=== PATIENT | female | born 1945 | race Caucasian/White ===

== ENCOUNTER 2016-06-14 14:10 | Inpatient (IN) | payer MEDICARE ==
[~2016-06-14] VITALS: Ht 152.4 cm; Wt 63.5 kg
[~2016-06-14 14:10] MED LIST: CALC.25 PO; CALCTAB54 PO; CARD120C4 PO; CITA40 PO; FERR65TA PO; GABA100C4 PO; HYDRO PO; LACT PO; LOPE2TAB3 PO; OMEP20TA PO; ONDA8 PO; OXYC10 PO; RIVA20 PO; SUPETAB30 PO; TETR1CAP PO; XANA0.25 PO
[2016-06-14 16:00] VITALS: BP 140/67; PULSE 75; RESP 16; TEMP 96.9; O2SAT 93
--- NOTE | 2016-06-14 16:24 | PD.CAR.PN ---
CVT Progress Note Subjective/Hospital Course: 70-year-old female with a complex medical and surgical history of peripheral vascular disease and multiple related problems presents now status post BK amputation about a month half ago. Patient went to skilled nursing and apparently braced herself on the stump several times in bed in hit it against either floor or the chair not quite clear. Part of the stump opened up and at this point patient is dehiscence of skin deeper tissue seemed to be still intact. Patient will undergo debridement of the stump with wound VAC placement. Janice Olvera MD Jun 14, 2016 16:24
[2016-06-14] MEDS: SODIUM CHLOR 0.9% 1000 ML INJ 1,000 ML IV SCH (17:07)
--- NOTE | 2016-06-14 17:27 | PD.CONS ---
HPI Service [facility] Hospitalists Consult Requested By Dr. Olvera Reason for Consult Medical management Primary Care Physician Kathy Byrnes MD Diagnoses: (1) Infection of amputation stump (2) Enterocutaneous fistula (3) HTN (hypertension) History of Present Illness The patient is a 70-year-old female with a medical history significant for ischemic bowel with resection and development of chronic enterocutaneous fistula , asthma, depression, COPD, severe peripheral vascular disease status post left BKA. The patient was discharged from the hospital on 06/06/16 to a long term facility for rehabilitation. The stitches on the left stump were taken out 2 weeks ago. She reports that the wound has been opening up when she participated with physical therapy. She returned today due to wound dehiscence and infection. She was admitted by the vascular surgery service, Dr. Hill. Hospitalist service consulted for management of her complex medical issues noted above. The patient is seen in her room. She reports feeling anxious and requesting Xanax. She denies abdominal pain. She reports that the chronic enterocutaneous fistula is a lot smaller. Not draining as much. She denies any fevers. No shortness of breath or chest pain. Review of Systems Constitutional: DENIES: Fever, Chills Ears, nose, mouth, throat: DENIES: Oral lesions Respiratory: DENIES: Cough, Shortness of breath Cardiovascular: DENIES: Chest pain Gastrointestinal: DENIES: Nausea, Vomiting Genitourinary: COMPLAINS OF: Urinary incontinence Musculoskeletal: COMPLAINS OF: Joint pain Neurologic: DENIES: Headache Psychiatric: COMPLAINS OF: Anxiety Past Family Social History Allergies: Coded Allergies: Levaquin (Verified Allergy, Severe, Edema, 05/29/16) Penicillin (Unverified Allergy, Intermediate, hives, 03/10/16) Sulfa (Unverified Allergy, Intermediate, hives, 03/10/16) Past Medical History Ischemic Bowel w/ Resection and development of Enterocutaneous Fistula Short gut syndrome Asthma Depression and COPD Past Surgical History Bowel Resection 11/13/15 and 11/26/15 Left BKA Right Mastectomy Hysterectomy, Reported Medications Reported Meds & Active Scripts Active Cardizem CD 120 mg (Diltiazem CD 120 mg) 120MG/24 Cap 1 Cap PO DAILY 30 Days Tetracycline HCl 250 Mg Cap 250 Mg PO Q6HR 10 Days Gabapentin 100 Mg Cap 100 Mg PO HS 30 Days Celexa 40 Mg Tab (Citalopram Hydrobromide) 40 Mg Tab 40 Mg PO DAILY 30 Days Xanax 0.25 Mg (Alprazolam) Alprazolam 0.25 mg Tab 0.125 Mg PO Q6H PRN Rocaltrol (Calcitriol) 0.25 Mcg Cap 0.25 Mcg PO DAILY 30 Days Xarelto 20 Mg Tab (Rivaroxaban) 20 Mg Tab 20 Mg PO DAILY 30 Days OxyCONTIN ER (Oxycodone HCl) 10 Mg Tabcr 20 Mg PO Q12HR Dilaudid 2 Mg Tab (Hydromorphone Hcl) 2 Mg Tab 2 Mg PO Q4H PRN Dilaudid 4 Mg Tab (Hydromorphone Hcl) 4 Mg Tab 4 Mg PO Q4H PRN Reported Loperamide A-D (Loperamide HCl) 2 Mg Tab 2 Mg PO Q6H PRN Omeprazole 20 mg (Omeprazole) 20 Mg Tab 20 Mg PO BID Calcium 500 (Calcium-Magnesium W/ Vitamin D) Tab 1 Tab PO BID Lactinex (Lactobacillus Acidophilus) 1 Tab Tab 1 Tab PO TID Theragran M (Multivitamins/Minerals Therapeutic) 1 Tab Tab 1 Tab PO DAILY Zofran 8 Mg Tab (Ondansetron Hcl) 8 Mg Tab 8 Mg PO Q6HR PRN Feosol (Ferrous Sulfate) 65 Mg Tab 325 Mg PO DAILY Family History Reviewed and noncontributory Social History Patient denies tobacco or alcohol use. Physical Exam Vital Signs Vital Signs Date Time Temp Pulse Resp B/P Pulse Ox O2 Delivery O2 Flow Rate FiO2 06/14/16 16:00 96.9 75 16 140/67 93 Physical Exam GENERAL: Chronically ill-appearing patient. SKIN: Abdomen with 2 small enterocutaneous fistulas, minimal drainage. HEAD: Atraumatic. Normocephalic. No temporal or scalp tenderness. EYES: Pupils equal round and reactive. Extraocular motions intact. No scleral icterus. No injection or drainage. ENT: Nose without bleeding, purulent drainage or septal hematoma. Throat without erythema, tonsillar hypertrophy or exudate. Uvula midline. Airway patent. NECK: Trachea midline. No JVD or lymphadenopathy. Supple, nontender, no meningeal signs. CARDIOVASCULAR: Regular rate and rhythm without murmurs, gallops, or rubs. RESPIRATORY: Clear to auscultation. Breath sounds equal bilaterally. No wheezes , rales, or rhonchi. GASTROINTESTINAL: Abdomen soft, non-tender, nondistended. No hepato-splenomegaly , or palpable masses. No guarding. MUSCULOSKELETAL: Left BKA wound dehiscence, large area of eschar and surrounding macerated tissue and cellulitis. Very tender NEUROLOGICAL: Awake and alert. Normal speech. Assessment and Plan Problem List: (1) Infection of amputation stump Status: Acute (2) Enterocutaneous fistula Status: Chronic (3) Hypercoagulable state Status: Acute (4) HTN (hypertension) Status: Acute (5) Anxiety about health Status: Acute Assessment and Plan he patient is a 70-year-old female with a medical history significant for ischemic bowel with resection and development of chronic enterocutaneous fistula , asthma, depression, COPD, severe peripheral vascular disease status post left BKA. The patient was discharged from the hospital on 06/06/16 to a long term facility for rehabilitation. The stitches on the left stump were taken out 2 weeks ago. She reports that the wound has been opening up when she participated with physical therapy. She returned today due to wound dehiscence and infection. She was admitted by the vascular surgery service, Dr. Hill for debridement. Infected left stump: Patient status post BKA on 05/02/16. - Surgery following. Plan for debridement tomorrow. - On aztreonam and vancomycin per surgery. May need infectious disease consulted for prolonged antibiotics is anticipated based on intraoperative findings. - Pain control. Hypercoagulable state: History of ischemic bowel and severe peripheral vascular disease. - Xarelto on hold. Surgery planned for tomorrow. Will need to restart once cleared by surgery. Anxiety and depression: - Continue Celexa and Xanax. COPD: Breathing treatments as needed. GERD: Continue PPI GI prophylaxis: PPI. Stool softener PRN constipation. DVT PPx: SCD on RLE Extensive review of previous records. Labs pending at the time of this dictation. Will advise RN to call with any abnormalities. Manolo Holm MD Jun 14, 2016 17:27 DVT prophylaxis patient on IV heparin Manolo Holm MD Jun 14, 2016 17:27
[2016-06-14] MEDS ORDERED: PILL SPLITTER OTHER PRN (18:00)
[2016-06-14] MEDS ORDERED: Vancomycin Consult Pharmacy XX SCH (18:00)
[2016-06-14] MEDS ORDERED: VANCOMYCIN 500 MG/NS 100 ML IV ONE ×2 (18:00)
[2016-06-14] MEDS ORDERED: TETRACYCLINE HCL 250 MG CAP PO SCH (18:00)
[2016-06-14] MEDS: LACTOBACILLUS ACIDOPHILUS TAB PO SCH (18:05)
[2016-06-14] MEDS: ALPRAZolam 0.25 MG TAB PO PRN (18:05)
[2016-06-14 19:01] LABS: AUTOMATED NEUTROPHIL # 8.2 TH/MM3 (1.8-7.7); BASOPHIL # 0.1 TH/MM3 (0-0.2); BASOPHIL % 0.6 % (0.0-2.0); EOSINOPHIL # 0.2 TH/MM3 (0-0.4); EOSINOPHIL % 1.8 % (0.0-4.0); HEMATOCRIT 34.6 % (35.0-46.0); HEMO FLAGS DIFF FINAL; LYMPH % 21.1 % (9.0-44.0); LYMPHOCYTE # 2.5 TH/MM3 (1.0-4.8); MEAN CELL VOLUME 90.9 FL (80.0-100.0); MEAN CORPUSCULAR HEMOGLOBIN 29.5 PG (27.0-34.0); MEAN CORPUSCULAR HGB CONC 32.5 % (32.0-36.0); MONO % 6.5 % (0.0-8.0); PLATELET COUNT 517 TH/MM3 (150-450); RED BLOOD COUNT 3.81 MIL/MM3 (4.00-5.30); RED CELL DISTRIBUTION WIDTH 22.9 % (11.6-17.2); WHITE BLOOD COUNT 11.7 TH/MM3 (4.0-11.0)
[2016-06-14 19:17] LABS: APTT (PATIENT) 34.1 SEC (22.6-28.8); CALCIUM-PROTEIN CORRECTED 7.8 MG/DL (8.5-10.1); TOTAL BILIRUBIN ADULT 0.2 MG/DL (0.2-1.0)
[2016-06-14 20:00] VITALS: BP 122/62; PULSE 92; RESP 24; TEMP 100.2; O2SAT 95
[2016-06-14] MEDS: AZTREONAM 1,000 MG/NS 100 ML IV SCH ×2 (20:53)
[2016-06-14] MEDS: CALCIUM/VITAMIN D 250 MG/125 U TAB PO SCH (20:55)
[2016-06-14] MEDS: GABAPENTIN 100 MG CAP PO SCH (20:55)
[2016-06-14] MEDS: PANTOPRAZOLE SOD 20 MG DELAYED RELEASE TAB PO SCH (20:55)
[2016-06-14] MEDS: oxyCODONE/ACETAMINOPHEN 5 MG/325 MG TAB PO PRN (20:56)
[2016-06-14] MEDS: SODIUM CHLORIDE 0.9% FLUSH 5 ML FLUSH IV FLUSH SCH (20:56)
[2016-06-15] VITALS: BP 122/56; PULSE 77; RESP 20; TEMP 98.6; O2SAT 91
[2016-06-15] MEDS: AZTREONAM 1,000 MG/NS 100 ML IV SCH ×6 (04:37→21:02)
[2016-06-15 06:00] VITALS: BP 134/70; PULSE 92; RESP 20; TEMP 96.5; O2SAT 91
[2016-06-15 08:00] VITALS: BP 127/64; PULSE 87; RESP 18; TEMP 98.5; O2SAT 93
[2016-06-15] MEDS ORDERED: VANCOMYCIN INJ 600 MG in SODIUM CHLOR 0.9% 250 ML INJ 250 ML IV SCH (08:00)
[2016-06-15] MEDS: LACTOBACILLUS ACIDOPHILUS TAB PO SCH ×3 (08:16→17:36)
[2016-06-15] MEDS: ALPRAZolam 0.25 MG TAB PO PRN (08:16)
[2016-06-15] MEDS: PANTOPRAZOLE SOD 20 MG DELAYED RELEASE TAB PO SCH ×2 (08:16→21:04)
[2016-06-15] MEDS: DILTIAZEM-CD 120 MG CAP ER PO SCH (08:16)
[2016-06-15] MEDS: CALCIUM/VITAMIN D 250 MG/125 U TAB PO SCH ×2 (08:16→21:04)
[2016-06-15] MEDS: FERROUS SULFATE 325 MG (65 MG ELEMENTAL IRON) TAB PO SCH (08:17)
[2016-06-15] MEDS: CALCITRIOL 0.25 MCG CAP PO SCH (08:17)
[2016-06-15] MEDS: CITALOPRAM HYDROBROMIDE 40 MG TAB PO SCH (08:17)
[2016-06-15] MEDS: SODIUM CHLORIDE 0.9% FLUSH 5 ML FLUSH IV FLUSH SCH ×2 (08:27→21:00)
[2016-06-15] MEDS ORDERED: MULTIVITAMINS/MINERALS THERAPEUTIC TAB PO SCH (09:00)
[2016-06-15] MEDS ORDERED: DILTIAZEM-CD 120 MG CAP ER PO SCH (09:00)
--- NOTE | 2016-06-15 09:56 | EKG ---
Date Performed: 06/14/2016 Time Performed: 19:57:57 PTAGE: 70 years EKG: Sinus rhythm NONSPECIFIC ST & T-WAVE ABNORMALITY ABNORMAL ECG PREVIOUS TRACING : 05/05/2016 13.59 Since previous tracing, no significant change noted DOCTOR: Thor Granados Interpretating Date/Time 06/15/2016 09:54:32
[2016-06-15] MEDS ORDERED: BUPIVACAINE HCL PF 0.5% 30 ML VIAL ONE (10:23)
[2016-06-15] MEDS ORDERED: BACITRACIN TOP OINT 15 GM TUBE ONE (10:23)
[2016-06-15] MEDS ORDERED: ACETAMINOPHEN 1000 MG/100 ML VIAL IV ONE (10:29)
[2016-06-15] MEDS ORDERED: GENTAMICIN SULFATE 80 MG/2 ML VIAL ONE (10:30)
[2016-06-15] MEDS ORDERED: *morphine SULFATE 8 MG/ML PERIprocedure ONLY ONE ×2 (11:56→12:03)
[2016-06-15 12:00] VITALS: BP 104/53; PULSE 86; RESP 16; TEMP 97.2; O2SAT 91
[2016-06-15] MEDS: MULTIVITAMIN TAB PO SCH (12:00)
[2016-06-15] MEDS ORDERED: ONDANSETRON HCL 4 MG/2 ML VIAL IV PUSH ONE (12:00)
[2016-06-15] MEDS ORDERED: PROPOFOL 200 MG/20 ML AMP IV ONE (12:00)
[2016-06-15] MEDS ORDERED: PHENYLEPH/NS 1000 MCG/10 ML SYR IV ONE (12:00)
[2016-06-15] MEDS: SODIUM CHLOR 0.9% 1000 ML INJ 1,000 ML IV SCH (12:35)
[2016-06-15] MEDS ORDERED: DO NOT ADM ANY ANTICOAGULANT DRUGS XX PRN (12:45)
[2016-06-15] MEDS: oxyCODONE/ACETAMINOPHEN 5 MG/325 MG TAB PO PRN ×2 (13:58→19:11)
[2016-06-15] MEDS: RIVAROXABAN 20 MG TAB PO SCH (13:58)
[2016-06-15] MEDS ORDERED: MIDAZOLAM HCL 2 MG/2 ML VIAL ONE (14:13)
[2016-06-15] MEDS: HYDROmorphone HCL PF 1 MG/ML VIAL IV PUSH PRN ×2 (14:35→21:06)
[2016-06-15 16:00] VITALS: BP 126/70; PULSE 87; RESP 16; TEMP 96.8; O2SAT 91
--- NOTE | 2016-06-15 18:32 | HHI.PR ---
Subjective Remarks She reports that her LLE pain uncontrolled. Discussed with RN. No shortness of breath or chest pain. She is eating well. Status post debridement. I added IV Dilaudid. Objective Vitals Vital Signs Date Time Temp Pulse Resp B/P Pulse Ox O2 Delivery O2 Flow Rate FiO2 06/15/16 12:30 97.8 105 16 112/64 93 Nasal Cannula 3 06/15/16 12:15 108 16 124/68 94 Nasal Cannula 3 06/15/16 12:00 97.2 86 16 104/53 91 06/15/16 12:00 107 16 133/69 93 Nasal Cannula 3 06/15/16 12:00 Room Air 06/15/16 11:47 97.4 95 14 138/81 94 Nasal Cannula 3 06/15/16 08:00 Room Air 06/15/16 08:00 98.5 87 18 127/64 93 06/15/16 06:00 96.5 92 20 134/70 91 06/15/16 00:00 98.6 77 20 122/56 91 06/14/16 20:00 100.2 92 24 122/62 95 06/14/16 19:45 Room Air I/O 06/14/16 06/14/16 06/14/16 06/15/16 06/15/16 06/15/16 07:00 15:00 23:00 07:00 15:00 23:00 Intake Total 775 ml Output Total 10 ml Balance 765 ml Intake IV Total 75 ml Other 700 ml Output Urine Total 0 ml Estimated Blood Loss 10 ml # Voids 1 1 # Bowel Movements 1 2 Result Diagram: 06/14/16 18206/14/161824 Objective Remarks GENERAL: Chronically ill-appearing patient. SKIN: Abdomen with 2 small enterocutaneous fistulas, minimal drainage. CARDIOVASCULAR: Regular rate and rhythm without murmurs, gallops, or rubs. RESPIRATORY: Clear to auscultation. Breath sounds equal bilaterally. No wheezes , rales, or rhonchi. GASTROINTESTINAL: Abdomen soft, non-tender, nondistended. No hepato-splenomegaly , or palpable masses. No guarding. MUSCULOSKELETAL: Left BKA wound vac in place. Very tender NEUROLOGICAL: Awake and alert. Normal speech. Procedures Left stump debridement by Dr. Hill on 06/15/16 A/P Problem List: (1) Infection of amputation stump Status: Acute (2) Enterocutaneous fistula Status: Chronic (3) Hypercoagulable state Status: Acute (4) HTN (hypertension) Status: Acute (5) Anxiety about health Status: Acute Assessment and Plan The patient is a 70-year-old female with a medical history significant for ischemic bowel with resection and development of chronic enterocutaneous fistula , asthma, depression, COPD, severe peripheral vascular disease status post left BKA. The patient was discharged from the hospital on 06/06/16 to a residential facility for rehabilitation. The stitches on the left stump were taken out 2 weeks ago. She reports that the wound has been opening up when she participated with physical therapy. She returned due to wound dehiscence and infection. She was admitted by the vascular surgery service, Dr. Hill for debridement. Infected left stump: Patient status post BKA on 05/02/16. - Surgery following. S/P debridement. Wound cultures pending - On aztreonam and vancomycin per surgery. May need infectious disease consulted for prolonged antibiotics based on intraoperative findings. No report yet. Defer to primary team - Pain not well controlled. Dilaudid IV added to help with pain. Hypercoagulable state: History of ischemic bowel and severe peripheral vascular disease. - Xarelto restarted Anxiety and depression: - Continue Celexa and Xanax. Hypokalemia: Replace and monitor. COPD: Breathing treatments as needed. GERD: Continue PPI GI prophylaxis: PPI. Stool softener PRN constipation. DVT PPx: Manolo Chahal MD Jun 15, 2016 18:32
[2016-06-15] MEDS ORDERED: POTASSIUM CHLORIDE 10 MEQ CONTROLLED RELEASE TAB PO ONE (18:45)
[2016-06-15 20:00] VITALS: BP 110/57; PULSE 76; RESP 18; TEMP 97.8; O2SAT 94
[2016-06-15] MEDS: GABAPENTIN 100 MG CAP PO SCH (21:04)
[2016-06-15] MEDS: VANCOMYCIN INJ 750 MG in SODIUM CHLOR 0.9% 250 ML INJ 250 ML IV SCH (21:13)
[2016-06-15] MEDS: LOPERAMIDE HCL 2 MG CAP PO PRN (23:51)
[2016-06-16] VITALS: BP 132/63; PULSE 77; RESP 18; TEMP 97.2; O2SAT 92
[2016-06-16] MEDS: oxyCODONE/ACETAMINOPHEN 5 MG/325 MG TAB PO PRN ×6 (01:03→23:28)
[2016-06-16] MEDS: SODIUM CHLOR 0.9% 1000 ML INJ 1,000 ML IV SCH ×2 (02:00→19:52)
[2016-06-16] MEDS: HYDROmorphone HCL PF 1 MG/ML VIAL IV PUSH PRN ×5 (02:01→19:49)
[2016-06-16 04:00] VITALS: BP 113/56; PULSE 71; RESP 19; TEMP 96.7; O2SAT 93
[2016-06-16] MEDS: AZTREONAM 1,000 MG/NS 100 ML IV SCH ×6 (04:30→19:48)
[2016-06-16] MEDS ORDERED: PHARMACY ORDERED LAB XX ONE (07:45)
[2016-06-16 08:00] VITALS: BP 119/56; PULSE 76; RESP 18; TEMP 97.7; O2SAT 91
[2016-06-16 08:39] LABS: MEAN CELL VOLUME 90.3 FL (80.0-100.0); MEAN CORPUSCULAR HEMOGLOBIN 29.3 PG (27.0-34.0); MEAN CORPUSCULAR HGB CONC 32.5 % (32.0-36.0); PLATELET COUNT 427 TH/MM3 (150-450); RED BLOOD COUNT 3.43 MIL/MM3 (4.00-5.30); RED CELL DISTRIBUTION WIDTH 22.6 % (11.6-17.2); REVIEW FLAG FINAL; WHITE BLOOD COUNT 6.7 TH/MM3 (4.0-11.0)
[2016-06-16] MEDS: RIVAROXABAN 20 MG TAB PO SCH (08:49)
[2016-06-16] MEDS: FERROUS SULFATE 325 MG (65 MG ELEMENTAL IRON) TAB PO SCH (08:49)
[2016-06-16] MEDS: PANTOPRAZOLE SOD 20 MG DELAYED RELEASE TAB PO SCH ×2 (08:49→19:48)
[2016-06-16] MEDS: VANCOMYCIN INJ 750 MG in SODIUM CHLOR 0.9% 250 ML INJ 250 ML IV SCH (08:50)
[2016-06-16] MEDS: MULTIVITAMIN TAB PO SCH (08:50)
[2016-06-16] MEDS: CALCITRIOL 0.25 MCG CAP PO SCH (08:50)
[2016-06-16] MEDS: CALCIUM/VITAMIN D 250 MG/125 U TAB PO SCH ×2 (08:50→19:49)
[2016-06-16] MEDS: DILTIAZEM-CD 120 MG CAP ER PO SCH (08:50)
[2016-06-16] MEDS: CITALOPRAM HYDROBROMIDE 40 MG TAB PO SCH (08:50)
[2016-06-16] MEDS: LACTOBACILLUS ACIDOPHILUS TAB PO SCH ×3 (08:50→17:32)
[2016-06-16] MEDS: SODIUM CHLORIDE 0.9% FLUSH 5 ML FLUSH IV FLUSH PRN (08:53)
[2016-06-16] MEDS: SODIUM CHLORIDE 0.9% FLUSH 5 ML FLUSH IV FLUSH SCH ×2 (08:53→19:52)
[2016-06-16 09:13] LABS: BICARBONATE 27.8 MEQ/L (21.0-32.0); POTASSIUM 3.2 MEQ/L (3.5-5.1)
[2016-06-16 09:43] LABS: CALCIUM-PROTEIN CORRECTED 8.2 MG/DL (8.5-10.1)
[2016-06-16 12:00] VITALS: BP 132/77; PULSE 72; RESP 16; TEMP 96; O2SAT 93
--- NOTE | 2016-06-16 13:52 | PD.CAR.PN ---
CVT Progress Note Subjective/Hospital Course: 70-year-old female with a complex medical and surgical history of peripheral vascular disease and multiple related problems presents now status post BK amputation about a month half ago. Patient went to group home and apparently braced herself on the stump several times in bed in hit it against either floor or the chair not quite clear. Part of the stump opened up and at this point patient is dehiscence of skin deeper tissue seemed to be still intact. 06/16/16 Patient underwent yesterday debridement of the stump with wound VAC placement. The dehiscence is fortunately superficial involving skin and muscle in this as been debrided successfully while the rest of the tissues of bleeding and are viable. Wound VAC has been placed Cultures have been reviewed and antibiotics can be adjusted by medicine as appropriate We'll continue current care and patient should be able to go to group home with a wound VAC by Sunday Patient's nutritional status is very poor with a low albumen and prealbumin level and therefore nutritional evaluation and recommendations are requested I believe the patient is not taking sufficient by mouth in the group home and may need supplemental enteral or parenteral feedings at this point Objective: Vital Signs Date Time Temp Pulse Resp B/P Pulse Ox O2 Delivery O2 Flow Rate FiO2 06/16/16 08:10 Room Air 06/16/16 04:00 96.7 71 19 113/56 93 06/16/16 00:00 97.2 77 18 132/63 92 06/15/16 20:00 97.8 76 18 110/57 94 06/15/16 19:45 Room Air 06/15/16 16:00 96.8 87 16 126/70 91 Labs: Laboratory Tests Test 06/16/16 08:28 White Blood Count 6.7 TH/MM3 (4.0-11.0) Red Blood Count 3.43 MIL/MM3 (4.00-5.30) Hemoglobin 10.1 GM/DL (11.6-15.3) Hematocrit 31.0 % (35.0-46.0) Mean Corpuscular Volume 90.3 FL (80.0-100.0) Mean Corpuscular Hemoglobin 29.3 PG (27.0-34.0) Mean Corpuscular Hemoglobin 32.5 % Concent (32.0-36.0) Red Cell Distribution Width 22.6 % (11.6-17.2) Platelet Count 427 TH/MM3 (150-450) Mean Platelet Volume 7.5 FL (7.0-11.0) Sodium Level 144 MEQ/L (136-145) Potassium Level 3.2 MEQ/L (3.5-5.1) Chloride Level 110 MEQ/L (98-107) Carbon Dioxide Level 27.8 MEQ/L (21.0-32.0) Anion Gap 6 MEQ/L (5-15) Blood Urea Nitrogen 10 MG/DL (7-18) Creatinine 0.40 MG/DL (0.50-1.00) Estimat Glomerular Filtration 158 ML/MIN Rate (>89) Random Glucose 77 MG/DL (74-106) Calcium Level 7.1 MG/DL (8.5-10.1) Protein Corrected Calcium 8.2 MG/DL (8.5-10.1) Total Protein 5.0 GM/DL (6.4-8.2) Vancomycin Level Trough 18.2 MCG/ML (5.0-10.0) Result Diagram: 06/16/16 0828 06/16/16 0828 Janice Olvera MD Jun 16, 2016 13:52
--- NOTE | 2016-06-16 14:41 | MH ---
cc: SARA JOSE MD DATE OF ADMISSION: 06/14/[address] Jose. REASON FOR ADMISSION Dehiscence of the left BKA stump status post trauma. 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 The patient was in the hospital for prolonged period of time, was transferred to the [facility] with a well-healing stump. Apparently, the patient was raising herself with the stump on the mattress and then hit the stump and it just fell open. The patient now comes to my office and is being admitted to the hospital for debridement of the stump. PAST MEDICAL HISTORY Past medical history is complex and can be found on the chart. PAST SURGICAL HISTORY 1. Ischemic bowel resection. 2. Short bowel syndrome. 3. Asthma. 4. Depression. 5. Bowel resection. 6. BKA. 7. Mastectomy. 8. Hysterectomy. MEDICATION Medications can be found on the record. PHYSICAL EXAMINATION GENERAL: A pleasant 70-year-old lady in no acute distress. HEENT: Normocephalic. No trauma to the head. Pupils equally reactive. Extraocular muscles intact. The patient appears to be pale and ill. NECK: Bilateral carotid pulses. No bruits. CHEST: Bilateral breath sounds, decreased over both lung chaney consistent with COPD. HEART: Regular rhythm. ABDOMEN: Soft. Active bowel sounds. Enterocutaneous fistula is all but healed and there is minimal staining of the dressing in one area. EXTREMITIES: The patient has bilateral femoral pulses and dopplerable distal pulse on the right side with small necrotic area on the toe. On the left side the patient has a BKA stump, tissue appears to be well-perfused, however, the front of the stump where there was a closure is now dehisced. The patient has basically no healing potential in addition with her trauma to the stump, this is the result. At this point the patient will be taken to the operating room for a debridement of the stump and wound vac placement. She also requires evaluation by the nutritional service and in the face of her inadequate p.o. intake may require parenteral nutrition on a longer term basis. Inesbocaden MÉNDEZ/SOBIAL /1:54 PM /2:27 PM
[2016-06-16] MEDS: GABAPENTIN 100 MG CAP PO SCH (19:49)
--- NOTE | 2016-06-16 19:49 | HHI.PR ---
Subjective Remarks pleasant in nad concerned about this frequent infection Objective Vitals Vital Signs Date Time Temp Pulse Resp B/P Pulse Ox O2 Delivery O2 Flow Rate FiO2 06/16/16 16:00 Room Air 06/16/16 12:00 96.0 72 16 132/77 93 06/16/16 12:00 Room Air 06/16/16 08:10 Room Air 06/16/16 08:00 97.7 76 18 119/56 91 06/16/16 04:00 96.7 71 19 113/56 93 06/16/16 00:00 97.2 77 18 132/63 92 06/15/16 20:00 97.8 76 18 110/57 94 I/O 06/15/16 06/15/16 06/15/16 06/16/16 06/16/16 06/16/16 07:00 15:00 23:00 07:00 15:00 23:00 Intake Total 1135 ml 360 ml 0 ml 600 ml Output Total 110 ml 150 ml 150 ml Balance 1025 ml 360 ml -150 ml 450 ml Intake Oral 360 ml 360 ml 0 ml 600 ml IV Total 75 ml Other 700 ml Output Urine Total 100 ml 150 ml 150 ml Estimated Blood Loss 10 ml # Voids 1 2 # Bowel Movements 2 0 3 0 2 Result Diagram: 06/16/1682706/16/16827 Objective Remarks GENERAL: aao , in nad SKIN: gauze, minimal drainage. CARDIOVASCULAR: Regular rate and rhythm without murmurs, gallops, or rubs. RESPIRATORY: Clear to auscultation. Breath sounds equal bilaterally. No wheezes , rales, or rhonchi. GASTROINTESTINAL: Abdomen soft, non-tender, nondistended. No hepato-splenomegaly , or palpable masses. No guarding. MUSCULOSKELETAL: Left BKA wound vac in place. NEUROLOGICAL: Awake and alert. Normal speech. Procedures Left stump debridement by Dr. Hill on 06/15/16 A/P Problem List: (1) Infection of amputation stump Status: Acute (2) Enterocutaneous fistula Status: Chronic (3) Hypercoagulable state Status: Acute (4) HTN (hypertension) Status: Acute (5) Anxiety about health Status: Acute Assessment and Plan The patient is a 70-year-old female with a medical history significant for ischemic bowel with resection and development of chronic enterocutaneous fistula , asthma, depression, COPD, severe peripheral vascular disease status post left BKA. The patient was discharged from the hospital on 06/06/16 to a long term facility for rehabilitation. The stitches on the left stump were taken out 2 weeks ago. She reports that the wound has been opening up when she participated with physical therapy. She returned due to wound dehiscence and infection. She was admitted by the vascular surgery service, Dr. Hill for debridement. Infected left stump: Patient status post BKA on 05/02/16. - Surgery following. S/P debridement. Follow wound culture, monitor temperature - On aztreonam and vancomycin per surgery. Infectious disease consult - Pain not well controlled. Dilaudid IV added to help with pain. Hypercoagulable state: History of ischemic bowel and severe peripheral vascular disease. - Xarelto restarted Anxiety and depression: - Continue Celexa and Xanax. Hypokalemia: Replace and monitor. COPD: Breathing treatments as needed. GERD: Continue PPI GI prophylaxis: PPI. Stool softener PRN constipation. DVT PPx: Lashonda Conley MD Jun 16, 2016 19:48 Lashonda Guzman MD Jun 16, 2016 19:48
[2016-06-16 20:00] VITALS: BP 135/63; PULSE 78; RESP 18; TEMP 96.9; O2SAT 92
[2016-06-17] VITALS: BP 117/58; PULSE 70; RESP 18; TEMP 97.3; O2SAT 93
[2016-06-17] MEDS: HYDROmorphone HCL PF 1 MG/ML VIAL IV PUSH PRN ×4 (00:35→20:54)
[2016-06-17] MEDS: ALPRAZolam 0.25 MG TAB PO PRN ×2 (02:44→20:58)
[2016-06-17] MEDS ORDERED: VANCOMYCIN INJ 750 MG in SODIUM CHLOR 0.9% 250 ML INJ 250 ML IV SCH (03:00)
[2016-06-17] MEDS: oxyCODONE/ACETAMINOPHEN 5 MG/325 MG TAB PO PRN ×3 (04:11→14:17)
[2016-06-17] MEDS: AZTREONAM 1,000 MG/NS 100 ML IV SCH ×4 (04:11→11:55)
[2016-06-17 04:30] VITALS: BP 102/55; PULSE 85; RESP 20; TEMP 97.8; O2SAT 92
[2016-06-17 08:00] VITALS: BP 115/58; PULSE 78; RESP 17; TEMP 97.2; O2SAT 92
[2016-06-17] MEDS: PANTOPRAZOLE SOD 20 MG DELAYED RELEASE TAB PO SCH ×2 (08:41→20:55)
[2016-06-17] MEDS: RIVAROXABAN 20 MG TAB PO SCH (08:42)
[2016-06-17] MEDS: CITALOPRAM HYDROBROMIDE 40 MG TAB PO SCH (08:42)
[2016-06-17] MEDS: CALCIUM/VITAMIN D 250 MG/125 U TAB PO SCH ×2 (08:42→20:55)
[2016-06-17] MEDS: LACTOBACILLUS ACIDOPHILUS TAB PO SCH ×3 (08:42→18:00)
[2016-06-17] MEDS: DILTIAZEM-CD 120 MG CAP ER PO SCH (08:42)
[2016-06-17] MEDS: MULTIVITAMIN TAB PO SCH (08:42)
[2016-06-17] MEDS: CALCITRIOL 0.25 MCG CAP PO SCH (08:42)
[2016-06-17] MEDS: FERROUS SULFATE 325 MG (65 MG ELEMENTAL IRON) TAB PO SCH (08:42)
[2016-06-17] MEDS: SODIUM CHLORIDE 0.9% FLUSH 5 ML FLUSH IV FLUSH SCH ×2 (08:50→20:55)
[2016-06-17] MEDS: SODIUM CHLOR 0.9% 1000 ML INJ 1,000 ML IV SCH (11:40)
[2016-06-17 12:00] VITALS: BP 121/81; PULSE 82; RESP 18; TEMP 98.3; O2SAT 96
--- NOTE | 2016-06-17 13:48 | PD.CONS ---
History of Present Illness Service Infectious disease Consult Requested By Dr Guzman Reason for Consult Evaluate patient with infected BKA stump Primary Care Physician Kathy Byrnes MD Diagnoses: History of Present Illness Patient seen and examined. Records reviewed. The patient is a 70-year-old female with a medical history significant for ischemic bowel with resection and development of chronic enterocutaneous fistula , asthma, depression, COPD, severe peripheral vascular disease status post left BKA. The patient was discharged from the hospital on 06/06/16 to a long-term facility for rehabilitation. The stitches on the left stump were taken out 2 weeks ago. She reports that the wound has been opening up when she participated with physical therapy. She returned today due to wound dehiscence and infection. She was admitted by the vascular surgery service, Dr. Hill. Hospitalist service consulted for management of her complex medical issues noted above. The patient is seen in her room. She reports feeling anxious and requesting Xanax. She denies abdominal pain. She reports that the chronic enterocutaneous fistula is a lot smaller. Not draining as much. She denies any fevers. No shortness of breath or chest pain. Review of Systems Constitutional: DENIES: Fever, Chills, Night Sweats Eyes: DENIES: Eye pain Ears, nose, mouth, throat: DENIES: Nasal discharge, Oral lesions, Throat pain, Ear Pain, Sinus Pain, Toothache Respiratory: COMPLAINS OF: Cough, DENIES: Sputum production, Shortness of breath Cardiovascular: DENIES: Chest pain, Palpitations Gastrointestinal: COMPLAINS OF: Abdominal pain, DENIES: Diarrhea, Nausea, Vomiting Genitourinary: DENIES: Urinary incontinence, Dysuria Musculoskeletal: COMPLAINS OF: Joint pain Integumentary: DENIES: Pruritus, Rash Immunologic/allergic: DENIES: Urticaria Neurologic: DENIES: Headache Psychiatric: DENIES: Anxiety Past Family Social History Allergies: Coded Allergies: Levaquin (Verified Allergy, Severe, Edema, 05/29/16) Penicillin (Unverified Allergy, Intermediate, hives, 03/10/16) Sulfa (Unverified Allergy, Intermediate, hives, 03/10/16) Past Medical History Ischemic Bowel w/ Resection and development of Enterocutaneous Fistula Short gut syndrome Asthma Depression and COPD Past Surgical History Bowel Resection 11/13/15 and 11/26/15 Left BKA Right Mastectomy Hysterectomy, Active Ordered Medications Xanax Azactam Rocaltrol [place] Celexa Cardizem Ferrous sulfate Neurontin Dilaudid Lactinex Imodium Multivitamin Zofran Percocet Protonix Xarelto Vancomycin Social History Came from the senior care Ex-smoker Denies alcohol abuse Denies drug use Physical Exam Vital Signs Vital Signs Date Time Temp Pulse Resp B/P Pulse Ox O2 Delivery O2 Flow Rate FiO2 06/17/16 12:00 98.3 82 18 121/81 96 06/17/16 09:00 Room Air 06/17/16 08:00 97.2 78 17 115/58 92 06/17/16 04:30 97.8 85 20 102/55 92 06/17/16 00:00 97.3 70 18 117/58 93 06/16/16 20:00 96.9 78 18 135/63 92 06/16/16 19:30 Room Air 06/16/16 16:00 Room Air Physical Exam GENERAL: Patient is a well-nourished, well-developed female, awake and alert, not in respiratory distress. SKIN: Cool and dry. No generalized rash and no evidence of embolic lesions. HEAD, EYES, EARS, NOSE AND THROAT : Atraumatic. Normocephalic. [place] conjunctiva. No petechia or hemorrhage. Pupils equal and round. No scleral icterus. No injection or drainage. EOM full and intact. No nasal discharge. No sinus tenderness. Moist oral mucosa. No oral lesions noted. NECK: Trachea midline. Supple and not tender, no meningeal signs. No lymphadenopathy. CARDIOVASCULAR: Regular rate and rhythm. No murmur, no rub. RESPIRATORY: Clear to auscultation on the left side with few wheezing. There is rhonchi on the right side. Breath sounds equal bilaterally. ABDOMEN: Soft, nondistended. There is a midline scar, and there are 2 small fistula opening the upper part is larger it's probably about half a centimeter, and the lower part is about a quarter centimeter. There is tenderness on palpation of the abdomen especially in the midline. No erythema noted. Bowel sounds present and normoactive. No guarding. No rebound. No organomegaly. EXTREMITIES: RLE: No clubbing, cyanosis, or edema. No calf tenderness. The big toe has a pick color to it, no warmth. LBKA stump has wound vac in place, and the medial portion has some redness and induration, and tender on palpation. No other redness noted. No lymphangitis NEUROLOGICAL: Awake and alert. Cranial nerves grossly intact. Motor grossly within normal limits. PSYCH: Calm and cooperative LINE: Peripheral IV with no evidence of infection Laboratory Date/Time Procedure Status Source Growth 06/15/16 11:17 Gram Stain - Final Complete Wound Other 06/15/16 11:17 Wound Culture - Final Complete Klebsiella Oxytoca Esbl Pos Morganella Morganii Result Diagram: 06/16/1682706/16/16827 Assessment and Plan Assessment and Plan IMPRESSION Infection LBKA stump, C/S Klebsiella ESBL+ and Morganella - S/P debridement Multiple Abx allergy - has tolerated Cephalosporins in the past PVD Previous abdominal OR for ischemic bowel, has fistula Cough, ?PNA - has known COPD RECOMMENDATION IV Zerbaxa Micro will sensitivity testing on Zerbaxa and Avycaz Stop Vancomycin Stop Azactam CXR to evaluate cough Follow C/S Monitor progress I will determine course of Abx depending on her progress I will follow along with you Thank you for this consultation Sara Greenfield MD Jun 17, 2016 13:48
--- NOTE | 2016-06-17 14:00 | HHI.PR ---
Subjective Remarks Complained off rash on her back, and vaginal itching No fever or chills Seen by [facility], plan to remove wound VAC next week as she was told by the surgeon Objective Vitals Vital Signs Date Time Temp Pulse Resp B/P Pulse Ox O2 Delivery O2 Flow Rate FiO2 06/17/16 12:00 98.3 82 18 121/81 96 06/17/16 09:00 Room Air 06/17/16 08:00 97.2 78 17 115/58 92 06/17/16 04:30 97.8 85 20 102/55 92 06/17/16 00:00 97.3 70 18 117/58 93 06/16/16 20:00 96.9 78 18 135/63 92 06/16/16 19:30 Room Air 06/16/16 16:00 Room Air I/O 06/16/16 06/16/16 06/16/16 06/17/16 06/17/16 06/17/16 06:59 14:59 22:59 06:59 14:59 22:59 Intake Total 0 ml 600 ml 360 ml 360 ml Output Total 150 ml 150 ml 200 ml 100 ml Balance -150 ml 450 ml 160 ml 260 ml Intake Oral 0 ml 600 ml 360 ml 360 ml Output Urine Total 150 ml 150 ml 100 ml 100 ml Stool Total 100 ml # Voids 2 # Bowel Movements 0 2 1 Result Diagram: 06/16/1682706/16/16827 Objective Remarks GENERAL: aao , in nad SKIN: gauze, minimal drainage. CARDIOVASCULAR: Regular rate and rhythm without murmurs, gallops, or rubs. RESPIRATORY: Clear to auscultation. Breath sounds equal bilaterally. No wheezes , rales, or rhonchi. GASTROINTESTINAL: Abdomen soft, non-tender, nondistended. No hepato-splenomegaly , or palpable masses. No guarding. MUSCULOSKELETAL: Left BKA wound vac in place. NEUROLOGICAL: Awake and alert. Normal speech. Procedures Left stump debridement by Dr. Hill on 06/15/16 A/P Problem List: (1) Infection of amputation stump Status: Acute (2) Enterocutaneous fistula Status: Chronic (3) Hypercoagulable state Status: Acute (4) HTN (hypertension) Status: Acute (5) Anxiety about health Status: Acute Assessment and Plan D/W ID The patient is a 70-year-old female with a medical history significant for ischemic bowel with resection and development of chronic enterocutaneous fistula , asthma, depression, COPD, severe peripheral vascular disease status post left BKA. The patient was discharged from the hospital on 06/06/16 to [facility]. The stitches on the left stump were taken out 2 weeks ago. She reports that the wound has been opening up when she participated with physical therapy. She returned due to wound dehiscence and infection. She was admitted by the vascular surgery service, Dr. Hill for debridement. Infection LBKA stump, C/S Klebsiella ESBL+ and Morganella. - Surgery following. S/P debridement. Follow wound culture, monitor temperature - aztreonam and vancomycin per surgery. Changed to IV Zerbaxa per ID,Micro will sensitivity testing on Zerbaxa and Avycaz , appreciate ID consult - Pain not well controlled. Dilaudid IV added to help with pain. Vaginal itching: Danni vaginitis. Will give 1 dose of Diflucan, she will need follow up as an outpatient for further workup Hypercoagulable state: History of ischemic bowel and severe peripheral vascular disease. - Xarelto restarted Anxiety and depression: - Continue Celexa and Xanax. Hypokalemia: Replace and monitor. COPD now with worsening cough: Check chest x-ray, Breathing treatments as needed. GERD: Continue PPI GI prophylaxis: PPI. Stool softener PRN constipation. DVT PPx: Xarelto PVD Previous abdominal OR for ischemic bowel, has fistula Cough, ?PNA - has known COPD Lashonda Guzman MD Jun 17, 2016 14:00
[2016-06-17] MEDS ORDERED: FLUCONAZOLE 100 MG TAB PO ONE (14:15)
--- NOTE | 2016-06-17 14:15 | PD.CAR.PN ---
CVT Progress Note Subjective/Hospital Course: 70-year-old female with a complex medical and surgical history of peripheral vascular disease and multiple related problems presents now status post BK amputation about a month half ago. Patient went to longterm and apparently braced herself on the stump several times in bed in hit it against either floor or the chair not quite clear. Part of the stump opened up and at this point patient is dehiscence of skin deeper tissue seemed to be still intact. 06/16/16 Patient underwent yesterday debridement of the stump with wound VAC placement. The dehiscence is fortunately superficial involving skin and muscle in this as been debrided successfully while the rest of the tissues of bleeding and are viable. Wound VAC has been placed Cultures have been reviewed and antibiotics can be adjusted by medicine as appropriate We'll continue current care and patient should be able to go to longterm with a wound VAC by Sunday Patient's nutritional status is very poor with a low albumen and prealbumin level and therefore nutritional evaluation and recommendations are requested I believe the patient is not taking sufficient by mouth in the longterm and may need supplemental enteral or parenteral feedings at this point 06/17/16 I reviewed the nutritional parameters and patient's prealbumin and transferrin levels a critically low indicating severe malnutrition. Patient's healing is impaired and so is the rehabilitative potential. After reviewing to nutritional recommendations once these are made, we will decide whether patient needs an Nnseba-[id number]-Spwl placed for additional parenteral nutrition for short bowel syndrome Stump is nice and clean with minimal drainage from the wound VAC Objective: Vital Signs Date Time Temp Pulse Resp B/P Pulse Ox O2 Delivery O2 Flow Rate FiO2 06/17/16 12:00 98.3 82 18 121/81 96 06/17/16 09:00 Room Air 06/17/16 08:00 97.2 78 17 115/58 92 06/17/16 04:30 97.8 85 20 102/55 92 06/17/16 00:00 97.3 70 18 117/58 93 06/16/16 20:00 96.9 78 18 135/63 92 06/16/16 19:30 Room Air 06/16/16 16:00 Room Air Result Diagram: 06/16/1682706/16/16827 Janice Olvera MD Jun 17, 2016 14:15
[2016-06-17] MEDS: LOPERAMIDE HCL 2 MG CAP PO PRN (14:17)
--- NOTE | 2016-06-17 15:07 | RADRPT ---
EXAM DATE/TIME: 06/17/2016 14:12 [facility] COMPARISON: CHEST SINGLE AP, May 28, 2016, 16:47. INDICATIONS : Cough for 3 days MEDICAL HISTORY : None. SURGICAL HISTORY : Mastectomy, right. ENCOUNTER: Initial ACUITY: 3 days PAIN SCORE: 0/10 LOCATION: Bilateral chest FINDINGS: There is consolidation and may small pleural effusion of the right lung base. Left lung appears reaso nably clear. No pneumothorax seen. Heart size stable, upper limits of normal. CONCLUSION: Right base infiltrate and small effusion. Calixto Woodruff MD on June 17, 2016 at 15:04 Board Certified Radiologist. This report was verified electronically.
[2016-06-17 16:00] VITALS: BP 119/75; PULSE 74; RESP 18; TEMP 97.8; O2SAT 92
[2016-06-17] MEDS: CEFTOLOZANE-TAZOBACTAM INJ 1,500 MG in SODIUM CHLORIDE 0.9% INJ 100 ML IV SCH ×2 (18:45→23:47)
[2016-06-17 20:00] VITALS: BP 129/59; PULSE 78; RESP 18; TEMP 97.3; O2SAT 92
[2016-06-17] MEDS: GABAPENTIN 100 MG CAP PO SCH (20:55)
[2016-06-18 00:30] VITALS: BP 122/57; PULSE 78; RESP 18; TEMP 98.3; O2SAT 92
[2016-06-18] MEDS: oxyCODONE/ACETAMINOPHEN 5 MG/325 MG TAB PO PRN ×2 (01:36→20:59)
[2016-06-18] MEDS: ALPRAZolam 0.25 MG TAB PO PRN ×3 (02:46→20:58)
[2016-06-18] MEDS: SODIUM CHLOR 0.9% 1000 ML INJ 1,000 ML IV SCH ×2 (04:20→20:57)
[2016-06-18 04:30] VITALS: BP 119/63; PULSE 85; RESP 18; TEMP 97.9; O2SAT 92
[2016-06-18 08:00] VITALS: BP 138/67; PULSE 82; RESP 16; TEMP 98.4; O2SAT 92
[2016-06-18] MEDS: RIVAROXABAN 20 MG TAB PO SCH (08:00)
[2016-06-18] MEDS: DILTIAZEM-CD 120 MG CAP ER PO SCH (08:00)
[2016-06-18] MEDS: PANTOPRAZOLE SOD 20 MG DELAYED RELEASE TAB PO SCH ×2 (08:01→20:58)
[2016-06-18] MEDS: LACTOBACILLUS ACIDOPHILUS TAB PO SCH ×3 (08:01→16:00)
[2016-06-18] MEDS: CITALOPRAM HYDROBROMIDE 40 MG TAB PO SCH (08:01)
[2016-06-18] MEDS: FERROUS SULFATE 325 MG (65 MG ELEMENTAL IRON) TAB PO SCH (08:01)
[2016-06-18] MEDS: CALCIUM/VITAMIN D 250 MG/125 U TAB PO SCH ×2 (08:01→20:58)
[2016-06-18] MEDS: CALCITRIOL 0.25 MCG CAP PO SCH (08:01)
[2016-06-18] MEDS: MULTIVITAMIN TAB PO SCH (08:01)
[2016-06-18] MEDS: HYDROmorphone HCL PF 1 MG/ML VIAL IV PUSH PRN ×2 (08:02→23:54)
[2016-06-18] MEDS: CEFTOLOZANE-TAZOBACTAM INJ 1,500 MG in SODIUM CHLORIDE 0.9% INJ 100 ML IV SCH ×3 (08:06→23:34)
[2016-06-18] MEDS: SODIUM CHLORIDE 0.9% FLUSH 5 ML FLUSH IV FLUSH SCH ×2 (08:07→20:57)
--- NOTE | 2016-06-18 09:11 | HHI.IDPN ---
Subjective Subjective Remarks Notes reviewed Temps ok Wound vac in place Dr Sergio ramirez reviewed - infection not down to bone; subcutaneous and muscle Zerbaxa and Avycaz testing pending Cough same CXR with R base infiltrate and effusion Antibiotics Zerbaxa Lines Peripheral IV Past Medical History Ischemic Bowel w/ Resection and development of Enterocutaneous Fistula Short gut syndrome Asthma Depression and COPD Past Surgical History Bowel Resection 11/13/15 and 11/26/15 Left BKA Right Mastectomy Hysterectomy, Allergies: Coded Allergies: Levaquin (Verified Allergy, Severe, Edema, 05/29/16) Penicillin (Unverified Allergy, Intermediate, hives, 03/10/16) Sulfa (Unverified Allergy, Intermediate, hives, 03/10/16) Objective . Vital Signs Date Time Temp Pulse Resp B/P Pulse Ox O2 Delivery O2 Flow Rate FiO2 06/18/16 07:44 Room Air 06/18/16 04:30 97.9 85 18 119/63 92 06/18/16 04:00 Room Air 06/18/16 00:30 98.3 78 18 122/57 92 06/18/16 00:00 Room Air 06/17/16 20:00 Room Air 06/17/16 20:00 97.3 78 18 129/59 92 06/17/16 16:00 97.8 74 18 119/75 92 06/17/16 12:00 98.3 82 18 121/81 96 06/17/16 06/17/16 06/18/16 15:00 23:00 07:00 Intake Total 750 ml 240 ml 1001 ml Output Total 120 ml Balance 750 ml 120 ml 1001 ml Intake Oral 750 ml 240 ml 240 ml IV Total 761 ml Output Urine Total 120 ml # Voids 4 3 # Bowel Movements 4 0 1 . Microbiology Date/Time Procedure Status Source Growth 06/15/16 11:17 Gram Stain - Final Complete Wound Other 06/15/16 11:17 Wound Culture - Final Complete Klebsiella Oxytoca Esbl Pos Morganella Morganii Imaging Chest X-Ray 06/17/16 0000 Signed Impressions: Service Date/Time: Friday, June 17, 2016 14:12 - CONCLUSION: Right base infiltrate and small effusion. Calixto Woodruff MD Physical Exam GENERAL: awake and alert, not in respiratory distress. SKIN: Cool and dry. No generalized rash and no evidence of embolic lesions. HEENT: [place] conjunctiva. No petechia or hemorrhage. No scleral icterus. Moist oral mucosa. NECK: Supple and not tender, no meningeal signs. No lymphadenopathy. CARDIOVASCULAR: Regular rate and rhythm. No murmur, no rub. RESPIRATORY: Clear to auscultation on the left side. There is rhonchi on the right side. ABDOMEN: Soft, nondistended. There is a midline scar, and there are 2 small fistula opening the upper part is larger it's probably about half a centimeter, and the lower part is about a quarter centimeter. There is tenderness on palpation of the abdomen especially in the midline. No erythema noted. Bowel sounds present and normoactive. No guarding. No rebound. No organomegaly. EXTREMITIES: LBKA stump has wound vac in place, and the medial portion has some redness and induration, and tender on palpation. No other redness noted. No lymphangitis NEUROLOGICAL: Grossly non-focal PSYCH: Calm and cooperative LINE: Peripheral IV with no evidence of infection Assessment & Plan Remarks IMPRESSION Infection LBKA stump, C/S Klebsiella ESBL+ and Morganella - S/P debridement Multiple Abx allergy - has tolerated Cephalosporins in the past PVD Previous abdominal OR for ischemic bowel, has fistula Cough, PNA - has known COPD - has R base infiltrate RECOMMENDATION Continue IV Zerbaxa Micro will sensitivity testing on Zerbaxa and Avycaz Monitor progress Will D/W Dr Sergio Chapman C/S Sara Greenfield MD Jun 18, 2016 09:11
[2016-06-18 12:00] VITALS: BP 119/58; PULSE 79; RESP 18; TEMP 98.5; O2SAT 93
[2016-06-18] MEDS ORDERED: PHARMACY ORDERED LAB XX ONE (14:45)
--- NOTE | 2016-06-18 15:26 | HHI.PR ---
Subjective Remarks Patient having discomfort in her lower back and buttock which is erythematous and moist, discussed with the nurse. We'll hold on the moisturizer, just to powder Awaiting wound care, may need a different mattress and to rollover in bed frequently Objective Vitals Vital Signs Date Time Temp Pulse Resp B/P Pulse Ox O2 Delivery O2 Flow Rate FiO2 06/18/16 12:00 98.5 79 18 119/58 93 06/18/16 08:00 98.4 82 16 138/67 92 06/18/16 07:44 Room Air 06/18/16 04:30 97.9 85 18 119/63 92 06/18/16 04:00 Room Air 06/18/16 00:30 98.3 78 18 122/57 92 06/18/16 00:00 Room Air 06/17/16 20:00 Room Air 06/17/16 20:00 97.3 78 18 129/59 92 06/17/16 16:00 97.8 74 18 119/75 92 I/O 06/17/16 06/17/16 06/17/16 06/18/16 06/18/16 06/18/16 07:00 15:00 23:00 07:00 15:00 23:00 Intake Total 360 ml 750 ml 240 ml 1001 ml Output Total 100 ml 120 ml Balance 260 ml 750 ml 120 ml 1001 ml Intake Oral 360 ml 750 ml 240 ml 240 ml IV Total 761 ml Output Urine Total 100 ml 120 ml # Voids 2 4 3 # Bowel Movements 1 4 0 1 Result Diagram: 06/16/1682706/16/16827 Objective Remarks GENERAL: Awake, alert, oriented, in no acute distress SKIN: Wound VAC with gauze on the left thumb, erythematous moist. Skin on the upper buttock and lower back. CARDIOVASCULAR: Regular rate and rhythm without murmurs, gallops, or rubs. RESPIRATORY: Clear to auscultation. Breath sounds equal bilaterally. No wheezes , rales, or rhonchi. GASTROINTESTINAL: Abdomen soft, non-tender, nondistended. No hepato-splenomegaly , or palpable masses. No guarding. MUSCULOSKELETAL: Left BKA wound vac in place. NEUROLOGICAL: Awake and alert. Normal speech. Procedures Left stump debridement by Dr. Hill on 06/15/16 A/P Problem List: (1) Infection of amputation stump Status: Acute (2) Enterocutaneous fistula Status: Chronic (3) Hypercoagulable state Status: Acute (4) HTN (hypertension) Status: Acute (5) Anxiety about health Status: Acute Assessment and Plan The patient is a 70-year-old female with a medical history significant for ischemic bowel with resection and development of chronic enterocutaneous fistula , asthma, depression, COPD, severe peripheral vascular disease status post left BKA. The patient was discharged from the hospital on 06/06/16 to a senior care facility for rehabilitation. The stitches on the left stump were taken out 2 weeks ago. She reports that the wound has been opening up when she participated with physical therapy. She returned due to wound dehiscence and infection. She was admitted by the vascular surgery service, Dr. Hill for debridement. Infection LBKA stump, C/S Klebsiella ESBL+ and Morganella. - Surgery following. S/P debridement. Follow wound culture, monitor temperature - aztreonam and vancomycin per surgery. Changed to IV Zerbaxa per ID,Micro will sensitivity testing on Zerbaxa and Avycaz , appreciate ID consult - Pain not well controlled. Dilaudid IV added to help with pain. Malnutrition, moderate calorie insufficiency: Consult dietitian Check prealbumin Decision for port insertion for parenteral nutrition per surgery Vaginal itching: Danni vaginitis. Will give 1 dose of Diflucan, she will need follow up as an outpatient for further workup Hypercoagulable state: History of ischemic bowel and severe peripheral vascular disease. - Xarelto restarted Anxiety and depression: - Continue Celexa and Xanax. Hypokalemia: Replace and monitor. COPD now with worsening cough: Check chest x-ray, Breathing treatments as needed. GERD: Continue PPI GI prophylaxis: PPI. Stool softener PRN constipation. DVT PPx: Xarelto PVD Previous abdominal OR for ischemic bowel, has fistula Lashonda Guzman MD Jun 18, 2016 15:26 Lashonda Guzman MD Jun 18, 2016 15:26
[2016-06-18] MEDS: LOPERAMIDE HCL 2 MG CAP PO PRN (15:54)
[2016-06-18 16:00] VITALS: BP 129/61; PULSE 67; RESP 18; TEMP 98; O2SAT 92
[2016-06-18] MEDS ORDERED: POTASSIUM CHLORIDE 10 MEQ CONTROLLED RELEASE TAB PO ONE (16:00)
[2016-06-18 20:30] VITALS: BP 139/64; PULSE 80; RESP 18; TEMP 97.1; O2SAT 93
[2016-06-18] MEDS: GABAPENTIN 100 MG CAP PO SCH (20:59)
[2016-06-19] VITALS: BP 122/60; PULSE 78; RESP 18; TEMP 97.5; O2SAT 94
[2016-06-19] MEDS: MAGNESIUM SULFATE 1 GM PREMIX 100 ML IV SCH ×2 (02:07→02:48)
[2016-06-19] MEDS: oxyCODONE/ACETAMINOPHEN 5 MG/325 MG TAB PO PRN ×4 (02:47→18:31)
[2016-06-19] MEDS: ALPRAZolam 0.25 MG TAB PO PRN ×2 (02:47→21:10)
[2016-06-19 04:30] VITALS: BP 149/72; PULSE 81; RESP 18; TEMP 97.1; O2SAT 92
[2016-06-19] MEDS: SODIUM CHLOR 0.9% 1000 ML INJ 1,000 ML IV SCH (05:25)
[2016-06-19 08:00] VITALS: BP 135/65; PULSE 77; RESP 20; TEMP 96.5; O2SAT 92
[2016-06-19] MEDS: SODIUM CHLORIDE 0.9% FLUSH 5 ML FLUSH IV FLUSH SCH ×2 (09:00→20:37)
[2016-06-19] MEDS: RIVAROXABAN 20 MG TAB PO SCH (09:00)
[2016-06-19] MEDS: DILTIAZEM-CD 120 MG CAP ER PO SCH (09:09)
[2016-06-19] MEDS: CALCIUM/VITAMIN D 250 MG/125 U TAB PO SCH ×2 (09:09→20:34)
[2016-06-19] MEDS: MULTIVITAMIN TAB PO SCH (09:10)
[2016-06-19] MEDS: CALCITRIOL 0.25 MCG CAP PO SCH (09:10)
[2016-06-19] MEDS: CITALOPRAM HYDROBROMIDE 40 MG TAB PO SCH (09:10)
[2016-06-19] MEDS: LACTOBACILLUS ACIDOPHILUS TAB PO SCH ×3 (09:10→18:31)
[2016-06-19] MEDS: FERROUS SULFATE 325 MG (65 MG ELEMENTAL IRON) TAB PO SCH (09:10)
[2016-06-19] MEDS: PANTOPRAZOLE SOD 20 MG DELAYED RELEASE TAB PO SCH ×2 (09:10→20:36)
[2016-06-19] MEDS: CEFTOLOZANE-TAZOBACTAM INJ 1,500 MG in SODIUM CHLORIDE 0.9% INJ 100 ML IV SCH (09:15)
[2016-06-19] MEDS: HYDROmorphone HCL PF 1 MG/ML VIAL IV PUSH PRN ×3 (10:47→20:38)
[2016-06-19 12:00] VITALS: BP 142/62; PULSE 79; RESP 20; TEMP 97.4; O2SAT 93
--- NOTE | 2016-06-19 13:07 | HHI.PR ---
Subjective Remarks No acute issue, I advised her to roll over in bed every 2 hours Fungal infection on the lower back Objective Vitals Vital Signs Date Time Temp Pulse Resp B/P Pulse Ox O2 Delivery O2 Flow Rate FiO2 06/19/16 08:00 96.5 77 20 135/65 92 06/19/16 04:30 97.1 81 18 149/72 92 06/19/16 04:00 Room Air 06/19/16 00:00 97.5 78 18 122/60 94 06/19/16 00:00 Room Air 06/19/16 00:00 Room Air 06/18/16 20:30 97.1 80 18 139/64 93 06/18/16 20:00 Room Air 06/18/16 16:00 98.0 67 18 129/61 92 I/O 06/18/16 06/18/16 06/18/16 06/19/16 06/19/16 06/19/16 07:00 15:00 23:00 07:00 15:00 23:00 Intake Total 1001 ml 240 ml 1949 ml Output Total 300 ml Balance 1001 ml 240 ml 1649 ml Intake Oral 240 ml 240 ml 360 ml IV Total 761 ml 1589 ml Output Urine Total 300 ml # Voids 3 3 2 # Bowel Movements 1 3 1 Result Diagram: 06/16/1682706/16/16827 Objective Remarks GENERAL: Awake, alert, oriented, in no acute distress SKIN: Wound VAC with gauze on the left thumb, erythematous moist. Skin on the upper buttock and lower back. CARDIOVASCULAR: Regular rate and rhythm without murmurs, gallops, or rubs. RESPIRATORY: Clear to auscultation. Breath sounds equal bilaterally. No wheezes , rales, or rhonchi. GASTROINTESTINAL: Abdomen soft, non-tender, nondistended. No hepato-splenomegaly , or palpable masses. No guarding. MUSCULOSKELETAL: Left BKA wound vac in place. NEUROLOGICAL: Awake and alert. Normal speech. Procedures Left stump debridement by Dr. Hill on 06/15/16 A/P Problem List: (1) Infection of amputation stump Status: Acute (2) Enterocutaneous fistula Status: Chronic (3) Hypercoagulable state Status: Acute (4) HTN (hypertension) Status: Acute (5) Anxiety about health Status: Acute Assessment and Plan The patient is a 70-year-old female with a medical history significant for ischemic bowel with resection and development of chronic enterocutaneous fistula , asthma, depression, COPD, severe peripheral vascular disease status post left BKA. The patient was discharged from the hospital on 06/06/16 to [facility] [facility]. The stitches on the left stump were taken out 2 weeks ago. She reports that the wound has been opening up when she participated with physical therapy. She returned due to wound dehiscence and infection. She was admitted by the vascular surgery service, Dr. Hill for debridement. Infection LBKA stump, C/S Klebsiella ESBL+ and Morganella. - Surgery following. S/P debridement. Follow wound culture, monitor temperature - aztreonam and vancomycin per surgery. Changed to IV Zerbaxa per ID,Micro will sensitivity testing on Zerbaxa and Avycaz , appreciate ID consult - Pain not well controlled. Dilaudid IV added to help with pain. COPD now with worsening cough and R PNA: Breathing treatments as needed. On antibiotic ID per ID Malnutrition, moderate calorie insufficiency: Consult dietitian Prealbumin 5 Decision for port insertion for parenteral nutrition per surgery Lower back fungal skin infection: Nystatin cream Vaginal itching: Danni vaginitis. Will give 1 dose of Diflucan, she will need follow up as an outpatient for further workup Hypercoagulable state: History of ischemic bowel and severe peripheral vascular disease. - Xarelto restarted Anxiety and depression: - Continue Celexa and Xanax. Hypokalemia: Replace and monitor. GERD: Continue PPI GI prophylaxis: PPI. Stool softener PRN constipation. DVT PPx: Xarelto PVD Previous abdominal OR for ischemic bowel, has fistula Lashonda Guzman MD Jun 19, 2016 13:07
--- NOTE | 2016-06-19 13:28 | PD.CAR.PN ---
CVT Progress Note Subjective/Hospital Course: 70-year-old female with a complex medical and surgical history of peripheral vascular disease and multiple related problems presents now status post BK amputation about a month half ago. [facility] to [facility] and apparently braced herself on the stump several times in bed in hit it against either floor or the chair not quite clear. Part of the stump opened up and at this point patient is dehiscence of skin deeper tissue seemed to be still intact. 06/16/16 Patient underwent yesterday debridement of the stump with wound VAC placement. The dehiscence is fortunately superficial involving skin and muscle in this as been debrided successfully while the rest of the tissues of bleeding and are viable. Wound VAC has been placed Cultures have been reviewed and antibiotics can be adjusted by medicine as appropriate We'll continue current care and patient should be able to go to [facility] with a wound VAC by Sunday Patient's nutritional status is very poor with a low albumen and prealbumin level and therefore nutritional evaluation and recommendations are requested I believe the patient is not taking sufficient by mouth in the [facility] and may need supplemental enteral or parenteral feedings at this point 06/17/16 I reviewed the nutritional parameters and patient's prealbumin and transferrin levels a critically low indicating severe malnutrition. Patient's healing is impaired and so is the rehabilitative potential. After reviewing to nutritional recommendations once these are made, we will decide whether patient needs an Fyllij-j-Myua placed for additional parenteral nutrition for short bowel syndrome Stump is nice and clean with minimal drainage from the wound VAC 06/19/16 Still awaiting nutritional consult and evaluation for patient has short gut syndrome and will probably need additional parenteral feedings. If so patient will need Hyeevh-x-Hhkr placement for additional feedings Patient is taking excellent by mouth but despite that her nutritional status is poor and hence the healing issues Left BKA stump incision is clean and wound VAC is in place with minimal drainage and will need to be changed today Awaiting wound care to change the wound VAC. Infectious disease help is much appreciated Objective: Vital Signs Date Time Temp Pulse Resp B/P Pulse Ox O2 Delivery O2 Flow Rate FiO2 06/19/16 08:00 96.5 77 20 135/65 92 06/19/16 04:30 97.1 81 18 149/72 92 06/19/16 04:00 Room Air 06/19/16 00:00 97.5 78 18 122/60 94 06/19/16 00:00 Room Air 06/19/16 00:00 Room Air 06/18/16 20:30 97.1 80 18 139/64 93 06/18/16 20:00 Room Air 06/18/16 16:00 98.0 67 18 129/61 92 Result Diagram: 06/16/16 0828 06/16/16 0828 Janice Olvera MD Jun 19, 2016 13:28
[2016-06-19] MEDS: NYSTATIN 100,000 UNIT/GM CREAM 15 GM TOPICAL SCH ×2 (15:34→20:38)
[2016-06-19 16:00] VITALS: BP 132/70; PULSE 65; RESP 20; TEMP 96.9; O2SAT 93
[2016-06-19 20:00] VITALS: BP 122/61; PULSE 67; RESP 18; TEMP 97.5; O2SAT 92
[2016-06-19] MEDS: GABAPENTIN 100 MG CAP PO SCH (20:35)
[2016-06-19] MEDS: LOPERAMIDE HCL 2 MG CAP PO PRN (20:36)
[2016-06-20] VITALS (11 sets, daily range): BP systolic 128–168; BP diastolic 65–84; PULSE 68–89; RESP 16–20; TEMP 96.6–98; O2SAT 92–99
[2016-06-20] MEDS: CEFTOLOZANE-TAZOBACTAM INJ 1,500 MG in SODIUM CHLORIDE 0.9% INJ 100 ML IV SCH ×3 (00:51→08:00)
[2016-06-20] MEDS: oxyCODONE/ACETAMINOPHEN 5 MG/325 MG TAB PO PRN (00:52)
[2016-06-20] MEDS: SODIUM CHLOR 0.9% 1000 ML INJ 1,000 ML IV SCH ×2 (05:08→23:16)
[2016-06-20] MEDS ORDERED: MIDAZOLAM HCL 5 MG/5 ML VIAL ONE (08:48)
[2016-06-20] MEDS ORDERED: fentaNYL CITRATE 250 MCG/5 ML AMP ONE (08:49)
[2016-06-20] MEDS: NYSTATIN 100,000 UNIT/GM CREAM 15 GM TOPICAL SCH ×2 (09:00→21:58)
[2016-06-20] MEDS: SODIUM CHLORIDE 0.9% FLUSH 5 ML FLUSH IV FLUSH SCH ×2 (09:00→22:36)
[2016-06-20] MEDS ORDERED: LIDOCAINE 1%/EPINEPHrine 1:100,000 SOLN 30 ML VIAL ONE (09:02)
[2016-06-20] MEDS ORDERED: VANCOMYCIN INJ 1,000 MG in SODIUM CHLOR 0.9% 250 ML INJ 250 ML IV ONE (10:00)
--- NOTE | 2016-06-20 11:32 | PD.RAD ---
Post Procedure Progress Note Pre Procedure Diagnosis: (1) Enterocutaneous fistula Post Procedure Diagnosis: (1) Enterocutaneous fistula Procedure Date: Jun 20, 2016 Supervising Radiologist: Kevan Salgado JR Proceduralist/Assist: Margaret Peters, RT(R)(), Patti Ellison RT(R)() Anesthesia: Conscious Sedation Plan of Activity Patient to Unit: [facility] Patient Condition: Good See PACS Report for procedural detail/treatment Central Venous Access Device Procedure 1 Left Internal Jugular Infusaport Placement single lumen Tamazight: 8 Findings: Port placed. In good position. Functions well. Ok to use. Plan F/U with IR or a physician in 10-14 days for a site check Jr. Damian,Kevan Trejo MD Jun 20, 2016 11:32
[2016-06-20] MEDS: LACTOBACILLUS ACIDOPHILUS TAB PO SCH ×3 (13:00→17:52)
[2016-06-20] MEDS: HYDROmorphone HCL PF 1 MG/ML VIAL IV PUSH PRN ×3 (13:39→20:49)
--- NOTE | 2016-06-20 14:42 | HHI.PR ---
Subjective Remarks Patient eating lunch from home, brought to her by a friend Denied complain, stated her back, skin rash not showing much improvement Vaginal itching relatively improving No fever or chills Objective Vitals Vital Signs Date Time Temp Pulse Resp B/P Pulse Ox O2 Delivery O2 Flow Rate FiO2 06/20/16 12:20 71 16 144/77 97 06/20/16 12:16 97.5 80 20 156/82 94 06/20/16 11:20 72 18 148/77 97 06/20/16 10:50 68 18 140/84 99 06/20/16 10:20 73 18 135/65 97 06/20/16 10:05 97.6 83 18 136/79 92 06/20/16 09:00 93 Room Air 06/20/16 08:43 97.5 80 20 156/82 94 06/20/16 04:00 96.7 82 18 133/76 94 06/20/16 00:00 96.6 89 18 128/78 93 06/19/16 20:00 Room Air 06/19/16 20:00 97.5 67 18 122/61 92 06/19/16 16:00 96.9 65 20 132/70 93 I/O 06/19/16 06/19/16 06/19/16 06/20/16 06/20/16 06/20/16 07:00 15:00 23:00 07:00 15:00 23:00 Intake Total 1949 ml 360 ml 360 ml 360 ml Output Total 300 ml Balance 1649 ml 360 ml 360 ml 360 ml Intake Oral 360 ml 360 ml 360 ml 360 ml IV Total 1589 ml Output Urine Total 300 ml # Voids 2 4 2 1 # Bowel Movements 1 4 2 0 Result Diagram: 06/16/1682706/16/16827 Objective Remarks GENERAL: Awake, alert, oriented, in no acute distress SKIN: Wound VAC with gauze on the left thumb, erythematous moist. Skin on the upper buttock and lower back. CARDIOVASCULAR: Regular rate and rhythm without murmurs, gallops, or rubs. RESPIRATORY: Clear to auscultation. Breath sounds equal bilaterally. No wheezes , rales, or rhonchi. GASTROINTESTINAL: Abdomen soft, non-tender, nondistended. No hepato-splenomegaly , or palpable masses. No guarding. MUSCULOSKELETAL: Left BKA wound vac in place. NEUROLOGICAL: Awake and alert. Normal speech. Procedures Left stump debridement by Dr. Hill on 06/15/16 A/P Problem List: (1) Infection of amputation stump Status: Acute (2) Enterocutaneous fistula Status: Chronic (3) Hypercoagulable state Status: Acute (4) HTN (hypertension) Status: Acute (5) Anxiety about health Status: Acute Assessment and Plan The patient is a 70-year-old female with a medical history significant for ischemic bowel with resection and development of chronic enterocutaneous fistula , asthma, depression, COPD, severe peripheral vascular disease status post left BKA. The patient was discharged from the hospital on 06/06/16 to a assisted facility for rehabilitation. The stitches on the left stump were taken out 2 weeks ago. She reports that the wound has been opening up when she participated with physical therapy. She returned due to wound dehiscence and infection. She was admitted by the vascular surgery service, Dr. Hill for debridement. Infection LBKA stump, C/S Klebsiella ESBL+ and Morganella. - Surgery following. S/P debridement. Follow wound culture, monitor temperature - aztreonam and vancomycin per surgery. Changed to IV Zerbaxa per ID,Micro will sensitivity testing on Zerbaxa and Avycaz , appreciate ID consult - Pain not well controlled. Dilaudid IV added to help with pain. Malnutrition, moderate calorie insufficiency: Consult dietitian and follow in the Low prealbumin. 5 Decision for port insertion for parenteral nutrition per surgery Vaginal itching: Danni vaginitis. Will give 1 dose of Diflucan, she will need follow up as an outpatient for further workup Hypercoagulable state: History of ischemic bowel and severe peripheral vascular disease. - Xarelto restarted Anxiety and depression: - Continue Celexa and Xanax. Electrolyte imbalance with hypokalemia and hypomagnesemia: Check BMP and magnesium level today and replete as needed Replace and monitor. COPD now with worsening cough: chest x-ray review, Breathing treatments as needed. GERD: Continue PPI GI prophylaxis: PPI. Stool softener PRN constipation. DVT PPx: Xarelto PVD Previous abdominal OR for ischemic bowel, has fistula Lashonda Guzman MD Jun 20, 2016 14:42
[2016-06-20] MEDS: FERROUS SULFATE 325 MG (65 MG ELEMENTAL IRON) TAB PO SCH (15:15)
[2016-06-20] MEDS: CITALOPRAM HYDROBROMIDE 40 MG TAB PO SCH (15:15)
[2016-06-20] MEDS: DILTIAZEM-CD 120 MG CAP ER PO SCH (15:15)
[2016-06-20] MEDS: CALCIUM/VITAMIN D 250 MG/125 U TAB PO SCH ×2 (15:15→22:01)
[2016-06-20] MEDS: CALCITRIOL 0.25 MCG CAP PO SCH (15:15)
[2016-06-20] MEDS: PANTOPRAZOLE SOD 20 MG DELAYED RELEASE TAB PO SCH ×2 (15:15→22:02)
[2016-06-20] MEDS: MULTIVITAMIN TAB PO SCH (15:16)
[2016-06-20] MEDS ORDERED: MISCELLANEOUS PHARMACY INFORMATION XX PRN (15:30)
[2016-06-20] MEDS ORDERED: ASP: Documented ESBL, MDR A baumannii or P. aeruginosa XX PRN (15:30)
--- NOTE | 2016-06-20 15:48 | RADRPT ---
EXAM DATE/TIME: 06/20/2016 08:53 [facility] COMPARISON: No previous studies available for comparison. INDICATIONS : Patient with recent leg amputation in need of port placement for parenteral feedings. History right m astectomy. MEDICAL HISTORY : 1.GERD 2.PVD 3.DVT 4.Asthma SURGICAL HISTORY : 1.Right mastectomy 2.Bowel resection 3.Left leg amputation ENCOUNTER: Initial ACUITY: 2 months PAIN SCORE: 10/10 LOCATION: Left leg. FLUORO TIME: 0.4 minutes SEDATION TIME: 30 minutes ACCESS: Left internal jugular vein SEDATION: 1.) 5 mg midazolam (Versed) IV 2.) 250 mcg fentanyl (Sublimaze) IV Prophylactic antibiotics were administered with appropriate pre-procedure timing. Vancomycin within 2 hours of procedure, Ancef (or alternative) within 1 hour of procedure. DEVICE: 1. 8 [place] single lumen Bard Power Port PROCEDURE : 1. Continuous pulse oximetry and EKG monitoring. 2. Intravenous conscious sedation. 3. Ultrasound guidance for venous access. 4. Fluoroscopic guided implantable central venous port placement. The patient was placed supine. The neck was prepped in sterile fashion. Full sterile technique was u sed, including cap, mask, sterile gloves and gown, and a large sterile sheet. Hand hygiene and 2% ch lorhexidine Betadine was utilized per protocol for cutaneous antisepsis with appropriate dry time for site. The skin and subcutaneous tissues were infiltrated with local anesthetic solution. Under direct ultrasound guidance, central venous access was accomplished in the targeted vessel. The ultrasound images depicting access guidance were stored and saved to PACS for permanent record. A s ubcutaneous pocket was created using blunt dissection. The port was introduced to the pocket. The c atheter tubing was fed through a subcutaneous tunnel to the venotomy site. The catheter tubing was c ut to a suitable length and then was introduced through a valved Peel-Away sheath and positioned with catheter tubing tip at the cavo-atrial junction level. The pocket incision was closed with subcutic ular Vicryl suture. Steri-Strips were applied. The port was flushed and locked with heparin solutio n per protocol. Sterile dressing was applied to the site. The patient tolerated the procedure well. Conscious sedation was performed with the prescribed dosages and duration as above. The patient terry ated the procedure well and there were no complications. EKG and oximetry remained stable throughout the procedure. The patient was sent to post anesthesia recovery in stable condition. CONCLUSION: Uncomplicated ultrasound and fluoroscopic guided implanted central venous port catheter placement as described in detail above. An 8 [place] Power port was placed. Kevan Salgado Jr., MD on June 20, 2016 at 15:44 Board Certified Radiologist. This report was verified electronically.
--- NOTE | 2016-06-20 17:22 | PD.CAR.PN ---
CVT Progress Note Subjective/Hospital Course: 70-year-old female with a complex medical and surgical history of peripheral vascular disease and multiple related problems presents now status post BK amputation about a month half ago. Patient went to prison and apparently braced herself on the stump several times in bed in hit it against either floor or the chair not quite clear. Part of the stump opened up and at this point patient is dehiscence of skin deeper tissue seemed to be still intact. 06/16/16 Patient underwent yesterday debridement of the stump with wound VAC placement. The dehiscence is fortunately superficial involving skin and muscle in this as been debrided successfully while the rest of the tissues of bleeding and are viable. Wound VAC has been placed Cultures have been reviewed and antibiotics can be adjusted by medicine as appropriate We'll continue current care and patient should be able to go to prison with a wound VAC by Sunday Patient's nutritional status is very poor with a low albumen and prealbumin level and therefore nutritional evaluation and recommendations are requested I believe the patient is not taking sufficient by mouth in the prison and may need supplemental enteral or parenteral feedings at this point 06/17/16 I reviewed the nutritional parameters and patient's prealbumin and transferrin levels a critically low indicating severe malnutrition. Patient's healing is impaired and so is the rehabilitative potential. After reviewing to nutritional recommendations once these are made, we will decide whether patient needs an Paerki-o-Vhfn placed for additional parenteral nutrition for short bowel syndrome Stump is nice and clean with minimal drainage from the wound VAC 06/19/16 Still awaiting nutritional consult and evaluation for patient has short gut syndrome and will probably need additional parenteral feedings. If so patient will need Zfiqwm-h-Vckz placement for additional feedings Patient is taking excellent by mouth but despite that her nutritional status is poor and hence the healing issues Left BKA stump incision is clean and wound VAC is in place with minimal drainage and will need to be changed today Awaiting wound care to change the wound VAC. Infectious disease help is much appreciated 06/20/2016 Patient doing well at this time. Stump is clean and the wound VAC will be changed today Patient had Pyrcsm-n-Inzq placed by radiology for supplemental parenteral feedings. Grateful for the nutritional evaluation. Patient will be placed on TPN at about the 1500 non-protein calories a day split about 60-70% in glucose and about 30% in form of lipids Patient will likely have to be discharged on supplemental TPN in face of her short bowel syndrome Objective: Vital Signs Date Time Temp Pulse Resp B/P Pulse Ox O2 Delivery O2 Flow Rate FiO2 06/20/16 16:44 96.6 78 19 168/77 97 06/20/16 12:20 71 16 144/77 97 06/20/16 12:16 97.5 80 20 156/82 94 06/20/16 11:20 72 18 148/77 97 06/20/16 10:50 68 18 140/84 99 06/20/16 10:20 73 18 135/65 97 06/20/16 10:05 97.6 83 18 136/79 92 06/20/16 09:00 93 Room Air 06/20/16 08:43 97.5 80 20 156/82 94 06/20/16 04:00 96.7 82 18 133/76 94 06/20/16 00:00 96.6 89 18 128/78 93 06/19/16 20:00 Room Air 06/19/16 20:00 97.5 67 18 122/61 92 Result Diagram: 06/16/1628 06/16/16827 Janice Olvera MD Jun 20, 2016 17:22
[2016-06-20 18:49] LABS: BICARBONATE 24.6 MEQ/L (21.0-32.0); MAGNESIUM 1.2 MG/DL (1.5-2.5)
[2016-06-20 19:34] LABS: POTASSIUM 2.9 MEQ/L (3.5-5.1)
[2016-06-20] MEDS ORDERED: POTASSIUM CHLORIDE 20 MEQ CONTROLLED RELEASE TAB PO ONE (21:00)
[2016-06-20] MEDS: GABAPENTIN 100 MG CAP PO SCH (22:02)
[2016-06-20] MEDS: FAT EMULSION 20% INJ 250 ML (Daily over 8 hours) IV-CENTRAL SCH (22:03)
[2016-06-20] MEDS: CLINIMIX E 4.25/25 1000 mL- </= 42 mls/hr IV-CENTRAL SCH ×3 (22:13)
[2016-06-20] MEDS: ERTAPENEM INJ 1,000 MG in SODIUM CHLORIDE 0.9% INJ 100 ML IV SCH (22:32)
[2016-06-21] VITALS: BP 155/74; PULSE 83; RESP 20; TEMP 96; O2SAT 92
[2016-06-21] MEDS: oxyCODONE/ACETAMINOPHEN 5 MG/325 MG TAB PO PRN ×5 (00:14→20:52)
[2016-06-21] MEDS: ALPRAZolam 0.25 MG TAB PO PRN ×2 (00:14→20:43)
[2016-06-21 04:00] VITALS: BP 147/76; PULSE 79; RESP 16; TEMP 97.6; O2SAT 92
[2016-06-21] MEDS: HYDROmorphone HCL PF 1 MG/ML VIAL IV PUSH PRN ×4 (05:07→23:52)
[2016-06-21] MEDS: SODIUM CHLORIDE 0.9% FLUSH 5 ML FLUSH IV FLUSH PRN (05:07)
[2016-06-21 07:47] LABS: BICARBONATE 27.4 MEQ/L (21.0-32.0); POTASSIUM 3.1 MEQ/L (3.5-5.1)
[2016-06-21 08:05] LABS: CALCIUM-PROTEIN CORRECTED 8.2 MG/DL (8.5-10.1)
[2016-06-21 08:08] VITALS: BP 155/79; PULSE 86; RESP 18; TEMP 97.9; O2SAT 94
[2016-06-21] MEDS: CALCITRIOL 0.25 MCG CAP PO SCH (08:36)
[2016-06-21] MEDS: LACTOBACILLUS ACIDOPHILUS TAB PO SCH ×3 (08:36→16:53)
[2016-06-21] MEDS: RIVAROXABAN 20 MG TAB PO SCH (08:36)
[2016-06-21] MEDS: CALCIUM/VITAMIN D 250 MG/125 U TAB PO SCH ×2 (08:36→20:43)
[2016-06-21] MEDS: DILTIAZEM-CD 120 MG CAP ER PO SCH (08:36)
[2016-06-21] MEDS: PANTOPRAZOLE SOD 20 MG DELAYED RELEASE TAB PO SCH ×2 (08:36→20:43)
[2016-06-21] MEDS: CITALOPRAM HYDROBROMIDE 40 MG TAB PO SCH (08:37)
[2016-06-21] MEDS: SODIUM CHLORIDE 0.9% FLUSH 5 ML FLUSH IV FLUSH SCH ×2 (08:37→20:45)
[2016-06-21] MEDS: FERROUS SULFATE 325 MG (65 MG ELEMENTAL IRON) TAB PO SCH (08:37)
[2016-06-21] MEDS: NYSTATIN 100,000 UNIT/GM CREAM 15 GM TOPICAL SCH ×2 (08:38→20:46)
[2016-06-21 12:23] VITALS: BP 136/69; PULSE 79; RESP 18; TEMP 97.2; O2SAT 93
--- NOTE | 2016-06-21 13:02 | HHI.PR ---
Subjective Remarks Patient reported doing well no acute complain I discussed with the nurse about abdominal wound from previous ostomy, Dr. Hill has looked at it and recommended to continue current care Objective Vitals Vital Signs Date Time Temp Pulse Resp B/P Pulse Ox O2 Delivery O2 Flow Rate FiO2 06/21/16 12:23 97.2 79 18 136/69 93 06/21/16 08:08 97.9 86 18 155/79 94 06/21/16 04:00 97.6 79 16 147/76 92 06/21/16 00:00 96.0 83 20 155/74 92 06/20/16 20:00 Room Air 06/20/16 20:00 98.0 82 18 152/72 96 06/20/16 16:44 96.6 78 19 168/77 97 I/O 06/20/16 06/20/16 06/20/16 06/21/16 06/21/16 06/21/16 07:00 15:00 23:00 07:00 15:00 23:00 Intake Total 360 ml 0 ml 240 ml 240 ml Balance 360 ml 0 ml 240 ml 240 ml Intake Oral 360 ml 0 ml 240 ml 240 ml # Voids 1 3 3 2 # Bowel Movements 0 0 4 0 Result Diagram: 06/21/16 0636 Objective Remarks GENERAL: Awake, alert, oriented, in no acute distress SKIN: Wound VAC with gauze on the left thumb, erythematous moist. Skin on the upper buttock and lower back. CARDIOVASCULAR: Regular rate and rhythm without murmurs, gallops, or rubs. RESPIRATORY: Clear to auscultation. Breath sounds equal bilaterally. No wheezes , rales, or rhonchi. GASTROINTESTINAL: Abdomen soft, non-tender, nondistended. No hepato-splenomegaly , or palpable masses. No guarding. MUSCULOSKELETAL: Left BKA wound vac in place. NEUROLOGICAL: Awake and alert. Normal speech. Procedures Left stump debridement by Dr. Hill on 06/15/16 A/P Problem List: (1) Infection of amputation stump Status: Acute (2) Enterocutaneous fistula Status: Chronic (3) Hypercoagulable state Status: Acute (4) HTN (hypertension) Status: Acute (5) Anxiety about health Status: Acute Assessment and Plan Daily update & Mngmt TPN started by surgery to support nutritional status Will DC IV fluid Hypokalemia and hypocalcemia: We'll replete iv and recheck level in a.m., close monitoring. She is on TPN. A/P: The patient is a 70-year-old female with a medical history significant for ischemic bowel with resection and development of chronic enterocutaneous fistula , asthma, depression, COPD, severe peripheral vascular disease status post left BKA. The patient was [facility] from the [facility]06/[facility] The stitches on the left stump were taken out 2 weeks ago. She reports that the wound has been opening up when she participated with physical therapy. She returned due to wound dehiscence and infection. She was admitted by the vascular surgery service, Dr. Hill for debridement. Infection LBKA stump, C/S Klebsiella ESBL+ and Morganella. - Surgery following. S/P debridement. Follow wound culture, monitor temperature - aztreonam and vancomycin per surgery. Changed to IV Zerbaxa per ID,Micro will sensitivity testing on Zerbaxa and Avycaz , appreciate ID consult - Pain not well controlled. Dilaudid IV added to help with pain. Malnutrition, moderate calorie insufficiency: Consult dietitian and follow in the Low prealbumin. 5 Decision for port insertion for parenteral nutrition per surgery Vaginal itching: Danni vaginitis. Will give 1 dose of Diflucan, she will need follow up as an outpatient for further workup Hypercoagulable state: History of ischemic bowel and severe peripheral vascular disease. - Xarelto restarted Anxiety and depression: - Continue Celexa and Xanax. Electrolyte imbalance with hypokalemia and hypomagnesemia: Monitor BMP and magnesium level today and replete as needed Replace and monitor. COPD now with worsening cough: chest x-ray review, Breathing treatments as needed. GERD: Continue PPI GI prophylaxis: PPI. Stool softener PRN constipation. DVT PPx: Xarelto PVD Previous abdominal OR for ischemic bowel, has fistula Lashonda Guzman MD Jun 21, 2016 13:02
[2016-06-21] MEDS ORDERED: POTASSIUM CHLORIDE 10 MEQ CONTROLLED RELEASE TAB PO ONE (13:15)
[2016-06-21] MEDS: MAGNESIUM SULFATE 1 GM PREMIX 100 ML IV SCH ×2 (13:35→14:32)
--- NOTE | 2016-06-21 14:12 | PD.CAR.PN ---
CVT Progress Note Subjective/Hospital Course: 70-year-old female with a complex medical and surgical history of peripheral vascular disease and multiple related problems presents now status post BK amputation about a month half ago. Patient went to senior care and apparently braced herself on the stump several times in bed in hit it against either floor or the chair not quite clear. Part of the stump opened up and at this point patient is dehiscence of skin deeper tissue seemed to be still intact. 06/16/16 Patient underwent yesterday debridement of the stump with wound VAC placement. The dehiscence is fortunately superficial involving skin and muscle in this as been debrided successfully while the rest of the tissues of bleeding and are viable. Wound VAC has been placed Cultures have been reviewed and antibiotics can be adjusted by medicine as appropriate We'll continue current care and patient should be able to go to senior care with a wound VAC by Sunday Patient's nutritional status is very poor with a low albumen and prealbumin level and therefore nutritional evaluation and recommendations are requested I believe the patient is not taking sufficient by mouth in the senior care and may need supplemental enteral or parenteral feedings at this point 06/17/16 I reviewed the nutritional parameters and patient's prealbumin and transferrin levels a critically low indicating severe malnutrition. Patient's healing is impaired and so is the rehabilitative potential. After reviewing to nutritional recommendations once these are made, we will decide whether patient needs an Rfqhsv-t-Knum placed for additional parenteral nutrition for short bowel syndrome Stump is nice and clean with minimal drainage from the wound VAC 06/19/16 Still awaiting nutritional consult and evaluation for patient has short gut syndrome and will probably need additional parenteral feedings. If so patient will need Akkaoc-w-Pmol placement for additional feedings Patient is taking excellent by mouth but despite that her nutritional status is poor and hence the healing issues Left BKA stump incision is clean and wound VAC is in place with minimal drainage and will need to be changed today Awaiting wound care to change the wound VAC. Infectious disease help is much appreciated 06/20/2016 Patient doing well at this time. Stump is clean and the wound VAC will be changed today Patient had Mkmtss-t-Ojyr placed by radiology for supplemental parenteral feedings. Grateful for the nutritional evaluation. Patient will be placed on TPN at about the 1500 non-protein calories a day split about 60-70% in glucose and about 30% in form of lipids Patient will likely have to be discharged on supplemental TPN in face of her short bowel syndrome 06/21/16 Patient is doing really well at this time She's taking good by mouth diet. 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 There is some granulation tissue which may eventually need to be debrided but at this point I would leave it alone. Stump wound VAC has been changed and this is clean and granulating nicely. Patient is currently on TPN which tolerating well. In face of her short bowel syndrome patient will need TPN after discharge from the hospital. Grateful to case management for making arrangements for the same Objective: Vital Signs Date Time Temp Pulse Resp B/P Pulse Ox O2 Delivery O2 Flow Rate FiO2 06/21/16 12:23 97.2 79 18 136/69 93 06/21/16 08:08 97.9 86 18 155/79 94 06/21/16 08:00 Room Air 06/21/16 04:00 97.6 79 16 147/76 92 06/21/16 00:00 96.0 83 20 155/74 92 06/20/16 20:00 Room Air 06/20/16 20:00 98.0 82 18 152/72 96 06/20/16 16:44 96.6 78 19 168/77 97 Labs: Laboratory Tests Test 06/21/16 06:36 Sodium Level 146 MEQ/L (136-145) Potassium Level 3.1 MEQ/L (3.5-5.1) Chloride Level 113 MEQ/L (98-107) Carbon Dioxide Level 27.4 MEQ/L (21.0-32.0) Anion Gap 6 MEQ/L (5-15) Blood Urea Nitrogen 2 MG/DL (7-18) Creatinine 0.45 MG/DL (0.50-1.00) Estimat Glomerular Filtration 138 ML/MIN Rate (>89) Random Glucose 129 MG/DL (74-106) Calcium Level 6.9 MG/DL (8.5-10.1) Protein Corrected Calcium 8.2 MG/DL (8.5-10.1) Total Protein 4.6 GM/DL (6.4-8.2) Result Diagram: 06/21/16 0636 Janice Olvera MD Jun 21, 2016 14:11
[2016-06-21 16:02] VITALS: BP 121/65; PULSE 86; RESP 17; TEMP 98.5; O2SAT 92
[2016-06-21] MEDS: ERTAPENEM INJ 1,000 MG in SODIUM CHLORIDE 0.9% INJ 100 ML IV SCH (17:16)
[2016-06-21] MEDS: GABAPENTIN 100 MG CAP PO SCH (20:43)
[2016-06-21] MEDS: FAT EMULSION 20% INJ 250 ML (Daily over 8 hours) IV-CENTRAL SCH (20:53)
[2016-06-21] MEDS: CLINIMIX E 4.25/25 1000 mL- </= 42 mls/hr IV-CENTRAL SCH ×3 (20:55)
[2016-06-21 21:03] VITALS: BP 141/73; PULSE 72; RESP 18; TEMP 96.5; O2SAT 94
[2016-06-22 00:45] VITALS: BP 116/60; PULSE 94; RESP 18; TEMP 97.9; O2SAT 93
[2016-06-22 04:00] VITALS: BP 137/76; PULSE 95; RESP 18; TEMP 97.2; O2SAT 93
[2016-06-22] MEDS: oxyCODONE/ACETAMINOPHEN 5 MG/325 MG TAB PO PRN (04:13)
[2016-06-22] MEDS: RESP: ALBUTEROL 2.5 MG/IPRATROPIUM 0.5 MG NEB (PRN) NEB (05:21)
[2016-06-22] MEDS: ALPRAZolam 0.25 MG TAB PO PRN (05:52)
[2016-06-22 08:00] VITALS: BP 129/64; PULSE 108; RESP 16; TEMP 98.4; O2SAT 92
[2016-06-22] MEDS: RIVAROXABAN 20 MG TAB PO SCH (08:37)
[2016-06-22] MEDS: CALCITRIOL 0.25 MCG CAP PO SCH (08:37)
[2016-06-22] MEDS: PANTOPRAZOLE SOD 20 MG DELAYED RELEASE TAB PO SCH ×2 (08:37→21:10)
[2016-06-22] MEDS: CITALOPRAM HYDROBROMIDE 40 MG TAB PO SCH (08:38)
[2016-06-22] MEDS: LACTOBACILLUS ACIDOPHILUS TAB PO SCH ×3 (08:38→17:12)
[2016-06-22] MEDS: FERROUS SULFATE 325 MG (65 MG ELEMENTAL IRON) TAB PO SCH (08:38)
[2016-06-22] MEDS: DILTIAZEM-CD 120 MG CAP ER PO SCH (08:38)
[2016-06-22] MEDS: HYDROmorphone HCL PF 1 MG/ML VIAL IV PUSH PRN ×3 (08:39→21:20)
[2016-06-22] MEDS: CALCIUM/VITAMIN D 250 MG/125 U TAB PO SCH ×2 (08:39→21:10)
[2016-06-22] MEDS: SODIUM CHLORIDE 0.9% FLUSH 5 ML FLUSH IV FLUSH SCH ×2 (09:00→21:00)
[2016-06-22] MEDS: NYSTATIN 100,000 UNIT/GM CREAM 15 GM TOPICAL SCH ×2 (09:00→21:00)
[2016-06-22 12:00] VITALS: BP 147/71; PULSE 102; RESP 18; TEMP 98; O2SAT 93
--- NOTE | 2016-06-22 13:18 | HHI.PR ---
Subjective Remarks Stated she feels better. No fever or chills, pain in her stump, stated Percocet 5, is not touching it, increased to 7.5 Objective Vitals Vital Signs Date Time Temp Pulse Resp B/P Pulse Ox O2 Delivery O2 Flow Rate FiO2 06/22/16 08:00 98.4 108 16 129/64 92 06/22/16 04:00 Room Air 06/22/16 04:00 97.2 95 18 137/76 93 06/22/16 00:45 97.9 94 18 116/60 93 06/21/16 21:03 96.5 72 18 141/73 94 06/21/16 20:00 Room Air 06/21/16 16:02 98.5 86 17 121/65 92 06/21/16 16:00 Room Air I/O 06/21/16 06/21/16 06/21/16 06/22/16 06/22/16 06/22/16 07:00 15:00 23:00 07:00 15:00 23:00 Intake Total 240 ml 637 ml 773 ml Balance 240 ml 637 ml 773 ml Intake Oral 240 ml IV Total 637 ml TPN/PPN 523 ml Lipid 250 ml # Voids 2 0 2 # Bowel Movements 0 0 0 Result Diagram: 06/21/16 0636 Objective Remarks GENERAL: Awake, alert, oriented, in no acute distress SKIN: Wound VAC with gauze on the left thumb, erythematous moist. Skin on the upper buttock and lower back. CARDIOVASCULAR: Regular rate and rhythm without murmurs, gallops, or rubs. RESPIRATORY: Clear to auscultation. Breath sounds equal bilaterally. No wheezes , rales, or rhonchi. GASTROINTESTINAL: Abdomen soft, non-tender, nondistended. No hepato-splenomegaly , or palpable masses. No guarding. MUSCULOSKELETAL: Left BKA wound vac in place. NEUROLOGICAL: Awake and alert. Normal speech. Procedures Left stump debridement by Dr. Hill on 06/15/16 A/P Problem List: (1) Infection of amputation stump Status: Acute (2) Enterocutaneous fistula Status: Chronic (3) Hypercoagulable state Status: Acute (4) HTN (hypertension) Status: Acute (5) Anxiety about health Status: Acute Assessment and Plan Daily update & Mngmt 06/22 Hypomagnesemia and hypokalemia, on TPN and replacement, BMP today pending check in a.m. Patient getting Dilaudid as a breakthrough, discussed with the nurse, will replace with Percocet and taper Dilaudid Appreciated Dr. Hill surgery follow A/P: The patient is a 70-year-old female with a medical history significant for ischemic bowel with resection and development of chronic enterocutaneous fistula , asthma, depression, COPD, severe peripheral vascular disease status post left BKA. The patient was discharged from the hospital on 06/06/16 to a intermediate facility for rehabilitation. The stitches on the left stump were taken out 2 weeks ago. She reports that the wound has been opening up when she participated with physical therapy. She returned due to wound dehiscence and infection. She was admitted by the vascular surgery service, Dr. Hill for debridement. Infection LBKA stump, C/S Klebsiella ESBL+ and Morganella. - Surgery following. S/P debridement. Follow wound culture, monitor temperature - aztreonam and vancomycin per surgery. Changed to IV Zerbaxa per ID,Micro will sensitivity testing on Zerbaxa and Avycaz , appreciate ID consult - Pain not well controlled. Dilaudid IV added to help with pain. Malnutrition, moderate calorie insufficiency: Consult dietitian and follow in the Low prealbumin. 5 Decision for port insertion for parenteral nutrition per surgery Vaginal itching: Danni vaginitis. Will give 1 dose of Diflucan, she will need follow up as an outpatient for further workup Hypercoagulable state: History of ischemic bowel and severe peripheral vascular disease. - Xarelto restarted Anxiety and depression: - Continue Celexa and Xanax. Electrolyte imbalance with hypokalemia and hypomagnesemia: Monitor BMP and magnesium level today and replete as needed Replace and monitor. COPD now with worsening cough: chest x-ray review, Breathing treatments as needed. GERD: Continue PPI GI prophylaxis: PPI. Stool softener PRN constipation. DVT PPx: Xarelto PVD Previous abdominal OR for ischemic bowel, has fistula Lashonda Guzman MD Jun 22, 2016 13:18
--- NOTE | 2016-06-22 14:12 | PD.CAR.PN ---
CVT Progress Note Subjective/Hospital Course: 70-year-old female with a complex medical and surgical history of peripheral vascular disease and multiple related problems presents now status post BK amputation about a month half ago. Patient went to [facility] and apparently braced herself on the stump several times in bed in hit it against either floor or the chair not quite clear. Part of the stump opened up and at this point patient is dehiscence of skin deeper tissue seemed to be still intact. 06/16/16 Patient underwent yesterday debridement of the stump with wound VAC placement. The dehiscence is fortunately superficial involving skin and muscle in this as been debrided successfully while the rest of the tissues of bleeding and are viable. Wound VAC has been placed Cultures have been reviewed and antibiotics can be adjusted by medicine as appropriate We'll continue current care and patient should be able to go to [facility] with a wound VAC by Sunday Patient's nutritional status is very poor with a low albumen and prealbumin level and therefore nutritional evaluation and recommendations are requested I believe the patient is not taking sufficient by mouth in the [facility] and may need supplemental enteral or parenteral feedings at this point 06/17/16 I reviewed the nutritional parameters and patient's prealbumin and transferrin levels a critically low indicating severe malnutrition. Patient's healing is impaired and so is the rehabilitative potential. After reviewing to nutritional recommendations once these are made, we will decide whether patient needs an Vazbee-r-Ytdi placed for additional parenteral nutrition for short bowel syndrome Stump is nice and clean with minimal drainage from the wound VAC 06/19/16 Still awaiting nutritional consult and evaluation for patient has short gut syndrome and will probably need additional parenteral feedings. If so patient will need Rxsism-c-Zpcr placement for additional feedings Patient is taking excellent by mouth but despite that her nutritional status is poor and hence the healing issues Left BKA stump incision is clean and wound VAC is in place with minimal drainage and will need to be changed today Awaiting wound care to change the wound VAC. Infectious disease help is much appreciated 06/20/2016 Patient doing well at this time. Stump is clean and the wound VAC will be changed today Patient had Ejaunf-v-Qovh placed by radiology for supplemental parenteral feedings. Grateful for the nutritional evaluation. Patient will be placed on TPN at about the 1500 non-protein calories a day split about 60-70% in glucose and about 30% in form of lipids Patient will likely have to be discharged on supplemental TPN in face of her short bowel syndrome 06/21/16 Patient is doing really well at this time She's taking good by mouth diet. 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 There is some granulation tissue which may eventually need to be debrided but at this point I would leave it alone. Stump wound VAC has been changed and this is clean and granulating nicely. Patient is currently on TPN which tolerating well. In face of her short bowel syndrome patient will need TPN after discharge from the hospital. Grateful to case management for making arrangements for the same 06/22/16 Vital signs stable patient is doing well. Her appetite has improved and patient is taking good by mouth diet and having regular bowel movements. The abdominal incision is completely healed and fistula has completely resolved. The BKA wound VAC has been changed and wound is clean and granulating nicely. Ljtobm-a-Snjt is being used for additional parenteral feedings necessary and short bowel syndrome and patient will be discharged on TPN. Objective: Vital Signs Date Time Temp Pulse Resp B/P Pulse Ox O2 Delivery O2 Flow Rate FiO2 06/22/16 12:00 Room Air 06/22/16 12:00 98.0 102 18 147/71 93 06/22/16 08:00 98.4 108 16 129/64 92 06/22/16 04:00 Room Air 06/22/16 04:00 97.2 95 18 137/76 93 06/22/16 00:45 97.9 94 18 116/60 93 06/21/16 21:03 96.5 72 18 141/73 94 06/21/16 20:00 Room Air 06/21/16 16:02 98.5 86 17 121/65 92 06/21/16 16:00 Room Air Labs: Laboratory Tests Test 06/22/16 07:17 Magnesium Level 1.8 MG/DL (1.5-2.5) Result Diagram: 06/21/16 0636 Janice Olvera MD Jun 22, 2016 14:12
[2016-06-22] MEDS: oxyCODONE/ACETAMINOPHEN 7.5 MG/325 MG TAB PO PRN ×2 (14:52→18:20)
[2016-06-22 16:00] VITALS: BP 124/59; PULSE 95; RESP 18; TEMP 97.9; O2SAT 91
[2016-06-22 17:15] LABS: BICARBONATE 28.7 MEQ/L (21.0-32.0); POTASSIUM 3.2 MEQ/L (3.5-5.1)
[2016-06-22 17:35] LABS: CALCIUM-PROTEIN CORRECTED 8.6 MG/DL (8.5-10.1)
--- NOTE | 2016-06-22 18:47 | HHI.PR ---
Subjective Remarks Patient reports continuing pain on the left stop. She denies fevers or chills. She is tolerating her diet. Objective Vitals Vital Signs Date Time Temp Pulse Resp B/P Pulse Ox O2 Delivery O2 Flow Rate FiO2 06/22/16 16:00 97.9 95 18 124/59 91 06/22/16 12:00 Room Air 06/22/16 12:00 98.0 102 18 147/71 93 06/22/16 08:00 98.4 108 16 129/64 92 06/22/16 04:00 Room Air 06/22/16 04:00 97.2 95 18 137/76 93 06/22/16 00:45 97.9 94 18 116/60 93 06/21/16 21:03 96.5 72 18 141/73 94 06/21/16 20:00 Room Air I/O 06/21/16 06/21/16 06/21/16 06/22/16 06/22/16 06/22/16 07:00 15:00 23:00 07:00 15:00 23:00 Intake Total 240 ml 637 ml 773 ml 379 ml Balance 240 ml 637 ml 773 ml 379 ml Intake Oral 240 ml IV Total 637 ml 379 ml TPN/PPN 523 ml Lipid 250 ml # Voids 2 0 2 # Bowel Movements 0 0 0 Result Diagram: 06/22/16 1626 Objective Remarks GENERAL: Chronically ill-appearing patient. SKIN: Abdomen with 2 small enterocutaneous fistulas, minimal drainage. CARDIOVASCULAR: Regular rate and rhythm without murmurs, gallops, or rubs. RESPIRATORY: Clear to auscultation. Breath sounds equal bilaterally. No wheezes , rales, or rhonchi. GASTROINTESTINAL: Abdomen soft, non-tender, nondistended. No hepato-splenomegaly , or palpable masses. No guarding. MUSCULOSKELETAL: Left BKA wound vac in place. Very tender NEUROLOGICAL: Awake and alert. Normal speech. Procedures Left stump debridement by Dr. Hill on 06/15/16 A/P Problem List: (1) Infection of amputation stump Status: Acute (2) Enterocutaneous fistula Status: Chronic (3) Hypercoagulable state Status: Acute (4) HTN (hypertension) Status: Acute (5) Anxiety about health Status: Acute Assessment and Plan The patient is a 70-year-old female with a medical history significant for ischemic bowel with resection and development of chronic enterocutaneous fistula , asthma, depression, COPD, severe peripheral vascular disease status post left BKA. The patient was discharged from the hospital on 06/06/16 to a senior care facility for rehabilitation. The stitches on the left stump were taken out 2 weeks ago. She reports that the wound has been opening up when she participated with physical therapy. She returned due to wound dehiscence and infection. She was admitted by the vascular surgery service, Dr. Hill for debridement. Infected left stump: Patient status post BKA on 05/02/16. - Surgery following. S/P debridement. Wound cultures pending - IV Zerbaxa per ID, Micro with sensitivity testing on Zerbaxa and Avycaz - Dilaudid IV to help with pain. Increase Percocet Hypercoagulable state: History of ischemic bowel and severe peripheral vascular disease. - Xarelto restarted Malnutrition, moderate calorie insufficiency: Patient has an Vxltgr-a-Xfmy and is on TPN per surgery. Vaginal itching: Danni vaginitis. Status post 1 dose of Diflucan, she will need follow up as an outpatient for further workup Anxiety and depression: - Continue Celexa and Xanax. Hypokalemia: Replace and monitor. COPD: Breathing treatments as needed. GERD: Continue PPI GI prophylaxis: PPI. Stool softener PRN constipation. DVT PPx: Manolo Chahal MD Jun 22, 2016 18:47
[2016-06-22] MEDS: ERTAPENEM INJ 1,000 MG in SODIUM CHLORIDE 0.9% INJ 100 ML IV SCH (19:57)
[2016-06-22 20:00] VITALS: BP 135/68; PULSE 88; RESP 18; TEMP 98.2; O2SAT 92
[2016-06-22] MEDS: GABAPENTIN 100 MG CAP PO SCH (21:10)
[2016-06-22] MEDS: POTASSIUM CHLOR 10 MEQ PREMIX 100 ML IV SCH ×3 (21:11→23:49)
[2016-06-22] MEDS: FAT EMULSION 20% INJ 250 ML (Daily over 8 hours) IV-CENTRAL SCH (21:13)
[2016-06-22] MEDS: CLINIMIX E 4.25/25 1000 mL- </= 42 mls/hr IV-CENTRAL SCH ×3 (21:14)
[2016-06-23] VITALS: BP 125/67; PULSE 90; RESP 18; TEMP 98.2; O2SAT 94
[2016-06-23] MEDS: oxyCODONE/ACETAMINOPHEN 10 MG/325 MG TAB PO PRN ×4 (01:36→18:03)
[2016-06-23] MEDS: RESP: ALBUTEROL 2.5 MG/IPRATROPIUM 0.5 MG NEB (PRN) NEB ×2 (02:14→22:01)
[2016-06-23 04:00] VITALS: BP 133/69; PULSE 105; RESP 18; TEMP 97.1; O2SAT 93
[2016-06-23] MEDS: HYDROmorphone HCL PF 1 MG/ML VIAL IV PUSH PRN ×4 (06:09→21:21)
[2016-06-23 07:03] LABS: BICARBONATE 29.1 MEQ/L (21.0-32.0); POTASSIUM 3.1 MEQ/L (3.5-5.1)
[2016-06-23 08:00] VITALS: BP 134/68; PULSE 104; RESP 18; TEMP 98.1; O2SAT 93
[2016-06-23] MEDS: CALCIUM/VITAMIN D 250 MG/125 U TAB PO SCH ×2 (08:05→21:20)
[2016-06-23] MEDS: RIVAROXABAN 20 MG TAB PO SCH (08:06)
[2016-06-23] MEDS: DILTIAZEM-CD 120 MG CAP ER PO SCH (08:06)
[2016-06-23] MEDS: PANTOPRAZOLE SOD 20 MG DELAYED RELEASE TAB PO SCH ×2 (08:06→21:20)
[2016-06-23] MEDS: LACTOBACILLUS ACIDOPHILUS TAB PO SCH ×3 (08:07→18:01)
[2016-06-23] MEDS: CALCITRIOL 0.25 MCG CAP PO SCH (08:07)
[2016-06-23] MEDS: FERROUS SULFATE 325 MG (65 MG ELEMENTAL IRON) TAB PO SCH (08:07)
[2016-06-23] MEDS: CITALOPRAM HYDROBROMIDE 40 MG TAB PO SCH (08:07)
[2016-06-23] MEDS: SODIUM CHLORIDE 0.9% FLUSH 5 ML FLUSH IV FLUSH SCH ×2 (08:14→21:23)
[2016-06-23] MEDS: ALPRAZolam 0.25 MG TAB PO PRN (08:21)
[2016-06-23] MEDS: NYSTATIN 100,000 UNIT/GM CREAM 15 GM TOPICAL SCH ×2 (09:00→21:57)
--- NOTE | 2016-06-23 11:52 | HHI.PR ---
Subjective Remarks Patient reports that her pain is controlled with the medications. No fevers or chills. Tolerating her diet. Objective Vitals Vital Signs Date Time Temp Pulse Resp B/P Pulse Ox O2 Delivery O2 Flow Rate FiO2 06/23/16 08:00 98.1 104 18 134/68 93 06/23/16 07:15 Room Air 06/23/16 04:00 Room Air 06/23/16 04:00 97.1 105 18 133/69 93 06/23/16 02:00 Room Air 06/23/16 00:00 98.2 90 18 125/67 94 06/22/16 20:00 98.2 88 18 135/68 92 06/22/16 20:00 Room Air 06/22/16 16:00 97.9 95 18 124/59 91 06/22/16 12:00 Room Air 06/22/16 12:00 98.0 102 18 147/71 93 I/O 06/22/16 06/22/16 06/22/16 06/23/16 06/23/16 06/23/16 07:00 15:00 23:00 07:00 15:00 23:00 Intake Total 773 ml 379 ml 240 ml 240 ml Balance 773 ml 379 ml 240 ml 240 ml Intake Oral 240 ml 240 ml IV Total 379 ml TPN/PPN 523 ml Lipid 250 ml # Voids 2 3 2 # Bowel Movements 0 1 0 1 Result Diagram: 06/23/16 0549 Objective Remarks GENERAL: Chronically ill-appearing patient. SKIN: Abdomen with 1 small enterocutaneous fistula, minimal drainage. CARDIOVASCULAR: Regular rate and rhythm without murmurs, gallops, or rubs. RESPIRATORY: Clear to auscultation. Breath sounds equal bilaterally. No wheezes , rales, or rhonchi. GASTROINTESTINAL: Abdomen soft, non-tender, nondistended. No hepato-splenomegaly , or palpable masses. No guarding. MUSCULOSKELETAL: Left BKA wound vac in place. Very tender to palpation NEUROLOGICAL: Awake and alert. Normal speech. Procedures Left stump debridement by Dr. Hill on 06/15/16 A/P Problem List: (1) Infection of amputation stump Status: Acute (2) Enterocutaneous fistula Status: Chronic (3) Hypercoagulable state Status: Acute (4) HTN (hypertension) Status: Acute (5) Anxiety about health Status: Acute Assessment and Plan The patient is a 70-year-old female with a medical history significant for ischemic bowel with resection and development of chronic enterocutaneous fistula , asthma, depression, COPD, severe peripheral vascular disease status post left BKA. The patient was discharged from the hospital on 06/06/16 [facility]. The stitches on the left stump were taken out 2 weeks ago. She reports that the wound has been opening up when she participated with physical therapy. She returned due to wound dehiscence and infection. She was admitted by the vascular surgery service, Dr. Hill for debridement. Infected left stump: Patient status post BKA on 05/02/16. - Surgery following. S/P debridement. Wound cultures growing Klebsiella ESBL positive and Morganella. - IV Zerbaxa per ID, Micro with sensitivity testing on Zerbaxa and Avycaz - Dilaudid IV for breakthrough pain. Continue Percocet Hypercoagulable state: History of ischemic bowel and severe peripheral vascular disease. - Xarelto restarted Malnutrition, moderate calorie insufficiency: Patient has an Aafiqx-d-Jcra and is on TPN per surgery. Vaginal itching: Danni vaginitis. Status post 1 dose of Diflucan, she will need follow up as an outpatient for further workup Anxiety and depression: - Continue Celexa and Xanax. Hypokalemia: Replace and monitor. COPD: Breathing treatments as needed. GERD: Continue PPI GI prophylaxis: PPI. Stool softener PRN constipation. DVT PPx: Manolo Chahal MD Jun 23, 2016 11:52
[2016-06-23 12:00] VITALS: BP 126/65; PULSE 92; RESP 16; TEMP 97.4; O2SAT 92
[2016-06-23] MEDS ORDERED: POTASSIUM CHLORIDE 10 MEQ CONTROLLED RELEASE TAB PO ONE (12:00)
--- NOTE | 2016-06-23 12:52 | HHI.IDPN ---
Subjective Subjective Remarks Notes reviewed Temps ok D/W Dr Hill - wound clean, granulating Antibiotics Invanz Lines Peripheral IV Past Medical History 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 Vital Signs Date Time Temp Pulse Resp B/P Pulse Ox O2 Delivery O2 Flow Rate FiO2 06/23/16 08:00 98.1 104 18 134/68 93 06/23/16 07:15 Room Air 06/23/16 04:00 Room Air 06/23/16 04:00 97.1 105 18 133/69 93 06/23/16 02:00 Room Air 06/23/16 00:00 98.2 90 18 125/67 94 06/22/16 20:00 98.2 88 18 135/68 92 06/22/16 20:00 Room Air 06/22/16 16:00 97.9 95 18 124/59 91 06/22/16 06/22/16 06/23/16 15:00 23:00 07:00 Intake Total 379 ml 240 ml 240 ml Balance 379 ml 240 ml 240 ml Intake Oral 240 ml 240 ml IV Total 379 ml # Voids 3 2 # Bowel Movements 1 0 . Laboratory Tests Test 06/22/16 06/22/16 06/23/16 07:17 16:26 05:49 Magnesium Level 1.8 MG/DL Sodium Level 146 MEQ/L 144 MEQ/L Potassium Level 3.2 MEQ/L 3.1 MEQ/L Chloride Level 111 MEQ/L 109 MEQ/L Carbon Dioxide Level 28.7 MEQ/L 29.1 MEQ/L Anion Gap 6 MEQ/L 6 MEQ/L Blood Urea Nitrogen 2 MG/DL 3 MG/DL Creatinine 0.39 MG/DL 0.42 MG/DL Estimat Glomerular Filtration 163 ML/MIN 150 ML/MIN Rate Random Glucose 134 MG/DL 98 MG/DL Calcium Level 7.2 MG/DL 7.6 MG/DL Protein Corrected Calcium 8.6 MG/DL Total Protein 4.6 GM/DL Microbiology Date/Time Procedure Status Source Growth 06/20/16 22:15 Aerobic Blood Culture - Preliminary Resulted Blood Arterial Line NO GROWTH IN 3 DAYS 06/20/16 22:15 Anaerobic Blood Culture - Preliminary Resulted Blood Arterial Line NO GROWTH IN 3 DAYS Imaging Chest X-Ray 06/17/16 0000 Signed Impressions: Service Date/Time: Friday, June 17, 2016 14:12 - CONCLUSION: Right base infiltrate and small effusion. Calixto Woodruff MD Physical Exam GENERAL: awake and alert, not in respiratory distress. SKIN: Cool and dry. No generalized rash and no evidence of embolic lesions. HEENT: Marcelline conjunctiva. No petechia or hemorrhage. No scleral icterus. Moist oral mucosa. NECK: Supple and not tender, no meningeal signs. No lymphadenopathy. CARDIOVASCULAR: Regular rate and rhythm. No murmur, no rub. RESPIRATORY: Clear to auscultation on the left side. There is rhonchi on the right side. ABDOMEN: Soft, nondistended. There is a midline scar, and there are 2 small fistula opening the upper part is larger it's probably about half a centimeter, and the lower part is about a quarter centimeter. There is tenderness on palpation of the abdomen especially in the midline. No erythema noted. Bowel sounds present and normoactive. No guarding. No rebound. No organomegaly. EXTREMITIES: LBKA stump has wound vac in place, and the medial portion has some redness and induration, and tender on palpation. No other redness noted. No lymphangitis NEUROLOGICAL: Grossly non-focal PSYCH: Calm and cooperative LINE: Peripheral IV with no evidence of infection Assessment & Plan Remarks IMPRESSION Infection LBKA stump, C/S Klebsiella ESBL+ and Morganella - S/P debridement Multiple Abx allergy - has tolerated Cephalosporins in the past PVD Previous abdominal OR for ischemic bowel, has fistula Cough, PNA - has known COPD - has R base infiltrate RECOMMENDATION D/W Dr Hill Will D/C Abx Wound care - wound vac I will sign off Please call if with new ID issue or question Sara Greenfield MD Jun 23, 2016 12:52
[2016-06-23 16:00] VITALS: BP 147/77; PULSE 90; RESP 18; TEMP 97; O2SAT 92
--- NOTE | 2016-06-23 16:02 | PD.CAR.PN ---
CVT Progress Note Subjective/Hospital Course: 70-year-old female with a complex medical and surgical history of peripheral vascular disease and multiple related problems presents now status post BK amputation about a month half ago. Patient went to [facility] and apparently braced herself on the stump several times in bed in hit it against either floor or the chair not quite clear. Part of the stump opened up and at this point patient is dehiscence of skin deeper tissue seemed to be still intact. 06/16/16 Patient underwent yesterday debridement of the stump with wound VAC placement. The dehiscence is fortunately superficial involving skin and muscle in this as been debrided successfully while the rest of the tissues of bleeding and are viable. Wound VAC has been placed Cultures have been reviewed and antibiotics can be adjusted by medicine as appropriate We'll continue current care and patient should be able to go to [facility] with a wound VAC by Sunday Patient's nutritional status is very poor with a low albumen and prealbumin level and therefore nutritional evaluation and recommendations are requested I believe the patient is not taking sufficient by mouth in the [facility] and may need supplemental enteral or parenteral feedings at this point 06/17/16 I reviewed the nutritional parameters and patient's prealbumin and transferrin levels a critically low indicating severe malnutrition. Patient's healing is impaired and so is the rehabilitative potential. After reviewing to nutritional recommendations once these are made, we will decide whether patient needs an Qskrkl-b-Viwi placed for additional parenteral nutrition for short bowel syndrome Stump is nice and clean with minimal drainage from the wound VAC 06/19/16 Still awaiting nutritional consult and evaluation for patient has short gut syndrome and will probably need additional parenteral feedings. If so patient will need Dzsqkm-f-Ibdl placement for additional feedings Patient is taking excellent by mouth but despite that her nutritional status is poor and hence the healing issues Left BKA stump incision is clean and wound VAC is in place with minimal drainage and will need to be changed today Awaiting wound care to change the wound VAC. Infectious disease help is much appreciated 06/20/2016 Patient doing well at this time. Stump is clean and the wound VAC will be changed today Patient had Bxzxhg-n-Zkbr placed by radiology for supplemental parenteral feedings. Grateful for the nutritional evaluation. Patient will be placed on TPN at about the 1500 non-protein calories a day split about 60-70% in glucose and about 30% in form of lipids Patient will likely have to be discharged on supplemental TPN in face of her short bowel syndrome 06/21/16 Patient is doing really well at this time She's taking good by mouth diet. 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 There is some granulation tissue which may eventually need to be debrided but at this point I would leave it alone. Stump wound VAC has been changed and this is clean and granulating nicely. Patient is currently on TPN which tolerating well. In face of her short bowel syndrome patient will need TPN after discharge from the hospital. Grateful to case management for making arrangements for the same 06/22/16 Vital signs stable patient is doing well. Her appetite has improved and patient is taking good by mouth diet and having regular bowel movements. The abdominal incision is completely healed and fistula has completely resolved. The BKA wound VAC has been changed and wound is clean and granulating nicely. Nbuaij-p-Gshi is being used for additional parenteral feedings necessary and short bowel syndrome and patient will be discharged on TPN. 06/23/16 Patient underwent today change of the wound VAC and the wound is clean. Next with will be the last wound VAC change and after that I plan to take the patient to the OR for irrigation and closure of the wound by the middle of the next week. Objective: Vital Signs Date Time Temp Pulse Resp B/P Pulse Ox O2 Delivery O2 Flow Rate FiO2 06/23/16 12:00 97.4 92 16 126/65 92 06/23/16 08:00 98.1 104 18 134/68 93 06/23/16 07:15 Room Air 06/23/16 04:00 Room Air 06/23/16 04:00 97.1 105 18 133/69 93 06/23/16 02:00 Room Air 06/23/16 00:00 98.2 90 18 125/67 94 06/22/16 20:00 98.2 88 18 135/68 92 06/22/16 20:00 Room Air Labs: Laboratory Tests Test 06/23/16 05:49 Sodium Level 144 MEQ/L (136-145) Potassium Level 3.1 MEQ/L (3.5-5.1) Chloride Level 109 MEQ/L (98-107) Carbon Dioxide Level 29.1 MEQ/L (21.0-32.0) Anion Gap 6 MEQ/L (5-15) Blood Urea Nitrogen 3 MG/DL (7-18) Creatinine 0.42 MG/DL (0.50-1.00) Estimat Glomerular Filtration 150 ML/MIN Rate (>89) Random Glucose 98 MG/DL (74-106) Calcium Level 7.6 MG/DL (8.5-10.1) Result Diagram: 06/23/16 0549 Janice Olvera MD Jun 23, 2016 16:02
[2016-06-23 20:00] VITALS: BP 128/71; PULSE 90; RESP 18; TEMP 97.5; O2SAT 92
[2016-06-23] MEDS: GABAPENTIN 100 MG CAP PO SCH (21:20)
[2016-06-23] MEDS: FAT EMULSION 20% INJ 250 ML (Daily over 8 hours) IV-CENTRAL SCH (21:21)
[2016-06-23] MEDS: CLINIMIX E 4.25/25 1000 mL- </= 42 mls/hr IV-CENTRAL SCH ×3 (21:56)
[2016-06-24] VITALS: BP 120/63; PULSE 107; RESP 18; TEMP 99.4; O2SAT 91
[2016-06-24] MEDS: ALPRAZolam 0.25 MG TAB PO PRN (02:56)
[2016-06-24] MEDS: oxyCODONE/ACETAMINOPHEN 10 MG/325 MG TAB PO PRN ×5 (02:56→22:35)
[2016-06-24 04:00] VITALS: BP 126/64; PULSE 104; RESP 18; TEMP 99.8; O2SAT 92
[2016-06-24] MEDS: HYDROmorphone HCL PF 1 MG/ML VIAL IV PUSH PRN ×4 (05:26→21:06)
[2016-06-24 06:18] LABS: HEMATOCRIT 25.2 % (35.0-46.0); MEAN CELL VOLUME 91.3 FL (80.0-100.0); MEAN CORPUSCULAR HEMOGLOBIN 30.5 PG (27.0-34.0); MEAN CORPUSCULAR HGB CONC 33.4 % (32.0-36.0); PLATELET COUNT 287 TH/MM3 (150-450); RED BLOOD COUNT 2.76 MIL/MM3 (4.00-5.30); RED CELL DISTRIBUTION WIDTH 23.3 % (11.6-17.2); REVIEW FLAG FINAL; WHITE BLOOD COUNT 8.5 TH/MM3 (4.0-11.0)
[2016-06-24 07:27] LABS: BICARBONATE 31.7 MEQ/L (21.0-32.0); POTASSIUM 3.6 MEQ/L (3.5-5.1)
[2016-06-24 07:54] LABS: CALCIUM-PROTEIN CORRECTED 8.7 MG/DL (8.5-10.1)
[2016-06-24 08:03] VITALS: BP 125/63; PULSE 96; RESP 18; TEMP 98; O2SAT 90
[2016-06-24] MEDS: SODIUM CHLORIDE 0.9% FLUSH 5 ML FLUSH IV FLUSH SCH ×2 (09:00→21:04)
[2016-06-24] MEDS: LACTOBACILLUS ACIDOPHILUS TAB PO SCH ×3 (09:30→17:30)
[2016-06-24] MEDS: DILTIAZEM-CD 120 MG CAP ER PO SCH (09:30)
[2016-06-24] MEDS: CITALOPRAM HYDROBROMIDE 40 MG TAB PO SCH (09:30)
[2016-06-24] MEDS: CALCITRIOL 0.25 MCG CAP PO SCH (09:30)
[2016-06-24] MEDS: RIVAROXABAN 20 MG TAB PO SCH (09:30)
[2016-06-24] MEDS: CALCIUM/VITAMIN D 250 MG/125 U TAB PO SCH ×2 (09:30→21:05)
[2016-06-24] MEDS: PANTOPRAZOLE SOD 20 MG DELAYED RELEASE TAB PO SCH ×2 (09:30→21:05)
[2016-06-24] MEDS: FERROUS SULFATE 325 MG (65 MG ELEMENTAL IRON) TAB PO SCH (09:30)
[2016-06-24] MEDS: NYSTATIN 100,000 UNIT/GM CREAM 15 GM TOPICAL SCH ×2 (09:42→21:06)
[2016-06-24 12:03] VITALS: BP 128/65; PULSE 98; RESP 18; TEMP 97.9; O2SAT 91
--- NOTE | 2016-06-24 12:22 | PD.CAR.PN ---
CVT Progress Note Subjective/Hospital Course: 70-year-old female with a complex medical and surgical history of peripheral vascular disease and multiple related problems presents now status post BK amputation about a month half ago. Patient went to [facility] and apparently braced herself on the stump several times in bed in hit it against either floor or the chair not quite clear. Part of the stump opened up and at this point patient is dehiscence of skin deeper tissue seemed to be still intact. 06/16/16 Patient underwent yesterday debridement of the stump with wound VAC placement. The dehiscence is fortunately superficial involving skin and muscle in this as been debrided successfully while the rest of the tissues of bleeding and are viable. Wound VAC has been placed Cultures have been reviewed and antibiotics can be adjusted by medicine as appropriate We'll continue current care and patient should be able to go to [facility]ial with a wound VAC by Sunday Patient's nutritional status is very poor with a low albumen and prealbumin level and therefore nutritional evaluation and recommendations are requested I believe the patient is not taking sufficient by mouth in the custodial and may need supplemental enteral or parenteral feedings at this point 06/17/16 I reviewed the nutritional parameters and patient's prealbumin and transferrin levels a critically low indicating severe malnutrition. Patient's healing is impaired and so is the rehabilitative potential. After reviewing to nutritional recommendations once these are made, we will decide whether patient needs an Hdczbf-r-Ehki placed for additional parenteral nutrition for short bowel syndrome Stump is nice and clean with minimal drainage from the wound VAC 06/19/16 Still awaiting nutritional consult and evaluation for patient has short gut syndrome and will probably need additional parenteral feedings. If so patient will need Yuctbp-g-Eqid placement for additional feedings Patient is taking excellent by mouth but despite that her nutritional status is poor and hence the healing issues Left BKA stump incision is clean and wound VAC is in place with minimal drainage and will need to be changed today Awaiting wound care to change the wound VAC. Infectious disease help is much appreciated 06/20/2016 Patient doing well at this time. Stump is clean and the wound VAC will be changed today Patient had Igdrql-g-Uaxd placed by radiology for supplemental parenteral feedings. Grateful for the nutritional evaluation. Patient will be placed on TPN at about the 1500 non-protein calories a day split about 60-70% in glucose and about 30% in form of lipids Patient will likely have to be discharged on supplemental TPN in face of her short bowel syndrome 06/21/16 Patient is doing really well at this time She's taking good by mouth diet. 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 There is some granulation tissue which may eventually need to be debrided but at this point I would leave it alone. Stump wound VAC has been changed and this is clean and granulating nicely. Patient is currently on TPN which tolerating well. In face of her short bowel syndrome patient will need TPN after discharge from the hospital. Grateful to case management for making arrangements for the same 06/22/16 Vital signs stable patient is doing well. Her appetite has improved and patient is taking good by mouth diet and having regular bowel movements. The abdominal incision is completely healed and fistula has completely resolved. The BKA wound VAC has been changed and wound is clean and granulating nicely. Wmlhgz-q-Dqix is being used for additional parenteral feedings necessary and short bowel syndrome and patient will be discharged on TPN. 06/23/16 Patient underwent today change of the wound VAC and the wound is clean. Next with will be the last wound VAC change and after that I plan to take the patient to the OR for irrigation and closure of the wound by the middle of the next week. 06/23/16 Patient doing very well at this time she is in a good mood and taking by mouth diet well Unfortunately due to the short bowel syndrome she need supplemental TPN feedings at this time Stump is healed nicely there is a small scab anterior to it and this should allow to fall off on its own Once the arrangements are made for outpatient TPN patient will be able to be discharged Awaiting case management to make the arrangements for outpatient TPN Objective: Vital Signs Date Time Temp Pulse Resp B/P Pulse Ox O2 Delivery O2 Flow Rate FiO2 06/24/16 12:12 Room Air 06/24/16 09:47 Room Air 06/24/16 08:03 98.0 96 18 125/63 90 06/24/16 04:00 99.8 104 18 126/64 92 06/24/16 00:00 99.4 107 18 120/63 91 06/23/16 20:00 92 Room Air 06/23/16 20:00 97.5 90 18 128/71 92 06/23/16 16:00 97.0 90 18 147/77 92 Labs: Laboratory Tests Test 06/24/16 05:30 White Blood Count 8.5 TH/MM3 (4.0-11.0) Red Blood Count 2.76 MIL/MM3 (4.00-5.30) Hemoglobin 8.4 GM/DL (11.6-15.3) Hematocrit 25.2 % (35.0-46.0) Mean Corpuscular Volume 91.3 FL (80.0-100.0) Mean Corpuscular Hemoglobin 30.5 PG (27.0-34.0) Mean Corpuscular Hemoglobin 33.4 % Concent (32.0-36.0) Red Cell Distribution Width 23.3 % (11.6-17.2) Platelet Count 287 TH/MM3 (150-450) Mean Platelet Volume 8.6 FL (7.0-11.0) Sodium Level 143 MEQ/L (136-145) Potassium Level 3.6 MEQ/L (3.5-5.1) Chloride Level 107 MEQ/L (98-107) Carbon Dioxide Level 31.7 MEQ/L (21.0-32.0) Anion Gap 4 MEQ/L (5-15) Blood Urea Nitrogen 4 MG/DL (7-18) Creatinine 0.38 MG/DL (0.50-1.00) Estimat Glomerular Filtration 168 ML/MIN Rate (>89) Random Glucose 95 MG/DL (74-106) Calcium Level 7.3 MG/DL (8.5-10.1) Protein Corrected Calcium 8.7 MG/DL (8.5-10.1) Total Protein 4.7 GM/DL (6.4-8.2) Result Diagram: 06/24/16 0530 06/24/16 0530 Janice Olvera MD Jun 24, 2016 12:22
[2016-06-24] MEDS: RESP: ALBUTEROL 2.5 MG/IPRATROPIUM 0.5 MG NEB (PRN) NEB (13:12)
[2016-06-24 16:26] VITALS: BP 122/65; PULSE 100; RESP 18; TEMP 98; O2SAT 91
--- NOTE | 2016-06-24 16:52 | HHI.PR ---
Subjective Remarks Patient reports that she is doing okay except for pain on the left lower extremity that is controlled with the medication. No shortness of breath. Objective Vitals Vital Signs Date Time Temp Pulse Resp B/P Pulse Ox O2 Delivery O2 Flow Rate FiO2 06/24/16 16:26 98.0 100 18 122/65 91 06/24/16 16:00 Room Air 06/24/16 12:12 Room Air 06/24/16 12:03 97.9 98 18 128/65 91 06/24/16 09:47 Room Air 06/24/16 08:03 98.0 96 18 125/63 90 06/24/16 04:00 99.8 104 18 126/64 92 06/24/16 00:00 99.4 107 18 120/63 91 06/23/16 20:00 92 Room Air 06/23/16 20:00 97.5 90 18 128/71 92 I/O 06/23/16 06/23/16 06/23/16 06/24/16 06/24/16 06/24/16 07:00 15:00 23:00 07:00 15:00 23:00 Intake Total 240 ml 480 ml 240 ml 745 ml Output Total 925 ml Balance 240 ml 480 ml -685 ml 745 ml Intake Oral 240 ml 480 ml 240 ml TPN/PPN 512 ml Lipid 233 ml Output Urine Total 925 ml # Voids 2 3 # Bowel Movements 0 5 0 Result Diagram: 06/24/16 0530 06/24/16 0530 Objective Remarks GENERAL: Chronically ill-appearing patient. SKIN: Abdomen with 1 small enterocutaneous fistula, minimal drainage. CARDIOVASCULAR: Regular rate and rhythm without murmurs, gallops, or rubs. RESPIRATORY: Clear to auscultation. Breath sounds equal bilaterally. No wheezes , rales, or rhonchi. GASTROINTESTINAL: Abdomen soft, non-tender, nondistended. No hepato-splenomegaly , or palpable masses. No guarding. MUSCULOSKELETAL: Left BKA wound vac in place. Very tender to palpation NEUROLOGICAL: Awake and alert. Normal speech. Procedures Left stump debridement by Dr. Hill on 06/15/16 A/P Problem List: (1) Infection of amputation stump Status: Acute (2) Enterocutaneous fistula Status: Chronic (3) Hypercoagulable state Status: Acute (4) HTN (hypertension) Status: Acute (5) Anxiety about health Status: Acute Assessment and Plan The patient is a 70-year-old female with a medical history significant for ischemic bowel with resection and development of chronic enterocutaneous fistula , asthma, depression, COPD, severe peripheral vascular disease status post left BKA. The patient was discharged from the hospital on 06/06/16 to [facility]. The stitches on the left stump were taken out 2 weeks ago. She reports that the wound has been opening up when she participated with physical therapy. She returned due to wound dehiscence and infection. She was admitted by the vascular surgery service, Dr. Hill for debridement. Infected left stump: Patient status post BKA on 05/02/16. - Surgery following. S/P debridement. Wound cultures growing Klebsiella ESBL positive and Morganella. -Patient was followed by ID. She was treated with IV Zerbaxa per ID, Micro with sensitivity testing on Zerbaxa and Avycaz . Antibiotics have since been discontinued. Monitor off antibiotics. - Dilaudid IV for breakthrough pain. Continue Percocet Hypercoagulable state: History of ischemic bowel and severe peripheral vascular disease. - Xarelto restarted Malnutrition, moderate calorie insufficiency: Patient has an Lmalwk-y-Tved and is on TPN per surgery. Vaginal itching: Danni vaginitis. Status post 1 dose of Diflucan, she will need follow up as an outpatient for further workup Anxiety and depression: - Continue Celexa and Xanax. Hypokalemia: Replace and monitor. COPD: Breathing treatments as needed. GERD: Continue PPI GI prophylaxis: PPI. Stool softener PRN constipation. DVT PPx: Xarelto Discharge Planning DC planning per Dr. Hill, patient may be discharged once TPN has been arranged for outpatient. Manolo Holm MD Jun 24, 2016 16:51
[2016-06-24 20:00] VITALS: BP 131/64; PULSE 89; RESP 13; TEMP 97.6; O2SAT 95
[2016-06-24] MEDS: CLINIMIX E 4.25/25 1000 mL- </= 42 mls/hr IV-CENTRAL SCH ×3 (21:03)
[2016-06-24] MEDS: FAT EMULSION 20% INJ 250 ML (Daily over 8 hours) IV-CENTRAL SCH (21:05)
[2016-06-24] MEDS: GABAPENTIN 100 MG CAP PO SCH (21:05)
[2016-06-25] VITALS (9 sets, daily range): BP systolic 122–147; BP diastolic 60–71; PULSE 90–100; RESP 15–20; TEMP 97.5–98.7; O2SAT 91–99
[2016-06-25] MEDS: oxyCODONE/ACETAMINOPHEN 10 MG/325 MG TAB PO PRN ×3 (03:36→20:20)
[2016-06-25] MEDS: RESP: ALBUTEROL 2.5 MG/IPRATROPIUM 0.5 MG NEB (PRN) NEB ×3 (04:02→19:42)
--- NOTE | 2016-06-25 08:26 | PD.CAR.PN ---
CVT Progress Note Subjective/Hospital Course: 70-year-old female with a complex medical and surgical history of peripheral vascular disease and multiple related problems presents now status post BK amputation about a month half ago. Patient went to [facility] and apparently braced herself on the stump several times in bed in hit it against either floor or the chair not quite clear. Part of the stump opened up and at this point patient is dehiscence of skin deeper tissue seemed to be still intact. 06/16/16 Patient underwent yesterday debridement of the stump with wound VAC placement. The dehiscence is fortunately superficial involving skin and muscle in this as been debrided successfully while the rest of the tissues of bleeding and are viable. Wound VAC has been placed Cultures have been reviewed and antibiotics can be adjusted by medicine as appropriate We'll continue current care and patient should be able to go to [facility] with a wound VAC by Sunday Patient's nutritional status is very poor with a low albumen and prealbumin level and therefore nutritional evaluation and recommendations are requested I believe the patient is not taking sufficient by mouth in the [facility] and may need supplemental enteral or parenteral feedings at this point 06/17/16 I reviewed the nutritional parameters and patient's prealbumin and transferrin levels a critically low indicating severe malnutrition. Patient's healing is impaired and so is the rehabilitative potential. After reviewing to nutritional recommendations once these are made, we will decide whether patient needs an Uxeaeg-i-Npjd placed for additional parenteral nutrition for short bowel syndrome Stump is nice and clean with minimal drainage from the wound VAC 06/19/16 Still awaiting nutritional consult and evaluation for patient has short gut syndrome and will probably need additional parenteral feedings. If so patient will need Zwxpgx-c-Hktv placement for additional feedings Patient is taking excellent by mouth but despite that her nutritional status is poor and hence the healing issues Left BKA stump incision is clean and wound VAC is in place with minimal drainage and will need to be changed today Awaiting wound care to change the wound VAC. Infectious disease help is much appreciated 06/20/2016 Patient doing well at this time. Stump is clean and the wound VAC will be changed today Patient had Zqhoof-v-Gsrt placed by radiology for supplemental parenteral feedings. Grateful for the nutritional evaluation. Patient will be placed on TPN at about the 1500 non-protein calories a day split about 60-70% in glucose and about 30% in form of lipids Patient will likely have to be discharged on supplemental TPN in face of her short bowel syndrome 06/21/16 Patient is doing really well at this time She's taking good by mouth diet. 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 There is some granulation tissue which may eventually need to be debrided but at this point I would leave it alone. Stump wound VAC has been changed and this is clean and granulating nicely. Patient is currently on TPN which tolerating well. In face of her short bowel syndrome patient will need TPN after discharge from the hospital. Grateful to case management for making arrangements for the same 06/22/16 Vital signs stable patient is doing well. Her appetite has improved and patient is taking good by mouth diet and having regular bowel movements. The abdominal incision is completely healed and fistula has completely resolved. The BKA wound VAC has been changed and wound is clean and granulating nicely. Lphxma-b-Fwim is being used for additional parenteral feedings necessary and short bowel syndrome and patient will be discharged on TPN. 06/23/16 Patient underwent today change of the wound VAC and the wound is clean. Next with will be the last wound VAC change and after that I plan to take the patient to the OR for irrigation and closure of the wound by the middle of the next week. 06/24/16 Patient doing very well at this time she is in a good mood and taking by mouth diet well Unfortunately due to the short bowel syndrome she need supplemental TPN feedings at this time Stump is healed nicely there is a small scab anterior to it and this should allow to fall off on its own Once the arrangements are made for outpatient TPN patient will be able to be discharged Awaiting case management to make the arrangements for outpatient TPN 06/25/16 Vital signs stable Patient is awake and alert and oriented, taking by mouth diet very well Abdomen is soft and the colocutaneous fistula is completely closed The BKA stump has an eschar and a scab but I would leave this alone because underneath its healing nicely. Patient remains on TPN considering the short gut syndrome and will go home on the same Mild anemia is dilutional due to TPN administration and intravenous fluids and does not require therapy at this time Objective: Vital Signs Date Time Temp Pulse Resp B/P Pulse Ox O2 Delivery O2 Flow Rate FiO2 06/25/16 07:16 98.0 90 15 134/70 99 06/25/16 04:05 94 Nasal Cannula 2.00 06/25/16 04:00 Nasal Cannula 2.00 06/25/16 00:00 98.5 100 15 139/71 99 06/25/16 00:00 Room Air 06/24/16 20:00 97.6 89 13 131/64 95 06/24/16 20:00 Room Air 06/24/16 16:26 98.0 100 18 122/65 91 06/24/16 16:00 Room Air 06/24/16 12:12 Room Air 06/24/16 12:03 97.9 98 18 128/65 91 06/24/16 09:47 Room Air Result Diagram: 06/24/16 0530 06/24/16 0530 Janice Olvera MD Jun 25, 2016 08:26
[2016-06-25] MEDS: SODIUM CHLORIDE 0.9% FLUSH 5 ML FLUSH IV FLUSH SCH ×2 (09:00→22:26)
[2016-06-25] MEDS: NYSTATIN 100,000 UNIT/GM CREAM 15 GM TOPICAL SCH ×2 (09:00→21:00)
[2016-06-25] MEDS: HYDROmorphone HCL PF 1 MG/ML VIAL IV PUSH PRN ×2 (10:01→22:26)
[2016-06-25] MEDS: RIVAROXABAN 20 MG TAB PO SCH (10:04)
[2016-06-25] MEDS: PANTOPRAZOLE SOD 20 MG DELAYED RELEASE TAB PO SCH ×2 (10:04→21:00)
[2016-06-25] MEDS: LACTOBACILLUS ACIDOPHILUS TAB PO SCH ×3 (10:04→17:20)
[2016-06-25] MEDS: FERROUS SULFATE 325 MG (65 MG ELEMENTAL IRON) TAB PO SCH (10:05)
[2016-06-25] MEDS: CALCIUM/VITAMIN D 250 MG/125 U TAB PO SCH ×2 (10:05→21:00)
[2016-06-25] MEDS: DILTIAZEM-CD 120 MG CAP ER PO SCH (10:05)
[2016-06-25] MEDS: CALCITRIOL 0.25 MCG CAP PO SCH (10:06)
[2016-06-25] MEDS: CITALOPRAM HYDROBROMIDE 40 MG TAB PO SCH (10:06)
[2016-06-25] MEDS: ALPRAZolam 0.25 MG TAB PO PRN ×2 (13:37→20:20)
--- NOTE | 2016-06-25 13:51 | HHI.PR ---
Subjective Remarks Patient complains of pain in the low on the right lower calf and right thigh. Movement of the right lower extremity is limited secondary to pain. Objective Vitals Vital Signs Date Time Temp Pulse Resp B/P Pulse Ox O2 Delivery O2 Flow Rate FiO2 06/25/16 10:00 Nasal Cannula 2.00 06/25/16 09:15 97.5 93 18 125/60 94 06/25/16 07:16 98.0 90 15 134/70 99 06/25/16 04:05 94 Nasal Cannula 2.00 06/25/16 04:00 Nasal Cannula 2.00 06/25/16 00:00 98.5 100 15 139/71 99 06/25/16 00:00 Room Air 06/24/16 20:00 97.6 89 13 131/64 95 06/24/16 20:00 Room Air 06/24/16 16:26 98.0 100 18 122/65 91 06/24/16 16:00 Room Air I/O 06/24/16 06/24/16 06/24/16 06/25/16 06/25/16 06/25/16 07:00 15:00 23:00 07:00 15:00 23:00 Intake Total 745 ml 720 ml 0 ml 1242 ml Output Total 100 ml Balance 745 ml 720 ml -100 ml 1242 ml Intake Oral 720 ml 0 ml TPN/PPN 512 ml 926 ml Lipid 233 ml 316 ml Output Urine Total 100 ml # Voids 3 # Bowel Movements 1 Result Diagram: 06/24/16 0530 06/24/16 0530 Objective Remarks GENERAL: Chronically ill-appearing patient. SKIN: Abdomen with 1 small enterocutaneous fistula, minimal drainage. CARDIOVASCULAR: Regular rate and rhythm without murmurs, gallops, or rubs. RESPIRATORY: Clear to auscultation. Breath sounds equal bilaterally. No wheezes , rales, or rhonchi. GASTROINTESTINAL: Abdomen soft, non-tender, nondistended. No hepato-splenomegaly , or palpable masses. No guarding. MUSCULOSKELETAL: Left BKA wound vac in place. Very tender to palpation. Right leg with a 3 cm lump over the anterior thigh. NEUROLOGICAL: Awake and alert. Normal speech. Procedures Left stump debridement by Dr. Hill on 06/15/16 A/P Problem List: (1) Infection of amputation stump Status: Acute (2) Enterocutaneous fistula Status: Chronic (3) Hypercoagulable state Status: Acute (4) HTN (hypertension) Status: Acute (5) Anxiety about health Status: Acute Assessment and Plan The patient is a 70-year-old female with a medical history significant for ischemic bowel with resection and development of chronic enterocutaneous fistula , asthma, depression, COPD, severe peripheral vascular disease status post left BKA. The patient was discharged from the hospital on 06/06/16 to a senior care facility for rehabilitation. The stitches on the left stump were taken out 2 weeks ago. She reports that the wound has been opening up when she participated with physical therapy. She returned due to wound dehiscence and infection. She was admitted by the vascular surgery service, Dr. Hill for debridement. Infected left stump: Patient status post BKA on 05/02/16. - Surgery following. S/P debridement. Wound cultures growing Klebsiella ESBL positive and Morganella. -Patient was followed by ID. She was treated with IV Zerbaxa per ID, Micro with sensitivity testing on Zerbaxa and Avycaz . Antibiotics have since been discontinued. Monitor off antibiotics. - Dilaudid IV for breakthrough pain. Continue Percocet Right leg pain: We'll obtain lower extremity Doppler to rule out DVT. Hypercoagulable state: History of ischemic bowel and severe peripheral vascular disease. - Xarelto restarted Malnutrition, moderate calorie insufficiency: Patient has an Iogqeh-h-Ydpf and is on TPN per surgery. Vaginal itching: Danni vaginitis. Status post 1 dose of Diflucan, she will need follow up as an outpatient for further workup Anxiety and depression: - Continue Celexa and Xanax. Hypokalemia: Replace and monitor. COPD: Breathing treatments as needed. GERD: Continue PPI GI prophylaxis: PPI. Stool softener PRN constipation. DVT PPx: Xarelto Discharge Planning DC planning per Dr. Hill, patient may be discharged once TPN has been arranged for outpatient. Manolo Holm MD Jun 25, 2016 13:51
--- NOTE | 2016-06-25 17:02 | RADRPT ---
EXAM DATE/TIME: 06/25/2016 15:56 [facility] COMPARISON: No previous studies available for comparison. INDICATIONS : Right lower extremity swelling and pain. MEDICAL HISTORY : Chronic obstructive pulmonary disease. Hypertension. Gastroesophageal reflux disease. Atrial fibri llation. Emphysema. Peritoneal abscess. Ectopic . Arthritis. Anemia. Carcinoma, skin and kali ast. SURGICAL HISTORY : Mastectomy, right. Hysterectomy. Eye surgery. Arteriovenous shunt, leg. Amputation, left leg. ENCOUNTER: Initial ACUITY: 1 week PAIN SCORE: 3/10 LOCATION: Right leg. TECHNIQUE: Venous ultrasound of the leg was performed from the inguinal ligament to the proximal calf. Real-tino e, color Doppler and spectral tracing, compression and augmentation techniques were used. FINDINGS: There is normal compressibility of the deep venous system from the inguinal region to the proximal ca lf. No echogenic clot is seen in the lumen of the common femoral, femoral, popliteal, and posterior tibial veins. There is a normal response of the venous system to proximal and distal augmentation an d respiration. There is soft tissue edema in the lateral mid thigh. CONCLUSION: Negative exam with no evidence of deep venous thrombosis. Soft tissue edema. Mike Leija MD on June 25, 2016 at 16:59 Board Certified Radiologist. This report was verified electronically.
[2016-06-25] MEDS: CLINIMIX E 4.25/25 1000 mL- </= 42 mls/hr IV-CENTRAL SCH ×3 (20:00)
[2016-06-25] MEDS: FAT EMULSION 20% INJ 250 ML (Daily over 8 hours) IV-CENTRAL SCH (20:00)
[2016-06-25] MEDS: GABAPENTIN 100 MG CAP PO SCH (21:00)
[2016-06-26] VITALS (8 sets, daily range): BP systolic 103–159; BP diastolic 60–80; PULSE 93–113; RESP 18–20; TEMP 97.3–98.8; O2SAT 90–95
[2016-06-26] MEDS: RESP: ALBUTEROL 2.5 MG/IPRATROPIUM 0.5 MG NEB (PRN) NEB ×3 (00:28→20:46)
[2016-06-26] MEDS: SODIUM CHLORIDE 0.9% FLUSH 5 ML FLUSH IV FLUSH PRN (02:12)
[2016-06-26] MEDS: HYDROmorphone HCL PF 1 MG/ML VIAL IV PUSH PRN ×4 (02:12→21:02)
[2016-06-26] MEDS: CALCITRIOL 0.25 MCG CAP PO SCH (08:43)
[2016-06-26] MEDS: RIVAROXABAN 20 MG TAB PO SCH (08:43)
[2016-06-26] MEDS: CITALOPRAM HYDROBROMIDE 40 MG TAB PO SCH (08:44)
[2016-06-26] MEDS: FERROUS SULFATE 325 MG (65 MG ELEMENTAL IRON) TAB PO SCH (08:44)
[2016-06-26] MEDS: oxyCODONE/ACETAMINOPHEN 10 MG/325 MG TAB PO PRN ×2 (08:49→13:13)
[2016-06-26] MEDS: CALCIUM/VITAMIN D 250 MG/125 U TAB PO SCH ×2 (08:50→20:52)
[2016-06-26] MEDS: DILTIAZEM-CD 120 MG CAP ER PO SCH (08:50)
[2016-06-26] MEDS: PANTOPRAZOLE SOD 20 MG DELAYED RELEASE TAB PO SCH ×2 (08:50→20:52)
[2016-06-26] MEDS: SODIUM CHLORIDE 0.9% FLUSH 5 ML FLUSH IV FLUSH SCH ×2 (08:51→20:50)
[2016-06-26] MEDS: NYSTATIN 100,000 UNIT/GM CREAM 15 GM TOPICAL SCH ×2 (08:51→21:05)
[2016-06-26] MEDS: LACTOBACILLUS ACIDOPHILUS TAB PO SCH ×3 (08:59→17:57)
[2016-06-26 10:01] LABS: HEMATOCRIT 28.5 % (35.0-46.0); MEAN CELL VOLUME 94.2 FL (80.0-100.0); MEAN CORPUSCULAR HEMOGLOBIN 31.5 PG (27.0-34.0); MEAN CORPUSCULAR HGB CONC 33.5 % (32.0-36.0); PLATELET COUNT 259 TH/MM3 (150-450); RED BLOOD COUNT 3.02 MIL/MM3 (4.00-5.30); RED CELL DISTRIBUTION WIDTH 24.4 % (11.6-17.2); REVIEW FLAG FINAL; WHITE BLOOD COUNT 9.1 TH/MM3 (4.0-11.0)
[2016-06-26 10:28] LABS: BICARBONATE 31.5 MEQ/L (21.0-32.0); POTASSIUM 3.6 MEQ/L (3.5-5.1)
--- NOTE | 2016-06-26 14:32 | HHI.PR ---
Subjective Remarks Patient reports that she is feeling okay. Persistent pain bilateral lower extremities. Pain is controlled with medications. Objective Vitals Vital Signs Date Time Temp Pulse Resp B/P Pulse Ox O2 Delivery O2 Flow Rate FiO2 06/26/16 12:00 97.8 111 20 135/70 93 06/26/16 09:54 90 21 06/26/16 09:00 Room Air 06/26/16 08:00 97.9 113 18 141/71 94 06/26/16 04:00 97.3 103 18 139/76 92 06/26/16 00:00 97.4 103 20 142/70 93 06/25/16 20:00 Nasal Cannula 2.00 06/25/16 20:00 98.6 100 20 143/71 92 06/25/16 19:42 94 Nasal Cannula 1.50 06/25/16 16:00 98.7 98 18 122/67 94 I/O 06/25/16 06/25/16 06/25/16 06/26/16 06/26/16 06/26/16 07:00 15:00 23:00 07:00 15:00 23:00 Intake Total 1242 ml 550 ml 853 ml Output Total 750 ml Balance 1242 ml -200 ml 853 ml Intake Oral 550 ml 360 ml TPN/PPN 926 ml 246 ml Lipid 316 ml 247 ml Output Urine Total 700 ml Stool Total 50 ml # Voids 4 # Bowel Movements 0 Result Diagram: 06/26/16 0900 06/26/16 0900 Objective Remarks GENERAL: Chronically ill-appearing patient. SKIN: Abdomen with 1 small enterocutaneous fistula, minimal drainage. CARDIOVASCULAR: Regular rate and rhythm without murmurs, gallops, or rubs. RESPIRATORY: Clear to auscultation. Breath sounds equal bilaterally. No wheezes , rales, or rhonchi. GASTROINTESTINAL: Abdomen soft, non-tender, nondistended. No hepato-splenomegaly , or palpable masses. No guarding. MUSCULOSKELETAL: Left BKA wound vac in place. Very tender to palpation. Right leg with a 3 cm lump over the anterior thigh. NEUROLOGICAL: Awake and alert. Normal speech. Procedures Left stump debridement by Dr. Hill on 06/15/16 A/P Problem List: (1) Infection of amputation stump Status: Acute (2) Enterocutaneous fistula Status: Chronic (3) Hypercoagulable state Status: Acute (4) HTN (hypertension) Status: Acute (5) Anxiety about health Status: Acute Assessment and Plan The patient is a 70-year-old female with a medical history significant for ischemic bowel with resection and development of chronic enterocutaneous fistula , asthma, depression, COPD, severe peripheral vascular disease status post left BKA. The patient was discharged from the hospital on 06/06/16 to a alf facility for rehabilitation. The stitches on the left stump were taken out 2 weeks ago. She reports that the wound has been opening up when she participated with physical therapy. She returned due to wound dehiscence and infection. She was admitted by the vascular surgery service, Dr. Hill for debridement. Infected left stump: Patient status post BKA on 05/02/16. - Surgery following. S/P debridement. Wound cultures growing Klebsiella ESBL positive and Morganella. -Patient was followed by ID. She was treated with IV Zerbaxa per ID, Micro with sensitivity testing on Zerbaxa and Avycaz . Antibiotics have since been discontinued. Monitor off antibiotics. - Dilaudid IV for breakthrough pain. Continue Percocet Right leg pain: Ultrasound negative for DVT. Soft tissue swelling. Consult PT. Hypercoagulable state: History of ischemic bowel and severe peripheral vascular disease. - Xarelto restarted Malnutrition, moderate calorie insufficiency: Patient has an Iyljqp-e-Lrnb and is on TPN per surgery. Vaginal itching: Danni vaginitis. Status post 1 dose of Diflucan, she will need follow up as an outpatient for further workup Anxiety and depression: - Continue Celexa and Xanax. Hypokalemia: Replace and monitor. COPD: Breathing treatments as needed. GERD: Continue PPI GI prophylaxis: PPI. Stool softener PRN constipation. DVT PPx: Xarelto Discharge Planning DC planning per Dr. Hill, patient may be discharged once TPN has been arranged for outpatient. Manolo Holm MD Jun 26, 2016 14:31
--- NOTE | 2016-06-26 19:19 | PD.CAR.PN ---
CVT Progress Note Subjective/Hospital Course: 70-year-old female with a complex medical and surgical history of peripheral vascular disease and multiple related problems presents now status post BK amputation about a month half ago. Patient went to half-way and apparently braced herself on the stump several times in bed in hit it against either floor or the chair not quite clear. Part of the stump opened up and at this point patient is dehiscence of skin deeper tissue seemed to be still intact. 06/16/16 Patient underwent yesterday debridement of the stump with wound VAC placement. The dehiscence is fortunately superficial involving skin and muscle in this as been debrided successfully while the rest of the tissues of bleeding and are viable. Wound VAC has been placed Cultures have been reviewed and antibiotics can be adjusted by medicine as appropriate We'll continue current care and patient should be able to go to half-way with a wound VAC by Sunday Patient's nutritional status is very poor with a low albumen and prealbumin level and therefore nutritional evaluation and recommendations are requested I believe the patient is not taking sufficient by mouth in the half-way and may need supplemental enteral or parenteral feedings at this point 06/17/16 I reviewed the nutritional parameters and patient's prealbumin and transferrin levels a critically low indicating severe malnutrition. Patient's healing is impaired and so is the rehabilitative potential. After reviewing to nutritional recommendations once these are made, we will decide whether patient needs an Usvrax-m-Icip placed for additional parenteral nutrition for short bowel syndrome Stump is nice and clean with minimal drainage from the wound VAC 06/19/16 Still awaiting nutritional consult and evaluation for patient has short gut syndrome and will probably need additional parenteral feedings. If so patient will need Fudxkl-h-Xowm placement for additional feedings Patient is taking excellent by mouth but despite that her nutritional status is poor and hence the healing issues Left BKA stump incision is clean and wound VAC is in place with minimal drainage and will need to be changed today Awaiting wound care to change the wound VAC. Infectious disease help is much appreciated 06/20/2016 Patient doing well at this time. Stump is clean and the wound VAC will be changed today Patient had Pulvpj-m-Emjb placed by radiology for supplemental parenteral feedings. Grateful for the nutritional evaluation. Patient will be placed on TPN at about the 1500 non-protein calories a day split about 60-70% in glucose and about 30% in form of lipids Patient will likely have to be discharged on supplemental TPN in face of her short bowel syndrome 06/21/16 Patient is doing really well at this time She's taking good by mouth diet. 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 There is some granulation tissue which may eventually need to be debrided but at this point I would leave it alone. Stump wound VAC has been changed and this is clean and granulating nicely. Patient is currently on TPN which tolerating well. In face of her short bowel syndrome patient will need TPN after discharge from the hospital. Grateful to case management for making arrangements for the same 06/22/16 Vital signs stable patient is doing well. Her appetite has improved and patient is taking good by mouth diet and having regular bowel movements. The abdominal incision is completely healed and fistula has completely resolved. The BKA wound VAC has been changed and wound is clean and granulating nicely. Dfltbh-r-Usjw is being used for additional parenteral feedings necessary and short bowel syndrome and patient will be discharged on TPN. 06/23/16 Patient underwent today change of the wound VAC and the wound is clean. Next with will be the last wound VAC change and after that I plan to take the patient to the OR for irrigation and closure of the wound by the middle of the next week. 06/24/16 Patient doing very well at this time she is in a good mood and taking by mouth diet well Unfortunately due to the short bowel syndrome she need supplemental TPN feedings at this time Stump is healed nicely there is a small scab anterior to it and this should allow to fall off on its own Once the arrangements are made for outpatient TPN patient will be able to be discharged Awaiting case management to make the arrangements for outpatient TPN 06/25/16 Vital signs stable Patient is awake and alert and oriented, taking by mouth diet very well Abdomen is soft and the colocutaneous fistula is completely closed The BKA stump has an eschar and a scab but I would leave this alone because underneath its healing nicely. Patient remains on TPN considering the short gut syndrome and will go home on the same Mild anemia is dilutional due to TPN administration and intravenous fluids and does not require therapy at this time 06/26/16 Vital signs stable Patient is awake and alert and oriented, taking by mouth diet very well Abdomen is soft and the colocutaneous fistula is completely closed The BKA stump has an eschar and a scab but I would leave this alone because underneath its healing nicely. Patient remains on TPN considering the short gut syndrome and will go home on the same Mild anemia is dilutional due to TPN administration and intravenous fluids and does not require therapy at this time Objective: Vital Signs Date Time Temp Pulse Resp B/P Pulse Ox O2 Delivery O2 Flow Rate FiO2 06/26/16 16:00 98.2 93 18 103/60 90 06/26/16 12:00 97.8 111 20 135/70 93 06/26/16 09:54 90 21 06/26/16 09:00 Room Air 06/26/16 08:00 97.9 113 18 141/71 94 06/26/16 04:00 97.3 103 18 139/76 92 06/26/16 00:00 97.4 103 20 142/70 93 06/25/16 20:00 Nasal Cannula 2.00 06/25/16 20:00 98.6 100 20 143/71 92 06/25/16 19:42 94 Nasal Cannula 1.50 Labs: Laboratory Tests Test 06/26/16 09:00 White Blood Count 9.1 TH/MM3 (4.0-11.0) Red Blood Count 3.02 MIL/MM3 (4.00-5.30) Hemoglobin 9.5 GM/DL (11.6-15.3) Hematocrit 28.5 % (35.0-46.0) Mean Corpuscular Volume 94.2 FL (80.0-100.0) Mean Corpuscular Hemoglobin 31.5 PG (27.0-34.0) Mean Corpuscular Hemoglobin 33.5 % Concent (32.0-36.0) Red Cell Distribution Width 24.4 % (11.6-17.2) Platelet Count 259 TH/MM3 (150-450) Mean Platelet Volume 9.1 FL (7.0-11.0) Sodium Level 143 MEQ/L (136-145) Potassium Level 3.6 MEQ/L (3.5-5.1) Chloride Level 105 MEQ/L (98-107) Carbon Dioxide Level 31.5 MEQ/L (21.0-32.0) Anion Gap 7 MEQ/L (5-15) Blood Urea Nitrogen 7 MG/DL (7-18) Creatinine 0.40 MG/DL (0.50-1.00) Estimat Glomerular Filtration 158 ML/MIN Rate (>89) Random Glucose 91 MG/DL (74-106) Calcium Level 8.0 MG/DL (8.5-10.1) Result Diagram: 06/26/16 0900 06/26/16 0900 Janice Olvera MD Jun 26, 2016 19:19
[2016-06-26] MEDS: CLINIMIX E 4.25/25 1000 mL- </= 42 mls/hr IV-CENTRAL SCH ×3 (20:47)
[2016-06-26] MEDS: FAT EMULSION 20% INJ 250 ML (Daily over 8 hours) IV-CENTRAL SCH (20:47)
[2016-06-26] MEDS: GABAPENTIN 100 MG CAP PO SCH (20:51)
[2016-06-26] MEDS: ALPRAZolam 0.25 MG TAB PO PRN (23:12)
[2016-06-27] VITALS: BP 156/91; PULSE 102; RESP 18; TEMP 97.6; O2SAT 94
[2016-06-27] MEDS: oxyCODONE/ACETAMINOPHEN 10 MG/325 MG TAB PO PRN ×4 (01:21→20:08)
[2016-06-27 04:00] VITALS: BP 130/71; PULSE 102; RESP 19; TEMP 98.3; O2SAT 92
[2016-06-27] MEDS: SODIUM CHLORIDE 0.9% FLUSH 5 ML FLUSH IV FLUSH PRN (05:09)
[2016-06-27] MEDS: HYDROmorphone HCL PF 1 MG/ML VIAL IV PUSH PRN ×2 (05:10→12:35)
[2016-06-27 08:00] VITALS: BP 131/66; PULSE 81; RESP 20; TEMP 98.1; O2SAT 99
[2016-06-27] MEDS: NYSTATIN 100,000 UNIT/GM CREAM 15 GM TOPICAL SCH ×2 (09:00→20:19)
[2016-06-27 09:36] LABS: HEMATOCRIT 26.6 % (35.0-46.0); MEAN CELL VOLUME 93.5 FL (80.0-100.0); MEAN CORPUSCULAR HEMOGLOBIN 31.7 PG (27.0-34.0); MEAN CORPUSCULAR HGB CONC 33.9 % (32.0-36.0); PLATELET COUNT 322 TH/MM3 (150-450); RED BLOOD COUNT 2.85 MIL/MM3 (4.00-5.30); RED CELL DISTRIBUTION WIDTH 24.7 % (11.6-17.2); REVIEW FLAG FINAL; WHITE BLOOD COUNT 8.8 TH/MM3 (4.0-11.0)
[2016-06-27 09:56] LABS: POTASSIUM 3.6 MEQ/L (3.5-5.1)
[2016-06-27] MEDS: LACTOBACILLUS ACIDOPHILUS TAB PO SCH ×2 (10:01→12:33)
[2016-06-27] MEDS: CITALOPRAM HYDROBROMIDE 40 MG TAB PO SCH (10:01)
[2016-06-27] MEDS: PANTOPRAZOLE SOD 20 MG DELAYED RELEASE TAB PO SCH ×2 (10:01→20:07)
[2016-06-27] MEDS: CALCITRIOL 0.25 MCG CAP PO SCH (10:01)
[2016-06-27] MEDS: CALCIUM/VITAMIN D 250 MG/125 U TAB PO SCH ×2 (10:01→20:07)
[2016-06-27] MEDS: DILTIAZEM-CD 120 MG CAP ER PO SCH (10:01)
[2016-06-27] MEDS: FERROUS SULFATE 325 MG (65 MG ELEMENTAL IRON) TAB PO SCH (10:01)
[2016-06-27] MEDS: SODIUM CHLORIDE 0.9% FLUSH 5 ML FLUSH IV FLUSH SCH ×2 (10:02→20:07)
[2016-06-27] MEDS: RIVAROXABAN 20 MG TAB PO SCH (10:02)
[2016-06-27 12:00] VITALS: BP 155/81; PULSE 80; RESP 20; TEMP 97; O2SAT 97
[2016-06-27] MEDS: ALPRAZolam 0.25 MG TAB PO PRN (12:33)
[2016-06-27] MEDS: RESP: ALBUTEROL 2.5 MG/IPRATROPIUM 0.5 MG NEB (PRN) NEB (12:51)
--- NOTE | 2016-06-27 14:14 | HHI.PR ---
Subjective Remarks No new complaints. Pain is controlled with pain meds. Objective Vitals Vital Signs Date Time Temp Pulse Resp B/P Pulse Ox O2 Delivery O2 Flow Rate FiO2 06/27/16 12:00 97.0 80 20 155/81 97 06/27/16 08:00 98.1 81 20 131/66 99 06/27/16 04:00 98.3 102 19 130/71 92 06/27/16 00:00 97.6 102 18 156/91 94 06/26/16 23:05 Nasal Cannula 2.00 06/26/16 20:47 93 Nasal Cannula 2.00 06/26/16 20:00 98.8 95 19 159/80 95 06/26/16 16:00 98.2 93 18 103/60 90 I/O 06/26/16 06/26/16 06/26/16 06/27/16 06/27/16 06/27/16 07:00 15:00 23:00 07:00 15:00 23:00 Intake Total 853 ml 360 ml 594 ml 360 ml Output Total 600 ml 850 ml Balance 853 ml 360 ml -6 ml -490 ml Intake Oral 360 ml 360 ml 240 ml 360 ml TPN/PPN 246 ml 354 ml Lipid 247 ml Output Urine Total 600 ml 850 ml # Voids 4 2 1 # Bowel Movements 0 1 2 2 Result Diagram: 06/27/1690106/27/16901 Objective Remarks GENERAL: Chronically ill-appearing patient. SKIN: Abdomen with 1 small enterocutaneous fistula, minimal drainage. CARDIOVASCULAR: Regular rate and rhythm without murmurs, gallops, or rubs. RESPIRATORY: Clear to auscultation. Breath sounds equal bilaterally. No wheezes , rales, or rhonchi. GASTROINTESTINAL: Abdomen soft, non-tender, nondistended. No hepato-splenomegaly , or palpable masses. No guarding. MUSCULOSKELETAL: Left BKA wound vac in place. Very tender to palpation. Right leg with a 3 cm lump over the anterior thigh. NEUROLOGICAL: Awake and alert. Normal speech. Procedures Left stump debridement by Dr. Hill on 06/15/16 A/P Problem List: (1) Infection of amputation stump Status: Acute (2) Enterocutaneous fistula Status: Chronic (3) Hypercoagulable state Status: Acute (4) HTN (hypertension) Status: Acute (5) Anxiety about health Status: Acute Assessment and Plan The patient is a 70-year-old female with a medical history significant for ischemic bowel with resection and development of chronic enterocutaneous fistula , asthma, depression, COPD, severe peripheral vascular disease status post left BKA. The patient was discharged from the hospital on 06/06/16 to a [facility] facility for rehabilitation. The stitches on the left stump were taken out 2 weeks ago. She reports that the wound has been opening up when she participated with physical therapy. She returned due to wound dehiscence and infection. She was admitted by the vascular surgery service, Dr. Hill for debridement. Infected left stump: Patient status post BKA on 05/02/16. - Surgery following. S/P debridement. Wound cultures growing Klebsiella ESBL positive and Morganella. -Patient was followed by ID. She was treated with IV Zerbaxa per ID, Micro with sensitivity testing on Zerbaxa and Avycaz . Antibiotics have since been discontinued. Monitor off antibiotics. - Dilaudid IV for breakthrough pain. Continue Percocet Right leg pain: Ultrasound negative for DVT. Soft tissue swelling. Consult PT. Hypercoagulable state: History of ischemic bowel and severe peripheral vascular disease. - Xarelto restarted Malnutrition, moderate calorie insufficiency: Patient has an Uqykql-m-Xxej and is on TPN per surgery. Vaginal itching: Danni vaginitis. Status post 1 dose of Diflucan, she will need follow up as an outpatient for further workup Anxiety and depression: - Continue Celexa and Xanax. Hypokalemia: Replace and monitor. COPD: Breathing treatments as needed. GERD: Continue PPI GI prophylaxis: PPI. Stool softener PRN constipation. DVT PPx: Xarelto Discharge Planning DC planning per Dr. Hill, patient may be discharged once TPN has been arranged for outpatient. Manolo Holm MD Jun 27, 2016 14:14
[2016-06-27 16:00] VITALS: BP 121/56; PULSE 94; RESP 20; TEMP 97.6; O2SAT 93
--- NOTE | 2016-06-27 16:11 | PD.CAR.PN ---
CVT Progress Note Subjective/Hospital Course: 70-year-old female with a complex medical and surgical history of peripheral vascular disease and multiple related problems presents now status post BK amputation about a month half ago. Patient went to half-way and apparently braced herself on the stump several times in bed in hit it against either floor or the chair not quite clear. Part of the stump opened up and at this point patient is dehiscence of skin deeper tissue seemed to be still intact. 06/16/16 Patient underwent yesterday debridement of the stump with wound VAC placement. The dehiscence is fortunately superficial involving skin and muscle in this as been debrided successfully while the rest of the tissues of bleeding and are viable. Wound VAC has been placed Cultures have been reviewed and antibiotics can be adjusted by medicine as appropriate We'll continue current care and patient should be able to go to half-way with a wound VAC by Sunday Patient's nutritional status is very poor with a low albumen and prealbumin level and therefore nutritional evaluation and recommendations are requested I believe the patient is not taking sufficient by mouth in the half-way and may need supplemental enteral or parenteral feedings at this point 06/17/16 I reviewed the nutritional parameters and patient's prealbumin and transferrin levels a critically low indicating severe malnutrition. Patient's healing is impaired and so is the rehabilitative potential. After reviewing to nutritional recommendations once these are made, we will decide whether patient needs an Zzxvvo-s-Qnkk placed for additional parenteral nutrition for short bowel syndrome Stump is nice and clean with minimal drainage from the wound VAC 06/19/16 Still awaiting nutritional consult and evaluation for patient has short gut syndrome and will probably need additional parenteral feedings. If so patient will need Vvqlsi-e-Snne placement for additional feedings Patient is taking excellent by mouth but despite that her nutritional status is poor and hence the healing issues Left BKA stump incision is clean and wound VAC is in place with minimal drainage and will need to be changed today Awaiting wound care to change the wound VAC. Infectious disease help is much appreciated 06/20/2016 Patient doing well at this time. Stump is clean and the wound VAC will be changed today Patient had Foahcd-v-Zhih placed by radiology for supplemental parenteral feedings. Grateful for the nutritional evaluation. Patient will be placed on TPN at about the 1500 non-protein calories a day split about 60-70% in glucose and about 30% in form of lipids Patient will likely have to be discharged on supplemental TPN in face of her short bowel syndrome 06/21/16 Patient is doing really well at this time She's taking good by mouth diet. 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 There is some granulation tissue which may eventually need to be debrided but at this point I would leave it alone. Stump wound VAC has been changed and this is clean and granulating nicely. Patient is currently on TPN which tolerating well. In face of her short bowel syndrome patient will need TPN after discharge from the hospital. Grateful to case management for making arrangements for the same 06/22/16 Vital signs stable patient is doing well. Her appetite has improved and patient is taking good by mouth diet and having regular bowel movements. The abdominal incision is completely healed and fistula has completely resolved. The BKA wound VAC has been changed and wound is clean and granulating nicely. Oegcmt-m-Neiz is being used for additional parenteral feedings necessary and short bowel syndrome and patient will be discharged on TPN. 06/23/16 Patient underwent today change of the wound VAC and the wound is clean. Next with will be the last wound VAC change and after that I plan to take the patient to the OR for irrigation and closure of the wound by the middle of the next week. 06/24/16 Patient doing very well at this time she is in a good mood and taking by mouth diet well Unfortunately due to the short bowel syndrome she need supplemental TPN feedings at this time Stump is healed nicely there is a small scab anterior to it and this should allow to fall off on its own Once the arrangements are made for outpatient TPN patient will be able to be discharged Awaiting case management to make the arrangements for outpatient TPN 06/25/16 Vital signs stable Patient is awake and alert and oriented, taking by mouth diet very well Abdomen is soft and the colocutaneous fistula is completely closed The BKA stump has an eschar and a scab but I would leave this alone because underneath its healing nicely. Patient remains on TPN considering the short gut syndrome and will go home on the same Mild anemia is dilutional due to TPN administration and intravenous fluids and does not require therapy at this time 06/26/16 Vital signs stable Patient is awake and alert and oriented, taking by mouth diet very well Abdomen is soft and the colocutaneous fistula is completely closed The BKA stump has an eschar and a scab but I would leave this alone because underneath its healing nicely. Patient remains on TPN considering the short gut syndrome and will go home on the same Mild anemia is dilutional due to TPN administration and intravenous fluids and does not require therapy at this time 06/27/16 Wound VAC has been removed by me and the the entire stump is healed very nicely except a small area but an inch length at the very lateral portion of the incision were we going to put a very small wound VAC on for another week or so. Patient can transfer to rehabilitation at any time as long as she can get intravenous TPN in the process Objective: Vital Signs Date Time Temp Pulse Resp B/P Pulse Ox O2 Delivery O2 Flow Rate FiO2 06/27/16 12:00 97.0 80 20 155/81 97 06/27/16 08:00 98.1 81 20 131/66 99 06/27/16 04:00 98.3 102 19 130/71 92 06/27/16 00:00 97.6 102 18 156/91 94 06/26/16 23:05 Nasal Cannula 2.00 06/26/16 20:47 93 Nasal Cannula 2.00 06/26/16 20:00 98.8 95 19 159/80 95 Labs: Laboratory Tests Test 06/27/16 09:02 White Blood Count 8.8 TH/MM3 (4.0-11.0) Red Blood Count 2.85 MIL/MM3 (4.00-5.30) Hemoglobin 9.0 GM/DL (11.6-15.3) Hematocrit 26.6 % (35.0-46.0) Mean Corpuscular Volume 93.5 FL (80.0-100.0) Mean Corpuscular Hemoglobin 31.7 PG (27.0-34.0) Mean Corpuscular Hemoglobin 33.9 % Concent (32.0-36.0) Red Cell Distribution Width 24.7 % (11.6-17.2) Platelet Count 322 TH/MM3 (150-450) Mean Platelet Volume 8.3 FL (7.0-11.0) Sodium Level 141 MEQ/L (136-145) Potassium Level 3.6 MEQ/L (3.5-5.1) Chloride Level 102 MEQ/L (98-107) Carbon Dioxide Level 34.0 MEQ/L (21.0-32.0) Anion Gap 5 MEQ/L (5-15) Blood Urea Nitrogen 7 MG/DL (7-18) Creatinine 0.48 MG/DL (0.50-1.00) Estimat Glomerular Filtration 128 ML/MIN Rate (>89) Random Glucose 86 MG/DL (74-106) Calcium Level 7.9 MG/DL (8.5-10.1) Result Diagram: 06/27/16 0902 06/27/16 0902 Janice Olvera MD Jun 27, 2016 16:11
[2016-06-27] MEDS: CLINIMIX E 4.25/25 1000 mL- </= 42 mls/hr IV-CENTRAL SCH ×3 (18:24)
[2016-06-27 20:00] VITALS: BP 138/82; PULSE 68; RESP 20; TEMP 97.9; O2SAT 97
[2016-06-27] MEDS: FAT EMULSION 20% INJ 250 ML (Daily over 8 hours) IV-CENTRAL SCH (20:03)
[2016-06-27] MEDS: GABAPENTIN 100 MG CAP PO SCH (20:07)
[2016-06-28] VITALS: BP 130/82; PULSE 66; RESP 20; TEMP 97; O2SAT 97
[2016-06-28] MEDS: HYDROmorphone HCL PF 1 MG/ML VIAL IV PUSH PRN ×4 (00:54→20:42)
[2016-06-28] MEDS: SODIUM CHLORIDE 0.9% FLUSH 5 ML FLUSH IV FLUSH PRN (00:55)
[2016-06-28 04:00] VITALS: BP 136/78; PULSE 66; RESP 20; TEMP 97; O2SAT 98
[2016-06-28] MEDS: oxyCODONE/ACETAMINOPHEN 10 MG/325 MG TAB PO PRN ×4 (05:00→22:18)
[2016-06-28 08:00] VITALS: BP 141/70; PULSE 106; RESP 20; TEMP 97.8; O2SAT 89
[2016-06-28] MEDS: NYSTATIN 100,000 UNIT/GM CREAM 15 GM TOPICAL SCH ×2 (09:00→20:41)
[2016-06-28] MEDS: SODIUM CHLORIDE 0.9% FLUSH 5 ML FLUSH IV FLUSH SCH ×2 (09:00→20:40)
[2016-06-28] MEDS: LACTOBACILLUS ACIDOPHILUS TAB PO SCH ×4 (09:00→17:42)
--- NOTE | 2016-06-28 10:07 | PD.CAR.PN ---
CVT Progress Note Subjective/Hospital Course: 70-year-old female with a complex medical and surgical history of peripheral vascular disease and multiple related problems presents now status post BK amputation about a month half ago. Patient went to jail and apparently braced herself on the stump several times in bed in hit it against either floor or the chair not quite clear. Part of the stump opened up and at this point patient is dehiscence of skin deeper tissue seemed to be still intact. 06/16/16 Patient underwent yesterday debridement of the stump with wound VAC placement. The dehiscence is fortunately superficial involving skin and muscle in this as been debrided successfully while the rest of the tissues of bleeding and are viable. Wound VAC has been placed Cultures have been reviewed and antibiotics can be adjusted by medicine as appropriate We'll continue current care and patient should be able to go to jail with a wound VAC by Sunday Patient's nutritional status is very poor with a low albumen and prealbumin level and therefore nutritional evaluation and recommendations are requested I believe the patient is not taking sufficient by mouth in the jail and may need supplemental enteral or parenteral feedings at this point 06/17/16 I reviewed the nutritional parameters and patient's prealbumin and transferrin levels a critically low indicating severe malnutrition. Patient's healing is impaired and so is the rehabilitative potential. After reviewing to nutritional recommendations once these are made, we will decide whether patient needs an Tmlcht-n-Yvcs placed for additional parenteral nutrition for short bowel syndrome Stump is nice and clean with minimal drainage from the wound VAC 06/19/16 Still awaiting nutritional consult and evaluation for patient has short gut syndrome and will probably need additional parenteral feedings. If so patient will need Zhyuak-l-Bhff placement for additional feedings Patient is taking excellent by mouth but despite that her nutritional status is poor and hence the healing issues Left BKA stump incision is clean and wound VAC is in place with minimal drainage and will need to be changed today Awaiting wound care to change the wound VAC. Infectious disease help is much appreciated 06/20/2016 Patient doing well at this time. Stump is clean and the wound VAC will be changed today Patient had Shfrif-p-Bnak placed by radiology for supplemental parenteral feedings. Grateful for the nutritional evaluation. Patient will be placed on TPN at about the 1500 non-protein calories a day split about 60-70% in glucose and about 30% in form of lipids Patient will likely have to be discharged on supplemental TPN in face of her short bowel syndrome 06/21/16 Patient is doing really well at this time She's taking good by mouth diet. 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 There is some granulation tissue which may eventually need to be debrided but at this point I would leave it alone. Stump wound VAC has been changed and this is clean and granulating nicely. Patient is currently on TPN which tolerating well. In face of her short bowel syndrome patient will need TPN after discharge from the hospital. Grateful to case management for making arrangements for the same 06/22/16 Vital signs stable patient is doing well. Her appetite has improved and patient is taking good by mouth diet and having regular bowel movements. The abdominal incision is completely healed and fistula has completely resolved. The BKA wound VAC has been changed and wound is clean and granulating nicely. Zmbklk-l-Ctpz is being used for additional parenteral feedings necessary and short bowel syndrome and patient will be discharged on TPN. 06/23/16 Patient underwent today change of the wound VAC and the wound is clean. Next with will be the last wound VAC change and after that I plan to take the patient to the OR for irrigation and closure of the wound by the middle of the next week. 06/24/16 Patient doing very well at this time she is in a good mood and taking by mouth diet well Unfortunately due to the short bowel syndrome she need supplemental TPN feedings at this time Stump is healed nicely there is a small scab anterior to it and this should allow to fall off on its own Once the arrangements are made for outpatient TPN patient will be able to be discharged Awaiting case management to make the arrangements for outpatient TPN 06/25/16 Vital signs stable Patient is awake and alert and oriented, taking by mouth diet very well Abdomen is soft and the colocutaneous fistula is completely closed The BKA stump has an eschar and a scab but I would leave this alone because underneath its healing nicely. Patient remains on TPN considering the short gut syndrome and will go home on the same Mild anemia is dilutional due to TPN administration and intravenous fluids and does not require therapy at this time 06/26/16 Vital signs stable Patient is awake and alert and oriented, taking by mouth diet very well Abdomen is soft and the colocutaneous fistula is completely closed The BKA stump has an eschar and a scab but I would leave this alone because underneath its healing nicely. Patient remains on TPN considering the short gut syndrome and will go home on the same Mild anemia is dilutional due to TPN administration and intravenous fluids and does not require therapy at this time 06/27/16 Wound VAC has been removed by me and the the entire stump is healed very nicely except a small area but an inch length at the very lateral portion of the incision were we going to put a very small wound VAC on for another week or so. Patient can transfer to rehabilitation at any time as long as she can get intravenous TPN in the process 06/28/16 Wound VAC has been removed by me and the the entire stump is healed very nicely except a small area but an inch length at the very lateral portion of the incision were we going to put a very small wound VAC on for another week or so. Patient can transfer to rehabilitation at any time as long as she can get intravenous TPN Patient will need usp TPN considering short gut syndrome and this can be done either in a jail or at home I suspect this will be about a six-month process and after that patient may not need additional feedings if we can get her in a reasonable nutritional status in the meantime. I understand the difficulty this creates for case management to find her such an arrangement Objective: Vital Signs Date Time Temp Pulse Resp B/P Pulse Ox O2 Delivery O2 Flow Rate FiO2 06/28/16 08:00 97.8 106 20 141/70 89 06/28/16 07:15 Nasal Cannula 2.00 21 06/28/16 04:00 97.0 66 20 136/78 98 06/28/16 00:00 97.0 66 20 130/82 97 06/27/16 20:24 Nasal Cannula 2.00 06/27/16 20:00 97.9 68 20 138/82 97 06/27/16 16:00 97.6 94 20 121/56 93 06/27/16 12:00 97.0 80 20 155/81 97 Result Diagram: 06/27/16 0906/27/16901 Janice Olvera MD Jun 28, 2016 10:07
[2016-06-28] MEDS: CITALOPRAM HYDROBROMIDE 40 MG TAB PO SCH (11:36)
[2016-06-28] MEDS: PANTOPRAZOLE SOD 20 MG DELAYED RELEASE TAB PO SCH ×2 (11:36→20:41)
[2016-06-28] MEDS: RIVAROXABAN 20 MG TAB PO SCH (11:36)
[2016-06-28] MEDS: CALCIUM/VITAMIN D 250 MG/125 U TAB PO SCH ×2 (11:36→20:41)
[2016-06-28] MEDS: FERROUS SULFATE 325 MG (65 MG ELEMENTAL IRON) TAB PO SCH (11:37)
[2016-06-28] MEDS: DILTIAZEM-CD 120 MG CAP ER PO SCH (11:37)
[2016-06-28] MEDS: ALPRAZolam 0.25 MG TAB PO PRN (11:37)
[2016-06-28] MEDS: CALCITRIOL 0.25 MCG CAP PO SCH (11:37)
[2016-06-28 12:00] VITALS: BP 134/90; PULSE 109; RESP 18; TEMP 98; O2SAT 92
[2016-06-28 16:00] VITALS: BP 107/61; PULSE 91; RESP 18; TEMP 97.8; O2SAT 91
--- NOTE | 2016-06-28 17:28 | HHI.PR ---
Subjective Remarks Feeling OK no new complaint. Objective Vitals Vital Signs Date Time Temp Pulse Resp B/P Pulse Ox O2 Delivery O2 Flow Rate FiO2 06/28/16 12:00 98.0 109 18 134/90 92 06/28/16 08:00 97.8 106 20 141/70 89 06/28/16 07:15 Nasal Cannula 2.00 21 06/28/16 04:00 97.0 66 20 136/78 98 06/28/16 00:00 97.0 66 20 130/82 97 06/27/16 20:24 Nasal Cannula 2.00 06/27/16 20:00 97.9 68 20 138/82 97 I/O 06/27/16 06/27/16 06/27/16 06/28/16 06/28/16 06/28/16 07:00 15:00 23:00 07:00 15:00 23:00 Intake Total 360 ml 480 ml 1458 ml Output Total 850 ml 600 ml 1200 ml Balance -490 ml -120 ml 258 ml Intake Oral 360 ml 480 ml 340 ml TPN/PPN 1118 ml Output Urine Total 850 ml 600 ml 1200 ml # Voids 2 # Bowel Movements 2 2 2 1 Result Diagram: 06/27/16 0902 06/27/16 0902 Objective Remarks GENERAL: Chronically ill-appearing patient. SKIN: Abdomen with 1 small enterocutaneous fistula, minimal drainage. CARDIOVASCULAR: Regular rate and rhythm without murmurs, gallops, or rubs. RESPIRATORY: Clear to auscultation. Breath sounds equal bilaterally. No wheezes , rales, or rhonchi. GASTROINTESTINAL: Abdomen soft, non-tender, nondistended. No hepato-splenomegaly , or palpable masses. No guarding. MUSCULOSKELETAL: Left BKA wound vac in place. Very tender to palpation. NEUROLOGICAL: Awake and alert. Normal speech. Procedures Left stump debridement by Dr. Hill on 06/15/16 A/P Problem List: (1) Infection of amputation stump Status: Acute (2) Enterocutaneous fistula Status: Chronic (3) Hypercoagulable state Status: Acute (4) HTN (hypertension) Status: Acute (5) Anxiety about health Status: Acute Assessment and Plan The patient is a 70-year-old female with a medical history significant for ischemic bowel with resection and development of chronic enterocutaneous fistula , asthma, depression, COPD, severe peripheral vascular disease status post left BKA. The patient was discharged from the hospital on 06/06/16 to a custodial facility for rehabilitation. The stitches on the left stump were taken out 2 weeks ago. She reports that the wound has been opening up when she participated with physical therapy. She returned due to wound dehiscence and infection. She was admitted by the vascular surgery service, Dr. Hill for debridement. Infected left stump: Patient status post BKA on 05/02/16. - Surgery following. S/P debridement. Wound cultures growing Klebsiella ESBL positive and Morganella. -Patient was followed by ID. She was treated with IV Zerbaxa per ID, Micro with sensitivity testing on Zerbaxa and Avycaz . Antibiotics have since been discontinued. Monitor off antibiotics. - Dilaudid IV for breakthrough pain. Continue Percocet Right leg pain: Ultrasound negative for DVT. Soft tissue swelling. Continue PT. Hypercoagulable state: History of ischemic bowel and severe peripheral vascular disease. - Xarelto restarted Malnutrition, moderate calorie insufficiency: Patient has an Nlcuxu-k-Pwtq and is on TPN per surgery. Anxiety and depression: - Continue Celexa and Xanax. Hypokalemia: Replace and monitor. COPD: Breathing treatments as needed. GERD: Continue PPI GI prophylaxis: PPI. Stool softener PRN constipation. DVT PPx: Xarelto Discharge Planning DC planning per Dr. Hill, patient may be discharged once TPN has been arranged for outpatient. Manolo Holm MD Jun 28, 2016 17:28
[2016-06-28] MEDS: CLINIMIX E 4.25/25 1000 mL- </= 42 mls/hr IV-CENTRAL SCH ×3 (20:40)
[2016-06-28] MEDS: GABAPENTIN 100 MG CAP PO SCH (20:40)
[2016-06-28] MEDS: FAT EMULSION 20% INJ 250 ML (Daily over 8 hours) IV-CENTRAL SCH (20:40)
[2016-06-28 21:12] VITALS: BP 140/76; PULSE 88; RESP 18; TEMP 97.1; O2SAT 95
[2016-06-29 00:52] VITALS: BP 120/60; PULSE 89; RESP 18; TEMP 97.8; O2SAT 93
[2016-06-29] MEDS: SODIUM CHLORIDE 0.9% FLUSH 5 ML FLUSH IV FLUSH PRN (01:24)
[2016-06-29] MEDS: HYDROmorphone HCL PF 1 MG/ML VIAL IV PUSH PRN ×5 (01:24→21:18)
[2016-06-29 05:25] VITALS: BP 129/61; PULSE 100; RESP 18; TEMP 97.8; O2SAT 93
[2016-06-29 08:00] VITALS: BP 144/84; PULSE 100; RESP 18; TEMP 98.8; O2SAT 94
[2016-06-29] MEDS: oxyCODONE/ACETAMINOPHEN 10 MG/325 MG TAB PO PRN (08:38)
[2016-06-29] MEDS: SODIUM CHLORIDE 0.9% FLUSH 5 ML FLUSH IV FLUSH SCH ×2 (08:44→20:38)
[2016-06-29] MEDS: NYSTATIN 100,000 UNIT/GM CREAM 15 GM TOPICAL SCH ×2 (09:00→20:39)
[2016-06-29] MEDS: CALCITRIOL 0.25 MCG CAP PO SCH (09:45)
[2016-06-29] MEDS: PANTOPRAZOLE SOD 20 MG DELAYED RELEASE TAB PO SCH ×2 (09:45→20:38)
[2016-06-29] MEDS: RIVAROXABAN 20 MG TAB PO SCH (09:45)
[2016-06-29] MEDS: LACTOBACILLUS ACIDOPHILUS TAB PO SCH ×3 (09:45→16:55)
[2016-06-29] MEDS: DILTIAZEM-CD 120 MG CAP ER PO SCH (09:45)
[2016-06-29] MEDS: CITALOPRAM HYDROBROMIDE 40 MG TAB PO SCH (09:45)
[2016-06-29] MEDS: FERROUS SULFATE 325 MG (65 MG ELEMENTAL IRON) TAB PO SCH (09:46)
[2016-06-29] MEDS: CALCIUM/VITAMIN D 250 MG/125 U TAB PO SCH ×2 (09:46→20:38)
[2016-06-29 12:00] VITALS: BP 109/74; PULSE 97; RESP 16; TEMP 99.1; O2SAT 94
--- NOTE | 2016-06-29 15:43 | PD.CAR.PN ---
CVT Progress Note Subjective/Hospital Course: 70-year-old female with a complex medical and surgical history of peripheral vascular disease and multiple related problems presents now status post BK amputation about a month half ago. Patient went to prison and apparently braced herself on the stump several times in bed in hit it against either floor or the chair not quite clear. Part of the stump opened up and at this point patient is dehiscence of skin deeper tissue seemed to be still intact. 06/16/16 Patient underwent yesterday debridement of the stump with wound VAC placement. The dehiscence is fortunately superficial involving skin and muscle in this as been debrided successfully while the rest of the tissues of bleeding and are viable. Wound VAC has been placed Cultures have been reviewed and antibiotics can be adjusted by medicine as appropriate We'll continue current care and patient should be able to go to prison with a wound VAC by Sunday Patient's nutritional status is very poor with a low albumen and prealbumin level and therefore nutritional evaluation and recommendations are requested I believe the patient is not taking sufficient by mouth in the prison and may need supplemental enteral or parenteral feedings at this point 06/17/16 I reviewed the nutritional parameters and patient's prealbumin and transferrin levels a critically low indicating severe malnutrition. Patient's healing is impaired and so is the rehabilitative potential. After reviewing to nutritional recommendations once these are made, we will decide whether patient needs an Ewppkp-f-Jisy placed for additional parenteral nutrition for short bowel syndrome Stump is nice and clean with minimal drainage from the wound VAC 06/19/16 Still awaiting nutritional consult and evaluation for patient has short gut syndrome and will probably need additional parenteral feedings. If so patient will need Sxlecd-v-Josc placement for additional feedings Patient is taking excellent by mouth but despite that her nutritional status is poor and hence the healing issues Left BKA stump incision is clean and wound VAC is in place with minimal drainage and will need to be changed today Awaiting wound care to change the wound VAC. Infectious disease help is much appreciated 06/20/2016 Patient doing well at this time. Stump is clean and the wound VAC will be changed today Patient had Ckvnad-x-Wqfq placed by radiology for supplemental parenteral feedings. Grateful for the nutritional evaluation. Patient will be placed on TPN at about the 1500 non-protein calories a day split about 60-70% in glucose and about 30% in form of lipids Patient will likely have to be discharged on supplemental TPN in face of her short bowel syndrome 06/21/16 Patient is doing really well at this time She's taking good by mouth diet. 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 There is some granulation tissue which may eventually need to be debrided but at this point I would leave it alone. Stump wound VAC has been changed and this is clean and granulating nicely. Patient is currently on TPN which tolerating well. In face of her short bowel syndrome patient will need TPN after discharge from the hospital. Grateful to case management for making arrangements for the same 06/22/16 Vital signs stable patient is doing well. Her appetite has improved and patient is taking good by mouth diet and having regular bowel movements. The abdominal incision is completely healed and fistula has completely resolved. The BKA wound VAC has been changed and wound is clean and granulating nicely. Qvltfw-t-Bdyk is being used for additional parenteral feedings necessary and short bowel syndrome and patient will be discharged on TPN. 06/23/16 Patient underwent today change of the wound VAC and the wound is clean. Next with will be the last wound VAC change and after that I plan to take the patient to the OR for irrigation and closure of the wound by the middle of the next week. 06/24/16 Patient doing very well at this time she is in a good mood and taking by mouth diet well Unfortunately due to the short bowel syndrome she need supplemental TPN feedings at this time Stump is healed nicely there is a small scab anterior to it and this should allow to fall off on its own Once the arrangements are made for outpatient TPN patient will be able to be discharged Awaiting case management to make the arrangements for outpatient TPN 06/25/16 Vital signs stable Patient is awake and alert and oriented, taking by mouth diet very well Abdomen is soft and the colocutaneous fistula is completely closed The BKA stump has an eschar and a scab but I would leave this alone because underneath its healing nicely. Patient remains on TPN considering the short gut syndrome and will go home on the same Mild anemia is dilutional due to TPN administration and intravenous fluids and does not require therapy at this time 06/26/16 Vital signs stable Patient is awake and alert and oriented, taking by mouth diet very well Abdomen is soft and the colocutaneous fistula is completely closed The BKA stump has an eschar and a scab but I would leave this alone because underneath its healing nicely. Patient remains on TPN considering the short gut syndrome and will go home on the same Mild anemia is dilutional due to TPN administration and intravenous fluids and does not require therapy at this time 06/27/16 Wound VAC has been removed by me and the the entire stump is healed very nicely except a small area but an inch length at the very lateral portion of the incision were we going to put a very small wound VAC on for another week or so. Patient can transfer to rehabilitation at any time as long as she can get intravenous TPN in the process 06/28/16 Wound VAC has been removed by me and the the entire stump is healed very nicely except a small area but an inch length at the very lateral portion of the incision were we going to put a very small wound VAC on for another week or so. Patient can transfer to rehabilitation at any time as long as she can get intravenous TPN Patient will need fci TPN considering short gut syndrome and this can be done either in a prison or at home I suspect this will be about a six-month process and after that patient may not need additional feedings if we can get her in a reasonable nutritional status in the meantime. I understand the difficulty this creates for case management to find her such an arrangement 06/29/16 Patient doing really well at this time taking good by mouth but due to the short bowel syndrome will require long-term TPN Stump is healing really nicely and the probably after this week we will remove the wound VAC and simply place wet-to-dry dressing and allow this to heal Objective: Vital Signs Date Time Temp Pulse Resp B/P Pulse Ox O2 Delivery O2 Flow Rate FiO2 06/29/16 12:00 99.1 97 16 109/74 94 06/29/16 08:00 98.8 100 18 144/84 94 06/29/16 05:25 97.8 100 18 129/61 93 06/29/16 01:28 Room Air 06/29/16 00:52 97.8 89 18 120/60 93 06/28/16 21:12 97.1 88 18 140/76 95 06/28/16 16:00 97.8 91 18 107/61 91 Result Diagram: 06/27/1690106/27/16901 Janice Olvera MD Jun 29, 2016 15:43
[2016-06-29 16:00] VITALS: BP 130/74; PULSE 92; RESP 16; TEMP 98.9; O2SAT 93
--- NOTE | 2016-06-29 17:56 | HHI.PR ---
Subjective Remarks patient feels well has good appetite denies cp/sob Objective Vitals Vital Signs Date Time Temp Pulse Resp B/P Pulse Ox O2 Delivery O2 Flow Rate FiO2 06/29/16 12:00 99.1 97 16 109/74 94 06/29/16 08:00 98.8 100 18 144/84 94 06/29/16 05:25 97.8 100 18 129/61 93 06/29/16 01:28 Room Air 06/29/16 00:52 97.8 89 18 120/60 93 06/28/16 21:12 97.1 88 18 140/76 95 I/O 06/28/16 06/28/16 06/28/16 06/29/16 06/29/16 06/29/16 07:00 15:00 23:00 07:00 15:00 23:00 Intake Total 1132 ml 825 ml Balance 1132 ml 825 ml Intake Oral 360 ml IV Total 772 ml TPN/PPN 575 ml Lipid 250 ml # Voids 2 3 2 2 # Bowel Movements 1 1 1 0 Result Diagram: 06/27/16 0902 06/27/16 0902 Imaging Last Impressions Lower Extremity Ultrasound 06/25/16 0000 Signed Impressions: Service Date/Time: Saturday, June 25, 2016 15:56 - CONCLUSION: Negative exam with no evidence of deep venous thrombosis. Soft tissue edema. Mike Leija MD Port Line Insertion 06/20/16 0000 Signed Impressions: Service Date/Time: Monday, June 20, 2016 08:53 - CONCLUSION: Uncomplicated ultrasound and fluoroscopic guided implanted central venous port catheter placement as described in detail above. An 8 [employer] port was placed. Kevan Salgado Jr., MD Chest X-Ray 06/17/16 0000 Signed Impressions: Service Date/Time: Friday, June 17, 2016 14:12 - CONCLUSION: Right base infiltrate and small effusion. Calixto Woodruff MD Objective Remarks GENERAL: Chronically ill-appearing patient. SKIN: Abdomen with 1 small enterocutaneous fistula, minimal drainage. CARDIOVASCULAR: Regular rate and rhythm without murmurs, gallops, or rubs. RESPIRATORY: Clear to auscultation. Breath sounds equal bilaterally. No wheezes , rales, or rhonchi. GASTROINTESTINAL: Abdomen soft, non-tender, nondistended. No hepato-splenomegaly , or palpable masses. No guarding. MUSCULOSKELETAL: Left BKA wound vac in place. Very tender to palpation. NEUROLOGICAL: Awake and alert. Normal speech. Procedures Left stump debridement by Dr. Hill on 06/15/16 Medications and IVs Current Medications Medications (Trade) Dose Ordered Sig/Shira Route Start Time Stop Time Status Last Admin (NS Flush) 2 ml BID IV FLUSH 06/14/16 21:00 06/29/16 08:44 (NS Flush) 2 ml UNSCH PRN IV FLUSH 06/14/16 17:00 06/29/16 01:24 (Percocet 5-325 Mg) 1 tab Q4H PRN PO 06/14/16 17:00 06/22/16 04:13 (Cardizem Cd) 120 mg DAILY PO 06/15/16 09:00 06/29/16 09:45 (Xanax) 0.125 mg Q6H PRN PO 06/14/16 17:45 06/28/16 11:37 (Rocaltrol) 0.25 mcg DAILY PO 06/15/16 09:00 06/29/16 09:45 (CeleXA) 40 mg DAILY PO 06/15/16 09:00 06/29/16 09:45 (Ferrous Sulfate) 325 mg DAILY PO 06/15/16 09:00 06/29/16 09:46 (Neurontin) 100 mg HS PO 06/14/16 21:00 06/28/16 20:40 (Lactinex) 1 tab TID PO 06/14/16 18:00 06/29/16 16:55 (Imodium) 2 mg Q6H PRN PO 06/14/16 17:45 06/19/16 20:36 (Oscal-D 250-125) 500 mg BID PO 06/14/16 21:00 06/29/16 09:46 (Protonix) 20 mg BID PO 06/14/16 21:00 06/29/16 09:45 (Zofran Odt) 8 mg Q6H PRN PO 06/14/16 18:15 (Pill Splitter) 1 ea UNSCH PRN OTHER 06/14/16 18:00 (Theragran) 1 tab DAILY PO 06/15/16 12:00 Hold 06/20/16 15:16 (Dilaudid Pf Inj) 1 mg Q4H PRN IV PUSH 06/15/16 14:30 06/29/16 16:56 (Mycostatin Cream) 1 applic Q12HR TOPICAL 06/19/16 15:00 06/29/16 09:00 (Heparin Central Flush) 500 units UNSCH IVF 06/20/16 11:30 06/24/16 05:25 (NS Flush) 5 ml UNSCH PRN IVF 06/20/16 11:30 (Heparin Central Flush) 250 units UNSCH PRN IVF 06/20/16 11:30 Rivaroxaban 20 mg 20 mg DAILY PO 06/21/16 09:00 06/29/16 09:45 Multivitamins 10 ml/Folic Acid 1 mg/Amino Acid Electrolyte w/ Calc 1,010.2 ml @ 42 mls/hr Q24H IV-CENTRAL 06/20/16 20:00 06/28/16 20:40 (Liposyn Iii 20% Inj) 250 ml @ 31.25 mls/ hr Q24H IV-CENTRAL 06/20/16 20:00 06/28/16 20:40 (Percocet 10-325 Mg) 1 tab Q4H PRN PO 06/22/16 19:15 06/29/16 08:38 Urinary Catheter: No Vascular Central Line Catheter: No A/P Problem List: (1) Infection of amputation stump Status: Acute (2) Enterocutaneous fistula Status: Chronic (3) Hypercoagulable state Status: Acute (4) HTN (hypertension) Status: Acute (5) Anxiety about health Status: Acute Assessment and Plan The patient is a 70-year-old female with a medical history significant for ischemic bowel with resection and development of chronic enterocutaneous fistula , asthma, depression, COPD, severe peripheral vascular disease status post left BKA. The patient was discharged from the hospital on 06/06/16 to a residential facility for rehabilitation. The stitches on the left stump were taken out 2 weeks ago. She reports that the wound has been opening up when she participated with physical therapy. She returned due to wound dehiscence and infection. She was admitted by the vascular surgery service, Dr. Hill for debridement. Infected left stump: Patient status post BKA on 05/02/16. - Surgery following. S/P debridement. Wound cultures growing Klebsiella ESBL positive and Morganella. -Patient was followed by ID. She was treated with IV Zerbaxa per ID, Micro with sensitivity testing on Zerbaxa and Avycaz . Antibiotics have since been discontinued. Monitor off antibiotics. - Dilaudid IV for breakthrough pain. Continue Percocet Right leg pain: Ultrasound negative for DVT. Soft tissue swelling. Continue PT. Hypercoagulable state: History of ischemic bowel and severe peripheral vascular disease. - Continue Xarelto Malnutrition, moderate calorie insufficiency: Patient has an Eeyffw-y-Obef and is on TPN per surgery. Anxiety and depression: - Continue Celexa and Xanax. Hypokalemia: Replace and monitor. COPD: Breathing treatments as needed. GERD: Continue PPI GI prophylaxis: PPI. Stool softener PRN constipation. DVT PPx: Xarelto Discharge Planning PAtient will need retirement TPN as outpatient - CM to help arrange placement Jeff Carey MD Jun 29, 2016 17:56
[2016-06-29 20:00] VITALS: BP 125/67; PULSE 90; RESP 18; TEMP 97.6; O2SAT 92
[2016-06-29] MEDS: FAT EMULSION 20% INJ 250 ML (Daily over 8 hours) IV-CENTRAL SCH (20:31)
[2016-06-29] MEDS: CLINIMIX E 4.25/25 1000 mL- </= 42 mls/hr IV-CENTRAL SCH ×3 (20:31)
[2016-06-29] MEDS: GABAPENTIN 100 MG CAP PO SCH (20:38)
[2016-06-29] MEDS: RESP: ALBUTEROL 2.5 MG/IPRATROPIUM 0.5 MG NEB (PRN) NEB (21:00)
[2016-06-30] MEDS: HYDROmorphone HCL PF 1 MG/ML VIAL IV PUSH PRN ×5 (01:33→22:23)
[2016-06-30 04:00] VITALS: BP 142/76; PULSE 96; RESP 18; TEMP 98.6; O2SAT 94
[2016-06-30 08:00] VITALS: BP 149/81; PULSE 113; RESP 18; TEMP 97.5; O2SAT 97
[2016-06-30] MEDS: LOPERAMIDE HCL 2 MG CAP PO PRN ×2 (08:26→21:58)
[2016-06-30] MEDS: NYSTATIN 100,000 UNIT/GM CREAM 15 GM TOPICAL SCH ×2 (09:00→21:59)
[2016-06-30] MEDS: LACTOBACILLUS ACIDOPHILUS TAB PO SCH ×3 (10:16→18:00)
[2016-06-30] MEDS: DILTIAZEM-CD 120 MG CAP ER PO SCH (10:16)
[2016-06-30] MEDS: CITALOPRAM HYDROBROMIDE 40 MG TAB PO SCH (10:16)
[2016-06-30] MEDS: CALCITRIOL 0.25 MCG CAP PO SCH (10:16)
[2016-06-30] MEDS: PANTOPRAZOLE SOD 20 MG DELAYED RELEASE TAB PO SCH ×2 (10:16→21:59)
[2016-06-30] MEDS: FERROUS SULFATE 325 MG (65 MG ELEMENTAL IRON) TAB PO SCH (10:16)
[2016-06-30] MEDS: RIVAROXABAN 20 MG TAB PO SCH (10:16)
[2016-06-30] MEDS: CALCIUM/VITAMIN D 250 MG/125 U TAB PO SCH ×2 (10:17→21:58)
[2016-06-30] MEDS: oxyCODONE/ACETAMINOPHEN 10 MG/325 MG TAB PO PRN (10:34)
[2016-06-30] MEDS: SODIUM CHLORIDE 0.9% FLUSH 5 ML FLUSH IV FLUSH SCH ×2 (10:35→22:00)
--- NOTE | 2016-06-30 10:50 | HHI.PR ---
Subjective Remarks fu for infection of amputation of stump, htn, enterocutaneous fistula c/o numbness over stump c/o of crackly right foot denies cp/sob Objective Vitals Vital Signs Date Time Temp Pulse Resp B/P Pulse Ox O2 Delivery O2 Flow Rate FiO2 06/30/16 08:00 97.5 113 18 149/81 97 06/30/16 04:00 98.6 96 18 142/76 94 06/29/16 20:00 Nasal Cannula 06/29/16 20:00 Nasal Cannula 06/29/16 20:00 97.6 90 18 125/67 92 06/29/16 16:00 98.9 92 16 130/74 93 06/29/16 12:00 99.1 97 16 109/74 94 I/O 06/29/16 06/29/16 06/29/16 06/30/16 06/30/16 06/30/16 06:59 14:59 22:59 06:59 14:59 22:59 Intake Total 825 ml 720 ml 240 ml 240 ml Output Total 300 ml Balance 825 ml 720 ml -60 ml 240 ml Intake Oral 720 ml 240 ml 240 ml TPN/PPN 575 ml Lipid 250 ml Output Urine Total 300 ml # Voids 4 2 3 # Bowel Movements 1 4 4 Result Diagram: 06/27/1690106/27/16901 Objective Remarks GENERAL: Chronically ill-appearing patient. SKIN: Abdomen with 1 small enterocutaneous fistula, minimal drainage. CARDIOVASCULAR: Regular rate and rhythm without murmurs, gallops, or rubs. RESPIRATORY: Clear to auscultation. Breath sounds equal bilaterally. No wheezes , rales, or rhonchi. GASTROINTESTINAL: Abdomen soft, non-tender, nondistended. No hepato-splenomegaly , or palpable masses. No guarding. MUSCULOSKELETAL: Left BKA wound vac in place. Very tender to palpation. NEUROLOGICAL: Awake and alert. Normal speech. Procedures Left stump debridement by Dr. Hill on 06/15/16 Medications and IVs Current Medications Medications (Trade) Dose Ordered Sig/Shira Route Start Time Stop Time Status Last Admin (NS Flush) 2 ml BID IV FLUSH 06/14/16 21:00 06/30/16 10:35 (NS Flush) 2 ml UNSCH PRN IV FLUSH 06/14/16 17:00 06/29/16 01:24 (Percocet 5-325 Mg) 1 tab Q4H PRN PO 06/14/16 17:00 06/22/16 04:13 (Cardizem Cd) 120 mg DAILY PO 06/15/16 09:00 06/30/16 10:16 (Xanax) 0.125 mg Q6H PRN PO 06/14/16 17:45 06/28/16 11:37 (Rocaltrol) 0.25 mcg DAILY PO 06/15/16 09:00 06/30/16 10:16 (CeleXA) 40 mg DAILY PO 06/15/16 09:00 06/30/16 10:16 (Ferrous Sulfate) 325 mg DAILY PO 06/15/16 09:00 06/30/16 10:16 (Neurontin) 100 mg HS PO 06/14/16 21:00 06/29/16 20:38 (Lactinex) 1 tab TID PO 06/14/16 18:00 06/30/16 13:00 (Imodium) 2 mg Q6H PRN PO 06/14/16 17:45 06/30/16 08:26 (Oscal-D 250-125) 500 mg BID PO 06/14/16 21:00 06/30/16 10:17 (Protonix) 20 mg BID PO 06/14/16 21:00 06/30/16 10:16 (Zofran Odt) 8 mg Q6H PRN PO 06/14/16 18:15 (Pill Splitter) 1 ea UNSCH PRN OTHER 06/14/16 18:00 (Theragran) 1 tab DAILY PO 06/15/16 12:00 Hold 06/20/16 15:16 (Dilaudid Pf Inj) 1 mg Q4H PRN IV PUSH 06/15/16 14:30 06/30/16 14:40 (Mycostatin Cream) 1 applic Q12HR TOPICAL 06/19/16 15:00 06/29/16 20:39 (Heparin Central Flush) 500 units UNSCH IVF 06/20/16 11:30 06/24/16 05:25 (NS Flush) 5 ml UNSCH PRN IVF 06/20/16 11:30 (Heparin Central Flush) 250 units UNSCH PRN IVF 06/20/16 11:30 Rivaroxaban 20 mg 20 mg DAILY PO 06/21/16 09:00 06/30/16 10:16 Multivitamins 10 ml/Folic Acid 1 mg/Amino Acid Electrolyte w/ Calc 1,010.2 ml @ 42 mls/hr Q24H IV-CENTRAL 06/20/16 20:00 06/29/16 20:31 (Liposyn Iii 20% Inj) 250 ml @ 31.25 mls/ hr Q24H IV-CENTRAL 06/20/16 20:00 06/29/16 20:31 (Percocet 10-325 Mg) 1 tab Q4H PRN PO 06/22/16 19:15 06/30/16 10:34 Urinary Catheter: No Vascular Central Line Catheter: No A/P Problem List: (1) Infection of amputation stump Status: Acute (2) Enterocutaneous fistula Status: Chronic (3) Hypercoagulable state Status: Chronic (4) HTN (hypertension) Status: Chronic (5) Anxiety about health Status: Chronic Assessment and Plan The patient is a 70-year-old female with a medical history significant for ischemic bowel with resection and development of chronic enterocutaneous fistula , asthma, depression, COPD, severe peripheral vascular disease status post left BKA. The patient was discharged from the hospital on 06/06/16 to a custodial facility for rehabilitation. The stitches on the left stump were taken out 2 weeks ago. She reports that the wound has been opening up when she participated with physical therapy. She returned due to wound dehiscence and infection. She was admitted by the vascular surgery service, Dr. Hill for debridement. Infected left stump: Patient status post BKA on 05/02/16. - Surgery following. S/P debridement. Wound cultures growing Klebsiella ESBL positive and Morganella. -Patient was followed by ID. She was treated with IV Zerbaxa per ID, Micro with sensitivity testing on Zerbaxa and Avycaz . Antibiotics have since been discontinued. Monitor off antibiotics. - Dilaudid IV for breakthrough pain. Continue Percocet Right leg pain: Ultrasound negative for DVT. Soft tissue swelling. Continue PT. Hypercoagulable state: History of ischemic bowel and severe peripheral vascular disease. - Continue Xarelto Malnutrition, moderate calorie insufficiency: Patient has an Hluoxs-v-Rlbn and is on TPN per surgery. Anxiety and depression: - Continue Celexa and Xanax. Hypokalemia: Replace and monitor. COPD: Breathing treatments as needed. GERD: Continue PPI GI prophylaxis: PPI. Stool softener PRN constipation. DVT PPx: Xarelto Discharge Planning PAtient will need snf TPN as outpatient - to help arrange placement Problem Qualifiers (1) HTN (hypertension): Qualified Code: I10 - Essential hypertension Jeff Carey MD Jun 30, 2016 10:50
[2016-06-30 11:22] VITALS: O2SAT 9
[2016-06-30 12:00] VITALS: BP 144/73; PULSE 93; RESP 18; TEMP 98.2; O2SAT 92
--- NOTE | 2016-06-30 15:00 | PD.CAR.PN ---
CVT Progress Note Subjective/Hospital Course: 70-year-old female with a complex medical and surgical history of peripheral vascular disease and multiple related problems presents now status post BK amputation about a month half ago. Patient went to assisted and apparently braced herself on the stump several times in bed in hit it against either floor or the chair not quite clear. Part of the stump opened up and at this point patient is dehiscence of skin deeper tissue seemed to be still intact. 06/16/16 Patient underwent yesterday debridement of the stump with wound VAC placement. The dehiscence is fortunately superficial involving skin and muscle in this as been debrided successfully while the rest of the tissues of bleeding and are viable. Wound VAC has been placed Cultures have been reviewed and antibiotics can be adjusted by medicine as appropriate We'll continue current care and patient should be able to go to assisted with a wound VAC by Sunday Patient's nutritional status is very poor with a low albumen and prealbumin level and therefore nutritional evaluation and recommendations are requested I believe the patient is not taking sufficient by mouth in the assisted and may need supplemental enteral or parenteral feedings at this point 06/17/16 I reviewed the nutritional parameters and patient's prealbumin and transferrin levels a critically low indicating severe malnutrition. Patient's healing is impaired and so is the rehabilitative potential. After reviewing to nutritional recommendations once these are made, we will decide whether patient needs an Bdnlza-l-Pdnr placed for additional parenteral nutrition for short bowel syndrome Stump is nice and clean with minimal drainage from the wound VAC 06/19/16 Still awaiting nutritional consult and evaluation for patient has short gut syndrome and will probably need additional parenteral feedings. If so patient will need Pakuoa-q-Bkua placement for additional feedings Patient is taking excellent by mouth but despite that her nutritional status is poor and hence the healing issues Left BKA stump incision is clean and wound VAC is in place with minimal drainage and will need to be changed today Awaiting wound care to change the wound VAC. Infectious disease help is much appreciated 06/20/2016 Patient doing well at this time. Stump is clean and the wound VAC will be changed today Patient had Hcgans-y-Ofql placed by radiology for supplemental parenteral feedings. Grateful for the nutritional evaluation. Patient will be placed on TPN at about the 1500 non-protein calories a day split about 60-70% in glucose and about 30% in form of lipids Patient will likely have to be discharged on supplemental TPN in face of her short bowel syndrome 06/21/16 Patient is doing really well at this time She's taking good by mouth diet. 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 There is some granulation tissue which may eventually need to be debrided but at this point I would leave it alone. Stump wound VAC has been changed and this is clean and granulating nicely. Patient is currently on TPN which tolerating well. In face of her short bowel syndrome patient will need TPN after discharge from the hospital. Grateful to case management for making arrangements for the same 06/22/16 Vital signs stable patient is doing well. Her appetite has improved and patient is taking good by mouth diet and having regular bowel movements. The abdominal incision is completely healed and fistula has completely resolved. The BKA wound VAC has been changed and wound is clean and granulating nicely. Ifkqhv-r-Pier is being used for additional parenteral feedings necessary and short bowel syndrome and patient will be discharged on TPN. 06/23/16 Patient underwent today change of the wound VAC and the wound is clean. Next with will be the last wound VAC change and after that I plan to take the patient to the OR for irrigation and closure of the wound by the middle of the next week. 06/24/16 Patient doing very well at this time she is in a good mood and taking by mouth diet well Unfortunately due to the short bowel syndrome she need supplemental TPN feedings at this time Stump is healed nicely there is a small scab anterior to it and this should allow to fall off on its own Once the arrangements are made for outpatient TPN patient will be able to be discharged Awaiting case management to make the arrangements for outpatient TPN 06/25/16 Vital signs stable Patient is awake and alert and oriented, taking by mouth diet very well Abdomen is soft and the colocutaneous fistula is completely closed The BKA stump has an eschar and a scab but I would leave this alone because underneath its healing nicely. Patient remains on TPN considering the short gut syndrome and will go home on the same Mild anemia is dilutional due to TPN administration and intravenous fluids and does not require therapy at this time 06/26/16 Vital signs stable Patient is awake and alert and oriented, taking by mouth diet very well Abdomen is soft and the colocutaneous fistula is completely closed The BKA stump has an eschar and a scab but I would leave this alone because underneath its healing nicely. Patient remains on TPN considering the short gut syndrome and will go home on the same Mild anemia is dilutional due to TPN administration and intravenous fluids and does not require therapy at this time 06/27/16 Wound VAC has been removed by me and the the entire stump is healed very nicely except a small area but an inch length at the very lateral portion of the incision were we going to put a very small wound VAC on for another week or so. Patient can transfer to rehabilitation at any time as long as she can get intravenous TPN in the process 06/28/16 Wound VAC has been removed by me and the the entire stump is healed very nicely except a small area but an inch length at the very lateral portion of the incision were we going to put a very small wound VAC on for another week or so. Patient can transfer to rehabilitation at any time as long as she can get intravenous TPN Patient will need shelter TPN considering short gut syndrome and this can be done either in a assisted or at home I suspect this will be about a six-month process and after that patient may not need additional feedings if we can get her in a reasonable nutritional status in the meantime. I understand the difficulty this creates for case management to find her such an arrangement 06/29/16 Patient doing really well at this time taking good by mouth but due to the short bowel syndrome will require long-term TPN Stump is healing really nicely and the probably after this week we will remove the wound VAC and simply place wet-to-dry dressing and allow this to heal 06/30/16 Patient is doing well tolerates diet. Abdomen is soft with active bowel sounds Incisions are clean and dry Wound VAC last change will be next week and after that we going to remove the wound VAC and continue wet-to-dry dressing Stump is healing really nicely Due to TPN and other issues placement remains a problem Objective: Vital Signs Date Time Temp Pulse Resp B/P Pulse Ox O2 Delivery O2 Flow Rate FiO2 06/30/16 12:00 98.2 93 18 144/73 92 06/30/16 11:22 9 06/30/16 08:00 97.5 113 18 149/81 97 06/30/16 04:00 98.6 96 18 142/76 94 06/29/16 20:00 Nasal Cannula 06/29/16 20:00 Nasal Cannula 06/29/16 20:00 97.6 90 18 125/67 92 06/29/16 16:00 98.9 92 16 130/74 93 Result Diagram: 06/27/16 0902 06/27/16 0902 Janice Olvera MD Jun 30, 2016 15:00
[2016-06-30 16:00] VITALS: BP 145/70; PULSE 89; RESP 19; TEMP 99; O2SAT 90
[2016-06-30 20:35] VITALS: BP 166/79; PULSE 95; RESP 19; TEMP 97; O2SAT 92
[2016-06-30] MEDS: CLINIMIX E 4.25/25 1000 mL- </= 42 mls/hr IV-CENTRAL SCH ×3 (21:57)
[2016-06-30] MEDS: GABAPENTIN 100 MG CAP PO SCH (21:58)
[2016-06-30] MEDS: FAT EMULSION 20% INJ 250 ML (Daily over 8 hours) IV-CENTRAL SCH (21:58)
[2016-06-30] MEDS: ALPRAZolam 0.25 MG TAB PO PRN (22:40)
[2016-07-01] VITALS: BP 168/88; PULSE 96; RESP 18; TEMP 96.7; O2SAT 91
[2016-07-01] MEDS: oxyCODONE/ACETAMINOPHEN 10 MG/325 MG TAB PO PRN ×4 (02:00→21:00)
[2016-07-01 04:00] VITALS: BP 133/68; PULSE 85; RESP 17; TEMP 97.6; O2SAT 91
[2016-07-01 08:24] VITALS: BP 129/75; PULSE 92; RESP 20; TEMP 98; O2SAT 90
[2016-07-01] MEDS: RIVAROXABAN 20 MG TAB PO SCH (10:26)
[2016-07-01] MEDS: CALCITRIOL 0.25 MCG CAP PO SCH (10:26)
[2016-07-01] MEDS: FERROUS SULFATE 325 MG (65 MG ELEMENTAL IRON) TAB PO SCH (10:26)
[2016-07-01] MEDS: DILTIAZEM-CD 120 MG CAP ER PO SCH (10:26)
[2016-07-01] MEDS: CITALOPRAM HYDROBROMIDE 40 MG TAB PO SCH (10:26)
[2016-07-01] MEDS: PANTOPRAZOLE SOD 20 MG DELAYED RELEASE TAB PO SCH ×2 (10:26→21:01)
[2016-07-01] MEDS: NYSTATIN 100,000 UNIT/GM CREAM 15 GM TOPICAL SCH ×2 (10:26→21:00)
[2016-07-01] MEDS: CALCIUM/VITAMIN D 250 MG/125 U TAB PO SCH ×2 (10:26→21:00)
[2016-07-01] MEDS: LACTOBACILLUS ACIDOPHILUS TAB PO SCH ×3 (10:26→17:51)
[2016-07-01] MEDS: SODIUM CHLORIDE 0.9% FLUSH 5 ML FLUSH IV FLUSH SCH ×2 (10:27→21:00)
[2016-07-01] MEDS: HYDROmorphone HCL PF 1 MG/ML VIAL IV PUSH PRN ×2 (11:33→16:22)
[2016-07-01 12:33] VITALS: BP 139/80; PULSE 94; RESP 20; TEMP 97.2; O2SAT 90
--- NOTE | 2016-07-01 13:22 | HHI.PR ---
Subjective Remarks fu for infected stump, htn, enterocutaneous fistula Patient c/o severe pain at stump site denies fevers or chills denies chest pain sob afebrile tolerating diet Objective Vitals Vital Signs Date Time Temp Pulse Resp B/P Pulse Ox O2 Delivery O2 Flow Rate FiO2 07/01/16 12:33 97.2 94 20 139/80 90 07/01/16 10:40 Room Air 07/01/16 08:24 98.0 92 20 129/75 90 07/01/16 04:00 97.6 85 17 133/68 91 07/01/16 00:00 96.7 96 18 168/88 91 06/30/16 22:00 Nasal Cannula 06/30/16 20:35 97.0 95 19 166/79 92 06/30/16 16:00 99.0 89 19 145/70 90 I/O 06/30/16 06/30/16 06/30/16 07/01/16 07/01/16 07/01/16 07:00 15:00 23:00 07:00 15:00 23:00 Intake Total 240 ml 240 ml 1998 ml 722 ml Output Total 600 ml Balance 240 ml 240 ml 1998 ml 122 ml Intake Oral 240 ml 240 ml 320 ml 240 ml TPN/PPN 1678 ml 236 ml Lipid 246 ml Output Urine Total 450 ml Drainage Total 150 ml # Voids 3 3 2 # Bowel Movements 4 4 1 Result Diagram: 06/27/16 0902 06/27/16 0902 Imaging Last Impressions Lower Extremity Ultrasound 06/25/16 0000 Signed Impressions: Service Date/Time: Saturday, June 25, 2016 15:56 - CONCLUSION: Negative exam with no evidence of deep venous thrombosis. Soft tissue edema. Mike Leija MD Port Line Insertion 06/20/16 0000 Signed Impressions: Service Date/Time: Monday, June 20, 2016 08:53 - CONCLUSION: Uncomplicated ultrasound and fluoroscopic guided implanted central venous port catheter placement as described in detail above. An 8 Slov[place] Power port was placed. Kevan Salgado Jr., MD Chest X-Ray 06/17/16 0000 Signed Impressions: Service Date/Time: Friday, June 17, 2016 14:12 - CONCLUSION: Right base infiltrate and small effusion. Calixto Woodruff MD Objective Remarks GENERAL: Chronically ill-appearing patient. SKIN: Abdomen with 1 small enterocutaneous fistula, minimal drainage. CARDIOVASCULAR: Regular rate and rhythm without murmurs, gallops, or rubs. RESPIRATORY: Clear to auscultation. Breath sounds equal bilaterally. No wheezes , rales, or rhonchi. GASTROINTESTINAL: Abdomen soft, non-tender, nondistended. No hepato-splenomegaly , or palpable masses. No guarding. MUSCULOSKELETAL: Left BKA wound vac in place. Very tender to palpation. NEUROLOGICAL: Awake and alert. Normal speech. Procedures Left stump debridement by Dr. Hill on 06/15/16 Medications and IVs Current Medications Medications (Trade) Dose Ordered Sig/Shira Route Start Time Stop Time Status Last Admin (NS Flush) 2 ml BID IV FLUSH 06/14/16 21:00 07/01/16 10:27 (NS Flush) 2 ml UNSCH PRN IV FLUSH 06/14/16 17:00 06/29/16 01:24 (Percocet 5-325 Mg) 1 tab Q4H PRN PO 06/14/16 17:00 06/22/16 04:13 (Cardizem Cd) 120 mg DAILY PO 06/15/16 09:00 07/01/16 10:26 (Xanax) 0.125 mg Q6H PRN PO 06/14/16 17:45 06/30/16 22:40 (Rocaltrol) 0.25 mcg DAILY PO 06/15/16 09:00 07/01/16 10:26 (CeleXA) 40 mg DAILY PO 06/15/16 09:00 07/01/16 10:26 (Ferrous Sulfate) 325 mg DAILY PO 06/15/16 09:00 07/01/16 10:26 (Neurontin) 100 mg HS PO 06/14/16 21:00 06/30/16 21:58 (Lactinex) 1 tab TID PO 06/14/16 18:00 07/01/16 13:22 (Imodium) 2 mg Q6H PRN PO 06/14/16 17:45 06/30/16 21:58 (Oscal-D 250-125) 500 mg BID PO 06/14/16 21:00 07/01/16 10:26 (Protonix) 20 mg BID PO 06/14/16 21:00 07/01/16 10:26 (Zofran Odt) 8 mg Q6H PRN PO 06/14/16 18:15 (Pill Splitter) 1 ea UNSCH PRN OTHER 06/14/16 18:00 (Theragran) 1 tab DAILY PO 06/15/16 12:00 Hold 06/20/16 15:16 (Dilaudid Pf Inj) 1 mg Q4H PRN IV PUSH 06/15/16 14:30 07/01/16 11:33 (Mycostatin Cream) 1 applic Q12HR TOPICAL 06/19/16 15:00 07/01/16 10:26 (Heparin Central Flush) 500 units UNSCH IVF 06/20/16 11:30 06/24/16 05:25 (NS Flush) 5 ml UNSCH PRN IVF 06/20/16 11:30 (Heparin Central Flush) 250 units UNSCH PRN IVF 06/20/16 11:30 Rivaroxaban 20 mg 20 mg DAILY PO 06/21/16 09:00 07/01/16 10:26 Multivitamins 10 ml/Folic Acid 1 mg/Amino Acid Electrolyte w/ Calc 1,010.2 ml @ 42 mls/hr Q24H IV-CENTRAL 06/20/16 20:00 06/30/16 21:57 (Liposyn Iii 20% Inj) 250 ml @ 31.25 mls/ hr Q24H IV-CENTRAL 06/20/16 20:00 06/30/16 21:58 (Percocet 10-325 Mg) 1 tab Q4H PRN PO 06/22/16 19:15 07/01/16 13:22 Urinary Catheter: No Vascular Central Line Catheter: No A/P Problem List: (1) Infection of amputation stump Status: Acute (2) Enterocutaneous fistula Status: Chronic (3) Hypercoagulable state Status: Chronic (4) HTN (hypertension) Status: Chronic (5) Anxiety about health Status: Chronic Assessment and Plan The patient is a 70-year-old female with a medical history significant for ischemic bowel with resection and development of chronic enterocutaneous fistula , asthma, depression, COPD, severe peripheral vascular disease status post left BKA. The patient was discharged from the hospital on 06/06/16 to a alf facility for rehabilitation. The stitches on the left stump were taken out 2 weeks ago. She reports that the wound has been opening up when she participated with physical therapy. She returned due to wound dehiscence and infection. She was admitted by the vascular surgery service, Dr. Hill for debridement. Infected left stump: Patient status post BKA on 05/02/16. - Surgery following. S/P debridement. Wound cultures growing Klebsiella ESBL positive and Morganella. -Patient was followed by ID. She was treated with IV Zerbaxa per ID, Micro with sensitivity testing on Zerbaxa and Avycaz . Antibiotics have since been discontinued. Monitor off antibiotics. - Dilaudid IV for breakthrough pain. Continue Percocet. Right leg pain: Ultrasound negative for DVT. Soft tissue swelling. Continue PT. Continue pain control with Percocet and dilaudid. Hypercoagulable state: History of ischemic bowel and severe peripheral vascular disease. - Continue Xarelto Malnutrition, moderate calorie insufficiency: Patient has an [id number]-p-Ujfd and is on TPN per surgery. Anxiety and depression: - Continue Celexa and Xanax. Hypokalemia: Replace and monitor. now resolved and stable. COPD: Breathing treatments as needed. Stable. GERD: Continue PPI GI prophylaxis: PPI. Stool softener PRN constipation. DVT PPx: Xarelto Discharge Planning PAtient will need [facility] TPN as outpatient - CM to help arrange placement Problem Qualifiers (1) HTN (hypertension): Qualified Code: I10 - Essential hypertension Jeff Carey MD Jul 01, 2016 13:22
[2016-07-01 16:27] VITALS: BP 141/74; PULSE 96; RESP 19; TEMP 98.6; O2SAT 92
--- NOTE | 2016-07-01 16:54 | PD.CAR.PN ---
CVT Progress Note Subjective/Hospital Course: 70-year-old female with a complex medical and surgical history of peripheral vascular disease and multiple related problems presents now status post BK amputation about a month half ago. Patient went to residential and apparently braced herself on the stump several times in bed in hit it against either floor or the chair not quite clear. Part of the stump opened up and at this point patient is dehiscence of skin deeper tissue seemed to be still intact. 06/16/16 Patient underwent yesterday debridement of the stump with wound VAC placement. The dehiscence is fortunately superficial involving skin and muscle in this as been debrided successfully while the rest of the tissues of bleeding and are viable. Wound VAC has been placed Cultures have been reviewed and antibiotics can be adjusted by medicine as appropriate We'll continue current care and patient should be able to go to residential with a wound VAC by Sunday Patient's nutritional status is very poor with a low albumen and prealbumin level and therefore nutritional evaluation and recommendations are requested I believe the patient is not taking sufficient by mouth in the residential and may need supplemental enteral or parenteral feedings at this point 06/17/16 I reviewed the nutritional parameters and patient's prealbumin and transferrin levels a critically low indicating severe malnutrition. Patient's healing is impaired and so is the rehabilitative potential. After reviewing to nutritional recommendations once these are made, we will decide whether patient needs an Egiisp-x-Pjss placed for additional parenteral nutrition for short bowel syndrome Stump is nice and clean with minimal drainage from the wound VAC 06/19/16 Still awaiting nutritional consult and evaluation for patient has short gut syndrome and will probably need additional parenteral feedings. If so patient will need Tljssg-n-Vqhn placement for additional feedings Patient is taking excellent by mouth but despite that her nutritional status is poor and hence the healing issues Left BKA stump incision is clean and wound VAC is in place with minimal drainage and will need to be changed today Awaiting wound care to change the wound VAC. Infectious disease help is much appreciated 06/20/2016 Patient doing well at this time. Stump is clean and the wound VAC will be changed today Patient had Bxjwqm-k-Lvrd placed by radiology for supplemental parenteral feedings. Grateful for the nutritional evaluation. Patient will be placed on TPN at about the 1500 non-protein calories a day split about 60-70% in glucose and about 30% in form of lipids Patient will likely have to be discharged on supplemental TPN in face of her short bowel syndrome 06/21/16 Patient is doing really well at this time She's taking good by mouth diet. 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 There is some granulation tissue which may eventually need to be debrided but at this point I would leave it alone. Stump wound VAC has been changed and this is clean and granulating nicely. Patient is currently on TPN which tolerating well. In face of her short bowel syndrome patient will need TPN after discharge from the hospital. Grateful to case management for making arrangements for the same 06/22/16 Vital signs stable patient is doing well. Her appetite has improved and patient is taking good by mouth diet and having regular bowel movements. The abdominal incision is completely healed and fistula has completely resolved. The BKA wound VAC has been changed and wound is clean and granulating nicely. Gtkiop-y-Lqhf is being used for additional parenteral feedings necessary and short bowel syndrome and patient will be discharged on TPN. 06/23/16 Patient underwent today change of the wound VAC and the wound is clean. Next with will be the last wound VAC change and after that I plan to take the patient to the OR for irrigation and closure of the wound by the middle of the next week. 06/24/16 Patient doing very well at this time she is in a good mood and taking by mouth diet well Unfortunately due to the short bowel syndrome she need supplemental TPN feedings at this time Stump is healed nicely there is a small scab anterior to it and this should allow to fall off on its own Once the arrangements are made for outpatient TPN patient will be able to be discharged Awaiting case management to make the arrangements for outpatient TPN 06/25/16 Vital signs stable Patient is awake and alert and oriented, taking by mouth diet very well Abdomen is soft and the colocutaneous fistula is completely closed The BKA stump has an eschar and a scab but I would leave this alone because underneath its healing nicely. Patient remains on TPN considering the short gut syndrome and will go home on the same Mild anemia is dilutional due to TPN administration and intravenous fluids and does not require therapy at this time 06/26/16 Vital signs stable Patient is awake and alert and oriented, taking by mouth diet very well Abdomen is soft and the colocutaneous fistula is completely closed The BKA stump has an eschar and a scab but I would leave this alone because underneath its healing nicely. Patient remains on TPN considering the short gut syndrome and will go home on the same Mild anemia is dilutional due to TPN administration and intravenous fluids and does not require therapy at this time 06/27/16 Wound VAC has been removed by me and the the entire stump is healed very nicely except a small area but an inch length at the very lateral portion of the incision were we going to put a very small wound VAC on for another week or so. Patient can transfer to rehabilitation at any time as long as she can get intravenous TPN in the process 06/28/16 Wound VAC has been removed by me and the the entire stump is healed very nicely except a small area but an inch length at the very lateral portion of the incision were we going to put a very small wound VAC on for another week or so. Patient can transfer to rehabilitation at any time as long as she can get intravenous TPN Patient will need skilled nursing TPN considering short gut syndrome and this can be done either in a residential or at home I suspect this will be about a six-month process and after that patient may not need additional feedings if we can get her in a reasonable nutritional status in the meantime. I understand the difficulty this creates for case management to find her such an arrangement 06/29/16 Patient doing really well at this time taking good by mouth but due to the short bowel syndrome will require long-term TPN Stump is healing really nicely and the probably after this week we will remove the wound VAC and simply place wet-to-dry dressing and allow this to heal 06/30/16 Patient is doing well tolerates diet. Abdomen is soft with active bowel sounds Incisions are clean and dry Wound VAC last change will be next week and after that we going to remove the wound VAC and continue wet-to-dry dressing Stump is healing really nicely Due to TPN and other issues placement remains a problem 07/01/16 Abdomen soft and active bowel sounds Tolerates diet well Stump is clean and dry and I'll remove the wound VAC on Sunday after that patient will just be on wet-to-dry dressings until the stump heels Arrangements for discharge to difficult due to long-term TPN needs Objective: Vital Signs Date Time Temp Pulse Resp B/P Pulse Ox O2 Delivery O2 Flow Rate FiO2 07/01/16 16:27 98.6 96 19 141/74 92 07/01/16 12:33 97.2 94 20 139/80 90 07/01/16 10:40 Room Air 07/01/16 08:24 98.0 92 20 129/75 90 07/01/16 04:00 97.6 85 17 133/68 91 07/01/16 00:00 96.7 96 18 168/88 91 06/30/16 22:00 Nasal Cannula 06/30/16 20:35 97.0 95 19 166/79 92 Result Diagram: 06/27/16 0902 06/27/16 0902 Janice Olvera MD Jul 01, 2016 16:54
[2016-07-01] MEDS ORDERED: oxyCODONE/ACETAMINOPHEN 5 MG/325 MG TAB PO PRN (20:00)
[2016-07-01] MEDS: ALPRAZolam 0.25 MG TAB PO PRN (21:00)
[2016-07-01] MEDS: GABAPENTIN 100 MG CAP PO SCH (21:00)
[2016-07-01] MEDS: CLINIMIX E 4.25/25 1000 mL- </= 42 mls/hr IV-CENTRAL SCH ×3 (21:02)
[2016-07-01] MEDS: FAT EMULSION 20% INJ 250 ML (Daily over 8 hours) IV-CENTRAL SCH (21:03)
[2016-07-01 21:10] VITALS: BP 143/67; PULSE 92; RESP 20; TEMP 97.4; O2SAT 93
[2016-07-02] VITALS: BP 143/79; PULSE 106; RESP 18; TEMP 97.6; O2SAT 92
[2016-07-02] MEDS: oxyCODONE/ACETAMINOPHEN 10 MG/325 MG TAB PO PRN ×4 (03:27→20:54)
[2016-07-02 04:04] LABS: AUTOMATED NEUTROPHIL # 3.2 TH/MM3 (1.8-7.7); BASOPHIL # 0.1 TH/MM3 (0-0.2); EOSINOPHIL # 0.5 TH/MM3 (0-0.4); EOSINOPHIL % 6.9 % (0.0-4.0); HEMATOCRIT 27.8 % (35.0-46.0); HEMO FLAGS DIFF FINAL; LYMPH % 40.1 % (9.0-44.0); LYMPHOCYTE # 3.1 TH/MM3 (1.0-4.8); MEAN CELL VOLUME 95.6 FL (80.0-100.0); MEAN CORPUSCULAR HEMOGLOBIN 33.3 PG (27.0-34.0); MEAN CORPUSCULAR HGB CONC 34.8 % (32.0-36.0); MONO % 10.5 % (0.0-8.0); NEUT % 41.5 % (16.0-70.0); PLATELET COUNT 447 TH/MM3 (150-450); RED BLOOD COUNT 2.91 MIL/MM3 (4.00-5.30); RED CELL DISTRIBUTION WIDTH 23.4 % (11.6-17.2); WHITE BLOOD COUNT 7.8 TH/MM3 (4.0-11.0)
[2016-07-02 04:19] LABS: ALT (GPT) 19 U/L (10-53); ANION GAP 6 MEQ/L (5-15); AST (GOT) 37 U/L (15-37); BICARBONATE 29.3 MEQ/L (21.0-32.0); BLOOD UREA NITROGEN 10 MG/DL (7-18); CHLORIDE 107 MEQ/L (98-107); GLOMERULAR FILTRATION RATE 131 ML/MIN (>89); MAGNESIUM 1.6 MG/DL (1.5-2.5); POTASSIUM 3.5 MEQ/L (3.5-5.1); SODIUM (NA) 142 MEQ/L (136-145)
[2016-07-02 04:22] LABS: ALKALINE PHOSPHATASE 65 U/L (45-117); TOTAL BILIRUBIN ADULT 0.1 MG/DL (0.2-1.0)
[2016-07-02 06:23] VITALS: BP 153/77; PULSE 100; RESP 18; TEMP 98.1; O2SAT 93
[2016-07-02 08:00] VITALS: BP 131/72; PULSE 95; RESP 18; TEMP 97.6; O2SAT 91
[2016-07-02] MEDS: CALCITRIOL 0.25 MCG CAP PO SCH (09:05)
[2016-07-02] MEDS: LOPERAMIDE HCL 2 MG CAP PO PRN ×2 (09:05→17:31)
[2016-07-02] MEDS: RIVAROXABAN 20 MG TAB PO SCH (09:05)
[2016-07-02] MEDS: PANTOPRAZOLE SOD 20 MG DELAYED RELEASE TAB PO SCH ×2 (09:05→20:54)
[2016-07-02] MEDS: DILTIAZEM-CD 120 MG CAP ER PO SCH (09:05)
[2016-07-02] MEDS: CALCIUM/VITAMIN D 250 MG/125 U TAB PO SCH ×2 (09:05→20:54)
[2016-07-02] MEDS: CITALOPRAM HYDROBROMIDE 40 MG TAB PO SCH (09:05)
[2016-07-02] MEDS: FERROUS SULFATE 325 MG (65 MG ELEMENTAL IRON) TAB PO SCH (09:05)
[2016-07-02] MEDS: NYSTATIN 100,000 UNIT/GM CREAM 15 GM TOPICAL SCH ×2 (09:06→20:57)
[2016-07-02] MEDS: LACTOBACILLUS ACIDOPHILUS TAB PO SCH ×3 (09:06→17:31)
[2016-07-02] MEDS: SODIUM CHLORIDE 0.9% FLUSH 5 ML FLUSH IV FLUSH SCH ×2 (09:08→20:54)
[2016-07-02] MEDS: ONDANSETRON ODT 4 MG TAB PO PRN (09:57)
[2016-07-02 12:00] VITALS: BP 146/69; PULSE 99; RESP 18; TEMP 98.6; O2SAT 92
--- NOTE | 2016-07-02 13:08 | HHI.PR ---
Subjective Remarks fu for infected stump, htn, enterocutaneous fistula patient feels much better states vomited overnight denies fevers or chills denies chest pain sob afebrile tolerated lunch Objective Vitals Vital Signs Date Time Temp Pulse Resp B/P Pulse Ox O2 Delivery O2 Flow Rate FiO2 07/02/16 12:00 98.6 99 18 146/69 92 07/02/16 10:10 Room Air 07/02/16 08:00 97.6 95 18 131/72 91 07/02/16 06:23 98.1 100 18 153/77 93 07/02/16 04:00 Room Air 07/02/16 00:00 97.6 106 18 143/79 92 07/02/16 00:00 Room Air 07/01/16 21:10 97.4 92 20 143/67 93 07/01/16 20:00 Room Air 07/01/16 16:27 98.6 96 19 141/74 92 I/O 07/01/16 07/01/16 07/01/16 07/02/16 07/02/16 07/02/16 07:00 15:00 23:00 07:00 15:00 23:00 Intake Total 722 ml 240 ml 652 ml 843 ml Output Total 600 ml Balance 122 ml 240 ml 652 ml 843 ml Intake Oral 240 ml 240 ml 240 ml IV Total 412 ml TPN/PPN 236 ml 593 ml Lipid 246 ml 250 ml Output Urine Total 450 ml Drainage Total 150 ml # Voids 4 3 3 # Bowel Movements 2 2 0 Result Diagram: 07/02/16 0330 07/02/16 0330 Imaging Last Impressions Lower Extremity Ultrasound 06/25/16 0000 Signed Impressions: Service Date/Time: Saturday, June 25, 2016 15:56 - CONCLUSION: Negative exam with no evidence of deep venous thrombosis. Soft tissue edema. Mike Leija MD Port Line Insertion 06/20/16 0000 Signed Impressions: Service Date/Time: Monday, June 20, 2016 08:53 - CONCLUSION: Uncomplicated ultrasound and fluoroscopic guided implanted central venous port catheter placement as described in detail above. An 8 [employer] port was placed. Kevan Salgado Jr., MD Chest X-Ray 06/17/16 0000 Signed Impressions: Service Date/Time: Friday, June 17, 2016 14:12 - CONCLUSION: Right base infiltrate and small effusion. Calixto Woodruff MD Objective Remarks GENERAL: Chronically ill-appearing patient. SKIN: Abdomen with 1 small enterocutaneous fistula, minimal drainage. CARDIOVASCULAR: Regular rate and rhythm without murmurs, gallops, or rubs. RESPIRATORY: Clear to auscultation. Breath sounds equal bilaterally. No wheezes , rales, or rhonchi. GASTROINTESTINAL: Abdomen soft, non-tender, nondistended. No hepato-splenomegaly , or palpable masses. No guarding. MUSCULOSKELETAL: Left BKA wound vac in place. Very tender to palpation. NEUROLOGICAL: Awake and alert. Normal speech. Procedures Left stump debridement by Dr. Hill on 06/15/16 Medications and IVs Current Medications Medications (Trade) Dose Ordered Sig/Shira Route Start Time Stop Time Status Last Admin (NS Flush) 2 ml BID IV FLUSH 06/14/16 21:00 07/02/16 09:08 (NS Flush) 2 ml UNSCH PRN IV FLUSH 06/14/16 17:00 06/29/16 01:24 (Cardizem Cd) 120 mg DAILY PO 06/15/16 09:00 07/02/16 09:05 (Xanax) 0.125 mg Q6H PRN PO 06/14/16 17:45 07/02/16 16:14 (Rocaltrol) 0.25 mcg DAILY PO 06/15/16 09:00 07/02/16 09:05 (CeleXA) 40 mg DAILY PO 06/15/16 09:00 07/02/16 09:05 (Ferrous Sulfate) 325 mg DAILY PO 06/15/16 09:00 07/02/16 09:05 (Neurontin) 100 mg HS PO 06/14/16 21:00 07/01/16 21:00 (Lactinex) 1 tab TID PO 06/14/16 18:00 07/02/16 17:31 (Imodium) 2 mg Q6H PRN PO 06/14/16 17:45 07/02/16 17:31 (Oscal-D 250-125) 500 mg BID PO 06/14/16 21:00 07/02/16 09:05 (Protonix) 20 mg BID PO 06/14/16 21:00 07/02/16 09:05 (Zofran Odt) 8 mg Q6H PRN PO 06/14/16 18:15 07/02/16 09:57 (Pill Splitter) 1 ea UNSCH PRN OTHER 06/14/16 18:00 (Theragran) 1 tab DAILY PO 06/15/16 12:00 Hold 06/20/16 15:16 (Dilaudid Pf Inj) 1 mg Q4H PRN IV PUSH 06/15/16 14:30 07/01/16 16:22 (Mycostatin Cream) 1 applic Q12HR TOPICAL 06/19/16 15:00 07/02/16 09:06 (Heparin Central Flush) 500 units UNSCH IVF 06/20/16 11:30 06/24/16 05:25 (NS Flush) 5 ml UNSCH PRN IVF 06/20/16 11:30 (Heparin Central Flush) 250 units UNSCH PRN IVF 06/20/16 11:30 Rivaroxaban 20 mg 20 mg DAILY PO 06/21/16 09:00 07/02/16 09:05 Multivitamins 10 ml/Folic Acid 1 mg/Amino Acid Electrolyte w/ Calc 1,010.2 ml @ 42 mls/hr Q24H IV-CENTRAL 06/20/16 20:00 07/01/16 21:02 (Liposyn Iii 20% Inj) 250 ml @ 31.25 mls/ hr Q24H IV-CENTRAL 06/20/16 20:00 07/01/16 21:03 (Percocet 10-325 Mg) 1 tab Q4H PRN PO 06/22/16 19:15 07/02/16 14:25 (Percocet 5-325 Mg) 1 tab Q3H PRN PO 07/01/16 20:00 Urinary Catheter: No Vascular Central Line Catheter: No A/P Problem List: (1) Infection of amputation stump Status: Acute (2) Enterocutaneous fistula Status: Chronic (3) Hypercoagulable state Status: Chronic (4) HTN (hypertension) Status: Chronic (5) Anxiety about health Status: Chronic Assessment and Plan The patient is a 70-year-old female with a medical history significant for ischemic bowel with resection and development of chronic enterocutaneous fistula , asthma, depression, COPD, severe peripheral vascular disease status post left BKA. The patient was discharged from the hospital on 06/06/16 to a care home facility for rehabilitation. The stitches on the left stump were taken out 2 weeks ago. She reports that the wound has been opening up when she participated with physical therapy. She returned due to wound dehiscence and infection. She was admitted by the vascular surgery service, Dr. Hill for debridement. Infected left stump: Patient status post BKA on 05/02/16. - Surgery following. S/P debridement. Wound cultures growing Klebsiella ESBL positive and Morganella. -Patient was followed by ID. She was treated with IV Zerbaxa per ID, Micro with sensitivity testing on Zerbaxa and Avycaz . Antibiotics have since been discontinued. Monitor off antibiotics. - Dilaudid IV for breakthrough pain. Continue Percocet. Right leg pain: Ultrasound negative for DVT. Soft tissue swelling. Continue PT. Continue pain control with Percocet and dilaudid. Hypercoagulable state: History of ischemic bowel and severe peripheral vascular disease. - Continue Xarelto Malnutrition, moderate calorie insufficiency: Patient has an Tgvdio-p-Afmj and is on TPN per surgery. Anxiety and depression: - Continue Celexa and Xanax. Hypokalemia: Replace and monitor. now resolved and stable. COPD: Breathing treatments as needed. Stable. GERD: Continue PPI GI prophylaxis: PPI. Stool softener PRN constipation. DVT PPx: Xarelto Discharge Planning PAtient will need fpc TPN as outpatient - CM to help arrange placement Problem Qualifiers (1) HTN (hypertension): Qualified Code: I10 - Essential hypertension Jeff Carey MD Jul 02, 2016 13:08
[2016-07-02] MEDS ORDERED: POTASSIUM CHLORIDE 20 MEQ CONTROLLED RELEASE TAB PO ONE (13:15)
[2016-07-02 16:00] VITALS: BP 133/63; PULSE 93; RESP 18; TEMP 97.6; O2SAT 92
[2016-07-02] MEDS: ALPRAZolam 0.25 MG TAB PO PRN ×2 (16:14→20:54)
[2016-07-02 20:00] VITALS: BP 141/72; PULSE 88; RESP 18; TEMP 98; O2SAT 92
[2016-07-02] MEDS: CLINIMIX E 4.25/25 1000 mL- </= 42 mls/hr IV-CENTRAL SCH ×3 (20:53)
[2016-07-02] MEDS: FAT EMULSION 20% INJ 250 ML (Daily over 8 hours) IV-CENTRAL SCH (20:53)
[2016-07-02] MEDS: GABAPENTIN 100 MG CAP PO SCH (20:54)
[2016-07-03] VITALS (7 sets, daily range): BP systolic 136–152; BP diastolic 68–86; PULSE 86–101; RESP 18–22; TEMP 97.5–98.6; O2SAT 90–95
[2016-07-03] MEDS: oxyCODONE/ACETAMINOPHEN 10 MG/325 MG TAB PO PRN ×4 (01:17→18:21)
[2016-07-03] MEDS: LOPERAMIDE HCL 2 MG CAP PO PRN ×2 (02:49→14:20)
[2016-07-03] MEDS: CALCITRIOL 0.25 MCG CAP PO SCH (09:23)
[2016-07-03] MEDS: CITALOPRAM HYDROBROMIDE 40 MG TAB PO SCH (09:24)
[2016-07-03] MEDS: RIVAROXABAN 20 MG TAB PO SCH (09:24)
[2016-07-03] MEDS: DILTIAZEM-CD 120 MG CAP ER PO SCH (09:24)
[2016-07-03] MEDS: PANTOPRAZOLE SOD 20 MG DELAYED RELEASE TAB PO SCH ×2 (09:24→20:45)
[2016-07-03] MEDS: LACTOBACILLUS ACIDOPHILUS TAB PO SCH ×3 (09:24→18:21)
[2016-07-03] MEDS: FERROUS SULFATE 325 MG (65 MG ELEMENTAL IRON) TAB PO SCH (09:24)
[2016-07-03] MEDS: CALCIUM/VITAMIN D 250 MG/125 U TAB PO SCH ×2 (09:24→20:45)
[2016-07-03] MEDS: SODIUM CHLORIDE 0.9% FLUSH 5 ML FLUSH IV FLUSH SCH ×2 (09:25→20:46)
[2016-07-03] MEDS: NYSTATIN 100,000 UNIT/GM CREAM 15 GM TOPICAL SCH ×2 (09:27→20:46)
[2016-07-03] MEDS: ONDANSETRON ODT 4 MG TAB PO PRN (09:38)
--- NOTE | 2016-07-03 11:51 | PD.CAR.PN ---
CVT Progress Note Subjective/Hospital Course: 70-year-old female with a complex medical and surgical history of peripheral vascular disease and multiple related problems presents now status post BK amputation about a month half ago. Patient went to senior living and apparently braced herself on the stump several times in bed in hit it against either floor or the chair not quite clear. Part of the stump opened up and at this point patient is dehiscence of skin deeper tissue seemed to be still intact. 06/16/16 Patient underwent yesterday debridement of the stump with wound VAC placement. The dehiscence is fortunately superficial involving skin and muscle in this as been debrided successfully while the rest of the tissues of bleeding and are viable. Wound VAC has been placed Cultures have been reviewed and antibiotics can be adjusted by medicine as appropriate We'll continue current care and patient should be able to go to senior living with a wound VAC by Sunday Patient's nutritional status is very poor with a low albumen and prealbumin level and therefore nutritional evaluation and recommendations are requested I believe the patient is not taking sufficient by mouth in the senior living and may need supplemental enteral or parenteral feedings at this point 06/17/16 I reviewed the nutritional parameters and patient's prealbumin and transferrin levels a critically low indicating severe malnutrition. Patient's healing is impaired and so is the rehabilitative potential. After reviewing to nutritional recommendations once these are made, we will decide whether patient needs an Qiqtzj-q-Fwpx placed for additional parenteral nutrition for short bowel syndrome Stump is nice and clean with minimal drainage from the wound VAC 06/19/16 Still awaiting nutritional consult and evaluation for patient has short gut syndrome and will probably need additional parenteral feedings. If so patient will need Sewmgv-x-Ytkg placement for additional feedings Patient is taking excellent by mouth but despite that her nutritional status is poor and hence the healing issues Left BKA stump incision is clean and wound VAC is in place with minimal drainage and will need to be changed today Awaiting wound care to change the wound VAC. Infectious disease help is much appreciated 06/20/2016 Patient doing well at this time. Stump is clean and the wound VAC will be changed today Patient had Vdqhtl-j-Nkdi placed by radiology for supplemental parenteral feedings. Grateful for the nutritional evaluation. Patient will be placed on TPN at about the 1500 non-protein calories a day split about 60-70% in glucose and about 30% in form of lipids Patient will likely have to be discharged on supplemental TPN in face of her short bowel syndrome 06/21/16 Patient is doing really well at this time She's taking good by mouth diet. 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 There is some granulation tissue which may eventually need to be debrided but at this point I would leave it alone. Stump wound VAC has been changed and this is clean and granulating nicely. Patient is currently on TPN which tolerating well. In face of her short bowel syndrome patient will need TPN after discharge from the hospital. Grateful to case management for making arrangements for the same 06/22/16 Vital signs stable patient is doing well. Her appetite has improved and patient is taking good by mouth diet and having regular bowel movements. The abdominal incision is completely healed and fistula has completely resolved. The BKA wound VAC has been changed and wound is clean and granulating nicely. Aisijn-z-Datl is being used for additional parenteral feedings necessary and short bowel syndrome and patient will be discharged on TPN. 06/23/16 Patient underwent today change of the wound VAC and the wound is clean. Next with will be the last wound VAC change and after that I plan to take the patient to the OR for irrigation and closure of the wound by the middle of the next week. 06/24/16 Patient doing very well at this time she is in a good mood and taking by mouth diet well Unfortunately due to the short bowel syndrome she need supplemental TPN feedings at this time Stump is healed nicely there is a small scab anterior to it and this should allow to fall off on its own Once the arrangements are made for outpatient TPN patient will be able to be discharged Awaiting case management to make the arrangements for outpatient TPN 06/25/16 Vital signs stable Patient is awake and alert and oriented, taking by mouth diet very well Abdomen is soft and the colocutaneous fistula is completely closed The BKA stump has an eschar and a scab but I would leave this alone because underneath its healing nicely. Patient remains on TPN considering the short gut syndrome and will go home on the same Mild anemia is dilutional due to TPN administration and intravenous fluids and does not require therapy at this time 06/26/16 Vital signs stable Patient is awake and alert and oriented, taking by mouth diet very well Abdomen is soft and the colocutaneous fistula is completely closed The BKA stump has an eschar and a scab but I would leave this alone because underneath its healing nicely. Patient remains on TPN considering the short gut syndrome and will go home on the same Mild anemia is dilutional due to TPN administration and intravenous fluids and does not require therapy at this time 06/27/16 Wound VAC has been removed by me and the the entire stump is healed very nicely except a small area but an inch length at the very lateral portion of the incision were we going to put a very small wound VAC on for another week or so. Patient can transfer to rehabilitation at any time as long as she can get intravenous TPN in the process 06/28/16 Wound VAC has been removed by me and the the entire stump is healed very nicely except a small area but an inch length at the very lateral portion of the incision were we going to put a very small wound VAC on for another week or so. Patient can transfer to rehabilitation at any time as long as she can get intravenous TPN Patient will need [facility] TPN considering short gut syndrome and this can be done either in a senior living or at home I suspect this will be about a six-month process and after that patient may not need additional feedings if we can get her in a reasonable nutritional status in the meantime. I understand the difficulty this creates for case management to find her such an arrangement 06/29/16 Patient doing really well at this time taking good by mouth but due to the short bowel syndrome will require long-term TPN Stump is healing really nicely and the probably after this week we will remove the wound VAC and simply place wet-to-dry dressing and allow this to heal 06/30/16 Patient is doing well tolerates diet. Abdomen is soft with active bowel sounds Incisions are clean and dry Wound VAC last change will be next week and after that we going to remove the wound VAC and continue wet-to-dry dressing Stump is healing really nicely Due to TPN and other issues placement remains a problem 07/01/16 Abdomen soft and active bowel sounds Tolerates diet well Stump is clean and dry and I'll remove the wound VAC on Sunday after that patient will just be on wet-to-dry dressings until the stump heels Arrangements for discharge to difficult due to long-term TPN needs 07/03/16 Vital signs stable Stump is clean and wound VAC after next removal won't need to be applied again Patient will remain long-term on TPN and I'm waiting for case management to make discharge arrangements Will [facility] medicine kindly if patient can be transferred to medicine service at this time Objective: Vital Signs Date Time Temp Pulse Resp B/P Pulse Ox O2 Delivery O2 Flow Rate FiO2 07/03/16 08:00 98.6 94 18 144/86 93 07/03/16 07:44 Room Air 07/03/16 04:00 Room Air 07/03/16 04:00 98.3 88 18 142/68 93 07/03/16 00:00 98.2 86 20 144/75 90 07/03/16 00:00 Room Air 07/02/16 20:00 98.0 88 18 141/72 92 07/02/16 20:00 Room Air 07/02/16 16:00 97.6 93 18 133/63 92 07/02/16 12:00 98.6 99 18 146/69 92 Result Diagram: 07/02/16 0330 07/02/16 0330 Janice Olvera MD Jul 03, 2016 11:51
--- NOTE | 2016-07-03 18:42 | HHI.PR ---
Subjective Remarks denies fevers/cp no sob tolerating diet Objective Vitals Vital Signs Date Time Temp Pulse Resp B/P Pulse Ox O2 Delivery O2 Flow Rate FiO2 07/03/16 16:00 97.5 94 20 139/82 95 07/03/16 12:54 95 21 07/03/16 12:00 98.1 101 22 152/85 92 07/03/16 08:00 98.6 94 18 144/86 93 07/03/16 07:44 Room Air 07/03/16 04:00 Room Air 07/03/16 04:00 98.3 88 18 142/68 93 07/03/16 00:00 98.2 86 20 144/75 90 07/03/16 00:00 Room Air 07/02/16 20:00 98.0 88 18 141/72 92 07/02/16 20:00 Room Air I/O 07/02/16 07/02/16 07/02/16 07/03/16 07/03/16 07/03/16 06:59 14:59 22:59 06:59 14:59 22:59 Intake Total 843 ml 720 ml 547 ml 997 ml 360 ml Balance 843 ml 720 ml 547 ml 997 ml 360 ml Intake Oral 720 ml 120 ml 240 ml 360 ml TPN/PPN 593 ml 427 ml 507 ml Lipid 250 ml 250 ml # Voids 3 4 1 4 3 # Bowel Movements 0 2 1 6 5 Result Diagram: 07/02/1632907/02/16329 Objective Remarks GENERAL: Chronically ill-appearing patient. SKIN: Abdomen with 1 small enterocutaneous fistula, minimal drainage. CARDIOVASCULAR: Regular rate and rhythm without murmurs, gallops, or rubs. RESPIRATORY: Clear to auscultation. Breath sounds equal bilaterally. No wheezes , rales, or rhonchi. GASTROINTESTINAL: Abdomen soft, non-tender, nondistended. No hepato-splenomegaly , or palpable masses. No guarding. MUSCULOSKELETAL: Left BKA wound vac in place. Very tender to palpation. NEUROLOGICAL: Awake and alert. Normal speech. Procedures Left stump debridement by Dr. Hill on 06/15/16 Medications and IVs Current Medications Medications (Trade) Dose Ordered Sig/Shira Route Start Time Stop Time Status Last Admin (NS Flush) 2 ml BID IV FLUSH 8/24/16 21:00 07/03/16 20:46 (NS Flush) 2 ml UNSCH PRN IV FLUSH 06/14/16 17:00 06/29/16 01:24 (Cardizem Cd) 120 mg DAILY PO 06/15/16 09:00 07/03/16 09:24 (Xanax) 0.125 mg Q6H PRN PO 06/14/16 17:45 07/02/16 20:54 (Rocaltrol) 0.25 mcg DAILY PO 06/15/16 09:00 07/03/16 09:23 (CeleXA) 40 mg DAILY PO 06/15/16 09:00 07/03/16 09:24 (Ferrous Sulfate) 325 mg DAILY PO 06/15/16 09:00 07/03/16 09:24 (Neurontin) 100 mg HS PO 06/14/16 21:00 07/03/16 20:45 (Lactinex) 1 tab TID PO 06/14/16 18:00 07/03/16 18:21 (Imodium) 2 mg Q6H PRN PO 06/14/16 17:45 07/03/16 14:20 (Oscal-D 250-125) 500 mg BID PO 06/14/16 21:00 07/03/16 20:45 (Protonix) 20 mg BID PO 06/14/16 21:00 07/03/16 20:45 (Zofran Odt) 8 mg Q6H PRN PO 06/14/16 18:15 07/03/16 09:38 (Pill Splitter) 1 ea UNSCH PRN OTHER 06/14/16 18:00 (Theragran) 1 tab DAILY PO 06/15/16 12:00 Hold 06/20/16 15:16 (Dilaudid Pf Inj) 1 mg Q4H PRN IV PUSH 06/15/16 14:30 07/01/16 16:22 (Mycostatin Cream) 1 applic Q12HR TOPICAL 06/19/16 15:00 07/03/16 20:46 (Heparin Central Flush) 500 units UNSCH IVF 06/20/16 11:30 06/24/16 05:25 (NS Flush) 5 ml UNSCH PRN IVF 06/20/16 11:30 (Heparin Central Flush) 250 units UNSCH PRN IVF 06/20/16 11:30 Rivaroxaban 20 mg 20 mg DAILY PO 06/21/16 09:00 07/03/16 09:24 Multivitamins 10 ml/Folic Acid 1 mg/Amino Acid Electrolyte w/ Calc 1,010.2 ml @ 42 mls/hr Q24H IV-CENTRAL 06/20/16 20:00 07/03/16 20:32 (Liposyn Iii 20% Inj) 250 ml @ 31.25 mls/ hr Q24H IV-CENTRAL 06/20/16 20:00 07/03/16 20:36 (Percocet 10-325 Mg) 1 tab Q4H PRN PO 06/22/16 19:15 07/04/16 02:12 (Percocet 5-325 Mg) 1 tab Q3H PRN PO 07/01/16 20:00 A/P Problem List: (1) Infection of amputation stump Status: Acute (2) Enterocutaneous fistula Status: Chronic (3) Hypercoagulable state Status: Chronic (4) HTN (hypertension) Status: Chronic (5) Anxiety about health Status: Chronic Assessment and Plan The patient is a 70-year-old female with a medical history significant for ischemic bowel with resection and development of chronic enterocutaneous fistula , asthma, depression, COPD, severe peripheral vascular disease status post left BKA. The patient was discharged from the hospital on 06/06/16 to a correction facility for rehabilitation. The stitches on the left stump were taken out 2 weeks ago. She reports that the wound has been opening up when she participated with physical therapy. She returned due to wound dehiscence and infection. She was admitted by the vascular surgery service, Dr. Hill for debridement. Infected left stump: Patient status post BKA on 05/02/16. - Surgery following. S/P debridement. Wound cultures growing Klebsiella ESBL positive and Morganella. -Patient was followed by ID. She was treated with IV Zerbaxa per ID, Micro with sensitivity testing on Zerbaxa and Avycaz . Antibiotics have since been discontinued. Monitor off antibiotics. - Dilaudid IV for breakthrough pain. Continue Percocet. - Management as per vascular surgery. After next wound vac removal won't need to be applied again. - Medicine will kindly take over and accept patient. Right leg pain: Ultrasound negative for DVT. Soft tissue swelling. Continue PT. Continue pain control with Percocet and dilaudid. Hypercoagulable state: History of ischemic bowel and severe peripheral vascular disease. - Continue Xarelto Malnutrition, moderate calorie insufficiency: Patient has an [id number] and is on TPN per surgery. Anxiety and depression: - Continue Celexa and Xanax. Hypokalemia: Replace and monitor. now resolved and stable. COPD: Breathing treatments as needed. Stable. GERD: Continue PPI GI prophylaxis: PPI. Stool softener PRN constipation. DVT PPx: Xarelto Discharge Planning PAtient will need nursing home TPN as outpatient - CM to help arrange placement Problem Qualifiers (1) HTN (hypertension): Qualified Code: I10 - Essential hypertension Jeff Carey MD Jul 03, 2016 18:42
[2016-07-03] MEDS: CLINIMIX E 4.25/25 1000 mL- </= 42 mls/hr IV-CENTRAL SCH ×3 (20:32)
[2016-07-03] MEDS: FAT EMULSION 20% INJ 250 ML (Daily over 8 hours) IV-CENTRAL SCH (20:36)
[2016-07-03] MEDS: GABAPENTIN 100 MG CAP PO SCH (20:45)
[2016-07-04] VITALS: BP 141/61; PULSE 81; RESP 20; TEMP 98.1; O2SAT 93
[2016-07-04] MEDS: oxyCODONE/ACETAMINOPHEN 10 MG/325 MG TAB PO PRN ×5 (02:12→20:55)
[2016-07-04 04:00] VITALS: BP 144/71; PULSE 94; RESP 20; TEMP 98.5; O2SAT 92
[2016-07-04 08:00] VITALS: BP 121/68; PULSE 88; RESP 18; TEMP 98.5; O2SAT 92
[2016-07-04] MEDS: SODIUM CHLORIDE 0.9% FLUSH 5 ML FLUSH IV FLUSH SCH ×2 (09:01→20:56)
[2016-07-04] MEDS: CITALOPRAM HYDROBROMIDE 40 MG TAB PO SCH (09:02)
[2016-07-04] MEDS: DILTIAZEM-CD 120 MG CAP ER PO SCH (09:02)
[2016-07-04] MEDS: PANTOPRAZOLE SOD 20 MG DELAYED RELEASE TAB PO SCH ×2 (09:02→20:54)
[2016-07-04] MEDS: CALCITRIOL 0.25 MCG CAP PO SCH (09:02)
[2016-07-04] MEDS: CALCIUM/VITAMIN D 250 MG/125 U TAB PO SCH ×2 (09:02→20:55)
[2016-07-04] MEDS: FERROUS SULFATE 325 MG (65 MG ELEMENTAL IRON) TAB PO SCH (09:02)
[2016-07-04] MEDS: RIVAROXABAN 20 MG TAB PO SCH (09:02)
[2016-07-04] MEDS: LACTOBACILLUS ACIDOPHILUS TAB PO SCH ×3 (09:02→17:13)
[2016-07-04] MEDS: HYDROmorphone HCL PF 1 MG/ML VIAL IV PUSH PRN (09:03)
[2016-07-04] MEDS: NYSTATIN 100,000 UNIT/GM CREAM 15 GM TOPICAL SCH ×2 (09:08→21:08)
[2016-07-04] MEDS: LOPERAMIDE HCL 2 MG CAP PO PRN ×2 (09:22→17:14)
[2016-07-04] MEDS: ONDANSETRON ODT 4 MG TAB PO PRN ×2 (09:22→17:13)
[2016-07-04 12:00] VITALS: BP 132/75; PULSE 89; RESP 16; TEMP 98; O2SAT 92
[2016-07-04 16:00] VITALS: BP 146/77; PULSE 86; RESP 18; TEMP 97.4; O2SAT 95
--- NOTE | 2016-07-04 18:06 | HHI.PR ---
Subjective Remarks fu for infected stump, htn, enterocutaneous fistula As per RN the patient has had multiple episodes of smelly diarrhea. patient c/o decreased appetite denies cough c/o abdominal distension and some difuse pain Objective Vitals Vital Signs Date Time Temp Pulse Resp B/P Pulse Ox O2 Delivery O2 Flow Rate FiO2 07/04/16 08:36 Room Air 07/04/16 08:00 98.5 88 18 121/68 92 07/04/16 04:00 98.5 94 20 144/71 92 07/04/16 00:00 98.1 81 20 141/61 93 07/03/16 20:00 Room Air 07/03/16 20:00 97.7 87 18 136/70 93 I/O 07/03/16 07/03/16 07/03/16 07/04/16 07/04/16 07/04/16 07:00 15:00 23:00 07:00 15:00 23:00 Intake Total 997 ml 360 ml 240 ml Output Total 300 ml Balance 997 ml 360 ml -60 ml Intake Oral 240 ml 360 ml 240 ml TPN/PPN 507 ml Lipid 250 ml Output Urine Total 300 ml # Voids 4 3 # Bowel Movements 6 5 2 Result Diagram: 07/02/16 0330 07/02/16 0330 Imaging Last Impressions Lower Extremity Ultrasound 06/25/16 0000 Signed Impressions: Service Date/Time: Saturday, June 25, 2016 15:56 - CONCLUSION: Negative exam with no evidence of deep venous thrombosis. Soft tissue edema. Mike Leija MD Port Line Insertion 06/20/16 0000 Signed Impressions: Service Date/Time: Monday, June 20, 2016 08:53 - CONCLUSION: Uncomplicated ultrasound and fluoroscopic guided implanted central venous port catheter placement as described in detail above. An 8 [place] Power port was placed. Kevan Salgado Jr., MD Chest X-Ray 06/17/16 0000 Signed Impressions: Service Date/Time: Friday, June 17, 2016 14:12 - CONCLUSION: Right base infiltrate and small effusion. Calixto Woodruff MD Objective Remarks GENERAL: Chronically ill-appearing patient. SKIN: Abdomen with 1 small enterocutaneous fistula, minimal drainage. CARDIOVASCULAR: Regular rate and rhythm without murmurs, gallops, or rubs. RESPIRATORY: Clear to auscultation. Breath sounds equal bilaterally. No wheezes , rales, or rhonchi. GASTROINTESTINAL: Abdomen soft, mild diffuse tenderness, mildly distended. No hepato-splenomegaly, or palpable masses. No guarding. MUSCULOSKELETAL: Left BKA wound vac in place. Very tender to palpation. NEUROLOGICAL: Awake and alert. Normal speech. Procedures Left stump debridement by Dr. Hill on 06/15/16 Medications and IVs Current Medications Medications (Trade) Dose Ordered Sig/Shira Route Start Time Stop Time Status Last Admin (NS Flush) 2 ml BID IV FLUSH 06/14/16 21:00 07/04/16 09:01 (NS Flush) 2 ml UNSCH PRN IV FLUSH 06/14/16 17:00 06/29/16 01:24 (Cardizem Cd) 120 mg DAILY PO 06/15/16 09:00 07/04/16 09:02 (Xanax) 0.125 mg Q6H PRN PO 06/14/16 17:45 07/02/16 20:54 (Rocaltrol) 0.25 mcg DAILY PO 06/15/16 09:00 07/04/16 09:02 (CeleXA) 40 mg DAILY PO 06/15/16 09:00 07/04/16 09:02 (Ferrous Sulfate) 325 mg DAILY PO 06/15/16 09:00 07/04/16 09:02 (Neurontin) 100 mg HS PO 06/14/16 21:00 07/03/16 20:45 (Lactinex) 1 tab TID PO 06/14/16 18:00 07/04/16 17:13 (Imodium) 2 mg Q6H PRN PO 06/14/16 17:45 07/04/16 17:14 (Oscal-D 250-125) 500 mg BID PO 06/14/16 21:00 07/04/16 09:02 (Protonix) 20 mg BID PO 06/14/16 21:00 07/04/16 09:02 (Zofran Odt) 8 mg Q6H PRN PO 06/14/16 18:15 07/04/16 17:13 (Pill Splitter) 1 ea UNSCH PRN OTHER 06/14/16 18:00 (Theragran) 1 tab DAILY PO 06/15/16 12:00 Hold 06/20/16 15:16 (Dilaudid Pf Inj) 1 mg Q4H PRN IV PUSH 06/15/16 14:30 07/04/16 09:03 (Mycostatin Cream) 1 applic Q12HR TOPICAL 06/19/16 15:00 07/04/16 09:08 (Heparin Central Flush) 500 units UNSCH IVF 06/20/16 11:30 06/24/16 05:25 (NS Flush) 5 ml UNSCH PRN IVF 06/20/16 11:30 (Heparin Central Flush) 250 units UNSCH PRN IVF 06/20/16 11:30 Rivaroxaban 20 mg 20 mg DAILY PO 06/21/16 09:00 07/04/16 09:02 Multivitamins 10 ml/Folic Acid 1 mg/Amino Acid Electrolyte w/ Calc 1,010.2 ml @ 42 mls/hr Q24H IV-CENTRAL 06/20/16 20:00 07/03/16 20:32 (Liposyn Iii 20% Inj) 250 ml @ 31.25 mls/ hr Q24H IV-CENTRAL 06/20/16 20:00 07/03/16 20:36 (Percocet 10-325 Mg) 1 tab Q4H PRN PO 06/22/16 19:15 07/04/16 17:14 (Percocet 5-325 Mg) 1 tab Q3H PRN PO 07/01/16 20:00 Urinary Catheter: No Vascular Central Line Catheter: No A/P Problem List: (1) Infection of amputation stump Status: Acute (2) Enterocutaneous fistula Status: Chronic (3) Hypercoagulable state Status: Chronic (4) HTN (hypertension) Status: Chronic (5) Anxiety about health Status: Chronic (6) Diarrhea Status: Acute Plan: Diarrhea could be secondary to shortgut syndrome, however patient is at risk for C diff. Check C. difficile PCR in stool and check stool studies. (7) Severe protein-calorie malnutrition Status: Acute Plan: As evidenced by albumen of 1.8. Patient currently on TPN and being followed by dietitian. Assessment and Plan The patient is a 70-year-old female with a medical history significant for ischemic bowel with resection and development of chronic enterocutaneous fistula , asthma, depression, COPD, severe peripheral vascular disease status post left BKA. The patient was discharged from the hospital on 06/06/16 to a [facility] facility for rehabilitation. The stitches on the left stump were taken out 2 weeks ago. She reports that the wound has been opening up when she participated with physical therapy. She returned due to wound dehiscence and infection. She was admitted by the vascular surgery service, Dr. Hill for debridement. Infected left stump: Patient status post BKA on 05/02/16. - Surgery following. S/P debridement. Wound cultures growing Klebsiella ESBL positive and Morganella. -Patient was followed by ID. She was treated with IV Zerbaxa per ID, Micro with sensitivity testing on Zerbaxa and Avycaz . Antibiotics have since been discontinued. Monitor off antibiotics. - Dilaudid IV for breakthrough pain. Continue Percocet. - Management as per vascular surgery. After next wound vac removal won't need to be applied again. - Medicine will kindly take over and accept patient. Right leg pain: Ultrasound negative for DVT. Soft tissue swelling. Continue PT. Continue pain control with Percocet and dilaudid. Hypercoagulable state: History of ischemic bowel and severe peripheral vascular disease. - Continue Xarelto Anxiety and depression: - Continue Celexa and Xanax. Hypokalemia: Replace and monitor. now resolved and stable. COPD: Breathing treatments as needed. Stable. GERD: Continue PPI GI prophylaxis: PPI. Stool softener PRN constipation. DVT PPx: Xarelto Discharge Planning PAtient will need detention TPN as outpatient - CM to help arrange placement Problem Qualifiers (1) HTN (hypertension): Qualified Code: I10 - Essential hypertension (2) Diarrhea: Qualified Code: R19.7 - Diarrhea, unspecified type Jeff Carey MD Jul 04, 2016 18:06
[2016-07-04] MEDS ORDERED: POTASSIUM CHLORIDE 10 MEQ CONTROLLED RELEASE TAB PO ONE (18:15)
[2016-07-04 20:00] VITALS: BP 139/69; PULSE 93; RESP 20; TEMP 98.5; O2SAT 95
[2016-07-04] MEDS: FAT EMULSION 20% INJ 250 ML (Daily over 8 hours) IV-CENTRAL SCH (20:44)
[2016-07-04] MEDS: CLINIMIX E 4.25/25 1000 mL- </= 42 mls/hr IV-CENTRAL SCH ×3 (20:45)
[2016-07-04] MEDS: GABAPENTIN 100 MG CAP PO SCH (20:54)
[2016-07-05] VITALS (8 sets, daily range): BP systolic 130–152; BP diastolic 59–85; PULSE 80–93; RESP 16–22; TEMP 97.4–99.2; O2SAT 92–95
[2016-07-05] MEDS: HYDROmorphone HCL PF 1 MG/ML VIAL IV PUSH PRN ×2 (00:50→15:15)
[2016-07-05] MEDS: oxyCODONE/ACETAMINOPHEN 10 MG/325 MG TAB PO PRN ×3 (06:52→21:03)
[2016-07-05] MEDS: CALCIUM/VITAMIN D 250 MG/125 U TAB PO SCH ×2 (08:53→21:02)
[2016-07-05] MEDS: DILTIAZEM-CD 120 MG CAP ER PO SCH (08:53)
[2016-07-05] MEDS: LACTOBACILLUS ACIDOPHILUS TAB PO SCH ×3 (08:53→17:01)
[2016-07-05] MEDS: CALCITRIOL 0.25 MCG CAP PO SCH (08:53)
[2016-07-05] MEDS: PANTOPRAZOLE SOD 20 MG DELAYED RELEASE TAB PO SCH ×2 (08:53→21:02)
[2016-07-05] MEDS: CITALOPRAM HYDROBROMIDE 40 MG TAB PO SCH (08:53)
[2016-07-05] MEDS: FERROUS SULFATE 325 MG (65 MG ELEMENTAL IRON) TAB PO SCH (08:53)
[2016-07-05] MEDS: SODIUM CHLORIDE 0.9% FLUSH 5 ML FLUSH IV FLUSH SCH ×2 (08:54→21:01)
[2016-07-05] MEDS: NYSTATIN 100,000 UNIT/GM CREAM 15 GM TOPICAL SCH ×2 (08:54→21:03)
[2016-07-05] MEDS: RIVAROXABAN 20 MG TAB PO SCH (08:54)
[2016-07-05] MEDS: ONDANSETRON ODT 4 MG TAB PO PRN (10:19)
[2016-07-05] MEDS: CLINIMIX E 4.25/25 1000 mL- </= 42 mls/hr IV-CENTRAL SCH ×3 (20:52)
[2016-07-05] MEDS: FAT EMULSION 20% INJ 250 ML (Daily over 8 hours) IV-CENTRAL SCH (20:52)
[2016-07-05] MEDS: GABAPENTIN 100 MG CAP PO SCH (21:02)
--- NOTE | 2016-07-05 23:15 | HHI.PR ---
Subjective Remarks Patient c/o diarrhea and decreased appetite feels depressed c/o redness and pain in sacrum no fevers/chills Objective Vitals Vital Signs Date Time Temp Pulse Resp B/P Pulse Ox O2 Delivery O2 Flow Rate FiO2 07/05/16 20:00 98.0 84 16 143/67 93 07/05/16 16:14 Room Air 21 07/05/16 16:00 97.4 86 20 131/69 93 07/05/16 12:00 97.9 80 22 146/68 92 07/05/16 09:22 Room Air 21 07/05/16 08:16 95 07/05/16 08:00 98.0 93 20 149/77 92 07/05/16 04:00 97.9 84 18 152/85 94 07/05/16 00:00 98.1 84 18 134/74 93 I/O 07/04/16 07/04/16 07/04/16 07/05/16 07/05/16 07/05/16 07:00 15:00 23:00 07:00 15:00 23:00 Intake Total 240 ml 360 ml 120 ml 240 ml 240 ml Output Total 300 ml 525 ml 125 ml Balance -60 ml 360 ml 120 ml -285 ml 115 ml Intake Oral 240 ml 360 ml 120 ml 240 ml 240 ml Output Urine Total 300 ml 525 ml 125 ml # Voids 8 5 # Bowel Movements 2 8 5 4 2 Result Diagram: 07/02/16 0330 07/02/16 0330 Imaging Last Impressions Lower Extremity Ultrasound 06/25/16 0000 Signed Impressions: Service Date/Time: Saturday, June 25, 2016 15:56 - CONCLUSION: Negative exam with no evidence of deep venous thrombosis. Soft tissue edema. Mike Leija MD Port Line Insertion 06/20/16 0000 Signed Impressions: Service Date/Time: Monday, June 20, 2016 08:53 - CONCLUSION: Uncomplicated ultrasound and fluoroscopic guided implanted central venous port catheter placement as described in detail above. An 8 [place] Power port was placed. Kevan Salgado Jr., MD Chest X-Ray 06/17/16 0000 Signed Impressions: Service Date/Time: Friday, June 17, 2016 14:12 - CONCLUSION: Right base infiltrate and small effusion. Calixto Woodruff MD Objective Remarks GENERAL: Chronically ill-appearing patient. SKIN: Abdomen with 1 small enterocutaneous fistula, minimal drainage. CARDIOVASCULAR: Regular rate and rhythm without murmurs, gallops, or rubs. RESPIRATORY: Clear to auscultation. Breath sounds equal bilaterally. No wheezes , rales, or rhonchi. GASTROINTESTINAL: Abdomen soft, mild diffuse tenderness, mildly distended. No hepato-splenomegaly, or palpable masses. No guarding. MUSCULOSKELETAL: Left BKA wound vac in place. Very tender to palpation. NEUROLOGICAL: Awake and alert. Normal speech. Procedures Left stump debridement by Dr. Hill on 06/15/16 Medications and IVs Current Medications Medications (Trade) Dose Ordered Sig/Shira Route Start Time Stop Time Status Last Admin (NS Flush) 2 ml BID IV FLUSH 06/14/16 21:00 07/05/16 21:01 (NS Flush) 2 ml UNSCH PRN IV FLUSH 06/14/16 17:00 06/29/16 01:24 (Cardizem Cd) 120 mg DAILY PO 06/15/16 09:00 07/05/16 08:53 (Xanax) 0.125 mg Q6H PRN PO 06/14/16 17:45 07/02/16 20:54 (Rocaltrol) 0.25 mcg DAILY PO 06/15/16 09:00 07/05/16 08:53 (CeleXA) 40 mg DAILY PO 06/15/16 09:00 07/05/16 08:53 (Ferrous Sulfate) 325 mg DAILY PO 06/15/16 09:00 07/05/16 08:53 (Neurontin) 100 mg HS PO 06/14/16 21:00 07/05/16 21:02 (Lactinex) 1 tab TID PO 06/14/16 18:00 07/05/16 17:01 (Imodium) 2 mg Q6H PRN PO 06/14/16 17:45 Hold 07/04/16 17:14 (Oscal-D 250-125) 500 mg BID PO 06/14/16 21:00 07/05/16 21:02 (Protonix) 20 mg BID PO 06/14/16 21:00 07/05/16 21:02 (Zofran Odt) 8 mg Q6H PRN PO 06/14/16 18:15 07/05/16 10:19 (Pill Splitter) 1 ea UNSCH PRN OTHER 06/14/16 18:00 (Theragran) 1 tab DAILY PO 06/15/16 12:00 Hold 06/20/16 15:16 (Dilaudid Pf Inj) 1 mg Q4H PRN IV PUSH 06/15/16 14:30 07/05/16 15:15 (Mycostatin Cream) 1 applic Q12HR TOPICAL 06/19/16 15:00 07/05/16 21:03 (Heparin Central Flush) 500 units UNSCH IVF 06/20/16 11:30 06/24/16 05:25 (NS Flush) 5 ml UNSCH PRN IVF 06/20/16 11:30 (Heparin Central Flush) 250 units UNSCH PRN IVF 06/20/16 11:30 Rivaroxaban 20 mg 20 mg DAILY PO 06/21/16 09:00 07/05/16 08:54 Multivitamins 10 ml/Folic Acid 1 mg/Amino Acid Electrolyte w/ Calc 1,010.2 ml @ 42 mls/hr Q24H IV-CENTRAL 06/20/16 20:00 07/05/16 20:52 (Liposyn Iii 20% Inj) 250 ml @ 31.25 mls/ hr Q24H IV-CENTRAL 06/20/16 20:00 07/05/16 20:52 (Percocet 10-325 Mg) 1 tab Q4H PRN PO 06/22/16 19:15 07/05/16 21:03 (Percocet 5-325 Mg) 1 tab Q3H PRN PO 07/01/16 20:00 A/P Problem List: (1) Infection of amputation stump Status: Acute (2) Enterocutaneous fistula Status: Chronic (3) Hypercoagulable state Status: Chronic (4) HTN (hypertension) Status: Chronic (5) Anxiety about health Status: Chronic (6) Diarrhea Status: Acute (7) Severe protein-calorie malnutrition Status: Acute (8) Decubitus ulcer of sacral region, stage 1 Status: Acute Plan: wound care consult. will order specialty bed. Assessment and Plan The patient is a 70-year-old female with a medical history significant for ischemic bowel with resection and development of chronic enterocutaneous fistula , asthma, depression, COPD, severe peripheral vascular disease status post left BKA. The patient was discharged from the hospital on 06/06/16 to a retirement facility for rehabilitation. The stitches on the left stump were taken out 2 weeks ago. She reports that the wound has been opening up when she participated with physical therapy. She returned due to wound dehiscence and infection. She was admitted by the vascular surgery service, Dr. Hill for debridement. Infected left stump: Patient status post BKA on 05/02/16. - Surgery following. S/P debridement. Wound cultures growing Klebsiella ESBL positive and Morganella. -Patient was followed by ID. She was treated with IV Zerbaxa per ID, Micro with sensitivity testing on Zerbaxa and Avycaz . Antibiotics have since been discontinued. Monitor off antibiotics. - Dilaudid IV for breakthrough pain. Continue Percocet. - Management as per vascular surgery. After next wound vac removal won't need to be applied again. - Medicine will kindly take over and accept patient. Right leg pain: Ultrasound negative for DVT. Soft tissue swelling. Continue PT. Continue pain control with Percocet and dilaudid. Hypercoagulable state: History of ischemic bowel and severe peripheral vascular disease. - Continue Xarelto Anxiety and depression: - Continue Celexa and Xanax. Hypokalemia: Replace and monitor. now resolved and stable. COPD: Breathing treatments as needed. Stable. 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 Check C. difficile PCR in stool and check stool studies. Severe protein-calorie malnutrition As evidenced by albumen of 1.8. Patient currently on TPN and being followed by dietitian. GERD: Continue PPI GI prophylaxis: PPI. Stool softener PRN constipation. DVT PPx: Xarelto Discharge Planning PAtient will need jail TPN as outpatient - CM to help arrange placement Problem Qualifiers (1) HTN (hypertension): Qualified Code: I10 - Essential hypertension (2) Diarrhea: Qualified Code: R19.7 - Diarrhea, unspecified type Jeff Carey MD Jul 05, 2016 23:15
[2016-07-06] MEDS: HYDROmorphone HCL PF 1 MG/ML VIAL IV PUSH PRN ×2 (00:12→11:15)
[2016-07-06 00:36] LABS: AUTOMATED NEUTROPHIL # 3.3 TH/MM3 (1.8-7.7); BASOPHIL % 0.2 % (0.0-2.0); EOSINOPHIL # 0.7 TH/MM3 (0-0.4); EOSINOPHIL % 8.5 % (0.0-4.0); HEMATOCRIT 30.5 % (35.0-46.0); HEMO FLAGS DIFF FINAL; LYMPH % 40.3 % (9.0-44.0); LYMPHOCYTE # 3.1 TH/MM3 (1.0-4.8); MEAN CELL VOLUME 97.6 FL (80.0-100.0); MEAN CORPUSCULAR HEMOGLOBIN 33.3 PG (27.0-34.0); MEAN CORPUSCULAR HGB CONC 34.1 % (32.0-36.0); MONO % 8.8 % (0.0-8.0); NEUT % 42.2 % (16.0-70.0); PLATELET COUNT 530 TH/MM3 (150-450); RED BLOOD COUNT 3.12 MIL/MM3 (4.00-5.30); WHITE BLOOD COUNT 7.7 TH/MM3 (4.0-11.0)
[2016-07-06 00:47] LABS: ALKALINE PHOSPHATASE 70 U/L (45-117); ALT (GPT) 29 U/L (10-53); ANION GAP 5 MEQ/L (5-15); AST (GOT) 45 U/L (15-37); CHLORIDE 105 MEQ/L (98-107); GLOMERULAR FILTRATION RATE 122 ML/MIN (>89); MAGNESIUM 1.4 MG/DL (1.5-2.5); POTASSIUM 3.5 MEQ/L (3.5-5.1); SODIUM (NA) 140 MEQ/L (136-145); TOTAL BILIRUBIN ADULT 0.1 MG/DL (0.2-1.0)
[2016-07-06 00:48] LABS: BLOOD UREA NITROGEN 13 MG/DL (7-18)
[2016-07-06 05:12] VITALS: BP 129/64; PULSE 89; RESP 16; TEMP 98.9; O2SAT 92
[2016-07-06 07:00] LABS: AUTOMATED NEUTROPHIL # 5.2 TH/MM3 (1.8-7.7); BASOPHIL # 0.1 TH/MM3 (0-0.2); BASOPHIL % 1.3 % (0.0-2.0); EOSINOPHIL # 0.7 TH/MM3 (0-0.4); EOSINOPHIL % 7.2 % (0.0-4.0); HEMATOCRIT 31.7 % (35.0-46.0); HEMO FLAGS DIFF FINAL; LYMPH % 29.6 % (9.0-44.0); LYMPHOCYTE # 2.9 TH/MM3 (1.0-4.8); MEAN CELL VOLUME 96.4 FL (80.0-100.0); MEAN CORPUSCULAR HEMOGLOBIN 31.5 PG (27.0-34.0); MEAN CORPUSCULAR HGB CONC 32.6 % (32.0-36.0); MONO % 8.5 % (0.0-8.0); NEUT % 53.4 % (16.0-70.0); PLATELET COUNT 505 TH/MM3 (150-450); RED BLOOD COUNT 3.29 MIL/MM3 (4.00-5.30); RED CELL DISTRIBUTION WIDTH 23.3 % (11.6-17.2); WHITE BLOOD COUNT 9.7 TH/MM3 (4.0-11.0)
[2016-07-06 07:26] LABS: ALT (GPT) 34 U/L (10-53); ANION GAP 6 MEQ/L (5-15); AST (GOT) 66 U/L (15-37); BICARBONATE 29.6 MEQ/L (21.0-32.0); BLOOD UREA NITROGEN 11 MG/DL (7-18); CHLORIDE 108 MEQ/L (98-107); GLOMERULAR FILTRATION RATE 142 ML/MIN (>89); MAGNESIUM 1.5 MG/DL (1.5-2.5); POTASSIUM 3.3 MEQ/L (3.5-5.1); SODIUM (NA) 144 MEQ/L (136-145)
[2016-07-06 07:27] LABS: ALKALINE PHOSPHATASE 80 U/L (45-117); TOTAL BILIRUBIN ADULT LESS THAN 0.1 MG/DL (0.2-1.0)
[2016-07-06 08:00] VITALS: BP 155/75; PULSE 98; RESP 16; TEMP 98.9; O2SAT 93
[2016-07-06] MEDS ORDERED: POTASSIUM CHLORIDE 10 MEQ CONTROLLED RELEASE TAB PO ONE (08:15)
[2016-07-06] MEDS: ONDANSETRON ODT 4 MG TAB PO PRN (08:22)
[2016-07-06] MEDS: SODIUM CHLORIDE 0.9% FLUSH 5 ML FLUSH IV FLUSH SCH ×2 (09:00→21:49)
[2016-07-06] MEDS: NYSTATIN 100,000 UNIT/GM CREAM 15 GM TOPICAL SCH ×2 (09:08→21:50)
--- NOTE | 2016-07-06 09:51 | HHI.PR ---
Subjective Remarks fu for diarrhea, decreased appetite, abdominal pain, malnutrition, infection of amputated stump, htn Patient states that still has decreased appetite Had 11 Bowel movements last night states stool more formed today abdomen less distended denies fevers/chills states feels depressed and is requesting some other medication for depression. Objective Vitals Vital Signs Date Time Temp Pulse Resp B/P Pulse Ox O2 Delivery O2 Flow Rate FiO2 07/06/16 08:00 98.9 98 16 155/75 93 07/06/16 05:12 98.9 89 16 129/64 92 07/05/16 23:35 99.2 87 16 130/59 95 07/05/16 20:00 Room Air 07/05/16 20:00 98.0 84 16 143/67 93 07/05/16 16:14 Room Air 21 07/05/16 16:00 97.4 86 20 131/69 93 07/05/16 12:00 97.9 80 22 146/68 92 I/O 07/05/16 07/05/16 07/05/16 07/06/16 07/06/16 07/06/16 07:00 15:00 23:00 07:00 15:00 23:00 Intake Total 120 ml 240 ml 2885 ml 581 ml Output Total 525 ml 125 ml 250 ml Balance 120 ml -285 ml 2760 ml 331 ml Intake Oral 120 ml 240 ml 240 ml 0 ml TPN/PPN 2645 ml 331 ml Lipid 250 ml Output Urine Total 525 ml 125 ml 250 ml # Voids 5 2 # Bowel Movements 5 4 2 1 Result Diagram: 07/06/16 0603 07/06/16 0603 Imaging Last Impressions Lower Extremity Ultrasound 06/25/16 0000 Signed Impressions: Service Date/Time: Saturday, June 25, 2016 15:56 - CONCLUSION: Negative exam with no evidence of deep venous thrombosis. Soft tissue edema. Mike Leija MD Port Line Insertion 06/20/16 0000 Signed Impressions: Service Date/Time: Monday, June 20, 2016 08:53 - CONCLUSION: Uncomplicated ultrasound and fluoroscopic guided implanted central venous port catheter placement as described in detail above. An 8 Greek Power port was placed. Kevan Salgado Jr., MD Chest X-Ray 06/17/16 0000 Signed Impressions: Service Date/Time: Friday, June 17, 2016 14:12 - CONCLUSION: Right base infiltrate and small effusion. Calixto Woodruff MD Objective Remarks GENERAL: Chronically ill-appearing patient. SKIN: Abdomen with covered dressing C/D/I. Blanchable erythema with satellite lesions in sacral area. CARDIOVASCULAR: Regular rate and rhythm without murmurs, gallops, or rubs. RESPIRATORY: Clear to auscultation. Breath sounds equal bilaterally. No wheezes , rales, or rhonchi. GASTROINTESTINAL: Abdomen soft, mild diffuse tenderness, non distended. No hepato-splenomegaly, or palpable masses. No guarding. MUSCULOSKELETAL: Left BKA wound vac in place. Very tender to palpation. NEUROLOGICAL: Awake and alert. Normal speech. Procedures Left stump debridement by Dr. Hill on 06/15/16 Medications and IVs Current Medications Medications (Trade) Dose Ordered Sig/Shira Route Start Time Stop Time Status Last Admin (NS Flush) 2 ml BID IV FLUSH 06/14/16 21:00 07/05/16 21:01 (NS Flush) 2 ml UNSCH PRN IV FLUSH 06/14/16 17:00 06/29/16 01:24 (Cardizem Cd) 120 mg DAILY PO 06/15/16 09:00 07/05/16 08:53 (Xanax) 0.125 mg Q6H PRN PO 06/14/16 17:45 07/02/16 20:54 (Rocaltrol) 0.25 mcg DAILY PO 06/15/16 09:00 07/05/16 08:53 (CeleXA) 40 mg DAILY PO 06/15/16 09:00 07/05/16 08:53 (Ferrous Sulfate) 325 mg DAILY PO 06/15/16 09:00 07/05/16 08:53 (Neurontin) 100 mg HS PO 06/14/16 21:00 07/05/16 21:02 (Lactinex) 1 tab TID PO 06/14/16 18:00 07/05/16 17:01 (Imodium) 2 mg Q6H PRN PO 06/14/16 17:45 Hold 07/04/16 17:14 (Oscal-D 250-125) 500 mg BID PO 06/14/16 21:00 07/05/16 21:02 (Protonix) 20 mg BID PO 06/14/16 21:00 07/05/16 21:02 (Zofran Odt) 8 mg Q6H PRN PO 06/14/16 18:15 07/06/16 08:22 (Pill Splitter) 1 ea UNSCH PRN OTHER 06/14/16 18:00 (Theragran) 1 tab DAILY PO 06/15/16 12:00 Hold 06/20/16 15:16 (Dilaudid Pf Inj) 1 mg Q4H PRN IV PUSH 06/15/16 14:30 07/06/16 00:12 (Mycostatin Cream) 1 applic Q12HR TOPICAL 06/19/16 15:00 07/06/16 09:08 (Heparin Central Flush) 500 units UNSCH IVF 06/20/16 11:30 06/24/16 05:25 (NS Flush) 5 ml UNSCH PRN IVF 06/20/16 11:30 (Heparin Central Flush) 250 units UNSCH PRN IVF 06/20/16 11:30 Rivaroxaban 20 mg 20 mg DAILY PO 06/21/16 09:00 07/05/16 08:54 Multivitamins 10 ml/Folic Acid 1 mg/Amino Acid Electrolyte w/ Calc 1,010.2 ml @ 42 mls/hr Q24H IV-CENTRAL 06/20/16 20:00 07/05/16 20:52 (Liposyn Iii 20% Inj) 250 ml @ 31.25 mls/ hr Q24H IV-CENTRAL 06/20/16 20:00 07/05/16 20:52 (Percocet 10-325 Mg) 1 tab Q4H PRN PO 06/22/16 19:15 07/05/16 21:03 (Percocet 5-325 Mg) 1 tab Q3H PRN PO 07/01/16 20:00 Urinary Catheter: No A/P Problem List: (1) Infection of amputation stump Status: Resolved (2) Enterocutaneous fistula Status: Chronic (3) Hypercoagulable state Status: Chronic (4) HTN (hypertension) Status: Chronic (5) Anxiety about health Status: Chronic (6) Diarrhea Status: Acute (7) Severe protein-calorie malnutrition Status: Acute (8) Decubitus ulcer of sacral region, stage 1 Status: Acute Assessment and Plan The patient is a 70-year-old female with a medical history significant for ischemic bowel with resection and development of chronic enterocutaneous fistula , asthma, depression, COPD, severe peripheral vascular disease status post left BKA. The patient was discharged from the hospital on 06/06/16 to a shelter facility for rehabilitation. The stitches on the left stump were taken out 2 weeks ago. She reports that the wound has been opening up when she participated with physical therapy. She returned due to wound dehiscence and infection. She was admitted by the vascular surgery service, Dr. Hill for debridement. Infected left stump: Patient status post BKA on 05/02/16. - Surgery following. S/P debridement. Wound cultures growing Klebsiella ESBL positive and Morganella. -Patient was followed by ID. She was treated with IV Zerbaxa per ID, Micro with sensitivity testing on Zerbaxa and Avycaz . Antibiotics have since been discontinued. Monitor off antibiotics. - Dilaudid IV for breakthrough pain. Continue Percocet. - Management as per vascular surgery. After next wound vac removal won't need to be applied again. - Medicine will kindly take over and accept patient. Right leg pain: Ultrasound negative for DVT. Soft tissue swelling. Continue PT. Continue pain control with Percocet and dilaudid. Hypercoagulable state: History of ischemic bowel and severe peripheral vascular disease. - Continue Xarelto Anxiety and depression: - Continue Celexa and Xanax. 07/05 worsening depression. Patient expresses outbursts of crying. Will consult psychiatry for adjustment in medications. Hypokalemia: Replace and monitor. 07/05: K 3.3 today. Potassium low due to Gi loss. Will replete 30 meq of oral potassium chloride. COPD: Breathing treatments as needed. Stable. 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 Check C. difficile PCR in stool and check stool studies 07/05 Stool c diff PCR and stool studies pending. Severe protein-calorie malnutrition As evidenced by albumen of 1.8. Patient currently on TPN and being followed by dietitian. Fungal rash Patient with blanchable erythema in sacral region with satellite lesions observed. Previously described sacral ulcer stage 1 whch it is not. I josep start the patient on antifungal cream. GERD: Continue PPI GI prophylaxis: PPI. Stool softener PRN constipation. DVT PPx: Xarelto Discharge Planning PAtient will need custodial TPN as outpatient - CM to help arrange placement Problem Qualifiers (1) HTN (hypertension): Qualified Code: I10 - Essential hypertension (2) Diarrhea: Qualified Code: R19.7 - Diarrhea, unspecified type Jeff Carey MD Jul 06, 2016 09:51
[2016-07-06] MEDS: DILTIAZEM-CD 120 MG CAP ER PO SCH (09:52)
[2016-07-06] MEDS: CALCITRIOL 0.25 MCG CAP PO SCH (09:52)
[2016-07-06] MEDS: PANTOPRAZOLE SOD 20 MG DELAYED RELEASE TAB PO SCH ×2 (09:52→21:50)
[2016-07-06] MEDS: CITALOPRAM HYDROBROMIDE 40 MG TAB PO SCH (09:52)
[2016-07-06] MEDS: LACTOBACILLUS ACIDOPHILUS TAB PO SCH ×3 (09:52→17:37)
[2016-07-06] MEDS: CALCIUM/VITAMIN D 250 MG/125 U TAB PO SCH ×2 (09:52→21:50)
[2016-07-06] MEDS: RIVAROXABAN 20 MG TAB PO SCH (09:52)
[2016-07-06] MEDS: FERROUS SULFATE 325 MG (65 MG ELEMENTAL IRON) TAB PO SCH (09:52)
[2016-07-06] MEDS: MAGNESIUM SULFATE 1 GM PREMIX 100 ML IV SCH ×2 (10:00→11:15)
[2016-07-06] MEDS: CLOTRIMAZOLE 1% CREAM 15 GM TOPICAL SCH ×3 (10:00→21:51)
[2016-07-06] MEDS: ALPRAZolam 0.25 MG TAB PO PRN (10:05)
[2016-07-06 10:35] LABS: C. DIFF EPI 027 PRESUMPTIVE NEGATIVE (NEGATIVE); C. DIFF TOXIN PCR NEGATIVE (NEGATIVE)
[2016-07-06 12:00] VITALS: BP 157/81; PULSE 100; RESP 16; TEMP 99.2; O2SAT 93
[2016-07-06] MEDS: ACETAMINOPHEN/HYDROcodone 325 MG/5 MG TAB PO PRN ×2 (14:33→21:51)
[2016-07-06 16:00] VITALS: BP 160/85; PULSE 89; RESP 16; TEMP 98.2; O2SAT 93
[2016-07-06 20:05] VITALS: BP 127/62; PULSE 93; RESP 16; TEMP 98.3; O2SAT 93
[2016-07-06] MEDS: FAT EMULSION 20% INJ 250 ML (Daily over 8 hours) IV-CENTRAL SCH (21:49)
[2016-07-06] MEDS: CLINIMIX E 4.25/25 1000 mL- </= 42 mls/hr IV-CENTRAL SCH ×3 (21:49)
[2016-07-06] MEDS: GABAPENTIN 100 MG CAP PO SCH (21:50)
[2016-07-06 23:18] VITALS: BP 134/65; PULSE 98; RESP 16; TEMP 98.5; O2SAT 93
[2016-07-07 04:57] VITALS: BP 138/81; PULSE 100; RESP 16; TEMP 98; O2SAT 93
[2016-07-07] MEDS: CLOTRIMAZOLE 1% CREAM 15 GM TOPICAL SCH ×3 (05:19→20:52)
[2016-07-07 05:21] VITALS: O2SAT 85
[2016-07-07] MEDS: ACETAMINOPHEN/HYDROcodone 325 MG/5 MG TAB PO PRN ×3 (08:26→21:13)
[2016-07-07 08:40] VITALS: BP 160/94; PULSE 93; RESP 20; TEMP 98.2; O2SAT 94
[2016-07-07] MEDS: RIVAROXABAN 20 MG TAB PO SCH (09:12)
[2016-07-07] MEDS: LACTOBACILLUS ACIDOPHILUS TAB PO SCH ×3 (09:12→17:44)
[2016-07-07] MEDS: DILTIAZEM-CD 120 MG CAP ER PO SCH (09:12)
[2016-07-07] MEDS: FERROUS SULFATE 325 MG (65 MG ELEMENTAL IRON) TAB PO SCH (09:12)
[2016-07-07] MEDS: PANTOPRAZOLE SOD 20 MG DELAYED RELEASE TAB PO SCH ×2 (09:12→20:52)
[2016-07-07] MEDS: NYSTATIN 100,000 UNIT/GM CREAM 15 GM TOPICAL SCH ×2 (09:12→20:52)
[2016-07-07] MEDS: CALCIUM/VITAMIN D 250 MG/125 U TAB PO SCH ×2 (09:12→20:52)
[2016-07-07] MEDS: CALCITRIOL 0.25 MCG CAP PO SCH (09:12)
[2016-07-07] MEDS: CITALOPRAM HYDROBROMIDE 40 MG TAB PO SCH (09:12)
[2016-07-07] MEDS: SODIUM CHLORIDE 0.9% FLUSH 5 ML FLUSH IV FLUSH SCH ×2 (09:13→21:01)
--- NOTE | 2016-07-07 10:33 | PD.CONS ---
Provisional Diagnosis Admission Date Jun 14, 2016 at 14:10 [place] I. Depression Scar[place] II. deferred [place] III. Dehiscence of L BKA stump and revision Ischemic bowel resection. Short bowel syndrome. Asthma. Bowel resection. BKA. Mastectomy. Hysterectomy. [place] IV. History of Present Illness Service Psychiatry Consult Requested By Francisca Reason for Consult Depression ; treated but w continued Sx Primary Care Physician Kathy Byrnes MD HPI Called to see this 71 yo WF with depression. Patient has been treated with Celexa, however continues to be symptomatic. Toshia in presently in the hospital for surgical treatment for a dehiscence of her BKA of her L knee stump. It was noted during recovery after surgery that her mood was poor and that she was crying intermittently. Upon questioning Toshia told surgery that she did not think Celexa was effective anymore and she is requesting another medication. Review of Systems ROS Limitations: Uncooperative, Refused Past Family Social History Coded Allergies: Levaquin (Verified Allergy, Severe, Edema, 05/29/16) Penicillin (Unverified Allergy, Intermediate, hives, 03/10/16) Sulfa (Unverified Allergy, Intermediate, hives, 03/10/16) *MDRO Multi-Drug Resistant Organism (Verified Adverse Reaction, Unknown, ) ESBL+Klebsiella (leg-06/15/16) Active Scripts Sertraline Hcl (Zoloft)100 Mg Map011 Mg PO DAILY 30 Days Prov:Dusty Benson MD 07/11/16 Quetiapine Fumarate 25 Mg Tab25 Mg PO DAILY 30 Days Prov:Dusty Benson MD 07/11/16 Nystatin (Nystop)15 Applic/15 Gm Powd1 Applic TOPICAL Q12HR 30 Days Prov:Dusty Benson MD 07/11/16 Hydrocodone/Acetaminophen 10 mg/325 mg (Lortab 10 mg/325 mg)1 Tab1 Tab PO Q6HR PRN (PAIN) #12 TAB Prov:Dusty Benson MD 07/11/16 Clotrimazole (Mycelex 10 mg Trouche)10 Mg Troc10 Mg BUCCAL 5 TIMES A DAY 14 Days stop date 07/25/16 Prov:Dusty Benson MD 07/11/16 Alprazolam (Xanax 0.25 Mg)Alprazolam 0.25 mg Tab0.125 Mg PO Q6H PRN (anxiety) # 12 TAB Prov:Dusty Benson MD 07/11/16 Albuterol/Ipratropium (Resp: Albuterol/Ipratropium 2.5 Mg/0.5 Mg)1 Amp Nebu1 Ampule NEB Q4HR NEB PRN (SOB/WHEEZING) 30 Days Prov:Dusty Benson MD 07/11/16 Acyclovir (Zovirax 5% Cream 5 gm Tube)5 Applic/5 Gm Cr1 Applic TOPICAL 5 TIMES A DAY 10 Days Prov:Dusty Benson MD 07/11/16 Acyclovir 200 mg 200 Mg [id number] Mg PO Q8HR 10 Days stop date 07/21/16 Prov:Dusty Benson MD 07/11/16 Diltiazem CD 120 mg (Cardizem CD 120 mg)120MG/24 Cap1 Cap PO DAILY 30 Days Prov:Jaden Marshall MD 06/06/16 Tetracycline HCl 250 Mg Fht797 Mg PO Q6HR 10 Days Prov:Jaden Marshall MD 06/06/16 Gabapentin 100 Mg Lih154 Mg PO HS 30 Days Prov:Jaden Marshall MD 05/10/16 Citalopram Hydrobromide (Celexa 40 Mg Tab)40 Mg Tab40 Mg PO DAILY 30 Days Prov:Jaden Marshall MD 05/10/16 Alprazolam (Xanax 0.25 Mg)Alprazolam 0.25 mg Tab0.125 Mg PO Q6H PRN (anxiety) # 6 TAB Prov:Jaden Marshall MD 05/10/16 Calcitriol (Rocaltrol)0.25 Mcg Cap0.25 Mcg PO DAILY 30 Days Prov:Jaden Marshall MD 05/10/16 Rivaroxaban (Xarelto 20 Mg Tab)20 Mg Tab20 Mg PO DAILY 30 Days Prov:Jaden Marshall MD 05/10/16 Oxycodone ER (OxyCONTIN ER)10 Mg Tabcr20 Mg PO Q12HR #12 TAB.SR Prov:Jaden Marshall MD 05/10/16 Hydromorphone Hcl (Dilaudid 2 Mg Tab)2 Mg Tab2 Mg PO Q4H PRN (PAIN SCALE 1 TO 5 ) #12 TAB Prov:Jaden Marshall MD 05/10/16 Hydromorphone Hcl (Dilaudid 4 Mg Tab)4 Mg Tab4 Mg PO Q4H PRN (PAIN SCALE 6 TO 10 ) #12 TAB Prov:Jaden Marshall MD 05/10/16 Reported Medications Loperamide Hcl (Loperamide A-D)2 Mg Tab2 Mg PO Q6H PRN (DIARRHEA) 04/29/16 Omeprazole 20 mg 20 Mg Tab20 Mg PO BID 04/29/16 Calcium-Magnesium W/ Vitamin D (Calcium 500) Tab1 Tab PO BID 04/29/16 Lactobacillus Acidophilus (Lactinex)1 Tab Tab1 Tab PO TID 04/29/16 Multiple Vitamins W/ Minerals (Theragran M)1 Tab Tab1 Tab PO DAILY 04/29/16 Ondansetron Hcl (Zofran 8 Mg Tab)8 Mg Tab8 Mg PO Q6HR PRN (NAUSEA OR VOMITING) 04/29/16 Ferrous Sulfate (Feosol)65 Mg [id number] Mg PO DAILY 04/29/16 Current Medications Medications (Trade) Dose Ordered Sig/Shira Route Start Time Stop Time Status Last Admin (NS Flush) 2 ml BID IV FLUSH 06/14/16 21:00 07/07/16 09:13 (NS Flush) 2 ml UNSCH PRN IV FLUSH 06/14/16 17:00 06/29/16 01:24 (Cardizem Cd) 120 mg DAILY PO 06/15/16 09:00 07/07/16 09:12 (Xanax) 0.125 mg Q6H PRN PO 06/14/16 17:45 07/06/16 10:05 (Rocaltrol) 0.25 mcg DAILY PO 06/15/16 09:00 07/07/16 09:12 (CeleXA) 40 mg DAILY PO 06/15/16 09:00 07/07/16 09:12 (Ferrous Sulfate) 325 mg DAILY PO 06/15/16 09:00 07/07/16 09:12 (Neurontin) 100 mg HS PO 06/14/16 21:00 07/06/16 21:50 (Lactinex) 1 tab TID PO 06/14/16 18:00 07/07/16 09:12 (Imodium) 2 mg Q6H PRN PO 06/14/16 17:45 Hold 07/04/16 17:14 (Oscal-D 250-125) 500 mg BID PO 06/14/16 21:00 07/07/16 09:12 (Protonix) 20 mg BID PO 06/14/16 21:00 07/07/16 09:12 (Zofran Odt) 8 mg Q6H PRN PO 06/14/16 18:15 07/06/16 08:22 (Pill Splitter) 1 ea UNSCH PRN OTHER 06/14/16 18:00 (Theragran) 1 tab DAILY PO 06/15/16 12:00 Hold 06/20/16 15:16 (Dilaudid Pf Inj) 1 mg Q4H PRN IV PUSH 06/15/16 14:30 07/06/16 11:15 (Mycostatin Cream) 1 applic Q12HR TOPICAL 06/19/16 15:00 07/07/16 09:12 (Heparin Central Flush) 500 units UNSCH IVF 06/20/16 11:30 06/24/16 05:25 (NS Flush) 5 ml UNSCH PRN IVF 06/20/16 11:30 (Heparin Central Flush) 250 units UNSCH PRN IVF 06/20/16 11:30 Rivaroxaban 20 mg 20 mg DAILY PO 06/21/16 09:00 07/07/16 09:12 Multivitamins 10 ml/Folic Acid 1 mg/Amino Acid Electrolyte w/ Calc 1,010.2 ml @ 42 mls/hr Q24H IV-CENTRAL 06/20/16 20:00 07/06/16 21:49 (Liposyn Iii 20% Inj) 250 ml @ 31.25 mls/ hr Q24H IV-CENTRAL 06/20/16 20:00 07/06/16 21:49 (Lotrimin 1% Cream) 1 applic Q8HR TOPICAL 07/06/16 10:00 07/07/16 05:19 (Matthews 5-325 Mg) 1 tab Q4H PRN PO 07/06/16 11:15 (Matthews 5-325 Mg) 2 tab Q4H PRN PO 07/06/16 11:15 07/07/16 08:26 Physical Exam see medicine notes Vital Signs Vital Signs Date Time Temp Pulse Resp B/P Pulse Ox O2 Delivery O2 Flow Rate FiO2 9/16/16 09:10 Room Air 07/07/16 08:40 98.2 93 20 160/94 94 07/07/16 05:21 21 I/O 07/06/16 07/06/16 07/06/16 07:59 15:59 23:59 Intake Total 581 ml 240 ml 240 ml Output Total 250 ml 100 ml 125 ml Balance 331 ml 140 ml 115 ml Assessment & Plan Estimated LOS: days Dinah Diaz MD Jul 07, 2016 10:33
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
[2016-07-07 12:02] VITALS: BP 144/68; PULSE 88; RESP 19; TEMP 97.3; O2SAT 93
[2016-07-07 16:07] VITALS: BP 149/62; PULSE 88; RESP 19; TEMP 97.6; O2SAT 94
--- NOTE | 2016-07-07 16:23 | HHI.PR ---
Subjective Remarks fu for diarrhea, decreased appetite, abdominal pain, malnutrition, infection of amputated stump, htn, depression Patient denies cp/sob Bowel movements are more formed but still present denies abdominal pain c/o productive cough (yellow sputum) denies fever/chills Objective Vitals Vital Signs Date Time Temp Pulse Resp B/P Pulse Ox O2 Delivery O2 Flow Rate FiO2 07/07/16 16:07 97.6 88 19 149/62 94 07/07/16 12:02 97.3 88 19 144/68 93 07/07/16 09:10 Room Air 07/07/16 08:40 98.2 93 20 160/94 94 07/07/16 05:21 85 21 07/07/16 04:57 98.0 100 16 138/81 93 07/06/16 23:18 98.5 98 16 134/65 93 07/06/16 21:50 Room Air 07/06/16 20:05 98.3 93 16 127/62 93 I/O 07/06/16 07/06/16 07/06/16 07/07/16 07/07/16 07/07/16 07:00 15:00 23:00 07:00 15:00 23:00 Intake Total 581 ml 240 ml 240 ml 0 ml 240 ml Output Total 250 ml 100 ml 125 ml 600 ml Balance 331 ml 140 ml 115 ml 0 ml -360 ml Intake Oral 0 ml 240 ml 240 ml 0 ml 240 ml TPN/PPN 331 ml Lipid 250 ml Output Urine Total 250 ml 100 ml 125 ml 600 ml # Voids 2 1 # Bowel Movements 1 2 0 1 1 Result Diagram: 07/06/16 0603 07/06/16 0603 Imaging Last Impressions Lower Extremity Ultrasound 06/25/16 0000 Signed Impressions: Service Date/Time: Saturday, June 25, 2016 15:56 - CONCLUSION: Negative exam with no evidence of deep venous thrombosis. Soft tissue edema. Mike Leija MD Port Line Insertion 06/20/16 0000 Signed Impressions: Service Date/Time: Monday, June 20, 2016 08:53 - CONCLUSION: Uncomplicated ultrasound and fluoroscopic guided implanted central venous port catheter placement as described in detail above. An 8 [place] Power port was placed. Kevan Salgado Jr., MD Chest X-Ray 06/17/16 0000 Signed Impressions: Service Date/Time: Friday, June 17, 2016 14:12 - CONCLUSION: Right base infiltrate and small effusion. Calixto Woodruff MD Objective Remarks GENERAL: Chronically ill-appearing patient. SKIN: Abdomen with covered dressing C/D/I. Blanchable erythema with satellite lesions in sacral area. CARDIOVASCULAR: Regular rate and rhythm without murmurs, gallops, or rubs. RESPIRATORY: Clear to auscultation. Breath sounds equal bilaterally. No wheezes , rales, or rhonchi. GASTROINTESTINAL: Abdomen soft, mild diffuse tenderness, non distended. No hepato-splenomegaly, or palpable masses. No guarding. MUSCULOSKELETAL: Left BKA wound vac in place. Very tender to palpation. NEUROLOGICAL: Awake and alert. Normal speech. Procedures Left stump debridement by Dr. Hill on 06/15/16 Medications and IVs Current Medications Medications (Trade) Dose Ordered Sig/Shira Route Start Time Stop Time Status Last Admin (NS Flush) 2 ml BID IV FLUSH 06/14/16 21:00 07/07/16 09:13 (NS Flush) 2 ml UNSCH PRN IV FLUSH 06/14/16 17:00 06/29/16 01:24 (Cardizem Cd) 120 mg DAILY PO 06/15/16 09:00 07/07/16 09:12 (Xanax) 0.125 mg Q6H PRN PO 06/14/16 17:45 07/06/16 10:05 (Rocaltrol) 0.25 mcg DAILY PO 06/15/16 09:00 07/07/16 09:12 (Ferrous Sulfate) 325 mg DAILY PO 06/15/16 09:00 07/07/16 09:12 (Neurontin) 100 mg HS PO 06/14/16 21:00 07/06/16 21:50 (Lactinex) 1 tab TID PO 06/14/16 18:00 07/07/16 13:31 (Imodium) 2 mg Q6H PRN PO 06/14/16 17:45 Hold 07/04/16 17:14 (Oscal-D 250-125) 500 mg BID PO 06/14/16 21:00 07/07/16 09:12 (Protonix) 20 mg BID PO 06/14/16 21:00 07/07/16 09:12 (Zofran Odt) 8 mg Q6H PRN PO 06/14/16 18:15 07/06/16 08:22 (Pill Splitter) 1 ea UNSCH PRN OTHER 06/14/16 18:00 (Theragran) 1 tab DAILY PO 06/15/16 12:00 Hold 06/20/16 15:16 (Dilaudid Pf Inj) 1 mg Q4H PRN IV PUSH 06/15/16 14:30 07/06/16 11:15 (Mycostatin Cream) 1 applic Q12HR TOPICAL 06/19/16 15:00 07/07/16 09:12 (Heparin Central Flush) 500 units UNSCH IVF 06/20/16 11:30 06/24/16 05:25 (NS Flush) 5 ml UNSCH PRN IVF 06/20/16 11:30 (Heparin Central Flush) 250 units UNSCH PRN IVF 06/20/16 11:30 Rivaroxaban 20 mg 20 mg DAILY PO 06/21/16 09:00 07/07/16 09:12 Multivitamins 10 ml/Folic Acid 1 mg/Amino Acid Electrolyte w/ Calc 1,010.2 ml @ 42 mls/hr Q24H IV-CENTRAL 06/20/16 20:00 07/06/16 21:49 (Liposyn Iii 20% Inj) 250 ml @ 31.25 mls/ hr Q24H IV-CENTRAL 06/20/16 20:00 07/06/16 21:49 (Lotrimin 1% Cream) 1 applic Q8HR TOPICAL 07/06/16 10:00 07/07/16 13:31 ([place] 5-325 Mg) 1 tab Q4H PRN PO 07/06/16 11:15 ([place] 5-325 Mg) 2 tab Q4H PRN PO 07/06/16 11:15 07/07/16 13:48 (Zoloft) 100 mg DAILY PO 07/08/16 09:00 (SEROquel) 25 mg DAILY PO 07/08/16 21:00 Urinary Catheter: No Vascular Central Line Catheter: No A/P Problem List: (1) Infection of amputation stump Status: Resolved (2) Enterocutaneous fistula Status: Chronic (3) Hypercoagulable state Status: Chronic (4) HTN (hypertension) Status: Chronic (5) Anxiety about health Status: Chronic (6) Diarrhea Status: Acute (7) Severe protein-calorie malnutrition Status: Acute (8) Fungal skin infection Status: Acute Assessment and Plan The patient is a 70-year-old female with a medical history significant for ischemic bowel with resection and development of chronic enterocutaneous fistula , asthma, depression, COPD, severe peripheral vascular disease status post left BKA. The patient was discharged from the hospital on 06/06/16 to a halfway facility for rehabilitation. The stitches on the left stump were taken out 2 weeks ago. She reports that the wound has been opening up when she participated with physical therapy. She returned due to wound dehiscence and infection. She was admitted by the vascular surgery service, Dr. Hill for debridement. Infected left stump: Patient status post BKA on 05/02/16. - Surgery following. S/P debridement. Wound cultures growing Klebsiella ESBL positive and Morganella. -Patient was followed by ID. She was treated with IV Zerbaxa per ID, Micro with sensitivity testing on Zerbaxa and Avycaz . Antibiotics have since been discontinued. Monitor off antibiotics. - Dilaudid IV for breakthrough pain. Continue Percocet. - Management as per vascular surgery. After next wound vac removal won't need to be applied again. - Medicine will kindly take over and accept patient. Right leg pain: Ultrasound negative for DVT. Soft tissue swelling. Continue PT. Continue pain control with Percocet and dilaudid. Hypercoagulable state: History of ischemic bowel and severe peripheral vascular disease. - Continue Xarelto Anxiety and depression: - Continue Celexa and Xanax. 07/05 worsening depression. Patient expresses outbursts of crying. Will consult psychiatry for adjustment in medications. 07/07 appreciate psych recommendations and input. Patient started on Seroquel and Zoloft. Hypokalemia: Replace and monitor. 07/05: K 3.3 today. Potassium low due to Gi loss. Will replete 30 meq of oral potassium chloride. 07/07: fu BMP, labs ordered and pending. COPD: Breathing treatments as needed. Stable. 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 Check C. difficile PCR in stool and check stool studies 07/05 Stool c diff PCR and stool studies pending. Severe protein-calorie malnutrition As evidenced by albumen of 1.8. Patient currently on TPN and being followed by dietitian. Fungal rash Patient with blanchable erythema in sacral region with satellite lesions observed. Previously described sacral ulcer stage 1 whch it is not. Continue antifungal cream. GERD: Continue PPI GI prophylaxis: PPI. Stool softener PRN constipation. DVT PPx: Xarelto Discharge Planning PAtient will need skilled nursing TPN as outpatient - to help arrange placement Problem Qualifiers (1) HTN (hypertension): Qualified Code: I10 - Essential hypertension (2) Diarrhea: Qualified Code: R19.7 - Diarrhea, unspecified type Jeff Carey MD Jul 07, 2016 16:23
[2016-07-07 18:43] LABS: ANION GAP 5 MEQ/L (5-15); AST (GOT) 46 U/L (15-37); BICARBONATE 29.6 MEQ/L (21.0-32.0); BLOOD UREA NITROGEN 12 MG/DL (7-18); CHLORIDE 107 MEQ/L (98-107); GLOMERULAR FILTRATION RATE 145 ML/MIN (>89); MAGNESIUM 1.6 MG/DL (1.5-2.5); POTASSIUM 3.4 MEQ/L (3.5-5.1); SODIUM (NA) 142 MEQ/L (136-145)
[2016-07-07 18:59] LABS: ALKALINE PHOSPHATASE 63 U/L (45-117); ALT (GPT) 29 U/L (10-53); TOTAL BILIRUBIN ADULT 0.2 MG/DL (0.2-1.0)
[2016-07-07 20:00] VITALS: BP 140/72; PULSE 97; RESP 16; TEMP 99.2; O2SAT 95
[2016-07-07] MEDS: GABAPENTIN 100 MG CAP PO SCH (20:51)
[2016-07-07] MEDS: CLINIMIX E 4.25/25 1000 mL- </= 42 mls/hr IV-CENTRAL SCH ×3 (20:51)
[2016-07-07] MEDS: FAT EMULSION 20% INJ 250 ML (Daily over 8 hours) IV-CENTRAL SCH (20:51)
[2016-07-07] MEDS: HYDROmorphone HCL PF 1 MG/ML VIAL IV PUSH PRN (22:28)
[2016-07-07] MEDS: SODIUM CHLORIDE 0.9% FLUSH 5 ML FLUSH IV FLUSH PRN (22:29)
[2016-07-08] VITALS: BP 138/76; PULSE 96; RESP 16; TEMP 98.6; O2SAT 94
[2016-07-08] MEDS: HYDROmorphone HCL PF 1 MG/ML VIAL IV PUSH PRN ×3 (03:31→14:00)
[2016-07-08] MEDS: SODIUM CHLORIDE 0.9% FLUSH 5 ML FLUSH IV FLUSH PRN (03:31)
[2016-07-08] MEDS: CLOTRIMAZOLE 1% CREAM 15 GM TOPICAL SCH ×3 (03:32→20:27)
[2016-07-08 04:45] VITALS: BP 147/74; PULSE 99; RESP 16; TEMP 98.5; O2SAT 94
[2016-07-08 08:04] VITALS: BP 159/73; PULSE 100; RESP 18; TEMP 99.9; O2SAT 95
[2016-07-08 08:35] LABS: ALT (GPT) 31 U/L (10-53); ANION GAP 6 MEQ/L (5-15); AST (GOT) 58 U/L (15-37); BICARBONATE 27.8 MEQ/L (21.0-32.0); BLOOD UREA NITROGEN 11 MG/DL (7-18); CHLORIDE 107 MEQ/L (98-107); GLOMERULAR FILTRATION RATE 162 ML/MIN (>89); MAGNESIUM 1.6 MG/DL (1.5-2.5); POTASSIUM 3.2 MEQ/L (3.5-5.1); SODIUM (NA) 141 MEQ/L (136-145)
[2016-07-08 08:38] LABS: ALKALINE PHOSPHATASE 70 U/L (45-117); TOTAL BILIRUBIN ADULT 0.2 MG/DL (0.2-1.0)
[2016-07-08] MEDS: SERTRALINE HCL 100 MG TAB PO SCH ×2 (09:00→09:30)
[2016-07-08] MEDS: FERROUS SULFATE 325 MG (65 MG ELEMENTAL IRON) TAB PO SCH (09:30)
[2016-07-08] MEDS: DILTIAZEM-CD 120 MG CAP ER PO SCH (09:30)
[2016-07-08] MEDS: CALCITRIOL 0.25 MCG CAP PO SCH (09:30)
[2016-07-08] MEDS: RIVAROXABAN 20 MG TAB PO SCH (09:30)
[2016-07-08] MEDS: PANTOPRAZOLE SOD 20 MG DELAYED RELEASE TAB PO SCH ×2 (09:30→20:26)
[2016-07-08] MEDS: LACTOBACILLUS ACIDOPHILUS TAB PO SCH ×3 (09:30→17:25)
[2016-07-08] MEDS: CALCIUM/VITAMIN D 250 MG/125 U TAB PO SCH ×2 (09:30→20:26)
[2016-07-08] MEDS: SODIUM CHLORIDE 0.9% FLUSH 5 ML FLUSH IV FLUSH SCH ×2 (09:31→20:27)
[2016-07-08] MEDS: NYSTATIN 100,000 UNIT/GM CREAM 15 GM TOPICAL SCH ×2 (09:34→21:30)
[2016-07-08 12:24] VITALS: BP 165/78; PULSE 94; RESP 17; TEMP 99.3; O2SAT 93
[2016-07-08] MEDS: ONDANSETRON ODT 4 MG TAB PO PRN (12:37)
[2016-07-08] MEDS ORDERED: POTASSIUM CHLORIDE 10 MEQ CONTROLLED RELEASE TAB PO ONE (15:00)
[2016-07-08] MEDS: MAGNESIUM SULFATE 1 GM PREMIX 100 ML IV SCH ×2 (16:00→16:15)
[2016-07-08 16:01] VITALS: BP 146/70; PULSE 87; RESP 18; TEMP 99.3; O2SAT 92
--- NOTE | 2016-07-08 16:12 | HHI.PR ---
Subjective Remarks Patient had low grade temp w a T max 99.9 this am denies abdominal pain/nausea or vomiting denies chills denies cp/sob (+) cough low potassium Objective Vitals Vital Signs Date Time Temp Pulse Resp B/P Pulse Ox O2 Delivery O2 Flow Rate FiO2 07/08/16 12:24 99.3 94 17 165/78 93 07/08/16 09:00 99 Nasal Cannula 2.00 07/08/16 08:04 99.9 100 18 159/73 95 07/08/16 04:45 98.5 99 16 147/74 94 07/08/16 00:00 98.6 96 16 138/76 94 07/07/16 21:22 Room Air 07/07/16 20:00 99.2 97 16 140/72 95 07/07/16 16:07 97.6 88 19 149/62 94 I/O 07/07/16 07/07/16 07/07/16 07/08/16 07/08/16 07/08/16 07:00 15:00 23:00 07:00 15:00 23:00 Intake Total 0 ml 240 ml 360 ml 0 ml Output Total 600 ml Balance 0 ml -360 ml 360 ml 0 ml Intake Oral 0 ml 240 ml 360 ml 0 ml Output Urine Total 600 ml # Voids 1 1 2 # Bowel Movements 1 1 1 1 Result Diagram: 07/06/16 0603 07/08/16 0745 Imaging Last Impressions Lower Extremity Ultrasound 06/25/16 0000 Signed Impressions: Service Date/Time: Saturday, June 25, 2016 15:56 - CONCLUSION: Negative exam with no evidence of deep venous thrombosis. Soft tissue edema. Mike Leija MD Port Line Insertion 06/20/16 0000 Signed Impressions: Service Date/Time: Monday, June 20, 2016 08:53 - CONCLUSION: Uncomplicated ultrasound and fluoroscopic guided implanted central venous port catheter placement as described in detail above. An 8 [place] Power port was placed. Kevan Salgado Jr., MD Chest X-Ray 06/17/16 0000 Signed Impressions: Service Date/Time: Friday, June 17, 2016 14:12 - CONCLUSION: Right base infiltrate and small effusion. Calixto Woodruff MD Objective Remarks GENERAL: Chronically ill-appearing patient. SKIN: Abdomen with covered dressing C/D/I. Blanchable erythema with satellite lesions in sacral area. CARDIOVASCULAR: Regular rate and rhythm without murmurs, gallops, or rubs. RESPIRATORY: Clear to auscultation. Breath sounds equal bilaterally. No wheezes , rales, or rhonchi. ? broncial sounds on right lower lung field. GASTROINTESTINAL: Abdomen soft, non tender, non distended. No hepato- splenomegaly, or palpable masses. No guarding. MUSCULOSKELETAL: Left BKA wound vac in place. Very tender to palpation. NEUROLOGICAL: Awake and alert. Normal speech. Procedures Left stump debridement by Dr. Hill on 06/15/16 Medications and IVs Current Medications Medications (Trade) Dose Ordered Sig/Shira Route Start Time Stop Time Status Last Admin (NS Flush) 2 ml BID IV FLUSH 06/14/16 21:00 07/08/16 09:31 (NS Flush) 2 ml UNSCH PRN IV FLUSH 06/14/16 17:00 07/08/16 03:31 (Cardizem Cd) 120 mg DAILY PO 06/15/16 09:00 07/08/16 09:30 (Xanax) 0.125 mg Q6H PRN PO 06/14/16 17:45 07/06/16 10:05 (Rocaltrol) 0.25 mcg DAILY PO 06/15/16 09:00 07/08/16 09:30 (Ferrous Sulfate) 325 mg DAILY PO 06/15/16 09:00 07/08/16 09:30 (Neurontin) 100 mg HS PO 06/14/16 21:00 07/07/16 20:51 (Lactinex) 1 tab TID PO 06/14/16 18:00 07/08/16 09:30 (Imodium) 2 mg Q6H PRN PO 06/14/16 17:45 Hold 07/04/16 17:14 (Oscal-D 250-125) 500 mg BID PO 06/14/16 21:00 07/08/16 09:30 (Protonix) 20 mg BID PO 06/14/16 21:00 07/08/16 09:30 (Zofran Odt) 8 mg Q6H PRN PO 06/14/16 18:15 07/08/16 12:37 (Pill Splitter) 1 ea UNSCH PRN OTHER 06/14/16 18:00 (Theragran) 1 tab DAILY PO 06/15/16 12:00 Hold 06/20/16 15:16 (Dilaudid Pf Inj) 1 mg Q4H PRN IV PUSH 06/15/16 14:30 07/08/16 14:00 (Mycostatin Cream) 1 applic Q12HR TOPICAL 06/19/16 15:00 07/08/16 09:34 (Heparin Central Flush) 500 units UNSCH IVF 06/20/16 11:30 06/24/16 05:25 (NS Flush) 5 ml UNSCH PRN IVF 06/20/16 11:30 (Heparin Central Flush) 250 units UNSCH PRN IVF 06/20/16 11:30 Rivaroxaban 20 mg 20 mg DAILY PO 06/21/16 09:00 07/08/16 09:30 Multivitamins 10 ml/Folic Acid 1 mg/Amino Acid Electrolyte w/ Calc 1,010.2 ml @ 42 mls/hr Q24H IV-CENTRAL 06/20/16 20:00 07/07/16 20:51 (Liposyn Iii 20% Inj) 250 ml @ 31.25 mls/ hr Q24H IV-CENTRAL 06/20/16 20:00 07/07/16 20:51 (Lotrimin 1% Cream) 1 applic Q8HR TOPICAL 07/06/16 10:00 07/08/16 09:30 ([place] 5-325 Mg) 1 tab Q4H PRN PO 07/06/16 11:15 ([place] 5-325 Mg) 2 tab Q4H PRN PO 07/06/16 11:15 07/07/16 21:13 (Zoloft) 100 mg DAILY PO 07/08/16 09:00 Quetiapine Fumarate 25 mg 25 mg DAILY PO 07/08/16 21:00 (Magnesium Sulfate 1 Gm Premix) 100 ml @ 100 mls/hr Q1H IV 07/08/16 15:15 07/08/16 17:14 Urinary Catheter: No Vascular Central Line Catheter: No A/P Problem List: (1) Infection of amputation stump Status: Resolved (2) Enterocutaneous fistula Status: Chronic (3) Hypercoagulable state Status: Chronic (4) HTN (hypertension) Status: Chronic (5) Anxiety about health Status: Chronic (6) Diarrhea Status: Acute (7) Severe protein-calorie malnutrition Status: Acute (8) Fungal skin infection Status: Acute Assessment and Plan The patient is a 70-year-old female with a medical history significant for ischemic bowel with resection and development of chronic enterocutaneous fistula , asthma, depression, COPD, severe peripheral vascular disease status post left BKA. The patient was discharged from the hospital on 06/06/16 to a residential facility for rehabilitation. The stitches on the left stump were taken out 2 weeks ago. She reports that the wound has been opening up when she participated with physical therapy. She returned due to wound dehiscence and infection. She was admitted by the vascular surgery service, Dr. Hill for debridement. Infected left stump: Patient status post BKA on 05/02/16. - Surgery following. S/P debridement. Wound cultures growing Klebsiella ESBL positive and Morganella. -Patient was followed by ID. She was treated with IV Zerbaxa per [facility] with sensitivity testing on Zerbaxa and Avycaz . Antibiotics have since been discontinued. Monitor off antibiotics. - Dilaudid IV for breakthrough pain. Continue Percocet. - Management as per vascular surgery. After next wound vac removal won't need to be applied again. - Medicine will kindly take over and accept patient. Right leg pain: Ultrasound negative for DVT. Soft tissue swelling. Continue PT. Continue pain control with Percocet and dilaudid. Hypercoagulable state: History of ischemic bowel and severe peripheral vascular disease. - Continue Xarelto Anxiety and depression: - Continue Celexa and Xanax. 07/05 worsening depression. Patient expresses outbursts of crying. Will consult psychiatry for adjustment in medications. 07/07 appreciate psych recommendations and input. Patient started on Seroquel and Zoloft. Hypokalemia: Replace and monitor. 07/05: K 3.3 today. Potassium low due to Gi loss. Will replete 30 meq of oral potassium chloride. 07/07: fu BMP, labs ordered and pending. 07/08 Potassium 3.2. Replete and monitor. COPD: Breathing treatments as needed. Stable. 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 C diff negative. Stool studies showed no WBC's and culture is pending. resume Imodium as needed. Severe protein-calorie malnutrition As evidenced by albumen of 1.8. Patient currently on TPN and being followed by dietitian. Fungal rash Patient with blanchable erythema in sacral region with satellite lesions observed. Previously described sacral ulcer stage 1 whch it is not. Continue antifungal cream. GERD: Continue PPI Fever Unknow etiology. Check CXR, UA, blood cultures. GI prophylaxis: PPI. Stool softener PRN constipation. DVT PPx: Xarelto Discharge Planning PAtient will need prison TPN as outpatient - to help arrange placement Problem Qualifiers (1) HTN (hypertension): Qualified Code: I10 - Essential hypertension (2) Diarrhea: Qualified Code: R19.7 - Diarrhea, unspecified type Jeff Carey MD Jul 08, 2016 16:12
[2016-07-08] MEDS: ACETAMINOPHEN/HYDROcodone 325 MG/5 MG TAB PO PRN ×2 (17:00→20:26)
--- NOTE | 2016-07-08 17:11 | RADRPT ---
EXAM DATE/TIME: 07/08/2016 16:26 [facility] COMPARISON: CHEST SINGLE AP, June 17, 2016, 14:12. INDICATIONS : Evaluate lung status. MEDICAL HISTORY : Chronic obstructive pulmonary disease. Asthma. SURGICAL HISTORY : Port placement. ENCOUNTER: Initial ACUITY: 4 - 6 days PAIN SCORE: 0/10 LOCATION: Bilateral chest FINDINGS: AP and lateral views of the chest. Left-sided [id number] in place. Tip of the catheter is at the d istal SVC. Chronic right lung base opacity and right-sided clips unchanged. Lungs otherwise clear. No evidence of pneumothorax or pleural effusion. CONCLUSION: Chronic right lung base opacity unchanged. No new pulmonary opacity. Alexandru Lynch MD on July 08, 2016 at 17:06 Board Certified Radiologist. This report was verified electronically.
[2016-07-08 18:31] LABS: BACTERIA, URINE RARE /hpf; BLOOD, URINE NEG (NEG); CALCIUM OXALATE CRYSTALS,URINE OCC /hpf; COMMENT (UR) CULT NOT INDICATED; CULTURE IF INDICATED CULT NOT INDICATED; GLUCOSE,URINE NEG (NEG); KETONE, URINE NEG (NEG); MUCUS URINE FEW /lpf (OCC); NITRITE,URINE NEG (NEG); SQUAMOUS EPITHELIAL CELL URINE 1 /hpf (0-5); URINE COLOR YELLOW (YELLW/STRAW)
[2016-07-08 19:52] VITALS: BP 159/70; PULSE 85; RESP 16; TEMP 96.4; O2SAT 95
[2016-07-08] MEDS: GABAPENTIN 100 MG CAP PO SCH (20:24)
[2016-07-08] MEDS: ALPRAZolam 0.25 MG TAB PO PRN (20:26)
[2016-07-08] MEDS: CLINIMIX E 4.25/25 1000 mL- </= 42 mls/hr IV-CENTRAL SCH ×3 (20:44)
[2016-07-08] MEDS: QUEtiapine FUMARATE 25 MG TAB PO SCH (20:44)
[2016-07-08] MEDS: FAT EMULSION 20% INJ 250 ML (Daily over 8 hours) IV-CENTRAL SCH (21:30)
[2016-07-09 00:42] VITALS: BP 122/64; PULSE 90; RESP 16; TEMP 96.5; O2SAT 93
[2016-07-09 04:18] VITALS: BP 150/66; PULSE 95; RESP 16; TEMP 97.2; O2SAT 93
[2016-07-09] MEDS: CLOTRIMAZOLE 1% CREAM 15 GM TOPICAL SCH ×3 (06:05→21:27)
[2016-07-09 07:39] LABS: AUTOMATED NEUTROPHIL # 4.2 TH/MM3 (1.8-7.7); BASOPHIL # 0.1 TH/MM3 (0-0.2); BASOPHIL % 1.1 % (0.0-2.0); EOSINOPHIL # 0.6 TH/MM3 (0-0.4); EOSINOPHIL % 8.9 % (0.0-4.0); HEMATOCRIT 32.5 % (35.0-46.0); HEMO FLAGS DIFF FINAL; LYMPH % 24.7 % (9.0-44.0); LYMPHOCYTE # 1.7 TH/MM3 (1.0-4.8); MEAN CELL VOLUME 95.4 FL (80.0-100.0); MEAN CORPUSCULAR HEMOGLOBIN 31.8 PG (27.0-34.0); MEAN CORPUSCULAR HGB CONC 33.3 % (32.0-36.0); NEUT % 59.3 % (16.0-70.0); PLATELET COUNT 482 TH/MM3 (150-450); RED BLOOD COUNT 3.41 MIL/MM3 (4.00-5.30); RED CELL DISTRIBUTION WIDTH 21.7 % (11.6-17.2)
[2016-07-09 07:53] LABS: ALKALINE PHOSPHATASE 56 U/L (45-117); ALT (GPT) 30 U/L (10-53); ANION GAP 6 MEQ/L (5-15); AST (GOT) 42 U/L (15-37); BICARBONATE 30.5 MEQ/L (21.0-32.0); BLOOD UREA NITROGEN 10 MG/DL (7-18); CHLORIDE 104 MEQ/L (98-107); GLOMERULAR FILTRATION RATE 128 ML/MIN (>89); MAGNESIUM 1.9 MG/DL (1.5-2.5); POTASSIUM 3.3 MEQ/L (3.5-5.1); SODIUM (NA) 140 MEQ/L (136-145); TOTAL BILIRUBIN ADULT 0.2 MG/DL (0.2-1.0)
[2016-07-09 08:00] VITALS: BP 145/73; PULSE 97; RESP 20; TEMP 100; O2SAT 94
[2016-07-09] MEDS: CALCITRIOL 0.25 MCG CAP PO SCH (09:00)
[2016-07-09] MEDS: PANTOPRAZOLE SOD 20 MG DELAYED RELEASE TAB PO SCH ×2 (09:00→21:05)
[2016-07-09] MEDS: NYSTATIN 100,000 UNIT/GM CREAM 15 GM TOPICAL SCH ×2 (09:00→21:27)
[2016-07-09] MEDS: DILTIAZEM-CD 120 MG CAP ER PO SCH (09:00)
[2016-07-09] MEDS: CALCIUM/VITAMIN D 250 MG/125 U TAB PO SCH ×2 (09:00→21:06)
[2016-07-09] MEDS: SODIUM CHLORIDE 0.9% FLUSH 5 ML FLUSH IV FLUSH SCH ×2 (09:00→21:05)
[2016-07-09] MEDS: QUEtiapine FUMARATE 25 MG TAB PO SCH (09:00)
[2016-07-09] MEDS: FERROUS SULFATE 325 MG (65 MG ELEMENTAL IRON) TAB PO SCH (09:00)
[2016-07-09] MEDS: SERTRALINE HCL 100 MG TAB PO SCH (09:00)
[2016-07-09] MEDS: RIVAROXABAN 20 MG TAB PO SCH (09:00)
[2016-07-09] MEDS: LACTOBACILLUS ACIDOPHILUS TAB PO SCH ×3 (09:00→17:18)
[2016-07-09] MEDS: AZTREONAM INJ 1,000 MG in SODIUM CHLORIDE 0.9% INJ 100 ML IV SCH ×2 (10:00→17:17)
[2016-07-09] MEDS ORDERED: POTASSIUM CHLORIDE 10 MEQ CONTROLLED RELEASE TAB PO ONE (10:15)
[2016-07-09] MEDS: VANCOMYCIN INJ 1,000 MG in SODIUM CHLOR 0.9% 250 ML INJ 250 ML IV SCH (11:00)
[2016-07-09 12:00] VITALS: BP 146/72; PULSE 93; RESP 20; TEMP 100.3; O2SAT 94
[2016-07-09] MEDS: HYDROmorphone HCL PF 1 MG/ML VIAL IV PUSH PRN (13:00)
[2016-07-09] MEDS: ACETAMINOPHEN/HYDROcodone 325 MG/5 MG TAB PO PRN (14:34)
--- NOTE | 2016-07-09 14:57 | RADRPT ---
EXAM DATE/TIME: 07/09/2016 14:43 [facility] COMPARISON: CHEST PA & LAT, July 08, 2016, 16:26. INDICATIONS : Productive cough. RADIATION DOSE: 7.74 CTDIvol (mGy) MEDICAL HISTORY : Chronic obstructive pulmonary disease. Carcinoma, breast. SURGICAL HISTORY : None. ENCOUNTER: Initial ACUITY: 1 day PAIN SCALE: 0/10 LOCATION: Bilateral chest TECHNIQUE: Volumetric scanning of the chest was performed. Using automated exposure control and adjustment of t he mA and/or kV according to patient size, radiation dose was kept as low as reasonably achievable to obtain optimal diagnostic quality images. FINDINGS: LUNGS: There is minimal right basilar consolidation. 6 mm nodule left lower lobe. PLEURAE: Small right pleural effusion. There is no pleural thickening or pleural effusion on the left. MEDIASTINUM: The heart and great vessels demonstrate no acute abnormality. There is no mediastinal or hilar lymph adenopathy. AXILLAE: Within normal limits. No lymphadenopathy. MUSCULOSKELETAL: Within normal limits for patient age. MISCELLANEOUS: The visualized upper abdominal organs demonstrate no acute abnormality. CONCLUSION: 1. Small right pleural effusion and minimal right basilar consolidation. 2. 6 mm left basilar nodule. Followup CT chest 6 months recommended. Florian Pepper MD on July 09, 2016 at 14:53 Board Certified Radiologist. This report was verified electronically.
[2016-07-09 16:00] VITALS: BP 129/72; PULSE 93; RESP 20; TEMP 98.7; O2SAT 95
[2016-07-09] MEDS: ALUMINUM/MAGNESIUM/SIMETH 30 ML CUP PO PRN (17:19)
[2016-07-09] MEDS: ONDANSETRON HCL 4 MG/2 ML VIAL IV PUSH PRN (17:19)
[2016-07-09] MEDS: FAT EMULSION 20% INJ 250 ML (Daily over 8 hours) IV-CENTRAL SCH (19:39)
[2016-07-09 20:00] VITALS: BP 147/65; PULSE 89; RESP 18; TEMP 99.5; O2SAT 93
[2016-07-09] MEDS: CLINIMIX E 4.25/25 1000 mL- </= 42 mls/hr IV-CENTRAL SCH ×3 (21:05)
[2016-07-09] MEDS: GABAPENTIN 100 MG CAP PO SCH (21:05)
[2016-07-10] VITALS: BP 140/70; PULSE 96; RESP 18; TEMP 100.8; O2SAT 93
[2016-07-10] MEDS: AZTREONAM INJ 1,000 MG in SODIUM CHLORIDE 0.9% INJ 100 ML IV SCH ×3 (01:19→17:15)
[2016-07-10] MEDS: ACETAMINOPHEN/HYDROcodone 325 MG/5 MG TAB PO PRN ×3 (02:53→14:48)
[2016-07-10 04:00] VITALS: BP 128/60; PULSE 94; RESP 18; TEMP 99.1; O2SAT 93
[2016-07-10] MEDS: HYDROmorphone HCL PF 1 MG/ML VIAL IV PUSH PRN ×4 (05:23→22:16)
[2016-07-10] MEDS: CLOTRIMAZOLE 1% CREAM 15 GM TOPICAL SCH ×3 (05:23→22:00)
[2016-07-10 08:00] VITALS: BP 121/67; PULSE 77; RESP 16; TEMP 97.7; O2SAT 94
[2016-07-10] MEDS: SODIUM CHLORIDE 0.9% FLUSH 5 ML FLUSH IV FLUSH SCH ×2 (09:00→22:15)
[2016-07-10] MEDS: NYSTATIN 100,000 UNIT/GM CREAM 15 GM TOPICAL SCH ×2 (09:00→22:18)
[2016-07-10] MEDS: FERROUS SULFATE 325 MG (65 MG ELEMENTAL IRON) TAB PO SCH (09:00)
[2016-07-10] MEDS: CALCITRIOL 0.25 MCG CAP PO SCH (10:05)
[2016-07-10] MEDS: CALCIUM/VITAMIN D 250 MG/125 U TAB PO SCH ×2 (10:05→22:17)
[2016-07-10] MEDS: SERTRALINE HCL 100 MG TAB PO SCH (10:05)
[2016-07-10] MEDS: RIVAROXABAN 20 MG TAB PO SCH (10:05)
[2016-07-10] MEDS: QUEtiapine FUMARATE 25 MG TAB PO SCH (10:06)
[2016-07-10] MEDS: LACTOBACILLUS ACIDOPHILUS TAB PO SCH ×3 (10:06→18:00)
[2016-07-10] MEDS: DILTIAZEM-CD 120 MG CAP ER PO SCH (10:06)
[2016-07-10] MEDS: PANTOPRAZOLE SOD 20 MG DELAYED RELEASE TAB PO SCH ×2 (10:20→22:16)
[2016-07-10] MEDS: VANCOMYCIN INJ 1,000 MG in SODIUM CHLOR 0.9% 250 ML INJ 250 ML IV SCH (11:26)
[2016-07-10 12:00] VITALS: BP 161/75; PULSE 89; RESP 16; TEMP 98.7; O2SAT 94
[2016-07-10 16:00] VITALS: BP 119/60; PULSE 87; RESP 16; TEMP 98.5; O2SAT 94
--- NOTE | 2016-07-10 17:01 | HHI.PR ---
Subjective Remarks late entry - patient seen on 07/09 patient c/o cough Had low grade fever this am with a Tmax of 100. low potassium denies cp/sob Objective Vitals Vital Signs Date Time Temp Pulse Resp B/P Pulse Ox O2 Delivery O2 Flow Rate FiO2 07/10/16 12:00 98.7 89 16 161/75 94 07/10/16 08:00 97.7 77 16 121/67 94 07/10/16 04:00 99.1 94 18 128/60 93 07/10/16 00:00 100.8 96 18 140/70 93 07/09/16 20:00 Nasal Cannula 2.00 07/09/16 20:00 99.5 89 18 147/65 93 I/O 07/09/16 07/09/16 07/09/16 07/10/16 07/10/16 07/10/16 07:00 15:00 23:00 07:00 15:00 23:00 Intake Total 874 ml 799 ml 347 ml 720 ml Output Total 900 ml Balance 874 ml -900 ml 799 ml 347 ml 720 ml Intake Oral 120 ml 220 ml 720 ml TPN/PPN 504 ml 579 ml 347 ml Lipid 250 ml Output Urine Total 900 ml # Voids 4 1 1 1 2 # Bowel Movements 2 0 1 1 1 Result Diagram: 07/09/16 0630 07/09/16 0630 Imaging Last Impressions Chest CT 07/09/16 0000 Signed Impressions: Service Date/Time: Saturday, July 09, 2016 14:43 - CONCLUSION: 1. Small right pleural effusion and minimal right basilar consolidation. 2. 6 mm left basilar nodule. Followup CT chest 6 months recommended. Florian Pepper MD Chest X-Ray 07/08/16 0000 Signed Impressions: Service Date/Time: Friday, July 08, 2016 16:26 - CONCLUSION: Chronic right lung base opacity unchanged. No new pulmonary opacity. Alexandru Lynch MD Lower Extremity Ultrasound 06/25/16 0000 Signed Impressions: Service Date/Time: Saturday, June 25, 2016 15:56 - CONCLUSION: Negative exam with no evidence of deep venous thrombosis. Soft tissue edema. Mike Leija MD Port Line Insertion 06/20/16 0000 Signed Impressions: Service Date/Time: Monday, June 20, 2016 08:53 - CONCLUSION: Uncomplicated ultrasound and fluoroscopic guided implanted central venous port catheter placement as described in detail above. An 8 [place] Power port was placed. Kevan Salgado Jr., MD Objective Remarks GENERAL: Chronically ill-appearing patient. SKIN: Abdomen with covered dressing C/D/I. Blanchable erythema with satellite lesions in sacral area. CARDIOVASCULAR: Regular rate and rhythm without murmurs, gallops, or rubs. RESPIRATORY: Clear to auscultation. Breath sounds equal bilaterally. No wheezes , rales, or rhonchi. ? broncial sounds on right lower lung field. GASTROINTESTINAL: Abdomen soft, non tender, non distended. No hepato- splenomegaly, or palpable masses. No guarding. MUSCULOSKELETAL: Left BKA wound vac in place. Very tender to palpation. NEUROLOGICAL: Awake and alert. Normal speech. Procedures Left stump debridement by Dr. Hill on 06/15/16 Medications and IVs Current Medications Medications (Trade) Dose Ordered Sig/Shira Route Start Time Stop Time Status Last Admin (NS Flush) 2 ml BID IV FLUSH 06/14/16 21:00 07/10/16 09:00 (NS Flush) 2 ml UNSCH PRN IV FLUSH 06/14/16 17:00 07/08/16 03:31 (Cardizem Cd) 120 mg DAILY PO 06/15/16 09:00 07/10/16 10:06 (Xanax) 0.125 mg Q6H PRN PO 06/14/16 17:45 07/08/16 20:26 (Rocaltrol) 0.25 mcg DAILY PO 06/15/16 09:00 07/10/16 10:05 (Ferrous Sulfate) 325 mg DAILY PO 06/15/16 09:00 07/10/16 09:00 (Neurontin) 100 mg HS PO 06/14/16 21:00 07/09/16 21:05 (Lactinex) 1 tab TID PO 06/14/16 18:00 07/10/16 10:06 (Imodium) 2 mg Q6H PRN PO 06/14/16 17:45 Hold 07/04/16 17:14 (Oscal-D 250-125) 500 mg BID PO 06/14/16 21:00 07/10/16 10:05 (Zofran Odt) 8 mg Q6H PRN PO 06/14/16 18:15 07/08/16 12:37 (Pill Splitter) 1 ea UNSCH PRN OTHER 06/14/16 18:00 (Theragran) 1 tab DAILY PO 06/15/16 12:00 Hold 06/20/16 15:16 (Dilaudid Pf Inj) 1 mg Q4H PRN IV PUSH 06/15/16 14:30 07/10/16 11:26 (Mycostatin Cream) 1 applic Q12HR TOPICAL 06/19/16 15:00 07/10/16 09:00 (Heparin Central Flush) 500 units UNSCH IVF 06/20/16 11:30 06/24/16 05:25 (NS Flush) 5 ml UNSCH PRN IVF 06/20/16 11:30 (Heparin Central Flush) 250 units UNSCH PRN IVF 06/20/16 11:30 Rivaroxaban 20 mg 20 mg DAILY PO 06/21/16 09:00 07/10/16 10:05 Multivitamins 10 ml/Folic Acid 1 mg/Amino Acid Electrolyte w/ Calc 1,010.2 ml @ 42 mls/hr Q24H IV-CENTRAL 06/20/16 20:00 07/09/16 21:05 (Liposyn Iii 20% Inj) 250 ml @ 31.25 mls/ hr Q24H IV-CENTRAL 06/20/16 20:00 07/09/16 19:39 (Lotrimin 1% Cream) 1 applic Q8HR TOPICAL 07/06/16 10:00 07/10/16 14:00 ([place] 5-325 Mg) 1 tab Q4H PRN PO 07/06/16 11:15 07/09/16 14:34 ([place] 5-325 Mg) 2 tab Q4H PRN PO 07/06/16 11:15 07/10/16 14:48 (Zoloft) 100 mg DAILY PO 07/08/16 09:00 07/10/16 10:05 Quetiapine Fumarate 25 mg 25 mg DAILY PO 07/08/16 21:00 07/10/16 10:06 Vancomycin HCl 1000 mg/Sodium Chloride 250 ml @ 250 mls/hr Q24H IV 07/09/16 11:00 07/10/16 11:26 (Azactam Inj/NS Inj) 100 ml @ 200 mls/hr Q8H IV 07/09/16 10:00 07/10/16 10:08 (Protonix) 40 mg BID PO 07/09/16 21:00 07/10/16 10:20 (Zofran Inj) 4 mg Q6HR PRN IV PUSH 07/09/16 16:45 07/09/16 17:19 (Mag-Al Plus Susp Liq) 30 ml Q6H PRN PO 07/09/16 16:45 07/09/16 17:19 A/P Problem List: (1) Infection of amputation stump Status: Resolved (2) Enterocutaneous fistula Status: Chronic (3) Hypercoagulable state Status: Chronic (4) HTN (hypertension) Status: Chronic (5) Anxiety about health Status: Chronic (6) Diarrhea Status: Acute (7) Severe protein-calorie malnutrition Status: Acute (8) Fungal skin infection Status: Acute Assessment and Plan The patient is a 70-year-old female with a medical history significant for ischemic bowel with resection and development of chronic enterocutaneous fistula , asthma, depression, COPD, severe peripheral vascular disease status post left BKA. The patient was discharged from the hospital on 06/06/16 to a custodial facility for rehabilitation. The stitches on the left stump were taken out 2 weeks ago. She reports that the wound has been opening up when she participated with physical therapy. She returned due to wound dehiscence and infection. She was admitted by the vascular surgery service, Dr. Hill for debridement. Infected left stump: Patient status post BKA on 05/02/16. - Surgery following. S/P debridement. Wound cultures growing Klebsiella ESBL positive and Morganella. -Patient was followed by ID. She was treated with IV Zerbaxa per [facility] with sensitivity testing on Zerbaxa and Avycaz . Antibiotics have since been discontinued. Monitor off antibiotics. - Dilaudid IV for breakthrough pain. Continue Percocet. - Management as per vascular surgery. After next wound vac removal won't need to be applied again. - Medicine will kindly take over and accept patient. Right leg pain: Ultrasound negative for DVT. Soft tissue swelling. Continue PT. Continue pain control with Percocet and dilaudid. Hypercoagulable state: History of ischemic bowel and severe peripheral vascular disease. - Continue Xarelto Anxiety and depression: - Continue Celexa and Xanax. 07/05 worsening depression. Patient expresses outbursts of crying. Will consult psychiatry for adjustment in medications. 07/07 appreciate psych recommendations and input. Patient started on Seroquel and Zoloft. Hypokalemia: Replace and monitor. 07/05: K 3.3 today. Potassium low due to Gi loss. Will replete 30 meq of oral potassium chloride. 07/07: fu BMP, labs ordered and pending. 07/08 Potassium 3.2. Replete and monitor. 07/09 Continue to replete and monitor potassium. COPD: Breathing treatments as needed. Stable. 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 C diff negative. Stool studies showed no WBC's and culture is pending. resume Imodium as needed. Severe protein-calorie malnutrition As evidenced by albumen of 1.8. Patient currently on TPN and being followed by dietitian. Fungal rash Patient with blanchable erythema in sacral region with satellite lesions observed. Previously described sacral ulcer stage 1 whch it is not. Continue antifungal cream. GERD: Continue PPI Fever Unknow etiology. CXR showed right lung base opacity. Blood cultures negative x1 check chest CT to better evaluate infiltrate seen on CXR. GI prophylaxis: PPI. Stool softener PRN constipation. DVT PPx: Xarelto Discharge Planning PAtient will need correction TPN as outpatient - to help arrange placement Problem Qualifiers (1) HTN (hypertension): Qualified Code: I10 - Essential hypertension (2) Diarrhea: Qualified Code: R19.7 - Diarrhea, unspecified type Jeff Carey MD Jul 10, 2016 17:01
--- NOTE | 2016-07-10 17:13 | HHI.PR ---
Subjective Remarks c/o pain in corner of the mout and along the lip c/o pain in the sides of the tongue itching in the vaginal area. still has cough but slightly improved. Low grade temp Tmax 100.8 Objective Vitals Vital Signs Date Time Temp Pulse Resp B/P Pulse Ox O2 Delivery O2 Flow Rate FiO2 07/10/16 12:00 98.7 89 16 161/75 94 07/10/16 08:00 97.7 77 16 121/67 94 07/10/16 04:00 99.1 94 18 128/60 93 07/10/16 00:00 100.8 96 18 140/70 93 07/09/16 20:00 Nasal Cannula 2.00 07/09/16 20:00 99.5 89 18 147/65 93 I/O 07/09/16 07/09/16 07/09/16 07/10/16 07/10/16 07/10/16 07:00 15:00 23:00 07:00 15:00 23:00 Intake Total 874 ml 799 ml 347 ml 720 ml Output Total 900 ml Balance 874 ml -900 ml 799 ml 347 ml 720 ml Intake Oral 120 ml 220 ml 720 ml TPN/PPN 504 ml 579 ml 347 ml Lipid 250 ml Output Urine Total 900 ml # Voids 4 1 1 1 2 # Bowel Movements 2 0 1 1 1 Result Diagram: 07/09/16 0630 07/09/16 0630 Imaging Last Impressions Chest CT 07/09/16 0000 Signed Impressions: Service Date/Time: Saturday, July 09, 2016 14:43 - CONCLUSION: 1. Small right pleural effusion and minimal right basilar consolidation. 2. 6 mm left basilar nodule. Followup CT chest 6 months recommended. Florian Pepper MD Chest X-Ray 07/08/16 0000 Signed Impressions: Service Date/Time: Friday, July 08, 2016 16:26 - CONCLUSION: Chronic right lung base opacity unchanged. No new pulmonary opacity. Alexandru Lynch MD Lower Extremity Ultrasound 06/25/16 0000 Signed Impressions: Service Date/Time: Saturday, June 25, 2016 15:56 - CONCLUSION: Negative exam with no evidence of deep venous thrombosis. Soft tissue edema. Mike Leija MD Port Line Insertion 06/20/16 0000 Signed Impressions: Service Date/Time: Monday, June 20, 2016 08:53 - CONCLUSION: Uncomplicated ultrasound and fluoroscopic guided implanted central venous port catheter placement as described in detail above. An 8 Tamazight Power port was placed. Kevan Salgado Jr., MD Objective Remarks GENERAL: Chronically ill-appearing patient. SKIN: Abdomen with covered dressing C/D/I. Blanchable erythema with satellite lesions in sacral area. Ulcers in corners of the mouth. Tongue shows inflammation of papillae. CARDIOVASCULAR: Regular rate and rhythm without murmurs, gallops, or rubs. RESPIRATORY: Clear to auscultation. Breath sounds equal bilaterally. No wheezes , rales, or rhonchi. ? broncial sounds on right lower lung field. GASTROINTESTINAL: Abdomen soft, non tender, non distended. No hepato- splenomegaly, or palpable masses. No guarding. MUSCULOSKELETAL: Left BKA wound vac in place. Very tender to palpation. NEUROLOGICAL: Awake and alert. Normal speech. Procedures Left stump debridement by Dr. Hill on 06/15/16 Medications and IVs Current Medications Medications (Trade) Dose Ordered Sig/Shira Route Start Time Stop Time Status Last Admin (NS Flush) 2 ml BID IV FLUSH 06/14/16 21:00 07/10/16 09:00 (NS Flush) 2 ml UNSCH PRN IV FLUSH 06/14/16 17:00 07/08/16 03:31 (Cardizem Cd) 120 mg DAILY PO 06/15/16 09:00 07/10/16 10:06 (Xanax) 0.125 mg Q6H PRN PO 06/14/16 17:45 07/08/16 20:26 (Rocaltrol) 0.25 mcg DAILY PO 06/15/16 09:00 07/10/16 10:05 (Ferrous Sulfate) 325 mg DAILY PO 06/15/16 09:00 07/10/16 09:00 (Neurontin) 100 mg HS PO 06/14/16 21:00 07/09/16 21:05 (Lactinex) 1 tab TID PO 06/14/16 18:00 07/10/16 10:06 (Imodium) 2 mg Q6H PRN PO 06/14/16 17:45 Hold 07/04/16 17:14 (Oscal-D 250-125) 500 mg BID PO 06/14/16 21:00 07/10/16 10:05 (Zofran Odt) 8 mg Q6H PRN PO 06/14/16 18:15 07/08/16 12:37 (Pill Splitter) 1 ea UNSCH PRN OTHER 06/14/16 18:00 (Theragran) 1 tab DAILY PO 06/15/16 12:00 Hold 06/20/16 15:16 (Dilaudid Pf Inj) 1 mg Q4H PRN IV PUSH 06/15/16 14:30 07/10/16 11:26 (Mycostatin Cream) 1 applic Q12HR TOPICAL 06/19/16 15:00 07/10/16 09:00 (Heparin Central Flush) 500 units UNSCH IVF 06/20/16 11:30 06/24/16 05:25 (NS Flush) 5 ml UNSCH PRN IVF 06/20/16 11:30 (Heparin Central Flush) 250 units UNSCH PRN IVF 06/20/16 11:30 Rivaroxaban 20 mg 20 mg DAILY PO 06/21/16 09:00 07/10/16 10:05 Multivitamins 10 ml/Folic Acid 1 mg/Amino Acid Electrolyte w/ Calc 1,010.2 ml @ 42 mls/hr Q24H IV-CENTRAL 06/20/16 20:00 07/09/16 21:05 (Liposyn Iii 20% Inj) 250 ml @ 31.25 mls/ hr Q24H IV-CENTRAL 06/20/16 20:00 07/09/16 19:39 (Lotrimin 1% Cream) 1 applic Q8HR TOPICAL 07/06/16 10:00 07/10/16 14:00 (Randolph 5-325 Mg) 1 tab Q4H PRN PO 07/06/16 11:15 07/09/16 14:34 (Randolph 5-325 Mg) 2 tab Q4H PRN PO 07/06/16 11:15 07/10/16 14:48 (Zoloft) 100 mg DAILY PO 07/08/16 09:00 07/10/16 10:05 Quetiapine Fumarate 25 mg 25 mg DAILY PO 07/08/16 21:00 07/10/16 10:06 Vancomycin HCl 1000 mg/Sodium Chloride 250 ml @ 250 mls/hr Q24H IV 07/09/16 11:00 07/10/16 11:26 (Azactam Inj/NS Inj) 100 ml @ 200 mls/hr Q8H IV 07/09/16 10:00 07/10/16 10:08 (Protonix) 40 mg BID PO 07/09/16 21:00 07/10/16 10:20 (Zofran Inj) 4 mg Q6HR PRN IV PUSH 07/09/16 16:45 07/09/16 17:19 (Mag-Al Plus Susp Liq) 30 ml Q6H PRN PO 07/09/16 16:45 07/09/16 17:19 Urinary Catheter: No Vascular Central Line Catheter: No A/P Problem List: (1) Infection of amputation stump Status: Resolved (2) Enterocutaneous fistula Status: Chronic (3) Hypercoagulable state Status: Chronic (4) HTN (hypertension) Status: Chronic (5) Anxiety about health Status: Chronic (6) Diarrhea Status: Acute (7) Severe protein-calorie malnutrition Status: Acute (8) Fungal skin infection Status: Acute (9) Herpes simplex Status: Acute Plan: will apply zovirax. Will also prescribe oral Zovirax. (10) Transient lingual papillitis Status: Acute Plan: Will Rx magic mouthwash (11) Hospital acquired PNA Status: Acute Plan: Confirmed by chest ct. also parapneumonic effusion. Continue Broad spectrum antibiotic therapy. Assessment and Plan The patient is a 70-year-old female with a medical history significant for ischemic bowel with resection and development of chronic enterocutaneous fistula , asthma, depression, COPD, severe peripheral vascular disease status post left BKA. The patient was discharged from the hospital on 06/06/16 to a [facility] facility for rehabilitation. The stitches on the left stump were taken out 2 weeks ago. She reports that the wound has been opening up when she participated with physical therapy. She returned due to wound dehiscence and infection. She was admitted by the vascular surgery service, Dr. Hill for debridement. Infected left stump: Patient status post BKA on 05/02/16. - Surgery following. S/P debridement. Wound cultures growing Klebsiella ESBL positive and Morganella. -Patient was followed by ID. She was treated with IV Zerbaxa per ID, Micro with sensitivity testing on Zerbaxa and Avycaz . Antibiotics have since been discontinued. Monitor off antibiotics. - Dilaudid IV for breakthrough pain. Continue Percocet. - Management as per vascular surgery. After next wound vac removal won't need to be applied again. - Medicine will kindly take over and accept patient. Right leg pain: Ultrasound negative for DVT. Soft tissue swelling. Continue PT. Continue pain control with Percocet and dilaudid. Hypercoagulable state: History of ischemic bowel and severe peripheral vascular disease. - Continue Xarelto Anxiety and depression: - Continue Celexa and Xanax. 07/05 worsening depression. Patient expresses outbursts of crying. Will consult psychiatry for adjustment in medications. 07/07 appreciate psych recommendations and input. Patient started on Seroquel and Zoloft. Hypokalemia: Replace and monitor. 07/05: K 3.3 today. Potassium low due to Gi loss. Will replete 30 meq of oral potassium chloride. 07/07: fu BMP, labs ordered and pending. 07/08 Potassium 3.2. Replete and monitor. 07/09 Continue to replete and monitor potassium. COPD: Breathing treatments as needed. Stable. 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 C diff negative. Stool studies showed no WBC's and culture is pending. resume Imodium as needed. Severe protein-calorie malnutrition As evidenced by albumen of 1.8. Patient currently on TPN and being followed by dietitian. Fungal rash Patient with blanchable erythema in sacral region with satellite lesions observed. Previously described sacral ulcer stage 1 whch it is not. Continue antifungal cream. 07/10 Patient c/o vaginal itching. Apply fungal cream to this area. GERD: Continue PPI Fever Unknow etiology. CXR showed right lung base opacity. Blood cultures negative x1 GI prophylaxis: PPI. Stool softener PRN constipation. DVT PPx: Xarelto Discharge Planning PAtient will need alf TPN as outpatient - to help arrange placement Problem Qualifiers (1) HTN (hypertension): Qualified Code: I10 - Essential hypertension (2) Diarrhea: Qualified Code: R19.7 - Diarrhea, unspecified type Jeff Carey MD Jul 10, 2016 17:13
[2016-07-10] MEDS: ACYCLOVIR 5% CREAM 5 GM TUBE TOPICAL SCH ×2 (17:22→22:17)
[2016-07-10] MEDS: NYSTAT/DIPHENHY/LIDO MOUTHWASH (Adult) 120ML SWISH-SWAL SCH ×2 (17:30→21:00)
[2016-07-10 20:00] VITALS: BP 108/61; PULSE 89; RESP 18; TEMP 98.9; O2SAT 93
[2016-07-10 21:39] LABS: AUTOMATED NEUTROPHIL # 2.8 TH/MM3 (1.8-7.7); BASOPHIL # 0.1 TH/MM3 (0-0.2); BASOPHIL % 1.4 % (0.0-2.0); EOSINOPHIL # 0.8 TH/MM3 (0-0.4); EOSINOPHIL % 11.4 % (0.0-4.0); HEMO FLAGS DIFF FINAL; LYMPH % 34.4 % (9.0-44.0); LYMPHOCYTE # 2.4 TH/MM3 (1.0-4.8); MEAN CELL VOLUME 96.4 FL (80.0-100.0); MEAN CORPUSCULAR HEMOGLOBIN 31.2 PG (27.0-34.0); MEAN CORPUSCULAR HGB CONC 32.4 % (32.0-36.0); MONO % 13.5 % (0.0-8.0); NEUT % 39.3 % (16.0-70.0); PLATELET COUNT 465 TH/MM3 (150-450); RED BLOOD COUNT 3.32 MIL/MM3 (4.00-5.30); RED CELL DISTRIBUTION WIDTH 20.6 % (11.6-17.2); WHITE BLOOD COUNT 7.1 TH/MM3 (4.0-11.0)
[2016-07-10] MEDS: CLINIMIX E 4.25/25 1000 mL- </= 42 mls/hr IV-CENTRAL SCH ×3 (22:15)
[2016-07-10] MEDS: FAT EMULSION 20% INJ 250 ML (Daily over 8 hours) IV-CENTRAL SCH (22:15)
[2016-07-10] MEDS: GABAPENTIN 100 MG CAP PO SCH (22:16)
[2016-07-10] MEDS: ACYCLOVIR 200 MG CAP PO SCH (22:17)
[2016-07-10 22:23] LABS: ALKALINE PHOSPHATASE 50 U/L (45-117); ALT (GPT) 26 U/L (10-53); ANION GAP 4 MEQ/L (5-15); AST (GOT) 35 U/L (15-37); BICARBONATE 29.3 MEQ/L (21.0-32.0); BLOOD UREA NITROGEN 16 MG/DL (7-18); CHLORIDE 109 MEQ/L (98-107); GLOMERULAR FILTRATION RATE 128 ML/MIN (>89); MAGNESIUM 1.6 MG/DL (1.5-2.5); POTASSIUM 3.7 MEQ/L (3.5-5.1); SODIUM (NA) 142 MEQ/L (136-145); TOTAL BILIRUBIN ADULT 0.2 MG/DL (0.2-1.0)
[2016-07-11] VITALS: BP 116/59; PULSE 98; RESP 16; TEMP 99.5; O2SAT 92
[2016-07-11] MEDS: SODIUM CHLORIDE 0.9% FLUSH 5 ML FLUSH IV FLUSH PRN (02:46)
[2016-07-11] MEDS: HYDROmorphone HCL PF 1 MG/ML VIAL IV PUSH PRN ×4 (02:46→22:11)
[2016-07-11] MEDS: AZTREONAM INJ 1,000 MG in SODIUM CHLORIDE 0.9% INJ 100 ML IV SCH ×3 (02:47→18:23)
[2016-07-11 04:00] VITALS: BP 130/60; PULSE 102; RESP 16; TEMP 99.9; O2SAT 92
[2016-07-11] MEDS: CLOTRIMAZOLE 1% CREAM 15 GM TOPICAL SCH (06:00)
[2016-07-11] MEDS: ACYCLOVIR 200 MG CAP PO SCH ×3 (06:23→22:09)
[2016-07-11] MEDS: ACYCLOVIR 5% CREAM 5 GM TUBE TOPICAL SCH ×5 (06:25→22:11)
[2016-07-11 08:00] VITALS: BP_SYST 108; BP_SYST 115; BP_DIAS 57; BP_DIAS 59; PULSE 101; PULSE 92; RESP 16; RESP 20; TEMP 99.5; TEMP 99.7; O2SAT 94
[2016-07-11] MEDS: ACETAMINOPHEN/HYDROcodone 325 MG/5 MG TAB PO PRN ×2 (08:48→14:25)
[2016-07-11] MEDS: DILTIAZEM-CD 120 MG CAP ER PO SCH ×2 (08:49→09:00)
[2016-07-11] MEDS: CALCIUM/VITAMIN D 250 MG/125 U TAB PO SCH ×2 (08:49→22:10)
[2016-07-11] MEDS: SERTRALINE HCL 100 MG TAB PO SCH (08:49)
[2016-07-11] MEDS: PANTOPRAZOLE SOD 20 MG DELAYED RELEASE TAB PO SCH ×2 (08:50→22:10)
[2016-07-11] MEDS: FERROUS SULFATE 325 MG (65 MG ELEMENTAL IRON) TAB PO SCH (08:50)
[2016-07-11] MEDS: RIVAROXABAN 20 MG TAB PO SCH (08:50)
[2016-07-11] MEDS: CALCITRIOL 0.25 MCG CAP PO SCH (08:50)
[2016-07-11] MEDS: LACTOBACILLUS ACIDOPHILUS TAB PO SCH ×3 (08:50→18:22)
[2016-07-11] MEDS: QUEtiapine FUMARATE 25 MG TAB PO SCH (08:51)
[2016-07-11] MEDS: SODIUM CHLORIDE 0.9% FLUSH 5 ML FLUSH IV FLUSH SCH ×2 (08:55→22:10)
[2016-07-11] MEDS: NYSTATIN 100,000 UNIT/GM CREAM 15 GM TOPICAL SCH (09:00)
[2016-07-11] MEDS: NYSTAT/DIPHENHY/LIDO MOUTHWASH (Adult) 120ML SWISH-SWAL SCH ×4 (09:03→22:10)
[2016-07-11] MEDS ORDERED: Vancomycin Consult Pharmacy 1 EA OTHER SCH (10:15)
--- NOTE | 2016-07-11 10:24 | HHI.PR ---
Subjective Remarks F/U fever. Tm 99.5. Complains of constant abd wound drainage. Sore mouth dw RN Objective Vitals Vital Signs Date Time Temp Pulse Resp B/P Pulse Ox O2 Delivery O2 Flow Rate FiO2 07/11/16 08:00 99.5 92 16 115/57 94 07/11/16 08:00 99.7 101 20 108/59 94 07/11/16 04:00 Room Air 07/11/16 04:00 99.9 102 16 130/60 92 07/11/16 00:00 99.5 98 16 116/59 92 07/11/16 00:00 Room Air 07/10/16 20:00 Room Air 07/10/16 20:00 98.9 89 18 108/61 93 07/10/16 16:00 98.5 87 16 119/60 94 07/10/16 12:00 98.7 89 16 161/75 94 I/O 07/10/16 07/10/16 07/10/16 07/11/16 07/11/16 07/11/16 07:00 15:00 23:00 07:00 15:00 23:00 Intake Total 347 ml 720 ml 801 ml Balance 347 ml 720 ml 801 ml Intake Oral 720 ml 240 ml IV Total 100 ml TPN/PPN 347 ml 398 ml Lipid 63 ml # Voids 1 2 2 # Bowel Movements 1 1 2 Result Diagram: 07/10/16211307/10/162113 Objective Remarks GENERAL: Chronically ill-appearing patient. SKIN: Abdomen with covered dressing C/D/I. Tender warm red skin right to the abd wound. Blanchable erythema with satellite lesions in sacral area. Ulcers in corners of the mouth. Tongue shows inflammation of papillae. NCAT HEENT: DOMO CARDIOVASCULAR: Regular rate and rhythm without murmurs, gallops, or rubs. RESPIRATORY: Clear to auscultation. Breath sounds equal bilaterally. No wheezes , rales, or rhonchi. GASTROINTESTINAL: Abdomen soft, non tender, non distended. No hepato- splenomegaly, or palpable masses. No guarding. MUSCULOSKELETAL: Left BKA wound healing no infection NEUROLOGICAL: Awake and alert. Normal speech. Procedures Left stump debridement by Dr. Hill on 06/15/16 A/P Problem List: (1) Infection of amputation stump Status: Resolved (2) Enterocutaneous fistula Status: Chronic (3) Hypercoagulable state Status: Chronic (4) HTN (hypertension) Status: Chronic (5) Anxiety about health Status: Chronic (6) Diarrhea Status: Acute (7) Severe protein-calorie malnutrition Status: Acute (8) Fungal skin infection Status: Acute (9) Herpes simplex Status: Acute (10) Transient lingual papillitis Status: Acute (11) Hospital acquired PNA Status: Acute Assessment and Plan The patient is a 70-year-old female with a medical history significant for ischemic bowel with resection and development of chronic enterocutaneous fistula , asthma, depression, COPD, severe peripheral vascular disease status post left BKA. The patient was discharged from the hospital on 06/06/16 to a correction facility for [facility]. The stitches on the left stump were taken out 2 weeks ago. She reports that the wound has been opening up when she participated with physical therapy. She returned due to wound dehiscence and infection. She was admitted by the vascular surgery service, Dr. Hill for debridement. Infected left stump: Patient status post BKA on 05/02/16. - Surgery following. S/P debridement. Wound cultures growing Klebsiella ESBL positive and Morganella. -Patient was followed by ID. She was treated with IV Zerbaxa per ID, Micro with sensitivity testing on Zerbaxa and Avycaz . Antibiotics have since been discontinued. Monitor off antibiotics. - Dilaudid IV for breakthrough pain. Continue Percocet. - Management as per vascular surgery s/p wound vac Right leg pain: Ultrasound negative for DVT. Soft tissue swelling. Continue PT. Continue pain control with Percocet and dilaudid. Hypercoagulable state: History of ischemic bowel and severe peripheral vascular disease. - Continue Xarelto Anxiety and depression: - Continue Celexa and Xanax. 07/05 worsening depression. Patient expresses outbursts of crying. Will consult psychiatry for adjustment in medications. 07/07 appreciate psych recommendations and input. Patient started on Seroquel and Zoloft. Hypokalemia: Replace and monitor. COPD: Breathing treatments as needed. Stable. 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 C diff negative. Stool studies showed no WBC's and culture is negative resume Imodium as needed. Severe protein-calorie malnutrition As evidenced by albumen of 1.8. Patient currently on TPN and being followed by dietitian. Fungal rash Patient with blanchable erythema in sacral region with satellite lesions observed. Switch to nystatin powder 07/10 Patient c/o vaginal itching. Apply fungal cream to this area. GERD: Continue PPI Thrush. Mycelex montserrat Fever 2/2 cellulitis and PNA CXR showed right lung base opacity. Blood cultures negative x1 Ct Vanco and azactam 07/[address] in 6 mos GI prophylaxis: PPI. Stool softener PRN constipation. DVT PPx: Xarelto Discharge Planning Patient will need snf TPN as outpatient - to help arrange placement. No accepting facility Problem Qualifiers (1) HTN (hypertension): Qualified Code: I10 - Essential hypertension (2) Diarrhea: Qualified Code: R19.7 - Diarrhea, unspecified type Dusty Benson MD Jul 11, 2016 10:24 Multivitamins 10 ml/Folic Acid 1 mg/Amino Acid Electrolyte w/ Calc 1,010.2 ml @ 42 mls/hr Q24H IV-CENTRAL 06/20/16 20:00 07/09/16 21:05 (Liposyn Iii 20% Inj) 250 ml @ 31.25 mls/ hr Q24H IV-CENTRAL 06/20/16 20:00 07/09/16 19:39 (Lotrimin 1% Cream) 1 applic Q8HR TOPICAL 07/06/16 10:00 07/10/16 14:00 (Gillett 5-325 Mg) 1 tab Q4H PRN PO 07/06/16 11:15 07/09/16 14:34 (Gillett 5-325 Mg) 2 tab Q4H PRN PO 07/06/16 11:15 07/10/16 14:48 (Zoloft) 100 mg DAILY PO 07/08/16 09:00 07/10/16 10:05 Quetiapine Fumarate 25 mg 25 mg DAILY PO 07/08/16 21:00 07/10/16 10:06 Vancomycin HCl 1000 mg/Sodium Chloride 250 ml @ 250 mls/hr Q24H IV 07/09/16 11:00 07/10/16 11:26 (Azactam Inj/NS Inj) 100 ml @ 200 mls/hr Q8H IV 07/09/16 10:00 07/10/16 10:08 (Protonix) 40 mg BID PO 07/09/16 21:00 07/10/16 10:20 (Zofran Inj) 4 mg Q6HR PRN IV PUSH 07/09/16 16:45 07/09/16 17:19 (Mag-Al Plus Susp Liq) 30 ml Q6H PRN PO 07/09/16 16:45 07/09/16 17:19 Urinary Catheter: No Vascular Central Line Catheter: No Plan A/P Problem List: (1) Infection of amputation stump Status: Resolved (2) Enterocutaneous fistula Status: Chronic (3) Hypercoagulable state Status: Chronic (4) HTN (hypertension) Status: Chronic (5) Anxiety about health Status: Chronic (6) Diarrhea Status: Acute (7) Severe protein-calorie malnutrition Status: Acute (8) Fungal skin infection Status: Acute (9) Herpes simplex Status: Acute Plan: will apply zovirax. Will also prescribe oral Zovirax. (10) Transient lingual papillitis Status: Acute Plan: Will Rx magic mouthwash (11) Hospital acquired PNA Status: Acute Plan: Confirmed by chest ct. also parapneumonic effusion. Continue Broad spectrum antibiotic therapy. Assessment and Plan The patient is a 70-year-old female with a medical history significant for ischemic bowel with resection and development of chronic enterocutaneous fistula , asthma, depression, COPD, severe peripheral vascular disease status post left BKA. The patient was discharged from the hospital on 06/06/16 to a correction facility for rehabilitation. The stitches on the left stump were taken out 2 weeks ago. She reports that the wound has been opening up when she participated with physical therapy. She returned due to wound dehiscence and infection. She was admitted by the vascular surgery service, Dr. Hill for debridement. Infected left stump: Patient status post BKA on 05/02/16. - Surgery following. S/P debridement. Wound cultures growing Klebsiella ESBL positive and Morganella. -Patient was followed by ID. She was treated with IV Zerbaxa per ID Micro with sensitivity testing on Zerbaxa and Avycaz . Antibiotics have since been discontinued. Monitor off antibiotics. - Dilaudid IV for breakthrough pain. Continue Percocet. - Management as per vascular surgery. After next wound vac removal won't need to be applied again. - Medicine will kindly take over and accept patient. Right leg pain: Ultrasound negative for DVT. Soft tissue swelling. Continue PT. Continue pain control with Percocet and dilaudid. Hypercoagulable state: History of ischemic bowel and severe peripheral vascular disease. - Continue Xarelto Anxiety and depression: - Continue Celexa and Xanax. 07/05 worsening depression. Patient expresses outbursts of crying. Will consult psychiatry for adjustment in medications. 07/07 appreciate psych recommendations and input. Patient started on Seroquel and Zoloft. Hypokalemia: Replace and monitor. 07/05: K 3.3 today. Potassium low due to Gi loss. Will replete 30 meq of oral potassium chloride. 07/07: fu BMP, labs ordered and pending. 07/08 Potassium 3.2. Replete and monitor. 07/09 Continue to replete and monitor potassium. COPD: Breathing treatments as needed. Stable. 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 C diff negative. Stool studies showed no WBC's and culture is pending. resume Imodium as needed. Severe protein-calorie malnutrition As evidenced by albumen of 1.8. Patient currently on TPN and being followed by dietitian. Fungal rash Patient with blanchable erythema in sacral region with satellite lesions observed. Previously described sacral ulcer stage 1 whch it is not. Continue antifungal cream. 07/10 Patient c/o vaginal itching. Apply fungal cream to this area. GERD: Continue PPI Fever Unknow etiology. CXR showed right lung base opacity. Blood cultures negative x1 GI prophylaxis: PPI. Stool softener PRN constipation. DVT PPx: Xarelto Discharge Planning PAtient will need jail TPN as outpatient - to help arrange placement Procedures Left stump debridement by Dr. Hill on 06/15/16 A/P Problem List: (1) Infection of amputation stump Status: Resolved (2) Enterocutaneous fistula Status: Chronic (3) Hypercoagulable state Status: Chronic (4) HTN (hypertension) Status: Chronic (5) Anxiety about health Status: Chronic (6) Diarrhea Status: Acute (7) Severe protein-calorie malnutrition Status: Acute (8) Fungal skin infection Status: Acute (9) Herpes simplex Status: Acute (10) Transient lingual papillitis Status: Acute (11) Hospital acquired PNA Status: Acute Problem Qualifiers (1) HTN (hypertension): Qualified Code: I10 - Essential hypertension (2) Diarrhea: Qualified Code: R19.7 - Diarrhea, unspecified type Dusty Benson MD Jul 11, 2016 10:24
[2016-07-11] MEDS ORDERED: DUONI NEB (10:42)
[2016-07-11] MEDS ORDERED: CLOT10 BUCCAL (10:42)
[2016-07-11] MEDS ORDERED: NYSTT TOPICAL (10:42)
[2016-07-11] MEDS ORDERED: [UNRECOGNIZED DRUG - CODE] TOPICAL (10:42)
[2016-07-11] MEDS ORDERED: ALPR.25 PO (10:42)
[2016-07-11] MEDS ORDERED: QUET25 PO (10:42)
[2016-07-11] MEDS ORDERED: HYDR-3535 PO (10:42)
[2016-07-11] MEDS ORDERED: ACYC200C PO (10:42)
[2016-07-11] MEDS ORDERED: SERT100 PO (10:42)
[2016-07-11] MEDS: VANCOMYCIN INJ 1,000 MG in SODIUM CHLOR 0.9% 250 ML INJ 250 ML IV SCH (10:47)
[2016-07-11 12:00] VITALS: BP 96/52; PULSE 84; RESP 20; TEMP 98.9; O2SAT 95
[2016-07-11] MEDS: NYSTATIN 100,000 U/GM PWD 15 GM BTL TOPICAL SCH ×2 (12:00→22:11)
[2016-07-11 13:05] LABS: AUTOMATED NEUTROPHIL # 5.6 TH/MM3 (1.8-7.7); BASOPHIL # 0.1 TH/MM3 (0-0.2); BASOPHIL % 0.8 % (0.0-2.0); EOSINOPHIL # 0.7 TH/MM3 (0-0.4); EOSINOPHIL % 6.7 % (0.0-4.0); HEMATOCRIT 30.8 % (35.0-46.0); HEMO FLAGS DIFF FINAL; LYMPH % 26.5 % (9.0-44.0); LYMPHOCYTE # 2.6 TH/MM3 (1.0-4.8); MEAN CELL VOLUME 97.2 FL (80.0-100.0); MEAN CORPUSCULAR HEMOGLOBIN 31.1 PG (27.0-34.0); MONO % 9.3 % (0.0-8.0); NEUT % 56.7 % (16.0-70.0); PLATELET COUNT 443 TH/MM3 (150-450); RED BLOOD COUNT 3.17 MIL/MM3 (4.00-5.30); WHITE BLOOD COUNT 9.9 TH/MM3 (4.0-11.0)
[2016-07-11 13:18] LABS: ALT (GPT) 27 U/L (10-53); ANION GAP 8 MEQ/L (5-15); AST (GOT) 39 U/L (15-37); BICARBONATE 25.1 MEQ/L (21.0-32.0); BLOOD UREA NITROGEN 14 MG/DL (7-18); CHLORIDE 108 MEQ/L (98-107); GLOMERULAR FILTRATION RATE 134 ML/MIN (>89); MAGNESIUM 1.6 MG/DL (1.5-2.5); POTASSIUM 3.5 MEQ/L (3.5-5.1); SODIUM (NA) 141 MEQ/L (136-145)
[2016-07-11 13:21] LABS: ALKALINE PHOSPHATASE 48 U/L (45-117); TOTAL BILIRUBIN ADULT 0.2 MG/DL (0.2-1.0)
[2016-07-11] MEDS: CLOTRIMAZOLE 10 MG TROCHE BUCCAL SCH ×3 (14:00→22:09)
[2016-07-11 16:00] VITALS: BP 122/60; PULSE 75; RESP 20; TEMP 98; O2SAT 93
[2016-07-11 20:00] VITALS: BP 136/63; PULSE 84; RESP 16; TEMP 99.2; O2SAT 94
[2016-07-11] MEDS: FAT EMULSION 20% INJ 250 ML (Daily over 8 hours) IV-CENTRAL SCH (22:08)
[2016-07-11] MEDS: GABAPENTIN 100 MG CAP PO SCH (22:09)
[2016-07-11] MEDS: CLINIMIX E 4.25/25 1000 mL- </= 42 mls/hr IV-CENTRAL SCH ×3 (22:09)
[2016-07-12] VITALS: BP 140/67; PULSE 101; RESP 19; TEMP 97; O2SAT 93
[2016-07-12] MEDS: HYDROmorphone HCL PF 1 MG/ML VIAL IV PUSH PRN ×5 (02:47→19:28)
[2016-07-12] MEDS: SODIUM CHLORIDE 0.9% FLUSH 5 ML FLUSH IV FLUSH PRN (02:47)
[2016-07-12] MEDS: AZTREONAM INJ 1,000 MG in SODIUM CHLORIDE 0.9% INJ 100 ML IV SCH ×3 (02:47→17:12)
[2016-07-12 04:00] VITALS: BP 135/77; PULSE 100; RESP 19; TEMP 99.1; O2SAT 93
[2016-07-12] MEDS: ACYCLOVIR 5% CREAM 5 GM TUBE TOPICAL SCH ×5 (06:00→22:13)
[2016-07-12] MEDS: ACYCLOVIR 200 MG CAP PO SCH ×3 (06:38→22:08)
[2016-07-12] MEDS: CLOTRIMAZOLE 10 MG TROCHE BUCCAL SCH ×5 (06:38→22:08)
[2016-07-12 08:00] VITALS: BP 124/59; PULSE 92; RESP 16; TEMP 98.7; O2SAT 93
[2016-07-12] MEDS: LACTOBACILLUS ACIDOPHILUS TAB PO SCH ×3 (09:01→17:12)
[2016-07-12] MEDS: RIVAROXABAN 20 MG TAB PO SCH (09:01)
[2016-07-12] MEDS: SERTRALINE HCL 100 MG TAB PO SCH (09:01)
[2016-07-12] MEDS: CALCITRIOL 0.25 MCG CAP PO SCH (09:01)
[2016-07-12] MEDS: DILTIAZEM-CD 120 MG CAP ER PO SCH (09:01)
[2016-07-12] MEDS: PANTOPRAZOLE SOD 20 MG DELAYED RELEASE TAB PO SCH ×2 (09:02→22:08)
[2016-07-12] MEDS: QUEtiapine FUMARATE 25 MG TAB PO SCH (09:02)
[2016-07-12] MEDS: FERROUS SULFATE 325 MG (65 MG ELEMENTAL IRON) TAB PO SCH (09:02)
[2016-07-12] MEDS: CALCIUM/VITAMIN D 250 MG/125 U TAB PO SCH ×2 (09:02→22:08)
[2016-07-12] MEDS: SODIUM CHLORIDE 0.9% FLUSH 5 ML FLUSH IV FLUSH SCH ×2 (09:05→22:07)
[2016-07-12] MEDS: NYSTATIN 100,000 U/GM PWD 15 GM BTL TOPICAL SCH ×2 (09:06→22:13)
[2016-07-12] MEDS: NYSTAT/DIPHENHY/LIDO MOUTHWASH (Adult) 120ML SWISH-SWAL SCH ×4 (10:28→22:07)
[2016-07-12] MEDS: VANCOMYCIN INJ 1,000 MG in SODIUM CHLOR 0.9% 250 ML INJ 250 ML IV SCH (10:34)
[2016-07-12] MEDS ORDERED: PHARMACY ORDERED LAB XX ONE (10:45)
[2016-07-12 12:00] VITALS: BP 118/60; PULSE 97; RESP 16; TEMP 97.7; O2SAT 93
--- NOTE | 2016-07-12 15:49 | HHI.PR ---
Subjective Remarks Follow-up cellulitis. States she has more discomfort in her abdominal area than her left stump. She also reports of scattered lesions which are painful. Denies pruritus Discussed with RN Objective Vitals Vital Signs Date Time Temp Pulse Resp B/P Pulse Ox O2 Delivery O2 Flow Rate FiO2 07/12/16 12:00 97.7 97 16 118/60 93 07/12/16 11:26 Room Air 21 07/12/16 08:00 98.7 92 16 124/59 93 07/12/16 04:00 99.1 100 19 135/77 93 07/12/16 04:00 Room Air 07/12/16 00:00 97.0 101 19 140/67 93 07/12/16 00:00 Room Air 07/11/16 20:00 99.2 84 16 136/63 94 07/11/16 20:00 Room Air 07/11/16 16:00 98.0 75 20 122/60 93 I/O 07/11/16 07/11/16 07/11/16 07/12/16 07/12/16 07/12/16 07:00 15:00 23:00 07:00 15:00 23:00 Intake Total 240 ml 873 ml 784 ml Output Total 200 ml 800 ml 150 ml Balance 40 ml 73 ml 634 ml Intake Oral 240 ml 360 ml 120 ml IV Total 50 ml 150 ml TPN/PPN 399 ml 328 ml Lipid 64 ml 186 ml Output Urine Total 800 ml 150 ml Stool Total 200 ml # Voids 2 # Bowel Movements 1 2 0 Result Diagram: 07/11/16 1220 07/11/16 1220 Objective Remarks GENERAL: Chronically ill-appearing patient. SKIN: Abdomen with covered dressing C/D/I. Tender warm red skin right to the abd wound (improving). Blanchable erythema with satellite lesions in sacral area. Ulcers in corners of the mouth. Tongue shows inflammation of papillae. Scattered lesions resembling spider nevi on the face and extremities NCAT HEENT: DOMO CARDIOVASCULAR: Regular rate and rhythm without murmurs, gallops, or rubs. RESPIRATORY: Clear to auscultation. Breath sounds equal bilaterally. No wheezes , rales, or rhonchi. GASTROINTESTINAL: Abdomen soft, non tender, non distended.. No guarding. MUSCULOSKELETAL: Left BKA wound healing no infection NEUROLOGICAL: Awake and alert. Normal speech. Procedures Left stump debridement by Dr. Hill on 06/15/16 A/P Problem List: (1) Infection of amputation stump Status: Resolved (2) Enterocutaneous fistula Status: Chronic (3) Hypercoagulable state Status: Chronic (4) HTN (hypertension) Status: Chronic (5) Anxiety about health Status: Chronic (6) Diarrhea Status: Acute (7) Severe protein-calorie malnutrition Status: Acute (8) Fungal skin infection Status: Acute (9) Herpes simplex Status: Acute (10) Transient lingual papillitis Status: Acute (11) Hospital acquired PNA Status: Acute Assessment and Plan The patient is a 70-year-old female with a medical history significant for ischemic bowel with resection and development of chronic enterocutaneous fistula , asthma, depression, COPD, severe peripheral vascular disease status post left BKA. The patient was discharged from the hospital on 06/06/16 to a assisted facility for rehabilitation. The stitches on the left stump were taken out 2 weeks ago. She reports that the wound has been opening up when she participated with physical therapy. She returned due to wound dehiscence and infection. She was admitted by the vascular surgery service, Dr. Hill for debridement. Infected left stump: Patient status post BKA on 05/02/16. - Surgery following. S/P debridement. Wound cultures growing Klebsiella ESBL positive and Morganella. -Patient was followed by ID. She was treated with IV Zerbaxa per ID Micro with sensitivity testing on Zerbaxa and Avycaz . Antibiotics have since been discontinued. Monitor off antibiotics. - Dilaudid IV for breakthrough pain. Continue Percocet. - Management as per vascular surgery s/p wound vac Right leg pain: Ultrasound negative for DVT. Soft tissue swelling. Continue PT. Continue pain control with Percocet and dilaudid. Hypercoagulable state: History of ischemic bowel and severe peripheral vascular disease. - Continue Xarelto Anxiety and depression: - Continue Celexa and Xanax. 07/05 worsening depression. Patient expresses outbursts of crying. Will consult psychiatry for adjustment in medications. 07/07 appreciate psych recommendations and input. Patient started on Seroquel and Zoloft. Hypokalemia: Replace and monitor. COPD: Breathing treatments as needed. Stable. 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 C diff negative. Stool studies showed no WBC's and culture is negative resume Imodium as needed. Severe protein-calorie malnutrition As evidenced by albumen of 1.8. Patient currently on TPN and being followed by dietitian. Fungal rash Patient with blanchable erythema in sacral region with satellite lesions observed. Switched to nystatin powder 07/10 Patient c/o vaginal itching. Apply fungal cream to this area. GERD: Continue PPI Thrush. Mycelex montserrat Fever 2/2 cellulitis and PNA. Improving fever curve CXR showed right lung base opacity. Blood cultures negative x1 Ct Vanco and azactam started 07/09. Consider switching to by mouth in the morning Scattered lesions resembling spider nevi. Check coags, platelet count and liver ultrasound. Pulmonary nodule. Rpt CT in 6 mos GI prophylaxis: PPI. Stool softener PRN constipation. DVT PPx: Xarelto Discharge Planning Patient will need terminal operator TPN as outpatient - to help arrange placement. No accepting facility Problem Qualifiers (1) HTN (hypertension): Qualified Code: I10 - Essential hypertension (2) Diarrhea: Qualified Code: R19.7 - Diarrhea, unspecified type Dusty Benson MD Jul 12, 2016 15:49
[2016-07-12 16:00] VITALS: BP 114/59; PULSE 88; RESP 16; TEMP 97.8; O2SAT 93
[2016-07-12 20:00] VITALS: BP 117/58; PULSE 94; RESP 14; TEMP 99.3; O2SAT 93
--- NOTE | 2016-07-12 20:09 | RADRPT ---
EXAM DATE/TIME: 07/12/2016 18:07 [facility] COMPARISON: No previous studies available for comparison. INDICATIONS : Cirrhosis. MEDICAL HISTORY : Hypertension. Chronic obstructive pulmonary disease. Gastroesophageal reflux disease. Afib. Emphysema . Asthma. Peritoneal abscess. Arthritis. Osteoporosis. Skin cancer. Breast cancer. Anemia. Depression . Clotting problems. ESBL+Klebsiella. SURGICAL HISTORY : Mastectomy, right. Hysterectomy. Cholecystectomy. AV shunt. Right wrist surgery. Skin cancer removal. Blood transfusions. ENCOUNTER: Initial ACUITY: 1 day PAIN SCORE: 0/10 LOCATION: Abdomen. MEASUREMENTS: LIVER: 15.6 cm length COMMON DUCT: 6 mm RIGHT KIDNEY: 11.0 x 4.6 x 4.5 cm SPLEEN: 5.7 cm length FINDINGS: LIVER: Heterogeneous parenchyma. Nothing focal seen. No ductal dilatation. COMMON DUCT: No intraluminal mass or stone visualized. GALLBLADDER: Previous cholecystectomy. PANCREAS: The visualized portions are within normal limits. RIGHT KIDNEY: Patchy cortical thinning/scarring. No focal lesion demonstrated. SPLEEN: Small and heterogeneous. No measurable mass. CONCLUSION: 1. No acute abnormality demonstrated. 2. Heterogeneous liver without measurable mass. 3. Small and heterogeneous spleen without a measurable mass. 4. Cortical thinning and scarring of the right kidney. 5. Previous cholecystectomy. Calixto Woodruff MD on July 12, 2016 at 20:05 Board Certified Radiologist. This report was verified electronically.
[2016-07-12] MEDS: FAT EMULSION 20% INJ 250 ML (Daily over 8 hours) IV-CENTRAL SCH (22:07)
[2016-07-12] MEDS: CLINIMIX E 4.25/25 1000 mL- </= 42 mls/hr IV-CENTRAL SCH ×3 (22:07)
[2016-07-12] MEDS: GABAPENTIN 100 MG CAP PO SCH (22:08)
[2016-07-12] MEDS: ONDANSETRON HCL 4 MG/2 ML VIAL IV PUSH PRN (22:20)
[2016-07-12] MEDS: ALPRAZolam 0.25 MG TAB PO PRN (22:24)
[2016-07-13] VITALS: BP 130/60; PULSE 87; RESP 14; TEMP 99.6; O2SAT 94
[2016-07-13] MEDS: AZTREONAM INJ 1,000 MG in SODIUM CHLORIDE 0.9% INJ 100 ML IV SCH ×3 (02:32→18:00)
[2016-07-13 04:40] VITALS: BP 126/60; PULSE 90; RESP 15; TEMP 99; O2SAT 94
[2016-07-13] MEDS: VANCOMYCIN 1,000 MG/NS 250 ML IV SCH ×4 (05:05→23:11)
[2016-07-13] MEDS: HYDROmorphone HCL PF 1 MG/ML VIAL IV PUSH PRN (05:07)
[2016-07-13] MEDS: ACYCLOVIR 200 MG CAP PO SCH ×3 (05:07→23:08)
[2016-07-13] MEDS: CLOTRIMAZOLE 10 MG TROCHE BUCCAL SCH ×5 (05:07→23:09)
[2016-07-13] MEDS: ACYCLOVIR 5% CREAM 5 GM TUBE TOPICAL SCH ×5 (05:07→23:10)
[2016-07-13 06:29] LABS: AUTOMATED NEUTROPHIL # 4.8 TH/MM3 (1.8-7.7); BASOPHIL # 0.1 TH/MM3 (0-0.2); BASOPHIL % 0.9 % (0.0-2.0); EOSINOPHIL # 0.6 TH/MM3 (0-0.4); HEMATOCRIT 30.7 % (35.0-46.0); HEMO FLAGS DIFF FINAL; LYMPH % 24.3 % (9.0-44.0); MEAN CELL VOLUME 95.7 FL (80.0-100.0); MEAN CORPUSCULAR HEMOGLOBIN 31.4 PG (27.0-34.0); MEAN CORPUSCULAR HGB CONC 32.8 % (32.0-36.0); MONO % 9.5 % (0.0-8.0); NEUT % 58.3 % (16.0-70.0); PLATELET COUNT 469 TH/MM3 (150-450); RED BLOOD COUNT 3.21 MIL/MM3 (4.00-5.30); RED CELL DISTRIBUTION WIDTH 20.1 % (11.6-17.2); WHITE BLOOD COUNT 8.2 TH/MM3 (4.0-11.0)
[2016-07-13 06:44] LABS: APTT (PATIENT) 28.9 SEC (22.6-28.8); INTERNATIONAL NORMALIZED RATIO 1.1 RATIO
[2016-07-13 06:47] LABS: BICARBONATE 24.1 MEQ/L (21.0-32.0); MAGNESIUM 1.4 MG/DL (1.5-2.5); POTASSIUM 3.1 MEQ/L (3.5-5.1)
[2016-07-13 08:00] VITALS: BP 120/59; PULSE 95; RESP 18; TEMP 100; O2SAT 92
[2016-07-13] MEDS: RIVAROXABAN 20 MG TAB PO SCH (09:00)
[2016-07-13] MEDS: PANTOPRAZOLE SOD 20 MG DELAYED RELEASE TAB PO SCH ×2 (09:00→23:08)
[2016-07-13] MEDS: QUEtiapine FUMARATE 25 MG TAB PO SCH (09:00)
[2016-07-13] MEDS: DILTIAZEM-CD 120 MG CAP ER PO SCH (09:00)
[2016-07-13] MEDS: CALCITRIOL 0.25 MCG CAP PO SCH (09:00)
[2016-07-13] MEDS: NYSTATIN 100,000 U/GM PWD 15 GM BTL TOPICAL SCH ×2 (09:00→23:10)
[2016-07-13] MEDS: SODIUM CHLORIDE 0.9% FLUSH 5 ML FLUSH IV FLUSH SCH ×2 (09:00→23:05)
[2016-07-13] MEDS: NYSTAT/DIPHENHY/LIDO MOUTHWASH (Adult) 120ML SWISH-SWAL SCH ×4 (09:00→23:09)
[2016-07-13] MEDS: FERROUS SULFATE 325 MG (65 MG ELEMENTAL IRON) TAB PO SCH (09:00)
[2016-07-13] MEDS: SERTRALINE HCL 100 MG TAB PO SCH (09:00)
[2016-07-13] MEDS: LACTOBACILLUS ACIDOPHILUS TAB PO SCH ×3 (09:00→18:00)
[2016-07-13] MEDS: CALCIUM/VITAMIN D 250 MG/125 U TAB PO SCH ×2 (09:00→23:08)
[2016-07-13 12:00] VITALS: BP 122/58; PULSE 90; RESP 18; TEMP 100.3; O2SAT 92
--- NOTE | 2016-07-13 13:40 | HHI.PR ---
Subjective Remarks Follow-up fever. States "i'm out of it"still having significant drainage from the enterocutaneous fistula. Improving cough. No shortness of breath. MAXIMUM TEMPERATURE 100.3. Discussed with RN Objective Vitals Vital Signs Date Time Temp Pulse Resp B/P Pulse Ox O2 Delivery O2 Flow Rate FiO2 07/13/16 12:00 100.3 90 18 122/58 92 07/13/16 08:31 Room Air 07/13/16 08:00 100.0 95 18 120/59 92 07/13/16 05:37 18 07/13/16 04:40 99.0 90 15 126/60 94 07/13/16 00:00 99.6 87 14 130/60 94 07/12/16 20:30 Room Air 07/12/16 20:00 99.3 94 14 117/58 93 07/12/16 18:11 Room Air 21 07/12/16 16:00 97.8 88 16 114/59 93 I/O 07/12/16 07/12/16 07/12/16 07/13/16 07/13/16 07/13/16 07:00 15:00 23:00 07:00 15:00 23:00 Intake Total 784 ml 980 ml 0 ml 1215 ml Output Total 150 ml 600 ml Balance 634 ml 980 ml 0 ml 615 ml Intake Oral 120 ml 980 ml 0 ml 240 ml IV Total 150 ml 404 ml TPN/PPN 328 ml 321 ml Lipid 186 ml 250 ml Output Urine Total 150 ml 600 ml # Voids 2 1 # Bowel Movements 0 1 1 Result Diagram: 07/13/16 0601 07/13/16 06 Objective Remarks GENERAL: Chronically ill-appearing patient. SKIN: Abdomen with covered dressing C/D/I. Tender warm red skin right to the abd wound (improving). Blanchable erythema with satellite lesions in sacral area. Ulcers in corners of the mouth. Tongue shows improving inflammation of papillae. Stable scattered lesions resembling spider nevi on the face and extremities NCAT HEENT: DOMO CARDIOVASCULAR: Regular rate and rhythm without murmurs, gallops, or rubs. RESPIRATORY: Clear to auscultation. Breath sounds equal bilaterally. No wheezes , rales, or rhonchi. GASTROINTESTINAL: Abdomen soft, non tender, non distended.. No guarding. MUSCULOSKELETAL: Left BKA wound healing no infection NEUROLOGICAL: Awake and following commands. Moving all extremities. Normal speech. Procedures Left stump debridement by Dr. Hill on 06/15/16 A/P Problem List: (1) Infection of amputation stump Status: Resolved (2) Enterocutaneous fistula Status: Chronic (3) Hypercoagulable state Status: Chronic (4) HTN (hypertension) Status: Chronic (5) Anxiety about health Status: Chronic (6) Diarrhea Status: Acute (7) Severe protein-calorie malnutrition Status: Acute (8) Fungal skin infection Status: Acute (9) Herpes simplex Status: Acute (10) Transient lingual papillitis Status: Acute (11) Hospital acquired PNA Status: Acute Assessment and Plan The patient is a 70-year-old female with a medical history significant for ischemic bowel with resection and development of chronic enterocutaneous fistula , asthma, depression, COPD, severe peripheral vascular disease status post left BKA. The patient was discharged from the hospital on 06/06/16 to a residential facility for rehabilitation. The stitches on the left stump were taken out 2 weeks ago. She reports that the wound has been opening up when she participated with physical therapy. She returned due to wound dehiscence and infection. She was admitted by the vascular surgery service, Dr. Hill for debridement. Infected left stump: Patient status post BKA on 05/02/16. - Surgery following. S/P debridement. Wound cultures growing Klebsiella ESBL positive and Morganella. -Patient was followed by ID. She was treated with IV Zerbaxa per ID, Micro with sensitivity testing on Zerbaxa and Avycaz . Antibiotics have since been discontinued. Monitor off antibiotics. - Dilaudid IV for breakthrough pain. Continue Percocet. - Management as per vascular surgery s/p wound vac Right leg pain: Ultrasound negative for DVT. Soft tissue swelling. Continue PT. Continue pain control with Percocet and dilaudid. Hypercoagulable state: History of ischemic bowel and severe peripheral vascular disease. - Continue Xarelto Anxiety and depression: - Continue Celexa and Xanax. 07/05 worsening depression. Patient expresses outbursts of crying. Will consult psychiatry for adjustment in medications. 07/07 appreciate psych recommendations and input. Patient started on Seroquel and Zoloft. Hypokalemia: Replace and monitor. COPD: Breathing treatments as needed. Stable. 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 C diff negative. Stool studies showed no WBC's and culture is negative resume Imodium as needed. Severe protein-calorie malnutrition As evidenced by albumen of 1.8. Patient currently on TPN and being followed by dietitian. Fungal rash Patient with blanchable erythema in sacral region with satellite lesions observed. Switched to nystatin powder 07/10 Patient c/o vaginal itching. Apply fungal cream to this area. GERD: Continue PPI Thrush. Mycelex montserrat Fever 2/2 cellulitis and PNA. Has recurrent fevers CXR showed right lung base opacity. Blood cultures negative x1. Repeat blood cultures if temperature greater than 101. Patient has a port. Ct Vanco and azactam started 07/09. Reconsult ID Scattered lesions resembling spider nevi. Unremarkable coags, platelet count and liver ultrasound. Stable continue to monitor Pulmonary nodule. Rpt CT in 6 mos GI prophylaxis: PPI. Stool softener PRN constipation. DVT PPx: Xarelto Discharge Planning Patient will need watermelon inspector TPN as outpatient - to help arrange placement. No accepting facility. Not stable for discharge Problem Qualifiers (1) HTN (hypertension): Qualified Code: I10 - Essential hypertension (2) Diarrhea: Qualified Code: R19.7 - Diarrhea, unspecified type Dsuty Benson MD Jul 13, 2016 13:40
[2016-07-13] MEDS ORDERED: POTASSIUM CHLORIDE 10 MEQ CONTROLLED RELEASE TAB PO ONE (13:45)
[2016-07-13] MEDS: MAGNESIUM OXIDE 400 MG TAB PO SCH ×2 (13:45→23:09)
[2016-07-13 16:00] VITALS: BP 113/52; PULSE 93; RESP 18; TEMP 100.6; O2SAT 92
[2016-07-13] MEDS: CLINIMIX E 4.25/25 1000 mL- </= 42 mls/hr IV-CENTRAL SCH ×3 (18:23)
[2016-07-13 20:00] VITALS: BP 144/67; PULSE 98; RESP 14; TEMP 100; O2SAT 93
[2016-07-13] MEDS: FAT EMULSION 20% INJ 250 ML (Daily over 8 hours) IV-CENTRAL SCH (23:01)
[2016-07-13] MEDS: ACETAMINOPHEN/HYDROcodone 325 MG/5 MG TAB PO PRN (23:07)
[2016-07-13] MEDS: GABAPENTIN 100 MG CAP PO SCH (23:09)
[2016-07-14] VITALS: BP 123/58; PULSE 97; RESP 15; TEMP 98.5; O2SAT 92
[2016-07-14] MEDS: HYDROmorphone HCL PF 1 MG/ML VIAL IV PUSH PRN ×4 (03:57→23:06)
[2016-07-14 04:00] VITALS: BP 115/55; PULSE 82; RESP 14; TEMP 97.6; O2SAT 91
[2016-07-14] MEDS: AZTREONAM INJ 1,000 MG in SODIUM CHLORIDE 0.9% INJ 100 ML IV SCH ×3 (04:00→17:53)
[2016-07-14] MEDS: CLOTRIMAZOLE 10 MG TROCHE BUCCAL SCH ×5 (06:00→22:58)
[2016-07-14] MEDS: ACYCLOVIR 200 MG CAP PO SCH ×3 (06:00→22:58)
[2016-07-14] MEDS: ACYCLOVIR 5% CREAM 5 GM TUBE TOPICAL SCH ×5 (06:00→23:04)
[2016-07-14] MEDS: ACETAMINOPHEN/HYDROcodone 325 MG/5 MG TAB PO PRN ×3 (06:03→19:24)
[2016-07-14 08:00] VITALS: BP 117/62; PULSE 81; RESP 18; TEMP 97.3; O2SAT 93
[2016-07-14 08:18] LABS: BICARBONATE 23.3 MEQ/L (21.0-32.0); MAGNESIUM 1.6 MG/DL (1.5-2.5); POTASSIUM 3.2 MEQ/L (3.5-5.1)
[2016-07-14] MEDS: RIVAROXABAN 20 MG TAB PO SCH (08:46)
[2016-07-14] MEDS: CALCIUM/VITAMIN D 250 MG/125 U TAB PO SCH ×2 (08:46→22:59)
[2016-07-14] MEDS: QUEtiapine FUMARATE 25 MG TAB PO SCH (08:46)
[2016-07-14] MEDS: FERROUS SULFATE 325 MG (65 MG ELEMENTAL IRON) TAB PO SCH (08:46)
[2016-07-14] MEDS: CALCITRIOL 0.25 MCG CAP PO SCH (08:46)
[2016-07-14] MEDS: MAGNESIUM OXIDE 400 MG TAB PO SCH ×2 (08:46→22:59)
[2016-07-14] MEDS: PANTOPRAZOLE SOD 20 MG DELAYED RELEASE TAB PO SCH ×2 (08:46→22:59)
[2016-07-14] MEDS: SERTRALINE HCL 100 MG TAB PO SCH (08:46)
[2016-07-14] MEDS: SODIUM CHLORIDE 0.9% FLUSH 5 ML FLUSH IV FLUSH SCH ×2 (08:46→21:00)
[2016-07-14] MEDS: LACTOBACILLUS ACIDOPHILUS TAB PO SCH ×3 (08:46→17:50)
[2016-07-14] MEDS: DILTIAZEM-CD 120 MG CAP ER PO SCH (08:46)
[2016-07-14] MEDS: NYSTAT/DIPHENHY/LIDO MOUTHWASH (Adult) 120ML SWISH-SWAL SCH ×4 (08:47→22:57)
[2016-07-14] MEDS: NYSTATIN 100,000 U/GM PWD 15 GM BTL TOPICAL SCH ×2 (10:34→22:58)
[2016-07-14] MEDS ORDERED: POTASSIUM CHLORIDE 10 MEQ CONTROLLED RELEASE TAB PO ONE (10:45)
--- NOTE | 2016-07-14 11:05 | HHI.IDPN ---
Subjective Subjective Remarks Notes reviewed Initially admitted for infected L BKA stump - underwent debridement and received course of Abx Last seen by me Jun 23 Reconsult now for fevers Started having fevers Jul 09, more fevers since yesterday Not coughing much now CXR with basal infiltrate UA ok BC negative so far C diff negative Stump looks good Noted to have rash on face about 4 days ago, states it is not painful, itchy Temps better overnight Has had increased output from her EC fistula Antibiotics Azactam Vancomycin Lines Port Past Medical History 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 Vital Signs Date Time Temp Pulse Resp B/P Pulse Ox O2 Delivery O2 Flow Rate FiO2 07/14/16 09:55 Room Air 21 07/14/16 08:00 97.3 81 18 117/62 93 07/14/16 04:00 97.6 82 14 115/55 91 07/14/16 00:00 98.5 97 15 123/58 92 07/13/16 20:00 Room Air 07/13/16 20:00 100.0 98 14 144/67 93 07/13/16 16:00 100.6 93 18 113/52 92 07/13/16 12:00 100.3 90 18 122/58 92 07/13/16 07/13/16 07/14/16 15:00 23:00 07:00 Intake Total 1020 ml 240 ml 240 ml Output Total 500 ml 300 ml Balance 520 ml -60 ml 240 ml Intake Oral 480 ml 240 ml 240 ml IV Total 200 ml TPN/PPN 340 ml Output Urine Total 500 ml 300 ml # Voids 2 # Bowel Movements 1 1 . Laboratory Tests Test 07/13/16 06:01 White Blood Count 8.2 TH/MM3 Red Blood Count 3.21 MIL/MM3 Hemoglobin 10.1 GM/DL Hematocrit 30.7 % Mean Corpuscular Volume 95.7 FL Mean Corpuscular Hemoglobin 31.4 PG Mean Corpuscular Hemoglobin 32.8 % Concent Red Cell Distribution Width 20.1 % Platelet Count 469 TH/MM3 Mean Platelet Volume 8.4 FL Neutrophils (%) (Auto) 58.3 % Lymphocytes (%) (Auto) 24.3 % Monocytes (%) (Auto) 9.5 % Eosinophils (%) (Auto) 7.0 % Basophils (%) (Auto) 0.9 % Neutrophils # (Auto) 4.8 TH/MM3 Lymphocytes # (Auto) 2.0 TH/MM3 Monocytes # (Auto) 0.8 TH/MM3 Eosinophils # (Auto) 0.6 TH/MM3 Basophils # (Auto) 0.1 TH/MM3 CBC Comment DIFF FINAL Differential Comment Laboratory Tests Test 07/13/16 07/14/16 06:01 05:48 Sodium Level 141 MEQ/L 142 MEQ/L Potassium Level 3.1 MEQ/L 3.2 MEQ/L Chloride Level 108 MEQ/L 111 MEQ/L Carbon Dioxide Level 24.1 MEQ/L 23.3 MEQ/L Anion Gap 9 MEQ/L 8 MEQ/L Blood Urea Nitrogen 12 MG/DL 10 MG/DL Creatinine 0.47 MG/DL 0.41 MG/DL Estimat Glomerular Filtration 131 ML/MIN 153 ML/MIN Rate Random Glucose 108 MG/DL 114 MG/DL Calcium Level 8.3 MG/DL 8.3 MG/DL Magnesium Level 1.4 MG/DL 1.6 MG/DL Imaging Liver Ultrasound 07/12/16 0000 Signed Impressions: Service Date/Time: Tuesday, July 12, 2016 18:07 - CONCLUSION: 1. No acute abnormality demonstrated. 2. Heterogeneous liver without measurable mass. 3. Small and heterogeneous spleen without a measurable mass. 4. Cortical thinning and scarring of the right kidney. 5. Previous cholecystectomy. Calixto Woodruff MD Chest CT 07/09/16 0000 Signed Impressions: Service Date/Time: Saturday, July 09, 2016 14:43 - CONCLUSION: 1. Small right pleural effusion and minimal right basilar consolidation. 2. 6 mm left basilar nodule. Followup CT chest 6 months recommended. Florian Pepper MD Chest X-Ray 07/08/16 0000 Signed Impressions: Service Date/Time: Friday, July 08, 2016 16:26 - CONCLUSION: Chronic right lung base opacity unchanged. No new pulmonary opacity. Alexandru Lynch MD Lower Extremity Ultrasound 06/25/16 0000 Signed Impressions: Service Date/Time: Saturday, June 25, 2016 15:56 - CONCLUSION: Negative exam with no evidence of deep venous thrombosis. Soft tissue edema. Mike Leija MD Port Line Insertion 06/20/16 0000 Signed Impressions: Service Date/Time: Monday, June 20, 2016 08:53 - CONCLUSION: Uncomplicated ultrasound and fluoroscopic guided implanted central venous port catheter placement as described in detail above. An 8 [place] Power port was placed. Kevan Salgado Jr., MD Chest X-Ray 06/17/16 0000 Signed Impressions: Service Date/Time: Friday, June 17, 2016 14:12 - CONCLUSION: Right base infiltrate and small effusion. Calixto Woodruff MD Physical Exam GENERAL: awake and alert, not in respiratory distress. SKIN: Warm and dry. Has flat red macules with dry centers on R side of her face, and in the back, on R, did not seem to cross midline, no pustules or vesicles noted, mostly dry now, ?some crusting in the back rash HEENT: [place] conjunctiva. No petechia or hemorrhage. No scleral icterus. Moist oral mucosa. NO lesions in mouth; has red dry rash at corner R mouth. Has some crusted lesions in her lower eyelid medially L eye NECK: Supple and not tender, no meningeal signs. No lymphadenopathy. CARDIOVASCULAR: Regular rate and rhythm. No murmur, no rub. RESPIRATORY: Coarse BS tatyana. Port L upper chest looks ok, currently accessed. ABDOMEN: Soft, nondistended. There is a midline scar, and there are 3 small fistula openings that is draining yellow fluid. There is maceration of skin around her midline scar likely due to the soaked dressing sitting on her fistula. There is mild tenderness on palpation of the abdomen especially in the midline. Bowel sounds present and normoactive. No guarding. No rebound. No organomegaly. EXTREMITIES: LBKA stump mostly healed except on the lateral portion where there is still a 1 inch wound with some slough, no purulence, no redness noted. NEUROLOGICAL: Grossly non-focal PSYCH: Calm and cooperative LINE: Port looks ok. Assessment & Plan Remarks IMPRESSION Infection LBKA stump, C/S Klebsiella ESBL+ and Morganella - S/P debridement - S/P Rx Multiple Abx allergy - has tolerated Cephalosporins in the past PVD Previous abdominal OR for ischemic bowel, has fistula - has increased output Cough, better Fevers, etiology? Rash on face and back, does not seem to cross midline, rash is dry now, and I did not see the beginning rash, ?zoster - but patient states rash is not painful RECOMMENDATION On Vanco and Azactam Add Flagyl Get BC from port Wound care for the EC fistula Monitor temps Monitor progress Follow rash Will follow with you Sara Greenfield MD Jul 14, 2016 11:04
[2016-07-14 12:00] VITALS: BP 118/58; PULSE 82; RESP 18; TEMP 96.3; O2SAT 93
--- NOTE | 2016-07-14 12:29 | HHI.PR ---
Subjective Remarks Follow-up fevers. MAXIMUM TEMPERATURE 97 3. Discussed with ID, wound care and RN. Patient reports of significant fistula drainage causing skin inflammation. Objective Vitals Vital Signs Date Time Temp Pulse Resp B/P Pulse Ox O2 Delivery O2 Flow Rate FiO2 07/14/16 09:55 Room Air 21 07/14/16 08:00 97.3 81 18 117/62 93 07/14/16 04:00 97.6 82 14 115/55 91 07/14/16 00:00 98.5 97 15 123/58 92 07/13/16 20:00 Room Air 07/13/16 20:00 100.0 98 14 144/67 93 07/13/16 16:00 100.6 93 18 113/52 92 I/O 07/13/16 07/13/16 07/13/16 07/14/16 07/14/16 07/14/16 07:00 15:00 23:00 07:00 15:00 23:00 Intake Total 1215 ml 1020 ml 240 ml 240 ml Output Total 600 ml 500 ml 300 ml Balance 615 ml 520 ml -60 ml 240 ml Intake Oral 240 ml 480 ml 240 ml 240 ml IV Total 404 ml 200 ml TPN/PPN 321 ml 340 ml Lipid 250 ml Output Urine Total 600 ml 500 ml 300 ml # Voids 2 # Bowel Movements 1 1 1 Result Diagram: 07/13/16 0601 07/14/16 0548 Objective Remarks GENERAL: Chronically ill-appearing patient. SKIN: Abdomen with covered dressing C/D/I. Tender warm inflamed skin right to the abd wound. Tongue shows improving inflammation of papillae. Stable scattered red macular lesions on the face and extremities NCAT HEENT: DOMO CARDIOVASCULAR: Regular rate and rhythm without murmurs, gallops, or rubs. RESPIRATORY: Clear to auscultation. Breath sounds equal bilaterally. No wheezes , rales, or rhonchi. GASTROINTESTINAL: Abdomen soft, non tender, non distended.. No guarding. MUSCULOSKELETAL: Left BKA wound healing no infection NEUROLOGICAL: Awake and following commands. Moving all extremities. Normal speech. Procedures Left stump debridement by Dr. Hill on 06/15/16 A/P Problem List: (1) Infection of amputation stump Status: Resolved (2) Enterocutaneous fistula Status: Chronic (3) Hypercoagulable state Status: Chronic (4) HTN (hypertension) Status: Chronic (5) Anxiety about health Status: Chronic (6) Diarrhea Status: Acute (7) Severe protein-calorie malnutrition Status: Acute (8) Fungal skin infection Status: Acute (9) Herpes simplex Status: Acute (10) Transient lingual papillitis Status: Acute (11) Hospital acquired PNA Status: Acute Assessment and Plan The patient is a 70-year-old female with a medical history significant for ischemic bowel with resection and development of chronic enterocutaneous fistula , asthma, depression, COPD, severe peripheral vascular disease status post left BKA. The patient was [facility] from the [facility] The stitches on the left stump were taken out 2 weeks ago. She reports that the wound has been opening up when she participated with physical therapy. She returned due to wound dehiscence and infection. She was admitted by the vascular surgery service, Dr. Hill for debridement. Infected left stump: Patient status post BKA on 05/02/16. - Surgery following. S/P debridement. Wound cultures growing Klebsiella ESBL positive and Morganella. -Patient was followed by ID. She was treated with IV Zerbaxa per ID Micro with sensitivity testing on Zerbaxa and Avycaz . Antibiotics have since been discontinued. Monitor off antibiotics. - Dilaudid IV for breakthrough pain. Continue Percocet. - Management as per vascular surgery s/p wound vac Right leg pain: Ultrasound negative for DVT. Soft tissue swelling. Continue PT. Continue pain control with Percocet and dilaudid. Hypercoagulable state: History of ischemic bowel and severe peripheral vascular disease. - Continue Xarelto Anxiety and depression: - Continue Celexa and Xanax. 07/05 worsening depression. Patient expresses outbursts of crying. Will consult psychiatry for adjustment in medications. 07/07 appreciate psych recommendations and input. Patient started on Seroquel and Zoloft. Hypokalemia: Replace and monitor. COPD: Breathing treatments as needed. Stable. 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 C diff negative. Stool studies showed no WBC's and culture is negative resume Imodium as needed. Severe protein-calorie malnutrition As evidenced by albumen of 1.8. Patient currently on TPN and being followed by dietitian. Fungal rash Patient with blanchable erythema in sacral region with satellite lesions observed. Switched to nystatin powder 07/10 Patient c/o vaginal itching. Apply fungal cream to this area. GERD: Continue PPI Thrush. Stable. Mycelex montserrat Fever 2/2 cellulitis and PNA. Has recurrent fevers CXR showed right lung base opacity. Blood cultures negative x1. Repeat blood cultures if temperature greater than 101. Patient has a port. Ct Vanco and azactam started 07/09. Reconsult ID, added Flagyl Scattered face and extremity lesions. Not painful. Unremarkable coags, platelet count and liver ultrasound. Stable continue to monitor Pulmonary nodule. Rpt CT in 6 mos GI prophylaxis: PPI. Stool softener PRN constipation. DVT PPx: Xarelto Discharge Planning Patient will need long-term TPN as outpatient - to help arrange placement. No accepting facility. Not stable for discharge Problem Qualifiers (1) HTN (hypertension): Qualified Code: I10 - Essential hypertension (2) Diarrhea: Qualified Code: R19.7 - Diarrhea, unspecified type Dusty Benson MD Jul 14, 2016 12:29
[2016-07-14] MEDS: metroNIDAZOLE 500 MG TAB PO SCH ×2 (13:59→22:58)
[2016-07-14 16:00] VITALS: BP 136/64; PULSE 93; RESP 18; TEMP 98.9; O2SAT 93
[2016-07-14] MEDS: CLOTRIMAZOLE 1% CREAM 15 GM TOPICAL SCH ×2 (16:09→22:58)
[2016-07-14] MEDS: COLLAGENASE OINT 30 GM TUBE TOP SCH (16:10)
[2016-07-14] MEDS: VANCOMYCIN 1,000 MG/NS 250 ML IV SCH ×2 (16:11)
--- NOTE | 2016-07-14 17:42 | PD.CAR.PN ---
CVT Progress Note Subjective/Hospital Course: 70-year-old female with a complex medical and surgical history of peripheral vascular disease and multiple related problems presents now status post BK amputation about a month half ago. Patient went to [facility] and apparently braced herself on the stump several times in bed in hit it against either floor or the chair not quite clear. Part of the stump opened up and at this point patient is dehiscence of skin deeper tissue seemed to be still intact. 06/16/16 Patient underwent yesterday debridement of the stump with wound VAC placement. The dehiscence is fortunately superficial involving skin and muscle in this as been debrided successfully while the rest of the tissues of bleeding and are viable. Wound VAC has been placed Cultures have been reviewed and antibiotics can be adjusted by medicine as appropriate We'll continue current care and patient should be able to go to [facility] with a wound VAC by Sunday Patient's nutritional status is very poor with a low albumen and prealbumin level and therefore nutritional evaluation and recommendations are requested I believe the patient is not taking sufficient by mouth in the [facility] and may need supplemental enteral or parenteral feedings at this point 06/17/16 I reviewed the nutritional parameters and patient's prealbumin and transferrin levels a critically low indicating severe malnutrition. Patient's healing is impaired and so is the rehabilitative potential. After reviewing to nutritional recommendations once these are made, we will decide whether patient needs an Ahvezh-o-Wxkw placed for additional parenteral nutrition for short bowel syndrome Stump is nice and clean with minimal drainage from the wound VAC 06/19/16 Still awaiting nutritional consult and evaluation for patient has short gut syndrome and will probably need additional parenteral feedings. If so patient will need [id number]-c-[id number] placement for additional feedings Patient is taking excellent by mouth but despite that her nutritional status is poor and hence the healing issues Left BKA stump incision is clean and wound VAC is in place with minimal drainage and will need to be changed today Awaiting wound care to change the wound VAC. Infectious disease help is much appreciated 06/20/2016 Patient doing well at this time. Stump is clean and the wound VAC will be changed today Patient had Dsgzae-f-Kwqm placed by radiology for supplemental parenteral feedings. Grateful for the nutritional evaluation. Patient will be placed on TPN at about the 1500 non-protein calories a day split about 60-70% in glucose and about 30% in form of lipids Patient will likely have to be discharged on supplemental TPN in face of her short bowel syndrome 06/21/16 Patient is doing really well at this time She's taking good by mouth diet. 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 There is some granulation tissue which may eventually need to be debrided but at this point I would leave it alone. Stump wound VAC has been changed and this is clean and granulating nicely. Patient is currently on TPN which tolerating well. In face of her short bowel syndrome patient will need TPN after discharge from the hospital. Grateful to case management for making arrangements for the same 06/22/16 Vital signs stable patient is doing well. Her appetite has improved and patient is taking good by mouth diet and having regular bowel movements. The abdominal incision is completely healed and fistula has completely resolved. The BKA wound VAC has been changed and wound is clean and granulating nicely. Hcemay-g-Vdjr is being used for additional parenteral feedings necessary and short bowel syndrome and patient will be discharged on TPN. 06/23/16 Patient underwent today change of the wound VAC and the wound is clean. Next with will be the last wound VAC change and after that I plan to take the patient to the OR for irrigation and closure of the wound by the middle of the next week. 06/24/16 Patient doing very well at this time she is in a good mood and taking by mouth diet well Unfortunately due to the short bowel syndrome she need supplemental TPN feedings at this time Stump is healed nicely there is a small scab anterior to it and this should allow to fall off on its own Once the arrangements are made for outpatient TPN patient will be able to be discharged Awaiting case management to make the arrangements for outpatient TPN 06/25/16 Vital signs stable Patient is awake and alert and oriented, taking by mouth diet very well Abdomen is soft and the colocutaneous fistula is completely closed The BKA stump has an eschar and a scab but I would leave this alone because underneath its healing nicely. Patient remains on TPN considering the short gut syndrome and will go home on the same Mild anemia is dilutional due to TPN administration and intravenous fluids and does not require therapy at this time 06/26/16 Vital signs stable Patient is awake and alert and oriented, taking by mouth diet very well Abdomen is soft and the colocutaneous fistula is completely closed The BKA stump has an eschar and a scab but I would leave this alone because underneath its healing nicely. Patient remains on TPN considering the short gut syndrome and will go home on the same Mild anemia is dilutional due to TPN administration and intravenous fluids and does not require therapy at this time 06/27/16 Wound VAC has been removed by me and the the entire stump is healed very nicely except a small area but an inch length at the very lateral portion of the incision were we going to put a very small wound VAC on for another week or so. Patient can transfer to rehabilitation at any time as long as she can get intravenous TPN in the process 06/28/16 Wound VAC has been removed by me and the the entire stump is healed very nicely except a small area but an inch length at the very lateral portion of the incision were we going to put a very small wound VAC on for another week or so. Patient can transfer to rehabilitation at any time as long as she can get intravenous TPN Patient will need residential TPN considering short gut syndrome and this can be done either in a [facility] or at home I suspect this will be about a six-month process and after that patient may not need additional feedings if we can get her in a reasonable nutritional status in the meantime. I understand the difficulty this creates for case management to find her such an arrangement 06/29/16 Patient doing really well at this time taking good by mouth but due to the short bowel syndrome will require long-term TPN Stump is healing really nicely and the probably after this week we will remove the wound VAC and simply place wet-to-dry dressing and allow this to heal 06/30/16 Patient is doing well tolerates diet. Abdomen is soft with active bowel sounds Incisions are clean and dry Wound VAC last change will be next week and after that we going to remove the wound VAC and continue wet-to-dry dressing Stump is healing really nicely Due to TPN and other issues placement remains a problem 07/01/16 Abdomen soft and active bowel sounds Tolerates diet well Stump is clean and dry and I'll remove the wound VAC on Sunday after that patient will just be on wet-to-dry dressings until the stump heels Arrangements for discharge to difficult due to long-term TPN needs 07/03/16 Vital signs stable Stump is clean and wound VAC after next removal won't need to be applied again Patient will remain long-term on TPN and I'm waiting for case management to make discharge arrangements Will [facility] medicine kindly if patient can be transferred to medicine service at this time 07/14/16 Patient is a placement issue apparently is still in the hospital The left BKA stump is healed nicely except for very small air about 1 cm which is granulating in on the lateral aspect of the stump Apparently the enterocutaneous fistula was close for about month and a half and opened up 2 days ago draining some stool It should be noted that the bowel is quite close to the skin and patient is very thin and malnourished so it is not surprising that fistula opens and closes sporadically. With enteral and parenteral nutrition that should close but clearly patient is very frail and it could open up any time Nothing to add to care at this time Thanks Sergio Objective: Vital Signs Date Time Temp Pulse Resp B/P Pulse Ox O2 Delivery O2 Flow Rate FiO2 07/14/16 16:32 Room Air 21 07/14/16 16:00 98.9 93 18 136/64 93 07/14/16 12:32 Room Air 21 07/14/16 12:00 96.3 82 18 118/58 93 07/14/16 09:55 Room Air 21 07/14/16 08:00 97.3 81 18 117/62 93 07/14/16 04:00 97.6 82 14 115/55 91 07/14/16 00:00 98.5 97 15 123/58 92 07/13/16 20:00 Room Air 07/13/16 20:00 100.0 98 14 144/67 93 Labs: Laboratory Tests Test 07/14/16 05:48 Sodium Level 142 MEQ/L (136-145) Potassium Level 3.2 MEQ/L (3.5-5.1) Chloride Level 111 MEQ/L (98-107) Carbon Dioxide Level 23.3 MEQ/L (21.0-32.0) Anion Gap 8 MEQ/L (5-15) Blood Urea Nitrogen 10 MG/DL (7-18) Creatinine 0.41 MG/DL (0.50-1.00) Estimat Glomerular Filtration 153 ML/MIN Rate (>89) Random Glucose 114 MG/DL (74-106) Calcium Level 8.3 MG/DL (8.5-10.1) Magnesium Level 1.6 MG/DL (1.5-2.5) Result Diagram: 07/13/16 0601 07/14/16 0548 Janice Olvera MD Jul 14, 2016 17:42
[2016-07-14] MEDS: CLINIMIX E 4.25/25 1000 mL- </= 42 mls/hr IV-CENTRAL SCH ×3 (18:08)
[2016-07-14 20:00] VITALS: BP 109/53; PULSE 85; RESP 16; TEMP 98.1; O2SAT 94
[2016-07-14] MEDS: GABAPENTIN 100 MG CAP PO SCH (22:59)
[2016-07-14] MEDS: FAT EMULSION 20% INJ 250 ML (Daily over 8 hours) IV-CENTRAL SCH (23:05)
[2016-07-15] VITALS: BP 104/56; PULSE 78; RESP 17; TEMP 97.9; O2SAT 93
[2016-07-15] MEDS: ACETAMINOPHEN/HYDROcodone 325 MG/5 MG TAB PO PRN ×2 (03:30→21:38)
[2016-07-15] MEDS: AZTREONAM INJ 1,000 MG in SODIUM CHLORIDE 0.9% INJ 100 ML IV SCH ×3 (03:31→17:31)
[2016-07-15 04:00] VITALS: BP 126/64; PULSE 94; RESP 17; TEMP 96.7; O2SAT 95
[2016-07-15] MEDS: ACYCLOVIR 200 MG CAP PO SCH ×3 (05:51→21:36)
[2016-07-15] MEDS: ACYCLOVIR 5% CREAM 5 GM TUBE TOPICAL SCH ×5 (05:51→21:37)
[2016-07-15] MEDS: metroNIDAZOLE 500 MG TAB PO SCH ×3 (05:51→21:35)
[2016-07-15] MEDS: CLOTRIMAZOLE 10 MG TROCHE BUCCAL SCH ×5 (05:51→21:35)
[2016-07-15] MEDS: HYDROmorphone HCL PF 1 MG/ML VIAL IV PUSH PRN ×3 (05:52→19:02)
[2016-07-15 08:00] VITALS: BP 121/60; PULSE 86; RESP 16; TEMP 97.6; O2SAT 95
[2016-07-15] MEDS: SODIUM CHLORIDE 0.9% FLUSH 5 ML FLUSH IV FLUSH SCH ×2 (08:53→21:34)
[2016-07-15] MEDS: CALCIUM/VITAMIN D 250 MG/125 U TAB PO SCH ×2 (08:54→21:36)
[2016-07-15] MEDS: LACTOBACILLUS ACIDOPHILUS TAB PO SCH ×3 (08:54→17:31)
[2016-07-15] MEDS: MAGNESIUM OXIDE 400 MG TAB PO SCH ×2 (08:54→21:35)
[2016-07-15] MEDS: CALCITRIOL 0.25 MCG CAP PO SCH (08:55)
[2016-07-15] MEDS: PANTOPRAZOLE SOD 20 MG DELAYED RELEASE TAB PO SCH ×2 (08:55→21:35)
[2016-07-15] MEDS: RIVAROXABAN 20 MG TAB PO SCH (08:55)
[2016-07-15] MEDS: QUEtiapine FUMARATE 25 MG TAB PO SCH (08:55)
[2016-07-15] MEDS: FERROUS SULFATE 325 MG (65 MG ELEMENTAL IRON) TAB PO SCH (08:55)
[2016-07-15] MEDS: DILTIAZEM-CD 120 MG CAP ER PO SCH (08:55)
[2016-07-15] MEDS: SERTRALINE HCL 100 MG TAB PO SCH (08:55)
[2016-07-15] MEDS: NYSTATIN 100,000 U/GM PWD 15 GM BTL TOPICAL SCH ×2 (08:56→21:37)
[2016-07-15] MEDS: CLOTRIMAZOLE 1% CREAM 15 GM TOPICAL SCH ×2 (08:56→21:36)
[2016-07-15] MEDS: NYSTAT/DIPHENHY/LIDO MOUTHWASH (Adult) 120ML SWISH-SWAL SCH ×4 (08:56→21:36)
[2016-07-15] MEDS: COLLAGENASE OINT 30 GM TUBE TOP SCH (08:56)
[2016-07-15] MEDS ORDERED: PHARMACY ORDERED LAB XX ONE (10:45)
[2016-07-15] MEDS: VANCOMYCIN 1,000 MG/NS 250 ML IV SCH ×2 (11:03)
[2016-07-15 11:55] LABS: BICARBONATE 24.5 MEQ/L (21.0-32.0); MAGNESIUM 1.6 MG/DL (1.5-2.5); POTASSIUM 3.8 MEQ/L (3.5-5.1); VANCOMYCIN TROUGH 12.9 MCG/ML (5.0-10.0)
[2016-07-15 12:00] VITALS: BP 104/54; PULSE 92; RESP 18; TEMP 98.8; O2SAT 93
[2016-07-15 16:00] VITALS: BP 110/59; PULSE 93; RESP 18; TEMP 99.6; O2SAT 93
[2016-07-15] MEDS: ALPRAZolam 0.25 MG TAB PO PRN (16:03)
--- NOTE | 2016-07-15 16:27 | HHI.PR ---
Subjective Remarks Follow-up depression. She is crying overwhelmed with her medical conditions. She denies suicidal ideations. Discussed with RN Objective Vitals Vital Signs Date Time Temp Pulse Resp B/P Pulse Ox O2 Delivery O2 Flow Rate FiO2 07/15/16 14:51 Room Air 21 07/15/16 12:00 98.8 92 18 104/54 93 07/15/16 09:37 Room Air 21 07/15/16 08:00 97.6 86 16 121/60 95 07/15/16 04:00 96.7 94 17 126/64 95 07/15/16 00:00 97.9 78 17 104/56 93 07/14/16 20:00 98.1 85 16 109/53 94 07/14/16 16:32 Room Air 21 I/O 07/14/16 07/14/16 07/14/16 07/15/16 07/15/16 07/15/16 07:00 15:00 23:00 07:00 15:00 23:00 Intake Total 240 ml 360 ml 220 ml 210 ml Output Total 400 ml 200 ml Balance 240 ml -40 ml 220 ml 10 ml Intake Oral 240 ml 360 ml 220 ml 210 ml Output Urine Total 400 ml 200 ml # Voids 2 # Bowel Movements 1 1 Result Diagram: 07/13/16 0601 07/15/16 1045 Objective Remarks GENERAL: Chronically ill-appearing patient. Crying upset with her current situation SKIN: Abdomen with covered dressing C/D/I. Tender warm inflamed skin right to the abd wound. Tongue shows improving inflammation of papillae. Stable scattered red macular lesions on the face and extremities NCAT HEENT: DOMO CARDIOVASCULAR: Regular rate and rhythm without murmurs, gallops, or rubs. RESPIRATORY: Clear to auscultation. Breath sounds equal bilaterally. No wheezes , rales, or rhonchi. GASTROINTESTINAL: Abdomen soft, non tender, non distended. No guarding. 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 Moving all extremities. Normal speech. Procedures Left stump debridement by Dr. Hill on 06/15/16 A/P Problem List: (1) Infection of amputation stump Status: Resolved (2) Enterocutaneous fistula Status: Chronic (3) Hypercoagulable state Status: Chronic (4) HTN (hypertension) Status: Chronic (5) Anxiety about health Status: Chronic (6) Diarrhea Status: Acute (7) Severe protein-calorie malnutrition Status: Acute (8) Fungal skin infection Status: Acute (9) Herpes simplex Status: Acute (10) Transient lingual papillitis Status: Acute (11) Hospital acquired PNA Status: Acute Assessment and Plan The patient is a 70-year-old female with a medical history significant for ischemic bowel with resection and development of chronic enterocutaneous fistula , asthma, depression, COPD, severe peripheral vascular disease status post left BKA. The patient was discharged from the hospital on 06/06/16 to [facility]. The stitches on the left stump were taken out 2 weeks ago. She reports that the wound has been opening up when she participated with physical therapy. She returned due to wound dehiscence and infection. She was admitted by the vascular surgery service, Dr. Hill for debridement. Fever 2/2 cellulitis and PNA. Has recurrent fevers CXR showed right lung base opacity. Blood cultures negative x1. Repeat blood cultures if temperature greater than 101. Patient has a port. Ct Vanco and azactam started 07/09. Reconsulted ID, added Flagyl Enterocutaneous fistula. -Per vascular surgery, for further surgical intervention. Optimize nutrition with PO and TPN -wd care Infected left stump: Patient status post BKA on 05/02/16. - Surgery following. S/P debridement. Wound cultures growing Klebsiella ESBL positive and Morganella. -Patient was followed by ID. She was treated with IV Zerbaxa per ID, Micro with sensitivity testing on Zerbaxa and Avycaz . Antibiotics have since been discontinued. Monitor off antibiotics. - Dilaudid IV for breakthrough pain. Continue Percocet. - Management as per vascular surgery s/p wound vac Scattered face and extremity lesions. Not painful. Unremarkable coags, platelet count and liver ultrasound. Stable continue to monitor. Advised to avoid picking on it Fungal rash Patient with blanchable erythema in sacral region with satellite lesions observed. Switched to nystatin powder 07/10 Patient c/o vaginal itching. Apply fungal cream to this area. Right leg pain: Ultrasound negative for DVT. Soft tissue swelling. Continue PT. Continue pain control with Percocet and dilaudid. Hypercoagulable state: History of ischemic bowel and severe peripheral vascular disease. - Continue Xarelto Anxiety and depression: - worsening depression. Patient expresses outbursts of crying on Seroquel and Zoloft. We will reconsult psychiatry Hypokalemia: Replace and monitor. COPD: Breathing treatments as needed. Stable. 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 C diff negative. Stool studies showed no WBC's and culture is negative resume Imodium as needed. Severe protein-calorie malnutrition As evidenced by albumen of 1.8. Patient currently on TPN and being followed by dietitian. GERD: Continue PPI Thrush. Stable. Mycelex montserrat Pulmonary nodule. Rpt CT in 6 mos GI prophylaxis: PPI. Stool softener PRN constipation. DVT PPx: Xarelto Discharge Planning Patient will need intermediate card tender TPN as outpatient - to help arrange placement. No accepting facility. Not stable for discharge Problem Qualifiers (1) HTN (hypertension): Qualified Code: I10 - Essential hypertension (2) Diarrhea: Qualified Code: R19.7 - Diarrhea, unspecified type Dusty Benson MD Jul 15, 2016 16:27
[2016-07-15] MEDS: CLINIMIX E 4.25/25 1000 mL- </= 42 mls/hr IV-CENTRAL SCH ×3 (17:41)
[2016-07-15 20:00] VITALS: BP 115/58; PULSE 74; RESP 16; TEMP 99.2; O2SAT 95
[2016-07-15] MEDS: CLINIMIX E 5/25 2000 mL- >42 mls/hr IV-CENTRAL SCH ×3 (21:22)
[2016-07-15] MEDS: GABAPENTIN 100 MG CAP PO SCH (21:36)
[2016-07-16] VITALS: BP 105/51; PULSE 86; RESP 18; TEMP 98.4; O2SAT 95
[2016-07-16] MEDS: AZTREONAM INJ 1,000 MG in SODIUM CHLORIDE 0.9% INJ 100 ML IV SCH ×3 (01:08→19:08)
[2016-07-16] MEDS: HYDROmorphone HCL PF 1 MG/ML VIAL IV PUSH PRN ×2 (01:09→19:08)
[2016-07-16] MEDS: SODIUM CHLORIDE 0.9% FLUSH 5 ML FLUSH IV FLUSH PRN (01:10)
[2016-07-16 04:00] VITALS: BP 150/72; PULSE 81; RESP 20; TEMP 99.1; O2SAT 95
[2016-07-16] MEDS: VANCOMYCIN 1,000 MG/NS 250 ML IV SCH ×2 (05:38)
[2016-07-16] MEDS: CLOTRIMAZOLE 10 MG TROCHE BUCCAL SCH ×4 (05:40→22:16)
[2016-07-16] MEDS: ACYCLOVIR 5% CREAM 5 GM TUBE TOPICAL SCH ×2 (05:41→10:30)
[2016-07-16] MEDS: metroNIDAZOLE 500 MG TAB PO SCH ×3 (05:41→22:15)
[2016-07-16] MEDS: ACYCLOVIR 200 MG CAP PO SCH ×3 (05:41→22:15)
[2016-07-16] MEDS: ACETAMINOPHEN/HYDROcodone 325 MG/5 MG TAB PO PRN (06:04)
[2016-07-16 08:00] VITALS: BP 115/85; PULSE 79; RESP 17; TEMP 98.3; O2SAT 95
[2016-07-16] MEDS: COLLAGENASE OINT 30 GM TUBE TOP SCH (10:30)
[2016-07-16] MEDS: CALCIUM/VITAMIN D 250 MG/125 U TAB PO SCH ×2 (10:30→22:15)
[2016-07-16] MEDS: SODIUM CHLORIDE 0.9% FLUSH 5 ML FLUSH IV FLUSH SCH ×2 (10:30→21:00)
[2016-07-16] MEDS: CLOTRIMAZOLE 1% CREAM 15 GM TOPICAL SCH ×4 (10:30→22:17)
[2016-07-16] MEDS: RIVAROXABAN 20 MG TAB PO SCH (10:30)
[2016-07-16] MEDS: MAGNESIUM OXIDE 400 MG TAB PO SCH ×2 (10:30→22:14)
[2016-07-16] MEDS: CALCITRIOL 0.25 MCG CAP PO SCH (10:30)
[2016-07-16] MEDS: FERROUS SULFATE 325 MG (65 MG ELEMENTAL IRON) TAB PO SCH (10:30)
[2016-07-16] MEDS: LACTOBACILLUS ACIDOPHILUS TAB PO SCH ×3 (10:30→18:00)
[2016-07-16] MEDS: NYSTATIN 100,000 U/GM PWD 15 GM BTL TOPICAL SCH ×2 (10:30→22:15)
[2016-07-16] MEDS: DILTIAZEM-CD 120 MG CAP ER PO SCH (10:30)
[2016-07-16] MEDS: PANTOPRAZOLE SOD 20 MG DELAYED RELEASE TAB PO SCH ×2 (10:30→22:14)
[2016-07-16] MEDS: QUEtiapine FUMARATE 25 MG TAB PO SCH (10:30)
[2016-07-16] MEDS ORDERED: NALOXONE HCL 0.4 MG/ML AMP IV PRN (11:00)
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
[2016-07-16] MEDS: NYSTAT/DIPHENHY/LIDO MOUTHWASH (Adult) 120ML SWISH-SWAL SCH ×4 (11:45→22:14)
[2016-07-16 12:47] VITALS: BP 114/61; PULSE 98; RESP 16; TEMP 97.1; O2SAT 96
--- NOTE | 2016-07-16 13:48 | HHI.IDPN ---
Subjective Subjective Remarks Notes reviewed No fever Has one (+) BC with GPC - taken from the port Peripehral BC negative so far Initially admitted for infected L BKA stump - underwent debridement and received course of Abx Last seen by me Jun 23 Reconsult now for fevers Started having fevers Jul 09, more fevers since 07/13 Not coughing much now CXR with basal infiltrate UA ok C diff negative Stump looks good Noted to have rash on face about 4 days ago, states it is not painful, itchy Antibiotics Azactam Vancomycin Flagyl Acyclovir Lines Port Past Medical History 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 Vital Signs Date Time Temp Pulse Resp B/P Pulse Ox O2 Delivery O2 Flow Rate FiO2 07/16/16 12:47 97.1 98 16 114/61 96 07/16/16 08:00 98.3 79 17 115/85 95 07/16/16 04:00 99.1 81 20 150/72 95 07/16/16 00:00 98.4 86 18 105/51 95 07/15/16 20:00 99.2 74 16 115/58 95 07/15/16 20:00 Room Air 07/15/16 16:43 Room Air 21 07/15/16 16:00 99.6 93 18 110/59 93 07/15/16 14:51 Room Air 21 07/15/16 07/15/16 07/16/16 15:00 23:00 07:00 Intake Total 360 ml 240 ml 1951 ml Output Total 1500 ml 0 ml 200 ml Balance -1140 ml 240 ml 1751 ml Intake Oral 360 ml 240 ml 240 ml IV Total 350 ml TPN/PPN 1361 ml Output Urine Total 1500 ml 0 ml Stool Total 200 ml # Voids 5 2 # Bowel Movements 4 0 1 . Laboratory Tests Test 07/15/16 10:45 Sodium Level 140 MEQ/L Potassium Level 3.8 MEQ/L Chloride Level 110 MEQ/L Carbon Dioxide Level 24.5 MEQ/L Anion Gap 6 MEQ/L Blood Urea Nitrogen 13 MG/DL Creatinine 0.40 MG/DL Estimat Glomerular Filtration 158 ML/MIN Rate Random Glucose 120 MG/DL Calcium Level 8.3 MG/DL Magnesium Level 1.6 MG/DL Microbiology Date/Time Procedure Status Source Growth 07/15/16 07:00 Aerobic Blood Culture - Preliminary Resulted Blood Other Staph Sp Coagulase Negative 07/15/16 07:00 Anaerobic Blood Culture - Preliminary Resulted Blood Other NO GROWTH IN 1 DAY Imaging Liver Ultrasound 07/12/16 0000 Signed Impressions: Service Date/Time: Tuesday, July 12, 2016 18:07 - CONCLUSION: 1. No acute abnormality demonstrated. 2. Heterogeneous liver without measurable mass. 3. Small and heterogeneous spleen without a measurable mass. 4. Cortical thinning and scarring of the right kidney. 5. Previous cholecystectomy. Calixto Woodruff MD Chest CT 07/09/16 0000 Signed Impressions: Service Date/Time: Saturday, July 09, 2016 14:43 - CONCLUSION: 1. Small right pleural effusion and minimal right basilar consolidation. 2. 6 mm left basilar nodule. Followup CT chest 6 months recommended. Florian Pepper MD Chest X-Ray 07/08/16 0000 Signed Impressions: Service Date/Time: Friday, July 08, 2016 16:26 - CONCLUSION: Chronic right lung base opacity unchanged. No new pulmonary opacity. Alexandru Lynch MD Lower Extremity Ultrasound 06/25/16 0000 Signed Impressions: Service Date/Time: Saturday, June 25, 2016 15:56 - CONCLUSION: Negative exam with no evidence of deep venous thrombosis. Soft tissue edema. Mike Leija MD Port Line Insertion 06/20/16 0000 Signed Impressions: Service Date/Time: Monday, June 20, 2016 08:53 - CONCLUSION: Uncomplicated ultrasound and fluoroscopic guided implanted central venous port catheter placement as described in detail above. An 8 [employer] port was placed. Kevan Salgado Jr., MD Chest X-Ray 06/17/16 0000 Signed Impressions: Service Date/Time: Friday, June 17, 2016 14:12 - CONCLUSION: Right base infiltrate and small effusion. Calixto Woodruff MD Physical Exam GENERAL: awakens easily, alert, not in respiratory distress. SKIN: Warm and dry. Has flat red macules with dry centers on R side of her face, and in the back, on R, did not seem to cross midline, no pustules or vesicles noted, mostly dry now, ?some crusting in the back rash HEENT: [place] conjunctiva. No petechia or hemorrhage. No scleral icterus. Moist oral mucosa. NO lesions in mouth; has red dry rash at corner R mouth. Has some crusted lesions in her lower eyelid medially L eye NECK: Supple and not tender, no meningeal signs. No lymphadenopathy. CARDIOVASCULAR: Regular rate and rhythm. No murmur, no rub. RESPIRATORY: Coarse BS tatyana. Port L upper chest looks ok, currently accessed. ABDOMEN: Soft, nondistended. There is a midline scar, and there are 3 small fistula openings that is draining yellow fluid. There is maceration of skin around her midline scar likely due to the soaked dressing sitting on her fistula. There is mild tenderness on palpation of the abdomen especially in the midline. Bowel sounds present and normoactive. No guarding. No rebound. No organomegaly. EXTREMITIES: LBKA stump mostly healed except on the lateral portion where there is still a 1 inch wound with some slough, no purulence, no redness noted. NEUROLOGICAL: Grossly non-focal PSYCH: Calm and cooperative LINE: Port looks ok. Assessment & Plan Remarks IMPRESSION Infection LBKA stump, C/S Klebsiella ESBL+ and Morganella - S/P debridement - S/P Rx Multiple Abx allergy - has tolerated Cephalosporins in the past PVD Previous abdominal OR for ischemic bowel, has fistula - has increased output Cough, better Fevers, etiology? better - has one (+) BC from the port, ?significance Rash on face and back, does not seem to cross midline, rash is dry now, and I did not see the beginning rash, ?zoster - but patient states rash is not painful RECOMMENDATION On Vanco and Azactam Continue Flagyl Repeat BC from the port Wound care for the EC fistula Monitor temps Monitor progress Follow rash Will follow with you Sara Greenfield MD Jul 16, 2016 13:48
[2016-07-16 16:30] VITALS: BP 114/56; PULSE 100; RESP 16; TEMP 99.6; O2SAT 94
--- NOTE | 2016-07-16 16:47 | HHI.PR ---
Subjective Remarks Follow-up fever. MAXIMUM TEMPERATURE 99.2. No new complaints. Requesting Benadryl for itching. Discussed with RN Objective Vitals Vital Signs Date Time Temp Pulse Resp B/P Pulse Ox O2 Delivery O2 Flow Rate FiO2 07/16/16 12:47 97.1 98 16 114/61 96 07/16/16 08:00 98.3 79 17 115/85 95 07/16/16 04:00 99.1 81 20 150/72 95 07/16/16 00:00 98.4 86 18 105/51 95 07/15/16 20:00 99.2 74 16 115/58 95 07/15/16 20:00 Room Air I/O 07/15/16 07/15/16 07/15/16 07/16/16 07/16/16 07/16/16 06:59 14:59 22:59 06:59 14:59 22:59 Intake Total 210 ml 360 ml 240 ml 1951 ml 529 ml Output Total 200 ml 1500 ml 0 ml 200 ml 40 ml Balance 10 ml -1140 ml 240 ml 1751 ml 489 ml Intake Oral 210 ml 360 ml 240 ml 240 ml IV Total 350 ml TPN/PPN 1361 ml 529 ml Output Urine Total 200 ml 1500 ml 0 ml Stool Total 200 ml Drainage Total 40 ml # Voids 5 2 # Bowel Movements 4 0 1 Result Diagram: 07/13/16 0601 07/15/16 1045 Objective Remarks GENERAL: Chronically ill-appearing patient. SKIN: Abdomen with covered dressing. Tender warm inflamed skin right to the abd wound. Tongue shows improving inflammation of papillae. Stable scattered red macular lesions on the face and extremities NCAT HEENT: DOMO CARDIOVASCULAR: Regular rate and rhythm without murmurs, gallops, or rubs. RESPIRATORY: Clear to auscultation. Breath sounds equal bilaterally. No wheezes , rales, or rhonchi. GASTROINTESTINAL: Abdomen soft, non tender, non distended. No guarding. Martin wound photo manager in place MUSCULOSKELETAL: Left BKA wound healing no infection NEUROLOGICAL: Awake and following commands. Moving all extremities. Normal speech. Procedures Left stump debridement by Dr. Hill on 06/15/16 A/P Problem List: (1) Infection of amputation stump Status: Resolved (2) Enterocutaneous fistula Status: Chronic (3) Hypercoagulable state Status: Chronic (4) HTN (hypertension) Status: Chronic (5) Anxiety about health Status: Chronic (6) Diarrhea Status: Acute (7) Severe protein-calorie malnutrition Status: Acute (8) Fungal skin infection Status: Acute (9) Herpes simplex Status: Acute (10) Transient lingual papillitis Status: Acute (11) Hospital acquired PNA Status: Acute Assessment and Plan The patient is a 70-year-old female with a medical history significant for ischemic bowel with resection and development of chronic enterocutaneous fistula , asthma, depression, COPD, severe peripheral vascular disease status post left BKA. The patient was discharged from the hospital on 06/06/16 to a residential facility for rehabilitation. The stitches on the left stump were taken out 2 weeks ago. She reports that the wound has been opening up when she participated with physical therapy. She returned due to wound dehiscence and infection. She was admitted by the vascular surgery service, Dr. Hill for debridement. Fever 2/2 cellulitis and PNA. CXR showed right lung base opacity. Blood cultures + GPC /2. More blood cultures from port ordered. Ct Vanco and azactam started 07/09. Reconsulted ID, added Flagyl Enterocutaneous fistula. -Per vascular surgery, no further surgical intervention. Optimize nutrition with PO and TPN -wd care Infected left stump: Patient status post BKA on 05/02/16. - Surgery following. S/P debridement. Wound cultures growing Klebsiella ESBL positive and Morganella. -Patient was followed by ID. She was treated with IV Zerbaxa per ID, Micro with sensitivity testing on Zerbaxa and Avycaz . Antibiotics have since been discontinued. Monitor off antibiotics. - Dilaudid IV for breakthrough pain. Continue Percocet. - Management as per vascular surgery s/p wound vac Scattered face and extremity lesions. Not painful. Unremarkable coags, platelet count and liver ultrasound. Stable continue to monitor. Advised to avoid picking on it Fungal rash Patient with blanchable erythema in sacral region with satellite lesions observed. Switched to nystatin powder 07/10 Patient c/o vaginal itching. Apply fungal cream to this area. Right leg pain: Ultrasound negative for DVT. Soft tissue swelling. Continue PT. Continue pain control with Percocet and dilaudid. Hypercoagulable state: History of ischemic bowel and severe peripheral vascular disease. - Continue Xarelto Anxiety and depression: - worsening depression. Patient with outbursts of crying on Seroquel and Zoloft. Dw psychiatry increase Zoloft pt refused cymbalta Hypokalemia: Replace and monitor. COPD: Breathing treatments as needed. Stable. 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 C diff negative. Stool studies showed no WBC's and culture is negative resume Imodium as needed. Severe protein-calorie malnutrition As evidenced by albumen of 1.8. Patient currently on TPN and being followed by dietitian. GERD: Continue PPI Thrush. Stable. Mycelex montserrat Pulmonary nodule. Rpt CT in 6 mos GI prophylaxis: PPI. Stool softener PRN constipation. DVT PPx: Xarelto Discharge Planning Patient will need terminal carman TPN as outpatient - to help arrange placement. No accepting facility. Not stable for discharge Problem Qualifiers (1) HTN (hypertension): Qualified Code: I10 - Essential hypertension (2) Diarrhea: Qualified Code: R19.7 - Diarrhea, unspecified type Dusty Benson MD Jul 16, 2016 16:47 Dusty Benson MD Jul 16, 2016 16:47
[2016-07-16 20:00] VITALS: BP 117/55; PULSE 96; RESP 16; TEMP 100; O2SAT 93
[2016-07-16] MEDS: CLINIMIX E 5/25 2000 mL- >42 mls/hr IV-CENTRAL SCH ×3 (22:02)
[2016-07-16] MEDS: FAT EMULSION 20% INJ 250 ML (Twice weekly over 8 hours) IV-CENTRAL SCH (22:02)
[2016-07-16] MEDS: GABAPENTIN 100 MG CAP PO SCH (22:14)
[2016-07-17] VITALS: BP 134/79; PULSE 96; RESP 18; TEMP 99; O2SAT 94
[2016-07-17] MEDS: VANCOMYCIN 1,000 MG/NS 250 ML IV SCH ×4 (00:03→16:49)
[2016-07-17] MEDS: ACETAMINOPHEN/HYDROcodone 325 MG/10 MG TAB PO PRN ×3 (00:04→16:49)
[2016-07-17] MEDS: HYDROmorphone HCL PF 1 MG/ML VIAL IV PUSH PRN ×3 (02:08→21:02)
[2016-07-17] MEDS: AZTREONAM INJ 1,000 MG in SODIUM CHLORIDE 0.9% INJ 100 ML IV SCH ×3 (02:08→18:41)
[2016-07-17 04:00] VITALS: BP 119/85; PULSE 85; RESP 17; TEMP 98.2; O2SAT 94
[2016-07-17] MEDS: ACYCLOVIR 200 MG CAP PO SCH ×2 (06:09→15:29)
[2016-07-17] MEDS: metroNIDAZOLE 500 MG TAB PO SCH ×3 (06:09→21:01)
[2016-07-17] MEDS: CLOTRIMAZOLE 10 MG TROCHE BUCCAL SCH ×4 (06:10→18:41)
[2016-07-17] MEDS: CLOTRIMAZOLE 1% CREAM 15 GM TOPICAL SCH ×3 (06:10→14:00)
[2016-07-17 08:00] VITALS: BP 119/56; PULSE 92; RESP 24; TEMP 98.5; O2SAT 94
[2016-07-17] MEDS: SODIUM CHLORIDE 0.9% FLUSH 5 ML FLUSH IV FLUSH SCH ×2 (09:00→21:00)
[2016-07-17] MEDS: NYSTAT/DIPHENHY/LIDO MOUTHWASH (Adult) 120ML SWISH-SWAL SCH ×4 (09:00→21:00)
[2016-07-17] MEDS: NYSTATIN 100,000 U/GM PWD 15 GM BTL TOPICAL SCH (09:00)
[2016-07-17] MEDS: DILTIAZEM-CD 120 MG CAP ER PO SCH (10:36)
[2016-07-17] MEDS: CALCITRIOL 0.25 MCG CAP PO SCH (10:36)
[2016-07-17] MEDS: MAGNESIUM OXIDE 400 MG TAB PO SCH ×2 (10:37→21:00)
[2016-07-17] MEDS: RIVAROXABAN 20 MG TAB PO SCH (10:37)
[2016-07-17] MEDS: LACTOBACILLUS ACIDOPHILUS TAB PO SCH ×3 (10:37→18:41)
[2016-07-17] MEDS: QUEtiapine FUMARATE 25 MG TAB PO SCH (10:37)
[2016-07-17] MEDS: SERTRALINE HCL 100 MG TAB PO SCH (10:37)
[2016-07-17] MEDS: FERROUS SULFATE 325 MG (65 MG ELEMENTAL IRON) TAB PO SCH (10:37)
[2016-07-17] MEDS: CALCIUM/VITAMIN D 250 MG/125 U TAB PO SCH ×2 (10:38→21:00)
[2016-07-17] MEDS: PANTOPRAZOLE SOD 20 MG DELAYED RELEASE TAB PO SCH ×2 (10:38→21:00)
[2016-07-17] MEDS: COLLAGENASE OINT 30 GM TUBE TOP SCH (10:39)
[2016-07-17 12:00] VITALS: BP 130/58; PULSE 93; RESP 22; TEMP 98.1; O2SAT 94
[2016-07-17 16:00] VITALS: BP 127/72; PULSE 94; RESP 20; TEMP 98.7; O2SAT 95
--- NOTE | 2016-07-17 16:28 | HHI.PR ---
Subjective Remarks Follow-up fever. MAXIMUM TEMPERATURE 100. Stable with poor appetite she is trying her best to eat more. Discussed with RN Objective Vitals Vital Signs Date Time Temp Pulse Resp B/P Pulse Ox O2 Delivery O2 Flow Rate FiO2 07/17/16 12:00 98.1 93 22 130/58 94 07/17/16 08:00 98.5 92 24 119/56 94 07/17/16 08:00 Room Air 07/17/16 04:00 98.2 85 17 119/85 94 07/17/16 00:00 99.0 96 18 134/79 94 07/16/16 20:00 100.0 96 16 117/55 93 07/16/16 20:00 Room Air 07/16/16 16:30 99.6 100 16 114/56 94 I/O 07/16/16 07/16/16 07/16/16 07/17/16 07/17/16 07/17/16 07:00 15:00 23:00 07:00 15:00 23:00 Intake Total 1951 ml 360 ml 1009 ml 1722 ml 120 ml Output Total 200 ml 40 ml Balance 1751 ml 360 ml 969 ml 1722 ml 120 ml Intake Oral 240 ml 360 ml 480 ml 240 ml 120 ml IV Total 350 ml 506 ml TPN/PPN 1361 ml 529 ml 726 ml Lipid 250 ml Stool Total 200 ml Drainage Total 40 ml # Voids 2 2 1 1 1 # Bowel Movements 1 2 1 0 1 Result Diagram: 07/13/16 0601 07/17/16 0833 Objective Remarks GENERAL: Chronically ill-appearing patient. SKIN: Abdomen with covered dressing. Tender warm inflamed skin right to the abd wound. Tongue shows improving inflammation of papillae. Stable scattered red macular lesions on the face and extremities NCAT HEENT: DOMO CARDIOVASCULAR: Regular rate and rhythm without murmurs, gallops, or rubs. RESPIRATORY: Clear to auscultation. Breath sounds equal bilaterally. No wheezes , rales, or rhonchi. GASTROINTESTINAL: Abdomen soft, non tender, non distended. No guarding. Martin wound clinique counter manager in place MUSCULOSKELETAL: Left BKA wound healing no infection NEUROLOGICAL: Awake and following commands. Moving all extremities. Procedures Left stump debridement by Dr. Hill on 06/15/16 A/P Problem List: (1) Infection of amputation stump Status: Resolved (2) Enterocutaneous fistula Status: Chronic (3) Hypercoagulable state Status: Chronic (4) HTN (hypertension) Status: Chronic (5) Anxiety about health Status: Chronic (6) Diarrhea Status: Acute (7) Severe protein-calorie malnutrition Status: Acute (8) Fungal skin infection Status: Acute (9) Herpes simplex Status: Acute (10) Transient lingual papillitis Status: Acute (11) Hospital acquired PNA Status: Acute Assessment and Plan The patient is a 70-year-old female with a medical history significant for ischemic bowel with resection and development of chronic enterocutaneous fistula , asthma, depression, COPD, severe peripheral vascular disease status post left BKA. The patient was discharged from the hospital on 06/06/16 to a correction facility for rehabilitation. The stitches on the left stump were taken out 2 weeks ago. She reports that the wound has been opening up when she participated with physical therapy. She returned due to wound dehiscence and infection. She was admitted by the vascular surgery service, Dr. Hill for debridement. Fever 2/2 cellulitis and PNA. CXR showed right lung base opacity. Blood cultures + coag Negative 10/23. More blood cultures from port ordered. Ct Vanco and azactam started 07/09. Continue Flagyl Enterocutaneous fistula. -Per vascular surgery, no further surgical intervention. Optimize nutrition with PO and TPN -wd care Infected left stump: Patient status post BKA on 05/02/16. - Surgery following. S/P debridement. Wound cultures growing Klebsiella ESBL positive and Morganella. -Patient was followed by ID. She was treated with IV Zerbaxa per ID, Micro with sensitivity testing on Zerbaxa and Avycaz . Antibiotics have since been discontinued. Monitor off antibiotics. - Dilaudid IV for breakthrough pain. Continue Percocet. - Management as per vascular surgery s/p wound vac Scattered face and extremity lesions. Not painful. Unremarkable coags, platelet count and liver ultrasound. Stable continue to monitor. Advised to avoid picking on it Fungal rash Patient with blanchable erythema in sacral region with satellite lesions observed. Switched to nystatin powder 07/10 Patient c/o vaginal itching. Apply fungal cream to this area. Right leg pain: Ultrasound negative for DVT. Soft tissue swelling. Continue PT. Continue pain control with Percocet and dilaudid. Hypercoagulable state: History of ischemic bowel and severe peripheral vascular disease. - Continue Xarelto Anxiety and depression: - worsening depression. Patient with outbursts of crying on Seroquel and Zoloft. Dw psychiatry increase Zoloft pt refused cymbalta. Consider Remeron Hypokalemia: Replace and monitor. COPD: Breathing treatments as needed. Stable. 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 C diff negative. Stool studies showed no WBC's and culture is negative resume Imodium as needed. Severe protein-calorie malnutrition As evidenced by albumen of 1.8. Patient currently on TPN and being followed by dietitian. Ensure 1 can by mouth 3 times a day. GERD: Continue PPI Thrush. Stable. Mycelex montserrat Pulmonary nodule. Rpt CT in 6 mos GI prophylaxis: PPI. Stool softener PRN constipation. DVT PPx: Xarelto Discharge Planning Patient will need alf TPN as outpatient - to help arrange placement. No accepting facility. Not stable for discharge Problem Qualifiers (1) HTN (hypertension): Qualified Code: I10 - Essential hypertension (2) Diarrhea: Qualified Code: R19.7 - Diarrhea, unspecified type Dusty Benson MD Jul 17, 2016 16:28
[2016-07-17 20:49] VITALS: BP 112/64; PULSE 92; RESP 16; TEMP 98.7; O2SAT 95
[2016-07-17] MEDS: GABAPENTIN 100 MG CAP PO SCH (21:01)
[2016-07-18] VITALS (7 sets, daily range): BP systolic 94–140; BP diastolic 51–82; PULSE 63–98; RESP 16–20; TEMP 96.5–98.6; O2SAT 93–95
[2016-07-18] MEDS: NYSTATIN 100,000 U/GM PWD 15 GM BTL TOPICAL SCH ×3 (01:34→20:25)
[2016-07-18] MEDS: CLOTRIMAZOLE 1% CREAM 15 GM TOPICAL SCH ×7 (01:35→20:26)
[2016-07-18] MEDS: AZTREONAM INJ 1,000 MG in SODIUM CHLORIDE 0.9% INJ 100 ML IV SCH ×3 (01:35→18:16)
[2016-07-18] MEDS: CLOTRIMAZOLE 10 MG TROCHE BUCCAL SCH ×6 (01:35→20:33)
[2016-07-18] MEDS: ACETAMINOPHEN/HYDROcodone 325 MG/10 MG TAB PO PRN ×5 (01:45→23:33)
[2016-07-18] MEDS: CLINIMIX E 5/25 2000 mL- >42 mls/hr IV-CENTRAL SCH ×6 (02:08→23:23)
[2016-07-18] MEDS: HYDROmorphone HCL PF 1 MG/ML VIAL IV PUSH PRN ×4 (04:03→20:23)
[2016-07-18] MEDS: metroNIDAZOLE 500 MG TAB PO SCH ×3 (06:12→20:33)
[2016-07-18] MEDS: COLLAGENASE OINT 30 GM TUBE TOP SCH (08:32)
[2016-07-18] MEDS: NYSTAT/DIPHENHY/LIDO MOUTHWASH (Adult) 120ML SWISH-SWAL SCH ×4 (08:33→20:22)
[2016-07-18] MEDS: QUEtiapine FUMARATE 25 MG TAB PO SCH (08:34)
[2016-07-18] MEDS: DILTIAZEM-CD 120 MG CAP ER PO SCH (08:34)
[2016-07-18] MEDS: SODIUM CHLORIDE 0.9% FLUSH 5 ML FLUSH IV FLUSH SCH ×2 (08:34→20:24)
[2016-07-18] MEDS: SERTRALINE HCL 100 MG TAB PO SCH (08:36)
[2016-07-18] MEDS: LACTOBACILLUS ACIDOPHILUS TAB PO SCH ×3 (08:40→18:17)
[2016-07-18] MEDS: MAGNESIUM OXIDE 400 MG TAB PO SCH ×2 (08:40→20:23)
[2016-07-18] MEDS: PANTOPRAZOLE SOD 20 MG DELAYED RELEASE TAB PO SCH ×2 (08:41→20:23)
[2016-07-18] MEDS: CALCIUM/VITAMIN D 250 MG/125 U TAB PO SCH ×2 (08:41→20:33)
[2016-07-18] MEDS: RIVAROXABAN 20 MG TAB PO SCH (08:42)
[2016-07-18] MEDS: FERROUS SULFATE 325 MG (65 MG ELEMENTAL IRON) TAB PO SCH (08:42)
[2016-07-18] MEDS: CALCITRIOL 0.25 MCG CAP PO SCH (08:42)
[2016-07-18] MEDS: VANCOMYCIN 1,000 MG/NS 250 ML IV SCH ×2 (10:01)
--- NOTE | 2016-07-18 15:36 | HHI.PR ---
Subjective Remarks Follow-up bacteremia. Repeat blood culture with gram-positive cocci. States she wants to eat. Sat the edge of the bed yesterday. States she wants to get better. Reports of increased jerking movements of the lower extremities. Discussed with RN and ID Objective Vitals Vital Signs Date Time Temp Pulse Resp B/P Pulse Ox O2 Delivery O2 Flow Rate FiO2 07/18/16 12:00 98.5 89 20 128/63 94 07/18/16 10:44 Room Air 07/18/16 10:30 16 07/18/16 08:00 97.5 86 16 118/68 94 07/18/16 04:23 98.4 92 16 119/62 93 07/18/16 01:07 97.4 87 16 140/70 95 07/17/16 21:00 Room Air 07/17/16 20:49 98.7 92 16 112/64 95 07/17/16 17:49 20 07/17/16 16:00 98.7 94 20 127/72 95 I/O 07/17/16 07/17/16 07/17/16 07/18/16 07/18/16 07/18/16 07:00 15:00 23:00 07:00 15:00 23:00 Intake Total 1722 ml 120 ml 240 ml 2197 ml 926 ml Output Total 150 ml 175 ml Balance 1722 ml 120 ml 90 ml 2022 ml 926 ml Intake Oral 240 ml 120 ml 240 ml 240 ml IV Total 506 ml 672 ml 356 ml TPN/PPN 726 ml 1285 ml 570 ml Lipid 250 ml Output Urine Total 150 ml 125 ml Drainage Total 50 ml # Voids 1 1 1 # Bowel Movements 0 1 0 1 Result Diagram: 07/17/16 0833 Objective Remarks GENERAL: Chronically ill-appearing patient. SKIN: Abdomen with covered dressing. Tender warm inflamed skin right to the abd wound. Tongue shows improving inflammation of papillae. Stable scattered red macular lesions on the face and extremities NCAT HEENT: DOMO CARDIOVASCULAR: Regular rate and rhythm without murmurs, gallops, or rubs. RESPIRATORY: Clear to auscultation. Breath sounds equal bilaterally. No wheezes , rales, or rhonchi. GASTROINTESTINAL: Abdomen soft, non tender, non distended. No guarding. Martin wound manager managing in place MUSCULOSKELETAL: Left BKA wound healing no infection. Jerking movements simin LLE NEUROLOGICAL: Awake and following commands. Moving all extremities. Procedures Left stump debridement by Dr. Hill on 06/15/16 A/P Problem List: (1) Infection of amputation stump Status: Resolved (2) Enterocutaneous fistula Status: Chronic (3) Hypercoagulable state Status: Chronic (4) HTN (hypertension) Status: Chronic (5) Anxiety about health Status: Chronic (6) Diarrhea Status: Acute (7) Severe protein-calorie malnutrition Status: Acute (8) Fungal skin infection Status: Acute (9) Herpes simplex Status: Acute (10) Transient lingual papillitis Status: Acute (11) Hospital acquired PNA Status: Acute Assessment and Plan The patient is a 70-year-old female with a medical history significant for ischemic bowel with resection and development of chronic enterocutaneous fistula , asthma, depression, COPD, severe peripheral vascular disease status post left BKA. The patient was discharged from the hospital on 06/06/16 [facility]. The stitches on the left stump were taken out 2 weeks ago. She reports that the wound has been opening up when she participated with physical therapy. She returned due to wound dehiscence and infection. She was admitted by the vascular surgery service, Dr. Hill for debridement. Fever 2/2 cellulitis and PNA. CXR showed right lung base opacity. Blood cultures + coag Negative /. Repeat blood cultures from port growing gram-positive cocci. Discussed with ID, may need port removal await speciation and sensitivity Ct Vanco and azactam started 07/09. Continue Flagyl Enterocutaneous fistula. -Per vascular surgery, no further surgical intervention. Optimize nutrition with PO and TPN -wd care Infected left stump: Patient status post BKA on 05/02/16. - Surgery following. S/P debridement. Wound cultures growing Klebsiella ESBL positive and Morganella. -Patient was followed by ID. She was treated with IV Zerbaxa per ID, Micro with sensitivity testing on Zerbaxa and Avycaz . Antibiotics have since been discontinued. Monitor off antibiotics. - Dilaudid IV for breakthrough pain. Continue Percocet. - Management as per vascular surgery s/p wound vac Scattered face and extremity lesions. Doubt zoster. Unremarkable coags, platelet count and liver ultrasound. Stable continue anti-fungal and monitor. Advised to avoid picking on it Fungal rash Patient with blanchable erythema in sacral region with satellite lesions observed. Switched to nystatin powder 07/10 Patient c/o vaginal itching. Apply fungal cream to this area. Right leg pain: Ultrasound negative for DVT. Soft tissue swelling. Continue PT. Continue pain control with Percocet and dilaudid. Hypercoagulable state: History of ischemic bowel and severe peripheral vascular disease. - Continue Xarelto Anxiety and depression: - worsening depression. Patient with outbursts of crying on Seroquel and Zoloft. Dw psychiatry increase Zoloft pt refused cymbalta. Consider Remeron Hypokalemia: Replace and monitor. COPD: Breathing treatments as needed. Stable. 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 C diff negative. Stool studies showed no WBC's and culture is negative resume Imodium as needed. Severe protein-calorie malnutrition As evidenced by albumen of 1.8. Patient currently on TPN and being followed by dietitian. Ensure 1 can by mouth 3 times a day. GERD: Continue PPI Thrush. Stable. Mycelex montserrat Pulmonary nodule. Rpt CT in 6 mos GI prophylaxis: PPI. Stool softener PRN constipation. DVT PPx: Xarelto Discharge Planning Patient will need ferry terminal agent TPN as outpatient - to help arrange placement. No accepting facility. Not stable for discharge Problem Qualifiers (1) HTN (hypertension): Qualified Code: I10 - Essential hypertension (2) Diarrhea: Qualified Code: R19.7 - Diarrhea, unspecified type Dusty Benson MD Jul 18, 2016 15:36
[2016-07-18 18:05] LABS: AUTOMATED NEUTROPHIL # 7.5 TH/MM3 (1.8-7.7); BASOPHIL # 0.1 TH/MM3 (0-0.2); BASOPHIL % 0.7 % (0.0-2.0); EOSINOPHIL # 0.6 TH/MM3 (0-0.4); EOSINOPHIL % 5.7 % (0.0-4.0); HEMATOCRIT 30.7 % (35.0-46.0); HEMO FLAGS DIFF FINAL; LYMPH % 18.4 % (9.0-44.0); LYMPHOCYTE # 2.1 TH/MM3 (1.0-4.8); MEAN CELL VOLUME 96.2 FL (80.0-100.0); MEAN CORPUSCULAR HEMOGLOBIN 31.1 PG (27.0-34.0); MEAN CORPUSCULAR HGB CONC 32.3 % (32.0-36.0); MONO % 8.9 % (0.0-8.0); NEUT % 66.3 % (16.0-70.0); PLATELET COUNT 488 TH/MM3 (150-450); RED BLOOD COUNT 3.19 MIL/MM3 (4.00-5.30); RED CELL DISTRIBUTION WIDTH 19.6 % (11.6-17.2); WHITE BLOOD COUNT 11.3 TH/MM3 (4.0-11.0)
[2016-07-18 18:30] LABS: BICARBONATE 24.5 MEQ/L (21.0-32.0); MAGNESIUM 1.8 MG/DL (1.5-2.5)
[2016-07-18] MEDS ORDERED: POTASSIUM CHLORIDE 20 MEQ CONTROLLED RELEASE TAB PO ONE (18:45)
[2016-07-18] MEDS: GABAPENTIN 100 MG CAP PO SCH (20:23)
[2016-07-18] MEDS: diphenhydrAMINE HCL ELIXIR 12.5 MG/5 ML CUP PO PRN (20:23)
[2016-07-19 00:18] VITALS: BP 106/69; PULSE 95; RESP 18; TEMP 98.7; O2SAT 95
[2016-07-19] MEDS: AZTREONAM INJ 1,000 MG in SODIUM CHLORIDE 0.9% INJ 100 ML IV SCH ×2 (02:31→08:36)
[2016-07-19] MEDS: HYDROmorphone HCL PF 1 MG/ML VIAL IV PUSH PRN ×5 (02:53→23:39)
[2016-07-19 04:21] VITALS: BP 119/67; PULSE 104; RESP 20; TEMP 99.1; O2SAT 92
[2016-07-19] MEDS: VANCOMYCIN 1,000 MG/NS 250 ML IV SCH ×4 (05:24→23:34)
[2016-07-19] MEDS: metroNIDAZOLE 500 MG TAB PO SCH ×3 (05:24→21:46)
[2016-07-19] MEDS: CLOTRIMAZOLE 10 MG TROCHE BUCCAL SCH ×5 (05:24→23:34)
[2016-07-19] MEDS: CLOTRIMAZOLE 1% CREAM 15 GM TOPICAL SCH ×5 (05:25→21:47)
[2016-07-19] MEDS: ACETAMINOPHEN/HYDROcodone 325 MG/10 MG TAB PO PRN ×4 (05:55→21:46)
[2016-07-19 07:35] LABS: AUTOMATED NEUTROPHIL # 7.1 TH/MM3 (1.8-7.7); BASOPHIL # 0.1 TH/MM3 (0-0.2); BASOPHIL % 0.9 % (0.0-2.0); EOSINOPHIL # 0.8 TH/MM3 (0-0.4); EOSINOPHIL % 6.8 % (0.0-4.0); HEMATOCRIT 30.1 % (35.0-46.0); HEMO FLAGS DIFF FINAL; LYMPH % 19.9 % (9.0-44.0); LYMPHOCYTE # 2.3 TH/MM3 (1.0-4.8); MEAN CELL VOLUME 96.8 FL (80.0-100.0); MEAN CORPUSCULAR HEMOGLOBIN 31.6 PG (27.0-34.0); MEAN CORPUSCULAR HGB CONC 32.7 % (32.0-36.0); MONO % 10.3 % (0.0-8.0); NEUT % 62.1 % (16.0-70.0); PLATELET COUNT 482 TH/MM3 (150-450); RED BLOOD COUNT 3.12 MIL/MM3 (4.00-5.30); RED CELL DISTRIBUTION WIDTH 19.3 % (11.6-17.2); WHITE BLOOD COUNT 11.5 TH/MM3 (4.0-11.0)
[2016-07-19 07:50] LABS: BICARBONATE 23.7 MEQ/L (21.0-32.0); MAGNESIUM 1.9 MG/DL (1.5-2.5); POTASSIUM 3.8 MEQ/L (3.5-5.1)
[2016-07-19 08:00] VITALS: BP 112/57; PULSE 94; RESP 20; TEMP 99.3; O2SAT 94
[2016-07-19] MEDS: PANTOPRAZOLE SOD 20 MG DELAYED RELEASE TAB PO SCH ×2 (08:33→21:45)
[2016-07-19] MEDS: QUEtiapine FUMARATE 25 MG TAB PO SCH (08:33)
[2016-07-19] MEDS: CALCIUM/VITAMIN D 250 MG/125 U TAB PO SCH ×2 (08:33→21:45)
[2016-07-19] MEDS: CALCITRIOL 0.25 MCG CAP PO SCH (08:33)
[2016-07-19] MEDS: LACTOBACILLUS ACIDOPHILUS TAB PO SCH ×3 (08:33→16:59)
[2016-07-19] MEDS: RIVAROXABAN 20 MG TAB PO SCH (08:33)
[2016-07-19] MEDS: FERROUS SULFATE 325 MG (65 MG ELEMENTAL IRON) TAB PO SCH (08:33)
[2016-07-19] MEDS: MAGNESIUM OXIDE 400 MG TAB PO SCH ×2 (08:33→21:46)
[2016-07-19] MEDS: DILTIAZEM-CD 120 MG CAP ER PO SCH (08:34)
[2016-07-19] MEDS: NYSTAT/DIPHENHY/LIDO MOUTHWASH (Adult) 120ML SWISH-SWAL SCH ×4 (08:34→23:34)
[2016-07-19] MEDS: SERTRALINE HCL 100 MG TAB PO SCH (08:34)
[2016-07-19] MEDS: SODIUM CHLORIDE 0.9% FLUSH 5 ML FLUSH IV FLUSH SCH ×2 (08:35→21:00)
[2016-07-19] MEDS: NYSTATIN 100,000 U/GM PWD 15 GM BTL TOPICAL SCH ×2 (08:36→21:47)
[2016-07-19] MEDS: COLLAGENASE OINT 30 GM TUBE TOP SCH (08:37)
[2016-07-19 12:00] VITALS: BP 123/75; PULSE 105; RESP 20; TEMP 98.2; O2SAT 94
[2016-07-19] MEDS: ONDANSETRON HCL 4 MG/2 ML VIAL IV PUSH PRN (13:31)
--- NOTE | 2016-07-19 14:00 | HHI.IDPN ---
Subjective Subjective Remarks Notes reviewed C/O worsening rash face, back and has new ones on her fingers, painful No fever 07/15 BC with Staph hominis 07/16 Repeat BC from port Coag Neg Staph no ID yet Initially admitted for infected L BKA stump - underwent debridement and received course of Abx Last seen by me Jun 23 Reconsult now for fevers Started having fevers Jul 09, more fevers since 07/13 Not coughing much now CXR with basal infiltrate UA ok C diff negative Stump looks good Noted to have rash on face about 4 days ago, states it is not painful, itchy Antibiotics Azactam Vancomycin Flagyl Acyclovir Lines Port Past Medical History 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 Vital Signs Date Time Temp Pulse Resp B/P Pulse Ox O2 Delivery O2 Flow Rate FiO2 07/19/16 12:45 16 07/19/16 12:00 98.2 105 20 123/75 94 07/19/16 09:42 Room Air 07/19/16 08:59 18 07/19/16 08:00 99.3 94 20 112/57 94 07/19/16 04:21 99.1 104 20 119/67 92 07/19/16 00:18 98.7 95 18 106/69 95 07/18/16 21:00 Room Air 07/18/16 20:59 96.5 95 20 118/74 93 07/18/16 16:49 98.6 98 20 134/82 94 07/18/16 16:00 98.6 98 20 134/82 94 07/18/16 07/18/16 07/19/16 15:00 23:00 07:00 Intake Total 1906 ml 400 ml 1671 ml Output Total 520 ml 1375 ml Balance 1906 ml -120 ml 296 ml Intake Oral 980 ml 400 ml 520 ml IV Total 356 ml 269 ml TPN/PPN 570 ml 882 ml Output Urine Total 520 ml 900 ml Stool Total 400 ml Drainage Total 75 ml # Voids 2 # Bowel Movements 1 0 2 . Laboratory Tests Test 07/18/16 07/19/16 17:20 06:47 White Blood Count 11.3 TH/MM3 11.5 TH/MM3 Red Blood Count 3.19 MIL/MM3 3.12 MIL/MM3 Hemoglobin 9.9 GM/DL 9.8 GM/DL Hematocrit 30.7 % 30.1 % Mean Corpuscular Volume 96.2 FL 96.8 FL Mean Corpuscular Hemoglobin 31.1 PG 31.6 PG Mean Corpuscular Hemoglobin 32.3 % 32.7 % Concent Red Cell Distribution Width 19.6 % 19.3 % Platelet Count 488 TH/MM3 482 TH/MM3 Mean Platelet Volume 8.4 FL 8.2 FL Neutrophils (%) (Auto) 66.3 % 62.1 % Lymphocytes (%) (Auto) 18.4 % 19.9 % Monocytes (%) (Auto) 8.9 % 10.3 % Eosinophils (%) (Auto) 5.7 % 6.8 % Basophils (%) (Auto) 0.7 % 0.9 % Neutrophils # (Auto) 7.5 TH/MM3 7.1 TH/MM3 Lymphocytes # (Auto) 2.1 TH/MM3 2.3 TH/MM3 Monocytes # (Auto) 1.0 TH/MM3 1.2 TH/MM3 Eosinophils # (Auto) 0.6 TH/MM3 0.8 TH/MM3 Basophils # (Auto) 0.1 TH/MM3 0.1 TH/MM3 CBC Comment DIFF FINAL DIFF FINAL Differential Comment Laboratory Tests Test 07/18/16 07/19/16 17:30 06:47 Sodium Level 142 MEQ/L 142 MEQ/L Potassium Level 3.0 MEQ/L 3.8 MEQ/L Chloride Level 111 MEQ/L 113 MEQ/L Carbon Dioxide Level 24.5 MEQ/L 23.7 MEQ/L Anion Gap 7 MEQ/L 5 MEQ/L Blood Urea Nitrogen 17 MG/DL 17 MG/DL Creatinine 0.41 MG/DL 0.38 MG/DL Estimat Glomerular Filtration 153 ML/MIN 167 ML/MIN Rate Random Glucose 131 MG/DL 133 MG/DL Calcium Level 8.4 MG/DL 8.4 MG/DL Magnesium Level 1.8 MG/DL 1.9 MG/DL Thyroid Stimulating Hormone 2.120 uIU/ML 3rd Gen Microbiology Date/Time Procedure Status Source Growth 07/16/16 16:35 Aerobic Blood Culture - Preliminary Resulted Blood Other Staph Sp Coagulase Negative 07/16/16 16:35 Anaerobic Blood Culture - Preliminary Resulted Gram Positive Cocci Imaging Liver Ultrasound 07/12/16 0000 Signed Impressions: Service Date/Time: Tuesday, July 12, 2016 18:07 - CONCLUSION: 1. No acute abnormality demonstrated. 2. Heterogeneous liver without measurable mass. 3. Small and heterogeneous spleen without a measurable mass. 4. Cortical thinning and scarring of the right kidney. 5. Previous cholecystectomy. Calixto Woodruff MD Chest CT 07/09/16 0000 Signed Impressions: Service Date/Time: Saturday, July 09, 2016 14:43 - CONCLUSION: 1. Small right pleural effusion and minimal right basilar consolidation. 2. 6 mm left basilar nodule. Followup CT chest 6 months recommended. Florian Pepper MD Chest X-Ray 07/08/16 0000 Signed Impressions: Service Date/Time: Friday, July 08, 2016 16:26 - CONCLUSION: Chronic right lung base opacity unchanged. No new pulmonary opacity. Alexandru Lynch MD Lower Extremity Ultrasound 06/25/16 0000 Signed Impressions: Service Date/Time: Saturday, June 25, 2016 15:56 - CONCLUSION: Negative exam with no evidence of deep venous thrombosis. Soft tissue edema. Mike Leija MD Port Line Insertion 06/20/16 0000 Signed Impressions: Service Date/Time: Monday, June 20, 2016 08:53 - CONCLUSION: Uncomplicated ultrasound and fluoroscopic guided implanted central venous port catheter placement as described in detail above. An 8 [employer] port was placed. Kevan Salgado Jr., MD Chest X-Ray 06/17/16 0000 Signed Impressions: Service Date/Time: Friday, June 17, 2016 14:12 - CONCLUSION: Right base infiltrate and small effusion. Calixto Woodruff MD Physical Exam GENERAL: awake and alert. NAD SKIN: Warm and dry. Rash on R face all coalesced, and has rash on other side of face, worse on side of her lip. Rash in her back looks worse, some looks pustular. rash in her fingers look vesicular, and painful HEENT: [place] conjunctiva. No petechia or hemorrhage. No scleral icterus. Moist oral mucosa. NECK: Supple and not tender, no meningeal signs. No lymphadenopathy. CARDIOVASCULAR: Regular rate and rhythm. No murmur, no rub. RESPIRATORY: Coarse BS attyana. Port L upper chest looks ok, currently accessed. ABDOMEN: Soft, nondistended. Has collection bag on her fistula, drainage looks like SB output. There is mild tenderness on palpation of the abdomen especially in the midline. Bowel sounds present and normoactive. No guarding. No rebound. No organomegaly. EXTREMITIES: LBKA stump with dry intact dressing. NEUROLOGICAL: Grossly non-focal PSYCH: Calm and cooperative LINE: Port looks ok. Assessment & Plan Remarks IMPRESSION Infection LBKA stump, C/S Klebsiella ESBL+ and Morganella - S/P debridement - S/P Rx Multiple Abx allergy - has tolerated Cephalosporins in the past PVD Previous abdominal OR for ischemic bowel, has fistula - has increased output Cough, better Fevers, etiology? better - has one (+) BC from the port, ?significance Rash on face and back, looks worse, now looking more like zoster, and disseminating - ?worse after acyclovir stopped RECOMMENDATION Continue Vancomycin Stop Azactam Continue Flagyl Restart Acyclovir - give IV Get viral culture - I obtained the culture from her back Follow C/S isolation Explained plan to the patient D/W Dr Benson D/W Sara Beasley MD Jul 19, 2016 13:59
--- NOTE | 2016-07-19 14:11 | HHI.PR ---
Subjective Remarks Follow-up bacteremia. Was vomiting earlier. Reports of tender vesicles simin on fingers dw ID disseminated Herpes zoster Dw RN Objective Vitals Vital Signs Date Time Temp Pulse Resp B/P Pulse Ox O2 Delivery O2 Flow Rate FiO2 07/19/16 12:45 16 07/19/16 12:00 98.2 105 20 123/75 94 07/19/16 09:42 Room Air 07/19/16 08:59 18 07/19/16 08:00 99.3 94 20 112/57 94 07/19/16 04:21 99.1 104 20 119/67 92 07/19/16 00:18 98.7 95 18 106/69 95 07/18/16 21:00 Room Air 07/18/16 20:59 96.5 95 20 118/74 93 07/18/16 16:49 98.6 98 20 134/82 94 07/18/16 16:00 98.6 98 20 134/82 94 I/O 07/18/16 07/18/16 07/18/16 07/19/16 07/19/16 07/19/16 07:00 15:00 23:00 07:00 15:00 23:00 Intake Total 2197 ml 1906 ml 400 ml 1671 ml Output Total 175 ml 520 ml 1375 ml Balance 2022 ml 1906 ml -120 ml 296 ml Intake Oral 240 ml 980 ml 400 ml 520 ml IV Total 672 ml 356 ml 269 ml TPN/PPN 1285 ml 570 ml 882 ml Output Urine Total 125 ml 520 ml 900 ml Stool Total 400 ml Drainage Total 50 ml 75 ml # Voids 1 2 # Bowel Movements 1 1 0 2 Result Diagram: 07/19/16 0647 07/19/16 0647 Imaging Last Impressions Liver Ultrasound 07/12/16 0000 Signed Impressions: Service Date/Time: Tuesday, July 12, 2016 18:07 - CONCLUSION: 1. No acute abnormality demonstrated. 2. Heterogeneous liver without measurable mass. 3. Small and heterogeneous spleen without a measurable mass. 4. Cortical thinning and scarring of the right kidney. 5. Previous cholecystectomy. Calixto Woodruff MD Chest CT 07/09/16 0000 Signed Impressions: Service Date/Time: Saturday, July 09, 2016 14:43 - CONCLUSION: 1. Small right pleural effusion and minimal right basilar consolidation. 2. 6 mm left basilar nodule. Followup CT chest 6 months recommended. Florian Pepper MD Chest X-Ray 07/08/16 0000 Signed Impressions: Service Date/Time: Friday, July 08, 2016 16:26 - CONCLUSION: Chronic right lung base opacity unchanged. No new pulmonary opacity. Alexandru Lynch MD Lower Extremity Ultrasound 06/25/16 0000 Signed Impressions: Service Date/Time: Saturday, June 25, 2016 15:56 - CONCLUSION: Negative exam with no evidence of deep venous thrombosis. Soft tissue edema. Mike Leija MD Port Line Insertion 06/20/16 0000 Signed Impressions: Service Date/Time: Monday, June 20, 2016 08:53 - CONCLUSION: Uncomplicated ultrasound and fluoroscopic guided implanted central venous port catheter placement as described in detail above. An 8 [employer] port was placed. Kevan Salgado Jr., MD Objective Remarks GENERAL: Chronically ill-appearing patient. SKIN: tender vesicles fingers. Tinea cruris. Worsening rash face and right upper back some pustular NCAT HEENT: [place] CARDIOVASCULAR: Regular rate and rhythm without murmurs, gallops, or rubs. RESPIRATORY: Clear to auscultation. Breath sounds equal bilaterally. No wheezes , rales, or rhonchi. GASTROINTESTINAL: Abdomen soft, non tender, non distended. No guarding. [facility] wound aerospace project manager noted stool leakage MUSCULOSKELETAL: Left BKA wound healing no infection. No Jerking movements simni LLE NEUROLOGICAL: Awake and following commands. Moving all extremities. Procedures Left stump debridement by Dr. Hill on 06/15/16 A/P Problem List: (1) Infection of amputation stump Status: Resolved (2) Enterocutaneous fistula Status: Chronic (3) Hypercoagulable state Status: Chronic (4) HTN (hypertension) Status: Chronic (5) Anxiety about health Status: Chronic (6) Diarrhea Status: Acute (7) Severe protein-calorie malnutrition Status: Acute (8) Fungal skin infection Status: Acute (9) Transient lingual papillitis Status: Acute (10) Hospital acquired PNA Status: Acute Assessment and Plan The patient is a 70-year-old female with a medical history significant for ischemic bowel with resection and development of chronic enterocutaneous fistula , asthma, depression, COPD, severe peripheral vascular disease status post left BKA. The patient was discharged from the hospital on 06/06/16 to a custodial facility for rehabilitation. The stitches on the left stump were taken out 2 weeks ago. She reports that the wound has been opening up when she participated with physical therapy. She returned due to wound dehiscence and infection. She was admitted by the vascular surgery service, Dr. Hill for debridement. Fever with cellulitis, PNA, disseminated zoster suspect and CLABSI suspect. CXR showed right lung base opacity. Blood cultures 07/[address] hominis 1/2 bottles. Repeat blood cultures from port growing gram-positive cocci one bottle the other with coag negative. Discussed with ID, may need port removal await speciation and sensitivity Ct Vanco and Flagyl dc azactam Enterocutaneous fistula. -Per vascular surgery, no further surgical intervention. Optimize nutrition with PO and TPN -wd care Infected left stump: Patient status post BKA on 05/02/16. - Surgery following. S/P debridement. Wound cultures growing Klebsiella ESBL positive and Morganella s/p tx with zerbaxa - Dilaudid IV for breakthrough pain. Continue Percocet. - Management as per vascular surgery s/p wound vac Disseminated zoster suspect. IV acyclovir started(rash got worse after dc po acyclovir) Fungal rash-cruris and angles of mouth ct nystatin powder to the perineal area ct lotrimin to angles of mouth Right leg pain: Ultrasound negative for DVT. Soft tissue swelling. Continue PT. Continue pain control with Percocet and dilaudid. Hypercoagulable state: History of ischemic bowel and severe peripheral vascular disease. - Continue Xarelto Anxiety and depression: - worsening depression. Patient with outbursts of crying on Seroquel and Zoloft. Dw psychiatry increased Zoloft pt refused cymbalta. Consider Remeron Hypokalemia: Replace and monitor. COPD: Breathing treatments as needed. Stable. 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 C diff negative. Stool studies showed no WBC's and culture is negative resume Imodium as needed. Severe protein-calorie malnutrition As evidenced by albumen of 1.8. Patient currently on TPN and being followed by dietitian. Ensure 1 can by mouth 3 times a day. GERD: Continue PPI Thrush. Stable. Mycelex montserrat Pulmonary nodule. Rpt CT in 6 mos GI prophylaxis: PPI. DVT PPx: Xarelto Discharge Planning Patient will need snf TPN as outpatient - CM to help arrange placement. No accepting facility. Not stable for discharge Problem Qualifiers (1) HTN (hypertension): Qualified Code: I10 - Essential hypertension (2) Diarrhea: Qualified Code: R19.7 - Diarrhea, unspecified type Dusty Benson MD Jul 19, 2016 14:11 (1) HTN (hypertension): Qualified Code: I10 - Essential hypertension (2) Diarrhea: Qualified Code: R19.7 - Diarrhea, unspecified type Dusty Benson MD Jul 19, 2016 14:11
[2016-07-19 16:30] VITALS: BP 137/74; PULSE 86; RESP 20; TEMP 99.1; O2SAT 98
[2016-07-19] MEDS: ACYCLOVIR INJ 500 MG in SODIUM CHLORIDE 0.9% INJ 100 ML IV SCH (16:58)
[2016-07-19 20:55] VITALS: BP 111/66; PULSE 92; RESP 20; TEMP 98.7; O2SAT 96
[2016-07-19] MEDS: FAT EMULSION 20% INJ 250 ML (Twice weekly over 8 hours) IV-CENTRAL SCH (21:44)
[2016-07-19] MEDS: CLINIMIX E 5/25 2000 mL- >42 mls/hr IV-CENTRAL SCH ×3 (21:45)
[2016-07-19] MEDS: GABAPENTIN 100 MG CAP PO SCH (21:46)
[2016-07-20] VITALS: BP 120/63; PULSE 90; RESP 18; TEMP 98.5; O2SAT 94
[2016-07-20] MEDS: ACYCLOVIR INJ 500 MG in SODIUM CHLORIDE 0.9% INJ 100 ML IV SCH ×3 (00:53→15:24)
[2016-07-20] MEDS: ACETAMINOPHEN/HYDROcodone 325 MG/10 MG TAB PO PRN ×5 (01:15→22:07)
[2016-07-20 04:00] VITALS: BP 132/58; PULSE 91; RESP 18; TEMP 98.8; O2SAT 94
[2016-07-20] MEDS: HYDROmorphone HCL PF 1 MG/ML VIAL IV PUSH PRN ×4 (04:05→20:30)
[2016-07-20] MEDS: CLOTRIMAZOLE 1% CREAM 15 GM TOPICAL SCH ×5 (06:00→22:08)
[2016-07-20] MEDS: CLOTRIMAZOLE 10 MG TROCHE BUCCAL SCH ×5 (06:00→20:29)
[2016-07-20] MEDS: metroNIDAZOLE 500 MG TAB PO SCH ×3 (06:20→20:30)
[2016-07-20 06:42] LABS: BICARBONATE 24.3 MEQ/L (21.0-32.0); POTASSIUM 3.4 MEQ/L (3.5-5.1)
[2016-07-20 08:00] VITALS: BP 115/59; PULSE 89; RESP 16; TEMP 98.5; O2SAT 95
[2016-07-20] MEDS: NYSTAT/DIPHENHY/LIDO MOUTHWASH (Adult) 120ML SWISH-SWAL SCH ×6 (09:00→20:30)
[2016-07-20] MEDS: COLLAGENASE OINT 30 GM TUBE TOP SCH (10:03)
[2016-07-20] MEDS: NYSTATIN 100,000 U/GM PWD 15 GM BTL TOPICAL SCH ×2 (10:04→20:29)
[2016-07-20] MEDS: CALCITRIOL 0.25 MCG CAP PO SCH (10:05)
[2016-07-20] MEDS: CALCIUM/VITAMIN D 250 MG/125 U TAB PO SCH ×2 (10:05→20:29)
[2016-07-20] MEDS: LACTOBACILLUS ACIDOPHILUS TAB PO SCH ×3 (10:05→18:05)
[2016-07-20] MEDS: DILTIAZEM-CD 120 MG CAP ER PO SCH (10:05)
[2016-07-20] MEDS: PANTOPRAZOLE SOD 20 MG DELAYED RELEASE TAB PO SCH ×2 (10:06→20:29)
[2016-07-20] MEDS: MAGNESIUM OXIDE 400 MG TAB PO SCH ×2 (10:06→20:30)
[2016-07-20] MEDS: SERTRALINE HCL 100 MG TAB PO SCH (10:06)
[2016-07-20] MEDS: RIVAROXABAN 20 MG TAB PO SCH (10:07)
[2016-07-20] MEDS: FERROUS SULFATE 325 MG (65 MG ELEMENTAL IRON) TAB PO SCH (10:07)
[2016-07-20] MEDS: QUEtiapine FUMARATE 25 MG TAB PO SCH (10:08)
[2016-07-20] MEDS: SODIUM CHLORIDE 0.9% FLUSH 5 ML FLUSH IV FLUSH SCH ×2 (10:08→20:30)
[2016-07-20 11:42] LABS: HSV 1,PCR ND (())
[2016-07-20 12:00] VITALS: BP 122/59; PULSE 92; RESP 18; TEMP 98.7; O2SAT 93
--- NOTE | 2016-07-20 15:17 | HHI.PR ---
Subjective Remarks The patient is extremely tearful and complains of pain and difficulty swallowing secondary to the lesions inside her mouth. She also complains of her fingertips turning. She is frustrated and states that she wants to go home. Objective Vitals Vital Signs Date Time Temp Pulse Resp B/P Pulse Ox O2 Delivery O2 Flow Rate FiO2 07/20/16 12:00 98.7 92 18 122/59 93 07/20/16 09:30 Room Air 07/20/16 08:00 98.5 89 16 115/59 95 07/20/16 04:00 Room Air 07/20/16 04:00 98.8 91 18 132/58 94 07/20/16 00:00 Room Air 07/20/16 00:00 98.5 90 18 120/63 94 07/19/16 20:55 98.7 92 20 111/66 96 07/19/16 20:55 Room Air 07/19/16 16:30 99.1 86 20 137/74 98 I/O 07/19/16 07/19/16 07/19/16 07/20/16 07/20/16 07/20/16 07:00 15:00 23:00 07:00 15:00 23:00 Intake Total 1671 ml 970 ml 1362 ml 1223 ml Output Total 1375 ml 1605 ml Balance 296 ml 970 ml -243 ml 1223 ml Intake Oral 520 ml 360 ml 780 ml 240 ml IV Total 269 ml 104 ml 350 ml TPN/PPN 882 ml 506 ml 512 ml 477 ml Lipid 70 ml 156 ml Output Urine Total 900 ml 1105 ml Stool Total 400 ml Drainage Total 75 ml 500 ml # Voids 2 3 2 # Bowel Movements 2 1 3 Result Diagram: 07/19/16 0647 07/20/16 0603 Objective Remarks GENERAL: Well-nourished, well-developed patient. SKIN: She has vesicles in various stages over her face, chest, and fingertips, and around mouth and inside the mucosa of her mouth. HEAD: Normocephalic. EYES: No scleral icterus. No injection or drainage. NECK: Supple, trachea midline. No JVD or lymphadenopathy. CARDIOVASCULAR: Regular rate and rhythm without murmurs, gallops, or rubs. RESPIRATORY: Breath sounds equal bilaterally. No accessory muscle use. GASTROINTESTINAL: Bowel sounds positive. She has enterocutaneous fistula draining. Abdomen soft, non-tender, nondistended. EXTREMITIES: No cyanosis, or edema. Left BKA, stump with wound at the lateral edge of the previous incision, it is clean. NEUROLOGICAL: Awake, alert, and oriented x 3. Non-focal. Procedures Left stump debridement by Dr. Hill on 06/15/16 A/P Problem List: (1) Infection of amputation stump ICD Code: T87.40 Status: Resolved (2) 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 (3) Hypercoagulable state ICD Code: D68.59 Status: Chronic (4) HTN (hypertension) ICD Code: I10 Status: Chronic (5) Anxiety about health ICD Code: F41.8 Status: Chronic (6) Diarrhea ICD Code: R19.7 Status: Acute (7) Severe protein-calorie malnutrition ICD Code: E43 Status: Acute (8) Fungal skin infection ICD Code: B36.9 Status: Acute (9) Transient lingual papillitis ICD Code: K14.0 Status: Acute (10) Hospital acquired PNA ICD Code: J18.9 Status: Acute (11) Major depressive disorder, recurrent severe without psychotic features ICD Code: F33.2 Status: Acute (12) Disseminated herpes zoster ICD Code: B02.7 Status: Acute Assessment and Plan The patient is a 70-year-old female with a medical history significant for ischemic bowel with resection in Oct 2015 and development of chronic enterocutaneous fistula, asthma, depression, COPD, severe peripheral vascular disease status post left BKA, multiple hospitalizations and readmissions. The patient was discharged from the hospital on 06/06/16 to a correction facility for rehabilitation. The stitches on the left stump were taken out 2 weeks ago. She reports that the wound has been opening up when she participated with physical therapy. She returned due to wound dehiscence and infection. She was admitted by the vascular surgery service, Dr. Hill for debridement. - disseminated zoster- ID ff/Dr. Greenfield - cont IV acyclovir, magic mouthwash, pain control. bottom is excoriated, will order guevara and flexiseal to avoid further skin breakdown. viral culture pending. -Bacteremia - Blood cultures 07/[address] hominis, 07/16 10/23 bottles. pt does have port. on vanc per ID. Ct Vanco and Flagyl dc azactam -Enterocutaneous fistula. per surgery, no further surgical intervention. Optimize nutrition with PO and TPN. wound care. -Infected left BKA stump: Patient status post BKA on 05/02/16. Dr. Hill ff. S/P debridement. Wound cultures growing Klebsiella ESBL positive and Morganella s/p tx with zerbaxa - Dilaudid IV for breakthrough pain. Continue Percocet. - Management as per vascular surgery s/p wound vac and removal, wound appears clean. abx per ID. -Fungal rash/groin - cont -Hypercoagulable state: History of ischemic bowel and severe peripheral vascular disease. - Continue Xarelto -Anxiety and depression: - worsening depression. Patient with outbursts of crying on Seroquel and Zoloft. Dw psychiatry increased Zoloft pt refused cymbalta. Consider Remeron. will consult palliative care for support, pain control, clarication of care goals. -COPD: Breathing treatments as needed. Stable. 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 cont Imodium as needed. -Severe protein-calorie malnutrition- Patient currently on TPN and being followed by dietitian. Ensure 1 can by mouth 3 times a day. -GERD: Continue PPI -Thrush. Mycelex buccal. -Pulmonary nodule. Rpt CT in 6 mos GI prophylaxis: PPI. DVT PPx: Xarelto Problem Qualifiers (1) HTN (hypertension): Qualified Code: I10 - Essential hypertension (2) Diarrhea: Qualified Code: R19.7 - Diarrhea, unspecified type Rachelle Medina MD Jul 20, 2016 15:17
[2016-07-20 16:00] VITALS: BP 137/63; PULSE 104; RESP 20; TEMP 99.1; O2SAT 94
[2016-07-20] MEDS: VANCOMYCIN 1,000 MG/NS 250 ML IV SCH ×2 (18:09)
[2016-07-20] MEDS: CLINIMIX E 5/25 2000 mL- >42 mls/hr IV-CENTRAL SCH ×3 (19:30)
[2016-07-20] MEDS: GABAPENTIN 100 MG CAP PO SCH (20:29)
[2016-07-20 20:30] VITALS: BP 127/77; PULSE 89; RESP 21; TEMP 98.6; O2SAT 97
[2016-07-21] VITALS: BP 121/68; PULSE 92; RESP 18; TEMP 98; O2SAT 96
[2016-07-21] MEDS: ACYCLOVIR INJ 500 MG in SODIUM CHLORIDE 0.9% INJ 100 ML IV SCH ×3 (00:16→16:11)
[2016-07-21] MEDS: HYDROmorphone HCL PF 1 MG/ML VIAL IV PUSH PRN ×4 (00:17→21:02)
[2016-07-21] MEDS: ACETAMINOPHEN/HYDROcodone 325 MG/10 MG TAB PO PRN ×3 (02:27→22:58)
[2016-07-21 04:00] VITALS: BP 111/63; PULSE 89; RESP 20; TEMP 99; O2SAT 93
[2016-07-21] MEDS: metroNIDAZOLE 500 MG TAB PO SCH ×3 (06:26→22:49)
[2016-07-21] MEDS: CLOTRIMAZOLE 10 MG TROCHE BUCCAL SCH ×5 (06:26→22:49)
[2016-07-21] MEDS: CLOTRIMAZOLE 1% CREAM 15 GM TOPICAL SCH ×5 (06:26→22:00)
[2016-07-21 08:00] VITALS: BP 107/57; PULSE 90; RESP 18; TEMP 98.7; O2SAT 92
[2016-07-21] MEDS: SODIUM CHLORIDE 0.9% FLUSH 5 ML FLUSH IV FLUSH SCH ×2 (09:11→20:45)
[2016-07-21] MEDS: LACTOBACILLUS ACIDOPHILUS TAB PO SCH ×3 (09:13→17:36)
[2016-07-21] MEDS: MAGNESIUM OXIDE 400 MG TAB PO SCH ×2 (09:13→20:45)
[2016-07-21] MEDS: DILTIAZEM-CD 120 MG CAP ER PO SCH (09:14)
[2016-07-21] MEDS: CALCIUM/VITAMIN D 250 MG/125 U TAB PO SCH ×2 (09:14→20:45)
[2016-07-21] MEDS: FERROUS SULFATE 325 MG (65 MG ELEMENTAL IRON) TAB PO SCH (09:14)
[2016-07-21] MEDS: PANTOPRAZOLE SOD 20 MG DELAYED RELEASE TAB PO SCH ×2 (09:14→20:45)
[2016-07-21] MEDS: SERTRALINE HCL 100 MG TAB PO SCH (09:14)
[2016-07-21] MEDS: CALCITRIOL 0.25 MCG CAP PO SCH (09:14)
[2016-07-21] MEDS: RIVAROXABAN 20 MG TAB PO SCH (09:14)
[2016-07-21] MEDS: QUEtiapine FUMARATE 25 MG TAB PO SCH (09:14)
[2016-07-21] MEDS: NYSTATIN 100,000 U/GM PWD 15 GM BTL TOPICAL SCH ×2 (09:15→20:50)
[2016-07-21] MEDS: COLLAGENASE OINT 30 GM TUBE TOP SCH (09:16)
[2016-07-21] MEDS: NYSTAT/DIPHENHY/LIDO MOUTHWASH (Adult) 120ML SWISH-SWAL SCH ×4 (09:29→20:47)
[2016-07-21] MEDS: VANCOMYCIN 1,000 MG/NS 250 ML IV SCH ×2 (11:58)
[2016-07-21 12:00] VITALS: BP 105/60; PULSE 104; RESP 18; TEMP 97.5; O2SAT 93
--- NOTE | 2016-07-21 12:33 | HHI.IDPN ---
Subjective Subjective Remarks Notes reviewed D/W RN C/O pain on rash No fever 07/15, 07/16 BC with Staph hominis New (+) BC 07/20 Patient not getting IV Abx via port - has only been getting TPN in her port Initially admitted for infected L BKA stump - underwent debridement and received course of Abx Last seen by me Jun 23 Reconsult now for fevers Started having fevers Jul 09, more fevers since 07/13 Not coughing much now CXR with basal infiltrate UA ok C diff negative Stump looks good Noted to have rash on face about 4 days ago, states it is not painful, itchy Antibiotics Vancomycin Flagyl Acyclovir Lines Port Past Medical History 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 Vital Signs Date Time Temp Pulse Resp B/P Pulse Ox O2 Delivery O2 Flow Rate FiO2 07/21/16 08:00 98.7 90 18 107/57 92 07/21/16 04:00 99.0 89 20 111/63 93 07/21/16 04:00 Room Air 07/21/16 00:00 Room Air 07/21/16 00:00 98.0 92 18 121/68 96 07/20/16 20:30 Room Air 07/20/16 20:30 98.6 89 21 127/77 97 07/20/16 16:00 99.1 104 20 137/63 94 07/20/16 07/20/16 07/21/16 15:00 23:00 07:00 Intake Total 708 ml 988 ml 782 ml Output Total 950 ml Balance 708 ml 988 ml -168 ml Intake Oral 0 ml 400 ml 120 ml IV Total 200 ml 588 ml 100 ml TPN/PPN 508 ml 562 ml Output Urine Total 950 ml # Voids 1 1 4 # Bowel Movements 1 1 2 . Laboratory Tests Test 07/20/16 07/21/16 06:03 04:50 Sodium Level 143 MEQ/L Potassium Level 3.4 MEQ/L Chloride Level 112 MEQ/L Carbon Dioxide Level 24.3 MEQ/L Anion Gap 7 MEQ/L Blood Urea Nitrogen 19 MG/DL Creatinine 0.47 MG/DL 0.48 MG/DL Estimat Glomerular Filtration 131 ML/MIN 128 ML/MIN Rate Random Glucose 123 MG/DL Calcium Level 8.6 MG/DL Microbiology Date/Time Procedure Status Source Growth 07/20/16 01:15 Aerobic Blood Culture - Preliminary Resulted Blood Other Staph Sp Coagulase Negative 07/20/16 01:15 Anaerobic Blood Culture - Preliminary Resulted Blood Other NO GROWTH IN 1 DAY Imaging Liver Ultrasound 07/12/16 0000 Signed Impressions: Service Date/Time: Tuesday, July 12, 2016 18:07 - CONCLUSION: 1. No acute abnormality demonstrated. 2. Heterogeneous liver without measurable mass. 3. Small and heterogeneous spleen without a measurable mass. 4. Cortical thinning and scarring of the right kidney. 5. Previous cholecystectomy. Calixto Woodruff MD Chest CT 07/09/16 0000 Signed Impressions: Service Date/Time: Saturday, July 09, 2016 14:43 - CONCLUSION: 1. Small right pleural effusion and minimal right basilar consolidation. 2. 6 mm left basilar nodule. Followup CT chest 6 months recommended. Florian Pepper MD Chest X-Ray 07/08/16 0000 Signed Impressions: Service Date/Time: Friday, July 08, 2016 16:26 - CONCLUSION: Chronic right lung base opacity unchanged. No new pulmonary opacity. Alexandru Lynch MD Lower Extremity Ultrasound 06/25/16 0000 Signed Impressions: Service Date/Time: Saturday, June 25, 2016 15:56 - CONCLUSION: Negative exam with no evidence of deep venous thrombosis. Soft tissue edema. Mike Leija MD Port Line Insertion 06/20/16 0000 Signed Impressions: Service Date/Time: Monday, June 20, 2016 08:53 - CONCLUSION: Uncomplicated ultrasound and fluoroscopic guided implanted central venous port catheter placement as described in detail above. An 8 [employer] port was placed. Kevan Salgado Jr., MD Chest X-Ray 06/17/16 0000 Signed Impressions: Service Date/Time: Friday, June 17, 2016 14:12 - CONCLUSION: Right base infiltrate and small effusion. Calixto Woodruff MD Physical Exam GENERAL: awake and alert. NAD SKIN: Warm and dry. Rash on R face all coalesced, and has rash on other side of face, worse on side of her lip. Rash in her back looks worse, some looks pustular. Rash in her fingers look vesicular, and painful HEENT: [place] conjunctiva. No petechia or hemorrhage. No scleral icterus. Moist oral mucosa. NECK: Supple and not tender, no meningeal signs. No lymphadenopathy. CARDIOVASCULAR: Regular rate and rhythm. No murmur, no rub. RESPIRATORY: Coarse BS tatyana. Port L upper chest looks ok, currently accessed. ABDOMEN: Soft, nondistended. Has collection bag on her fistula, drainage looks like SB output. There is mild tenderness on palpation of the abdomen especially in the midline. owel sounds present and normoactive. No guarding. No rebound. No organomegaly. EXTREMITIES: LBKA stump with dry intact dressing. NEUROLOGICAL: Grossly non-focal PSYCH: Calm and cooperative LINE: Port looks ok. Assessment & Plan Remarks IMPRESSION Infection LBKA stump, C/S Klebsiella ESBL+ and Morganella - S/P debridement - S/P Rx Multiple Abx allergy - has tolerated Cephalosporins in the past PVD Previous abdominal OR for ischemic bowel, has fistula - has increased output Cough, better Fevers, etiology? better - has one (+) BC from the port, ?significance Rash on face and back, looks worse, now looking more like zoster, and disseminating - ?worse after acyclovir stopped RECOMMENDATION Continue Vancomycin Continue Flagyl Continue Acyclovir Follow C/S Will have the Vanco run through the port Repeat BC this weekend Follow BMP while on Acyclovir Follow C/S D/W Sara Beasley MD Jul 21, 2016 12:33
[2016-07-21 16:00] VITALS: BP 111/64; PULSE 82; RESP 18; TEMP 98; O2SAT 96
--- NOTE | 2016-07-21 16:57 | HHI.PR ---
Subjective Remarks Patient is more comfortable today. States she is sleepy. RN has noticed that she is quite excoriated over her buttocks. Objective Vitals Vital Signs Date Time Temp Pulse Resp B/P Pulse Ox O2 Delivery O2 Flow Rate FiO2 07/21/16 16:00 98.0 82 18 111/64 96 07/21/16 14:45 16 07/21/16 12:00 97.5 104 18 105/60 93 07/21/16 09:00 Room Air 07/21/16 08:00 98.7 90 18 107/57 92 07/21/16 04:00 99.0 89 20 111/63 93 07/21/16 04:00 Room Air 07/21/16 00:00 Room Air 07/21/16 00:00 98.0 92 18 121/68 96 07/20/16 20:30 Room Air 07/20/16 20:30 98.6 89 21 127/77 97 I/O 07/20/16 07/20/16 07/20/16 07/21/16 07/21/16 07/21/16 06:59 14:59 22:59 06:59 14:59 22:59 Intake Total 1223 ml 708 ml 988 ml 782 ml 719 ml Output Total 950 ml Balance 1223 ml 708 ml 988 ml -168 ml 719 ml Intake Oral 240 ml 0 ml 400 ml 120 ml IV Total 350 ml 200 ml 588 ml 100 ml 390 ml TPN/PPN 477 ml 508 ml 562 ml 329 ml Lipid 156 ml Output Urine Total 950 ml # Voids 2 1 1 4 # Bowel Movements 1 1 2 Result Diagram: 07/19/16 0647 07/21/16 0450 Objective Remarks GENERAL: Well-nourished, well-developed patient. SKIN: She has vesicles in various stages over her face, chest, and fingertips, and around mouth and inside the mucosa of her mouth. HEAD: Normocephalic. EYES: No scleral icterus. No injection or drainage. NECK: Supple, trachea midline. No JVD or lymphadenopathy. CARDIOVASCULAR: Regular rate and rhythm without murmurs, gallops, or rubs. RESPIRATORY: Breath sounds equal bilaterally. No accessory muscle use. GASTROINTESTINAL: Bowel sounds positive. She has enterocutaneous fistula draining. Abdomen soft, non-tender, nondistended. EXTREMITIES: No cyanosis, or edema. Left BKA, stump with wound at the lateral edge of the previous incision, it is clean. NEUROLOGICAL: Awake, alert, and oriented x 3. Non-focal. Procedures Left stump debridement by Dr. Hill on 06/15/16 A/P Problem List: (1) Infection of amputation stump ICD Code: T87.40 Status: Resolved (2) 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 (3) Hypercoagulable state ICD Code: D68.59 Status: Chronic (4) HTN (hypertension) ICD Code: I10 Status: Chronic (5) Anxiety about health ICD Code: F41.8 Status: Chronic (6) Diarrhea ICD Code: R19.7 Status: Acute (7) Severe protein-calorie malnutrition ICD Code: E43 Status: Acute (8) Fungal skin infection ICD Code: B36.9 Status: Acute (9) Transient lingual papillitis ICD Code: K14.0 Status: Acute (10) Hospital acquired PNA ICD Code: J18.9 Status: Acute (11) Major depressive disorder, recurrent severe without psychotic features ICD Code: F33.2 Status: Acute (12) Disseminated herpes zoster ICD Code: B02.7 Status: Acute Assessment and Plan The patient is a 70-year-old female with a medical history significant for ischemic bowel with resection in Oct 2015 and development of chronic enterocutaneous fistula, asthma, depression, COPD, severe peripheral vascular disease status post left BKA, multiple hospitalizations and readmissions. The patient was discharged from the hospital on 06/06/16 to a long-term facility for rehabilitation. The stitches on the left stump were taken out 2 weeks ago. She reports that the wound has been opening up when she participated with physical therapy. She returned due to wound dehiscence and infection. She was admitted by the vascular surgery service, Dr. Hill for debridement. - disseminated zoster- ID ff/Dr. Greenfield - cont IV acyclovir, magic mouthwash, pain control. bottom is excoriated, will order guevara and flexiseal to avoid further skin breakdown. viral culture pending. -Bacteremia - Blood cultures 07/[address] hominis, 07/16 1/ bottles. pt does have port. on vanc and Flagyl per ID. -Enterocutaneous fistula. per surgery, no further surgical intervention. Optimize nutrition with PO and TPN. wound care. -Infected left BKA stump: Patient status post BKA on 05/02/16. Dr. Hill ff. S/P debridement. Wound cultures growing Klebsiella ESBL positive and Morganella s/p tx with zerbaxa - Dilaudid IV for breakthrough pain. Continue Percocet. - Management as per vascular surgery s/p wound vac and removal, wound appears clean. abx per ID. -Fungal rash/groin - cont -Hypercoagulable state: History of ischemic bowel and severe peripheral vascular disease. - Continue Xarelto -Anxiety and depression: - worsening depression. Patient with outbursts of crying on Seroquel and Zoloft. Dw psychiatry increased Zoloft pt refused cymbalta. Consider Remeron. will consult palliative care for support, pain control, clarication of care goals. -COPD: Breathing treatments as needed. Stable. 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 cont Imodium as needed. -Severe protein-calorie malnutrition- Patient currently on TPN and being followed by dietitian. Ensure 1 can by mouth 3 times a day. -Skin care. She has excoriated skin over the buttock, abdomen and perineum. Continue anti-fungal cream. To prevent further skin breakdown will place a Guevara and flexes to. Discussed with RN. -GERD: Continue PPI -Thrush. Mycelex buccal. -Pulmonary nodule. Rpt CT in 6 mos GI prophylaxis: PPI. DVT PPx: Xarelto Problem Qualifiers (1) HTN (hypertension): Qualified Code: I10 - Essential hypertension (2) Diarrhea: Qualified Code: R19.7 - Diarrhea, unspecified type Rachelle Medina MD Jul 21, 2016 16:57
--- NOTE | 2016-07-21 17:15 | EC ---
Study Study Date:07/21/2016 STUDY CONCLUSIONS SUMMARY - Left ventricle: The cavity size was normal. Wall thickness was normal. Systolic function was normal. The estimated ejection fraction was in the range of 60% to 65%. Wall motion was normal; there were no regional wall motion abnormalities. Doppler parameters are consistent with abnormal left ventricular relaxation (grade 1 diastolic dysfunction). - Aortic valve: Valve area: 1.89cm^2(VTI). Valve area: 1.61cm^2 (Vmax). - Mitral valve: Mild regurgitation. Recommendations: Mobil structure at mitral valve leaflet MELVA strongly recommended If LV function is below 40, please consider prescribing an ACEI or ARB or document rationale for non-use. PROCEDURE DATA STUDY STATUS: Elective. Procedure: Transthoracic echocardiography. Image quality was good. Scanning was performed from the parasternal, apical, and subcostal acoustic windows. Study completion: The patient tolerated the procedure well. Transthoracic echocardiography. M-mode, complete 2D, complete spectral Doppler, and color Doppler. Patient status: Inpatient. CARDIAC ANATOMY LEFT VENTRICLE: The cavity size was normal. Wall thickness was normal. Systolic function was normal. The estimated ejection fraction was in the range of 60% to 65%. Wall motion was normal; there were no regional wall motion abnormalities. Doppler parameters are consistent with abnormal left ventricular relaxation (grade 1 diastolic dysfunction). AORTIC VALVE: Trileaflet; normal thickness leaflets. Doppler: Transvalvular velocity was within the normal range. There was no stenosis. No regurgitation. Valve area: 1.89cm^2(VTI). Valve area: 1.61cm^2 (Vmax). Mean gradient: 5mm Hg (S). Peak gradient: 10mm Hg (S). AORTA: Aortic root: The aortic root was normal in size. MITRAL VALVE: Structurally normal valve. Doppler: Transvalvular velocity was within the normal range. There was no evidence for stenosis. Mild regurgitation. LEFT ATRIUM: The atrium was normal in size. RIGHT VENTRICLE: The cavity size was normal. Wall thickness was normal. PULMONIC VALVE: Doppler: Transvalvular velocity was within the normal range. There was no evidence for stenosis. No regurgitation. TRICUSPID VALVE: Structurally normal valve. Doppler: Transvalvular velocity was within the normal range. No regurgitation. PULMONARY ARTERY: The main pulmonary artery was normal-sized. Systolic pressure was within the normal range. RIGHT ATRIUM: The atrium was normal in size. PERICARDIUM: There was no pericardial effusion. SYSTEMIC VEINS: Inferior vena cava: The vessel was normal in size. BASIC MEASUREMENTS ADULT NORMAL Left ventricle LV internal dimension, ED, chordal level, 49.6 mm 43-52 PLAX LV internal dimension, ES, chordal level, 35.8 mm 23-38 PLAX Fractional shortening, chordal level, PLAX *28 % >29 LV posterior wall thickness, ED 6.83 mm IVS/LVPW ratio, ED 0.93 <1.3 Ventricular septum Septal thickness, ED 6.32 mm Aortic valve Leaflet separation 18 mm 15-26 Aorta Root diameter, ED 27 mm Left atrium Anterior-posterior dimension 33 mm BASIC MEASUREMENTS ADULT NORMAL Aortic valve Leaflet separation 18 mm 15-26 DOPPLER MEASUREMENTS ADULT NORMAL Aortic valve Peak velocity, S 160 cm/s Mean velocity, S 107 cm/s VTI, S 27.4 cm Mean gradient, S 5 mm Hg Peak gradient, S 10 mm Hg Valve area, VTI 1.89 cm^2 Valve area, Vmax 1.61 cm^2 Mitral valve Peak E-wave velocity 70.1 cm/s Peak A-wave velocity 98.2 cm/s Peak E/A ratio 0.7 Pulmonic valve Peak velocity, S 84.4 cm/s LEGEND: Mean values are shown as u=mean value. Asterisk (*) perez values outside specified normal range. Prepared and signed by Alana Alejandre [id number]
--- NOTE | 2016-07-21 17:20 | HHI.HCPN ---
Discussed with Dr. Medina, palliative care will see patient Sunday07/24/16. KODI MAGALLON Jul 21, 2016 17:20
[2016-07-21 20:00] VITALS: BP 136/70; PULSE 87; RESP 16; TEMP 99.6; O2SAT 95
[2016-07-21] MEDS: GABAPENTIN 100 MG CAP PO SCH (20:44)
[2016-07-22] VITALS: BP_SYST 121; BP_SYST 159; BP_DIAS 67; BP_DIAS 95; PULSE 58; PULSE 96; RESP 16; RESP 18; TEMP 97.2; TEMP 98.5; O2SAT 100; O2SAT 94
[2016-07-22] MEDS: ACYCLOVIR INJ 500 MG in SODIUM CHLORIDE 0.9% INJ 100 ML IV SCH ×3 (01:38→16:00)
[2016-07-22] MEDS: HYDROmorphone HCL PF 1 MG/ML VIAL IV PUSH PRN ×5 (01:39→21:33)
[2016-07-22] MEDS: ACETAMINOPHEN/HYDROcodone 325 MG/10 MG TAB PO PRN ×4 (02:41→21:30)
[2016-07-22 04:00] VITALS: BP 113/56; PULSE 88; RESP 18; TEMP 98.3; O2SAT 93
[2016-07-22] MEDS ORDERED: PHARMACY ORDERED LAB XX ONE (04:45)
[2016-07-22] MEDS: CLOTRIMAZOLE 10 MG TROCHE BUCCAL SCH ×5 (05:28→21:30)
[2016-07-22] MEDS: metroNIDAZOLE 500 MG TAB PO SCH ×3 (05:28→21:30)
[2016-07-22] MEDS: VANCOMYCIN 1,000 MG/NS 250 ML IV SCH ×2 (05:28)
[2016-07-22] MEDS: CLOTRIMAZOLE 1% CREAM 15 GM TOPICAL SCH ×5 (05:34→21:48)
[2016-07-22] MEDS: CLINIMIX E 5/25 2000 mL- >42 mls/hr IV-CENTRAL SCH ×6 (07:17→20:00)
[2016-07-22 08:00] VITALS: BP 105/66; PULSE 93; RESP 18; TEMP 95.8; O2SAT 93
[2016-07-22] MEDS: diphenhydrAMINE HCL ELIXIR 12.5 MG/5 ML CUP PO PRN (08:39)
[2016-07-22] MEDS: LACTOBACILLUS ACIDOPHILUS TAB PO SCH ×3 (09:00→16:20)
[2016-07-22] MEDS: COLLAGENASE OINT 30 GM TUBE TOP SCH (09:00)
[2016-07-22] MEDS: SODIUM CHLORIDE 0.9% FLUSH 5 ML FLUSH IV FLUSH SCH ×2 (09:00→21:31)
[2016-07-22] MEDS: NYSTAT/DIPHENHY/LIDO MOUTHWASH (Adult) 120ML SWISH-SWAL SCH ×4 (09:00→21:48)
[2016-07-22] MEDS: NYSTATIN 100,000 U/GM PWD 15 GM BTL TOPICAL SCH ×2 (09:00→21:48)
[2016-07-22] MEDS: CALCIUM/VITAMIN D 250 MG/125 U TAB PO SCH ×2 (10:48→21:31)
[2016-07-22] MEDS: FERROUS SULFATE 325 MG (65 MG ELEMENTAL IRON) TAB PO SCH (10:48)
[2016-07-22] MEDS: PANTOPRAZOLE SOD 20 MG DELAYED RELEASE TAB PO SCH ×2 (10:48→21:31)
[2016-07-22] MEDS: DILTIAZEM-CD 120 MG CAP ER PO SCH (10:48)
[2016-07-22] MEDS: CALCITRIOL 0.25 MCG CAP PO SCH (10:49)
[2016-07-22] MEDS: QUEtiapine FUMARATE 25 MG TAB PO SCH (10:49)
[2016-07-22] MEDS: MAGNESIUM OXIDE 400 MG TAB PO SCH ×2 (10:49→21:32)
[2016-07-22] MEDS: SERTRALINE HCL 100 MG TAB PO SCH (10:49)
[2016-07-22] MEDS: RIVAROXABAN 20 MG TAB PO SCH (10:49)
--- NOTE | 2016-07-22 11:32 | HHI.PR ---
Subjective Remarks Patient more comfortable today. Sleeping. Afebrile. Objective Vitals Vital Signs Date Time Temp Pulse Resp B/P Pulse Ox O2 Delivery O2 Flow Rate FiO2 07/22/16 08:00 95.8 93 18 105/66 93 07/22/16 04:00 98.3 88 18 113/56 93 07/22/16 00:00 98.5 96 16 121/67 94 07/21/16 20:00 Room Air 07/21/16 20:00 99.6 87 16 136/70 95 07/21/16 16:55 14 07/21/16 16:00 98.0 82 18 111/64 96 07/21/16 14:45 16 07/21/16 12:00 97.5 104 18 105/60 93 I/O 07/21/16 07/21/16 07/21/16 07/22/16 07/22/16 07/22/16 07:00 15:00 23:00 07:00 15:00 23:00 Intake Total 782 ml 959 ml 120 ml 240 ml Output Total 950 ml 150 ml 525 ml 400 ml Balance -168 ml 809 ml -405 ml -160 ml Intake Oral 120 ml 240 ml 120 ml 240 ml IV Total 100 ml 390 ml TPN/PPN 562 ml 329 ml Output Urine Total 950 ml 150 ml 225 ml 200 ml Stool Total 300 ml 200 ml # Voids 4 1 # Bowel Movements 2 3 Result Diagram: 07/19/16 0647 07/21/16 0450 Objective Remarks GENERAL: Well-nourished, well-developed patient. SKIN: She has vesicles in various stages over her face, chest, and fingertips, and around mouth and inside the mucosa of her mouth. Some of the lesions are drying and scabbing over. She has a skin tear over her right upper shoulder. Buttocks are also excoriated. HEAD: Normocephalic. EYES: No scleral icterus. No injection or drainage. NECK: Supple, trachea midline. No JVD or lymphadenopathy. CARDIOVASCULAR: Regular rate and rhythm without murmurs, gallops, or rubs. RESPIRATORY: Breath sounds equal bilaterally. No accessory muscle use. GASTROINTESTINAL: Bowel sounds positive. She has enterocutaneous fistula draining. Abdomen soft, non-tender, nondistended. EXTREMITIES: No cyanosis, or edema. Left BKA, stump with wound at the lateral edge of the previous incision, it is clean. NEUROLOGICAL: Awake, alert, and oriented x 3. Non-focal. Procedures Left stump debridement by Dr. Hill on 06/15/16 A/P Problem List: (1) Infection of amputation stump ICD Code: T87.40 Status: Resolved (2) 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 (3) Hypercoagulable state ICD Code: D68.59 Status: Chronic (4) HTN (hypertension) ICD Code: I10 Status: Chronic (5) Anxiety about health ICD Code: F41.8 Status: Chronic (6) Diarrhea ICD Code: R19.7 Status: Acute (7) Severe protein-calorie malnutrition ICD Code: E43 Status: Acute (8) Fungal skin infection ICD Code: B36.9 Status: Acute (9) Transient lingual papillitis ICD Code: K14.0 Status: Acute (10) Hospital acquired PNA ICD Code: J18.9 Status: Acute (11) Major depressive disorder, recurrent severe without psychotic features ICD Code: F33.2 Status: Acute (12) Disseminated herpes zoster ICD Code: B02.7 Status: Acute Assessment and Plan The patient is a 70-year-old female with a medical history significant for ischemic bowel with resection in Oct 2015 and development of chronic enterocutaneous fistula, asthma, depression, COPD, severe peripheral vascular disease status post left BKA, multiple hospitalizations and readmissions. The patient was discharged from the hospital on 06/06/16 to a long-term facility for rehabilitation. The stitches on the left stump were taken out 2 weeks ago. She reports that the wound has been opening up when she participated with physical therapy. She returned due to wound dehiscence and infection. She was admitted by the vascular surgery service, Dr. Hill for debridement. - disseminated zoster- ID ff/Dr. Greenfield - cont IV acyclovir, magic mouthwash, pain control. bottom is excoriated, guevara and flexiseal ordered on 07/21 to avoid further skin breakdown. viral culture pending. -Bacteremia - Blood cultures 07/[address] hominis, 07/16 10/23 bottles. pt does have port. on vanc and Flagyl per ID. -Enterocutaneous fistula. per surgery, no further surgical intervention. Optimize nutrition with PO and TPN. wound care. -Infected left BKA stump: Patient status post BKA on 05/02/16. Dr. Hill ff. S/P debridement. Wound cultures growing Klebsiella ESBL positive and Morganella s/p tx with zerbaxa - Dilaudid IV for breakthrough pain. Continue Percocet. - Management as per vascular surgery s/p wound vac and removal, wound appears clean. abx per ID. -Fungal rash/groin - cont -Hypercoagulable state: History of ischemic bowel and severe peripheral vascular disease. - Continue Xarelto -Anxiety and depression: - worsening depression. Patient with outbursts of crying on Seroquel and Zoloft. Dw psychiatry increased Zoloft pt refused cymbalta. Consider Remeron. I have consulted palliative care for support, pain control, clarication of care goals. -COPD: Breathing treatments as needed. Stable. 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 cont Imodium as needed. -Severe protein-calorie malnutrition- Patient currently on TPN and being followed by dietitian. Ensure 1 can by mouth 3 times a day. -Skin care. She has excoriated skin over the buttock, abdomen and perineum. Continue anti-fungal cream. Has fully and flexes to prevent further skin breakdown. -GERD: Continue PPI -Thrush. Mycelex buccal. -Pulmonary nodule. Rpt CT in 6 mos GI prophylaxis: PPI. DVT PPx: Xarelto Problem Qualifiers (1) HTN (hypertension): Qualified Code: I10 - Essential hypertension (2) Diarrhea: Qualified Code: R19.7 - Diarrhea, unspecified type Rachelle Medina MD Jul 22, 2016 11:32
[2016-07-22 12:00] VITALS: BP 133/75; PULSE 93; RESP 18; TEMP 97.2; O2SAT 95
[2016-07-22] MEDS: ALPRAZolam 0.25 MG TAB PO PRN ×2 (14:48→21:29)
[2016-07-22 16:00] VITALS: BP 125/67; PULSE 95; RESP 18; TEMP 98.2; O2SAT 95
[2016-07-22 20:00] VITALS: BP 140/81; PULSE 101; RESP 19; TEMP 99.3; O2SAT 95
[2016-07-22] MEDS: GABAPENTIN 100 MG CAP PO SCH (21:31)
[2016-07-23] VITALS: BP 116/61; PULSE 91; RESP 16; TEMP 97; O2SAT 94
[2016-07-23] MEDS: HYDROmorphone HCL PF 1 MG/ML VIAL IV PUSH PRN ×5 (01:55→21:28)
[2016-07-23] MEDS: ACYCLOVIR INJ 500 MG in SODIUM CHLORIDE 0.9% INJ 100 ML IV SCH ×2 (01:58→08:00)
[2016-07-23] MEDS: VANCOMYCIN 1,000 MG/NS 250 ML IV SCH ×2 (01:59)
[2016-07-23 04:00] VITALS: BP 122/64; PULSE 89; RESP 16; TEMP 98.2; O2SAT 95
[2016-07-23] MEDS: metroNIDAZOLE 500 MG TAB PO SCH ×3 (05:42→21:25)
[2016-07-23] MEDS: ALPRAZolam 0.25 MG TAB PO PRN ×2 (05:43→10:13)
[2016-07-23] MEDS: CLOTRIMAZOLE 10 MG TROCHE BUCCAL SCH ×4 (05:45→21:26)
[2016-07-23] MEDS: CLOTRIMAZOLE 1% CREAM 15 GM TOPICAL SCH ×4 (06:00→22:00)
[2016-07-23] MEDS: CALCIUM/VITAMIN D 250 MG/125 U TAB PO SCH ×2 (09:00→21:25)
[2016-07-23] MEDS: NYSTAT/DIPHENHY/LIDO MOUTHWASH (Adult) 120ML SWISH-SWAL SCH ×3 (09:00→21:00)
[2016-07-23] MEDS: CALCITRIOL 0.25 MCG CAP PO SCH (09:00)
[2016-07-23] MEDS: SODIUM CHLORIDE 0.9% FLUSH 5 ML FLUSH IV FLUSH SCH ×2 (09:00→21:00)
[2016-07-23] MEDS: MAGNESIUM OXIDE 400 MG TAB PO SCH ×2 (09:00→21:26)
[2016-07-23] MEDS: LACTOBACILLUS ACIDOPHILUS TAB PO SCH ×2 (09:00→13:00)
[2016-07-23] MEDS: NYSTATIN 100,000 U/GM PWD 15 GM BTL TOPICAL SCH ×2 (09:00→21:00)
[2016-07-23] MEDS: RIVAROXABAN 20 MG TAB PO SCH (09:00)
[2016-07-23] MEDS: DILTIAZEM-CD 120 MG CAP ER PO SCH (09:00)
[2016-07-23] MEDS: PANTOPRAZOLE SOD 20 MG DELAYED RELEASE TAB PO SCH ×2 (09:00→21:26)
[2016-07-23] MEDS: SERTRALINE HCL 100 MG TAB PO SCH (09:00)
[2016-07-23] MEDS: QUEtiapine FUMARATE 25 MG TAB PO SCH (09:00)
[2016-07-23] MEDS: FERROUS SULFATE 325 MG (65 MG ELEMENTAL IRON) TAB PO SCH (09:00)
[2016-07-23] MEDS: COLLAGENASE OINT 30 GM TUBE TOP SCH (09:00)
[2016-07-23 12:00] VITALS: BP 92/60; PULSE 96; RESP 18; O2SAT 92
[2016-07-23] MEDS ORDERED: METOCLOPRAMIDE HCL 10 MG/2 ML VIAL IV PUSH PRN (12:30)
--- NOTE | 2016-07-23 14:44 | HHI.PR ---
Subjective Remarks Pt continues to have skin breakdown and pain, especially around the abdomen/ fistula site, and sacrum. AF. She does feel mouth/facial lesions are improving. Objective Vitals Vital Signs Date Time Temp Pulse Resp B/P Pulse Ox O2 Delivery O2 Flow Rate FiO2 07/23/16 12:00 96 18 92/60 92 07/23/16 08:00 95 Room Air 07/23/16 04:00 98.2 89 16 122/64 95 07/23/16 02:47 95 Room Air 07/23/16 00:00 97.0 91 16 116/61 94 07/22/16 20:00 99.3 101 19 140/81 95 07/22/16 16:00 98.2 95 18 125/67 95 I/O 07/22/16 07/22/16 07/22/16 07/23/16 07/23/16 07/23/16 07:00 15:00 23:00 07:00 15:00 23:00 Intake Total 240 ml 1210 ml 80 ml Output Total 400 ml 600 ml 250 ml Balance -160 ml 610 ml -170 ml Intake Oral 240 ml 380 ml 80 ml IV Total 350 ml TPN/PPN 480 ml Output Urine Total 200 ml 400 ml 250 ml Stool Total 200 ml 200 ml Result Diagram: 07/19/16 0647 07/23/16 0553 Objective Remarks GENERAL: Well-nourished, well-developed patient. SKIN: She has vesicles in various stages over her face, chest, and fingertips, and around mouth and inside the mucosa of her mouth. Many of the lesions are drying and scabbing over. She has a skin tear over her right upper shoulder. Blisters on multiple finger tips. B/l groin with skin breakdown and maceration. Buttocks/sacrum large area of skin breakdown and area is macerated/contaminated by stool despite rectal bag. HEAD: Normocephalic. EYES: No scleral icterus. No injection or drainage. NECK: Supple, trachea midline. No JVD or lymphadenopathy. CARDIOVASCULAR: Regular rate and rhythm without murmurs, gallops, or rubs. RESPIRATORY: Breath sounds equal bilaterally. No accessory muscle use. GASTROINTESTINAL: Bowel sounds positive. She has enterocutaneous fistula draining. The skin around the site is breaking down and macerated. Abdomen soft , non-tender, nondistended. EXTREMITIES: No cyanosis, or edema. Left BKA, stump with wound at the lateral edge of the previous incision, it is clean. NEUROLOGICAL: Awake, alert, and oriented x 3. Non-focal. Procedures Left stump debridement by Dr. Hill on 06/15/16 A/P Problem List: (1) Infection of amputation stump ICD Code: T87.40 Status: Resolved (2) 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 (3) Hypercoagulable state ICD Code: D68.59 Status: Chronic (4) HTN (hypertension) ICD Code: I10 Status: Chronic (5) Anxiety about health ICD Code: F41.8 Status: Chronic (6) Diarrhea ICD Code: R19.7 Status: Acute (7) Severe protein-calorie malnutrition ICD Code: E43 Status: Acute (8) Fungal skin infection ICD Code: B36.9 Status: Acute (9) Transient lingual papillitis ICD Code: K14.0 Status: Acute (10) Hospital acquired PNA ICD Code: J18.9 Status: Acute (11) Major depressive disorder, recurrent severe without psychotic features ICD Code: F33.2 Status: Acute (12) Disseminated herpes zoster ICD Code: B02.7 Status: Acute Assessment and Plan The patient is a 70-year-old female with a medical history significant for ischemic bowel with resection in Oct 2015 and development of chronic enterocutaneous fistula, asthma, depression, COPD, severe peripheral vascular disease status post left BKA, multiple hospitalizations and readmissions. The patient was discharged from the hospital on 06/06/16 to a senior living facility for rehabilitation. The stitches on the left stump were taken out 2 weeks ago. She reports that the wound has been opening up when she participated with physical therapy. She returned due to wound dehiscence and infection. She was admitted by the vascular surgery service, Dr. Hill for debridement. - disseminated zoster- ID ff/Dr. Greenfield - cont IV acyclovir, magic mouthwash, pain control. bottom is excoriated, guevara and flexiseal ordered on 07/21 to avoid further skin breakdown. i will discuss with wound care tomorrow if any further recommendations can be made as she continues to have significant maceration and skin breakdown around the enterocutaneous fistula and over buttocks. viral culture pending. -Bacteremia - Blood cultures 07/[address] hominis, 9/25 1/2 bottles. pt does have port. on vanc and Flagyl per ID. -Enterocutaneous fistula. per surgery, no further surgical intervention. Optimize nutrition with PO and TPN. wound care. -Infected left BKA stump: Patient status post BKA on 05/02/16. Dr. Hill ff. S/P debridement. Wound cultures growing Klebsiella ESBL positive and Morganella s/p tx with zerbaxa - Dilaudid IV for breakthrough pain. Continue Percocet. - Management as per vascular surgery s/p wound vac and removal, wound appears clean. abx per ID. -Fungal rash/groin - cont -Hypercoagulable state: History of ischemic bowel and severe peripheral vascular disease. - Continue Xarelto -Anxiety and depression: - worsening depression. Patient with outbursts of crying on Seroquel and Zoloft. Dw psychiatry increased Zoloft pt refused cymbalta. Consider Remeron. I have consulted palliative care for support, pain control, clarication of care goals. -COPD: Breathing treatments as needed. Stable. 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 cont Imodium as needed. -Severe protein-calorie malnutrition- Patient currently on TPN and being followed by dietitian. Ensure 1 can by mouth 3 times a day. -Skin care. She has excoriated skin over the buttock, abdomen and perineum. Continue anti-fungal cream. Has guevara and rectal seal to prevent further skin breakdown. -GERD: Continue PPI -Thrush. Mycelex buccal. -Pulmonary nodule. Rpt CT in 6 mos GI prophylaxis: PPI. DVT PPx: Xarelto Problem Qualifiers (1) HTN (hypertension): Qualified Code: I10 - Essential hypertension (2) Diarrhea: Qualified Code: R19.7 - Diarrhea, unspecified type Rachelle Medina MD Jul 23, 2016 14:44
[2016-07-23 16:00] VITALS: BP 169/79; PULSE 97; RESP 18; TEMP 97.3; O2SAT 98
[2016-07-23 20:00] VITALS: BP 109/62; PULSE 91; RESP 18; TEMP 96.8; O2SAT 92
[2016-07-23] MEDS: CLINIMIX E 5/25 2000 mL- >42 mls/hr IV-CENTRAL SCH ×3 (20:00)
[2016-07-23] MEDS: GABAPENTIN 100 MG CAP PO SCH (21:26)
[2016-07-23] MEDS: FAT EMULSION 20% INJ 250 ML (Twice weekly over 8 hours) IV-CENTRAL SCH (21:28)
[2016-07-23 23:20] VITALS: BP 127/62; PULSE 106; RESP 16; TEMP 99; O2SAT 91
[2016-07-24] VITALS: BP 116/63; PULSE 97; RESP 18; TEMP 97.5; O2SAT 93
[2016-07-24] MEDS: ACETAMINOPHEN/HYDROcodone 325 MG/10 MG TAB PO PRN ×4 (00:17→17:18)
[2016-07-24] MEDS: ACYCLOVIR INJ 500 MG in SODIUM CHLORIDE 0.9% INJ 100 ML IV SCH ×2 (00:17→09:27)
[2016-07-24] MEDS: HYDROmorphone HCL PF 1 MG/ML VIAL IV PUSH PRN ×4 (02:01→21:07)
[2016-07-24 04:00] VITALS: BP 120/66; PULSE 89; RESP 19; TEMP 98.1; O2SAT 92
[2016-07-24] MEDS: CLOTRIMAZOLE 1% CREAM 15 GM TOPICAL SCH ×3 (05:12→22:54)
[2016-07-24] MEDS: metroNIDAZOLE 500 MG TAB PO SCH (05:13)
[2016-07-24] MEDS: CLOTRIMAZOLE 10 MG TROCHE BUCCAL SCH ×5 (05:13→22:53)
[2016-07-24 07:02] LABS: BASOPHIL # 0.1 TH/MM3 (0-0.2); BASOPHIL % 1.3 % (0.0-2.0); EOSINOPHIL # 0.8 TH/MM3 (0-0.4); EOSINOPHIL % 8.8 % (0.0-4.0); HEMATOCRIT 28.4 % (35.0-46.0); HEMO FLAGS DIFF FINAL; LYMPH % 24.2 % (9.0-44.0); LYMPHOCYTE # 2.1 TH/MM3 (1.0-4.8); MEAN CELL VOLUME 95.8 FL (80.0-100.0); MEAN CORPUSCULAR HEMOGLOBIN 32.3 PG (27.0-34.0); MEAN CORPUSCULAR HGB CONC 33.7 % (32.0-36.0); MONO % 8.8 % (0.0-8.0); NEUT % 56.9 % (16.0-70.0); PLATELET COUNT 458 TH/MM3 (150-450); RED BLOOD COUNT 2.97 MIL/MM3 (4.00-5.30); RED CELL DISTRIBUTION WIDTH 19.2 % (11.6-17.2); WHITE BLOOD COUNT 8.8 TH/MM3 (4.0-11.0)
[2016-07-24 07:22] LABS: BICARBONATE 25.3 MEQ/L (21.0-32.0)
[2016-07-24 07:27] LABS: POTASSIUM 2.8 MEQ/L (3.5-5.1)
[2016-07-24 09:00] VITALS: BP 133/74; PULSE 91; RESP 20; TEMP 97; O2SAT 95
[2016-07-24] MEDS: PANTOPRAZOLE SOD 20 MG DELAYED RELEASE TAB PO SCH ×2 (09:26→21:11)
[2016-07-24] MEDS: MAGNESIUM OXIDE 400 MG TAB PO SCH ×2 (09:26→21:11)
[2016-07-24] MEDS: SERTRALINE HCL 100 MG TAB PO SCH (09:26)
[2016-07-24] MEDS: QUEtiapine FUMARATE 25 MG TAB PO SCH (09:26)
[2016-07-24] MEDS: DILTIAZEM-CD 120 MG CAP ER PO SCH (09:27)
[2016-07-24] MEDS: RIVAROXABAN 20 MG TAB PO SCH (09:27)
[2016-07-24] MEDS: FERROUS SULFATE 325 MG (65 MG ELEMENTAL IRON) TAB PO SCH (09:27)
[2016-07-24] MEDS: CALCITRIOL 0.25 MCG CAP PO SCH (09:27)
[2016-07-24] MEDS: CALCIUM/VITAMIN D 250 MG/125 U TAB PO SCH ×2 (09:27→21:10)
[2016-07-24] MEDS: LACTOBACILLUS ACIDOPHILUS TAB PO SCH ×3 (09:27→17:18)
[2016-07-24] MEDS: POTASSIUM CHLOR 20 MEQ PREMIX 100 ML IV SCH ×2 (09:28→12:20)
[2016-07-24] MEDS: SODIUM CHLORIDE 0.9% FLUSH 5 ML FLUSH IV FLUSH SCH ×2 (09:31→21:13)
[2016-07-24] MEDS: COLLAGENASE OINT 30 GM TUBE TOP SCH (09:33)
[2016-07-24] MEDS: NYSTATIN 100,000 U/GM PWD 15 GM BTL TOPICAL SCH ×2 (09:33→21:00)
[2016-07-24] MEDS: NYSTAT/DIPHENHY/LIDO MOUTHWASH (Adult) 120ML SWISH-SWAL SCH ×4 (09:38→21:15)
[2016-07-24] MEDS: RESP: ALBUTEROL 2.5 MG/IPRATROPIUM 0.5 MG NEB (PRN) NEB ×2 (09:57→16:02)
--- NOTE | 2016-07-24 11:56 | PD.CONS ---
Consult Service Palliative Care Consult Requested By Dr. Medina . Primary Care Physician Kathy Byrnes MD . Reason for Consultation a. To assist with evaluation and management of symptoms including: Pain, anxiety, depression b. To assist medical decision maker(s) with: better understanding of current medical conditions; weighing benefits/burdens of medical treatment options; making medical treatment decisions. . HPI History of Present Illness This 71-year-old female has a complex medical history over the past year. The patient was admitted to the hospital and sepsis and shock in October 2015 and was found to have ischemic bowel. She underwent surgery 11/13/15 with resection of some large and small bowel (as well as the gallbladder), but developed complications including an enterocutaneous fistula and required a second resection of bowel on 11/26/15. The patient eventually was able to be sent to SNF , but returned to the hospital again on 03/11/16 with abdominal pain and had infection involving the fistula. That was treated, and she was able to go home briefly. She returned to the hospital on 04/04/16 because of left leg pain that was found to be caused by ischemia. She underwent treatment with TPA and was kept on anticoagulation, and was discharged again. She returned to the hospital on 04/28/16 with gangrene of the left foot, and was found to have multiple thrombi in major vessels. 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 On 06/14/16, while at the nursing facility, the patient was moving in the bed and there was a dehiscence of the left leg stump wound, and she was sent back to the hospital for admission. Couple on arrival at the hospital, she was found to have a temperature of 100.2 , and she was readmitted. 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 Cultures from the stump wound grew both Klebsiella ESBL and a Morganella species. She was taken to the operating room for debridement and placement of a wound VAC. The fistula seemed to finally close on 06/25/16, but it reopened and has remained open since 07/12/16. She again had fever on 07/21/16 , and additional cultures were done. Staphylococcus hominis has been grown in the blood cultures. The patient has developed a worsening rash on her face, upper back, sacral/ buttock area, and now over the past few days worsening with development of bullae on multiple fingertips. The patient thinks there were vesicles on the rash across her back and on her face a week or 2 ago, but those seem to have all collapsed and dried. The patient has had worsening anxiety over the past several months that she has undergone multiple hospitalizations and complications. She has been receiving some PRN Xanax here, and she says that does help, but it is not scheduled. She has also had pain that has worsened, particularly in her abdomen that she relates to the enterocutaneous fistula, and on her skin on the sacral and upper back area, as well as some skin related to the facial rash. She has received intermittent Broadwater 10 mg and Dilaudid 1 mg IV a few times per day, and says they helped temporarily. Palliative Care was consulted to assist with symptom management, and to enter in discussions regarding goals of care in the benefits and burdens of the various illnesses and treatment options. . Function/Cognitive Trajectory Prior to the patient's episode of sepsis/shock in October 2015, she was functioning completely independently and was providing some caregiving for her . She has essentially been in the hospital or in an SNF most of the time since then. With her left BKA a couple months ago, she is obviously nonambulatory now. . Review of Systems Constitutional: COMPLAINS OF: Fever, Weight loss Endocrine: DENIES: Polyuria, Polyphagia Eyes: DENIES: Eye inflammation Ears, nose, mouth, throat: DENIES: Hearing loss, Epistaxis Respiratory: COMPLAINS OF: Cough, DENIES: Hemoptysis, Shortness of breath Cardiovascular: DENIES: Chest pain, Palpitations, Syncope Gastrointestinal: COMPLAINS OF: Abdominal pain, Constipation, DENIES: Diarrhea , Vomiting Genitourinary: DENIES: Hematuria Musculoskeletal: COMPLAINS OF: Joint pain Integumentary: COMPLAINS OF: Rash (including prior vesicles and current fingertip bullae), Non-healing sores (macerated sacral/low back area) Hematologic/Lymphatics: DENIES: Lymphadenopathy Immunologic/Allergic: DENIES: Urticaria Neurologic: DENIES: Localized weakness, Seizures Psychiatric: COMPLAINS OF: Anxiety, Depression, DENIES: Suicidal Ideation Past Family Social History Coded Allergies: Levaquin (Verified Allergy, Severe, Edema, 05/29/16) Penicillin (Unverified Allergy, Intermediate, hives, 03/10/16) Sulfa (Unverified Allergy, Intermediate, hives, 03/10/16) *MDRO Multi-Drug Resistant Organism (Verified Adverse Reaction, Unknown, ) ESBL+Klebsiella (leg-06/15/16) Past Medical History * Multiple debilitating illnesses, surgeries, and complications * Sepsis/shock due to ischemic bowel October 2015 * 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 Past Surgical History * Right mastectomy and reconstruction * Hysterectomy * Ischemic bowel, bowel resection 11/13/15 * Cholecystectomy 11/13/15 * Additional bowel resection and fistula closure 11/26/15 * Port * Left BKA 05/02/16 * Left BKA stump debridement and wound VAC placement 06/16/16 . Current Medications Medications (Trade) Dose Ordered Sig/Shira Route Start Time Stop Time Status Last Admin (NS Flush) 2 ml BID IV FLUSH 06/14/16 21:00 07/24/16 09:31 (NS Flush) 2 ml UNSCH PRN IV FLUSH 06/14/16 17:00 07/16/16 01:10 (Cardizem Cd) 120 mg DAILY PO 06/15/16 09:00 07/24/16 09:27 (Xanax) 0.125 mg Q6H PRN PO 06/14/16 17:45 07/23/16 10:13 (Rocaltrol) 0.25 mcg DAILY PO 06/15/16 09:00 07/24/16 09:27 (Ferrous Sulfate) 325 mg DAILY PO 06/15/16 09:00 07/24/16 09:27 (Neurontin) 100 mg HS PO 06/14/16 21:00 07/23/16 21:26 (Lactinex) 1 tab TID PO 06/14/16 18:00 07/24/16 09:27 (Imodium) 2 mg Q6H PRN PO 06/14/16 17:45 Hold 07/04/16 17:14 (Oscal-D 250-125) 500 mg BID PO 06/14/16 21:00 07/24/16 09:27 (Zofran Odt) 8 mg Q6H PRN PO 06/14/16 18:15 07/08/16 12:37 (Pill Splitter) 1 ea UNSCH PRN OTHER 06/14/16 18:00 (Theragran) 1 tab DAILY PO 06/15/16 12:00 Hold 06/20/16 15:16 (Dilaudid Pf Inj) 1 mg Q4H PRN IV PUSH 06/15/16 14:30 07/24/16 09:21 (Heparin Central Flush) 500 units UNSCH IVF 06/20/16 11:30 06/24/16 05:25 (NS Flush) 5 ml UNSCH PRN IVF 06/20/16 11:30 (Heparin Central Flush) 250 units UNSCH PRN IVF 06/20/16 11:30 (Xarelto) 20 mg DAILY PO 06/21/16 09:00 07/24/16 09:27 (SEROquel) 25 mg DAILY PO 07/08/16 21:00 07/24/16 09:26 (Protonix) 40 mg BID PO 07/09/16 21:00 07/24/16 09:26 (Zofran Inj) 4 mg Q6HR PRN IV PUSH 07/09/16 16:45 07/19/16 13:31 (Mag-Al Plus Susp Liq) 30 ml Q6H PRN PO 07/09/16 16:45 07/09/16 17:19 (Magic Mouthwash Adult Liq) 10 ml QID SWISH-SWAL 07/10/16 19:00 07/24/16 09:38 (Tylenol) 650 mg Q4H PRN PO 07/11/16 05:45 Nystatin 1 applic 1 applic Q12HR TOPICAL 07/11/16 12:00 07/24/16 09:33 Pharmacy Profile Note 0 ml @ 0 mls/hr UNSCH OTHER 07/11/16 10:15 (Vancomycin Inj/ NS 250 ml Inj) 250 ml @ 250 mls/hr Q18H IV 07/13/16 05:00 07/23/16 01:59 (Mag-Ox) 400 mg Q12HR PO 07/13/16 13:45 07/24/16 09:26 (Flagyl) 500 mg Q8HR PO 07/14/16 14:00 07/24/16 05:13 Collagenase 1 applic 1 applic DAILY TOP 07/14/16 13:15 07/24/16 09:33 Multivitamins 10 ml/Folic Acid 1 mg/Amino Acid Electrolyte w/ Calc 2,010.2 ml @ 60 mls/hr Q24H IV-CENTRAL 07/15/16 20:00 07/23/16 20:00 (Liposyn Iii 20% Inj) 250 ml @ 31.25 mls/ hr SuWe@20 IV-CENTRAL 07/16/16 20:00 07/23/16 21:28 (Zoloft) 150 mg DAILY PO 07/17/16 09:00 07/24/16 09:26 (Broadwater 7.5-325 Mg) 1 tab Q4H PRN PO 07/16/16 11:00 (Broadwater 10-325 Mg) 1.5 tab Q4H PRN PO 07/16/16 11:00 07/24/16 05:13 (Narcan Inj) 0.4 mg UNSCH PRN IV 07/16/16 11:00 (Lotrimin 1% Cream) 1 applic Q8HR TOPICAL 07/16/16 17:00 07/24/16 05:12 Diphenhydramine HCl 12.5 mg 12.5 mg Q6H PRN PO 07/16/16 17:00 07/22/16 08:39 (Zovirax Inj/NS Inj) 100 ml @ 100 mls/hr Q8H IV 07/19/16 16:00 07/24/16 09:27 Metoclopramide HCl 5 mg 5 mg Q8H PRN IV PUSH 07/23/16 12:30 (KCl 20 Meq Premix Inj) 100 ml @ 50 mls/hr Q2H IV 07/24/16 09:00 07/24/16 12:59 07/24/16 09:28 Family History The patient's mother of breast cancer, and her father of "a massive heart attack." There is a positive family history for diabetes. . Substance Use Tobacco: One pack per day for many years until her hospitalization in October 2015 Alcohol: Rare Prescription med abuse: None Illicits: None . Psychosocial History The patient was born and raised in [facility], and moved to [place] about 9 years ago. With her prior to all of these hospitalizations. The patient has been twice, was in 2012, and then her current in 2014. She has no children. She has a brother that lives " [place]," and she has a very close friend, Anuradha Christian who is her designated HCS. The patient was involved in some caregiving for her who apparently has had some amputations. . Spiritual/Cultural Factors Evaluation pending . Living Will: Never completed Health Care Surrogate: Copy in medical record Durable Power of Methods And Procedures Analyst: Never completed Health Care Surrogate(s): Primary HCS is her close friend Anuradha Christian, and secondary is her Dwight Wilson. The HCS that is in the record here is not dated. . Today's verbally stated goals: The patient does want to continue aggressive care at this time. She is frustrated by all the complications, but wants to remain a full code and continue all care available for now. She has a good understanding of hospice, as she has been the primary caregiver for 3 of her relatives who were on hospice and at end-of-life. She does not desire hospice services at this time. . Ethical and Legal Issues There are no ethical issues that would impact her care or decision-making at this time. The patient has capacity for decision-making. Should she lose that capacity in the future, she has designated her friend Anuradha Christian as primary HCS, and her Dwight as secondary. . Physical Exam Vital Signs Date Time Temp Pulse Resp B/P Pulse Ox O2 Delivery O2 Flow Rate FiO2 07/24/16 09:00 97.0 91 20 133/74 95 07/24/16 04:00 98.1 89 19 120/66 92 07/24/16 00:00 97.5 97 18 116/63 93 07/23/16 21:30 Room Air 07/23/16 20:00 96.8 91 18 109/62 92 07/23/16 16:00 97.3 97 18 169/79 98 07/23/16 12:00 96 18 92/60 92 07/23/16 07/24/16 19:00 07:00 Intake Total 0 ml 200 ml Output Total 1100 ml 300 ml Balance -1100 ml -100 ml Intake Oral 0 ml 200 ml Output Urine Total 500 ml 300 ml Stool Total 600 ml Exam CONSTITUTIONAL/GENERAL: This is a weak, depressed appearing patient, in no apparent distress. TUBES/LINES/DRAINS: Accessed port, dressing on left BKA stump, large pad/ dressing over central abdomen SKIN: Skin temperature appropriate. Not diaphoretic. The patient has a diffuse , patchy rash involving both sides of her face (she says there were vesicles that have dried up), and a similar patchy rash over the entire upper half of her back. There is macerated/moist redness involving a large, perhaps 15-20 cm , area over her sacrum and upper buttocks. In addition, there are several 2 cm bullae involving fingertips or in the area of the DIP joints of fingers. There are no vesicles or bullae or evidence of rash on her legs or on the right foot. HEAD: Atraumatic. Normocephalic. EYES: Pupils equal and round and reactive. Extraocular motions intact. No scleral icterus. No injection or drainage. Fundi not examined. ENT: Hearing grossly normal. Nose without bleeding or purulent drainage. Throat without visible erythema, exudates, masses, or lesions. NECK: Trachea midline. Supple, nontender. No palpable thyroid enlargement or nodularity. CARDIOVASCULAR: Regular rate and rhythm without murmurs, gallops, or rubs. No JVD. Peripheral pulses symmetric. RESPIRATORY/CHEST: Symmetric, unlabored respirations. Clear to auscultation. Breath sounds equal bilaterally. No wheezes, rales, or rhonchi. GASTROINTESTINAL: Soft, some tenderness across the lower half without guarding or rebound. Large dressing and corset present across the mid abdomen and I did not remove that to examine the fistula. Bowel sounds present GENITOURINARY: Without palpable bladder distension. Hamlin catheter in place. MUSCULOSKELETAL: Extremities without clubbing, cyanosis, or edema. Some tenderness is present following the vesicles/bullae of the fingertips.. No calf tenderness on the right. No mottling or clubbing. LYMPHATICS: No palpable cervical or supraclavicular adenopathy. NEUROLOGICAL: Awake and alert. Motor and sensory grossly within normal limits. Follows commands. Cognitively sharp. Moves all extremities. PSYCHIATRIC: Appears depressed, tearful at times, and has anxiety episodes lasting a couple minutes where she trembles. No apparent hallucinations or other psychotic thought process. . Diagnostic Tests Laboratory Laboratory Tests Test 07/22/16 07/23/16 07/24/16 04:55 05:53 06:19 Vancomycin Level Trough 12.8 MCG/ML (5.0-10.0) Creatinine 0.46 MG/DL 0.49 MG/DL (0.50-1.00) (0.50-1.00) Estimat Glomerular Filtration 134 ML/MIN 125 ML/MIN Rate (>89) (>89) White Blood Count 8.8 TH/MM3 (4.0-11.0) Red Blood Count 2.97 MIL/MM3 (4.00-5.30) Hemoglobin 9.6 GM/DL (11.6-15.3) Hematocrit 28.4 % (35.0-46.0) Mean Corpuscular Volume 95.8 FL (80.0-100.0) Mean Corpuscular Hemoglobin 32.3 PG (27.0-34.0) Mean Corpuscular Hemoglobin 33.7 % Concent (32.0-36.0) Red Cell Distribution Width 19.2 % (11.6-17.2) Platelet Count 458 TH/MM3 (150-450) Mean Platelet Volume 9.3 FL (7.0-11.0) Neutrophils (%) (Auto) 56.9 % (16.0-70.0) Lymphocytes (%) (Auto) 24.2 % (9.0-44.0) Monocytes (%) (Auto) 8.8 % (0.0-8.0) Eosinophils (%) (Auto) 8.8 % (0.0-4.0) Basophils (%) (Auto) 1.3 % (0.0-2.0) Neutrophils # (Auto) 5.0 TH/MM3 (1.8-7.7) Lymphocytes # (Auto) 2.1 TH/MM3 (1.0-4.8) Monocytes # (Auto) 0.8 TH/MM3 (0-0.9) Eosinophils # (Auto) 0.8 TH/MM3 (0-0.4) Basophils # (Auto) 0.1 TH/MM3 (0-0.2) CBC Comment DIFF FINAL Differential Comment Sodium Level 142 MEQ/L (136-145) Potassium Level 2.8 MEQ/L (3.5-5.1) Chloride Level 109 MEQ/L (98-107) Carbon Dioxide Level 25.3 MEQ/L (21.0-32.0) Anion Gap 8 MEQ/L (5-15) Blood Urea Nitrogen 14 MG/DL (7-18) Random Glucose 139 MG/DL (74-106) Calcium Level 8.0 MG/DL (8.5-10.1) Result Diagram: 07/24/1661807/24/16618 Microbiology Microbiology Date/Time Procedure Status Source Growth 07/22/16 04:55 Aerobic Blood Culture - Preliminary Resulted Blood Other NO GROWTH IN 1 DAY 07/22/16 04:55 Anaerobic Blood Culture - Preliminary Resulted Blood Other NO GROWTH IN 1 DAY Imaging Last Impressions Liver Ultrasound 07/12/16 0000 Signed Impressions: Service Date/Time: Tuesday, July 12, 2016 18:07 - CONCLUSION: 1. No acute abnormality demonstrated. 2. Heterogeneous liver without measurable mass. 3. Small and heterogeneous spleen without a measurable mass. 4. Cortical thinning and scarring of the right kidney. 5. Previous cholecystectomy. Calixto Woodruff MD Chest CT 07/09/16 0000 Signed Impressions: Service Date/Time: Saturday, July 09, 2016 14:43 - CONCLUSION: 1. Small right pleural effusion and minimal right basilar consolidation. 2. 6 mm left basilar nodule. Followup CT chest 6 months recommended. Florian Pepper MD Chest X-Ray 07/08/16 0000 Signed Impressions: Service Date/Time: Friday, July 08, 2016 16:26 - CONCLUSION: Chronic right lung base opacity unchanged. No new pulmonary opacity. Alexandru Lynch MD Lower Extremity Ultrasound 06/25/16 0000 Signed Impressions: Service Date/Time: Saturday, June 25, 2016 15:56 - CONCLUSION: Negative exam with no evidence of deep venous thrombosis. Soft tissue edema. Mike Leija MD Port Line Insertion 06/20/16 0000 Signed Impressions: Service Date/Time: Monday, June 20, 2016 08:53 - CONCLUSION: Uncomplicated ultrasound and fluoroscopic guided implanted central venous port catheter placement as described in detail above. An 8 Romansh Power port was placed. Kevan Salgado Jr., MD Procedures Stump debridement and wound VAC placement 06/16/16 TPN . Patient/Family Conference Present at Family Conference: The patient was present with me in her room. . Family Conference Time (mins): 44 Family Conference Location: Bedside Issues Discussed: * Palliative care role, purpose, approach * Hospice care role, purpose, approach * Additional medical, psychosocial, and spiritual history * Patients general health, functional status, and cognitive changes in the months leading up to the current hospitalization * Patient/family understanding of the current medical problems * Patient/family understanding of prognosis * Patients goals of care as best understood from advance directives and/or conversations and/or values * Current medical treatment options and benefits/burdens of those options * Likely scenarios comparing ongoing aggressive care with a transition to comfort measures only * Questions answered to the best of my ability * Palliative care contact information provided . 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 (3) sepsis/shock secondary to ischemic bowel, October 2015 (4) short-bowel syndrome, TPN-dependent (5) rash: Significant exanthem and enanthem with prior vesicles and new/ worsening multiple finger bullae (6) pulmonary nodule on CT scan, 2.6 mm at the left base (7) depression (8) COPD, not oxygen dependent (9) history of breast cancer (10) anxiety (11) anemia Symptom Scale: (1) pain 0-10 Scale: 6 (she has been receiving Broadwater and parenteral hydromorphone) (2) anxiety 0-10 Scale: 4 (she has had occasional doses of Xanax that she says helps, but her anxiety is worsening overall) (3) depression 0-10 Scale: 4 (long-term, was on Celexa at home, now on Zoloft; remains tearful frequently) Pertinent Non-Medical Issues Psychosocial: Second marriage for about 1 year, but most of that time in the hospital or SNF. No children, but has close friend Anuradha. Spiritual: Evaluation pending Legal: The patient has capacity for decision-making, and has designated her friend Anuradha and her Dwight as primary and secondary HCS respectively Ethical issues impacting care: None. . Important Contacts Primary HCS, close friend Anuradha Christian [phone] : Dwight Wilson [phone] . Prognosis She has suffered multiple illnesses, infections, and complications during the last 10 months, and now is TPN dependent every 2 short-bowel syndrome. Her overall prognosis would appear to be poor, and she would be an appropriate hospice candidate if she elected to stop all aggressive care including TPN. . Code Status: Full Code Plan * FULL CODE; The patient does want to continue AGGRESSIVE CARE at this time. She is frustrated by all the complications and the debility caused by pain, anxiety, and depression, but wants to remain a full code and continue all care available for now. She has a good understanding of hospice, as she has been the primary caregiver for 3 of her relatives who were on hospice and at end-of- life. She does not desire hospice services at this time. * GOALS: The patient does want to continue aggressive care at this time. She definitely would like to have the anxiety and pain improved. * DECISION-MAKING: The patient is capacitated for decision making, and has designated her close friend Anuradha Christian and her Dwight Wilson as primary and secondary HCS respectively. * SYMPTOMS: -- Pain: The patient has ongoing abdominal pain as well as pain related to the multiple skin lesions and maceration. She has been receiving PRN hydrocodone and hydromorphone, but would prefer some regularly scheduled pain medicine "so the pain doesn't build up so much before I get a dose of medicine. " I will initiate some scheduled low-dose methadone. -- Anxiety: This has worsened steadily throughout her several months of medical challenges. The small dose of Xanax that she has had occasionally does seem to help, and I believe she would feel better overall if we kept her on a little bit of Xanax; I will initiate scheduled low-dose Xanax. -- Depression: I suspect most of her depression is a combination of some chronic depression (she had been on Celexa for quite some time at home) and some situational depression at this time. She remains on Zoloft. -- Rash: She has an impressive rash, and it includes some worsening/ expanding bullae on multiple fingers now. In discussion with Dr. Francine Greenfield, she is considering requesting a biopsy of a skin lesion. A circular/bullous rashes like this can have etiologies that include drug reaction, infection ( bacterial or vital), ischemia, metabolic diseases like porphyrias, a pemphigoid disease, and others. Since it is worsening, I would certainly agree that tissue and fluid sampling may be beneficial in arriving at a specific diagnosis. * Palliative Care will continue to follow the patient during this hospitalization. . Time Spent Total Floor Time (mins): 90 Face to Face Time (mins): 50 >50% Counseling/Coord of Care: Yes (also discussed with Dr. Greenfield) Thank you for the opportunity to participate in the care of Ms. Wilson. Attestation To help prompt me to consider important information that might be impacting today's encounter and assessment, information from prior notes written by myself or my colleagues may have been "brought forward" into today's note. My signature on this note, however, is an attestation that I personally performed the exam, history, and/or decision-making noted today, and, unless otherwise indicated, the interactions with patient, family, and staff as well as the review of records all occurred today. I also attest that the listed assessment and stated plan reflect my best clinical judgment today based on the combination of historical information, prior notes, and today's exam/ interactions. When time spent is documented, it refers only to time spent today by the signer, or if indicated, combined time spent today by collaborating physician/nurse practitioner. Dalila Edouard MD Jul 24, 2016 11:56
[2016-07-24 12:00] VITALS: BP 122/65; PULSE 107; RESP 18; TEMP 98; O2SAT 93
[2016-07-24] MEDS: VANCOMYCIN 1,000 MG/NS 250 ML IV SCH ×2 (12:19)
[2016-07-24] MEDS: diphenhydrAMINE HCL ELIXIR 12.5 MG/5 ML CUP PO PRN (12:20)
[2016-07-24] MEDS: ALPRAZolam 0.25 MG TAB PO PRN (12:21)
--- NOTE | 2016-07-24 12:25 | HHI.IDPN ---
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 Initially admitted for infected L BKA stump - underwent debridement and received course of Abx Last seen by me Jun 23 Reconsult now for fevers Started having fevers Jul 09, more fevers since 07/13 Not coughing much now CXR with basal infiltrate UA ok C diff negative Stump looks good Noted to have rash on face about 4 days ago, states it is not painful, itchy Antibiotics Vancomycin Flagyl Acyclovir Lines Port Past Medical History 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 Vital Signs Date Time Temp Pulse Resp B/P Pulse Ox O2 Delivery O2 Flow Rate FiO2 07/24/16 09:00 97.0 91 20 133/74 95 07/24/16 04:00 98.1 89 19 120/66 92 07/24/16 00:00 97.5 97 18 116/63 93 07/23/16 21:30 Room Air 07/23/16 20:00 96.8 91 18 109/62 92 07/23/16 16:00 97.3 97 18 169/79 98 07/23/16 07/23/16 07/24/16 15:00 23:00 07:00 Intake Total 0 ml 120 ml 80 ml Output Total 1100 ml 150 ml 150 ml Balance -1100 ml -30 ml -70 ml Intake Oral 0 ml 120 ml 80 ml Output Urine Total 500 ml 150 ml 150 ml Stool Total 600 ml . Laboratory Tests Test 07/24/16 06:19 White Blood Count 8.8 TH/MM3 Red Blood Count 2.97 MIL/MM3 Hemoglobin 9.6 GM/DL Hematocrit 28.4 % Mean Corpuscular Volume 95.8 FL Mean Corpuscular Hemoglobin 32.3 PG Mean Corpuscular Hemoglobin 33.7 % Concent Red Cell Distribution Width 19.2 % Platelet Count 458 TH/MM3 Mean Platelet Volume 9.3 FL Neutrophils (%) (Auto) 56.9 % Lymphocytes (%) (Auto) 24.2 % Monocytes (%) (Auto) 8.8 % Eosinophils (%) (Auto) 8.8 % Basophils (%) (Auto) 1.3 % Neutrophils # (Auto) 5.0 TH/MM3 Lymphocytes # (Auto) 2.1 TH/MM3 Monocytes # (Auto) 0.8 TH/MM3 Eosinophils # (Auto) 0.8 TH/MM3 Basophils # (Auto) 0.1 TH/MM3 CBC Comment DIFF FINAL Differential Comment Laboratory Tests Test 07/23/16 07/24/16 05:53 06:19 Creatinine 0.46 MG/DL 0.49 MG/DL Estimat Glomerular Filtration 134 ML/MIN 125 ML/MIN Rate Sodium Level 142 MEQ/L Potassium Level 2.8 MEQ/L Chloride Level 109 MEQ/L Carbon Dioxide Level 25.3 MEQ/L Anion Gap 8 MEQ/L Blood Urea Nitrogen 14 MG/DL Random Glucose 139 MG/DL Calcium Level 8.0 MG/DL Microbiology Date/Time Procedure Status Source Growth 07/22/16 04:55 Aerobic Blood Culture - Preliminary Resulted Blood Other NO GROWTH IN 2 DAYS 07/22/16 04:55 Anaerobic Blood Culture - Preliminary Resulted Blood Other NO GROWTH IN 2 DAYS Imaging Liver Ultrasound 07/12/16 0000 Signed Impressions: Service Date/Time: Tuesday, July 12, 2016 18:07 - CONCLUSION: 1. No acute abnormality demonstrated. 2. Heterogeneous liver without measurable mass. 3. Small and heterogeneous spleen without a measurable mass. 4. Cortical thinning and scarring of the right kidney. 5. Previous cholecystectomy. Calixto Woodruff MD Chest CT 07/09/16 0000 Signed Impressions: Service Date/Time: Saturday, July 09, 2016 14:43 - CONCLUSION: 1. Small right pleural effusion and minimal right basilar consolidation. 2. 6 mm left basilar nodule. Followup CT chest 6 months recommended. Florian Pepper MD Chest X-Ray 07/08/16 0000 Signed Impressions: Service Date/Time: Friday, July 08, 2016 16:26 - CONCLUSION: Chronic right lung base opacity unchanged. No new pulmonary opacity. Alexandru Lynch MD Lower Extremity Ultrasound 06/25/16 0000 Signed Impressions: Service Date/Time: Saturday, June 25, 2016 15:56 - CONCLUSION: Negative exam with no evidence of deep venous thrombosis. Soft tissue edema. Mike Leija MD Port Line Insertion 06/20/16 0000 Signed Impressions: Service Date/Time: Monday, June 20, 2016 08:53 - CONCLUSION: Uncomplicated ultrasound and fluoroscopic guided implanted central venous port catheter placement as described in detail above. An 8 [employer] port was placed. Kevan Salgado Jr., MD Chest X-Ray 06/17/16 0000 Signed Impressions: Service Date/Time: Friday, June 17, 2016 14:12 - CONCLUSION: Right base infiltrate and small effusion. Calixto Woodruff MD Physical Exam GENERAL: awake and alert. NAD SKIN: Warm and dry. Rash on face around eyes, nose lips and chin, red, with some crusting. Rash in back all coalesced, red and some with crusts, same as in her buttocks and also some in the groin areas. Has some kind of chemical dermatitis around her EC fistula Has bullous rash in her fingers both hands. HEENT: [place] conjunctiva. No petechia or hemorrhage. No scleral icterus. Moist oral mucosa. NECK: Supple and not tender, no meningeal signs. No lymphadenopathy. CARDIOVASCULAR: Regular rate and rhythm. No murmur, no rub. RESPIRATORY: Coarse BS tatyana. Port L upper chest looks ok, currently accessed. ABDOMEN: Soft, nondistended. a lot of bilious ouput from her EC fistuyla with dermatitis type redness around this. There is mild tenderness on palpation of the abdomen especially in the midline. No guarding. No rebound. EXTREMITIES: LBKA stump with dry intact dressing. NEUROLOGICAL: Grossly non-focal PSYCH: Calm and cooperative LINE: Port looks ok. Assessment & Plan Remarks IMPRESSION Infection LBKA stump, C/S Klebsiella ESBL+ and Morganella - S/P debridement - S/P Rx Multiple Abx allergy - has tolerated Cephalosporins in the past PVD Previous abdominal OR for ischemic bowel, has fistula - has increased output Cough, better Fevers, etiology? better - has one (+) BC from the port, ?significance Rash on face and back, looks worse, etiology? RECOMMENDATION Continue Vancomycin for Staph hominis Stop Flagyl Stop Acyclovir - VZV negative I have askerd Dr Mary Carrillo to take a look at the rash for a second opinion Per discussion with her: Get fungal BC from port Will ask surgery to do skin biopsy chin and finger lesion Check for nutritional deficiencies Ask ophth to eval L blepharitis Will need removal of port D/W RN D/W Dr Mary Carrillo Explained plan to patient D/W Dr Renee as well (palliative medicine) Time spent about 60 minutes - evaluation of patient (more history and physical examination, reviewing of her chart), discussions with several physicians (Dr Renee and Dr carrillo), as well as discussion with RN, coordinating care and implementing treatment plan, and explaining treatment plan and diagnostic plan with patient Sara Greenfield MD Jul 24, 2016 12:25
--- NOTE | 2016-07-24 13:26 | HHI.PR ---
Subjective Remarks Sleepy today, more comfortable. Objective Vitals Vital Signs Date Time Temp Pulse Resp B/P Pulse Ox O2 Delivery O2 Flow Rate FiO2 07/24/16 12:00 98.0 107 18 122/65 93 07/24/16 09:00 97.0 91 20 133/74 95 07/24/16 04:00 98.1 89 19 120/66 92 07/24/16 00:00 97.5 97 18 116/63 93 07/23/16 21:30 Room Air 07/23/16 20:00 96.8 91 18 109/62 92 07/23/16 16:00 97.3 97 18 169/79 98 I/O 07/23/16 07/23/16 07/23/16 07/24/16 07/24/16 07/24/16 07:00 15:00 23:00 07:00 15:00 23:00 Intake Total 80 ml 0 ml 120 ml 80 ml Output Total 250 ml 1100 ml 150 ml 150 ml Balance -170 ml -1100 ml -30 ml -70 ml Intake Oral 80 ml 0 ml 120 ml 80 ml Output Urine Total 250 ml 500 ml 150 ml 150 ml Stool Total 600 ml Result Diagram: 07/24/1661807/24/16618 Objective Remarks GENERAL: Well-nourished, well-developed patient. SKIN: She has vesicles in various stages over her face, chest, and fingertips, and around mouth and inside the mucosa of her mouth. Many of the lesions are drying and scabbing over. She has a skin tear over her right upper shoulder. Blisters on multiple finger tips. B/l groin with skin breakdown and maceration. HEAD: Normocephalic. EYES: No scleral icterus. No injection or drainage. NECK: Supple, trachea midline. No JVD or lymphadenopathy. CARDIOVASCULAR: Regular rate and rhythm without murmurs, gallops, or rubs. RESPIRATORY: Breath sounds equal bilaterally. No accessory muscle use. GASTROINTESTINAL: Bowel sounds positive. She has enterocutaneous fistula draining. The skin around the site is breaking down and macerated. Abdomen soft , non-tender, nondistended. EXTREMITIES: No cyanosis, or edema. Left BKA, stump with wound at the lateral edge of the previous incision, it is clean. NEUROLOGICAL: Awake, alert, and oriented x 3. Non-focal. Procedures Left stump debridement by Dr. Hill on 06/15/16 A/P Problem List: (1) Infection of amputation stump ICD Code: T87.40 Status: Resolved (2) 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 (3) Hypercoagulable state ICD Code: D68.59 Status: Chronic (4) HTN (hypertension) ICD Code: I10 Status: Chronic (5) Anxiety about health ICD Code: F41.8 Status: Chronic (6) Diarrhea ICD Code: R19.7 Status: Acute (7) Severe protein-calorie malnutrition ICD Code: E43 Status: Acute (8) Fungal skin infection ICD Code: B36.9 Status: Acute (9) Transient lingual papillitis ICD Code: K14.0 Status: Acute (10) Hospital acquired PNA ICD Code: J18.9 Status: Acute (11) Major depressive disorder, recurrent severe without psychotic features ICD Code: F33.2 Status: Acute (12) Disseminated herpes zoster ICD Code: B02.7 Status: Acute Assessment and Plan The patient is a 70-year-old female with a medical history significant for ischemic bowel with resection in Oct 2015 and development of chronic enterocutaneous fistula, asthma, depression, COPD, severe peripheral vascular disease status post left BKA, multiple hospitalizations and readmissions. The patient was discharged from the hospital on 06/06/16 to a longterm facility for rehabilitation. The stitches on the left stump were taken out 2 weeks ago. She reports that the wound has been opening up when she participated with physical therapy. She returned due to wound dehiscence and infection. She was admitted by the vascular surgery service, Dr. Hill for debridement. - disseminated zoster- ID ff/Dr. Greenfield - cont IV acyclovir, magic mouthwash, pain control. bottom is excoriated, guevara and flexiseal ordered on 07/21 to avoid further skin breakdown. She has significant skin breakdown, wound care is following. viral culture pending. -Bacteremia - Blood cultures 07/[address] hominis, 07/16 10/23 bottles. pt does have port. on vanc and Flagyl per ID. -Enterocutaneous fistula. per surgery, no further surgical intervention. Optimize nutrition with PO and TPN. wound care. -Infected left BKA stump: Patient status post BKA on 05/02/16. Dr. J ff. S/P debridement. Wound cultures growing Klebsiella ESBL positive and Morganella s/p tx with zerbaxa - Dilaudid IV for breakthrough pain. Continue Percocet. - Management as per vascular surgery s/p wound vac and removal, wound appears clean. abx per ID. -Fungal rash/groin - cont -Hypercoagulable state: History of ischemic bowel and severe peripheral vascular disease. - Continue Xarelto -Anxiety and depression: - worsening depression. Patient with outbursts of crying on Seroquel and Zoloft. Dw psychiatry increased Zoloft pt refused cymbalta. Consider Remeron. I have consulted palliative care for support, pain control, clarication of care goals. -COPD: Breathing treatments as needed. Stable. 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 cont Imodium as needed. -Severe protein-calorie malnutrition- Patient currently on TPN and being followed by dietitian. Ensure 1 can by mouth 3 times a day. -Skin care. She has excoriated skin over the buttock, abdomen and perineum. Continue anti-fungal cream. Has guevara and rectal seal to prevent further skin breakdown. -GERD: Continue PPI Hypokalemia - give 40 meq Kcl in IV over 4 hrs, repeat BMP a.m. -Thrush. Mycelex buccal. -Pulmonary nodule. Rpt CT in 6 mos GI prophylaxis: PPI. DVT PPx: Xarelto Problem Qualifiers (1) HTN (hypertension): Qualified Code: I10 - Essential hypertension (2) Diarrhea: Qualified Code: R19.7 - Diarrhea, unspecified type Rachelle Medina MD Jul 24, 2016 13:26
[2016-07-24] MEDS: ALPRAZolam 0.25 MG TAB PO SCH ×2 (15:52→22:53)
[2016-07-24 16:00] VITALS: BP 142/69; PULSE 102; RESP 18; TEMP 97.2; O2SAT 97
[2016-07-24] MEDS ORDERED: LIDOCAINE HCL 1% 50 ML VIAL ONE (16:44)
--- NOTE | 2016-07-24 17:31 | PD.ID.CON ---
History of Present Illness Service Infectious Disease Consult Requested By for 2nd opinion. Reason for Consult Evaluation and Mment of rash to determine if infectious etiology such as herpes zoster. Primary Care Physician Kathy Byrnes MD Diagnoses: History of Present Illness Patient known to me from prior admissions. Ms. Wilson is a 70 y/o CF with PMHX significant for ischemic bowel s/p resection and development of chronic enterocutaneous fistula, asthma, depression , COPD, severe peripheral vascular disease status post left BKA. The patient was discharged from the hospital on 06/06/16 to a [facility] facility for rehabilitation. She reportedly had wound at amputation site which opened up especially during physical therapy. Due to concern for wound dehiscence and infection she was admitted by Vascular surgery. Patient has a port for IV access and this grew staph hominis on two separate occasions. She also was treated with antibiotics for ESBL wound infection. Patient has been receiving TPN due to her Enterocutaneous fistula and poor nutritional status. Compared to her prior admissions patient is much thin built and poorly nourished appearing with loss of hair as well. Patient developed a rash on her face involving the corner of her eyes, mouth, ears, back, anal region. Patient also had some blisters that were aspirated and PCR for Herpes sent and negative. is her primary ID MD and has been treating her with Vanco IV for Staph hominis bacteremia and acyclovir and flagyl. Patient does not have a rash on her abdomen or limbs to suggest a drug rash. Also it does not appear to be a rash of disseminated fungal infection. Pertinent positives and negatives: Patient denies any fever Reports burning and at times itching. I was consulted as a second opinion as no lining printer is available at our institution and there is a concern if this rash is of infectious etiology or not. Review of Systems Constitutional: DENIES: Diaphoretic episodes, Fatigue, Fever, Weight gain, Weight loss, Chills, Dizziness, Change in appetite, Night Sweats Endocrine: DENIES: Abnorml menstrual pattern, Heat/cold intolerance, Polydipsia , Polyuria, Polyphagia Eyes: DENIES: Blurred vision, Diplopia, Eye inflammation, Eye pain, Vision loss , Photosensitivity, Double Vision Ears, nose, mouth, throat: DENIES: Tinnitus, Hearing loss, Vertigo, Nasal discharge, Oral lesions, Throat pain, Hoarseness, Ear Pain, Running Nose, Epistaxis, Sinus Pain, Toothache, Odynophagia Respiratory: DENIES: Apneas, Cough, Snoring, Wheezing, Hemoptysis, Sputum production, Shortness of breath Cardiovascular: DENIES: Chest pain, Palpitations, Syncope, Dyspnea on Exertion , PND, Lower Extremity Edema, Orthopnea, Claudication Gastrointestinal: DENIES: Abdominal pain, Black stools, Bloody stools, Constipation, Diarrhea, Nausea, Vomiting, Difficulty Swallowing, Anorexia Genitourinary: DENIES: Abnormal vaginal bleeding, Dysmenorrhea, Dyspareunia, Sexual dysfunction, Urinary frequency, Urinary incontinence, Urgency, Hematuria , Dysuria, Nocturia, Vaginal discharge Musculoskeletal: DENIES: Joint pain, Muscle aches, Stiffness, Joint Swelling, Back pain, Neck pain Integumentary: DENIES: Abnormal pigmentation, Pruritus, Rash, Nail changes, Breast masses, Breast skin changes, Nipple discharge Hematologic/lymphatic: DENIES: Bruising, Lymphadenopathy Immunologic/allergic: COMPLAINS OF: Eczema, DENIES: Urticaria Neurologic: DENIES: Abnormal gait, Headache, Localized weakness, Paresthesias, Seizures, Speech Problems, Tremor, Poor Balance Psychiatric: DENIES: Anxiety, Confusion, Mood changes, Depression, Hallucinations, Agitation, Suicidal Ideation, Homicidal Ideation, Delusions Past Family Social History Allergies: Coded Allergies: Levaquin (Verified Allergy, Severe, Edema, 05/29/16) Penicillin (Unverified Allergy, Intermediate, hives, 03/10/16) Sulfa (Unverified Allergy, Intermediate, hives, 03/10/16) *MDRO Multi-Drug Resistant Organism (Verified Adverse Reaction, Unknown, ) ESBL+Klebsiella (leg-06/15/16) Past Medical History Ischemic Bowel w/ Resection and development of Enterocutaneous Fistula Short gut syndrome Asthma Depression and COPD Past Surgical History Bowel Resection 11/13/15 and 11/26/15 Left BKA Right Mastectomy Hysterectomy. Reported Medications Reported Meds & Active Scripts Active Zoloft (Sertraline HCl) 100 Mg Tab 100 Mg PO DAILY 30 Days Quetiapine Fumarate 25 Mg Tab 25 Mg PO DAILY 30 Days Nystop (Nystatin) 15 Applic/15 Gm Powd 1 Applic TOPICAL Q12HR 30 Days Lortab 10 mg/325 mg (Hydrocodone/Acetaminophen 10 mg/325 mg) 1 Tab 1 Tab PO Q6HR PRN Mycelex 10 mg Trouche (Clotrimazole) 10 Mg Troc 10 Mg BUCCAL 5 TIMES A DAY 14 Days stop date 07/25/16 Xanax 0.25 Mg (Alprazolam) Alprazolam 0.25 mg Tab 0.125 Mg PO Q6H PRN Resp: Albuterol/Ipratropium 2.5 Mg/0.5 Mg (Albuterol/Ipratropium) 1 Amp Nebu 1 Ampule NEB Q4HR NEB PRN 30 Days Zovirax 5% Cream 5 gm Tube (Acyclovir) 5 Applic/5 Gm Cr 1 Applic TOPICAL 5 TIMES A DAY 10 Days Acyclovir 200 mg (Acyclovir) 200 Mg Cap 400 Mg PO Q8HR 10 Days stop date 07/21/16 Cardizem CD 120 mg (Diltiazem CD 120 mg) 120MG/24 Cap 1 Cap PO DAILY 30 Days Tetracycline HCl 250 Mg Cap 250 Mg PO Q6HR 10 Days Gabapentin 100 Mg Cap 100 Mg PO HS 30 Days Celexa 40 Mg Tab (Citalopram Hydrobromide) 40 Mg Tab 40 Mg PO DAILY 30 Days Xanax 0.25 Mg (Alprazolam) Alprazolam 0.25 mg Tab 0.125 Mg PO Q6H PRN Rocaltrol (Calcitriol) 0.25 Mcg Cap 0.25 Mcg PO DAILY 30 Days Xarelto 20 Mg Tab (Rivaroxaban) 20 Mg Tab 20 Mg PO DAILY 30 Days OxyCONTIN ER (Oxycodone HCl) 10 Mg Tabcr 20 Mg PO Q12HR Dilaudid 2 Mg Tab (Hydromorphone Hcl) 2 Mg Tab 2 Mg PO Q4H PRN Dilaudid 4 Mg Tab (Hydromorphone Hcl) 4 Mg Tab 4 Mg PO Q4H PRN Reported Loperamide A-D (Loperamide HCl) 2 Mg Tab 2 Mg PO Q6H PRN Omeprazole 20 mg (Omeprazole) 20 Mg Tab 20 Mg PO BID Calcium 500 (Calcium-Magnesium W/ Vitamin D) Tab 1 Tab PO BID Lactinex (Lactobacillus Acidophilus) 1 Tab Tab 1 Tab PO TID Theragran M (Multivitamins/Minerals Therapeutic) 1 Tab Tab 1 Tab PO DAILY Zofran 8 Mg Tab (Ondansetron Hcl) 8 Mg Tab 8 Mg PO Q6HR PRN Feosol (Ferrous Sulfate) 65 Mg Tab 325 Mg PO DAILY Active Ordered Medications Current Medications Medications (Trade) Dose Ordered Sig/Shira Route Start Time Stop Time Status Last Admin (NS Flush) 2 ml BID IV FLUSH 06/14/16 21:00 07/24/16 09:31 (NS Flush) 2 ml UNSCH PRN IV FLUSH 06/14/16 17:00 07/16/16 01:10 (Cardizem Cd) 120 mg DAILY PO 06/15/16 09:00 07/24/16 09:27 (Xanax) 0.125 mg Q6H PRN PO 06/14/16 17:45 07/24/16 12:21 (Rocaltrol) 0.25 mcg DAILY PO 06/15/16 09:00 07/24/16 09:27 (Ferrous Sulfate) 325 mg DAILY PO 06/15/16 09:00 07/24/16 09:27 (Neurontin) 100 mg HS PO 06/14/16 21:00 07/23/16 21:26 (Lactinex) 1 tab TID PO 06/14/16 18:00 07/24/16 17:18 (Imodium) 2 mg Q6H PRN PO 06/14/16 17:45 Hold 07/04/16 17:14 (Oscal-D 250-125) 500 mg BID PO 06/14/16 21:00 07/24/16 09:27 (Zofran Odt) 8 mg Q6H PRN PO 06/14/16 18:15 07/08/16 12:37 (Pill Splitter) 1 ea UNSCH PRN OTHER 06/14/16 18:00 (Theragran) 1 tab DAILY PO 06/15/16 12:00 Hold 06/20/16 15:16 (Dilaudid Pf Inj) 1 mg Q4H PRN IV PUSH 06/15/16 14:30 07/24/16 15:58 (Heparin Central Flush) 500 units UNSCH IVF 06/20/16 11:30 06/24/16 05:25 (NS Flush) 5 ml UNSCH PRN IVF 06/20/16 11:30 (Heparin Central Flush) 250 units UNSCH PRN IVF 06/20/16 11:30 (Xarelto) 20 mg DAILY PO 06/21/16 09:00 07/24/16 09:27 (SEROquel) 25 mg DAILY PO 07/08/16 21:00 07/24/16 09:26 (Protonix) 40 mg BID PO 07/09/16 21:00 07/24/16 09:26 (Zofran Inj) 4 mg Q6HR PRN IV PUSH 07/09/16 16:45 07/19/16 13:31 (Mag-Al Plus Susp Liq) 30 ml Q6H PRN PO 07/09/16 16:45 07/09/16 17:19 (Magic Mouthwash Adult Liq) 10 ml QID SWISH-SWAL 07/10/16 19:00 07/24/16 17:21 (Tylenol) 650 mg Q4H PRN PO 07/11/16 05:45 Nystatin 1 applic 1 applic Q12HR TOPICAL 07/11/16 12:00 07/24/16 09:33 Pharmacy Profile Note 0 ml @ 0 mls/hr UNSCH OTHER 07/11/16 10:15 (Vancomycin Inj/ NS 250 ml Inj) 250 ml @ 250 mls/hr Q18H IV 07/13/16 05:00 07/24/16 12:19 (Mag-Ox) 400 mg Q12HR PO 07/13/16 13:45 07/24/16 09:26 Collagenase 1 applic 1 applic DAILY TOP 07/14/16 13:15 07/24/16 09:33 Multivitamins 10 ml/Folic Acid 1 mg/Amino Acid Electrolyte w/ Calc 2,010.2 ml @ 60 mls/hr Q24H IV-CENTRAL 07/15/16 20:00 07/23/16 20:00 (Liposyn Iii 20% Inj) 250 ml @ 31.25 mls/ hr SuWe@20 IV-CENTRAL 07/16/16 20:00 07/23/16 21:28 (Zoloft) 150 mg DAILY PO 07/17/16 09:00 07/24/16 09:26 ([place] 7.5-325 Mg) 1 tab Q4H PRN PO 07/16/16 11:00 ([place] 10-325 Mg) 1.5 tab Q4H PRN PO 07/16/16 11:00 10/3/16 17:18 (Narcan Inj) 0.4 mg UNSCH PRN IV 07/16/16 11:00 (Lotrimin 1% Cream) 1 applic Q8HR TOPICAL 07/16/16 17:00 07/24/16 15:54 (Benadryl Liq) 12.5 mg Q6H PRN PO 07/16/16 17:00 07/24/16 12:20 (Reglan Inj) 5 mg Q8H PRN IV PUSH 07/23/16 12:30 (Xanax) 0.125 mg Q8HR PO 07/24/16 14:00 (Dolophine) 2.5 mg Q12HR PO 07/24/16 21:00 Family History reviewed and NC to current ID problem. Social History ex smoker. Lives in SNF since last admission. Physical Exam Vital Signs Vital Signs Date Time Temp Pulse Resp B/P Pulse Ox O2 Delivery O2 Flow Rate FiO2 07/24/16 16:00 97.2 102 18 142/69 97 07/24/16 14:35 Room Air 07/24/16 12:00 98.0 107 18 122/65 93 07/24/16 09:00 97.0 91 20 133/74 95 07/24/16 04:00 98.1 89 19 120/66 92 07/24/16 00:00 97.5 97 18 116/63 93 07/23/16 21:30 Room Air 07/23/16 20:00 96.8 91 18 109/62 92 Physical Exam GENERAL: Ill nourished patient, in no apparent distress. SKIN: Skin with xerosis. Erythema, with skin erosion and blisters noted on various parts of the body including angles of mouth, outer and inner canthi of eyes. Some fluid filled blisters on fingers noted. HEAD: Atraumatic. Normocephalic. No temporal or scalp tenderness. EYES: Inner canthus of eye with erythema and palpebral conjunctiva with erythema and swelling noted. ENT: Nose without bleeding, purulent drainage or septal hematoma. Throat without erythema, tonsillar hypertrophy or exudate. Uvula midline. Airway patent. NECK: Trachea midline. Supple, nontender, no meningeal signs. CARDIOVASCULAR: RRR. RESPIRATORY: Clear to auscultation. Breath sounds equal bilaterally. GASTROINTESTINAL: Abdomen soft, EC fistula site with erythema noted. Port site with no e/o infection. MUSCULOSKELETAL: Extremities no edema noted. Left amputation site in dressing. NEUROLOGICAL: Awake and alert. Grossly non focal. Psych: slightly anxious appearing Laboratory Laboratory Tests Test 07/24/16 07/24/16 06:19 13:32 White Blood Count 8.8 Red Blood Count 2.97 Hemoglobin 9.6 Hematocrit 28.4 Mean Corpuscular Volume 95.8 Mean Corpuscular Hemoglobin 32.3 Mean Corpuscular Hemoglobin 33.7 Concent Red Cell Distribution Width 19.2 Platelet Count 458 Mean Platelet Volume 9.3 Neutrophils (%) (Auto) 56.9 Lymphocytes (%) (Auto) 24.2 Monocytes (%) (Auto) 8.8 Eosinophils (%) (Auto) 8.8 Basophils (%) (Auto) 1.3 Neutrophils # (Auto) 5.0 Lymphocytes # (Auto) 2.1 Monocytes # (Auto) 0.8 Eosinophils # (Auto) 0.8 Basophils # (Auto) 0.1 CBC Comment DIFF FINAL Differential Comment Sodium Level 142 Potassium Level 2.8 Chloride Level 109 Carbon Dioxide Level 25.3 Anion Gap 8 Blood Urea Nitrogen 14 Creatinine 0.49 Estimat Glomerular Filtration 125 Rate Random Glucose 139 Calcium Level 8.0 Vitamin B12 Level 401 Date/Time Procedure Status Source Growth 07/24/16 13:32 Blood Fungal Culture Received Blood Other Pending 07/24/16 13:32 Blood Fungal Culture Received Blood Other Pending 07/22/16 04:55 Aerobic Blood Culture - Preliminary Resulted Blood Other NO GROWTH IN 2 DAYS 07/22/16 04:55 Anaerobic Blood Culture - Preliminary Resulted Blood Other NO GROWTH IN 2 DAYS 07/20/16 01:15 Aerobic Blood Culture - Final Resulted Blood Other Staphylococcus Hominis-Hominis 07/20/16 01:15 Anaerobic Blood Culture - Preliminary Resulted Blood Other NO GROWTH IN 4 DAYS Result Diagram: 07/24/16 0619 07/24/16 0619 Imaging Last Impressions Liver Ultrasound 07/12/16 0000 Signed Impressions: Service Date/Time: Tuesday, July 12, 2016 18:07 - CONCLUSION: 1. No acute abnormality demonstrated. 2. Heterogeneous liver without measurable mass. 3. Small and heterogeneous spleen without a measurable mass. 4. Cortical thinning and scarring of the right kidney. 5. Previous cholecystectomy. Calixto Woodruff MD Chest CT 07/09/16 0000 Signed Impressions: Service Date/Time: Saturday, July 09, 2016 14:43 - CONCLUSION: 1. Small right pleural effusion and minimal right basilar consolidation. 2. 6 mm left basilar nodule. Followup CT chest 6 months recommended. Florian Pepper MD Chest X-Ray 07/08/16 0000 Signed Impressions: Service Date/Time: Friday, July 08, 2016 16:26 - CONCLUSION: Chronic right lung base opacity unchanged. No new pulmonary opacity. Alexandru Lynch MD Lower Extremity Ultrasound 06/25/16 0000 Signed Impressions: Service Date/Time: Saturday, June 25, 2016 15:56 - CONCLUSION: Negative exam with no evidence of deep venous thrombosis. Soft tissue edema. Mike Leija MD Port Line Insertion 06/20/16 0000 Signed Impressions: Service Date/Time: Monday, June 20, 2016 08:53 - CONCLUSION: Uncomplicated ultrasound and fluoroscopic guided implanted central venous port catheter placement as described in detail above. An 8 Amharic Power port was placed. Kevan Salgado Jr., MD Assessment and Plan Assessment and Plan Skin rash: DDX: TPN related nutritional deficiency particularly zinc (Acquired acrodermatitis enteropathica) Fixed drug eruption: seems less likely Disseminated fungal infection seems less likely. Other nutritional deficiencies such as Vitamins B complex. Staph hominis bacteremia ? port related. ECHO with mitral valve vegetation ? endocarditis. Left amputation stump infection Short gut syndrome, on TPN. Recs: Continue Vanco IV for Staph hominis. DC flagyl DC acyclovir. Recommend derm biopsy for definitive diagnosis. Serum zinc level Serum Vitamin B levels. Check LFTs Check prealbumin. Nutrition consult to address zinc and other levels when available to adjust TPN. Fungal blood culture from port. Opthalm consult (blepharitis : infection vs nutrition related) If Zinc deficiency is confirmed replacement should relieve and diminish skin lesions in 7-10 days. Thank you for involving me in the care of Ms. Wilson. This is an interesting consult. Dorcas Carrillo MD Jul 24, 2016 17:31
[2016-07-24 20:00] VITALS: BP 115/59; PULSE 99; RESP 20; TEMP 99.1; O2SAT 94
[2016-07-24] MEDS: GABAPENTIN 100 MG CAP PO SCH (21:10)
[2016-07-24] MEDS: METHADONE HCL 10 MG TAB PO SCH (21:11)
[2016-07-24] MEDS: CLINIMIX E 5/25 2000 mL- >42 mls/hr IV-CENTRAL SCH ×3 (21:17)
[2016-07-25] VITALS (8 sets, daily range): BP systolic 115–143; BP diastolic 67–83; PULSE 93–108; RESP 16–24; TEMP 96.4–100.6; O2SAT 94–98
[2016-07-25] MEDS: ACETAMINOPHEN/HYDROcodone 325 MG/10 MG TAB PO PRN ×3 (04:11→20:50)
[2016-07-25] MEDS: VANCOMYCIN 1,000 MG/NS 250 ML IV SCH ×2 (04:12)
[2016-07-25] MEDS: HYDROmorphone HCL PF 1 MG/ML VIAL IV PUSH PRN ×3 (05:05→22:23)
[2016-07-25 05:42] LABS: POTASSIUM 2.9 MEQ/L (3.5-5.1)
[2016-07-25] MEDS ORDERED: POTASSIUM CHLORIDE 25 MEQ EFFERVESCENT TAB PO ONE (06:00)
[2016-07-25] MEDS: POTASSIUM CHLOR 20 MEQ PREMIX 100 ML IV SCH ×2 (06:32→08:00)
[2016-07-25] MEDS: ALPRAZolam 0.25 MG TAB PO SCH ×3 (06:32→22:24)
[2016-07-25] MEDS: CLOTRIMAZOLE 10 MG TROCHE BUCCAL SCH ×2 (06:33→09:23)
[2016-07-25] MEDS: CLOTRIMAZOLE 1% CREAM 15 GM TOPICAL SCH ×3 (06:35→20:58)
[2016-07-25] MEDS: MAGNESIUM OXIDE 400 MG TAB PO SCH ×2 (09:22→20:49)
[2016-07-25] MEDS: CALCIUM/VITAMIN D 250 MG/125 U TAB PO SCH ×2 (09:22→20:49)
[2016-07-25] MEDS: PANTOPRAZOLE SOD 20 MG DELAYED RELEASE TAB PO SCH ×2 (09:23→20:49)
[2016-07-25] MEDS: RIVAROXABAN 20 MG TAB PO SCH (09:23)
[2016-07-25] MEDS: DILTIAZEM-CD 120 MG CAP ER PO SCH (09:23)
[2016-07-25] MEDS: QUEtiapine FUMARATE 25 MG TAB PO SCH (09:23)
[2016-07-25] MEDS: METHADONE HCL 10 MG TAB PO SCH ×2 (09:24→20:50)
[2016-07-25] MEDS: LACTOBACILLUS ACIDOPHILUS TAB PO SCH ×3 (09:24→17:44)
[2016-07-25] MEDS: FERROUS SULFATE 325 MG (65 MG ELEMENTAL IRON) TAB PO SCH (09:24)
[2016-07-25] MEDS: CALCITRIOL 0.25 MCG CAP PO SCH (09:24)
[2016-07-25] MEDS: SERTRALINE HCL 100 MG TAB PO SCH (09:25)
[2016-07-25] MEDS: NYSTAT/DIPHENHY/LIDO MOUTHWASH (Adult) 120ML SWISH-SWAL SCH ×4 (09:26→20:55)
[2016-07-25] MEDS: SODIUM CHLORIDE 0.9% FLUSH 5 ML FLUSH IV FLUSH SCH ×2 (09:26→20:57)
[2016-07-25] MEDS: COLLAGENASE OINT 30 GM TUBE TOP SCH (09:27)
[2016-07-25] MEDS: NYSTATIN 100,000 U/GM PWD 15 GM BTL TOPICAL SCH ×2 (09:27→20:55)
--- NOTE | 2016-07-25 10:08 | PD.CONS ---
History of Present Illness Service Ophthalmology Consult Requested By ID Reason for Consult blepharitis Primary Care Physician Kathy Byrnes MD Diagnoses: History of Present Illness Ms. Wilson is a 70 y/o CF with PMHX significant for ischemic bowel s/p resection and development of chronic enterocutaneous fistula, asthma, depression , COPD, severe peripheral vascular disease status post left BKA. Due to concern for wound dehiscence and infection she was admitted by Vascular surgery. Patient has been receiving TPN due to her Enterocutaneous fistula and poor nutritional status. Patient developed a vesicular rash on her face involving the corner of her eyes, mouth, ears, back, anal region. Called to evaluate area near left eye. Patient states it is itchy and irritating. Has not affected her vision or eye itself. No significant ocular history. Past Family Social History Allergies: Coded Allergies: Levaquin (Verified Allergy, Severe, Edema, 05/29/16) Penicillin (Unverified Allergy, Intermediate, hives, 03/10/16) Sulfa (Unverified Allergy, Intermediate, hives, 03/10/16) *MDRO Multi-Drug Resistant Organism (Verified Adverse Reaction, Unknown, ) ESBL+Klebsiella (leg-06/15/16) Physical Exam Vital Signs Vital Signs Date Time Temp Pulse Resp B/P Pulse Ox O2 Delivery O2 Flow Rate FiO2 07/25/16 08:00 97.8 100 20 115/77 95 07/25/16 04:00 Room Air 07/25/16 04:00 100.6 94 24 142/70 95 07/25/16 00:20 99.9 108 24 137/71 96 07/25/16 00:00 Room Air 07/24/16 20:00 Room Air 07/24/16 20:00 99.1 99 20 115/59 94 07/24/16 16:00 97.2 102 18 142/69 97 07/24/16 14:35 Room Air 07/24/16 12:00 98.0 107 18 122/65 93 Physical Exam Va cc at near OD 20/30, OS 20/30 EOM full OU, no diplopia CVF full OU Pupils 2-1 no APD OU IOP normal to palpation OU OD - eyelid vesicles, C/S W&Q, K clear, AC deep, pupil round, lens clear OS - eyelid vesicles and small interpalpebral fissure, C/S W&Q, K clear, AC deep , pupil round, lens clear Laboratory Laboratory Tests Test 07/24/16 07/25/16 13:32 03:22 Vitamin B12 Level 401 Sodium Level 145 Potassium Level 2.9 Chloride Level 113 Carbon Dioxide Level 24.0 Anion Gap 8 Blood Urea Nitrogen 11 Creatinine 0.43 Estimat Glomerular Filtration 145 Rate Random Glucose 112 Calcium Level 8.1 Date/Time Procedure Status Source Growth 07/24/16 13:32 Blood Fungal Culture Received Blood Other Pending 07/24/16 13:32 Blood Fungal Culture Received Blood Other Pending 07/22/16 04:55 Aerobic Blood Culture - Preliminary Resulted Blood Other NO GROWTH IN 2 DAYS 07/22/16 04:55 Anaerobic Blood Culture - Preliminary Resulted Blood Other NO GROWTH IN 2 DAYS Result Diagram: 07/24/16 0619 07/25/16 0322 Assessment and Plan Problem List: (1) Disseminated herpes zoster Status: Acute Plan: Due to immunocompromised status. Or possible malnutrition related. Will await biopsy results. Eye not affected - recommend erythro ophthalmic oint on eyelid TID, and Pred Forte in left eye BID to alleviate irritation. Abbey Greene MD Jul 25, 2016 10:08
--- NOTE | 2016-07-25 10:57 | HHI.PR ---
Subjective Remarks + pain- perioral lesions, periorbital lesions, chest wall and posterior upper back Objective Vitals Vital Signs Date Time Temp Pulse Resp B/P Pulse Ox O2 Delivery O2 Flow Rate FiO2 07/25/16 08:00 97.8 100 20 115/77 95 07/25/16 04:00 Room Air 07/25/16 04:00 100.6 94 24 142/70 95 07/25/16 00:20 99.9 108 24 137/71 96 07/25/16 00:00 Room Air 07/24/16 20:00 Room Air 07/24/16 20:00 99.1 99 20 115/59 94 07/24/16 16:00 97.2 102 18 142/69 97 07/24/16 14:35 Room Air 07/24/16 12:00 98.0 107 18 122/65 93 I/O 07/24/16 07/24/16 07/24/16 07/25/16 07/25/16 07/25/16 07:00 15:00 23:00 07:00 15:00 23:00 Intake Total 80 ml 240 ml 2948 ml 100 ml 799 ml Output Total 150 ml 1300 ml 1000 ml 825 ml Balance -70 ml -1060 ml 1948 ml -725 ml 799 ml Intake Oral 80 ml 240 ml 100 ml IV Total 1076 ml 799 ml TPN/PPN 1872 ml Output Urine Total 150 ml 300 ml 325 ml Stool Total 1000 ml 1000 ml 500 ml Result Diagram: 07/24/16 0619 07/25/16 0322 Imaging Last Impressions Liver Ultrasound 07/12/16 0000 Signed Impressions: Service Date/Time: Tuesday, July 12, 2016 18:07 - CONCLUSION: 1. No acute abnormality demonstrated. 2. Heterogeneous liver without measurable mass. 3. Small and heterogeneous spleen without a measurable mass. 4. Cortical thinning and scarring of the right kidney. 5. Previous cholecystectomy. Calixto Woodruff MD Chest CT 07/09/16 0000 Signed Impressions: Service Date/Time: Saturday, July 09, 2016 14:43 - CONCLUSION: 1. Small right pleural effusion and minimal right basilar consolidation. 2. 6 mm left basilar nodule. Followup CT chest 6 months recommended. Florian Pepper MD Chest X-Ray 07/08/16 0000 Signed Impressions: Service Date/Time: Friday, July 08, 2016 16:26 - CONCLUSION: Chronic right lung base opacity unchanged. No new pulmonary opacity. Alexandru Lynch MD Lower Extremity Ultrasound 06/25/16 0000 Signed Impressions: Service Date/Time: Saturday, June 25, 2016 15:56 - CONCLUSION: Negative exam with no evidence of deep venous thrombosis. Soft tissue edema. Mike Leija MD Port Line Insertion 06/20/16 0000 Signed Impressions: Service Date/Time: Monday, June 20, 2016 08:53 - CONCLUSION: Uncomplicated ultrasound and fluoroscopic guided implanted central venous port catheter placement as described in detail above. An 8 Togolese Power port was placed. Kevan Salgado Jr., MD Objective Remarks awake and alert skin: periorbital and perioral, upper back area - dry erythematous lesions roof of the mouth with nodule lungs - decrease breath sounds regular rhythm abdomen soft, post op wound with dressing intact extremities no edema, no calf tenderness finger -digital ends with blistering formation Procedures Left stump debridement by Dr. Hlil on 06/15/16 A/P Problem List: (1) Infection of amputation stump ICD Code: T87.40 Status: Resolved (2) 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 (3) Hypercoagulable state ICD Code: D68.59 Status: Chronic (4) HTN (hypertension) ICD Code: I10 Status: Chronic (5) Anxiety about health ICD Code: F41.8 Status: Chronic (6) Diarrhea ICD Code: R19.7 Status: Acute (7) Severe protein-calorie malnutrition ICD Code: E43 Status: Acute (8) Fungal skin infection ICD Code: B36.9 Status: Acute (9) Transient lingual papillitis ICD Code: K14.0 Status: Acute (10) Hospital acquired PNA ICD Code: J18.9 Status: Acute (11) Major depressive disorder, recurrent severe without psychotic features ICD Code: F33.2 Status: Acute (12) Disseminated herpes zoster ICD Code: B02.7 Status: Acute Assessment and Plan The patient is a 70-year-old female with a medical history significant for ischemic bowel with resection in Oct 2015 and development of chronic enterocutaneous fistula, asthma, depression, COPD, severe peripheral vascular disease status post left BKA, multiple hospitalizations and readmissions. The patient was discharged from the hospital on 06/06/16 to a alf facility for rehabilitation. The stitches on the left stump were taken out 2 weeks ago. She reports that the wound has been opening up when she participated with physical therapy. She returned due to wound dehiscence and infection. -staph Hominis bacteremia -Perioral, periorbital lesions- biopsies pending ID ff/Dr. Greenfield - magic mouthwash, pain control. bottom is excoriated, guevara and flexiseal ordered on 07/21 to avoid further skin breakdown. She has significant skin breakdown, wound care is following. -IV Acyclovir- discontinue on IV Vancomycin - pt does have port. -Enterocutaneous fistula. per surgery, no further surgical intervention. Optimize nutrition with PO and TPN. wound care. -Infected left BKA stump: Patient status post BKA on 05/02/16. Dr. Sergio kuo. S/P debridement. Wound cultures growing Klebsiella ESBL positive and Morganella s/p tx with zerbaxa - Dilaudid IV for breakthrough pain. Continue Percocet. - Methadone added to regimen - Management as per vascular surgery s/p wound vac and removal, wound appears clean. abx per ID. -Fungal rash/groin - cont -Hypercoagulable state: History of ischemic bowel and severe peripheral vascular disease. - Continue Xarelto -Anxiety and depression: - worsening depression. Patient with outbursts of crying on Seroquel and Zoloft. Dw psychiatry increased Zoloft pt refused cymbalta. Consider Remeron. I have consulted palliative care for support, pain control, clarication of care goals. -COPD: Breathing treatments as needed. Stable. 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 cont Imodium as needed. -Severe protein-calorie malnutrition- Patient currently on TPN and being followed by dietitian. Ensure 1 can by mouth 3 times a day. -Skin care. She has excoriated skin over the buttock, abdomen and perineum. Continue anti-fungal cream. Has guevara and rectal seal to prevent further skin breakdown. -GERD: Continue PPI Hypokalemia - give 40 meq Kcl in IV over 4 hrs, -Thrush. Mycelex buccal. -Pulmonary nodule. Rpt CT in 6 mos GI prophylaxis: PPI. DVT PPx: Xarelto Problem Qualifiers (1) HTN (hypertension): Qualified Code: I10 - Essential hypertension (2) Diarrhea: Qualified Code: R19.7 - Diarrhea, unspecified type Maricarmen Sousa MD Jul 25, 2016 10:57
--- NOTE | 2016-07-25 13:14 | HHI.HCPN ---
Reason for visit a. To assist with evaluation and management of symptoms including: Pain, anxiety, depression b. To assist medical decision maker(s) with: better understanding of current medical conditions; weighing benefits/burdens of medical treatment options; making medical treatment decisions. . Subjective/Interval History INTERVAL NOTE: The patient continues to have low-grade fever, 100.6 today. After I saw the patient yesterday, the echocardiogram report indicated a possible vegetation on a mitral valve leaflet. The patient is now on prolonged antibiotics for possible/probable endocarditis. The patient does not think her rash has changed much since yesterday. The large vesicles on the fingers continue to be uncomfortable. Surgery came by yesterday and did take some skin biopsies from her face. The low-dose scheduled Xanax and low-dose methadone were begun yesterday p.m. We will be evaluating her PRN requirements over the next day or 2 and will adjust dosing accordingly. As per initial consultation note on 07/24/16 by Ronald Edouard MD: This 71-year-old female has a complex medical history over the past year. The patient was admitted to the hospital and sepsis and shock in October 2015 and was found to have ischemic bowel. She underwent surgery 11/13/15 with resection of some large and small bowel (as well as the gallbladder), but developed complications including an enterocutaneous fistula and required a second resection of bowel on 11/26/15. The patient eventually was able to be sent to SNF , but returned to the hospital again on 03/11/16 with abdominal pain and had infection involving the fistula. That was treated, and she was able to go home briefly. She returned to the hospital on 04/04/16 because of left leg pain that was found to be caused by ischemia. She underwent treatment with TPA and was kept on anticoagulation, and was discharged again. She returned to the hospital on 04/28/16 with gangrene of the left foot, and was found to have multiple thrombi in major vessels. 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 On 06/14/16, while at the nursing facility, the patient was moving in the bed and there was a dehiscence of the left leg stump wound, and she was sent back to the hospital for admission. Couple on arrival at the hospital, she was found to have a temperature of 100.2 , and she was readmitted. 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 Cultures from the stump wound grew both Klebsiella ESBL and a Morganella species. She was taken to the operating room for debridement and placement of a wound VAC. The fistula seemed to finally close on 06/25/16, but it reopened and has remained open since 07/12/16. She again had fever on 07/21/16 , and additional cultures were done. Staphylococcus hominis has been grown in the blood cultures. The patient has developed a worsening rash on her face, upper back, sacral/ buttock area, and now over the past few days worsening with development of bullae on multiple fingertips. The patient thinks there were vesicles on the rash across her back and on her face a week or 2 ago, but those seem to have all collapsed and dried. The patient has had worsening anxiety over the past several months that she has undergone multiple hospitalizations and complications. She has been receiving some PRN Xanax here, and she says that does help, but it is not scheduled. She has also had pain that has worsened, particularly in her abdomen that she relates to the enterocutaneous fistula, and on her skin on the sacral and upper back area, as well as some skin related to the facial rash. She has received intermittent Nichols 10 mg and Dilaudid 1 mg IV a few times per day, and says they helped temporarily. Palliative Care was consulted to assist with symptom management, and to enter in discussions regarding goals of care in the benefits and burdens of the various illnesses and treatment options. . Family/friend interactions I spoke at length by telephone with the patient's friend/HCS Anuradha Christian. Anuradha is a nurse and has a good understanding of hospitals and health care system. . Advance Directives Living Will: Never completed Health Care Surrogate: Copy in medical record Durable Power of Camera Operator: Never completed Advance Directive Specifics Health Care Surrogate(s): Primary HCS is her close friend Anuradha Christian, and secondary is her Dwight Wilson. The HCS that is in the record here is not dated. . Objective Vital Signs Date Time Temp Pulse Resp B/P Pulse Ox O2 Delivery O2 Flow Rate FiO2 07/25/16 12:26 Room Air 07/25/16 12:00 99.9 101 17 143/83 95 07/25/16 08:00 97.8 100 20 115/77 95 07/25/16 04:00 Room Air 07/25/16 04:00 100.6 94 24 142/70 95 07/25/16 00:20 99.9 108 24 137/71 96 07/25/16 00:00 Room Air 07/24/16 20:00 Room Air 07/24/16 20:00 99.1 99 20 115/59 94 07/24/16 16:00 97.2 102 18 142/69 97 07/24/16 14:35 Room Air Intake & Output 07/25/16 07/25/16 06:59 18:59 Intake Total 100 ml 799 ml Output Total 825 ml Balance -725 ml 799 ml Intake Oral 100 ml IV Total 799 ml Output Urine Total 325 ml Stool Total 500 ml Physical Exam CONSTITUTIONAL/GENERAL: This is a weak, depressed appearing patient, in no apparent distress. TUBES/LINES/DRAINS: Accessed port, dressing on left BKA stump, large pad/ dressing over central abdomen SKIN: Skin temperature appropriate. Not diaphoretic. The patient has a diffuse , patchy rash involving both sides of her face (she says there were vesicles that have dried up), and a similar patchy rash over the entire upper half of her back. There is macerated/moist redness involving a large, perhaps 15-20 cm , area over her sacrum and upper buttocks. In addition, there are several 2 cm bullae involving fingertips or in the area of the DIP joints of fingers. There are no vesicles or bullae or evidence of rash on her legs or on the right foot. EYES: Pupils equal and round and reactive. Extraocular motions intact. No scleral icterus. No injection or drainage. Fundi not examined. ENT: Hearing grossly normal. Nose without bleeding or purulent drainage. Throat without visible erythema, exudates, masses, or lesions. NECK: Trachea midline. Supple, nontender. No palpable thyroid enlargement or nodularity. CARDIOVASCULAR: Regular rate and rhythm without murmurs, gallops, or rubs. No JVD. Peripheral pulses symmetric. RESPIRATORY/CHEST: Symmetric, unlabored respirations. Clear to auscultation. Breath sounds equal bilaterally. No wheezes, rales, or rhonchi. GASTROINTESTINAL: Soft, some tenderness across the lower half without guarding or rebound. Large dressing and corset present across the mid abdomen and I did not remove that to examine the fistula. Bowel sounds present GENITOURINARY: Without palpable bladder distension. Hamlin catheter in place. MUSCULOSKELETAL: Extremities without clubbing, cyanosis, or edema. Some tenderness is present following the vesicles/bullae of the fingertips.. No calf tenderness on the right. No mottling or clubbing. NEUROLOGICAL: Awake and alert. Motor and sensory grossly within normal limits. Follows commands. Cognitively sharp. Moves all extremities. PSYCHIATRIC: Appears depressed, tearful at times, and has anxiety episodes lasting a couple minutes where she trembles. No apparent hallucinations or other psychotic thought process. . Diagnostic Tests Laboratory Laboratory Tests Test 07/23/16 07/24/16 07/24/16 07/25/16 05:53 06:19 13:32 03:22 Creatinine 0.46 MG/DL 0.49 MG/DL 0.43 MG/DL (0.50-1.00) (0.50-1.00) (0.50-1.00) Estimat Glomerular Filtration 134 ML/MIN 125 ML/MIN 145 ML/MIN Rate (>89) (>89) (>89) White Blood Count 8.8 TH/MM3 (4.0-11.0) Red Blood Count 2.97 MIL/MM3 (4.00-5.30) Hemoglobin 9.6 GM/DL (11.6-15.3) Hematocrit 28.4 % (35.0-46.0) Mean Corpuscular Volume 95.8 FL (80.0-100.0) Mean Corpuscular Hemoglobin 32.3 PG (27.0-34.0) Mean Corpuscular Hemoglobin 33.7 % Concent (32.0-36.0) Red Cell Distribution Width 19.2 % (11.6-17.2) Platelet Count 458 TH/MM3 (150-450) Mean Platelet Volume 9.3 FL (7.0-11.0) Neutrophils (%) (Auto) 56.9 % (16.0-70.0) Lymphocytes (%) (Auto) 24.2 % (9.0-44.0) Monocytes (%) (Auto) 8.8 % (0.0-8.0) Eosinophils (%) (Auto) 8.8 % (0.0-4.0) Basophils (%) (Auto) 1.3 % (0.0-2.0) Neutrophils # (Auto) 5.0 TH/MM3 (1.8-7.7) Lymphocytes # (Auto) 2.1 TH/MM3 (1.0-4.8) Monocytes # (Auto) 0.8 TH/MM3 (0-0.9) Eosinophils # (Auto) 0.8 TH/MM3 (0-0.4) Basophils # (Auto) 0.1 TH/MM3 (0-0.2) CBC Comment DIFF FINAL Differential Comment Sodium Level 142 MEQ/L 145 MEQ/L (136-145) (136-145) Potassium Level 2.8 MEQ/L 2.9 MEQ/L (3.5-5.1) (3.5-5.1) Chloride Level 109 MEQ/L 113 MEQ/L (98-107) (98-107) Carbon Dioxide Level 25.3 MEQ/L 24.0 MEQ/L (21.0-32.0) (21.0-32.0) Anion Gap 8 MEQ/L (5-15) 8 MEQ/L (5-15) Blood Urea Nitrogen 14 MG/DL (7-18) 11 MG/DL (7-18) Random Glucose 139 MG/DL 112 MG/DL (74-106) (74-106) Calcium Level 8.0 MG/DL 8.1 MG/DL (8.5-10.1) (8.5-10.1) Vitamin B12 Level 401 PG/ML (193-986) Result Diagram: 07/24/16 0619 07/25/16 0322 Microbiology Microbiology Date/Time Procedure Status Source Growth 07/24/16 13:32 Blood Fungal Culture Received Blood Other Pending 07/24/16 13:32 Blood Fungal Culture Received Blood Other Pending Procedures Stump debridement and wound VAC placement 06/16/16 TPN . 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 (4) sepsis/shock secondary to ischemic bowel, October 2015 (5) short-bowel syndrome, TPN-dependent (6) rash: Significant exanthem and enanthem with prior vesicles and new/ worsening multiple finger bullae (7) pulmonary nodule on CT scan, 2.6 mm at the left base (8) depression (9) COPD, not oxygen dependent (10) history of breast cancer (11) anxiety (12) anemia Symptom Scale: (1) pain 0-10 Scale: 6 (she has been receiving Nichols and parenteral hydromorphone) (2) anxiety 0-10 Scale: 4 (she has had occasional doses of Xanax that she says helps, but her anxiety is worsening overall) (3) depression 0-10 Scale: 4 (long-term, was on Celexa at home, now on Zoloft; remains tearful frequently) Pertinent Non-Medical Issues Psychosocial: Second marriage for about 1 year, but most of that time in the hospital or SNF. No children, but has close friend Anuradha. Spiritual: Evaluation pending Legal: The patient has capacity for decision-making, and has designated her friend Anuradha and her Dwight as primary and secondary HCS respectively Ethical issues impacting care: None. . Important Contacts Primary HCS, close friend Anuradha Christian [phone] : Dwight Wilson [phone] . Prognosis She has suffered multiple illnesses, infections, and complications during the last 10 months, and now is TPN dependent every 2 short-bowel syndrome. Her overall prognosis would appear to be poor, and she would be an appropriate hospice candidate if she elected to stop all aggressive care including TPN. . Code Status: Full Code Plan * FULL CODE; The patient does want to continue AGGRESSIVE CARE at this time. She is frustrated by all the complications and the debility caused by pain, anxiety, and depression, but wants to remain a full code and continue all care available for now. She has a good understanding of hospice, as she has been the primary caregiver for 3 of her relatives who were on hospice and at end-of- life. She does not desire hospice services at this time. * GOALS: The patient does want to continue aggressive care at this time. She definitely would like to have the anxiety and pain improved. * DECISION-MAKING: The patient is capacitated for decision making, and has designated her close friend Anuradha Christian and her Dwight Wilson as primary and secondary HCS respectively. * SYMPTOMS: -- Pain: The patient has ongoing abdominal pain as well as pain related to the multiple skin lesions and maceration. She has been receiving PRN hydrocodone and hydromorphone, but would prefer some regularly scheduled pain medicine "so the pain doesn't build up so much before I get a dose of medicine. " I began scheduled low-dose methadone on 07/24/16. -- Anxiety: This has worsened steadily throughout her several months of medical challenges. The small dose of Xanax that she has had occasionally does seem to help, and I believe she would feel better overall if we kept her on a little bit of Xanax; I began scheduled low-dose Xanax on 07/24/16. -- Depression: I suspect most of her depression is a combination of some chronic depression (she had been on Celexa for quite some time at home) and some situational depression at this time. She remains on Zoloft. -- Rash: She has an impressive rash, and it includes some worsening/ expanding bullae on multiple fingers now. A circular/bullous rashes like this can have etiologies that include drug reaction, infection (bacterial or vital), ischemia, metabolic diseases like porphyrias, a pemphigoid disease, and others. Biopsies were obtained 07/24/16. * Palliative Care will continue to follow the patient during this hospitalization. . Time Spent Total Floor Time (mins): 41 Face to Face Time (mins): 25 >50% Counseling/Coord of Care: Yes Attestation To help prompt me to consider important information that might be impacting today's encounter and assessment, information from prior notes written by myself or my colleagues may have been "brought forward" into today's note. My signature on this note, however, is an attestation that I personally performed the exam, history, and/or decision-making noted today, and, unless otherwise indicated, the interactions with patient, family, and staff as well as the review of records all occurred today. I also attest that the listed assessment and stated plan reflect my best clinical judgment today based on the combination of historical information, prior notes, and today's exam/ interactions. When time spent is documented, it refers only to time spent today by the signer, or if indicated, combined time spent today by collaborating physician/nurse practitioner. Dalila Edouard MD Jul 25, 2016 13:14
[2016-07-25] MEDS: valACYclovir HCL 500 MG TAB PO SCH ×2 (15:19→22:23)
--- NOTE | 2016-07-25 16:43 | HHI.IDPN ---
Subjective Subjective Remarks Notes reviewed Low grade temps Rash on her face, back and buttocks same as yesterday, painful and itchy Had skin biopsy done Ophtha evaluation noted Also has more bullous lesions in her fingers 07/15, 07/16, 07/20 BC with Staph hominis Echo with possible MV vegetation Antibiotics Vancomycin Lines Port Past Medical History 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 Vital Signs Date Time Temp Pulse Resp B/P Pulse Ox O2 Delivery O2 Flow Rate FiO2 07/25/16 12:26 Room Air 07/25/16 12:00 99.9 101 17 143/83 95 07/25/16 12:00 99.9 101 17 143/83 95 07/25/16 08:00 97.8 100 20 115/77 95 07/25/16 04:00 Room Air 07/25/16 04:00 100.6 94 24 142/70 95 07/25/16 00:20 99.9 108 24 137/71 96 07/25/16 00:00 Room Air 07/24/16 20:00 Room Air 07/24/16 20:00 99.1 99 20 115/59 94 07/24/16 07/24/16 07/25/16 15:00 23:00 07:00 Intake Total 240 ml 2948 ml 100 ml Output Total 1300 ml 1000 ml 825 ml Balance -1060 ml 1948 ml -725 ml Intake Oral 240 ml 100 ml IV Total 1076 ml TPN/PPN 1872 ml Output Urine Total 300 ml 325 ml Stool Total 1000 ml 1000 ml 500 ml . Laboratory Tests Test 07/24/16 06:19 White Blood Count 8.8 TH/MM3 Red Blood Count 2.97 MIL/MM3 Hemoglobin 9.6 GM/DL Hematocrit 28.4 % Mean Corpuscular Volume 95.8 FL Mean Corpuscular Hemoglobin 32.3 PG Mean Corpuscular Hemoglobin 33.7 % Concent Red Cell Distribution Width 19.2 % Platelet Count 458 TH/MM3 Mean Platelet Volume 9.3 FL Neutrophils (%) (Auto) 56.9 % Lymphocytes (%) (Auto) 24.2 % Monocytes (%) (Auto) 8.8 % Eosinophils (%) (Auto) 8.8 % Basophils (%) (Auto) 1.3 % Neutrophils # (Auto) 5.0 TH/MM3 Lymphocytes # (Auto) 2.1 TH/MM3 Monocytes # (Auto) 0.8 TH/MM3 Eosinophils # (Auto) 0.8 TH/MM3 Basophils # (Auto) 0.1 TH/MM3 CBC Comment DIFF FINAL Differential Comment Laboratory Tests Test 07/24/16 07/24/16 07/25/16 06:19 13:32 03:22 Sodium Level 142 MEQ/L 145 MEQ/L Potassium Level 2.8 MEQ/L 2.9 MEQ/L Chloride Level 109 MEQ/L 113 MEQ/L Carbon Dioxide Level 25.3 MEQ/L 24.0 MEQ/L Anion Gap 8 MEQ/L 8 MEQ/L Blood Urea Nitrogen 14 MG/DL 11 MG/DL Creatinine 0.49 MG/DL 0.43 MG/DL Estimat Glomerular Filtration 125 ML/MIN 145 ML/MIN Rate Random Glucose 139 MG/DL 112 MG/DL Calcium Level 8.0 MG/DL 8.1 MG/DL Vitamin B12 Level 401 PG/ML Microbiology Date/Time Procedure Status Source Growth 07/24/16 13:32 Blood Fungal Culture Received Blood Other Pending 07/24/16 13:32 Blood Fungal Culture Received Blood Other Pending Imaging Liver Ultrasound 07/12/16 0000 Signed Impressions: Service Date/Time: Tuesday, July 12, 2016 18:07 - CONCLUSION: 1. No acute abnormality demonstrated. 2. Heterogeneous liver without measurable mass. 3. Small and heterogeneous spleen without a measurable mass. 4. Cortical thinning and scarring of the right kidney. 5. Previous cholecystectomy. Calixto Woodruff MD Chest CT 07/09/16 0000 Signed Impressions: Service Date/Time: Saturday, July 09, 2016 14:43 - CONCLUSION: 1. Small right pleural effusion and minimal right basilar consolidation. 2. 6 mm left basilar nodule. Followup CT chest 6 months recommended. Florian Pepper MD Chest X-Ray 07/08/16 0000 Signed Impressions: Service Date/Time: Friday, July 08, 2016 16:26 - CONCLUSION: Chronic right lung base opacity unchanged. No new pulmonary opacity. Alexandru Lynch MD Lower Extremity Ultrasound 06/25/16 0000 Signed Impressions: Service Date/Time: Saturday, June 25, 2016 15:56 - CONCLUSION: Negative exam with no evidence of deep venous thrombosis. Soft tissue edema. Mike Leija MD Port Line Insertion 06/20/16 0000 Signed Impressions: Service Date/Time: Monday, June 20, 2016 08:53 - CONCLUSION: Uncomplicated ultrasound and fluoroscopic guided implanted central venous port catheter placement as described in detail above. An 8 [employer] port was placed. Kevan Salgado Jr., MD Chest X-Ray 06/17/16 0000 Signed Impressions: Service Date/Time: Friday, June 17, 2016 14:12 - CONCLUSION: Right base infiltrate and small effusion. Calixto Woodruff MD Physical Exam GENERAL: awake and alert. NAD SKIN: Warm and dry. Rash on face around eyes, nose lips and chin, red, with some crusting. Rash in back all coalesced, red and some with crusts, same as in her buttocks and also some in the groin areas. Has some kind of chemical dermatitis around her EC fistula Has bullous rash in her fingers both hands. HEENT: [place] conjunctiva. No petechia or hemorrhage. No scleral icterus. Moist oral mucosa. NECK: Supple and not tender, no meningeal signs. No lymphadenopathy. CARDIOVASCULAR: Regular rate and rhythm. No murmur, no rub. RESPIRATORY: Coarse BS tatyana. Port L upper chest looks ok, currently accessed. ABDOMEN: Soft, nondistended. a lot of bilious ouput from her EC fistula with dermatitis type redness around this. There is mild tenderness on palpation of the abdomen especially in the midline. No guarding. No rebound. EXTREMITIES: LBKA stump with dry intact dressing. NEUROLOGICAL: Grossly non-focal PSYCH: Calm and cooperative LINE: Port looks ok. Assessment & Plan Remarks IMPRESSION Infection LBKA stump, C/S Klebsiella ESBL+ and Morganella - S/P debridement - S/P Rx Multiple Abx allergy - has tolerated Cephalosporins in the past PVD Previous abdominal OR for ischemic bowel, has fistula - has increased output Cough, better Fevers, etiology? better - has one (+) BC from the port, ?significance Rash on face and back, looks worse, etiology? RECOMMENDATION Continue Vancomycin for Staph hominis Restart Valtrex Await metabolic work-up Await path report skin biopsy Follow new C/S Will need removal of port Sara Greenfield MD Jul 25, 2016 16:43
[2016-07-25] MEDS: GABAPENTIN 100 MG CAP PO SCH (20:50)
[2016-07-25] MEDS: prednisoLONE ACETATE 1% OPHT SUSP 5 ML BTL LEFT EYE SCH (20:54)
[2016-07-25] MEDS: ERYTHROMYCIN 0.5% OPTH OINT 3.5 GM TUBO LEFT EYE SCH (20:55)
[2016-07-25] MEDS: CLINIMIX E 5/25 2000 mL- >42 mls/hr IV-CENTRAL SCH ×3 (20:59)
[2016-07-25] MEDS: VANCOMYCIN INJ 1,250 MG in SODIUM CHLOR 0.9% 250 ML INJ 250 ML IV SCH (22:23)
[2016-07-26 05:20] VITALS: BP 144/65; PULSE 105; RESP 16; TEMP 98.3; O2SAT 94
[2016-07-26] MEDS: ALPRAZolam 0.25 MG TAB PO SCH ×3 (05:49→22:45)
[2016-07-26] MEDS: HYDROmorphone HCL PF 1 MG/ML VIAL IV PUSH PRN ×4 (05:49→22:41)
[2016-07-26] MEDS: valACYclovir HCL 500 MG TAB PO SCH ×3 (05:49→22:44)
[2016-07-26] MEDS: ERYTHROMYCIN 0.5% OPTH OINT 3.5 GM TUBO LEFT EYE SCH ×3 (05:52→22:53)
[2016-07-26] MEDS: CLOTRIMAZOLE 1% CREAM 15 GM TOPICAL SCH ×3 (05:53→22:48)
[2016-07-26 08:00] VITALS: BP 154/65; PULSE 105; RESP 20; TEMP 99.1; O2SAT 93
[2016-07-26] MEDS: CALCITRIOL 0.25 MCG CAP PO SCH (08:35)
[2016-07-26] MEDS: PANTOPRAZOLE SOD 20 MG DELAYED RELEASE TAB PO SCH ×2 (08:35→22:45)
[2016-07-26] MEDS: RIVAROXABAN 20 MG TAB PO SCH (08:35)
[2016-07-26] MEDS: LACTOBACILLUS ACIDOPHILUS TAB PO SCH ×3 (08:35→17:34)
[2016-07-26] MEDS: MAGNESIUM OXIDE 400 MG TAB PO SCH ×2 (08:36→22:45)
[2016-07-26] MEDS: DILTIAZEM-CD 120 MG CAP ER PO SCH (08:36)
[2016-07-26] MEDS: METHADONE HCL 10 MG TAB PO SCH (08:36)
[2016-07-26] MEDS: SERTRALINE HCL 100 MG TAB PO SCH (08:37)
[2016-07-26] MEDS: CALCIUM/VITAMIN D 250 MG/125 U TAB PO SCH ×2 (08:37→22:46)
[2016-07-26] MEDS: QUEtiapine FUMARATE 25 MG TAB PO SCH (08:37)
[2016-07-26] MEDS: FERROUS SULFATE 325 MG (65 MG ELEMENTAL IRON) TAB PO SCH (08:37)
[2016-07-26] MEDS: SODIUM CHLORIDE 0.9% FLUSH 5 ML FLUSH IV FLUSH SCH ×2 (09:00→22:23)
[2016-07-26] MEDS: NYSTAT/DIPHENHY/LIDO MOUTHWASH (Adult) 120ML SWISH-SWAL SCH ×4 (09:00→22:47)
[2016-07-26] MEDS: NYSTATIN 100,000 U/GM PWD 15 GM BTL TOPICAL SCH ×2 (09:26→22:46)
[2016-07-26] MEDS: COLLAGENASE OINT 30 GM TUBE TOP SCH (09:26)
[2016-07-26] MEDS: prednisoLONE ACETATE 1% OPHT SUSP 5 ML BTL LEFT EYE SCH ×2 (09:26→22:49)
--- NOTE | 2016-07-26 10:47 | HHI.HCPN ---
Reason for visit a. To assist with evaluation and management of symptoms including: Pain, anxiety, depression b. To assist medical decision maker(s) with: better understanding of current medical conditions; weighing benefits/burdens of medical treatment options; making medical treatment decisions. . Subjective/Interval History INTERVAL NOTE: The patient has been afebrile since yesterday. She continues to complain of the pain at times, and has been getting about 3 mg of IV hydromorphone each day as well as 30 or 45 mg of hydrocodone by mouth each day. She has now received her fourth dose of the 2.5 mg methadone, and she has no sedation. She also is on the every 8 hourly low-dose Xanax, but feels like she needs more. I looked at the wound on the left BKA stump, and it does still have a bit of an open area and its lateral portion. I did not undress and look at the skin breakdown around the fistula, but I am told that it may be getting worse. As per initial consultation note on 07/24/16 by Ronald Edouard MD: This 71-year-old female has a complex medical history over the past year. The patient was admitted to the hospital and sepsis and shock in October 2015 and was found to have ischemic bowel. She underwent surgery 11/13/15 with resection of some large and small bowel (as well as the gallbladder), but developed complications including an enterocutaneous fistula and required a second resection of bowel on 11/26/15. The patient eventually was able to be sent to SNF , but returned to the hospital again on 03/11/16 with abdominal pain and had infection involving the fistula. That was treated, and she was able to go home briefly. She returned to the hospital on 04/04/16 because of left leg pain that was found to be caused by ischemia. She underwent treatment with TPA and was kept on anticoagulation, and was discharged again. She returned to the hospital on 04/28/16 with gangrene of the left foot, and was found to have multiple thrombi in major vessels. 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 On 06/14/16, while at the nursing facility, the patient was moving in the bed and there was a dehiscence of the left leg stump wound, and she was sent back to the hospital for admission. Couple on arrival at the hospital, she was found to have a temperature of 100.2 , and she was readmitted. 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 Cultures from the stump wound grew both Klebsiella ESBL and a Morganella species. She was taken to the operating room for debridement and placement of a wound VAC. The fistula seemed to finally close on 06/25/16, but it reopened and has remained open since 07/12/16. She again had fever on 07/21/16 , and additional cultures were done. Staphylococcus hominis has been grown in the blood cultures. The patient has developed a worsening rash on her face, upper back, sacral/ buttock area, and now over the past few days worsening with development of bullae on multiple fingertips. The patient thinks there were vesicles on the rash across her back and on her face a week or 2 ago, but those seem to have all collapsed and dried. The patient has had worsening anxiety over the past several months that she has undergone multiple hospitalizations and complications. She has been receiving some PRN Xanax here, and she says that does help, but it is not scheduled. She has also had pain that has worsened, particularly in her abdomen that she relates to the enterocutaneous fistula, and on her skin on the sacral and upper back area, as well as some skin related to the facial rash. She has received intermittent [place] 10 mg and Dilaudid 1 mg IV a few times per day, and says they helped temporarily. Palliative Care was consulted to assist with symptom management, and to enter in discussions regarding goals of care in the benefits and burdens of the various illnesses and treatment options. . Family/friend interactions Discussed by telephone again with her close friend/HCS Anuradha. . Advance Directives Living Will: Never completed Health Care Surrogate: Copy in medical record Durable Power of Fluorescent Lamp Replacer: Never completed Advance Directive Specifics Health Care Surrogate(s): Primary HCS is her close friend Anuradha Christian, and secondary is her Dwight Wilson. The HCS that is in the record here is not dated. . Objective Vital Signs Date Time Temp Pulse Resp B/P Pulse Ox O2 Delivery O2 Flow Rate FiO2 07/26/16 08:00 99.1 105 20 154/65 93 07/26/16 05:20 98.3 105 16 144/65 94 07/26/16 04:00 Room Air 07/26/16 00:00 Room Air 07/25/16 23:47 96.4 101 16 117/68 94 07/25/16 20:00 Room Air 07/25/16 20:00 99.6 100 18 127/67 95 07/25/16 16:20 97.9 100 18 127/69 98 07/25/16 16:00 97.5 93 18 125/67 95 07/25/16 12:26 Room Air 07/25/16 12:00 99.9 101 17 143/83 95 07/25/16 12:00 99.9 101 17 143/83 95 Intake & Output 07/26/16 07/26/16 07:00 19:00 Intake Total 1275 ml Output Total 1790 ml Balance -515 ml Intake Oral 360 ml IV Total 915 ml Output Urine Total 590 ml Stool Total 1200 ml # Bowel Movements 0 Physical Exam CONSTITUTIONAL/GENERAL: This is a weak, depressed appearing patient, in no apparent distress. TUBES/LINES/DRAINS: Accessed port, dressing on left BKA stump, large pad/ dressing over central abdomen SKIN: Skin temperature appropriate. Not diaphoretic. The patient has a diffuse , patchy rash involving both sides of her face (she says there were vesicles that have dried up), and a similar patchy rash over the entire upper half of her back. There is macerated/moist redness involving a large, perhaps 15-20 cm , area over her sacrum and upper buttocks. In addition, there are several 2 cm bullae involving fingertips or in the area of the DIP joints of fingers. There are no vesicles or bullae or evidence of rash on her legs or on the right foot. EYES: Pupils equal and round and reactive. Extraocular motions intact. No scleral icterus. Some mild injection involving the sclera on the left. ENT: Hearing grossly normal. Nose without bleeding or purulent drainage. Throat without visible erythema, exudates, masses, or lesions. CARDIOVASCULAR: Regular rate and rhythm without murmurs, gallops, or rubs. No JVD. Peripheral pulses symmetric. RESPIRATORY/CHEST: Symmetric, unlabored respirations. Clear to auscultation. Breath sounds equal bilaterally. No wheezes, rales, or rhonchi. GASTROINTESTINAL: Soft, some tenderness across the lower half without guarding or rebound. Large dressing and corset present across the mid abdomen and I did not remove that to examine the fistula. Bowel sounds present MUSCULOSKELETAL: Extremities without clubbing, cyanosis, or edema. Some tenderness is present following the vesicles/bullae of the fingertips.. No calf tenderness on the right. No mottling or clubbing. NEUROLOGICAL: Awake and alert. Motor and sensory grossly within normal limits. Follows commands. Cognitively sharp. Moves all extremities. PSYCHIATRIC: Appears depressed, tearful at times, and has anxiety episodes lasting a couple minutes where she trembles. No apparent hallucinations or other psychotic thought process. . Diagnostic Tests Laboratory Laboratory Tests Test 07/24/16 07/24/16 07/25/16 07/25/16 06:19 13:32 03:22 15:30 White Blood Count 8.8 TH/MM3 (4.0-11.0) Red Blood Count 2.97 MIL/MM3 (4.00-5.30) Hemoglobin 9.6 GM/DL (11.6-15.3) Hematocrit 28.4 % (35.0-46.0) Mean Corpuscular Volume 95.8 FL (80.0-100.0) Mean Corpuscular Hemoglobin 32.3 PG (27.0-34.0) Mean Corpuscular Hemoglobin 33.7 % Concent (32.0-36.0) Red Cell Distribution Width 19.2 % (11.6-17.2) Platelet Count 458 TH/MM3 (150-450) Mean Platelet Volume 9.3 FL (7.0-11.0) Neutrophils (%) (Auto) 56.9 % (16.0-70.0) Lymphocytes (%) (Auto) 24.2 % (9.0-44.0) Monocytes (%) (Auto) 8.8 % (0.0-8.0) Eosinophils (%) (Auto) 8.8 % (0.0-4.0) Basophils (%) (Auto) 1.3 % (0.0-2.0) Neutrophils # (Auto) 5.0 TH/MM3 (1.8-7.7) Lymphocytes # (Auto) 2.1 TH/MM3 (1.0-4.8) Monocytes # (Auto) 0.8 TH/MM3 (0-0.9) Eosinophils # (Auto) 0.8 TH/MM3 (0-0.4) Basophils # (Auto) 0.1 TH/MM3 (0-0.2) CBC Comment DIFF FINAL Differential Comment Sodium Level 142 MEQ/L 145 MEQ/L (136-145) (136-145) Potassium Level 2.8 MEQ/L 2.9 MEQ/L (3.5-5.1) (3.5-5.1) Chloride Level 109 MEQ/L 113 MEQ/L (98-107) (98-107) Carbon Dioxide Level 25.3 MEQ/L 24.0 MEQ/L (21.0-32.0) (21.0-32.0) Anion Gap 8 MEQ/L (5-15) 8 MEQ/L (5-15) Blood Urea Nitrogen 14 MG/DL (7-18) 11 MG/DL (7-18) Creatinine 0.49 MG/DL 0.43 MG/DL (0.50-1.00) (0.50-1.00) Estimat Glomerular Filtration 125 ML/MIN 145 ML/MIN Rate (>89) (>89) Random Glucose 139 MG/DL 112 MG/DL (74-106) (74-106) Calcium Level 8.0 MG/DL 8.1 MG/DL (8.5-10.1) (8.5-10.1) Vitamin B12 Level 401 PG/ML (193-986) Urine Eosinophils FEW /HPF (NONE SEEN) Result Diagram: 07/24/16 0619 07/25/16 0322 Microbiology Microbiology Date/Time Procedure Status Source Growth 07/24/16 13:32 Blood Fungal Culture Received Blood Other Pending 07/24/16 13:32 Blood Fungal Culture Received Blood Other Pending Imaging Last Impressions Liver Ultrasound 07/12/16 0000 Signed Impressions: Service Date/Time: Tuesday, July 12, 2016 18:07 - CONCLUSION: 1. No acute abnormality demonstrated. 2. Heterogeneous liver without measurable mass. 3. Small and heterogeneous spleen without a measurable mass. 4. Cortical thinning and scarring of the right kidney. 5. Previous cholecystectomy. Calixto Woodruff MD Chest CT 07/09/16 0000 Signed Impressions: Service Date/Time: Saturday, July 09, 2016 14:43 - CONCLUSION: 1. Small right pleural effusion and minimal right basilar consolidation. 2. 6 mm left basilar nodule. Followup CT chest 6 months recommended. Florian Pepper MD Chest X-Ray 07/08/16 0000 Signed Impressions: Service Date/Time: Friday, July 08, 2016 16:26 - CONCLUSION: Chronic right lung base opacity unchanged. No new pulmonary opacity. Alexandru Lynch MD Lower Extremity Ultrasound 06/25/16 0000 Signed Impressions: Service Date/Time: Saturday, June 25, 2016 15:56 - CONCLUSION: Negative exam with no evidence of deep venous thrombosis. Soft tissue edema. Mike Leija MD [place] Insertion 06/20/16 0000 Signed Impressions: Service Date/Time: Monday, June 20, 2016 08:53 - CONCLUSION: Uncomplicated ultrasound and fluoroscopic guided implanted central venous port catheter placement as described in detail above. An 8 Nepali Power port was placed. Kevan Salgado Jr., MD Procedures Stump debridement and wound VAC placement 06/16/16 TPN Skin biopsies, face 07/24/16 . 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 (4) sepsis/shock secondary to ischemic bowel, October 2015 (5) short-bowel syndrome, TPN-dependent (6) rash: Significant exanthem and enanthem with prior vesicles and new/ worsening multiple finger bullae Comment: Skin biopsy 07/24/16 (7) pulmonary nodule on CT scan, 2.6 mm at the left base (8) depression (9) COPD, not oxygen dependent (10) history of breast cancer (11) anxiety (12) anemia Symptom Scale: (1) pain 0-10 Scale: 6 (she has been receiving [place] and parenteral hydromorphone) (2) anxiety 0-10 Scale: 4 (she has had occasional doses of Xanax that she says helps, but her anxiety is worsening overall) (3) depression 0-10 Scale: 4 (long-term, was on Celexa at home, now on Zoloft; remains tearful frequently) Pertinent Non-Medical Issues Psychosocial: Second marriage for about 1 year, but most of that time in the hospital or SNF. No children, but has close friend Anuradha. Spiritual: Evaluation pending Legal: The patient has capacity for decision-making, and has designated her friend Anuradha and her Dwight as primary and secondary HCS respectively Ethical issues impacting care: None. . Important Contacts Primary HCS, close friend Anuradha Christian [phone] : Dwight Wilson [phone] . Prognosis She has suffered multiple illnesses, infections, and complications during the last 10 months, and now is TPN dependent every 2 short-bowel syndrome. Her overall prognosis would appear to be poor, and she would be an appropriate hospice candidate if she elected to stop all aggressive care including TPN. . Code Status: Full Code Plan * FULL CODE * GOALS: The patient does want to continue AGGRESSIVE CARE at this time. She is frustrated by all the complications and the debility caused by pain, anxiety , and depression, but wants to remain a full code and continue all care available for now. She has a good understanding of hospice, as she has been the primary caregiver for 3 of her relatives who were on hospice and at end-of- life. She does not desire hospice services at this time. * DECISION-MAKING: The patient is capacitated for decision making, and has designated her close friend Anuradha Christian and her Dwight Wilson as primary and secondary HCS respectively. * SYMPTOMS: -- Pain: The patient has ongoing abdominal pain as well as pain related to the multiple skin lesions and maceration. She continues to need PRN hydrocodone and hydromorphone, and we are titrating up her methadone I began scheduled low-dose methadone on 07/24/16; dose increased 07/26/16. -- Anxiety: This has worsened steadily throughout her several months of medical challenges. I began scheduled low-dose Xanax on 07/24/16, dose increased to 07/26/16. -- Depression: I suspect most of her depression is a combination of some chronic depression (she had been on Celexa for quite some time at home) and some situational depression at this time. She remains on Zoloft. -- Rash: She has an impressive rash, and it includes some worsening/ expanding bullae on multiple fingers now. A circular/bullous rashes like this can have etiologies that include drug reaction, infection (bacterial or vital), ischemia, metabolic diseases like porphyrias, a pemphigoid disease, and others. Biopsies were obtained 07/24/16. * Palliative Care will continue to follow the patient during this hospitalization. . Time Spent Total Floor Time (mins): 39 Face to Face Time (mins): 24 >50% Counseling/Coord of Care: Yes (d/w RN) Attestation To help prompt me to consider important information that might be impacting today's encounter and assessment, information from prior notes written by myself or my colleagues may have been "brought forward" into today's note. My signature on this note, however, is an attestation that I personally performed the exam, history, and/or decision-making noted today, and, unless otherwise indicated, the interactions with patient, family, and staff as well as the review of records all occurred today. I also attest that the listed assessment and stated plan reflect my best clinical judgment today based on the combination of historical information, prior notes, and today's exam/ interactions. When time spent is documented, it refers only to time spent today by the signer, or if indicated, combined time spent today by collaborating physician/nurse practitioner. Dalila Edouard MD Jul 26, 2016 10:47
[2016-07-26 12:00] VITALS: BP 126/68; PULSE 112; RESP 20; TEMP 100.3; O2SAT 92
--- NOTE | 2016-07-26 13:44 | HHI.IDPN ---
Subjective Subjective Remarks Notes reviewed D/W RN Temps 100+ this morning Having a lot of liquid stool Rash on her face, back and buttocks same as yesterday, painful and itchy Bullous lesions in fingers are coalescing No new (+) BC 07/15, 07/16, 07/20 BC with Staph hominis Echo with possible MV vegetation Antibiotics Vancomycin Lines Port Past Medical History 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 Vital Signs Date Time Temp Pulse Resp B/P Pulse Ox O2 Delivery O2 Flow Rate FiO2 07/26/16 11:24 Room Air 07/26/16 08:00 99.1 105 20 154/65 93 07/26/16 05:20 98.3 105 16 144/65 94 07/26/16 04:00 Room Air 07/26/16 00:00 Room Air 07/25/16 23:47 96.4 101 16 117/68 94 07/25/16 20:00 Room Air 07/25/16 20:00 99.6 100 18 127/67 95 07/25/16 16:20 97.9 100 18 127/69 98 07/25/16 16:00 97.5 93 18 125/67 95 07/25/16 07/25/16 07/26/16 15:00 23:00 07:00 Intake Total 1995 ml 120 ml 1155 ml Output Total 1850 ml 240 ml 1550 ml Balance 145 ml -120 ml -395 ml Intake Oral 240 ml 120 ml 240 ml IV Total 1340 ml 915 ml TPN/PPN 415 ml Output Urine Total 850 ml 240 ml 350 ml Stool Total 1000 ml 1200 ml # Bowel Movements 0 0 . Laboratory Tests Test 07/24/16 07/25/16 13:32 03:22 Vitamin B12 Level 401 PG/ML Sodium Level 145 MEQ/L Potassium Level 2.9 MEQ/L Chloride Level 113 MEQ/L Carbon Dioxide Level 24.0 MEQ/L Anion Gap 8 MEQ/L Blood Urea Nitrogen 11 MG/DL Creatinine 0.43 MG/DL Estimat Glomerular Filtration 145 ML/MIN Rate Random Glucose 112 MG/DL Calcium Level 8.1 MG/DL Microbiology Date/Time Procedure Status Source Growth 07/24/16 13:32 Blood Fungal Culture Received Blood Other Pending 07/24/16 13:32 Blood Fungal Culture Received Blood Other Pending Imaging Liver Ultrasound 07/12/16 0000 Signed Impressions: Service Date/Time: Tuesday, July 12, 2016 18:07 - CONCLUSION: 1. No acute abnormality demonstrated. 2. Heterogeneous liver without measurable mass. 3. Small and heterogeneous spleen without a measurable mass. 4. Cortical thinning and scarring of the right kidney. 5. Previous cholecystectomy. Calixto Woodruff MD Chest CT 07/09/16 0000 Signed Impressions: Service Date/Time: Saturday, July 09, 2016 14:43 - CONCLUSION: 1. Small right pleural effusion and minimal right basilar consolidation. 2. 6 mm left basilar nodule. Followup CT chest 6 months recommended. Florian Pepper MD Chest X-Ray 07/08/16 0000 Signed Impressions: Service Date/Time: Friday, July 08, 2016 16:26 - CONCLUSION: Chronic right lung base opacity unchanged. No new pulmonary opacity. Alexandru Lynch MD Lower Extremity Ultrasound 06/25/16 0000 Signed Impressions: Service Date/Time: Saturday, June 25, 2016 15:56 - CONCLUSION: Negative exam with no evidence of deep venous thrombosis. Soft tissue edema. Mike Leija MD [place] Insertion 06/20/16 0000 Signed Impressions: Service Date/Time: Monday, June 20, 2016 08:53 - CONCLUSION: Uncomplicated ultrasound and fluoroscopic guided implanted central venous port catheter placement as described in detail above. An 8 [place] Power port was placed. Kevan Salgado Jr., MD Chest X-Ray 06/17/16 0000 Signed Impressions: Service Date/Time: Friday, June 17, 2016 14:12 - CONCLUSION: Right base infiltrate and small effusion. Calixto Woodruff MD Physical Exam GENERAL: awake and alert. NAD SKIN: Warm and dry. Rash on face around eyes, nose lips and chin, red, with crusting. Rash in back all coalesced, red and some with crusts, same as in her buttocks and also some in the groin areas. Has some kind of chemical dermatitis around her EC fistula Has bullous rash in her fingers both hands. HEENT: [employer] conjunctiva. No petechia or hemorrhage. No scleral icterus. Moist oral mucosa. NECK: Supple and not tender, no meningeal signs. No lymphadenopathy. CARDIOVASCULAR: Regular rate and rhythm. No murmur, no rub. RESPIRATORY: Coarse BS tatyana. Port L upper chest looks ok, currently accessed. ABDOMEN: Soft, nondistended. a lot of bilious ouput from her EC fistula with dermatitis type redness around this. There is mild tenderness on palpation of the abdomen especially in the midline. No guarding. No rebound. EXTREMITIES: LBKA stump with dry intact dressing. NEUROLOGICAL: Grossly non-focal PSYCH: Calm and cooperative LINE: Port looks ok. Assessment & Plan Remarks IMPRESSION Infection LBKA stump, C/S Klebsiella ESBL+ and Morganella - S/P debridement - S/P Rx Multiple Abx allergy - has tolerated Cephalosporins in the past PVD Previous abdominal OR for ischemic bowel, has fistula - has increased output Cough, better Fevers, etiology? up again Staph hominis sepsis, has MV vegetation Rash on face and back, looks worse, etiology? RECOMMENDATION Continue Vancomycin for Staph hominis Repeat BC - if (+) remove port and place a central line Check stool for C diff UA and C/S Continue Valtrex Add po Vanco Add Diflucan - empiric antifungal agent Await metabolic work-up Await path report skin biopsy Follow new C/S Will follow prn over next few days due to inclement weather conditions. If any change in clinical condition please do not hesitate to contact me D/W Sara Beasley MD Jul 26, 2016 13:44
[2016-07-26] MEDS: ACETAMINOPHEN 325 MG TAB PO PRN (13:48)
[2016-07-26] MEDS: ACETAMINOPHEN/HYDROcodone 325 MG/10 MG TAB PO PRN (13:49)
[2016-07-26] MEDS: FLUCONAZOLE 400 MG PREMIX BAG 200 ML IV SCH (13:53)
[2016-07-26] MEDS ORDERED: ALPRAZolam 0.25 MG TAB PO PRN (14:00)
--- NOTE | 2016-07-26 14:50 | HHI.PR ---
Subjective Remarks poor po appetite abdominal discomfort Objective Vitals Vital Signs Date Time Temp Pulse Resp B/P Pulse Ox O2 Delivery O2 Flow Rate FiO2 07/26/16 12:00 100.3 112 20 126/68 92 07/26/16 11:24 Room Air 07/26/16 08:00 99.1 105 20 154/65 93 07/26/16 05:20 98.3 105 16 144/65 94 07/26/16 04:00 Room Air 07/26/16 00:00 Room Air 07/25/16 23:47 96.4 101 16 117/68 94 07/25/16 20:00 Room Air 07/25/16 20:00 99.6 100 18 127/67 95 07/25/16 16:20 97.9 100 18 127/69 98 07/25/16 16:00 97.5 93 18 125/67 95 I/O 07/25/16 07/25/16 07/25/16 07/26/16 07/26/16 07/26/16 07:00 15:00 23:00 07:00 15:00 23:00 Intake Total 100 ml 1995 ml 120 ml 1155 ml Output Total 825 ml 1850 ml 240 ml 1550 ml Balance -725 ml 145 ml -120 ml -395 ml Intake Oral 100 ml 240 ml 120 ml 240 ml IV Total 1340 ml 915 ml TPN/PPN 415 ml Output Urine Total 325 ml 850 ml 240 ml 350 ml Stool Total 500 ml 1000 ml 1200 ml # Bowel Movements 0 0 Result Diagram: 07/24/16 0619 07/25/16 0322 Imaging Last Impressions Liver Ultrasound 07/12/16 0000 Signed Impressions: Service Date/Time: Tuesday, July 12, 2016 18:07 - CONCLUSION: 1. No acute abnormality demonstrated. 2. Heterogeneous liver without measurable mass. 3. Small and heterogeneous spleen without a measurable mass. 4. Cortical thinning and scarring of the right kidney. 5. Previous cholecystectomy. Calixto Woodruff MD Chest CT 07/09/16 0000 Signed Impressions: Service Date/Time: Saturday, July 09, 2016 14:43 - CONCLUSION: 1. Small right pleural effusion and minimal right basilar consolidation. 2. 6 mm left basilar nodule. Followup CT chest 6 months recommended. Florian Pepper MD Chest X-Ray 07/08/16 0000 Signed Impressions: Service Date/Time: Friday, July 08, 2016 16:26 - CONCLUSION: Chronic right lung base opacity unchanged. No new pulmonary opacity. Alexandru Lynch MD Lower Extremity Ultrasound 06/25/16 0000 Signed Impressions: Service Date/Time: Saturday, June 25, 2016 15:56 - CONCLUSION: Negative exam with no evidence of deep venous thrombosis. Soft tissue edema. Mike Leija MD Port Line Insertion 06/20/16 0000 Signed Impressions: Service Date/Time: Monday, June 20, 2016 08:53 - CONCLUSION: Uncomplicated ultrasound and fluoroscopic guided implanted central venous port catheter placement as described in detail above. An 8 [place] Power port was placed. Kevan Salgado Jr., MD Objective Remarks awake and alert skin: periorbital and perioral, upper back area - dry erythematous lesions roof of the mouth with nodule lungs - decrease breath sounds regular rhythm abdomen soft, post op wound midline incision, no foul discharge with surrounding erythema, minimal drainage on dressing when removed extremities no edema, no calf tenderness finger -digital ends with blistering formation Procedures Left stump debridement by Dr. Hill on 06/15/16 A/P Problem List: (1) Infection of amputation stump ICD Code: T87.40 Status: Resolved (2) 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 (3) Hypercoagulable state ICD Code: D68.59 Status: Chronic (4) HTN (hypertension) ICD Code: I10 Status: Chronic (5) Anxiety about health ICD Code: F41.8 Status: Chronic (6) Diarrhea ICD Code: R19.7 Status: Acute (7) Severe protein-calorie malnutrition ICD Code: E43 Status: Acute (8) Fungal skin infection ICD Code: B36.9 Status: Acute (9) Transient lingual papillitis ICD Code: K14.0 Status: Acute (10) Hospital acquired PNA ICD Code: J18.9 Status: Acute (11) Major depressive disorder, recurrent severe without psychotic features ICD Code: F33.2 Status: Acute (12) Disseminated herpes zoster ICD Code: B02.7 Status: Acute Assessment and Plan The patient is a 70-year-old female with a medical history significant for ischemic bowel with resection in Oct 2015 and development of chronic enterocutaneous fistula, asthma, depression, COPD, severe peripheral vascular disease status post left BKA, multiple hospitalizations and readmissions. The patient was [facility] from the [facility] The stitches on the left stump were taken out 2 weeks ago. She reports that the wound has been opening up when she participated with physical therapy. She returned due to wound dehiscence and infection. -staph Hominis bacteremia -Perioral, periorbital lesions- biopsies pending ID ff/Dr. Greenfield - magic mouthwash, pain control. bottom is excoriated, guevara and flexiseal ordered on 07/21 to avoid further skin breakdown. She has significant skin breakdown, wound care is following. -off IV Acyclovir- discontinue. changed to Valtrex till 08/04 on IV Vancomycin - pt does have port. -Enterocutaneous fistula. per surgery, no further surgical intervention. Optimize nutrition with PO and TPN. wound care. -Infected left BKA stump: Patient status post BKA on 05/02/16. Dr. Hill ff. S/P debridement. Wound cultures growing Klebsiella ESBL positive and Morganella s/p tx with zerbaxa - Dilaudid IV for breakthrough pain. Continue Percocet. - Methadone added to regimen - Management as per vascular surgery s/p wound vac and removal, wound appears clean. abx per ID. -Fungal rash/groin - cont -Hypercoagulable state: History of ischemic bowel and severe peripheral vascular disease. - Continue Xarelto -Anxiety and depression: -more feisty. no outbursts of crying on Seroquel and Zoloft. on Zoloft pt refused cymbalta. Consider Remeron. palliative care for support, pain control, -COPD: Breathing treatments as needed. Stable. 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 cont Imodium as needed. -Severe protein-calorie malnutrition- Patient currently on TPN and being followed by dietitian. Ensure 1 can by mouth 3 times a day. -Skin care. She has excoriated skin over the buttock, abdomen and perineum. Continue anti-fungal cream. Has guevara and rectal seal to prevent further skin breakdown. -GERD: Continue PPI Hypokalemia - give 40 meq Kcl in IV over 4 hrs, -Thrush. Mycelex buccal. -Pulmonary nodule. Rpt CT in 6 mos GI prophylaxis: PPI. DVT PPx: Xarelto Problem Qualifiers (1) HTN (hypertension): Qualified Code: I10 - Essential hypertension (2) Diarrhea: Qualified Code: R19.7 - Diarrhea, unspecified type Maricarmen Sousa MD Jul 26, 2016 14:50
[2016-07-26 15:31] LABS: BACTERIA, URINE OCC /hpf; BLOOD, URINE MOD (NEG); COMMENT (UR) CULTURE INDICATED; CULTURE IF INDICATED CULTURE INDICATED; GLUCOSE,URINE NEG (NEG); KETONE, URINE NEG (NEG); MUCUS URINE FEW /lpf (OCC); NITRITE,URINE NEG (NEG); SQUAMOUS EPITHELIAL CELL URINE <1 /hpf (0-5); URINE COLOR YELLOW (YELLW/STRAW)
--- NOTE | 2016-07-26 15:39 | PD.CAR.PN ---
CVT Progress Note Subjective/Hospital Course: 70-year-old female with a complex medical and surgical history of peripheral vascular disease and multiple related problems presents now status post BK amputation about a month half ago. Patient went to fdc and apparently braced herself on the stump several times in bed in hit it against either floor or the chair not quite clear. Part of the stump opened up and at this point patient is dehiscence of skin deeper tissue seemed to be still intact. 06/16/16 Patient underwent yesterday debridement of the stump with wound VAC placement. The dehiscence is fortunately superficial involving skin and muscle in this as been debrided successfully while the rest of the tissues of bleeding and are viable. Wound VAC has been placed Cultures have been reviewed and antibiotics can be adjusted by medicine as appropriate We'll continue current care and patient should be able to go to fdc with a wound VAC by Sunday Patient's nutritional status is very poor with a low albumen and prealbumin level and therefore nutritional evaluation and recommendations are requested I believe the patient is not taking sufficient by mouth in the fdc and may need supplemental enteral or parenteral feedings at this point 06/17/16 I reviewed the nutritional parameters and patient's prealbumin and transferrin levels a critically low indicating severe malnutrition. Patient's healing is impaired and so is the rehabilitative potential. After reviewing to nutritional recommendations once these are made, we will decide whether patient needs an [id number]-[id number]-[id number] placed for additional parenteral nutrition for short bowel syndrome Stump is nice and clean with minimal drainage from the wound VAC 06/19/16 Still awaiting nutritional consult and evaluation for patient has short gut syndrome and will probably need additional parenteral feedings. If so patient will need Gfuhub-p-Amtt placement for additional feedings Patient is taking excellent by mouth but despite that her nutritional status is poor and hence the healing issues Left BKA stump incision is clean and wound VAC is in place with minimal drainage and will need to be changed today Awaiting wound care to change the wound VAC. Infectious disease help is much appreciated 06/20/2016 Patient doing well at this time. Stump is clean and the wound VAC will be changed today Patient had [id number] placed by radiology for supplemental parenteral feedings. Grateful for the nutritional evaluation. Patient will be placed on TPN at about the 1500 non-protein calories a day split about 60-70% in glucose and about 30% in form of lipids Patient will likely have to be discharged on supplemental TPN in face of her short bowel syndrome 06/21/16 Patient is doing really well at this time She's taking good by mouth diet. 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 There is some granulation tissue which may eventually need to be debrided but at this point I would leave it alone. Stump wound VAC has been changed and this is clean and granulating nicely. Patient is currently on TPN which tolerating well. In face of her short bowel syndrome patient will need TPN after discharge from the hospital. Grateful to case management for making arrangements for the same 06/22/16 Vital signs stable patient is doing well. Her appetite has improved and patient is taking good by mouth diet and having regular bowel movements. The abdominal incision is completely healed and fistula has completely resolved. The BKA wound VAC has been changed and wound is clean and granulating nicely. Drybnk-n-Dpnh is being used for additional parenteral feedings necessary and short bowel syndrome and patient will be discharged on TPN. 06/23/16 Patient underwent today change of the wound VAC and the wound is clean. Next with will be the last wound VAC change and after that I plan to take the patient to the OR for irrigation and closure of the wound by the middle of the next week. 06/24/16 Patient doing very well at this time she is in a good mood and taking by mouth diet well Unfortunately due to the short bowel syndrome she need supplemental TPN feedings at this time Stump is healed nicely there is a small scab anterior to it and this should allow to fall off on its own Once the arrangements are made for outpatient TPN patient will be able to be discharged Awaiting case management to make the arrangements for outpatient TPN 06/25/16 Vital signs stable Patient is awake and alert and oriented, taking by mouth diet very well Abdomen is soft and the colocutaneous fistula is completely closed The BKA stump has an eschar and a scab but I would leave this alone because underneath its healing nicely. Patient remains on TPN considering the short gut syndrome and will go home on the same Mild anemia is dilutional due to TPN administration and intravenous fluids and does not require therapy at this time 06/26/16 Vital signs stable Patient is awake and alert and oriented, taking by mouth diet very well Abdomen is soft and the colocutaneous fistula is completely closed The BKA stump has an eschar and a scab but I would leave this alone because underneath its healing nicely. Patient remains on TPN considering the short gut syndrome and will go home on the same Mild anemia is dilutional due to TPN administration and intravenous fluids and does not require therapy at this time 06/27/16 Wound VAC has been removed by me and the the entire stump is healed very nicely except a small area but an inch length at the very lateral portion of the incision were we going to put a very small wound VAC on for another week or so. Patient can transfer to rehabilitation at any time as long as she can get intravenous TPN in the process 06/28/16 Wound VAC has been removed by me and the the entire stump is healed very nicely except a small area but an inch length at the very lateral portion of the incision were we going to put a very small wound VAC on for another week or so. Patient can transfer to rehabilitation at any time as long as she can get intravenous TPN Patient will need fpc TPN considering short gut syndrome and this can be done either in a fdc or at home I suspect this will be about a six-month process and after that patient may not need additional feedings if we can get her in a reasonable nutritional status in the meantime. I understand the difficulty this creates for case management to find her such an arrangement 06/29/16 Patient doing really well at this time taking good by mouth but due to the short bowel syndrome will require long-term TPN Stump is healing really nicely and the probably after this week we will remove the wound VAC and simply place wet-to-dry dressing and allow this to heal 06/30/16 Patient is doing well tolerates diet. Abdomen is soft with active bowel sounds Incisions are clean and dry Wound VAC last change will be next week and after that we going to remove the wound VAC and continue wet-to-dry dressing Stump is healing really nicely Due to TPN and other issues placement remains a problem 07/01/16 Abdomen soft and active bowel sounds Tolerates diet well Stump is clean and dry and I'll remove the wound VAC on Sunday after that patient will just be on wet-to-dry dressings until the stump heels Arrangements for discharge to difficult due to long-term TPN needs 07/03/16 Vital signs stable Stump is clean and wound VAC after next removal won't need to be applied again Patient will remain long-term on TPN and I'm waiting for case management to make discharge arrangements Will [facility] medicine kindly if patient can be transferred to medicine service at this time 07/14/16 Patient is a placement issue apparently is still in the hospital The left BKA stump is healed nicely except for very small air about 1 cm which is granulating in on the lateral aspect of the stump Apparently the enterocutaneous fistula was close for about month and a half and opened up 2 days ago draining some stool It should be noted that the bowel is quite close to the skin and patient is very thin and malnourished so it is not surprising that fistula opens and closes sporadically. With enteral and parenteral nutrition that should close but clearly patient is very frail and it could open up any time Nothing to add to care at this time 07/26/16 Discussed the patient with medical attending. She has systemic cutaneous herpes zoster and is on appropriate medications The drainage from anterior abdominal wall is very minimal however irritating to the skin of the abdominal wall in face of herpes and the nature of intestinal fluid. Just putting dressings will only worsen the situation so patient should be treated with the stoma and coverage of the skin. Unfortunately the colostomy material will not stick to the skin and the contents will leak underneath it. At point is best solution was due to apply Silvadene ointment daily and then dressing Patient's appetite is very poor sure refuses food and she remains on TPN although her GI tract is completely patent Her prognosis in general is for due to malnutrition short bowel syndrome and immune failure. Objective: Vital Signs Date Time Temp Pulse Resp B/P Pulse Ox O2 Delivery O2 Flow Rate FiO2 07/26/16 12:00 100.3 112 20 126/68 92 07/26/16 11:24 Room Air 07/26/16 08:00 99.1 105 20 154/65 93 07/26/16 05:20 98.3 105 16 144/65 94 07/26/16 04:00 Room Air 07/26/16 00:00 Room Air 07/25/16 23:47 96.4 101 16 117/68 94 07/25/16 20:00 Room Air 07/25/16 20:00 99.6 100 18 127/67 95 07/25/16 16:20 97.9 100 18 127/69 98 07/25/16 16:00 97.5 93 18 125/67 95 Labs: Laboratory Tests Test 07/26/16 14:30 Urine Color YELLOW (YELLW/STRAW) Urine Turbidity CLOUDY (CLEAR) Urine pH 7.0 (5.0-8.5) Urine Specific [place] 1.019 (1.002-1.035) Urine Protein 30 mg/dL (NEG-TRACE) Urine Glucose (UA) NEG mg/dL (NEG) Urine Ketones NEG mg/dL (NEG) Urine Occult Blood MOD (NEG) Urine Nitrite NEG (NEG) Urine Bilirubin NEG (NEG) Urine Urobilinogen LESS THAN 2.0 MG/DL (LESS THAN 2.0) Urine Leukocyte Esterase LARGE (NEG) Urine RBC /hpf (0-3) Urine WBC 95 /hpf (0-5) Urine Squamous Epithelial <1 /hpf (0-5) Cells Urine Bacteria OCC /hpf (NONE) Urine Mucus FEW /lpf (OCC) Microscopic Urinalysis Comment CULTURE INDICATED Result Diagram: 07/24/16 0619 07/25/16 0322 Janice Olvera MD Jul 26, 2016 15:39
[2016-07-26 16:00] VITALS: BP 118/61; PULSE 88; RESP 20; TEMP 95.7; O2SAT 93
[2016-07-26 16:41] LABS: C. DIFF EPI 027 PRESUMPTIVE NEGATIVE (NEGATIVE); C. DIFF TOXIN PCR NEGATIVE (NEGATIVE)
[2016-07-26 16:49] LABS: ALT (GPT) 13 U/L (10-53); AST (GOT) 20 U/L (15-37)
[2016-07-26 16:52] LABS: ALKALINE PHOSPHATASE 23 U/L (45-117); TOTAL BILIRUBIN ADULT LESS THAN 0.1 MG/DL (0.2-1.0)
[2016-07-26] MEDS: VANCOMYCIN INJ 1,250 MG in SODIUM CHLOR 0.9% 250 ML INJ 250 ML IV SCH ×2 (17:00→17:32)
[2016-07-26] MEDS: VANCOMYCIN 500 MG VIAL (FOR ORAL USE ONLY) PO SCH ×2 (17:33→22:47)
[2016-07-26 18:39] LABS: BICARBONATE 21.8 MEQ/L (21.0-32.0); POTASSIUM 3.6 MEQ/L (3.5-5.1)
[2016-07-26 19:45] VITALS: BP 100/55; PULSE 90; RESP 16; TEMP 96.6; O2SAT 92
[2016-07-26] MEDS: CLINIMIX E 5/25 2000 mL- >42 mls/hr IV-CENTRAL SCH ×3 (22:21)
[2016-07-26] MEDS: FAT EMULSION 20% INJ 250 ML (Twice weekly over 8 hours) IV-CENTRAL SCH (22:21)
[2016-07-26] MEDS: GABAPENTIN 100 MG CAP PO SCH (22:45)
[2016-07-27] MEDS: METHADONE HCL 10 MG TAB PO SCH ×3 (01:19→19:52)
[2016-07-27] MEDS: ACETAMINOPHEN/HYDROcodone 325 MG/10 MG TAB PO PRN ×3 (02:30→17:24)
[2016-07-27 03:50] VITALS: BP 122/63; PULSE 111; RESP 16; TEMP 100; O2SAT 93
[2016-07-27] MEDS: valACYclovir HCL 500 MG TAB PO SCH ×3 (05:25→22:56)
[2016-07-27] MEDS: HYDROmorphone HCL PF 1 MG/ML VIAL IV PUSH PRN ×2 (05:25→23:00)
[2016-07-27] MEDS: ALPRAZolam 0.25 MG TAB PO SCH ×3 (05:26→22:56)
[2016-07-27] MEDS: CLOTRIMAZOLE 1% CREAM 15 GM TOPICAL SCH ×3 (05:26→22:57)
[2016-07-27] MEDS: ERYTHROMYCIN 0.5% OPTH OINT 3.5 GM TUBO LEFT EYE SCH ×3 (05:27→22:57)
[2016-07-27 08:38] VITALS: BP 108/64; PULSE 91; RESP 18; TEMP 98.4; O2SAT 93
[2016-07-27] MEDS: RIVAROXABAN 20 MG TAB PO SCH (09:59)
[2016-07-27] MEDS: DILTIAZEM-CD 120 MG CAP ER PO SCH (09:59)
[2016-07-27] MEDS: SERTRALINE HCL 100 MG TAB PO SCH (09:59)
[2016-07-27] MEDS: LACTOBACILLUS ACIDOPHILUS TAB PO SCH ×3 (09:59→17:24)
[2016-07-27] MEDS: QUEtiapine FUMARATE 25 MG TAB PO SCH (10:00)
[2016-07-27] MEDS: VANCOMYCIN 500 MG VIAL (FOR ORAL USE ONLY) PO SCH ×4 (10:00→19:54)
[2016-07-27] MEDS: CALCIUM/VITAMIN D 250 MG/125 U TAB PO SCH ×2 (10:00→19:53)
[2016-07-27] MEDS: MAGNESIUM OXIDE 400 MG TAB PO SCH ×2 (10:00→19:51)
[2016-07-27] MEDS: FERROUS SULFATE 325 MG (65 MG ELEMENTAL IRON) TAB PO SCH (10:00)
[2016-07-27] MEDS: PANTOPRAZOLE SOD 20 MG DELAYED RELEASE TAB PO SCH ×2 (10:00→19:54)
[2016-07-27] MEDS: CALCITRIOL 0.25 MCG CAP PO SCH (10:04)
[2016-07-27] MEDS: SODIUM CHLORIDE 0.9% FLUSH 5 ML FLUSH IV FLUSH SCH ×2 (10:04→19:59)
[2016-07-27] MEDS: NYSTAT/DIPHENHY/LIDO MOUTHWASH (Adult) 120ML SWISH-SWAL SCH ×4 (11:57→19:50)
[2016-07-27] MEDS: VANCOMYCIN INJ 1,250 MG in SODIUM CHLOR 0.9% 250 ML INJ 250 ML IV SCH (11:58)
[2016-07-27] MEDS: COLLAGENASE OINT 30 GM TUBE TOP SCH (12:17)
[2016-07-27] MEDS: prednisoLONE ACETATE 1% OPHT SUSP 5 ML BTL LEFT EYE SCH ×2 (12:18→19:57)
[2016-07-27] MEDS: NYSTATIN 100,000 U/GM PWD 15 GM BTL TOPICAL SCH ×2 (12:18→19:57)
[2016-07-27 12:27] VITALS: BP 141/71; PULSE 101; RESP 18; TEMP 97.6; O2SAT 94
--- NOTE | 2016-07-27 13:00 | HHI.PR ---
Subjective Remarks patient more interactive po appetite slightly better- "trying" liquid stools- rectal bag Objective Vitals Vital Signs Date Time Temp Pulse Resp B/P Pulse Ox O2 Delivery O2 Flow Rate FiO2 07/27/16 12:27 97.6 101 18 141/71 94 07/27/16 08:38 98.4 91 18 108/64 93 07/27/16 03:50 100.0 111 16 122/63 93 07/26/16 21:00 Room Air 07/26/16 19:45 96.6 90 16 100/55 92 07/26/16 16:00 95.7 88 20 118/61 93 I/O 07/26/16 07/26/16 07/26/16 07/27/16 07/27/16 07/27/16 07:00 15:00 23:00 07:00 15:00 23:00 Intake Total 1155 ml 0 ml 60 ml 120 ml Output Total 1550 ml 800 ml 100 ml 350 ml Balance -395 ml -800 ml -40 ml -230 ml Intake Oral 240 ml 0 ml 60 ml 120 ml IV Total 915 ml Output Urine Total 350 ml 450 ml 100 ml 200 ml Stool Total 1200 ml 350 ml 150 ml # Bowel Movements 0 1 0 0 Result Diagram: 07/24/16 0619 07/26/16 1510 Imaging Last Impressions Liver Ultrasound 07/12/16 0000 Signed Impressions: Service Date/Time: Tuesday, July 12, 2016 18:07 - CONCLUSION: 1. No acute abnormality demonstrated. 2. Heterogeneous liver without measurable mass. 3. Small and heterogeneous spleen without a measurable mass. 4. Cortical thinning and scarring of the right kidney. 5. Previous cholecystectomy. Calixto Woodruff MD Chest CT 07/09/16 0000 Signed Impressions: Service Date/Time: Saturday, July 09, 2016 14:43 - CONCLUSION: 1. Small right pleural effusion and minimal right basilar consolidation. 2. 6 mm left basilar nodule. Followup CT chest 6 months recommended. Florian Pepper MD Chest X-Ray 07/08/16 0000 Signed Impressions: Service Date/Time: Friday, July 08, 2016 16:26 - CONCLUSION: Chronic right lung base opacity unchanged. No new pulmonary opacity. Alexandru Lynch MD Lower Extremity Ultrasound 06/25/16 0000 Signed Impressions: Service Date/Time: Saturday, June 25, 2016 15:56 - CONCLUSION: Negative exam with no evidence of deep venous thrombosis. Soft tissue edema. Mike Leija MD Port Line Insertion 06/20/16 0000 Signed Impressions: Service Date/Time: Monday, June 20, 2016 08:53 - CONCLUSION: Uncomplicated ultrasound and fluoroscopic guided implanted central venous port catheter placement as described in detail above. An 8 [place] Power port was placed. Kevan Salgado Jr., MD Objective Remarks awake and alert skin: periorbital and perioral, upper back area - dry erythematous lesions back- with erythematous lesions roof of the mouth with nodule lungs - decrease breath sounds regular rhythm abdomen soft, post op wound midline incision, no foul discharge with surrounding erythema, minimal drainage on dressing when removed extremities no edema, no calf tenderness BKA stump, with open wound dry, no foul odor finger -digital ends with blistering formation- drying up Procedures Left stump debridement by Dr. Hill on 06/15/16 A/P Problem List: (1) Infection of amputation stump ICD Code: T87.40 Status: Resolved (2) 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 (3) Hypercoagulable state ICD Code: D68.59 Status: Chronic (4) HTN (hypertension) ICD Code: I10 Status: Chronic (5) Anxiety about health ICD Code: F41.8 Status: Chronic (6) Diarrhea ICD Code: R19.7 Status: Acute (7) Severe protein-calorie malnutrition ICD Code: E43 Status: Acute (8) Fungal skin infection ICD Code: B36.9 Status: Acute (9) Transient lingual papillitis ICD Code: K14.0 Status: Acute (10) Hospital acquired PNA ICD Code: J18.9 Status: Acute (11) Major depressive disorder, recurrent severe without psychotic features ICD Code: F33.2 Status: Acute (12) Disseminated herpes zoster ICD Code: B02.7 Status: Acute Assessment and Plan The patient is a 70-year-old female with a medical history significant for ischemic bowel with resection in Oct 2015 and development of chronic enterocutaneous fistula, asthma, depression, COPD, severe peripheral vascular disease status post left BKA, multiple hospitalizations and readmissions. The patient was discharged from the hospital on 06/06/16 to a retirement facility for rehabilitation. The stitches on the left stump were taken out 2 weeks ago. She reports that the wound has been opening up when she participated with physical therapy. She returned due to wound dehiscence and infection. -staph Hominis bacteremia -Perioral, periorbital lesions- ID ff/Dr. Greenfield - magic mouthwash, pain control. bottom is excoriated, guevara and flexiseal ordered on 07/21 to avoid further skin breakdown. She has significant skin breakdown, wound care is following. -on Valtrex till 08/04 on IV Vancomycin - pt does have port. started on empiric IV dilfucan 07/26 -Enterocutaneous fistula. per surgery, no further surgical intervention. Optimize nutrition with PO and TPN. wound care. -Infected left BKA stump: Patient status post BKA on 05/02/16. Dr. Hill ff. S/P debridement. Wound cultures growing Klebsiella ESBL positive and Morganella s/p tx with zerbaxa - Dilaudid IV for breakthrough pain. Continue Percocet. - Methadone added to regimen - Management as per vascular surgery s/p wound vac and removal, wound appears clean. abx per ID. -Fungal rash/groin - cont -Hypercoagulable state: History of ischemic bowel and severe peripheral vascular disease. - Continue Xarelto -Anxiety and depression: -more feisty. no outbursts of crying on Seroquel and Zoloft. on Zoloft pt refused cymbalta. Consider Remeron. palliative care for support, pain control, -COPD: Breathing treatments as needed. Stable. 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 cont Imodium as needed. -Severe protein-calorie malnutrition- Patient currently on TPN and being followed by dietitian. Ensure 1 can by mouth 3 times a day. -Skin care. She has excoriated skin over the buttock, abdomen and perineum. Continue anti-fungal cream. Has guevara and rectal seal to prevent further skin breakdown. -GERD: Continue PPI Hypokalemia - give 40 meq Kcl in IV over 4 hrs, -Thrush. Mycelex buccal. -Pulmonary nodule. Rpt CT in 6 mos GI prophylaxis: PPI. DVT PPx: Xarelto Problem Qualifiers (1) HTN (hypertension): Qualified Code: I10 - Essential hypertension (2) Diarrhea: Qualified Code: R19.7 - Diarrhea, unspecified type Lacierda,Alfea M. MD Jul 27, 2016 13:00
[2016-07-27] MEDS: FLUCONAZOLE 400 MG PREMIX BAG 200 ML IV SCH (14:37)
[2016-07-27 16:00] VITALS: BP 133/67; PULSE 104; RESP 20; TEMP 99.5; O2SAT 94
[2016-07-27] MEDS: CLINIMIX E 5/25 2000 mL- >42 mls/hr IV-CENTRAL SCH ×3 (19:49)
[2016-07-27] MEDS: GABAPENTIN 100 MG CAP PO SCH (19:51)
[2016-07-27 19:52] VITALS: BP 98/53; PULSE 94; RESP 16; TEMP 96.1; O2SAT 94
[2016-07-27 23:20] VITALS: BP 112/61; PULSE 87; RESP 16; TEMP 95.1; O2SAT 92
[2016-07-28 04:40] VITALS: BP 139/69; PULSE 98; RESP 16; TEMP 96.8; O2SAT 93
[2016-07-28] MEDS ORDERED: PHARMACY ORDERED LAB XX ONE (04:45)
[2016-07-28] MEDS: VANCOMYCIN INJ 1,250 MG in SODIUM CHLOR 0.9% 250 ML INJ 250 ML IV SCH ×2 (05:00→22:43)
[2016-07-28] MEDS: ALPRAZolam 0.25 MG TAB PO SCH ×3 (05:05→22:44)
[2016-07-28] MEDS: valACYclovir HCL 500 MG TAB PO SCH ×3 (05:06→22:44)
[2016-07-28] MEDS: ACETAMINOPHEN/HYDROcodone 325 MG/10 MG TAB PO PRN ×2 (05:06→22:44)
[2016-07-28] MEDS: CLOTRIMAZOLE 1% CREAM 15 GM TOPICAL SCH ×3 (05:56→22:47)
[2016-07-28] MEDS: ERYTHROMYCIN 0.5% OPTH OINT 3.5 GM TUBO LEFT EYE SCH ×3 (05:57→22:47)
[2016-07-28] MEDS: HYDROmorphone HCL PF 1 MG/ML VIAL IV PUSH PRN ×2 (06:06→17:50)
[2016-07-28 07:47] LABS: BASOPHIL # 0.1 TH/MM3 (0-0.2); BASOPHIL % 0.8 % (0.0-2.0); EOSINOPHIL # 0.7 TH/MM3 (0-0.4); EOSINOPHIL % 7.7 % (0.0-4.0); HEMATOCRIT 29.8 % (35.0-46.0); HEMO FLAGS DIFF FINAL; LYMPH % 23.3 % (9.0-44.0); MEAN CELL VOLUME 98.1 FL (80.0-100.0); MEAN CORPUSCULAR HEMOGLOBIN 31.4 PG (27.0-34.0); NEUT % 59.2 % (16.0-70.0); PLATELET COUNT 607 TH/MM3 (150-450); RED BLOOD COUNT 3.03 MIL/MM3 (4.00-5.30); RED CELL DISTRIBUTION WIDTH 19.4 % (11.6-17.2); WHITE BLOOD COUNT 8.5 TH/MM3 (4.0-11.0)
[2016-07-28 08:00] VITALS: BP 96/63; PULSE 93; RESP 20; TEMP 98.1; O2SAT 93
[2016-07-28 08:06] LABS: BICARBONATE 23.5 MEQ/L (21.0-32.0); POTASSIUM 3.7 MEQ/L (3.5-5.1)
[2016-07-28] MEDS: MAGNESIUM OXIDE 400 MG TAB PO SCH ×2 (09:16→20:46)
[2016-07-28] MEDS: VANCOMYCIN 500 MG VIAL (FOR ORAL USE ONLY) PO SCH ×4 (09:16→20:42)
[2016-07-28] MEDS: SERTRALINE HCL 100 MG TAB PO SCH (09:17)
[2016-07-28] MEDS: DILTIAZEM-CD 120 MG CAP ER PO SCH (09:17)
[2016-07-28] MEDS: LACTOBACILLUS ACIDOPHILUS TAB PO SCH ×3 (09:17→17:49)
[2016-07-28] MEDS: CALCITRIOL 0.25 MCG CAP PO SCH (09:17)
[2016-07-28] MEDS: RIVAROXABAN 20 MG TAB PO SCH (09:17)
[2016-07-28] MEDS: CALCIUM/VITAMIN D 250 MG/125 U TAB PO SCH ×2 (09:18→20:44)
[2016-07-28] MEDS: METHADONE HCL 10 MG TAB PO SCH ×2 (09:18→20:45)
[2016-07-28] MEDS: QUEtiapine FUMARATE 25 MG TAB PO SCH (09:18)
[2016-07-28] MEDS: PANTOPRAZOLE SOD 20 MG DELAYED RELEASE TAB PO SCH ×2 (09:18→20:44)
[2016-07-28] MEDS: FERROUS SULFATE 325 MG (65 MG ELEMENTAL IRON) TAB PO SCH (09:19)
[2016-07-28] MEDS: prednisoLONE ACETATE 1% OPHT SUSP 5 ML BTL LEFT EYE SCH ×2 (09:20→20:47)
[2016-07-28] MEDS: NYSTAT/DIPHENHY/LIDO MOUTHWASH (Adult) 120ML SWISH-SWAL SCH ×4 (09:20→20:41)
[2016-07-28] MEDS: SODIUM CHLORIDE 0.9% FLUSH 5 ML FLUSH IV FLUSH SCH ×2 (09:20→20:47)
[2016-07-28] MEDS: COLLAGENASE OINT 30 GM TUBE TOP SCH (09:21)
[2016-07-28] MEDS: NYSTATIN 100,000 U/GM PWD 15 GM BTL TOPICAL SCH ×2 (09:21→20:47)
[2016-07-28 12:00] VITALS: BP 116/60; PULSE 112; RESP 20; TEMP 98.1; O2SAT 90
--- NOTE | 2016-07-28 13:13 | HHI.PR ---
Subjective Remarks tolerating noodle soup Objective Vitals Vital Signs Date Time Temp Pulse Resp B/P Pulse Ox O2 Delivery O2 Flow Rate FiO2 07/28/16 12:00 98.1 112 20 116/60 90 07/28/16 08:20 Room Air 07/28/16 08:00 98.1 93 20 96/63 93 07/28/16 04:40 96.8 98 16 139/69 93 07/27/16 23:20 95.1 87 16 112/61 92 07/27/16 19:52 96.1 94 16 98/53 94 07/27/16 19:30 Room Air 07/27/16 16:00 99.5 104 20 133/67 94 I/O 07/27/16 07/27/16 07/27/16 07/28/16 07/28/16 07/28/16 07:02 15:02 23:02 07:02 15:02 23:02 Intake Total 120 ml 2289 ml 1020 ml 875 ml Output Total 350 ml 200 ml 2200 ml 275 ml Balance -230 ml 2089 ml -1180 ml 600 ml Intake Oral 120 ml 240 ml 960 ml 120 ml IV Total 296 ml 275 ml TPN/PPN 1753 ml 60 ml 480 ml Output Urine Total 200 ml 200 ml 500 ml 200 ml Stool Total 150 ml 1700 ml 75 ml # Bowel Movements 0 0 0 Result Diagram: 07/28/16 0607 07/28/16 0607 Imaging Last Impressions Liver Ultrasound 07/12/16 0000 Signed Impressions: Service Date/Time: Tuesday, July 12, 2016 18:07 - CONCLUSION: 1. No acute abnormality demonstrated. 2. Heterogeneous liver without measurable mass. 3. Small and heterogeneous spleen without a measurable mass. 4. Cortical thinning and scarring of the right kidney. 5. Previous cholecystectomy. Calixto Woodruff MD Chest CT 07/09/16 0000 Signed Impressions: Service Date/Time: Saturday, July 09, 2016 14:43 - CONCLUSION: 1. Small right pleural effusion and minimal right basilar consolidation. 2. 6 mm left basilar nodule. Followup CT chest 6 months recommended. Florian Pepper MD Chest X-Ray 07/08/16 0000 Signed Impressions: Service Date/Time: Friday, July 08, 2016 16:26 - CONCLUSION: Chronic right lung base opacity unchanged. No new pulmonary opacity. Alexandru R Lynch , MD Lower Extremity Ultrasound 06/25/16 0000 Signed Impressions: Service Date/Time: Saturday, June 25, 2016 15:56 - CONCLUSION: Negative exam with no evidence of deep venous thrombosis. Soft tissue edema. Mike Leija MD Port Line Insertion 06/20/16 0000 Signed Impressions: Service Date/Time: Monday, June 20, 2016 08:53 - CONCLUSION: Uncomplicated ultrasound and fluoroscopic guided implanted central venous port catheter placement as described in detail above. An 8 [employer] port was placed. Kevan Salgado Jr., MD Objective Remarks awake and alert skin: periorbital and perioral, upper back area - dry erythematous lesions- drying up back- with erythematous lesions roof of the mouth with nodule lungs - decrease breath sounds regular rhythm abdomen soft, post op wound midline incision, no foul discharge with surrounding erythema, minimal drainage on dressing when removed extremities no edema, no calf tenderness BKA stump, with open wound dry, no foul odor finger -digital ends with blistering formation- drying up Procedures Left stump debridement by Dr. Hill on 06/15/16 A/P Problem List: (1) Infection of amputation stump ICD Code: T87.40 Status: Resolved (2) 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 (3) Hypercoagulable state ICD Code: D68.59 Status: Chronic (4) HTN (hypertension) ICD Code: I10 Status: Chronic (5) Anxiety about health ICD Code: F41.8 Status: Chronic (6) Diarrhea ICD Code: R19.7 Status: Acute (7) Severe protein-calorie malnutrition ICD Code: E43 Status: Acute (8) Fungal skin infection ICD Code: B36.9 Status: Acute (9) Transient lingual papillitis ICD Code: K14.0 Status: Acute (10) Hospital acquired PNA ICD Code: J18.9 Status: Acute (11) Major depressive disorder, recurrent severe without psychotic features ICD Code: F33.2 Status: Acute (12) Disseminated herpes zoster ICD Code: B02.7 Status: Acute Assessment and Plan The patient is a 70-year-old female with a medical history significant for ischemic bowel with resection in Oct 2015 and development of chronic enterocutaneous fistula, asthma, depression, COPD, severe peripheral vascular disease status post left BKA, multiple hospitalizations and readmissions. The patient was discharged from the [facility]. The stitches on the left stump were taken out 2 weeks ago. She reports that the wound has been opening up when she participated with physical therapy. She returned due to wound dehiscence and infection. -staph Hominis bacteremia -Perioral, periorbital lesions- ID ff/Dr. Greenfield - magic mouthwash, pain control. bottom is excoriated guevara and flexiseal ordered on 07/21 to avoid further skin breakdown. She has significant skin breakdown, wound care is following. -on Valtrex till 08/04 on IV Vancomycin - pt does have port. started on empiric IV dilfucan 07/26 -Enterocutaneous fistula. per surgery, no further surgical intervention. Optimize nutrition with PO and TPN. wound care. -Infected left BKA stump: Patient status post BKA on 05/02/16. Dr. Sergio kuo. S/P debridement- dry -. Wound cultures growing Klebsiella ESBL positive and Morganella s/p tx with zerbaxa - Dilaudid IV for breakthrough pain. Continue Percocet. - on Methadone - added to regimen - vascular surgery s/p wound vac and removal, wound appears clean. abx per ID. -Fungal rash/groin - cont antifungal local meds -Hypercoagulable state: History of ischemic bowel and severe peripheral vascular disease. - Continue Xarelto -Anxiety and depression: -more feisty. no outbursts of crying on Seroquel and Zoloft. on Zoloft pt refused cymbalta. Consider Remeron. palliative care for support, pain control, -COPD: Breathing treatments as needed. Stable. 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 cont Imodium as needed. -Severe protein-calorie malnutrition- Patient currently on TPN and being followed by dietitian. Ensure 1 can by mouth 3 times a day. -Skin care. She has excoriated skin over the buttock, abdomen and perineum. Continue anti-fungal cream. Has guevara and rectal seal to prevent further skin breakdown. -GERD: Continue PPI Hypokalemia -improved. continue to monitor -Thrush. Mycelex buccal. -Pulmonary nodule. Rpt CT in 6 mos GI prophylaxis: PPI. DVT PPx: Xarelto Problem Qualifiers (1) HTN (hypertension): Qualified Code: I10 - Essential hypertension (2) Diarrhea: Qualified Code: R19.7 - Diarrhea, unspecified type Maricarmen Sousa MD Jul 28, 2016 13:13
[2016-07-28] MEDS: FLUCONAZOLE 400 MG PREMIX BAG 200 ML IV SCH (13:57)
[2016-07-28] MEDS: ACETAMINOPHEN/HYDROcodone 325 MG/7.5 MG TAB PO PRN (13:58)
[2016-07-28 16:00] VITALS: BP 125/65; PULSE 91; RESP 20; TEMP 98.4; O2SAT 92
[2016-07-28 20:00] VITALS: BP 141/66; PULSE 93; RESP 18; TEMP 95.8; O2SAT 94
[2016-07-28] MEDS: CLINIMIX E 5/25 2000 mL- >42 mls/hr IV-CENTRAL SCH ×3 (20:32)
[2016-07-28] MEDS: GABAPENTIN 100 MG CAP PO SCH (20:45)
[2016-07-29] VITALS: BP 109/54; PULSE 99; RESP 18; TEMP 98.5; O2SAT 92
[2016-07-29] MEDS: HYDROmorphone HCL PF 1 MG/ML VIAL IV PUSH PRN ×4 (00:17→21:17)
[2016-07-29 04:00] VITALS: BP 101/59; PULSE 91; RESP 18; TEMP 95.5; O2SAT 92
[2016-07-29] MEDS: ALPRAZolam 0.25 MG TAB PO SCH ×3 (05:20→23:02)
[2016-07-29] MEDS: ERYTHROMYCIN 0.5% OPTH OINT 3.5 GM TUBO LEFT EYE SCH ×3 (05:21→20:52)
[2016-07-29] MEDS: ACETAMINOPHEN/HYDROcodone 325 MG/10 MG TAB PO PRN (05:21)
[2016-07-29] MEDS: valACYclovir HCL 500 MG TAB PO SCH ×3 (05:21→23:02)
[2016-07-29] MEDS: CLOTRIMAZOLE 1% CREAM 15 GM TOPICAL SCH ×3 (05:22→20:53)
[2016-07-29 08:00] VITALS: BP 107/57; PULSE 92; RESP 20; TEMP 97.1; O2SAT 90
[2016-07-29] MEDS: SODIUM CHLORIDE 0.9% FLUSH 5 ML FLUSH IV FLUSH SCH ×2 (09:46→20:52)
[2016-07-29] MEDS: METHADONE HCL 10 MG TAB PO SCH ×2 (09:47→20:45)
[2016-07-29] MEDS: DILTIAZEM-CD 120 MG CAP ER PO SCH (09:47)
[2016-07-29] MEDS: QUEtiapine FUMARATE 25 MG TAB PO SCH (09:47)
[2016-07-29] MEDS: VANCOMYCIN 500 MG VIAL (FOR ORAL USE ONLY) PO SCH ×4 (09:47→20:52)
[2016-07-29] MEDS: SERTRALINE HCL 100 MG TAB PO SCH (09:47)
[2016-07-29] MEDS: CALCIUM/VITAMIN D 250 MG/125 U TAB PO SCH ×2 (09:47→20:45)
[2016-07-29] MEDS: CALCITRIOL 0.25 MCG CAP PO SCH (09:47)
[2016-07-29] MEDS: RIVAROXABAN 20 MG TAB PO SCH (09:47)
[2016-07-29] MEDS: MAGNESIUM OXIDE 400 MG TAB PO SCH ×2 (09:47→20:44)
[2016-07-29] MEDS: PANTOPRAZOLE SOD 20 MG DELAYED RELEASE TAB PO SCH ×2 (09:47→20:45)
[2016-07-29] MEDS: LACTOBACILLUS ACIDOPHILUS TAB PO SCH ×3 (09:47→16:28)
[2016-07-29] MEDS: FERROUS SULFATE 325 MG (65 MG ELEMENTAL IRON) TAB PO SCH (09:47)
[2016-07-29] MEDS: NYSTAT/DIPHENHY/LIDO MOUTHWASH (Adult) 120ML SWISH-SWAL SCH ×4 (09:48→20:51)
[2016-07-29] MEDS: prednisoLONE ACETATE 1% OPHT SUSP 5 ML BTL LEFT EYE SCH ×2 (09:48→20:52)
[2016-07-29] MEDS: COLLAGENASE OINT 30 GM TUBE TOP SCH (09:50)
[2016-07-29] MEDS: NYSTATIN 100,000 U/GM PWD 15 GM BTL TOPICAL SCH ×2 (09:51→20:52)
[2016-07-29 12:00] VITALS: BP 136/69; PULSE 104; RESP 20; TEMP 99.5; O2SAT 94
--- NOTE | 2016-07-29 13:37 | HHI.PR ---
Subjective Remarks looks depressed complains of pain- but better highout put from stools- last shift Objective Vitals Vital Signs Date Time Temp Pulse Resp B/P Pulse Ox O2 Delivery O2 Flow Rate FiO2 07/29/16 08:00 97.1 92 20 107/57 90 07/29/16 04:00 95.5 91 18 101/59 92 07/29/16 00:00 98.5 99 18 109/54 92 07/28/16 20:15 Room Air 07/28/16 20:00 95.8 93 18 141/66 94 07/28/16 16:00 Room Air 07/28/16 16:00 98.4 91 20 125/65 92 I/O 07/28/16 07/28/16 07/28/16 07/29/16 07/29/16 07/29/16 07:00 15:00 23:00 07:00 15:00 23:00 Intake Total 875 ml 1390 ml 720 ml 120 ml Output Total 275 ml 300 ml 50 ml 1350 ml Balance 600 ml 1090 ml 670 ml -1230 ml Intake Oral 120 ml 0 ml 720 ml 120 ml IV Total 275 ml 1390 ml TPN/PPN 480 ml Output Urine Total 200 ml 300 ml 50 ml 50 ml Stool Total 75 ml 1200 ml Gastric Drainage Total 100 ml # Bowel Movements 0 Result Diagram: 07/28/16 0607/28/1607 Imaging Last Impressions Liver Ultrasound 07/12/16 0000 Signed Impressions: Service Date/Time: Tuesday, July 12, 2016 18:07 - CONCLUSION: 1. No acute abnormality demonstrated. 2. Heterogeneous liver without measurable mass. 3. Small and heterogeneous spleen without a measurable mass. 4. Cortical thinning and scarring of the right kidney. 5. Previous cholecystectomy. Calixto Woodruff MD Chest CT 07/09/16 0000 Signed Impressions: Service Date/Time: Saturday, July 09, 2016 14:43 - CONCLUSION: 1. Small right pleural effusion and minimal right basilar consolidation. 2. 6 mm left basilar nodule. Followup CT chest 6 months recommended. Florian Pepper MD Chest X-Ray 07/08/16 0000 Signed Impressions: Service Date/Time: Friday, July 08, 2016 16:26 - CONCLUSION: Chronic right lung base opacity unchanged. No new pulmonary opacity. Alexandru Lynch MD Lower Extremity Ultrasound 06/25/16 0000 Signed Impressions: Service Date/Time: Saturday, June 25, 2016 15:56 - CONCLUSION: Negative exam with no evidence of deep venous thrombosis. Soft tissue edema. Mike Leija MD Port Line Insertion 06/20/16 0000 Signed Impressions: Service Date/Time: Monday, June 20, 2016 08:53 - CONCLUSION: Uncomplicated ultrasound and fluoroscopic guided implanted central venous port catheter placement as described in detail above. An 8 [employer] port was placed. Kevan Salgado Jr., MD Objective Remarks awake and alert skin: periorbital and perioral, upper back area - dry erythematous lesions- drying up back- with erythematous lesions roof of the mouth with nodule lungs - decrease breath sounds regular rhythm abdomen soft, post op wound midline incision, no foul discharge with surrounding erythema, minimal drainage on dressing when removed 07/28 extremities no edema, no calf tenderness BKA stump, with open wound dry, no foul odor some fingers - forefinger/thumb -with blistering formation- drying up Procedures Left stump debridement by Dr. Hill on 06/15/16 A/P Problem List: (1) Infection of amputation stump ICD Code: T87.40 Status: Resolved (2) 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 (3) Hypercoagulable state ICD Code: D68.59 Status: Chronic (4) HTN (hypertension) ICD Code: I10 Status: Chronic (5) Anxiety about health ICD Code: F41.8 Status: Chronic (6) Diarrhea ICD Code: R19.7 Status: Acute (7) Severe protein-calorie malnutrition ICD Code: E43 Status: Acute (8) Fungal skin infection ICD Code: B36.9 Status: Acute (9) Transient lingual papillitis ICD Code: K14.0 Status: Acute (10) Hospital acquired PNA ICD Code: J18.9 Status: Acute (11) Major depressive disorder, recurrent severe without psychotic features ICD Code: F33.2 Status: Acute (12) Disseminated herpes zoster ICD Code: B02.7 Status: Acute Assessment and Plan The patient is a 70-year-old female with a medical history significant for ischemic bowel with resection in Oct 2015 and development of chronic enterocutaneous fistula, asthma, depression, COPD, severe peripheral vascular disease status post left BKA, multiple hospitalizations and readmissions. The patient was discharged from the hospital on 06/06/16 to a custodial facility for rehabilitation. The stitches on the left stump were taken out 2 weeks ago. She reports that the wound has been opening up when she participated with physical therapy. She returned due to wound dehiscence and infection. -staph Hominis bacteremia -Perioral, periorbital lesions- ID ff/Dr. Greenfield - magic mouthwash, pain control. bottom is excoriated guevara and flexiseal ordered on 07/21 to avoid further skin breakdown. She has significant skin breakdown, wound care is following. -on Valtrex till 08/04 on IV Vancomycin - pt does have port. started on empiric IV dilfucan 07/26 -Enterocutaneous fistula. per surgery, no further surgical intervention. Optimize nutrition with PO and TPN. wound care. -Infected left BKA stump: Patient status post BKA on 05/02/16. Dr. Hill ff. S/P debridement- dry -. Wound cultures growing Klebsiella ESBL positive and Morganella s/p tx with zerbaxa - Dilaudid IV for breakthrough pain. Continue Percocet. - on Methadone - added to regimen - vascular surgery s/p wound vac and removal, wound appears clean. abx per ID. -Fungal rash/groin - cont antifungal local meds -Hypercoagulable state: History of ischemic bowel and severe peripheral vascular disease. - Continue Xarelto -Anxiety and depression: -more feisty. no outbursts of crying on Seroquel and Zoloft. on Zoloft pt refused cymbalta. start Remeron. palliative care for support, pain control, -COPD: Breathing treatments as needed. Stable. 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 cont Imodium as needed. - rectal bag- with high output 1200 last shift - on TPN -Severe protein-calorie malnutrition- Patient currently on TPN and being followed by dietitian. Ensure 1 can by mouth 3 times a day. -Skin care. She has excoriated skin over the buttock, abdomen and perineum. Continue anti-fungal cream. Has guevara and rectal seal to prevent further skin breakdown. -GERD: Continue PPI Hypokalemia -improved. continue to monitor -Thrush. Mycelex buccal. -Pulmonary nodule. Rpt CT in 6 mos GI prophylaxis: PPI. DVT PPx: Xarelto Problem Qualifiers (1) HTN (hypertension): Qualified Code: I10 - Essential hypertension (2) Diarrhea: Qualified Code: R19.7 - Diarrhea, unspecified type Maricarmen Sousa MD Jul 29, 2016 13:37
[2016-07-29] MEDS ORDERED: POTASSIUM CHLORIDE 20 MEQ CONTROLLED RELEASE TAB PO ONE (13:45)
[2016-07-29 13:52] LABS: VITAMIN B6 4.9 ng/mL (2.1-21.7)
[2016-07-29] MEDS: ACETAMINOPHEN 325 MG TAB PO PRN (13:58)
[2016-07-29] MEDS: ACETAMINOPHEN/HYDROcodone 325 MG/7.5 MG TAB PO PRN (13:59)
[2016-07-29] MEDS: FLUCONAZOLE 400 MG PREMIX BAG 200 ML IV SCH (13:59)
[2016-07-29 16:00] VITALS: BP 137/65; PULSE 109; RESP 20; TEMP 99.1; O2SAT 93
[2016-07-29] MEDS: VANCOMYCIN INJ 1,250 MG in SODIUM CHLOR 0.9% 250 ML INJ 250 ML IV SCH (16:28)
[2016-07-29 20:00] VITALS: BP 119/65; PULSE 101; RESP 20; TEMP 97; O2SAT 97
[2016-07-29] MEDS: MIRTAZAPINE ODT 15 MG TAB PO SCH (20:45)
[2016-07-29] MEDS: GABAPENTIN 100 MG CAP PO SCH (20:45)
[2016-07-29] MEDS: CLINIMIX E 5/25 2000 mL- >42 mls/hr IV-CENTRAL SCH ×3 (21:18)
[2016-07-30] VITALS: BP 90/61; PULSE 83; RESP 20; TEMP 96.6; O2SAT 98
[2016-07-30 04:00] VITALS: BP 122/69; PULSE 107; RESP 20; TEMP 98.1; O2SAT 95
[2016-07-30] MEDS: ERYTHROMYCIN 0.5% OPTH OINT 3.5 GM TUBO LEFT EYE SCH ×3 (05:33→21:17)
[2016-07-30] MEDS: valACYclovir HCL 500 MG TAB PO SCH ×3 (05:33→21:07)
[2016-07-30] MEDS: HYDROmorphone HCL PF 1 MG/ML VIAL IV PUSH PRN ×3 (05:34→18:46)
[2016-07-30] MEDS: CLOTRIMAZOLE 1% CREAM 15 GM TOPICAL SCH ×3 (05:34→21:17)
[2016-07-30] MEDS: ALPRAZolam 0.25 MG TAB PO SCH ×3 (05:34→21:08)
[2016-07-30 06:27] LABS: BICARBONATE 25.2 MEQ/L (21.0-32.0); POTASSIUM 4.1 MEQ/L (3.5-5.1)
[2016-07-30] MEDS: SODIUM CHLORIDE 0.9% FLUSH 5 ML FLUSH IV FLUSH SCH ×2 (07:58→21:00)
[2016-07-30] MEDS: SERTRALINE HCL 100 MG TAB PO SCH (07:58)
[2016-07-30] MEDS: VANCOMYCIN 500 MG VIAL (FOR ORAL USE ONLY) PO SCH ×4 (07:58→21:15)
[2016-07-30] MEDS: MAGNESIUM OXIDE 400 MG TAB PO SCH ×2 (07:58→21:07)
[2016-07-30] MEDS: CALCITRIOL 0.25 MCG CAP PO SCH (07:59)
[2016-07-30 08:00] VITALS: BP 116/57; PULSE 99; RESP 18; TEMP 100; O2SAT 95
[2016-07-30] MEDS: DILTIAZEM-CD 120 MG CAP ER PO SCH (08:01)
[2016-07-30] MEDS: LACTOBACILLUS ACIDOPHILUS TAB PO SCH ×3 (08:01→16:05)
[2016-07-30] MEDS: METHADONE HCL 10 MG TAB PO SCH ×2 (08:01→21:07)
[2016-07-30] MEDS: RIVAROXABAN 20 MG TAB PO SCH (08:01)
[2016-07-30] MEDS: PANTOPRAZOLE SOD 20 MG DELAYED RELEASE TAB PO SCH ×2 (08:01→21:07)
[2016-07-30] MEDS: ACETAMINOPHEN/HYDROcodone 325 MG/7.5 MG TAB PO PRN (08:01)
[2016-07-30] MEDS: FERROUS SULFATE 325 MG (65 MG ELEMENTAL IRON) TAB PO SCH (08:01)
[2016-07-30] MEDS: CALCIUM/VITAMIN D 250 MG/125 U TAB PO SCH ×2 (08:01→21:06)
[2016-07-30] MEDS: NYSTAT/DIPHENHY/LIDO MOUTHWASH (Adult) 120ML SWISH-SWAL SCH ×4 (08:02→21:15)
[2016-07-30] MEDS: NYSTATIN 100,000 U/GM PWD 15 GM BTL TOPICAL SCH ×2 (08:03→21:17)
[2016-07-30] MEDS: COLLAGENASE OINT 30 GM TUBE TOP SCH (08:03)
[2016-07-30] MEDS: prednisoLONE ACETATE 1% OPHT SUSP 5 ML BTL LEFT EYE SCH ×2 (08:05→21:16)
[2016-07-30] MEDS ORDERED: PHARMACY ORDERED LAB XX ONE (10:45)
[2016-07-30 12:00] VITALS: BP 117/68; PULSE 97; RESP 18; TEMP 98.6; O2SAT 94
[2016-07-30] MEDS: VANCOMYCIN INJ 1,250 MG in SODIUM CHLOR 0.9% 250 ML INJ 250 ML IV SCH (12:09)
[2016-07-30] MEDS: FLUCONAZOLE 400 MG PREMIX BAG 200 ML IV SCH (12:13)
--- NOTE | 2016-07-30 12:19 | HHI.PR ---
Subjective Remarks denies any pain feeling slightly better Objective Vitals Vital Signs Date Time Temp Pulse Resp B/P Pulse Ox O2 Delivery O2 Flow Rate FiO2 07/30/16 09:07 16 07/30/16 08:00 100.0 99 18 116/57 95 07/30/16 08:00 Room Air 07/30/16 04:00 98.1 107 20 122/69 95 07/30/16 04:00 Room Air 07/30/16 00:00 Room Air 07/30/16 00:00 96.6 83 20 90/61 98 07/29/16 20:00 Room Air 07/29/16 20:00 97.0 101 20 119/65 97 07/29/16 16:00 99.1 109 20 137/65 93 07/29/16 16:00 Room Air I/O 07/29/16 07/29/16 07/29/16 07/30/16 07/30/16 07/30/16 07:00 15:00 23:00 07:00 15:00 23:00 Intake Total 120 ml 480 ml 2160 ml 799 ml Output Total 1350 ml 500 ml 700 ml 100 ml Balance -1230 ml -20 ml 1460 ml 699 ml Intake Oral 120 ml 480 ml 360 ml 50 ml IV Total 1800 ml TPN/PPN 749 ml Output Urine Total 50 ml 0 ml Stool Total 1200 ml 500 ml 700 ml 100 ml Gastric Drainage Total 100 ml # Voids 0 2 2 # Bowel Movements 1 Result Diagram: 07/28/16 0607 07/30/16 0530 Objective Remarks awake and alert skin: periorbital and perioral, upper back area - dry erythematous lesions- continues to crust and dry up back- with erythematous lesions roof of the mouth with nodule lungs - decrease breath sounds regular rhythm abdomen soft, post op wound midline incision, no foul discharge with surrounding erythema, minimal drainage on dressing when removed 07/28 bilateral groin- with erythema extremities no edema, no calf tenderness BKA stump, with open wound dry, no foul odor some fingers - forefinger/thumb -with blistering formation- drying up Procedures Left stump debridement by Dr. Hill on 06/15/16 A/P Problem List: (1) Infection of amputation stump ICD Code: T87.40 Status: Resolved (2) 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 (3) Hypercoagulable state ICD Code: D68.59 Status: Chronic (4) HTN (hypertension) ICD Code: I10 Status: Chronic (5) Anxiety about health ICD Code: F41.8 Status: Chronic (6) Diarrhea ICD Code: R19.7 Status: Acute (7) Severe protein-calorie malnutrition ICD Code: E43 Status: Acute (8) Fungal skin infection ICD Code: B36.9 Status: Acute (9) Transient lingual papillitis ICD Code: K14.0 Status: Acute (10) Hospital acquired PNA ICD Code: J18.9 Status: Acute (11) Major depressive disorder, recurrent severe without psychotic features ICD Code: F33.2 Status: Acute (12) Disseminated herpes zoster ICD Code: B02.7 Status: Acute Assessment and Plan The patient is a 70-year-old female with a medical history significant for ischemic bowel with resection in Oct 2015 and development of chronic enterocutaneous fistula, asthma, depression, COPD, severe peripheral vascular disease status post left BKA, multiple hospitalizations and readmissions. The patient was discharged from the hospital on 06/06/16 to a [facility] facility [facility]. The stitches on the left stump were taken out 2 weeks ago. She reports that the wound has been opening up when she participated with physical therapy. She returned due to wound dehiscence and infection. -staph Hominis bacteremia -Perioral, periorbital lesions- ID ff/Dr. Greenfield - magic mouthwash, pain control. bottom is excoriated guevara and flexiseal ordered on 07/21 to avoid further skin breakdown. She has significant skin breakdown, wound care is following. -on Valtrex till 08/04 on IV Vancomycin - pt does have port. started on empiric IV dilfucan 07/26 -Enterocutaneous fistula. per surgery, no further surgical intervention. Optimize nutrition with PO and TPN. wound care. -Infected left BKA stump: Patient status post BKA on 05/02/16. Dr. Hill ff. S/P debridement- dry -. Wound cultures growing Klebsiella ESBL positive and Morganella s/p tx with zerbaxa - Dilaudid IV for breakthrough pain. Continue Percocet. - on Methadone - added to regimen - vascular surgery s/p wound vac and removal, wound appears clean. abx per ID. -Fungal rash/groin - cont antifungal local meds -Hypercoagulable state: History of ischemic bowel and severe peripheral vascular disease. - Continue Xarelto -Anxiety and depression: -more feisty. no outbursts of crying on Seroquel and Zoloft. on Zoloft pt refused cymbalta. start Remeron. palliative care for support, pain control, -COPD: Breathing treatments as needed. Stable. 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 cont Imodium as needed. - rectal bag- with high output 1200 last shift - on TPN -Severe protein-calorie malnutrition- Patient currently on TPN and being followed by dietitian. Ensure 1 can by mouth 3 times a day. -Skin care. She has excoriated skin over the buttock, abdomen and perineum. Continue anti-fungal cream. Has guevara and rectal seal to prevent further skin breakdown. -GERD: Continue PPI Hypokalemia -improved. continue to monitor -Thrush. Mycelex buccal. -Pulmonary nodule. Rpt CT in 6 mos GI prophylaxis: PPI. DVT PPx: Xarelto Problem Qualifiers (1) HTN (hypertension): Qualified Code: I10 - Essential hypertension (2) Diarrhea: Qualified Code: R19.7 - Diarrhea, unspecified type Maricarmen Sousa MD Jul 30, 2016 12:18
[2016-07-30] MEDS: SODIUM CHLORIDE 0.9% FLUSH 5 ML FLUSH IV FLUSH PRN (13:55)
[2016-07-30 16:00] VITALS: BP 110/58; PULSE 90; RESP 18; TEMP 97.4; O2SAT 98
[2016-07-30] MEDS: ACETAMINOPHEN/HYDROcodone 325 MG/10 MG TAB PO PRN (16:05)
[2016-07-30 20:00] VITALS: BP 138/72; PULSE 89; RESP 18; TEMP 97.8; O2SAT 95
[2016-07-30] MEDS: MIRTAZAPINE ODT 15 MG TAB PO SCH (21:07)
[2016-07-30] MEDS: GABAPENTIN 100 MG CAP PO SCH (21:07)
[2016-07-30] MEDS: CLINIMIX E 5/25 2000 mL- >42 mls/hr IV-CENTRAL SCH ×3 (21:19)
[2016-07-30] MEDS: FAT EMULSION 20% INJ 250 ML (Twice weekly over 8 hours) IV-CENTRAL SCH (21:26)
[2016-07-31] VITALS: BP 140/65; PULSE 94; RESP 18; TEMP 98.4; O2SAT 95
[2016-07-31 04:00] VITALS: BP 151/69; PULSE 106; RESP 18; TEMP 100.9; O2SAT 95
[2016-07-31] MEDS: HYDROmorphone HCL PF 1 MG/ML VIAL IV PUSH PRN ×2 (05:55→18:06)
[2016-07-31] MEDS: ALPRAZolam 0.25 MG TAB PO SCH ×3 (05:55→22:43)
[2016-07-31] MEDS: valACYclovir HCL 500 MG TAB PO SCH ×3 (05:57→22:43)
[2016-07-31] MEDS: VANCOMYCIN INJ 1,250 MG in SODIUM CHLOR 0.9% 250 ML INJ 250 ML IV SCH ×2 (05:57→22:44)
[2016-07-31] MEDS: ERYTHROMYCIN 0.5% OPTH OINT 3.5 GM TUBO LEFT EYE SCH ×3 (05:59→20:41)
[2016-07-31] MEDS: CLOTRIMAZOLE 1% CREAM 15 GM TOPICAL SCH ×3 (05:59→20:39)
[2016-07-31 08:00] VITALS: BP 128/94; PULSE 101; RESP 20; TEMP 99.7; O2SAT 94
[2016-07-31] MEDS: MAGNESIUM OXIDE 400 MG TAB PO SCH ×2 (09:22→20:25)
[2016-07-31] MEDS: DILTIAZEM-CD 120 MG CAP ER PO SCH (09:22)
[2016-07-31] MEDS: RIVAROXABAN 20 MG TAB PO SCH (09:22)
[2016-07-31] MEDS: LACTOBACILLUS ACIDOPHILUS TAB PO SCH ×3 (09:22→17:06)
[2016-07-31] MEDS: METHADONE HCL 10 MG TAB PO SCH ×2 (09:22→20:23)
[2016-07-31] MEDS: PANTOPRAZOLE SOD 20 MG DELAYED RELEASE TAB PO SCH ×2 (09:22→20:25)
[2016-07-31] MEDS: SODIUM CHLORIDE 0.9% FLUSH 5 ML FLUSH IV FLUSH SCH ×2 (09:22→20:39)
[2016-07-31] MEDS: FERROUS SULFATE 325 MG (65 MG ELEMENTAL IRON) TAB PO SCH (09:22)
[2016-07-31] MEDS: NYSTAT/DIPHENHY/LIDO MOUTHWASH (Adult) 120ML SWISH-SWAL SCH ×4 (09:22→20:26)
[2016-07-31] MEDS: CALCIUM/VITAMIN D 250 MG/125 U TAB PO SCH ×2 (09:23→20:25)
[2016-07-31] MEDS: SERTRALINE HCL 100 MG TAB PO SCH (09:23)
[2016-07-31] MEDS: VANCOMYCIN 500 MG VIAL (FOR ORAL USE ONLY) PO SCH ×4 (09:23→20:26)
[2016-07-31] MEDS: CALCITRIOL 0.25 MCG CAP PO SCH (09:23)
[2016-07-31] MEDS: prednisoLONE ACETATE 1% OPHT SUSP 5 ML BTL LEFT EYE SCH ×2 (09:30→20:39)
[2016-07-31] MEDS: COLLAGENASE OINT 30 GM TUBE TOP SCH (09:31)
[2016-07-31] MEDS: NYSTATIN 100,000 U/GM PWD 15 GM BTL TOPICAL SCH ×2 (09:31→20:27)
[2016-07-31] MEDS: ACETAMINOPHEN/HYDROcodone 325 MG/10 MG TAB PO PRN (09:41)
[2016-07-31 12:00] VITALS: BP 117/58; PULSE 90; RESP 20; TEMP 98; O2SAT 93
[2016-07-31] MEDS ORDERED: MISCELLANEOUS PHARMACY INFORMATION XX PRN (13:00)
--- NOTE | 2016-07-31 13:24 | HHI.IDPN ---
Subjective Subjective Remarks Notes reviewed D/W RN Has occ low grade temps C/O itching on facial and back rash Also C/O tremors in both hands when she does something Had some dizziness earlier when she was being turned to clean her back Concern about a stroke Bullous lesions in fingers are drying up UC with Morganella No new (+) BC 07/15, 07/16, 07/20 BC with Staph hominis Echo with possible MV vegetation Antibiotics Vancomycin Valtrex Diflucan PO Vancomycin Lines Port Past Medical History 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 Vital Signs Date Time Temp Pulse Resp B/P Pulse Ox O2 Delivery O2 Flow Rate FiO2 07/31/16 10: 18 07/31/16 08:00 99.7 101 20 128/94 94 07/31/16 07:41 Room Air 07/31/16 04:00 100.9 106 18 151/69 95 07/31/16 04:00 Room Air 07/31/16 00:00 98.4 94 18 140/65 95 07/31/16 00:00 Room Air 07/30/16 20:00 97.8 89 18 138/72 95 07/30/16 20:00 Room Air 07/30/16 16:00 97.4 90 18 110/58 98 07/30/16 07/30/16 07/31/16 15:02 23:02 07:02 Intake Total 736 ml 1435 ml Output Total 2000 ml 600 ml Balance -1264 ml 835 ml Intake Oral 0 ml 240 ml IV Total 254 ml 250 ml TPN/PPN 482 ml 695 ml Lipid 250 ml Output Urine Total 300 ml Stool Total 1000 ml 300 ml Emesis 1000 ml # Voids 3 . Laboratory Tests Test 07/30/16 05:30 Sodium Level 142 MEQ/L Potassium Level 4.1 MEQ/L Chloride Level 111 MEQ/L Carbon Dioxide Level 25.2 MEQ/L Anion Gap 6 MEQ/L Blood Urea Nitrogen 20 MG/DL Creatinine 0.56 MG/DL Estimat Glomerular Filtration 107 ML/MIN Rate Random Glucose 101 MG/DL Calcium Level 8.9 MG/DL Imaging Liver Ultrasound 07/12/16 0000 Signed Impressions: Service Date/Time: Tuesday, July 12, 2016 18:07 - CONCLUSION: 1. No acute abnormality demonstrated. 2. Heterogeneous liver without measurable mass. 3. Small and heterogeneous spleen without a measurable mass. 4. Cortical thinning and scarring of the right kidney. 5. Previous cholecystectomy. Calixto Woodruff MD Chest CT 07/09/16 0000 Signed Impressions: Service Date/Time: Saturday, July 09, 2016 14:43 - CONCLUSION: 1. Small right pleural effusion and minimal right basilar consolidation. 2. 6 mm left basilar nodule. Followup CT chest 6 months recommended. Florian Pepper MD Chest X-Ray 07/08/16 0000 Signed Impressions: Service Date/Time: Friday, July 08, 2016 16:26 - CONCLUSION: Chronic right lung base opacity unchanged. No new pulmonary opacity. Alexandru Lynch MD Lower Extremity Ultrasound 06/25/16 0000 Signed Impressions: Service Date/Time: Saturday, June 25, 2016 15:56 - CONCLUSION: Negative exam with no evidence of deep venous thrombosis. Soft tissue edema. Mike Leija MD Port Line Insertion 06/20/16 0000 Signed Impressions: Service Date/Time: Monday, June 20, 2016 08:53 - CONCLUSION: Uncomplicated ultrasound and fluoroscopic guided implanted central venous port catheter placement as described in detail above. An 8 [employer] port was placed. Kevan Salgado Jr., MD Chest X-Ray 06/17/16 0000 Signed Impressions: Service Date/Time: Friday, June 17, 2016 14:12 - CONCLUSION: Right base infiltrate and small effusion. Calixto Woodruff MD Physical Exam GENERAL: awake and alert. NAD SKIN: Warm and dry. Rash on face around eyes, nose lips and chin, red, drying up with less crusting. Rash in back all coalesced, red and some with crusts, same as in her buttocks and also some in the groin areas. Has some kind of chemical dermatitis around her EC fistula Has bullous rash in her fingers both hands. HEENT: [place] conjunctiva. No petechia or hemorrhage. No scleral icterus. Moist oral mucosa. NECK: Supple and not tender, no meningeal signs. No lymphadenopathy. CARDIOVASCULAR: Regular rate and rhythm. No murmur, no rub. RESPIRATORY: Coarse BS tatyana. Port L upper chest looks ok, currently accessed. ABDOMEN: Soft, nondistended. a lot of bilious ouput from her EC fistula with dermatitis type redness around this. There is mild tenderness on palpation of the abdomen especially in the midline. No guarding. No rebound. EXTREMITIES: LBKA stump with dry intact dressing. NEUROLOGICAL: Grossly non-focal PSYCH: Calm and cooperative LINE: Port looks ok. Assessment & Plan Remarks IMPRESSION Infection LBKA stump, C/S Klebsiella ESBL+ and Morganella - S/P debridement - S/P Rx Multiple Abx allergy - has tolerated Cephalosporins in the past PVD Previous abdominal OR for ischemic bowel, has fistula - has increased output Cough, better Fevers, etiology? up again Staph hominis sepsis, has MV vegetation Rash on face and back, drying up - biopsy not diagnostic Tremors both hands, ?deconditioning RECOMMENDATION Continue Vancomycin for Staph hominis Continue Valtrex and Diflucan Add Invanz for the Morganella in UC Follow temps Stop po Vancomycin Await metabolic work-up Monitor progress Occupational therapy to help with her tremors Explained plan to patient D/W Sara Beasley MD Jul 31, 2016 13:24
[2016-07-31] MEDS: FLUCONAZOLE 400 MG PREMIX BAG 200 ML IV SCH (13:37)
[2016-07-31] MEDS: ERTAPENEM INJ 1,000 MG in SODIUM CHLORIDE 0.9% INJ 100 ML IV SCH (14:06)
--- NOTE | 2016-07-31 14:51 | HHI.HCPN ---
Reason for visit a. To assist with evaluation and management of symptoms including: Pain, anxiety, depression b. To assist medical decision maker(s) with: better understanding of current medical conditions; weighing benefits/burdens of medical treatment options; making medical treatment decisions. . Subjective/Interval History INTERVAL NOTE: The patient definitely feels better. The skin lesions on her face, back, and fingers are all improving over the last 3 or 4 days. Her pain is better controlled, and she PRN hydrocodone only about once per day now. Her anxiety is also better controlled since the increase in the Xanax, and she has not needed much PRN dosing. Low-grade temp today 100.9, but overall the patient feels better. She says she is now starting to eat a little better the past day or so. The skin biopsy reveals some ulceration and inflammation, nothing specific. As per initial consultation note on 07/24/16 by Ronald Edouard MD: This 71-year-old female has a complex medical history over the past year. The patient was admitted to the hospital and sepsis and shock in October 2015 and was found to have ischemic bowel. She underwent surgery 11/13/15 with resection of some large and small bowel (as well as the gallbladder), but developed complications including an enterocutaneous fistula and required a second resection of bowel on 11/26/15. The patient eventually was able to be sent to SNF , but returned to the hospital again on 03/11/16 with abdominal pain and had infection involving the fistula. That was treated, and she was able to go home briefly. She returned to the hospital on 04/04/16 because of left leg pain that was found to be caused by ischemia. She underwent treatment with TPA and was kept on anticoagulation, and was discharged again. She returned to the hospital on 04/28/16 with gangrene of the left foot, and was found to have multiple thrombi in major vessels. 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 On 06/14/16, while at the nursing facility, the patient was moving in the bed and there was a dehiscence of the left leg stump wound, and she was sent back to the hospital for admission. Couple on arrival at the hospital, she was found to have a temperature of 100.2 , and she was readmitted. 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 Cultures from the stump wound grew both Klebsiella ESBL and a Morganella species. She was taken to the operating room for debridement and placement of a wound VAC. The fistula seemed to finally close on 06/25/16, but it reopened and has remained open since 07/12/16. She again had fever on 07/21/16 , and additional cultures were done. Staphylococcus hominis has been grown in the blood cultures. The patient has developed a worsening rash on her face, upper back, sacral/ buttock area, and now over the past few days worsening with development of bullae on multiple fingertips. The patient thinks there were vesicles on the rash across her back and on her face a week or 2 ago, but those seem to have all collapsed and dried. The patient has had worsening anxiety over the past several months that she has undergone multiple hospitalizations and complications. She has been receiving some PRN Xanax here, and she says that does help, but it is not scheduled. She has also had pain that has worsened, particularly in her abdomen that she relates to the enterocutaneous fistula, and on her skin on the sacral and upper back area, as well as some skin related to the facial rash. She has received intermittent Malden 10 mg and Dilaudid 1 mg IV a few times per day, and says they helped temporarily. Palliative Care was consulted to assist with symptom management, and to enter in discussions regarding goals of care in the benefits and burdens of the various illnesses and treatment options. . Advance Directives Living Will: Never completed Health Care Surrogate: Copy in medical record Durable Power of Security Director: Never completed Advance Directive Specifics Health Care Surrogate(s): Primary HCS is her close friend Anuradha Christian, and secondary is her Dwight Wilson. The HCS that is in the record here is not dated. . Objective Vital Signs Date Time Temp Pulse Resp B/P Pulse Ox O2 Delivery O2 Flow Rate FiO2 07/31/16 10:16 18 07/31/16 08:00 99.7 101 20 128/94 94 07/31/16 07:41 Room Air 07/31/16 04:00 100.9 106 18 151/69 95 07/31/16 04:00 Room Air 07/31/16 00:00 98.4 94 18 140/65 95 07/31/16 00:00 Room Air 07/30/16 20:00 97.8 89 18 138/72 95 07/30/16 20:00 Room Air 07/30/16 16:00 97.4 90 18 110/58 98 Intake & Output 07/31/16 07/31/16 06:59 18:59 Intake Total 1435 ml Output Total 600 ml Balance 835 ml Intake Oral 240 ml IV Total 250 ml TPN/PPN 695 ml Lipid 250 ml Output Urine Total 300 ml Stool Total 300 ml Physical Exam CONSTITUTIONAL/GENERAL: This is a weak, somewhat brighter appearing patient, in no apparent distress. TUBES/LINES/DRAINS: Accessed port, dressing on left BKA stump, large dressing over central abdomen SKIN: Skin temperature appropriate. Not diaphoretic. The patient has a diffuse , patchy rash involving both sides of her face, and a similar patchy rash over the entire upper half of her back. This is all improving, all dried now, healing, some desquamation. The vesicles and bullae on the fingers are all resolving and healing. EYES: Pupils equal and round and reactive. Extraocular motions intact. No scleral icterus. Some mild injection involving the sclera on the left. ENT: Hearing grossly normal. Nose without bleeding or purulent drainage. Throat without visible erythema, exudates, masses, or lesions. CARDIOVASCULAR: Regular rate and rhythm without murmurs, gallops, or rubs. No JVD. Peripheral pulses symmetric. RESPIRATORY/CHEST: Symmetric, unlabored respirations. Clear to auscultation. Breath sounds equal bilaterally. No wheezes, rales, or rhonchi. GASTROINTESTINAL: Soft, no tenderness or guarding or rebound. Appliance and skin care as per Dr. Hill. MUSCULOSKELETAL: Extremities without clubbing, cyanosis, or edema. The vesicles are healing/resolving... No calf tenderness on the right. No mottling or clubbing. NEUROLOGICAL: Awake and alert. Motor and sensory grossly within normal limits. Follows commands. Cognitively sharp. Moves all extremities. PSYCHIATRIC: Appears brighter, definitely more comfortable, no obvious anxiety or depression now. No apparent hallucinations or other psychotic thought process. . Diagnostic Tests Laboratory Laboratory Tests Test 07/30/16 07/30/16 05:30 10:45 Sodium Level 142 MEQ/L (136-145) Potassium Level 4.1 MEQ/L (3.5-5.1) Chloride Level 111 MEQ/L (98-107) Carbon Dioxide Level 25.2 MEQ/L (21.0-32.0) Anion Gap 6 MEQ/L (5-15) Blood Urea Nitrogen 20 MG/DL (7-18) Creatinine 0.56 MG/DL (0.50-1.00) Estimat Glomerular Filtration 107 ML/MIN Rate (>89) Random Glucose 101 MG/DL (74-106) Calcium Level 8.9 MG/DL (8.5-10.1) Vancomycin Level Trough 18.7 MCG/ML (5.0-10.0) Result Diagram: 07/28/16 0607 07/30/16 0530 Imaging Last Impressions Liver Ultrasound 07/12/16 0000 Signed Impressions: Service Date/Time: Tuesday, July 12, 2016 18:07 - CONCLUSION: 1. No acute abnormality demonstrated. 2. Heterogeneous liver without measurable mass. 3. Small and heterogeneous spleen without a measurable mass. 4. Cortical thinning and scarring of the right kidney. 5. Previous cholecystectomy. Calixto Woodruff MD Chest CT 07/09/16 0000 Signed Impressions: Service Date/Time: Saturday, July 09, 2016 14:43 - CONCLUSION: 1. Small right pleural effusion and minimal right basilar consolidation. 2. 6 mm left basilar nodule. Followup CT chest 6 months recommended. Florian Pepper MD Chest X-Ray 07/08/16 0000 Signed Impressions: Service Date/Time: Friday, July 08, 2016 16:26 - CONCLUSION: Chronic right lung base opacity unchanged. No new pulmonary opacity. Alexandru Lynch MD Lower Extremity Ultrasound 06/25/16 0000 Signed Impressions: Service Date/Time: Saturday, June 25, 2016 15:56 - CONCLUSION: Negative exam with no evidence of deep venous thrombosis. Soft tissue edema. Mike Leija MD Port Line Insertion 06/20/16 0000 Signed Impressions: Service Date/Time: Monday, June 20, 2016 08:53 - CONCLUSION: Uncomplicated ultrasound and fluoroscopic guided implanted central venous port catheter placement as described in detail above. An 8 [place] Power port was placed. Kevan Salgado Jr., MD Procedures Stump debridement and wound VAC placement 06/16/16 TPN Skin biopsies, face 07/24/16 . 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 (4) sepsis/shock secondary to ischemic bowel, October 2015 (5) short-bowel syndrome, TPN-dependent (6) rash: Significant exanthem and enanthem with prior vesicles and new/ worsening multiple finger bullae Comment: Skin biopsy 07/24/16 (7) pulmonary nodule on CT scan, 2.6 mm at the left base (8) depression (9) COPD, not oxygen dependent (10) history of breast cancer (11) anxiety (12) anemia Symptom Scale: (1) pain 0-10 Scale: 6 (she has been receiving Malden and parenteral hydromorphone) (2) anxiety 0-10 Scale: 4 (she has had occasional doses of Xanax that she says helps, but her anxiety is worsening overall) (3) depression 0-10 Scale: 4 (long-term, was on Celexa at home, now on Zoloft; remains tearful frequently) Pertinent Non-Medical Issues Psychosocial: Second marriage for about 1 year, but most of that time in the hospital or SNF. No children, but has close friend Anuradha. Spiritual: Evaluation pending Legal: The patient has capacity for decision-making, and has designated her friend Anuradha and her Dwight as primary and secondary HCS respectively Ethical issues impacting care: None. . Important Contacts Primary HCS, close friend Anuradha Christian [phone] : Dwight Wilson [phone] . Prognosis She has suffered multiple illnesses, infections, and complications during the last 10 months, and now is TPN dependent every 2 short-bowel syndrome. Her overall prognosis would appear to be poor, and she would be an appropriate hospice candidate if she elected to stop all aggressive care including TPN. . Code Status: Full Code Plan * FULL CODE * GOALS: The patient does want to continue AGGRESSIVE CARE. She has been frustrated by all the complications and the debility caused by pain, anxiety, and depression, but wants to remain a full code and continue all care available for now. She has a good understanding of hospice, as she has been the primary caregiver for 3 of her relatives who were on hospice and at end-of-life. She does not desire hospice services at this time. * DECISION-MAKING: The patient is capacitated for decision making, and has designated her close friend Anuradha Christian and her Dwight Wilson as primary and secondary HCS respectively. * SYMPTOMS: -- Pain: The patient has ongoing abdominal pain as well as pain related to the multiple skin lesions and maceration. She is definitely improved on the current methadone dose, needing only occasional PRN hydrocodone now. -- Anxiety: She is definitely improved on the current Xanax dosing. -- Depression: I suspect most of her depression has been via a combination of some chronic depression (she had been on Celexa for quite some time at home) and some situational depression at this time. She remains on Zoloft here, and does seem more cheerful now. -- Rash: This has been improving, drying, healing. The biopsy showed some ulceration/inflammation, but is nonspecific. I am hopeful the rash is resolving now. * Palliative Care will continue to follow the patient during this hospitalization. . Time Spent Total Floor Time (mins): 36 Face to Face Time (mins): 19 >50% Counseling/Coord of Care: Yes Attestation To help prompt me to consider important information that might be impacting today's encounter and assessment, information from prior notes written by myself or my colleagues may have been "brought forward" into today's note. My signature on this note, however, is an attestation that I personally performed the exam, history, and/or decision-making noted today, and, unless otherwise indicated, the interactions with patient, family, and staff as well as the review of records all occurred today. I also attest that the listed assessment and stated plan reflect my best clinical judgment today based on the combination of historical information, prior notes, and today's exam/ interactions. When time spent is documented, it refers only to time spent today by the signer, or if indicated, combined time spent today by collaborating physician/nurse practitioner. Dalila Edouard MD Jul 31, 2016 14:51
--- NOTE | 2016-07-31 15:40 | HHI.PR ---
Subjective Remarks feels face less swelling-/puffiness d/w lesions on face- drying up still with water diarrhea po intake poor Objective Vitals Vital Signs Date Time Temp Pulse Resp B/P Pulse Ox O2 Delivery O2 Flow Rate FiO2 07/31/16 10:16 18 07/31/16 08:00 99.7 101 20 128/94 94 07/31/16 07:41 Room Air 07/31/16 04:00 100.9 106 18 151/69 95 07/31/16 04:00 Room Air 07/31/16 00:00 98.4 94 18 140/65 95 07/31/16 00:00 Room Air 07/30/16 20:00 97.8 89 18 138/72 95 07/30/16 20:00 Room Air 07/30/16 16:00 97.4 90 18 110/58 98 I/O 07/30/16 07/30/16 07/30/16 07/31/16 07/31/16 07/31/16 07:02 15:02 23:02 07:02 15:02 23:02 Intake Total 799 ml 736 ml 1435 ml Output Total 100 ml 2000 ml 600 ml Balance 699 ml -1264 ml 835 ml Intake Oral 50 ml 0 ml 240 ml IV Total 254 ml 250 ml TPN/PPN 749 ml 482 ml 695 ml Lipid 250 ml Output Urine Total 300 ml Stool Total 100 ml 1000 ml 300 ml Emesis 1000 ml # Voids 2 3 Result Diagram: 07/28/16 0607 07/30/16 0530 Imaging Last Impressions Liver Ultrasound 07/12/16 0000 Signed Impressions: Service Date/Time: Tuesday, July 12, 2016 18:07 - CONCLUSION: 1. No acute abnormality demonstrated. 2. Heterogeneous liver without measurable mass. 3. Small and heterogeneous spleen without a measurable mass. 4. Cortical thinning and scarring of the right kidney. 5. Previous cholecystectomy. Calixto Woodruff MD Chest CT 07/09/16 0000 Signed Impressions: Service Date/Time: Saturday, July 09, 2016 14:43 - CONCLUSION: 1. Small right pleural effusion and minimal right basilar consolidation. 2. 6 mm left basilar nodule. Followup CT chest 6 months recommended. Florian Pepper MD Chest X-Ray 07/08/16 0000 Signed Impressions: Service Date/Time: Friday, July 08, 2016 16:26 - CONCLUSION: Chronic right lung base opacity unchanged. No new pulmonary opacity. Alexandru Lynhc MD Lower Extremity Ultrasound 06/25/16 0000 Signed Impressions: Service Date/Time: Saturday, June 25, 2016 15:56 - CONCLUSION: Negative exam with no evidence of deep venous thrombosis. Soft tissue edema. Mike Leija MD Port Line Insertion 06/20/16 0000 Signed Impressions: Service Date/Time: Monday, June 20, 2016 08:53 - CONCLUSION: Uncomplicated ultrasound and fluoroscopic guided implanted central venous port catheter placement as described in detail above. An 8 [place] Power port was placed. Kevan Salgado Jr., MD Objective Remarks awake and alert skin: periorbital and perioral, upper back area - dry erythematous lesions- continues to crust and dry up- continues to gradually improve back- with erythematous lesions roof of the mouth with nodule, no mucosal lesions lungs - decrease breath sounds regular rhythm abdomen soft, post op wound midline incision, no foul discharge with surrounding erythema, dressing easily gets soaked bilateral groin- with erythema extremities no edema, no calf tenderness BKA stump, with open wound dry, no foul odor some fingers - forefinger/thumb -with blistering formation- drying up Procedures Left stump debridement by Dr. Hill on 06/15/16 A/P Problem List: (1) Infection of amputation stump ICD Code: T87.40 Status: Resolved (2) 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 (3) Hypercoagulable state ICD Code: D68.59 Status: Chronic (4) HTN (hypertension) ICD Code: I10 Status: Chronic (5) Anxiety about health ICD Code: F41.8 Status: Chronic (6) Diarrhea ICD Code: R19.7 Status: Acute (7) Severe protein-calorie malnutrition ICD Code: E43 Status: Acute (8) Fungal skin infection ICD Code: B36.9 Status: Acute (9) Transient lingual papillitis ICD Code: K14.0 Status: Acute (10) Hospital acquired PNA ICD Code: J18.9 Status: Acute (11) Major depressive disorder, recurrent severe without psychotic features ICD Code: F33.2 Status: Acute (12) Disseminated herpes zoster ICD Code: B02.7 Status: Acute Assessment and Plan The patient is a 70-year-old female with a medical history significant for ischemic bowel with resection in Oct 2015 and development of chronic enterocutaneous fistula, asthma, depression, COPD, severe peripheral vascular disease status post left BKA, multiple hospitalizations and readmissions. The patient was discharged from the hospital on 06/06/16 to a long-term facility for rehabilitation. The stitches on the left stump were taken out 2 weeks ago. She reports that the wound has been opening up when she participated with physical therapy. She returned due to wound dehiscence and infection. -staph Hominis bacteremia -Perioral, periorbital lesions- ID ff/Dr. Greenfield - magic mouthwash, pain control. bottom is excoriated guevara and flexiseal ordered on 07/21 to avoid further skin breakdown. She has significant skin breakdown, wound care is following. -on Valtrex till 08/04 on IV Vancomycin - pt does have port. started on empiric IV dilfucan 07/26 started on Invanz -Enterocutaneous fistula. per surgery, no further surgical intervention. Optimize nutrition with PO and TPN. wound care. -Infected left BKA stump: Patient status post BKA on 05/02/16. Dr. Hill ff. S/P debridement- dry -. Wound cultures growing Klebsiella ESBL positive and Morganella s/p tx with zerbaxa - Dilaudid IV for breakthrough pain. Continue Percocet. - on Methadone - added to regimen - vascular surgery s/p wound vac and removal, wound appears clean. abx per ID. -Fungal rash/groin - cont antifungal local meds -Hypercoagulable state: History of ischemic bowel and severe peripheral vascular disease. - Continue Xarelto -Anxiety and depression: -more feisty. no outbursts of crying on Seroquel and Zoloft. on Zoloft pt refused cymbalta. start Remeron. palliative care for support, pain control, -COPD: Breathing treatments as needed. Stable. 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 cont Imodium as needed. - rectal bag- with high output 1200 last shift - on TPN -Severe protein-calorie malnutrition- Patient currently on TPN and being followed by dietitian. Ensure 1 can by mouth 3 times a day. -Skin care. She has excoriated skin over the buttock, abdomen and perineum. Continue anti-fungal cream. Has guevara and rectal seal to prevent further skin breakdown. -GERD: Continue PPI Hypokalemia -improved. continue to monitor -Thrush. Mycelex buccal. -Pulmonary nodule. Rpt CT in 6 mos GI prophylaxis: PPI. DVT PPx: Xarelto Problem Qualifiers (1) HTN (hypertension): Qualified Code: I10 - Essential hypertension (2) Diarrhea: Qualified Code: R19.7 - Diarrhea, unspecified type Maricarmen Sousa MD Jul 31, 2016 15:40
[2016-07-31 16:00] VITALS: BP 177/83; PULSE 104; RESP 20; TEMP 95.7; O2SAT 92
[2016-07-31] MEDS: CALAMINE LOTION 180 APPLIC/180 ML BTL TOPICAL PRN ×2 (17:06→20:41)
[2016-07-31] MEDS: SODIUM CHLORIDE 0.9% FLUSH 5 ML FLUSH IV FLUSH PRN ×3 (17:06→22:44)
[2016-07-31 20:00] VITALS: BP 131/61; PULSE 95; RESP 20; TEMP 98.5; O2SAT 95
[2016-07-31] MEDS: ACETAMINOPHEN/HYDROcodone 325 MG/7.5 MG TAB PO PRN (20:24)
[2016-07-31] MEDS: MIRTAZAPINE ODT 15 MG TAB PO SCH (20:24)
[2016-07-31] MEDS: GABAPENTIN 100 MG CAP PO SCH (20:25)
[2016-07-31] MEDS: CLINIMIX E 5/25 2000 mL- >42 mls/hr IV-CENTRAL SCH ×3 (22:44)
[2016-08-01] VITALS: BP 114/53; PULSE 100; RESP 22; TEMP 99.3; O2SAT 91
[2016-08-01] MEDS: ACETAMINOPHEN/HYDROcodone 325 MG/7.5 MG TAB PO PRN ×3 (01:46→12:20)
[2016-08-01 04:00] VITALS: BP 98/52; PULSE 88; RESP 20; TEMP 98.1; O2SAT 92
[2016-08-01] MEDS: valACYclovir HCL 500 MG TAB PO SCH ×3 (05:36→20:18)
[2016-08-01] MEDS: ALPRAZolam 0.25 MG TAB PO SCH ×3 (05:36→22:28)
[2016-08-01] MEDS: CLOTRIMAZOLE 1% CREAM 15 GM TOPICAL SCH ×3 (05:37→22:00)
[2016-08-01] MEDS: ERYTHROMYCIN 0.5% OPTH OINT 3.5 GM TUBO LEFT EYE SCH ×3 (05:39→20:23)
[2016-08-01 08:00] VITALS: BP 114/59; PULSE 91; RESP 20; TEMP 98.1; O2SAT 92
[2016-08-01] MEDS: prednisoLONE ACETATE 1% OPHT SUSP 5 ML BTL LEFT EYE SCH ×2 (09:00→20:22)
[2016-08-01] MEDS: NYSTATIN 100,000 U/GM PWD 15 GM BTL TOPICAL SCH ×2 (09:00→20:22)
[2016-08-01] MEDS: PANTOPRAZOLE SOD 20 MG DELAYED RELEASE TAB PO SCH ×2 (09:55→20:19)
[2016-08-01] MEDS: RIVAROXABAN 20 MG TAB PO SCH (09:56)
[2016-08-01] MEDS: METHADONE HCL 10 MG TAB PO SCH ×2 (09:56→20:18)
[2016-08-01] MEDS: CALCITRIOL 0.25 MCG CAP PO SCH (09:56)
[2016-08-01] MEDS: SERTRALINE HCL 100 MG TAB PO SCH (09:56)
[2016-08-01] MEDS: LACTOBACILLUS ACIDOPHILUS TAB PO SCH ×3 (09:56→17:06)
[2016-08-01] MEDS: DILTIAZEM-CD 120 MG CAP ER PO SCH (09:56)
[2016-08-01] MEDS: MAGNESIUM OXIDE 400 MG TAB PO SCH ×2 (09:57→20:19)
[2016-08-01] MEDS: FERROUS SULFATE 325 MG (65 MG ELEMENTAL IRON) TAB PO SCH (09:57)
[2016-08-01] MEDS: CALCIUM/VITAMIN D 250 MG/125 U TAB PO SCH ×2 (09:57→20:19)
[2016-08-01] MEDS: VANCOMYCIN 500 MG VIAL (FOR ORAL USE ONLY) PO SCH ×4 (10:07→20:19)
[2016-08-01] MEDS: NYSTAT/DIPHENHY/LIDO MOUTHWASH (Adult) 120ML SWISH-SWAL SCH ×4 (10:08→20:19)
[2016-08-01] MEDS: SODIUM CHLORIDE 0.9% FLUSH 5 ML FLUSH IV FLUSH SCH ×2 (10:36→20:22)
[2016-08-01] MEDS: COLLAGENASE OINT 30 GM TUBE TOP SCH (10:37)
[2016-08-01 12:00] VITALS: BP 122/97; PULSE 104; RESP 20; TEMP 98.4; O2SAT 92
[2016-08-01 13:11] LABS: BICARBONATE 26.2 MEQ/L (21.0-32.0); POTASSIUM 3.6 MEQ/L (3.5-5.1)
[2016-08-01] MEDS: FLUCONAZOLE 400 MG PREMIX BAG 200 ML IV SCH (13:56)
[2016-08-01] MEDS: ERTAPENEM INJ 1,000 MG in SODIUM CHLORIDE 0.9% INJ 100 ML IV SCH (13:59)
--- NOTE | 2016-08-01 15:34 | HHI.PR ---
Subjective Remarks patient in better spirits today lesion on the face- drying up blisters drying up Objective Vitals Vital Signs Date Time Temp Pulse Resp B/P Pulse Ox O2 Delivery O2 Flow Rate FiO2 08/01/16 08:00 98.1 91 20 114/59 92 08/01/16 08:00 Room Air 08/01/16 04:00 98.1 88 20 98/52 92 08/01/16 00:00 99.3 100 22 114/53 91 07/31/16 21:00 Room Air 07/31/16 20:00 98.5 95 20 131/61 95 07/31/16 18:39 16 07/31/16 16:00 95.7 104 20 177/83 92 I/O 07/31/16 07/31/16 07/31/16 08/01/16 08/01/16 08/01/16 07:00 15:00 23:00 07:00 15:00 23:00 Intake Total 1435 ml 0 ml 387 ml Output Total 600 ml 300 ml 250 ml Balance 835 ml -300 ml 137 ml Intake Oral 240 ml 0 ml IV Total 250 ml 387 ml TPN/PPN 695 ml Lipid 250 ml Output Urine Total 300 ml 300 ml 250 ml Stool Total 300 ml Result Diagram: 07/28/16 0607 08/01/16 1130 Imaging Last Impressions Liver Ultrasound 07/12/16 0000 Signed Impressions: Service Date/Time: Tuesday, July 12, 2016 18:07 - CONCLUSION: 1. No acute abnormality demonstrated. 2. Heterogeneous liver without measurable mass. 3. Small and heterogeneous spleen without a measurable mass. 4. Cortical thinning and scarring of the right kidney. 5. Previous cholecystectomy. Calixto Woodruff MD Chest CT 07/09/16 0000 Signed Impressions: Service Date/Time: Saturday, July 09, 2016 14:43 - CONCLUSION: 1. Small right pleural effusion and minimal right basilar consolidation. 2. 6 mm left basilar nodule. Followup CT chest 6 months recommended. Florian Pepper MD Chest X-Ray 07/08/16 0000 Signed Impressions: Service Date/Time: Friday, July 08, 2016 16:26 - CONCLUSION: Chronic right lung base opacity unchanged. No new pulmonary opacity. Alexandru Lynch MD Lower Extremity Ultrasound 06/25/16 0000 Signed Impressions: Service Date/Time: Saturday, June 25, 2016 15:56 - CONCLUSION: Negative exam with no evidence of deep venous thrombosis. Soft tissue edema. Mike Leija MD Port Line Insertion 06/20/16 0000 Signed Impressions: Service Date/Time: Monday, June 20, 2016 08:53 - CONCLUSION: Uncomplicated ultrasound and fluoroscopic guided implanted central venous port catheter placement as described in detail above. An 8 [place] Power port was placed. Kevan Salgado Jr., MD Objective Remarks awake and alert skin: periorbital and perioral, upper back area - dry erythematous lesions- continues to crust and dry up- continues to gradually improve back- with erythematous lesions- drying up roof of the mouth with nodule, no mucosal lesions lungs - decrease breath sounds regular rhythm abdomen soft, post op wound midline incision, no foul discharge with surrounding erythema, dressing easily gets soaked bilateral groin- with erythema extremities no edema, no calf tenderness BKA stump, with open wound dry, no foul odor some fingers - forefinger/thumb -with blisteris- drying up Procedures Left stump debridement by Dr. Hill on 06/15/16 A/P Problem List: (1) Infection of amputation stump ICD Code: T87.40 Status: Resolved (2) 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 (3) Hypercoagulable state ICD Code: D68.59 Status: Chronic (4) HTN (hypertension) ICD Code: I10 Status: Chronic (5) Anxiety about health ICD Code: F41.8 Status: Chronic (6) Diarrhea ICD Code: R19.7 Status: Acute (7) Severe protein-calorie malnutrition ICD Code: E43 Status: Acute (8) Fungal skin infection ICD Code: B36.9 Status: Acute (9) Transient lingual papillitis ICD Code: K14.0 Status: Acute (10) Hospital acquired PNA ICD Code: J18.9 Status: Acute (11) Major depressive disorder, recurrent severe without psychotic features ICD Code: F33.2 Status: Acute (12) Disseminated herpes zoster ICD Code: B02.7 Status: Acute Assessment and Plan The patient is a 70-year-old female with a medical history significant for ischemic bowel with resection in Oct 2015 and development of chronic enterocutaneous fistula, asthma, depression, COPD, severe peripheral vascular disease status post left BKA, multiple hospitalizations and readmissions. The patient was discharged from the hospital on 06/06/16 to a half-way facility for rehabilitation. The stitches on the left stump were taken out 2 weeks ago. She reports that the wound has been opening up when she participated with physical therapy. She returned due to wound dehiscence and infection. -staph Hominis bacteremia -Perioral, periorbital lesions- ID ff/Dr. rGeenfield - magic mouthwash, pain control. bottom is excoriated guevara and flexiseal ordered on 07/21 to avoid further skin breakdown. She has significant skin breakdown, wound care is following. -on Valtrex till 08/04 on IV Vancomycin - pt does have port. started on empiric IV dilfucan 07/26 started on Invanz -Enterocutaneous fistula. per surgery, no further surgical intervention. Optimize nutrition with PO and TPN. wound care. -Infected left BKA stump: Patient status post BKA on 05/02/16. Dr. Hill ff. S/P debridement- dry -. Wound cultures growing Klebsiella ESBL positive and Morganella s/p tx with zerbaxa - Dilaudid IV for breakthrough pain. Continue Percocet. - on Methadone - added to regimen - vascular surgery s/p wound vac and removal, wound appears clean. abx per ID. -Fungal rash/groin - cont antifungal local meds -Hypercoagulable state: History of ischemic bowel and severe peripheral vascular disease. - Continue Xarelto -Anxiety and depression: -more feisty. no outbursts of crying on Seroquel and Zoloft. on Zoloft pt refused cymbalta. start Remeron. palliative care for support, pain control, -COPD: Breathing treatments as needed. Stable. 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 cont Imodium as needed. - rectal bag- with high output - continue to monitor - on TPN for nutrtional support -Severe protein-calorie malnutrition- Patient currently on TPN and being followed by dietitian. Ensure 1 can by mouth 3 times a day. -Skin care. She has excoriated skin over the buttock, abdomen and perineum. Continue anti-fungal cream. Has guevara and rectal seal to prevent further skin breakdown. -GERD: Continue PPI Hypokalemia -improved. continue to monitor -Thrush. Mycelex buccal. -Pulmonary nodule. Rpt CT in 6 mos GI prophylaxis: PPI. DVT PPx: Xarelto Problem Qualifiers (1) HTN (hypertension): Qualified Code: I10 - Essential hypertension (2) Diarrhea: Qualified Code: R19.7 - Diarrhea, unspecified type Maricarmen Sousa MD Aug 01, 2016 15:34
[2016-08-01 16:00] VITALS: BP 130/67; PULSE 96; RESP 20; TEMP 97.2; O2SAT 92
[2016-08-01] MEDS: VANCOMYCIN INJ 1,250 MG in SODIUM CHLOR 0.9% 250 ML INJ 250 ML IV SCH (17:06)
[2016-08-01 20:00] VITALS: BP 115/59; PULSE 96; RESP 18; TEMP 97.9; O2SAT 98
[2016-08-01] MEDS: MIRTAZAPINE ODT 15 MG TAB PO SCH (20:18)
[2016-08-01] MEDS: GABAPENTIN 100 MG CAP PO SCH (20:19)
[2016-08-01] MEDS: CLINIMIX E 5/25 2000 mL- >42 mls/hr IV-CENTRAL SCH ×3 (22:28)
[2016-08-02] VITALS: BP 116/64; PULSE 90; RESP 16; TEMP 98.7; O2SAT 93
[2016-08-02] MEDS: ACETAMINOPHEN/HYDROcodone 325 MG/10 MG TAB PO PRN (03:14)
[2016-08-02 04:00] VITALS: BP 117/67; PULSE 93; RESP 16; TEMP 98.6; O2SAT 93
[2016-08-02] MEDS: valACYclovir HCL 500 MG TAB PO SCH ×3 (05:47→23:39)
[2016-08-02] MEDS: ALPRAZolam 0.25 MG TAB PO SCH ×3 (05:48→23:40)
[2016-08-02] MEDS: CLOTRIMAZOLE 1% CREAM 15 GM TOPICAL SCH ×3 (05:48→22:00)
[2016-08-02] MEDS: ERYTHROMYCIN 0.5% OPTH OINT 3.5 GM TUBO LEFT EYE SCH ×3 (05:48→23:48)
[2016-08-02 08:00] VITALS: BP 124/68; PULSE 95; RESP 20; TEMP 98.8; O2SAT 91
[2016-08-02] MEDS: NYSTAT/DIPHENHY/LIDO MOUTHWASH (Adult) 120ML SWISH-SWAL SCH ×4 (09:00→21:00)
[2016-08-02] MEDS: COLLAGENASE OINT 30 GM TUBE TOP SCH (09:00)
[2016-08-02] MEDS: FERROUS SULFATE 325 MG (65 MG ELEMENTAL IRON) TAB PO SCH (09:13)
[2016-08-02] MEDS: PANTOPRAZOLE SOD 20 MG DELAYED RELEASE TAB PO SCH ×2 (09:13→23:39)
[2016-08-02] MEDS: CALCIUM/VITAMIN D 250 MG/125 U TAB PO SCH ×2 (09:13→23:39)
[2016-08-02] MEDS: SERTRALINE HCL 100 MG TAB PO SCH (09:13)
[2016-08-02] MEDS: SODIUM CHLORIDE 0.9% FLUSH 5 ML FLUSH IV FLUSH SCH ×2 (09:13→21:00)
[2016-08-02] MEDS: DILTIAZEM-CD 120 MG CAP ER PO SCH (09:14)
[2016-08-02] MEDS: VANCOMYCIN 500 MG VIAL (FOR ORAL USE ONLY) PO SCH (09:14)
[2016-08-02] MEDS: RIVAROXABAN 20 MG TAB PO SCH (09:14)
[2016-08-02] MEDS: CALCITRIOL 0.25 MCG CAP PO SCH (09:14)
[2016-08-02] MEDS: LACTOBACILLUS ACIDOPHILUS TAB PO SCH ×3 (09:14→16:38)
[2016-08-02] MEDS: METHADONE HCL 10 MG TAB PO SCH ×2 (09:14→23:39)
[2016-08-02] MEDS: MAGNESIUM OXIDE 400 MG TAB PO SCH ×2 (09:14→23:46)
[2016-08-02] MEDS: NYSTATIN 100,000 U/GM PWD 15 GM BTL TOPICAL SCH ×2 (09:17→21:00)
[2016-08-02] MEDS: prednisoLONE ACETATE 1% OPHT SUSP 5 ML BTL LEFT EYE SCH ×2 (09:17→23:48)
[2016-08-02] MEDS: ONDANSETRON HCL 4 MG/2 ML VIAL IV PUSH PRN (10:14)
[2016-08-02 12:00] VITALS: BP 135/66; PULSE 97; RESP 20; TEMP 98.4; O2SAT 91
[2016-08-02] MEDS: VANCOMYCIN INJ 1,250 MG in SODIUM CHLOR 0.9% 250 ML INJ 250 ML IV SCH (12:12)
--- NOTE | 2016-08-02 12:44 | HHI.IDPN ---
Subjective Subjective Remarks Notes reviewed Temps better Itching on facial and back rash same, on calamine lotion Rash drying up UC with Morganella No new (+) BC 07/15, 07/16, 07/20 BC with Staph hominis Echo with possible MV vegetation Antibiotics Vancomycin Valtrex Diflucan PO Vancomycin Lines Port Past Medical History 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 Vital Signs Date Time Temp Pulse Resp B/P Pulse Ox O2 Delivery O2 Flow Rate FiO2 08/02/16 08:00 98.8 95 20 124/68 91 08/02/16 04:00 98.6 93 16 117/67 93 08/02/16 00:00 98.7 90 16 116/64 93 08/01/16 20:00 97.9 96 18 115/59 98 08/01/16 16:00 97.2 96 20 130/67 92 08/01/16 08/01/16 08/02/16 15:00 23:00 07:00 Intake Total 0 ml 1306 ml Output Total 950 ml 400 ml 550 ml Balance -950 ml 906 ml -550 ml Intake Oral 0 ml 221 ml IV Total 100 ml TPN/PPN 985 ml Output Urine Total 950 ml 400 ml 550 ml # Bowel Movements 0 0 . Laboratory Tests Test 08/01/16 11:30 Sodium Level 141 MEQ/L Potassium Level 3.6 MEQ/L Chloride Level 109 MEQ/L Carbon Dioxide Level 26.2 MEQ/L Anion Gap 6 MEQ/L Blood Urea Nitrogen 18 MG/DL Creatinine 0.57 MG/DL Estimat Glomerular Filtration 105 ML/MIN Rate Random Glucose 107 MG/DL Calcium Level 8.8 MG/DL Imaging Liver Ultrasound 07/12/16 0000 Signed Impressions: Service Date/Time: Tuesday, July 12, 2016 18:07 - CONCLUSION: 1. No acute abnormality demonstrated. 2. Heterogeneous liver without measurable mass. 3. Small and heterogeneous spleen without a measurable mass. 4. Cortical thinning and scarring of the right kidney. 5. Previous cholecystectomy. Calixto Woodruff MD Chest CT 07/09/16 0000 Signed Impressions: Service Date/Time: Saturday, July 09, 2016 14:43 - CONCLUSION: 1. Small right pleural effusion and minimal right basilar consolidation. 2. 6 mm left basilar nodule. Followup CT chest 6 months recommended. Florian Pepper MD Chest X-Ray 07/08/16 0000 Signed Impressions: Service Date/Time: Friday, July 08, 2016 16:26 - CONCLUSION: Chronic right lung base opacity unchanged. No new pulmonary opacity. Alexandru Lynch MD Lower Extremity Ultrasound 06/25/16 0000 Signed Impressions: Service Date/Time: Saturday, June 25, 2016 15:56 - CONCLUSION: Negative exam with no evidence of deep venous thrombosis. Soft tissue edema. Mike Leija MD Port Line Insertion 06/20/16 0000 Signed Impressions: Service Date/Time: Monday, June 20, 2016 08:53 - CONCLUSION: Uncomplicated ultrasound and fluoroscopic guided implanted central venous port catheter placement as described in detail above. An 8 [place] Power port was placed. Kevan Salgado Jr., MD Chest X-Ray 06/17/16 0000 Signed Impressions: Service Date/Time: Friday, June 17, 2016 14:12 - CONCLUSION: Right base infiltrate and small effusion. Calixto Woodruff MD Physical Exam GENERAL: awake and alert. NAD SKIN: Warm and dry. Rash on face around eyes, nose lips and chin, red, drying up with less crusting. Rash in back all coalesced, red and some with crusts, same as in her buttocks and also some in the groin areas. Has some kind of chemical dermatitis around her EC fistula Has bullous rash in her fingers both hands. HEENT: [place] conjunctiva. No petechia or hemorrhage. No scleral icterus. Moist oral mucosa. NECK: Supple and not tender, no meningeal signs. No lymphadenopathy. CARDIOVASCULAR: Regular rate and rhythm. No murmur, no rub. RESPIRATORY: Coarse BS tatyana. Port L upper chest looks ok, currently accessed. ABDOMEN: Soft, nondistended. a lot of bilious ouput from her EC fistula with dermatitis type redness around this. There is mild tenderness on palpation of the abdomen especially in the midline. No guarding. No rebound. EXTREMITIES: LBKA stump with dry intact dressing. NEUROLOGICAL: Grossly non-focal PSYCH: Calm and cooperative LINE: Port looks ok. Assessment & Plan Remarks IMPRESSION Infection LBKA stump, C/S Klebsiella ESBL+ and Morganella - S/P debridement - S/P Rx Multiple Abx allergy - has tolerated Cephalosporins in the past PVD Previous abdominal OR for ischemic bowel, has fistula - has increased output Cough, better Fevers, etiology? up again Staph hominis sepsis, has MV vegetation Rash on face and back, drying up - biopsy not diagnostic Tremors both hands, ?deconditioning RECOMMENDATION Continue Vancomycin for Staph hominis Continue Valtrex and Diflucan Continue Invanz for the Morganella in UC Follow temps Stop po Vancomycin Await metabolic work-up Monitor progress Sara Greenfield MD Aug 02, 2016 12:44
--- NOTE | 2016-08-02 13:28 | HHI.PR ---
Subjective Remarks Patient has no new complaints. Discussed with RN. Rash appears to be slightly improving. Objective Vitals Vital Signs Date Time Temp Pulse Resp B/P Pulse Ox O2 Delivery O2 Flow Rate FiO2 08/02/16 12:00 98.4 97 20 135/66 91 08/02/16 08:00 98.8 95 20 124/68 91 08/02/16 04:00 98.6 93 16 117/67 93 08/02/16 00:00 98.7 90 16 116/64 93 08/01/16 20:00 97.9 96 18 115/59 98 08/01/16 16:00 97.2 96 20 130/67 92 I/O 08/01/16 08/01/16 08/01/16 08/02/16 08/02/16 08/02/16 07:00 15:00 23:00 07:00 15:00 23:00 Intake Total 387 ml 0 ml 1306 ml Output Total 250 ml 950 ml 400 ml 550 ml Balance 137 ml -950 ml 906 ml -550 ml Intake Oral 0 ml 221 ml IV Total 387 ml 100 ml TPN/PPN 985 ml Output Urine Total 250 ml 950 ml 400 ml 550 ml # Bowel Movements 0 0 Result Diagram: 08/01/16 1130 Objective Remarks GENERAL: Chronically ill-appearing patient. SKIN: Face, periorbital, perioral, upper back area - dry and scaly lesions- continues to crust and drying up. CARDIOVASCULAR: Regular rate and rhythm without murmurs, gallops, or rubs. RESPIRATORY: Clear to auscultation. Breath sounds equal bilaterally. No wheezes , rales, or rhonchi. GASTROINTESTINAL: Abdomen soft, non-tender, nondistended. No hepato-splenomegaly , or palpable masses. No guarding. MUSCULOSKELETAL: Left BKA wound appeared clean and dry. Very tender to palpation. NEUROLOGICAL: Somewhat drowsy. Normal speech. Procedures Left stump debridement by Dr. Hill on 06/15/16 A/P Problem List: (1) Infection of amputation stump ICD Code: T87.40 Status: Resolved (2) 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 (3) Hypercoagulable state ICD Code: D68.59 Status: Chronic (4) HTN (hypertension) ICD Code: I10 Status: Chronic (5) Anxiety about health ICD Code: F41.8 Status: Chronic (6) Diarrhea ICD Code: R19.7 Status: Acute (7) Severe protein-calorie malnutrition ICD Code: E43 Status: Acute (8) Fungal skin infection ICD Code: B36.9 Status: Acute (9) Transient lingual papillitis ICD Code: K14.0 Status: Acute (10) Hospital acquired PNA ICD Code: J18.9 Status: Acute (11) Major depressive disorder, recurrent severe without psychotic features ICD Code: F33.2 Status: Acute (12) Disseminated herpes zoster ICD Code: B02.7 Status: Acute Assessment and Plan The patient is a 70-year-old female with a medical history significant for ischemic bowel with resection in Oct 2015 and development of chronic enterocutaneous fistula, asthma, depression, COPD, severe peripheral vascular disease status post left BKA, multiple hospitalizations and readmissions. The patient was discharged from the hospital on 06/06/16 to a [facility] facility [facility]. The stitches on the left stump were taken out 2 weeks ago. She reports that the wound has been opening up when she participated with physical therapy. She returned due to wound dehiscence and infection. Patient has since developed an unusual rash and staff Hominis bacteremia -Staph Hominis bacteremia -Perioral, periorbital lesions- ID following, Dr. Greenfield - magkleber mouthwash, pain control. She has significant skin breakdown, wound care is following. -on Valtrex till 08/04 on IV Vancomycin - pt does have port. started on empiric IV Diflucan 07/26 started on Invanz per infectious disease. -Enterocutaneous fistula. per surgery, no further surgical intervention. Optimize nutrition with PO and TPN. wound care. -Infected left BKA stump: Patient status post BKA on 05/02/16. Dr. Sergio kuo. S/P debridement- dry -. Wound cultures growing Klebsiella ESBL positive and Morganella s/p tx with zerbaxa - Dilaudid IV for breakthrough pain. Continue Percocet. - on Methadone - vascular surgery s/p wound vac and removal, wound appears clean. abx per ID. -Fungal rash/groin - cont local antifungal -Hypercoagulable state: History of ischemic bowel and severe peripheral vascular disease. - Continue Xarelto -Anxiety and depression: -more feisty. no outbursts of crying on Seroquel and Zoloft. on Zoloft pt refused cymbalta. start Remeron. palliative care for support, pain control, -COPD: Breathing treatments as needed. Stable. 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 cont Imodium as needed. - rectal bag- with high output - continue to monitor - on TPN for nutritional support -Severe protein-calorie malnutrition- Patient currently on TPN and being followed by dietitian. Ensure 1 can by mouth 3 times a day. -Skin care. She has excoriated skin over the buttock, abdomen and perineum. Continue anti-fungal cream. Has guevara and rectal seal to prevent further skin breakdown. -GERD: Continue PPI Hypokalemia -improved. continue to monitor -Pulmonary nodule. Rpt CT in 6 mos. Patient previously counseled about this finding and the need to follow-up. GI prophylaxis: PPI. DVT PPx: Xarelto Discharge Planning DC pending clinical improvement Problem Qualifiers (1) HTN (hypertension): Qualified Code: I10 - Essential hypertension (2) Diarrhea: Qualified Code: R19.7 - Diarrhea, unspecified type Manolo Holm MD Aug 02, 2016 13:28
[2016-08-02] MEDS: FLUCONAZOLE 400 MG PREMIX BAG 200 ML IV SCH (14:38)
[2016-08-02] MEDS: ERTAPENEM INJ 1,000 MG in SODIUM CHLORIDE 0.9% INJ 100 ML IV SCH (16:37)
[2016-08-02 20:00] VITALS: BP 101/57; PULSE 87; RESP 16; TEMP 98.3; O2SAT 95
[2016-08-02] MEDS: CLINIMIX E 5/25 2000 mL- >42 mls/hr IV-CENTRAL SCH ×3 (20:00)
[2016-08-02] MEDS: FAT EMULSION 20% INJ 250 ML (Twice weekly over 8 hours) IV-CENTRAL SCH (23:38)
[2016-08-02] MEDS: GABAPENTIN 100 MG CAP PO SCH (23:39)
[2016-08-02] MEDS: MIRTAZAPINE ODT 15 MG TAB PO SCH (23:45)
[2016-08-03] VITALS: BP 136/66; PULSE 91; RESP 18; TEMP 99.5; O2SAT 93
[2016-08-03] MEDS: ACETAMINOPHEN/HYDROcodone 325 MG/10 MG TAB PO PRN (02:58)
[2016-08-03 04:00] VITALS: BP 119/57; PULSE 94; RESP 20; TEMP 99.3; O2SAT 92
[2016-08-03] MEDS: CLOTRIMAZOLE 1% CREAM 15 GM TOPICAL SCH ×3 (06:00→20:28)
[2016-08-03] MEDS: ERYTHROMYCIN 0.5% OPTH OINT 3.5 GM TUBO LEFT EYE SCH ×3 (06:00→20:28)
[2016-08-03] MEDS: ALPRAZolam 0.25 MG TAB PO SCH ×3 (07:07→20:27)
[2016-08-03] MEDS: valACYclovir HCL 500 MG TAB PO SCH ×3 (07:07→20:27)
[2016-08-03] MEDS: VANCOMYCIN INJ 1,250 MG in SODIUM CHLOR 0.9% 250 ML INJ 250 ML IV SCH ×2 (07:07→23:00)
[2016-08-03 08:00] VITALS: BP 114/60; PULSE 80; RESP 16; TEMP 98.3; O2SAT 92
[2016-08-03] MEDS: HYDROmorphone HCL PF 1 MG/ML VIAL IV PUSH PRN (08:22)
[2016-08-03] MEDS: SODIUM CHLORIDE 0.9% FLUSH 5 ML FLUSH IV FLUSH SCH ×2 (09:00→20:28)
[2016-08-03] MEDS: COLLAGENASE OINT 30 GM TUBE TOP SCH ×2 (09:00→10:43)
[2016-08-03] MEDS: SERTRALINE HCL 100 MG TAB PO SCH (09:33)
[2016-08-03] MEDS: CALCIUM/VITAMIN D 250 MG/125 U TAB PO SCH ×2 (09:34→20:26)
[2016-08-03] MEDS: CALCITRIOL 0.25 MCG CAP PO SCH (09:35)
[2016-08-03] MEDS: FERROUS SULFATE 325 MG (65 MG ELEMENTAL IRON) TAB PO SCH (09:35)
[2016-08-03] MEDS: RIVAROXABAN 20 MG TAB PO SCH (09:35)
[2016-08-03] MEDS: MAGNESIUM OXIDE 400 MG TAB PO SCH ×2 (09:36→20:27)
[2016-08-03] MEDS: DILTIAZEM-CD 120 MG CAP ER PO SCH (09:36)
[2016-08-03] MEDS: LACTOBACILLUS ACIDOPHILUS TAB PO SCH ×3 (09:37→17:59)
[2016-08-03] MEDS: PANTOPRAZOLE SOD 20 MG DELAYED RELEASE TAB PO SCH ×2 (09:38→20:27)
[2016-08-03] MEDS: NYSTAT/DIPHENHY/LIDO MOUTHWASH (Adult) 120ML SWISH-SWAL SCH ×4 (09:40→20:27)
[2016-08-03] MEDS: METHADONE HCL 10 MG TAB PO SCH ×2 (09:40→20:27)
[2016-08-03] MEDS: prednisoLONE ACETATE 1% OPHT SUSP 5 ML BTL LEFT EYE SCH ×2 (10:09→20:28)
[2016-08-03] MEDS: NYSTATIN 100,000 U/GM PWD 15 GM BTL TOPICAL SCH ×2 (10:10→20:27)
[2016-08-03 12:00] VITALS: BP 97/55; PULSE 81; RESP 20; TEMP 98.3; O2SAT 90
[2016-08-03 13:56] LABS: HEMATOCRIT 31.2 % (35.0-46.0); MEAN CORPUSCULAR HEMOGLOBIN 31.1 PG (27.0-34.0); PLATELET COUNT 709 TH/MM3 (150-450); RED BLOOD COUNT 3.22 MIL/MM3 (4.00-5.30); REVIEW FLAG FINAL; WHITE BLOOD COUNT 8.3 TH/MM3 (4.0-11.0)
[2016-08-03 14:16] LABS: BICARBONATE 28.8 MEQ/L (21.0-32.0); POTASSIUM 4.1 MEQ/L (3.5-5.1)
[2016-08-03] MEDS: FLUCONAZOLE 400 MG PREMIX BAG 200 ML IV SCH ×2 (15:07→17:59)
[2016-08-03 16:00] VITALS: BP 100/53; PULSE 81; RESP 20; TEMP 98.3; O2SAT 94
--- NOTE | 2016-08-03 16:07 | HHI.PR ---
Subjective Remarks No new issues overnight. Patient reports feeling about the same. Rash is about the same. Objective Vitals Vital Signs Date Time Temp Pulse Resp B/P Pulse Ox O2 Delivery O2 Flow Rate FiO2 08/03/16 08:00 98.3 80 16 114/60 92 08/03/16 04:00 99.3 94 20 119/57 92 08/03/16 00:00 99.5 91 18 136/66 93 08/02/16 20:20 Room Air 08/02/16 20:00 98.3 87 16 101/57 95 I/O 08/02/16 08/02/16 08/02/16 08/03/16 08/03/16 08/03/16 07:00 15:00 23:00 07:00 15:00 23:00 Intake Total 943 ml 900 ml 950 ml 465 ml Output Total 550 ml 950 ml 425 ml 675 ml Balance -550 ml -7 ml 475 ml 275 ml 465 ml Intake Oral 240 ml 120 ml 50 ml IV Total 703 ml 300 ml 250 ml 465 ml TPN/PPN 480 ml 400 ml Lipid 250 ml Output Urine Total 550 ml 950 ml 425 ml 475 ml Stool Total 200 ml # Bowel Movements 0 1 Result Diagram: 08/03/16 1321 08/03/16 1306 Objective Remarks GENERAL: Chronically ill-appearing patient. SKIN: Face, periorbital, perioral, upper back area - dry and scaly lesions- continues to crust and drying up. CARDIOVASCULAR: Regular rate and rhythm without murmurs, gallops, or rubs. RESPIRATORY: Clear to auscultation. Breath sounds equal bilaterally. No wheezes , rales, or rhonchi. GASTROINTESTINAL: Abdomen soft, non-tender, nondistended. Multiple draining enterocutaneous fistula. No guarding. MUSCULOSKELETAL: Left BKA wound appeared clean and dry. Very tender to palpation. NEUROLOGICAL: Normal speech. Procedures Left stump debridement by Dr. Hill on 06/15/16 A/P Problem List: (1) Infection of amputation stump ICD Code: T87.40 Status: Resolved (2) 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 (3) Hypercoagulable state ICD Code: D68.59 Status: Chronic (4) HTN (hypertension) ICD Code: I10 Status: Chronic (5) Anxiety about health ICD Code: F41.8 Status: Chronic (6) Diarrhea ICD Code: R19.7 Status: Acute (7) Severe protein-calorie malnutrition ICD Code: E43 Status: Acute (8) Fungal skin infection ICD Code: B36.9 Status: Acute (9) Transient lingual papillitis ICD Code: K14.0 Status: Acute (10) Hospital acquired PNA ICD Code: J18.9 Status: Acute (11) Major depressive disorder, recurrent severe without psychotic features ICD Code: F33.2 Status: Acute (12) Disseminated herpes zoster ICD Code: B02.7 Status: Acute Assessment and Plan The patient is a 70-year-old female with a medical history significant for ischemic bowel with resection in Oct 2015 and development of chronic enterocutaneous fistula, asthma, depression, COPD, severe peripheral vascular disease status post left BKA, multiple hospitalizations and readmissions. The patient was discharged from the hospital on [facility]06[facility]. The stitches on the left stump were taken out 2 weeks ago. She reports that the wound has been opening up when she participated with physical therapy. She returned due to wound dehiscence and infection. Patient has since developed an unusual rash and staff Hominis bacteremia -Staph Hominis bacteremia -Perioral, periorbital lesions- ID following, Dr. Greenfield - magkleber mouthwash, pain control. She has significant skin breakdown, wound care is following. -on Valtrex till 08/04 on IV Vancomycin - pt does have port. started on empiric IV Diflucan 07/26 started on Invanz per infectious disease. -Enterocutaneous fistula. per surgery, no further surgical intervention. Optimize nutrition with PO and TPN. wound care. -Infected left BKA stump: Patient status post BKA on 05/02/16. Dr. Hill ff. S/P debridement- dry -. Wound cultures growing Klebsiella ESBL positive and Morganella s/p tx with zerbaxa - Dilaudid IV for breakthrough pain. Continue Percocet. - on Methadone - vascular surgery s/p wound vac and removal, wound appears clean. abx per ID. -Fungal rash/groin - cont local antifungal -Hypercoagulable state: History of ischemic bowel and severe peripheral vascular disease. - Continue Xarelto -Anxiety and depression: -more feisty. no outbursts of crying on Seroquel and Zoloft. on Zoloft pt refused cymbalta. start Remeron. palliative care for support, pain control, -COPD: Breathing treatments as needed. Stable. 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 cont Imodium as needed. - continue to monitor - on TPN for nutritional support -Severe protein-calorie malnutrition- Patient currently on TPN and being followed by dietitian. Ensure 1 can by mouth 3 times a day. -Skin care. She has excoriated skin over the buttock, abdomen and perineum. Continue anti-fungal cream. Has guevara and rectal seal to prevent further skin breakdown. -GERD: Continue PPI Hypokalemia -improved. continue to monitor -Pulmonary nodule. Rpt CT in 6 mos. Patient previously counseled about this finding and the need to follow-up. GI prophylaxis: PPI. DVT PPx: Xarelto Discharge Planning DC pending clinical improvement Problem Qualifiers (1) HTN (hypertension): Qualified Code: I10 - Essential hypertension (2) Diarrhea: Qualified Code: R19.7 - Diarrhea, unspecified type Manolo Holm MD Aug 03, 2016 16:07
--- NOTE | 2016-08-03 17:51 | HHI.HCPN ---
Reason for visit a. To assist with evaluation and management of symptoms including: Pain, anxiety, depression b. To assist medical decision maker(s) with: better understanding of current medical conditions; weighing benefits/burdens of medical treatment options; making medical treatment decisions. . Subjective/Interval History Ms. Wilson reports that her current pain regimen is adequate but that sometimes it takes too long to get her breakthrough medication after she asks for it. Nurse charted pain levels are at 6-10 today. She thinks the facial rash is improving. She reports that the blisters on her fingers are coming and going. She feels her anxiety is adequately managed at this time. She reports her spirits are holding up in spite of all the medical problems. Current pain regimen: * Methadone 5 mg po q 12 hours ATC * hydrocodone-acetaminophen 10-325 1 to 1.5 tabs q 4 prn (has only used one dose of the 1.5 tabs in the last 24 hours) Anxiety regimen: * Sertraline 150 mg po daily * Alprazolam 0.25 mg po q 8 hrs ATC * Alprazolam 0.25 mg po q 4 hrs prn (no prn alprazolam used since this order was written on 07/26/16) Afebrile. VSS. Last BM 08/03/16. Urine output good. CBC stable though platelets now up to 709. Chemistry stable with good renal function. No new imaging. . As per initial consultation note on 07/24/16 by Ronald Edouard MD: This 71-year-old female has a complex medical history over the past year. The patient was admitted to the hospital and sepsis and shock in October 2015 and was found to have ischemic bowel. She underwent surgery 11/13/15 with resection of some large and small bowel (as well as the gallbladder), but developed complications including an enterocutaneous fistula and required a second resection of bowel on 11/26/15. The patient eventually was able to be sent to SNF , but returned to the hospital again on 03/11/16 with abdominal pain and had infection involving the fistula. That was treated, and she was able to go home briefly. She returned to the hospital on 04/04/16 because of left leg pain that was found to be caused by ischemia. She underwent treatment with TPA and was kept on anticoagulation, and was discharged again. She returned to the hospital on 04/28/16 with gangrene of the left foot, and was found to have multiple thrombi in major vessels. 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 On 06/14/16, while at the nursing facility, the patient was moving in the bed and there was a dehiscence of the left leg stump wound, and she was sent back to the hospital for admission. Couple on arrival at the hospital, she was found to have a temperature of 100.2 , and she was readmitted. 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 Cultures from the stump wound grew both Klebsiella ESBL and a Morganella species. She was taken to the operating room for debridement and placement of a wound VAC. The fistula seemed to finally close on 06/25/16, but it reopened and has remained open since 07/12/16. She again had fever on 07/21/16 , and additional cultures were done. Staphylococcus hominis has been grown in the blood cultures. The patient has developed a worsening rash on her face, upper back, sacral/ buttock area, and now over the past few days worsening with development of bullae on multiple fingertips. The patient thinks there were vesicles on the rash across her back and on her face a week or 2 ago, but those seem to have all collapsed and dried. The patient has had worsening anxiety over the past several months that she has undergone multiple hospitalizations and complications. She has been receiving some PRN Xanax here, and she says that does help, but it is not scheduled. She has also had pain that has worsened, particularly in her abdomen that she relates to the enterocutaneous fistula, and on her skin on the sacral and upper back area, as well as some skin related to the facial rash. She has received intermittent [place] 10 mg and Dilaudid 1 mg IV a few times per day, and says they helped temporarily. Palliative Care was consulted to assist with symptom management, and to enter in discussions regarding goals of care in the benefits and burdens of the various illnesses and treatment options. . Family/friend interactions No family/friends at bedside. . Advance Directives Living Will: Never completed Health Care Surrogate: Copy in medical record Durable Power of Pyrotechnic Assembler: Never completed Advance Directive Specifics Health Care Surrogate(s): Primary HCS is her close friend Anuradha Christian, and secondary is her Dwight Wilson. The HCS that is in the record here is not dated. . Objective Vital Signs Date Time Temp Pulse Resp B/P Pulse Ox O2 Delivery O2 Flow Rate FiO2 08/03/16 16:00 Room Air 08/03/16 16:00 98.3 81 20 100/53 94 08/03/16 12:00 Room Air 08/03/16 12:00 98.3 81 20 97/55 90 08/03/16 08:00 98.3 80 16 114/60 92 08/03/16 08:00 Room Air 08/03/16 04:00 99.3 94 20 119/57 92 08/03/16 00:00 99.5 91 18 136/66 93 08/02/16 20:20 Room Air 08/02/16 20:00 98.3 87 16 101/57 95 Intake & Output 08/03/16 08/03/16 07:00 19:00 Intake Total 1850 ml 585 ml Output Total 1100 ml 400 ml Balance 750 ml 185 ml Intake Oral 170 ml 120 ml IV Total 550 ml 465 ml TPN/PPN 880 ml Lipid 250 ml Output Urine Total 900 ml 400 ml Stool Total 200 ml # Bowel Movements 1 . Physical Exam CONSTITUTIONAL/GENERAL: This is a weak, ill appearing female with a widespread erythematous , flaking facial rash. TUBES/LINES/DRAINS: Accessed port, guevara catheter, rectal tube, SKIN: Skin temperature appropriate. Not diaphoretic. The patient has a diffuse , patchy rash involving both sides of her face, and a similar patchy rash over the entire upper half of her back. This is all improving, all dried now, healing, some desquamation. The vesicles and bullae on the fingers mostly dry. EYES: Pupils equal and round . Extraocular motions intact. No scleral icterus. Some mild injection involving the sclera on the left. ENT: Hearing grossly normal. Nose without bleeding or purulent drainage. Throat without visible erythema, exudates, masses, or lesions. CARDIOVASCULAR: Regular rate and rhythm without murmurs, gallops, or rubs. No JVD. RESPIRATORY/CHEST: Symmetric, unlabored respirations. Clear to auscultation. Breath sounds equal bilaterally. No wheezes, rales, or rhonchi. GASTROINTESTINAL: Soft, no tenderness or guarding or rebound. MUSCULOSKELETAL: Extremities without clubbing, cyanosis, or edema. Healing vesicles on fingers. Stump open to air and healing. No calf tenderness on the right. No mottling or clubbing. NEUROLOGICAL: Awake and alert. Motor and sensory grossly within normal limits. Follows commands. Cognitively sharp. Moves all extremities. PSYCHIATRIC: No obvious anxiety or depression now. No apparent hallucinations or other psychotic thought process. . Diagnostic Tests Laboratory Laboratory Tests Test 08/01/16 08/03/16 08/03/16 11:30 13:06 13:21 Sodium Level 141 MEQ/L 142 MEQ/L (136-145) (136-145) Potassium Level 3.6 MEQ/L 4.1 MEQ/L (3.5-5.1) (3.5-5.1) Chloride Level 109 MEQ/L 110 MEQ/L (98-107) (98-107) Carbon Dioxide Level 26.2 MEQ/L 28.8 MEQ/L (21.0-32.0) (21.0-32.0) Anion Gap 6 MEQ/L (5-15) 3 MEQ/L (5-15) Blood Urea Nitrogen 18 MG/DL (7-18) 20 MG/DL (7-18) Creatinine 0.57 MG/DL 0.67 MG/DL (0.50-1.00) (0.50-1.00) Estimat Glomerular Filtration 105 ML/MIN 87 ML/MIN (>89) Rate (>89) Random Glucose 107 MG/DL 107 MG/DL (74-106) (74-106) Calcium Level 8.8 MG/DL 9.5 MG/DL (8.5-10.1) (8.5-10.1) White Blood Count 8.3 TH/MM3 (4.0-11.0) Red Blood Count 3.22 MIL/MM3 (4.00-5.30) Hemoglobin 10.0 GM/DL (11.6-15.3) Hematocrit 31.2 % (35.0-46.0) Mean Corpuscular Volume 97.0 FL (80.0-100.0) Mean Corpuscular Hemoglobin 31.1 PG (27.0-34.0) Mean Corpuscular Hemoglobin 32.0 % Concent (32.0-36.0) Red Cell Distribution Width 18.0 % (11.6-17.2) Platelet Count 709 TH/MM3 (150-450) Mean Platelet Volume 7.7 FL (7.0-11.0) . Result Diagram: 08/03/16 1321 08/03/16 1306 Imaging Last Impressions Liver Ultrasound 07/12/16 0000 Signed Impressions: Service Date/Time: Tuesday, July 12, 2016 18:07 - CONCLUSION: 1. No acute abnormality demonstrated. 2. Heterogeneous liver without measurable mass. 3. Small and heterogeneous spleen without a measurable mass. 4. Cortical thinning and scarring of the right kidney. 5. Previous cholecystectomy. Calixto Woodruff MD Chest CT 07/09/16 0000 Signed Impressions: Service Date/Time: Saturday, July 09, 2016 14:43 - CONCLUSION: 1. Small right pleural effusion and minimal right basilar consolidation. 2. 6 mm left basilar nodule. Followup CT chest 6 months recommended. Florian Pepper MD Chest X-Ray 07/08/16 0000 Signed Impressions: Service Date/Time: Friday, July 08, 2016 16:26 - CONCLUSION: Chronic right lung base opacity unchanged. No new pulmonary opacity. Alexandru Lynch MD Lower Extremity Ultrasound 06/25/16 0000 Signed Impressions: Service Date/Time: Saturday, June 25, 2016 15:56 - CONCLUSION: Negative exam with no evidence of deep venous thrombosis. Soft tissue edema. Mike Leija MD Port Line Insertion 06/20/16 0000 Signed Impressions: Service Date/Time: Monday, June 20, 2016 08:53 - CONCLUSION: Uncomplicated ultrasound and fluoroscopic guided implanted central venous port catheter placement as described in detail above. An 8 Swiss Power port was placed. Kevan Salgado Jr., MD . Procedures Stump debridement and wound VAC placement 06/16/16 TPN Skin biopsies, face 07/24/16 . 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 No other specific skin pathology noted. . (7) pulmonary nodule on CT scan, 2.6 mm at the left base (8) depression (9) COPD, not oxygen dependent (10) history of breast cancer (11) anxiety (12) anemia Symptom Scale: (1) pain 0-10 Scale: 6 (she has been receiving [place] and parenteral hydromorphone) Comment: Pain has been mostly abdominal and pain related to her multiple skin lesions. . (2) anxiety 0-10 Scale: 4 (she has had occasional doses of Xanax that she says helps, but her anxiety is worsening overall) Comment: Well controlled with scheduled alprazolam. Not needing breakthrough alprazolam at this time. . (3) depression 0-10 Scale: 4 (long-term, was on Celexa at home, now on Zoloft; remains tearful frequently) Comment: Reasonably well controlled with sertraline. . Pertinent Non-Medical Issues Psychosocial: Second marriage for about 1 year, but most of that time in the hospital or SNF. No children, but has close friend Anuradha. Spiritual: Evaluation pending Legal: The patient has capacity for decision-making, and has designated her friend Anuradha and her Dwight as primary and secondary HCS respectively Ethical issues impacting care: None. . Important Contacts Primary HCS, close friend Anuradha Christian [phone] : Dwight Wilson [phone] . Prognosis She has suffered multiple illnesses, infections, and complications during the last 10 months, and now is TPN dependent every 2 short-bowel syndrome. Her overall prognosis would appear to be poor, and she would be an appropriate hospice candidate if she elected to stop all aggressive care including TPN. . Code Status: Full Code Plan ==FULL CODE ==GOALS: The patient does want to continue AGGRESSIVE CARE. She has been frustrated by all the complications and the debility caused by pain, anxiety, and depression, but wants to remain a full code and continue all care available for now. She has a good understanding of hospice, as she has been the primary caregiver for 3 of her relatives who were on hospice and at end-of-life. She does not desire hospice services at this time. ==DECISION-MAKING: The patient is capacitated for decision making, and has designated her close friend Anuradha Christian and her Dwight Wilson as primary and secondary HCS respectively. ==SYMPTOMS: * Pain: The patient has ongoing abdominal pain as well as pain related to the multiple skin lesions and maceration. She is definitely improved on the current methadone dose, needing only occasional PRN hydrocodone now. No further recommendations at this time. * Anxiety: She is definitely improved on the current Xanax dosing. She is not needing breakthough Xanax. Anxiety also helped by sertraline. No further recommendations at this time * Depression: I suspect most of her depression has been via a combination of some chronic depression (she had been on Celexa for quite some time at home) and some situational depression at this time. She remains on Zoloft here, and does seem more cheerful now. * Rash: This has been improving, drying, healing. The biopsy showed some ulceration/inflammation, but is nonspecific. No further recommendations at this time. ==Palliative Care will continue to follow the patient during this hospitalization to further assist with symptom management and to re-visit goals of medical treatment if there are significant changes in the course of her illness. . . Attestation To help prompt me to consider important information that might be impacting today's encounter and assessment, information from prior notes written by myself or my colleagues may have been "brought forward" into today's note. My signature on this note, however, is an attestation that I personally performed the exam, history, and/or decision-making noted today, and, unless otherwise indicated, the interactions with patient, family, and staff as well as the review of records all occurred today. I also attest that the listed assessment and stated plan reflect my best clinical judgment today based on the combination of historical information, prior notes, and today's exam/ interactions. When time spent is documented, it refers only to time spent today by the signer, or if indicated, combined time spent today by collaborating physician/nurse practitioner. . Rush Kaur MD Aug 03, 2016 17:51
[2016-08-03 20:00] VITALS: BP 144/57; PULSE 80; RESP 18; TEMP 99.6; O2SAT 91
[2016-08-03] MEDS: CLINIMIX E 5/25 2000 mL- >42 mls/hr IV-CENTRAL SCH ×3 (20:00)
[2016-08-03] MEDS: MIRTAZAPINE ODT 15 MG TAB PO SCH (20:27)
[2016-08-03] MEDS: GABAPENTIN 100 MG CAP PO SCH (20:27)
[2016-08-04] VITALS (7 sets, daily range): BP systolic 105–144; BP diastolic 57–65; PULSE 84–89; RESP 12–20; TEMP 96–100.3; O2SAT 87–94
[2016-08-04] MEDS: ACETAMINOPHEN/HYDROcodone 325 MG/10 MG TAB PO PRN ×2 (02:31→13:06)
[2016-08-04] MEDS: CLOTRIMAZOLE 1% CREAM 15 GM TOPICAL SCH ×3 (06:00→22:00)
[2016-08-04] MEDS: ERYTHROMYCIN 0.5% OPTH OINT 3.5 GM TUBO LEFT EYE SCH ×2 (06:00→13:07)
[2016-08-04] MEDS: valACYclovir HCL 500 MG TAB PO SCH ×2 (06:34→13:06)
[2016-08-04] MEDS: ALPRAZolam 0.25 MG TAB PO SCH ×2 (06:34→13:07)
[2016-08-04 08:21] LABS: BICARBONATE 27.3 MEQ/L (21.0-32.0)
[2016-08-04] MEDS: SODIUM CHLORIDE 0.9% FLUSH 5 ML FLUSH IV FLUSH SCH (09:00)
[2016-08-04 09:26] LABS: BASOPHIL # 0.1 TH/MM3 (0-0.2); EOSINOPHIL # 1.1 TH/MM3 (0-0.4); EOSINOPHIL % 12.2 % (0.0-4.0); HEMATOCRIT 30.4 % (35.0-46.0); HEMO FLAGS DIFF FINAL; LYMPHOCYTE # 2.8 TH/MM3 (1.0-4.8); MEAN CELL VOLUME 96.9 FL (80.0-100.0); MEAN CORPUSCULAR HGB CONC 33.1 % (32.0-36.0); MONO % 11.4 % (0.0-8.0); NEUT % 44.4 % (16.0-70.0); PLATELET COUNT 670 TH/MM3 (150-450); RED BLOOD COUNT 3.14 MIL/MM3 (4.00-5.30); WHITE BLOOD COUNT 8.9 TH/MM3 (4.0-11.0)
--- NOTE | 2016-08-04 09:57 | HHI.IDPN ---
Subjective Subjective Remarks Notes reviewed Occ low grade temps Rash drying up, still itchy UC with Morganella No new (+) BC Ham[place] in place - changed 07/30 07/15, 07/16, 07/20 BC with Staph hominis Echo with possible MV vegetation Antibiotics Vancomycin Valtrex - to finish today 08/04 Diflucan Invanz Lines Port Past Medical History 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 Vital Signs Date Time Temp Pulse Resp B/P Pulse Ox O2 Delivery O2 Flow Rate FiO2 08/04/16 08:00 98.2 84 12 111/65 87 08/04/16 04:00 98.8 88 16 105/57 90 08/04/16 00:00 100.3 87 18 127/60 93 08/03/16 20:20 Room Air 08/03/16 20:00 99.6 80 18 144/57 91 08/03/16 16:00 Room Air 08/03/16 16:00 98.3 81 20 100/53 94 08/03/16 12:00 Room Air 08/03/16 12:00 98.3 81 20 97/55 90 08/03/16 08/03/16 08/04/16 15:00 23:00 07:00 Intake Total 585 ml 600 ml 850 ml Output Total 400 ml 1500 ml Balance 185 ml 600 ml -650 ml Intake Oral 120 ml 120 ml IV Total 465 ml 200 ml 250 ml TPN/PPN 400 ml 480 ml Output Urine Total 400 ml 300 ml Stool Total 1200 ml . Laboratory Tests Test 08/03/16 08/04/16 13:21 08:45 White Blood Count 8.3 TH/MM3 8.9 TH/MM3 Red Blood Count 3.22 MIL/MM3 3.14 MIL/MM3 Hemoglobin 10.0 GM/DL 10.1 GM/DL Hematocrit 31.2 % 30.4 % Mean Corpuscular Volume 97.0 FL 96.9 FL Mean Corpuscular Hemoglobin 31.1 PG 32.0 PG Mean Corpuscular Hemoglobin 32.0 % 33.1 % Concent Red Cell Distribution Width 18.0 % 18.0 % Platelet Count 709 TH/MM3 670 TH/MM3 Mean Platelet Volume 7.7 FL 8.0 FL Neutrophils (%) (Auto) 44.4 % Lymphocytes (%) (Auto) 31.0 % Monocytes (%) (Auto) 11.4 % Eosinophils (%) (Auto) 12.2 % Basophils (%) (Auto) 1.0 % Neutrophils # (Auto) 4.0 TH/MM3 Lymphocytes # (Auto) 2.8 TH/MM3 Monocytes # (Auto) 1.0 TH/MM3 Eosinophils # (Auto) 1.1 TH/MM3 Basophils # (Auto) 0.1 TH/MM3 CBC Comment DIFF FINAL Differential Comment Laboratory Tests Test 08/03/16 08/04/16 13:06 06:48 Sodium Level 142 MEQ/L 142 MEQ/L Potassium Level 4.1 MEQ/L 4.0 MEQ/L Chloride Level 110 MEQ/L 107 MEQ/L Carbon Dioxide Level 28.8 MEQ/L 27.3 MEQ/L Anion Gap 3 MEQ/L 8 MEQ/L Blood Urea Nitrogen 20 MG/DL 23 MG/DL Creatinine 0.67 MG/DL 0.61 MG/DL Estimat Glomerular Filtration 87 ML/MIN 97 ML/MIN Rate Random Glucose 107 MG/DL 109 MG/DL Calcium Level 9.5 MG/DL 9.1 MG/DL Imaging Liver Ultrasound 07/12/16 0000 Signed Impressions: Service Date/Time: Tuesday, July 12, 2016 18:07 - CONCLUSION: 1. No acute abnormality demonstrated. 2. Heterogeneous liver without measurable mass. 3. Small and heterogeneous spleen without a measurable mass. 4. Cortical thinning and scarring of the right kidney. 5. Previous cholecystectomy. Calixto Woodruff MD Chest CT 07/09/16 0000 Signed Impressions: Service Date/Time: Saturday, July 09, 2016 14:43 - CONCLUSION: 1. Small right pleural effusion and minimal right basilar consolidation. 2. 6 mm left basilar nodule. Followup CT chest 6 months recommended. Florian Pepper MD Chest X-Ray 07/08/16 0000 Signed Impressions: Service Date/Time: Friday, July 08, 2016 16:26 - CONCLUSION: Chronic right lung base opacity unchanged. No new pulmonary opacity. Alexandru Lynch MD Lower Extremity Ultrasound 06/25/16 0000 Signed Impressions: Service Date/Time: Saturday, June 25, 2016 15:56 - CONCLUSION: Negative exam with no evidence of deep venous thrombosis. Soft tissue edema. Mike Leija MD Port Line Insertion 06/20/16 0000 Signed Impressions: Service Date/Time: Monday, June 20, 2016 08:53 - CONCLUSION: Uncomplicated ultrasound and fluoroscopic guided implanted central venous port catheter placement as described in detail above. An 8 Turkish Power port was placed. Kevan Salgado Jr., MD Chest X-Ray 06/17/16 0000 Signed Impressions: Service Date/Time: Friday, June 17, 2016 14:12 - CONCLUSION: Right base infiltrate and small effusion. Calixto Woodruff MD Physical Exam GENERAL: awake and alert. NAD SKIN: Warm and dry. Rash on face around eyes, nose lips and chin, red, drying up, less red. Rash in back all coalesced, drying up. Same as in her buttocks and also some in the groin areas. The redness surrounding his abdominal wall fistula is less red, and much improved. Bullous lesions in her fingers are all dry HEENT: Rains conjunctiva. No petechia or hemorrhage. No scleral icterus. Moist oral mucosa. NECK: Supple and not tender, no meningeal signs. No lymphadenopathy. CARDIOVASCULAR: Regular rate and rhythm. No murmur, no rub. RESPIRATORY: Coarse BS tatyana. Port L upper chest looks ok, currently accessed. ABDOMEN: Soft, nondistended. Ouput from her EC fistula is decreased. There is mild tenderness on palpation of the abdomen especially in the midline. No guarding. No rebound. EXTREMITIES: LBKA stump with dry intact dressing. NEUROLOGICAL: Grossly non-focal PSYCH: Calm and cooperative LINE: Port looks ok. Assessment & Plan Remarks IMPRESSION Infection LBKA stump, C/S Klebsiella ESBL+ and Morganella - S/P debridement - S/P Rx Multiple Abx allergy - has tolerated Cephalosporins in the past PVD Previous abdominal OR for ischemic bowel, has fistula - has increased output Cough, better Fevers, etiology? up again Staph hominis sepsis, has MV vegetation Rash on face and back, drying up - biopsy not diagnostic Tremors both hands, ?deconditioning - better RECOMMENDATION Continue Vancomycin for Staph hominis Continue Valtrex, to finish today Stop Diflucan Continue Invanz for the Morganella in UC - plan at least 14 days Follow temps Monitor progress D/W Dr Holm yesterday Explained plan to the patient D/W Sara Beasley MD Aug 04, 2016 09:57
--- NOTE | 2016-08-04 10:28 | HHI.PR ---
Subjective Remarks No new issues. Zinc is low. Patient is still not eating. At the most she would eat 2 yogurt for the whole day. Objective Vitals Vital Signs Date Time Temp Pulse Resp B/P Pulse Ox O2 Delivery O2 Flow Rate FiO2 08/04/16 08:00 98.2 84 12 111/65 87 08/04/16 04:00 98.8 88 16 105/57 90 08/04/16 00:00 100.3 87 18 127/60 93 08/03/16 20:20 Room Air 08/03/16 20:00 99.6 80 18 144/57 91 08/03/16 16:00 Room Air 08/03/16 16:00 98.3 81 20 100/53 94 08/03/16 12:00 Room Air 08/03/16 12:00 98.3 81 20 97/55 90 I/O 08/03/16 08/03/16 08/03/16 08/04/16 08/04/16 08/04/16 07:00 15:00 23:00 07:00 15:00 23:00 Intake Total 950 ml 585 ml 600 ml 850 ml Output Total 675 ml 400 ml 1500 ml Balance 275 ml 185 ml 600 ml -650 ml Intake Oral 50 ml 120 ml 120 ml IV Total 250 ml 465 ml 200 ml 250 ml TPN/PPN 400 ml 400 ml 480 ml Lipid 250 ml Output Urine Total 475 ml 400 ml 300 ml Stool Total 200 ml 1200 ml Result Diagram: 08/04/16 0845 08/04/16 0648 Objective Remarks GENERAL: Chronically ill-appearing patient. SKIN: Face, periorbital, perioral, upper back area - dry and scaly lesions- continues to crust and drying up. CARDIOVASCULAR: Regular rate and rhythm without murmurs, gallops, or rubs. RESPIRATORY: Clear to auscultation. Breath sounds equal bilaterally. No wheezes , rales, or rhonchi. GASTROINTESTINAL: Abdomen soft, non-tender, nondistended. Multiple draining mid abdomen enterocutaneous fistula. No guarding. MUSCULOSKELETAL: Left BKA wound appeared clean and dry. Very tender to palpation. NEUROLOGICAL: Normal speech. Procedures Left stump debridement by Dr. Hill on 06/15/16 A/P Problem List: (1) Infection of amputation stump ICD Code: T87.40 Status: Resolved (2) 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 (3) Hypercoagulable state ICD Code: D68.59 Status: Chronic (4) HTN (hypertension) ICD Code: I10 Status: Chronic (5) Anxiety about health ICD Code: F41.8 Status: Chronic (6) Diarrhea ICD Code: R19.7 Status: Acute (7) Severe protein-calorie malnutrition ICD Code: E43 Status: Acute (8) Fungal skin infection ICD Code: B36.9 Status: Acute (9) Transient lingual papillitis ICD Code: K14.0 Status: Acute (10) Hospital acquired PNA ICD Code: J18.9 Status: Acute (11) Major depressive disorder, recurrent severe without psychotic features ICD Code: F33.2 Status: Acute (12) Disseminated herpes zoster ICD Code: B02.7 Status: Acute Assessment and Plan The patient is a 70-year-old female with a medical history significant for ischemic bowel with resection in Oct 2015 and development of chronic enterocutaneous fistula, asthma, depression, COPD, severe peripheral vascular disease status post left BKA, multiple hospitalizations and readmissions. The patient was discharged from the [facility]. The stitches on the left stump were taken out 2 weeks ago. She reports that the wound has been opening up when she participated with physical therapy. She returned due to wound dehiscence and infection. Patient has since developed an unusual rash and staff Hominis bacteremia -Staph Hominis bacteremia -Perioral, periorbital lesions- ID following, Dr. Greenfield - magic mouthwash, pain control. She has significant skin breakdown, wound care is following. -on Valtrex till 08/04 on IV Vancomycin - pt does have port. started on empiric IV Diflucan 07/26 started on Invanz per infectious disease. Rash: Unusual appearance and presentation, neg for herpes, biopsy inconclusive. Possibly related to zinc deficiency. - Zinc cannot be added to TPN per pharmacy. Ordered oral zinc sulfate replacement. -Enterocutaneous fistula. per surgery, no further surgical intervention. Optimize nutrition with PO and TPN. wound care. -Malnutrition: Diarrhea-likely secondary to short gut syndrome, C diff negative. cont Imodium as needed. - continue to monitor - on TPN for nutritional support - Add Megace to stimulate appetite. -Infected left BKA stump: Patient status post BKA on 05/02/16. Dr. Hill ff. S/P debridement- dry -. Wound cultures growing Klebsiella ESBL positive and Morganella s/p tx with zerbaxa - Dilaudid IV for breakthrough pain. Continue Percocet. - on Methadone - vascular surgery s/p wound vac and removal, wound appears clean. abx per ID. -Fungal rash/groin - cont local antifungal -Hypercoagulable state: History of ischemic bowel and severe peripheral vascular disease. - Continue Xarelto -Anxiety and depression: -more feisty. no outbursts of crying on Seroquel and Zoloft. on Zoloft pt refused cymbalta. start Remeron. palliative care for support, pain control, -COPD: Breathing treatments as needed. Stable. -Severe protein-calorie malnutrition- Patient currently on TPN and being followed by dietitian. Ensure 1 can by mouth 3 times a day. -Skin care. She has excoriated skin over the buttock, abdomen and perineum. Continue anti-fungal cream. Has Hamlin and rectal seal to prevent further skin breakdown. -GERD: Continue PPI Hypokalemia -improved. continue to monitor -Pulmonary nodule. Rpt CT in 6 mos. Patient previously counseled about this finding and the need to follow-up. GI prophylaxis: PPI. DVT PPx: Xarelto Discharge Planning DC pending clinical improvement Problem Qualifiers (1) HTN (hypertension): Qualified Code: I10 - Essential hypertension (2) Diarrhea: Qualified Code: R19.7 - Diarrhea, unspecified type Manolo Holm MD Aug 04, 2016 10:28
[2016-08-04] MEDS: FERROUS SULFATE 325 MG (65 MG ELEMENTAL IRON) TAB PO SCH (10:36)
[2016-08-04] MEDS: MAGNESIUM OXIDE 400 MG TAB PO SCH (10:36)
[2016-08-04] MEDS: LACTOBACILLUS ACIDOPHILUS TAB PO SCH ×3 (10:36→17:20)
[2016-08-04] MEDS: CALCITRIOL 0.25 MCG CAP PO SCH (10:36)
[2016-08-04] MEDS: DILTIAZEM-CD 120 MG CAP ER PO SCH (10:36)
[2016-08-04] MEDS: CALCIUM/VITAMIN D 250 MG/125 U TAB PO SCH (10:37)
[2016-08-04] MEDS: RIVAROXABAN 20 MG TAB PO SCH (10:37)
[2016-08-04] MEDS: METHADONE HCL 10 MG TAB PO SCH (10:39)
[2016-08-04] MEDS: PANTOPRAZOLE SOD 20 MG DELAYED RELEASE TAB PO SCH (10:39)
[2016-08-04] MEDS: SERTRALINE HCL 100 MG TAB PO SCH (10:39)
[2016-08-04] MEDS: NYSTAT/DIPHENHY/LIDO MOUTHWASH (Adult) 120ML SWISH-SWAL SCH ×3 (10:40→17:20)
[2016-08-04] MEDS: NYSTATIN 100,000 U/GM PWD 15 GM BTL TOPICAL SCH (10:41)
[2016-08-04] MEDS: prednisoLONE ACETATE 1% OPHT SUSP 5 ML BTL LEFT EYE SCH (10:41)
[2016-08-04] MEDS: ERTAPENEM INJ 1,000 MG in SODIUM CHLORIDE 0.9% INJ 100 ML IV SCH ×2 (13:06→13:16)
[2016-08-04] MEDS: ZINC SULFATE 220 MG CAP PO SCH (13:06)
[2016-08-04] MEDS: MEGESTROL ACETATE SUSP 400 MG/10 ML CUP PO SCH (13:12)
[2016-08-04] MEDS: VANCOMYCIN INJ 1,250 MG in SODIUM CHLOR 0.9% 250 ML INJ 250 ML IV SCH (17:19)
[2016-08-05] MEDS: MAGNESIUM OXIDE 400 MG TAB PO SCH ×3 (00:35→21:34)
[2016-08-05] MEDS: PANTOPRAZOLE SOD 20 MG DELAYED RELEASE TAB PO SCH ×3 (00:35→21:32)
[2016-08-05] MEDS: GABAPENTIN 100 MG CAP PO SCH ×2 (00:36→21:34)
[2016-08-05] MEDS: ALPRAZolam 0.25 MG TAB PO SCH ×4 (00:36→21:32)
[2016-08-05] MEDS: MIRTAZAPINE ODT 15 MG TAB PO SCH ×2 (00:36→21:40)
[2016-08-05] MEDS: METHADONE HCL 10 MG TAB PO SCH ×3 (00:37→21:33)
[2016-08-05] MEDS: CALCIUM/VITAMIN D 250 MG/125 U TAB PO SCH ×3 (00:37→21:34)
[2016-08-05] MEDS: SODIUM CHLORIDE 0.9% FLUSH 5 ML FLUSH IV FLUSH SCH ×3 (00:37→21:30)
[2016-08-05] MEDS: CLINIMIX E 5/25 2000 mL- >42 mls/hr IV-CENTRAL SCH ×6 (00:38→21:30)
[2016-08-05] MEDS: prednisoLONE ACETATE 1% OPHT SUSP 5 ML BTL LEFT EYE SCH ×3 (00:39→21:30)
[2016-08-05] MEDS: ERYTHROMYCIN 0.5% OPTH OINT 3.5 GM TUBO LEFT EYE SCH ×4 (00:40→22:37)
[2016-08-05] MEDS: NYSTAT/DIPHENHY/LIDO MOUTHWASH (Adult) 120ML SWISH-SWAL SCH ×5 (00:41→21:40)
[2016-08-05] MEDS: NYSTATIN 100,000 U/GM PWD 15 GM BTL TOPICAL SCH ×3 (00:41→21:40)
[2016-08-05] MEDS: CLOTRIMAZOLE 1% CREAM 15 GM TOPICAL SCH ×3 (05:55→22:38)
[2016-08-05 06:02] VITALS: BP 133/64; PULSE 90; RESP 18; TEMP 98.8; O2SAT 93
[2016-08-05 07:08] LABS: HEMATOCRIT 29.3 % (35.0-46.0); MEAN CELL VOLUME 96.2 FL (80.0-100.0); MEAN CORPUSCULAR HEMOGLOBIN 32.3 PG (27.0-34.0); MEAN CORPUSCULAR HGB CONC 33.6 % (32.0-36.0); PLATELET COUNT 706 TH/MM3 (150-450); RED BLOOD COUNT 3.05 MIL/MM3 (4.00-5.30); REVIEW FLAG FINAL; WHITE BLOOD COUNT 10.1 TH/MM3 (4.0-11.0)
[2016-08-05 07:31] LABS: BICARBONATE 31.9 MEQ/L (21.0-32.0); POTASSIUM 3.5 MEQ/L (3.5-5.1)
[2016-08-05 08:00] VITALS: BP 124/69; PULSE 98; RESP 18; TEMP 98.1; O2SAT 90
[2016-08-05] MEDS: MEGESTROL ACETATE SUSP 400 MG/10 ML CUP PO SCH (11:26)
[2016-08-05] MEDS: CALCITRIOL 0.25 MCG CAP PO SCH (11:26)
[2016-08-05] MEDS: DILTIAZEM-CD 120 MG CAP ER PO SCH (11:26)
[2016-08-05] MEDS: ZINC SULFATE 220 MG CAP PO SCH (11:27)
[2016-08-05] MEDS: FERROUS SULFATE 325 MG (65 MG ELEMENTAL IRON) TAB PO SCH (11:27)
[2016-08-05] MEDS: SERTRALINE HCL 100 MG TAB PO SCH (11:27)
[2016-08-05] MEDS: LACTOBACILLUS ACIDOPHILUS TAB PO SCH ×3 (11:28→18:16)
[2016-08-05] MEDS: RIVAROXABAN 20 MG TAB PO SCH (11:28)
[2016-08-05] MEDS: COLLAGENASE OINT 30 GM TUBE TOP SCH (11:29)
[2016-08-05] MEDS: VANCOMYCIN INJ 1,250 MG in SODIUM CHLOR 0.9% 250 ML INJ 250 ML IV SCH (11:29)
[2016-08-05] MEDS: CALAMINE LOTION 180 APPLIC/180 ML BTL TOPICAL PRN (11:30)
--- NOTE | 2016-08-05 11:35 | HHI.PR ---
Subjective Remarks Rectal tube came out. No further diarrhea noted as of yet. Otherwise no other issues. Discussed with RN. Still not eating much. Objective Vitals Vital Signs Date Time Temp Pulse Resp B/P Pulse Ox O2 Delivery O2 Flow Rate FiO2 08/05/16 08:00 Room Air 08/05/16 08:00 98.1 98 18 124/69 90 08/05/16 06:02 98.8 90 18 133/64 93 08/04/16 23:00 98.9 89 18 144/65 94 08/04/16 21:25 97.1 85 20 114/59 94 08/04/16 20:00 Room Air 08/04/16 16:00 96.0 84 18 136/65 94 08/04/16 12:30 97.1 86 16 130/65 89 08/04/16 12:00 89 Room Air 2.00 I/O 08/04/16 08/04/16 08/04/16 08/05/16 08/05/16 08/05/16 07:00 15:00 23:00 07:00 15:00 23:00 Intake Total 850 ml 360 ml 300 ml Output Total 1500 ml 400 ml 350 ml 650 ml Balance -650 ml -40 ml -350 ml -350 ml Intake Oral 120 ml 360 ml IV Total 250 ml TPN/PPN 480 ml 300 ml Output Urine Total 300 ml 400 ml 350 ml 150 ml Stool Total 1200 ml 500 ml Result Diagram: 08/05/16 0600 08/05/16 0600 Objective Remarks GENERAL: Chronically ill-appearing patient. SKIN: Face, periorbital, perioral, upper back area - dry and scaly lesions- continues to crust and drying up. CARDIOVASCULAR: Regular rate and rhythm without murmurs, gallops, or rubs. RESPIRATORY: Clear to auscultation. Breath sounds equal bilaterally. No wheezes , rales, or rhonchi. GASTROINTESTINAL: Abdomen soft, non-tender, nondistended. Multiple draining mid abdomen enterocutaneous fistula. No guarding. MUSCULOSKELETAL: Left BKA wound appeared clean and dry. Very tender to palpation. NEUROLOGICAL: Normal speech. Procedures Left stump debridement by Dr. Hill on 06/15/16 A/P Problem List: (1) Infection of amputation stump ICD Code: T87.40 Status: Resolved (2) 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 (3) Hypercoagulable state ICD Code: D68.59 Status: Chronic (4) HTN (hypertension) ICD Code: I10 Status: Chronic (5) Anxiety about health ICD Code: F41.8 Status: Chronic (6) Diarrhea ICD Code: R19.7 Status: Acute (7) Severe protein-calorie malnutrition ICD Code: E43 Status: Acute (8) Fungal skin infection ICD Code: B36.9 Status: Acute (9) Transient lingual papillitis ICD Code: K14.0 Status: Acute (10) Hospital acquired PNA ICD Code: J18.9 Status: Acute (11) Major depressive disorder, recurrent severe without psychotic features ICD Code: F33.2 Status: Acute (12) Disseminated herpes zoster ICD Code: B02.7 Status: Acute Assessment and Plan The patient is a 70-year-old female with a medical history significant for ischemic bowel with resection in Oct 2015 and development of chronic enterocutaneous fistula, asthma, depression, COPD, severe peripheral vascular disease status post left BKA, multiple hospitalizations and readmissions. The patient was discharged from the hospital on 06/06/16 [facility]. The stitches on the left stump were taken out 2 weeks ago. She reports that the wound has been opening up when she participated with physical therapy. She returned due to wound dehiscence and infection. Patient has since developed an unusual rash and staff Hominis bacteremia -Staph Hominis bacteremia -Perioral, periorbital lesions- ID following, Dr. Greenfield - magic mouthwash, pain control. She has significant skin breakdown, wound care is following. -Patient completed treatment with Valtrex. on IV Vancomycin - pt does have port. started on empiric IV Diflucan 07/26 started on Invanz per infectious disease. Rash: Unusual appearance and presentation, neg for herpes, biopsy inconclusive. Possibly related to zinc deficiency. - Zinc cannot be added to TPN per pharmacy. Ordered oral zinc sulfate replacement. -Enterocutaneous fistula. per surgery, no further surgical intervention. Optimize nutrition with PO and TPN. wound care. -Malnutrition: Diarrhea-likely secondary to short gut syndrome, C diff negative. cont Imodium as needed. - continue to monitor - on TPN for nutritional support -Continue Megace to stimulate appetite. -Infected left BKA stump: Patient status post BKA on 05/02/16. Dr. Hill ff. S/P debridement- dry -. Wound cultures growing Klebsiella ESBL positive and Morganella s/p tx with zerbaxa - Dilaudid IV for breakthrough pain. Continue Percocet. - on Methadone - vascular surgery s/p wound vac and removal, wound appears clean. abx per ID. -Fungal rash/groin - cont local antifungal -Hypercoagulable state: History of ischemic bowel and severe peripheral vascular disease. - Continue Xarelto -Anxiety and depression: -more feisty. no outbursts of crying on Seroquel and Zoloft. on Zoloft pt refused cymbalta. start Remeron. palliative care for support, pain control, -COPD: Breathing treatments as needed. Stable. -Severe protein-calorie malnutrition- Patient currently on TPN and being followed by dietitian. Ensure 1 can by mouth 3 times a day. -Skin care. She has excoriated skin over the buttock, abdomen and perineum. Continue anti-fungal cream. Has Hamlin. Discussed with RN to replace rectal tube if/when diarrhea start again. -GERD: Continue PPI Hypokalemia -improved. continue to monitor -Pulmonary nodule. Rpt CT in 6 mos. Patient previously counseled about this finding and the need to follow-up. GI prophylaxis: PPI. DVT PPx: Xarelto Discharge Planning DC pending clinical improvement Problem Qualifiers (1) HTN (hypertension): Qualified Code: I10 - Essential hypertension (2) Diarrhea: Qualified Code: R19.7 - Diarrhea, unspecified type Manolo Holm MD Aug 05, 2016 11:35
[2016-08-05 12:00] VITALS: BP 127/60; PULSE 81; RESP 18; TEMP 98.4; O2SAT 90
[2016-08-05] MEDS: ERTAPENEM INJ 1,000 MG in SODIUM CHLORIDE 0.9% INJ 100 ML IV SCH (15:34)
[2016-08-05 16:00] VITALS: BP 132/66; PULSE 90; RESP 18; TEMP 98.7; O2SAT 91
[2016-08-05] MEDS: ACETAMINOPHEN/HYDROcodone 325 MG/10 MG TAB PO PRN (18:19)
[2016-08-05 20:30] VITALS: BP 128/65; PULSE 83; RESP 17; TEMP 97.5; O2SAT 96
[2016-08-06] VITALS: BP 114/63; PULSE 89; RESP 16; TEMP 97.9; O2SAT 94
[2016-08-06 04:00] VITALS: BP 141/67; PULSE 85; RESP 17; TEMP 99.1; O2SAT 93
[2016-08-06] MEDS ORDERED: PHARMACY ORDERED LAB XX ONE (04:45)
[2016-08-06] MEDS: VANCOMYCIN INJ 1,250 MG in SODIUM CHLOR 0.9% 250 ML INJ 250 ML IV SCH ×2 (05:16→23:13)
[2016-08-06] MEDS: ACETAMINOPHEN/HYDROcodone 325 MG/10 MG TAB PO PRN (05:16)
[2016-08-06] MEDS: ALPRAZolam 0.25 MG TAB PO SCH ×3 (05:16→22:57)
[2016-08-06] MEDS: ERYTHROMYCIN 0.5% OPTH OINT 3.5 GM TUBO LEFT EYE SCH ×3 (05:17→21:04)
[2016-08-06] MEDS: CLOTRIMAZOLE 1% CREAM 15 GM TOPICAL SCH ×3 (05:17→21:05)
[2016-08-06 08:29] VITALS: BP 107/56; PULSE 86; RESP 17; TEMP 98.1; O2SAT 94
[2016-08-06] MEDS: DILTIAZEM-CD 120 MG CAP ER PO SCH (11:20)
[2016-08-06] MEDS: CALCIUM/VITAMIN D 250 MG/125 U TAB PO SCH ×2 (11:20→21:03)
[2016-08-06] MEDS: NYSTAT/DIPHENHY/LIDO MOUTHWASH (Adult) 120ML SWISH-SWAL SCH ×4 (11:20→21:03)
[2016-08-06] MEDS: METHADONE HCL 10 MG TAB PO SCH ×2 (11:20→21:02)
[2016-08-06] MEDS: LACTOBACILLUS ACIDOPHILUS TAB PO SCH ×3 (11:21→16:24)
[2016-08-06] MEDS: ZINC SULFATE 220 MG CAP PO SCH (11:21)
[2016-08-06] MEDS: CALCITRIOL 0.25 MCG CAP PO SCH (11:21)
[2016-08-06] MEDS: MEGESTROL ACETATE SUSP 400 MG/10 ML CUP PO SCH (11:21)
[2016-08-06] MEDS: SERTRALINE HCL 100 MG TAB PO SCH (11:21)
[2016-08-06] MEDS: FERROUS SULFATE 325 MG (65 MG ELEMENTAL IRON) TAB PO SCH (11:21)
[2016-08-06] MEDS: PANTOPRAZOLE SOD 20 MG DELAYED RELEASE TAB PO SCH ×2 (11:21→21:02)
[2016-08-06] MEDS: RIVAROXABAN 20 MG TAB PO SCH (11:21)
[2016-08-06] MEDS: CALAMINE LOTION 180 APPLIC/180 ML BTL TOPICAL PRN (11:22)
[2016-08-06] MEDS: prednisoLONE ACETATE 1% OPHT SUSP 5 ML BTL LEFT EYE SCH ×2 (11:22→21:04)
[2016-08-06] MEDS: COLLAGENASE OINT 30 GM TUBE TOP SCH (11:22)
[2016-08-06] MEDS: NYSTATIN 100,000 U/GM PWD 15 GM BTL TOPICAL SCH ×2 (11:23→21:04)
[2016-08-06] MEDS: SODIUM CHLORIDE 0.9% FLUSH 5 ML FLUSH IV FLUSH SCH ×2 (11:23→21:03)
--- NOTE | 2016-08-06 11:28 | HHI.PR ---
Subjective Remarks Patient is having more diarrhea. Rectal to be inserted again today. She is still not eating much. Objective Vitals Vital Signs Date Time Temp Pulse Resp B/P Pulse Ox O2 Delivery O2 Flow Rate FiO2 08/06/16 08:29 98.1 86 17 107/56 94 08/06/16 04:00 99.1 85 17 141/67 93 08/06/16 00:00 97.9 89 16 114/63 94 08/05/16 20:30 97.5 83 17 128/65 96 08/05/16 20:00 Room Air 08/05/16 16:00 98.7 90 18 132/66 91 08/05/16 12:00 98.4 81 18 127/60 90 I/O 08/05/16 08/05/16 08/05/16 08/06/16 08/06/16 08/06/16 07:00 15:00 23:00 07:00 15:00 23:00 Intake Total 300 ml 1138 ml 180 ml 752 ml Output Total 650 ml 1400 ml 200 ml Balance -350 ml -262 ml -20 ml 752 ml Intake Oral 240 ml 180 ml IV Total 249 ml TPN/PPN 300 ml 649 ml 752 ml Output Urine Total 150 ml 900 ml 200 ml Stool Total 500 ml 500 ml # Bowel Movements 2 1 Result Diagram: 08/05/16 0600 08/06/16 0540 Objective Remarks GENERAL: Chronically ill-appearing patient. SKIN: Face, periorbital, perioral, upper back area - dry and scaly lesions- continues to crust and drying up. CARDIOVASCULAR: Regular rate and rhythm without murmurs, gallops, or rubs. RESPIRATORY: Clear to auscultation. Breath sounds equal bilaterally. No wheezes , rales, or rhonchi. GASTROINTESTINAL: Abdomen soft, non-tender, nondistended. Multiple draining mid abdomen enterocutaneous fistula. No guarding. MUSCULOSKELETAL: Left BKA wound appeared clean and dry. Very tender to palpation. NEUROLOGICAL: Normal speech. Procedures Left stump debridement by Dr. Hill on 06/15/16 A/P Problem List: (1) Infection of amputation stump ICD Code: T87.40 Status: Resolved (2) 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 (3) Hypercoagulable state ICD Code: D68.59 Status: Chronic (4) HTN (hypertension) ICD Code: I10 Status: Chronic (5) Anxiety about health ICD Code: F41.8 Status: Chronic (6) Diarrhea ICD Code: R19.7 Status: Acute (7) Severe protein-calorie malnutrition ICD Code: E43 Status: Acute (8) Fungal skin infection ICD Code: B36.9 Status: Acute (9) Transient lingual papillitis ICD Code: K14.0 Status: Acute (10) Hospital acquired PNA ICD Code: J18.9 Status: Acute (11) Major depressive disorder, recurrent severe without psychotic features ICD Code: F33.2 Status: Acute (12) Disseminated herpes zoster ICD Code: B02.7 Status: Acute Assessment and Plan The patient is a 70-year-old female with a medical history significant for ischemic bowel with resection in Oct 2015 and development of chronic enterocutaneous fistula, asthma, depression, COPD, severe peripheral vascular disease status post left BKA, multiple hospitalizations and readmissions. The patient was discharged from the [facility] The stitches on the left stump were taken out 2 weeks ago. She reports that the wound has been opening up when she participated with physical therapy. She returned due to wound dehiscence and infection. Patient has since developed an unusual rash and staff Hominis bacteremia -Staph Hominis bacteremia -Perioral, periorbital lesions- ID following, Dr. Greenfield - magic mouthwash, pain control. She has significant skin breakdown, wound care is following. -Patient completed treatment with Valtrex. on IV Vancomycin - pt does have port. started on empiric IV Diflucan 07/26 started on Invanz per infectious disease. Rash: Unusual appearance and presentation, neg for herpes, biopsy inconclusive. Possibly related to zinc deficiency. - Zinc cannot be added to TPN per pharmacy. Ordered oral zinc sulfate replacement. -Enterocutaneous fistula. per surgery, no further surgical intervention. Optimize nutrition with PO and TPN. wound care. -Malnutrition: Diarrhea-likely secondary to short gut syndrome, C diff negative. cont Imodium as needed. - continue to monitor - on TPN for nutritional support -Continue Megace to stimulate appetite. -Infected left BKA stump: Patient status post BKA on 05/02/16. Dr. Sergio kuo. S/P debridement- dry -. Wound cultures growing Klebsiella ESBL positive and Morganella s/p tx with zerbaxa - Dilaudid IV for breakthrough pain. Continue Percocet. - on Methadone - vascular surgery s/p wound vac and removal, wound appears clean. abx per ID. -Fungal rash/groin - cont local antifungal -Hypercoagulable state: History of ischemic bowel and severe peripheral vascular disease. - Continue Xarelto -Anxiety and depression: -more feisty. no outbursts of crying on Seroquel and Zoloft. on Zoloft pt refused cymbalta. start Remeron. palliative care for support, pain control, -COPD: Breathing treatments as needed. Stable. -Severe protein-calorie malnutrition- Patient currently on TPN and being followed by dietitian. Ensure 1 can by mouth 3 times a day. -Skin care. She has excoriated skin over the buttock, abdomen and perineum. Continue anti-fungal cream. Has Hamlin. Discussed with RN to replace rectal tube if/when diarrhea start again. -GERD: Continue PPI Hypokalemia -improved. continue to monitor -Pulmonary nodule. Rpt CT in 6 mos. Patient previously counseled about this finding and the need to follow-up. GI prophylaxis: PPI. DVT PPx: Xarelto Discharge Planning DC pending clinical improvement Problem Qualifiers (1) HTN (hypertension): Qualified Code: I10 - Essential hypertension (2) Diarrhea: Qualified Code: R19.7 - Diarrhea, unspecified type Manolo Holm MD Aug 06, 2016 11:28
[2016-08-06] MEDS: MAGNESIUM OXIDE 400 MG TAB PO SCH ×2 (11:30→21:03)
[2016-08-06 12:01] VITALS: BP 144/77; PULSE 85; RESP 18; TEMP 97.8; O2SAT 94
[2016-08-06 16:12] VITALS: BP 121/67; PULSE 88; RESP 18; TEMP 98.1; O2SAT 90
[2016-08-06] MEDS: ERTAPENEM INJ 1,000 MG in SODIUM CHLORIDE 0.9% INJ 100 ML IV SCH (16:24)
[2016-08-06 20:00] VITALS: BP 145/75; PULSE 80; RESP 17; TEMP 97.6; O2SAT 94
[2016-08-06] MEDS: MIRTAZAPINE ODT 15 MG TAB PO SCH (21:03)
[2016-08-06] MEDS: GABAPENTIN 100 MG CAP PO SCH (21:03)
[2016-08-06] MEDS: FAT EMULSION 20% INJ 250 ML (Twice weekly over 8 hours) IV-CENTRAL SCH (23:03)
[2016-08-07] VITALS: BP 126/71; PULSE 89; RESP 16; TEMP 99; O2SAT 93
[2016-08-07 04:00] VITALS: BP 134/63; PULSE 83; RESP 16; TEMP 99.3; O2SAT 92
[2016-08-07] MEDS: CLOTRIMAZOLE 1% CREAM 15 GM TOPICAL SCH ×3 (05:45→21:39)
[2016-08-07] MEDS: CLINIMIX E 5/25 2000 mL- >42 mls/hr IV-CENTRAL SCH ×6 (05:46→21:41)
[2016-08-07] MEDS: ERYTHROMYCIN 0.5% OPTH OINT 3.5 GM TUBO LEFT EYE SCH ×3 (05:46→21:39)
[2016-08-07] MEDS: ALPRAZolam 0.25 MG TAB PO SCH ×3 (05:46→21:35)
[2016-08-07 08:00] VITALS: BP 123/64; PULSE 83; RESP 16; TEMP 96.8; O2SAT 92
[2016-08-07] MEDS: SODIUM CHLORIDE 0.9% FLUSH 5 ML FLUSH IV FLUSH SCH ×2 (09:00→21:42)
[2016-08-07] MEDS: NYSTATIN 100,000 U/GM PWD 15 GM BTL TOPICAL SCH ×2 (09:00→21:41)
[2016-08-07] MEDS: NYSTAT/DIPHENHY/LIDO MOUTHWASH (Adult) 120ML SWISH-SWAL SCH ×4 (09:00→21:38)
[2016-08-07] MEDS: prednisoLONE ACETATE 1% OPHT SUSP 5 ML BTL LEFT EYE SCH ×2 (09:00→21:39)
[2016-08-07] MEDS: COLLAGENASE OINT 30 GM TUBE TOP SCH (09:00)
[2016-08-07] MEDS: CALCITRIOL 0.25 MCG CAP PO SCH (09:00)
[2016-08-07 09:03] LABS: HEMATOCRIT 30.9 % (35.0-46.0); MEAN CELL VOLUME 95.3 FL (80.0-100.0); MEAN CORPUSCULAR HEMOGLOBIN 32.5 PG (27.0-34.0); MEAN CORPUSCULAR HGB CONC 34.1 % (32.0-36.0); PLATELET COUNT 596 TH/MM3 (150-450); RED BLOOD COUNT 3.25 MIL/MM3 (4.00-5.30); RED CELL DISTRIBUTION WIDTH 17.9 % (11.6-17.2); REVIEW FLAG FINAL; WHITE BLOOD COUNT 8.8 TH/MM3 (4.0-11.0)
[2016-08-07 09:38] LABS: BICARBONATE 28.7 MEQ/L (21.0-32.0); POTASSIUM 3.6 MEQ/L (3.5-5.1)
[2016-08-07] MEDS: CALCIUM/VITAMIN D 250 MG/125 U TAB PO SCH ×2 (10:34→21:34)
[2016-08-07] MEDS: MEGESTROL ACETATE SUSP 400 MG/10 ML CUP PO SCH (10:34)
[2016-08-07] MEDS: DILTIAZEM-CD 120 MG CAP ER PO SCH (10:34)
[2016-08-07] MEDS: LACTOBACILLUS ACIDOPHILUS TAB PO SCH ×3 (10:34→17:34)
[2016-08-07] MEDS: ZINC SULFATE 220 MG CAP PO SCH (10:35)
[2016-08-07] MEDS: PANTOPRAZOLE SOD 20 MG DELAYED RELEASE TAB PO SCH ×2 (10:35→21:35)
[2016-08-07] MEDS: FERROUS SULFATE 325 MG (65 MG ELEMENTAL IRON) TAB PO SCH (10:35)
[2016-08-07] MEDS: RIVAROXABAN 20 MG TAB PO SCH (10:35)
[2016-08-07] MEDS: METHADONE HCL 10 MG TAB PO SCH ×2 (10:37→21:35)
[2016-08-07] MEDS: SERTRALINE HCL 100 MG TAB PO SCH (10:37)
[2016-08-07] MEDS: MAGNESIUM OXIDE 400 MG TAB PO SCH ×2 (10:37→21:35)
[2016-08-07 12:00] VITALS: BP 150/70; PULSE 89; RESP 16; TEMP 98; O2SAT 92
[2016-08-07] MEDS: ERTAPENEM INJ 1,000 MG in SODIUM CHLORIDE 0.9% INJ 100 ML IV SCH (14:00)
[2016-08-07 16:00] VITALS: BP 136/69; PULSE 86; RESP 16; TEMP 96.4; O2SAT 92
--- NOTE | 2016-08-07 16:58 | HHI.PR ---
Subjective Remarks Patient reports that she is feeling okay. Still not eating much. No other changes in clinical status. Objective Vitals Vital Signs Date Time Temp Pulse Resp B/P Pulse Ox O2 Delivery O2 Flow Rate FiO2 08/07/16 12:00 98.0 89 16 150/70 92 08/07/16 08:00 96.8 83 16 123/64 92 08/07/16 07:15 Room Air 08/07/16 04:00 99.3 83 16 134/63 92 08/07/16 00:48 Room Air 08/07/16 00:00 99.0 89 16 126/71 93 08/06/16 22:54 16 08/06/16 20:00 97.6 80 17 145/75 94 I/O 08/06/16 08/06/16 08/06/16 08/07/16 08/07/16 08/07/16 07:00 15:00 23:00 07:00 15:00 23:00 Intake Total 752 ml 120 ml 230 ml 120 ml Output Total 1100 ml 200 ml 300 ml Balance 752 ml -980 ml 30 ml -180 ml Intake Oral 120 ml 230 ml 120 ml TPN/PPN 752 ml Output Urine Total 1100 ml 200 ml 300 ml # Bowel Movements 1 1 1 Result Diagram: 08/07/1682008/07/16820 Objective Remarks GENERAL: Chronically ill-appearing patient. SKIN: Face, periorbital, perioral, upper back area - dry and scaly lesions- continues to crust and drying up. CARDIOVASCULAR: Regular rate and rhythm without murmurs, gallops, or rubs. RESPIRATORY: Clear to auscultation. Breath sounds equal bilaterally. No wheezes , rales, or rhonchi. GASTROINTESTINAL: Abdomen soft, non-tender, nondistended. Multiple draining mid abdomen enterocutaneous fistula. No guarding. MUSCULOSKELETAL: Left BKA wound appeared clean and dry. Very tender to palpation. NEUROLOGICAL: Normal speech. Procedures Left stump debridement by Dr. Hill on 06/15/16 A/P Problem List: (1) Infection of amputation stump ICD Code: T87.40 Status: Resolved (2) 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 (3) Hypercoagulable state ICD Code: D68.59 Status: Chronic (4) HTN (hypertension) ICD Code: I10 Status: Chronic (5) Anxiety about health ICD Code: F41.8 Status: Chronic (6) Diarrhea ICD Code: R19.7 Status: Acute (7) Severe protein-calorie malnutrition ICD Code: E43 Status: Acute (8) Fungal skin infection ICD Code: B36.9 Status: Acute (9) Transient lingual papillitis ICD Code: K14.0 Status: Acute (10) Hospital acquired PNA ICD Code: J18.9 Status: Acute (11) Major depressive disorder, recurrent severe without psychotic features ICD Code: F33.2 Status: Acute (12) Disseminated herpes zoster ICD Code: B02.7 Status: Acute Assessment and Plan The patient is a 70-year-old female with a medical history significant for ischemic bowel with resection in Oct 2015 and development of chronic enterocutaneous fistula, asthma, depression, COPD, severe peripheral vascular disease status post left BKA, multiple hospitalizations and readmissions. The patient was discharged from the hospital on 06/06/16 to a care home facility for rehabilitation. The stitches on the left stump were taken out 2 weeks ago. She reports that the wound has been opening up when she participated with physical therapy. She returned due to wound dehiscence and infection. Patient has since developed an unusual rash and staff Hominis bacteremia -Staph Hominis bacteremia -Perioral, periorbital lesions- ID following, Dr. Greenfield - emilio mouthwash, pain control. She has significant skin breakdown, wound care is following. -Patient completed treatment with Valtrex. on IV Vancomycin - pt does have port. started on empiric IV Diflucan 07/26 started on ertapenem per infectious disease. Rash: Unusual appearance and presentation, neg for herpes, biopsy inconclusive. Possibly related to zinc deficiency. - Zinc cannot be added to TPN per pharmacy. Ordered oral zinc sulfate replacement. -Enterocutaneous fistula. per surgery, no further surgical intervention. Optimize nutrition with PO and TPN. wound care. -Malnutrition: Diarrhea-likely secondary to short gut syndrome, C diff negative. cont Imodium as needed. - continue to monitor - on TPN for nutritional support -Continue Megace to stimulate appetite. -Infected left BKA stump: Patient status post BKA on 05/02/16. Dr. Hill ff. S/P debridement- dry -. Wound cultures growing Klebsiella ESBL positive and Morganella s/p tx with zerbaxa - Dilaudid IV for breakthrough pain. Continue Percocet. - on Methadone - vascular surgery s/p wound vac and removal, wound appears clean. abx per ID. -Fungal rash/groin - cont local antifungal -Hypercoagulable state: History of ischemic bowel and severe peripheral vascular disease. - Continue Xarelto -Anxiety and depression: -more feisty. no outbursts of crying on Seroquel and Zoloft. on Zoloft pt refused cymbalta. start Remeron. palliative care for support, pain control, -COPD: Breathing treatments as needed. Stable. -Severe protein-calorie malnutrition- Patient currently on TPN and being followed by dietitian. Ensure 1 can by mouth 3 times a day. -Skin care. She has excoriated skin over the buttock, abdomen and perineum. Continue anti-fungal cream. Has Hamlin. Discussed with RN to replace rectal tube if/when diarrhea start again. -GERD: Continue PPI Hypokalemia -improved. continue to monitor -Pulmonary nodule. Rpt CT in 6 mos. Patient previously counseled about this finding and the need to follow-up. GI prophylaxis: PPI. DVT PPx: Xarelto Discharge Planning DC pending clinical improvement Problem Qualifiers (1) HTN (hypertension): Qualified Code: I10 - Essential hypertension (2) Diarrhea: Qualified Code: R19.7 - Diarrhea, unspecified type Manolo Holm MD Aug 07, 2016 16:58
[2016-08-07] MEDS: VANCOMYCIN INJ 1,250 MG in SODIUM CHLOR 0.9% 250 ML INJ 250 ML IV SCH (17:33)
[2016-08-07 20:00] VITALS: BP 141/65; PULSE 80; RESP 18; TEMP 96.2; O2SAT 95
[2016-08-07] MEDS: MIRTAZAPINE ODT 15 MG TAB PO SCH (21:34)
[2016-08-07] MEDS: GABAPENTIN 100 MG CAP PO SCH (21:35)
[2016-08-08] VITALS: BP 126/67; PULSE 82; RESP 19; TEMP 98.7; O2SAT 93
[2016-08-08 04:00] VITALS: BP 126/67; PULSE 85; RESP 19; TEMP 96.1; O2SAT 93
[2016-08-08] MEDS: ALPRAZolam 0.25 MG TAB PO SCH ×3 (05:51→21:39)
[2016-08-08] MEDS: CLOTRIMAZOLE 1% CREAM 15 GM TOPICAL SCH ×2 (05:53→14:00)
[2016-08-08] MEDS: ERYTHROMYCIN 0.5% OPTH OINT 3.5 GM TUBO LEFT EYE SCH ×3 (05:53→21:47)
[2016-08-08 08:00] VITALS: BP 123/59; PULSE 89; RESP 20; TEMP 98.5; O2SAT 93
[2016-08-08] MEDS: COLLAGENASE OINT 30 GM TUBE TOP SCH (09:00)
[2016-08-08] MEDS: prednisoLONE ACETATE 1% OPHT SUSP 5 ML BTL LEFT EYE SCH ×2 (09:00→21:00)
[2016-08-08] MEDS: MAGNESIUM OXIDE 400 MG TAB PO SCH ×2 (10:02→21:39)
[2016-08-08] MEDS: PANTOPRAZOLE SOD 20 MG DELAYED RELEASE TAB PO SCH ×2 (10:02→21:39)
[2016-08-08] MEDS: ZINC SULFATE 220 MG CAP PO SCH (10:02)
[2016-08-08] MEDS: METHADONE HCL 10 MG TAB PO SCH ×2 (10:02→21:40)
[2016-08-08] MEDS: FERROUS SULFATE 325 MG (65 MG ELEMENTAL IRON) TAB PO SCH (10:02)
[2016-08-08] MEDS: SERTRALINE HCL 100 MG TAB PO SCH (10:02)
[2016-08-08] MEDS: RIVAROXABAN 20 MG TAB PO SCH (10:03)
[2016-08-08] MEDS: CALCIUM/VITAMIN D 250 MG/125 U TAB PO SCH ×2 (10:03→21:39)
[2016-08-08] MEDS: SODIUM CHLORIDE 0.9% FLUSH 5 ML FLUSH IV FLUSH SCH ×2 (10:03→21:46)
[2016-08-08] MEDS: MEGESTROL ACETATE SUSP 400 MG/10 ML CUP PO SCH (10:03)
[2016-08-08] MEDS: DILTIAZEM-CD 120 MG CAP ER PO SCH (10:03)
[2016-08-08] MEDS: LACTOBACILLUS ACIDOPHILUS TAB PO SCH ×3 (10:03→17:13)
[2016-08-08] MEDS: CALCITRIOL 0.25 MCG CAP PO SCH (10:03)
[2016-08-08] MEDS: NYSTATIN 100,000 U/GM PWD 15 GM BTL TOPICAL SCH ×2 (10:05→21:00)
[2016-08-08] MEDS: NYSTAT/DIPHENHY/LIDO MOUTHWASH (Adult) 120ML SWISH-SWAL SCH ×4 (10:05→21:00)
[2016-08-08] MEDS: VANCOMYCIN INJ 1,250 MG in SODIUM CHLOR 0.9% 250 ML INJ 250 ML IV SCH (11:23)
[2016-08-08 12:00] VITALS: BP 131/63; PULSE 89; RESP 20; TEMP 97.5; O2SAT 93
--- NOTE | 2016-08-08 14:46 | HHI.HCSW ---
Cartography Technician Visit Cognitive Functioning Met with Mrs. Wilson to provide support. She is currently lying in bed, alert, appears somewhat confused during conversation at times but easily redirectable, and pleasant. She is able to make her needs known. Inquired about testing she was supposed to be going for today. Informed community sports coordinator to request nurse to visit and update. Mrs. Wilson also informs me her TV is not working. Also informed community sports coordinator who will have maintenance come to assess. Mrs. Wilson states she her legs are constantly in pain but feels well controlled on current medications. Also confirms pain in her bottom, probably relating to rectal tube placement. She denies any concerns. She verbalizes an improvement in mood and is feeling more positive about things. Offered actively listening and emotional support. . Significant Family/Friend No family/friends at bedside, no interactions today. Mrs. Wilson verbalizes her does come to visit her when he is able. . Follow Up Visit Palliative care will continue to follow throughout hospitalization. SW will follow as needed for emotional and social support. Tierney Salgado, [employer] Aug 08, 2016 14:46
--- NOTE | 2016-08-08 15:02 | HHI.IDPN ---
Subjective Subjective Remarks Notes reviewed Clinically stable, feels better Rash drying up, still itchy Has liquid stool UC with Morganella No new (+) BC Hamlin in place - changed 07/30 07/15, 07/16, 07/20 BC with Staph hominis Echo with possible MV vegetation Antibiotics Vancomycin Valtrex - to finish today 08/04 Diflucan Invanz Lines Port Past Medical History 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 Vital Signs Date Time Temp Pulse Resp B/P Pulse Ox O2 Delivery O2 Flow Rate FiO2 08/08/16 12:00 97.5 89 20 131/63 93 08/08/16 08:20 Room Air 08/08/16 08:00 98.5 89 20 123/59 93 08/08/16 04:00 96.1 85 19 126/67 93 08/08/16 04:00 Room Air 08/08/16 00:00 Room Air 08/08/16 00:00 98.7 82 19 126/67 93 08/07/16 20:00 Room Air 08/07/16 20:00 96.2 80 18 141/65 95 08/07/16 16:00 96.4 86 16 136/69 92 08/07/16 08/07/16 08/08/16 15:00 23:00 07:00 Intake Total 0 ml 280 ml 845 ml Output Total 350 ml 250 ml 175 ml Balance -350 ml 30 ml 670 ml Intake Oral 0 ml 280 ml 80 ml IV Total 765 ml Output Urine Total 350 ml 250 ml 175 ml # Bowel Movements 2 2 . Laboratory Tests Test 08/07/16 08:21 White Blood Count 8.8 TH/MM3 Red Blood Count 3.25 MIL/MM3 Hemoglobin 10.5 GM/DL Hematocrit 30.9 % Mean Corpuscular Volume 95.3 FL Mean Corpuscular Hemoglobin 32.5 PG Mean Corpuscular Hemoglobin 34.1 % Concent Red Cell Distribution Width 17.9 % Platelet Count 596 TH/MM3 Mean Platelet Volume 7.9 FL Laboratory Tests Test 08/07/16 08/08/16 08:21 04:35 Sodium Level 143 MEQ/L Potassium Level 3.6 MEQ/L Chloride Level 109 MEQ/L Carbon Dioxide Level 28.7 MEQ/L Anion Gap 5 MEQ/L Blood Urea Nitrogen 19 MG/DL Creatinine 0.64 MG/DL 0.69 MG/DL Estimat Glomerular Filtration 92 ML/MIN 84 ML/MIN Rate Random Glucose 102 MG/DL Calcium Level 9.1 MG/DL Imaging Liver Ultrasound 07/12/16 0000 Signed Impressions: Service Date/Time: Tuesday, July 12, 2016 18:07 - CONCLUSION: 1. No acute abnormality demonstrated. 2. Heterogeneous liver without measurable mass. 3. Small and heterogeneous spleen without a measurable mass. 4. Cortical thinning and scarring of the right kidney. 5. Previous cholecystectomy. Calixto Woodruff MD Chest CT 07/09/16 0000 Signed Impressions: Service Date/Time: Saturday, July 09, 2016 14:43 - CONCLUSION: 1. Small right pleural effusion and minimal right basilar consolidation. 2. 6 mm left basilar nodule. Followup CT chest 6 months recommended. Florian Pepper MD Chest X-Ray 07/08/16 0000 Signed Impressions: Service Date/Time: Friday, July 08, 2016 16:26 - CONCLUSION: Chronic right lung base opacity unchanged. No new pulmonary opacity. Alexandru Lynch MD Lower Extremity Ultrasound 06/25/16 0000 Signed Impressions: Service Date/Time: Saturday, June 25, 2016 15:56 - CONCLUSION: Negative exam with no evidence of deep venous thrombosis. Soft tissue edema. Mike Leija MD Port Line Insertion 06/20/16 0000 Signed Impressions: Service Date/Time: Monday, June 20, 2016 08:53 - CONCLUSION: Uncomplicated ultrasound and fluoroscopic guided implanted central venous port catheter placement as described in detail above. An 8 [place] Power port was placed. Kevan Salgado Jr., MD Chest X-Ray 06/17/16 0000 Signed Impressions: Service Date/Time: Friday, June 17, 2016 14:12 - CONCLUSION: Right base infiltrate and small effusion. Calixto Woodruff MD Physical Exam GENERAL: awake and alert. NAD SKIN: Warm and dry. Rash on face around eyes, nose lips and chin, red, drying up, less red. Rash in back all coalesced, drying up. Same as in her buttocks and also some in the groin areas. The redness surrounding his abdominal wall fistula is less red, and much improved. Bullous lesions in her fingers are all dry HEENT: [place] conjunctiva. No petechia or hemorrhage. No scleral icterus. Moist oral mucosa. NECK: Supple and not tender, no meningeal signs. No lymphadenopathy. CARDIOVASCULAR: Regular rate and rhythm. No murmur, no rub. RESPIRATORY: Coarse BS tatyana. Port L upper chest looks ok, currently accessed. ABDOMEN: Soft, nondistended. Ouput from her EC fistula is decreased. There is mild tenderness on palpation of the abdomen especially in the midline. No guarding. No rebound. EXTREMITIES: LBKA stump with dry intact dressing. NEUROLOGICAL: Grossly non-focal PSYCH: Calm and cooperative LINE: Port looks ok. Assessment & Plan Remarks IMPRESSION Infection LBKA stump, C/S Klebsiella ESBL+ and Morganella - S/P debridement - S/P Rx Multiple Abx allergy - has tolerated Cephalosporins in the past PVD Previous abdominal OR for ischemic bowel, has fistula - has increased output Cough, better Fevers, etiology? up again Staph hominis sepsis, has MV vegetation Rash on face and back, drying up - biopsy not diagnostic Tremors both hands, ?deconditioning - better RECOMMENDATION Continue Vancomycin for Staph hominis Continue Invanz for the Morganella in UC - plan at least 14 days Monitor progress D/W RN regarding using moisturizing lotion on her face and back to help with dryness Sara Greenfield MD Aug 08, 2016 15:02 Explained plan to the patient D/W RN Sara Greenfield MD Aug 08, 2016 15:02
[2016-08-08] MEDS: ERTAPENEM INJ 1,000 MG in SODIUM CHLORIDE 0.9% INJ 100 ML IV SCH (15:59)
[2016-08-08 16:00] VITALS: BP 131/61; PULSE 80; RESP 20; TEMP 95.5; O2SAT 93
--- NOTE | 2016-08-08 16:12 | HHI.PR ---
Subjective Remarks Patient reports that she is feeling better today. Her mood is better. Still having liquid stools. Objective Vitals Vital Signs Date Time Temp Pulse Resp B/P Pulse Ox O2 Delivery O2 Flow Rate FiO2 08/08/16 12:00 97.5 89 20 131/63 93 08/08/16 08:20 Room Air 08/08/16 08:00 98.5 89 20 123/59 93 08/08/16 04:00 96.1 85 19 126/67 93 08/08/16 04:00 Room Air 08/08/16 00:00 Room Air 08/08/16 00:00 98.7 82 19 126/67 93 08/07/16 20:00 Room Air 08/07/16 20:00 96.2 80 18 141/65 95 I/O 08/07/16 08/07/16 08/07/16 08/08/16 08/08/16 08/08/16 07:00 15:00 23:00 07:00 15:00 23:00 Intake Total 120 ml 0 ml 280 ml 845 ml Output Total 300 ml 350 ml 250 ml 175 ml Balance -180 ml -350 ml 30 ml 670 ml Intake Oral 120 ml 0 ml 280 ml 80 ml IV Total 765 ml Output Urine Total 300 ml 350 ml 250 ml 175 ml # Bowel Movements 1 2 2 Result Diagram: 08/07/1682008/08/16 0435 Objective Remarks GENERAL: Chronically ill-appearing patient. SKIN: Face, periorbital, perioral, upper back area - dry and scaly lesions- continues to crust and drying up. CARDIOVASCULAR: Regular rate and rhythm without murmurs, gallops, or rubs. RESPIRATORY: Clear to auscultation. Breath sounds equal bilaterally. No wheezes , rales, or rhonchi. GASTROINTESTINAL: Abdomen soft, non-tender, nondistended. Multiple draining mid abdomen enterocutaneous fistula. No guarding. MUSCULOSKELETAL: Left BKA wound appeared clean and dry. Very tender to palpation. NEUROLOGICAL: Normal speech. Procedures Left stump debridement by Dr. Hill on 06/15/16 A/P Problem List: (1) Infection of amputation stump ICD Code: T87.40 Status: Resolved (2) 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 (3) Hypercoagulable state ICD Code: D68.59 Status: Chronic (4) HTN (hypertension) ICD Code: I10 Status: Chronic (5) Anxiety about health ICD Code: F41.8 Status: Chronic (6) Diarrhea ICD Code: R19.7 Status: Acute (7) Severe protein-calorie malnutrition ICD Code: E43 Status: Acute (8) Fungal skin infection ICD Code: B36.9 Status: Acute (9) Transient lingual papillitis ICD Code: K14.0 Status: Acute (10) Hospital acquired PNA ICD Code: J18.9 Status: Acute (11) Major depressive disorder, recurrent severe without psychotic features ICD Code: F33.2 Status: Acute (12) Disseminated herpes zoster ICD Code: B02.7 Status: Acute Assessment and Plan The patient is a 70-year-old female with a medical history significant for ischemic bowel with resection in Oct 2015 and development of chronic enterocutaneous fistula, asthma, depression, COPD, severe peripheral vascular disease status post left BKA, multiple hospitalizations and readmissions. The patient was discharged from the hospital on 06/06/16 to a intermediate facility for rehabilitation. The stitches on the left stump were taken out 2 weeks ago. She reports that the wound has been opening up when she participated with physical therapy. She returned due to wound dehiscence and infection. Patient has since developed an unusual rash and staff Hominis bacteremia -Staph Hominis bacteremia -Perioral, periorbital lesions- ID following, Dr. Greenfield - magic mouthwash, pain control. She has significant skin breakdown, wound care is following. -Patient completed treatment with Valtrex. on IV Vancomycin - pt does have port. started on empiric IV Diflucan 07/26 On ertapenem per infectious disease. Rash: Unusual appearance and presentation, neg for herpes, biopsy inconclusive. Possibly related to zinc deficiency. - Zinc could not be added to TPN per pharmacy. Ordered oral zinc sulfate replacement. -Enterocutaneous fistula. per surgery, no further surgical intervention. Optimize nutrition with PO and TPN. wound care. -Malnutrition: Diarrhea-likely secondary to short gut syndrome, C diff negative. cont Imodium as needed. - continue to monitor - on TPN for nutritional support -Continue Megace to stimulate appetite. -Infected left BKA stump: Patient status post BKA on 05/02/16. Dr. Hill ff. S/P debridement- dry -. Wound cultures growing Klebsiella ESBL positive and Morganella s/p tx with zerbaxa - Dilaudid IV for breakthrough pain. Continue Percocet. - on Methadone - vascular surgery s/p wound vac and removal, wound appears clean. abx per ID. -Fungal rash/groin - cont local antifungal -Hypercoagulable state: History of ischemic bowel and severe peripheral vascular disease. - Continue Xarelto -Anxiety and depression: -more feisty. no outbursts of crying on Seroquel and Zoloft. on Zoloft pt refused cymbalta. start Remeron. palliative care for support, pain control, -COPD: Breathing treatments as needed. Stable. -Severe protein-calorie malnutrition- Patient currently on TPN and being followed by dietitian. Ensure 1 can by mouth 3 times a day. -Skin care. She has excoriated skin over the buttock, abdomen and perineum. Continue anti-fungal cream. Has Hamlin. Discussed with RN to replace rectal tube if/when diarrhea start again. -GERD: Continue PPI Hypokalemia -improved. continue to monitor -Pulmonary nodule. Rpt CT in 6 mos. Patient previously counseled about this finding and the need to follow-up. GI prophylaxis: PPI. DVT PPx: Xarelto Discharge Planning DC pending clinical improvement Problem Qualifiers (1) HTN (hypertension): Qualified Code: I10 - Essential hypertension (2) Diarrhea: Qualified Code: R19.7 - Diarrhea, unspecified type Manolo Holm MD Aug 08, 2016 16:12
[2016-08-08] MEDS: HYDROmorphone HCL PF 1 MG/ML VIAL IV PUSH PRN (16:26)
[2016-08-08 20:00] VITALS: BP 144/72; PULSE 82; RESP 18; TEMP 96.9; O2SAT 95
[2016-08-08] MEDS: GABAPENTIN 100 MG CAP PO SCH (21:38)
[2016-08-08] MEDS: MIRTAZAPINE ODT 15 MG TAB PO SCH (21:39)
[2016-08-08] MEDS: CLINIMIX E 5/25 2000 mL- >42 mls/hr IV-CENTRAL SCH ×3 (21:49)
[2016-08-09] VITALS: BP 148/70; PULSE 83; RESP 18; TEMP 98.8; O2SAT 93
[2016-08-09 04:00] VITALS: BP 127/69; PULSE 76; RESP 16; TEMP 98.9; O2SAT 93
[2016-08-09] MEDS: ALPRAZolam 0.25 MG TAB PO SCH ×3 (05:32→21:00)
[2016-08-09] MEDS: VANCOMYCIN INJ 1,250 MG in SODIUM CHLOR 0.9% 250 ML INJ 250 ML IV SCH ×2 (05:33→22:01)
[2016-08-09] MEDS: ERYTHROMYCIN 0.5% OPTH OINT 3.5 GM TUBO LEFT EYE SCH ×3 (05:33→21:04)
[2016-08-09 08:00] VITALS: BP 125/66; PULSE 80; RESP 16; TEMP 99.2; O2SAT 94
[2016-08-09] MEDS: COLLAGENASE OINT 30 GM TUBE TOP SCH (09:00)
[2016-08-09] MEDS: LACTOBACILLUS ACIDOPHILUS TAB PO SCH ×3 (10:09→18:07)
[2016-08-09] MEDS: MAGNESIUM OXIDE 400 MG TAB PO SCH ×2 (10:09→21:01)
[2016-08-09] MEDS: CALCIUM/VITAMIN D 250 MG/125 U TAB PO SCH ×2 (10:09→20:59)
[2016-08-09] MEDS: CALCITRIOL 0.25 MCG CAP PO SCH (10:09)
[2016-08-09] MEDS: SERTRALINE HCL 100 MG TAB PO SCH (10:09)
[2016-08-09] MEDS: DILTIAZEM-CD 120 MG CAP ER PO SCH (10:09)
[2016-08-09] MEDS: FERROUS SULFATE 325 MG (65 MG ELEMENTAL IRON) TAB PO SCH (10:10)
[2016-08-09] MEDS: RIVAROXABAN 20 MG TAB PO SCH (10:10)
[2016-08-09] MEDS: PANTOPRAZOLE SOD 20 MG DELAYED RELEASE TAB PO SCH ×2 (10:10→21:01)
[2016-08-09] MEDS: MEGESTROL ACETATE SUSP 400 MG/10 ML CUP PO SCH (10:10)
[2016-08-09] MEDS: METHADONE HCL 10 MG TAB PO SCH ×2 (10:10→21:02)
[2016-08-09] MEDS: ZINC SULFATE 220 MG CAP PO SCH (10:10)
[2016-08-09] MEDS: NYSTATIN 100,000 U/GM PWD 15 GM BTL TOPICAL SCH ×2 (10:11→21:04)
[2016-08-09] MEDS: SODIUM CHLORIDE 0.9% FLUSH 5 ML FLUSH IV FLUSH SCH ×2 (10:11→21:05)
[2016-08-09] MEDS: NYSTAT/DIPHENHY/LIDO MOUTHWASH (Adult) 120ML SWISH-SWAL SCH ×4 (10:11→21:00)
[2016-08-09] MEDS: prednisoLONE ACETATE 1% OPHT SUSP 5 ML BTL LEFT EYE SCH ×2 (10:11→21:04)
[2016-08-09 12:30] VITALS: BP 128/70; PULSE 111; RESP 18; TEMP 98.7; O2SAT 95
--- NOTE | 2016-08-09 12:40 | HHI.IDPN ---
Subjective Subjective Remarks Notes reviewed Clinically stable Rash drying up Has liquid stool UC with Morganella No new (+) BC 07/15, 07/16, 07/20 BC with Staph hominis Echo with possible MV vegetation Antibiotics Vancomycin Invanz Lines Port Past Medical History 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 Vital Signs Date Time Temp Pulse Resp B/P Pulse Ox O2 Delivery O2 Flow Rate FiO2 08/09/16 08:30 Room Air 08/09/16 08:00 99.2 80 16 125/66 94 08/09/16 04:00 98.9 76 16 127/69 93 08/09/16 00:00 98.8 83 18 148/70 93 08/09/16 00:00 Room Air 08/08/16 20:00 Room Air 08/08/16 20:00 96.9 82 18 144/72 95 08/08/16 16:00 95.5 80 20 131/61 93 08/08/16 08/08/16 08/09/16 15:00 23:00 07:00 Intake Total 607 ml 960 ml 120 ml Output Total 900 ml 350 ml Balance 607 ml 60 ml -230 ml Intake Oral 960 ml 120 ml IV Total 607 ml Output Urine Total 900 ml 350 ml # Bowel Movements 100 100 . Laboratory Tests Test 08/08/16 04:35 Creatinine 0.69 MG/DL Estimat Glomerular Filtration 84 ML/MIN Rate Imaging Liver Ultrasound 07/12/16 0000 Signed Impressions: Service Date/Time: Tuesday, July 12, 2016 18:07 - CONCLUSION: 1. No acute abnormality demonstrated. 2. Heterogeneous liver without measurable mass. 3. Small and heterogeneous spleen without a measurable mass. 4. Cortical thinning and scarring of the right kidney. 5. Previous cholecystectomy. Calixto Woodruff MD Chest CT 07/09/16 0000 Signed Impressions: Service Date/Time: Saturday, July 09, 2016 14:43 - CONCLUSION: 1. Small right pleural effusion and minimal right basilar consolidation. 2. 6 mm left basilar nodule. Followup CT chest 6 months recommended. Florian Pepper MD Chest X-Ray 07/08/16 0000 Signed Impressions: Service Date/Time: Friday, July 08, 2016 16:26 - CONCLUSION: Chronic right lung base opacity unchanged. No new pulmonary opacity. Alexandru Lynch MD Lower Extremity Ultrasound 06/25/16 0000 Signed Impressions: Service Date/Time: Saturday, June 25, 2016 15:56 - CONCLUSION: Negative exam with no evidence of deep venous thrombosis. Soft tissue edema. Mike Leija MD Port Line Insertion 06/20/16 0000 Signed Impressions: Service Date/Time: Monday, June 20, 2016 08:53 - CONCLUSION: Uncomplicated ultrasound and fluoroscopic guided implanted central venous port catheter placement as described in detail above. An 8 [place] Power port was placed. Kevan Salgado Jr., MD Chest X-Ray 06/17/16 0000 Signed Impressions: Service Date/Time: Friday, June 17, 2016 14:12 - CONCLUSION: Right base infiltrate and small effusion. Calixto Woodruff MD Physical Exam GENERAL: awakens easily, NAD SKIN: Warm and dry. Rash on face around eyes, nose lips and chin, red, drying up, not red. Rash in back drying up. Same as in her buttocks and also some in the groin areas. The redness surrounding his abdominal wall fistula is less red, and much improved. Bullous lesions in her fingers are all dry HEENT: [employer] conjunctiva. No petechia or hemorrhage. No scleral icterus. Moist oral mucosa. NECK: Supple and not tender, no meningeal signs. No lymphadenopathy. CARDIOVASCULAR: Regular rate and rhythm. No murmur, no rub. RESPIRATORY: Coarse BS tatyana. Port L upper chest looks ok, currently accessed. ABDOMEN: Soft, nondistended. Ouput from her EC fistula is decreased. There is mild tenderness on palpation of the abdomen especially in the midline. No guarding. No rebound. EXTREMITIES: LBKA stump with dry intact dressing. NEUROLOGICAL: Grossly non-focal PSYCH: Calm and cooperative LINE: Port looks ok. Assessment & Plan Remarks IMPRESSION Infection LBKA stump, C/S Klebsiella ESBL+ and Morganella - S/P debridement - S/P Rx Multiple Abx allergy - has tolerated Cephalosporins in the past PVD Previous abdominal OR for ischemic bowel, has fistula - has increased output Cough, better Fevers, etiology? up again Staph hominis sepsis, has MV vegetation Rash on face and back, drying up - biopsy not diagnostic Tremors both hands, ?deconditioning - better RECOMMENDATION Continue Vancomycin for Staph hominis - give 4 weeks - end date 08/16 Continue Invanz for the Morganella in UC - plan at least 14 days - to finish 08/13 Monitor progress I will be OOT 08/10-08/11, Dr Carrillo available if needed I will be back 08/12 Sara Greenfield MD Aug 09, 2016 12:40
[2016-08-09] MEDS: ERTAPENEM INJ 1,000 MG in SODIUM CHLORIDE 0.9% INJ 100 ML IV SCH (12:53)
--- NOTE | 2016-08-09 15:23 | HHI.PR ---
Subjective Remarks Patient reports that she is feeling better today. She is seen with a lunch tray , starting to eat. Objective Vitals Vital Signs Date Time Temp Pulse Resp B/P Pulse Ox O2 Delivery O2 Flow Rate FiO2 08/09/16 12:30 98.7 111 18 128/70 95 08/09/16 08:30 Room Air 08/09/16 08:00 99.2 80 16 125/66 94 08/09/16 04:00 98.9 76 16 127/69 93 08/09/16 00:00 98.8 83 18 148/70 93 08/09/16 00:00 Room Air 08/08/16 20:00 Room Air 08/08/16 20:00 96.9 82 18 144/72 95 08/08/16 16:00 95.5 80 20 131/61 93 I/O 08/08/16 08/08/16 08/08/16 08/09/16 08/09/16 08/09/16 07:00 15:00 23:00 07:00 15:00 23:00 Intake Total 845 ml 607 ml 960 ml 120 ml 519 ml Output Total 175 ml 900 ml 350 ml Balance 670 ml 607 ml 60 ml -230 ml 519 ml Intake Oral 80 ml 960 ml 120 ml IV Total 765 ml 607 ml 519 ml Output Urine Total 175 ml 900 ml 350 ml # Bowel Movements 2 100 100 Result Diagram: 08/07/1621 08/08/16 0435 Objective Remarks GENERAL: Chronically ill-appearing patient. SKIN: Face, periorbital, perioral, upper back area - dry and scaly lesions- continues to crust and drying up. Bilateral hands with some healing blisters. CARDIOVASCULAR: Regular rate and rhythm without murmurs, gallops, or rubs. RESPIRATORY: Clear to auscultation. Breath sounds equal bilaterally. No wheezes , rales, or rhonchi. GASTROINTESTINAL: Abdomen soft, non-tender, nondistended. Multiple draining mid abdomen enterocutaneous fistula. No guarding. MUSCULOSKELETAL: Left BKA wound appeared clean and dry. Very tender to palpation. NEUROLOGICAL: Normal speech. Procedures Left stump debridement by Dr. Hill on 06/15/16 A/P Problem List: (1) Infection of amputation stump ICD Code: T87.40 Status: Resolved (2) 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 (3) Hypercoagulable state ICD Code: D68.59 Status: Chronic (4) HTN (hypertension) ICD Code: I10 Status: Chronic (5) Anxiety about health ICD Code: F41.8 Status: Chronic (6) Diarrhea ICD Code: R19.7 Status: Acute (7) Severe protein-calorie malnutrition ICD Code: E43 Status: Acute (8) Fungal skin infection ICD Code: B36.9 Status: Acute (9) Transient lingual papillitis ICD Code: K14.0 Status: Acute (10) Hospital acquired PNA ICD Code: J18.9 Status: Acute (11) Major depressive disorder, recurrent severe without psychotic features ICD Code: F33.2 Status: Acute (12) Disseminated herpes zoster ICD Code: B02.7 Status: Acute Assessment and Plan The patient is a 70-year-old female with a medical history significant for ischemic bowel with resection in Oct 2015 and development of chronic enterocutaneous fistula, asthma, depression, COPD, severe peripheral vascular disease status post left BKA, multiple hospitalizations and readmissions. The patient was discharged from the hospital on 06/06/16 to a group home facility for rehabilitation. The stitches on the left stump were taken out 2 weeks ago. She reports that the wound has been opening up when she participated with physical therapy. She returned due to wound dehiscence and infection. Patient has since developed an unusual rash and staff Hominis bacteremia -Staph Hominis bacteremia -Perioral, periorbital lesions- ID following, Dr. Greenfield. Continue Vancomycin for Staph hominis, give 4 weeks , end date 08/16 Continue Invanz for the Morganella in UC - plan at least 14 days - to finish 08/13 -Patient completed treatment with Valtrex. Rash: Unusual appearance and presentation, neg for herpes, biopsy inconclusive. Possibly related to zinc deficiency. - Zinc could not be added to TPN per pharmacy. Ordered oral zinc sulfate replacement. -Enterocutaneous fistula. per surgery, no further surgical intervention. Optimize nutrition with PO and TPN. wound care. -Malnutrition: Diarrhea-likely secondary to short gut syndrome, C diff negative. cont Imodium as needed. - continue to monitor - on TPN for nutritional support -Continue Megace to stimulate appetite. -Infected left BKA stump: Patient status post BKA on 05/02/16. Dr. Sergio kuo. S/P debridement- dry -. Wound cultures growing Klebsiella ESBL positive and Morganella s/p tx with zerbaxa - Dilaudid IV for breakthrough pain. Continue Percocet. - on Methadone - vascular surgery s/p wound vac and removal, wound appears clean. abx per ID. -Fungal rash/groin - cont local antifungal -Hypercoagulable state: History of ischemic bowel and severe peripheral vascular disease. - Continue Xarelto -Anxiety and depression: -more feisty. no outbursts of crying on Seroquel and Zoloft. on Zoloft pt refused cymbalta. start Remeron. palliative care for support, pain control, -COPD: Breathing treatments as needed. Stable. -Severe protein-calorie malnutrition- Patient currently on TPN and being followed by dietitian. Ensure 1 can by mouth 3 times a day. -Skin care. She has excoriated skin over the buttock, abdomen and perineum. Continue anti-fungal cream. Has Hamlin. Discussed with RN to replace rectal tube if/when diarrhea start again. -GERD: Continue PPI Hypokalemia -improved. continue to monitor -Pulmonary nodule. Rpt CT in 6 mos. Patient previously counseled about this finding and the need to follow-up. GI prophylaxis: PPI. DVT PPx: Xarelto Discharge Planning DC pending clinical improvement. See case management note for detail. Multiple barriers to discharge to group home facility. Per vascular surgery , patient needs to remain on TPN. Problem Qualifiers (1) HTN (hypertension): Qualified Code: I10 - Essential hypertension (2) Diarrhea: Qualified Code: R19.7 - Diarrhea, unspecified type Manolo Holm MD Aug 09, 2016 15:23
[2016-08-09 17:47] VITALS: BP 129/67; PULSE 75; RESP 16; TEMP 96.8; O2SAT 94
[2016-08-09 20:00] VITALS: BP 132/68; PULSE 79; RESP 16; TEMP 98.4; O2SAT 96
[2016-08-09] MEDS: MIRTAZAPINE ODT 15 MG TAB PO SCH (21:00)
[2016-08-09] MEDS: GABAPENTIN 100 MG CAP PO SCH (21:00)
[2016-08-09] MEDS: CLINIMIX E 5/25 2000 mL- >42 mls/hr IV-CENTRAL SCH ×3 (21:05)
[2016-08-09] MEDS: FAT EMULSION 20% INJ 250 ML (Twice weekly over 8 hours) IV-CENTRAL SCH (21:05)
[2016-08-09] MEDS: HYDROmorphone HCL PF 1 MG/ML VIAL IV PUSH PRN (21:35)
[2016-08-10] VITALS: BP 123/66; PULSE 76; RESP 16; TEMP 97.3; O2SAT 96
[2016-08-10 04:00] VITALS: BP_SYST 133; BP_SYST 160; BP_DIAS 76; BP_DIAS 82; PULSE 66; PULSE 82; RESP 16; TEMP 97.6; TEMP 97.9; O2SAT 92; O2SAT 95
[2016-08-10] MEDS: ALPRAZolam 0.25 MG TAB PO SCH ×3 (05:32→23:05)
[2016-08-10] MEDS: ERYTHROMYCIN 0.5% OPTH OINT 3.5 GM TUBO LEFT EYE SCH ×3 (05:35→23:05)
[2016-08-10 08:00] VITALS: BP 131/65; PULSE 73; RESP 16; TEMP 97.7; O2SAT 93
[2016-08-10] MEDS: SODIUM CHLORIDE 0.9% FLUSH 5 ML FLUSH IV FLUSH SCH ×2 (09:00→23:06)
[2016-08-10] MEDS: COLLAGENASE OINT 30 GM TUBE TOP SCH (09:00)
[2016-08-10] MEDS: MAGNESIUM OXIDE 400 MG TAB PO SCH ×2 (09:55→23:04)
[2016-08-10] MEDS: CALCITRIOL 0.25 MCG CAP PO SCH (09:55)
[2016-08-10] MEDS: FERROUS SULFATE 325 MG (65 MG ELEMENTAL IRON) TAB PO SCH (09:56)
[2016-08-10] MEDS: MEGESTROL ACETATE SUSP 400 MG/10 ML CUP PO SCH (09:56)
[2016-08-10] MEDS: SERTRALINE HCL 100 MG TAB PO SCH (09:56)
[2016-08-10] MEDS: ZINC SULFATE 220 MG CAP PO SCH (09:56)
[2016-08-10] MEDS: METHADONE HCL 10 MG TAB PO SCH ×2 (09:56→23:04)
[2016-08-10] MEDS: RIVAROXABAN 20 MG TAB PO SCH (09:56)
[2016-08-10] MEDS: CALCIUM/VITAMIN D 250 MG/125 U TAB PO SCH ×2 (09:56→23:02)
[2016-08-10] MEDS: LACTOBACILLUS ACIDOPHILUS TAB PO SCH ×3 (09:56→17:13)
[2016-08-10] MEDS: DILTIAZEM-CD 120 MG CAP ER PO SCH (09:57)
[2016-08-10] MEDS: NYSTATIN 100,000 U/GM PWD 15 GM BTL TOPICAL SCH ×2 (09:57→23:06)
[2016-08-10] MEDS: PANTOPRAZOLE SOD 20 MG DELAYED RELEASE TAB PO SCH ×2 (09:57→23:02)
[2016-08-10] MEDS: prednisoLONE ACETATE 1% OPHT SUSP 5 ML BTL LEFT EYE SCH ×2 (09:58→23:07)
[2016-08-10] MEDS: NYSTAT/DIPHENHY/LIDO MOUTHWASH (Adult) 120ML SWISH-SWAL SCH ×4 (09:59→23:06)
--- NOTE | 2016-08-10 11:03 | HHI.PR ---
Subjective Remarks No concerns at this time. Didn't eat breakfast because she wasn't hungry. No pain, nausea or vomiting Objective Vitals Vital Signs Date Time Temp Pulse Resp B/P Pulse Ox O2 Delivery O2 Flow Rate FiO2 08/10/16 10:04 Room Air 08/10/16 08:00 97.7 73 16 131/65 93 08/10/16 04:00 97.9 82 16 160/82 95 08/10/16 00:00 97.3 76 16 123/66 96 08/09/16 20:00 96 Room Air 08/09/16 20:00 98.4 79 16 132/68 96 08/09/16 17:47 96.8 75 16 129/67 94 08/09/16 16:00 Room Air 08/09/16 12:30 98.7 111 18 128/70 95 08/09/16 12:00 Room Air I/O 08/09/16 08/09/16 08/09/16 08/10/16 08/10/16 08/10/16 07:00 15:00 23:00 07:00 15:00 23:00 Intake Total 120 ml 519 ml 240 ml 1116 ml Output Total 350 ml 402 ml 201 ml Balance -230 ml 519 ml -162 ml 915 ml Intake Oral 120 ml 240 ml 60 ml IV Total 519 ml TPN/PPN 823 ml Lipid 233 ml Output Urine Total 350 ml 400 ml 200 ml Stool Total 2 ml 1 ml # Bowel Movements 100 Result Diagram: 08/07/16 0821 08/10/16 0558 Imaging Last Impressions Liver Ultrasound 07/12/16 0000 Signed Impressions: Service Date/Time: Tuesday, July 12, 2016 18:07 - CONCLUSION: 1. No acute abnormality demonstrated. 2. Heterogeneous liver without measurable mass. 3. Small and heterogeneous spleen without a measurable mass. 4. Cortical thinning and scarring of the right kidney. 5. Previous cholecystectomy. Calixto Woodruff MD Chest CT 07/09/16 0000 Signed Impressions: Service Date/Time: Saturday, July 09, 2016 14:43 - CONCLUSION: 1. Small right pleural effusion and minimal right basilar consolidation. 2. 6 mm left basilar nodule. Followup CT chest 6 months recommended. Florian Pepper MD Chest X-Ray 07/08/16 0000 Signed Impressions: Service Date/Time: Friday, July 08, 2016 16:26 - CONCLUSION: Chronic right lung base opacity unchanged. No new pulmonary opacity. Alexandru Lynch MD Lower Extremity Ultrasound 06/25/16 0000 Signed Impressions: Service Date/Time: Saturday, June 25, 2016 15:56 - CONCLUSION: Negative exam with no evidence of deep venous thrombosis. Soft tissue edema. Mike Leija MD Port Line Insertion 06/20/16 0000 Signed Impressions: Service Date/Time: Monday, June 20, 2016 08:53 - CONCLUSION: Uncomplicated ultrasound and fluoroscopic guided implanted central venous port catheter placement as described in detail above. An 8 [place] Power port was placed. Kevan Salgado Jr., MD Objective Remarks GENERAL: Chronically ill-appearing patient. SKIN: Face, periorbital, perioral, upper back area - dry and scaly lesions- continues to crust and drying up. Bilateral hands with some healing blisters. CARDIOVASCULAR: Regular rate and rhythm without murmurs, gallops, or rubs. RESPIRATORY: Clear to auscultation. Breath sounds equal bilaterally. No wheezes GASTROINTESTINAL: Abdomen soft, non-tender, nondistended. Multiple draining mid abdomen enterocutaneous fistula but dressing in place and it is d/c/i. No guarding. MUSCULOSKELETAL: Left BKA wound appeared clean and dry. Very tender to palpation. NEUROLOGICAL: Normal speech. Procedures Left stump debridement by Dr. Hill on 06/15/16 A/P Problem List: (1) Infection of amputation stump ICD Code: T87.40 Status: Resolved (2) 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 (3) Hypercoagulable state ICD Code: D68.59 Status: Chronic (4) HTN (hypertension) ICD Code: I10 Status: Chronic (5) Anxiety about health ICD Code: F41.8 Status: Chronic (6) Diarrhea ICD Code: R19.7 Status: Acute (7) Severe protein-calorie malnutrition ICD Code: E43 Status: Acute (8) Fungal skin infection ICD Code: B36.9 Status: Acute (9) Transient lingual papillitis ICD Code: K14.0 Status: Acute (10) Hospital acquired PNA ICD Code: J18.9 Status: Acute (11) Major depressive disorder, recurrent severe without psychotic features ICD Code: F33.2 Status: Acute (12) Disseminated herpes zoster ICD Code: B02.7 Status: Acute Assessment and Plan The patient is a 70-year-old female with a medical history significant for ischemic bowel with resection in Oct 2015 and development of chronic enterocutaneous fistula, asthma, depression, COPD, severe peripheral vascular disease status post left BKA, multiple hospitalizations and readmissions. The patient was discharged from the hospital on 06/06/16 to a care home facility for rehabilitation. The stitches on the left stump were taken out 2 weeks ago. She reports that the wound has been opening up when she participated with physical therapy. She returned due to wound dehiscence and infection. Patient has since developed an unusual rash and staff Hominis bacteremia -Staph Hominis bacteremia -Perioral, periorbital lesions- ID following, Dr. Greenfield. Continue Vancomycin for Staph hominis, give 4 weeks , end date 08/16 Continue Invanz for the Morganella in UC - plan at least 14 days - to finish 08/13 -Patient completed treatment with Valtrex. Rash: Unusual appearance and presentation, neg for herpes, biopsy inconclusive. Possibly related to zinc deficiency. - Zinc could not be added to TPN per pharmacy. on oral zinc sulfate replacement. -Enterocutaneous fistula. per surgery, no further surgical intervention. Optimize nutrition with PO and TPN. wound care. -Malnutrition: Diarrhea-likely secondary to short gut syndrome, C diff negative. cont Imodium as needed. - continue to monitor - on TPN for nutritional support -Continue Megace to stimulate appetite. -Infected left BKA stump: Patient status post BKA on 05/02/16. Dr. Sergio kuo. S/P debridement- dry -. Wound cultures growing Klebsiella ESBL positive and Morganella s/p tx with zerbaxa - Dilaudid IV for breakthrough pain. Continue Percocet. - on Methadone 5mg po q12, decrease to 2.5 mg and continue to wean - vascular surgery s/p wound vac and removal, wound appears clean. abx per ID. -Fungal rash/groin - cont local antifungal -Hypercoagulable state: History of ischemic bowel and severe peripheral vascular disease. - Continue Xarelto -Anxiety and depression: -more feisty. no outbursts of crying on Seroquel and Zoloft. on Zoloft pt refused cymbalta. start Remeron. palliative care for support, pain control, -COPD: Breathing treatments as needed. Stable. -Severe protein-calorie malnutrition- Patient currently on TPN and being followed by dietitian. Ensure 1 can by mouth 3 times a day. -Skin care. She has excoriated skin over the buttock, abdomen and perineum. Continue anti-fungal cream. Has Hamlin. Discussed with RN to replace rectal tube if/when diarrhea start again. -GERD: Continue PPI Hypokalemia -improved. continue to monitor -Pulmonary nodule. Rpt CT in 6 mos. Patient previously counseled about this finding and the need to follow-up. GI prophylaxis: PPI. DVT PPx: Xarelto Discharge Planning DC pending clinical improvement. See case management note for detail. Multiple barriers to discharge to care home facility. Per vascular surgery , patient needs to remain on TPN. Discharge Planning DC pending clinical improvement. See case management note for detail. Multiple barriers to discharge to care home facility. Per vascular surgery, patient needs to remain on TPN. Problem Qualifiers (1) HTN (hypertension): Qualified Code: I10 - Essential hypertension (2) Diarrhea: Qualified Code: R19.7 - Diarrhea, unspecified type Chandrika Dey MD Aug 10, 2016 11:03
[2016-08-10 12:00] VITALS: BP 131/65; PULSE 75; RESP 18; TEMP 98.5; O2SAT 95
[2016-08-10] MEDS: ERTAPENEM INJ 1,000 MG in SODIUM CHLORIDE 0.9% INJ 100 ML IV SCH (13:30)
[2016-08-10 16:00] VITALS: BP 141/74; PULSE 68; RESP 16; TEMP 96.9; O2SAT 95
[2016-08-10] MEDS: VANCOMYCIN INJ 1,250 MG in SODIUM CHLOR 0.9% 250 ML INJ 250 ML IV SCH (17:14)
[2016-08-10 20:00] VITALS: BP 128/74; PULSE 94; RESP 18; TEMP 98.9; O2SAT 99
[2016-08-10] MEDS: CLINIMIX E 5/25 2000 mL- >42 mls/hr IV-CENTRAL SCH ×3 (23:01)
[2016-08-10] MEDS: GABAPENTIN 100 MG CAP PO SCH (23:04)
[2016-08-10] MEDS: MIRTAZAPINE ODT 15 MG TAB PO SCH (23:05)
[2016-08-11] VITALS (7 sets, daily range): BP systolic 121–154; BP diastolic 65–76; PULSE 64–84; RESP 16–20; TEMP 97.4–99.4; O2SAT 93–95
[2016-08-11] MEDS: ERYTHROMYCIN 0.5% OPTH OINT 3.5 GM TUBO LEFT EYE SCH ×3 (06:16→23:20)
[2016-08-11] MEDS: ALPRAZolam 0.25 MG TAB PO SCH ×3 (06:16→23:17)
[2016-08-11] MEDS: COLLAGENASE OINT 30 GM TUBE TOP SCH (09:00)
[2016-08-11] MEDS: SODIUM CHLORIDE 0.9% FLUSH 5 ML FLUSH IV FLUSH SCH ×2 (09:00→23:16)
[2016-08-11] MEDS: LACTOBACILLUS ACIDOPHILUS TAB PO SCH ×3 (09:21→17:48)
[2016-08-11] MEDS: SERTRALINE HCL 100 MG TAB PO SCH (09:22)
[2016-08-11] MEDS: CALCIUM/VITAMIN D 250 MG/125 U TAB PO SCH ×2 (09:22→23:19)
[2016-08-11] MEDS: MAGNESIUM OXIDE 400 MG TAB PO SCH ×2 (09:22→23:19)
[2016-08-11] MEDS: PANTOPRAZOLE SOD 20 MG DELAYED RELEASE TAB PO SCH ×2 (09:22→23:18)
[2016-08-11] MEDS: ZINC SULFATE 220 MG CAP PO SCH (09:22)
[2016-08-11] MEDS: RIVAROXABAN 20 MG TAB PO SCH (09:22)
[2016-08-11] MEDS: MEGESTROL ACETATE SUSP 400 MG/10 ML CUP PO SCH (09:22)
[2016-08-11] MEDS: CALCITRIOL 0.25 MCG CAP PO SCH (09:22)
[2016-08-11] MEDS: FERROUS SULFATE 325 MG (65 MG ELEMENTAL IRON) TAB PO SCH (09:22)
[2016-08-11] MEDS: DILTIAZEM-CD 120 MG CAP ER PO SCH (09:23)
[2016-08-11] MEDS: METHADONE HCL 10 MG TAB PO SCH ×2 (09:23→21:00)
[2016-08-11] MEDS: prednisoLONE ACETATE 1% OPHT SUSP 5 ML BTL LEFT EYE SCH ×2 (09:26→23:20)
[2016-08-11] MEDS: NYSTAT/DIPHENHY/LIDO MOUTHWASH (Adult) 120ML SWISH-SWAL SCH ×4 (09:27→23:16)
[2016-08-11] MEDS: NYSTATIN 100,000 U/GM PWD 15 GM BTL TOPICAL SCH ×2 (09:27→23:20)
[2016-08-11] MEDS: VANCOMYCIN INJ 1,250 MG in SODIUM CHLOR 0.9% 250 ML INJ 250 ML IV SCH (10:58)
[2016-08-11] MEDS: ACETAMINOPHEN/HYDROcodone 325 MG/10 MG TAB PO PRN (11:08)
--- NOTE | 2016-08-11 11:22 | HHI.PR ---
Subjective Remarks Pt having some pain a the stump and is waiting on her pain med. RN at bedside about to give it to her. Otherwise she has no complaints. no CP/SOB/N/V Objective Vitals Vital Signs Date Time Temp Pulse Resp B/P Pulse Ox O2 Delivery O2 Flow Rate FiO2 08/11/16 11:10 98.3 66 20 130/76 94 08/11/16 09:32 Room Air 08/11/16 08:00 97.5 67 18 141/73 95 08/11/16 04:00 99.4 66 16 139/69 93 08/11/16 00:00 97.4 77 16 154/69 94 08/10/16 20:30 Room Air 08/10/16 20:00 98.9 94 18 128/74 99 08/10/16 16:00 96.9 68 16 141/74 95 08/10/16 12:00 98.5 75 18 131/65 95 I/O 08/10/16 08/10/16 08/10/16 08/11/16 08/11/16 08/11/16 06:59 14:59 22:59 06:59 14:59 22:59 Intake Total 1116 ml 540 ml 588 ml Output Total 201 ml 600 ml 300 ml Balance 915 ml -60 ml 288 ml Intake Oral 60 ml 540 ml 120 ml TPN/PPN 823 ml 468 ml Lipid 233 ml Output Urine Total 200 ml 600 ml 300 ml Stool Total 1 ml # Bowel Movements 3 3 Result Diagram: 08/07/16 0821 08/10/16 0558 Imaging Last Impressions Liver Ultrasound 07/12/16 0000 Signed Impressions: Service Date/Time: Tuesday, July 12, 2016 18:07 - CONCLUSION: 1. No acute abnormality demonstrated. 2. Heterogeneous liver without measurable mass. 3. Small and heterogeneous spleen without a measurable mass. 4. Cortical thinning and scarring of the right kidney. 5. Previous cholecystectomy. Calixto Woodruff MD Chest CT 07/09/16 0000 Signed Impressions: Service Date/Time: Saturday, July 09, 2016 14:43 - CONCLUSION: 1. Small right pleural effusion and minimal right basilar consolidation. 2. 6 mm left basilar nodule. Followup CT chest 6 months recommended. Florian Pepper MD Chest X-Ray 07/08/16 0000 Signed Impressions: Service Date/Time: Friday, July 08, 2016 16:26 - CONCLUSION: Chronic right lung base opacity unchanged. No new pulmonary opacity. Alexandru Lynch MD Lower Extremity Ultrasound 06/25/16 0000 Signed Impressions: Service Date/Time: Saturday, June 25, 2016 15:56 - CONCLUSION: Negative exam with no evidence of deep venous thrombosis. Soft tissue edema. Mike Leija MD Port Line Insertion 06/20/16 0000 Signed Impressions: Service Date/Time: Monday, June 20, 2016 08:53 - CONCLUSION: Uncomplicated ultrasound and fluoroscopic guided implanted central venous port catheter placement as described in detail above. An 8 [place] Power port was placed. Kevan Salgado Jr., MD Objective Remarks GENERAL: Chronically ill-appearing patient. CARDIOVASCULAR: Regular rate and rhythm without murmur RESPIRATORY: Clear to auscultation. Breath sounds equal bilaterally. No wheezes GASTROINTESTINAL: Abdomen soft, non-tender, nondistended. Multiple draining mid abdomen enterocutaneous fistula but dressing in place and it is d/c/i. No guarding. MUSCULOSKELETAL: Left BKA wound appeared clean and dry. no signs of infection NEUROLOGICAL: Normal speech. Procedures Left stump debridement by Dr. Hill on 06/15/16 A/P Problem List: (1) Infection of amputation stump ICD Code: T87.40 Status: Resolved (2) 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 (3) Hypercoagulable state ICD Code: D68.59 Status: Chronic (4) HTN (hypertension) ICD Code: I10 Status: Chronic (5) Anxiety about health ICD Code: F41.8 Status: Chronic (6) Diarrhea ICD Code: R19.7 Status: Acute (7) Severe protein-calorie malnutrition ICD Code: E43 Status: Acute (8) Fungal skin infection ICD Code: B36.9 Status: Acute (9) Transient lingual papillitis ICD Code: K14.0 Status: Acute (10) Hospital acquired PNA ICD Code: J18.9 Status: Acute (11) Major depressive disorder, recurrent severe without psychotic features ICD Code: F33.2 Status: Acute (12) Disseminated herpes zoster ICD Code: B02.7 Status: Acute Assessment and Plan The patient is a 70-year-old female with a medical history significant for ischemic bowel with resection in Oct 2015 and development of chronic enterocutaneous fistula, asthma, depression, COPD, severe peripheral vascular disease status post left BKA, multiple hospitalizations and readmissions. The patient was discharged from the hospital on 06/06/16 to a senior living facility for rehabilitation. The stitches on the left stump were taken out 2 weeks ago. She reports that the wound has been opening up when she participated with physical therapy. She returned due to wound dehiscence and infection. Patient has since developed an unusual rash and staff Hominis bacteremia -Staph Hominis bacteremia -Perioral, periorbital lesions- ID following, Dr. Greenfield. Continue Vancomycin for Staph hominis, give 4 weeks , end date 08/16 Continue Invanz for the Morganella in UC - plan at least 14 days - to finish 08/13 -Patient completed treatment with Valtrex. Rash: Unusual appearance and presentation, neg for herpes, biopsy inconclusive. Possibly related to zinc deficiency. - Zinc could not be added to TPN per pharmacy. on oral zinc sulfate replacement. -Enterocutaneous fistula. per surgery, no further surgical intervention. Optimize nutrition with PO and TPN. wound care. -Malnutrition: Diarrhea-likely secondary to short gut syndrome, C diff negative. cont Imodium as needed. - continue to monitor - on TPN for nutritional support -Continue Megace to stimulate appetite. -Infected left BKA stump: Patient status post BKA on 05/02/16. Dr. Sergio kuo. S/P debridement- dry -. Wound cultures growing Klebsiella ESBL positive and Morganella s/p tx with zerbaxa - Dilaudid IV for breakthrough pain. Continue Percocet. - on Methadone 5mg po q12, decrease to 2.5 mg and continue to wean - vascular surgery s/p wound vac and removal, wound appears clean. abx per ID. -Fungal rash/groin - cont local antifungal -Hypercoagulable state: History of ischemic bowel and severe peripheral vascular disease. - Continue Xarelto -Anxiety and depression: -more feisty. no outbursts of crying on Seroquel and Zoloft. on Zoloft pt refused cymbalta. start Remeron. palliative care for support, pain control, -COPD: Breathing treatments as needed. Stable. -Severe protein-calorie malnutrition- Patient currently on TPN and being followed by dietitian. Ensure 1 can by mouth 3 times a day. -Skin care. She has excoriated skin over the buttock, abdomen and perineum. Continue anti-fungal cream. Has Hamlin. Discussed with RN to replace rectal tube if/when diarrhea start again. -GERD: Continue PPI Hypokalemia -improved. continue to monitor -Pulmonary nodule. Rpt CT in 6 mos. Patient previously counseled about this finding and the need to follow-up. GI prophylaxis: PPI. DVT PPx: Xarelto Discharge Planning DC pending clinical improvement. See case management note for detail. Multiple barriers to discharge to senior living facility. Per vascular surgery, patient needs to remain on TPN. Problem Qualifiers (1) HTN (hypertension): Qualified Code: I10 - Essential hypertension (2) Diarrhea: Qualified Code: R19.7 - Diarrhea, unspecified type Chandrika Dey MD Aug 11, 2016 11:22
[2016-08-11] MEDS: ERTAPENEM INJ 1,000 MG in SODIUM CHLORIDE 0.9% INJ 100 ML IV SCH (13:06)
[2016-08-11] MEDS: CLINIMIX E 5/25 2000 mL- >42 mls/hr IV-CENTRAL SCH ×3 (23:16)
[2016-08-11] MEDS: GABAPENTIN 100 MG CAP PO SCH (23:18)
[2016-08-11] MEDS: MIRTAZAPINE ODT 15 MG TAB PO SCH (23:18)
[2016-08-12] VITALS: BP 147/72; PULSE 74; RESP 20; TEMP 98.4; O2SAT 96
[2016-08-12 04:00] VITALS: BP 150/73; PULSE 82; RESP 20; TEMP 98.8; O2SAT 93
[2016-08-12] MEDS: ALPRAZolam 0.25 MG TAB PO SCH ×3 (05:57→20:41)
[2016-08-12] MEDS: VANCOMYCIN INJ 1,250 MG in SODIUM CHLOR 0.9% 250 ML INJ 250 ML IV SCH (05:57)
[2016-08-12] MEDS: ERYTHROMYCIN 0.5% OPTH OINT 3.5 GM TUBO LEFT EYE SCH ×3 (05:58→20:42)
[2016-08-12 08:00] VITALS: BP 157/69; PULSE 72; RESP 18; TEMP 96; O2SAT 94
[2016-08-12] MEDS: COLLAGENASE OINT 30 GM TUBE TOP SCH (09:00)
[2016-08-12] MEDS: LACTOBACILLUS ACIDOPHILUS TAB PO SCH ×4 (09:00→18:36)
[2016-08-12] MEDS: SODIUM CHLORIDE 0.9% FLUSH 5 ML FLUSH IV FLUSH SCH ×2 (09:22→20:43)
[2016-08-12] MEDS: MEGESTROL ACETATE SUSP 400 MG/10 ML CUP PO SCH (09:23)
[2016-08-12] MEDS: SERTRALINE HCL 100 MG TAB PO SCH (09:24)
[2016-08-12] MEDS: PANTOPRAZOLE SOD 20 MG DELAYED RELEASE TAB PO SCH ×2 (09:25→20:41)
[2016-08-12] MEDS: DILTIAZEM-CD 120 MG CAP ER PO SCH (09:25)
[2016-08-12] MEDS: RIVAROXABAN 20 MG TAB PO SCH (09:25)
[2016-08-12] MEDS: CALCITRIOL 0.25 MCG CAP PO SCH (09:26)
[2016-08-12] MEDS: ZINC SULFATE 220 MG CAP PO SCH (09:26)
[2016-08-12] MEDS: MAGNESIUM OXIDE 400 MG TAB PO SCH ×2 (09:26→20:41)
[2016-08-12] MEDS: FERROUS SULFATE 325 MG (65 MG ELEMENTAL IRON) TAB PO SCH (09:28)
[2016-08-12] MEDS: CALCIUM/VITAMIN D 250 MG/125 U TAB PO SCH ×2 (09:28→20:41)
[2016-08-12] MEDS: METHADONE HCL 10 MG TAB PO SCH ×3 (09:29→20:42)
[2016-08-12] MEDS: NYSTAT/DIPHENHY/LIDO MOUTHWASH (Adult) 120ML SWISH-SWAL SCH ×4 (09:33→21:00)
[2016-08-12] MEDS: NYSTATIN 100,000 U/GM PWD 15 GM BTL TOPICAL SCH ×2 (09:40→20:43)
[2016-08-12] MEDS: prednisoLONE ACETATE 1% OPHT SUSP 5 ML BTL LEFT EYE SCH ×2 (09:40→20:43)
--- NOTE | 2016-08-12 11:19 | HHI.PR ---
Subjective Remarks Pain controlled. had some nausea mid breakfast but no vomiting. no chest pain, SOB Objective Vitals Vital Signs Date Time Temp Pulse Resp B/P Pulse Ox O2 Delivery O2 Flow Rate FiO2 08/12/16 08:00 96.0 72 18 157/69 94 08/12/16 04:00 98.8 82 20 150/73 93 08/12/16 00:00 98.4 74 20 147/72 96 08/11/16 20:00 97.7 84 16 144/65 93 08/11/16 20:00 Room Air 08/11/16 16:00 97.4 64 18 121/72 95 08/11/16 12:00 98.3 66 20 130/76 94 I/O 08/11/16 08/11/16 08/11/16 08/12/16 08/12/16 08/12/16 07:00 15:00 23:00 07:00 15:00 23:00 Intake Total 1567 ml 240 ml 360 ml Output Total 1075 ml 240 ml 500 ml Balance 492 ml 0 ml -140 ml Intake Oral 240 ml 240 ml 360 ml TPN/PPN 1327 ml Output Urine Total 1075 ml 240 ml 500 ml # Bowel Movements 2 1 0 Result Diagram: 08/12/16 0820 Imaging Last Impressions Liver Ultrasound 07/12/16 0000 Signed Impressions: Service Date/Time: Tuesday, July 12, 2016 18:07 - CONCLUSION: 1. No acute abnormality demonstrated. 2. Heterogeneous liver without measurable mass. 3. Small and heterogeneous spleen without a measurable mass. 4. Cortical thinning and scarring of the right kidney. 5. Previous cholecystectomy. Calixto Woodruff MD Chest CT 07/09/16 0000 Signed Impressions: Service Date/Time: Saturday, July 09, 2016 14:43 - CONCLUSION: 1. Small right pleural effusion and minimal right basilar consolidation. 2. 6 mm left basilar nodule. Followup CT chest 6 months recommended. Florian Pepper MD Chest X-Ray 07/08/16 0000 Signed Impressions: Service Date/Time: Friday, July 08, 2016 16:26 - CONCLUSION: Chronic right lung base opacity unchanged. No new pulmonary opacity. Alexandru Lynch MD Lower Extremity Ultrasound 06/25/16 0000 Signed Impressions: Service Date/Time: Saturday, June 25, 2016 15:56 - CONCLUSION: Negative exam with no evidence of deep venous thrombosis. Soft tissue edema. Mike Leija MD Port Line Insertion 06/20/16 0000 Signed Impressions: Service Date/Time: Monday, June 20, 2016 08:53 - CONCLUSION: Uncomplicated ultrasound and fluoroscopic guided implanted central venous port catheter placement as described in detail above. An 8 [place] Power port was placed. Kevan Salgado Jr., MD Objective Remarks GENERAL: Chronically ill-appearing patient. CARDIOVASCULAR: Regular rate and rhythm without murmur RESPIRATORY: Clear to auscultation. Breath sounds equal bilaterally. No wheezes GASTROINTESTINAL: Abdomen soft, non-tender, nondistended. Multiple draining mid abdomen enterocutaneous fistula but dressing in place and it is d/c/i. No guarding. MUSCULOSKELETAL: Left BKA wound appeared clean and dry. no signs of infection NEUROLOGICAL: Normal speech. Procedures Left stump debridement by Dr. Hill on 06/15/16 A/P Problem List: (1) Infection of amputation stump ICD Code: T87.40 Status: Resolved (2) 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 (3) Hypercoagulable state ICD Code: D68.59 Status: Chronic (4) HTN (hypertension) ICD Code: I10 Status: Chronic (5) Anxiety about health ICD Code: F41.8 Status: Chronic (6) Diarrhea ICD Code: R19.7 Status: Acute (7) Severe protein-calorie malnutrition ICD Code: E43 Status: Acute (8) Fungal skin infection ICD Code: B36.9 Status: Acute (9) Transient lingual papillitis ICD Code: K14.0 Status: Acute (10) Hospital acquired PNA ICD Code: J18.9 Status: Acute (11) Major depressive disorder, recurrent severe without psychotic features ICD Code: F33.2 Status: Acute (12) Disseminated herpes zoster ICD Code: B02.7 Status: Acute Assessment and Plan The patient is a 70-year-old female with a medical history significant for ischemic bowel with resection in Oct 2015 and development of chronic enterocutaneous fistula, asthma, depression, COPD, severe peripheral vascular disease status post left BKA, multiple hospitalizations and readmissions. The patient was [facility] The stitches on the left stump were taken out 2 weeks ago. She reports that the wound has been opening up when she participated with physical therapy. She returned due to wound dehiscence and infection. Patient has since developed an unusual rash and staff Hominis bacteremia -Staph Hominis bacteremia -Perioral, periorbital lesions- ID following, Dr. Greenfield. Continue Vancomycin for Staph hominis, give 4 weeks , end date 08/16 Continue Invanz for the Morganella in UC - plan at least 14 days - to finish 08/13 -Patient completed treatment with Valtrex. Rash: Unusual appearance and presentation, neg for herpes, biopsy inconclusive. Possibly related to zinc deficiency. - Zinc could not be added to TPN per pharmacy. on oral zinc sulfate replacement. -Enterocutaneous fistula. per surgery, no further surgical intervention. Optimize nutrition with PO and TPN. wound care. -Malnutrition: Diarrhea-likely secondary to short gut syndrome, C diff negative. cont Imodium as needed. - continue to monitor - on TPN for nutritional support -Continue Megace to stimulate appetite. -Infected left BKA stump: Patient status post BKA on 05/02/16. Dr. Sergio kuo. S/P debridement- dry -. Wound cultures growing Klebsiella ESBL positive and Morganella s/p tx with zerbaxa - Dilaudid IV for breakthrough pain. Continue Percocet. - on Methadone 5mg po q12, decrease to 2.5 mg and continue to wean - vascular surgery s/p wound vac and removal, wound appears clean. abx per ID. -Fungal rash/groin - cont local antifungal -Hypercoagulable state: History of ischemic bowel and severe peripheral vascular disease. - Continue Xarelto -Anxiety and depression: -more feisty. no outbursts of crying on Seroquel and Zoloft. on Zoloft pt refused cymbalta. start Remeron. palliative care for support, pain control, -COPD: Breathing treatments as needed. Stable. -Severe protein-calorie malnutrition- Patient currently on TPN and being followed by dietitian. Ensure 1 can by mouth 3 times a day. -Skin care. She has excoriated skin over the buttock, abdomen and perineum. Continue anti-fungal cream. Has Hamlin. Discussed with RN to replace rectal tube if/when diarrhea start again. -GERD: Continue PPI Hypokalemia -improved. continue to monitor -Pulmonary nodule. Rpt CT in 6 mos. Patient previously counseled about this finding and the need to follow-up. GI prophylaxis: PPI. DVT PPx: Xarelto Discharge Planning DC pending clinical improvement. See case management note for detail. Multiple barriers [facility] to [facility]. Per vascular surgery, patient needs to remain on TPN. Problem Qualifiers (1) HTN (hypertension): Qualified Code: I10 - Essential hypertension (2) Diarrhea: Qualified Code: R19.7 - Diarrhea, unspecified type Chandrika Dey MD Aug 12, 2016 11:19
[2016-08-12 12:00] VITALS: BP 137/65; PULSE 82; RESP 18; TEMP 97.7; O2SAT 94
[2016-08-12] MEDS: ERTAPENEM INJ 1,000 MG in SODIUM CHLORIDE 0.9% INJ 100 ML IV SCH (13:47)
--- NOTE | 2016-08-12 14:44 | HHI.IDPN ---
Subjective Subjective Remarks Notes reviewed Clinically stable Rash drying up Temps ok 07/15, 07/16, 07/20 BC with Staph hominis Echo with possible MV vegetation Antibiotics Vancomycin - to finish 08/16 (28 days Rx) Invanz - to finish 08/13 Lines Port Past Medical History 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 Vital Signs Date Time Temp Pulse Resp B/P Pulse Ox O2 Delivery O2 Flow Rate FiO2 08/12/16 12:00 97.7 82 18 137/65 94 08/12/16 08:00 96.0 72 18 157/69 94 08/12/16 08:00 Room Air 08/12/16 04:00 98.8 82 20 150/73 93 08/12/16 00:00 98.4 74 20 147/72 96 08/11/16 20:00 97.7 84 16 144/65 93 08/11/16 20:00 Room Air 08/11/16 16:00 97.4 64 18 121/72 95 08/11/16 08/11/16 08/12/16 15:00 23:00 07:00 Intake Total 1567 ml 240 ml 360 ml Output Total 1075 ml 240 ml 500 ml Balance 492 ml 0 ml -140 ml Intake Oral 240 ml 240 ml 360 ml TPN/PPN 1327 ml Output Urine Total 1075 ml 240 ml 500 ml # Bowel Movements 2 1 0 . Laboratory Tests Test 08/12/16 08:20 Creatinine 0.66 MG/DL Estimat Glomerular Filtration 89 ML/MIN Rate Imaging Liver Ultrasound 07/12/16 0000 Signed Impressions: Service Date/Time: Tuesday, July 12, 2016 18:07 - CONCLUSION: 1. No acute abnormality demonstrated. 2. Heterogeneous liver without measurable mass. 3. Small and heterogeneous spleen without a measurable mass. 4. Cortical thinning and scarring of the right kidney. 5. Previous cholecystectomy. Calixto Woodruff MD Chest CT 07/09/16 0000 Signed Impressions: Service Date/Time: Saturday, July 09, 2016 14:43 - CONCLUSION: 1. Small right pleural effusion and minimal right basilar consolidation. 2. 6 mm left basilar nodule. Followup CT chest 6 months recommended. Florian Pepper MD Chest X-Ray 07/08/16 0000 Signed Impressions: Service Date/Time: Friday, July 08, 2016 16:26 - CONCLUSION: Chronic right lung base opacity unchanged. No new pulmonary opacity. Alexandru Lynch MD Lower Extremity Ultrasound 06/25/16 0000 Signed Impressions: Service Date/Time: Saturday, June 25, 2016 15:56 - CONCLUSION: Negative exam with no evidence of deep venous thrombosis. Soft tissue edema. Mike Leija MD Port Line Insertion 06/20/16 0000 Signed Impressions: Service Date/Time: Monday, June 20, 2016 08:53 - CONCLUSION: Uncomplicated ultrasound and fluoroscopic guided implanted central venous port catheter placement as described in detail above. An 8 [place] Power port was placed. Kevan Salgado Jr., MD Chest X-Ray 06/17/16 0000 Signed Impressions: Service Date/Time: Friday, June 17, 2016 14:12 - CONCLUSION: Right base infiltrate and small effusion. Calixto Woodruff MD Physical Exam GENERAL: awakens easily, NAD SKIN: Warm and dry. Rash drying up, better HEENT: [place] conjunctiva. No petechia or hemorrhage. No scleral icterus. Moist oral mucosa. NECK: Supple and not tender, no meningeal signs. No lymphadenopathy. CARDIOVASCULAR: Regular rate and rhythm. No murmur, no rub. RESPIRATORY: Coarse BS tatyana. Port L upper chest looks ok, currently accessed. ABDOMEN: Soft, nondistended. EC fistula with dressing. There is mild tenderness on palpation of the abdomen especially in the midline. No guarding. No rebound. EXTREMITIES: LBKA stump with dry intact dressing. NEUROLOGICAL: Grossly non-focal PSYCH: Calm and cooperative LINE: Port looks ok. Assessment & Plan Remarks IMPRESSION Infection LBKA stump, C/S Klebsiella ESBL+ and Morganella - S/P debridement - S/P Rx Multiple Abx allergy - has tolerated Cephalosporins in the past PVD Previous abdominal OR for ischemic bowel, has fistula - has increased output Cough, better Fevers, etiology? up again Staph hominis sepsis, has MV vegetation Rash on face and back, drying up - biopsy not diagnostic Tremors both hands, ?deconditioning - better RECOMMENDATION Continue Vancomycin for Staph hominis - give 4 weeks - end date 08/16 Continue Invanz for the Morganella in UC - plan at least 14 days - to finish 08/13 Monitor progress Will repeat BC 1-2 weeks after finishing Vancomycin Sara Greenfield MD Aug 12, 2016 14:44
[2016-08-12 16:00] VITALS: BP 158/72; PULSE 72; RESP 18; TEMP 97; O2SAT 96
[2016-08-12 20:00] VITALS: BP 154/74; PULSE 71; RESP 20; TEMP 98.4; O2SAT 94
[2016-08-12] MEDS: CLINIMIX E 5/25 2000 mL- >42 mls/hr IV-CENTRAL SCH ×3 (20:40)
[2016-08-12] MEDS: GABAPENTIN 100 MG CAP PO SCH (20:41)
[2016-08-12] MEDS: MIRTAZAPINE ODT 15 MG TAB PO SCH (20:41)
[2016-08-13] VITALS (7 sets, daily range): BP systolic 97–188; BP diastolic 50–90; PULSE 65–76; RESP 16–20; TEMP 96.6–99; O2SAT 94–96
[2016-08-13] MEDS: VANCOMYCIN INJ 1,250 MG in SODIUM CHLOR 0.9% 250 ML INJ 250 ML IV SCH ×2 (00:07→18:21)
[2016-08-13] MEDS: ERYTHROMYCIN 0.5% OPTH OINT 3.5 GM TUBO LEFT EYE SCH ×3 (06:00→22:00)
[2016-08-13] MEDS: ALPRAZolam 0.25 MG TAB PO SCH ×3 (06:38→22:51)
[2016-08-13] MEDS: CALCIUM/VITAMIN D 250 MG/125 U TAB PO SCH ×2 (08:35→22:51)
[2016-08-13] MEDS: LACTOBACILLUS ACIDOPHILUS TAB PO SCH ×3 (08:35→18:14)
[2016-08-13] MEDS: MEGESTROL ACETATE SUSP 400 MG/10 ML CUP PO SCH ×2 (08:35→09:00)
[2016-08-13] MEDS: PANTOPRAZOLE SOD 20 MG DELAYED RELEASE TAB PO SCH ×2 (08:36→22:51)
[2016-08-13] MEDS: ZINC SULFATE 220 MG CAP PO SCH (08:36)
[2016-08-13] MEDS: DILTIAZEM-CD 120 MG CAP ER PO SCH (08:37)
[2016-08-13] MEDS: RIVAROXABAN 20 MG TAB PO SCH (08:37)
[2016-08-13] MEDS: FERROUS SULFATE 325 MG (65 MG ELEMENTAL IRON) TAB PO SCH (08:37)
[2016-08-13] MEDS: CALCITRIOL 0.25 MCG CAP PO SCH (08:37)
[2016-08-13] MEDS: SERTRALINE HCL 100 MG TAB PO SCH (08:37)
[2016-08-13] MEDS: NYSTAT/DIPHENHY/LIDO MOUTHWASH (Adult) 120ML SWISH-SWAL SCH ×4 (08:38→22:50)
[2016-08-13] MEDS: MAGNESIUM OXIDE 400 MG TAB PO SCH ×2 (08:38→22:51)
[2016-08-13] MEDS: METHADONE HCL 10 MG TAB PO SCH (08:39)
[2016-08-13] MEDS: COLLAGENASE OINT 30 GM TUBE TOP SCH (09:00)
[2016-08-13] MEDS: prednisoLONE ACETATE 1% OPHT SUSP 5 ML BTL LEFT EYE SCH ×2 (11:58→21:00)
[2016-08-13] MEDS: NYSTATIN 100,000 U/GM PWD 15 GM BTL TOPICAL SCH ×2 (11:58→21:00)
[2016-08-13] MEDS: SODIUM CHLORIDE 0.9% FLUSH 5 ML FLUSH IV FLUSH SCH ×2 (11:59→22:50)
[2016-08-13] MEDS: ONDANSETRON HCL 4 MG/2 ML VIAL IV PUSH PRN (12:13)
[2016-08-13] MEDS ORDERED: LOPERAMIDE HCL SOLN 2 MG/10 ML UDC PO ONE (14:00)
[2016-08-13] MEDS ORDERED: HYDROCHLOROTHIAZIDE 12.5 MG CAP PO SCH (14:00)
[2016-08-13] MEDS: ERTAPENEM INJ 1,000 MG in SODIUM CHLORIDE 0.9% INJ 100 ML IV SCH (14:12)
--- NOTE | 2016-08-13 14:13 | HHI.PR ---
Subjective Remarks Pt states she feels much better since guevara removed. She is having loose stools since yesterday. no nausea or vomiting. Objective Vitals Vital Signs Date Time Temp Pulse Resp B/P Pulse Ox O2 Delivery O2 Flow Rate FiO2 08/13/16 12:00 96.6 70 20 188/90 94 08/13/16 08:00 97.9 68 20 158/71 96 08/13/16 04:00 98.2 70 20 154/72 95 08/13/16 04:00 Room Air 08/13/16 00:00 Room Air 08/13/16 00:00 99.0 76 20 129/69 95 08/12/16 20:00 98.4 71 20 154/74 94 08/12/16 20:00 Room Air 08/12/16 16:00 97.0 72 18 158/72 96 I/O 08/12/16 08/12/16 08/12/16 08/13/16 08/13/16 08/13/16 07:00 15:00 23:00 07:00 15:00 23:00 Intake Total 360 ml 1668 ml 641 ml 1291 ml Output Total 500 ml 600 ml 125 ml 50 ml Balance -140 ml 1068 ml 516 ml 1241 ml Intake Oral 360 ml 240 ml 120 ml 540 ml IV Total 107 ml 250 ml TPN/PPN 1321 ml 521 ml 501 ml Output Urine Total 500 ml 600 ml 125 ml 50 ml # Bowel Movements 0 5 1 2 Result Diagram: 08/12/16 0820 Imaging Last Impressions Liver Ultrasound 07/12/16 0000 Signed Impressions: Service Date/Time: Tuesday, July 12, 2016 18:07 - CONCLUSION: 1. No acute abnormality demonstrated. 2. Heterogeneous liver without measurable mass. 3. Small and heterogeneous spleen without a measurable mass. 4. Cortical thinning and scarring of the right kidney. 5. Previous cholecystectomy. Calixto Woodruff MD Chest CT 07/09/16 0000 Signed Impressions: Service Date/Time: Saturday, July 09, 2016 14:43 - CONCLUSION: 1. Small right pleural effusion and minimal right basilar consolidation. 2. 6 mm left basilar nodule. Followup CT chest 6 months recommended. Florian Pepper MD Chest X-Ray 07/08/16 0000 Signed Impressions: Service Date/Time: Friday, July 08, 2016 16:26 - CONCLUSION: Chronic right lung base opacity unchanged. No new pulmonary opacity. Alexandru Lynch MD Lower Extremity Ultrasound 06/25/16 0000 Signed Impressions: Service Date/Time: Saturday, June 25, 2016 15:56 - CONCLUSION: Negative exam with no evidence of deep venous thrombosis. Soft tissue edema. Mike Leija MD Port Line Insertion 06/20/16 0000 Signed Impressions: Service Date/Time: Monday, June 20, 2016 08:53 - CONCLUSION: Uncomplicated ultrasound and fluoroscopic guided implanted central venous port catheter placement as described in detail above. An 8 [place] Power port was placed. Kevan Salgado Jr., MD Objective Remarks GENERAL: Chronically ill-appearing patient. CARDIOVASCULAR: Regular rate and rhythm without murmur RESPIRATORY: Clear to auscultation. Breath sounds equal bilaterally. No wheezes GASTROINTESTINAL: Abdomen soft, non-tender, nondistended. Multiple draining mid abdomen enterocutaneous fistula but dressing in place and it is d/c/i. No guarding. MUSCULOSKELETAL: Left BKA wound appeared clean and dry. no signs of infection NEUROLOGICAL: Normal speech. SKIN; rash/excoriation on buttock area Procedures Left stump debridement by Dr. Hill on 06/15/16 A/P Problem List: (1) Infection of amputation stump ICD Code: T87.40 Status: Resolved (2) 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 (3) Hypercoagulable state ICD Code: D68.59 Status: Chronic (4) HTN (hypertension) ICD Code: I10 Status: Chronic (5) Anxiety about health ICD Code: F41.8 Status: Chronic (6) Diarrhea ICD Code: R19.7 Status: Acute (7) Severe protein-calorie malnutrition ICD Code: E43 Status: Acute (8) Fungal skin infection ICD Code: B36.9 Status: Acute (9) Transient lingual papillitis ICD Code: K14.0 Status: Acute (10) Hospital acquired PNA ICD Code: J18.9 Status: Acute (11) Major depressive disorder, recurrent severe without psychotic features ICD Code: F33.2 Status: Acute (12) Disseminated herpes zoster ICD Code: B02.7 Status: Acute Assessment and Plan The patient is a 70-year-old female with a medical history significant for ischemic bowel with resection in Oct 2015 and development of chronic enterocutaneous fistula, asthma, depression, COPD, severe peripheral vascular disease status post left BKA, multiple hospitalizations and readmissions. The patient was discharged from the hospital on 06/06/16 to a retirement facility for rehabilitation. The stitches on the left stump were taken out 2 weeks ago. She reports that the wound has been opening up when she participated with physical therapy. She returned due to wound dehiscence and infection. Patient has since developed an unusual rash and staff Hominis bacteremia -Staph Hominis bacteremia -Perioral, periorbital lesions- ID following, Dr. Greenfield. Continue Vancomycin for Staph hominis, give 4 weeks , end date 08/16 Continue Invanz for the Morganella in UC - plan at least 14 days - to finish 08/13 -Patient completed treatment with Valtrex. Rash: Unusual appearance and presentation, neg for herpes, biopsy inconclusive. Possibly related to zinc deficiency. - Zinc could not be added to TPN per pharmacy. on oral zinc sulfate replacement. - Added zinc oxide paste to buttock -Enterocutaneous fistula. per surgery, no further surgical intervention. Optimize nutrition with PO and TPN. wound care. -Malnutrition: Diarrhea-likely secondary to short gut syndrome, C diff negative. give dose of Imodium. monitor. repeat C. Diff - continue to monitor - on TPN for nutritional support -Continue Megace to stimulate appetite. -Infected left BKA stump: Patient status post BKA on 05/02/16. Dr. Sergio kuo. S/P debridement- dry -. Wound cultures growing Klebsiella ESBL positive and Morganella s/p tx with zerbaxa - Dilaudid IV for breakthrough pain. Continue Percocet. - on Methadone 5mg po q12, decrease to 2.5 mg BID and now will decrease to daily and continue to wean - vascular surgery s/p wound vac and removal, wound appears clean. abx per ID. -Fungal rash/groin - cont local antifungal -Hypercoagulable state: History of ischemic bowel and severe peripheral vascular disease. - Continue Xarelto -Anxiety and depression: -more feisty. no outbursts of crying on Seroquel and Zoloft. on Zoloft pt refused cymbalta. start Remeron. palliative care for support, pain control, -COPD: Breathing treatments as needed. Stable. -Severe protein-calorie malnutrition- Patient currently on TPN and being followed by dietitian. Ensure 1 can by mouth 3 times a day. -Skin care. She has excoriated skin over the buttock. Continue anti-fungal cream/zinc oxide/added mupirocin. Discussed with RN to replace rectal tube if/ when diarrhea start again. currently pt would like to try to be without guevara and rectal bag -GERD: Continue PPI Hypokalemia -improved. continue to monitor -Pulmonary nodule. Rpt CT in 6 mos. Patient previously counseled about this finding and the need to follow-up. GI prophylaxis: PPI. DVT PPx: Xarelto Discharge Planning DC pending clinical improvement. See case management note for detail. Multiple barriers to discharge to retirement facility. Per vascular surgery, patient needs to remain on TPN. Problem Qualifiers (1) HTN (hypertension): Qualified Code: I10 - Essential hypertension (2) Diarrhea: Qualified Code: R19.7 - Diarrhea, unspecified type Chandrika Dey MD Aug 13, 2016 14:13
[2016-08-13] MEDS: LISINOPRIL 20 MG TAB PO SCH (14:22)
[2016-08-13] MEDS: FAT EMULSION 20% INJ 250 ML (Twice weekly over 8 hours) IV-CENTRAL SCH (22:50)
[2016-08-13] MEDS: CLINIMIX E 5/25 2000 mL- >42 mls/hr IV-CENTRAL SCH ×3 (22:50)
[2016-08-13] MEDS: MUPIROCIN 2% OINT 22 GM TUBE TOPICAL SCH (22:51)
[2016-08-13] MEDS: GABAPENTIN 100 MG CAP PO SCH (22:51)
[2016-08-13] MEDS: MIRTAZAPINE ODT 15 MG TAB PO SCH (22:52)
[2016-08-13] MEDS: ZINC OXIDE 40% OINT 60 GM TUBE TOPICAL PRN (22:52)
[2016-08-14] VITALS: BP 145/65; PULSE 69; RESP 15; TEMP 97.5; O2SAT 94
[2016-08-14] MEDS: ERYTHROMYCIN 0.5% OPTH OINT 3.5 GM TUBO LEFT EYE SCH ×3 (06:00→21:19)
[2016-08-14 06:45] LABS: BICARBONATE 26.3 MEQ/L (21.0-32.0); POTASSIUM 3.4 MEQ/L (3.5-5.1)
[2016-08-14] MEDS: ALPRAZolam 0.25 MG TAB PO SCH ×3 (07:10→21:17)
[2016-08-14 08:00] VITALS: BP 131/60; PULSE 72; RESP 20; TEMP 98.1; O2SAT 94
[2016-08-14] MEDS: COLLAGENASE OINT 30 GM TUBE TOP SCH (09:00)
[2016-08-14] MEDS: MEGESTROL ACETATE SUSP 400 MG/10 ML CUP PO SCH (09:00)
[2016-08-14 12:00] VITALS: BP 149/68; PULSE 66; RESP 20; TEMP 96.6; O2SAT 94
[2016-08-14] MEDS: LISINOPRIL 20 MG TAB PO SCH (12:09)
[2016-08-14] MEDS: NYSTAT/DIPHENHY/LIDO MOUTHWASH (Adult) 120ML SWISH-SWAL SCH ×4 (12:09→21:18)
[2016-08-14] MEDS: RIVAROXABAN 20 MG TAB PO SCH (12:10)
[2016-08-14] MEDS: LACTOBACILLUS ACIDOPHILUS TAB PO SCH ×3 (12:10→16:17)
[2016-08-14] MEDS: SERTRALINE HCL 100 MG TAB PO SCH (12:10)
[2016-08-14] MEDS: METHADONE HCL 10 MG TAB PO SCH (12:10)
[2016-08-14] MEDS: DILTIAZEM-CD 120 MG CAP ER PO SCH (12:10)
[2016-08-14] MEDS: CALCIUM/VITAMIN D 250 MG/125 U TAB PO SCH ×2 (12:10→21:17)
[2016-08-14] MEDS: MAGNESIUM OXIDE 400 MG TAB PO SCH ×2 (12:10→21:18)
[2016-08-14] MEDS: PANTOPRAZOLE SOD 20 MG DELAYED RELEASE TAB PO SCH ×2 (12:10→21:18)
[2016-08-14] MEDS: CALCITRIOL 0.25 MCG CAP PO SCH (12:11)
[2016-08-14] MEDS: VANCOMYCIN INJ 1,250 MG in SODIUM CHLOR 0.9% 250 ML INJ 250 ML IV SCH (12:11)
[2016-08-14] MEDS: ZINC SULFATE 220 MG CAP PO SCH (12:11)
[2016-08-14] MEDS: FERROUS SULFATE 325 MG (65 MG ELEMENTAL IRON) TAB PO SCH (12:11)
[2016-08-14] MEDS: NYSTATIN 100,000 U/GM PWD 15 GM BTL TOPICAL SCH ×2 (12:12→21:19)
[2016-08-14] MEDS: MUPIROCIN 2% OINT 22 GM TUBE TOPICAL SCH ×2 (12:12→21:19)
[2016-08-14] MEDS: prednisoLONE ACETATE 1% OPHT SUSP 5 ML BTL LEFT EYE SCH ×2 (12:13→22:55)
[2016-08-14] MEDS: SODIUM CHLORIDE 0.9% FLUSH 5 ML FLUSH IV FLUSH SCH ×2 (12:14→22:56)
[2016-08-14] MEDS: ONDANSETRON HCL 4 MG/2 ML VIAL IV PUSH PRN (12:44)
[2016-08-14] MEDS ORDERED: POTASSIUM CHLORIDE 10 MEQ CONTROLLED RELEASE TAB PO ONE (12:45)
--- NOTE | 2016-08-14 13:10 | HHI.IDPN ---
Subjective Subjective Remarks Notes reviewed Clinically stable Finished UTI Rx yesterday [place] removed - voiding ok Having loose stool Rash drying up Temps ok 07/15, 07/16, 07/20 BC with Staph hominis Echo with possible MV vegetation Antibiotics Vancomycin - to finish 08/16 (28 days Rx) Invanz - completed Lines [place] Past Medical History 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 Vital Signs Date Time Temp Pulse Resp B/P Pulse Ox O2 Delivery O2 Flow Rate FiO2 08/14/16 12:00 96.6 66 20 149/68 94 08/14/16 08:00 98.1 72 20 131/60 94 08/14/16 04:00 Room Air 08/14/16 00:00 97.5 69 15 145/65 94 08/14/16 00:00 Room Air 08/13/16 22:00 98.3 75 16 133/69 95 08/13/16 20:00 Room Air 08/13/16 20:00 97.6 65 16 97/50 96 08/13/16 16:00 98.4 73 18 118/57 95 08/13/16 08/13/16 08/14/16 15:00 23:00 07:00 Intake Total 757 ml 817 ml 100 ml Balance 757 ml 817 ml 100 ml Intake Oral 240 ml 240 ml 100 ml IV Total 102 ml TPN/PPN 415 ml 577 ml # Voids 2 3 3 # Bowel Movements 3 3 . Laboratory Tests Test 08/14/16 03:29 Sodium Level 142 MEQ/L Potassium Level 3.4 MEQ/L Chloride Level 110 MEQ/L Carbon Dioxide Level 26.3 MEQ/L Anion Gap 6 MEQ/L Blood Urea Nitrogen 18 MG/DL Creatinine 0.70 MG/DL Estimat Glomerular Filtration 83 ML/MIN Rate Random Glucose 85 MG/DL Calcium Level 8.8 MG/DL Imaging Liver Ultrasound 07/12/16 0000 Signed Impressions: Service Date/Time: Tuesday, July 12, 2016 18:07 - CONCLUSION: 1. No acute abnormality demonstrated. 2. Heterogeneous liver without measurable mass. 3. Small and heterogeneous spleen without a measurable mass. 4. Cortical thinning and scarring of the right kidney. 5. Previous cholecystectomy. Calixto Woodruff MD Chest CT 07/09/16 0000 Signed Impressions: Service Date/Time: Saturday, July 09, 2016 14:43 - CONCLUSION: 1. Small right pleural effusion and minimal right basilar consolidation. 2. 6 mm left basilar nodule. Followup CT chest 6 months recommended. Florian Pepper MD Chest X-Ray 07/08/16 0000 Signed Impressions: Service Date/Time: Friday, July 08, 2016 16:26 - CONCLUSION: Chronic right lung base opacity unchanged. No new pulmonary opacity. Alexandru Lynch MD Lower Extremity Ultrasound 06/25/16 0000 Signed Impressions: Service Date/Time: Saturday, June 25, 2016 15:56 - CONCLUSION: Negative exam with no evidence of deep venous thrombosis. Soft tissue edema. Mike Leija MD Port Line Insertion 06/20/16 0000 Signed Impressions: Service Date/Time: Monday, June 20, 2016 08:53 - CONCLUSION: Uncomplicated ultrasound and fluoroscopic guided implanted central venous port catheter placement as described in detail above. An 8 [place] Power port was placed. Kevan Salgado Jr., MD Chest X-Ray 06/17/16 0000 Signed Impressions: Service Date/Time: Friday, June 17, 2016 14:12 - CONCLUSION: Right base infiltrate and small effusion. Calixto Woodruff MD Physical Exam GENERAL: awakens easily, NAD SKIN: Warm and dry. Rash better HEENT: [place] conjunctiva. No scleral icterus. Moist oral mucosa. NECK: Supple and not tender. CARDIOVASCULAR: Regular rate and rhythm. No murmur, no rub. RESPIRATORY: Coarse BS tatyana. Port L upper chest looks ok, currently accessed. ABDOMEN: Soft, nondistended. EC fistula with dressing. Not tender EXTREMITIES: LBKA stump with dry intact dressing. NEUROLOGICAL: Grossly non-focal PSYCH: Calm and cooperative LINE: Port looks ok. Assessment & Plan Remarks IMPRESSION Infection LBKA stump, C/S Klebsiella ESBL+ and Morganella - S/P debridement - S/P Rx Multiple Abx allergy - has tolerated Cephalosporins in the past PVD Previous abdominal OR for ischemic bowel, has fistula - has increased output Fevers,resolved Staph hominis sepsis, has MV vegetation Rash on face and back, drying up - biopsy not diagnostic Tremors both hands, ?deconditioning - better RECOMMENDATION Continue Vancomycin for Staph hominis - give 4 weeks - end date 08/16 Will repeat BC 1-2 week [place] completed Monitor progress Sara Greenfield MD Aug 14, 2016 13:10
--- NOTE | 2016-08-14 15:40 | HHI.PR ---
Subjective Remarks Patient denies fevers/chills denies abdominal pain appetite is not great but states that she is eating. loose stools denies nausea/vomiting Objective Vitals Vital Signs Date Time Temp Pulse Resp B/P Pulse Ox O2 Delivery O2 Flow Rate FiO2 08/14/16 12:00 96.6 66 20 149/68 94 08/14/16 08:00 98.1 72 20 131/60 94 08/14/16 04:00 Room Air 08/14/16 00:00 97.5 69 15 145/65 94 08/14/16 00:00 Room Air 08/13/16 22:00 98.3 75 16 133/69 95 08/13/16 20:00 Room Air 08/13/16 20:00 97.6 65 16 97/50 96 08/13/16 16:00 98.4 73 18 118/57 95 I/O 08/13/16 08/13/16 08/13/16 08/14/16 08/14/16 08/14/16 07:00 15:00 23:00 07:00 15:00 23:00 Intake Total 1291 ml 757 ml 817 ml 100 ml Output Total 50 ml Balance 1241 ml 757 ml 817 ml 100 ml Intake Oral 540 ml 240 ml 240 ml 100 ml IV Total 250 ml 102 ml TPN/PPN 501 ml 415 ml 577 ml Output Urine Total 50 ml # Voids 2 3 3 4 # Bowel Movements 2 3 3 1 Result Diagram: 08/14/16 0329 Imaging Last Impressions Liver Ultrasound 07/12/16 0000 Signed Impressions: Service Date/Time: Tuesday, July 12, 2016 18:07 - CONCLUSION: 1. No acute abnormality demonstrated. 2. Heterogeneous liver without measurable mass. 3. Small and heterogeneous spleen without a measurable mass. 4. Cortical thinning and scarring of the right kidney. 5. Previous cholecystectomy. Calixto Woodruff MD Chest CT 07/09/16 0000 Signed Impressions: Service Date/Time: Saturday, July 09, 2016 14:43 - CONCLUSION: 1. Small right pleural effusion and minimal right basilar consolidation. 2. 6 mm left basilar nodule. Followup CT chest 6 months recommended. Florian Pepper MD Chest X-Ray 07/08/16 0000 Signed Impressions: Service Date/Time: Friday, July 08, 2016 16:26 - CONCLUSION: Chronic right lung base opacity unchanged. No new pulmonary opacity. Alexandru Lynch MD Lower Extremity Ultrasound 06/25/16 0000 Signed Impressions: Service Date/Time: Saturday, June 25, 2016 15:56 - CONCLUSION: Negative exam with no evidence of deep venous thrombosis. Soft tissue edema. Mike Leija MD Port Line Insertion 06/20/16 0000 Signed Impressions: Service Date/Time: Monday, June 20, 2016 08:53 - CONCLUSION: Uncomplicated ultrasound and fluoroscopic guided implanted central venous port catheter placement as described in detail above. An 8 [place] [employer] port was placed. Kevan Salgado Jr., MD Objective Remarks GENERAL: Chronically ill-appearing patient. CARDIOVASCULAR: Regular rate and rhythm without murmur RESPIRATORY: Clear to auscultation. Breath sounds equal bilaterally. No wheezes GASTROINTESTINAL: Abdomen soft, non-tender, nondistended. Multiple draining mid abdomen enterocutaneous fistula but dressing in place and it is d/c/i. No guarding. MUSCULOSKELETAL: Left BKA wound appeared clean and dry. no signs of infection NEUROLOGICAL: Normal speech. SKIN; rash/excoriation on buttock area Procedures Left stump debridement by Dr. Hill on 06/15/16 Medications and IVs Current Medications Medications (Trade) Dose Ordered Sig/Shira Route Start Time Stop Time Status Last Admin (NS Flush) 2 ml BID IV FLUSH 06/14/16 21:00 08/14/16 12:14 (NS Flush) 2 ml UNSCH PRN IV FLUSH 06/14/16 17:00 07/31/16 22:44 (Cardizem Cd) 120 mg DAILY PO 06/15/16 09:00 08/14/16 12:10 (Rocaltrol) 0.25 mcg DAILY PO 06/15/16 09:00 08/14/16 12:11 (Ferrous Sulfate) 325 mg DAILY PO 06/15/16 09:00 08/14/16 12:11 (Neurontin) 100 mg HS PO 06/14/16 21:00 08/13/16 22:51 (Lactinex) 1 tab TID PO 06/14/16 18:00 08/14/16 12:38 (Imodium) 2 mg Q6H PRN PO 06/14/16 17:45 Hold 07/04/16 17:14 (Oscal-D 250-125) 500 mg BID PO 06/14/16 21:00 08/14/16 12:10 (Zofran Odt) 8 mg Q6H PRN PO 06/14/16 18:15 07/08/16 12:37 (Pill Splitter) 1 ea UNSCH PRN OTHER 06/14/16 18:00 (Theragran) 1 tab DAILY PO 06/15/16 12:00 Hold 06/20/16 15:16 (Dilaudid Pf Inj) 1 mg Q4H PRN IV PUSH 06/15/16 14:30 08/09/16 21:35 (Heparin Central Flush) 500 units UNSCH IVF 06/20/16 11:30 06/24/16 05:25 (NS Flush) 5 ml UNSCH PRN IVF 06/20/16 11:30 (Heparin Central Flush) 250 units UNSCH PRN IVF 06/20/16 11:30 07/26/16 14:54 (Xarelto) 20 mg DAILY PO 06/21/16 09:00 08/14/16 12:10 (Protonix) 40 mg BID PO 07/09/16 21:00 08/14/16 12:10 (Zofran Inj) 4 mg Q6HR PRN IV PUSH 07/09/16 16:45 08/14/16 12:44 (Mag-Al Plus Susp Liq) 30 ml Q6H PRN PO 07/09/16 16:45 07/09/16 17:19 (Magic Mouthwash Adult Liq) 10 ml QID SWISH-SWAL 07/10/16 19:00 08/14/16 12:39 (Tylenol) 650 mg Q4H PRN PO 07/11/16 05:45 07/29/16 13:58 Nystatin 1 applic 1 applic Q12HR TOPICAL 07/11/16 12:00 08/14/16 12:12 (Vancomycin Consult Pharmacy) 0 ml @ 0 mls/hr UNSCH OTHER 07/11/16 10:15 (Mag-Ox) 400 mg Q12HR PO 07/13/16 13:45 08/14/16 12:10 Collagenase 1 applic 1 applic DAILY TOP 07/14/16 13:15 08/07/16 09:00 Multivitamins 10 ml/Folic Acid 1 mg/Amino Acid Electrolyte w/ Calc 2,010.2 ml @ 60 mls/hr Q24H IV-CENTRAL 07/15/16 20:00 08/13/16 22:50 (Liposyn Iii 20% Inj) 250 ml @ 31.25 mls/ hr SuWe@20 IV-CENTRAL 07/16/16 20:00 08/13/16 22:50 (Zoloft) 150 mg DAILY PO 07/17/16 09:00 08/14/16 12:10 ([place] 7.5-325 Mg) 1 tab Q4H PRN PO 07/16/16 11:00 08/01/16 12:20 ([place] 10-325 Mg) 1.5 tab Q4H PRN PO 07/16/16 11:00 08/11/16 11:08 (Narcan Inj) 0.4 mg UNSCH PRN IV 07/16/16 11:00 (Benadryl Liq) 12.5 mg Q6H PRN PO 07/16/16 17:00 07/24/16 12:20 Metoclopramide HCl 5 mg 5 mg Q8H PRN IV PUSH 07/23/16 12:30 (Vancomycin Inj/ NS 250 ml Inj) 275 ml @ 250 mls/hr Q18H IV 07/25/16 23:00 08/16/16 23:00 08/14/16 12:11 (Ilotycin 0.5% Opth Oint) 1 applic Q8HR LEFT EYE 07/25/16 22:00 08/14/16 12:13 (Pred Forte 1% Opth Susp) 1 drop BID LEFT EYE 07/25/16 21:00 08/14/16 12:13 (Xanax) 0.25 mg Q8HR PO 07/26/16 14:00 08/14/16 07:10 (Remeron Soltab Odt) 15 mg HS PO 07/29/16 21:00 08/13/16 22:52 (Calamine Lotion) 1 applic Q8H PRN TOPICAL 07/31/16 13:30 08/06/16 11:22 (Zinc Sulfate) 220 mg DAILY PO 08/04/16 11:00 08/14/16 12:11 (Megace Liq) 800 mg DAILY PO 08/04/16 12:00 08/12/16 09:23 (Bactroban 2% Oint) 1 applic Q12HR TOPICAL 08/13/16 21:00 08/14/16 12:12 (Desitin 40% Oint) 1 applic UNSCH PRN TOPICAL 08/13/16 14:15 08/13/16 22:52 (Prinivil) 20 mg DAILY PO 08/13/16 15:00 08/14/16 12:09 (Dolophine) 2.5 mg DAILY PO 08/14/16 09:00 08/14/16 12:10 (Questran 4 Gm Pkt) 4 gm Q12H PO 08/14/16 23:00 Urinary Catheter: No Vascular Central Line Catheter: No A/P Problem List: (1) Infection of amputation stump ICD Code: T87.40 Status: Resolved (2) 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 (3) Hypercoagulable state ICD Code: D68.59 Status: Chronic (4) HTN (hypertension) ICD Code: I10 Status: Chronic (5) Anxiety about health ICD Code: F41.8 Status: Chronic (6) Diarrhea ICD Code: R19.7 Status: Acute (7) Severe protein-calorie malnutrition ICD Code: E43 Status: Acute (8) Fungal skin infection ICD Code: B36.9 Status: Acute (9) Transient lingual papillitis ICD Code: K14.0 Status: Acute (10) Hospital acquired PNA ICD Code: J18.9 Status: Acute (11) Major depressive disorder, recurrent severe without psychotic features ICD Code: F33.2 Status: Acute (12) Disseminated herpes zoster ICD Code: B02.7 Status: Acute (13) Hypokalemia ICD Code: E87.6 Status: Acute Assessment and Plan The patient is a 70-year-old female with a medical history significant for ischemic bowel with resection in Oct 2015 and development of chronic enterocutaneous fistula, asthma, depression, COPD, severe peripheral vascular disease status post left BKA, multiple hospitalizations and readmissions. The patient was discharged from the hospital on 06/06/16 to a [facility] facility for [facility]. The stitches on the left stump were taken out 2 weeks ago. She reports that the wound has been opening up when she participated with physical therapy. She returned due to wound dehiscence and infection. Patient has since developed an unusual rash and staff Hominis bacteremia -Staph Hominis bacteremia -Perioral, periorbital lesions- ID following, Dr. Greenfield. Continue Vancomycin for Staph hominis, give 4 weeks , end date 08/16 Continue Invanz for the Morganella in UC - plan at least 14 days - to finish 08/13 -Patient completed treatment with Valtrex. Rash: Unusual appearance and presentation, neg for herpes, biopsy inconclusive. Possibly related to zinc deficiency. - Zinc could not be added to TPN per pharmacy. on oral zinc sulfate replacement. - Continue zinc oxide paste to buttock -Enterocutaneous fistula. per surgery, no further surgical intervention. Optimize nutrition with PO and TPN. wound care. -Malnutrition: Diarrhea-likely secondary to short gut syndrome, C diff negative. give dose of Imodium. monitor. repeat C. Diff - continue to monitor - on TPN for nutritional support -Continue Megace to stimulate appetite. -Infected left BKA stump: Patient status post BKA on 05/02/16. Dr. Sergio kuo. S/P debridement- dry -. Wound cultures growing Klebsiella ESBL positive and Morganella s/p tx with zerbaxa - Dilaudid IV for breakthrough pain. Continue Percocet. - on Methadone 5mg po q12, decreased to 2.5 mg BID and now daily. - vascular surgery s/p wound vac and removal, wound appears clean. abx per ID. -Fungal rash/groin - cont local antifungal -Hypercoagulable state: History of ischemic bowel and severe peripheral vascular disease. - Continue Xarelto -Anxiety and depression: -more feisty. no outbursts of crying on Seroquel and Zoloft. Refused Cymbalta. Continue Remeron. palliative care for support, pain control, -COPD: Breathing treatments as needed. Stable. -Severe protein-calorie malnutrition- Patient currently on TPN and being followed by dietitian. Ensure 1 can by mouth 3 times a day. -Skin care. She has excoriated skin over the buttock. Continue anti-fungal cream/zinc oxide/added mupirocin. Discussed with RN to replace rectal tube if/ when diarrhea start again. currently pt would like to try to be without guevara and rectal bag -GERD: Continue PPI Hypokalemia -improved. continue to monitor -Pulmonary nodule. Rpt CT in 6 mos. Patient previously counseled about this finding and the need to follow-up. - Hypokalemia: replete and monitor. GI prophylaxis: PPI. DVT PPx: Xarelto Discharge Planning DC pending clinical improvement. See case management note for detail. Multiple barriers to discharge to [facility] facility. Per vascular surgery, patient needs to remain on TPN. Problem Qualifiers (1) HTN (hypertension): Qualified Code: I10 - Essential hypertension (2) Diarrhea: Qualified Code: R19.7 - Diarrhea, unspecified type Jeff Carey MD Aug 14, 2016 15:40
[2016-08-14 16:00] VITALS: BP 122/56; PULSE 74; RESP 20; TEMP 98.6; O2SAT 94
[2016-08-14 20:00] VITALS: BP 125/59; PULSE 65; RESP 19; TEMP 98.5; O2SAT 96
[2016-08-14] MEDS: diphenhydrAMINE HCL ELIXIR 12.5 MG/5 ML CUP PO PRN (21:17)
[2016-08-14] MEDS: GABAPENTIN 100 MG CAP PO SCH (21:17)
[2016-08-14] MEDS: MIRTAZAPINE ODT 15 MG TAB PO SCH (22:53)
[2016-08-14] MEDS: CHOLESTYRAMINE 4 GM PACKET PO SCH (22:55)
[2016-08-14] MEDS: CLINIMIX E 5/25 2000 mL- >42 mls/hr IV-CENTRAL SCH ×3 (22:56)
[2016-08-15] VITALS (7 sets, daily range): BP systolic 98–149; BP diastolic 57–72; PULSE 63–75; RESP 16–18; TEMP 96.7–98.8; O2SAT 93–98
[2016-08-15 04:37] LABS: C. DIFF EPI 027 PRESUMPTIVE NEGATIVE (NEGATIVE); C. DIFF TOXIN PCR NEGATIVE (NEGATIVE)
[2016-08-15] MEDS: VANCOMYCIN INJ 1,250 MG in SODIUM CHLOR 0.9% 250 ML INJ 250 ML IV SCH ×2 (05:46→23:18)
[2016-08-15] MEDS: ALPRAZolam 0.25 MG TAB PO SCH ×3 (05:46→21:48)
[2016-08-15] MEDS: ERYTHROMYCIN 0.5% OPTH OINT 3.5 GM TUBO LEFT EYE SCH ×3 (05:46→21:50)
[2016-08-15 08:08] LABS: BICARBONATE 26.4 MEQ/L (21.0-32.0); POTASSIUM 3.7 MEQ/L (3.5-5.1)
[2016-08-15] MEDS: LACTOBACILLUS ACIDOPHILUS TAB PO SCH ×3 (08:21→16:58)
[2016-08-15] MEDS: RIVAROXABAN 20 MG TAB PO SCH (08:21)
[2016-08-15] MEDS: FERROUS SULFATE 325 MG (65 MG ELEMENTAL IRON) TAB PO SCH (08:21)
[2016-08-15] MEDS: SERTRALINE HCL 100 MG TAB PO SCH (08:21)
[2016-08-15] MEDS: CALCIUM/VITAMIN D 250 MG/125 U TAB PO SCH ×2 (08:21→21:49)
[2016-08-15] MEDS: ZINC SULFATE 220 MG CAP PO SCH (08:21)
[2016-08-15] MEDS: MAGNESIUM OXIDE 400 MG TAB PO SCH ×2 (08:21→21:48)
[2016-08-15] MEDS: NYSTAT/DIPHENHY/LIDO MOUTHWASH (Adult) 120ML SWISH-SWAL SCH ×4 (08:21→21:00)
[2016-08-15] MEDS: METHADONE HCL 10 MG TAB PO SCH (08:22)
[2016-08-15] MEDS: prednisoLONE ACETATE 1% OPHT SUSP 5 ML BTL LEFT EYE SCH ×2 (08:22→21:00)
[2016-08-15] MEDS: PANTOPRAZOLE SOD 20 MG DELAYED RELEASE TAB PO SCH ×2 (08:22→21:49)
[2016-08-15] MEDS: CALCITRIOL 0.25 MCG CAP PO SCH (08:22)
[2016-08-15] MEDS: SODIUM CHLORIDE 0.9% FLUSH 5 ML FLUSH IV FLUSH SCH ×2 (08:23→21:00)
[2016-08-15] MEDS: MEGESTROL ACETATE SUSP 400 MG/10 ML CUP PO SCH (08:23)
[2016-08-15] MEDS: NYSTATIN 100,000 U/GM PWD 15 GM BTL TOPICAL SCH ×2 (08:24→21:00)
[2016-08-15] MEDS: MUPIROCIN 2% OINT 22 GM TUBE TOPICAL SCH ×2 (08:24→21:00)
[2016-08-15] MEDS: COLLAGENASE OINT 30 GM TUBE TOP SCH (08:24)
[2016-08-15] MEDS: LISINOPRIL 20 MG TAB PO SCH (08:28)
[2016-08-15] MEDS: DILTIAZEM-CD 120 MG CAP ER PO SCH (08:28)
[2016-08-15] MEDS: CHOLESTYRAMINE 4 GM PACKET PO SCH ×2 (10:44→22:55)
--- NOTE | 2016-08-15 15:08 | HHI.PR ---
Subjective Remarks No major overnight events BP noted to be low with a BP of 98/57 Patient felt nauseous earlier today. no fevers/chills denies dizziness Objective Vitals Vital Signs Date Time Temp Pulse Resp B/P Pulse Ox O2 Delivery O2 Flow Rate FiO2 08/15/16 08:29 97.3 66 18 98/57 96 08/15/16 08:15 Room Air 08/15/16 04:00 98.8 71 16 141/69 98 08/15/16 00:00 98.0 75 17 131/65 98 08/14/16 21:00 Room Air 08/14/16 20:00 98.5 65 19 125/59 96 08/14/16 16:00 98.6 74 20 122/56 94 I/O 08/14/16 08/14/16 08/14/16 08/15/16 08/15/16 08/15/16 07:00 15:00 23:00 07:00 15:00 23:00 Intake Total 100 ml 360 ml 200 ml Balance 100 ml 360 ml 200 ml Intake Oral 100 ml 360 ml 200 ml # Voids 3 4 8 4 # Bowel Movements 1 2 2 Result Diagram: 08/15/16 0611 Objective Remarks GENERAL: Chronically ill-appearing patient. CARDIOVASCULAR: Regular rate and rhythm without murmur RESPIRATORY: Clear to auscultation. Breath sounds equal bilaterally. No wheezes GASTROINTESTINAL: Abdomen soft, non-tender, nondistended. Multiple draining mid abdomen enterocutaneous fistula but dressing in place and it is d/c/i. No guarding. MUSCULOSKELETAL: Left BKA wound appeared clean and dry. no signs of infection NEUROLOGICAL: Normal speech. SKIN; rash/excoriation on buttock area Procedures Left stump debridement by Dr. Hill on 06/15/16 Medications and IVs Current Medications Medications (Trade) Dose Ordered Sig/Shira Route Start Time Stop Time Status Last Admin (NS Flush) 2 ml BID IV FLUSH 06/14/16 21:00 08/15/16 08:23 (NS Flush) 2 ml UNSCH PRN IV FLUSH 06/14/16 17:00 07/31/16 22:44 (Cardizem Cd) 120 mg DAILY PO 06/15/16 09:00 08/14/16 12:10 (Rocaltrol) 0.25 mcg DAILY PO 06/15/16 09:00 08/15/16 08:22 (Ferrous Sulfate) 325 mg DAILY PO 06/15/16 09:00 08/15/16 08:21 (Neurontin) 100 mg HS PO 06/14/16 21:00 08/15/16 21:48 (Lactinex) 1 tab TID PO 06/14/16 18:00 08/15/16 16:58 (Imodium) 2 mg Q6H PRN PO 06/14/16 17:45 Hold 07/04/16 17:14 (Oscal-D 250-125) 500 mg BID PO 06/14/16 21:00 08/15/16 21:49 (Zofran Odt) 8 mg Q6H PRN PO 06/14/16 18:15 07/08/16 12:37 (Pill Splitter) 1 ea UNSCH PRN OTHER 06/14/16 18:00 (Theragran) 1 tab DAILY PO 06/15/16 12:00 Hold 06/20/16 15:16 (Dilaudid Pf Inj) 1 mg Q4H PRN IV PUSH 06/15/16 14:30 08/09/16 21:35 (Heparin Central Flush) 500 units UNSCH IVF 06/20/16 11:30 06/24/16 05:25 (NS Flush) 5 ml UNSCH PRN IVF 06/20/16 11:30 (Heparin Central Flush) 250 units UNSCH PRN IVF 06/20/16 11:30 07/26/16 14:54 (Xarelto) 20 mg DAILY PO 06/21/16 09:00 08/15/16 08:21 (Protonix) 40 mg BID PO 07/09/16 21:00 08/15/16 21:49 (Zofran Inj) 4 mg Q6HR PRN IV PUSH 07/09/16 16:45 08/14/16 12:44 (Mag-Al Plus Susp Liq) 30 ml Q6H PRN PO 07/09/16 16:45 07/09/16 17:19 (Magic Mouthwash Adult Liq) 10 ml QID SWISH-SWAL 07/10/16 19:00 08/15/16 21:00 (Tylenol) 650 mg Q4H PRN PO 07/11/16 05:45 07/29/16 13:58 Nystatin 1 applic 1 applic Q12HR TOPICAL 07/11/16 12:00 08/15/16 21:00 (Vancomycin Consult Pharmacy) 0 ml @ 0 mls/hr UNSCH OTHER 07/11/16 10:15 (Mag-Ox) 400 mg Q12HR PO 07/13/16 13:45 08/15/16 21:48 Collagenase 1 applic 1 applic DAILY TOP 07/14/16 13:15 08/15/16 08:24 Multivitamins 10 ml/Folic Acid 1 mg/Amino Acid Electrolyte w/ Calc 2,010.2 ml @ 60 mls/hr Q24H IV-CENTRAL 07/15/16 20:00 08/15/16 21:49 (Liposyn Iii 20% Inj) 250 ml @ 31.25 mls/ hr SuWe@20 IV-CENTRAL 07/16/16 20:00 08/13/16 22:50 (Zoloft) 150 mg DAILY PO 07/17/16 09:00 08/15/16 08:21 ([place] 7.5-325 Mg) 1 tab Q4H PRN PO 07/16/16 11:00 08/15/16 23:18 ([place] 10-325 Mg) 1.5 tab Q4H PRN PO 07/16/16 11:00 08/15/16 15:16 (Narcan Inj) 0.4 mg UNSCH PRN IV 07/16/16 11:00 (Benadryl Liq) 12.5 mg Q6H PRN PO 07/16/16 17:00 08/14/16 21:17 Metoclopramide HCl 5 mg 5 mg Q8H PRN IV PUSH 07/23/16 12:30 (Vancomycin Inj/ NS 250 ml Inj) 275 ml @ 250 mls/hr Q18H IV 07/25/16 23:00 08/16/16 23:00 08/15/16 23:18 (Ilotycin 0.5% Opth Oint) 1 applic Q8HR LEFT EYE 07/25/16 22:00 08/15/16 21:50 (Pred Forte 1% Opth Susp) 1 drop BID LEFT EYE 07/25/16 21:00 08/15/16 21:00 (Xanax) 0.25 mg Q8HR PO 10/5/16 14:00 08/15/16 21:48 (Remeron Soltab Odt) 15 mg HS PO 07/29/16 21:00 08/15/16 21:00 (Calamine Lotion) 1 applic Q8H PRN TOPICAL 07/31/16 13:30 08/06/16 11:22 (Zinc Sulfate) 220 mg DAILY PO 08/04/16 11:00 08/15/16 08:21 (Megace Liq) 800 mg DAILY PO 08/04/16 12:00 08/12/16 09:23 (Bactroban 2% Oint) 1 applic Q12HR TOPICAL 08/13/16 21:00 08/15/16 21:00 (Desitin 40% Oint) 1 applic UNSCH PRN TOPICAL 08/13/16 14:15 08/13/16 22:52 (Prinivil) 20 mg DAILY PO 08/13/16 15:00 08/14/16 12:09 (Dolophine) 2.5 mg DAILY PO 08/14/16 09:00 08/15/16 08:22 (Questran 4 Gm Pkt) 4 gm Q12H PO 08/14/16 23:00 A/P Problem List: (1) Infection of amputation stump ICD Code: T87.40 Status: Resolved (2) 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 (3) Hypercoagulable state ICD Code: D68.59 Status: Chronic (4) HTN (hypertension) ICD Code: I10 Status: Chronic (5) Anxiety about health ICD Code: F41.8 Status: Chronic (6) Diarrhea ICD Code: R19.7 Status: Chronic (7) Severe protein-calorie malnutrition ICD Code: E43 Status: Acute (8) Fungal skin infection ICD Code: B36.9 Status: Resolved (9) Transient lingual papillitis ICD Code: K14.0 Status: Resolved (10) Hospital acquired PNA ICD Code: J18.9 Status: Resolved (11) Major depressive disorder, recurrent severe without psychotic features ICD Code: F33.2 Status: Chronic (12) Disseminated herpes zoster ICD Code: B02.7 Status: Resolved (13) Hypokalemia ICD Code: E87.6 Status: Resolved Assessment and Plan The patient is a 70-year-old female with a medical history significant for ischemic bowel with resection in Oct 2015 and development of chronic enterocutaneous fistula, asthma, depression, COPD, severe peripheral vascular disease status post left BKA, multiple hospitalizations and readmissions. The patient was discharged from the hospital on [facility] The stitches on the left stump were taken out 2 weeks ago. She reports that the wound has been opening up when she participated with physical therapy. She returned due to wound dehiscence and infection. Patient has since developed an unusual rash and staff Hominis bacteremia -Staph Hominis bacteremia -Perioral, periorbital lesions- ID following, Dr. Greenfield. Continue Vancomycin for Staph hominis, give 4 weeks , end date 08/16 Continue Invanz for the Morganella in UC - plan at least 14 days - to finish 08/13 -Patient completed treatment with Valtrex. Rash: Unusual appearance and presentation, neg for herpes, biopsy inconclusive. Possibly related to zinc deficiency. - Zinc could not be added to TPN per pharmacy. on oral zinc sulfate replacement. - Continue zinc oxide paste to buttock -Enterocutaneous fistula. per surgery, no further surgical intervention. Optimize nutrition with PO and TPN. wound care. -Malnutrition: Diarrhea-likely secondary to short gut syndrome, C diff negative. give dose of Imodium. monitor. repeat C. Diff - continue to monitor - on TPN for nutritional support -Continue Megace to stimulate appetite. -Infected left BKA stump: Patient status post BKA on 05/02/16. Dr. Sergio kuo. S/P debridement- dry -. Wound cultures growing Klebsiella ESBL positive and Morganella s/p tx with zerbaxa - Dilaudid IV for breakthrough pain. Continue Percocet. - on Methadone 5mg po q12, decreased to 2.5 mg BID and now daily. - vascular surgery s/p wound vac and removal, wound appears clean. abx per ID. -Fungal rash/groin - cont local antifungal -Hypercoagulable state: History of ischemic bowel and severe peripheral vascular disease. - Continue Xarelto -Anxiety and depression: -more feisty. no outbursts of crying on Seroquel and Zoloft. Refused Cymbalta. Continue Remeron. palliative care for support, pain control, -COPD: Breathing treatments as needed. Stable. -Severe protein-calorie malnutrition- Patient currently on TPN and being followed by dietitian. Ensure 1 can by mouth 3 times a day. -Skin care. She has excoriated skin over the buttock. Continue anti-fungal cream/zinc oxide/added mupirocin. Discussed with RN to replace rectal tube if/ when diarrhea start again. currently pt would like to try to be without guevara and rectal bag -GERD: Continue PPI Hypokalemia -improved. continue to monitor -Pulmonary nodule. Rpt CT in 6 mos. Patient previously counseled about this finding and the need to follow-up. - Hypokalemia: Due to poor oral intake. Resolved. Continue to monitor and replete as necessary. - Hypotension: Give A bolus of Normal saline. continue to monitor BP. Unclear etiology. Possibly secondaryt o volume depletion from poor oral intake and chronic diarrhea. GI prophylaxis: PPI. DVT PPx: Xarelto Discharge Planning DC pending clinical improvement. See case management note for detail. Multiple barriers [facility]. Per vascular surgery, patient needs to remain on TPN. Problem Qualifiers (1) HTN (hypertension): Qualified Code: I10 - Essential hypertension (2) Diarrhea: Qualified Code: R19.7 - Diarrhea, unspecified type Jeff Carey MD Aug 15, 2016 15:08
[2016-08-15] MEDS ORDERED: SODIUM CHLORID 0.9% 500 ML INJ 500 ML IV ONE (15:15)
[2016-08-15] MEDS: ACETAMINOPHEN/HYDROcodone 325 MG/10 MG TAB PO PRN (15:16)
[2016-08-15] MEDS: MIRTAZAPINE ODT 15 MG TAB PO SCH (21:00)
[2016-08-15] MEDS: GABAPENTIN 100 MG CAP PO SCH (21:48)
[2016-08-15] MEDS: CLINIMIX E 5/25 2000 mL- >42 mls/hr IV-CENTRAL SCH ×3 (21:49)
[2016-08-15] MEDS: ACETAMINOPHEN/HYDROcodone 325 MG/7.5 MG TAB PO PRN (23:18)
[2016-08-16 04:30] VITALS: BP 157/81; PULSE 76; RESP 16; TEMP 98.7; O2SAT 96
[2016-08-16] MEDS: ALPRAZolam 0.25 MG TAB PO SCH ×3 (06:19→23:32)
[2016-08-16] MEDS: ERYTHROMYCIN 0.5% OPTH OINT 3.5 GM TUBO LEFT EYE SCH ×3 (06:20→23:34)
[2016-08-16 08:00] VITALS: BP 166/83; PULSE 74; RESP 20; TEMP 98.8; O2SAT 95
[2016-08-16] MEDS: COLLAGENASE OINT 30 GM TUBE TOP SCH (09:00)
[2016-08-16] MEDS: SODIUM CHLORIDE 0.9% FLUSH 5 ML FLUSH IV FLUSH SCH ×2 (09:52→23:35)
[2016-08-16] MEDS: LISINOPRIL 20 MG TAB PO SCH (09:53)
[2016-08-16] MEDS: DILTIAZEM-CD 120 MG CAP ER PO SCH (09:53)
[2016-08-16] MEDS: ZINC SULFATE 220 MG CAP PO SCH (09:53)
[2016-08-16] MEDS: CALCITRIOL 0.25 MCG CAP PO SCH (09:53)
[2016-08-16] MEDS: LACTOBACILLUS ACIDOPHILUS TAB PO SCH ×3 (09:53→16:57)
[2016-08-16] MEDS: ALUMINUM/MAGNESIUM/SIMETH 30 ML CUP PO PRN (09:53)
[2016-08-16] MEDS: MEGESTROL ACETATE SUSP 400 MG/10 ML CUP PO SCH (09:53)
[2016-08-16] MEDS: METHADONE HCL 10 MG TAB PO SCH (09:54)
[2016-08-16] MEDS: MAGNESIUM OXIDE 400 MG TAB PO SCH ×2 (09:54→23:34)
[2016-08-16] MEDS: FERROUS SULFATE 325 MG (65 MG ELEMENTAL IRON) TAB PO SCH (09:55)
[2016-08-16] MEDS: RIVAROXABAN 20 MG TAB PO SCH (09:55)
[2016-08-16] MEDS: CALCIUM/VITAMIN D 250 MG/125 U TAB PO SCH ×2 (09:55→23:33)
[2016-08-16] MEDS: PANTOPRAZOLE SOD 20 MG DELAYED RELEASE TAB PO SCH ×2 (09:55→23:33)
[2016-08-16] MEDS: SERTRALINE HCL 100 MG TAB PO SCH (09:55)
[2016-08-16] MEDS: MUPIROCIN 2% OINT 22 GM TUBE TOPICAL SCH ×2 (09:56→21:00)
[2016-08-16] MEDS: NYSTATIN 100,000 U/GM PWD 15 GM BTL TOPICAL SCH ×2 (09:57→23:34)
[2016-08-16] MEDS: NYSTAT/DIPHENHY/LIDO MOUTHWASH (Adult) 120ML SWISH-SWAL SCH ×4 (09:58→21:00)
[2016-08-16] MEDS: prednisoLONE ACETATE 1% OPHT SUSP 5 ML BTL LEFT EYE SCH ×2 (09:58→21:00)
[2016-08-16] MEDS: CHOLESTYRAMINE 4 GM PACKET PO SCH ×2 (11:00→23:00)
[2016-08-16 12:00] VITALS: BP 154/76; PULSE 73; RESP 20; TEMP 99.1; O2SAT 94
--- NOTE | 2016-08-16 14:52 | HHI.PR ---
Subjective Remarks fu htn, malnutrition, hypokalemia, pna patient states did not want to eat still has poor appetite denies fevers or chills denies headache or visual disturbance BP noted to be in the 150's Objective Vitals Vital Signs Date Time Temp Pulse Resp B/P Pulse Ox O2 Delivery O2 Flow Rate FiO2 08/16/16 12:00 99.1 73 20 154/76 94 08/16/16 08:00 98.8 74 20 166/83 95 08/16/16 04:30 98.7 76 16 157/81 96 08/16/16 00:18 18 08/15/16 23:40 97.4 72 16 149/72 93 08/15/16 19:58 97.5 68 16 109/59 96 08/15/16 16:00 97.0 63 18 131/62 95 I/O 08/15/16 08/15/16 08/15/16 08/16/16 08/16/16 08/16/16 07:00 15:00 23:00 07:00 15:00 23:00 Intake Total 200 ml 240 ml 120 ml 120 ml Output Total 125 ml Balance 200 ml 115 ml 120 ml 120 ml Intake Oral 200 ml 240 ml 120 ml 120 ml Output Urine Total 125 ml # Voids 4 1 3 4 # Bowel Movements 2 2 3 4 Result Diagram: 08/15/16 0611 Objective Remarks GENERAL: Chronically ill-appearing patient. CARDIOVASCULAR: Regular rate and rhythm without murmur RESPIRATORY: Clear to auscultation. Breath sounds equal bilaterally. No wheezes GASTROINTESTINAL: Abdomen soft, non-tender, nondistended. Multiple draining mid abdomen enterocutaneous fistula but dressing in place and it is d/c/i. No guarding. MUSCULOSKELETAL: Left BKA wound appeared clean and dry. no signs of infection NEUROLOGICAL: Normal speech. SKIN; rash/excoriation on buttock area Procedures Left stump debridement by Dr. Hill on 06/15/16 Medications and IVs Current Medications Medications (Trade) Dose Ordered Sig/Shira Route Start Time Stop Time Status Last Admin (NS Flush) 2 ml BID IV FLUSH 06/14/16 21:00 08/16/16 09:52 (NS Flush) 2 ml UNSCH PRN IV FLUSH 06/14/16 17:00 07/31/16 22:44 (Cardizem Cd) 120 mg DAILY PO 06/15/16 09:00 08/16/16 09:53 (Rocaltrol) 0.25 mcg DAILY PO 06/15/16 09:00 08/16/16 09:53 (Ferrous Sulfate) 325 mg DAILY PO 06/15/16 09:00 08/16/16 09:55 (Neurontin) 100 mg HS PO 06/14/16 21:00 08/15/16 21:48 (Lactinex) 1 tab TID PO 06/14/16 18:00 08/16/16 13:03 (Imodium) 2 mg Q6H PRN PO 06/14/16 17:45 Hold 07/04/16 17:14 (Oscal-D 250-125) 500 mg BID PO 06/14/16 21:00 08/16/16 09:55 (Zofran Odt) 8 mg Q6H PRN PO 06/14/16 18:15 07/08/16 12:37 (Pill Splitter) 1 ea UNSCH PRN OTHER 06/14/16 18:00 (Theragran) 1 tab DAILY PO 06/15/16 12:00 06/20/16 15:16 (Dilaudid Pf Inj) 1 mg Q4H PRN IV PUSH 06/15/16 14:30 08/09/16 21:35 (Heparin Central Flush) 500 units UNSCH IVF 06/20/16 11:30 06/24/16 05:25 (NS Flush) 5 ml UNSCH PRN IVF 06/20/16 11:30 (Heparin Central Flush) 250 units UNSCH PRN IVF 06/20/16 11:30 07/26/16 14:54 (Xarelto) 20 mg DAILY PO 06/21/16 09:00 08/16/16 09:55 (Protonix) 40 mg BID PO 07/09/16 21:00 08/16/16 09:55 (Zofran Inj) 4 mg Q6HR PRN IV PUSH 07/09/16 16:45 08/14/16 12:44 (Mag-Al Plus Susp Liq) 30 ml Q6H PRN PO 07/09/16 16:45 08/16/16 09:53 (Magic Mouthwash Adult Liq) 10 ml QID SWISH-SWAL 07/10/16 19:00 08/16/16 13:03 (Tylenol) 650 mg Q4H PRN PO 07/11/16 05:45 07/29/16 13:58 Nystatin 1 applic 1 applic Q12HR TOPICAL 07/11/16 12:00 08/16/16 09:57 (Vancomycin Consult Pharmacy) 0 ml @ 0 mls/hr UNSCH OTHER 07/11/16 10:15 08/16/16 23:00 (Mag-Ox) 400 mg Q12HR PO 07/13/16 13:45 08/16/16 09:54 Collagenase 1 applic 1 applic DAILY TOP 07/14/16 13:15 08/15/16 08:24 Multivitamins 10 ml/Folic Acid 1 mg/Amino Acid Electrolyte w/ Calc 2,010.2 ml @ 60 mls/hr Q24H IV-CENTRAL 07/15/16 20:00 08/15/16 21:49 (Liposyn Iii 20% Inj) 250 ml @ 31.25 mls/ hr SuWe@20 IV-CENTRAL 07/16/16 20:00 08/13/16 22:50 (Zoloft) 150 mg DAILY PO 07/17/16 09:00 08/16/16 09:55 ([place] 7.5-325 Mg) 1 tab Q4H PRN PO 07/16/16 11:00 08/15/16 23:18 ([place] 10-325 Mg) 1.5 tab Q4H PRN PO 07/16/16 11:00 08/15/16 15:16 (Narcan Inj) 0.4 mg UNSCH PRN IV 07/16/16 11:00 (Benadryl Liq) 12.5 mg Q6H PRN PO 07/16/16 17:00 08/14/16 21:17 Metoclopramide HCl 5 mg 5 mg Q8H PRN IV PUSH 07/23/16 12:30 (Vancomycin Inj/ NS 250 ml Inj) 275 ml @ 250 mls/hr Q18H IV 07/25/16 23:00 08/16/16 23:00 08/15/16 23:18 (Ilotycin 0.5% Opth Oint) 1 applic Q8HR LEFT EYE 07/25/16 22:00 08/16/16 13:05 (Pred Forte 1% Opth Susp) 1 drop BID LEFT EYE 07/25/16 21:00 08/16/16 09:58 (Xanax) 0.25 mg Q8HR PO 07/26/16 14:00 08/16/16 13:03 (Remeron Soltab Odt) 15 mg HS PO 07/29/16 21:00 08/15/16 21:00 (Calamine Lotion) 1 applic Q8H PRN TOPICAL 07/31/16 13:30 08/06/16 11:22 (Zinc Sulfate) 220 mg DAILY PO 08/04/16 11:00 08/16/16 09:53 (Megace Liq) 800 mg DAILY PO 08/04/16 12:00 08/16/16 09:53 (Bactroban 2% Oint) 1 applic Q12HR TOPICAL 08/13/16 21:00 08/16/16 09:56 (Desitin 40% Oint) 1 applic UNSCH PRN TOPICAL 08/13/16 14:15 08/13/16 22:52 (Dolophine) 2.5 mg DAILY PO 08/14/16 09:00 08/16/16 09:54 (Questran 4 Gm Pkt) 4 gm Q12H PO 08/14/16 23:00 (Prinivil) 40 mg DAILY PO 08/17/16 09:00 Urinary Catheter: Yes Assessment to: Continue A/P Problem List: (1) Infection of amputation stump ICD Code: T87.40 Status: Resolved (2) 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 (3) Hypercoagulable state ICD Code: D68.59 Status: Chronic (4) HTN (hypertension) ICD Code: I10 Status: Chronic (5) Anxiety about health ICD Code: F41.8 Status: Chronic (6) Diarrhea ICD Code: R19.7 Status: Chronic (7) Severe protein-calorie malnutrition ICD Code: E43 Status: Acute (8) Fungal skin infection ICD Code: B36.9 Status: Resolved (9) Transient lingual papillitis ICD Code: K14.0 Status: Resolved (10) Hospital acquired PNA ICD Code: J18.9 Status: Resolved (11) Major depressive disorder, recurrent severe without psychotic features ICD Code: F33.2 Status: Chronic (12) Disseminated herpes zoster ICD Code: B02.7 Status: Resolved (13) Hypokalemia ICD Code: E87.6 Status: Resolved Assessment and Plan The patient is a 70-year-old female with a medical history significant for ischemic bowel with resection in Oct 2015 and development of chronic enterocutaneous fistula, asthma, depression, COPD, severe peripheral vascular disease status post left BKA, multiple hospitalizations and readmissions. The patient was discharged from the hospital on 06/06/16 to a custodial facility for rehabilitation. The stitches on the left stump were taken out 2 weeks ago. She reports that the wound has been opening up when she participated with physical therapy. She returned due to wound dehiscence and infection. Patient has since developed an unusual rash and staff Hominis bacteremia -Staph Hominis bacteremia -Perioral, periorbital lesions- ID following, Dr. Greenfield. Continue Vancomycin for Staph hominis, give 4 weeks , end date 08/16 Continue Invanz for the Morganella in UC - plan at least 14 days - to finish 08/13 -Patient completed treatment with Valtrex. Rash: Unusual appearance and presentation, neg for herpes, biopsy inconclusive. Possibly related to zinc deficiency. - Zinc could not be added to TPN per pharmacy. on oral zinc sulfate replacement. - Continue zinc oxide paste to buttock -Enterocutaneous fistula. per surgery, no further surgical intervention. Optimize nutrition with PO and TPN. wound care. -Malnutrition: Diarrhea-likely secondary to short gut syndrome, C diff negative. give dose of Imodium. monitor. repeat C. Diff - continue to monitor - on TPN for nutritional support -Continue Megace to stimulate appetite. -Infected left BKA stump: Patient status post BKA on 05/02/16. Dr. Hill ff. S/P debridement- dry -. Wound cultures growing Klebsiella ESBL positive and Morganella s/p tx with zerbaxa - Dilaudid IV for breakthrough pain. Continue Percocet. - on Methadone 5mg po q12, decreased to 2.5 mg BID and now daily. - vascular surgery s/p wound vac and removal, wound appears clean. abx per ID. -Fungal rash/groin - cont local antifungal -Hypercoagulable state: History of ischemic bowel and severe peripheral vascular disease. - Continue Xarelto -Anxiety and depression: -more feisty. no outbursts of crying on Seroquel and Zoloft. Refused Cymbalta. Continue Remeron. palliative care for support, pain control, -COPD: Breathing treatments as needed. Stable. -Severe protein-calorie malnutrition- Patient currently on TPN and being followed by dietitian. Ensure 1 can by mouth 3 times a day. -Skin care. She has excoriated skin over the buttock. Continue anti-fungal cream/zinc oxide/added mupirocin. Discussed with RN to replace rectal tube if/ when diarrhea start again. currently pt would like to try to be without guevara and rectal bag -GERD: Continue PPI Hypokalemia -improved. continue to monitor -Pulmonary nodule. Rpt CT in 6 mos. Patient previously counseled about this finding and the need to follow-up. - Hypokalemia: Due to poor oral intake. Resolved. Continue to monitor and replete as necessary. - Hypotension: Treated with IV normal saline bolus. Now resolved. - Uncontrolled Hypertension: Patient now with BP in the 150's - 160's. I will increase Lisinopril to 40 mg po daily. continue to monitor bp. Add clonidine PRN. GI prophylaxis: PPI. DVT PPx: Xarelto Discharge Planning DC pending clinical improvement. See case management note for detail. Multiple barriers to discharge to custodial facility. Per vascular surgery, patient needs to remain on TPN. Problem Qualifiers (1) HTN (hypertension): Qualified Code: I10 - Essential hypertension (2) Diarrhea: Qualified Code: R19.7 - Diarrhea, unspecified type Jeff Carey MD Aug 16, 2016 14:52
[2016-08-16 16:00] VITALS: BP 119/65; PULSE 75; RESP 20; TEMP 95.9; O2SAT 93
[2016-08-16] MEDS: VANCOMYCIN INJ 1,250 MG in SODIUM CHLOR 0.9% 250 ML INJ 250 ML IV SCH (16:56)
[2016-08-16 19:58] VITALS: BP 129/60; PULSE 68; RESP 18; TEMP 96.4; O2SAT 92
[2016-08-16] MEDS: CLINIMIX E 5/25 2000 mL- >42 mls/hr IV-CENTRAL SCH ×3 (22:34)
[2016-08-16] MEDS: FAT EMULSION 20% INJ 250 ML (Twice weekly over 8 hours) IV-CENTRAL SCH (22:34)
[2016-08-16] MEDS: GABAPENTIN 100 MG CAP PO SCH (23:32)
[2016-08-16] MEDS: MIRTAZAPINE ODT 15 MG TAB PO SCH (23:33)
[2016-08-17] VITALS (7 sets, daily range): BP systolic 106–174; BP diastolic 72–80; PULSE 65–88; RESP 16–20; TEMP 96.3–99.2; O2SAT 93–97
[2016-08-17] MEDS: ERYTHROMYCIN 0.5% OPTH OINT 3.5 GM TUBO LEFT EYE SCH ×3 (06:00→22:03)
[2016-08-17] MEDS: ALPRAZolam 0.25 MG TAB PO SCH ×3 (06:32→22:01)
[2016-08-17] MEDS: NYSTAT/DIPHENHY/LIDO MOUTHWASH (Adult) 120ML SWISH-SWAL SCH ×4 (09:00→19:34)
[2016-08-17] MEDS: MEGESTROL ACETATE SUSP 400 MG/10 ML CUP PO SCH (09:00)
[2016-08-17] MEDS: SODIUM CHLORIDE 0.9% FLUSH 5 ML FLUSH IV FLUSH SCH ×2 (09:05→22:01)
[2016-08-17] MEDS: MULTIVITAMIN TAB PO SCH (09:06)
[2016-08-17] MEDS: DILTIAZEM-CD 120 MG CAP ER PO SCH (09:06)
[2016-08-17] MEDS: CALCIUM/VITAMIN D 250 MG/125 U TAB PO SCH ×2 (09:06→22:00)
[2016-08-17] MEDS: LACTOBACILLUS ACIDOPHILUS TAB PO SCH ×3 (09:06→18:19)
[2016-08-17] MEDS: PANTOPRAZOLE SOD 20 MG DELAYED RELEASE TAB PO SCH ×2 (09:07→22:00)
[2016-08-17] MEDS: FERROUS SULFATE 325 MG (65 MG ELEMENTAL IRON) TAB PO SCH (09:07)
[2016-08-17] MEDS: RIVAROXABAN 20 MG TAB PO SCH (09:07)
[2016-08-17] MEDS: LISINOPRIL 20 MG TAB PO SCH (09:08)
[2016-08-17] MEDS: ZINC SULFATE 220 MG CAP PO SCH (09:08)
[2016-08-17] MEDS: MAGNESIUM OXIDE 400 MG TAB PO SCH ×2 (09:09→22:00)
[2016-08-17] MEDS: SERTRALINE HCL 100 MG TAB PO SCH (09:09)
[2016-08-17] MEDS: METHADONE HCL 10 MG TAB PO SCH (09:10)
[2016-08-17] MEDS: MUPIROCIN 2% OINT 22 GM TUBE TOPICAL SCH ×2 (09:14→22:03)
[2016-08-17] MEDS: NYSTATIN 100,000 U/GM PWD 15 GM BTL TOPICAL SCH ×2 (09:14→22:06)
[2016-08-17] MEDS: prednisoLONE ACETATE 1% OPHT SUSP 5 ML BTL LEFT EYE SCH ×2 (09:15→22:03)
[2016-08-17] MEDS: CALCITRIOL 0.25 MCG CAP PO SCH (09:15)
[2016-08-17] MEDS: COLLAGENASE OINT 30 GM TUBE TOP SCH (09:16)
[2016-08-17] MEDS: CHOLESTYRAMINE 4 GM PACKET PO SCH ×3 (10:19→22:05)
[2016-08-17] MEDS: ACETAMINOPHEN/HYDROcodone 325 MG/7.5 MG TAB PO PRN ×2 (16:01→23:30)
[2016-08-17] MEDS: MIRTAZAPINE ODT 15 MG TAB PO SCH (21:00)
[2016-08-17] MEDS: CLINIMIX E 5/25 2000 mL- >42 mls/hr IV-CENTRAL SCH ×3 (22:01)
[2016-08-17] MEDS: GABAPENTIN 100 MG CAP PO SCH (22:01)
[2016-08-18 00:37] VITALS: BP 131/71; PULSE 74; RESP 16; TEMP 97.6; O2SAT 95
[2016-08-18 04:00] VITALS: BP 126/72; PULSE 72; RESP 16; TEMP 98.4; O2SAT 96
[2016-08-18] MEDS: ALPRAZolam 0.25 MG TAB PO SCH ×3 (05:15→22:00)
[2016-08-18] MEDS: ACETAMINOPHEN/HYDROcodone 325 MG/7.5 MG TAB PO PRN (05:16)
[2016-08-18] MEDS: ERYTHROMYCIN 0.5% OPTH OINT 3.5 GM TUBO LEFT EYE SCH ×3 (05:19→20:17)
[2016-08-18] MEDS: COLLAGENASE OINT 30 GM TUBE TOP SCH (09:00)
[2016-08-18] MEDS: NYSTATIN 100,000 U/GM PWD 15 GM BTL TOPICAL SCH ×2 (09:00→20:17)
[2016-08-18] MEDS: SODIUM CHLORIDE 0.9% FLUSH 5 ML FLUSH IV FLUSH SCH ×2 (09:00→20:16)
[2016-08-18] MEDS: MAGNESIUM OXIDE 400 MG TAB PO SCH ×2 (09:03→20:15)
[2016-08-18] MEDS: MULTIVITAMIN TAB PO SCH (09:03)
[2016-08-18] MEDS: LISINOPRIL 20 MG TAB PO SCH (09:03)
[2016-08-18] MEDS: PANTOPRAZOLE SOD 20 MG DELAYED RELEASE TAB PO SCH ×2 (09:03→20:15)
[2016-08-18] MEDS: SERTRALINE HCL 100 MG TAB PO SCH (09:04)
[2016-08-18] MEDS: CALCIUM/VITAMIN D 250 MG/125 U TAB PO SCH ×2 (09:04→20:15)
[2016-08-18] MEDS: DILTIAZEM-CD 120 MG CAP ER PO SCH (09:04)
[2016-08-18] MEDS: FERROUS SULFATE 325 MG (65 MG ELEMENTAL IRON) TAB PO SCH (09:05)
[2016-08-18] MEDS: MEGESTROL ACETATE SUSP 400 MG/10 ML CUP PO SCH (09:06)
[2016-08-18] MEDS: METHADONE HCL 10 MG TAB PO SCH (09:06)
[2016-08-18] MEDS: LACTOBACILLUS ACIDOPHILUS TAB PO SCH ×3 (09:07→17:54)
[2016-08-18] MEDS: prednisoLONE ACETATE 1% OPHT SUSP 5 ML BTL LEFT EYE SCH ×2 (09:07→20:16)
[2016-08-18] MEDS: NYSTAT/DIPHENHY/LIDO MOUTHWASH (Adult) 120ML SWISH-SWAL SCH (09:12)
[2016-08-18] MEDS: MUPIROCIN 2% OINT 22 GM TUBE TOPICAL SCH ×2 (09:13→20:16)
[2016-08-18] MEDS ORDERED: CLINIMIX E 5/25 2000 mL- >42 mls/hr IV-CENTRAL SCH ×3 (10:00)
[2016-08-18] MEDS: ONDANSETRON ODT 4 MG TAB PO PRN (10:25)
[2016-08-18] MEDS: ACETAMINOPHEN/HYDROcodone 325 MG/10 MG TAB PO PRN (10:26)
[2016-08-18] MEDS: CHOLESTYRAMINE 4 GM PACKET PO SCH ×2 (11:00→22:00)
--- NOTE | 2016-08-18 11:58 | HHI.PR ---
Subjective Remarks 71 year-old female who originally presented to the hospital because of this adhesion is of left lower extremity stump. Patient was originally admitted to Dr. surgery service and underwent debridement and wound VAC placement. Patient did have multiple organisms to include Klebsiella oxytoca, Morganella morganii infection. Patient with history of antibiotics and did resolve. Upon initial presentation patient also had a consultation with medical team for management. Patient has undergone significant treatments, developed bacteremia with Staphylococcus hominis, infectious disease and manage the patient and patient has clinically finished all antibiotics. The patient with significant abdominal abnormalities to include short gut syndrome from previous abdominal surgeries. She is on TPN at this time for nutrition. As indicated in case management notes that the patient is unable replace a residential facility because there is litigation at other facilities that she has initiated. For those reasons patient was transferred to [place] for long- term care. Upon evaluating the patient she states that she ate dinner last night. I counseled her extensively on the need to eat more food so we can get her off the TPN. Patient should not be on prolonged TPN. Patient is also hoping to be old get up and start ambulating. Objective Vitals Vital Signs Date Time Temp Pulse Resp B/P Pulse Ox O2 Delivery O2 Flow Rate FiO2 08/18/16 04:00 98.4 72 16 126/72 96 08/18/16 00:37 97.6 74 16 131/71 95 08/17/16 20:09 98.4 71 16 106/72 94 08/17/16 19:33 97 08/17/16 19:00 Room Air 08/17/16 15:18 98.5 65 18 149/72 97 08/17/16 12:00 99.0 82 20 157/72 93 I/O 08/17/16 08/17/16 08/17/16 08/18/16 08/18/16 08/18/16 07:00 15:00 23:00 07:00 15:00 23:00 Intake Total 1051 ml 360 ml 1411 ml 1111 ml Output Total 1 ml Balance 1051 ml 360 ml 1410 ml 1111 ml Intake Oral 120 ml 360 ml 720 ml 480 ml IV Total 681 ml 631 ml TPN/PPN 691 ml Lipid 250 ml Stool Total 1 ml # Voids 6 3 4 3 # Bowel Movements 1 1 2 2 Result Diagram: 08/15/16 0611 Objective Remarks GENERAL: Well-developed, cachectic 6, in no acute distress. alert and orientated HEENT: Head is normocephalic without any lesions or masses noted. Facial features are symmetric. Eyes: Pupils equal round reactive to light. Extraocular muscles are intact. Conjunctivae were clear. Oropharyngeal: Pharynx without any erythema edema. Tongue is midline without deviation. Buccal mucosa is moist without any masses or lesions NECK: Supple without any masses. Trachea midline no deviation. No JVD, no bruits are appreciated CARDIAC: Regular rhythm, regular rate. S1/S2 are heard. No murmurs gallops or rubs. LUNGS: Clear to auscultation bilaterally. No wheeze, rhonchi or rales. No use of accessory muscles on inspiration or expiration. ABDOMEN: Soft, nontender. Nondistended. Bowel sounds heard in all 4 quadrants. No organomegaly or masses. Negative rebound, negative guarding EXTREMITIES: No edema, pulses are equal bilaterally. No cyanosis or clubbing. Left lower extremity stump noted without any wounds or infection NEUROLOGY: Mood and affect appear appropriate. Cranial nerves II through XII grossly intact. Moving all extremities, speech is clear Procedures Left stump debridement by Dr. Hill on 06/15/16 Urinary Catheter: No Vascular Central Line Catheter: Yes Assessment to: Continue A/P Assessment and Plan Malnutrition: Severe protein-calorie malnutrition C diff negative. TPN for nutritional support Continue Megace to stimulate appetite. And Nutritional supplements Diarrhea-likely secondary to short gut syndrome, Patient refusing cholestyramine Pain control Patient still on increased pain medications Methadone 2.5 mg daily Start Lortab 5 mg every 6 hours as needed for pain 610 [place] 7.5 every 4 hours for pain 15 discontinue today [place] 10 1.5 tabs every 4 hours as needed for pain 610, discontinue today Dilaudid 1 mg IV for breakthrough pain, discontinue today Hypertension Cardizem CD 120 mg daily Lisinopril 40 mg daily Staph Hominis bacteremia, treated ID following, Dr. Greenfield. 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 Dr. Hill ff. S/P debridement- dry, treated Wound cultures growing Klebsiella ESBL positive and Morganella finished treatment with zerbaxa Rash: Unusual appearance and presentation, neg for herpes, biopsy inconclusive. Possibly related to zinc deficiency. Improved - Zinc could not be added to TPN per pharmacy. on oral zinc sulfate replacement. - Continue zinc oxide paste to buttock Enterocutaneous fistula. Chronic per surgery, no further surgical intervention. Optimize nutrition with PO and TPN. wound care. Hypercoagulable state: Chronic and stable History of ischemic bowel and severe peripheral vascular disease. Continue Xarelto Anxiety and depression: Stable Continue Seroquel and Zoloft. Continue Remeron. -COPD: Breathing treatments as needed. Stable. Pulmonary nodule. Repeat CT recommended in 6 mos. Patient previously counseled about this finding and the need to follow-up. GI protection secondary for prolonged hospitalization Protonix DVT prevention Chase Stevens Aug 18, 2016 11:58
[2016-08-18] MEDS: CALCITRIOL 0.25 MCG CAP PO SCH (15:14)
[2016-08-18] MEDS: ZINC SULFATE 220 MG CAP PO SCH (15:14)
[2016-08-18] MEDS: RIVAROXABAN 20 MG TAB PO SCH (15:14)
[2016-08-18 20:00] VITALS: BP 122/70; PULSE 70; RESP 18; TEMP 98; O2SAT 96
[2016-08-18] MEDS: MIRTAZAPINE ODT 15 MG TAB PO SCH (20:14)
[2016-08-18] MEDS: ACETAMINOPHEN/HYDROcodone 325 MG/5 MG TAB PO PRN (20:14)
[2016-08-18] MEDS: GABAPENTIN 100 MG CAP PO SCH (20:15)
[2016-08-19] MEDS: ERYTHROMYCIN 0.5% OPTH OINT 3.5 GM TUBO LEFT EYE SCH ×3 (06:00→21:12)
[2016-08-19] MEDS: ALPRAZolam 0.25 MG TAB PO SCH ×3 (06:19→21:08)
[2016-08-19 07:33] LABS: BASOPHIL # 0.1 TH/MM3 (0-0.2); BASOPHIL % 1.2 % (0.0-2.0); CHLORIDE 110 MEQ/L (98-107); EOSINOPHIL # 0.8 TH/MM3 (0-0.4); EOSINOPHIL % 10.7 % (0.0-4.0); HEMATOCRIT 31.7 % (35.0-46.0); HEMO FLAGS DIFF FINAL; LYMPH % 39.5 % (9.0-44.0); MEAN CELL VOLUME 94.1 FL (80.0-100.0); MEAN CORPUSCULAR HEMOGLOBIN 30.4 PG (27.0-34.0); MEAN CORPUSCULAR HGB CONC 32.2 % (32.0-36.0); MONO % 8.8 % (0.0-8.0); NEUT % 39.8 % (16.0-70.0); PLATELET COUNT 417 TH/MM3 (150-450); POTASSIUM 3.5 MEQ/L (3.5-5.1); RED BLOOD COUNT 3.36 MIL/MM3 (4.00-5.30); RED CELL DISTRIBUTION WIDTH 16.3 % (11.6-17.2); SODIUM (NA) 143 MEQ/L (136-145); WHITE BLOOD COUNT 7.6 TH/MM3 (4.0-11.0)
[2016-08-19 07:38] LABS: BLOOD UREA NITROGEN 22 MG/DL (7-18)
[2016-08-19 07:40] LABS: ANION GAP 6 MEQ/L (5-15)
[2016-08-19 07:41] LABS: ALT (GPT) 12 U/L (10-53); AST (GOT) 15 U/L (15-37); GLOMERULAR FILTRATION RATE 80 ML/MIN (>89)
[2016-08-19 07:42] LABS: TOTAL BILIRUBIN ADULT 0.1 MG/DL (0.2-1.0)
[2016-08-19 07:43] LABS: ALKALINE PHOSPHATASE 113 U/L (45-117)
[2016-08-19 08:02] VITALS: BP 160/77; PULSE 80; RESP 20; TEMP 98.2; O2SAT 96
[2016-08-19] MEDS: MULTIVITAMIN TAB PO SCH (08:26)
[2016-08-19] MEDS: LISINOPRIL 20 MG TAB PO SCH (08:26)
[2016-08-19] MEDS: METHADONE HCL 10 MG TAB PO SCH (08:26)
[2016-08-19] MEDS: LACTOBACILLUS ACIDOPHILUS TAB PO SCH ×3 (08:26→18:10)
[2016-08-19] MEDS: SERTRALINE HCL 100 MG TAB PO SCH (08:27)
[2016-08-19] MEDS: RIVAROXABAN 20 MG TAB PO SCH (08:27)
[2016-08-19] MEDS: DILTIAZEM-CD 120 MG CAP ER PO SCH (08:27)
[2016-08-19] MEDS: FERROUS SULFATE 325 MG (65 MG ELEMENTAL IRON) TAB PO SCH (08:27)
[2016-08-19] MEDS: PANTOPRAZOLE SOD 20 MG DELAYED RELEASE TAB PO SCH ×2 (08:28→21:08)
[2016-08-19] MEDS: CALCITRIOL 0.25 MCG CAP PO SCH (08:28)
[2016-08-19] MEDS: CALCIUM/VITAMIN D 250 MG/125 U TAB PO SCH ×2 (08:28→21:08)
[2016-08-19] MEDS: MAGNESIUM OXIDE 400 MG TAB PO SCH ×2 (08:28→21:08)
[2016-08-19] MEDS: MEGESTROL ACETATE SUSP 400 MG/10 ML CUP PO SCH (08:28)
--- NOTE | 2016-08-19 08:33 | HHI.PR ---
Subjective Remarks Patient seen and examined today. Patient states that she is eating more. Patient is not taking the cholestyramine because she states that it tastes like a sewer hand Objective Vitals Vital Signs Date Time Temp Pulse Resp B/P Pulse Ox O2 Delivery O2 Flow Rate FiO2 08/18/16 21:14 18 08/18/16 20:00 98.0 70 18 122/70 96 08/18/16 10:06 20 I/O 08/18/16 08/18/16 08/18/16 08/19/16 08/19/16 08/19/16 07:00 15:00 23:00 07:00 15:00 23:00 Intake Total 1111 ml Balance 1111 ml Intake Oral 480 ml IV Total 631 ml # Voids 3 # Bowel Movements 2 Result Diagram: 08/19/16 0710 08/19/16 0710 Objective Remarks GENERAL: Well-developed, cachectic 6, in no acute distress. alert and orientated HEENT: Head is normocephalic without any lesions or masses noted. Facial features are symmetric. Eyes: Pupils equal round reactive to light. Extraocular muscles are intact. Conjunctivae were clear. Oropharyngeal: Pharynx without any erythema edema. Tongue is midline without deviation. Buccal mucosa is moist without any masses or lesions NECK: Supple without any masses. Trachea midline no deviation. No JVD, no bruits are appreciated CARDIAC: Regular rhythm, regular rate. S1/S2 are heard. No murmurs gallops or rubs. LUNGS: Clear to auscultation bilaterally. No wheeze, rhonchi or rales. No use of accessory muscles on inspiration or expiration. ABDOMEN: Soft, nontender. Nondistended. Bowel sounds heard in all 4 quadrants. No organomegaly or masses. Negative rebound, negative guarding EXTREMITIES: No edema, pulses are equal bilaterally. No cyanosis or clubbing. Left lower extremity stump noted without any wounds or infection NEUROLOGY: Mood and affect appear appropriate. Cranial nerves II through XII grossly intact. Moving all extremities, speech is clear Procedures Left stump debridement by Dr. Hill on 06/15/16 Urinary Catheter: No Vascular Central Line Catheter: No A/P Assessment and Plan Malnutrition: Severe protein-calorie malnutrition C diff negative. TPN for nutritional support Continue Megace to stimulate appetite and Nutritional supplements Diarrhea-likely secondary to short gut syndrome, Patient refusing cholestyramine due to taste, will discontinue Start Imodium Pain control Patient still on increased pain medications Methadone 2.5 mg daily Lortab 5 mg every 6 hours as needed for pain 610 Deconditioning Continue PT/OT during the patient's stay in the hospital Hypertension Cardizem CD 120 mg daily Lisinopril 40 mg daily Staph Hominis bacteremia, treated ID following, Dr. Greenfield. 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 Dr. Sergio kuo. S/P debridement- dry, treated Wound cultures growing Klebsiella ESBL positive and Morganella finished treatment with zerbaxa Rash: Unusual appearance and presentation, neg for herpes, biopsy inconclusive. Possibly related to zinc deficiency. Improved - Zinc could not be added to TPN per pharmacy. on oral zinc sulfate replacement. - Continue zinc oxide paste to buttock Enterocutaneous fistula. Chronic per surgery, no further surgical intervention. Optimize nutrition with PO and TPN. wound care. Hypercoagulable state: Chronic and stable History of ischemic bowel and severe peripheral vascular disease. Continue Xarelto Anxiety and depression: Stable Continue Seroquel and Zoloft. Continue Remeron. COPD: Stable. Patient with good O2 sats on room air Patient has not required any breathing treatments Pulmonary nodule. Repeat CT recommended in 6 mos. Patient previously counseled about this finding and the need to follow-up. GI protection secondary for prolonged hospitalization Protonix DVT prevention Xarelto Discharge Planning 08/17/16 No new updated at this. Pt is a difficult placement due to previous history and is currently on TPN. Pt still without placement. BIN placed a call to [facility], they still have not called back with decision BIN asked them to please call back with decision one way or another. Pt remains without an accepting facility for placement. Pt requiring TPN for an extended period of time. BIN having a difficult time placing this pt because of the senior care TPN and due to the pt bringing legal litigation against several of the SNF's in this area. BIN spoke to Mariah again at [facility] she stated it's still in the Director of nurses hands to determine if pt accepted. BIN placed f/u call again to Mariah on 07/21/16@ 10:10am to check acceptance/denial status.no response at this time. [facility] is still stating they will accept pt back once TPN completed. BIN did make Radha Sorensen pg CM aware of this issue. Pt is a transfer from [facility]([phone]). Pt was short term, per Singh asked her to determine if pt can pt ok to return upon d/c if she is not on TPN. Spoke to MD pt will be on TPN upon for a very long time. Dania CORONADO spoke to multiple Nursing homes they all declined this patient due to situation alligations from prev nursing homes, or due to NH not being able to provide TPN. Chase Anne Aug 19, 2016 08:33
[2016-08-19] MEDS: prednisoLONE ACETATE 1% OPHT SUSP 5 ML BTL LEFT EYE SCH ×2 (08:35→21:08)
[2016-08-19] MEDS: SODIUM CHLORIDE 0.9% FLUSH 5 ML FLUSH IV FLUSH SCH ×2 (08:36→21:07)
[2016-08-19] MEDS: MUPIROCIN 2% OINT 22 GM TUBE TOPICAL SCH ×2 (09:00→21:11)
[2016-08-19] MEDS: NYSTATIN 100,000 U/GM PWD 15 GM BTL TOPICAL SCH ×2 (09:00→21:11)
[2016-08-19] MEDS: COLLAGENASE OINT 30 GM TUBE TOP SCH (09:00)
[2016-08-19 12:00] VITALS: BP 156/68; PULSE 72; RESP 18; TEMP 97.5
[2016-08-19 20:00] VITALS: BP 116/69; PULSE 75; RESP 18; TEMP 98.1; O2SAT 96
[2016-08-19] MEDS: CLINIMIX E 5/25 2000 mL- >42 mls/hr IV-CENTRAL SCH ×3 (21:07)
[2016-08-19] MEDS: MIRTAZAPINE ODT 15 MG TAB PO SCH (21:08)
[2016-08-19] MEDS: GABAPENTIN 100 MG CAP PO SCH (21:08)
[2016-08-20] MEDS: ALPRAZolam 0.25 MG TAB PO SCH ×3 (06:51→20:24)
[2016-08-20] MEDS: ERYTHROMYCIN 0.5% OPTH OINT 3.5 GM TUBO LEFT EYE SCH ×3 (06:51→20:22)
[2016-08-20 08:02] VITALS: BP 136/72; PULSE 78; RESP 16; TEMP 99.5; O2SAT 98
--- NOTE | 2016-08-20 08:17 | HHI.PR ---
Subjective Remarks Patient seen and examined today. Patient states that she is eating more. She did have 3 bowel movements last evening. According to EMR documentation patient is losing weight again. Objective Vitals Vital Signs Date Time Temp Pulse Resp B/P Pulse Ox O2 Delivery O2 Flow Rate FiO2 08/19/16 20:00 96 Room Air 08/19/16 20:00 98.1 75 18 116/69 96 08/19/16 16:56 Room Air 2.00 21 08/19/16 12:00 97.5 72 18 156/68 I/O 08/19/16 08/19/16 08/19/16 08/20/16 08/20/16 08/20/16 07:00 15:00 23:00 07:00 15:00 23:00 Intake Total 240 ml 575 ml Output Total 350 ml Balance -110 ml 575 ml TPN/PPN 240 ml 575 ml Output Urine Total 350 ml # Voids 2 1 # Bowel Movements 2 1 Result Diagram: 08/19/16 0710 08/19/16 0710 Objective Remarks GENERAL: Well-developed, cachectic 6, in no acute distress. alert and orientated HEENT: Head is normocephalic without any lesions or masses noted. Facial features are symmetric. Eyes: Pupils equal round reactive to light. Extraocular muscles are intact. Conjunctivae were clear. Oropharyngeal: Pharynx without any erythema edema. Tongue is midline without deviation. Buccal mucosa is moist without any masses or lesions NECK: Supple without any masses. Trachea midline no deviation. No JVD, no bruits are appreciated CARDIAC: Regular rhythm, regular rate. S1/S2 are heard. No murmurs gallops or rubs. LUNGS: Clear to auscultation bilaterally. No wheeze, rhonchi or rales. No use of accessory muscles on inspiration or expiration. ABDOMEN: Soft, nontender. Nondistended. Bowel sounds heard in all 4 quadrants. No organomegaly or masses. Negative rebound, negative guarding EXTREMITIES: No edema, pulses are equal bilaterally. No cyanosis or clubbing. Left lower extremity stump noted without any wounds or infection NEUROLOGY: Mood and affect appear appropriate. Cranial nerves II through XII grossly intact. Moving all extremities, speech is clear Procedures Left stump debridement by Dr. Hill on 06/15/16 Urinary Catheter: No Vascular Central Line Catheter: Yes ([facility]) Assessment to: Continue Date of Insertion: Jun 20, 2016 Side: Left A/P Assessment and Plan Malnutrition: Severe protein-calorie malnutrition C diff negative. TPN for nutritional support Continue Megace to stimulate appetite and Nutritional supplements Documented continue weight loss, consult dietary for further recommendations Diarrhea-likely secondary to short gut syndrome, Continue Imodium Pain control Patient has not required any breakthrough pain medications in 2 days Methadone 2.5 mg daily, discontinue today Lortab 5 mg every 6 hours as needed for pain 610 Deconditioning Continue PT/OT during the patient's stay in the hospital Hypertension Cardizem CD 120 mg daily Lisinopril 40 mg daily Staph Hominis bacteremia, treated ID following, Dr. Greenfield. 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 Dr. Sergio kuo. S/P debridement- dry, treated Wound cultures growing Klebsiella ESBL positive and Morganella finished treatment with zerbaxa Rash: Unusual appearance and presentation, neg for herpes, biopsy inconclusive. Possibly related to zinc deficiency. Improved - Zinc could not be added to TPN per pharmacy. on oral zinc sulfate replacement. - Continue zinc oxide paste to buttock Enterocutaneous fistula. Chronic per surgery, no further surgical intervention. Optimize nutrition with PO and TPN. wound care. Hypercoagulable state: Chronic and stable History of ischemic bowel and severe peripheral vascular disease. Continue Xarelto Anxiety and depression: Stable Continue Seroquel and Zoloft. Continue Remeron. COPD: Stable. Patient with good O2 sats on room air Patient has not required any breathing treatments Pulmonary nodule. Repeat CT recommended in 6 mos. Patient previously counseled about this finding and the need to follow-up. GI protection secondary for prolonged hospitalization Protonix DVT prevention Xarelto Discharge Planning 08/17/16 No new updated at this. Pt is a difficult placement due to previous history and is currently on TPN. Pt still without placement. CM placed a call to [facility], they still have not called back with decision CM asked them to please call back with decision one way or another. Pt remains without an accepting facility for placement. Pt requiring TPN for an extended period of time. CM having a difficult time placing this pt because of the [facility] TPN and due to the pt bringing legal litigation against several of the SNF's in this area. BIN spoke to Mariah again at [facility] she stated it's still in the Director of nurses hands to determine if pt accepted. BIN placed f/u call again to Mariah on 07/21/16@ 10:10am to check acceptance/denial status.no response at this time. [facility] is still stating they will accept pt back once TPN completed. BIN did make Radha Sorensen pg CM aware of this issue. Pt is a transfer from [facility] and rehab([phone]). Pt was short term, per Singh asked her to determine if pt can pt ok to return upon d/c if she is not on TPN. Spoke to pt will be on TPN upon for a very long time. Dania CORONADO spoke to multiple Nursing homes they all declined this patient due to situation alligations from prev nursing homes, or due to NH not being able to provide TPN. Chase Anne Aug 20, 2016 08:17
[2016-08-20] MEDS: LACTOBACILLUS ACIDOPHILUS TAB PO SCH ×3 (08:46→17:20)
[2016-08-20] MEDS: CALCITRIOL 0.25 MCG CAP PO SCH (08:46)
[2016-08-20] MEDS: CALCIUM/VITAMIN D 250 MG/125 U TAB PO SCH ×2 (08:46→20:25)
[2016-08-20] MEDS: DILTIAZEM-CD 120 MG CAP ER PO SCH (08:46)
[2016-08-20] MEDS: FERROUS SULFATE 325 MG (65 MG ELEMENTAL IRON) TAB PO SCH (08:46)
[2016-08-20] MEDS: LISINOPRIL 20 MG TAB PO SCH (08:47)
[2016-08-20] MEDS: SODIUM CHLORIDE 0.9% FLUSH 5 ML FLUSH IV FLUSH SCH ×2 (08:53→20:22)
[2016-08-20] MEDS: prednisoLONE ACETATE 1% OPHT SUSP 5 ML BTL LEFT EYE SCH ×2 (08:54→20:22)
[2016-08-20] MEDS: NYSTATIN 100,000 U/GM PWD 15 GM BTL TOPICAL SCH ×3 (09:00→20:22)
[2016-08-20] MEDS: MUPIROCIN 2% OINT 22 GM TUBE TOPICAL SCH ×2 (09:00→20:22)
[2016-08-20] MEDS: COLLAGENASE OINT 30 GM TUBE TOP SCH (09:00)
[2016-08-20] MEDS: MAGNESIUM OXIDE 400 MG TAB PO SCH ×2 (09:07→20:25)
[2016-08-20] MEDS: RIVAROXABAN 20 MG TAB PO SCH (09:08)
[2016-08-20] MEDS: PANTOPRAZOLE SOD 20 MG DELAYED RELEASE TAB PO SCH ×2 (09:08→20:24)
[2016-08-20] MEDS: MEGESTROL ACETATE SUSP 400 MG/10 ML CUP PO SCH (09:08)
[2016-08-20] MEDS: SERTRALINE HCL 100 MG TAB PO SCH (09:08)
[2016-08-20] MEDS: MULTIVITAMIN TAB PO SCH (09:08)
[2016-08-20] MEDS: ACETAMINOPHEN/HYDROcodone 325 MG/5 MG TAB PO PRN ×2 (11:59→20:26)
[2016-08-20 20:00] VITALS: BP 145/75; PULSE 75; RESP 20; TEMP 96.9; O2SAT 96
[2016-08-20] MEDS: CLINIMIX E 5/25 2000 mL- >42 mls/hr IV-CENTRAL SCH ×3 (20:21)
[2016-08-20] MEDS: FAT EMULSION 20% INJ 250 ML (Twice weekly over 8 hours) IV-CENTRAL SCH (20:22)
[2016-08-20] MEDS: ZINC OXIDE 40% OINT 60 GM TUBE TOPICAL PRN (20:22)
[2016-08-20] MEDS: LOPERAMIDE HCL 2 MG CAP PO PRN (20:23)
[2016-08-20] MEDS: MIRTAZAPINE ODT 15 MG TAB PO SCH (20:23)
[2016-08-20] MEDS: GABAPENTIN 100 MG CAP PO SCH (20:23)
[2016-08-21] MEDS: ERYTHROMYCIN 0.5% OPTH OINT 3.5 GM TUBO LEFT EYE SCH ×3 (06:00→21:23)
[2016-08-21] MEDS: ALPRAZolam 0.25 MG TAB PO SCH ×3 (06:06→21:18)
[2016-08-21 08:00] VITALS: BP 190/90; PULSE 79; RESP 21; TEMP 98.4; O2SAT 93
--- NOTE | 2016-08-21 08:13 | HHI.PR ---
Subjective Remarks Patient seen and examined today. Patient states that she is still having pain in her left leg. Patient is tearful about weaning off her pain medication. I discussed with her extensively on the need to wean off high-dose pain medication. She was specifically asking about the IV Dilaudid. She states that [place] does nothing for her pain. Objective Vitals Vital Signs Date Time Temp Pulse Resp B/P Pulse Ox O2 Delivery O2 Flow Rate FiO2 08/20/16 20:00 96.9 75 20 145/75 96 08/20/16 13:19 18 08/20/16 12:25 Room Air 2.00 21 I/O 08/20/16 08/20/16 08/20/16 08/21/16 08/21/16 08/21/16 07:00 15:00 23:00 07:00 15:00 23:00 Intake Total 575 ml 926 ml 692 ml Balance 575 ml 926 ml 692 ml TPN/PPN 575 ml 894 ml 486 ml Lipid 32 ml 206 ml # Voids 1 1 # Bowel Movements 1 7 1 Result Diagram: 08/19/16 0710 08/19/16 0710 Objective Remarks GENERAL: Well-developed, cachectic 6, in no acute distress. alert and orientated HEENT: Head is normocephalic without any lesions or masses noted. Facial features are symmetric. Eyes: Pupils equal round reactive to light. Extraocular muscles are intact. Conjunctivae were clear. Oropharyngeal: Pharynx without any erythema edema. Tongue is midline without deviation. Buccal mucosa is moist without any masses or lesions NECK: Supple without any masses. Trachea midline no deviation. No JVD, no bruits are appreciated CARDIAC: Regular rhythm, regular rate. S1/S2 are heard. No murmurs gallops or rubs. LUNGS: Clear to auscultation bilaterally. No wheeze, rhonchi or rales. No use of accessory muscles on inspiration or expiration. ABDOMEN: Soft, nontender. Nondistended. Bowel sounds heard in all 4 quadrants. No organomegaly or masses. Negative rebound, negative guarding EXTREMITIES: No edema, pulses are equal bilaterally. No cyanosis or clubbing. Left lower extremity stump noted without any wounds or infection NEUROLOGY: Mood and affect appear appropriate. Cranial nerves II through XII grossly intact. Moving all extremities, speech is clear Procedures Left stump debridement by Dr. Hill on 06/15/16 Urinary Catheter: No Vascular Central Line Catheter: Yes Assessment to: Continue Date of Insertion: Jun 20, 2016 Side: Left A/P Assessment and Plan Malnutrition: Severe protein-calorie malnutrition C diff negative. TPN for nutritional support Continue Megace to stimulate appetite and Nutritional supplements Documented continue weight loss, consult dietary for further recommendations Dietitian consulted who indicated that weight loss may be due to inaccurate ins and outs, still recommending current TPN, lipids. Encourage by mouth intake Diarrhea-likely secondary to short gut syndrome, improved Continue Imodium Pain control Patient has not required any breakthrough pain medications in 2 days, so methadone was discontinued, patient still complaining of pain that is not covered by [facility] Ibuprofen 400 mg every 8 hours as needed for pain 15 [place] 5 mg every 6 hours as needed for pain 610, change to Ultram Deconditioning Continue PT/OT during the patient's stay in the hospital Hypertension Cardizem CD 120 mg daily Lisinopril 40 mg daily Staph Hominis bacteremia, treated ID following, Dr. Greenfield. 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 Dr. Hill ff. S/P debridement- dry, treated Wound cultures growing Klebsiella ESBL positive and Morganella finished treatment with zerbaxa Rash: Unusual appearance and presentation, neg for herpes, biopsy inconclusive. Possibly related to zinc deficiency. Improved - Zinc could not be added to TPN per pharmacy. on oral zinc sulfate replacement. - Continue zinc oxide paste to buttock Enterocutaneous fistula. Chronic per surgery, no further surgical intervention. Optimize nutrition with PO and TPN. wound care. Hypercoagulable state: Chronic and stable History of ischemic bowel and severe peripheral vascular disease. Continue Xarelto Anxiety and depression: Stable Continue Seroquel and Zoloft. Continue Remeron. COPD: Stable. Patient with good O2 sats on room air Patient has not required any breathing treatments Pulmonary nodule. Repeat CT recommended in 6 mos. Patient previously counseled about this finding and the need to follow-up. GI protection secondary for prolonged hospitalization Protonix DVT prevention Xarelto Discharge Planning 08/17/16 No new updated at this. Pt is a difficult placement due to previous history and is currently on TPN. Pt still without placement. CM placed a call to [facility], they still have not called back with decision CM asked them to please call back with decision one way or another. Pt remains without an accepting facility for placement. Pt requiring TPN for an extended period of time. CM having a difficult time placing this pt because of the half-way TPN and due to the pt bringing legal litigation against several of the SNF's in this area. BIN spoke to Mariah again at [facility] she stated it's still in the Director of nurses hands to determine if pt accepted. BIN placed f/u call again to Mariah on 07/21/16@ 10:10am to check acceptance/denial status.no response at this time. [facility] is still stating they will accept pt back once TPN completed. BIN did make Radha Sorensen pg CM aware of this issue. Pt is a transfer from [facility] and rehab([phone]). Pt was short term, per Singh asked her to determine if pt can pt ok to return upon d/c if she is not on TPN. Spoke to MD pt will be on TPN upon for a very long time. Dania IVONNE spoke to multiple Nursing homes they all declined this patient due to situation alligations from prev nursing homes, or due to NH not being able to provide TPN. Chase Anne Aug 21, 2016 08:13
[2016-08-21] MEDS: LACTOBACILLUS ACIDOPHILUS TAB PO SCH ×3 (08:46→17:40)
[2016-08-21] MEDS: MEGESTROL ACETATE SUSP 400 MG/10 ML CUP PO SCH (08:46)
[2016-08-21] MEDS: MAGNESIUM OXIDE 400 MG TAB PO SCH ×2 (08:47→21:11)
[2016-08-21] MEDS: PANTOPRAZOLE SOD 20 MG DELAYED RELEASE TAB PO SCH ×2 (08:47→21:11)
[2016-08-21] MEDS: CALCITRIOL 0.25 MCG CAP PO SCH (08:47)
[2016-08-21] MEDS: DILTIAZEM-CD 120 MG CAP ER PO SCH (08:47)
[2016-08-21] MEDS: traMADol HCL 50 MG TAB PO PRN ×3 (08:47→23:04)
[2016-08-21] MEDS: FERROUS SULFATE 325 MG (65 MG ELEMENTAL IRON) TAB PO SCH (08:48)
[2016-08-21] MEDS: SERTRALINE HCL 100 MG TAB PO SCH (08:48)
[2016-08-21] MEDS: MULTIVITAMIN TAB PO SCH (08:48)
[2016-08-21] MEDS: RIVAROXABAN 20 MG TAB PO SCH (08:48)
[2016-08-21] MEDS: SODIUM CHLORIDE 0.9% FLUSH 5 ML FLUSH IV FLUSH SCH ×2 (08:49→21:00)
[2016-08-21] MEDS: CALCIUM/VITAMIN D 250 MG/125 U TAB PO SCH ×2 (08:49→21:12)
[2016-08-21] MEDS: prednisoLONE ACETATE 1% OPHT SUSP 5 ML BTL LEFT EYE SCH ×2 (08:54→21:00)
[2016-08-21] MEDS: LISINOPRIL 20 MG TAB PO SCH (08:57)
[2016-08-21] MEDS: MUPIROCIN 2% OINT 22 GM TUBE TOPICAL SCH ×2 (09:01→21:00)
[2016-08-21] MEDS: COLLAGENASE OINT 30 GM TUBE TOP SCH (09:01)
[2016-08-21] MEDS: NYSTATIN 100,000 U/GM PWD 15 GM BTL TOPICAL SCH ×2 (09:02→21:00)
[2016-08-21] MEDS: LOPERAMIDE HCL 2 MG CAP PO PRN (17:48)
[2016-08-21 21:10] VITALS: BP 136/76; PULSE 76; RESP 18; TEMP 98.3; O2SAT 97
[2016-08-21] MEDS: GABAPENTIN 100 MG CAP PO SCH (21:11)
[2016-08-21] MEDS: MIRTAZAPINE ODT 15 MG TAB PO SCH (21:18)
[2016-08-21] MEDS: CLINIMIX E 5/25 2000 mL- >42 mls/hr IV-CENTRAL SCH ×3 (23:02)
[2016-08-22] MEDS: ERYTHROMYCIN 0.5% OPTH OINT 3.5 GM TUBO LEFT EYE SCH ×3 (06:00→20:09)
[2016-08-22] MEDS: ALPRAZolam 0.25 MG TAB PO SCH ×3 (06:47→20:04)
[2016-08-22 08:00] VITALS: BP 136/79; PULSE 76; RESP 19; TEMP 98.9; O2SAT 95
[2016-08-22] MEDS: SERTRALINE HCL 100 MG TAB PO SCH (08:30)
[2016-08-22] MEDS: MAGNESIUM OXIDE 400 MG TAB PO SCH ×2 (08:30→20:04)
[2016-08-22] MEDS: MEGESTROL ACETATE SUSP 400 MG/10 ML CUP PO SCH (08:30)
[2016-08-22] MEDS: PANTOPRAZOLE SOD 20 MG DELAYED RELEASE TAB PO SCH ×2 (08:30→20:03)
[2016-08-22] MEDS: traMADol HCL 50 MG TAB PO PRN (08:30)
[2016-08-22] MEDS: FERROUS SULFATE 325 MG (65 MG ELEMENTAL IRON) TAB PO SCH (08:30)
[2016-08-22] MEDS: DILTIAZEM-CD 120 MG CAP ER PO SCH (08:31)
[2016-08-22] MEDS: LACTOBACILLUS ACIDOPHILUS TAB PO SCH ×3 (08:31→15:57)
[2016-08-22] MEDS: MULTIVITAMIN TAB PO SCH (08:31)
[2016-08-22] MEDS: RIVAROXABAN 20 MG TAB PO SCH (08:32)
[2016-08-22] MEDS: CALCITRIOL 0.25 MCG CAP PO SCH (08:32)
[2016-08-22] MEDS: CALCIUM/VITAMIN D 250 MG/125 U TAB PO SCH ×2 (08:32→20:04)
[2016-08-22] MEDS: prednisoLONE ACETATE 1% OPHT SUSP 5 ML BTL LEFT EYE SCH ×2 (08:36→21:00)
[2016-08-22] MEDS: LISINOPRIL 20 MG TAB PO SCH (08:46)
[2016-08-22] MEDS: COLLAGENASE OINT 30 GM TUBE TOP SCH (09:00)
[2016-08-22] MEDS: SODIUM CHLORIDE 0.9% FLUSH 5 ML FLUSH IV FLUSH SCH ×2 (09:00→20:03)
[2016-08-22] MEDS: NYSTATIN 100,000 U/GM PWD 15 GM BTL TOPICAL SCH ×2 (09:00→20:09)
[2016-08-22] MEDS: MUPIROCIN 2% OINT 22 GM TUBE TOPICAL SCH ×2 (09:00→20:09)
--- NOTE | 2016-08-22 10:42 | HHI.PR ---
Subjective Remarks Patient concerned about a black area to her right great toe stating that she cut the skin with nail clippers 4 weeks ago but the area has become larger. Objective Vitals Vital Signs Date Time Temp Pulse Resp B/P Pulse Ox O2 Delivery O2 Flow Rate FiO2 08/22/16 09:30 20 08/22/16 08:00 98.9 76 19 136/79 95 08/21/16 21:10 98.3 76 18 136/76 97 I/O 08/21/16 08/21/16 08/21/16 08/22/16 08/22/16 08/22/16 06:59 14:59 22:59 06:59 14:59 22:59 Intake Total 692 ml 506 ml 1083 ml Output Total 4 ml 750 ml Balance 692 ml 506 ml -4 ml 333 ml Intake Oral 100 ml IV Total 983 ml TPN/PPN 486 ml 506 ml Lipid 206 ml Output Urine Total 4 ml 750 ml # Voids 1 # Bowel Movements 1 2 1 1 Result Diagram: 08/19/16 0710 08/19/16 0710 Objective Remarks GENERAL: Well-developed patient in no apparent distress. SKIN: Warm and dry. Bandage over abdomen. Dry scaling skin to the right foot. Small area of black discoloration over the medial nail fold of the right great toe with small circular wound of only a few millimeters. No erythema, bleeding, or drainage. There are 2 small black dots at the distal lateral aspect of the R great toe under the nail. CARDIOVASCULAR: Regular rate and rhythm. RESPIRATORY: Limited anterior exam. No accessory muscle use. Clear to auscultation. Breath sounds equal bilaterally. GASTROINTESTINAL: Abdomen soft, non-tender, nondistended. MUSCULOSKELETAL: Left lower extremity stump with incisional scabbing present, but no erythema, dehiscence, drainage, or swelling. 1+ right DP pulse. Capillary refill normal in right great toe. NEUROLOGICAL: Awake and alert. Normal speech. PSYCHIATRIC: Appropriate mood and affect; insight and judgment normal. Procedures Left stump debridement by Dr. 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 (3) Hypercoagulable state ICD Code: D68.59 Status: Chronic (4) HTN (hypertension) ICD Code: I10 Status: Chronic (5) Anxiety about health ICD Code: F41.8 Status: Chronic (6) Diarrhea ICD Code: R19.7 Status: Chronic (7) Severe protein-calorie malnutrition ICD Code: E43 Status: Acute (8) Fungal skin infection ICD Code: B36.9 Status: Resolved (9) Transient lingual papillitis ICD Code: K14.0 Status: Resolved (10) Hospital acquired PNA ICD Code: J18.9 Status: Resolved (11) Major depressive disorder, recurrent severe without psychotic features ICD Code: F33.2 Status: Chronic (12) Disseminated herpes zoster ICD Code: B02.7 Status: Resolved (13) Hypokalemia ICD Code: E87.6 Status: Resolved Assessment and Plan Malnutrition: Severe protein-calorie malnutrition. 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 C diff negative. TPN for nutritional support as patient is not candidate for feeding tube. Continue Megace to stimulate appetite and Nutritional supplements Documented continued weight loss Dietitian evaluated patient on 08/20 who indicated that weight loss may be due to inaccurate ins and outs, still recommending current TPN, lipids. Encourage by mouth intake with regular diet and Ensure 1 can tid. Diarrhea-likely secondary to short gut syndrome, improved Continue Imodium Pain control Patient has not required any breakthrough pain medications in 2 days, so methadone was discontinued, patient still complaining of pain that is not covered by [facility] Ibuprofen 400 mg every 8 hours as needed for pain 15 Ultram prn as directed Deconditioning Continue PT/OT during the patient's stay in the hospital Trapeze ordered to allow better upper body mobility Hypertension Cardizem CD 120 mg daily Lisinopril 40 mg daily Staph Hominis bacteremia, treated ID following, Dr. Greenfield. 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 Olvera. S/ P debridement- dry, treated Wound cultures growing Klebsiella ESBL positive and Morganella finished treatment with zerbaxa Wound R great toe: Patient clipped the skin of the medial nailfold of right great toe 4 weeks ago. There is small area of black discoloration which the patient states has gotten larger since that time. The area is small. There is no indication of active infection. There may be delayed wound healing, but toes appear adequately perfused. Patient is concerned due to history with left leg. I have asked Dr. Velazquez to evaluate the area as well, but nothing to do at this time. Will closely monitor. Rash: Unusual appearance and presentation, neg for herpes, biopsy inconclusive. Possibly related to zinc deficiency. Improved - Zinc could not be added to TPN per pharmacy. On oral zinc sulfate replacement. - Continue zinc oxide paste to buttock Enterocutaneous fistula. Chronic per surgery, no further surgical intervention. Optimize nutrition with PO and TPN. Wound care. Hypercoagulable state: Chronic and stable History of ischemic bowel and severe peripheral vascular disease. Continue Xarelto Anxiety and depression: Stable Continue Seroquel and Zoloft. Continue Remeron. COPD: Stable. Patient with good O2 sats on room air Patient has not required any breathing treatments Pulmonary nodule. Repeat CT recommended in 6 mos. Patient previously counseled about this finding and the need to follow-up. GI protection secondary for prolonged hospitalization Protonix DVT prevention Xarelto Discharge Planning PT recommends rehabilitation. Difficult placement due to TPN use and patient was at SNF prior to hospitalization. Problem Qualifiers (1) HTN (hypertension): Qualified Code: I10 - Essential hypertension (2) Diarrhea: Qualified Code: R19.7 - Diarrhea, unspecified type Kathy Parmar Aug 22, 2016 10:42
[2016-08-22 20:00] VITALS: BP 134/78; PULSE 80; RESP 18; TEMP 98.2; O2SAT 96
[2016-08-22] MEDS: CLINIMIX E 5/25 2000 mL- >42 mls/hr IV-CENTRAL SCH ×3 (20:00)
[2016-08-22] MEDS: GABAPENTIN 100 MG CAP PO SCH (20:04)
[2016-08-22] MEDS: MIRTAZAPINE ODT 15 MG TAB PO SCH (20:04)
[2016-08-23] MEDS: ALPRAZolam 0.25 MG TAB PO SCH ×3 (06:23→21:12)
[2016-08-23] MEDS: ERYTHROMYCIN 0.5% OPTH OINT 3.5 GM TUBO LEFT EYE SCH ×3 (06:24→21:19)
[2016-08-23 08:00] VITALS: BP 143/82; PULSE 78; RESP 18; TEMP 96.7; O2SAT 97
[2016-08-23] MEDS: LISINOPRIL 20 MG TAB PO SCH (09:00)
[2016-08-23] MEDS: SERTRALINE HCL 100 MG TAB PO SCH (09:00)
[2016-08-23] MEDS: CALCITRIOL 0.25 MCG CAP PO SCH (09:00)
[2016-08-23] MEDS: DILTIAZEM-CD 120 MG CAP ER PO SCH (09:00)
[2016-08-23] MEDS: MAGNESIUM OXIDE 400 MG TAB PO SCH ×2 (09:00→21:12)
[2016-08-23] MEDS: COLLAGENASE OINT 30 GM TUBE TOP SCH (09:00)
[2016-08-23] MEDS: RIVAROXABAN 20 MG TAB PO SCH (09:00)
[2016-08-23] MEDS: LACTOBACILLUS ACIDOPHILUS TAB PO SCH ×3 (09:00→17:29)
[2016-08-23] MEDS: PANTOPRAZOLE SOD 20 MG DELAYED RELEASE TAB PO SCH ×2 (09:00→21:12)
[2016-08-23] MEDS: MUPIROCIN 2% OINT 22 GM TUBE TOPICAL SCH ×2 (09:00→21:18)
[2016-08-23] MEDS: NYSTATIN 100,000 U/GM PWD 15 GM BTL TOPICAL SCH ×2 (09:00→21:17)
[2016-08-23] MEDS: prednisoLONE ACETATE 1% OPHT SUSP 5 ML BTL LEFT EYE SCH ×2 (09:00→21:14)
[2016-08-23] MEDS: MEGESTROL ACETATE SUSP 400 MG/10 ML CUP PO SCH (09:00)
[2016-08-23] MEDS: CALCIUM/VITAMIN D 250 MG/125 U TAB PO SCH ×2 (09:00→21:12)
[2016-08-23] MEDS: MULTIVITAMIN TAB PO SCH (09:00)
[2016-08-23] MEDS: FERROUS SULFATE 325 MG (65 MG ELEMENTAL IRON) TAB PO SCH (09:00)
[2016-08-23] MEDS: SODIUM CHLORIDE 0.9% FLUSH 5 ML FLUSH IV FLUSH SCH ×2 (09:00→21:00)
[2016-08-23 12:00] VITALS: BP 139/70; PULSE 81; RESP 20; TEMP 96.6; O2SAT 98
[2016-08-23] MEDS: ONDANSETRON ODT 4 MG TAB PO PRN (13:12)
--- NOTE | 2016-08-23 15:12 | HHI.PR ---
Subjective Remarks Late entry. Patient evaluated earlier this morning. Patient sleeping when I enter the room. No acute complaints. No change in clinical status. Objective Vitals Vital Signs Date Time Temp Pulse Resp B/P Pulse Ox O2 Delivery O2 Flow Rate FiO2 08/23/16 12:00 96.6 81 20 139/70 98 08/23/16 08:00 96.7 78 18 143/82 97 08/22/16 20:00 98.2 80 18 134/78 96 I/O 08/22/16 08/22/16 08/22/16 08/23/16 08/23/16 08/23/16 07:00 15:00 23:00 07:00 15:00 23:00 Intake Total 983 ml 1359 ml 500 ml Output Total 450 ml 350 ml Balance 533 ml 1009 ml 500 ml Intake Oral 500 ml IV Total 983 ml TPN/PPN 1359 ml Output Urine Total 450 ml 350 ml # Voids 3 3 # Bowel Movements 1 1 2 1 Result Diagram: 08/19/16 0710 08/19/16 0710 Imaging Last Impressions Liver Ultrasound 07/12/16 0000 Signed Impressions: Service Date/Time: Tuesday, July 12, 2016 18:07 - CONCLUSION: 1. No acute abnormality demonstrated. 2. Heterogeneous liver without measurable mass. 3. Small and heterogeneous spleen without a measurable mass. 4. Cortical thinning and scarring of the right kidney. 5. Previous cholecystectomy. Calixto Woodruff MD Chest CT 07/09/16 0000 Signed Impressions: Service Date/Time: Saturday, July 09, 2016 14:43 - CONCLUSION: 1. Small right pleural effusion and minimal right basilar consolidation. 2. 6 mm left basilar nodule. Followup CT chest 6 months recommended. Florian Pepper MD Chest X-Ray 07/08/16 0000 Signed Impressions: Service Date/Time: Friday, July 08, 2016 16:26 - CONCLUSION: Chronic right lung base opacity unchanged. No new pulmonary opacity. Alexandru Lynch MD Lower Extremity Ultrasound 06/25/16 0000 Signed Impressions: Service Date/Time: Saturday, June 25, 2016 15:56 - CONCLUSION: Negative exam with no evidence of deep venous thrombosis. Soft tissue edema. Mike Leija MD Port Line Insertion 06/20/16 0000 Signed Impressions: Service Date/Time: Monday, June 20, 2016 08:53 - CONCLUSION: Uncomplicated ultrasound and fluoroscopic guided implanted central venous port catheter placement as described in detail above. An 8 [place] Power port was placed. Kevan Salgado Jr., MD Objective Remarks GENERAL: Well-developed patient in no apparent distress. SKIN: Warm and dry. Dry scaling skin to the right foot. Small area of black discoloration over the medial nail fold of the right great toe with small circular wound of only a few millimeters. No erythema, bleeding, or drainage. CARDIOVASCULAR: Regular rate and rhythm. RESPIRATORY: Limited anterior exam. No accessory muscle use. Clear to auscultation. Breath sounds equal bilaterally. GASTROINTESTINAL: Abdomen soft, non-tender, nondistended. MUSCULOSKELETAL: Left lower extremity stump with incisional scabbing present, but no erythema, dehiscence, drainage, or swelling. Capillary refill normal in right great toe. NEUROLOGICAL: Somnolent. Normal speech. Procedures Left stump debridement by Dr. 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 (3) Hypercoagulable state ICD Code: D68.59 Status: Chronic (4) HTN (hypertension) ICD Code: I10 Status: Chronic (5) Anxiety about health ICD Code: F41.8 Status: Chronic (6) Diarrhea ICD Code: R19.7 Status: Chronic (7) Severe protein-calorie malnutrition ICD Code: E43 Status: Acute (8) Fungal skin infection ICD Code: B36.9 Status: Resolved (9) Transient lingual papillitis ICD Code: K14.0 Status: Resolved (10) Hospital acquired PNA ICD Code: J18.9 Status: Resolved (11) Major depressive disorder, recurrent severe without psychotic features ICD Code: F33.2 Status: Chronic (12) Disseminated herpes zoster ICD Code: B02.7 Status: Resolved (13) Hypokalemia ICD Code: E87.6 Status: Resolved Assessment and Plan Malnutrition: Severe protein-calorie malnutrition. 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 TPN for nutritional support as patient is not candidate for feeding tube. Continue Megace to stimulate appetite and Nutritional supplements Documented continued weight loss Dietitian evaluated patient on 08/20 who indicated that weight loss may be due to inaccurate ins and outs, still recommending current TPN, lipids. Encourage by mouth intake with regular diet and Ensure 1 can tid. Diarrhea-likely secondary to short gut syndrome C diff negative most recently on 08/15/16. Continue Imodium RN later informed me that patient has very malodorous diarrhea. Will retest for C.diff although recent testing was negative. Pain control Patient has not required any breakthrough pain medications in 2 days, so methadone was discontinued, patient still complaining of pain that is not covered by [place] Ibuprofen 400 mg every 8 hours as needed for pain 15 Ultram prn as directed Deconditioning Continue PT/OT during the patient's stay in the hospital Trapeze ordered to allow better upper body mobility Hypertension Cardizem CD 120 mg daily Lisinopril 40 mg daily Staph Hominis bacteremia, treated ID following, Dr. Greenfield. 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 Olvera. S/ P debridement- dry, treated Wound cultures growing Klebsiella ESBL positive and Morganella finished treatment with zerbaxa Wound R great toe: Patient clipped the skin of the medial nailfold of right great toe 4 weeks ago. There is small area of black discoloration which the patient states has gotten larger since that time. The area is small. There is no indication of active infection. There may be delayed wound healing, but toes appear adequately perfused. Nothing to do at this time. Will closely monitor. Rash: Unusual appearance and presentation, neg for herpes, biopsy inconclusive. Possibly related to zinc deficiency. Improved - Zinc could not be added to TPN per pharmacy. On oral zinc sulfate replacement. - Continue zinc oxide paste to buttock Enterocutaneous fistula. Chronic per surgery, no further surgical intervention. Optimize nutrition with PO and TPN. Wound care. Hypercoagulable state: Chronic and stable History of ischemic bowel and severe peripheral vascular disease. Continue Xarelto Anxiety and depression: Stable Continue Seroquel and Zoloft. Continue Remeron. COPD: Stable. Patient with good O2 sats on room air Patient has not required any breathing treatments Pulmonary nodule. Repeat CT recommended in 6 mos. Patient previously counseled about this finding and the need to follow-up. GI protection secondary for prolonged hospitalization Protonix DVT prevention Xarelto Discharge Planning PT recommends rehabilitation. Difficult placement due to TPN use and patient was at SNF prior to hospitalization. Problem Qualifiers (1) HTN (hypertension): Qualified Code: I10 - Essential hypertension (2) Diarrhea: Qualified Code: R19.7 - Diarrhea, unspecified type Kathy Parmar Aug 23, 2016 15:12 Dusty Benson MD Aug 23, 2016 18:31
[2016-08-23 16:00] VITALS: BP 143/81; PULSE 81; RESP 20; TEMP 96.9; O2SAT 96
[2016-08-23 20:00] VITALS: BP 134/80; PULSE 90; RESP 16; TEMP 97.8; O2SAT 96
[2016-08-23] MEDS: FAT EMULSION 20% INJ 250 ML (Twice weekly over 8 hours) IV-CENTRAL SCH (20:07)
[2016-08-23] MEDS: CLINIMIX E 5/25 2000 mL- >42 mls/hr IV-CENTRAL SCH ×3 (20:07)
[2016-08-23 20:14] LABS: C. DIFF EPI 027 PRESUMPTIVE NEGATIVE (NEGATIVE); C. DIFF TOXIN PCR NEGATIVE (NEGATIVE)
[2016-08-23] MEDS: traMADol HCL 50 MG TAB PO PRN (20:16)
[2016-08-23] MEDS: GABAPENTIN 100 MG CAP PO SCH (21:12)
[2016-08-23] MEDS: MIRTAZAPINE ODT 15 MG TAB PO SCH (21:12)
[2016-08-24 00:04] VITALS: BP 128/78; PULSE 70; RESP 16; TEMP 98.6; O2SAT 95
[2016-08-24] MEDS: ERYTHROMYCIN 0.5% OPTH OINT 3.5 GM TUBO LEFT EYE SCH ×3 (05:44→20:54)
[2016-08-24] MEDS: ALPRAZolam 0.25 MG TAB PO SCH ×3 (05:45→20:51)
[2016-08-24 06:07] VITALS: BP 132/64; PULSE 66; RESP 16; TEMP 97.9; O2SAT 98
[2016-08-24 08:00] VITALS: BP 149/88; PULSE 95; RESP 20; TEMP 99.1; O2SAT 97
[2016-08-24] MEDS: LACTOBACILLUS ACIDOPHILUS TAB PO SCH ×3 (08:29→16:49)
[2016-08-24] MEDS: CALCITRIOL 0.25 MCG CAP PO SCH (08:29)
[2016-08-24] MEDS: LISINOPRIL 20 MG TAB PO SCH (08:30)
[2016-08-24] MEDS: MEGESTROL ACETATE SUSP 400 MG/10 ML CUP PO SCH (08:30)
[2016-08-24] MEDS: RIVAROXABAN 20 MG TAB PO SCH (08:31)
[2016-08-24] MEDS: MAGNESIUM OXIDE 400 MG TAB PO SCH ×2 (08:31→20:50)
[2016-08-24] MEDS: SERTRALINE HCL 100 MG TAB PO SCH (08:31)
[2016-08-24] MEDS: PANTOPRAZOLE SOD 20 MG DELAYED RELEASE TAB PO SCH ×2 (08:32→21:03)
[2016-08-24] MEDS: CALCIUM/VITAMIN D 250 MG/125 U TAB PO SCH ×2 (08:32→20:49)
[2016-08-24] MEDS: MULTIVITAMIN TAB PO SCH (08:32)
[2016-08-24] MEDS: DILTIAZEM-CD 120 MG CAP ER PO SCH (08:32)
[2016-08-24] MEDS: FERROUS SULFATE 325 MG (65 MG ELEMENTAL IRON) TAB PO SCH (08:32)
[2016-08-24] MEDS: MUPIROCIN 2% OINT 22 GM TUBE TOPICAL SCH ×2 (09:00→20:55)
[2016-08-24] MEDS: NYSTATIN 100,000 U/GM PWD 15 GM BTL TOPICAL SCH ×2 (09:00→20:55)
[2016-08-24] MEDS: COLLAGENASE OINT 30 GM TUBE TOP SCH (09:00)
[2016-08-24] MEDS: SODIUM CHLORIDE 0.9% FLUSH 5 ML FLUSH IV FLUSH SCH ×2 (09:00→20:48)
[2016-08-24] MEDS: prednisoLONE ACETATE 1% OPHT SUSP 5 ML BTL LEFT EYE SCH ×2 (09:00→20:51)
[2016-08-24 11:08] VITALS: BP 142/86; PULSE 83; RESP 20; TEMP 98.1; O2SAT 95
[2016-08-24] MEDS: LOPERAMIDE HCL 2 MG CAP PO PRN ×2 (12:50→16:49)
[2016-08-24 15:54] VITALS: BP 139/73; PULSE 79; RESP 20; TEMP 98.2; O2SAT 99
[2016-08-24] MEDS: traMADol HCL 50 MG TAB PO PRN (16:49)
[2016-08-24] MEDS: IBUPROFEN 400 MG TAB PO PRN (16:50)
--- NOTE | 2016-08-24 18:55 | HHI.PR ---
Subjective Remarks Late entry. Patient evaluated this morning. Nurse informs the patient had profuse foul-smelling diarrhea. C. difficile test was negative yesterday. Patient had not taken any Imodium since 08/21. She has chronic diarrhea. Has used Lomotil in the past with good relief. Objective Vitals Vital Signs Date Time Temp Pulse Resp B/P Pulse Ox O2 Delivery O2 Flow Rate FiO2 08/24/16 17:50 20 08/24/16 17:50 20 08/24/16 15:54 98.2 79 20 139/73 99 08/24/16 11:08 98.1 83 20 142/86 95 08/24/16 08:00 99.1 95 20 149/88 97 08/24/16 06:07 97.9 66 16 132/64 98 08/24/16 00:04 98.6 70 16 128/78 95 08/23/16 20:00 97.8 90 16 134/80 96 I/O 08/23/16 08/23/16 08/23/16 08/24/16 08/24/16 08/24/16 07:00 15:00 23:00 07:00 15:00 23:00 Intake Total 1359 ml 500 ml 2330 ml 450 ml 480 ml Output Total 350 ml 300 ml Balance 1009 ml 500 ml 2030 ml 450 ml 480 ml Intake Oral 500 ml 1050 ml 450 ml 480 ml TPN/PPN 1359 ml 1030 ml Lipid 250 ml Output Urine Total 350 ml 300 ml # Voids 3 7 4 1 # Bowel Movements 2 3 5 3 1 Objective Remarks GENERAL: Well-developed patient in no apparent distress. SKIN: Warm and dry. Dry scaling skin to the right foot. Small area of black discoloration over the medial nail fold of the right great toe with small circular wound of only a few millimeters. No erythema, bleeding, or drainage. CARDIOVASCULAR: Regular rate and rhythm. RESPIRATORY: Limited anterior exam. No accessory muscle use. Clear to auscultation. Breath sounds equal bilaterally. GASTROINTESTINAL: Abdomen soft, non-tender, nondistended. MUSCULOSKELETAL: Left lower extremity stump with incisional scabbing present, but no erythema, dehiscence, drainage, or swelling. Capillary refill normal in right great toe. NEUROLOGICAL: Somnolent. Normal speech. Procedures Left stump debridement by Dr. 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 (3) Hypercoagulable state ICD Code: D68.59 Status: Chronic (4) HTN (hypertension) ICD Code: I10 Status: Chronic (5) Anxiety about health ICD Code: F41.8 Status: Chronic (6) Diarrhea ICD Code: R19.7 Status: Chronic (7) Severe protein-calorie malnutrition ICD Code: E43 Status: Acute (8) Fungal skin infection ICD Code: B36.9 Status: Resolved (9) Transient lingual papillitis ICD Code: K14.0 Status: Resolved (10) Hospital acquired PNA ICD Code: J18.9 Status: Resolved (11) Major depressive disorder, recurrent severe without psychotic features ICD Code: F33.2 Status: Chronic (12) Disseminated herpes zoster ICD Code: B02.7 Status: Resolved (13) Hypokalemia ICD Code: E87.6 Status: Resolved Assessment and Plan Malnutrition: Severe protein-calorie malnutrition. 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 TPN for nutritional support as patient is not candidate for feeding tube. Continue Megace to stimulate appetite and Nutritional supplements Documented continued weight loss Dietitian evaluated patient on 08/20 who indicated that weight loss may be due to inaccurate ins and outs, still recommending current TPN, lipids. Encourage by mouth intake with regular diet and Ensure 1 can tid. Diarrhea-likely secondary to short gut syndrome Patient has recently had profuse malodorous diarrhea. C. difficile testing performed yesterday negative. Continue Imodium Start Lomotil as needed as patient has used this in the past Pain control Patient has not required any breakthrough pain medications in 2 days, so methadone was discontinued, patient still complaining of pain that is not covered by [place] Ibuprofen 400 mg every 8 hours as needed for pain 15 Ultram prn as directed Deconditioning Continue PT/OT during the patient's stay in the hospital Trapeze ordered to allow better upper body mobility but has not received yet. Hypertension Cardizem CD 120 mg daily Lisinopril 40 mg daily Staph Hominis bacteremia, treated ID following, Dr. Greenfield. 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 Olvera. S/ P debridement- dry, treated Wound cultures growing Klebsiella ESBL positive and Morganella finished treatment with zerbaxa Wound R great toe: Patient clipped the skin of the medial nailfold of right great toe 4 weeks ago. There is small area of black discoloration which the patient states has gotten larger since that time. The area is small. There is no indication of active infection. There may be delayed wound healing, but toes appear adequately perfused. Nothing to do at this time. Will closely monitor. Rash: Unusual appearance and presentation, neg for herpes, biopsy inconclusive. Possibly related to zinc deficiency. Improved - Zinc could not be added to TPN per pharmacy. On oral zinc sulfate replacement. - Continue zinc oxide paste to buttock Enterocutaneous fistula. Chronic per surgery, no further surgical intervention. Optimize nutrition with PO and TPN. Wound care. Hypercoagulable state: Chronic and stable History of ischemic bowel and severe peripheral vascular disease. Continue Xarelto Anxiety and depression: Stable Continue Seroquel and Zoloft. Continue Remeron. COPD: Stable. Patient with good O2 sats on room air Patient has not required any breathing treatments Pulmonary nodule. Repeat CT recommended in 6 mos. Patient previously counseled about this finding and the need to follow-up. GI protection secondary for prolonged hospitalization Protonix DVT prevention Xarelto Discharge Planning PT recommends rehabilitation. Difficult placement due to TPN use and patient was at SNF prior to hospitalization. Problem Qualifiers (1) HTN (hypertension): Qualified Code: I10 - Essential hypertension (2) Diarrhea: Qualified Code: R19.7 - Diarrhea, unspecified type Kathy Parmar Aug 24, 2016 18:55
[2016-08-24 20:00] VITALS: BP 125/71; PULSE 81; RESP 20; TEMP 97.6; O2SAT 95
[2016-08-24] MEDS: CLINIMIX E 5/25 2000 mL- >42 mls/hr IV-CENTRAL SCH ×3 (20:48)
[2016-08-24] MEDS: GABAPENTIN 100 MG CAP PO SCH (20:49)
[2016-08-24] MEDS: MIRTAZAPINE ODT 15 MG TAB PO SCH (20:50)
[2016-08-25] MEDS: ERYTHROMYCIN 0.5% OPTH OINT 3.5 GM TUBO LEFT EYE SCH ×3 (06:00→22:00)
[2016-08-25] MEDS: ALPRAZolam 0.25 MG TAB PO SCH ×3 (06:08→21:19)
[2016-08-25 08:00] VITALS: BP 145/76; PULSE 83; RESP 16; TEMP 98.4; O2SAT 97
[2016-08-25] MEDS: SODIUM CHLORIDE 0.9% FLUSH 5 ML FLUSH IV FLUSH SCH ×2 (08:28→21:00)
[2016-08-25] MEDS: DILTIAZEM-CD 120 MG CAP ER PO SCH (08:51)
[2016-08-25] MEDS: FERROUS SULFATE 325 MG (65 MG ELEMENTAL IRON) TAB PO SCH (08:52)
[2016-08-25] MEDS: CALCIUM/VITAMIN D 250 MG/125 U TAB PO SCH ×2 (08:52→21:19)
[2016-08-25] MEDS: RIVAROXABAN 20 MG TAB PO SCH (08:52)
[2016-08-25] MEDS: SERTRALINE HCL 100 MG TAB PO SCH (08:52)
[2016-08-25] MEDS: PANTOPRAZOLE SOD 20 MG DELAYED RELEASE TAB PO SCH ×2 (08:52→21:19)
[2016-08-25] MEDS: MAGNESIUM OXIDE 400 MG TAB PO SCH ×2 (08:52→21:19)
[2016-08-25] MEDS: LISINOPRIL 20 MG TAB PO SCH (08:52)
[2016-08-25] MEDS: MULTIVITAMIN TAB PO SCH (08:52)
[2016-08-25] MEDS: LACTOBACILLUS ACIDOPHILUS TAB PO SCH ×3 (08:52→18:02)
[2016-08-25] MEDS: COLLAGENASE OINT 30 GM TUBE TOP SCH (08:53)
[2016-08-25] MEDS: CALCITRIOL 0.25 MCG CAP PO SCH (08:53)
[2016-08-25] MEDS: MUPIROCIN 2% OINT 22 GM TUBE TOPICAL SCH ×2 (08:53→21:18)
[2016-08-25] MEDS: prednisoLONE ACETATE 1% OPHT SUSP 5 ML BTL LEFT EYE SCH ×3 (08:53→21:00)
[2016-08-25] MEDS: MEGESTROL ACETATE SUSP 400 MG/10 ML CUP PO SCH ×2 (08:53→09:00)
[2016-08-25] MEDS: NYSTATIN 100,000 U/GM PWD 15 GM BTL TOPICAL SCH ×2 (08:53→21:00)
--- NOTE | 2016-08-25 10:36 | HHI.PR ---
Subjective Remarks Patient states her diarrhea has resolved. She took the Imodium but did not need the Lomotil. Objective Vitals Vital Signs Date Time Temp Pulse Resp B/P Pulse Ox O2 Delivery O2 Flow Rate FiO2 08/25/16 08:00 98.4 83 16 145/76 97 08/24/16 20:00 97.6 81 20 125/71 95 08/24/16 17:50 20 08/24/16 17:50 20 08/24/16 15:54 98.2 79 20 139/73 99 08/24/16 11:08 98.1 83 20 142/86 95 I/O 08/24/16 08/24/16 08/24/16 08/25/16 08/25/16 08/25/16 07:00 15:00 23:00 07:00 15:00 23:00 Intake Total 2330 ml 450 ml 480 ml 1450 ml Output Total 300 ml 300 ml 300 ml Balance 2030 ml 450 ml 180 ml 1150 ml Intake Oral 1050 ml 450 ml 480 ml TPN/PPN 1030 ml 1450 ml Lipid 250 ml Output Urine Total 300 ml 300 ml 300 ml # Voids 7 4 1 # Bowel Movements 5 3 1 Imaging Last Impressions Liver Ultrasound 07/12/16 0000 Signed Impressions: Service Date/Time: Tuesday, July 12, 2016 18:07 - CONCLUSION: 1. No acute abnormality demonstrated. 2. Heterogeneous liver without measurable mass. 3. Small and heterogeneous spleen without a measurable mass. 4. Cortical thinning and scarring of the right kidney. 5. Previous cholecystectomy. Calixto Woodruff MD Chest CT 07/09/16 0000 Signed Impressions: Service Date/Time: Saturday, July 09, 2016 14:43 - CONCLUSION: 1. Small right pleural effusion and minimal right basilar consolidation. 2. 6 mm left basilar nodule. Followup CT chest 6 months recommended. Florian Pepper MD Chest X-Ray 07/08/16 0000 Signed Impressions: Service Date/Time: Friday, July 08, 2016 16:26 - CONCLUSION: Chronic right lung base opacity unchanged. No new pulmonary opacity. Alexandru Lynch MD Lower Extremity Ultrasound 06/25/16 0000 Signed Impressions: Service Date/Time: Saturday, June 25, 2016 15:56 - CONCLUSION: Negative exam with no evidence of deep venous thrombosis. Soft tissue edema. Mike Leija MD Port Line Insertion 06/20/16 0000 Signed Impressions: Service Date/Time: Monday, June 20, 2016 08:53 - CONCLUSION: Uncomplicated ultrasound and fluoroscopic guided implanted central venous port catheter placement as described in detail above. An 8 [place] Power port was placed. Kevan Salgado Jr., MD Objective Remarks GENERAL: Well-developed patient in no apparent distress sleeping when I enter the room. SKIN: Warm and dry. Dry scaling skin to the right foot. Small area of black discoloration over the medial nail fold of the right great toe with small circular wound of only a few millimeters. No erythema, bleeding, or drainage. CARDIOVASCULAR: Regular rate and rhythm. RESPIRATORY: Limited anterior exam. No accessory muscle use. Clear to auscultation. Breath sounds equal bilaterally. GASTROINTESTINAL: Abdomen soft, nondistended. Mildly tender over the left abdomen, but patient states this is chronic. MUSCULOSKELETAL: Left lower extremity stump with incisional scabbing present, but no erythema, dehiscence, drainage, or swelling. Capillary refill normal in right great toe. NEUROLOGICAL: Awake and alert. Normal speech. Procedures Left stump debridement by Dr. 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 (3) Hypercoagulable state ICD Code: D68.59 Status: Chronic (4) HTN (hypertension) ICD Code: I10 Status: Chronic (5) Anxiety about health ICD Code: F41.8 Status: Chronic (6) Diarrhea ICD Code: R19.7 Status: Chronic (7) Severe protein-calorie malnutrition ICD Code: E43 Status: Acute (8) Fungal skin infection ICD Code: B36.9 Status: Resolved (9) Transient lingual papillitis ICD Code: K14.0 Status: Resolved (10) Hospital acquired PNA ICD Code: J18.9 Status: Resolved (11) Major depressive disorder, recurrent severe without psychotic features ICD Code: F33.2 Status: Chronic (12) Disseminated herpes zoster ICD Code: B02.7 Status: Resolved (13) Hypokalemia ICD Code: E87.6 Status: Resolved Assessment and Plan Malnutrition: Severe protein-calorie malnutrition. 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 TPN for nutritional support as patient is not candidate for feeding tube. Continue Megace to stimulate appetite and nutritional supplements Documented continued weight loss Dietitian evaluated patient on 08/20 who indicated that weight loss may be due to inaccurate ins and outs, still recommending current TPN, lipids. Encourage by mouth intake with regular diet and Ensure 1 can tid. Diarrhea-likely secondary to short gut syndrome: Resolved C. difficile testing 08/23 negative. Continue Imodium Lomotil as needed Pain control Patient has not required any breakthrough pain medications in 2 days, so methadone was discontinued, patient still complaining of pain that is not covered by [place] Ibuprofen 400 mg every 8 hours as needed for pain 15 Ultram prn as directed Deconditioning Continue PT/OT during the patient's stay in the hospital Trapeze ordered to allow better upper body mobility but has not received yet. Hypertension Cardizem CD 120 mg daily Lisinopril 40 mg daily Staph Hominis bacteremia, treated ID following, Dr. Greenfield. 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 Olvera. S/ P debridement- dry, treated Wound cultures growing Klebsiella ESBL positive and Morganella finished treatment with zerbaxa Wound R great toe: Patient clipped the skin of the medial nailfold of right great toe 4 weeks ago. There is small area of black discoloration which the patient states has gotten larger since that time. The area is small. There is no indication of active infection. There may be delayed wound healing, but toes appear adequately perfused. Nothing to do at this time. Will closely monitor. Rash: Unusual appearance and presentation, neg for herpes, biopsy inconclusive. Possibly related to zinc deficiency. Improved - Zinc could not be added to TPN per pharmacy. On oral zinc sulfate replacement. - Continue zinc oxide paste to buttock Enterocutaneous fistula. Chronic per surgery, no further surgical intervention. Optimize nutrition with PO and TPN. Wound care. Hypercoagulable state: Chronic and stable History of ischemic bowel and severe peripheral vascular disease. Continue Xarelto Anxiety and depression: Stable Continue Seroquel and Zoloft. Continue Remeron. COPD: Stable. Patient with good O2 sats on room air Patient has not required any breathing treatments Pulmonary nodule. Repeat CT recommended in 6 mos. Patient previously counseled about this finding and the need to follow-up. GI protection secondary for prolonged hospitalization Protonix DVT prevention Xarelto Discharge Planning PT recommends rehabilitation. Difficult placement due to TPN use and patient was at SNF prior to hospitalization. Problem Qualifiers (1) HTN (hypertension): Qualified Code: I10 - Essential hypertension (2) Diarrhea: Qualified Code: R19.7 - Diarrhea, unspecified type Kathy Parmar Aug 25, 2016 10:36 Kathy Parmar Aug 25, 2016 10:36
[2016-08-25] MEDS: traMADol HCL 50 MG TAB PO PRN (11:23)
[2016-08-25 20:00] VITALS: BP 136/68; PULSE 95; RESP 16; TEMP 98.1; O2SAT 96
[2016-08-25] MEDS: CLINIMIX E 5/25 2000 mL- >42 mls/hr IV-CENTRAL SCH ×3 (20:00)
[2016-08-25] MEDS: MIRTAZAPINE ODT 15 MG TAB PO SCH (21:18)
[2016-08-25] MEDS: GABAPENTIN 100 MG CAP PO SCH (21:19)
[2016-08-26] MEDS: ERYTHROMYCIN 0.5% OPTH OINT 3.5 GM TUBO LEFT EYE SCH ×3 (06:00→21:16)
[2016-08-26] MEDS: ALPRAZolam 0.25 MG TAB PO SCH ×3 (06:30→21:07)
[2016-08-26 08:00] VITALS: BP 144/82; PULSE 94; RESP 20; TEMP 96.7; O2SAT 97
[2016-08-26] MEDS: NYSTATIN 100,000 U/GM PWD 15 GM BTL TOPICAL SCH ×2 (09:00→21:16)
[2016-08-26] MEDS: prednisoLONE ACETATE 1% OPHT SUSP 5 ML BTL LEFT EYE SCH ×2 (09:00→21:00)
[2016-08-26] MEDS: COLLAGENASE OINT 30 GM TUBE TOP SCH (09:00)
[2016-08-26] MEDS: MUPIROCIN 2% OINT 22 GM TUBE TOPICAL SCH ×2 (09:00→21:16)
[2016-08-26] MEDS: SERTRALINE HCL 100 MG TAB PO SCH (09:00)
[2016-08-26] MEDS: SODIUM CHLORIDE 0.9% FLUSH 5 ML FLUSH IVF PRN (10:32)
[2016-08-26] MEDS: RIVAROXABAN 20 MG TAB PO SCH (10:32)
[2016-08-26] MEDS: MEGESTROL ACETATE SUSP 400 MG/10 ML CUP PO SCH (10:33)
[2016-08-26] MEDS: LISINOPRIL 20 MG TAB PO SCH (10:34)
[2016-08-26] MEDS: MULTIVITAMIN TAB PO SCH (10:34)
[2016-08-26] MEDS: DILTIAZEM-CD 120 MG CAP ER PO SCH (10:34)
[2016-08-26] MEDS: MAGNESIUM OXIDE 400 MG TAB PO SCH ×2 (10:34→21:07)
[2016-08-26] MEDS: LOPERAMIDE HCL 2 MG CAP PO PRN ×2 (10:34→13:14)
[2016-08-26] MEDS: traMADol HCL 50 MG TAB PO PRN (10:35)
[2016-08-26] MEDS: FERROUS SULFATE 325 MG (65 MG ELEMENTAL IRON) TAB PO SCH (10:35)
[2016-08-26] MEDS: CALCIUM/VITAMIN D 250 MG/125 U TAB PO SCH ×2 (10:35→21:07)
[2016-08-26] MEDS: IBUPROFEN 400 MG TAB PO PRN (10:35)
[2016-08-26] MEDS: PANTOPRAZOLE SOD 20 MG DELAYED RELEASE TAB PO SCH ×2 (10:36→21:07)
[2016-08-26] MEDS: CALCITRIOL 0.25 MCG CAP PO SCH (10:36)
[2016-08-26] MEDS: SODIUM CHLORIDE 0.9% FLUSH 5 ML FLUSH IV FLUSH SCH ×2 (10:37→21:06)
[2016-08-26] MEDS: LACTOBACILLUS ACIDOPHILUS TAB PO SCH ×3 (10:38→16:49)
--- NOTE | 2016-08-26 15:38 | HHI.PR ---
Subjective Remarks Late entry. Patient evaluated early this morning. Patient had diarrhea last night but less severe than prior. Objective Vitals Vital Signs Date Time Temp Pulse Resp B/P Pulse Ox O2 Delivery O2 Flow Rate FiO2 08/26/16 11:35 20 08/26/16 11:35 20 08/26/16 08:00 96.7 94 20 144/82 97 08/25/16 20:00 98.1 95 16 136/68 96 I/O 08/25/16 08/25/16 08/25/16 08/26/16 08/26/16 08/26/16 07:00 15:00 23:00 07:00 15:00 23:00 Intake Total 1450 ml 1634 ml 900 ml 600 ml Output Total 300 ml 6 ml Balance 1150 ml 1628 ml 900 ml 600 ml Intake Oral 960 ml 180 ml 600 ml TPN/PPN 1450 ml 674 ml 720 ml Output Urine Total 300 ml 5 ml Stool Total 1 ml # Voids 4 3 3 # Bowel Movements 2 3 3 Objective Remarks GENERAL: Well-developed patient in no apparent distress. SKIN: Warm and dry. Dry scaling skin to the right foot. Small area of black discoloration over the medial nail fold of the right great toe with small circular wound of only a few millimeters. No erythema, bleeding, or drainage. CARDIOVASCULAR: Regular rate and rhythm. RESPIRATORY: Limited anterior exam. No accessory muscle use. Clear to auscultation. Breath sounds equal bilaterally. GASTROINTESTINAL: Normoactive bowel sounds. Abdomen soft, nontender, nondistended. MUSCULOSKELETAL: Left lower extremity stump with incisional scabbing present, but no erythema, dehiscence, drainage, or swelling. NEUROLOGICAL: Awake and alert. Normal speech. Procedures Left stump debridement by Dr. 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 (3) Hypercoagulable state ICD Code: D68.59 Status: Chronic (4) HTN (hypertension) ICD Code: I10 Status: Chronic (5) Anxiety about health ICD Code: F41.8 Status: Chronic (6) Diarrhea ICD Code: R19.7 Status: Chronic (7) Severe protein-calorie malnutrition ICD Code: E43 Status: Acute (8) Fungal skin infection ICD Code: B36.9 Status: Resolved (9) Transient lingual papillitis ICD Code: K14.0 Status: Resolved (10) Hospital acquired PNA ICD Code: J18.9 Status: Resolved (11) Major depressive disorder, recurrent severe without psychotic features ICD Code: F33.2 Status: Chronic (12) Disseminated herpes zoster ICD Code: B02.7 Status: Resolved (13) Hypokalemia ICD Code: E87.6 Status: Resolved Assessment and Plan Malnutrition: Severe protein-calorie malnutrition. 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 TPN for nutritional support as patient is not candidate for feeding tube. Continue Megace to stimulate appetite and nutritional supplements Documented continued weight loss Dietitian evaluated patient on 08/20 who indicated that weight loss may be due to inaccurate ins and outs, still recommending current TPN, lipids. Encourage by mouth intake with regular diet and Ensure 1 can tid. Patient still not eating 100% of meals. Diarrhea: secondary to short gut syndrome: Improved C. difficile testing 08/23 negative. Continue Imodium and Lomotil as needed. Pain control -Ibuprofen 400 mg every 8 hours as needed for pain 15 -Ultram prn as directed Deconditioning Continue PT/OT during the patient's stay in the hospital Trapeze ordered to allow better upper body mobility but has not received yet. Hypertension Cardizem CD 120 mg daily Lisinopril 40 mg daily Monitor Staph Hominis bacteremia, treated ID following, Dr. Greenfield. 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 Olvera. S/ P debridement- dry, treated Wound cultures growing Klebsiella ESBL positive and Morganella finished treatment with zerbaxa Wound R great toe: Patient clipped the skin of the medial nailfold of right great toe weeks ago. There is small area of black discoloration. There is no indication of active infection. There may be delayed wound healing, but toes appear adequately perfused. Nothing to do at this time. Will closely monitor. Rash: Unusual appearance and presentation, neg for herpes, biopsy inconclusive. Possibly related to zinc deficiency. Improved - Zinc could not be added to TPN per pharmacy. On oral zinc sulfate replacement. - Continue zinc oxide paste to buttock Enterocutaneous fistula. Chronic per surgery, no further surgical intervention. Optimize nutrition with PO and TPN. Wound care. Hypercoagulable state: Chronic and stable History of ischemic bowel and severe peripheral vascular disease. Continue Xarelto Anxiety and depression: Stable Continue Seroquel and Zoloft. Continue Remeron. COPD: Stable. Patient with good O2 sats on room air Patient has not required any breathing treatments Pulmonary nodule. Repeat CT recommended in 6 mos. Patient previously counseled about this finding and the need to follow-up. GI protection secondary for prolonged hospitalization Protonix DVT prevention Xarelto Discharge Planning PT recommends rehabilitation. Difficult placement due to TPN use and patient was at SNF prior to hospitalization. Problem Qualifiers (1) HTN (hypertension): Qualified Code: I10 - Essential hypertension (2) Diarrhea: Qualified Code: R19.7 - Diarrhea, unspecified type Kathy Parmar Aug 26, 2016 15:38
[2016-08-26 20:00] VITALS: BP 134/76; PULSE 99; RESP 18; TEMP 97.5; O2SAT 95
[2016-08-26] MEDS: CLINIMIX E 5/25 2000 mL- >42 mls/hr IV-CENTRAL SCH ×3 (21:06)
[2016-08-26] MEDS: GABAPENTIN 100 MG CAP PO SCH (21:07)
[2016-08-26] MEDS: MIRTAZAPINE ODT 15 MG TAB PO SCH (21:07)
[2016-08-27] MEDS: ERYTHROMYCIN 0.5% OPTH OINT 3.5 GM TUBO LEFT EYE SCH ×3 (05:04→20:59)
[2016-08-27] MEDS: ALPRAZolam 0.25 MG TAB PO SCH ×3 (06:08→20:28)
[2016-08-27] MEDS: PANTOPRAZOLE SOD 20 MG DELAYED RELEASE TAB PO SCH ×2 (07:59→20:28)
[2016-08-27] MEDS: MEGESTROL ACETATE SUSP 400 MG/10 ML CUP PO SCH (07:59)
[2016-08-27 08:00] VITALS: BP 143/82; PULSE 90; RESP 20; TEMP 96.6; O2SAT 97
[2016-08-27] MEDS: FERROUS SULFATE 325 MG (65 MG ELEMENTAL IRON) TAB PO SCH (08:00)
[2016-08-27] MEDS: DILTIAZEM-CD 120 MG CAP ER PO SCH (08:00)
[2016-08-27] MEDS: LACTOBACILLUS ACIDOPHILUS TAB PO SCH ×3 (08:00→18:00)
[2016-08-27] MEDS: CALCIUM/VITAMIN D 250 MG/125 U TAB PO SCH ×2 (08:00→20:28)
[2016-08-27] MEDS: IBUPROFEN 400 MG TAB PO PRN (08:00)
[2016-08-27] MEDS: RIVAROXABAN 20 MG TAB PO SCH (08:01)
[2016-08-27] MEDS: LISINOPRIL 20 MG TAB PO SCH (08:01)
[2016-08-27] MEDS: traMADol HCL 50 MG TAB PO PRN (08:01)
[2016-08-27] MEDS: MAGNESIUM OXIDE 400 MG TAB PO SCH ×2 (08:02→20:28)
[2016-08-27] MEDS: CALCITRIOL 0.25 MCG CAP PO SCH (08:02)
[2016-08-27] MEDS: SERTRALINE HCL 100 MG TAB PO SCH (08:02)
[2016-08-27] MEDS: MULTIVITAMIN TAB PO SCH (08:02)
[2016-08-27] MEDS: DIPHENOXYLATE/ATROPINE 2.5 MG/0.025 MG TAB PO PRN (08:02)
[2016-08-27] MEDS: MUPIROCIN 2% OINT 22 GM TUBE TOPICAL SCH ×2 (08:04→20:31)
[2016-08-27] MEDS: COLLAGENASE OINT 30 GM TUBE TOP SCH (08:04)
[2016-08-27] MEDS: NYSTATIN 100,000 U/GM PWD 15 GM BTL TOPICAL SCH ×2 (08:04→20:32)
--- NOTE | 2016-08-27 08:58 | HHI.PR ---
Subjective Remarks Patient states her hair has been falling out over the last 4 days from her head , pubic region, and arms. Patient states that prior her hair was thin but was not falling out, but RN indicates that the patient's hair had fallen out a while ago stating that there is none in the pubic region. Nurse states that patient was given a mirror yesterday. Patient informed this is likely due to malnourished state. Still has diarrhea but confirms that this is a chronic issue. Objective Vitals Vital Signs Date Time Temp Pulse Resp B/P Pulse Ox O2 Delivery O2 Flow Rate FiO2 08/27/16 08:00 96.6 90 20 143/82 97 08/26/16 20:00 97.5 99 18 134/76 95 08/26/16 11:35 20 08/26/16 11:35 20 I/O 08/26/16 08/26/16 08/26/16 08/27/16 08/27/16 08/27/16 07:00 15:00 23:00 07:00 15:00 23:00 Intake Total 900 ml 600 ml 480 ml 480 ml Output Total 100 ml Balance 900 ml 600 ml 380 ml 480 ml Intake Oral 180 ml 600 ml TPN/PPN 720 ml 480 ml 480 ml Output Urine Total 100 ml # Voids 3 3 1 # Bowel Movements 3 4 1 2 Objective Remarks GENERAL: Chronically ill appearing well-developed patient in no apparent distress. SKIN: Warm and dry. Bandage over abdomen. Dry scaling skin to the right foot. Small area of black discoloration over the medial nail fold of the right great toe with small circular wound of only a few millimeters. No erythema, bleeding, or drainage. Left lower extremity stump with incisional scabbing present, but no erythema, dehiscence, or drainage. Bald spots to the head, but hair overall is sparse and thin. CARDIOVASCULAR: Regular rate and rhythm. RESPIRATORY: Limited anterior exam. No accessory muscle use. Clear to auscultation. Breath sounds equal bilaterally. GASTROINTESTINAL: Abdomen soft, nontender, nondistended. MUSCULOSKELETAL: No swelling of LLE stump. NEUROLOGICAL: Awake and alert. Normal speech. Procedures Left stump debridement by Dr. 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 (3) Hypercoagulable state ICD Code: D68.59 Status: Chronic (4) HTN (hypertension) ICD Code: I10 Status: Chronic (5) Anxiety about health ICD Code: F41.8 Status: Chronic (6) Diarrhea ICD Code: R19.7 Status: Chronic (7) Severe protein-calorie malnutrition ICD Code: E43 Status: Acute (8) Fungal skin infection ICD Code: B36.9 Status: Resolved (9) Transient lingual papillitis ICD Code: K14.0 Status: Resolved (10) Hospital acquired PNA ICD Code: J18.9 Status: Resolved (11) Major depressive disorder, recurrent severe without psychotic features ICD Code: F33.2 Status: Chronic (12) Disseminated herpes zoster ICD Code: B02.7 Status: Resolved (13) Hypokalemia ICD Code: E87.6 Status: Resolved Assessment and Plan Malnutrition: Severe protein-calorie malnutrition. 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 TPN for nutritional support as patient is not candidate for feeding tube. Continue Megace to stimulate appetite and nutritional supplements Documented continued weight loss Dietitian evaluated patient on 08/20 who indicated that weight loss may be due to inaccurate ins and outs, still recommending current TPN, lipids. Encourage by mouth intake with regular diet and Ensure 1 can tid. Patient still not eating 100% of meals. Diarrhea: Chronic secondary to short gut syndrome. Bowel movements are persistently increased this week but patient has no abdominal pain and remains afebrile. No hypotension. C. difficile testing 08/23 negative. Continue Imodium and Lomotil as needed. Will order CBC and BMP to evaluate WBC count and electrolyte status. Pain control -Ibuprofen 400 mg every 8 hours as needed for pain 15 -Ultram prn as directed Deconditioning Continue PT/OT during the patient's stay in the hospital Trapeze ordered to allow better upper body mobility but has not received yet. Hypertension Cardizem CD 120 mg daily Lisinopril 40 mg daily Monitor Staph Hominis bacteremia, treated ID following, Dr. Greenfield. 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 Olvera. S/ P debridement- dry, treated Wound cultures growing Klebsiella ESBL positive and Nila finished treatment with zerbaxa Wound R great toe: Patient clipped the skin of the medial nailfold of right great toe weeks ago. There is small area of black discoloration. There is no indication of active infection. There may be delayed wound healing, but toes appear adequately perfused. Nothing to do at this time. Will closely monitor. Rash: Unusual appearance and presentation, neg for herpes, biopsy inconclusive. Possibly related to zinc deficiency. Improved - Zinc could not be added to TPN per pharmacy. On oral zinc sulfate replacement. - Continue zinc oxide paste to buttock Enterocutaneous fistula. Chronic per surgery, no further surgical intervention. Optimize nutrition with PO and TPN. Wound care. Hypercoagulable state: Chronic and stable History of ischemic bowel and severe peripheral vascular disease. Continue Xarelto Anxiety and depression: Stable Continue Seroquel and Zoloft. Continue Remeron. COPD: Stable. Patient with good O2 sats on room air Patient has not required any breathing treatments Pulmonary nodule. Repeat CT recommended in 6 mos. Patient previously counseled about this finding and the need to follow-up. GI protection secondary for prolonged hospitalization Protonix DVT prevention Xarelto Discharge Planning PT recommends rehabilitation. Difficult placement due to TPN use and patient was at SNF prior to hospitalization. Problem Qualifiers (1) HTN (hypertension): Qualified Code: I10 - Essential hypertension (2) Diarrhea: Qualified Code: R19.7 - Diarrhea, unspecified type Kahty Parmar Aug 27, 2016 08:58
[2016-08-27] MEDS: SODIUM CHLORIDE 0.9% FLUSH 5 ML FLUSH IV FLUSH SCH ×2 (09:00→20:28)
[2016-08-27] MEDS: prednisoLONE ACETATE 1% OPHT SUSP 5 ML BTL LEFT EYE SCH ×2 (09:00→20:24)
[2016-08-27] MEDS: LOPERAMIDE HCL 2 MG CAP PO PRN ×2 (12:17→20:29)
[2016-08-27 13:46] LABS: AUTOMATED NEUTROPHIL # 4.6 TH/MM3 (1.8-7.7); BASOPHIL # 0.1 TH/MM3 (0-0.2); BASOPHIL % 0.7 % (0.0-2.0); EOSINOPHIL # 0.6 TH/MM3 (0-0.4); EOSINOPHIL % 6.6 % (0.0-4.0); HEMATOCRIT 36.6 % (35.0-46.0); HEMO FLAGS DIFF FINAL; LYMPH % 34.2 % (9.0-44.0); LYMPHOCYTE # 3.4 TH/MM3 (1.0-4.8); MEAN CELL VOLUME 93.3 FL (80.0-100.0); MEAN CORPUSCULAR HEMOGLOBIN 30.3 PG (27.0-34.0); MEAN CORPUSCULAR HGB CONC 32.5 % (32.0-36.0); MONO % 10.7 % (0.0-8.0); NEUT % 47.8 % (16.0-70.0); PLATELET COUNT 420 TH/MM3 (150-450); RED BLOOD COUNT 3.92 MIL/MM3 (4.00-5.30); WHITE BLOOD COUNT 9.8 TH/MM3 (4.0-11.0)
[2016-08-27 13:54] LABS: POTASSIUM 4.3 MEQ/L (3.5-5.1)
[2016-08-27 13:57] LABS: BICARBONATE 23.4 MEQ/L (21.0-32.0)
[2016-08-27 20:00] VITALS: BP 157/86; PULSE 101; RESP 20; TEMP 97.7; O2SAT 95
[2016-08-27] MEDS: CLINIMIX E 5/25 2000 mL- >42 mls/hr IV-CENTRAL SCH ×3 (20:27)
[2016-08-27] MEDS: FAT EMULSION 20% INJ 250 ML (Twice weekly over 8 hours) IV-CENTRAL SCH (20:27)
[2016-08-27] MEDS: GABAPENTIN 100 MG CAP PO SCH (20:28)
[2016-08-27] MEDS: MIRTAZAPINE ODT 15 MG TAB PO SCH (20:28)
[2016-08-28] MEDS: ERYTHROMYCIN 0.5% OPTH OINT 3.5 GM TUBO LEFT EYE SCH (05:28)
[2016-08-28] MEDS: ALPRAZolam 0.25 MG TAB PO SCH ×3 (05:55→20:56)
[2016-08-28] MEDS: traMADol HCL 50 MG TAB PO PRN ×2 (06:06→17:51)
[2016-08-28 08:00] VITALS: BP 142/71; PULSE 94; RESP 18; TEMP 98.7; O2SAT 95
[2016-08-28] MEDS: FERROUS SULFATE 325 MG (65 MG ELEMENTAL IRON) TAB PO SCH (09:00)
[2016-08-28] MEDS: NYSTATIN 100,000 U/GM PWD 15 GM BTL TOPICAL SCH ×2 (09:00→20:59)
[2016-08-28] MEDS: MUPIROCIN 2% OINT 22 GM TUBE TOPICAL SCH ×2 (09:00→20:59)
[2016-08-28] MEDS: MEGESTROL ACETATE SUSP 400 MG/10 ML CUP PO SCH (09:00)
[2016-08-28] MEDS: COLLAGENASE OINT 30 GM TUBE TOP SCH (09:00)
[2016-08-28] MEDS: SODIUM CHLORIDE 0.9% FLUSH 5 ML FLUSH IV FLUSH SCH ×2 (09:00→20:55)
[2016-08-28] MEDS: prednisoLONE ACETATE 1% OPHT SUSP 5 ML BTL LEFT EYE SCH (09:00)
--- NOTE | 2016-08-28 10:18 | HHI.PR ---
Subjective Remarks Follow-up for malnutrition, chronic diarrhea due to short gut syndrome, enterocutaneous fistula. Patient states that she is having bleeding and drainage from her abdomen and that it is now open over the abdomen. I discussed this with RN who states that the area appears the same as it always has and the exposed tissue is not new. Objective Vitals Vital Signs Date Time Temp Pulse Resp B/P Pulse Ox O2 Delivery O2 Flow Rate FiO2 08/28/16 08:00 98.7 94 18 142/71 95 08/27/16 20:00 97.7 101 20 157/86 95 I/O 08/27/16 08/27/16 08/27/16 08/28/16 08/28/16 08/28/16 07:00 15:00 23:00 07:00 15:00 23:00 Intake Total 480 ml 660 ml 542 ml 1159 ml Balance 480 ml 660 ml 542 ml 1159 ml Intake Oral 660 ml 462 ml TPN/PPN 480 ml 480 ml 480 ml Lipid 62 ml 217 ml # Voids 1 2 2 3 # Bowel Movements 2 1 1 Result Diagram: 08/27/16 1312 08/27/16 1312 Objective Remarks GENERAL: Chronically ill appearing well-developed patient in no apparent distress. SKIN: Warm and dry. Abdominal incision with exposed tissue, not actively bleeding. No surrounding erythema. Bandage with mild yellow drainage and blood. CARDIOVASCULAR: Regular rate and rhythm. RESPIRATORY: No accessory muscle use. Clear to auscultation. Breath sounds equal bilaterally. GASTROINTESTINAL: Normoactive bowel sounds. Abdomen nontender, nondistended. NEUROLOGICAL: Awake and alert. Normal speech. Procedures Left stump debridement by Dr. 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 (3) Hypercoagulable state ICD Code: D68.59 Status: Chronic (4) HTN (hypertension) ICD Code: I10 Status: Chronic (5) Anxiety about health ICD Code: F41.8 Status: Chronic (6) Diarrhea ICD Code: R19.7 Status: Chronic (7) Severe protein-calorie malnutrition ICD Code: E43 Status: Acute (8) Fungal skin infection ICD Code: B36.9 Status: Resolved (9) Transient lingual papillitis ICD Code: K14.0 Status: Resolved (10) Hospital acquired PNA ICD Code: J18.9 Status: Resolved (11) Major depressive disorder, recurrent severe without psychotic features ICD Code: F33.2 Status: Chronic (12) Disseminated herpes zoster ICD Code: B02.7 Status: Resolved (13) Hypokalemia ICD Code: E87.6 Status: Resolved Assessment and Plan Malnutrition: Severe protein-calorie malnutrition. 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 TPN for nutritional support as patient is not candidate for feeding tube. Continue Megace to stimulate appetite and nutritional supplements Documented continued weight loss Dietitian evaluated patient on 08/20 who indicated that weight loss may be due to inaccurate ins and outs, still recommending current TPN, lipids. Encourage by mouth intake with regular diet and Ensure 1 can tid. Monitor BGLs bid Diarrhea: Chronic secondary to short gut syndrome. Bowel movements have been persistently increased this week but patient has no abdominal pain and remains afebrile. No hypotension. C. difficile testing 08/23 negative. Continue Imodium and Lomotil as needed. 08/27 labs reviewed. CBC with normal WBC count. BMP with normal electrolytes. BUN elevated at 35, but Cr normal. PO hydration encouraged. Pain control -Ibuprofen 400 mg every 8 hours as needed for pain 15 -Ultram prn as directed Deconditioning Continue PT/OT during the patient's stay in the hospital Trapeze ordered to allow better upper body mobility but has not received yet. Hypertension Cardizem CD 120 mg daily Lisinopril 40 mg daily Monitor Staph Hominis bacteremia, treated ID following, Dr. Greenfield. 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 Olvera. S/ P debridement- dry, treated Wound cultures growing Klebsiella ESBL positive and Morganella finished treatment with zerbaxa Wound R great toe: Patient clipped the skin of the medial nailfold of right great toe weeks ago. There is small area of black discoloration. There is no indication of active infection. There may be delayed wound healing, but toes appear adequately perfused. Nothing to do at this time. Will closely monitor. Rash: Unusual appearance and presentation, neg for herpes, biopsy inconclusive. Possibly related to zinc deficiency. Improved - Zinc could not be added to TPN per pharmacy. On oral zinc sulfate replacement. - Continue zinc oxide paste to buttock - D/c ointment and Pred Forte for eye Enterocutaneous fistula. Chronic. No acute changes per RN. per surgery, no further surgical intervention. Optimize nutrition with PO and TPN. Wound care. Hypercoagulable state: Chronic and stable History of ischemic bowel and severe peripheral vascular disease. Continue Xarelto Anxiety and depression: Stable Continue Seroquel and Zoloft. Continue Remeron. COPD: Stable. Patient with good O2 sats on room air Patient has not required any breathing treatments Pulmonary nodule. Repeat CT recommended in 6 mos. Patient previously counseled about this finding and the need to follow-up. GI protection secondary for prolonged hospitalization Protonix DVT prevention Xarelto Discharge Planning PT recommends rehabilitation. Difficult placement due to TPN use and patient was at SNF prior to hospitalization. Problem Qualifiers (1) HTN (hypertension): Qualified Code: I10 - Essential hypertension (2) Diarrhea: Qualified Code: R19.7 - Diarrhea, unspecified type Kathy Parmar Aug 28, 2016 10:18
[2016-08-28] MEDS: DILTIAZEM-CD 120 MG CAP ER PO SCH (11:34)
[2016-08-28] MEDS: RIVAROXABAN 20 MG TAB PO SCH (11:34)
[2016-08-28] MEDS: MAGNESIUM OXIDE 400 MG TAB PO SCH ×2 (11:35→20:56)
[2016-08-28] MEDS: LISINOPRIL 20 MG TAB PO SCH (11:35)
[2016-08-28] MEDS: SERTRALINE HCL 100 MG TAB PO SCH (11:35)
[2016-08-28] MEDS: CALCITRIOL 0.25 MCG CAP PO SCH (11:35)
[2016-08-28] MEDS: MULTIVITAMIN TAB PO SCH (11:36)
[2016-08-28] MEDS: LACTOBACILLUS ACIDOPHILUS TAB PO SCH ×3 (11:36→17:50)
[2016-08-28] MEDS: PANTOPRAZOLE SOD 20 MG DELAYED RELEASE TAB PO SCH ×2 (11:36→20:56)
[2016-08-28] MEDS: CALCIUM/VITAMIN D 250 MG/125 U TAB PO SCH ×2 (11:36→20:55)
[2016-08-28 15:48] LABS: HEMOGLOBIN A1a 0.9 %; HEMOGLOBIN A1b 1.7 %; HEMOGLOBIN Ao 85.2 %; HEMOGLOBIN LA1C 2.1 %; HEMOGLOBIN P3 5.4 %
[2016-08-28 20:00] VITALS: BP 140/73; PULSE 101; RESP 18; TEMP 98.8; O2SAT 97
[2016-08-28] MEDS: CLINIMIX E 5/25 2000 mL- >42 mls/hr IV-CENTRAL SCH ×3 (20:55)
[2016-08-28] MEDS: GABAPENTIN 100 MG CAP PO SCH (20:56)
[2016-08-28] MEDS: LOPERAMIDE HCL 2 MG CAP PO PRN (20:56)
[2016-08-28] MEDS: MIRTAZAPINE ODT 15 MG TAB PO SCH (20:56)
[2016-08-28] MEDS: ZINC OXIDE 40% OINT 60 GM TUBE TOPICAL PRN (20:59)
[2016-08-29] MEDS: ALPRAZolam 0.25 MG TAB PO SCH ×3 (05:55→21:49)
[2016-08-29 08:00] VITALS: BP 129/76; PULSE 98; RESP 19; TEMP 96.7; O2SAT 97
[2016-08-29] MEDS: NYSTATIN 100,000 U/GM PWD 15 GM BTL TOPICAL SCH ×2 (09:00→21:00)
[2016-08-29] MEDS: MUPIROCIN 2% OINT 22 GM TUBE TOPICAL SCH ×2 (09:00→21:00)
[2016-08-29] MEDS: MEGESTROL ACETATE SUSP 400 MG/10 ML CUP PO SCH (09:00)
[2016-08-29] MEDS: SODIUM CHLORIDE 0.9% FLUSH 5 ML FLUSH IV FLUSH SCH ×2 (09:00→21:00)
[2016-08-29] MEDS: COLLAGENASE OINT 30 GM TUBE TOP SCH (09:00)
--- NOTE | 2016-08-29 09:24 | HHI.PR ---
Subjective Remarks Patient seen and examined today. Patient denies any new complaints. I counseled patient extensively on getting out of bed and eating. Objective Vitals Vital Signs Date Time Temp Pulse Resp B/P Pulse Ox O2 Delivery O2 Flow Rate FiO2 08/29/16 08:00 96.7 98 19 129/76 97 08/28/16 20:00 98.8 101 18 140/73 97 08/28/16 19:13 18 I/O 08/28/16 08/28/16 08/28/16 08/29/16 08/29/16 08/29/16 07:00 15:00 23:00 07:00 15:00 23:00 Intake Total 1159 ml 960 ml 480 ml Output Total 1 ml 1 ml Balance 1159 ml -1 ml 959 ml 480 ml Intake Oral 462 ml 480 ml TPN/PPN 480 ml 480 ml 480 ml Lipid 217 ml Stool Total 1 ml 1 ml # Voids 3 2 3 4 # Bowel Movements 1 Result Diagram: 08/27/16 1312 08/27/16 1312 Objective Remarks GENERAL: Well-developed, cachectic 6, in no acute distress. alert and orientated HEENT: Head is normocephalic without any lesions or masses noted. Facial features are symmetric. Eyes: Pupils equal round reactive to light. Extraocular muscles are intact. Conjunctivae were clear. Oropharyngeal: Pharynx without any erythema edema. Tongue is midline without deviation. Buccal mucosa is moist without any masses or lesions NECK: Supple without any masses. Trachea midline no deviation. No JVD, no bruits are appreciated CARDIAC: Regular rhythm, regular rate. S1/S2 are heard. No murmurs gallops or rubs. LUNGS: Clear to auscultation bilaterally. No wheeze, rhonchi or rales. No use of accessory muscles on inspiration or expiration. ABDOMEN: Soft, nontender. Nondistended. Bowel sounds heard in all 4 quadrants. No organomegaly or masses. Negative rebound, negative guarding EXTREMITIES: No edema, pulses are equal bilaterally. No cyanosis or clubbing. Left lower extremity stump noted without any wounds or infection NEUROLOGY: Mood and affect appear appropriate. Cranial nerves II through XII grossly intact. Moving all extremities, speech is clear Procedures Left stump debridement by Dr. Hill on 06/15/16 Urinary Catheter: No Vascular Central Line Catheter: Yes Assessment to: Continue Date of Insertion: Jun 20, 2016 Side: Left A/P Assessment and Plan Malnutrition: Severe protein-calorie malnutrition C diff negative. TPN for nutritional support Continue Megace to stimulate appetite and Nutritional supplements Documented continue weight loss, consult dietary for further recommendations Dietitian consulted who indicated that weight loss may be due to inaccurate ins and outs, still recommending current TPN, lipids. Encourage by mouth intake , nutritional supplements Diarrhea-likely secondary to short gut syndrome, improved Continue Imodium, Lomotil C. difficile testing 08/23 negative Pain control Patient has not required any breakthrough pain medications in 2 days, so methadone was discontinued, patient still complaining of pain that is not covered by [facility] Ibuprofen 400 mg every 8 hours as needed for pain 15 [facility] 5 mg every 6 hours as needed for pain 610, change to Ultram Deconditioning Continue PT/OT during the patient's stay in the hospital Hypertension Cardizem CD 120 mg daily Lisinopril 40 mg daily Staph Hominis bacteremia, treated ID following, Dr. Greenfeild. 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 Dr. Sergio kuo. S/P debridement- dry, treated Wound cultures growing Klebsiella ESBL positive and Morganella finished treatment with zerbaxa Wound right great toe No signs of acute infection or abnormality at this time Continue monitor Rash: Unusual appearance and presentation, neg for herpes, biopsy inconclusive. Possibly related to zinc deficiency. Improved - Zinc could not be added to TPN per pharmacy. on oral zinc sulfate replacement. - Continue zinc oxide paste to buttock Enterocutaneous fistula. Chronic per surgery, no further surgical intervention. Optimize nutrition with PO and TPN. wound care. Hypercoagulable state: Chronic and stable History of ischemic bowel and severe peripheral vascular disease. Continue Xarelto Anxiety and depression: Stable Continue Seroquel and Zoloft. Continue Remeron. COPD: Stable. Patient with good O2 sats on room air Patient has not required any breathing treatments Pulmonary nodule. Repeat CT recommended in 6 mos. Patient previously counseled about this finding and the need to follow-up. GI protection secondary for prolonged hospitalization Protonix DVT prevention Xarelto Discharge Planning 08/24/16 1126 CONT TO FOLLOW AND ATTEMPT TO FIND PLACEMENT. 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 NURSING FACILITIES WILL NOT ACCEPT PATIENTS WITH [facility]/NO END DATE NEED FOR TPN. WE CONT TO MONITOR PROGRESS AND AND DIET CHANGES. 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
[2016-08-29] MEDS: RIVAROXABAN 20 MG TAB PO SCH (09:44)
[2016-08-29] MEDS: MULTIVITAMIN TAB PO SCH (09:44)
[2016-08-29] MEDS: PANTOPRAZOLE SOD 20 MG DELAYED RELEASE TAB PO SCH ×2 (09:45→21:49)
[2016-08-29] MEDS: DILTIAZEM-CD 120 MG CAP ER PO SCH (09:45)
[2016-08-29] MEDS: LACTOBACILLUS ACIDOPHILUS TAB PO SCH ×3 (09:45→18:00)
[2016-08-29] MEDS: CALCITRIOL 0.25 MCG CAP PO SCH ×2 (09:45→21:50)
[2016-08-29] MEDS: LISINOPRIL 20 MG TAB PO SCH (09:45)
[2016-08-29] MEDS: FERROUS SULFATE 325 MG (65 MG ELEMENTAL IRON) TAB PO SCH (09:45)
[2016-08-29] MEDS: MAGNESIUM OXIDE 400 MG TAB PO SCH ×2 (09:45→21:50)
[2016-08-29] MEDS: SERTRALINE HCL 100 MG TAB PO SCH (09:45)
[2016-08-29] MEDS: CALCIUM/VITAMIN D 250 MG/125 U TAB PO SCH ×2 (09:45→21:49)
[2016-08-29] MEDS: LOPERAMIDE HCL 2 MG CAP PO PRN (11:33)
[2016-08-29] MEDS: traMADol HCL 50 MG TAB PO PRN (13:14)
[2016-08-29 20:00] VITALS: BP 104/70; PULSE 109; RESP 20; TEMP 96.8; O2SAT 96
[2016-08-29] MEDS: MIRTAZAPINE ODT 15 MG TAB PO SCH (21:00)
[2016-08-29] MEDS: GABAPENTIN 100 MG CAP PO SCH (21:49)
[2016-08-29] MEDS: CLINIMIX E 5/25 2000 mL- >42 mls/hr IV-CENTRAL SCH ×3 (21:54)
[2016-08-30] MEDS: ALPRAZolam 0.25 MG TAB PO SCH ×3 (06:20→22:55)
[2016-08-30 08:00] VITALS: BP 140/68; PULSE 103; RESP 18; TEMP 98.7; O2SAT 97
--- NOTE | 2016-08-30 08:10 | HHI.PR ---
Subjective Remarks Patient seen and examined today. Patient denies any new complaints. Patient did get out of bed yesterday one time. Discussed with her the need to get out of bed more than 1 time a day. The patient on improved eating Objective Vitals Vital Signs Date Time Temp Pulse Resp B/P Pulse Ox O2 Delivery O2 Flow Rate FiO2 08/29/16 20:00 96.8 109 20 104/70 96 I/O 08/29/16 08/29/16 08/29/16 08/30/16 08/30/16 08/30/16 07:00 15:00 23:00 07:00 15:00 23:00 Intake Total 480 ml 500 ml 240 ml 900 ml Output Total 3 ml Balance 480 ml 500 ml 237 ml 900 ml Intake Oral 500 ml 240 ml 480 ml TPN/PPN 480 ml 420 ml Output Urine Total 3 ml # Voids 4 3 4 # Bowel Movements 3 3 1 Result Diagram: 08/27/16 1312 08/27/16 1312 Objective Remarks GENERAL: Well-developed, cachectic 6, in no acute distress. alert and orientated HEENT: Head is normocephalic without any lesions or masses noted. Facial features are symmetric. Eyes: Pupils equal round reactive to light. Extraocular muscles are intact. Conjunctivae were clear. Oropharyngeal: Pharynx without any erythema edema. Tongue is midline without deviation. Buccal mucosa is moist without any masses or lesions NECK: Supple without any masses. Trachea midline no deviation. No JVD, no bruits are appreciated CARDIAC: Regular rhythm, regular rate. S1/S2 are heard. No murmurs gallops or rubs. LUNGS: Clear to auscultation bilaterally. No wheeze, rhonchi or rales. No use of accessory muscles on inspiration or expiration. ABDOMEN: Soft, nontender. Nondistended. Bowel sounds heard in all 4 quadrants. No organomegaly or masses. Negative rebound, negative guarding EXTREMITIES: No edema, pulses are equal bilaterally. No cyanosis or clubbing. Left lower extremity stump noted without any wounds or infection NEUROLOGY: Mood and affect appear appropriate. Cranial nerves II through XII grossly intact. Moving all extremities, speech is clear Procedures Left stump debridement by Dr. Hill on 06/15/16 Urinary Catheter: No Vascular Central [facility]: [facility] ([facility]) Assessment to: Continue Date of Insertion: Jun 20, 2016 Side: Left A/P Assessment and Plan Malnutrition: Severe protein-calorie malnutrition C diff negative. TPN for nutritional support Continue Megace to stimulate appetite and Nutritional supplements Documented continue weight loss, consult dietary for further recommendations Dietitian consulted who indicated that weight loss may be due to inaccurate ins and outs, still recommending current TPN, lipids. Encourage by mouth intake , nutritional supplements Pre-albumin is pending Diarrhea-likely secondary to short gut syndrome, improved Continue Imodium, Lomotil C. difficile testing 08/23 negative Pain control Patient has not required any breakthrough pain medications in 2 days, so methadone was discontinued, patient still complaining of pain that is not covered by [place] Ibuprofen 400 mg every 8 hours as needed for pain 15 Tramadol 5 mg every 6 hours as needed for pain 610 Deconditioning Continue PT/OT during the patient's stay in the hospital Emphasized the patient the need to get out of bed multiple times throughout the day Hypertension Cardizem CD 120 mg daily Lisinopril 40 mg daily Staph Hominis bacteremia, treated ID following, Dr. Greenfield. 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 Dr. Sergio kuo. S/P debridement- dry, treated Wound cultures growing Klebsiella ESBL positive and Morganella finished treatment with zerbaxa Wound right great toe No signs of acute infection or abnormality at this time Continue monitor Rash: Unusual appearance and presentation, neg for herpes, biopsy inconclusive. Possibly related to zinc deficiency. Improved - Zinc could not be added to TPN per pharmacy. on oral zinc sulfate replacement. - Continue zinc oxide paste to buttock Enterocutaneous fistula. Chronic per surgery, no further surgical intervention. Optimize nutrition with PO and TPN. wound care. Hypercoagulable state: Chronic and stable History of ischemic bowel and severe peripheral vascular disease. Continue Xarelto Anxiety and depression: Stable Continue Seroquel and Zoloft. Continue Remeron. COPD: Stable. Patient with good O2 sats on room air Patient has not required any breathing treatments Pulmonary nodule. Repeat CT recommended in 6 mos. Patient previously counseled about this finding and the need to follow-up. GI protection secondary for prolonged hospitalization Protonix DVT prevention Xarelto Discharge Planning 08/24/16 1126 CONT TO FOLLOW AND ATTEMPT TO FIND PLACEMENT. THIS IS A VERY COMPLEX CASE R/T NEED FOR [facility] TPN [place]. NURSING FACILITIES WILL NOT ACCEPT PATIENTS WITH ENVIRONMENTAL SAMPLER/NO END DATE NEED FOR TPN. WE CONT TO MONITOR PROGRESS AND AND DIET CHANGES. WILL CONT TO LOOK FOR ACCEPTING PLACEMENT DANDY LONG COMPUT[employer] SECURITY SPECIALIST/CM Chase Anne Aug 30, 2016 08:10
[2016-08-30] MEDS: LACTOBACILLUS ACIDOPHILUS TAB PO SCH ×3 (08:59→17:02)
[2016-08-30] MEDS: MULTIVITAMIN TAB PO SCH (08:59)
[2016-08-30] MEDS: SERTRALINE HCL 100 MG TAB PO SCH (08:59)
[2016-08-30] MEDS: MAGNESIUM OXIDE 400 MG TAB PO SCH ×2 (08:59→21:46)
[2016-08-30] MEDS: SODIUM CHLORIDE 0.9% FLUSH 5 ML FLUSH IV FLUSH SCH ×2 (09:00→21:00)
[2016-08-30] MEDS: LISINOPRIL 20 MG TAB PO SCH (09:00)
[2016-08-30] MEDS: CALCIUM/VITAMIN D 250 MG/125 U TAB PO SCH ×2 (09:01→21:47)
[2016-08-30] MEDS: RIVAROXABAN 20 MG TAB PO SCH (09:01)
[2016-08-30] MEDS: DILTIAZEM-CD 120 MG CAP ER PO SCH (09:01)
[2016-08-30] MEDS: FERROUS SULFATE 325 MG (65 MG ELEMENTAL IRON) TAB PO SCH (09:01)
[2016-08-30] MEDS: PANTOPRAZOLE SOD 20 MG DELAYED RELEASE TAB PO SCH ×2 (09:02→21:46)
[2016-08-30] MEDS: MEGESTROL ACETATE SUSP 400 MG/10 ML CUP PO SCH (09:02)
[2016-08-30] MEDS: NYSTATIN 100,000 U/GM PWD 15 GM BTL TOPICAL SCH ×2 (09:06→22:56)
[2016-08-30] MEDS: COLLAGENASE OINT 30 GM TUBE TOP SCH (09:07)
[2016-08-30] MEDS: MUPIROCIN 2% OINT 22 GM TUBE TOPICAL SCH ×2 (09:08→22:56)
[2016-08-30] MEDS: LOPERAMIDE HCL 2 MG CAP PO PRN (10:08)
[2016-08-30 20:13] VITALS: BP 139/73; PULSE 103; RESP 18; TEMP 98.1; O2SAT 96
[2016-08-30] MEDS: MIRTAZAPINE ODT 15 MG TAB PO SCH (21:46)
[2016-08-30] MEDS: GABAPENTIN 100 MG CAP PO SCH (21:46)
[2016-08-30] MEDS: CLINIMIX E 5/25 2000 mL- >42 mls/hr IV-CENTRAL SCH ×3 (22:57)
[2016-08-30] MEDS: FAT EMULSION 20% INJ 250 ML (Twice weekly over 8 hours) IV-CENTRAL SCH (22:57)
[2016-08-30] MEDS: traMADol HCL 50 MG TAB PO PRN (23:20)
[2016-08-31] MEDS: LOPERAMIDE HCL 2 MG CAP PO PRN ×3 (01:00→20:47)
[2016-08-31] MEDS: ALPRAZolam 0.25 MG TAB PO SCH ×3 (07:31→20:46)
[2016-08-31 08:00] VITALS: BP 180/84; PULSE 121; RESP 18; TEMP 99.1; O2SAT 95
[2016-08-31] MEDS: RIVAROXABAN 20 MG TAB PO SCH (08:41)
[2016-08-31] MEDS: FERROUS SULFATE 325 MG (65 MG ELEMENTAL IRON) TAB PO SCH (08:41)
[2016-08-31] MEDS: MULTIVITAMIN TAB PO SCH (08:41)
[2016-08-31] MEDS: CALCITRIOL 0.25 MCG CAP PO SCH (08:41)
[2016-08-31] MEDS: LACTOBACILLUS ACIDOPHILUS TAB PO SCH ×3 (08:41→17:14)
[2016-08-31] MEDS: MAGNESIUM OXIDE 400 MG TAB PO SCH ×2 (08:42→20:36)
[2016-08-31] MEDS: LISINOPRIL 20 MG TAB PO SCH (08:42)
[2016-08-31] MEDS: SERTRALINE HCL 100 MG TAB PO SCH (08:42)
[2016-08-31] MEDS: CALCIUM/VITAMIN D 250 MG/125 U TAB PO SCH ×2 (08:43→20:37)
[2016-08-31] MEDS: PANTOPRAZOLE SOD 20 MG DELAYED RELEASE TAB PO SCH ×2 (08:43→20:36)
[2016-08-31] MEDS: DILTIAZEM-CD 120 MG CAP ER PO SCH (08:43)
[2016-08-31] MEDS: MEGESTROL ACETATE SUSP 400 MG/10 ML CUP PO SCH (08:44)
[2016-08-31] MEDS: SODIUM CHLORIDE 0.9% FLUSH 5 ML FLUSH IV FLUSH SCH ×2 (08:45→20:36)
[2016-08-31] MEDS: NYSTATIN 100,000 U/GM PWD 15 GM BTL TOPICAL SCH ×2 (08:46→20:40)
[2016-08-31] MEDS: COLLAGENASE OINT 30 GM TUBE TOP SCH (08:47)
[2016-08-31] MEDS: MUPIROCIN 2% OINT 22 GM TUBE TOPICAL SCH ×2 (08:47→20:41)
--- NOTE | 2016-08-31 08:54 | HHI.PR ---
Subjective Remarks Patient seen and examined today. Patient states that she is concerned about her fistula. There is now tissue coming out which wasn't there before. Objective Vitals Vital Signs Date Time Temp Pulse Resp B/P Pulse Ox O2 Delivery O2 Flow Rate FiO2 08/31/16 08:00 99.1 121 18 180/84 95 08/30/16 20:13 98.1 103 18 139/73 96 I/O 08/30/16 08/30/16 08/30/16 08/31/16 08/31/16 08/31/16 07:00 15:00 23:00 07:00 15:00 23:00 Intake Total 900 ml 420 ml 780 ml Balance 900 ml 420 ml 780 ml Intake Oral 480 ml 420 ml TPN/PPN 420 ml 780 ml # Voids 4 2 3 6 # Bowel Movements 1 2 4 4 Result Diagram: 08/27/16 1312 08/27/16 1312 Objective Remarks GENERAL: Well-developed, cachectic 6, in no acute distress. alert and orientated HEENT: Head is normocephalic without any lesions or masses noted. Facial features are symmetric. Eyes: Pupils equal round reactive to light. Extraocular muscles are intact. Conjunctivae were clear. Oropharyngeal: Pharynx without any erythema edema. Tongue is midline without deviation. Buccal mucosa is moist without any masses or lesions NECK: Supple without any masses. Trachea midline no deviation. No JVD, no bruits are appreciated CARDIAC: Regular rhythm, regular rate. S1/S2 are heard. No murmurs gallops or rubs. LUNGS: Clear to auscultation bilaterally. No wheeze, rhonchi or rales. No use of accessory muscles on inspiration or expiration. ABDOMEN: Soft, nontender. Nondistended. Bowel sounds heard in all 4 quadrants. No organomegaly or masses. Negative rebound, negative guarding EXTREMITIES: No edema, pulses are equal bilaterally. No cyanosis or clubbing. Left lower extremity stump noted without any wounds or infection NEUROLOGY: Mood and affect appear appropriate. Cranial nerves II through XII grossly intact. Moving all extremities, speech is clear Procedures Left stump debridement by Dr. Hill on 06/15/16 Urinary Catheter: No Vascular Central Line Catheter: Yes Assessment to: Continue Date of Insertion: Jun 20, 2016 Side: Left A/P Assessment and Plan Malnutrition: Severe protein-calorie malnutrition C diff negative. TPN for nutritional support Continue Megace to stimulate appetite and Nutritional supplements Documented continue weight loss, consult dietary for further recommendations Dietitian consulted who indicated that weight loss may be due to inaccurate ins and outs, still recommending current TPN, lipids. Encourage by mouth intake , nutritional supplements Pre-albumin is much improved at 39 Diarrhea-likely secondary to short gut syndrome, improved Continue Imodium, Lomotil C. difficile testing 08/23 negative Pain control Patient has not required any breakthrough pain medications in 2 days, so methadone was discontinued, patient still complaining of pain that is not covered by [place] Ibuprofen 400 mg every 8 hours as needed for pain 15 Tramadol 5 mg every 8 hours as needed for pain 610 Deconditioning Continue PT/OT during the patient's stay in the hospital Emphasized the patient the need to get out of bed multiple times throughout the day Hypertension Cardizem CD 120 mg daily, increase to Cardizem 186 blood pressure is still mildly elevated and mildly tachycardic Lisinopril 40 mg daily Staph Hominis bacteremia, treated ID following, Dr. Greenfield. 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 Dr. Sergio kuo. S/P debridement- dry, treated Wound cultures growing Klebsiella ESBL positive and Morganella finished treatment with zerbaxa Wound right great toe No signs of acute infection or abnormality at this time Continue monitor Rash: Unusual appearance and presentation, neg for herpes, biopsy inconclusive. Possibly related to zinc deficiency. Improved - Zinc could not be added to TPN per pharmacy. on oral zinc sulfate replacement. - Continue zinc oxide paste to buttock Enterocutaneous fistula. Now with tissue protruding from opening Discuss with Dr. Olvera, he plans on coming seen the patient today for further recommendations Hypercoagulable state: Chronic and stable History of ischemic bowel and severe peripheral vascular disease. Continue Xarelto Anxiety and depression: Stable Continue Seroquel and Zoloft. Continue Remeron. COPD: Stable. Patient with good O2 sats on room air Patient has not required any breathing treatments Pulmonary nodule. Repeat CT recommended in 6 mos. Patient previously counseled about this finding and the need to follow-up. GI protection secondary for prolonged hospitalization Protonix DVT prevention Xarelto Discharge Planning 08/24/16 1126 CONT TO FOLLOW AND ATTEMPT TO FIND PLACEMENT. THIS IS A VERY COMPLEX CASE R/T NEED FOR SNF TPN [place]. NURSING FACILITIES WILL NOT ACCEPT PATIENTS WITH YIELD LOSS INSPECTOR/NO END DATE NEED FOR TPN. WE CONT TO MONITOR PROGRESS AND AND DIET CHANGES. WILL CONT TO LOOK FOR ACCEPTING PLACEMENT DANDY LONG VIDEO SPECIALIST/CM Chase Anne Aug 31, 2016 08:54
[2016-08-31 20:00] VITALS: BP 134/75; PULSE 118; RESP 20; TEMP 98; O2SAT 97
[2016-08-31] MEDS: CLINIMIX E 5/25 2000 mL- >42 mls/hr IV-CENTRAL SCH ×3 (20:35)
[2016-08-31] MEDS: MIRTAZAPINE ODT 15 MG TAB PO SCH (20:36)
[2016-08-31] MEDS: GABAPENTIN 100 MG CAP PO SCH (20:36)
[2016-08-31] MEDS: traMADol HCL 50 MG TAB PO PRN (20:46)
[2016-09-01] MEDS: ALPRAZolam 0.25 MG TAB PO SCH ×3 (05:50→20:55)
[2016-09-01] MEDS: LOPERAMIDE HCL 2 MG CAP PO PRN ×2 (05:50→21:03)
[2016-09-01 08:00] VITALS: BP 131/71; PULSE 102; RESP 18; TEMP 98.7; O2SAT 97
--- NOTE | 2016-09-01 08:20 | HHI.PR ---
Subjective Remarks Patient seen and examined today. Patient denies any new complaints. No change in clinical status. Objective Vitals Vital Signs Date Time Temp Pulse Resp B/P Pulse Ox O2 Delivery O2 Flow Rate FiO2 08/31/16 20:00 98.0 118 20 134/75 97 I/O 08/31/16 08/31/16 08/31/16 09/01/16 09/01/16 09/01/16 07:00 15:00 23:00 07:00 15:00 23:00 Intake Total 240 ml 2325 ml Output Total 250 ml Balance 240 ml 2075 ml Intake Oral 240 ml 500 ml IV Total 1825 ml Output Urine Total 250 ml # Voids 6 3 # Bowel Movements 4 2 1 1 Objective Remarks GENERAL: Well-developed, cachectic 6, in no acute distress. alert and orientated HEENT: Head is normocephalic without any lesions or masses noted. Facial features are symmetric. Eyes: Pupils equal round reactive to light. Extraocular muscles are intact. Conjunctivae were clear. Oropharyngeal: Pharynx without any erythema edema. Tongue is midline without deviation. Buccal mucosa is moist without any masses or lesions NECK: Supple without any masses. Trachea midline no deviation. No JVD, no bruits are appreciated CARDIAC: Regular rhythm, regular rate. S1/S2 are heard. No murmurs gallops or rubs. LUNGS: Clear to auscultation bilaterally. No wheeze, rhonchi or rales. No use of accessory muscles on inspiration or expiration. ABDOMEN: Soft, nontender. Nondistended. Bowel sounds heard in all 4 quadrants. No organomegaly or masses. Negative rebound, negative guarding. Patient has enterocutaneous fistula with pedunculated granulated tissue measuring 1 cm x 3 cm protruding out of the fistula. Continues to have serosanguineous drainage EXTREMITIES: No edema, pulses are equal bilaterally. No cyanosis or clubbing. Left lower extremity stump noted without any wounds or infection NEUROLOGY: Mood and affect appear appropriate. Cranial nerves II through XII grossly intact. Moving all extremities, speech is clear Procedures Left stump debridement by Dr. Hill on 06/15/16 Urinary Catheter: No Vascular Central Line Catheter: Yes Assessment to: Continue Date of Insertion: Jun 20, 2016 Side: Left A/P Assessment and Plan Malnutrition: Severe protein-calorie malnutrition C diff negative. TPN for nutritional support Continue Megace to stimulate appetite and Nutritional supplements Documented continue weight loss, consult dietary for further recommendations Dietitian consulted who indicated that weight loss may be due to inaccurate ins and outs, still recommending current TPN, lipids. Encourage by mouth intake , nutritional supplements Pre-albumin is much improved at 39 Diarrhea-likely secondary to short gut syndrome, improved Continue Imodium, Lomotil C. difficile testing 08/23 negative Pain control Patient has not required any breakthrough pain medications in 2 days, so methadone was discontinued, patient still complaining of pain that is not covered by [place] Ibuprofen 400 mg every 8 hours as needed for pain 15 Tramadol 5 mg every 8 hours as needed for pain 610 Deconditioning Continue PT/OT during the patient's stay in the hospital Emphasized the patient the need to get out of bed multiple times throughout the day Hypertension Cardizem CD 180 mg daily, Lisinopril 40 mg daily Staph Hominis bacteremia, treated ID following, Dr. Greenfield. 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 Dr. Sergio kuo. S/P debridement- dry, treated Wound cultures growing Klebsiella ESBL positive and Morganella finished treatment with zerbaxa Wound right great toe No signs of acute infection or abnormality at this time Continue monitor Rash: Unusual appearance and presentation, neg for herpes, biopsy inconclusive. Possibly related to zinc deficiency. Improved - Zinc could not be added to TPN per pharmacy. on oral zinc sulfate replacement. - Continue zinc oxide paste to buttock Enterocutaneous fistula. Now with tissue protruding from opening Discussed with Dr. Olvera, he states that he was going to come see the patient and evaluate for further recommendations Hypercoagulable state: Chronic and stable History of ischemic bowel and severe peripheral vascular disease. Continue Xarelto Anxiety and depression: Stable Continue Seroquel and Zoloft. Continue Remeron. COPD: Stable. Patient with good O2 sats on room air Patient has not required any breathing treatments Pulmonary nodule. Repeat CT recommended in 6 mos. Patient previously counseled about this finding and the need to follow-up. GI protection secondary for prolonged hospitalization Protonix DVT prevention Xarelto Discharge Planning 08/31/16 PATIENT REMAINS HOSPITALIZED FOR SEVER PROTEIN-CALORIE MALNUTRITION. SHE IS RECEIVING TPN AND LIPIDS. PATIENT HAS [employer] FOR [employer] S[employer] BUT SNF PLACEMENT IS DIFFICULT DUE TO NOT HAVE DEFINITE END DATE FOR TPN. PATIENT ALSO CONTINUES WITH DIARRHE SECONDARY TO SHORT GUT SYNDROME. SHE IS ENCOURAGE FOR PO INTAKE AND NUTRITIONAL SUPPLEMENTS. CM CONTINUES TO ATTEMPT TO LOCATE A FACILITY THAT IS WILLING TO TAKE HER UNDER THESE CONDITIONS. CM FOLLOWING. Chase Anne Sep 01, 2016 08:20
[2016-09-01] MEDS: SODIUM CHLORIDE 0.9% FLUSH 5 ML FLUSH IV FLUSH SCH ×2 (09:00→20:52)
[2016-09-01] MEDS: COLLAGENASE OINT 30 GM TUBE TOP SCH (09:00)
[2016-09-01] MEDS: CALCITRIOL 0.25 MCG CAP PO SCH (09:47)
[2016-09-01] MEDS: MEGESTROL ACETATE SUSP 400 MG/10 ML CUP PO SCH (09:47)
[2016-09-01] MEDS: MULTIVITAMIN TAB PO SCH (09:48)
[2016-09-01] MEDS: CALCIUM/VITAMIN D 250 MG/125 U TAB PO SCH ×2 (09:48→20:54)
[2016-09-01] MEDS: LACTOBACILLUS ACIDOPHILUS TAB PO SCH ×3 (09:48→18:54)
[2016-09-01] MEDS: LISINOPRIL 20 MG TAB PO SCH (09:48)
[2016-09-01] MEDS: DILTIAZEM-CD 180 MG CAP ER PO SCH (09:49)
[2016-09-01] MEDS: RIVAROXABAN 20 MG TAB PO SCH (09:50)
[2016-09-01] MEDS: FERROUS SULFATE 325 MG (65 MG ELEMENTAL IRON) TAB PO SCH (09:51)
[2016-09-01] MEDS: PANTOPRAZOLE SOD 20 MG DELAYED RELEASE TAB PO SCH ×2 (09:51→20:54)
[2016-09-01] MEDS: MAGNESIUM OXIDE 400 MG TAB PO SCH ×2 (09:52→20:54)
[2016-09-01] MEDS: NYSTATIN 100,000 U/GM PWD 15 GM BTL TOPICAL SCH ×2 (10:18→20:55)
[2016-09-01] MEDS: MUPIROCIN 2% OINT 22 GM TUBE TOPICAL SCH ×2 (10:18→20:55)
[2016-09-01] MEDS: SERTRALINE HCL 100 MG TAB PO SCH (10:26)
--- NOTE | 2016-09-01 12:32 | PD.CAR.PN ---
CVT Progress Note Subjective/Hospital Course: 70-year-old female with a complex medical and surgical history of peripheral vascular disease and multiple related problems presents now status post BK amputation about a month half ago. Patient went to [facility] and apparently braced herself on the stump several times in bed in hit it against either floor or the chair not quite clear. Part of the stump opened up and at this point patient is dehiscence of skin deeper tissue seemed to be still intact. 06/16/16 Patient underwent yesterday debridement of the stump with wound VAC placement. The dehiscence is fortunately superficial involving skin and muscle in this as been debrided successfully while the rest of the tissues of bleeding and are viable. Wound VAC has been placed Cultures have been reviewed and antibiotics can be adjusted by medicine as appropriate We'll continue current care and patient should be able to go to [facility] with a wound VAC by Sunday Patient's nutritional status is very poor with a low albumen and prealbumin level and therefore nutritional evaluation and recommendations are requested I believe the patient is not taking sufficient by mouth in the [facility] and may need supplemental enteral or parenteral feedings at this point 06/17/16 I reviewed the nutritional parameters and patient's prealbumin and transferrin levels a critically low indicating severe malnutrition. Patient's healing is impaired and so is the rehabilitative potential. After reviewing to nutritional recommendations once these are made, we will decide whether patient needs an [id number]-p-[id number] placed for additional parenteral nutrition for short bowel syndrome Stump is nice and clean with minimal drainage from the wound VAC 06/19/16 Still awaiting nutritional consult and evaluation for patient has short gut syndrome and will probably need additional parenteral feedings. If so patient will need [id number]-v-Ciby placement for additional feedings Patient is taking excellent by mouth but despite that her nutritional status is poor and hence the healing issues Left BKA stump incision is clean and wound VAC is in place with minimal drainage and will need to be changed today Awaiting wound care to change the wound VAC. Infectious disease help is much appreciated 06/20/2016 Patient doing well at this time. Stump is clean and the wound VAC will be changed today Patient had [id number]-Pyrj placed by radiology for supplemental parenteral feedings. Grateful for the nutritional evaluation. Patient will be placed on TPN at about the 1500 non-protein calories a day split about 60-70% in glucose and about 30% in form of lipids Patient will likely have to be discharged on supplemental TPN in face of her short bowel syndrome 06/21/16 Patient is doing really well at this time She's taking good by mouth diet. 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 There is some granulation tissue which may eventually need to be debrided but at this point I would leave it alone. Stump wound VAC has been changed and this is clean and granulating nicely. Patient is currently on TPN which tolerating well. In face of her short bowel syndrome patient will need TPN after discharge from the hospital. Grateful to case management for making arrangements for the same 06/22/16 Vital signs stable patient is doing well. Her appetite has improved and patient is taking good by mouth diet and having regular bowel movements. The abdominal incision is completely healed and fistula has completely resolved. The BKA wound VAC has been changed and wound is clean and granulating nicely. Krcdrc-n-Fnov is being used for additional parenteral feedings necessary and short bowel syndrome and patient will be discharged on TPN. 06/23/16 Patient underwent today change of the wound VAC and the wound is clean. Next with will be the last wound VAC change and after that I plan to take the patient to the OR for irrigation and closure of the wound by the middle of the next week. 06/24/16 Patient doing very well at this time she is in a good mood and taking by mouth diet well Unfortunately due to the short bowel syndrome she need supplemental TPN feedings at this time Stump is healed nicely there is a small scab anterior to it and this should allow to fall off on its own Once the arrangements are made for outpatient TPN patient will be able to be discharged Awaiting case management to make the arrangements for outpatient TPN 06/25/16 Vital signs stable Patient is awake and alert and oriented, taking by mouth diet very well Abdomen is soft and the colocutaneous fistula is completely closed The BKA stump has an eschar and a scab but I would leave this alone because underneath its healing nicely. Patient remains on TPN considering the short gut syndrome and will go home on the same Mild anemia is dilutional due to TPN administration and intravenous fluids and does not require therapy at this time 06/26/16 Vital signs stable Patient is awake and alert and oriented, taking by mouth diet very well Abdomen is soft and the colocutaneous fistula is completely closed The BKA stump has an eschar and a scab but I would leave this alone because underneath its healing nicely. Patient remains on TPN considering the short gut syndrome and will go home on the same Mild anemia is dilutional due to TPN administration and intravenous fluids and does not require therapy at this time 06/27/16 Wound VAC has been removed by me and the the entire stump is healed very nicely except a small area but an inch length at the very lateral portion of the incision were we going to put a very small wound VAC on for another week or so. Patient can transfer to rehabilitation at any time as long as she can get intravenous TPN in the process 06/28/16 Wound VAC has been removed by me and the the entire stump is healed very nicely except a small area but an inch length at the very lateral portion of the incision were we going to put a very small wound VAC on for another week or so. Patient can transfer to rehabilitation at any time as long as she can get intravenous TPN Patient will need prison TPN considering short gut syndrome and this can be done either in a [facility] or at home I suspect this will be about a six-month process and after that patient may not need additional feedings if we can get her in a reasonable nutritional status in the meantime. I understand the difficulty this creates for case management to find her such an arrangement 06/29/16 Patient doing really well at this time taking good by mouth but due to the short bowel syndrome will require long-term TPN Stump is healing really nicely and the probably after this week we will remove the wound VAC and simply place wet-to-dry dressing and allow this to heal 06/30/16 Patient is doing well tolerates diet. Abdomen is soft with active bowel sounds Incisions are clean and dry Wound VAC last change will be next week and after that we going to remove the wound VAC and continue wet-to-dry dressing Stump is healing really nicely Due to TPN and other issues placement remains a problem 07/01/16 Abdomen soft and active bowel sounds Tolerates diet well Stump is clean and dry and I'll remove the wound VAC on Sunday after that patient will just be on wet-to-dry dressings until the stump heels Arrangements for discharge to difficult due to long-term TPN needs 07/03/16 Vital signs stable Stump is clean and wound VAC after next removal won't need to be applied again Patient will remain long-term on TPN and I'm waiting for case management to make discharge arrangements Will [facility] medicine kindly if patient can be transferred to medicine service at this time 07/14/16 Patient is a placement issue apparently is still in the hospital The left BKA stump is healed nicely except for very small air about 1 cm which is granulating in on the lateral aspect of the stump Apparently the enterocutaneous fistula was close for about month and a half and opened up 2 days ago draining some stool It should be noted that the bowel is quite close to the skin and patient is very thin and malnourished so it is not surprising that fistula opens and closes sporadically. With enteral and parenteral nutrition that should close but clearly patient is very frail and it could open up any time Nothing to add to care at this time 07/26/16 Discussed the patient with medical attending. She has systemic cutaneous herpes zoster and is on appropriate medications The drainage from anterior abdominal wall is very minimal however irritating to the skin of the abdominal wall in face of herpes and the nature of intestinal fluid. Just putting dressings will only worsen the situation so patient should be treated with the stoma and coverage of the skin. Unfortunately the colostomy material will not stick to the skin and the contents will leak underneath it. At point is best solution was due to apply Silvadene ointment daily and then dressing Patient's appetite is very poor sure refuses food and she remains on TPN although her GI tract is completely patent Her prognosis in general is for due to malnutrition short bowel syndrome and immune failure. 09/01/16 Patient seen at [facility]. Patient has tremendously improved in the last month or so. The rash she had has since disappeared I am not sure this was a herpetic rash or perhaps caused by zinc or selenium deficiency At this point patient is eating well and she is again about 15 pounds. Her short bowel syndrome as being managed adequately with improvement of by mouth intake and modification of the diet Abdomen is soft with active bowel sounds and the fistula has closed There is small amount of preperitoneal fat extruding from the abdomen incision. I debrided this at the bedside In the worse case scenario patient would have to go to the operating room to have this cauterized away and reclosed but I would certainly like to avoid this in this lady was finally recovering nicely Objective: Vital Signs Date Time Temp Pulse Resp B/P Pulse Ox O2 Delivery O2 Flow Rate FiO2 09/01/16 08:00 98.7 102 18 131/71 97 08/31/16 20:00 98.0 118 20 134/75 97 Janice Olvera MD Sep 01, 2016 12:32
--- NOTE | 2016-09-01 15:36 | HHI.HCPN ---
Met with Mrs. Wilson at [facility]. She is currently lying in bed, alert, oriented, and able to make her needs known. She is appropriate and pleasant throughout conversation. Presents in much brighter affect than previous visit. She verbalizes she is feeling better and continues to look forward to discharge when medically able. She does tell me she would like to discharge home with her instead of rehab, understands limitations. She verbalizes she is hopeful to get off TPN sometime soon. Does have questions regarding when TPN will be able to be stopped and desires additional conversation with medical provider regarding what TPN is for and "when absorption of nutrition will not be an issue". Encouraged her to speak with medical attending as they would be better able to discuss this with her. Expressed emotional concern with not getting many visits due to her 's medical condition although they do get to speak on the phone from time to time. She denies any depressive thoughts and does not present with depressive symptoms. Skin is cleared up and she verbalizes this also makes her feel much better. Allowed time to some life reflection, normalized feelings and offered emotional support. Palliative care will continue to follow throughout hospitalization. SW will follow as needed for emotional and social support. Tierney Salgado, [employer]IC Sep 01, 2016 15:36
[2016-09-01] MEDS: DIPHENOXYLATE/ATROPINE 2.5 MG/0.025 MG TAB PO PRN ×2 (18:53→21:03)
[2016-09-01] MEDS: CLINIMIX E 5/25 2000 mL- >42 mls/hr IV-CENTRAL SCH ×3 (20:53)
[2016-09-01] MEDS: MIRTAZAPINE ODT 15 MG TAB PO SCH (20:54)
[2016-09-01] MEDS: GABAPENTIN 100 MG CAP PO SCH (20:54)
[2016-09-01] MEDS: traMADol HCL 50 MG TAB PO PRN (20:54)
[2016-09-01 21:06] VITALS: BP 136/74; PULSE 102; RESP 16; TEMP 98.6; O2SAT 97
[2016-09-02] VITALS: BP 126/78; PULSE 101; RESP 16; TEMP 98.7; O2SAT 97
[2016-09-02] MEDS: DIPHENOXYLATE/ATROPINE 2.5 MG/0.025 MG TAB PO PRN ×2 (04:10→14:55)
[2016-09-02] MEDS: ALPRAZolam 0.25 MG TAB PO SCH ×3 (05:16→22:31)
[2016-09-02] MEDS: traMADol HCL 50 MG TAB PO PRN ×2 (05:16→20:33)
[2016-09-02 08:02] VITALS: BP 125/97; PULSE 98; RESP 18; TEMP 97.7; O2SAT 98
--- NOTE | 2016-09-02 08:58 | HHI.PR ---
Subjective Remarks Patient seen and examined today. Patient denies any new complaints. Patient very eager to leave the hospital. She is asking about when she can get off the TPN. I counseled her extensively on increasing her activities. Increasing her strength. Notified her that I'll discuss with dietitian about weaning off TPN Objective Vitals Vital Signs Date Time Temp Pulse Resp B/P Pulse Ox O2 Delivery O2 Flow Rate FiO2 09/02/16 00:00 98.7 101 16 126/78 97 09/01/16 21:06 98.6 102 16 136/74 97 I/O 09/01/16 09/01/16 09/01/16 09/02/16 09/02/16 09/02/16 07:00 15:00 23:00 07:00 15:00 23:00 Intake Total 2325 ml 725 ml 1446 ml Output Total 250 ml Balance 2075 ml 725 ml 1446 ml Intake Oral 500 ml 725 ml 960 ml IV Total 1825 ml TPN/PPN 486 ml Output Urine Total 250 ml # Voids 3 2 # Bowel Movements 1 1 1 3 Objective Remarks GENERAL: Well-developed, cachectic 6, in no acute distress. alert and orientated HEENT: Head is normocephalic without any lesions or masses noted. Facial features are symmetric. Eyes: Pupils equal round reactive to light. Extraocular muscles are intact. Conjunctivae were clear. Oropharyngeal: Pharynx without any erythema edema. Tongue is midline without deviation. Buccal mucosa is moist without any masses or lesions NECK: Supple without any masses. Trachea midline no deviation. No JVD, no bruits are appreciated CARDIAC: Regular rhythm, regular rate. S1/S2 are heard. No murmurs gallops or rubs. LUNGS: Clear to auscultation bilaterally. No wheeze, rhonchi or rales. No use of accessory muscles on inspiration or expiration. ABDOMEN: Soft, nontender. Nondistended. Bowel sounds heard in all 4 quadrants. No organomegaly or masses. Negative rebound, negative guarding. Patient has enterocutaneous fistula. Continues to have serosanguineous drainage EXTREMITIES: No edema, pulses are equal bilaterally. No cyanosis or clubbing. Left lower extremity stump noted without any wounds or infection NEUROLOGY: Mood and affect appear appropriate. Cranial nerves II through XII grossly intact. Moving all extremities, speech is clear Procedures Left stump debridement by Dr. Hill on 06/15/16 Urinary Catheter: No Vascular Central Line Catheter: Yes Assessment to: Continue Date of Insertion: Jun 20, 2016 Side: Left A/P Assessment and Plan Malnutrition: Severe protein-calorie malnutrition C diff negative. TPN for nutritional support Continue Megace to stimulate appetite and Nutritional supplements Documented continue weight loss, consult dietary for further recommendations Dietitian consulted who indicated that weight loss may be due to inaccurate ins and outs, still recommending current TPN, lipids. Encourage by mouth intake , nutritional supplements Pre-albumin is much improved at 39 Diarrhea-likely secondary to short gut syndrome, improved Continue Imodium, Lomotil C. difficile testing 08/23 negative Pain control Patient has not required any breakthrough pain medications in 2 days, so methadone was discontinued, patient still complaining of pain that is not covered by [facility] Ibuprofen 400 mg every 8 hours as needed for pain 15 Tramadol 5 mg every 8 hours as needed for pain 610 Deconditioning Continue PT/OT during the patient's stay in the hospital Emphasized the patient the need to get out of bed multiple times throughout the day Hypertension Cardizem CD 180 mg daily, Lisinopril 40 mg daily Staph Hominis bacteremia, treated ID following, Dr. Greenfield. 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 Dr. Hill ff. S/P debridement- dry, treated Wound cultures growing Klebsiella ESBL positive and Morganella finished treatment with zerbaxa Wound right great toe No signs of acute infection or abnormality at this time Continue monitor Rash: Unusual appearance and presentation, neg for herpes, biopsy inconclusive. Possibly related to zinc deficiency. Improved - Zinc could not be added to TPN per pharmacy. on oral zinc sulfate replacement. - Continue zinc oxide paste to buttock Enterocutaneous fistula. Dr. Olvera, did bedside debridement of preperitoneal fat that was protruding from the fistula Hypercoagulable state: Chronic and stable History of ischemic bowel and severe peripheral vascular disease. Continue Xarelto Anxiety and depression: Stable Continue Seroquel and Zoloft. Continue Remeron. COPD: Stable. Patient with good O2 sats on room air Patient has not required any breathing treatments Pulmonary nodule. Repeat CT recommended in 6 mos. Patient previously counseled about this finding and the need to follow-up. GI protection secondary for prolonged hospitalization Protonix DVT prevention Xarelto Discharge Planning 08/31/16 PATIENT REMAINS HOSPITALIZED FOR SEVER PROTEIN-CALORIE MALNUTRITION. SHE IS RECEIVING TPN AND LIPIDS. PATIENT HAS [facility] FOR [facility] SOURCE BUT SNF PLACEMENT IS DIFFICULT DUE TO NOT HAVE DEFINITE END DATE FOR TPN. PATIENT ALSO CONTINUES WITH DIARRHE SECONDARY TO SHORT GUT SYNDROME. SHE IS ENCOURAGE FOR PO INTAKE AND NUTRITIONAL SUPPLEMENTS. CM CONTINUES TO ATTEMPT TO LOCATE A FACILITY THAT IS WILLING TO TAKE HER UNDER THESE CONDITIONS. CM FOLLOWING. Chase Anne Sep 02, 2016 08:58
[2016-09-02] MEDS: SODIUM CHLORIDE 0.9% FLUSH 5 ML FLUSH IV FLUSH SCH ×2 (09:00→20:34)
[2016-09-02] MEDS: MUPIROCIN 2% OINT 22 GM TUBE TOPICAL SCH ×2 (09:00→21:00)
[2016-09-02] MEDS: COLLAGENASE OINT 30 GM TUBE TOP SCH (09:00)
[2016-09-02] MEDS: MEGESTROL ACETATE SUSP 400 MG/10 ML CUP PO SCH (10:15)
[2016-09-02] MEDS: SERTRALINE HCL 100 MG TAB PO SCH (10:16)
[2016-09-02] MEDS: PANTOPRAZOLE SOD 20 MG DELAYED RELEASE TAB PO SCH ×2 (10:17→20:33)
[2016-09-02] MEDS: FERROUS SULFATE 325 MG (65 MG ELEMENTAL IRON) TAB PO SCH (10:17)
[2016-09-02] MEDS: CALCIUM/VITAMIN D 250 MG/125 U TAB PO SCH ×2 (10:18→20:32)
[2016-09-02] MEDS: LACTOBACILLUS ACIDOPHILUS TAB PO SCH ×3 (10:18→18:29)
[2016-09-02] MEDS: LISINOPRIL 20 MG TAB PO SCH (10:18)
[2016-09-02] MEDS: MAGNESIUM OXIDE 400 MG TAB PO SCH ×2 (10:18→20:33)
[2016-09-02] MEDS: DILTIAZEM-CD 180 MG CAP ER PO SCH (10:19)
[2016-09-02] MEDS: CALCITRIOL 0.25 MCG CAP PO SCH (10:19)
[2016-09-02] MEDS: MULTIVITAMIN TAB PO SCH (10:19)
[2016-09-02] MEDS: RIVAROXABAN 20 MG TAB PO SCH (10:19)
[2016-09-02] MEDS: NYSTATIN 100,000 U/GM PWD 15 GM BTL TOPICAL SCH ×2 (10:26→22:31)
[2016-09-02 20:00] VITALS: BP 120/83; PULSE 113; RESP 17; TEMP 98.3; O2SAT 98
[2016-09-02] MEDS: CLINIMIX E 5/25 2000 mL- >42 mls/hr IV-CENTRAL SCH ×3 (20:15)
[2016-09-02] MEDS: MIRTAZAPINE ODT 15 MG TAB PO SCH (20:32)
[2016-09-02] MEDS: GABAPENTIN 100 MG CAP PO SCH (20:33)
[2016-09-03] MEDS: ALPRAZolam 0.25 MG TAB PO SCH ×3 (06:00→20:45)
[2016-09-03 08:02] VITALS: BP 142/75; PULSE 97; RESP 18; TEMP 98.3; O2SAT 97
--- NOTE | 2016-09-03 08:39 | HHI.PR ---
Subjective Remarks Patient seen and examined today. Patient denies any new complaints. No change in clinical status. Objective Vitals Vital Signs Date Time Temp Pulse Resp B/P Pulse Ox O2 Delivery O2 Flow Rate FiO2 09/02/16 20:00 98.3 113 17 120/83 98 I/O 09/02/16 09/02/16 09/02/16 09/03/16 09/03/16 09/03/16 07:00 15:00 23:00 07:00 15:00 23:00 Intake Total 1446 ml 891 ml 960 ml 1070 ml Output Total 900 ml Balance 1446 ml 891 ml 960 ml 170 ml Intake Oral 960 ml 360 ml 960 ml 120 ml TPN/PPN 486 ml 531 ml 950 ml Output Urine Total 900 ml # Voids 2 2 1 2 # Bowel Movements 3 3 3 Objective Remarks GENERAL: Well-developed, cachectic, in no acute distress. alert and orientated HEENT: Head is normocephalic without any lesions or masses noted. Facial features are symmetric. Eyes: Pupils equal round reactive to light. Extraocular muscles are intact. Conjunctivae were clear. Oropharyngeal: Pharynx without any erythema edema. Tongue is midline without deviation. Buccal mucosa is moist without any masses or lesions NECK: Supple without any masses. Trachea midline no deviation. No JVD, no bruits are appreciated CARDIAC: Regular rhythm, regular rate. S1/S2 are heard. No murmurs gallops or rubs. LUNGS: Clear to auscultation bilaterally. No wheeze, rhonchi or rales. No use of accessory muscles on inspiration or expiration. ABDOMEN: Soft, nontender. Nondistended. Bowel sounds heard in all 4 quadrants. No organomegaly or masses. Negative rebound, negative guarding. Patient has enterocutaneous fistula. Continues to have serosanguineous drainage EXTREMITIES: No edema, pulses are equal bilaterally. No cyanosis or clubbing. Left lower extremity stump noted without any wounds or infection NEUROLOGY: Mood and affect appear appropriate. Cranial nerves II through XII grossly intact. Moving all extremities, speech is clear Procedures Left stump debridement by Dr. Hill on 06/15/16 Urinary Catheter: No Vascular Central Line Catheter: Yes Assessment to: Continue Date of Insertion: Jun 20, 2016 Side: Left A/P Assessment and Plan Malnutrition: Severe protein-calorie malnutrition C diff negative. TPN for nutritional support Continue Megace to stimulate appetite and Nutritional supplements Documented continue weight loss, consult dietary for further recommendations Dietitian consulted who indicated that weight loss may be due to inaccurate ins and outs, still recommending current TPN, lipids. Encourage by mouth intake , nutritional supplements Pre-albumin is much improved at 39 Diarrhea-likely secondary to short gut syndrome, improved Continue Imodium, Lomotil C. difficile testing 08/23 negative Pain control Patient has not required any breakthrough pain medications in 2 days, so methadone was discontinued, patient still complaining of pain that is not covered by [facility] Ibuprofen 400 mg every 8 hours as needed for pain 15 Tramadol 5 mg every 8 hours as needed for pain 610 Deconditioning Continue PT/OT during the patient's stay in the hospital Emphasized the patient the need to get out of bed multiple times throughout the day Hypertension Cardizem CD 180 mg daily, Lisinopril 40 mg daily Staph Hominis bacteremia, treated ID following, Dr. Greenfield. 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 Dr. Sergio kuo. S/P debridement- dry, treated Wound cultures growing Klebsiella ESBL positive and Morganella finished treatment with zerbaxa Wound right great toe No signs of acute infection or abnormality at this time Continue monitor Rash: Unusual appearance and presentation, neg for herpes, biopsy inconclusive. Possibly related to zinc deficiency. Improved - Zinc could not be added to TPN per pharmacy. on oral zinc sulfate replacement. - Continue zinc oxide paste to buttock - Zinc level still low at [address] Olvera, did bedside debridement of preperitoneal fat that was protruding from the fistula Hypercoagulable state: Chronic and stable History of ischemic bowel and severe peripheral vascular disease. Continue Xarelto Anxiety and depression: Stable Continue Seroquel and Zoloft. Continue Remeron. COPD: Stable. Patient with good O2 sats on room air Patient has not required any breathing treatments Pulmonary nodule. Repeat CT recommended in 6 mos. Patient previously counseled about this finding and the need to follow-up. GI protection secondary for prolonged hospitalization Protonix DVT prevention Xarelto Discharge Planning 08/31/16 PATIENT REMAINS HOSPITALIZED FOR SEVER PROTEIN-CALORIE MALNUTRITION. SHE IS RECEIVING TPN AND LIPIDS. PATIENT HAS [facility] MEDICARE FOR PAYOR SOURCE BUT SNF PLACEMENT IS DIFFICULT DUE TO NOT HAVE DEFINITE END DATE FOR TPN. PATIENT ALSO CONTINUES WITH DIARRHE SECONDARY TO SHORT GUT SYNDROME. SHE IS ENCOURAGE FOR PO INTAKE AND NUTRITIONAL SUPPLEMENTS. CM CONTINUES TO ATTEMPT TO LOCATE A FACILITY THAT IS WILLING TO TAKE HER UNDER THESE CONDITIONS. CM FOLLOWING. Chase Anne Sep 03, 2016 08:39
[2016-09-03] MEDS: COLLAGENASE OINT 30 GM TUBE TOP SCH (09:00)
[2016-09-03] MEDS: SODIUM CHLORIDE 0.9% FLUSH 5 ML FLUSH IV FLUSH SCH ×2 (09:00→20:45)
[2016-09-03] MEDS: MUPIROCIN 2% OINT 22 GM TUBE TOPICAL SCH ×2 (09:00→20:46)
[2016-09-03] MEDS: CALCITRIOL 0.25 MCG CAP PO SCH (10:16)
[2016-09-03] MEDS: LACTOBACILLUS ACIDOPHILUS TAB PO SCH ×3 (10:16→18:22)
[2016-09-03] MEDS: DILTIAZEM-CD 180 MG CAP ER PO SCH (10:16)
[2016-09-03] MEDS: MEGESTROL ACETATE SUSP 400 MG/10 ML CUP PO SCH (10:17)
[2016-09-03] MEDS: FERROUS SULFATE 325 MG (65 MG ELEMENTAL IRON) TAB PO SCH (10:18)
[2016-09-03] MEDS: MULTIVITAMIN TAB PO SCH (10:18)
[2016-09-03] MEDS: LISINOPRIL 20 MG TAB PO SCH (10:18)
[2016-09-03] MEDS: CALCIUM/VITAMIN D 250 MG/125 U TAB PO SCH ×2 (10:19→20:45)
[2016-09-03] MEDS: RIVAROXABAN 20 MG TAB PO SCH (10:19)
[2016-09-03] MEDS: MAGNESIUM OXIDE 400 MG TAB PO SCH ×2 (10:19→20:45)
[2016-09-03] MEDS: PANTOPRAZOLE SOD 20 MG DELAYED RELEASE TAB PO SCH ×2 (10:19→20:50)
[2016-09-03] MEDS: SERTRALINE HCL 100 MG TAB PO SCH (10:20)
[2016-09-03] MEDS: NYSTATIN 100,000 U/GM PWD 15 GM BTL TOPICAL SCH ×2 (10:24→20:46)
[2016-09-03] MEDS: DIPHENOXYLATE/ATROPINE 2.5 MG/0.025 MG TAB PO PRN (18:23)
[2016-09-03 20:00] VITALS: BP 142/72; PULSE 110; RESP 20; TEMP 98.3; O2SAT 98
[2016-09-03] MEDS: CLINIMIX E 5/25 2000 mL- >42 mls/hr IV-CENTRAL SCH ×3 (20:39)
[2016-09-03] MEDS: FAT EMULSION 20% INJ 250 ML (Twice weekly over 8 hours) IV-CENTRAL SCH (20:39)
[2016-09-03] MEDS: MIRTAZAPINE ODT 15 MG TAB PO SCH (20:45)
[2016-09-03] MEDS: GABAPENTIN 100 MG CAP PO SCH (20:45)
[2016-09-03] MEDS: traMADol HCL 50 MG TAB PO PRN (22:09)
[2016-09-04] MEDS: ALPRAZolam 0.25 MG TAB PO SCH ×3 (05:15→21:16)
[2016-09-04 08:00] VITALS: BP 122/66; PULSE 78; RESP 16; TEMP 98.1; O2SAT 95
--- NOTE | 2016-09-04 08:32 | HHI.PR ---
Subjective Remarks Patient seen and examined today. Patient denies any new complaints. No change in clinical status. Objective Vitals Vital Signs Date Time Temp Pulse Resp B/P Pulse Ox O2 Delivery O2 Flow Rate FiO2 09/03/16 20:00 98.3 110 20 142/72 98 I/O 09/03/16 09/03/16 09/03/16 09/04/16 09/04/16 09/04/16 07:00 15:00 23:00 07:00 15:00 23:00 Intake Total 1070 ml 470 ml 240 ml 1365 ml Output Total 900 ml Balance 170 ml 470 ml 240 ml 1365 ml Intake Oral 120 ml 240 ml 240 ml IV Total 470 ml TPN/PPN 950 ml 875 ml Lipid 250 ml Output Urine Total 900 ml # Voids 2 2 3 # Bowel Movements 8 2 Objective Remarks GENERAL: Well-developed, cachectic, in no acute distress. alert and orientated HEENT: Head is normocephalic without any lesions or masses noted. Facial features are symmetric. Eyes: Pupils equal round reactive to light. Extraocular muscles are intact. Conjunctivae were clear. Oropharyngeal: Pharynx without any erythema edema. Tongue is midline without deviation. Buccal mucosa is moist without any masses or lesions NECK: Supple without any masses. Trachea midline no deviation. No JVD, no bruits are appreciated CARDIAC: Regular rhythm, regular rate. S1/S2 are heard. No murmurs gallops or rubs. LUNGS: Clear to auscultation bilaterally. No wheeze, rhonchi or rales. No use of accessory muscles on inspiration or expiration. ABDOMEN: Soft, nontender. Nondistended. Bowel sounds heard in all 4 quadrants. No organomegaly or masses. Negative rebound, negative guarding. Patient has enterocutaneous fistula. Continues to have serosanguineous drainage EXTREMITIES: No edema, pulses are equal bilaterally. No cyanosis or clubbing. Left lower extremity stump noted without any wounds or infection NEUROLOGY: Mood and affect appear appropriate. Cranial nerves II through XII grossly intact. Moving all extremities, speech is clear Procedures Left stump debridement by Dr. Hill on 06/15/16 Urinary Catheter: No Vascular Central Line Catheter: Yes Assessment to: Continue Date of Insertion: Jun 20, 2016 Side: Left A/P Assessment and Plan Malnutrition: Severe protein-calorie malnutrition C diff negative. TPN for nutritional support Continue Megace to stimulate appetite and Nutritional supplements Documented continue weight loss, consult dietary for further recommendations Dietitian consulted who indicated that weight loss may be due to inaccurate ins and outs, still recommending current TPN, lipids. Encourage by mouth intake , nutritional supplements Pre-albumin is much improved at 39 Diarrhea-likely secondary to short gut syndrome, improved Continue Imodium, Lomotil C. difficile testing 08/23 negative Pain control Patient has not required any breakthrough pain medications in 2 days, so methadone was discontinued, patient still complaining of pain that is not covered by [place] Ibuprofen 400 mg every 8 hours as needed for pain 15 Tramadol 5 mg every 8 hours as needed for pain 610 Deconditioning Continue PT/OT during the patient's stay in the hospital Emphasized the patient the need to get out of bed multiple times throughout the day Hypertension Cardizem CD 180 mg daily, Lisinopril 40 mg daily Staph Hominis bacteremia, treated ID following, Dr. Greenfield. 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 Dr. Sergio kuo. S/P debridement- dry, treated Wound cultures growing Klebsiella ESBL positive and Morganella finished treatment with zerbaxa Wound right great toe No signs of acute infection or abnormality at this time Continue monitor Rash: Unusual appearance and presentation, neg for herpes, biopsy inconclusive. Possibly related to zinc deficiency. Improved - Zinc could not be added to TPN per pharmacy. on oral zinc sulfate replacement. - Continue zinc oxide paste to buttock - Zinc level still low at 57, recheck monthly, next time 09/[address] Olvera, did bedside debridement of preperitoneal fat that was protruding from the fistula Hypercoagulable state: Chronic and stable History of ischemic bowel and severe peripheral vascular disease. Continue Xarelto Anxiety and depression: Stable Continue Seroquel and Zoloft. Continue Remeron. COPD: Stable. Patient with good O2 sats on room air Patient has not required any breathing treatments Pulmonary nodule. Repeat CT recommended in 6 mos. Patient previously counseled about this finding and the need to follow-up. GI protection secondary for prolonged hospitalization Protonix DVT prevention Xarelto Discharge Planning 08/31/16 PATIENT REMAINS HOSPITALIZED FOR SEVER PROTEIN-CALORIE MALNUTRITION. SHE IS RECEIVING TPN AND LIPIDS. PATIENT HAS [facility] FOR [facility] SOURCE BUT SNF PLACEMENT IS DIFFICULT DUE TO NOT HAVE DEFINITE END DATE FOR TPN. PATIENT ALSO CONTINUES WITH DIARRHE SECONDARY TO SHORT GUT SYNDROME. SHE IS ENCOURAGE FOR PO INTAKE AND NUTRITIONAL SUPPLEMENTS. CM CONTINUES TO ATTEMPT TO LOCATE A FACILITY THAT IS WILLING TO TAKE HER UNDER THESE CONDITIONS. CM FOLLOWING. Chase Anne Sep 04, 2016 08:32
[2016-09-04] MEDS: MUPIROCIN 2% OINT 22 GM TUBE TOPICAL SCH ×2 (09:00→21:19)
[2016-09-04] MEDS: COLLAGENASE OINT 30 GM TUBE TOP SCH (09:00)
[2016-09-04] MEDS: SODIUM CHLORIDE 0.9% FLUSH 5 ML FLUSH IV FLUSH SCH ×2 (09:00→21:14)
[2016-09-04] MEDS: DIPHENOXYLATE/ATROPINE 2.5 MG/0.025 MG TAB PO PRN (10:49)
[2016-09-04] MEDS: MEGESTROL ACETATE SUSP 400 MG/10 ML CUP PO SCH (10:49)
[2016-09-04] MEDS: CALCIUM/VITAMIN D 250 MG/125 U TAB PO SCH ×2 (10:50→21:15)
[2016-09-04] MEDS: MAGNESIUM OXIDE 400 MG TAB PO SCH ×2 (10:50→21:15)
[2016-09-04] MEDS: SERTRALINE HCL 100 MG TAB PO SCH (10:50)
[2016-09-04] MEDS: LISINOPRIL 20 MG TAB PO SCH (10:50)
[2016-09-04] MEDS: ZINC SULFATE 220 MG CAP PO SCH (10:50)
[2016-09-04] MEDS: CALCITRIOL 0.25 MCG CAP PO SCH (10:50)
[2016-09-04] MEDS: DILTIAZEM-CD 180 MG CAP ER PO SCH (10:50)
[2016-09-04] MEDS: FERROUS SULFATE 325 MG (65 MG ELEMENTAL IRON) TAB PO SCH (10:51)
[2016-09-04] MEDS: RIVAROXABAN 20 MG TAB PO SCH (10:51)
[2016-09-04] MEDS: PANTOPRAZOLE SOD 20 MG DELAYED RELEASE TAB PO SCH ×2 (10:51→21:15)
[2016-09-04] MEDS: LACTOBACILLUS ACIDOPHILUS TAB PO SCH ×3 (10:51→17:20)
[2016-09-04] MEDS: MULTIVITAMIN TAB PO SCH (10:51)
[2016-09-04] MEDS: NYSTATIN 100,000 U/GM PWD 15 GM BTL TOPICAL SCH ×2 (10:51→21:19)
[2016-09-04] MEDS: LOPERAMIDE HCL 2 MG CAP PO PRN ×2 (10:59→21:15)
[2016-09-04] MEDS: CLINIMIX E 5/25 2000 mL- >42 mls/hr IV-CENTRAL SCH ×3 (20:31)
[2016-09-04 20:42] VITALS: BP 140/88; PULSE 105; RESP 18; TEMP 97.9; O2SAT 96
[2016-09-04] MEDS: traMADol HCL 50 MG TAB PO PRN (21:16)
[2016-09-04] MEDS: MIRTAZAPINE ODT 15 MG TAB PO SCH (21:16)
[2016-09-04] MEDS: GABAPENTIN 100 MG CAP PO SCH (21:16)
[2016-09-05] MEDS: ALPRAZolam 0.25 MG TAB PO SCH ×3 (06:00→21:27)
[2016-09-05] MEDS: MUPIROCIN 2% OINT 22 GM TUBE TOPICAL SCH ×2 (09:00→21:29)
[2016-09-05] MEDS: SODIUM CHLORIDE 0.9% FLUSH 5 ML FLUSH IV FLUSH SCH ×2 (09:00→21:26)
[2016-09-05] MEDS: MEGESTROL ACETATE SUSP 400 MG/10 ML CUP PO SCH (09:00)
[2016-09-05] MEDS: COLLAGENASE OINT 30 GM TUBE TOP SCH (09:00)
[2016-09-05] MEDS: NYSTATIN 100,000 U/GM PWD 15 GM BTL TOPICAL SCH ×2 (09:00→21:30)
[2016-09-05 09:35] VITALS: BP 138/89; PULSE 93; RESP 20; TEMP 97.6; O2SAT 98
[2016-09-05] MEDS: PANTOPRAZOLE SOD 20 MG DELAYED RELEASE TAB PO SCH ×2 (10:27→21:28)
[2016-09-05] MEDS: MAGNESIUM OXIDE 400 MG TAB PO SCH ×2 (10:28→21:27)
[2016-09-05] MEDS: LISINOPRIL 20 MG TAB PO SCH (10:28)
[2016-09-05] MEDS: DILTIAZEM-CD 180 MG CAP ER PO SCH (10:28)
[2016-09-05] MEDS: CALCIUM/VITAMIN D 250 MG/125 U TAB PO SCH ×2 (10:28→21:27)
[2016-09-05] MEDS: LACTOBACILLUS ACIDOPHILUS TAB PO SCH ×3 (10:28→17:56)
[2016-09-05] MEDS: CALCITRIOL 0.25 MCG CAP PO SCH (10:28)
[2016-09-05] MEDS: ZINC SULFATE 220 MG CAP PO SCH (10:28)
[2016-09-05] MEDS: DIPHENOXYLATE/ATROPINE 2.5 MG/0.025 MG TAB PO PRN (10:29)
[2016-09-05] MEDS: RIVAROXABAN 20 MG TAB PO SCH (10:29)
[2016-09-05] MEDS: SERTRALINE HCL 100 MG TAB PO SCH (10:29)
[2016-09-05] MEDS: FERROUS SULFATE 325 MG (65 MG ELEMENTAL IRON) TAB PO SCH (10:29)
[2016-09-05] MEDS: MULTIVITAMIN TAB PO SCH (10:29)
[2016-09-05] MEDS: LOPERAMIDE HCL 2 MG CAP PO PRN ×2 (10:30→18:14)
--- NOTE | 2016-09-05 17:01 | HHI.PR ---
Subjective Remarks No acute complaints. Patient states diarrhea is back to normal frequency, couple episodes per day. Objective Vitals Vital Signs Date Time Temp Pulse Resp B/P Pulse Ox O2 Delivery O2 Flow Rate FiO2 09/05/16 09:35 97.6 93 20 138/89 98 09/04/16 20:42 97.9 105 18 140/88 96 I/O 09/04/16 09/04/16 09/04/16 09/05/16 09/05/16 09/05/16 07:00 15:00 23:00 07:00 15:00 23:00 Intake Total 1365 ml 1180 ml 1500 ml 960 ml Output Total 3 ml Balance 1365 ml 1177 ml 1500 ml 960 ml Intake Oral 240 ml 1180 ml 960 ml TPN/PPN 875 ml 1500 ml Lipid 250 ml Stool Total 3 ml # Voids 3 4 5 # Bowel Movements 2 1 1 Objective Remarks GENERAL: Pleasant well-developed patient in no apparent distress. SKIN: Warm and dry. Bandage over abdomen. L stump with incisional scabbing, no erythema or dehiscence. Dry scaling skin to the right foot. Small area of black discoloration over the medial nail fold of the right great toe. No erythema, bleeding, or drainage; no acute change. CARDIOVASCULAR: Regular rate and rhythm. RESPIRATORY: No accessory muscle use. Clear to auscultation. Breath sounds equal bilaterally. GASTROINTESTINAL: Abdomen nontender, nondistended. NEUROLOGICAL: Awake and alert. Normal speech. Procedures Left stump debridement by Dr. 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 (3) Hypercoagulable state ICD Code: D68.59 Status: Chronic (4) HTN (hypertension) ICD Code: I10 Status: Chronic (5) Anxiety about health ICD Code: F41.8 Status: Chronic (6) Diarrhea ICD Code: R19.7 Status: Chronic (7) Severe protein-calorie malnutrition ICD Code: E43 Status: Acute (8) Fungal skin infection ICD Code: B36.9 Status: Resolved (9) Transient lingual papillitis ICD Code: K14.0 Status: Resolved (10) Hospital acquired PNA ICD Code: J18.9 Status: Resolved (11) Major depressive disorder, recurrent severe without psychotic features ICD Code: F33.2 Status: Chronic (12) Disseminated herpes zoster ICD Code: B02.7 Status: Resolved (13) Hypokalemia ICD Code: E87.6 Status: Resolved Assessment and Plan Malnutrition: Severe protein-calorie malnutrition. 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 TPN for nutritional support as patient is not candidate for feeding tube. Continue Megace to stimulate appetite and nutritional supplements Documented continued weight loss Monitor BGLs bid Palliative care consulted with patient on 09/01 Dietitian last evaluated the patient today 09/05. Okay'd for additional menu items upon patient request. Continue Ensure Enlive QD. Continue current TPN and lipids per [employer]. Patient ate 75% of meals today. Diarrhea: Chronic secondary to short gut syndrome. C. difficile testing 08/23 negative. Continue Imodium and Lomotil as needed. PO hydration encouraged. Pain control -Ibuprofen 400 mg every 8 hours as needed for pain 15 -Ultram prn as directed Deconditioning Continue PT/OT during the patient's stay in the hospital Trapeze ordered to allow better upper body mobility but has not received yet. Hypertension Cardizem CD 120 mg daily Lisinopril 40 mg daily Monitor Staph Hominis bacteremia, treated ID following, Dr. Greenfield. 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 Olvera. S/ P debridement- dry, treated Wound cultures growing Klebsiella ESBL positive and Morganella finished treatment with zerbaxa Wound R great toe: Patient clipped the skin of the medial nailfold of right great toe weeks ago. There is small area of black discoloration. There is no indication of active infection. There may be delayed wound healing, but toes appear adequately perfused. Nothing to do at this time. Will closely monitor. Rash: Resolved. Unusual appearance and presentation, neg for herpes, biopsy inconclusive. Possibly related to zinc deficiency. Zinc could not be added to TPN per pharmacy. On oral zinc sulfate replacement. Continue zinc oxide paste to buttock Enterocutaneous fistula. Chronic. Dr. Hill evaluated patient on 09/01/16 and debrided preperitoneal fat extruding from incision at bedside. Optimize nutrition with PO intake and TPN. Wound care. Hypercoagulable state: Chronic and stable History of ischemic bowel and severe peripheral vascular disease. Continue Xarelto Anxiety and depression: Stable Continue Seroquel and Zoloft. Continue Remeron. COPD: Stable. Patient with good O2 sats on room air Patient has not required any breathing treatments Pulmonary nodule. Repeat CT recommended in 6 mos. Patient previously counseled about this finding and the need to follow-up. GI protection secondary for prolonged hospitalization Protonix DVT prevention Xarelto Discharge Planning PT and OT recommend rehab. Patient cannot be placed until TPN is discontinued. Problem Qualifiers (1) HTN (hypertension): Qualified Code: I10 - Essential hypertension (2) Diarrhea: Qualified Code: R19.7 - Diarrhea, unspecified type Kathy Parmar Sep 05, 2016 17:01
[2016-09-05 20:00] VITALS: BP 138/68; PULSE 110; RESP 20; TEMP 98.9; O2SAT 97
[2016-09-05] MEDS: GABAPENTIN 100 MG CAP PO SCH (21:27)
[2016-09-05] MEDS: MIRTAZAPINE ODT 15 MG TAB PO SCH (21:28)
[2016-09-05] MEDS: CLINIMIX E 5/25 2000 mL- >42 mls/hr IV-CENTRAL SCH ×3 (21:31)
[2016-09-05] MEDS: traMADol HCL 50 MG TAB PO PRN (21:36)
[2016-09-06] MEDS: ALPRAZolam 0.25 MG TAB PO SCH ×4 (05:50→21:38)
[2016-09-06] MEDS: NYSTATIN 100,000 U/GM PWD 15 GM BTL TOPICAL SCH ×2 (09:00→19:58)
[2016-09-06] MEDS: MUPIROCIN 2% OINT 22 GM TUBE TOPICAL SCH ×2 (09:00→19:58)
[2016-09-06] MEDS: SODIUM CHLORIDE 0.9% FLUSH 5 ML FLUSH IV FLUSH SCH ×2 (09:00→19:55)
[2016-09-06] MEDS: RIVAROXABAN 20 MG TAB PO SCH (09:00)
[2016-09-06] MEDS: COLLAGENASE OINT 30 GM TUBE TOP SCH (09:00)
[2016-09-06] MEDS: MEGESTROL ACETATE SUSP 400 MG/10 ML CUP PO SCH (09:05)
[2016-09-06] MEDS: FERROUS SULFATE 325 MG (65 MG ELEMENTAL IRON) TAB PO SCH (09:05)
[2016-09-06] MEDS: ZINC SULFATE 220 MG CAP PO SCH (09:05)
[2016-09-06] MEDS: LACTOBACILLUS ACIDOPHILUS TAB PO SCH ×3 (09:05→17:13)
[2016-09-06] MEDS: DILTIAZEM-CD 180 MG CAP ER PO SCH (09:06)
[2016-09-06] MEDS: MAGNESIUM OXIDE 400 MG TAB PO SCH ×2 (09:06→19:56)
[2016-09-06] MEDS: PANTOPRAZOLE SOD 20 MG DELAYED RELEASE TAB PO SCH ×2 (09:07→19:56)
[2016-09-06] MEDS: MULTIVITAMIN TAB PO SCH (09:07)
[2016-09-06] MEDS: CALCITRIOL 0.25 MCG CAP PO SCH (09:07)
[2016-09-06] MEDS: CALCIUM/VITAMIN D 250 MG/125 U TAB PO SCH ×2 (09:07→19:56)
[2016-09-06] MEDS: LISINOPRIL 20 MG TAB PO SCH (09:07)
[2016-09-06] MEDS: SERTRALINE HCL 100 MG TAB PO SCH (09:07)
[2016-09-06] MEDS: LOPERAMIDE HCL 2 MG CAP PO PRN ×2 (09:08→17:12)
[2016-09-06] MEDS: DIPHENOXYLATE/ATROPINE 2.5 MG/0.025 MG TAB PO PRN (09:08)
--- NOTE | 2016-09-06 10:31 | HHI.PR ---
Subjective Remarks Follow-up for malnutrition, left infected BKA stump, enterocutaneous fistula. Patient complains of a rash to her right leg. She denies itching. Denies fevers. Objective Vitals Vital Signs Date Time Temp Pulse Resp B/P Pulse Ox O2 Delivery O2 Flow Rate FiO2 09/05/16 20:00 98.9 110 20 138/68 97 I/O 09/05/16 09/05/16 09/05/16 09/06/16 09/06/16 09/06/16 06:59 14:59 22:59 06:59 14:59 22:59 Intake Total 1500 ml 960 ml 989 ml 768 ml Output Total 500 ml Balance 1500 ml 960 ml 989 ml 268 ml Intake Oral 960 ml 450 ml 300 ml TPN/PPN 1500 ml 539 ml 468 ml Output Urine Total 500 ml # Voids 5 3 2 # Bowel Movements 1 2 Objective Remarks GENERAL: Pleasant well-developed patient in no apparent distress. SKIN: Warm and dry. L stump with incisional scabbing, no erythema or dehiscence. Dry scaling skin to the right foot. Small area of black discoloration over the medial nail fold of the right great toe. No erythema, bleeding, or drainage; no acute change. There is a circular red ring with red pinpoint center present over right lower leg with rough texture, does not appear raised. CARDIOVASCULAR: Regular rate and rhythm. RESPIRATORY: Limited exam. No accessory muscle use. Clear to auscultation. Breath sounds equal bilaterally. GASTROINTESTINAL: Abdomen nontender. NEUROLOGICAL: Awake and alert. Normal speech. Procedures Left stump debridement by Dr. 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 (3) Hypercoagulable state ICD Code: D68.59 Status: Chronic (4) HTN (hypertension) ICD Code: I10 Status: Chronic (5) Anxiety about health ICD Code: F41.8 Status: Chronic (6) Diarrhea ICD Code: R19.7 Status: Chronic (7) Severe protein-calorie malnutrition ICD Code: E43 Status: Acute (8) Fungal skin infection ICD Code: B36.9 Status: Resolved (9) Transient lingual papillitis ICD Code: K14.0 Status: Resolved (10) Hospital acquired PNA ICD Code: J18.9 Status: Resolved (11) Major depressive disorder, recurrent severe without psychotic features ICD Code: F33.2 Status: Chronic (12) Disseminated herpes zoster ICD Code: B02.7 Status: Resolved (13) Hypokalemia ICD Code: E87.6 Status: Resolved Assessment and Plan Malnutrition: Severe protein-calorie malnutrition. 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 TPN for nutritional support as patient is not candidate for feeding tube. Continue Megace to stimulate appetite and nutritional supplements Documented continued weight loss Monitor BGLs bid Palliative care consulted with patient on 09/01 Dietitian evaluated the patient 09/05. Okay'd for additional menu items upon patient request. Continue Ensure Enlive QD. Continue current TPN and lipids per radiographer technologist. Patient increasingly eating more of her meals. Diarrhea: Chronic secondary to short gut syndrome. C. difficile testing 08/23 negative. Continue Imodium and Lomotil as needed. PO hydration encouraged. Pain control -Ibuprofen 400 mg every 8 hours as needed for pain 15 -Ultram prn as directed Deconditioning Continue PT/OT during the patient's stay in the hospital Trapeze ordered to allow better upper body mobility but has not received yet. Hypertension Cardizem CD 120 mg daily Lisinopril 40 mg daily Monitor Staph Hominis bacteremia, treated ID following, Dr. Greenfield. 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 Olvera. S/ P debridement- dry, treated Wound cultures grew Klebsiella ESBL positive and Morganella finished treatment with zerbaxa Per orthotics technician today, patient to receive prosthesis Wound R great toe: Patient clipped the skin of the medial nailfold of right great toe weeks ago. There is small area of black discoloration. There is no indication of active infection. There may be delayed wound healing, but toes appear adequately perfused. Nothing to do at this time. Will closely monitor. Rash: Resolved. Unusual appearance and presentation, neg for herpes, biopsy inconclusive. Possibly related to zinc deficiency. Zinc could not be added to TPN per pharmacy. On oral zinc sulfate replacement. Continue zinc oxide paste to buttock New rash to R leg: Possible tinea corporis. -Start clotrimazole 1% cream bid x 2 weeks. Enterocutaneous fistula. Chronic. Dr. Hill evaluated patient on 09/01/16 and debrided preperitoneal fat extruding from incision at bedside. Optimize nutrition with PO intake and TPN. Wound care. Hypercoagulable state: Chronic and stable History of ischemic bowel and severe peripheral vascular disease. Continue Xarelto Anxiety and depression: Stable Continue Seroquel and Zoloft. Continue Remeron. COPD: Stable. Patient with good O2 sats on room air Patient has not required any breathing treatments Pulmonary nodule. Repeat CT recommended in 6 mos. Patient previously counseled about this finding and the need to follow-up. GI protection secondary for prolonged hospitalization Protonix DVT prevention Xarelto Discharge Planning PT and OT recommend rehab. Patient cannot be placed until TPN is discontinued. Problem Qualifiers (1) HTN (hypertension): Qualified Code: I10 - Essential hypertension (2) Diarrhea: Qualified Code: R19.7 - Diarrhea, unspecified type Kathy Parmar Sep 06, 2016 10:31
[2016-09-06 11:00] VITALS: BP 140/77; PULSE 107; RESP 20; TEMP 98; O2SAT 98
[2016-09-06] MEDS: ONDANSETRON ODT 4 MG TAB PO PRN (11:04)
[2016-09-06] MEDS: CLINIMIX E 5/25 2000 mL- >42 mls/hr IV-CENTRAL SCH ×3 (19:54)
[2016-09-06] MEDS: FAT EMULSION 20% INJ 250 ML (Twice weekly over 8 hours) IV-CENTRAL SCH (19:55)
[2016-09-06] MEDS: MIRTAZAPINE ODT 15 MG TAB PO SCH (19:56)
[2016-09-06] MEDS: GABAPENTIN 100 MG CAP PO SCH (19:56)
[2016-09-06 20:00] VITALS: BP 128/66; PULSE 113; RESP 18; TEMP 98.4; O2SAT 95
[2016-09-06] MEDS: traMADol HCL 50 MG TAB PO PRN (21:38)
[2016-09-06] MEDS: CLOTRIMAZOLE 1% CREAM 15 GM TOPICAL SCH (21:38)
[2016-09-07] MEDS: ALPRAZolam 0.25 MG TAB PO SCH ×3 (06:00→21:24)
[2016-09-07 08:00] VITALS: BP 129/81; PULSE 119; RESP 20; TEMP 98.4; O2SAT 97
[2016-09-07] MEDS: MUPIROCIN 2% OINT 22 GM TUBE TOPICAL SCH ×2 (09:00→20:19)
[2016-09-07] MEDS: SODIUM CHLORIDE 0.9% FLUSH 5 ML FLUSH IV FLUSH SCH ×2 (09:00→20:09)
[2016-09-07] MEDS: CLOTRIMAZOLE 1% CREAM 15 GM TOPICAL SCH ×2 (09:00→20:10)
[2016-09-07] MEDS: COLLAGENASE OINT 30 GM TUBE TOP SCH (09:00)
[2016-09-07] MEDS: MAGNESIUM OXIDE 400 MG TAB PO SCH ×2 (10:09→20:09)
[2016-09-07] MEDS: CALCITRIOL 0.25 MCG CAP PO SCH (10:09)
[2016-09-07] MEDS: MULTIVITAMIN TAB PO SCH (10:10)
[2016-09-07] MEDS: MEGESTROL ACETATE SUSP 400 MG/10 ML CUP PO SCH (10:10)
[2016-09-07] MEDS: CALCIUM/VITAMIN D 250 MG/125 U TAB PO SCH ×2 (10:10→20:09)
[2016-09-07] MEDS: SERTRALINE HCL 100 MG TAB PO SCH (10:11)
[2016-09-07] MEDS: PANTOPRAZOLE SOD 20 MG DELAYED RELEASE TAB PO SCH ×2 (10:12→20:08)
[2016-09-07] MEDS: ZINC SULFATE 220 MG CAP PO SCH (10:12)
[2016-09-07] MEDS: DILTIAZEM-CD 180 MG CAP ER PO SCH (10:12)
[2016-09-07] MEDS: FERROUS SULFATE 325 MG (65 MG ELEMENTAL IRON) TAB PO SCH (10:14)
[2016-09-07] MEDS: LISINOPRIL 20 MG TAB PO SCH (10:14)
[2016-09-07] MEDS: RIVAROXABAN 20 MG TAB PO SCH (10:14)
[2016-09-07] MEDS: LACTOBACILLUS ACIDOPHILUS TAB PO SCH ×3 (10:15→18:27)
--- NOTE | 2016-09-07 10:20 | HHI.PR ---
Subjective Remarks Follow-up for enterocutaneous fistula, malnutrition, and s/p LLE stump infection. Patient states diarrhea is under control. She started using the cream over the rash right leg last night. Objective Vitals Vital Signs Date Time Temp Pulse Resp B/P Pulse Ox O2 Delivery O2 Flow Rate FiO2 09/07/16 08:00 98.4 119 20 129/81 97 09/06/16 20:00 98.4 113 18 128/66 95 09/06/16 11:00 98.0 107 20 140/77 98 I/O 09/06/16 09/06/16 09/06/16 09/07/16 09/07/16 09/07/16 06:59 14:59 22:59 06:59 14:59 22:59 Intake Total 768 ml 500 ml 1342 ml 864 ml Output Total 500 ml 650 ml 650 ml Balance 268 ml 500 ml 692 ml 214 ml Intake Oral 300 ml 500 ml 400 ml 200 ml TPN/PPN 468 ml 884 ml 466 ml Lipid 58 ml 198 ml Output Urine Total 500 ml 650 ml 650 ml # Voids 2 4 4 # Bowel Movements 4 1 0 Objective Remarks GENERAL: Pleasant well-developed patient in no apparent distress. SKIN: Warm and dry. L stump with incisional scabbing, no erythema or dehiscence. Dry scaling skin to the right foot. Small area of black discoloration over the medial nail fold of the right great toe. No erythema, bleeding, or drainage; no acute change. There is a circular red ring with red pinpoint center present over medial right lower leg, but appears somewhat moisture meter reader today. CARDIOVASCULAR: Regular rate and rhythm. RESPIRATORY: No accessory muscle use. Clear to auscultation. Breath sounds equal bilaterally. GASTROINTESTINAL: Abdomen soft nontender. NEUROLOGICAL: Awake and alert. Normal speech. Procedures Left stump debridement by Dr. 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 (3) Hypercoagulable state ICD Code: D68.59 Status: Chronic (4) HTN (hypertension) ICD Code: I10 Status: Chronic (5) Anxiety about health ICD Code: F41.8 Status: Chronic (6) Diarrhea ICD Code: R19.7 Status: Chronic (7) Severe protein-calorie malnutrition ICD Code: E43 Status: Acute (8) Fungal skin infection ICD Code: B36.9 Status: Resolved (9) Transient lingual papillitis ICD Code: K14.0 Status: Resolved (10) Hospital acquired PNA ICD Code: J18.9 Status: Resolved (11) Major depressive disorder, recurrent severe without psychotic features ICD Code: F33.2 Status: Chronic (12) Disseminated herpes zoster ICD Code: B02.7 Status: Resolved (13) Hypokalemia ICD Code: E87.6 Status: Resolved Assessment and Plan Malnutrition: Severe protein-calorie malnutrition. 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 TPN for nutritional support as patient is not candidate for feeding tube. Continue Megace to stimulate appetite and nutritional supplements Documented continued weight loss Monitor BGLs bid Palliative care consulted with patient on 09/01 Dietitian evaluated the patient 09/05. Okay'd for additional menu items upon patient request. Continue Ensure Enlive QD. Continue current TPN and lipids per director of public works. Patient increasingly eating more of her meals. Diarrhea: Chronic secondary to short gut syndrome. C. difficile testing 08/23 negative. Continue Imodium and Lomotil as needed. PO hydration encouraged. Pain control -Ibuprofen 400 mg every 8 hours as needed for pain 15 -Ultram prn as directed Possible mild dehydration: Documented HR of 118 this morning. She has been tachycardic since beginning of the month, but worse today. No complaints related to this. Sinus rhythm. BP normal, but may be dehydrated. New CBC today with mildly elevated WBC of 11.9. New BMP reviewed with pre-renal azotemia, BUN still elevated at 37 (35 on 08/27). I had ordered po hydration at that time but it has not improved and patient has had 5 BMs over the past 24 hours. Good urine output though. -Will order 1 L bolus NS at 500 mL/hr now. Recheck BMP in the am. Deconditioning Continue PT/OT during the patient's stay in the hospital Trapeze ordered to allow better upper body mobility but has not received yet. Hypertension Cardizem CD 120 mg daily Lisinopril 40 mg daily Monitor Staph Hominis bacteremia, treated ID following, Dr. Greenfield. 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 Olvera. S/ P debridement- dry, treated Wound cultures grew Klebsiella ESBL positive and Morganella finished treatment with zerbaxa Per certified orthotist/pedorthist today, patient to receive prosthesis Wound R great toe: Patient clipped the skin of the medial nailfold of right great toe weeks ago. There is small area of black discoloration. There is no indication of active infection. There may be delayed wound healing, but toes appear adequately perfused. Nothing to do at this time. Will closely monitor. Rash: Resolved. Unusual appearance and presentation, neg for herpes, biopsy inconclusive. Possibly related to zinc deficiency. Zinc could not be added to TPN per pharmacy. On oral zinc sulfate replacement. Continue zinc oxide paste to buttock New rash to R leg: Possible tinea corporis. -Continue clotrimazole 1% cream bid x 2 weeks. Enterocutaneous fistula. Chronic. Dr. Hill evaluated patient on 09/01/16 and debrided preperitoneal fat extruding from incision at bedside. Optimize nutrition with PO intake and TPN. Wound care. Hypercoagulable state: Chronic and stable History of ischemic bowel and severe peripheral vascular disease. Continue Xarelto Anxiety and depression: Stable Continue Seroquel and Zoloft. Continue Remeron. COPD: Stable. Patient with good O2 sats on room air Patient has not required any breathing treatments Pulmonary nodule. Repeat CT recommended in 6 mos. Patient previously counseled about this finding and the need to follow-up. GI protection secondary for prolonged hospitalization Protonix DVT prevention Xarelto Discharge Planning PT and OT recommend rehab. Patient cannot be placed until TPN is discontinued. Problem Qualifiers (1) HTN (hypertension): Qualified Code: I10 - Essential hypertension (2) Diarrhea: Qualified Code: R19.7 - Diarrhea, unspecified type Kathy Parmar Sep 07, 2016 10:20
[2016-09-07] MEDS: traMADol HCL 50 MG TAB PO PRN ×2 (11:24→20:08)
[2016-09-07 11:59] LABS: AUTOMATED NEUTROPHIL # 7.5 TH/MM3 (1.8-7.7); BASOPHIL # 0.2 TH/MM3 (0-0.2); EOSINOPHIL # 0.4 TH/MM3 (0-0.4); EOSINOPHIL % 3.5 % (0.0-4.0); HEMATOCRIT 35.3 % (35.0-46.0); LYMPH % 25.4 % (9.0-44.0); MEAN CELL VOLUME 93.2 FL (80.0-100.0); MEAN CORPUSCULAR HEMOGLOBIN 30.9 PG (27.0-34.0); MEAN CORPUSCULAR HGB CONC 33.1 % (32.0-36.0); MONO % 6.9 % (0.0-8.0); NEUT % 62.2 % (16.0-70.0); PLATELET COUNT 409 TH/MM3 (150-450); RED BLOOD COUNT 3.79 MIL/MM3 (4.00-5.30); RED CELL DISTRIBUTION WIDTH 15.2 % (11.6-17.2); WHITE BLOOD COUNT 11.9 TH/MM3 (4.0-11.0)
[2016-09-07 12:00] LABS: HEMO FLAGS DIFF FINAL
[2016-09-07 12:07] LABS: POTASSIUM 4.2 MEQ/L (3.5-5.1)
[2016-09-07 12:10] LABS: BICARBONATE 23.1 MEQ/L (21.0-32.0)
[2016-09-07] MEDS: NYSTATIN 100,000 U/GM PWD 15 GM BTL TOPICAL SCH ×2 (15:50→20:11)
[2016-09-07] MEDS ORDERED: SODIUM CHLOR 0.9% 1000 ML INJ 1,000 ML IV SCH (19:00)
[2016-09-07] MEDS ORDERED: SODIUM CHLOR 0.9% 1000 ML INJ 1,000 ML IV ONE (19:15)
[2016-09-07 20:00] VITALS: BP 105/58; PULSE 106; RESP 19; TEMP 98.1; O2SAT 97
[2016-09-07] MEDS: MIRTAZAPINE ODT 15 MG TAB PO SCH (20:08)
[2016-09-07] MEDS: GABAPENTIN 100 MG CAP PO SCH (20:08)
[2016-09-07] MEDS: LOPERAMIDE HCL 2 MG CAP PO PRN (20:24)
[2016-09-07] MEDS: CLINIMIX E 5/25 2000 mL- >42 mls/hr IV-CENTRAL SCH ×3 (20:25)
[2016-09-08] MEDS: ALPRAZolam 0.25 MG TAB PO SCH ×3 (05:08→20:53)
[2016-09-08 07:42] LABS: POTASSIUM 4.3 MEQ/L (3.5-5.1)
[2016-09-08 07:50] LABS: BICARBONATE 22.3 MEQ/L (21.0-32.0)
[2016-09-08] MEDS: SODIUM CHLORIDE 0.9% FLUSH 5 ML FLUSH IV FLUSH SCH ×2 (09:00→20:55)
[2016-09-08] MEDS: COLLAGENASE OINT 30 GM TUBE TOP SCH (09:00)
[2016-09-08] MEDS: SERTRALINE HCL 100 MG TAB PO SCH (10:21)
[2016-09-08] MEDS: ZINC SULFATE 220 MG CAP PO SCH (10:21)
[2016-09-08] MEDS: MEGESTROL ACETATE SUSP 400 MG/10 ML CUP PO SCH (10:21)
[2016-09-08] MEDS: LACTOBACILLUS ACIDOPHILUS TAB PO SCH ×3 (10:21→19:09)
[2016-09-08] MEDS: FERROUS SULFATE 325 MG (65 MG ELEMENTAL IRON) TAB PO SCH (10:21)
[2016-09-08] MEDS: MULTIVITAMIN TAB PO SCH (10:22)
[2016-09-08] MEDS: CALCITRIOL 0.25 MCG CAP PO SCH (10:23)
[2016-09-08] MEDS: MAGNESIUM OXIDE 400 MG TAB PO SCH ×2 (10:23→20:53)
[2016-09-08] MEDS: DILTIAZEM-CD 180 MG CAP ER PO SCH (10:23)
[2016-09-08] MEDS: RIVAROXABAN 20 MG TAB PO SCH (10:23)
[2016-09-08] MEDS: CALCIUM/VITAMIN D 250 MG/125 U TAB PO SCH ×2 (10:23→20:53)
[2016-09-08] MEDS: LISINOPRIL 20 MG TAB PO SCH (10:24)
[2016-09-08] MEDS: PANTOPRAZOLE SOD 20 MG DELAYED RELEASE TAB PO SCH ×2 (10:26→20:52)
[2016-09-08 10:30] VITALS: BP 116/67; PULSE 112; RESP 18; TEMP 97.1; O2SAT 97
[2016-09-08] MEDS: CLOTRIMAZOLE 1% CREAM 15 GM TOPICAL SCH ×2 (10:30→21:00)
[2016-09-08] MEDS: NYSTATIN 100,000 U/GM PWD 15 GM BTL TOPICAL SCH ×2 (10:31→21:00)
[2016-09-08] MEDS: MUPIROCIN 2% OINT 22 GM TUBE TOPICAL SCH ×2 (10:32→21:00)
[2016-09-08] MEDS: DIPHENOXYLATE/ATROPINE 2.5 MG/0.025 MG TAB PO PRN (13:12)
--- NOTE | 2016-09-08 13:52 | HHI.PR ---
Subjective Remarks Follow-up for malnutrition, chronic diarrhea, and enterocutaneous fistula. The patient states her diarrhea is "not bad". She states she had some leaking from her abdominal wound. Denies any shortness of breath. Objective Vitals Vital Signs Date Time Temp Pulse Resp B/P Pulse Ox O2 Delivery O2 Flow Rate FiO2 09/07/16 20:00 98.1 106 19 105/58 97 I/O 09/07/16 09/07/16 09/07/16 09/08/16 09/08/16 09/08/16 07:00 15:00 23:00 07:00 15:00 23:00 Intake Total 864 ml 240 ml 1480 ml 480 ml Output Total 650 ml 1 ml Balance 214 ml 239 ml 1480 ml 480 ml Intake Oral 200 ml 240 ml 240 ml IV Total 1000 ml TPN/PPN 466 ml 240 ml 480 ml Lipid 198 ml Output Urine Total 650 ml Stool Total 1 ml # Voids 1 3 # Bowel Movements 0 2 Result Diagram: 09/07/16 1150 09/08/16 0710 Objective Remarks GENERAL: Pleasant well-developed patient in no apparent distress. SKIN: Warm and dry. L stump with incisional scabbing, no erythema or dehiscence. Dry scaling skin to the right foot. Small area of black discoloration over the medial nail fold of the right great toe. No erythema, bleeding, or drainage; no acute change. There is a circular red ring with red pinpoint center present over medial right lower leg with rough texture, no worsening. CARDIOVASCULAR: Tachycardic rate with regular hythm. RESPIRATORY: No accessory muscle use. Clear to auscultation. Breath sounds equal bilaterally. GASTROINTESTINAL: Normoactive bowel sounds. Abdomen nondistended, but mildly tender over the right abdomen. NEUROLOGICAL: Awake and alert. Normal speech. Procedures Left stump debridement by Dr. 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 (3) Hypercoagulable state ICD Code: D68.59 Status: Chronic (4) HTN (hypertension) ICD Code: I10 Status: Chronic (5) Anxiety about health ICD Code: F41.8 Status: Chronic (6) Diarrhea ICD Code: R19.7 Status: Chronic (7) Severe protein-calorie malnutrition ICD Code: E43 Status: Acute (8) Fungal skin infection ICD Code: B36.9 Status: Resolved (9) Transient lingual papillitis ICD Code: K14.0 Status: Resolved (10) Hospital acquired PNA ICD Code: J18.9 Status: Resolved (11) Major depressive disorder, recurrent severe without psychotic features ICD Code: F33.2 Status: Chronic (12) Disseminated herpes zoster ICD Code: B02.7 Status: Resolved (13) Hypokalemia ICD Code: E87.6 Status: Resolved (14) Prerenal azotemia ICD Code: R79.89 Status: Acute Assessment and Plan Malnutrition: Severe protein-calorie malnutrition. 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 TPN for nutritional support as patient is not candidate for feeding tube. Continue Megace to stimulate appetite and nutritional supplements Monitor BGLs bid Palliative care consulted with patient on 09/01 Pre-albumin wnl (08/29). Patient's weight is stable. Dietitian evaluated the patient 09/07. Okay'd for additional menu items upon patient request. Continue Ensure Enlive QD. Continue current TPN and lipids per paper testing supervisor. Patient increasingly eating more of her meals. Diarrhea: Chronic secondary to short gut syndrome. Only 2 BMs over the past 24 hours. C. difficile testing 08/23 negative. Continue Imodium and Lomotil prn. Pre-renal azotemia: BUN 37 yesterday. Cr normal. Patient also tachycardic. WBC of 11.9 yesterday. She was given 1L IV NS bolus last night for possible dehydration due to diarrhea. BUN only minimally improved to 35 today but GFR improved 64-->83. Electrolytes normal. Patient had previously normal BUN at the end of July. -I have encouraged po hydration, although azotemia is likely being caused by the TPN. Will need to confer with paper testing supervisor to assess how much longer patient will require TPN as she appears to have improved nutritionally. -Monitor BMP periodically. Leukocytosis: WBC 11.9 (09/07). May be stress related from dehydration, diarrhea. -Recheck CBC tomorrow am. Tachycardia: Started becoming persistently tachycardic starting at the beginning of this month. Thought due to dehydration, still elevated despite fluids. Sinus rhythm. Pain control -Ibuprofen 400 mg every 8 hours as needed for pain 15 -Ultram prn as directed Deconditioning Continue PT/OT during the patient's stay in the hospital Trapeze ordered to allow better upper body mobility but has not received yet. Hypertension Cardizem CD 120 mg daily Lisinopril 40 mg daily Monitor Staph Hominis bacteremia, treated ID following, Dr. Greenfield. 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 Olvera. S/ P debridement- dry, treated Wound cultures grew Klebsiella ESBL positive and Morganella finished treatment with zerbaxa Patient may receive prosthesis, but still has scabbing over stump. Wound R great toe: Patient clipped the skin of the medial nailfold of right great toe weeks ago. There is small area of black discoloration. There is no indication of active infection. There may be delayed wound healing, but toes appear adequately perfused. Nothing to do at this time. Will closely monitor. Rash: Resolved. Unusual appearance and presentation, neg for herpes, biopsy inconclusive. Possibly related to zinc deficiency. Zinc could not be added to TPN per pharmacy. On oral zinc sulfate replacement. Continue zinc oxide paste to buttock New rash to R leg: Possible tinea corporis. -Continue clotrimazole 1% cream bid x 2 weeks. Enterocutaneous fistula. Chronic. Dr. Hill evaluated patient on 09/01/16 and debrided preperitoneal fat extruding from incision at bedside. Optimize nutrition with PO intake and TPN. Wound care. Hypercoagulable state: Chronic and stable History of ischemic bowel and severe peripheral vascular disease. Continue Xarelto Anxiety and depression: Stable Continue Seroquel and Zoloft. Continue Remeron. COPD: Stable. Patient with good O2 sats on room air Patient has not required any breathing treatments Pulmonary nodule. Repeat CT recommended in 6 mos. Patient previously counseled about this finding and the need to follow-up. GI protection secondary for prolonged hospitalization Protonix DVT prevention Xarelto Discharge Planning PT and OT recommend rehab. Patient cannot be placed until TPN is discontinued. [facility] is out of network. Problem Qualifiers (1) HTN (hypertension): Qualified Code: I10 - Essential hypertension (2) Diarrhea: Qualified Code: R19.7 - Diarrhea, unspecified type Kathy Paramr Sep 08, 2016 13:52
[2016-09-08 20:00] VITALS: BP 158/82; PULSE 114; RESP 20; TEMP 97.1; O2SAT 94
[2016-09-08] MEDS: MIRTAZAPINE ODT 15 MG TAB PO SCH (20:53)
[2016-09-08] MEDS: traMADol HCL 50 MG TAB PO PRN (20:53)
[2016-09-08] MEDS: GABAPENTIN 100 MG CAP PO SCH (20:53)
[2016-09-08] MEDS: CLINIMIX E 5/25 2000 mL- >42 mls/hr IV-CENTRAL SCH ×3 (20:55)
[2016-09-09] MEDS: ALPRAZolam 0.25 MG TAB PO SCH ×3 (06:38→20:53)
[2016-09-09 08:34] LABS: AUTOMATED NEUTROPHIL # 8.5 TH/MM3 (1.8-7.7); BASOPHIL # 0.1 TH/MM3 (0-0.2); BASOPHIL % 0.5 % (0.0-2.0); EOSINOPHIL # 0.3 TH/MM3 (0-0.4); EOSINOPHIL % 2.2 % (0.0-4.0); HEMATOCRIT 33.1 % (35.0-46.0); HEMO FLAGS DIFF FINAL; LYMPH % 23.9 % (9.0-44.0); LYMPHOCYTE # 3.1 TH/MM3 (1.0-4.8); MEAN CELL VOLUME 92.4 FL (80.0-100.0); MEAN CORPUSCULAR HEMOGLOBIN 30.8 PG (27.0-34.0); MEAN CORPUSCULAR HGB CONC 33.3 % (32.0-36.0); MONO % 8.6 % (0.0-8.0); NEUT % 64.8 % (16.0-70.0); PLATELET COUNT 417 TH/MM3 (150-450); RED BLOOD COUNT 3.58 MIL/MM3 (4.00-5.30); RED CELL DISTRIBUTION WIDTH 15.4 % (11.6-17.2); WHITE BLOOD COUNT 13.1 TH/MM3 (4.0-11.0)
[2016-09-09 08:35] VITALS: BP 132/75; PULSE 95; RESP 20; TEMP 97.9; O2SAT 96
[2016-09-09] MEDS: NYSTATIN 100,000 U/GM PWD 15 GM BTL TOPICAL SCH ×2 (09:00→21:00)
[2016-09-09] MEDS: CLOTRIMAZOLE 1% CREAM 15 GM TOPICAL SCH ×2 (09:00→21:49)
[2016-09-09] MEDS: PANTOPRAZOLE SOD 20 MG DELAYED RELEASE TAB PO SCH ×2 (09:43→20:52)
[2016-09-09] MEDS: RIVAROXABAN 20 MG TAB PO SCH (09:44)
[2016-09-09] MEDS: CALCIUM/VITAMIN D 250 MG/125 U TAB PO SCH ×2 (09:44→20:52)
[2016-09-09] MEDS: MAGNESIUM OXIDE 400 MG TAB PO SCH ×2 (09:44→20:53)
[2016-09-09] MEDS: LISINOPRIL 20 MG TAB PO SCH (09:45)
[2016-09-09] MEDS: DILTIAZEM-CD 180 MG CAP ER PO SCH (09:45)
[2016-09-09] MEDS: MULTIVITAMIN TAB PO SCH (09:45)
[2016-09-09] MEDS: ZINC SULFATE 220 MG CAP PO SCH (09:45)
[2016-09-09] MEDS: FERROUS SULFATE 325 MG (65 MG ELEMENTAL IRON) TAB PO SCH (09:45)
[2016-09-09] MEDS: SERTRALINE HCL 100 MG TAB PO SCH (09:45)
[2016-09-09] MEDS: MEGESTROL ACETATE SUSP 400 MG/10 ML CUP PO SCH (09:46)
[2016-09-09] MEDS: CALCITRIOL 0.25 MCG CAP PO SCH (09:46)
[2016-09-09] MEDS: LACTOBACILLUS ACIDOPHILUS TAB PO SCH ×3 (09:46→17:12)
[2016-09-09] MEDS: SODIUM CHLORIDE 0.9% FLUSH 5 ML FLUSH IV FLUSH SCH ×2 (09:46→20:59)
[2016-09-09] MEDS: COLLAGENASE OINT 30 GM TUBE TOP SCH (09:52)
[2016-09-09] MEDS: MUPIROCIN 2% OINT 22 GM TUBE TOPICAL SCH ×2 (09:53→20:57)
--- NOTE | 2016-09-09 13:57 | HHI.PR ---
Subjective Remarks Follow-up for enterocutaneous fistula, short gut syndrome. The RN informs me that the patient now has stool coming from the abdominal incision site and states it started after the patient strained to have a bowel movement. The night RN applied a colostomy bag to collect the drainage. The patient states that she had bad diarrhea yesterday. Admits to abdominal pain. Denies fevers, cough, or shortness of breath. Objective Vitals Vital Signs Date Time Temp Pulse Resp B/P Pulse Ox O2 Delivery O2 Flow Rate FiO2 09/09/16 08:35 97.9 95 20 132/75 96 09/08/16 20:00 97.1 114 20 158/82 94 I/O 09/08/16 09/08/16 09/08/16 09/09/16 09/09/16 09/09/16 07:00 15:00 23:00 07:00 15:00 23:00 Intake Total 480 ml 1317 ml 870 ml Output Total 450 ml 300 ml Balance 480 ml -450 ml 1317 ml 570 ml Intake Oral 150 ml IV Total 1317 ml 720 ml TPN/PPN 480 ml Output Urine Total 450 ml Stool Total 300 ml # Voids 6 Result Diagram: 09/09/16 0830 09/08/16 0710 Objective Remarks GENERAL: Pleasant well-developed patient in no apparent distress. SKIN: Warm and dry. There is a circular red ring with red pinpoint center and red rash present over medial right lower leg with rough texture, no worsening. See GI PE. CARDIOVASCULAR: Regular rate and rhythm. RESPIRATORY: Limited anterior exam. No accessory muscle use. Clear to auscultation. Breath sounds equal bilaterally. GASTROINTESTINAL: Normoactive bowel sounds. Abdomen soft, non-tender, non- distended. There is a dehisced abdominal incision with opening draining watery stool and flatus. NEUROLOGICAL: Awake and alert. Normal speech. Procedures Left stump debridement by Dr. 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 (4) Hypercoagulable state ICD Code: D68.59 Status: Chronic (5) HTN (hypertension) ICD Code: I10 Status: Chronic (6) Anxiety about health ICD Code: F41.8 Status: Chronic (7) Diarrhea ICD Code: R19.7 Status: Chronic (8) Severe protein-calorie malnutrition ICD Code: E43 Status: Acute (9) Fungal skin infection ICD Code: B36.9 Status: Resolved (10) Transient lingual papillitis ICD Code: K14.0 Status: Resolved (11) Hospital acquired PNA ICD Code: J18.9 Status: Resolved (12) Major depressive disorder, recurrent severe without psychotic features ICD Code: F33.2 Status: Chronic (13) Disseminated herpes zoster ICD Code: B02.7 Status: Resolved (14) Hypokalemia ICD Code: E87.6 Status: Resolved (15) Prerenal azotemia ICD Code: R79.89 Status: Acute Assessment and Plan Malnutrition: Severe protein-calorie malnutrition. 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 TPN for nutritional support as patient is not candidate for feeding tube. Continue Megace to stimulate appetite and nutritional supplements Monitor BGLs bid Palliative care consulted with patient on 09/01 Pre-albumin wnl (08/29). Patient's weight is stable. Dietitian evaluated the patient 09/07. Okay'd for additional menu items upon patient request. Continue Ensure Enlive QD. Continue current TPN and lipids per head irrigator. Patient increasingly eating more of her meals. SIRS: Leukocytosis: WBC 11.9 (09/07) --> 13.1 today. May be stress related from dehydration, diarrhea, or more likely from dehisced abdominal incision/actively draining fistula. Persistently tachycardic starting at the beginning of this month although, still elevated but improved today at 95. Thought due to dehydration, still elevated despite fluids. Sinus rhythm. TSH normal. Could be related to acute issues with fistula. Afebrile. Will evaluate for infection but no obvious infection at this time. -Recheck CBC and CMP tomorrow am. -Order UA -C.diff PCR Enterocutaneous fistula. Dr. Hill evaluated patient on 09/01/16 and debrided preperitoneal fat extruding from incision at bedside. Optimize nutrition with PO intake and TPN. Wound care. Patient now actively draining stool and flatus from site which appears dehisced. Have reconsulted general surgery. I spoke with Dr. Crouch, general surgeon, who states this has been happening off and on, and when patient does not have distal bowel movements she gets constipated and stool starts draining from fistula site. He advises to continue colostomy bag and he will see patient tonight or tomorrow. Diarrhea: Chronic secondary to short gut syndrome. Patient states was bad yesterday but there are only 2 BMs documented for the past 48 hours. C. difficile testing 08/23 negative. Hold Imodium and Lomotil due to drainage from fistula and pending C.diff testing. Pre-renal azotemia: BUN 37 yesterday. Cr normal. She was given 1L IV NS bolus for possible dehydration due to diarrhea, but BUN only minimally improved to 35. Patient had previously normal BUN at the end of July. -I have encouraged po hydration, although azotemia is likely being caused by the TPN. Will need to confer with head irrigator to assess how much longer patient will require TPN as she appears to have improved nutritionally. -Monitor BMP periodically. Pain control -Ibuprofen 400 mg every 8 hours as needed for pain 15 -Ultram prn as directed Deconditioning Continue PT/OT during the patient's stay in the hospital Trapeze ordered to allow better upper body mobility but has not received yet. Hypertension Cardizem CD 120 mg daily Lisinopril 40 mg daily Monitor Staph Hominis bacteremia, treated ID following, Dr. Greenfield. 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 Olvera. S/ P debridement- dry, treated Wound cultures grew Klebsiella ESBL positive and Morganella finished treatment with zerbaxa Patient may receive prosthesis, but still has scabbing over stump. Wound R great toe: Patient clipped the skin of the medial nailfold of right great toe weeks ago. There is small area of black discoloration. There is no indication of active infection. There may be delayed wound healing, but toes appear adequately perfused. Nothing to do at this time. Will closely monitor. Rash: Resolved. Unusual appearance and presentation, neg for herpes, biopsy inconclusive. Possibly related to zinc deficiency. Zinc could not be added to TPN per pharmacy. On oral zinc sulfate replacement. Continue zinc oxide paste to buttock Possible tinea corporis: rash to R leg: -Continue clotrimazole 1% cream bid x 2 weeks. Hypercoagulable state: Chronic and stable History of ischemic bowel and severe peripheral vascular disease. Continue Xarelto Anxiety and depression: Stable Continue Seroquel and Zoloft. Continue Remeron. COPD: Stable. Patient with good O2 sats on room air Patient has not required any breathing treatments Pulmonary nodule. Repeat CT recommended in 6 mos. Patient previously counseled about this finding and the need to follow-up. GI protection secondary for prolonged hospitalization Protonix DVT prevention Xarelto Written by Kathy Parmar PA-C acting as scribe for Dr. Washington on 09/09/16 at ~1305. The documentation accurately reflects the work and decisions performed face-to- face by me Dr. Washington on 09/09/16 at ~1305. Discharge Planning PT and OT recommend rehab. Patient cannot be placed until TPN is discontinued. [facility] is out of network. Problem Qualifiers (1) HTN (hypertension): Qualified Code: I10 - Essential hypertension (2) Diarrhea: Qualified Code: R19.7 - Diarrhea, unspecified type Kathy Parmar Sep 09, 2016 13:56
[2016-09-09 15:54] LABS: BLOOD, URINE TRACE (NEG); GLUCOSE,URINE NEG (NEG); KETONE, URINE NEG (NEG); NITRITE,URINE NEG (NEG); PH, URINE 5.5 (5.0-8.5)
[2016-09-09 16:00] LABS: METHOD OF COLLECTION CLEAN CATCH; URINE COLOR YELLOW (YELLW/STRAW)
[2016-09-09 16:01] LABS: BACTERIA, URINE FEW /hpf; COMMENT (UR) CULTURE INDICATED; CULTURE IF INDICATED CULTURE INDICATED; SQUAMOUS EPITHELIAL CELL URINE 0-5 /hpf (0-5); WBC, URINE 100-200 /hpf (0-5)
[2016-09-09] MEDS: traMADol HCL 50 MG TAB PO PRN (19:39)
[2016-09-09 20:00] VITALS: BP 110/66; PULSE 112; RESP 18; TEMP 98.7; O2SAT 97
[2016-09-09] MEDS: GABAPENTIN 100 MG CAP PO SCH (20:52)
[2016-09-09] MEDS: MIRTAZAPINE ODT 15 MG TAB PO SCH (20:52)
[2016-09-09] MEDS: CLINIMIX E 5/25 2000 mL- >42 mls/hr IV-CENTRAL SCH ×3 (20:59)
[2016-09-09 23:31] LABS: C. DIFF EPI 027 PRESUMPTIVE NEGATIVE (NEGATIVE); C. DIFF TOXIN PCR NEGATIVE (NEGATIVE)
[2016-09-10] MEDS: ALPRAZolam 0.25 MG TAB PO SCH ×3 (05:32→21:13)
[2016-09-10 06:25] LABS: AUTOMATED NEUTROPHIL # 8.3 TH/MM3 (1.8-7.7); BASOPHIL # 0.2 TH/MM3 (0-0.2); BASOPHIL % 1.3 % (0.0-2.0); EOSINOPHIL # 0.3 TH/MM3 (0-0.4); EOSINOPHIL % 2.3 % (0.0-4.0); HEMATOCRIT 32.9 % (35.0-46.0); LYMPH % 24.1 % (9.0-44.0); LYMPHOCYTE # 3.1 TH/MM3 (1.0-4.8); MEAN CELL VOLUME 92.7 FL (80.0-100.0); MEAN CORPUSCULAR HEMOGLOBIN 30.5 PG (27.0-34.0); MEAN CORPUSCULAR HGB CONC 32.9 % (32.0-36.0); MONO % 7.7 % (0.0-8.0); NEUT % 64.6 % (16.0-70.0); PLATELET COUNT 414 TH/MM3 (150-450); RED BLOOD COUNT 3.54 MIL/MM3 (4.00-5.30); RED CELL DISTRIBUTION WIDTH 15.4 % (11.6-17.2); WHITE BLOOD COUNT 12.9 TH/MM3 (4.0-11.0)
[2016-09-10 06:27] LABS: HEMO FLAGS DIFF FINAL
[2016-09-10 06:32] LABS: CHLORIDE 109 MEQ/L (98-107); POTASSIUM 4.3 MEQ/L (3.5-5.1); SODIUM (NA) 141 MEQ/L (136-145)
[2016-09-10 06:38] LABS: ANION GAP 10 MEQ/L (5-15); BICARBONATE 22.5 MEQ/L (21.0-32.0); BLOOD UREA NITROGEN 36 MG/DL (7-18)
[2016-09-10 06:41] LABS: ALT (GPT) 20 U/L (10-53); AST (GOT) 11 U/L (15-37); GLOMERULAR FILTRATION RATE 75 ML/MIN (>89)
[2016-09-10 06:42] LABS: TOTAL BILIRUBIN ADULT 0.3 MG/DL (0.2-1.0)
[2016-09-10 06:44] LABS: ALKALINE PHOSPHATASE 94 U/L (45-117)
[2016-09-10] MEDS: MULTIVITAMIN TAB PO SCH (08:19)
[2016-09-10] MEDS: SERTRALINE HCL 100 MG TAB PO SCH (08:20)
[2016-09-10] MEDS: FERROUS SULFATE 325 MG (65 MG ELEMENTAL IRON) TAB PO SCH (08:20)
[2016-09-10] MEDS: LISINOPRIL 20 MG TAB PO SCH (08:21)
[2016-09-10] MEDS: MAGNESIUM OXIDE 400 MG TAB PO SCH ×2 (08:21→21:13)
[2016-09-10] MEDS: DILTIAZEM-CD 180 MG CAP ER PO SCH (08:22)
[2016-09-10] MEDS: RIVAROXABAN 20 MG TAB PO SCH (08:22)
[2016-09-10] MEDS: PANTOPRAZOLE SOD 20 MG DELAYED RELEASE TAB PO SCH ×2 (08:22→21:13)
[2016-09-10] MEDS: LACTOBACILLUS ACIDOPHILUS TAB PO SCH ×3 (08:22→18:00)
[2016-09-10] MEDS: traMADol HCL 50 MG TAB PO PRN (08:23)
[2016-09-10] MEDS: MEGESTROL ACETATE SUSP 400 MG/10 ML CUP PO SCH (08:23)
[2016-09-10] MEDS: IBUPROFEN 400 MG TAB PO PRN (08:24)
[2016-09-10] MEDS: SODIUM CHLORIDE 0.9% FLUSH 5 ML FLUSH IV FLUSH SCH ×2 (08:27→21:12)
[2016-09-10] MEDS: CALCIUM/VITAMIN D 250 MG/125 U TAB PO SCH ×2 (08:27→21:13)
[2016-09-10] MEDS: MUPIROCIN 2% OINT 22 GM TUBE TOPICAL SCH ×2 (08:30→21:00)
[2016-09-10] MEDS: COLLAGENASE OINT 30 GM TUBE TOP SCH (08:30)
[2016-09-10] MEDS: ZINC SULFATE 220 MG CAP PO SCH (08:39)
[2016-09-10] MEDS: CALCITRIOL 0.25 MCG CAP PO SCH (08:40)
[2016-09-10 08:42] VITALS: BP 132/83; PULSE 104; RESP 20; TEMP 95.4; O2SAT 97
[2016-09-10] MEDS: CLOTRIMAZOLE 1% CREAM 15 GM TOPICAL SCH ×2 (09:00→21:00)
[2016-09-10] MEDS: NYSTATIN 100,000 U/GM PWD 15 GM BTL TOPICAL SCH ×2 (09:00→21:00)
--- NOTE | 2016-09-10 09:54 | HHI.PR ---
Subjective Remarks Follow-up for malnutrition, enterocutaneous fistula, chronic diarrhea. Patient denies any fevers or chills. Denies dysuria, but does admit to increased frequency and urgency of urination. RN informs me the patient has had increased stool through the fistula and it is leaking onto the skin. Objective Vitals Vital Signs Date Time Temp Pulse Resp B/P Pulse Ox O2 Delivery O2 Flow Rate FiO2 09/10/16 08:42 95.4 104 20 132/83 97 09/09/16 20:00 98.7 112 18 110/66 97 I/O 09/09/16 09/09/16 09/09/16 09/10/16 09/10/16 09/10/16 07:00 15:00 23:00 07:00 15:00 23:00 Intake Total 870 ml 1160 ml 463 ml 457 ml Output Total 300 ml 640 ml Balance 570 ml 520 ml 463 ml 457 ml Intake Oral 150 ml IV Total 720 ml 1160 ml TPN/PPN 463 ml 457 ml Output Urine Total 590 ml Stool Total 300 ml Drainage Total 50 ml # Voids 6 # Bowel Movements 2 Result Diagram: 09/10/1615 09/10/16 0615 Imaging Last Impressions Liver Ultrasound 07/12/16 0000 Signed Impressions: Service Date/Time: Tuesday, July 12, 2016 18:07 - CONCLUSION: 1. No acute abnormality demonstrated. 2. Heterogeneous liver without measurable mass. 3. Small and heterogeneous spleen without a measurable mass. 4. Cortical thinning and scarring of the right kidney. 5. Previous cholecystectomy. Calixto Woodruff MD Chest CT 07/09/16 0000 Signed Impressions: Service Date/Time: Saturday, July 09, 2016 14:43 - CONCLUSION: 1. Small right pleural effusion and minimal right basilar consolidation. 2. 6 mm left basilar nodule. Followup CT chest 6 months recommended. Florian Pepper MD Chest X-Ray 07/08/16 0000 Signed Impressions: Service Date/Time: Friday, July 08, 2016 16:26 - CONCLUSION: Chronic right lung base opacity unchanged. No new pulmonary opacity. Alexandru Lynch MD Lower Extremity Ultrasound 06/25/16 0000 Signed Impressions: Service Date/Time: Saturday, June 25, 2016 15:56 - CONCLUSION: Negative exam with no evidence of deep venous thrombosis. Soft tissue edema. Mike Leija MD Port Line Insertion 06/20/16 0000 Signed Impressions: Service Date/Time: Monday, June 20, 2016 08:53 - CONCLUSION: Uncomplicated ultrasound and fluoroscopic guided implanted central venous port catheter placement as described in detail above. An 8 Bengali Power port was placed. Kevan Salgado Jr., MD Objective Remarks GENERAL: Pleasant well-developed patient in no apparent distress. SKIN: Warm and dry. CARDIOVASCULAR: Tachycardic rate and regular rhythm. RESPIRATORY: Limited anterior exam. No accessory muscle use. Clear to auscultation. Breath sounds equal bilaterally. GASTROINTESTINAL: Abdomen non-distended. There is a dehisced abdominal incision with opening draining watery stool into colostomy bag with leaking inferiorly. NEUROLOGICAL: Awake and alert. Normal speech. Procedures Left stump debridement by Dr. 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 (5) Hypercoagulable state ICD Code: D68.59 Status: Chronic (6) HTN (hypertension) ICD Code: I10 Status: Chronic (7) Anxiety about health ICD Code: F41.8 Status: Chronic (8) Diarrhea ICD Code: R19.7 Status: Chronic (9) Severe protein-calorie malnutrition ICD Code: E43 Status: Acute (10) Fungal skin infection ICD Code: B36.9 Status: Resolved (11) Transient lingual papillitis ICD Code: K14.0 Status: Resolved (12) Hospital acquired PNA ICD Code: J18.9 Status: Resolved (13) Major depressive disorder, recurrent severe without psychotic features ICD Code: F33.2 Status: Chronic (14) Disseminated herpes zoster ICD Code: B02.7 Status: Resolved (15) Hypokalemia ICD Code: E87.6 Status: Resolved (16) Prerenal azotemia ICD Code: R79.89 Status: Acute Assessment and Plan Sepsis: Leukocytosis: WBC 11.9 (09/07) --> 13.1-->12.9 today. Tachycardic 104 this morning. Lactic acid normal. Although WBC and HR could be due to stress from diarrhea, fistula draining, pain, patient does have a source of infection. UA appears infected. -Monitor CBC -Urine culture pending. -BC x 2 ordered -Start IV antibiotics as below for UTI UTI: Patient symptomatic with increased frequency and urgency of urination. RN reported patient had some urinary incontinence yesterday. Urine with trace occult blood, large leukocyte esterase, 100-200 white blood cells, moderate white blood cell clumps, few bacteria, and no increase in squamous epithelial cells. Urine culture from 07/26 with Morganella Morgagni which was the same organism patient had in left lower extremity stump infection. She is s/p treatment with ertapenem. Patient has history of MDRO. Sensitivity from urine culture report shows several resistant drugs and patient has a penicillin allergy. Discussed with Dr. [place]. I ordered Avycaz but pharmacy states this is not in stock. Patient will be started on Fortaz IV instead. Although patient meets sepsis criteria, WBC is improved from yesterday and so will hold off on more aggressive treatment with ertapenem at this time until new culture results. -Urine culture 09/09 pending. Enterocutaneous fistula: Dr. Hill evaluated patient on 09/01/16 and debrided preperitoneal fat extruding from incision at bedside. Optimize nutrition with PO intake and TPN. Wound care. Patient now actively draining stool and flatus from site which appears dehisced. Have reconsulted general surgery. I spoke with Dr. Crouch, general surgeon, on 09/09 who states this has been happening off and on, and when patient does not have distal bowel movements she gets constipated and stool starts draining from fistula site. He advises to continue colostomy bag and he will see patient. He has not yet seen the patient. RN is informed to call this afternoon if he does not come. Diarrhea: Chronic secondary to short gut syndrome. Patient states diarrhea was bad on Sunday. 2 BMs documented over the past 24 hours. New C. difficile testing 09/09 negative. Hold Imodium and Lomotil for now. Pre-renal azotemia: BUN stable at 36. Cr normal. She was given 1L IV NS bolus for possible dehydration due to diarrhea, but BUN only minimally improved. Patient had previously normal BUN at the end of July. -I have encouraged po hydration, although azotemia is likely being caused by the TPN. Will need to confer with line service attendant to assess how much longer patient will require TPN as she appears to be improving nutritionally. -Monitor BMP periodically. Malnutrition: Severe protein-calorie malnutrition. 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 TPN for nutritional support as patient is not candidate for feeding tube. Continue Megace to stimulate appetite and nutritional supplements Monitor BGLs bid Palliative care consulted with patient on 09/01 Pre-albumin wnl (08/29). Albumin improved to 2.7 on 09/10. Patient's weight is stable. Dietitian evaluated the patient 09/07. Okay'd for additional menu items upon patient request. Continue Ensure Enlive QD. Continue current TPN and lipids per line service attendant. Patient increasingly eating more of her meals. Pain control -Ibuprofen 400 mg every 8 hours as needed for pain 15 -Ultram prn as directed -Add Dilaudid 0.5 mg q4 hours prn breakthrough due to acute abdominal pain; RN informs me patient hallucinates with morphine use. Deconditioning Continue PT/OT during the patient's stay in the hospital Trapeze ordered to allow better upper body mobility but has not received yet. Hypertension Cardizem CD 120 mg daily Lisinopril 40 mg daily Monitor Staph Hominis bacteremia, treated ID following, Dr. Greenfield. 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 Olvera. S/ P debridement- dry, treated Wound cultures grew Klebsiella ESBL positive and Morganella finished treatment with zerbaxa Patient may receive prosthesis, but still has scabbing over stump. Wound R great toe: Patient clipped the skin of the medial nailfold of right great toe weeks ago. There is small area of black discoloration. There is no indication of active infection. There may be delayed wound healing, but toes appear adequately perfused. Nothing to do at this time. Will closely monitor. Rash: Resolved. Unusual appearance and presentation, neg for herpes, biopsy inconclusive. Possibly related to zinc deficiency. Zinc could not be added to TPN per pharmacy. On oral zinc sulfate replacement. Continue zinc oxide paste to buttock Possible tinea corporis: rash to R leg: -Continue clotrimazole 1% cream bid x 2 weeks. Hypercoagulable state: Chronic and stable History of ischemic bowel and severe peripheral vascular disease. Continue Xarelto Anxiety and depression: Stable Continue Seroquel and Zoloft. Continue Remeron. COPD: Stable. Patient with good O2 sats on room air Patient has not required any breathing treatments Pulmonary nodule. Repeat CT recommended in 6 mos. Patient previously counseled about this finding and the need to follow-up. GI protection secondary for prolonged hospitalization Protonix DVT prevention Xarelto Discharge Planning PT and OT recommend rehab. Patient cannot be placed until TPN is discontinued. [facility] is out of network. Problem Qualifiers (1) HTN (hypertension): Qualified Code: I10 - Essential hypertension (2) Diarrhea: Qualified Code: R19.7 - Diarrhea, unspecified type Kathy Parmar Sep 10, 2016 09:53
[2016-09-10] MEDS ORDERED: MORPHINE SULFATE 4 MG/ML INJ IV PRN (10:00)
[2016-09-10] MEDS ORDERED: NALOXONE HCL 0.4 MG/ML AMP IV PRN (10:00)
[2016-09-10] MEDS ORDERED: cefTAZidime/AVIBACTAM INJ 2.5 GM in SODIUM CHLORIDE 0.9% INJ 50 ML IV SCH (10:15)
[2016-09-10] MEDS ORDERED: ERTAPENEM SODIUM 1000 MG VIAL IM SCH (11:00)
[2016-09-10 11:45] LABS: APTT (PATIENT) 36.2 SEC (24.3-30.1); INTERNATIONAL NORMALIZED RATIO 1.2 RATIO; PROTHROMBIN TIME - PATIENT 13.4 SEC (9.8-11.6)
[2016-09-10] MEDS: SODIUM CHLORIDE 0.9% FLUSH 5 ML FLUSH IVF PRN (13:00)
[2016-09-10] MEDS: cefTAZidime INJ 1,000 MG in SODIUM CHLORIDE 0.9% INJ 100 ML IV SCH ×2 (13:02→21:10)
[2016-09-10] MEDS: HYDROmorphone HCL PF 1 MG/ML VIAL IV PRN ×3 (13:16→21:31)
--- NOTE | 2016-09-10 16:09 | PD.CAR.PN ---
CVT Progress Note Subjective/Hospital Course: 70-year-old female with a complex medical and surgical history of peripheral vascular disease and multiple related problems presents now status post BK amputation about a month half ago. Patient went to detention and apparently braced herself on the stump several times in bed in hit it against either floor or the chair not quite clear. Part of the stump opened up and at this point patient is dehiscence of skin deeper tissue seemed to be still intact. 06/16/16 Patient underwent yesterday debridement of the stump with wound VAC placement. The dehiscence is fortunately superficial involving skin and muscle in this as been debrided successfully while the rest of the tissues of bleeding and are viable. Wound VAC has been placed Cultures have been reviewed and antibiotics can be adjusted by medicine as appropriate We'll continue current care and patient should be able to go to detention with a wound VAC by Sunday Patient's nutritional status is very poor with a low albumen and prealbumin level and therefore nutritional evaluation and recommendations are requested I believe the patient is not taking sufficient by mouth in the detention and may need supplemental enteral or parenteral feedings at this point 06/17/16 I reviewed the nutritional parameters and patient's prealbumin and transferrin levels a critically low indicating severe malnutrition. Patient's healing is impaired and so is the rehabilitative potential. After reviewing to nutritional recommendations once these are made, we will decide whether patient needs an Srmmks-o-Otlz placed for additional parenteral nutrition for short bowel syndrome Stump is nice and clean with minimal drainage from the wound VAC 06/19/16 Still awaiting nutritional consult and evaluation for patient has short gut syndrome and will probably need additional parenteral feedings. If so patient will need Kzjuva-u-Wght placement for additional feedings Patient is taking excellent by mouth but despite that her nutritional status is poor and hence the healing issues Left BKA stump incision is clean and wound VAC is in place with minimal drainage and will need to be changed today Awaiting wound care to change the wound VAC. Infectious disease help is much appreciated 06/20/2016 Patient doing well at this time. Stump is clean and the wound VAC will be changed today Patient had Fgqrup-m-Kbmw placed by radiology for supplemental parenteral feedings. Grateful for the nutritional evaluation. Patient will be placed on TPN at about the 1500 non-protein calories a day split about 60-70% in glucose and about 30% in form of lipids Patient will likely have to be discharged on supplemental TPN in face of her short bowel syndrome 06/21/16 Patient is doing really well at this time She's taking good by mouth diet. 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 There is some granulation tissue which may eventually need to be debrided but at this point I would leave it alone. Stump wound VAC has been changed and this is clean and granulating nicely. Patient is currently on TPN which tolerating well. In face of her short bowel syndrome patient will need TPN after discharge from the hospital. Grateful to case management for making arrangements for the same 06/22/16 Vital signs stable patient is doing well. Her appetite has improved and patient is taking good by mouth diet and having regular bowel movements. The abdominal incision is completely healed and fistula has completely resolved. The BKA wound VAC has been changed and wound is clean and granulating nicely. Kugadu-h-Iaxv is being used for additional parenteral feedings necessary and short bowel syndrome and patient will be discharged on TPN. 06/23/16 Patient underwent today change of the wound VAC and the wound is clean. Next with will be the last wound VAC change and after that I plan to take the patient to the OR for irrigation and closure of the wound by the middle of the next week. 06/24/16 Patient doing very well at this time she is in a good mood and taking by mouth diet well Unfortunately due to the short bowel syndrome she need supplemental TPN feedings at this time Stump is healed nicely there is a small scab anterior to it and this should allow to fall off on its own Once the arrangements are made for outpatient TPN patient will be able to be discharged Awaiting case management to make the arrangements for outpatient TPN 06/25/16 Vital signs stable Patient is awake and alert and oriented, taking by mouth diet very well Abdomen is soft and the colocutaneous fistula is completely closed The BKA stump has an eschar and a scab but I would leave this alone because underneath its healing nicely. Patient remains on TPN considering the short gut syndrome and will go home on the same Mild anemia is dilutional due to TPN administration and intravenous fluids and does not require therapy at this time 06/26/16 Vital signs stable Patient is awake and alert and oriented, taking by mouth diet very well Abdomen is soft and the colocutaneous fistula is completely closed The BKA stump has an eschar and a scab but I would leave this alone because underneath its healing nicely. Patient remains on TPN considering the short gut syndrome and will go home on the same Mild anemia is dilutional due to TPN administration and intravenous fluids and does not require therapy at this time 06/27/16 Wound VAC has been removed by me and the the entire stump is healed very nicely except a small area but an inch length at the very lateral portion of the incision were we going to put a very small wound VAC on for another week or so. Patient can transfer to rehabilitation at any time as long as she can get intravenous TPN in the process 06/28/16 Wound VAC has been removed by me and the the entire stump is healed very nicely except a small area but an inch length at the very lateral portion of the incision were we going to put a very small wound VAC on for another week or so. Patient can transfer to rehabilitation at any time as long as she can get intravenous TPN Patient will need residential TPN considering short gut syndrome and this can be done either in a detention or at home I suspect this will be about a six-month process and after that patient may not need additional feedings if we can get her in a reasonable nutritional status in the meantime. I understand the difficulty this creates for case management to find her such an arrangement 06/29/16 Patient doing really well at this time taking good by mouth but due to the short bowel syndrome will require long-term TPN Stump is healing really nicely and the probably after this week we will remove the wound VAC and simply place wet-to-dry dressing and allow this to heal 06/30/16 Patient is doing well tolerates diet. Abdomen is soft with active bowel sounds Incisions are clean and dry Wound VAC last change will be next week and after that we going to remove the wound VAC and continue wet-to-dry dressing Stump is healing really nicely Due to TPN and other issues placement remains a problem 07/01/16 Abdomen soft and active bowel sounds Tolerates diet well Stump is clean and dry and I'll remove the wound VAC on Sunday after that patient will just be on wet-to-dry dressings until the stump heels Arrangements for discharge to difficult due to long-term TPN needs 07/03/16 Vital signs stable Stump is clean and wound VAC after next removal won't need to be applied again Patient will remain long-term on TPN and I'm waiting for case management to make discharge arrangements Will [facility] medicine kindly if patient can be transferred to medicine service at this time 07/14/16 Patient is a placement issue apparently is still in the hospital The left BKA stump is healed nicely except for very small air about 1 cm which is granulating in on the lateral aspect of the stump Apparently the enterocutaneous fistula was close for about month and a half and opened up 2 days ago draining some stool It should be noted that the bowel is quite close to the skin and patient is very thin and malnourished so it is not surprising that fistula opens and closes sporadically. With enteral and parenteral nutrition that should close but clearly patient is very frail and it could open up any time Nothing to add to care at this time 07/26/16 Discussed the patient with medical attending. She has systemic cutaneous herpes zoster and is on appropriate medications The drainage from anterior abdominal wall is very minimal however irritating to the skin of the abdominal wall in face of herpes and the nature of intestinal fluid. Just putting dressings will only worsen the situation so patient should be treated with the stoma and coverage of the skin. Unfortunately the colostomy material will not stick to the skin and the contents will leak underneath it. At point is best solution was due to apply Silvadene ointment daily and then dressing Patient's appetite is very poor sure refuses food and she remains on TPN although her GI tract is completely patent Her prognosis in general is for due to malnutrition short bowel syndrome and immune failure. 09/01/16 Patient seen at [facility]. Patient has tremendously improved in the last month or so. The rash she had has since disappeared I am not sure this was a herpetic rash or perhaps caused by zinc or selenium deficiency At this point patient is eating well and she is again about 15 pounds. Her short bowel syndrome as being managed adequately with improvement of by mouth intake and modification of the diet Abdomen is soft with active bowel sounds and the fistula has closed There is small amount of preperitoneal fat extruding from the abdomen incision. I debrided this at the bedside In the worse case scenario patient would have to go to the operating room to have this cauterized away and reclosed but I would certainly like to avoid this in this lady was finally recovering nicely 11/20/16 Last night patient was straining when going to bathroom and enterocutaneous fistula opened up again Patient is now draining stool over the last 24 hours. 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 She underwent several surgeries and it is a miracle that patient has survived all this. The fistulous tract has now opened and closed about 5 times since September last when patient's first came and this is now another instance of the same. As far as the fistulous tract is concerned this patient is not a candidate for an open surgery due to malnutrition, short bowel syndrome in the anatomic considerations. Going into this abdomen with resultant multiple fistulas, damage to the remaining small bowel and likely of the patient Therefore the appropriate way to manage this as conservatively filled the fistula tracts closes again Physical examination reveals skin inferior to the fistula to be starting to get red again and irritated although it was nicely healed as stated in above note It should be noted that this is distal small bowel content and therefore fairly caustic so meticulous care has to be taken not to allow this to be in contact with the skin On my arrival one part of the fistula in the midline is covered with a colostomy bag while the stool is freely draining all over the patient's abdomen between the legs and on the bed I went into the room ostomy nurse to come with me and removed personally everything cleaned patient up with nursing assistance I said down with the gatehouse attendant and the nurse and explained in detail how this should be covered and how the stoma should be structured in order to protect the skin Apparently large pieces of stoma skin adhesive material are not available here and let to be brought from [facility]. The same large pieces were used when patient first came to [place] and care was described in orders At this point meticulous care has to be taken in order to prevent skin damage and free leakage It is also imperative that the wound care gets involved in management of this patient Objective: Vital Signs Date Time Temp Pulse Resp B/P Pulse Ox O2 Delivery O2 Flow Rate FiO2 09/10/16 09:23 20 09/10/16 09:23 20 09/10/16 08:42 95.4 104 20 132/83 97 09/09/16 20:00 98.7 112 18 110/66 97 Labs: Laboratory Tests Test 09/10/16 09/10/16 06:15 11:20 White Blood Count 12.9 TH/MM3 (4.0-11.0) Red Blood Count 3.54 MIL/MM3 (4.00-5.30) Hemoglobin 10.8 GM/DL (11.6-15.3) Hematocrit 32.9 % (35.0-46.0) Mean Corpuscular Volume 92.7 FL (80.0-100.0) Mean Corpuscular Hemoglobin 30.5 PG (27.0-34.0) Mean Corpuscular Hemoglobin 32.9 % Concent (32.0-36.0) Red Cell Distribution Width 15.4 % (11.6-17.2) Platelet Count 414 TH/MM3 (150-450) Mean Platelet Volume 7.2 FL (7.0-11.0) Neutrophils (%) (Auto) 64.6 % (16.0-70.0) Lymphocytes (%) (Auto) 24.1 % (9.0-44.0) Monocytes (%) (Auto) 7.7 % (0.0-8.0) Eosinophils (%) (Auto) 2.3 % (0.0-4.0) Basophils (%) (Auto) 1.3 % (0.0-2.0) Neutrophils # (Auto) 8.3 TH/MM3 (1.8-7.7) Lymphocytes # (Auto) 3.1 TH/MM3 (1.0-4.8) Monocytes # (Auto) 1.0 TH/MM3 (0-0.9) Eosinophils # (Auto) 0.3 TH/MM3 (0-0.4) Basophils # (Auto) 0.2 TH/MM3 (0-0.2) CBC Comment DIFF FINAL Differential Comment Sodium Level 141 MEQ/L (136-145) Potassium Level 4.3 MEQ/L (3.5-5.1) Chloride Level 109 MEQ/L (98-107) Carbon Dioxide Level 22.5 MEQ/L (21.0-32.0) Anion Gap 10 MEQ/L (5-15) Blood Urea Nitrogen 36 MG/DL (7-18) Creatinine 0.76 MG/DL (0.50-1.00) Estimat Glomerular Filtration 75 ML/MIN (>89) Rate Random Glucose 125 MG/DL (74-106) Calcium Level 8.4 MG/DL (8.5-10.1) Total Bilirubin 0.3 MG/DL (0.2-1.0) Aspartate Amino Transf 11 U/L (15-37) (AST/SGOT) Alanine Aminotransferase 20 U/L (10-53) (ALT/SGPT) Alkaline Phosphatase 94 U/L (45-117) Total Protein 7.0 GM/DL (6.4-8.2) Albumin 2.7 GM/DL (3.4-5.0) Prothrombin Time 13.4 SEC (9.8-11.6) Prothromb Time International 1.2 RATIO Ratio Activated Partial 36.2 SEC Thromboplast Time (24.3-30.1) Lactic Acid Level 1.4 mmol/L (0.4-2.0) Result Diagram: 09/10/16 0615 09/10/16 0615 Janice Olvera MD Sep 10, 2016 16:09
[2016-09-10 20:00] VITALS: BP 113/73; PULSE 94; RESP 16; TEMP 96.6; O2SAT 97
[2016-09-10] MEDS: MIRTAZAPINE ODT 15 MG TAB PO SCH (21:13)
[2016-09-10] MEDS: GABAPENTIN 100 MG CAP PO SCH (21:13)
[2016-09-10] MEDS: FAT EMULSION 20% INJ 250 ML (Twice weekly over 8 hours) IV-CENTRAL SCH (21:15)
[2016-09-10] MEDS: CLINIMIX E 5/25 2000 mL- >42 mls/hr IV-CENTRAL SCH ×3 (21:15)
[2016-09-11] MEDS: SODIUM CHLORIDE 0.9% FLUSH 5 ML FLUSH IVF PRN (04:15)
[2016-09-11] MEDS: cefTAZidime INJ 1,000 MG in SODIUM CHLORIDE 0.9% INJ 100 ML IV SCH (04:16)
[2016-09-11] MEDS: ALPRAZolam 0.25 MG TAB PO SCH ×3 (05:25→21:56)
[2016-09-11 08:00] VITALS: BP 114/65; PULSE 99; RESP 18; TEMP 97.5; O2SAT 98
[2016-09-11 08:32] LABS: BASOPHIL # 0.1 TH/MM3 (0-0.2); BASOPHIL % 0.6 % (0.0-2.0); EOSINOPHIL # 0.4 TH/MM3 (0-0.4); EOSINOPHIL % 3.7 % (0.0-4.0); HEMATOCRIT 30.4 % (35.0-46.0); LYMPH % 19.7 % (9.0-44.0); LYMPHOCYTE # 2.2 TH/MM3 (1.0-4.8); MEAN CELL VOLUME 91.8 FL (80.0-100.0); MEAN CORPUSCULAR HEMOGLOBIN 30.1 PG (27.0-34.0); MEAN CORPUSCULAR HGB CONC 32.8 % (32.0-36.0); MONO % 3.6 % (0.0-8.0); NEUT % 72.4 % (16.0-70.0); PLATELET COUNT 376 TH/MM3 (150-450); RED BLOOD COUNT 3.31 MIL/MM3 (4.00-5.30); WHITE BLOOD COUNT 11.1 TH/MM3 (4.0-11.0)
[2016-09-11 08:36] LABS: HEMO FLAGS AUTO DIFF
[2016-09-11 08:38] LABS: POTASSIUM 4.7 MEQ/L (3.5-5.1)
[2016-09-11 08:45] LABS: BICARBONATE 22.2 MEQ/L (21.0-32.0)
[2016-09-11] MEDS: MUPIROCIN 2% OINT 22 GM TUBE TOPICAL SCH ×2 (09:00→21:58)
[2016-09-11] MEDS: SODIUM CHLORIDE 0.9% FLUSH 5 ML FLUSH IV FLUSH SCH ×2 (09:00→21:57)
[2016-09-11] MEDS: COLLAGENASE OINT 30 GM TUBE TOP SCH (09:00)
[2016-09-11] MEDS: CLOTRIMAZOLE 1% CREAM 15 GM TOPICAL SCH ×2 (09:00→21:57)
[2016-09-11] MEDS: CALCITRIOL 0.25 MCG CAP PO SCH (09:00)
[2016-09-11] MEDS: NYSTATIN 100,000 U/GM PWD 15 GM BTL TOPICAL SCH ×2 (09:00→21:58)
[2016-09-11 09:23] LABS: SCAN/DIFF AUTO DIFF CONFIRMED
--- NOTE | 2016-09-11 10:10 | HHI.PR ---
Subjective Remarks Follow-up for enterocutaneous fistula. Patient's pain is better controlled after adding medication yesterday. Admits to abdominal soreness, rates pain a 5/ 10. Denies any fevers or chills. Denies vomiting. Objective Vitals Vital Signs Date Time Temp Pulse Resp B/P Pulse Ox O2 Delivery O2 Flow Rate FiO2 09/11/16 08:00 97.5 99 18 114/65 98 09/10/16 20:00 96.6 94 16 113/73 97 09/10/16 16:54 20 I/O 09/10/16 09/10/16 09/10/16 09/11/16 09/11/16 09/11/16 07:00 15:00 23:00 07:00 15:00 23:00 Intake Total 457 ml 550 ml 1335 ml 1002 ml Balance 457 ml 550 ml 1335 ml 1002 ml Intake Oral 250 ml 250 ml IV Total 100 ml 104 ml 145 ml TPN/PPN 457 ml 450 ml 981 ml 380 ml Lipid 227 ml # Voids 2 2 # Bowel Movements 1 Result Diagram: 09/11/1681909/11/1620 Objective Remarks GENERAL: Pleasant well-developed patient in no apparent distress. SKIN: Warm and dry. See GI. CARDIOVASCULAR: Tachycardic rate. Regular rhythm with occasional skipped beat. RESPIRATORY: Limited anterior exam. No accessory muscle use. Clear to auscultation. Breath sounds equal bilaterally. GASTROINTESTINAL: Normoactive bowel sounds. Abdomen soft, non-distended. Colostomy bag in place with stool present. There is no further leaking inferiorly, but the skin appears macerated. NEUROLOGICAL: Awake and alert. Normal speech. Procedures Left stump debridement by Dr. 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 (5) Hypercoagulable state ICD Code: D68.59 Status: Chronic (6) HTN (hypertension) ICD Code: I10 Status: Chronic (7) Anxiety about health ICD Code: F41.8 Status: Chronic (8) Diarrhea ICD Code: R19.7 Status: Chronic (9) Severe protein-calorie malnutrition ICD Code: E43 Status: Acute (10) Fungal skin infection ICD Code: B36.9 Status: Resolved (11) Transient lingual papillitis ICD Code: K14.0 Status: Resolved (12) Hospital acquired PNA ICD Code: J18.9 Status: Resolved (13) Major depressive disorder, recurrent severe without psychotic features ICD Code: F33.2 Status: Chronic (14) Disseminated herpes zoster ICD Code: B02.7 Status: Resolved (15) Hypokalemia ICD Code: E87.6 Status: Resolved (16) Prerenal azotemia ICD Code: R79.89 Status: Acute Assessment and Plan Sepsis: Resolving. WBC 13.1-->11.1 today. Tachycardic. Lactic acid normal. Patient was started on treatment for suspected UTI, but urine culture reveals contamination and antibiotics were discontinued today. -BC (09/10) x 2 NG in 1 day. Monitor. -Monitor CBC. UTI: Patient was symptomatic with increased frequency and urgency of urination. Urine with trace occult blood, large leukocyte esterase, 100-200 white blood cells, moderate white blood cell clumps, few bacteria, and no increase in squamous epithelial cells. Patient was started on Ceftazidime based on prior culture. -Urine culture 09/09 indicates contamination. No indication of true UTI. Antibiotics discontinued. Enterocutaneous fistula: Dr. Hill evaluated patient on 09/01/16 and debrided preperitoneal fat extruding from incision at bedside. Optimize nutrition with PO intake and TPN. Wound care. Patient now actively draining stool and flatus from site which appears dehisced. I spoke with Dr. Crouch, general surgeon, on 09/09 who states this has been happening off and on, and when patient does not have distal bowel movements she gets constipated and stool starts draining from fistula site. Dr. Hill evaluated the patient on 09/10 and consulted the wound care physician. He has given specific wound care instructions to the RNs; to use stoma skin adhesive material to keep skin dry. Diarrhea: Chronic secondary to short gut syndrome. 1 BM over the last 24 hours recorded, but the majority of stool is exiting through the fistula. New C. difficile testing 09/09 negative. Restart Imodium and Lomotil, discussed with Dr. Washington. Pre-renal azotemia: Worsening. BUN 36-->46, pre-renal. Cr normal. Could be partially attributed to TPN, but patient had previously normal BUN at the end of July. Likely worsening due to watery stools. -Start IV NS @ 100 mL/hr. -Repeat BMP in the am. Malnutrition: Severe protein-calorie malnutrition. 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 TPN for nutritional support as patient is not candidate for feeding tube. Continue Megace to stimulate appetite and nutritional supplements Monitor BGLs bid Palliative care consulted with patient on 09/01 Pre-albumin wnl (08/29). Albumin improved to 2.7 on 09/10. Patient's weight is stable. Dietitian evaluated the patient 09/07. Okay'd for additional menu items upon patient request. Continue Ensure Enlive QD. Continue current TPN and lipids per manager hris. Patient increasingly eating more of her meals. Pain control -Ibuprofen 400 mg every 8 hours as needed for pain 15 -Ultram prn as directed -Continue Dilaudid 0.5 mg q4 hours prn breakthrough due to acute abdominal pain ; RN informs me patient hallucinates with morphine use. Deconditioning Continue PT/OT during the patient's stay in the hospital Trapeze ordered to allow better upper body mobility but has not received yet. Hypertension Cardizem CD 120 mg daily Lisinopril 40 mg daily Monitor Staph Hominis bacteremia, treated ID following, Dr. Greenfield. 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 Olvera. S/ P debridement- dry, treated Wound cultures grew Klebsiella ESBL positive and Morganella finished treatment with zerbaxa Patient may receive prosthesis, but still has scabbing over stump. Wound R great toe: Improved. Patient clipped the skin of the medial nailfold of R great toe weeks ago. There is small area of black discoloration. There is no indication of active infection. There may be delayed wound healing. Patient states she pulled off some of the skin and it actually appears better, less discoloration. Rash: Resolved. Unusual appearance and presentation, neg for herpes, biopsy inconclusive. Possibly related to zinc deficiency. Zinc could not be added to TPN per pharmacy. On oral zinc sulfate replacement. Continue zinc oxide paste to buttock Possible tinea corporis: rash to R leg: -Continue clotrimazole 1% cream bid x 2 weeks. Hypercoagulable state: Chronic and stable History of ischemic bowel and severe peripheral vascular disease. Continue Xarelto Anxiety and depression: Stable Continue Seroquel and Zoloft. Continue Remeron. COPD: Stable. Patient with good O2 sats on room air Patient has not required any breathing treatments Pulmonary nodule. Repeat CT recommended in 6 mos. Patient previously counseled about this finding and the need to follow-up. GI protection secondary for prolonged hospitalization Protonix DVT prevention Xarelto Discharge Planning PT and OT recommend rehab. Patient cannot be placed until TPN is discontinued. [facility] is out of network. Problem Qualifiers (1) HTN (hypertension): Qualified Code: I10 - Essential hypertension (2) Diarrhea: Qualified Code: R19.7 - Diarrhea, unspecified type Kathy Parmar Sep 11, 2016 10:10
[2016-09-11] MEDS: SERTRALINE HCL 100 MG TAB PO SCH (10:51)
[2016-09-11] MEDS: MAGNESIUM OXIDE 400 MG TAB PO SCH ×2 (10:51→21:56)
[2016-09-11] MEDS: DILTIAZEM-CD 180 MG CAP ER PO SCH (10:51)
[2016-09-11] MEDS: LISINOPRIL 20 MG TAB PO SCH (10:52)
[2016-09-11] MEDS: LACTOBACILLUS ACIDOPHILUS TAB PO SCH ×3 (10:52→17:17)
[2016-09-11] MEDS: PANTOPRAZOLE SOD 20 MG DELAYED RELEASE TAB PO SCH ×2 (10:52→21:56)
[2016-09-11] MEDS: ZINC SULFATE 220 MG CAP PO SCH (10:52)
[2016-09-11] MEDS: FERROUS SULFATE 325 MG (65 MG ELEMENTAL IRON) TAB PO SCH (10:52)
[2016-09-11] MEDS: MULTIVITAMIN TAB PO SCH (10:52)
[2016-09-11] MEDS: CALCIUM/VITAMIN D 250 MG/125 U TAB PO SCH ×2 (10:53→21:56)
[2016-09-11] MEDS: MEGESTROL ACETATE SUSP 400 MG/10 ML CUP PO SCH (10:53)
[2016-09-11] MEDS: RIVAROXABAN 20 MG TAB PO SCH (10:53)
[2016-09-11] MEDS: SODIUM CHLOR 0.9% 1000 ML INJ 1,000 ML IV SCH ×2 (13:22→21:59)
[2016-09-11] MEDS: HYDROmorphone HCL PF 1 MG/ML VIAL IV PRN ×3 (13:22→22:06)
[2016-09-11 20:00] VITALS: BP 140/77; PULSE 113; RESP 20; TEMP 96.8; O2SAT 98
[2016-09-11] MEDS: MIRTAZAPINE ODT 15 MG TAB PO SCH (21:56)
[2016-09-11] MEDS: GABAPENTIN 100 MG CAP PO SCH (21:56)
[2016-09-11] MEDS: CLINIMIX E 5/25 2000 mL- >42 mls/hr IV-CENTRAL SCH ×3 (23:00)
[2016-09-12] MEDS: ALPRAZolam 0.25 MG TAB PO SCH ×3 (06:40→20:11)
[2016-09-12] MEDS: DILTIAZEM-CD 180 MG CAP ER PO SCH (08:22)
[2016-09-12] MEDS: LISINOPRIL 20 MG TAB PO SCH (08:22)
[2016-09-12] MEDS: RIVAROXABAN 20 MG TAB PO SCH (08:22)
[2016-09-12] MEDS: LOPERAMIDE HCL 2 MG CAP PO PRN (08:23)
[2016-09-12] MEDS: MULTIVITAMIN TAB PO SCH (08:23)
[2016-09-12] MEDS: PANTOPRAZOLE SOD 20 MG DELAYED RELEASE TAB PO SCH ×2 (08:23→19:49)
[2016-09-12] MEDS: MAGNESIUM OXIDE 400 MG TAB PO SCH ×2 (08:23→19:48)
[2016-09-12] MEDS: CALCITRIOL 0.25 MCG CAP PO SCH (08:23)
[2016-09-12] MEDS: SERTRALINE HCL 100 MG TAB PO SCH (08:23)
[2016-09-12] MEDS: FERROUS SULFATE 325 MG (65 MG ELEMENTAL IRON) TAB PO SCH (08:23)
[2016-09-12] MEDS: MUPIROCIN 2% OINT 22 GM TUBE TOPICAL SCH ×2 (08:24→19:51)
[2016-09-12] MEDS: HYDROmorphone HCL PF 1 MG/ML VIAL IV PRN (08:24)
[2016-09-12] MEDS: COLLAGENASE OINT 30 GM TUBE TOP SCH (08:24)
[2016-09-12] MEDS: ZINC SULFATE 220 MG CAP PO SCH (08:24)
[2016-09-12] MEDS: NYSTATIN 100,000 U/GM PWD 15 GM BTL TOPICAL SCH ×2 (08:24→19:51)
[2016-09-12] MEDS: CLOTRIMAZOLE 1% CREAM 15 GM TOPICAL SCH ×2 (08:24→19:51)
[2016-09-12] MEDS: CALCIUM/VITAMIN D 250 MG/125 U TAB PO SCH ×2 (08:25→19:49)
[2016-09-12] MEDS: LACTOBACILLUS ACIDOPHILUS TAB PO SCH ×3 (08:25→18:20)
[2016-09-12] MEDS: MEGESTROL ACETATE SUSP 400 MG/10 ML CUP PO SCH (08:25)
[2016-09-12] MEDS: SODIUM CHLORIDE 0.9% FLUSH 5 ML FLUSH IV FLUSH SCH ×2 (08:25→19:48)
[2016-09-12] MEDS: SODIUM CHLOR 0.9% 1000 ML INJ 1,000 ML IV SCH ×2 (08:26→18:21)
[2016-09-12 09:53] LABS: AUTOMATED NEUTROPHIL # 4.7 TH/MM3 (1.8-7.7); BASOPHIL # 0.1 TH/MM3 (0-0.2); BASOPHIL % 0.7 % (0.0-2.0); EOSINOPHIL # 0.3 TH/MM3 (0-0.4); EOSINOPHIL % 3.7 % (0.0-4.0); HEMATOCRIT 28.9 % (35.0-46.0); LYMPH % 35.2 % (9.0-44.0); LYMPHOCYTE # 3.3 TH/MM3 (1.0-4.8); MEAN CELL VOLUME 92.6 FL (80.0-100.0); MEAN CORPUSCULAR HEMOGLOBIN 30.4 PG (27.0-34.0); MEAN CORPUSCULAR HGB CONC 32.8 % (32.0-36.0); MONO % 10.3 % (0.0-8.0); NEUT % 50.1 % (16.0-70.0); PLATELET COUNT 370 TH/MM3 (150-450); RED BLOOD COUNT 3.13 MIL/MM3 (4.00-5.30); RED CELL DISTRIBUTION WIDTH 15.7 % (11.6-17.2); WHITE BLOOD COUNT 9.4 TH/MM3 (4.0-11.0)
[2016-09-12 09:57] LABS: HEMO FLAGS DIFF FINAL
[2016-09-12 10:04] LABS: POTASSIUM 4.4 MEQ/L (3.5-5.1)
[2016-09-12 10:07] LABS: BICARBONATE 23.2 MEQ/L (21.0-32.0)
--- NOTE | 2016-09-12 10:39 | HHI.PR ---
Subjective Remarks Patient seen and examined today. Patient low spirits today. She has the enterocutaneous fistula [again. She is now having stool coming out her opening. Reviewed surgeons documentation indicates that the patient needs to have surgery, however she is not a surgical candidate secondary to her physical condition, malnourishment, frailty. Counseled patient extensively on needing to increase her strength to improve so she could undergo surgery Objective Vitals Vital Signs Date Time Temp Pulse Resp B/P Pulse Ox O2 Delivery O2 Flow Rate FiO2 09/11/16 22:36 20 09/11/16 20:00 96.8 113 20 140/77 98 I/O 09/11/16 09/11/16 09/11/16 09/12/16 09/12/16 09/12/16 06:59 14:59 22:59 06:59 14:59 22:59 Intake Total 1002 ml 1160 ml 1420 ml 1920 ml Output Total 4 ml 1600 ml Balance 1002 ml 1156 ml -180 ml 1920 ml Intake Oral 250 ml 1160 ml 1420 ml IV Total 145 ml 1200 ml TPN/PPN 380 ml 720 ml Lipid 227 ml Output Urine Total 1600 ml Stool Total 4 ml # Voids 2 8 # Bowel Movements 1 2 4 Result Diagram: 09/12/1640 09/12/1640 Objective Remarks GENERAL: Well-developed, cachectic, in no acute distress. alert and orientated HEENT: Head is normocephalic without any lesions or masses noted. Facial features are symmetric. Eyes: Pupils equal round reactive to light. Extraocular muscles are intact. Conjunctivae were clear. Oropharyngeal: Pharynx without any erythema edema. Tongue is midline without deviation. Buccal mucosa is moist without any masses or lesions NECK: Supple without any masses. Trachea midline no deviation. No JVD, no bruits are appreciated CARDIAC: Regular rhythm, regular rate. S1/S2 are heard. No murmurs gallops or rubs. LUNGS: Clear to auscultation bilaterally. No wheeze, rhonchi or rales. No use of accessory muscles on inspiration or expiration. ABDOMEN: Soft, nontender. Nondistended. Bowel sounds heard in all 4 quadrants. No organomegaly or masses. Negative rebound, negative guarding. Patient has enterocutaneous fistula with stool drainage now. EXTREMITIES: No edema, pulses are equal bilaterally. No cyanosis or clubbing. Left lower extremity stump noted without any wounds or infection NEUROLOGY: Mood and affect appear appropriate. Cranial nerves II through XII grossly intact. Moving all extremities, speech is clear Procedures Left stump debridement by Dr. 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 Olvera, did bedside debridement of preperitoneal fat that was protruding from the fistula 09/10 Dr. Olvera, reevaluated the patient because the fistula opening back up and is now draining stool. He indicates that the fistula opens and closes at least 5 times since September. She is not a candidate for surgery due to malnutrition, short bowel syndrome and anatomic considerations, damage to the remainder small bowel and likely of the patient. Recommending conservative management of the fistula Surgeon gave specific wound care management to nursing staff to follow Sepsis, resolved Likely secondary to recurrent enterocutaneous fistula Urine culture did not indicate any infection Leukocytosis has improved Patient still tachycardic, however this appears to be her normal Malnutrition: Severe protein-calorie malnutrition, improving C diff negative. TPN for nutritional support Continue Megace to stimulate appetite and Nutritional supplements Documented continue weight loss, consult dietary for further recommendations Dietitian consulted who indicated that weight loss may be due to inaccurate ins and outs, still recommending current TPN, lipids. Encourage by mouth intake , nutritional supplements Pre-albumin is much improved at 39 Diarrhea-likely secondary to short gut syndrome, Continue Imodium, Lomotil C. difficile testing 08/23 negative Pain control Patient has not required any breakthrough pain medications in 2 days, so methadone was discontinued, patient still complaining of pain that is not covered by [place] Ibuprofen 400 mg every 8 hours as needed for pain 15 Tramadol 5 mg every 8 hours as needed for pain 610 Dilaudid IV discontinued Deconditioning Continue PT/OT during the patient's stay in the hospital Emphasized the patient the need to get out of bed multiple times throughout the day Hypertension Cardizem CD 180 mg daily, Lisinopril 40 mg daily Staph Hominis bacteremia, treated ID following, Dr. Greenfield. 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 Dr. Hill ff. S/P debridement- dry, treated Wound cultures growing Klebsiella ESBL positive and Morganella finished treatment with zerbaxa Wound right great toe No signs of acute infection or abnormality at this time Continue monitor Rash: Unusual appearance and presentation, neg for herpes, biopsy inconclusive. Possibly related to zinc deficiency. Improved - Zinc could not be added to TPN per pharmacy. on oral zinc sulfate replacement. - Continue zinc oxide paste to buttock - Zinc level still low at 57, recheck monthly, next time 09/28 Hypercoagulable state: Chronic and stable History of ischemic bowel and severe peripheral vascular disease. Continue Xarelto Anxiety and depression: Stable Continue Seroquel and Zoloft. Continue Remeron. COPD: Stable. Patient with good O2 sats on room air Patient has not required any breathing treatments Pulmonary nodule. Repeat CT recommended in 6 mos. Patient previously counseled about this finding and the need to follow-up. GI protection secondary for prolonged hospitalization Protonix DVT prevention Xarelto Discharge Planning 09/11/16 1500 CONT TO FOLLOW FOR INCREASED PO INTAKE AND WEANING TPN. THIS IS A MUST FOR PLACEMENT OR HOME SNFS WILL NOT ACCEPT TPN HALFWAY. AND HER INSURANCE WILL NOT COVER OUT PATIENT . PATIENTS GOAL IS WANT TO RETURN HOME WITH SPOUSE THIS MAY BE UNREALISTC BUT CONT TO EVALUATE DANDY NELSON LPN/Chase Maradiaga Sep 12, 2016 10:39
[2016-09-12 13:08] VITALS: BP 123/67; PULSE 95; RESP 20; TEMP 97.2; O2SAT 98
[2016-09-12] MEDS: traMADol HCL 50 MG TAB PO PRN (18:19)
[2016-09-12] MEDS: MIRTAZAPINE ODT 15 MG TAB PO SCH (19:48)
[2016-09-12] MEDS: GABAPENTIN 100 MG CAP PO SCH (19:49)
[2016-09-12 20:00] VITALS: BP 145/74; PULSE 103; RESP 19; TEMP 98.8; O2SAT 98
[2016-09-12] MEDS: CLINIMIX E 5/25 2000 mL- >42 mls/hr IV-CENTRAL SCH ×3 (20:46)
[2016-09-13] MEDS: ALPRAZolam 0.25 MG TAB PO SCH ×3 (05:46→21:07)
[2016-09-13] MEDS: SODIUM CHLOR 0.9% 1000 ML INJ 1,000 ML IV SCH (05:46)
--- NOTE | 2016-09-13 07:55 | HHI.PR ---
Subjective Remarks Patient seen and examined today. Patient seems to be in better spirits today. Denies any new complaints. Patient still having stool coming out of her fistula Objective Vitals Vital Signs Date Time Temp Pulse Resp B/P Pulse Ox O2 Delivery O2 Flow Rate FiO2 09/12/16 20:00 98.8 103 19 145/74 98 09/12/16 19:19 20 09/12/16 13:08 97.2 95 20 123/67 98 I/O 09/12/16 09/12/16 09/12/16 09/13/16 09/13/16 09/13/16 07:00 15:00 23:00 07:00 15:00 23:00 Intake Total 1420 ml 2820 ml 240 ml 1920 ml Output Total 1600 ml Balance -180 ml 2820 ml 240 ml 1920 ml Intake Oral 1420 ml 900 ml 240 ml IV Total 1200 ml 1200 ml TPN/PPN 720 ml 720 ml Output Urine Total 1600 ml # Voids 4 3 # Bowel Movements 4 4 3 Result Diagram: 09/12/1640 09/12/16939 Objective Remarks GENERAL: Well-developed, cachectic, in no acute distress. alert and orientated HEENT: Head is normocephalic without any lesions or masses noted. Facial features are symmetric. Eyes: Pupils equal round reactive to light. Extraocular muscles are intact. Conjunctivae were clear. Oropharyngeal: Pharynx without any erythema edema. Tongue is midline without deviation. Buccal mucosa is moist without any masses or lesions NECK: Supple without any masses. Trachea midline no deviation. No JVD, no bruits are appreciated CARDIAC: Regular rhythm, regular rate. S1/S2 are heard. No murmurs gallops or rubs. LUNGS: Clear to auscultation bilaterally. No wheeze, rhonchi or rales. No use of accessory muscles on inspiration or expiration. ABDOMEN: Soft, nontender. Nondistended. Bowel sounds heard in all 4 quadrants. No organomegaly or masses. Negative rebound, negative guarding. Patient has enterocutaneous fistula with crook stool drainage now. EXTREMITIES: No edema, pulses are equal bilaterally. No cyanosis or clubbing. Left lower extremity stump noted without any wounds or infection NEUROLOGY: Mood and affect appear appropriate. Cranial nerves II through XII grossly intact. Moving all extremities, speech is clear Procedures Left stump debridement by Dr. Hill on 06/15/16 Urinary Catheter: No Vascular Central Line Catheter: Yes Assessment to: Continue Date of Insertion: Jun 20, 2016 Side: Left A/P Assessment and Plan 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 Olvera, did bedside debridement of preperitoneal fat that was protruding from the fistula 09/10 Dr. Olvera, reevaluated the patient because the fistula opening back up and is now draining stool. He indicates that the fistula opens and closes at least 5 times since September. She is not a candidate for surgery due to malnutrition, short bowel syndrome and anatomic considerations, damage to the remainder small bowel and likely of the patient. Recommending conservative management of the fistula Surgeon gave specific wound care management to nursing staff to follow Sepsis, resolved Likely secondary to recurrent enterocutaneous fistula Urine culture did not indicate any infection Leukocytosis has improved Patient still tachycardic, however this appears to be her normal Malnutrition: Severe protein-calorie malnutrition, improving C diff negative. TPN for nutritional support Continue Megace to stimulate appetite and Nutritional supplements Documented continue weight loss, consult dietary for further recommendations Dietitian consulted who indicated that weight loss may be due to inaccurate ins and outs, still recommending current TPN, lipids. Encourage by mouth intake , nutritional supplements Pre-albumin is much improved at 39 Diarrhea-likely secondary to short gut syndrome, Continue Imodium, Lomotil C. difficile testing 08/23 negative Pain control Patient has not required any breakthrough pain medications in 2 days, so methadone was discontinued, patient still complaining of pain that is not covered by [place] Ibuprofen 400 mg every 8 hours as needed for pain 15 Tramadol 50 mg every 8 hours as needed for pain 610 Deconditioning Continue PT/OT during the patient's stay in the hospital Emphasized the patient the need to get out of bed multiple times throughout the day Hypertension Cardizem CD 180 mg daily, Lisinopril 40 mg daily Staph Hominis bacteremia, treated ID following, Dr. Greenfield. 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 Dr. Hill ff. S/P debridement- dry, treated Wound cultures growing Klebsiella ESBL positive and Morganella finished treatment with zerbaxa Wound right great toe No signs of acute infection or abnormality at this time Continue monitor Rash: Unusual appearance and presentation, neg for herpes, biopsy inconclusive. Possibly related to zinc deficiency. Improved - Zinc could not be added to TPN per pharmacy. on oral zinc sulfate replacement. - Continue zinc oxide paste to buttock - Zinc level still low at 57, recheck monthly, next time 09/28 Hypercoagulable state: Chronic and stable History of ischemic bowel and severe peripheral vascular disease. Continue Xarelto Anxiety and depression: Stable Continue Seroquel and Zoloft. Continue Remeron. COPD: Stable. Patient with good O2 sats on room air Patient has not required any breathing treatments Pulmonary nodule. Repeat CT recommended in 6 mos. Patient previously counseled about this finding and the need to follow-up. GI protection secondary for prolonged hospitalization Protonix DVT prevention Xarelto Discharge Planning 09/11/16 1500 CONT TO FOLLOW FOR INCREASED PO INTAKE AND WEANING TPN. 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 AND HER INSURANCE WILL NOT COVER OUT PATIENT . PATIENTS GOAL IS WANT TO RETURN HOME WITH SPOUSE THIS MAY BE UNREALISTC BUT CONT TO EVALUATE DANDY NELSON WIG COMBER/CM Chase Anne Sep 13, 2016 07:55
[2016-09-13 08:00] VITALS: BP 113/60; PULSE 74; RESP 16; TEMP 97.8; O2SAT 95
[2016-09-13] MEDS: CLOTRIMAZOLE 1% CREAM 15 GM TOPICAL SCH ×2 (09:00→19:49)
[2016-09-13] MEDS: SODIUM CHLORIDE 0.9% FLUSH 5 ML FLUSH IV FLUSH SCH ×2 (09:00→19:48)
[2016-09-13] MEDS: LACTOBACILLUS ACIDOPHILUS TAB PO SCH ×3 (09:00→17:29)
[2016-09-13] MEDS: MEGESTROL ACETATE SUSP 400 MG/10 ML CUP PO SCH (09:37)
[2016-09-13] MEDS: SERTRALINE HCL 100 MG TAB PO SCH (09:37)
[2016-09-13] MEDS: CALCITRIOL 0.25 MCG CAP PO SCH (09:38)
[2016-09-13] MEDS: RIVAROXABAN 20 MG TAB PO SCH (09:38)
[2016-09-13] MEDS: MAGNESIUM OXIDE 400 MG TAB PO SCH ×2 (09:38→19:51)
[2016-09-13] MEDS: LISINOPRIL 20 MG TAB PO SCH (09:38)
[2016-09-13] MEDS: MULTIVITAMIN TAB PO SCH (09:38)
[2016-09-13] MEDS: FERROUS SULFATE 325 MG (65 MG ELEMENTAL IRON) TAB PO SCH (09:38)
[2016-09-13] MEDS: DILTIAZEM-CD 180 MG CAP ER PO SCH (09:38)
[2016-09-13] MEDS: ZINC SULFATE 220 MG CAP PO SCH (09:39)
[2016-09-13] MEDS: PANTOPRAZOLE SOD 20 MG DELAYED RELEASE TAB PO SCH ×2 (09:39→19:50)
[2016-09-13] MEDS: CALCIUM/VITAMIN D 250 MG/125 U TAB PO SCH ×2 (09:39→19:51)
[2016-09-13] MEDS: MUPIROCIN 2% OINT 22 GM TUBE TOPICAL SCH ×2 (09:41→19:51)
[2016-09-13] MEDS: COLLAGENASE OINT 30 GM TUBE TOP SCH (09:43)
[2016-09-13] MEDS: NYSTATIN 100,000 U/GM PWD 15 GM BTL TOPICAL SCH ×2 (09:43→19:49)
[2016-09-13] MEDS: LOPERAMIDE HCL 2 MG CAP PO PRN (17:29)
[2016-09-13] MEDS: GABAPENTIN 100 MG CAP PO SCH (19:50)
[2016-09-13] MEDS: traMADol HCL 50 MG TAB PO PRN (19:50)
[2016-09-13] MEDS: DIPHENOXYLATE/ATROPINE 2.5 MG/0.025 MG TAB PO PRN (19:50)
[2016-09-13] MEDS: MIRTAZAPINE ODT 15 MG TAB PO SCH (19:51)
[2016-09-13 20:00] VITALS: BP 145/81; PULSE 105; RESP 20; TEMP 98.5; O2SAT 96
[2016-09-13] MEDS: FAT EMULSION 20% INJ 250 ML (Twice weekly over 8 hours) IV-CENTRAL SCH (20:04)
[2016-09-13] MEDS: CLINIMIX E 5/25 2000 mL- >42 mls/hr IV-CENTRAL SCH ×3 (21:07)
[2016-09-14] MEDS: ALPRAZolam 0.25 MG TAB PO SCH ×3 (05:22→22:01)
[2016-09-14 08:02] VITALS: BP 147/82; PULSE 88; RESP 16; TEMP 96.6; O2SAT 96
--- NOTE | 2016-09-14 08:30 | HHI.PR ---
Subjective Remarks Patient seen and examined today. Patient denies any new complaints. Patient states that her pain in her leg is worse whenever she sleeps at night. Is requesting that she have some medication at bedtime to help with her pain. Objective Vitals Vital Signs Date Time Temp Pulse Resp B/P Pulse Ox O2 Delivery O2 Flow Rate FiO2 09/13/16 20:00 98.5 105 20 145/81 96 I/O 09/13/16 09/13/16 09/13/16 09/14/16 09/14/16 09/14/16 07:00 15:00 23:00 07:00 15:00 23:00 Intake Total 1920 ml 2893 ml 1148 ml Output Total 280 ml 200 ml Balance 1920 ml 2613 ml 948 ml Intake Oral 720 ml 480 ml IV Total 1200 ml 1870 ml TPN/PPN 720 ml 240 ml 480 ml Lipid 63 ml 188 ml Stool Total 280 ml 200 ml # Voids 9 4 # Bowel Movements 2 Result Diagram: 09/12/1693909/12/16939 Objective Remarks GENERAL: Well-developed, cachectic, in no acute distress. alert and orientated HEENT: Head is normocephalic without any lesions or masses noted. Facial features are symmetric. Eyes: Pupils equal round reactive to light. Extraocular muscles are intact. Conjunctivae were clear. Oropharyngeal: Pharynx without any erythema edema. Tongue is midline without deviation. Buccal mucosa is moist without any masses or lesions NECK: Supple without any masses. Trachea midline no deviation. No JVD, no bruits are appreciated CARDIAC: Regular rhythm, regular rate. S1/S2 are heard. No murmurs gallops or rubs. LUNGS: Clear to auscultation bilaterally. No wheeze, rhonchi or rales. No use of accessory muscles on inspiration or expiration. ABDOMEN: Soft, nontender. Nondistended. Bowel sounds heard in all 4 quadrants. No organomegaly or masses. Negative rebound, negative guarding. Patient has enterocutaneous fistula with crook stool drainage now. EXTREMITIES: No edema, pulses are equal bilaterally. No cyanosis or clubbing. Left lower extremity stump noted without any wounds or infection NEUROLOGY: Mood and affect appear appropriate. Cranial nerves II through XII grossly intact. Moving all extremities, speech is clear Procedures Left stump debridement by Dr. 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 Olvera, did bedside debridement of preperitoneal fat that was protruding from the fistula 09/10 Dr. Olvera, reevaluated the patient because the fistula opening back up and is now draining stool. He indicates that the fistula opens and closes at least 5 times since September. She is not a candidate for surgery due to malnutrition, short bowel syndrome and anatomic considerations, damage to the remainder small bowel and likely of the patient. Recommending conservative management of the fistula Surgeon gave specific wound care management to nursing staff to follow Sepsis, resolved Likely secondary to recurrent enterocutaneous fistula Urine culture did not indicate any infection Leukocytosis has improved Patient still tachycardic, however this appears to be her normal Malnutrition: Severe protein-calorie malnutrition, improving C diff negative. TPN for nutritional support Continue Megace to stimulate appetite and Nutritional supplements Documented continue weight loss, consult dietary for further recommendations Dietitian consulted who indicated that weight loss may be due to inaccurate ins and outs, still recommending current TPN, lipids. Encourage by mouth intake , nutritional supplements Pre-albumin is much improved at 39 Diarrhea-likely secondary to short gut syndrome, Continue Imodium, Lomotil C. difficile testing 08/23 negative Pain control Patient states that she is having pain worse at night in her left stump, she indicates that medication covering completely so she can sleep Ibuprofen 400 mg every 8 hours as needed for pain 15 Tramadol 50 mg every 8 hours as needed for pain 610 Start Cymbalta 30 mg daily Deconditioning Continue PT/OT during the patient's stay in the hospital Emphasized the patient the need to get out of bed multiple times throughout the day Hypertension Cardizem CD 180 mg daily, Lisinopril 40 mg daily Staph Hominis bacteremia, treated ID following, Dr. Greenfield. 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 Dr. Sergio kuo. S/P debridement- dry, treated Wound cultures growing Klebsiella ESBL positive and Morganella finished treatment with zerbaxa Wound right great toe No signs of acute infection or abnormality at this time Continue monitor Rash: Unusual appearance and presentation, neg for herpes, biopsy inconclusive. Possibly related to zinc deficiency. Improved - Zinc could not be added to TPN per pharmacy. on oral zinc sulfate replacement. - Continue zinc oxide paste to buttock - Zinc level still low at 57, recheck monthly, next time 09/28 Hypercoagulable state: Chronic and stable History of ischemic bowel and severe peripheral vascular disease. Continue Xarelto Anxiety and depression: Stable Continue Seroquel and Zoloft. Continue Remeron. COPD: Stable. Patient with good O2 sats on room air Patient has not required any breathing treatments Pulmonary nodule. Repeat CT recommended in 6 mos. Patient previously counseled about this finding and the need to follow-up. GI protection secondary for prolonged hospitalization Protonix DVT prevention Xarelto Discharge Planning 09/11/16 1500 CONT TO FOLLOW FOR INCREASED PO INTAKE AND WEANING TPN. 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 AND HER INSURANCE WILL NOT COVER OUT PATIENT . PATIENTS GOAL IS WANT TO RETURN HOME WITH SPOUSE THIS MAY BE UNREALISTC BUT CONT TO EVALUATE DANDY NELSON LPN/Chase Maradiaga Sep 14, 2016 08:30
[2016-09-14] MEDS: MEGESTROL ACETATE SUSP 400 MG/10 ML CUP PO SCH (08:36)
[2016-09-14] MEDS: MAGNESIUM OXIDE 400 MG TAB PO SCH ×2 (08:37→20:14)
[2016-09-14] MEDS: RIVAROXABAN 20 MG TAB PO SCH (08:37)
[2016-09-14] MEDS: MULTIVITAMIN TAB PO SCH (08:37)
[2016-09-14] MEDS: PANTOPRAZOLE SOD 20 MG DELAYED RELEASE TAB PO SCH ×2 (08:38→20:12)
[2016-09-14] MEDS: LISINOPRIL 20 MG TAB PO SCH (08:39)
[2016-09-14] MEDS: FERROUS SULFATE 325 MG (65 MG ELEMENTAL IRON) TAB PO SCH (08:39)
[2016-09-14] MEDS: SERTRALINE HCL 100 MG TAB PO SCH (08:40)
[2016-09-14] MEDS: CALCIUM/VITAMIN D 250 MG/125 U TAB PO SCH ×2 (08:40→20:14)
[2016-09-14] MEDS: DILTIAZEM-CD 180 MG CAP ER PO SCH (08:40)
[2016-09-14] MEDS: ZINC SULFATE 220 MG CAP PO SCH (08:41)
[2016-09-14] MEDS: CALCITRIOL 0.25 MCG CAP PO SCH (08:41)
[2016-09-14] MEDS: LACTOBACILLUS ACIDOPHILUS TAB PO SCH ×3 (08:42→17:07)
[2016-09-14] MEDS: SODIUM CHLORIDE 0.9% FLUSH 5 ML FLUSH IV FLUSH SCH ×2 (08:42→20:16)
[2016-09-14] MEDS: COLLAGENASE OINT 30 GM TUBE TOP SCH (08:45)
[2016-09-14] MEDS: NYSTATIN 100,000 U/GM PWD 15 GM BTL TOPICAL SCH ×2 (08:45→20:47)
[2016-09-14] MEDS: CLOTRIMAZOLE 1% CREAM 15 GM TOPICAL SCH ×2 (08:46→20:47)
[2016-09-14] MEDS: MUPIROCIN 2% OINT 22 GM TUBE TOPICAL SCH ×2 (08:47→20:46)
[2016-09-14] MEDS: DULoxetine HCl DR 30 MG CAP PO SCH (13:30)
[2016-09-14 20:00] VITALS: BP 142/76; PULSE 100; RESP 18; TEMP 98.4; O2SAT 98
[2016-09-14] MEDS: MIRTAZAPINE ODT 15 MG TAB PO SCH (20:13)
[2016-09-14] MEDS: traMADol HCL 50 MG TAB PO PRN (20:15)
[2016-09-14] MEDS: GABAPENTIN 100 MG CAP PO SCH (20:15)
[2016-09-14] MEDS: CLINIMIX E 5/25 2000 mL- >42 mls/hr IV-CENTRAL SCH ×3 (20:16)
[2016-09-14] MEDS: IBUPROFEN 400 MG TAB PO PRN (22:01)
[2016-09-15] MEDS: ALPRAZolam 0.25 MG TAB PO SCH ×3 (05:41→20:49)
[2016-09-15 08:00] VITALS: BP 132/82; PULSE 93; RESP 16; TEMP 98.8; O2SAT 97
[2016-09-15] MEDS: LACTOBACILLUS ACIDOPHILUS TAB PO SCH ×3 (09:00→17:26)
[2016-09-15] MEDS: SODIUM CHLORIDE 0.9% FLUSH 5 ML FLUSH IV FLUSH SCH ×2 (09:00→20:48)
[2016-09-15] MEDS: MUPIROCIN 2% OINT 22 GM TUBE TOPICAL SCH ×2 (09:00→20:51)
[2016-09-15] MEDS: NYSTATIN 100,000 U/GM PWD 15 GM BTL TOPICAL SCH ×2 (09:00→20:52)
[2016-09-15] MEDS: COLLAGENASE OINT 30 GM TUBE TOP SCH (09:00)
[2016-09-15] MEDS: CLOTRIMAZOLE 1% CREAM 15 GM TOPICAL SCH ×2 (09:00→20:51)
[2016-09-15] MEDS: DILTIAZEM-CD 180 MG CAP ER PO SCH (10:30)
[2016-09-15] MEDS: PANTOPRAZOLE SOD 20 MG DELAYED RELEASE TAB PO SCH ×2 (10:30→20:49)
[2016-09-15] MEDS: LISINOPRIL 20 MG TAB PO SCH (10:30)
[2016-09-15] MEDS: DIPHENOXYLATE/ATROPINE 2.5 MG/0.025 MG TAB PO PRN (10:30)
[2016-09-15] MEDS: MEGESTROL ACETATE SUSP 400 MG/10 ML CUP PO SCH (10:31)
[2016-09-15] MEDS: LOPERAMIDE HCL 2 MG CAP PO PRN (10:31)
[2016-09-15] MEDS: MAGNESIUM OXIDE 400 MG TAB PO SCH ×2 (10:31→20:49)
[2016-09-15] MEDS: FERROUS SULFATE 325 MG (65 MG ELEMENTAL IRON) TAB PO SCH (10:31)
[2016-09-15] MEDS: RIVAROXABAN 20 MG TAB PO SCH (10:31)
[2016-09-15] MEDS: SERTRALINE HCL 100 MG TAB PO SCH (10:32)
[2016-09-15] MEDS: ZINC SULFATE 220 MG CAP PO SCH (10:32)
[2016-09-15] MEDS: CALCITRIOL 0.25 MCG CAP PO SCH (10:32)
[2016-09-15] MEDS: MULTIVITAMIN TAB PO SCH (10:32)
[2016-09-15] MEDS: DULoxetine HCl DR 30 MG CAP PO SCH (10:32)
[2016-09-15] MEDS: CALCIUM/VITAMIN D 250 MG/125 U TAB PO SCH ×2 (10:32→20:49)
--- NOTE | 2016-09-15 11:12 | HHI.PR ---
Subjective Remarks Patient seen and examined today. Patient denies any new complaints. No change in clinical status. Objective Vitals Vital Signs Date Time Temp Pulse Resp B/P Pulse Ox O2 Delivery O2 Flow Rate FiO2 09/15/16 08:00 98.8 93 16 132/82 97 09/14/16 20:00 98.4 100 18 142/76 98 I/O 09/14/16 09/14/16 09/14/16 09/15/16 09/15/16 09/15/16 07:00 15:00 23:00 07:00 15:00 23:00 Intake Total 1148 ml 1996 ml 535 ml Output Total 200 ml 150 ml Balance 948 ml 1846 ml 535 ml Intake Oral 480 ml 1000 ml IV Total 996 ml 535 ml TPN/PPN 480 ml Lipid 188 ml Stool Total 200 ml 150 ml # Voids 4 6 # Bowel Movements 2 2 5 Result Diagram: 09/12/1640 09/12/16 0940 Objective Remarks GENERAL: Well-developed, cachectic, in no acute distress. alert and orientated HEENT: Head is normocephalic without any lesions or masses noted. Facial features are symmetric. Eyes: Pupils equal round reactive to light. Extraocular muscles are intact. Conjunctivae were clear. Oropharyngeal: Pharynx without any erythema edema. Tongue is midline without deviation. Buccal mucosa is moist without any masses or lesions NECK: Supple without any masses. Trachea midline no deviation. No JVD, no bruits are appreciated CARDIAC: Regular rhythm, regular rate. S1/S2 are heard. No murmurs gallops or rubs. LUNGS: Clear to auscultation bilaterally. No wheeze, rhonchi or rales. No use of accessory muscles on inspiration or expiration. ABDOMEN: Soft, nontender. Nondistended. Bowel sounds heard in all 4 quadrants. No organomegaly or masses. Negative rebound, negative guarding. Patient has enterocutaneous fistula with crook stool drainage now. Bag in place EXTREMITIES: No edema, pulses are equal bilaterally. No cyanosis or clubbing. Left lower extremity stump noted without any wounds or infection NEUROLOGY: Mood and affect appear appropriate. Cranial nerves II through XII grossly intact. Moving all extremities, speech is clear Procedures Left stump debridement by Dr. 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 Olvera, did bedside debridement of preperitoneal fat that was protruding from the fistula 09/10 Dr. Olvera, reevaluated the patient because the fistula opening back up and is now draining stool. He indicates that the fistula opens and closes at least 5 times since September. She is not a candidate for surgery due to malnutrition, short bowel syndrome and anatomic considerations, damage to the remainder small bowel and likely of the patient. Recommending conservative management of the fistula Surgeon gave specific wound care management to nursing staff to follow Sepsis, resolved Likely secondary to recurrent enterocutaneous fistula Urine culture did not indicate any infection Leukocytosis has improved Patient still tachycardic, however this appears to be her normal Malnutrition: Severe protein-calorie malnutrition, improving C diff negative. TPN for nutritional support Continue Megace to stimulate appetite and Nutritional supplements Continue to monitor weight. Dietitian consulted who indicated that weight loss may be due to inaccurate ins and outs, still recommending current TPN, lipids. Encourage by mouth intake , nutritional supplements Pre-albumin is much improved at 39 Diarrhea-likely secondary to short gut syndrome, Continue Imodium, Lomotil C. difficile testing 08/23 negative Pain control Patient states that she is having pain worse at night in her left stump, patient indicating to nursing staff that she is having a deep burning pain in her left leg, pain is not controlled with pain meds, she is asking for more pain meds Ibuprofen 400 mg every 8 hours as needed for pain 15 Tramadol 50 mg every 8 hours as needed for pain 610 Cymbalta 30 mg daily Add Neurontin 100 mg TID Deconditioning Continue PT/OT during the patient's stay in the hospital Emphasized the patient the need to get out of bed multiple times throughout the day Hypertension Cardizem CD 180 mg daily, increase to 240 mg daily Lisinopril 40 mg daily Staph Hominis bacteremia, treated ID following, Dr. Greenfield. 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 Dr. Sergio kuo. S/P debridement- dry, treated Wound cultures growing Klebsiella ESBL positive and Morganella finished treatment with zerbaxa Wound right great toe No signs of acute infection or abnormality at this time Continue monitor Rash: Unusual appearance and presentation, neg for herpes, biopsy inconclusive. Possibly related to zinc deficiency. Improved - Zinc could not be added to TPN per pharmacy. on oral zinc sulfate replacement. - Continue zinc oxide paste to buttock - Zinc level still low at 57, recheck monthly, next time 09/28 Hypercoagulable state: Chronic and stable History of ischemic bowel and severe peripheral vascular disease. Continue Xarelto Anxiety and depression: Stable Continue Seroquel and Zoloft. Continue Remeron. COPD: Stable. Patient with good O2 sats on room air Patient has not required any breathing treatments Pulmonary nodule. Repeat CT recommended in 6 mos. Patient previously counseled about this finding and the need to follow-up. GI protection secondary for prolonged hospitalization Protonix DVT prevention Xarelto Discharge Planning 09/11/16 1500 CONT TO FOLLOW FOR INCREASED PO INTAKE AND WEANING TPN. THIS IS A MUST FOR PLACEMENT OR HOME SNFS WILL NOT ACCEPT TPN RN BURN. AND HER INSURANCE WILL NOT COVER OUT PATIENT . PATIENTS GOAL IS WANT TO RETURN HOME WITH SPOUSE THIS MAY BE UNREALISTC BUT CONT TO EVALUATE DANDY NELSON FAMILY LIFE EDUCATOR/CM Chase Anne Sep 15, 2016 11:11
[2016-09-15] MEDS: traMADol HCL 50 MG TAB PO PRN (14:00)
[2016-09-15] MEDS: GABAPENTIN 100 MG CAP PO SCH ×2 (17:26→20:48)
[2016-09-15 20:00] VITALS: BP 128/72; PULSE 109; RESP 15; TEMP 99; O2SAT 99
[2016-09-15 20:27] LABS: BASOPHIL # 0.1 TH/MM3 (0-0.2); BASOPHIL % 1.1 % (0.0-2.0); EOSINOPHIL # 0.3 TH/MM3 (0-0.4); EOSINOPHIL % 2.9 % (0.0-4.0); HEMATOCRIT 31.5 % (35.0-46.0); HEMO FLAGS DIFF FINAL; LYMPH % 33.8 % (9.0-44.0); LYMPHOCYTE # 3.8 TH/MM3 (1.0-4.8); MEAN CELL VOLUME 91.4 FL (80.0-100.0); MEAN CORPUSCULAR HEMOGLOBIN 29.4 PG (27.0-34.0); MEAN CORPUSCULAR HGB CONC 32.1 % (32.0-36.0); MONO % 10.1 % (0.0-8.0); NEUT % 52.1 % (16.0-70.0); PLATELET COUNT 478 TH/MM3 (150-450); RED BLOOD COUNT 3.45 MIL/MM3 (4.00-5.30); RED CELL DISTRIBUTION WIDTH 15.4 % (11.6-17.2); WHITE BLOOD COUNT 11.3 TH/MM3 (4.0-11.0)
[2016-09-15 20:33] LABS: POTASSIUM 4.3 MEQ/L (3.5-5.1)
[2016-09-15 20:36] LABS: BICARBONATE 23.1 MEQ/L (21.0-32.0)
[2016-09-15] MEDS: CLINIMIX E 5/25 2000 mL- >42 mls/hr IV-CENTRAL SCH ×3 (20:44)
[2016-09-15] MEDS: MIRTAZAPINE ODT 15 MG TAB PO SCH (20:49)
[2016-09-16] MEDS: ALPRAZolam 0.25 MG TAB PO SCH ×3 (06:13→20:41)
[2016-09-16 08:00] VITALS: BP 123/75; PULSE 92; RESP 17; TEMP 98.4; O2SAT 97
[2016-09-16] MEDS: SODIUM CHLORIDE 0.9% FLUSH 5 ML FLUSH IV FLUSH SCH ×2 (08:28→20:34)
[2016-09-16] MEDS: PANTOPRAZOLE SOD 20 MG DELAYED RELEASE TAB PO SCH ×2 (08:32→20:41)
[2016-09-16] MEDS: MEGESTROL ACETATE SUSP 400 MG/10 ML CUP PO SCH ×2 (08:32→09:00)
[2016-09-16] MEDS: ZINC SULFATE 220 MG CAP PO SCH (08:32)
[2016-09-16] MEDS: GABAPENTIN 100 MG CAP PO SCH ×4 (08:33→20:41)
[2016-09-16] MEDS: MAGNESIUM OXIDE 400 MG TAB PO SCH ×2 (08:33→20:41)
[2016-09-16] MEDS: LISINOPRIL 20 MG TAB PO SCH (08:33)
[2016-09-16] MEDS: DILTIAZEM-CD 240 MG CAP ER PO SCH (08:33)
[2016-09-16] MEDS: CALCIUM/VITAMIN D 250 MG/125 U TAB PO SCH ×2 (08:33→20:41)
[2016-09-16] MEDS: SERTRALINE HCL 100 MG TAB PO SCH (08:33)
[2016-09-16] MEDS: LACTOBACILLUS ACIDOPHILUS TAB PO SCH ×3 (08:33→17:08)
[2016-09-16] MEDS: FERROUS SULFATE 325 MG (65 MG ELEMENTAL IRON) TAB PO SCH (08:33)
[2016-09-16] MEDS: RIVAROXABAN 20 MG TAB PO SCH (08:33)
[2016-09-16] MEDS: CALCITRIOL 0.25 MCG CAP PO SCH (08:33)
[2016-09-16] MEDS: MULTIVITAMIN TAB PO SCH (08:33)
[2016-09-16] MEDS: DULoxetine HCl DR 30 MG CAP PO SCH (08:34)
[2016-09-16] MEDS: CLOTRIMAZOLE 1% CREAM 15 GM TOPICAL SCH ×2 (08:41→20:43)
[2016-09-16] MEDS: MUPIROCIN 2% OINT 22 GM TUBE TOPICAL SCH ×2 (08:41→20:44)
[2016-09-16] MEDS: NYSTATIN 100,000 U/GM PWD 15 GM BTL TOPICAL SCH ×2 (08:41→20:43)
[2016-09-16] MEDS: COLLAGENASE OINT 30 GM TUBE TOP SCH (08:42)
--- NOTE | 2016-09-16 09:39 | HHI.PR ---
Subjective Remarks Follow-up for enterocutaneous fistula, malnutrition. Patient admits to low grade fever and sweats at night and then feeling cold. She admits to less drainage from the fistula. She is having distal bowel movements and states the diarrhea is controlled. RN informs there me was report of some rust colored stool in the colostomy bag by medical planner. Objective Vitals Vital Signs Date Time Temp Pulse Resp B/P Pulse Ox O2 Delivery O2 Flow Rate FiO2 09/16/16 08:00 98.4 92 17 123/75 97 09/15/16 20:00 99.0 109 15 128/72 99 09/15/16 14:33 18 I/O 09/15/16 09/15/16 09/15/16 09/16/16 09/16/16 09/16/16 07:00 15:00 23:00 07:00 15:00 23:00 Intake Total 535 ml 2260 ml 420 ml Output Total 3 ml Balance 535 ml 2257 ml 420 ml Intake Oral 1780 ml IV Total 535 ml TPN/PPN 480 ml 420 ml Stool Total 3 ml # Voids 8 1 # Bowel Movements 0 1 Result Diagram: 09/15/16201909/15/162019 Objective Remarks GENERAL: Pleasant well-developed patient in no apparent distress. SKIN: Warm and dry. See GI. LLE stump with incisional scabbing, no erythema or dehiscence. Dry scaling skin to the right foot. Small area of black discoloration over the medial nail fold of the right great toe which is mildly improved. No erythema in this area. CARDIOVASCULAR: Regular rate and rhythm with occasional skipped beat. RESPIRATORY: Limited anterior exam. No accessory muscle use. Clear to auscultation. Breath sounds equal bilaterally. GASTROINTESTINAL: Colostomy bag in place with stool present. Abdomen soft, non- distended. Mildly tender over L abdomen which is chronic. NEUROLOGICAL: Awake and alert. Normal speech. Procedures Left stump debridement by Dr. Hill on 06/15/16 Date of Insertion: Jun 20, 2016 Side: Left A/P Problem List: (1) Sepsis ICD Code: A41.9 Status: Acute (2) UTI (urinary tract infection) ICD Code: N39.0 Status: Acute (3) Infection of amputation stump ICD Code: T87.40 Status: Resolved (4) 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 (5) Hypercoagulable state ICD Code: D68.59 Status: Chronic (6) HTN (hypertension) ICD Code: I10 Status: Chronic (7) Anxiety about health ICD Code: F41.8 Status: Chronic (8) Diarrhea ICD Code: R19.7 Status: Chronic (9) Severe protein-calorie malnutrition ICD Code: E43 Status: Acute (10) Fungal skin infection ICD Code: B36.9 Status: Resolved (11) Transient lingual papillitis ICD Code: K14.0 Status: Resolved (12) Hospital acquired PNA ICD Code: J18.9 Status: Resolved (13) Major depressive disorder, recurrent severe without psychotic features ICD Code: F33.2 Status: Chronic (14) Disseminated herpes zoster ICD Code: B02.7 Status: Resolved (15) Hypokalemia ICD Code: E87.6 Status: Resolved (16) Prerenal azotemia ICD Code: R79.89 Status: Acute Assessment and Plan Enterocutaneous fistula. Recurrent. There is no appearance of blood in colostomy bag. 09/01 Dr. Olvera, did bedside debridement of preperitoneal fat that was protruding from the fistula 09/10 Dr. Olvera, reevaluated the patient because the fistula opening back up and is now draining stool. He indicates that the fistula opens and closes at least 5 times since September. She is not a candidate for surgery due to malnutrition, short bowel syndrome and anatomic considerations, damage to the remainder small bowel and likely of the patient. Recommending conservative management of the fistula Surgeon gave specific wound care management to nursing staff to follow Sepsis, resolved Likely secondary to recurrent enterocutaneous fistula Urine culture did not indicate any infection Leukocytosis has improved Patient still tachycardic, however this appears to be her normal Pre-renal azotemia: Improved. BUN 46-->30 s/p IV fluids. Cr normal. -Oral rehydration. -Monitor renal function periodically Malnutrition: Severe protein-calorie malnutrition, improving C diff negative. TPN for nutritional support Continue Megace to stimulate appetite and Nutritional supplements Continue to monitor weight. Dietitian consulted who indicated that weight loss may be due to inaccurate ins and outs, still recommending current TPN, lipids. Encourage by mouth intake , nutritional supplements Pre-albumin is much improved at 39 Diarrhea-likely secondary to short gut syndrome, Continue Imodium, Lomotil C. difficile testing 08/23 negative Pain control Patient states that she is having pain worse at night in her left stump, patient indicating to nursing staff that she is having a deep burning pain in her left leg, pain is not controlled with pain meds, she is asking for more pain meds Ibuprofen 400 mg every 8 hours as needed for pain 15 Tramadol 50 mg every 8 hours as needed for pain 610 Cymbalta 30 mg daily Neurontin 100 mg TID Deconditioning Continue PT/OT during the patient's stay in the hospital Emphasized the patient the need to get out of bed multiple times throughout the day Hypertension Cardizem CD 240 mg daily Lisinopril 40 mg daily Staph Hominis bacteremia, treated ID following, Dr. Greenfield. 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 Dr. Sergio kuo. S/P debridement- dry, treated Wound cultures growing Klebsiella ESBL positive and Morganella finished treatment with zerbaxa Wound right great toe No signs of acute infection or abnormality at this time Continue monitor Rash: Unusual appearance and presentation, neg for herpes, biopsy inconclusive. Possibly related to zinc deficiency. Improved - Zinc could not be added to TPN per pharmacy. on oral zinc sulfate replacement. - Continue zinc oxide paste to buttock - Zinc level still low at 57, recheck monthly, next time 09/28 Possible tinea R leg: Continue Clotrimazole cream. Hypercoagulable state: Chronic and stable History of ischemic bowel and severe peripheral vascular disease. Continue Xarelto Anxiety and depression: Stable Continue Seroquel and Zoloft. Continue Remeron. COPD: Stable. Patient with good O2 sats on room air Patient has not required any breathing treatments Pulmonary nodule. Repeat CT recommended in 6 mos. Patient previously counseled about this finding and the need to follow-up. GI protection secondary for prolonged hospitalization Protonix DVT prevention Xarelto Discharge Planning PT and OT recommend rehab. Patient cannot be placed until TPN is discontinued. [facility] is out of network. Patient apparently wishes to return home with spouse when discharged. Problem Qualifiers (1) HTN (hypertension): Qualified Code: I10 - Essential hypertension (2) Diarrhea: Qualified Code: R19.7 - Diarrhea, unspecified type Kathy Parmar Sep 16, 2016 09:39 Pain control -Ibuprofen 400 mg every 8 hours as needed for pain 15 -Ultram prn as directed -Continue Dilaudid 0.5 mg q4 hours prn breakthrough due to acute abdominal pain ; RN informs me patient hallucinates with morphine use. Deconditioning Continue PT/OT during the patient's stay in the hospital Trapeze ordered to allow better upper body mobility but has not received yet. Hypertension Cardizem CD 120 mg daily Lisinopril 40 mg daily Monitor Staph Hominis bacteremia, treated ID following, Dr. Greenfield. 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 Olvera. S/ P debridement- dry, treated Wound cultures grew Klebsiella ESBL positive and Morganella finished treatment with zerbaxa Patient may receive prosthesis, but still has scabbing over stump. Wound R great toe: Improved. Patient clipped the skin of the medial nailfold of R great toe weeks ago. There is small area of black discoloration. There is no indication of active infection. There may be delayed wound healing. Patient states she pulled off some of the skin and it actually appears better, less discoloration. Rash: Resolved. Unusual appearance and presentation, neg for herpes, biopsy inconclusive. Possibly related to zinc deficiency. Zinc could not be added to TPN per pharmacy. On oral zinc sulfate replacement. Continue zinc oxide paste to buttock Possible tinea corporis: rash to R leg: -Continue clotrimazole 1% cream bid x 2 weeks. Hypercoagulable state: Chronic and stable History of ischemic bowel and severe peripheral vascular disease. Continue Xarelto Anxiety and depression: Stable Continue Seroquel and Zoloft. Continue Remeron. COPD: Stable. Patient with good O2 sats on room air Patient has not required any breathing treatments Pulmonary nodule. Repeat CT recommended in 6 mos. Patient previously counseled about this finding and the need to follow-up. GI protection secondary for prolonged hospitalization Protonix DVT prevention Xarelto Discharge Planning PT and OT recommend rehab. Patient cannot be placed until TPN is discontinued. [facility] is out of network. Problem Qualifiers (1) HTN (hypertension): Qualified Code: I10 - Essential hypertension (2) Diarrhea: Qualified Code: R19.7 - Diarrhea, unspecified type Kathy Parmar Sep 16, 2016 09:39
[2016-09-16 20:00] VITALS: BP 107/62; PULSE 103; RESP 20; TEMP 98.9; O2SAT 96
[2016-09-16] MEDS: CLINIMIX E 5/25 2000 mL- >42 mls/hr IV-CENTRAL SCH ×3 (20:34)
[2016-09-16] MEDS: MIRTAZAPINE ODT 15 MG TAB PO SCH (20:40)
[2016-09-16] MEDS: traMADol HCL 50 MG TAB PO PRN (20:44)
[2016-09-17] MEDS: ALPRAZolam 0.25 MG TAB PO SCH ×3 (06:00→22:00)
[2016-09-17 08:00] VITALS: BP 114/64; PULSE 93; RESP 16; TEMP 97.4; O2SAT 95
[2016-09-17] MEDS: MEGESTROL ACETATE SUSP 400 MG/10 ML CUP PO SCH (08:48)
[2016-09-17] MEDS: LISINOPRIL 20 MG TAB PO SCH (08:49)
[2016-09-17] MEDS: SERTRALINE HCL 100 MG TAB PO SCH (08:49)
[2016-09-17] MEDS: DILTIAZEM-CD 240 MG CAP ER PO SCH (08:49)
[2016-09-17] MEDS: CALCIUM/VITAMIN D 250 MG/125 U TAB PO SCH ×2 (08:49→20:58)
[2016-09-17] MEDS: MULTIVITAMIN TAB PO SCH (08:49)
[2016-09-17] MEDS: MAGNESIUM OXIDE 400 MG TAB PO SCH ×2 (08:50→20:58)
[2016-09-17] MEDS: DULoxetine HCl DR 30 MG CAP PO SCH (08:50)
[2016-09-17] MEDS: ZINC SULFATE 220 MG CAP PO SCH (08:50)
[2016-09-17] MEDS: FERROUS SULFATE 325 MG (65 MG ELEMENTAL IRON) TAB PO SCH (08:50)
[2016-09-17] MEDS: LACTOBACILLUS ACIDOPHILUS TAB PO SCH ×3 (08:50→17:38)
[2016-09-17] MEDS: RIVAROXABAN 20 MG TAB PO SCH (08:50)
[2016-09-17] MEDS: PANTOPRAZOLE SOD 20 MG DELAYED RELEASE TAB PO SCH ×2 (08:50→20:58)
[2016-09-17] MEDS: CALCITRIOL 0.25 MCG CAP PO SCH (08:54)
[2016-09-17] MEDS: COLLAGENASE OINT 30 GM TUBE TOP SCH (08:57)
[2016-09-17] MEDS: MUPIROCIN 2% OINT 22 GM TUBE TOPICAL SCH ×2 (08:58→21:10)
[2016-09-17] MEDS: SODIUM CHLORIDE 0.9% FLUSH 5 ML FLUSH IV FLUSH SCH ×2 (08:59→20:57)
[2016-09-17] MEDS: SODIUM CHLORIDE 0.9% FLUSH 5 ML FLUSH IV FLUSH PRN (08:59)
[2016-09-17] MEDS: CLOTRIMAZOLE 1% CREAM 15 GM TOPICAL SCH ×2 (09:00→21:12)
[2016-09-17] MEDS: NYSTATIN 100,000 U/GM PWD 15 GM BTL TOPICAL SCH ×2 (09:00→21:11)
[2016-09-17] MEDS: GABAPENTIN 100 MG CAP PO SCH ×4 (09:00→20:58)
--- NOTE | 2016-09-17 09:48 | HHI.PR ---
Subjective Remarks Follow-up for enterocutaneous fistula. Patient admits to night sweats. Denies any shortness of breath. Diarrhea is controlled. Admits to less drainage through the fistula. Objective Vitals Vital Signs Date Time Temp Pulse Resp B/P Pulse Ox O2 Delivery O2 Flow Rate FiO2 09/17/16 08:00 97.4 93 16 114/64 95 09/16/16 21:44 18 09/16/16 20:00 98.9 103 20 107/62 96 I/O 09/16/16 09/16/16 09/16/16 09/17/16 09/17/16 09/17/16 07:00 15:00 23:00 07:00 15:00 23:00 Intake Total 420 ml 240 ml 480 ml 420 ml Output Total 50 ml Balance 420 ml 240 ml 430 ml 420 ml Intake Oral 240 ml TPN/PPN 420 ml 480 ml 420 ml Stool Total 50 ml # Voids 1 1 1 # Bowel Movements 2 Result Diagram: 09/15/16201909/15/162019 Objective Remarks GENERAL: Pleasant well-developed patient in no apparent distress. SKIN: Warm and dry. Patchy rash right lower leg, but erythematous ring is table hand in color. Dehisced abdominal incision with fistula. LLE stump with incisional scabbing, no erythema or dehiscence. Dry scaling skin to the right foot. Small area of black discoloration over the medial nail fold of the right great toe which is mildly improved. No erythema in this area. CARDIOVASCULAR: Tachycardic rate and regular rhythm. RESPIRATORY: Limited anterior exam. No accessory muscle use. Clear to auscultation. Breath sounds equal bilaterally. GASTROINTESTINAL: Normoactive bowel sounds. Colostomy bag in place with brown watery stool present. Abdomen soft, nontender, non-distended. NEUROLOGICAL: Awake and alert. Normal speech. Procedures Left stump debridement by Dr. 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 (5) Hypercoagulable state ICD Code: D68.59 Status: Chronic (6) HTN (hypertension) ICD Code: I10 Status: Chronic (7) Anxiety about health ICD Code: F41.8 Status: Chronic (8) Diarrhea ICD Code: R19.7 Status: Chronic (9) Severe protein-calorie malnutrition ICD Code: E43 Status: Acute (10) Fungal skin infection ICD Code: B36.9 Status: Resolved (11) Transient lingual papillitis ICD Code: K14.0 Status: Resolved (12) Hospital acquired PNA ICD Code: J18.9 Status: Resolved (13) Major depressive disorder, recurrent severe without psychotic features ICD Code: F33.2 Status: Chronic (14) Disseminated herpes zoster ICD Code: B02.7 Status: Resolved (15) Hypokalemia ICD Code: E87.6 Status: Resolved (16) Prerenal azotemia ICD Code: R79.89 Status: Acute Assessment and Plan Enterocutaneous fistula. Recurrent. There is no appearance of blood in colostomy bag. 09/01 Dr. Olvera, did bedside debridement of preperitoneal fat that was protruding from the fistula 09/10 Dr. Olvera, reevaluated the patient because the fistula opening back up and is now draining stool. He indicates that the fistula opens and closes at least 5 times since September. She is not a candidate for surgery due to malnutrition, short bowel syndrome and anatomic considerations, damage to the remainder small bowel and likely of the patient. Recommending conservative management of the fistula Surgeon gave specific wound care management to nursing staff to follow Sepsis, resolved Likely secondary to recurrent enterocutaneous fistula Urine culture did not indicate any infection Leukocytosis has improved Patient still tachycardic, however this appears to be her normal. Afebrile. Pre-renal azotemia: Improved. BUN 46-->30 s/p IV fluids. Cr normal. -Oral rehydration. -Monitor renal function periodically Malnutrition: Severe protein-calorie malnutrition, improving C diff negative. TPN for nutritional support Continue Megace to stimulate appetite and Nutritional supplements Continue to monitor weight. Dietitian consulted who indicated that weight loss may be due to inaccurate ins and outs, still recommending current TPN, lipids. Encourage by mouth intake , nutritional supplements Pre-albumin is much improved at 39 Diarrhea-likely secondary to short gut syndrome: controlled, only 2 BMs over the last 24 hours. Continue Imodium, Lomotil C. difficile testing 08/23 negative Pain control Patient states that she is having pain worse at night in her left stump, patient indicating to nursing staff that she is having a deep burning pain in her left leg, pain is not controlled with pain meds, asked for more pain meds Ibuprofen 400 mg every 8 hours as needed for pain 15 Tramadol 50 mg every 8 hours as needed for pain 610 Cymbalta 30 mg daily Neurontin 100 mg TID Deconditioning Continue PT/OT during the patient's stay in the hospital Patient needs to get out of bed multiple times throughout the day Hypertension Cardizem CD 240 mg daily Lisinopril 40 mg daily Staph Hominis bacteremia, treated ID following, Dr. Greenfield. 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 Dr. Sergio kuo. S/P debridement- dry, treated Wound cultures growing Klebsiella ESBL positive and Morganella finished treatment with zerbaxa Wound right great toe No signs of acute infection or abnormality at this time Continue monitor Rash: Unusual appearance and presentation, neg for herpes, biopsy inconclusive. Possibly related to zinc deficiency. Improved - Zinc could not be added to TPN per pharmacy. on oral zinc sulfate replacement. - Continue zinc oxide paste to buttock - Zinc level still low at 57, recheck monthly, next time 09/28 Possible tinea R leg: Improving. Continue Clotrimazole cream. Hypercoagulable state: Chronic and stable History of ischemic bowel and severe peripheral vascular disease. Continue Xarelto Anxiety and depression: Stable Continue Seroquel and Zoloft. Continue Remeron. COPD: Stable. Patient with good O2 sats on room air Patient has not required any breathing treatments Pulmonary nodule. Repeat CT recommended in 6 mos. Patient previously counseled about this finding and the need to follow-up. GI protection secondary for prolonged hospitalization Protonix DVT prevention Xarelto Discharge Planning PT and OT recommend rehab. Patient cannot be placed until TPN is discontinued. [facility] is out of network. Patient apparently wishes to return home with spouse when discharged. Problem Qualifiers (1) HTN (hypertension): Qualified Code: I10 - Essential hypertension (2) Diarrhea: Qualified Code: R19.7 - Diarrhea, unspecified type Kathy Parmar Sep 17, 2016 09:48
[2016-09-17] MEDS: traMADol HCL 50 MG TAB PO PRN ×2 (14:39→21:21)
[2016-09-17 20:00] VITALS: BP 118/72; PULSE 107; RESP 18; TEMP 97.9; O2SAT 94
[2016-09-17] MEDS: CLINIMIX E 5/25 2000 mL- >42 mls/hr IV-CENTRAL SCH ×3 (20:57)
[2016-09-17] MEDS: FAT EMULSION 20% INJ 250 ML (Twice weekly over 8 hours) IV-CENTRAL SCH (20:57)
[2016-09-17] MEDS: MIRTAZAPINE ODT 15 MG TAB PO SCH (20:58)
[2016-09-18] MEDS: ALPRAZolam 0.25 MG TAB PO SCH ×3 (05:08→21:34)
[2016-09-18] MEDS: traMADol HCL 50 MG TAB PO PRN ×2 (05:09→21:34)
[2016-09-18 08:00] VITALS: BP 116/71; PULSE 89; RESP 18; TEMP 96.8; O2SAT 97
[2016-09-18] MEDS: MEGESTROL ACETATE SUSP 400 MG/10 ML CUP PO SCH (08:00)
[2016-09-18] MEDS: GABAPENTIN 100 MG CAP PO SCH ×4 (08:21→21:19)
[2016-09-18] MEDS: DILTIAZEM-CD 240 MG CAP ER PO SCH (08:21)
[2016-09-18] MEDS: FERROUS SULFATE 325 MG (65 MG ELEMENTAL IRON) TAB PO SCH (08:22)
[2016-09-18] MEDS: MULTIVITAMIN TAB PO SCH (08:22)
[2016-09-18] MEDS: DULoxetine HCl DR 30 MG CAP PO SCH (08:22)
[2016-09-18] MEDS: CALCIUM/VITAMIN D 250 MG/125 U TAB PO SCH ×2 (08:22→21:19)
[2016-09-18] MEDS: MAGNESIUM OXIDE 400 MG TAB PO SCH ×2 (08:22→21:20)
[2016-09-18] MEDS: LISINOPRIL 20 MG TAB PO SCH (08:23)
[2016-09-18] MEDS: PANTOPRAZOLE SOD 20 MG DELAYED RELEASE TAB PO SCH ×2 (08:23→21:19)
[2016-09-18] MEDS: SERTRALINE HCL 100 MG TAB PO SCH (08:23)
[2016-09-18] MEDS: RIVAROXABAN 20 MG TAB PO SCH (08:24)
[2016-09-18] MEDS: CALCITRIOL 0.25 MCG CAP PO SCH (08:24)
[2016-09-18] MEDS: LACTOBACILLUS ACIDOPHILUS TAB PO SCH ×3 (08:37→17:31)
[2016-09-18] MEDS: COLLAGENASE OINT 30 GM TUBE TOP SCH (09:00)
--- NOTE | 2016-09-18 09:37 | HHI.PR ---
Subjective Remarks Follow-up for enterocutaneous fistula. Patient denies any fevers or chills. Denies further night sweats. States she had 2 BMs yesterday, and states the fistula is no longer draining. Objective Vitals Vital Signs Date Time Temp Pulse Resp B/P Pulse Ox O2 Delivery O2 Flow Rate FiO2 09/18/16 08:00 96.8 89 18 116/71 97 09/17/16 20:00 97.9 107 18 118/72 94 I/O 09/17/16 09/17/16 09/17/16 09/18/16 09/18/16 09/18/16 07:00 15:00 23:00 07:00 15:00 23:00 Intake Total 420 ml 450 ml 972 ml 907 ml Output Total 800 ml 700 ml Balance 420 ml 450 ml 172 ml 207 ml Intake Oral 450 ml 450 ml 200 ml TPN/PPN 420 ml 488 ml 486 ml Lipid 34 ml 221 ml Output Urine Total 800 ml 700 ml # Voids 1 3 3 # Bowel Movements 2 2 Result Diagram: 09/15/16201909/15/162019 Objective Remarks GENERAL: Pleasant well-developed patient in no apparent distress. SKIN: Warm and dry. Dehisced abdominal incision with fistula. CARDIOVASCULAR: Regular rate and rhythm. RESPIRATORY: No accessory muscle use. Mild crackles at R base. GASTROINTESTINAL: Normoactive bowel sounds. Abdomen non-distended. Colostomy bag in place, no stool present. NEUROLOGICAL: Awake and alert. Normal speech. Procedures Left stump debridement by Dr. 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 (5) Hypercoagulable state ICD Code: D68.59 Status: Chronic (6) HTN (hypertension) ICD Code: I10 Status: Chronic (7) Anxiety about health ICD Code: F41.8 Status: Chronic (8) Diarrhea ICD Code: R19.7 Status: Chronic (9) Severe protein-calorie malnutrition ICD Code: E43 Status: Acute (10) Fungal skin infection ICD Code: B36.9 Status: Resolved (11) Transient lingual papillitis ICD Code: K14.0 Status: Resolved (12) Hospital acquired PNA ICD Code: J18.9 Status: Resolved (13) Major depressive disorder, recurrent severe without psychotic features ICD Code: F33.2 Status: Chronic (14) Disseminated herpes zoster ICD Code: B02.7 Status: Resolved (15) Hypokalemia ICD Code: E87.6 Status: Resolved (16) Prerenal azotemia ICD Code: R79.89 Status: Acute Assessment and Plan Enterocutaneous fistula. Recurrent. There is no appearance of blood in colostomy bag. 09/01 Dr. Olvera, did bedside debridement of preperitoneal fat that was protruding from the fistula 09/10 Dr. Olvera, reevaluated the patient because the fistula opening back up and is now draining stool. He indicates that the fistula opens and closes at least 5 times since September. She is not a candidate for surgery due to malnutrition, short bowel syndrome and anatomic considerations, damage to the remainder small bowel and likely of the patient. Recommending conservative management of the fistula Surgeon gave specific wound care management to nursing staff to follow Sepsis, resolved Likely secondary to recurrent enterocutaneous fistula Urine culture did not indicate any infection Leukocytosis has improved Pre-renal azotemia: Improved. BUN 46-->30 s/p IV fluids. Cr normal. -Oral rehydration. -Monitor renal function periodically Malnutrition: Severe protein-calorie malnutrition, improving C diff negative. TPN for nutritional support Continue Megace to stimulate appetite and Nutritional supplements Continue to monitor weight. Dietitian consulted who indicated that weight loss may be due to inaccurate ins and outs, still recommending current TPN, lipids. Encourage by mouth intake , nutritional supplements. Restrictive Preparation Operator following. Pre-albumin is much improved at 39 Diarrhea-likely secondary to short gut syndrome: 4 BMs over the last 24 hours. Continue Imodium, Lomotil prn. Patient has not used either in 3 days which is good. C. difficile testing 08/23 negative Pain control Patient states that she is having pain worse at night in her left stump, patient indicating to nursing staff that she is having a deep burning pain in her left leg, pain is not controlled with pain meds, asked for more pain meds Ibuprofen 400 mg every 8 hours as needed for pain 15 Tramadol 50 mg every 8 hours as needed for pain 610 Cymbalta 30 mg daily Neurontin 100 mg TID Deconditioning Continue PT/OT during the patient's stay in the hospital Patient needs to get out of bed multiple times throughout the day Hypertension Cardizem CD 240 mg daily Lisinopril 40 mg daily Staph Hominis bacteremia, treated ID following, Dr. Greenfield. 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 Dr. Sergio kuo. S/P debridement- dry, treated Wound cultures grew Klebsiella ESBL positive and Morganella; finished treatment with zerbaxa Wound right great toe No signs of acute infection or abnormality at this time Continue monitor Rash: Unusual appearance and presentation, neg for herpes, biopsy inconclusive. Possibly related to zinc deficiency. Improved - Zinc could not be added to TPN per pharmacy. on oral zinc sulfate replacement. - Continue zinc oxide paste to buttock - Zinc level still low at 57, recheck monthly, next time 09/28 Possible tinea R leg: Improving. Continue Clotrimazole cream. Hypercoagulable state: Chronic and stable History of ischemic bowel and severe peripheral vascular disease. Continue Xarelto Anxiety and depression: Stable Continue Seroquel and Zoloft. Continue Remeron. COPD: Stable. Patient with good O2 sats on room air Patient has not required any breathing treatments Mild crackles at R base today but afebrile with O2 sat of 97%. Order IS. Pulmonary nodule. Repeat CT recommended in 6 mos. Patient previously counseled about this finding and the need to follow-up. GI protection secondary for prolonged hospitalization Protonix DVT prevention Xarelto After I initially evaluated the patient today, the nurse came and told me that the patient's right hand was tremulous after receiving her medications. I went to evaluate the patient. She states this is not new and she has had this for one year alternating between the right and left hands. I informed the patient that it does not appear emergent and she can follow up outpatient for this. Discharge Planning PT and OT recommend rehab. Patient cannot be placed until TPN is discontinued. [facility] is out of network. Patient apparently wishes to return home with spouse when discharged. Problem Qualifiers (1) HTN (hypertension): Qualified Code: I10 - Essential hypertension (2) Diarrhea: Qualified Code: R19.7 - Diarrhea, unspecified type Kathy Parmar Sep 18, 2016 09:37
[2016-09-18] MEDS: MUPIROCIN 2% OINT 22 GM TUBE TOPICAL SCH ×2 (10:08→21:24)
[2016-09-18] MEDS: CLOTRIMAZOLE 1% CREAM 15 GM TOPICAL SCH ×2 (10:08→21:24)
[2016-09-18] MEDS: NYSTATIN 100,000 U/GM PWD 15 GM BTL TOPICAL SCH ×2 (10:09→21:23)
[2016-09-18] MEDS: ZINC SULFATE 220 MG CAP PO SCH (13:33)
[2016-09-18] MEDS: SODIUM CHLORIDE 0.9% FLUSH 5 ML FLUSH IVF PRN (17:30)
[2016-09-18] MEDS: SODIUM CHLORIDE 0.9% FLUSH 5 ML FLUSH IV FLUSH SCH ×2 (17:33→21:18)
[2016-09-18 20:00] VITALS: BP 96/65; PULSE 106; RESP 18; TEMP 99.1; O2SAT 95
[2016-09-18] MEDS: CLINIMIX E 5/25 2000 mL- >42 mls/hr IV-CENTRAL SCH ×3 (21:18)
[2016-09-18] MEDS: MIRTAZAPINE ODT 15 MG TAB PO SCH (21:19)
[2016-09-19] MEDS: ALPRAZolam 0.25 MG TAB PO SCH ×3 (05:16→20:32)
[2016-09-19] MEDS: traMADol HCL 50 MG TAB PO PRN (05:17)
[2016-09-19] MEDS: MEGESTROL ACETATE SUSP 400 MG/10 ML CUP PO SCH (09:00)
[2016-09-19] MEDS: CLOTRIMAZOLE 1% CREAM 15 GM TOPICAL SCH ×2 (09:00→20:35)
[2016-09-19] MEDS: MUPIROCIN 2% OINT 22 GM TUBE TOPICAL SCH ×2 (09:00→20:35)
[2016-09-19] MEDS: MAGNESIUM OXIDE 400 MG TAB PO SCH ×2 (09:21→20:33)
[2016-09-19] MEDS: FERROUS SULFATE 325 MG (65 MG ELEMENTAL IRON) TAB PO SCH (09:21)
[2016-09-19] MEDS: CALCIUM/VITAMIN D 250 MG/125 U TAB PO SCH ×2 (09:22→20:32)
[2016-09-19] MEDS: CALCITRIOL 0.25 MCG CAP PO SCH (09:22)
[2016-09-19] MEDS: DILTIAZEM-CD 240 MG CAP ER PO SCH (09:22)
[2016-09-19] MEDS: MULTIVITAMIN TAB PO SCH (09:23)
[2016-09-19] MEDS: PANTOPRAZOLE SOD 20 MG DELAYED RELEASE TAB PO SCH ×2 (09:23→20:32)
[2016-09-19] MEDS: DULoxetine HCl DR 30 MG CAP PO SCH (09:23)
[2016-09-19] MEDS: ZINC SULFATE 220 MG CAP PO SCH (09:23)
[2016-09-19] MEDS: RIVAROXABAN 20 MG TAB PO SCH (09:24)
[2016-09-19] MEDS: SERTRALINE HCL 100 MG TAB PO SCH (09:24)
[2016-09-19] MEDS: SODIUM CHLORIDE 0.9% FLUSH 5 ML FLUSH IV FLUSH SCH ×2 (09:25→20:30)
[2016-09-19] MEDS: COLLAGENASE OINT 30 GM TUBE TOP SCH (09:26)
[2016-09-19] MEDS: NYSTATIN 100,000 U/GM PWD 15 GM BTL TOPICAL SCH ×2 (09:26→20:34)
[2016-09-19] MEDS: GABAPENTIN 100 MG CAP PO SCH ×4 (09:33→20:32)
[2016-09-19] MEDS: LISINOPRIL 20 MG TAB PO SCH (09:33)
[2016-09-19] MEDS: LACTOBACILLUS ACIDOPHILUS TAB PO SCH ×3 (09:33→18:21)
[2016-09-19 09:43] VITALS: BP 110/65; PULSE 81; RESP 18; TEMP 97; O2SAT 97
--- NOTE | 2016-09-19 10:03 | HHI.PR ---
Subjective Remarks Follow-up for enterocutaneous fistula. Patient denies any fevers or chills. Denies any cough or shortness of breath. Bowel movements are at baseline. Objective Vitals Vital Signs Date Time Temp Pulse Resp B/P Pulse Ox O2 Delivery O2 Flow Rate FiO2 09/19/16 09:43 97.0 81 18 110/65 97 09/18/16 20:00 99.1 106 18 96/65 95 I/O 09/18/16 09/18/16 09/18/16 09/19/16 09/19/16 09/19/16 07:00 15:00 23:00 07:00 15:00 23:00 Intake Total 907 ml 660 ml 1062 ml 772 ml Output Total 700 ml 125 ml 1050 ml 600 ml Balance 207 ml 535 ml 12 ml 172 ml Intake Oral 200 ml 240 ml 550 ml 300 ml IV Total 512 ml TPN/PPN 486 ml 420 ml 472 ml Lipid 221 ml Output Urine Total 700 ml 1000 ml 600 ml Drainage Total 125 ml 50 ml # Voids 3 2 3 3 # Bowel Movements 1 1 Result Diagram: 09/15/16201909/15/162019 Objective Remarks GENERAL: Pleasant well-developed patient in no apparent distress. SKIN: Warm and dry. Dehisced abdominal incision with fistula. CARDIOVASCULAR: Regular rate and rhythm. RESPIRATORY: No accessory muscle use. Crackles over RLL. GASTROINTESTINAL: Normoactive bowel sounds. Abdomen soft, non-tender, non- distended. Colostomy bag in place, little stool present. NEUROLOGICAL: Awake and alert. Normal speech. Procedures Left stump debridement by Dr. 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 (5) Hypercoagulable state ICD Code: D68.59 Status: Chronic (6) HTN (hypertension) ICD Code: I10 Status: Chronic (7) Anxiety about health ICD Code: F41.8 Status: Chronic (8) Diarrhea ICD Code: R19.7 Status: Chronic (9) Severe protein-calorie malnutrition ICD Code: E43 Status: Acute (10) Fungal skin infection ICD Code: B36.9 Status: Resolved (11) Transient lingual papillitis ICD Code: K14.0 Status: Resolved (12) Hospital acquired PNA ICD Code: J18.9 Status: Resolved (13) Major depressive disorder, recurrent severe without psychotic features ICD Code: F33.2 Status: Chronic (14) Disseminated herpes zoster ICD Code: B02.7 Status: Resolved (15) Hypokalemia ICD Code: E87.6 Status: Resolved (16) Prerenal azotemia ICD Code: R79.89 Status: Acute Assessment and Plan Enterocutaneous fistula. Recurrent. There is no appearance of blood in colostomy bag. 09/01 Dr. Olvera, did bedside debridement of preperitoneal fat that was protruding from the fistula 09/10 Dr. Olvera, reevaluated the patient because the fistula opening back up and is now draining stool. He indicates that the fistula opens and closes at least 5 times since September. She is not a candidate for surgery due to malnutrition, short bowel syndrome and anatomic considerations, damage to the remainder small bowel and likely of the patient. Recommending conservative management of the fistula Surgeon gave specific wound care management to nursing staff to follow Sepsis, resolved Likely secondary to recurrent enterocutaneous fistula Urine culture did not indicate any infection Leukocytosis has improved Pre-renal azotemia: Improved. BUN 46-->30 s/p IV fluids. Cr normal. -Oral rehydration. -Monitor renal function periodically Malnutrition: Severe protein-calorie malnutrition, improving C diff negative. TPN for nutritional support Continue Megace to stimulate appetite and Nutritional supplements Continue to monitor weight. Dietitian consulted who indicated that weight loss may be due to inaccurate ins and outs, still recommending current TPN, lipids. Encourage by mouth intake , nutritional supplements. Financial Recording Clerk following. Pre-albumin is much improved at 39 Diarrhea-likely secondary to short gut syndrome: 4 BMs over the last 24 hours. Continue Imodium, Lomotil prn. Patient has not used since 09/15. C. difficile testing 08/23 negative Pain control Ibuprofen 400 mg every 8 hours as needed for pain 15 Tramadol 50 mg every 8 hours as needed for pain 610 Cymbalta 30 mg daily Neurontin 100 mg TID Deconditioning Continue PT/OT during the patient's stay in the hospital Patient needs to get out of bed multiple times throughout the day Hypertension Cardizem CD 240 mg daily Lisinopril 40 mg daily Staph Hominis bacteremia, treated ID following, Dr. Greenfield. 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 Dr. Sergio kuo. S/P debridement- dry, treated Wound cultures grew Klebsiella ESBL positive and Morganella; finished treatment with zerbaxa Wound right great toe No signs of acute infection or abnormality at this time Continue monitor Rash: Unusual appearance and presentation, neg for herpes, biopsy inconclusive. Possibly related to zinc deficiency. Improved - Zinc could not be added to TPN per pharmacy. on oral zinc sulfate replacement. - Continue zinc oxide paste to buttock - Zinc level still low at 57, recheck monthly, next time 09/28 Possible tinea R leg: Improving. Continue Clotrimazole cream. Hypercoagulable state: Chronic and stable History of ischemic bowel and severe peripheral vascular disease. Continue Xarelto Anxiety and depression: Stable Continue Seroquel and Zoloft. Continue Remeron. COPD: Stable. Patient with good O2 sats on room air Patient has not required any breathing treatments Mild crackles at R base today but afebrile with O2 sat of 97%. Order IS. Pulmonary nodule. Repeat CT recommended in 6 mos. Patient previously counseled about this finding and the need to follow-up. GI protection secondary for prolonged hospitalization Protonix DVT prevention Xarelto Discharge Planning PT and OT recommend rehab. Patient cannot be placed until TPN is discontinued. [facility] is out of network. Patient apparently wishes to return home with spouse when discharged. Problem Qualifiers (1) HTN (hypertension): Qualified Code: I10 - Essential hypertension (2) Diarrhea: Qualified Code: R19.7 - Diarrhea, unspecified type Kathy Parmar Sep 19, 2016 10:03 Kathy Parmar Sep 19, 2016 10:03
[2016-09-19 20:00] VITALS: BP 122/85; PULSE 94; RESP 16; TEMP 98.2; O2SAT 97
[2016-09-19] MEDS: CLINIMIX E 5/25 2000 mL- >42 mls/hr IV-CENTRAL SCH ×3 (20:26)
[2016-09-19] MEDS: MIRTAZAPINE ODT 15 MG TAB PO SCH (20:32)
[2016-09-20] MEDS: ALPRAZolam 0.25 MG TAB PO SCH ×3 (05:52→21:03)
[2016-09-20] MEDS: DILTIAZEM-CD 240 MG CAP ER PO SCH (08:26)
[2016-09-20] MEDS: SERTRALINE HCL 100 MG TAB PO SCH (08:26)
[2016-09-20] MEDS: CALCIUM/VITAMIN D 250 MG/125 U TAB PO SCH ×2 (08:26→21:02)
[2016-09-20] MEDS: LACTOBACILLUS ACIDOPHILUS TAB PO SCH ×3 (08:27→17:31)
[2016-09-20] MEDS: PANTOPRAZOLE SOD 20 MG DELAYED RELEASE TAB PO SCH ×2 (08:27→21:03)
[2016-09-20] MEDS: FERROUS SULFATE 325 MG (65 MG ELEMENTAL IRON) TAB PO SCH (08:27)
[2016-09-20] MEDS: MULTIVITAMIN TAB PO SCH (08:27)
[2016-09-20] MEDS: DULoxetine HCl DR 30 MG CAP PO SCH (08:27)
[2016-09-20] MEDS: GABAPENTIN 100 MG CAP PO SCH ×4 (08:27→21:10)
[2016-09-20] MEDS: RIVAROXABAN 20 MG TAB PO SCH (08:27)
[2016-09-20] MEDS: MEGESTROL ACETATE SUSP 400 MG/10 ML CUP PO SCH (08:28)
[2016-09-20] MEDS: NYSTATIN 100,000 U/GM PWD 15 GM BTL TOPICAL SCH ×2 (08:29→21:00)
[2016-09-20] MEDS: CLOTRIMAZOLE 1% CREAM 15 GM TOPICAL SCH ×2 (08:29→21:00)
[2016-09-20] MEDS: COLLAGENASE OINT 30 GM TUBE TOP SCH (08:29)
[2016-09-20] MEDS: MUPIROCIN 2% OINT 22 GM TUBE TOPICAL SCH ×2 (08:29→21:00)
[2016-09-20] MEDS: LISINOPRIL 20 MG TAB PO SCH (08:43)
[2016-09-20] MEDS: ZINC SULFATE 220 MG CAP PO SCH (08:43)
[2016-09-20] MEDS: MAGNESIUM OXIDE 400 MG TAB PO SCH ×2 (08:43→21:03)
[2016-09-20 09:11] VITALS: BP 111/76; PULSE 97; RESP 16; TEMP 96.1; O2SAT 97
[2016-09-20] MEDS: CALCITRIOL 0.25 MCG CAP PO SCH (10:25)
--- NOTE | 2016-09-20 11:03 | HHI.PR ---
Subjective Remarks Follow-up for enterocutaneous fistula, short gut syndrome, malnutrition. No acute complaints. Patient denies any fevers or chills. Denies any cough or shortness of breath. Denies any vomiting. BMs are at baseline. Objective Vitals Vital Signs Date Time Temp Pulse Resp B/P Pulse Ox O2 Delivery O2 Flow Rate FiO2 09/20/16 09:11 96.1 97 16 111/76 97 09/19/16 20:00 98.2 94 16 122/85 97 I/O 09/19/16 09/19/16 09/19/16 09/20/16 09/20/16 09/20/16 06:59 14:59 22:59 06:59 14:59 22:59 Intake Total 772 ml 690 ml 1580 ml 620 ml Output Total 600 ml 200 ml 975 ml 425 ml Balance 172 ml 490 ml 605 ml 195 ml Intake Oral 300 ml 690 ml 1100 ml 200 ml TPN/PPN 472 ml 480 ml 420 ml Output Urine Total 600 ml 975 ml 425 ml Stool Total 200 ml # Voids 3 3 3 # Bowel Movements 1 1 1 Objective Remarks GENERAL: Pleasant well-developed patient in no apparent distress. SKIN: Warm and dry. Dehisced abdominal incision with fistula. CARDIOVASCULAR: Tachycardic rate and regular rhythm. RESPIRATORY: No accessory muscle use. CTAB. GASTROINTESTINAL: Normoactive bowel sounds. Abdomen soft, non-tender, non- distended. Colostomy bag in place, mild amount of watery stool present. NEUROLOGICAL: Awake and alert. Normal speech. Procedures Left stump debridement by Dr. 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 (5) Hypercoagulable state ICD Code: D68.59 Status: Chronic (6) HTN (hypertension) ICD Code: I10 Status: Chronic (7) Anxiety about health ICD Code: F41.8 Status: Chronic (8) Diarrhea ICD Code: R19.7 Status: Chronic (9) Severe protein-calorie malnutrition ICD Code: E43 Status: Chronic (10) Fungal skin infection ICD Code: B36.9 Status: Resolved (11) Transient lingual papillitis ICD Code: K14.0 Status: Resolved (12) Hospital acquired PNA ICD Code: J18.9 Status: Resolved (13) Major depressive disorder, recurrent severe without psychotic features ICD Code: F33.2 Status: Chronic (14) Disseminated herpes zoster ICD Code: B02.7 Status: Resolved (15) Hypokalemia ICD Code: E87.6 Status: Resolved (16) Prerenal azotemia ICD Code: R79.89 Status: Acute Assessment and Plan Enterocutaneous fistula. Recurrent. There is no appearance of blood in colostomy bag. 09/01 Dr. Olvera, did bedside debridement of preperitoneal fat that was protruding from the fistula 09/10 Dr. Olvera, reevaluated the patient because the fistula opening back up and is now draining stool. He indicates that the fistula opens and closes at least 5 times since September. She is not a candidate for surgery due to malnutrition, short bowel syndrome and anatomic considerations, damage to the remainder small bowel and likely of the patient. Recommending conservative management of the fistula Surgeon gave specific wound care management to nursing staff to follow Sepsis, resolved Likely secondary to recurrent enterocutaneous fistula Urine culture did not indicate any infection Leukocytosis has improved Pre-renal azotemia: Improved. BUN 46-->30 s/p IV fluids. Cr normal. -Oral rehydration. -Monitor renal function periodically Malnutrition: Severe protein-calorie malnutrition, improving C diff negative. TPN for nutritional support Continue Megace to stimulate appetite and Nutritional supplements Continue to monitor weight. Dietitian consulted who indicated that weight loss may be due to inaccurate ins and outs, still recommending current TPN, lipids. Encourage by mouth intake , nutritional supplements. Career Services Officer following. Pre-albumin is much improved at 39 Diarrhea-likely secondary to short gut syndrome: 2 BMs over the last 24 hours. Continue Imodium, Lomotil prn. Patient has not used either medication since . C. difficile testing 08/23 negative Pain control Ibuprofen 400 mg every 8 hours as needed for pain 15 Tramadol 50 mg every 8 hours as needed for pain 610 Cymbalta 30 mg daily Neurontin 100 mg TID Deconditioning Continue PT/OT during the patient's stay in the hospital Patient needs to get out of bed multiple times throughout the day Hypertension Cardizem CD 240 mg daily Lisinopril 40 mg daily Staph Hominis bacteremia, treated ID following, Dr. Greenfield. 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 Dr. Sergio kuo. S/P debridement- dry, treated Wound cultures grew Klebsiella ESBL positive and Morganella; finished treatment with zerbaxa Wound right great toe No signs of acute infection or abnormality at this time Continue monitor Rash: Unusual appearance and presentation, neg for herpes, biopsy inconclusive. Possibly related to zinc deficiency. Improved - Zinc could not be added to TPN per pharmacy. on oral zinc sulfate replacement. - Continue zinc oxide paste to buttock - Zinc level still low at 57, recheck monthly, next time 09/28 Possible tinea R leg: Improving. Continue Clotrimazole cream. Hypercoagulable state: Chronic and stable History of ischemic bowel and severe peripheral vascular disease. Continue Xarelto Anxiety and depression: Stable Continue Seroquel and Zoloft. Continue Remeron. COPD: Stable. Patient with good O2 sats on room air Patient has not required any breathing treatments Patient had crackles at R base which have improved. Continue IS. Pulmonary nodule. Repeat CT recommended in 6 mos. Patient previously counseled about this finding and the need to follow-up. GI protection secondary for prolonged hospitalization Protonix DVT prevention Xarelto Discharge Planning PT and OT recommend rehab. Patient cannot be placed until TPN is discontinued. [facility] is out of network. Patient apparently wishes to return home with spouse when discharged. Problem Qualifiers (1) HTN (hypertension): Qualified Code: I10 - Essential hypertension (2) Diarrhea: Qualified Code: R19.7 - Diarrhea, unspecified type Kathy Parmar Sep 20, 2016 11:03
[2016-09-20] MEDS: SODIUM CHLORIDE 0.9% FLUSH 5 ML FLUSH IV FLUSH SCH ×2 (17:32→21:02)
[2016-09-20 20:00] VITALS: BP 101/62; PULSE 113; RESP 19; TEMP 98.8; O2SAT 95
[2016-09-20] MEDS: CLINIMIX E 5/25 2000 mL- >42 mls/hr IV-CENTRAL SCH ×3 (21:00)
[2016-09-20] MEDS: FAT EMULSION 20% INJ 250 ML (Twice weekly over 8 hours) IV-CENTRAL SCH (21:00)
[2016-09-20] MEDS: MIRTAZAPINE ODT 15 MG TAB PO SCH (21:03)
[2016-09-21] MEDS: ALPRAZolam 0.25 MG TAB PO SCH ×3 (05:05→21:36)
[2016-09-21 08:00] VITALS: BP 137/70; PULSE 105; RESP 16; TEMP 98.5; O2SAT 96
[2016-09-21] MEDS: MAGNESIUM OXIDE 400 MG TAB PO SCH ×2 (09:00→21:35)
[2016-09-21] MEDS: CALCIUM/VITAMIN D 250 MG/125 U TAB PO SCH ×2 (09:00→21:36)
[2016-09-21] MEDS: PANTOPRAZOLE SOD 20 MG DELAYED RELEASE TAB PO SCH ×2 (09:00→21:35)
[2016-09-21] MEDS: SODIUM CHLORIDE 0.9% FLUSH 5 ML FLUSH IV FLUSH SCH ×2 (09:00→21:37)
[2016-09-21] MEDS: MEGESTROL ACETATE SUSP 400 MG/10 ML CUP PO SCH (09:00)
[2016-09-21] MEDS: LISINOPRIL 20 MG TAB PO SCH (09:00)
[2016-09-21] MEDS: MUPIROCIN 2% OINT 22 GM TUBE TOPICAL SCH ×2 (09:00→21:00)
[2016-09-21] MEDS: SERTRALINE HCL 100 MG TAB PO SCH (09:00)
[2016-09-21] MEDS: DULoxetine HCl DR 30 MG CAP PO SCH (09:00)
[2016-09-21] MEDS: COLLAGENASE OINT 30 GM TUBE TOP SCH (09:00)
[2016-09-21] MEDS: FERROUS SULFATE 325 MG (65 MG ELEMENTAL IRON) TAB PO SCH (09:00)
[2016-09-21] MEDS: CALCITRIOL 0.25 MCG CAP PO SCH (09:00)
[2016-09-21] MEDS: ZINC SULFATE 220 MG CAP PO SCH (09:00)
[2016-09-21] MEDS: LACTOBACILLUS ACIDOPHILUS TAB PO SCH ×3 (09:00→16:54)
[2016-09-21] MEDS: DILTIAZEM-CD 240 MG CAP ER PO SCH (09:00)
[2016-09-21] MEDS: MULTIVITAMIN TAB PO SCH (09:00)
[2016-09-21] MEDS: RIVAROXABAN 20 MG TAB PO SCH (09:00)
[2016-09-21] MEDS: NYSTATIN 100,000 U/GM PWD 15 GM BTL TOPICAL SCH ×2 (09:00→21:00)
[2016-09-21] MEDS: GABAPENTIN 100 MG CAP PO SCH ×4 (09:00→21:35)
--- NOTE | 2016-09-21 11:04 | HHI.PR ---
Subjective Remarks Follow-up for enterocutaneous fistula. No acute complaints from overnight. No change in clinical status. The patient does ask about what is going to happen. She is informed that the goal is to get her off of TPN, but surgeon has decided not to proceed with further surgery regarding the fistula due to risks outweighing benefits, and informed she would need to follow up outpatient when discharged. Objective Vitals Vital Signs Date Time Temp Pulse Resp B/P Pulse Ox O2 Delivery O2 Flow Rate FiO2 09/21/16 08:00 98.5 105 16 137/70 96 09/20/16 20:00 98.8 113 19 101/62 95 I/O 09/20/16 09/20/16 09/20/16 09/21/16 09/21/16 09/21/16 06:59 14:59 22:59 06:59 14:59 22:59 Intake Total 620 ml 1438 ml 1200 ml 1088 ml Output Total 425 ml Balance 195 ml 1438 ml 1200 ml 1088 ml Intake Oral 200 ml 240 ml 360 ml TPN/PPN 420 ml 1438 ml 960 ml 480 ml Lipid 248 ml Output Urine Total 425 ml # Voids 7 3 # Bowel Movements 1 2 Objective Remarks GENERAL: Pleasant well-developed patient in no apparent distress. SKIN: Warm and dry. Dehisced abdominal incision with fistula. CARDIOVASCULAR: Tachycardic rate and regular rhythm. RESPIRATORY: No accessory muscle use. CTAB. GASTROINTESTINAL: Normoactive bowel sounds. Abdomen soft, non-tender, non- distended. Colostomy bag in place. NEUROLOGICAL: Awake and alert. Normal speech. Procedures Left stump debridement by Dr. 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 (5) Hypercoagulable state ICD Code: D68.59 Status: Chronic (6) HTN (hypertension) ICD Code: I10 Status: Chronic (7) Anxiety about health ICD Code: F41.8 Status: Chronic (8) Diarrhea ICD Code: R19.7 Status: Chronic (9) Severe protein-calorie malnutrition ICD Code: E43 Status: Chronic (10) Fungal skin infection ICD Code: B36.9 Status: Resolved (11) Transient lingual papillitis ICD Code: K14.0 Status: Resolved (12) Hospital acquired PNA ICD Code: J18.9 Status: Resolved (13) Major depressive disorder, recurrent severe without psychotic features ICD Code: F33.2 Status: Chronic (14) Disseminated herpes zoster ICD Code: B02.7 Status: Resolved (15) Hypokalemia ICD Code: E87.6 Status: Resolved (16) Prerenal azotemia ICD Code: R79.89 Status: Acute Assessment and Plan Enterocutaneous fistula. Recurrent. There is no appearance of blood in colostomy bag. 09/01 Dr. Olvera, did bedside debridement of preperitoneal fat that was protruding from the fistula 09/10 Dr. Olvera, reevaluated the patient because the fistula opening back up and is now draining stool. He indicates that the fistula opens and closes at least 5 times since September. She is not a candidate for surgery due to malnutrition, short bowel syndrome and anatomic considerations, damage to the remainder small bowel and likely of the patient. Recommending conservative management of the fistula Surgeon gave specific wound care management to nursing staff to follow Sepsis, resolved Likely secondary to recurrent enterocutaneous fistula Urine culture did not indicate any infection Leukocytosis has improved Pre-renal azotemia: Improved. BUN 46-->30 s/p IV fluids. Cr normal. -Oral rehydration. -Monitor renal function periodically Malnutrition: Severe protein-calorie malnutrition, improving C diff negative. TPN for nutritional support Continue Megace to stimulate appetite and Nutritional supplements Continue to monitor weight. Dietitian consulted who indicated that weight loss may be due to inaccurate ins and outs, still recommending current TPN, lipids. Encourage by mouth intake , nutritional supplements. Pneumatic Tool Operator following. Pre-albumin is much improved at 39 Diarrhea-likely secondary to short gut syndrome: Number of bowel movements decreased from prior. Continue Imodium, Lomotil prn. Patient has not used either medication since . C. difficile testing 08/23 negative Pain control Ibuprofen 400 mg every 8 hours as needed for pain 15 Tramadol 50 mg every 8 hours as needed for pain 610 Cymbalta 30 mg daily Neurontin 100 mg TID Deconditioning Continue PT/OT during the patient's stay in the hospital Patient needs to get out of bed multiple times throughout the day Hypertension Cardizem CD 240 mg daily Lisinopril 40 mg daily Staph Hominis bacteremia, treated ID following, Dr. Greenfield. 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 Dr. Sergio kuo. S/P debridement- dry, treated Wound cultures grew Klebsiella ESBL positive and Morganella; finished treatment with zerbaxa Wound right great toe No signs of acute infection or abnormality at this time Continue monitor Rash: Unusual appearance and presentation, neg for herpes, biopsy inconclusive. Possibly related to zinc deficiency. Improved - Zinc could not be added to TPN per pharmacy. on oral zinc sulfate replacement. - Continue zinc oxide paste to buttock - Zinc level still low at 57, recheck monthly, next time 09/28 Possible tinea R leg: Improving. Continue Clotrimazole cream. Hypercoagulable state: Chronic and stable History of ischemic bowel and severe peripheral vascular disease. Continue Xarelto Anxiety and depression: Stable Continue Seroquel and Zoloft. Continue Remeron. COPD: Stable. Patient with good O2 sats on room air Patient has not required any breathing treatments Patient had crackles at R base which have improved. Continue IS. Pulmonary nodule. Repeat CT recommended in 6 mos. Patient previously counseled about this finding and the need to follow-up. GI protection secondary for prolonged hospitalization Protonix DVT prevention Xarelto Discharge Planning PT and OT recommend rehab. Patient cannot be placed until TPN is discontinued. [facility] is out of network. Patient apparently wishes to return home with spouse when discharged. Problem Qualifiers (1) HTN (hypertension): Qualified Code: I10 - Essential hypertension (2) Diarrhea: Qualified Code: R19.7 - Diarrhea, unspecified type Kathy Parmar Sep 21, 2016 11:04
[2016-09-21] MEDS: LOPERAMIDE HCL 2 MG CAP PO PRN ×2 (12:43→21:35)
[2016-09-21] MEDS: DIPHENOXYLATE/ATROPINE 2.5 MG/0.025 MG TAB PO PRN (15:15)
[2016-09-21 20:00] VITALS: BP 123/64; PULSE 108; RESP 18; TEMP 98.9; O2SAT 95
[2016-09-21] MEDS: MIRTAZAPINE ODT 15 MG TAB PO SCH (21:34)
[2016-09-21] MEDS: traMADol HCL 50 MG TAB PO PRN (21:36)
[2016-09-21] MEDS: CLINIMIX E 5/25 2000 mL- >42 mls/hr IV-CENTRAL SCH ×3 (21:36)
[2016-09-21] MEDS: IBUPROFEN 400 MG TAB PO PRN (23:06)
[2016-09-22] MEDS: ALPRAZolam 0.25 MG TAB PO SCH ×3 (05:34→22:18)
[2016-09-22] MEDS: MUPIROCIN 2% OINT 22 GM TUBE TOPICAL SCH ×2 (09:00→22:21)
[2016-09-22] MEDS: MEGESTROL ACETATE SUSP 400 MG/10 ML CUP PO SCH (09:00)
[2016-09-22] MEDS: NYSTATIN 100,000 U/GM PWD 15 GM BTL TOPICAL SCH ×2 (09:00→22:21)
[2016-09-22] MEDS: COLLAGENASE OINT 30 GM TUBE TOP SCH (09:00)
[2016-09-22] MEDS: CALCITRIOL 0.25 MCG CAP PO SCH (09:00)
[2016-09-22] MEDS: SODIUM CHLORIDE 0.9% FLUSH 5 ML FLUSH IV FLUSH SCH ×2 (09:00→22:19)
[2016-09-22] MEDS: LACTOBACILLUS ACIDOPHILUS TAB PO SCH ×3 (09:00→17:19)
[2016-09-22] MEDS: MAGNESIUM OXIDE 400 MG TAB PO SCH ×2 (09:10→22:17)
[2016-09-22] MEDS: MULTIVITAMIN TAB PO SCH (09:10)
[2016-09-22] MEDS: ZINC SULFATE 220 MG CAP PO SCH (09:10)
[2016-09-22] MEDS: PANTOPRAZOLE SOD 20 MG DELAYED RELEASE TAB PO SCH ×2 (09:10→22:17)
[2016-09-22] MEDS: LISINOPRIL 20 MG TAB PO SCH (09:10)
[2016-09-22] MEDS: DILTIAZEM-CD 240 MG CAP ER PO SCH (09:10)
[2016-09-22] MEDS: CALCIUM/VITAMIN D 250 MG/125 U TAB PO SCH ×2 (09:11→22:18)
[2016-09-22] MEDS: SERTRALINE HCL 100 MG TAB PO SCH (09:11)
[2016-09-22] MEDS: GABAPENTIN 100 MG CAP PO SCH ×4 (09:11→22:18)
[2016-09-22] MEDS: RIVAROXABAN 20 MG TAB PO SCH (09:11)
[2016-09-22] MEDS: FERROUS SULFATE 325 MG (65 MG ELEMENTAL IRON) TAB PO SCH (09:11)
[2016-09-22] MEDS: DULoxetine HCl DR 30 MG CAP PO SCH (09:11)
[2016-09-22 09:56] VITALS: BP 120/70; PULSE 88; RESP 18; TEMP 98; O2SAT 98
--- NOTE | 2016-09-22 10:19 | HHI.PR ---
Subjective Remarks Follow-up for enterocutaneous fistula. No change in clinical status. I discussed with patient that the goal is to get her off of TPN, but will need to discuss with flaking roll operator. Objective Vitals Vital Signs Date Time Temp Pulse Resp B/P Pulse Ox O2 Delivery O2 Flow Rate FiO2 09/22/16 09:56 98.0 88 18 120/70 98 09/21/16 20:00 98.9 108 18 123/64 95 I/O 09/21/16 09/21/16 09/21/16 09/22/16 09/22/16 09/22/16 07:00 15:00 23:00 07:00 15:00 23:00 Intake Total 1088 ml 860 ml 1665 ml 932 ml Balance 1088 ml 860 ml 1665 ml 932 ml Intake Oral 360 ml 440 ml 460 ml TPN/PPN 480 ml 420 ml 1665 ml 472 ml Lipid 248 ml # Voids 3 4 1 3 # Bowel Movements 2 4 1 1 Objective Remarks GENERAL: Pleasant well-developed patient in no apparent distress. SKIN: Warm and dry. CARDIOVASCULAR: Normal rate and regular rhythm. RESPIRATORY: No accessory muscle use. CTAB. GASTROINTESTINAL: Abdomen soft, non-tender, non-distended. NEUROLOGICAL: Awake and alert. Normal speech. Procedures Left stump debridement by Dr. 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 (5) Hypercoagulable state ICD Code: D68.59 Status: Chronic (6) HTN (hypertension) ICD Code: I10 Status: Chronic (7) Anxiety about health ICD Code: F41.8 Status: Chronic (8) Diarrhea ICD Code: R19.7 Status: Chronic (9) Severe protein-calorie malnutrition ICD Code: E43 Status: Chronic (10) Fungal skin infection ICD Code: B36.9 Status: Resolved (11) Transient lingual papillitis ICD Code: K14.0 Status: Resolved (12) Hospital acquired PNA ICD Code: J18.9 Status: Resolved (13) Major depressive disorder, recurrent severe without psychotic features ICD Code: F33.2 Status: Chronic (14) Disseminated herpes zoster ICD Code: B02.7 Status: Resolved (15) Hypokalemia ICD Code: E87.6 Status: Resolved (16) Prerenal azotemia ICD Code: R79.89 Status: Acute Assessment and Plan Enterocutaneous fistula. Recurrent. There is no appearance of blood in colostomy bag. 09/01 Dr. Olvera, did bedside debridement of preperitoneal fat that was protruding from the fistula 09/10 Dr. Olvera, reevaluated the patient because the fistula opening back up and is now draining stool. He indicates that the fistula opens and closes at least 5 times since September. She is not a candidate for surgery due to malnutrition, short bowel syndrome and anatomic considerations, damage to the remainder small bowel and likely of the patient. Recommending conservative management of the fistula Surgeon gave specific wound care management to nursing staff to follow Sepsis, resolved Likely secondary to recurrent enterocutaneous fistula Urine culture did not indicate any infection Leukocytosis has improved Pre-renal azotemia: Improved. BUN 46-->30 s/p IV fluids. Cr normal. -Oral rehydration. -Monitor renal function periodically Malnutrition: Severe protein-calorie malnutrition, improving C diff negative. TPN for nutritional support Continue Nutritional supplements Continue to monitor weight. Dietitian consulted who indicated that weight loss may be due to inaccurate ins and outs, still recommending current TPN, lipids. Encourage by mouth intake , nutritional supplements. Car Racer following. Pre-albumin is much improved at 39 Will need to discuss with flaking roll operator when TPN might be able to be discontinued as patient is eating most of her meals. Diarrhea-likely secondary to short gut syndrome: Increased number of bowel movements yesterday. Continue Imodium, Lomotil prn. C. difficile testing 08/23 negative Pain control Ibuprofen 400 mg every 8 hours as needed for pain 15 Tramadol 50 mg every 8 hours as needed for pain 610 Cymbalta 30 mg daily Neurontin 100 mg TID Deconditioning Continue PT/OT during the patient's stay in the hospital Patient needs to get out of bed multiple times throughout the day Hypertension Cardizem CD 240 mg daily Lisinopril 40 mg daily Staph Hominis bacteremia, treated ID following, Dr. Greenfield. 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 Dr. Sergio kuo. S/P debridement- dry, treated Wound cultures grew Klebsiella ESBL positive and Morganella; finished treatment with zerbaxa Wound right great toe No signs of acute infection or abnormality at this time Continue monitor Rash: Unusual appearance and presentation, neg for herpes, biopsy inconclusive. Possibly related to zinc deficiency. Improved - Zinc could not be added to TPN per pharmacy. on oral zinc sulfate replacement. - Continue zinc oxide paste to buttock - Zinc level still low at 57, recheck monthly, next time 09/28 Possible tinea R leg: Improved. S/p Clotrimazole cream x 2 weeks. Hypercoagulable state: Chronic and stable History of ischemic bowel and severe peripheral vascular disease. Continue Xarelto Anxiety and depression: Stable Continue Seroquel and Zoloft. Continue Remeron. COPD: Stable. Patient with good O2 sats on room air Patient has not required any breathing treatments Patient had crackles at R base which have improved. Continue IS. Pulmonary nodule. Repeat CT recommended in 6 mos. Patient previously counseled about this finding and the need to follow-up. GI protection secondary for prolonged hospitalization Protonix DVT prevention Xarelto Discharge Planning PT and OT recommend rehab. Patient cannot be placed until TPN is discontinued. [facility] is out of network. Patient apparently wishes to return home with spouse when discharged. Problem Qualifiers (1) HTN (hypertension): Qualified Code: I10 - Essential hypertension (2) Diarrhea: Qualified Code: R19.7 - Diarrhea, unspecified type Kathy Parmar Sep 22, 2016 10:19
[2016-09-22 20:00] VITALS: BP 104/59; PULSE 110; RESP 20; TEMP 98.6; O2SAT 97
[2016-09-22] MEDS: MIRTAZAPINE ODT 15 MG TAB PO SCH (22:17)
[2016-09-22] MEDS: CLINIMIX E 5/25 2000 mL- >42 mls/hr IV-CENTRAL SCH ×3 (22:18)
[2016-09-23] MEDS: ALPRAZolam 0.25 MG TAB PO SCH ×3 (06:00→21:26)
[2016-09-23 08:00] VITALS: BP 105/65; PULSE 95; RESP 20; TEMP 97.2; O2SAT 97
[2016-09-23] MEDS: CALCITRIOL 0.25 MCG CAP PO SCH (08:59)
[2016-09-23] MEDS: RIVAROXABAN 20 MG TAB PO SCH (08:59)
[2016-09-23] MEDS: PANTOPRAZOLE SOD 20 MG DELAYED RELEASE TAB PO SCH ×2 (09:00→21:27)
[2016-09-23] MEDS: LACTOBACILLUS ACIDOPHILUS TAB PO SCH ×3 (09:00→17:42)
[2016-09-23] MEDS: GABAPENTIN 100 MG CAP PO SCH ×4 (09:00→21:27)
[2016-09-23] MEDS: MUPIROCIN 2% OINT 22 GM TUBE TOPICAL SCH ×2 (09:00→21:28)
[2016-09-23] MEDS: MEGESTROL ACETATE SUSP 400 MG/10 ML CUP PO SCH (09:00)
[2016-09-23] MEDS: CALCIUM/VITAMIN D 250 MG/125 U TAB PO SCH ×2 (09:00→21:47)
[2016-09-23] MEDS: COLLAGENASE OINT 30 GM TUBE TOP SCH (09:00)
[2016-09-23] MEDS: NYSTATIN 100,000 U/GM PWD 15 GM BTL TOPICAL SCH ×2 (09:00→21:28)
[2016-09-23] MEDS: SERTRALINE HCL 100 MG TAB PO SCH (09:01)
[2016-09-23] MEDS: ZINC SULFATE 220 MG CAP PO SCH (09:01)
[2016-09-23] MEDS: MAGNESIUM OXIDE 400 MG TAB PO SCH ×2 (09:01→21:27)
[2016-09-23] MEDS: LISINOPRIL 20 MG TAB PO SCH (09:01)
[2016-09-23] MEDS: FERROUS SULFATE 325 MG (65 MG ELEMENTAL IRON) TAB PO SCH (09:01)
[2016-09-23] MEDS: DILTIAZEM-CD 240 MG CAP ER PO SCH (09:01)
[2016-09-23] MEDS: DULoxetine HCl DR 30 MG CAP PO SCH (09:01)
[2016-09-23] MEDS: MULTIVITAMIN TAB PO SCH (09:01)
[2016-09-23] MEDS: SODIUM CHLORIDE 0.9% FLUSH 5 ML FLUSH IV FLUSH SCH ×2 (09:02→21:28)
--- NOTE | 2016-09-23 13:52 | HHI.PR ---
Subjective Remarks Follow-up for enterocutaneous fistula. Patient states her diarrhea is "okay". Objective Vitals Vital Signs Date Time Temp Pulse Resp B/P Pulse Ox O2 Delivery O2 Flow Rate FiO2 09/23/16 08:00 97.2 95 20 105/65 97 09/22/16 20:00 98.6 110 20 104/59 97 I/O 09/22/16 09/22/16 09/22/16 09/23/16 09/23/16 09/23/16 07:00 15:00 23:00 07:00 15:00 23:00 Intake Total 932 ml 780 ml 840 ml Output Total 825 ml Balance 932 ml 780 ml 15 ml Intake Oral 460 ml 360 ml 120 ml TPN/PPN 472 ml 420 ml 720 ml Output Urine Total 825 ml # Voids 3 3 3 # Bowel Movements 1 3 0 Objective Remarks GENERAL: Pleasant well-developed patient in no apparent distress. SKIN: Warm and dry. CARDIOVASCULAR: Normal rate and regular rhythm. RESPIRATORY: Limited exam. No accessory muscle use. CTAB. GASTROINTESTINAL: Abdomen soft, non-tender, non-distended. Colostomy bag in place, no active drainage. NEUROLOGICAL: Awake and alert. Normal speech. Procedures Left stump debridement by Dr. 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 (5) Hypercoagulable state ICD Code: D68.59 Status: Chronic (6) HTN (hypertension) ICD Code: I10 Status: Chronic (7) Anxiety about health ICD Code: F41.8 Status: Chronic (8) Diarrhea ICD Code: R19.7 Status: Chronic (9) Severe protein-calorie malnutrition ICD Code: E43 Status: Chronic (10) Fungal skin infection ICD Code: B36.9 Status: Resolved (11) Transient lingual papillitis ICD Code: K14.0 Status: Resolved (12) Hospital acquired PNA ICD Code: J18.9 Status: Resolved (13) Major depressive disorder, recurrent severe without psychotic features ICD Code: F33.2 Status: Chronic (14) Disseminated herpes zoster ICD Code: B02.7 Status: Resolved (15) Hypokalemia ICD Code: E87.6 Status: Resolved (16) Prerenal azotemia ICD Code: R79.89 Status: Acute Assessment and Plan Enterocutaneous fistula. Recurrent. There is no appearance of blood in colostomy bag. 09/01 Dr. Olvera, did bedside debridement of preperitoneal fat that was protruding from the fistula 09/10 Dr. Olvera, reevaluated the patient because the fistula opening back up and is now draining stool. He indicates that the fistula opens and closes at least 5 times since September. She is not a candidate for surgery due to malnutrition, short bowel syndrome and anatomic considerations, damage to the remainder small bowel and likely of the patient. Recommending conservative management of the fistula Surgeon gave specific wound care management to nursing staff to follow Sepsis, resolved Likely secondary to recurrent enterocutaneous fistula Urine culture did not indicate any infection Leukocytosis has improved Pre-renal azotemia: Improved. BUN 46-->30 s/p IV fluids. Cr normal. -Oral rehydration. -Recheck BMP tomorrow am. Malnutrition: Severe protein-calorie malnutrition, improving C diff negative. TPN for nutritional support Continue Nutritional supplements Continue to monitor weight. Dietitian consulted who indicated that weight loss may be due to inaccurate ins and outs, still recommending current TPN, lipids. Encourage by mouth intake , nutritional supplements. Commercial Development Manager following. Pre-albumin is much improved at 39 Will need to discuss with alumni relations officer when TPN might be able to be discontinued as patient is eating most of her meals. Diarrhea-likely secondary to short gut syndrome: Increased number of bowel movements yesterday. Continue Imodium, Lomotil prn. C. difficile testing 08/23 negative Monitor electrolytes periodically Pain control Ibuprofen 400 mg every 8 hours as needed for pain 15 Tramadol 50 mg every 8 hours as needed for pain 610 Cymbalta 30 mg daily Neurontin 100 mg TID Deconditioning Continue PT/OT during the patient's stay in the hospital Patient needs to get out of bed multiple times throughout the day Hypertension Cardizem CD 240 mg daily Lisinopril 40 mg daily Staph Hominis bacteremia, treated ID following, Dr. Greenfield. 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 Dr. Sergio kuo. S/P debridement- dry, treated Wound cultures grew Klebsiella ESBL positive and Morganella; finished treatment with zerbaxa Wound right great toe No signs of acute infection or abnormality at this time Continue monitor Rash: Unusual appearance and presentation, neg for herpes, biopsy inconclusive. Possibly related to zinc deficiency. Improved - Zinc could not be added to TPN per pharmacy. on oral zinc sulfate replacement. - Continue zinc oxide paste to buttock - Zinc level still low at 57, recheck monthly, next time 09/28 Possible tinea R leg: Improved. S/p Clotrimazole cream x 2 weeks. Hypercoagulable state: Chronic and stable History of ischemic bowel and severe peripheral vascular disease. Continue Xarelto Anxiety and depression: Stable Continue Seroquel and Zoloft. Continue Remeron. COPD: Stable. Patient with good O2 sats on room air Patient has not required any breathing treatments Patient had crackles at R base which have improved. Continue IS. Pulmonary nodule. Repeat CT recommended in 6 mos. Patient previously counseled about this finding and the need to follow-up. GI protection secondary for prolonged hospitalization Protonix DVT prevention Xarelto Discharge Planning PT and OT recommend rehab. Patient cannot be placed until TPN is discontinued. [facility] is out of network. Patient apparently wishes to return home with spouse when discharged. Problem Qualifiers (1) HTN (hypertension): Qualified Code: I10 - Essential hypertension (2) Diarrhea: Qualified Code: R19.7 - Diarrhea, unspecified type Kathy Parmar Sep 23, 2016 13:52
[2016-09-23 20:00] VITALS: BP 97/55; PULSE 94; RESP 18; TEMP 99.1; O2SAT 95
[2016-09-23] MEDS: MIRTAZAPINE ODT 15 MG TAB PO SCH (21:27)
[2016-09-23] MEDS: CLINIMIX E 5/25 2000 mL- >42 mls/hr IV-CENTRAL SCH ×3 (21:27)
[2016-09-23] MEDS: traMADol HCL 50 MG TAB PO PRN (21:48)
[2016-09-24] MEDS: ALPRAZolam 0.25 MG TAB PO SCH ×3 (06:00→21:21)
[2016-09-24 08:00] VITALS: BP 118/69; PULSE 95; RESP 20; TEMP 97; O2SAT 95
[2016-09-24 08:02] LABS: POTASSIUM 4.5 MEQ/L (3.5-5.1)
[2016-09-24 08:07] LABS: BICARBONATE 24.7 MEQ/L (21.0-32.0)
[2016-09-24] MEDS: COLLAGENASE OINT 30 GM TUBE TOP SCH (09:00)
[2016-09-24] MEDS: MEGESTROL ACETATE SUSP 400 MG/10 ML CUP PO SCH (09:00)
[2016-09-24] MEDS: MUPIROCIN 2% OINT 22 GM TUBE TOPICAL SCH ×2 (09:00→21:23)
[2016-09-24] MEDS: LACTOBACILLUS ACIDOPHILUS TAB PO SCH ×3 (09:00→18:00)
[2016-09-24] MEDS: NYSTATIN 100,000 U/GM PWD 15 GM BTL TOPICAL SCH ×2 (09:00→21:23)
[2016-09-24] MEDS: SODIUM CHLORIDE 0.9% FLUSH 5 ML FLUSH IV FLUSH SCH ×2 (09:00→21:00)
[2016-09-24] MEDS: ZINC SULFATE 220 MG CAP PO SCH (09:19)
[2016-09-24] MEDS: MAGNESIUM OXIDE 400 MG TAB PO SCH ×2 (09:19→21:22)
[2016-09-24] MEDS: CALCIUM/VITAMIN D 250 MG/125 U TAB PO SCH ×2 (09:20→21:22)
[2016-09-24] MEDS: CALCITRIOL 0.25 MCG CAP PO SCH (09:20)
[2016-09-24] MEDS: GABAPENTIN 100 MG CAP PO SCH ×3 (09:20→18:02)
[2016-09-24] MEDS: LISINOPRIL 20 MG TAB PO SCH (09:20)
[2016-09-24] MEDS: RIVAROXABAN 20 MG TAB PO SCH (09:20)
[2016-09-24] MEDS: DILTIAZEM-CD 240 MG CAP ER PO SCH (09:20)
[2016-09-24] MEDS: DULoxetine HCl DR 30 MG CAP PO SCH (09:20)
[2016-09-24] MEDS: SERTRALINE HCL 100 MG TAB PO SCH (09:21)
[2016-09-24] MEDS: MULTIVITAMIN TAB PO SCH (09:21)
[2016-09-24] MEDS: PANTOPRAZOLE SOD 20 MG DELAYED RELEASE TAB PO SCH ×2 (09:21→21:21)
[2016-09-24] MEDS: FERROUS SULFATE 325 MG (65 MG ELEMENTAL IRON) TAB PO SCH (09:21)
--- NOTE | 2016-09-24 11:02 | HHI.PR ---
Subjective Remarks Patient examined today. Patient denies any new complaints. Patient indicates that she has had decreased amount of output through the fistula. Objective Vitals Vital Signs Date Time Temp Pulse Resp B/P Pulse Ox O2 Delivery O2 Flow Rate FiO2 09/24/16 08:00 97.0 95 20 118/69 95 09/23/16 20:00 99.1 94 18 97/55 95 I/O 09/23/16 09/23/16 09/23/16 09/24/16 09/24/16 09/24/16 06:59 14:59 22:59 06:59 14:59 22:59 Intake Total 840 ml 700 ml 720 ml Output Total 825 ml 400 ml Balance 15 ml 700 ml -400 ml 720 ml Intake Oral 120 ml 700 ml TPN/PPN 720 ml 720 ml Output Urine Total 825 ml 400 ml # Voids 3 4 1 2 # Bowel Movements 0 1 Result Diagram: 09/24/16 0717 Objective Remarks GENERAL: Well-developed, cachectic, in no acute distress. alert and orientated HEENT: Head is normocephalic without any lesions or masses noted. Facial features are symmetric. Eyes: Pupils equal round reactive to light. Extraocular muscles are intact. Conjunctivae were clear. Oropharyngeal: Pharynx without any erythema edema. Tongue is midline without deviation. Buccal mucosa is moist without any masses or lesions NECK: Supple without any masses. Trachea midline no deviation. No JVD, no bruits are appreciated CARDIAC: Regular rhythm, regular rate. S1/S2 are heard. No murmurs gallops or rubs. LUNGS: Clear to auscultation bilaterally. No wheeze, rhonchi or rales. No use of accessory muscles on inspiration or expiration. ABDOMEN: Soft, nontender. Nondistended. Bowel sounds heard in all 4 quadrants. No organomegaly or masses. Negative rebound, negative guarding. Patient has enterocutaneous fistula with crook stool drainage now. Bag in place EXTREMITIES: No edema, pulses are equal bilaterally. No cyanosis or clubbing. Left lower extremity stump noted without any wounds or infection NEUROLOGY: Mood and affect appear appropriate. Cranial nerves II through XII grossly intact. Moving all extremities, speech is clear Procedures Left stump debridement by Dr. 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 Olvera, did bedside debridement of preperitoneal fat that was protruding from the fistula 09/10 Dr. Olvera, reevaluated the patient because the fistula opening back up and is now draining stool. He indicates that the fistula opens and closes at least 5 times since September. She is not a candidate for surgery due to malnutrition, short bowel syndrome and anatomic considerations, damage to the remainder small bowel and likely of the patient. Recommending conservative management of the fistula Surgeon gave specific wound care management to nursing staff to follow Sepsis, resolved Likely secondary to recurrent enterocutaneous fistula Urine culture did not indicate any infection Leukocytosis has improved Patient still tachycardic, however this appears to be her normal Prerenal azotemia Worsened since 08/27/16, could be secondary to TPN, poor by mouth intake, Patient counseled on increase of by mouth fluid intake Continue monitor renal function Malnutrition: Severe protein-calorie malnutrition, improving C diff negative. TPN for nutritional support Continue Megace to stimulate appetite and Nutritional supplements Continue to monitor weight. Dietitian consulted who indicated that weight loss may be due to inaccurate ins and outs, still recommending current TPN, lipids. Encourage by mouth intake , nutritional supplements Pre-albumin is much improved at 39 Diarrhea-likely secondary to short gut syndrome, Continue Imodium, Lomotil C. difficile testing 08/23 negative Pain control Patient not indicate any pain today. Apparently pain is controlled, with blow medication. Ibuprofen 400 mg every 8 hours as needed for pain 15 Tramadol 50 mg every 8 hours as needed for pain 610 Cymbalta 30 mg daily Neurontin 100 mg TID Deconditioning Continue PT/OT during the patient's stay in the hospital Emphasized the patient the need to get out of bed multiple times throughout the day Hypertension Cardizem CD 240 mg daily Lisinopril 40 mg daily Staph Hominis bacteremia, treated ID following, Dr. Greenfield. 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 Dr. Hill ff. S/P debridement- dry, treated Wound cultures growing Klebsiella ESBL positive and Morganella finished treatment with zerbaxa Wound right great toe No signs of acute infection or abnormality at this time Continue monitor Rash: Unusual appearance and presentation, neg for herpes, biopsy inconclusive. Possibly related to zinc deficiency. Improved - Zinc could not be added to TPN per pharmacy. on oral zinc sulfate replacement. - Continue zinc oxide paste to buttock - Zinc level still low at 57, recheck monthly, next time 09/28 Hypercoagulable state: Chronic and stable History of ischemic bowel and severe peripheral vascular disease. Continue Xarelto Anxiety and depression: Stable Continue Seroquel and Zoloft. Continue Remeron. COPD: Stable. Patient with good O2 sats on room air Patient has not required any breathing treatments Pulmonary nodule. Repeat CT recommended in 6 mos. Patient previously counseled about this finding and the need to follow-up. GI protection secondary for prolonged hospitalization Protonix DVT prevention Xarelto Discharge Planning 09/22/16 1214 CALLED AND SPOKE WITH PATIENT'S R/T TRY TO FIND WAYS TO DEFER COST OF THE TPN/LIPIDS, HE IN NO WAY SHAPE OR FORM PLANS TO ASSIST WITH THIS AND STATED HE HAS NO MONIES TO PAY FOR NOTHING. HE FEELS SHE NEEDS TO STAY RIGHT HERE UNTIL SHE IS WELL OR NO LONGER NEEDS THE TPN. I DID EXPLAIN THAT THERE IS IMPROVEMENT BUT SHE WOULD BENEFIT FROM MOVING TO NEXT LEVEL OF CARE R/T REHABILATATION. HE STATED HE CAN NOT DO WHAT HE CAN'T DO. CALL WAS ENDED. WILL CONT TO FOLLOW AND LOOK FAR ANY AVENUE TO MOVE PATIENT FORWARD. DANDY NELSON LPN/Chase Maradiaga Sep 24, 2016 11:02
[2016-09-24 20:00] VITALS: BP 120/70; PULSE 107; RESP 18; TEMP 97.4; O2SAT 97
[2016-09-24] MEDS: MIRTAZAPINE ODT 15 MG TAB PO SCH (21:21)
[2016-09-24] MEDS: FAT EMULSION 20% INJ 250 ML (Twice weekly over 8 hours) IV-CENTRAL SCH (21:22)
[2016-09-24] MEDS: CLINIMIX E 5/25 2000 mL- >42 mls/hr IV-CENTRAL SCH ×3 (21:22)
[2016-09-25] MEDS: ALPRAZolam 0.25 MG TAB PO SCH ×3 (05:39→20:46)
[2016-09-25] MEDS: CALCIUM/VITAMIN D 250 MG/125 U TAB PO SCH ×2 (08:21→20:45)
[2016-09-25] MEDS: CALCITRIOL 0.25 MCG CAP PO SCH (08:21)
[2016-09-25] MEDS: SERTRALINE HCL 100 MG TAB PO SCH (08:21)
[2016-09-25] MEDS: MULTIVITAMIN TAB PO SCH (08:21)
[2016-09-25] MEDS: ZINC SULFATE 220 MG CAP PO SCH (08:21)
[2016-09-25] MEDS: FERROUS SULFATE 325 MG (65 MG ELEMENTAL IRON) TAB PO SCH (08:21)
[2016-09-25] MEDS: MAGNESIUM OXIDE 400 MG TAB PO SCH ×2 (08:22→20:45)
[2016-09-25] MEDS: PANTOPRAZOLE SOD 20 MG DELAYED RELEASE TAB PO SCH ×2 (08:22→20:44)
[2016-09-25] MEDS: GABAPENTIN 100 MG CAP PO SCH ×3 (08:22→17:49)
[2016-09-25] MEDS: RIVAROXABAN 20 MG TAB PO SCH (08:22)
[2016-09-25] MEDS: LISINOPRIL 20 MG TAB PO SCH (08:22)
[2016-09-25] MEDS: DILTIAZEM-CD 240 MG CAP ER PO SCH (08:22)
[2016-09-25] MEDS: DULoxetine HCl DR 30 MG CAP PO SCH (08:22)
[2016-09-25 08:23] LABS: AUTOMATED NEUTROPHIL # 6.1 TH/MM3 (1.8-7.7); BASOPHIL % 0.4 % (0.0-2.0); EOSINOPHIL # 0.4 TH/MM3 (0-0.4); EOSINOPHIL % 3.5 % (0.0-4.0); HEMATOCRIT 29.5 % (35.0-46.0); HEMO FLAGS DIFF FINAL; LYMPH % 28.5 % (9.0-44.0); MEAN CELL VOLUME 91.7 FL (80.0-100.0); MEAN CORPUSCULAR HEMOGLOBIN 29.7 PG (27.0-34.0); MEAN CORPUSCULAR HGB CONC 32.4 % (32.0-36.0); MONO % 10.1 % (0.0-8.0); NEUT % 57.5 % (16.0-70.0); PLATELET COUNT 513 TH/MM3 (150-450); RED BLOOD COUNT 3.22 MIL/MM3 (4.00-5.30); RED CELL DISTRIBUTION WIDTH 15.2 % (11.6-17.2); WHITE BLOOD COUNT 10.6 TH/MM3 (4.0-11.0)
[2016-09-25] MEDS: MEGESTROL ACETATE SUSP 400 MG/10 ML CUP PO SCH (08:23)
[2016-09-25] MEDS: LACTOBACILLUS ACIDOPHILUS TAB PO SCH ×3 (08:24→17:49)
[2016-09-25 08:29] LABS: CHLORIDE 107 MEQ/L (98-107); POTASSIUM 4.4 MEQ/L (3.5-5.1); SODIUM (NA) 140 MEQ/L (136-145)
[2016-09-25] MEDS: SODIUM CHLORIDE 0.9% FLUSH 5 ML FLUSH IV FLUSH SCH ×2 (08:31→20:46)
[2016-09-25] MEDS: COLLAGENASE OINT 30 GM TUBE TOP SCH ×2 (08:31→08:33)
[2016-09-25] MEDS: MUPIROCIN 2% OINT 22 GM TUBE TOPICAL SCH ×2 (08:31→20:46)
[2016-09-25] MEDS: NYSTATIN 100,000 U/GM PWD 15 GM BTL TOPICAL SCH ×2 (08:31→20:48)
[2016-09-25 08:33] LABS: ANION GAP 9 MEQ/L (5-15); BICARBONATE 24.4 MEQ/L (21.0-32.0); BLOOD UREA NITROGEN 35 MG/DL (7-18)
[2016-09-25 08:36] LABS: ALT (GPT) 21 U/L (10-53); AST (GOT) 11 U/L (15-37); GLOMERULAR FILTRATION RATE 76 ML/MIN (>89)
[2016-09-25 08:38] LABS: TOTAL BILIRUBIN ADULT 0.2 MG/DL (0.2-1.0)
[2016-09-25 08:39] LABS: ALKALINE PHOSPHATASE 89 U/L (45-117)
--- NOTE | 2016-09-25 09:28 | HHI.PR ---
Subjective Remarks Patient seen and examined today. Patient denies any new complaints. 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 alert and orientated HEENT: Head is normocephalic without any lesions or masses noted. Facial features are symmetric. Eyes: Pupils equal round reactive to light. Extraocular muscles are intact. Conjunctivae were clear. Oropharyngeal: Pharynx without any erythema edema. Tongue is midline without deviation. Buccal mucosa is moist without any masses or lesions NECK: Supple without any masses. Trachea midline no deviation. No JVD, no bruits are appreciated CARDIAC: Regular rhythm, regular rate. S1/S2 are heard. No murmurs gallops or rubs. LUNGS: Clear to auscultation bilaterally. No wheeze, rhonchi or rales. No use of accessory muscles on inspiration or expiration. ABDOMEN: Soft, nontender. Nondistended. Bowel sounds heard in all 4 quadrants. No organomegaly or masses. Negative rebound, negative guarding. Patient has enterocutaneous fistula with crook stool drainage now. Bag in place EXTREMITIES: No edema, pulses are equal bilaterally. No cyanosis or clubbing. Left lower extremity stump noted without any wounds or infection NEUROLOGY: Mood and affect appear appropriate. Cranial nerves II through XII grossly intact. Moving all extremities, speech is clear Procedures Left stump debridement by Dr. 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 Olvera, did bedside debridement of preperitoneal fat that was protruding from the fistula 09/10 Dr. Olvera, reevaluated the patient because the fistula opening back up and is now draining stool. He indicates that the fistula opens and closes at least 5 times since September. She is not a candidate for surgery due to malnutrition, short bowel syndrome and anatomic considerations, damage to the remainder small bowel and likely of the patient. Recommending conservative management of the fistula Surgeon gave specific wound care management to nursing staff to follow Sepsis, resolved Likely secondary to recurrent enterocutaneous fistula Urine culture did not indicate any infection Leukocytosis has improved Patient still tachycardic, however this appears to be her normal Prerenal azotemia, improving Worsened since 08/27/16, could be secondary to TPN, poor by mouth intake, Patient counseled on increase of by mouth fluid intake Continue monitor renal function Malnutrition: Severe protein-calorie malnutrition, improving C diff negative. TPN for nutritional support Continue Megace to stimulate appetite and Nutritional supplements Continue to monitor weight. Dietitian consulted who indicated that weight loss may be due to inaccurate ins and outs, still recommending current TPN, lipids. Encourage by mouth intake , nutritional supplements Pre-albumin is much improved at 39 Diarrhea-likely secondary to short gut syndrome, Continue Imodium, Lomotil C. difficile testing 08/23 negative Pain control Patient not indicate any pain today. Apparently pain is controlled, with blow medication. Ibuprofen 400 mg every 8 hours as needed for pain 15 Tramadol 50 mg every 8 hours as needed for pain 610 Cymbalta 30 mg daily Neurontin 100 mg TID Deconditioning Continue PT/OT during the patient's stay in the hospital Emphasized the patient the need to get out of bed multiple times throughout the day Hypertension Cardizem CD 240 mg daily Lisinopril 40 mg daily Staph Hominis bacteremia, treated ID following, Dr. Greenfield. 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 Dr. Hill ff. S/P debridement- dry, treated Wound cultures growing Klebsiella ESBL positive and Morganella finished treatment with zerbaxa Wound right great toe No signs of acute infection or abnormality at this time Continue monitor Rash: Unusual appearance and presentation, neg for herpes, biopsy inconclusive. Possibly related to zinc deficiency. Improved - Zinc could not be added to TPN per pharmacy. on oral zinc sulfate replacement. - Continue zinc oxide paste to buttock - Zinc level still low at 57, recheck monthly, next time 09/28 Hypercoagulable state: Chronic and stable History of ischemic bowel and severe peripheral vascular disease. Continue Xarelto Anxiety and depression: Stable Continue Seroquel and Zoloft. Continue Remeron. COPD: Stable. Patient with good O2 sats on room air Patient has not required any breathing treatments Pulmonary nodule. Repeat CT recommended in 6 mos. Patient previously counseled about this finding and the need to follow-up. GI protection secondary for prolonged hospitalization Protonix DVT prevention Xarelto Discharge Planning 09/22/16 1214 CALLED AND SPOKE WITH PATIENT'S R/T TRY TO FIND WAYS TO DEFER COST OF THE TPN/LIPIDS, HE IN NO WAY SHAPE OR FORM PLANS TO ASSIST WITH THIS AND STATED HE HAS NO MONIES TO PAY FOR NOTHING. HE FEELS SHE NEEDS TO STAY RIGHT HERE UNTIL SHE IS WELL OR NO LONGER NEEDS THE TPN. I DID EXPLAIN THAT THERE IS IMPROVEMENT BUT SHE WOULD BENEFIT FROM MOVING TO NEXT LEVEL OF CARE R/T REHABILATATION. HE STATED HE CAN NOT DO WHAT HE CAN'T DO. CALL WAS ENDED. WILL CONT TO FOLLOW AND LOOK FAR ANY AVENUE TO MOVE PATIENT FORWARD. DANDY NELSON LPN/Chase Maradiaga Sep 25, 2016 09:28
[2016-09-25 09:48] VITALS: BP 112/57; PULSE 97; RESP 15; TEMP 98.4; O2SAT 97
[2016-09-25] MEDS: LOPERAMIDE HCL 2 MG CAP PO PRN (18:15)
[2016-09-25 20:00] VITALS: BP 121/63; PULSE 111; RESP 18; TEMP 98.7; O2SAT 96
[2016-09-25] MEDS: CLINIMIX E 5/25 2000 mL- >42 mls/hr IV-CENTRAL SCH ×3 (20:42)
[2016-09-25] MEDS: MIRTAZAPINE ODT 15 MG TAB PO SCH (20:45)
[2016-09-25] MEDS: traMADol HCL 50 MG TAB PO PRN (23:16)
[2016-09-26] MEDS: ALPRAZolam 0.25 MG TAB PO SCH ×2 (05:53→21:30)
[2016-09-26 08:00] VITALS: BP 121/71; PULSE 101; RESP 16; TEMP 98.3; O2SAT 96
[2016-09-26] MEDS: COLLAGENASE OINT 30 GM TUBE TOP SCH (09:00)
[2016-09-26] MEDS: SODIUM CHLORIDE 0.9% FLUSH 5 ML FLUSH IV FLUSH SCH ×2 (09:00→21:00)
[2016-09-26] MEDS: DULoxetine HCl DR 30 MG CAP PO SCH (09:35)
[2016-09-26] MEDS: CALCIUM/VITAMIN D 250 MG/125 U TAB PO SCH ×2 (09:35→21:29)
[2016-09-26] MEDS: FERROUS SULFATE 325 MG (65 MG ELEMENTAL IRON) TAB PO SCH (09:35)
[2016-09-26] MEDS: DILTIAZEM-CD 240 MG CAP ER PO SCH (09:35)
[2016-09-26] MEDS: GABAPENTIN 100 MG CAP PO SCH ×3 (09:35→17:18)
[2016-09-26] MEDS: LACTOBACILLUS ACIDOPHILUS TAB PO SCH ×3 (09:35→17:19)
[2016-09-26] MEDS: MEGESTROL ACETATE SUSP 400 MG/10 ML CUP PO SCH (09:35)
[2016-09-26] MEDS: PANTOPRAZOLE SOD 20 MG DELAYED RELEASE TAB PO SCH ×2 (09:35→21:28)
[2016-09-26] MEDS: RIVAROXABAN 20 MG TAB PO SCH (09:35)
[2016-09-26] MEDS: MULTIVITAMIN TAB PO SCH (09:35)
[2016-09-26] MEDS: CALCITRIOL 0.25 MCG CAP PO SCH (09:35)
[2016-09-26] MEDS: MAGNESIUM OXIDE 400 MG TAB PO SCH ×2 (09:35→21:30)
[2016-09-26] MEDS: LISINOPRIL 20 MG TAB PO SCH (09:35)
[2016-09-26] MEDS: ZINC SULFATE 220 MG CAP PO SCH (09:35)
--- NOTE | 2016-09-26 10:29 | HHI.PR ---
Subjective Remarks Patient seen and examined today. Patient denies any new complaints. Patient states that she she is almost a strong as a horse Objective Vitals Vital Signs Date Time Temp Pulse Resp B/P Pulse Ox O2 Delivery O2 Flow Rate FiO2 09/26/16 08:00 98.3 101 16 121/71 96 09/25/16 20:00 98.7 111 18 121/63 96 I/O 09/25/16 09/25/16 09/25/16 09/26/16 09/26/16 09/26/16 06:59 14:59 22:59 06:59 14:59 22:59 Intake Total 1210 ml 2018 ml 663 ml Output Total 700 ml Balance 510 ml 2018 ml 663 ml Intake Oral 360 ml 1320 ml TPN/PPN 600 ml 698 ml 663 ml Lipid 250 ml Output Urine Total 700 ml # Voids 5 # Bowel Movements 2 Result Diagram: 09/25/16 0810 09/25/16 0810 Objective Remarks GENERAL: Well-developed, cachectic, in no acute distress. alert and orientated HEENT: Head is normocephalic without any lesions or masses noted. Facial features are symmetric. Eyes: Pupils equal round reactive to light. Extraocular muscles are intact. Conjunctivae were clear. Oropharyngeal: Pharynx without any erythema edema. Tongue is midline without deviation. Buccal mucosa is moist without any masses or lesions NECK: Supple without any masses. Trachea midline no deviation. No JVD, no bruits are appreciated CARDIAC: Regular rhythm, regular rate. S1/S2 are heard. No murmurs gallops or rubs. LUNGS: Clear to auscultation bilaterally. No wheeze, rhonchi or rales. No use of accessory muscles on inspiration or expiration. ABDOMEN: Soft, nontender. Nondistended. Bowel sounds heard in all 4 quadrants. No organomegaly or masses. Negative rebound, negative guarding. Patient has enterocutaneous fistula with crook stool drainage now. Bag in place EXTREMITIES: No edema, pulses are equal bilaterally. No cyanosis or clubbing. Left lower extremity stump noted without any wounds or infection NEUROLOGY: Mood and affect appear appropriate. Cranial nerves II through XII grossly intact. Moving all extremities, speech is clear Procedures Left stump debridement by Dr. 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 Olvera, did bedside debridement of preperitoneal fat that was protruding from the fistula 09/10 Dr. Olvera, reevaluated the patient because the fistula opening back up and is now draining stool. He indicates that the fistula opens and closes at least 5 times since September. She is not a candidate for surgery due to malnutrition, short bowel syndrome and anatomic considerations, damage to the remainder small bowel and likely of the patient. Recommending conservative management of the fistula Surgeon gave specific wound care management to nursing staff to follow Sepsis, resolved Likely secondary to recurrent enterocutaneous fistula Urine culture did not indicate any infection Leukocytosis has improved Patient still tachycardic, however this appears to be her normal Prerenal azotemia, improving Worsened since 08/27/16, could be secondary to TPN, poor by mouth intake, Patient counseled on increase of by mouth fluid intake Continue monitor renal function Malnutrition: Severe protein-calorie malnutrition, improving C diff negative. TPN for nutritional support Continue Megace to stimulate appetite and Nutritional supplements Continue to monitor weight. Dietitian consulted who indicated that weight loss may be due to inaccurate ins and outs, still recommending current TPN, lipids. Encourage by mouth intake , nutritional supplements Pre-albumin is much improved at 39 Diarrhea-likely secondary to short gut syndrome, Continue Imodium, Lomotil C. difficile testing 08/23 negative Pain control Patient not indicate any pain today. Apparently pain is controlled, with blow medication. Ibuprofen 400 mg every 8 hours as needed for pain 15 Tramadol 50 mg every 8 hours as needed for pain 610 Cymbalta 30 mg daily Neurontin 100 mg TID Deconditioning Continue PT/OT during the patient's stay in the hospital Emphasized the patient the need to get out of bed multiple times throughout the day Hypertension Cardizem CD 240 mg daily Lisinopril 40 mg daily Staph Hominis bacteremia, treated ID following, Dr. Greenfield. 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 Dr. J ff. S/P debridement- dry, treated Wound cultures growing Klebsiella ESBL positive and Morganella finished treatment with zerbaxa Wound right great toe No signs of acute infection or abnormality at this time Continue monitor Rash: Unusual appearance and presentation, neg for herpes, biopsy inconclusive. Possibly related to zinc deficiency. Improved - Zinc could not be added to TPN per pharmacy. on oral zinc sulfate replacement. - Continue zinc oxide paste to buttock - Zinc level still low at 57, recheck monthly, Hypercoagulable state: Chronic and stable History of ischemic bowel and severe peripheral vascular disease. Continue Xarelto Anxiety and depression: Stable Continue Seroquel and Zoloft. Continue Remeron. COPD: Stable. Patient with good O2 sats on room air Patient has not required any breathing treatments Pulmonary nodule. Repeat CT recommended in 6 mos. Patient previously counseled about this finding and the need to follow-up. GI protection secondary for prolonged hospitalization Protonix DVT prevention Xarelto Discharge Planning 09/22/16 1214 CALLED AND SPOKE WITH PATIENT'S R/T TRY TO FIND WAYS TO DEFER COST OF THE TPN/LIPIDS, HE IN NO WAY SHAPE OR FORM PLANS TO ASSIST WITH THIS AND STATED HE HAS NO MONIES TO PAY FOR NOTHING. HE FEELS SHE NEEDS TO STAY RIGHT HERE UNTIL SHE IS WELL OR NO LONGER NEEDS THE TPN. I DID EXPLAIN THAT THERE IS IMPROVEMENT BUT SHE WOULD BENEFIT FROM MOVING TO NEXT LEVEL OF CARE R/T REHABILATATION. HE STATED HE CAN NOT DO WHAT HE CAN'T DO. CALL WAS ENDED. WILL CONT TO FOLLOW AND LOOK FAR ANY AVENUE TO MOVE PATIENT FORWARD. DANDY NELSON LPN/Chase Maradiaga Sep 26, 2016 10:29
[2016-09-26] MEDS: SERTRALINE HCL 100 MG TAB PO SCH (10:38)
[2016-09-26] MEDS: MUPIROCIN 2% OINT 22 GM TUBE TOPICAL SCH ×2 (10:39→21:00)
[2016-09-26] MEDS: NYSTATIN 100,000 U/GM PWD 15 GM BTL TOPICAL SCH ×2 (10:40→21:00)
[2016-09-26 20:00] VITALS: BP 117/68; PULSE 111; RESP 20; TEMP 97.5; O2SAT 97
[2016-09-26] MEDS: CLINIMIX E 5/25 2000 mL- >42 mls/hr IV-CENTRAL SCH ×3 (21:27)
[2016-09-26] MEDS: MIRTAZAPINE ODT 15 MG TAB PO SCH (21:29)
[2016-09-26] MEDS: traMADol HCL 50 MG TAB PO PRN (21:29)
[2016-09-27] MEDS: ALPRAZolam 0.25 MG TAB PO SCH ×3 (06:00→21:41)
[2016-09-27 08:00] VITALS: BP 131/75; PULSE 88; RESP 16; TEMP 97.5; O2SAT 97
[2016-09-27] MEDS: MULTIVITAMIN TAB PO SCH (08:27)
[2016-09-27] MEDS: CALCIUM/VITAMIN D 250 MG/125 U TAB PO SCH ×2 (08:28→21:42)
[2016-09-27] MEDS: CALCITRIOL 0.25 MCG CAP PO SCH (08:28)
[2016-09-27] MEDS: GABAPENTIN 100 MG CAP PO SCH ×3 (08:28→17:06)
[2016-09-27] MEDS: RIVAROXABAN 20 MG TAB PO SCH (08:28)
[2016-09-27] MEDS: DILTIAZEM-CD 240 MG CAP ER PO SCH (08:28)
[2016-09-27] MEDS: PANTOPRAZOLE SOD 20 MG DELAYED RELEASE TAB PO SCH ×2 (08:28→21:41)
[2016-09-27] MEDS: LACTOBACILLUS ACIDOPHILUS TAB PO SCH ×3 (08:28→17:07)
[2016-09-27] MEDS: DULoxetine HCl DR 30 MG CAP PO SCH (08:28)
[2016-09-27] MEDS: LISINOPRIL 20 MG TAB PO SCH (08:29)
[2016-09-27] MEDS: MEGESTROL ACETATE SUSP 400 MG/10 ML CUP PO SCH (08:29)
[2016-09-27] MEDS: SERTRALINE HCL 100 MG TAB PO SCH (08:29)
[2016-09-27] MEDS: ZINC SULFATE 220 MG CAP PO SCH (08:29)
[2016-09-27] MEDS: MAGNESIUM OXIDE 400 MG TAB PO SCH ×2 (08:29→21:42)
[2016-09-27] MEDS: FERROUS SULFATE 325 MG (65 MG ELEMENTAL IRON) TAB PO SCH (08:29)
[2016-09-27] MEDS: COLLAGENASE OINT 30 GM TUBE TOP SCH (09:00)
[2016-09-27] MEDS: MUPIROCIN 2% OINT 22 GM TUBE TOPICAL SCH ×2 (09:00→21:00)
[2016-09-27] MEDS: NYSTATIN 100,000 U/GM PWD 15 GM BTL TOPICAL SCH ×2 (10:00→21:00)
--- NOTE | 2016-09-27 10:20 | HHI.PR ---
Subjective Remarks Patient seen and examined today. Patient denies any new complaints. Patient very eager to go outside today. Objective Vitals Vital Signs Date Time Temp Pulse Resp B/P Pulse Ox O2 Delivery O2 Flow Rate FiO2 09/27/16 08:00 97.5 88 16 131/75 97 09/26/16 20:00 97.5 111 20 117/68 97 I/O 09/26/16 09/26/16 09/26/16 09/27/16 09/27/16 09/27/16 07:00 15:00 23:00 07:00 15:00 23:00 Intake Total 663 ml 240 ml 720 ml 1562 ml Output Total 250 ml 400 ml Balance 663 ml 240 ml 470 ml 1162 ml Intake Oral 240 ml 360 ml 120 ml IV Total 1442 ml TPN/PPN 663 ml 360 ml Stool Total 250 ml Drainage Total 400 ml # Voids 3 3 2 # Bowel Movements 3 4 1 Result Diagram: 09/25/16 0810 09/25/16 0810 Objective Remarks GENERAL: Well-developed, cachectic, in no acute distress. alert and orientated HEENT: Head is normocephalic without any lesions or masses noted. Facial features are symmetric. Eyes: Pupils equal round reactive to light. Extraocular muscles are intact. Conjunctivae were clear. Oropharyngeal: Pharynx without any erythema edema. Tongue is midline without deviation. Buccal mucosa is moist without any masses or lesions NECK: Supple without any masses. Trachea midline no deviation. No JVD, no bruits are appreciated CARDIAC: Regular rhythm, regular rate. S1/S2 are heard. No murmurs gallops or rubs. LUNGS: Clear to auscultation bilaterally. No wheeze, rhonchi or rales. No use of accessory muscles on inspiration or expiration. ABDOMEN: Soft, nontender. Nondistended. Bowel sounds heard in all 4 quadrants. No organomegaly or masses. Negative rebound, negative guarding. Patient has enterocutaneous fistula with crook stool drainage now. Bag in place EXTREMITIES: No edema, pulses are equal bilaterally. No cyanosis or clubbing. Left lower extremity stump noted without any wounds or infection NEUROLOGY: Mood and affect appear appropriate. Cranial nerves II through XII grossly intact. Moving all extremities, speech is clear Procedures Left stump debridement by Dr. 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 Olvera, did bedside debridement of preperitoneal fat that was protruding from the fistula 09/10 Dr. Olvera, reevaluated the patient because the fistula opening back up and is now draining stool. He indicates that the fistula opens and closes at least 5 times since September. She is not a candidate for surgery due to malnutrition, short bowel syndrome and anatomic considerations, damage to the remainder small bowel and likely of the patient. Recommending conservative management of the fistula Surgeon gave specific wound care management to nursing staff to follow Sepsis, resolved Likely secondary to recurrent enterocutaneous fistula Urine culture did not indicate any infection Leukocytosis has improved Patient still tachycardic, however this appears to be her normal Prerenal azotemia, improving Worsened since 08/27/16, could be secondary to TPN, poor by mouth intake, Patient counseled on increase of by mouth fluid intake Continue monitor renal function Malnutrition: Severe protein-calorie malnutrition, improving C diff negative. TPN for nutritional support Continue Megace to stimulate appetite and Nutritional supplements Continue to monitor weight. Dietitian consulted who indicated that weight loss may be due to inaccurate ins and outs, still recommending current TPN, lipids. Encourage by mouth intake , nutritional supplements Pre-albumin is much improved at 39 Diarrhea-likely secondary to short gut syndrome, Continue Imodium, Lomotil C. difficile testing 08/23 negative Pain control Patient not indicate any pain today. Apparently pain is controlled, with blow medication. Ibuprofen 400 mg every 8 hours as needed for pain 15 Tramadol 50 mg every 8 hours as needed for pain 610 Cymbalta 30 mg daily Neurontin 100 mg TID Deconditioning Continue PT/OT during the patient's stay in the hospital Emphasized the patient the need to get out of bed multiple times throughout the day Hypertension Cardizem CD 240 mg daily Lisinopril 40 mg daily Staph Hominis bacteremia, treated ID following, Dr. Greenfield. 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 Dr. Sergio kuo. S/P debridement- dry, treated Wound cultures growing Klebsiella ESBL positive and Morganella finished treatment with zerbaxa Wound right great toe No signs of acute infection or abnormality at this time Continue monitor Rash: Unusual appearance and presentation, neg for herpes, biopsy inconclusive. Possibly related to zinc deficiency. Improved - Zinc could not be added to TPN per pharmacy. on oral zinc sulfate replacement. - Continue zinc oxide paste to buttock - Zinc level still low at 57, recheck monthly, Hypercoagulable state: Chronic and stable History of ischemic bowel and severe peripheral vascular disease. Continue Xarelto Anxiety and depression: Stable Continue Seroquel and Zoloft. Continue Remeron. COPD: Stable. Patient with good O2 sats on room air Patient has not required any breathing treatments Pulmonary nodule. Repeat CT recommended in 6 mos. Patient previously counseled about this finding and the need to follow-up. GI protection secondary for prolonged hospitalization Protonix DVT prevention Xarelto Discharge Planning 09/22/16 1214 CALLED AND SPOKE WITH PATIENT'S R/T TRY TO FIND WAYS TO DEFER COST OF THE TPN/LIPIDS, HE IN NO WAY SHAPE OR FORM PLANS TO ASSIST WITH THIS AND STATED HE HAS NO MONIES TO PAY FOR NOTHING. HE FEELS SHE NEEDS TO STAY RIGHT HERE UNTIL SHE IS WELL OR NO LONGER NEEDS THE TPN. I DID EXPLAIN THAT THERE IS IMPROVEMENT BUT SHE WOULD BENEFIT FROM MOVING TO NEXT LEVEL OF CARE R/T REHABILATATION. HE STATED HE CAN NOT DO WHAT HE CAN'T DO. CALL WAS ENDED. WILL CONT TO FOLLOW AND LOOK FAR ANY AVENUE TO MOVE PATIENT FORWARD. DANDY NELSON LPN/Chase Maradiaga Sep 27, 2016 10:19
[2016-09-27] MEDS: SODIUM CHLORIDE 0.9% FLUSH 5 ML FLUSH IV FLUSH SCH ×2 (12:33→21:41)
[2016-09-27 20:00] VITALS: BP 102/63; PULSE 101; RESP 18; TEMP 98.6; O2SAT 95
[2016-09-27] MEDS: MIRTAZAPINE ODT 15 MG TAB PO SCH (21:42)
[2016-09-27] MEDS: traMADol HCL 50 MG TAB PO PRN (21:42)
[2016-09-27] MEDS: FAT EMULSION 20% INJ 250 ML (Twice weekly over 8 hours) IV-CENTRAL SCH (21:44)
[2016-09-27] MEDS: CLINIMIX E 5/25 2000 mL- >42 mls/hr IV-CENTRAL SCH ×3 (21:44)
[2016-09-28] MEDS: ALPRAZolam 0.25 MG TAB PO SCH ×3 (05:53→21:22)
[2016-09-28 08:00] VITALS: BP 116/70; PULSE 103; RESP 20; TEMP 98; O2SAT 96
[2016-09-28] MEDS: MEGESTROL ACETATE SUSP 400 MG/10 ML CUP PO SCH (09:00)
[2016-09-28] MEDS: MUPIROCIN 2% OINT 22 GM TUBE TOPICAL SCH ×2 (09:00→21:29)
[2016-09-28] MEDS: COLLAGENASE OINT 30 GM TUBE TOP SCH (09:00)
[2016-09-28] MEDS: NYSTATIN 100,000 U/GM PWD 15 GM BTL TOPICAL SCH ×2 (09:00→21:28)
[2016-09-28] MEDS: SODIUM CHLORIDE 0.9% FLUSH 5 ML FLUSH IV FLUSH SCH ×2 (09:00→21:18)
[2016-09-28] MEDS: CALCITRIOL 0.25 MCG CAP PO SCH (09:16)
[2016-09-28] MEDS: SERTRALINE HCL 100 MG TAB PO SCH (09:16)
[2016-09-28] MEDS: LACTOBACILLUS ACIDOPHILUS TAB PO SCH ×3 (09:16→18:09)
[2016-09-28] MEDS: PANTOPRAZOLE SOD 20 MG DELAYED RELEASE TAB PO SCH ×2 (09:17→21:22)
[2016-09-28] MEDS: MULTIVITAMIN TAB PO SCH (09:17)
[2016-09-28] MEDS: MAGNESIUM OXIDE 400 MG TAB PO SCH ×2 (09:17→21:22)
[2016-09-28] MEDS: DILTIAZEM-CD 240 MG CAP ER PO SCH (09:17)
[2016-09-28] MEDS: GABAPENTIN 100 MG CAP PO SCH ×3 (09:17→18:09)
[2016-09-28] MEDS: DULoxetine HCl DR 30 MG CAP PO SCH (09:17)
[2016-09-28] MEDS: ZINC SULFATE 220 MG CAP PO SCH (09:17)
[2016-09-28] MEDS: RIVAROXABAN 20 MG TAB PO SCH (09:17)
[2016-09-28] MEDS: LISINOPRIL 20 MG TAB PO SCH (09:17)
[2016-09-28] MEDS: FERROUS SULFATE 325 MG (65 MG ELEMENTAL IRON) TAB PO SCH (09:17)
[2016-09-28] MEDS: CALCIUM/VITAMIN D 250 MG/125 U TAB PO SCH ×2 (09:17→21:22)
--- NOTE | 2016-09-28 10:45 | HHI.PR ---
Subjective Remarks Patient seen and examined today. Patient denies any new complaints. No change in clinical status. Objective Vitals Vital Signs Date Time Temp Pulse Resp B/P Pulse Ox O2 Delivery O2 Flow Rate FiO2 09/27/16 20:00 98.6 101 18 102/63 95 I/O 09/27/16 09/27/16 09/27/16 09/28/16 09/28/16 09/28/16 07:00 15:00 23:00 07:00 15:00 23:00 Intake Total 1562 ml 840 ml 500 ml 1936 ml Output Total 400 ml 3 ml Balance 1162 ml 837 ml 500 ml 1936 ml Intake Oral 120 ml 420 ml 500 ml 300 ml IV Total 1442 ml TPN/PPN 420 ml 1396 ml Lipid 240 ml Output Urine Total 3 ml Drainage Total 400 ml # Voids 2 3 2 2 # Bowel Movements 1 5 0 0 Result Diagram: 09/25/16 0810 09/25/16 0810 Objective Remarks GENERAL: Well-developed, cachectic, in no acute distress. alert and orientated HEENT: Head is normocephalic without any lesions or masses noted. Facial features are symmetric. Eyes: Pupils equal round reactive to light. Extraocular muscles are intact. Conjunctivae were clear. Oropharyngeal: Pharynx without any erythema edema. Tongue is midline without deviation. Buccal mucosa is moist without any masses or lesions NECK: Supple without any masses. Trachea midline no deviation. No JVD, no bruits are appreciated CARDIAC: Regular rhythm, regular rate. S1/S2 are heard. No murmurs gallops or rubs. LUNGS: Clear to auscultation bilaterally. No wheeze, rhonchi or rales. No use of accessory muscles on inspiration or expiration. ABDOMEN: Soft, nontender. Nondistended. Bowel sounds heard in all 4 quadrants. No organomegaly or masses. Negative rebound, negative guarding. Patient has enterocutaneous fistula with crook stool drainage now. Bag in place EXTREMITIES: No edema, pulses are equal bilaterally. No cyanosis or clubbing. Left lower extremity stump noted without any wounds or infection NEUROLOGY: Mood and affect appear appropriate. Cranial nerves II through XII grossly intact. Moving all extremities, speech is clear Procedures Left stump debridement by Dr. 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 Olvera, did bedside debridement of preperitoneal fat that was protruding from the fistula 09/10 Dr. Olvera, reevaluated the patient because the fistula opening back up and is now draining stool. He indicates that the fistula opens and closes at least 5 times since September. She is not a candidate for surgery due to malnutrition, short bowel syndrome and anatomic considerations, damage to the remainder small bowel and likely of the patient. Recommending conservative management of the fistula Surgeon gave specific wound care management to nursing staff to follow Prerenal azotemia, improving Worsened since 08/27/16, could be secondary to TPN, poor by mouth intake, Patient counseled on increase of by mouth fluid intake Continue monitor renal function Malnutrition: Severe protein-calorie malnutrition, improving C diff negative. TPN for nutritional support Continue Megace to stimulate appetite and Nutritional supplements Continue to monitor weight. Dietitian consulted who indicated that weight loss may be due to inaccurate ins and outs, still recommending current TPN, lipids. Encourage by mouth intake , nutritional supplements Pre-albumin is much improved at 39 Diarrhea-likely secondary to short gut syndrome, Continue Imodium, Lomotil C. difficile testing 08/23 negative Pain control Patient not indicate any pain today. Apparently pain is controlled, with blow medication. Ibuprofen 400 mg every 8 hours as needed for pain 15 Tramadol 50 mg every 8 hours as needed for pain 610 Cymbalta 30 mg daily Neurontin 100 mg TID Deconditioning Continue PT/OT during the patient's stay in the hospital Emphasized the patient the need to get out of bed multiple times throughout the day Hypertension Cardizem CD 240 mg daily Lisinopril 40 mg daily Rash: Unusual appearance and presentation, neg for herpes, biopsy inconclusive. Possibly related to zinc deficiency. Improved - Zinc could not be added to TPN per pharmacy. on oral zinc sulfate replacement. - Continue zinc oxide paste to buttock - Zinc level still low at 57, recheck monthly, Anxiety and depression: Stable Continue Seroquel and Zoloft. Continue Remeron. GI protection secondary for prolonged hospitalization Protonix DVT prevention Xarelto Discharge Planning 09/22/16 1214 CALLED AND SPOKE WITH PATIENT'S R/T TRY TO FIND WAYS TO DEFER COST OF THE TPN/LIPIDS, HE IN NO WAY SHAPE OR FORM PLANS TO ASSIST WITH THIS AND STATED HE HAS NO MONIES TO PAY FOR NOTHING. HE FEELS SHE NEEDS TO STAY RIGHT HERE UNTIL SHE IS WELL OR NO LONGER NEEDS THE TPN. I DID EXPLAIN THAT THERE IS IMPROVEMENT BUT SHE WOULD BENEFIT FROM MOVING TO NEXT LEVEL OF CARE R/T REHABILATATION. HE STATED HE CAN NOT DO WHAT HE CAN'T DO. CALL WAS ENDED. WILL CONT TO FOLLOW AND LOOK FAR ANY AVENUE TO MOVE PATIENT FORWARD. DANDY NELSON LPN/Chase Maradiaga Sep 28, 2016 10:45
[2016-09-28] MEDS: traMADol HCL 50 MG TAB PO PRN (19:26)
[2016-09-28 20:00] VITALS: BP 122/73; PULSE 121; RESP 18; TEMP 98.8; O2SAT 96
[2016-09-28] MEDS: CLINIMIX E 5/25 2000 mL- >42 mls/hr IV-CENTRAL SCH ×3 (21:18)
[2016-09-28] MEDS: MIRTAZAPINE ODT 15 MG TAB PO SCH (21:22)
[2016-09-28] MEDS: ALUMINUM/MAGNESIUM/SIMETH 30 ML CUP PO PRN (21:39)
[2016-09-29] MEDS: ACETAMINOPHEN 325 MG TAB PO PRN (00:03)
[2016-09-29 08:00] VITALS: BP 108/68; PULSE 113; RESP 19; TEMP 97.8; O2SAT 97
[2016-09-29] MEDS: MEGESTROL ACETATE SUSP 400 MG/10 ML CUP PO SCH (09:00)
[2016-09-29] MEDS: COLLAGENASE OINT 30 GM TUBE TOP SCH (09:00)
[2016-09-29] MEDS: SODIUM CHLORIDE 0.9% FLUSH 5 ML FLUSH IV FLUSH SCH ×2 (09:00→21:35)
[2016-09-29] MEDS: MUPIROCIN 2% OINT 22 GM TUBE TOPICAL SCH ×2 (09:00→21:00)
[2016-09-29] MEDS: NYSTATIN 100,000 U/GM PWD 15 GM BTL TOPICAL SCH ×2 (09:00→21:00)
[2016-09-29] MEDS: CALCIUM/VITAMIN D 250 MG/125 U TAB PO SCH ×2 (09:05→21:36)
[2016-09-29] MEDS: DULoxetine HCl DR 30 MG CAP PO SCH (09:05)
[2016-09-29] MEDS: SERTRALINE HCL 100 MG TAB PO SCH (09:05)
[2016-09-29] MEDS: RIVAROXABAN 20 MG TAB PO SCH (09:05)
[2016-09-29] MEDS: DILTIAZEM-CD 240 MG CAP ER PO SCH (09:05)
[2016-09-29] MEDS: PANTOPRAZOLE SOD 20 MG DELAYED RELEASE TAB PO SCH ×2 (09:05→21:36)
[2016-09-29] MEDS: LISINOPRIL 20 MG TAB PO SCH (09:06)
[2016-09-29] MEDS: MULTIVITAMIN TAB PO SCH (09:06)
[2016-09-29] MEDS: LACTOBACILLUS ACIDOPHILUS TAB PO SCH ×3 (09:06→17:58)
[2016-09-29] MEDS: ZINC SULFATE 220 MG CAP PO SCH (09:07)
[2016-09-29] MEDS: CALCITRIOL 0.25 MCG CAP PO SCH (09:07)
[2016-09-29] MEDS: MAGNESIUM OXIDE 400 MG TAB PO SCH ×2 (09:07→21:35)
[2016-09-29] MEDS: FERROUS SULFATE 325 MG (65 MG ELEMENTAL IRON) TAB PO SCH (09:07)
--- NOTE | 2016-09-29 09:17 | HHI.PR ---
Subjective Remarks Patient seen and examined today. Patient denies any new complaints. No change in clinical status. Objective Vitals Vital Signs Date Time Temp Pulse Resp B/P Pulse Ox O2 Delivery O2 Flow Rate FiO2 09/28/16 20:00 98.8 121 18 122/73 96 I/O 09/28/16 09/28/16 09/28/16 09/29/16 09/29/16 09/29/16 06:59 14:59 22:59 06:59 14:59 22:59 Intake Total 1936 ml 800 ml 1202 ml 1425 ml Output Total 200 ml 400 ml Balance 1936 ml 800 ml 1002 ml 1025 ml Intake Oral 300 ml 800 ml 460 ml 520 ml Tube Feeding 500 ml TPN/PPN 1396 ml 742 ml 375 ml Lipid 240 ml Other 30 ml Output Urine Total 100 ml Drainage Total 200 ml 300 ml # Voids 2 4 2 2 # Bowel Movements 0 3 1 0 Result Diagram: 09/25/16 0810 09/25/16 0810 Objective Remarks GENERAL: Well-developed, cachectic, in no acute distress. alert and orientated HEENT: Head is normocephalic without any lesions or masses noted. Facial features are symmetric. Eyes: Pupils equal round reactive to light. Extraocular muscles are intact. Conjunctivae were clear. Oropharyngeal: Pharynx without any erythema edema. Tongue is midline without deviation. Buccal mucosa is moist without any masses or lesions NECK: Supple without any masses. Trachea midline no deviation. No JVD, no bruits are appreciated CARDIAC: Regular rhythm, regular rate. S1/S2 are heard. No murmurs gallops or rubs. LUNGS: Clear to auscultation bilaterally. No wheeze, rhonchi or rales. No use of accessory muscles on inspiration or expiration. ABDOMEN: Soft, nontender. Nondistended. Bowel sounds heard in all 4 quadrants. No organomegaly or masses. Negative rebound, negative guarding. Patient has enterocutaneous fistula with crook stool drainage now. Bag in place EXTREMITIES: No edema, pulses are equal bilaterally. No cyanosis or clubbing. Left lower extremity stump noted without any wounds or infection NEUROLOGY: Mood and affect appear appropriate. Cranial nerves II through XII grossly intact. Moving all extremities, speech is clear Procedures Left stump debridement by Dr. 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 Olvera, did bedside debridement of preperitoneal fat that was protruding from the fistula 09/10 Dr. Olvera, reevaluated the patient because the fistula opening back up and is now draining stool. He indicates that the fistula opens and closes at least 5 times since September. She is not a candidate for surgery due to malnutrition, short bowel syndrome and anatomic considerations, damage to the remainder small bowel and likely of the patient. Recommending conservative management of the fistula Surgeon gave specific wound care management to nursing staff to follow Prerenal azotemia, improving Worsened since 08/27/16, could be secondary to TPN, poor by mouth intake, Patient counseled on increase of by mouth fluid intake Continue monitor renal function Malnutrition: Severe protein-calorie malnutrition, improving C diff negative. TPN for nutritional support Continue Megace to stimulate appetite and Nutritional supplements Continue to monitor weight. Dietitian consulted who indicated that weight loss may be due to inaccurate ins and outs, still recommending current TPN, lipids. Encourage by mouth intake , nutritional supplements Pre-albumin is much improved at 39 Diarrhea-likely secondary to short gut syndrome, Continue Imodium, Lomotil C. difficile testing 08/23 negative Pain control Patient not indicate any pain today. Apparently pain is controlled, with blow medication. Ibuprofen 400 mg every 8 hours as needed for pain 15 Tramadol 50 mg every 8 hours as needed for pain 610 Cymbalta 30 mg daily Neurontin 100 mg TID Deconditioning Continue PT/OT during the patient's stay in the hospital Emphasized the patient the need to get out of bed multiple times throughout the day Still awaiting [employer] for bed trapeze to improve strength, transferring for ambulation Hypertension Cardizem CD 240 mg daily Lisinopril 40 mg daily Rash: Unusual appearance and presentation, neg for herpes, biopsy inconclusive. Possibly related to zinc deficiency. Improved - Zinc could not be added to TPN per pharmacy. on oral zinc sulfate replacement. - Continue zinc oxide paste to buttock - Zinc level still low at 57, recheck monthly, Anxiety and depression: Stable Continue Seroquel and Zoloft. Continue Remeron. GI protection secondary for prolonged hospitalization Protonix DVT prevention Xarelto Discharge Planning 09/22/16 1214 CALLED AND SPOKE WITH PATIENT'S R/T TRY TO FIND WAYS TO DEFER COST OF THE TPN/LIPIDS, HE IN NO WAY SHAPE OR FORM PLANS TO ASSIST WITH THIS AND STATED HE HAS NO MONIES TO PAY FOR NOTHING. HE FEELS SHE NEEDS TO STAY RIGHT HERE UNTIL SHE IS WELL OR NO LONGER NEEDS THE TPN. I DID EXPLAIN THAT THERE IS IMPROVEMENT BUT SHE WOULD BENEFIT FROM MOVING TO NEXT LEVEL OF CARE R/T REHABILATATION. HE STATED HE CAN NOT DO WHAT HE CAN'T DO. CALL WAS ENDED. WILL CONT TO FOLLOW AND LOOK FAR ANY AVENUE TO MOVE PATIENT FORWARD. DANDY NELSON LPN/Chase Maradiaga Sep 29, 2016 09:17
[2016-09-29] MEDS: GABAPENTIN 100 MG CAP PO SCH ×3 (11:25→17:58)
[2016-09-29] MEDS: ALPRAZolam 0.25 MG TAB PO SCH ×3 (13:15→21:37)
[2016-09-29] MEDS: traMADol HCL 50 MG TAB PO PRN ×2 (13:16→21:37)
[2016-09-29 20:00] VITALS: BP 128/72; PULSE 86; RESP 18; TEMP 99.3; O2SAT 96
[2016-09-29] MEDS: CLINIMIX E 5/25 2000 mL- >42 mls/hr IV-CENTRAL SCH ×3 (21:34)
[2016-09-29] MEDS: MIRTAZAPINE ODT 15 MG TAB PO SCH (21:35)
[2016-09-30] MEDS: ALPRAZolam 0.25 MG TAB PO SCH ×3 (06:00→21:56)
[2016-09-30 08:00] VITALS: BP 130/82; PULSE 68; RESP 16; TEMP 96.3; O2SAT 97
[2016-09-30] MEDS: DULoxetine HCl DR 30 MG CAP PO SCH (09:00)
[2016-09-30] MEDS: LACTOBACILLUS ACIDOPHILUS TAB PO SCH ×3 (09:00→17:50)
[2016-09-30] MEDS: CALCIUM/VITAMIN D 250 MG/125 U TAB PO SCH ×2 (09:16→21:56)
[2016-09-30] MEDS: DILTIAZEM-CD 240 MG CAP ER PO SCH (09:16)
[2016-09-30] MEDS: GABAPENTIN 100 MG CAP PO SCH ×3 (09:16→17:50)
[2016-09-30] MEDS: CALCITRIOL 0.25 MCG CAP PO SCH (09:16)
[2016-09-30] MEDS: ZINC SULFATE 220 MG CAP PO SCH (09:16)
[2016-09-30] MEDS: SERTRALINE HCL 100 MG TAB PO SCH (09:16)
[2016-09-30] MEDS: LISINOPRIL 20 MG TAB PO SCH (09:16)
[2016-09-30] MEDS: FERROUS SULFATE 325 MG (65 MG ELEMENTAL IRON) TAB PO SCH (09:17)
[2016-09-30] MEDS: MULTIVITAMIN TAB PO SCH (09:17)
[2016-09-30] MEDS: PANTOPRAZOLE SOD 20 MG DELAYED RELEASE TAB PO SCH ×2 (09:17→21:56)
[2016-09-30] MEDS: RIVAROXABAN 20 MG TAB PO SCH (09:17)
[2016-09-30] MEDS: MEGESTROL ACETATE SUSP 400 MG/10 ML CUP PO SCH (09:17)
[2016-09-30] MEDS: MAGNESIUM OXIDE 400 MG TAB PO SCH ×2 (09:17→21:56)
[2016-09-30] MEDS: SODIUM CHLORIDE 0.9% FLUSH 5 ML FLUSH IV FLUSH SCH ×2 (09:21→21:56)
[2016-09-30] MEDS: COLLAGENASE OINT 30 GM TUBE TOP SCH (09:22)
[2016-09-30] MEDS: NYSTATIN 100,000 U/GM PWD 15 GM BTL TOPICAL SCH ×2 (09:23→22:06)
[2016-09-30] MEDS: MUPIROCIN 2% OINT 22 GM TUBE TOPICAL SCH ×2 (09:23→22:06)
--- NOTE | 2016-09-30 10:56 | HHI.PR ---
Subjective Remarks Patient seen and examined today. Patient denies any new complaints. No change in clinical function. Objective Vitals Vital Signs Date Time Temp Pulse Resp B/P Pulse Ox O2 Delivery O2 Flow Rate FiO2 09/30/16 08:00 96.3 68 16 130/82 97 09/29/16 20:00 99.3 86 18 128/72 96 09/29/16 14:16 18 I/O 09/29/16 09/29/16 09/29/16 09/30/16 09/30/16 09/30/16 07:00 15:00 23:00 07:00 15:00 23:00 Intake Total 1425 ml 780 ml 360 ml 1700 ml Output Total 400 ml Balance 1025 ml 780 ml 360 ml 1700 ml Intake Oral 520 ml 360 ml 360 ml 240 ml Tube Feeding 500 ml TPN/PPN 375 ml 420 ml 1460 ml Other 30 ml Output Urine Total 100 ml Drainage Total 300 ml # Voids 2 4 2 2 # Bowel Movements 0 2 Objective Remarks GENERAL: Well-developed, cachectic, in no acute distress. alert and orientated HEENT: Head is normocephalic without any lesions or masses noted. Facial features are symmetric. Eyes: Pupils equal round reactive to light. Extraocular muscles are intact. Conjunctivae were clear. Oropharyngeal: Pharynx without any erythema edema. Tongue is midline without deviation. Buccal mucosa is moist without any masses or lesions NECK: Supple without any masses. Trachea midline no deviation. No JVD, no bruits are appreciated CARDIAC: Regular rhythm, regular rate. S1/S2 are heard. No murmurs gallops or rubs. LUNGS: Clear to auscultation bilaterally. No wheeze, rhonchi or rales. No use of accessory muscles on inspiration or expiration. ABDOMEN: Soft, nontender. Nondistended. Bowel sounds heard in all 4 quadrants. No organomegaly or masses. Negative rebound, negative guarding. Patient has enterocutaneous fistula with crook stool drainage now. Bag in place EXTREMITIES: No edema, pulses are equal bilaterally. No cyanosis or clubbing. Left lower extremity stump noted without any wounds or infection NEUROLOGY: Mood and affect appear appropriate. Cranial nerves II through XII grossly intact. Moving all extremities, speech is clear Procedures Left stump debridement by Dr. 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 Olvrea, did bedside debridement of preperitoneal fat that was protruding from the fistula 09/10 Dr. Olvera, reevaluated the patient because the fistula opening back up and is now draining stool. He indicates that the fistula opens and closes at least 5 times since September. She is not a candidate for surgery due to malnutrition, short bowel syndrome and anatomic considerations, damage to the remainder small bowel and likely of the patient. Recommending conservative management of the fistula Surgeon gave specific wound care management to nursing staff to follow Prerenal azotemia, improving Worsened since 08/27/16, could be secondary to TPN, poor by mouth intake, Patient counseled on increase of by mouth fluid intake Continue monitor renal function Malnutrition: Severe protein-calorie malnutrition, improving C diff negative. TPN for nutritional support Continue Megace to stimulate appetite and Nutritional supplements Continue to monitor weight. Dietitian consulted who indicated that weight loss may be due to inaccurate ins and outs, still recommending current TPN, lipids. Encourage by mouth intake , nutritional supplements Pre-albumin is much improved at 39 Diarrhea-likely secondary to short gut syndrome, Continue Imodium, Lomotil C. difficile testing 08/23 negative Pain control Patient not indicate any pain today. Apparently pain is controlled, with blow medication. Ibuprofen 400 mg every 8 hours as needed for pain 15 Tramadol 50 mg every 8 hours as needed for pain 610 Cymbalta 30 mg daily Neurontin 100 mg TID Deconditioning Continue PT/OT during the patient's stay in the hospital Emphasized the patient the need to get out of bed multiple times throughout the day Still awaiting [employer] for bed trapeze to improve strength, transferring for ambulation Hypertension Cardizem CD 240 mg daily Lisinopril 40 mg daily Rash: Unusual appearance and presentation, neg for herpes, biopsy inconclusive. Possibly related to zinc deficiency. Improved - Zinc could not be added to TPN per pharmacy. on oral zinc sulfate replacement. - Continue zinc oxide paste to buttock - Zinc level still low at 57, recheck monthly, Anxiety and depression: Stable Continue Seroquel and Zoloft. Continue Remeron. GI protection secondary for prolonged hospitalization Protonix DVT prevention Xarelto Discharge Planning 09/22/16 1214 CALLED AND SPOKE WITH PATIENT'S R/T TRY TO FIND WAYS TO DEFER COST OF THE TPN/LIPIDS, HE IN NO WAY SHAPE OR FORM PLANS TO ASSIST WITH THIS AND STATED HE HAS NO MONIES TO PAY FOR NOTHING. HE FEELS SHE NEEDS TO STAY RIGHT HERE UNTIL SHE IS WELL OR NO LONGER NEEDS THE TPN. I DID EXPLAIN THAT THERE IS IMPROVEMENT BUT SHE WOULD BENEFIT FROM MOVING TO NEXT LEVEL OF CARE R/T REHABILATATION. HE STATED HE CAN NOT DO WHAT HE CAN'T DO. CALL WAS ENDED. WILL CONT TO FOLLOW AND LOOK FAR ANY AVENUE TO MOVE PATIENT FORWARD. DANDY NELSON LPN/Chase Maradiaga Sep 30, 2016 10:56
[2016-09-30] MEDS: CLINIMIX E 5/25 2000 mL- >42 mls/hr IV-CENTRAL SCH ×3 (21:56)
[2016-09-30] MEDS: MIRTAZAPINE ODT 15 MG TAB PO SCH (21:56)
[2016-09-30 22:03] VITALS: BP 133/72; PULSE 105; RESP 20; TEMP 96.5; O2SAT 97
[2016-09-30] MEDS: traMADol HCL 50 MG TAB PO PRN (22:06)
[2016-10-01] MEDS: ALPRAZolam 0.25 MG TAB PO SCH ×3 (06:00→21:01)
[2016-10-01 08:00] VITALS: BP 106/69; PULSE 97; RESP 16; TEMP 97.1; O2SAT 95
[2016-10-01] MEDS: MEGESTROL ACETATE SUSP 400 MG/10 ML CUP PO SCH (09:00)
[2016-10-01] MEDS: MUPIROCIN 2% OINT 22 GM TUBE TOPICAL SCH ×2 (09:00→20:39)
[2016-10-01] MEDS: NYSTATIN 100,000 U/GM PWD 15 GM BTL TOPICAL SCH ×2 (09:00→20:38)
[2016-10-01] MEDS: COLLAGENASE OINT 30 GM TUBE TOP SCH (09:00)
[2016-10-01] MEDS: MULTIVITAMIN TAB PO SCH (09:15)
[2016-10-01] MEDS: LISINOPRIL 20 MG TAB PO SCH (09:16)
[2016-10-01] MEDS: FERROUS SULFATE 325 MG (65 MG ELEMENTAL IRON) TAB PO SCH (09:16)
[2016-10-01] MEDS: MAGNESIUM OXIDE 400 MG TAB PO SCH ×2 (09:16→20:38)
[2016-10-01] MEDS: GABAPENTIN 100 MG CAP PO SCH ×3 (09:16→17:49)
[2016-10-01] MEDS: CALCITRIOL 0.25 MCG CAP PO SCH (09:16)
[2016-10-01] MEDS: ZINC SULFATE 220 MG CAP PO SCH (09:16)
[2016-10-01] MEDS: DULoxetine HCl DR 30 MG CAP PO SCH (09:16)
[2016-10-01] MEDS: DILTIAZEM-CD 240 MG CAP ER PO SCH (09:16)
[2016-10-01] MEDS: LACTOBACILLUS ACIDOPHILUS TAB PO SCH ×3 (09:16→17:49)
[2016-10-01] MEDS: RIVAROXABAN 20 MG TAB PO SCH (09:16)
[2016-10-01] MEDS: PANTOPRAZOLE SOD 20 MG DELAYED RELEASE TAB PO SCH ×2 (09:17→20:35)
[2016-10-01] MEDS: SERTRALINE HCL 100 MG TAB PO SCH (09:17)
[2016-10-01] MEDS: CALCIUM/VITAMIN D 250 MG/125 U TAB PO SCH ×2 (09:17→20:36)
[2016-10-01] MEDS: SODIUM CHLORIDE 0.9% FLUSH 5 ML FLUSH IV FLUSH SCH ×2 (09:19→20:35)
--- NOTE | 2016-10-01 09:56 | HHI.PR ---
Subjective Remarks Patient seen and examined today. Patient denies any new complaints. No change in clinical status. Objective Vitals Vital Signs Date Time Temp Pulse Resp B/P Pulse Ox O2 Delivery O2 Flow Rate FiO2 10/01/16 08:00 97.1 97 16 106/69 95 09/30/16 22:03 96.5 105 20 133/72 97 I/O 09/30/16 09/30/16 09/30/16 10/01/16 10/01/16 10/01/16 07:00 15:00 23:00 07:00 15:00 23:00 Intake Total 1700 ml 854 ml 950 ml Output Total 200 ml 600 ml Balance 1700 ml 854 ml -200 ml 350 ml Intake Oral 240 ml 420 ml TPN/PPN 1460 ml 434 ml 950 ml Output Urine Total 200 ml 500 ml Drainage Total 100 ml # Voids 2 2 # Bowel Movements 2 Objective Remarks GENERAL: Well-developed, cachectic, in no acute distress. alert and orientated HEENT: Head is normocephalic without any lesions or masses noted. Facial features are symmetric. Eyes: Pupils equal round reactive to light. Extraocular muscles are intact. Conjunctivae were clear. Oropharyngeal: Pharynx without any erythema edema. Tongue is midline without deviation. Buccal mucosa is moist without any masses or lesions NECK: Supple without any masses. Trachea midline no deviation. No JVD, no bruits are appreciated CARDIAC: Regular rhythm, regular rate. S1/S2 are heard. No murmurs gallops or rubs. LUNGS: Clear to auscultation bilaterally. No wheeze, rhonchi or rales. No use of accessory muscles on inspiration or expiration. ABDOMEN: Soft, nontender. Nondistended. Bowel sounds heard in all 4 quadrants. No organomegaly or masses. Negative rebound, negative guarding. Patient has enterocutaneous fistula with crook stool drainage now. Bag in place EXTREMITIES: No edema, pulses are equal bilaterally. No cyanosis or clubbing. Left lower extremity stump noted without any wounds or infection NEUROLOGY: Mood and affect appear appropriate. Cranial nerves II through XII grossly intact. Moving all extremities, speech is clear Procedures Left stump debridement by Dr. 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 Olvera, did bedside debridement of preperitoneal fat that was protruding from the fistula 09/10 Dr. Olvera, reevaluated the patient because the fistula opening back up and is now draining stool. He indicates that the fistula opens and closes at least 5 times since September. She is not a candidate for surgery due to malnutrition, short bowel syndrome and anatomic considerations, damage to the remainder small bowel and likely of the patient. Recommending conservative management of the fistula Surgeon gave specific wound care management to nursing staff to follow Prerenal azotemia, improving Worsened since 08/27/16, could be secondary to TPN, poor by mouth intake, Patient counseled on increase of by mouth fluid intake Continue monitor renal function Malnutrition: Severe protein-calorie malnutrition, improving C diff negative. TPN for nutritional support Continue Megace to stimulate appetite and Nutritional supplements Continue to monitor weight. Dietitian consulted who indicated that weight loss may be due to inaccurate ins and outs, still recommending current TPN, lipids. Encourage by mouth intake , nutritional supplements Pre-albumin is much improved at 39 Diarrhea-likely secondary to short gut syndrome, Continue Imodium, Lomotil C. difficile testing 08/23 negative Pain control Patient not indicate any pain today. Apparently pain is controlled, with blow medication. Ibuprofen 400 mg every 8 hours as needed for pain 15 Tramadol 50 mg every 8 hours as needed for pain 610 Cymbalta 30 mg daily Neurontin 100 mg TID Deconditioning Continue PT/OT during the patient's stay in the hospital Emphasized the patient the need to get out of bed multiple times throughout the day Still awaiting [employer] for bed trapeze to improve strength, transferring for ambulation Hypertension Cardizem CD 240 mg daily Lisinopril 40 mg daily Rash: Unusual appearance and presentation, neg for herpes, biopsy inconclusive. Possibly related to zinc deficiency. Improved - Zinc could not be added to TPN per pharmacy. on oral zinc sulfate replacement. - Continue zinc oxide paste to buttock - Zinc level still low at 57, recheck monthly, Anxiety and depression: Stable Continue Seroquel and Zoloft. Continue Remeron. GI protection secondary for prolonged hospitalization Protonix DVT prevention Xarelto Discharge Planning 09/22/16 1214 CALLED AND SPOKE WITH PATIENT'S R/T TRY TO FIND WAYS TO DEFER COST OF THE TPN/LIPIDS, HE IN NO WAY SHAPE OR FORM PLANS TO ASSIST WITH THIS AND STATED HE HAS NO MONIES TO PAY FOR NOTHING. HE FEELS SHE NEEDS TO STAY RIGHT HERE UNTIL SHE IS WELL OR NO LONGER NEEDS THE TPN. I DID EXPLAIN THAT THERE IS IMPROVEMENT BUT SHE WOULD BENEFIT FROM MOVING TO NEXT LEVEL OF CARE R/T REHABILATATION. HE STATED HE CAN NOT DO WHAT HE CAN'T DO. CALL WAS ENDED. WILL CONT TO FOLLOW AND LOOK FAR ANY AVENUE TO MOVE PATIENT FORWARD. DANDY NELSON LPN/Chase Maradiaga Oct 01, 2016 09:56
[2016-10-01] MEDS: traMADol HCL 50 MG TAB PO PRN ×2 (14:57→22:44)
[2016-10-01] MEDS: CLINIMIX E 5/25 2000 mL- >42 mls/hr IV-CENTRAL SCH ×3 (20:35)
[2016-10-01] MEDS: FAT EMULSION 20% INJ 250 ML (Twice weekly over 8 hours) IV-CENTRAL SCH (20:35)
[2016-10-01] MEDS: MIRTAZAPINE ODT 15 MG TAB PO SCH (20:36)
[2016-10-01] MEDS: IBUPROFEN 400 MG TAB PO PRN (20:37)
[2016-10-01 21:45] VITALS: BP 133/73; PULSE 104; RESP 20; TEMP 98.2; O2SAT 97
[2016-10-02] MEDS: ALPRAZolam 0.25 MG TAB PO SCH ×3 (06:00→21:11)
[2016-10-02 08:00] VITALS: BP 140/71; PULSE 94; RESP 20; TEMP 95.8; O2SAT 96
[2016-10-02] MEDS: SODIUM CHLORIDE 0.9% FLUSH 5 ML FLUSH IV FLUSH SCH ×2 (09:00→21:10)
[2016-10-02] MEDS: MEGESTROL ACETATE SUSP 400 MG/10 ML CUP PO SCH (09:00)
[2016-10-02] MEDS: COLLAGENASE OINT 30 GM TUBE TOP SCH (09:00)
[2016-10-02] MEDS: MUPIROCIN 2% OINT 22 GM TUBE TOPICAL SCH ×2 (09:00→21:14)
[2016-10-02] MEDS: MULTIVITAMIN TAB PO SCH (09:20)
[2016-10-02] MEDS: DILTIAZEM-CD 240 MG CAP ER PO SCH (09:20)
[2016-10-02] MEDS: DULoxetine HCl DR 30 MG CAP PO SCH (09:20)
[2016-10-02] MEDS: LACTOBACILLUS ACIDOPHILUS TAB PO SCH ×3 (09:20→17:33)
[2016-10-02] MEDS: ZINC SULFATE 220 MG CAP PO SCH (09:20)
[2016-10-02] MEDS: RIVAROXABAN 20 MG TAB PO SCH (09:20)
[2016-10-02] MEDS: PANTOPRAZOLE SOD 20 MG DELAYED RELEASE TAB PO SCH ×2 (09:21→21:11)
[2016-10-02] MEDS: GABAPENTIN 100 MG CAP PO SCH ×3 (09:21→17:33)
[2016-10-02] MEDS: SERTRALINE HCL 100 MG TAB PO SCH (09:21)
[2016-10-02] MEDS: CALCITRIOL 0.25 MCG CAP PO SCH (09:21)
[2016-10-02] MEDS: CALCIUM/VITAMIN D 250 MG/125 U TAB PO SCH ×2 (09:21→21:11)
[2016-10-02] MEDS: FERROUS SULFATE 325 MG (65 MG ELEMENTAL IRON) TAB PO SCH (09:21)
[2016-10-02] MEDS: LISINOPRIL 20 MG TAB PO SCH (09:21)
[2016-10-02] MEDS: MAGNESIUM OXIDE 400 MG TAB PO SCH ×2 (09:21→21:11)
[2016-10-02] MEDS: NYSTATIN 100,000 U/GM PWD 15 GM BTL TOPICAL SCH ×2 (09:26→21:14)
--- NOTE | 2016-10-02 09:59 | HHI.PR ---
Subjective Remarks Patient seen and examined today. Patient denies any new complaints. Patient is requesting to see Dr. Olvera again, about her fistula. Objective Vitals Vital Signs Date Time Temp Pulse Resp B/P Pulse Ox O2 Delivery O2 Flow Rate FiO2 10/02/16 08:00 95.8 94 20 140/71 96 10/01/16 21:45 98.2 104 20 133/73 97 10/01/16 15:57 20 I/O 10/01/16 10/01/16 10/01/16 10/02/16 10/02/16 10/02/16 06:59 14:59 22:59 06:59 14:59 22:59 Intake Total 950 ml 780 ml 525 ml 574 ml Output Total 600 ml 200 ml 1100 ml Balance 350 ml 780 ml 325 ml -526 ml Intake Oral 360 ml TPN/PPN 950 ml 420 ml 460 ml 389 ml Lipid 65 ml 185 ml Output Urine Total 500 ml 200 ml 900 ml Stool Total 200 ml Drainage Total 100 ml # Voids 2 # Bowel Movements 1 Objective Remarks GENERAL: Well-developed, cachectic, in no acute distress. alert and orientated HEENT: Head is normocephalic without any lesions or masses noted. Facial features are symmetric. Eyes: Pupils equal round reactive to light. Extraocular muscles are intact. Conjunctivae were clear. Oropharyngeal: Pharynx without any erythema edema. Tongue is midline without deviation. Buccal mucosa is moist without any masses or lesions NECK: Supple without any masses. Trachea midline no deviation. No JVD, no bruits are appreciated CARDIAC: Regular rhythm, regular rate. S1/S2 are heard. No murmurs gallops or rubs. LUNGS: Clear to auscultation bilaterally. No wheeze, rhonchi or rales. No use of accessory muscles on inspiration or expiration. ABDOMEN: Soft, nontender. Nondistended. Bowel sounds heard in all 4 quadrants. No organomegaly or masses. Negative rebound, negative guarding. Patient has enterocutaneous fistula with crook stool drainage now. Bag in place EXTREMITIES: No edema, pulses are equal bilaterally. No cyanosis or clubbing. Left lower extremity stump noted without any wounds or infection NEUROLOGY: Mood and affect appear appropriate. Cranial nerves II through XII grossly intact. Moving all extremities, speech is clear Procedures Left stump debridement by Dr. 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 Olvera, did bedside debridement of preperitoneal fat that was protruding from the fistula 09/10 Dr. Olvera, reevaluated the patient because the fistula opening back up and is now draining stool. He indicates that the fistula opens and closes at least 5 times since September. She is not a candidate for surgery due to malnutrition, short bowel syndrome and anatomic considerations, damage to the remainder small bowel and likely of the patient. Recommending conservative management of the fistula Surgeon gave specific wound care management to nursing staff to follow Patient requesting to see Dr. Olvera again concerning her fistula Prerenal azotemia, improving Worsened since 08/27/16, could be secondary to TPN, poor by mouth intake, Patient counseled on increase of by mouth fluid intake Continue monitor renal function Malnutrition: Severe protein-calorie malnutrition, improving C diff negative. TPN for nutritional support Continue Megace to stimulate appetite and Nutritional supplements Continue to monitor weight. Dietitian consulted who indicated that weight loss may be due to inaccurate ins and outs, still recommending current TPN, lipids. Encourage by mouth intake , nutritional supplements Pre-albumin is much improved at 39 Diarrhea-likely secondary to short gut syndrome, Continue Imodium, Lomotil C. difficile testing 08/23 negative Pain control Patient not indicate any pain today. Apparently pain is controlled, with blow medication. Ibuprofen 400 mg every 8 hours as needed for pain 15 Tramadol 50 mg every 8 hours as needed for pain 610 Cymbalta 30 mg daily Neurontin 100 mg TID Deconditioning Continue PT/OT during the patient's stay in the hospital Emphasized the patient the need to get out of bed multiple times throughout the day Still awaiting [employer] for bed trapeze to improve strength, transferring for ambulation Hypertension Cardizem CD 240 mg daily Lisinopril 40 mg daily Rash: Unusual appearance and presentation, neg for herpes, biopsy inconclusive. Possibly related to zinc deficiency. Improved - Zinc could not be added to TPN per pharmacy. on oral zinc sulfate replacement. - Continue zinc oxide paste to buttock - Zinc level normal at 61, recheck monthly, Anxiety and depression: Stable Continue Seroquel and Zoloft. Continue Remeron. GI protection secondary for prolonged hospitalization Protonix DVT prevention Xarelto Discharge Planning 09/30/16 THERE IS APPARENTLY NO CHANGE IN PROGRESSING THIS PATIENT TO THE NEXT LEVEL OF CARE. PATIENT CONTINUES ON TPN AT 60 ML/HR AND DAILY LIPIDS. IS NOT ABLE TO CARE FOR AT HOME OR ABLE TO HANDLE THE EXPENSE OF HER CARE. SN[facility] REHABS NOT WILLING TO TAKE ON THE EXPENSE ON CONTINUOUS TPN WITH NO END DATE. PATIENT CONTINUES IN HOUSE WITH PHYSICAL THERAPY AND FISTULA CARE WELL. Chase Anne Oct 02, 2016 09:59
[2016-10-02] MEDS: LOPERAMIDE HCL 2 MG CAP PO PRN (17:33)
[2016-10-02 20:00] VITALS: BP 118/65; PULSE 110; RESP 16; TEMP 98.9; O2SAT 98
[2016-10-02] MEDS: CLINIMIX E 5/25 2000 mL- >42 mls/hr IV-CENTRAL SCH ×3 (21:10)
[2016-10-02] MEDS: traMADol HCL 50 MG TAB PO PRN (21:11)
[2016-10-02] MEDS: MIRTAZAPINE ODT 15 MG TAB PO SCH (21:11)
[2016-10-03] MEDS: ALPRAZolam 0.25 MG TAB PO SCH ×3 (06:00→21:09)
[2016-10-03] MEDS: LACTOBACILLUS ACIDOPHILUS TAB PO SCH ×3 (08:32→17:43)
[2016-10-03] MEDS: PANTOPRAZOLE SOD 20 MG DELAYED RELEASE TAB PO SCH ×2 (08:32→20:54)
[2016-10-03] MEDS: ZINC SULFATE 220 MG CAP PO SCH (08:32)
[2016-10-03] MEDS: CALCITRIOL 0.25 MCG CAP PO SCH (08:33)
[2016-10-03] MEDS: DILTIAZEM-CD 240 MG CAP ER PO SCH (08:33)
[2016-10-03] MEDS: MULTIVITAMIN TAB PO SCH (08:33)
[2016-10-03] MEDS: SERTRALINE HCL 100 MG TAB PO SCH (08:33)
[2016-10-03] MEDS: GABAPENTIN 100 MG CAP PO SCH ×3 (08:33→17:43)
[2016-10-03] MEDS: RIVAROXABAN 20 MG TAB PO SCH (08:33)
[2016-10-03] MEDS: CALCIUM/VITAMIN D 250 MG/125 U TAB PO SCH ×2 (08:33→20:54)
[2016-10-03] MEDS: DULoxetine HCl DR 30 MG CAP PO SCH (08:33)
[2016-10-03] MEDS: MAGNESIUM OXIDE 400 MG TAB PO SCH ×2 (08:33→20:53)
[2016-10-03] MEDS: FERROUS SULFATE 325 MG (65 MG ELEMENTAL IRON) TAB PO SCH (08:33)
[2016-10-03] MEDS: COLLAGENASE OINT 30 GM TUBE TOP SCH (08:34)
[2016-10-03] MEDS: LISINOPRIL 20 MG TAB PO SCH (08:34)
[2016-10-03] MEDS: MUPIROCIN 2% OINT 22 GM TUBE TOPICAL SCH ×2 (08:34→20:55)
[2016-10-03] MEDS: MEGESTROL ACETATE SUSP 400 MG/10 ML CUP PO SCH (08:34)
[2016-10-03] MEDS: NYSTATIN 100,000 U/GM PWD 15 GM BTL TOPICAL SCH ×2 (08:35→20:55)
[2016-10-03] MEDS: SODIUM CHLORIDE 0.9% FLUSH 5 ML FLUSH IV FLUSH SCH ×2 (09:00→20:52)
[2016-10-03] MEDS: LOPERAMIDE HCL 2 MG CAP PO PRN (12:46)
--- NOTE | 2016-10-03 15:21 | HHI.PR ---
Subjective Remarks Follow-up for enterocutaneous fistula. Patient admits to increased distal bowel movements yesterday and today. States she has had some blood from the fistula. Objective Vitals Vital Signs Date Time Temp Pulse Resp B/P Pulse Ox O2 Delivery O2 Flow Rate FiO2 10/02/16 20:00 98.9 110 16 118/65 98 I/O 10/02/16 10/02/16 10/02/16 10/03/16 10/03/16 10/03/16 06:59 14:59 22:59 06:59 14:59 22:59 Intake Total 574 ml 1505 ml 1485 ml 1028 ml 420 ml Output Total 1100 ml 150 ml 800 ml 750 ml Balance -526 ml 1355 ml 685 ml 278 ml 420 ml Intake Oral 1200 ml 1130 ml 550 ml 420 ml TPN/PPN 389 ml 305 ml 355 ml 478 ml Lipid 185 ml 0 ml Output Urine Total 900 ml 750 ml 700 ml Stool Total 200 ml 50 ml 50 ml Drainage Total 150 ml # Voids 3 4 3 1 # Bowel Movements 3 3 1 2 1 Objective Remarks GENERAL: Pleasant well-developed patient in no apparent distress. SKIN: Warm and dry. Left lower extremity stump incisional scabbing is improved. Discoloration to medial nail fold of right great toe is improved. CARDIOVASCULAR: Normal rate and regular rhythm. RESPIRATORY: Limited exam. No accessory muscle use. CTAB. GASTROINTESTINAL: Abdomen soft, non-distended. Colostomy bag in place, no active drainage. Tender over left side of abdomen. NEUROLOGICAL: Awake and alert. Normal speech. Procedures Left stump debridement by Dr. 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 (5) Hypercoagulable state ICD Code: D68.59 Status: Chronic (6) HTN (hypertension) ICD Code: I10 Status: Chronic (7) Anxiety about health ICD Code: F41.8 Status: Chronic (8) Diarrhea ICD Code: R19.7 Status: Chronic (9) Severe protein-calorie malnutrition ICD Code: E43 Status: Chronic (10) Fungal skin infection ICD Code: B36.9 Status: Resolved (11) Transient lingual papillitis ICD Code: K14.0 Status: Resolved (12) Hospital acquired PNA ICD Code: J18.9 Status: Resolved (13) Major depressive disorder, recurrent severe without psychotic features ICD Code: F33.2 Status: Chronic (14) Disseminated herpes zoster ICD Code: B02.7 Status: Resolved (15) Hypokalemia ICD Code: E87.6 Status: Resolved (16) Prerenal azotemia ICD Code: R79.89 Status: Acute Assessment and Plan 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 Olvera, did bedside debridement of preperitoneal fat that was protruding from the fistula 09/10 Dr. Olvera, reevaluated the patient because the fistula opening back up and is now draining stool. He indicates that the fistula opens and closes at least 5 times since September. She is not a candidate for surgery due to malnutrition, short bowel syndrome and anatomic considerations, damage to the remainder small bowel and likely of the patient. Recommending conservative management of the fistula Surgeon gave specific wound care management to nursing staff to follow RN tells me that colostomy bag is not being changed everyday as instructed by Dr. Hill due to adverse effect on patient's skin. Will consult wound care nurse for further evaluation. Sepsis, resolved Likely secondary to recurrent enterocutaneous fistula Urine culture did not indicate any infection Leukocytosis has improved Prerenal azotemia, improving Could be secondary to TPN, poor by mouth intake. Patient counseled on increase of by mouth fluid intake Continue monitor renal function Malnutrition: Severe protein-calorie malnutrition, improving C diff negative. TPN for nutritional support Continue Nutritional supplements Continue to monitor weight. Dietitian consulted who indicated that weight loss may be due to inaccurate ins and outs, still recommending current TPN, lipids. Encourage by mouth intake , nutritional supplements. [employer] Stick Man following. Pre-albumin is improved Will need to discuss with physician assistant when TPN might be able to be discontinued as patient is eating most of her meals. Diarrhea-likely secondary to short gut syndrome: Increased number of bowel movements yesterday and today. Continue Imodium, Lomotil prn. C. difficile testing 08/23 negative Monitor electrolytes periodically Pain control: Patient indicates pain is not being controlled stating she needs to receive medication earlier at night yet she has not received any Ultram since last night. Ibuprofen 400 mg every 8 hours as needed for pain 15 Tramadol 50 mg every 8 hours as needed for pain 610 Cymbalta 30 mg daily Neurontin 100 mg TID Deconditioning Continue PT/OT during the patient's stay in the hospital Emphasized the patient the need to get out of bed multiple times throughout the day Still awaiting [employer] for bed trapeze to improve strength, transferring for ambulation Hypertension Cardizem CD 240 mg daily Lisinopril 40 mg daily Staph Hominis bacteremia, treated ID following, Dr. Greenfield. 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 Dr. Sergio kuo. S/P debridement- dry, treated Wound cultures grew Klebsiella ESBL positive and Morganella; finished treatment with zerbaxa Wound right great toe: Improved No signs of acute infection or abnormality at this time Continue monitor Rash: Unusual appearance and presentation, neg for herpes, biopsy inconclusive. Possibly related to zinc deficiency. Improved - Zinc could not be added to TPN per pharmacy. on oral zinc sulfate replacement. - Continue zinc oxide paste to buttock - Zinc level normal at 61, recheck monthly. Possible tinea R leg: Improved. S/p Clotrimazole cream x 2 weeks. Hypercoagulable state: Chronic and stable History of ischemic bowel and severe peripheral vascular disease. Continue Xarelto Anxiety and depression: Stable Continue Seroquel and Zoloft. Continue Remeron. COPD: Stable. Patient with good O2 sats on room air Patient has not required any breathing treatments Patient had crackles at R base which have improved. Continue IS. Pulmonary nodule. Repeat CT recommended in 6 mos. Patient previously counseled about this finding and the need to follow-up. GI protection secondary for prolonged hospitalization Protonix DVT prevention Xarelto Discharge Planning PT and OT recommend rehab. Patient cannot be placed until TPN is discontinued. [facility] is out of network. Patient apparently wishes to return home with spouse when discharged. Problem Qualifiers (1) HTN (hypertension): Qualified Code: I10 - Essential hypertension (2) Diarrhea: Qualified Code: R19.7 - Diarrhea, unspecified type Kathy Parmar Oct 03, 2016 15:20 Elen Rivers DO Oct 04, 2016 01:52
[2016-10-03 20:00] VITALS: BP 108/61; PULSE 105; RESP 18; TEMP 98.2; O2SAT 95
[2016-10-03] MEDS: CLINIMIX E 5/25 2000 mL- >42 mls/hr IV-CENTRAL SCH ×3 (20:52)
[2016-10-03] MEDS: MIRTAZAPINE ODT 15 MG TAB PO SCH (20:53)
[2016-10-03] MEDS: traMADol HCL 50 MG TAB PO PRN (20:53)
[2016-10-04] MEDS: ALPRAZolam 0.25 MG TAB PO SCH ×3 (05:56→21:28)
[2016-10-04 08:00] VITALS: BP 126/69; PULSE 69; RESP 16; TEMP 96.2; O2SAT 98
[2016-10-04] MEDS: SERTRALINE HCL 100 MG TAB PO SCH (09:14)
[2016-10-04] MEDS: LISINOPRIL 20 MG TAB PO SCH (09:14)
[2016-10-04] MEDS: MULTIVITAMIN TAB PO SCH (09:15)
[2016-10-04] MEDS: CALCIUM/VITAMIN D 250 MG/125 U TAB PO SCH ×2 (09:15→21:29)
[2016-10-04] MEDS: DULoxetine HCl DR 30 MG CAP PO SCH (09:15)
[2016-10-04] MEDS: GABAPENTIN 100 MG CAP PO SCH ×3 (09:15→16:49)
[2016-10-04] MEDS: DILTIAZEM-CD 240 MG CAP ER PO SCH (09:16)
[2016-10-04] MEDS: MEGESTROL ACETATE SUSP 400 MG/10 ML CUP PO SCH (09:16)
[2016-10-04] MEDS: CALCITRIOL 0.25 MCG CAP PO SCH (09:16)
[2016-10-04] MEDS: PANTOPRAZOLE SOD 20 MG DELAYED RELEASE TAB PO SCH ×2 (09:16→21:28)
[2016-10-04] MEDS: FERROUS SULFATE 325 MG (65 MG ELEMENTAL IRON) TAB PO SCH (09:16)
[2016-10-04] MEDS: ZINC SULFATE 220 MG CAP PO SCH (09:16)
[2016-10-04] MEDS: RIVAROXABAN 20 MG TAB PO SCH (09:16)
[2016-10-04] MEDS: MAGNESIUM OXIDE 400 MG TAB PO SCH ×2 (09:16→21:29)
[2016-10-04] MEDS: LACTOBACILLUS ACIDOPHILUS TAB PO SCH ×3 (09:16→16:50)
[2016-10-04] MEDS: NYSTATIN 100,000 U/GM PWD 15 GM BTL TOPICAL SCH ×2 (09:23→21:30)
[2016-10-04] MEDS: MUPIROCIN 2% OINT 22 GM TUBE TOPICAL SCH ×2 (09:23→21:29)
[2016-10-04] MEDS: COLLAGENASE OINT 30 GM TUBE TOP SCH (09:24)
[2016-10-04] MEDS: SODIUM CHLORIDE 0.9% FLUSH 5 ML FLUSH IV FLUSH SCH ×2 (09:25→21:28)
[2016-10-04] MEDS: DIPHENOXYLATE/ATROPINE 2.5 MG/0.025 MG TAB PO PRN (12:55)
[2016-10-04] MEDS: traMADol HCL 50 MG TAB PO PRN (16:49)
[2016-10-04 20:00] VITALS: BP 123/68; PULSE 94; RESP 18; TEMP 96.5; O2SAT 96
--- NOTE | 2016-10-04 20:55 | HHI.PR ---
Subjective Remarks Late entry. Patient evaluated this morning. Follow-up for enterocutaneous fistula. No acute complaints. I spoke with the dietitian regarding possible discontinuation of TPN. She states the patient's weight has remained stable and patient is eating by mouth, but she does not know if patient continues to have malabsorption. Objective Vitals Vital Signs Date Time Temp Pulse Resp B/P Pulse Ox O2 Delivery O2 Flow Rate FiO2 10/04/16 20:00 96.5 94 18 123/68 96 10/04/16 18:01 14 10/04/16 08:00 96.2 69 16 126/69 98 I/O 10/03/16 10/03/16 10/03/16 10/04/16 10/04/16 10/04/16 07:00 15:00 23:00 07:00 15:00 23:00 Intake Total 1028 ml 420 ml 1912 ml 854 ml 420 ml Output Total 750 ml 850 ml 650 ml Balance 278 ml 420 ml 1062 ml 204 ml 420 ml Intake Oral 550 ml 420 ml 750 ml 350 ml 420 ml TPN/PPN 478 ml 1162 ml 504 ml Lipid 0 ml 0 ml Output Urine Total 700 ml 650 ml 650 ml Stool Total 50 ml 100 ml Drainage Total 100 ml # Voids 3 1 3 3 # Bowel Movements 1 2 3 3 Objective Remarks GENERAL: Pleasant well-developed patient in no apparent distress. SKIN: Warm and dry. CARDIOVASCULAR: Tachycardic rate and regular rhythm. RESPIRATORY: Limited exam. No accessory muscle use. CTAB. GASTROINTESTINAL: Abdomen soft, non-distended. NEUROLOGICAL: Awake and alert. Normal speech. Procedures Left stump debridement by Dr. 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 (5) Hypercoagulable state ICD Code: D68.59 Status: Chronic (6) HTN (hypertension) ICD Code: I10 Status: Chronic (7) Anxiety about health ICD Code: F41.8 Status: Chronic (8) Diarrhea ICD Code: R19.7 Status: Chronic (9) Severe protein-calorie malnutrition ICD Code: E43 Status: Chronic (10) Fungal skin infection ICD Code: B36.9 Status: Resolved (11) Transient lingual papillitis ICD Code: K14.0 Status: Resolved (12) Hospital acquired PNA ICD Code: J18.9 Status: Resolved (13) Major depressive disorder, recurrent severe without psychotic features ICD Code: F33.2 Status: Chronic (14) Disseminated herpes zoster ICD Code: B02.7 Status: Resolved (15) Hypokalemia ICD Code: E87.6 Status: Resolved (16) Prerenal azotemia ICD Code: R79.89 Status: Acute Assessment and Plan 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 Olvera, did bedside debridement of preperitoneal fat that was protruding from the fistula 09/10 Dr. Olvera, reevaluated the patient because the fistula opened back up and was draining stool. He indicates that the fistula opens and closes at least 5 times since September. She is not a candidate for surgery due to malnutrition, short bowel syndrome and anatomic considerations, damage to the remainder small bowel and likely of the patient. Recommending conservative management of the fistula Surgeon gave specific wound care management to nursing staff to follow Wound care nurse consulted regarding fistula dressings. I spoke with Gabriela, mysql database administrator. She states patient has 3 stomatized fistulas. She removed the large wound information assurance manager on patient's abdomen and encrusted periwound with stoma powder and skin barrier film. Applied eakins seal between fistulas and applied stoma paste to proximal and distal ends to seal. Applied bag with adhesive backing. Malnutrition: Severe protein-calorie malnutrition, improving C diff negative. TPN for nutritional support Continue Nutritional supplements Continue to monitor weight. Dietitian consulted who indicated that weight loss may be due to inaccurate ins and outs, still recommending current TPN, lipids. Encourage by mouth intake , nutritional supplements. Clinical Rehabilitation Liaison following. Pre-albumin is improved I spoke with design drafter regarding TPN discontinuation as patient is eating 75- 100% of her meals. The only concern is whether she would get adequate nutrition without TPN if she has absorption issues due to short bowel syndrome. I discussed this with Dr. Rivers, attending, and have informed Dr. Hill of this concern, awaiting call back. Diarrhea-likely secondary to short gut syndrome: # of BMs improved from prior days. Continue Imodium, Lomotil prn. C. difficile testing 08/23 negative Monitor electrolytes periodically Sepsis, resolved Likely secondary to recurrent enterocutaneous fistula Urine culture did not indicate any infection Leukocytosis has improved Prerenal azotemia, improving Could be secondary to TPN, poor by mouth intake. Patient counseled on increase of by mouth fluid intake Continue monitor renal function Pain control: Patient indicates pain is not being controlled stating she needs to receive medication earlier at night yet she has not received any Ultram since last night. Ibuprofen 400 mg every 8 hours as needed for pain 15 Tramadol 50 mg every 8 hours as needed for pain 610 Cymbalta 30 mg daily Neurontin 100 mg TID Deconditioning Continue PT/OT during the patient's stay in the hospital Emphasized the patient the need to get out of bed multiple times throughout the day Still awaiting [employer] for bed trapeze to improve strength, transferring for ambulation Hypertension Cardizem CD 240 mg daily Lisinopril 40 mg daily Staph Hominis bacteremia, treated ID following, Dr. Greenfield. 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 Dr. Hill ff. S/P debridement- dry, treated Wound cultures grew Klebsiella ESBL positive and Morganella; finished treatment with zerbaxa Wound right great toe: Improved No signs of acute infection or abnormality at this time Continue monitor Rash: Unusual appearance and presentation, neg for herpes, biopsy inconclusive. Possibly related to zinc deficiency. Improved - Zinc could not be added to TPN per pharmacy. on oral zinc sulfate replacement. - Continue zinc oxide paste to buttock - Zinc level normal at 61, recheck monthly. Possible tinea R leg: Improved. S/p Clotrimazole cream x 2 weeks. Hypercoagulable state: Chronic and stable History of ischemic bowel and severe peripheral vascular disease. Continue Xarelto Anxiety and depression: Stable Continue Seroquel and Zoloft. Continue Remeron. COPD: Stable. Patient with good O2 sats on room air Patient has not required any breathing treatments Patient had crackles at R base which have improved. Continue IS. Pulmonary nodule. Repeat CT recommended in 6 mos. Patient previously counseled about this finding and the need to follow-up. GI protection secondary for prolonged hospitalization Protonix DVT prevention Xarelto Discharge Planning PT and OT recommend rehab. Patient cannot be placed until TPN is discontinued. [facility] is out of network. Patient apparently wishes to return home with spouse when discharged. Problem Qualifiers (1) HTN (hypertension): Qualified Code: I10 - Essential hypertension (2) Diarrhea: Qualified Code: R19.7 - Diarrhea, unspecified type Kathy Parmar Oct 04, 2016 20:55 Elen Rivers DO Oct 05, 2016 00:59
[2016-10-04] MEDS: CLINIMIX E 5/25 2000 mL- >42 mls/hr IV-CENTRAL SCH ×3 (21:28)
[2016-10-04] MEDS: FAT EMULSION 20% INJ 250 ML (Twice weekly over 8 hours) IV-CENTRAL SCH (21:28)
[2016-10-04] MEDS: MIRTAZAPINE ODT 15 MG TAB PO SCH (21:29)
[2016-10-04] MEDS: IBUPROFEN 400 MG TAB PO PRN (21:42)
[2016-10-05] MEDS: ALPRAZolam 0.25 MG TAB PO SCH ×3 (05:54→22:32)
[2016-10-05 08:00] VITALS: BP 115/67; PULSE 104; RESP 14; TEMP 98; O2SAT 95
[2016-10-05] MEDS: NYSTATIN 100,000 U/GM PWD 15 GM BTL TOPICAL SCH ×2 (09:00→22:33)
[2016-10-05] MEDS: COLLAGENASE OINT 30 GM TUBE TOP SCH (09:00)
[2016-10-05] MEDS: MUPIROCIN 2% OINT 22 GM TUBE TOPICAL SCH ×2 (09:00→22:33)
[2016-10-05] MEDS: DULoxetine HCl DR 30 MG CAP PO SCH (09:00)
[2016-10-05] MEDS: SODIUM CHLORIDE 0.9% FLUSH 5 ML FLUSH IV FLUSH SCH ×2 (09:00→22:32)
[2016-10-05] MEDS: LISINOPRIL 20 MG TAB PO SCH (09:30)
[2016-10-05] MEDS: MULTIVITAMIN TAB PO SCH (09:30)
[2016-10-05] MEDS: ZINC SULFATE 220 MG CAP PO SCH (09:30)
[2016-10-05] MEDS: DILTIAZEM-CD 240 MG CAP ER PO SCH (09:30)
[2016-10-05] MEDS: GABAPENTIN 100 MG CAP PO SCH ×3 (09:30→18:31)
[2016-10-05] MEDS: RIVAROXABAN 20 MG TAB PO SCH (09:30)
[2016-10-05] MEDS: DIPHENOXYLATE/ATROPINE 2.5 MG/0.025 MG TAB PO PRN (09:30)
[2016-10-05] MEDS: LACTOBACILLUS ACIDOPHILUS TAB PO SCH ×3 (09:30→18:31)
[2016-10-05] MEDS: SERTRALINE HCL 100 MG TAB PO SCH (09:30)
[2016-10-05] MEDS: PANTOPRAZOLE SOD 20 MG DELAYED RELEASE TAB PO SCH ×2 (09:31→22:33)
[2016-10-05] MEDS: CALCITRIOL 0.25 MCG CAP PO SCH (09:31)
[2016-10-05] MEDS: CALCIUM/VITAMIN D 250 MG/125 U TAB PO SCH ×2 (09:31→22:32)
[2016-10-05] MEDS: MAGNESIUM OXIDE 400 MG TAB PO SCH ×2 (09:31→22:32)
[2016-10-05] MEDS: FERROUS SULFATE 325 MG (65 MG ELEMENTAL IRON) TAB PO SCH (09:32)
[2016-10-05] MEDS: MEGESTROL ACETATE SUSP 400 MG/10 ML CUP PO SCH (09:32)
--- NOTE | 2016-10-05 10:57 | HHI.PR ---
Subjective Remarks Follow-up for enterocutaneous fistula. Patient states she slept well. Prefers the new bandage/bag which was applied yesterday to the abdomen. Objective Vitals Vital Signs Date Time Temp Pulse Resp B/P Pulse Ox O2 Delivery O2 Flow Rate FiO2 10/05/16 08:00 98.0 104 14 115/67 95 10/04/16 20:00 96.5 94 18 123/68 96 10/04/16 18:01 14 I/O 10/04/16 10/04/16 10/04/16 10/05/16 10/05/16 10/05/16 06:59 14:59 22:59 06:59 14:59 22:59 Intake Total 854 ml 420 ml 850 ml Output Total 650 ml 700 ml Balance 204 ml 420 ml 150 ml Intake Oral 350 ml 420 ml TPN/PPN 504 ml 600 ml Lipid 0 ml 250 ml Output Urine Total 650 ml 700 ml # Voids 3 3 3 # Bowel Movements 3 Objective Remarks GENERAL: Pleasant well-developed patient in no apparent distress. SKIN: Warm and dry. CARDIOVASCULAR: Tachycardic rate and regular rhythm. RESPIRATORY: Limited exam. No accessory muscle use. CTAB. GASTROINTESTINAL: Abdomen soft, non-distended. NEUROLOGICAL: Awake and alert. Normal speech. Procedures Left stump debridement by Dr. 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 (5) Hypercoagulable state ICD Code: D68.59 Status: Chronic (6) HTN (hypertension) ICD Code: I10 Status: Chronic (7) Anxiety about health ICD Code: F41.8 Status: Chronic (8) Diarrhea ICD Code: R19.7 Status: Chronic (9) Severe protein-calorie malnutrition ICD Code: E43 Status: Chronic (10) Fungal skin infection ICD Code: B36.9 Status: Resolved (11) Transient lingual papillitis ICD Code: K14.0 Status: Resolved (12) Hospital acquired PNA ICD Code: J18.9 Status: Resolved (13) Major depressive disorder, recurrent severe without psychotic features ICD Code: F33.2 Status: Chronic (14) Disseminated herpes zoster ICD Code: B02.7 Status: Resolved (15) Hypokalemia ICD Code: E87.6 Status: Resolved (16) Prerenal azotemia ICD Code: R79.89 Status: Acute Assessment and Plan 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 Olvera, did bedside debridement of preperitoneal fat that was protruding from the fistula 09/10 Dr. Olvera, reevaluated the patient because the fistula opened back up and was draining stool. He indicates that the fistula opens and closes at least 5 times since September. She is not a candidate for surgery due to malnutrition, short bowel syndrome and anatomic considerations, damage to the remainder small bowel and likely of the patient. Recommending conservative management of the fistula Surgeon gave specific wound care management to nursing staff to follow Wound care nurse consulted regarding fistula dressings. I spoke with Gabriela, gluer machine operator on 10/04. She states patient has 3 stomatized fistulas. She removed the large wound trials manager on patient's abdomen and encrusted periwound with stoma powder and skin barrier film. Applied eakins seal between fistulas and applied stoma paste to proximal and distal ends to seal. Applied bag with adhesive backing. Malnutrition: Severe protein-calorie malnutrition, improving C diff negative. TPN for nutritional support Continue Nutritional supplements Continue to monitor weight. Dietitian consulted who indicated that weight loss may be due to inaccurate ins and outs, still recommending current TPN, lipids. Encourage by mouth intake , nutritional supplements. Interpretive Program Coordinator following. Pre-albumin is improved I spoke with pipe smoking machine operator regarding TPN discontinuation as patient is eating 75- 100% of her meals. The only concern is whether she would get adequate nutrition without TPN if she has absorption issues due to short bowel syndrome. I discussed this with Dr. Rivers, attending, and have informed Dr. Hill of this concern. Dr. Rivers will call Dr. Hill. Diarrhea-likely secondary to short gut syndrome: # of BMs improved. Continue Imodium, Lomotil prn. C. difficile testing 11/2 negative Monitor electrolytes periodically Sepsis, resolved Likely secondary to recurrent enterocutaneous fistula Urine culture did not indicate any infection Leukocytosis has improved Prerenal azotemia, improving Could be secondary to TPN, poor by mouth intake. Patient counseled on increase of by mouth fluid intake Continue monitor renal function Pain control: Patient indicates pain is not being controlled stating she needs to receive medication earlier at night yet she has not received any Ultram since last night. Ibuprofen 400 mg every 8 hours as needed for pain 15 Tramadol 50 mg every 8 hours as needed for pain 610 Cymbalta 30 mg daily Neurontin 100 mg TID Deconditioning Continue PT/OT during the patient's stay in the hospital Emphasized the patient the need to get out of bed multiple times throughout the day Still awaiting [employer] for bed trapeze to improve strength, transferring for ambulation Hypertension Cardizem CD 240 mg daily Lisinopril 40 mg daily Staph Hominis bacteremia, treated ID following, Dr. Greenfield. 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 Dr. Sergio kuo. S/P debridement- dry, treated Wound cultures grew Klebsiella ESBL positive and Morganella; finished treatment with zerbaxa Wound right great toe: Improved No signs of acute infection or abnormality at this time Continue monitor Rash: Unusual appearance and presentation, neg for herpes, biopsy inconclusive. Possibly related to zinc deficiency. Improved - Zinc could not be added to TPN per pharmacy. on oral zinc sulfate replacement. - Continue zinc oxide paste to buttock - Zinc level normal at 61, recheck monthly. Possible tinea R leg: Improved. S/p Clotrimazole cream x 2 weeks. Hypercoagulable state: Chronic and stable History of ischemic bowel and severe peripheral vascular disease. Continue Xarelto Anxiety and depression: Stable Continue Seroquel and Zoloft. Continue Remeron. COPD: Stable. Patient with good O2 sats on room air Patient has not required any breathing treatments Patient had crackles at R base which have improved. Continue IS. Pulmonary nodule. Repeat CT recommended in 6 mos. Patient previously counseled about this finding and the need to follow-up. GI protection secondary for prolonged hospitalization Protonix DVT prevention Xarelto Discharge Planning PT and OT recommend rehab. Patient cannot be placed until TPN is discontinued. [facility] is out of network. Patient apparently wishes to return home with spouse when discharged. Problem Qualifiers (1) HTN (hypertension): Qualified Code: I10 - Essential hypertension (2) Diarrhea: Qualified Code: R19.7 - Diarrhea, unspecified type Kathy Parmar Oct 05, 2016 10:57 am Elen Rivers DO Oct 05, 2016 6:49 pm
[2016-10-05 20:00] VITALS: BP 107/67; PULSE 109; RESP 20; TEMP 98.2; O2SAT 97
[2016-10-05] MEDS: CLINIMIX E 5/25 2000 mL- >42 mls/hr IV-CENTRAL SCH ×3 (20:29)
[2016-10-05] MEDS: MIRTAZAPINE ODT 15 MG TAB PO SCH (22:32)
[2016-10-05] MEDS: traMADol HCL 50 MG TAB PO PRN (23:32)
[2016-10-06] MEDS: ALPRAZolam 0.25 MG TAB PO SCH ×3 (05:32→20:36)
[2016-10-06 08:00] VITALS: BP 111/68; PULSE 100; RESP 18; TEMP 98; O2SAT 97
[2016-10-06] MEDS: CALCITRIOL 0.25 MCG CAP PO SCH (08:16)
[2016-10-06] MEDS: ZINC SULFATE 220 MG CAP PO SCH (08:16)
[2016-10-06] MEDS: LACTOBACILLUS ACIDOPHILUS TAB PO SCH ×3 (08:17→18:32)
[2016-10-06] MEDS: GABAPENTIN 100 MG CAP PO SCH (08:17)
[2016-10-06] MEDS: SERTRALINE HCL 100 MG TAB PO SCH (08:17)
[2016-10-06] MEDS: RIVAROXABAN 20 MG TAB PO SCH (08:17)
[2016-10-06] MEDS: LISINOPRIL 20 MG TAB PO SCH (08:17)
[2016-10-06] MEDS: DULoxetine HCl DR 30 MG CAP PO SCH (08:18)
[2016-10-06] MEDS: PANTOPRAZOLE SOD 20 MG DELAYED RELEASE TAB PO SCH ×2 (08:18→20:36)
[2016-10-06] MEDS: FERROUS SULFATE 325 MG (65 MG ELEMENTAL IRON) TAB PO SCH (08:18)
[2016-10-06] MEDS: DILTIAZEM-CD 240 MG CAP ER PO SCH (08:18)
[2016-10-06] MEDS: MULTIVITAMIN TAB PO SCH (08:18)
[2016-10-06] MEDS: CALCIUM/VITAMIN D 250 MG/125 U TAB PO SCH ×2 (08:18→20:36)
[2016-10-06] MEDS: MAGNESIUM OXIDE 400 MG TAB PO SCH ×2 (08:18→20:36)
[2016-10-06] MEDS: MUPIROCIN 2% OINT 22 GM TUBE TOPICAL SCH (08:19)
[2016-10-06] MEDS: NYSTATIN 100,000 U/GM PWD 15 GM BTL TOPICAL SCH ×2 (08:19→20:37)
[2016-10-06] MEDS: MEGESTROL ACETATE SUSP 400 MG/10 ML CUP PO SCH (08:19)
[2016-10-06] MEDS: COLLAGENASE OINT 30 GM TUBE TOP SCH (08:19)
--- NOTE | 2016-10-06 09:27 | HHI.PR ---
Subjective Remarks Follow-up for enterocutaneous fistula. Patient admits to pain in her amputated leg and requests increased frequency of pain medication. Objective Vitals Vital Signs Date Time Temp Pulse Resp B/P Pulse Ox O2 Delivery O2 Flow Rate FiO2 10/06/16 08:00 98.0 100 18 111/68 97 10/05/16 20:00 98.2 109 20 107/67 97 I/O 10/05/16 10/05/16 10/05/16 10/06/16 10/06/16 10/06/16 07:00 15:00 23:00 07:00 15:00 23:00 Intake Total 850 ml 480 ml 480 ml 1400 ml Output Total 700 ml 675 ml Balance 150 ml 480 ml 480 ml 725 ml Intake Oral 480 ml 480 ml TPN/PPN 600 ml 1400 ml Lipid 250 ml Output Urine Total 700 ml 500 ml Drainage Total 175 ml # Voids 3 3 4 2 # Bowel Movements 2 1 Objective Remarks GENERAL: Pleasant well-developed patient in no apparent distress. SKIN: Warm and dry. CARDIOVASCULAR: Regular rate and rhythm. RESPIRATORY: Limited exam. No accessory muscle use. CTAB. GASTROINTESTINAL: Abdomen soft, non-tender, non-distended. MUSCULOSKELETAL: LLE stump without swelling or erythema. NEUROLOGICAL: Awake and alert. Normal speech. PSYCHIATRIC: Pleasant mood and affect; makes jokes. Procedures Left stump debridement by Dr. 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 (5) Hypercoagulable state ICD Code: D68.59 Status: Chronic (6) HTN (hypertension) ICD Code: I10 Status: Chronic (7) Anxiety about health ICD Code: F41.8 Status: Chronic (8) Diarrhea ICD Code: R19.7 Status: Chronic (9) Severe protein-calorie malnutrition ICD Code: E43 Status: Chronic (10) Fungal skin infection ICD Code: B36.9 Status: Resolved (11) Transient lingual papillitis ICD Code: K14.0 Status: Resolved (12) Hospital acquired PNA ICD Code: J18.9 Status: Resolved (13) Major depressive disorder, recurrent severe without psychotic features ICD Code: F33.2 Status: Chronic (14) Disseminated herpes zoster ICD Code: B02.7 Status: Resolved (15) Hypokalemia ICD Code: E87.6 Status: Resolved (16) Prerenal azotemia ICD Code: R79.89 Status: Acute Assessment and Plan 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 Olvera, did bedside debridement of preperitoneal fat that was protruding from the fistula 09/10 Dr. Olvera, reevaluated the patient because the fistula opened back up and was draining stool. He indicates that the fistula opens and closes at least 5 times since September. She is not a candidate for surgery due to malnutrition, short bowel syndrome and anatomic considerations, damage to the remainder small bowel and likely of the patient. Recommending conservative management of the fistula Surgeon gave specific wound care management to nursing staff to follow Wound care nurse consulted regarding fistula dressings. I spoke with Gabriela, account manager forest service on 10/04. She states patient has 3 stomatized fistulas. She removed the large wound provider relations manager on patient's abdomen and encrusted periwound with stoma powder and skin barrier film. Applied eakins seal between fistulas and applied stoma paste to proximal and distal ends to seal. Applied bag with adhesive backing. -Dr. Olvera is agreeable to second opinion by another surgeon and he will consult Dr. Clayton in regards to this. This was relayed to patient. Malnutrition: Severe protein-calorie malnutrition, improving C diff negative. TPN for nutritional support Continue Nutritional supplements Continue to monitor weight. Dietitian consulted who indicated that weight loss may be due to inaccurate ins and outs, still recommending current TPN, lipids. Encourage by mouth intake , nutritional supplements. Assistant Prosecuting Attorney following. Pre-albumin is improved I spoke with physiotherapist's assistant regarding TPN discontinuation as patient is eating 75- 100% of her meals. The only concern is whether she would get adequate nutrition without TPN if she has absorption issues due to short bowel syndrome. We spoke with Dr. Olvera in regards to stopping TPN as patient is eating meals. He is agreeable to stopping TPN and seeing how patient does off of it. TPN discontinued. Diarrhea-likely secondary to short gut syndrome: # of BMs improved. Continue Imodium, Lomotil prn. C. difficile testing 08/23 negative Monitor electrolytes periodically Sepsis, resolved Likely secondary to recurrent enterocutaneous fistula Urine culture did not indicate any infection Leukocytosis has improved Prerenal azotemia, improving Could be secondary to TPN, poor by mouth intake. Patient counseled on increase of by mouth fluid intake Continue monitor renal function. Repeat BMP tomorrow am. Pain control: Patient indicates amputated limb pain is not being controlled. Ibuprofen 400 mg every 8 hours as needed for pain 15 Tramadol 50 mg every 8 hours as needed for pain 610 Cymbalta 30 mg daily Neurontin 100 mg TID; will increase to 300 mg tid Deconditioning Continue PT/OT during the patient's stay in the hospital Emphasized the patient the need to get out of bed multiple times throughout the day Still awaiting [employer] for bed trapeze to improve strength, transferring for ambulation Hypertension Cardizem CD 240 mg daily Lisinopril 40 mg daily Staph Hominis bacteremia, treated ID following, Dr. Greenfield. 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 Dr. Sergio kuo. S/P debridement- dry, treated Wound cultures grew Klebsiella ESBL positive and Morganella; finished treatment with zerbaxa Wound right great toe: Improved No signs of acute infection or abnormality at this time Continue monitor Rash: Unusual appearance and presentation, neg for herpes, biopsy inconclusive. Possibly related to zinc deficiency. Improved - Zinc could not be added to TPN per pharmacy; on oral zinc sulfate replacement. - Continue zinc oxide paste to buttock - Zinc level normal at 61, recheck monthly. Possible tinea R leg: Improved. -S/p Clotrimazole cream x 2 weeks. Hypercoagulable state: Chronic and stable History of ischemic bowel and severe peripheral vascular disease. Continue Xarelto Anxiety and depression: Stable Continue Seroquel and Zoloft. Continue Remeron. COPD: Stable. Patient with good O2 sats on room air Patient has not required any breathing treatments Continue IS. Pulmonary nodule. Repeat CT recommended in 6 mos. Patient previously counseled about this finding and the need to follow-up. GI protection secondary for prolonged hospitalization Protonix DVT prevention Xarelto Written by Kathy Parmar PA-C acting as scribe for Dr. Rivers on 10/06/16 at 0915. The documentation accurately reflects the work and decisions performed face-to- face by me Dr. Rivers on 10/06/16 at 0915. Discharge Planning PT and OT recommend rehab. Patient could not be placed until TPN is discontinued. [facility] is out of network. Patient apparently wishes to return home with spouse when discharged. She does have a neighbor who helps she and her and can be there when needed. Problem Qualifiers (1) HTN (hypertension): Qualified Code: I10 - Essential hypertension (2) Diarrhea: Qualified Code: R19.7 - Diarrhea, unspecified type Kathy Parmar Oct 06, 2016 09:27
[2016-10-06] MEDS: SODIUM CHLORIDE 0.9% FLUSH 5 ML FLUSH IV FLUSH SCH ×2 (12:24→21:00)
[2016-10-06] MEDS: GABAPENTIN 300 MG CAP PO SCH ×2 (13:17→18:32)
[2016-10-06] MEDS: LOPERAMIDE HCL 2 MG CAP PO PRN (13:40)
[2016-10-06 20:00] VITALS: BP 97/62; PULSE 107; RESP 18; TEMP 97.7; O2SAT 94
[2016-10-06] MEDS: MIRTAZAPINE ODT 15 MG TAB PO SCH (20:36)
[2016-10-07] MEDS: ALPRAZolam 0.25 MG TAB PO SCH ×3 (06:00→21:16)
[2016-10-07 07:31] LABS: POTASSIUM 4.3 MEQ/L (3.5-5.1)
[2016-10-07 07:34] LABS: BICARBONATE 22.8 MEQ/L (21.0-32.0)
[2016-10-07 08:00] VITALS: BP 116/63; PULSE 107; RESP 18; TEMP 98.6; O2SAT 95
[2016-10-07] MEDS: MAGNESIUM OXIDE 400 MG TAB PO SCH ×2 (09:00→21:16)
[2016-10-07] MEDS: SODIUM CHLORIDE 0.9% FLUSH 5 ML FLUSH IV FLUSH SCH ×2 (09:00→21:19)
[2016-10-07] MEDS: CALCIUM/VITAMIN D 250 MG/125 U TAB PO SCH ×2 (09:00→21:17)
[2016-10-07] MEDS: NYSTATIN 100,000 U/GM PWD 15 GM BTL TOPICAL SCH ×2 (09:00→21:17)
--- NOTE | 2016-10-07 09:52 | HHI.PR ---
Subjective Remarks Follow-up for enterocutaneous fistula. Patient was taken off of TPN yesterday. She states she is eating her meals. Objective Vitals Vital Signs Date Time Temp Pulse Resp B/P Pulse Ox O2 Delivery O2 Flow Rate FiO2 10/07/16 08:00 98.6 107 18 116/63 95 10/06/16 20:00 97.7 107 18 97/62 94 I/O 10/06/16 10/06/16 10/06/16 10/07/16 10/07/16 10/07/16 06:59 14:59 22:59 06:59 14:59 22:59 Intake Total 1400 ml 420 ml 360 ml 480 ml Output Total 675 ml Balance 725 ml 420 ml 360 ml 480 ml Intake Oral 420 ml 360 ml 480 ml TPN/PPN 1400 ml Output Urine Total 500 ml Drainage Total 175 ml # Voids 2 3 5 3 # Bowel Movements 2 4 1 Result Diagram: 10/07/16 0705 Objective Remarks GENERAL: Pleasant well-developed patient in no apparent distress. RESPIRATORY: RR normal. GASTROINTESTINAL: Abdomen soft, non-distended, "sore" over the right side. MUSCULOSKELETAL: LLE stump without swelling or erythema. NEUROLOGICAL: Awake and alert. Normal speech. PSYCHIATRIC: Pleasant mood and affect. Procedures Left stump debridement by Dr. 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 (5) Hypercoagulable state ICD Code: D68.59 Status: Chronic (6) HTN (hypertension) ICD Code: I10 Status: Chronic (7) Anxiety about health ICD Code: F41.8 Status: Chronic (8) Diarrhea ICD Code: R19.7 Status: Chronic (9) Severe protein-calorie malnutrition ICD Code: E43 Status: Chronic (10) Fungal skin infection ICD Code: B36.9 Status: Resolved (11) Transient lingual papillitis ICD Code: K14.0 Status: Resolved (12) Hospital acquired PNA ICD Code: J18.9 Status: Resolved (13) Major depressive disorder, recurrent severe without psychotic features ICD Code: F33.2 Status: Chronic (14) Disseminated herpes zoster ICD Code: B02.7 Status: Resolved (15) Hypokalemia ICD Code: E87.6 Status: Resolved (16) Prerenal azotemia ICD Code: R79.89 Status: Acute Assessment and Plan 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 Olvera, did bedside debridement of preperitoneal fat that was protruding from the fistula 09/10 Dr. Olvera, reevaluated the patient because the fistula opened back up and was draining stool. He indicates that the fistula opens and closes at least 5 times since September. She is not a candidate for surgery due to malnutrition, short bowel syndrome and anatomic considerations, damage to the remainder small bowel and likely of the patient. Recommending conservative management of the fistula Surgeon gave specific wound care management to nursing staff to follow Wound care nurse consulted regarding fistula dressings. I spoke with Gabriela, hammer driver on 10/04. She states patient has 3 stomatized fistulas. She removed the large wound substation manager on patient's abdomen and encrusted periwound with stoma powder and skin barrier film. Applied eakins seal between fistulas and applied stoma paste to proximal and distal ends to seal. Applied bag with adhesive backing. -Dr. Olvera has consulted Dr. Clayton for second opinion, pending. Malnutrition: Severe protein-calorie malnutrition, improving C diff negative. TPN for nutritional support Continue Nutritional supplements Continue to monitor weight. Dietitian consulted who indicated that weight loss may be due to inaccurate ins and outs, still recommending current TPN, lipids. Encourage by mouth intake , nutritional supplements. Front Office Developer following. Pre-albumin is improved I spoke with risk professional regarding TPN discontinuation as patient is eating 75- 100% of her meals. The only concern is whether she would get adequate nutrition without TPN if she has absorption issues due to short bowel syndrome. Dr. sanchez and I spoke with Dr. Olvera in regards to stopping TPN as patient is eating meals. He was agreeable to stopping TPN and seeing how patient does off of it. TPN was discontinued on 10/06. Diarrhea-likely secondary to short gut syndrome: Chronic Continue Imodium, Lomotil prn. C. difficile testing 08/23 negative 10/07 electrolytes normal. Sepsis: Resolved Likely secondary to recurrent enterocutaneous fistula Urine culture did not indicate any infection Leukocytosis has improved Prerenal azotemia: Improving. 10/07 BUN 28. Could be secondary to TPN, poor by mouth intake. Patient counseled on increase of by mouth fluid intake Continue to monitor renal function periodically. Pain control: Patient indicates amputated limb pain is not being controlled. Ibuprofen 400 mg every 8 hours as needed for pain 15 Tramadol 50 mg every 8 hours as needed for pain 610 Cymbalta 30 mg daily Neurontin 300 mg TID Deconditioning Continue PT/OT during the patient's stay in the hospital Emphasized the patient the need to get out of bed multiple times throughout the day Still awaiting [employer] for bed trapeze to improve strength, transferring for ambulation; awaiting prosthetic. Hypertension: Stable Cardizem CD 240 mg daily Lisinopril 40 mg daily Staph Hominis bacteremia: S/p treatment ID following, Dr. Greenfield. Continue Vancomycin for Staph hominis, give 4 weeks , finished treatment 08/13 Continue Invanz for the Morganella in UC, finished treatment 08/13 Infected left BKA stump: Resolved. 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 Dr. Sergio kuo. S/P debridement- dry. Wound cultures grew Klebsiella ESBL positive and Morganella; finished treatment with zerbaxa Wound right great toe: Resolved No signs of acute infection at this time Rash:Improved. Unusual appearance and presentation, neg for herpes, biopsy inconclusive. Possibly related to zinc deficiency. - Zinc could not be added to TPN per pharmacy; on oral zinc sulfate replacement. - Continue zinc oxide paste to buttock - Zinc level normal at 61, recheck monthly. Possible tinea R leg: Improved. -S/p Clotrimazole cream x 2 weeks. Hypercoagulable state: Chronic and stable History of ischemic bowel and severe peripheral vascular disease. Continue Xarelto Anxiety and depression: Stable Continue Seroquel and Zoloft. Continue Remeron. COPD: Stable. Patient with good O2 sats on room air Patient has not required any breathing treatments Continue IS. Pulmonary nodule. Repeat CT recommended in 6 mos. Patient previously counseled about this finding and the need to follow-up. GI protection secondary for prolonged hospitalization Protonix DVT prevention Xarelto Discharge Planning PT and OT recommend rehab. Patient could not be placed until TPN is discontinued. [facility] is out of network. Patient apparently wishes to return home with spouse when discharged. She does have a neighbor who helps she and her and can be there when needed. Problem Qualifiers (1) HTN (hypertension): Qualified Code: I10 - Essential hypertension (2) Diarrhea: Qualified Code: R19.7 - Diarrhea, unspecified type Kathy Parmar Oct 07, 2016 09:52 (2) Diarrhea: Qualified Code: R19.7 - Diarrhea, unspecified type Kathy Parmar Oct 07, 2016 09:52
[2016-10-07] MEDS: PANTOPRAZOLE SOD 20 MG DELAYED RELEASE TAB PO SCH ×2 (10:35→21:16)
[2016-10-07] MEDS: DULoxetine HCl DR 30 MG CAP PO SCH (10:35)
[2016-10-07] MEDS: MEGESTROL ACETATE SUSP 400 MG/10 ML CUP PO SCH (10:35)
[2016-10-07] MEDS: LACTOBACILLUS ACIDOPHILUS TAB PO SCH ×3 (10:35→17:58)
[2016-10-07] MEDS: CALCITRIOL 0.25 MCG CAP PO SCH (10:36)
[2016-10-07] MEDS: ZINC SULFATE 220 MG CAP PO SCH (10:36)
[2016-10-07] MEDS: FERROUS SULFATE 325 MG (65 MG ELEMENTAL IRON) TAB PO SCH (10:36)
[2016-10-07] MEDS: SERTRALINE HCL 100 MG TAB PO SCH (10:36)
[2016-10-07] MEDS: GABAPENTIN 300 MG CAP PO SCH ×3 (10:36→17:58)
[2016-10-07] MEDS: LOPERAMIDE HCL 2 MG CAP PO PRN ×2 (10:37→22:03)
[2016-10-07] MEDS: DILTIAZEM-CD 240 MG CAP ER PO SCH (10:37)
[2016-10-07] MEDS: RIVAROXABAN 20 MG TAB PO SCH (10:37)
[2016-10-07] MEDS: MULTIVITAMIN TAB PO SCH (10:37)
[2016-10-07] MEDS: LISINOPRIL 20 MG TAB PO SCH (10:37)
[2016-10-07] MEDS: DIPHENOXYLATE/ATROPINE 2.5 MG/0.025 MG TAB PO PRN (13:46)
[2016-10-07 20:00] VITALS: BP 119/63; PULSE 103; RESP 18; TEMP 98.6; O2SAT 96
[2016-10-07] MEDS: MIRTAZAPINE ODT 15 MG TAB PO SCH (21:16)
[2016-10-07] MEDS: traMADol HCL 50 MG TAB PO PRN (22:03)
[2016-10-07] MEDS ORDERED: ALPRAZolam 0.25 MG TAB PO ONE (22:30)
[2016-10-07] MEDS: ONDANSETRON ODT 4 MG TAB PO PRN (22:41)
[2016-10-08] VITALS (15 sets, daily range): BP systolic 77–129; BP diastolic 39–65; PULSE 106–114; RESP 20–34; TEMP 96.6–97.4; O2SAT 93–100
[2016-10-08] MEDS: IBUPROFEN 400 MG TAB PO PRN (02:22)
--- NOTE | 2016-10-08 04:59 | MB ---
cc: CARLOS EDUARDO AZUL SLOBODAN, MD DATE OF CONSULTATION: 10/07/16 REQUESTING PHYSICIAN: Dr. Olvera REASON FOR CONSULTATION: Second opinion regarding cutaneous fistula. HISTORY OF PRESENT ILLNESS The patient is a 71-year-old female with a complicated past medical and surgical history, currently [facility]. The patient has a past medical history significant for asthma, depression, COPD, peripheral vascular disease and coronary artery disease. The patient underwent resection for ischemic bowel in late 2014 which is complicated by enterocutaneous fistula which is now chronic and being treated conservatively. The patient also, in late 2015, developed severe peripheral vascular disease status post left below-knee amputation. She currently is on TPN until just very recently between 200 cc of one liter of output per day from midline fistula wound. This was being treated with an ostomy appliance. The patient also states she has regular bowel movements but these are mostly loose, however, she does occasionally have formed bowel movements and passes flatus per rectum. The patient has very little pain although is on p.r.n. pain medications. The patient states that overall she has lost a substantial amount of weight since her original surgery but states her weight has been stable since this hospitalization. She is now on TPN. The patient denies any neurologic symptoms, denies any chest pain, shortness of breath, any new abdominal symptoms, any neurologic symptoms, fevers, chills, night sweats. The patient does tolerate any form of diet with no nausea, vomiting, or reflux symptoms. The patient does state that within a few minutes after eating, she has output from her fistula of partially digested food. REVIEW OF SYSTEMS A 10 point review of systems was conducted with the patient and is negative except for the pertinent positives mentioned above in the history of present illness. PAST SURGICAL HISTORY As above. ALLERGIES LEVAQUIN, PENICILLIN, SULFA. MEDICATIONS 1. Xanax 2. Neurontin. 3. Cardizem 4. Cymbalta. 5. Loperamide p.r.n. 6. Zinc. 7. Tramadol p.r.n. 8. Lomotil p.r.n. 9. Motrin. 10. Lisinopril. 11. Megace. 12. Zoloft. 13. Protonix. SOCIAL HISTORY The patient quit smoking after her first surgery. Denies tobacco or drug use. She has resided in the hospital for a significant portion of 2015. She is . Her lives locally. FAMILY HISTORY: Noncontributory PHYSICAL EXAMINATION: VITAL SIGNS: Temperature 98.6 degrees, heart rate 103, blood pressure 119/63. O2 saturation 96%. GENERAL: The patient is a 71 year-old female, chronically ill-appearing in the hospital bed. Head: Normocephalic, atraumatic. Pupils round and reactive to light and accommodation. Sclerae is anicteric. Mucous membranes are moist. Skin is warm, dry, pale. Lungs: Clear to auscultation bilaterally. Nonlabored breathing pattern. Heart: Regular rate and rhythm. No murmurs. Extremities: Trace edema. Patient has a left below-knee amputation with well-healed stump. Abdomen: Soft, nondistended. No peritonitis, no rebound or guarding. Midline reveals ostomy stoma in place with multiple areas of midline fistula with visible mucosa in the wound site. Neurologic: The patient is awake, alert, appropriate, oriented x4. Insight and judgment are intact. Mood seems depressed. lessen bilaterally. Nonlabored breathing pattern. LABORATORY VALUES: Hemoglobin is 9.6, INR is 1.2. Albumin 2.9. ASSESSMENT/PLAN The patient is a 71-year-old female with multiple medical comorbidities, poor performance status and malnutrition with chronic enterocutaneous fistula, short gut syndrome, with chronic malnutrition. The patient has a relatively proximal enterocutaneous fistula, however, this has not been exactly studied with small bowel follow-through to elicit the exact location. Proximal fistulas with relatively high volume have more physiologic derangement are less likely to heal. Also the patient with mucosa in the wound, likely this will not epithelialize due to presence of mucosa as well. The patient likely has short gut, however, due to the formation of semisolid stool, the patient may adapt with bowel continuity to maintain hydration orally, however, this is uncertain as it is unclear exactly how much small bowel and colon remain. I discussed with the patient that her fistula is very unlikely to close without surgery and the patient's options include continued wound and ostomy care for her fistula with likely lifetime TPN supplementation versus operative intervention for attempt at fistula closure. Any operative intervention will be at significant increased risk, and this was explained to the patient as well, and would have the risk of refistulization and would only be performed in an elective setting with nutrition and preoperative performance optimized prior to any attempt at surgical repair of her chronic fistula. She states that she understands this concept as well. I also discussed referral to a tertiary center, however, the patient would like to stay locally due to her family support and pursue any options locally. At this point in time, the patient is undergoing a trial of oral intake only for nutrition in an attempt to wean off TPN. If the patient decides to pursue surgical options, I would recommend restarting TPN and performing physical therapy in an attempt to optimize the patient's performance status and nutrition prior to any attempt at reoperation several weeks in the future. We will discuss my recommendations with the patient's surgeon, Dr. Olvera as well. Thank you very much for this consultation. I will sign off but be available for any future assistance I may provide to this patient. MD YVROSE Seymour/ROSHAN /11:34 PM /3:52 AM
[2016-10-08] MEDS: ALPRAZolam 0.25 MG TAB PO SCH ×4 (06:00→22:00)
[2016-10-08] MEDS: ONDANSETRON ODT 4 MG TAB PO PRN (06:55)
[2016-10-08] MEDS: NYSTATIN 100,000 U/GM PWD 15 GM BTL TOPICAL SCH ×2 (09:00→21:00)
[2016-10-08] MEDS: SODIUM CHLORIDE 0.9% FLUSH 5 ML FLUSH IV FLUSH SCH (09:00)
[2016-10-08] MEDS: LISINOPRIL 20 MG TAB PO SCH (09:00)
--- NOTE | 2016-10-08 09:49 | HHI.PR ---
Subjective Remarks Follow-up for enterocutaneous fistula. Dr. Clayton evaluated the patient yesterday as a second opinion regarding possible surgery. I was informed by RN that the patient was vomiting overnight. The patient states she doesn't feel well admitting to generalized fatigue and weakness. Admits to nonbloody emesis overnight, attributing it to "nerves". The patient did receive one-time dose of Xanax this morning for anxiety. Objective Vitals Vital Signs Date Time Temp Pulse Resp B/P Pulse Ox O2 Delivery O2 Flow Rate FiO2 10/08/16 08:00 96.6 107 24 77/54 94 10/07/16 20:00 98.6 103 18 119/63 96 I/O 10/07/16 10/07/16 10/07/16 10/08/16 10/08/16 10/08/16 06:59 14:59 22:59 06:59 14:59 22:59 Intake Total 480 ml 870 ml 780 ml Balance 480 ml 870 ml 780 ml Intake Oral 480 ml 870 ml 780 ml # Voids 3 4 3 # Bowel Movements 1 4 1 1 Result Diagram: 10/07/16 0705 Imaging Objective Remarks GENERAL: Well-developed patient in no apparent distress but appears unwell, lying supine. CARDIOVASCULAR: Heart rate approximately 120 bpm with normal rhythm. RESPIRATORY: Limited anterior exam. Clear to auscultation bilaterally. RR normal. GASTROINTESTINAL: Normoactive bowel sounds auscultated on the left. Small amount of watery stool noted in the ostomy bag. Mildly tender over the right and left abdomen stating it feels "sore", non-specific. Abdomen soft, non- distended. No guarding. MUSCULOSKELETAL: No edema of RLE. NEUROLOGICAL: Awake and alert. Normal speech. PSYCHIATRIC: Depressed mood and affect. Procedures Left stump debridement by Dr. Hill on 06/15/16 Bedside debridement of preperitoneal fat that was protruding from the abdominal fistula 09/01/16 Urinary Catheter: No Vascular Central Line Catheter: Yes Assessment to: Continue Date of Insertion: Jun 20, 2016 Side: Left Reason for Continuation TPN A/P Problem List: (1) Septic shock ICD Code: A41.9 Status: Acute (2) Ischemic colon ICD Code: K55.9 Status: Acute (3) ZIA (acute kidney injury) ICD Code: N17.9 Status: Acute (4) Hypomagnesemia ICD Code: E83.42 Status: Acute (5) Elevated LFTs ICD Code: R94.5 Status: Acute (6) UTI (urinary tract infection) ICD Code: N39.0 Status: Resolved (7) Infection of amputation stump ICD Code: T87.40 Status: Resolved (8) 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 (9) Hypercoagulable state ICD Code: D68.59 Status: Chronic (10) HTN (hypertension) ICD Code: I10 Status: Chronic (11) Anxiety about health ICD Code: F41.8 Status: Chronic (12) Diarrhea ICD Code: R19.7 Status: Chronic (13) Severe protein-calorie malnutrition ICD Code: E43 Status: Chronic (14) Fungal skin infection ICD Code: B36.9 Status: Resolved (15) Transient lingual papillitis ICD Code: K14.0 Status: Resolved (16) Hospital acquired PNA ICD Code: J18.9 Status: Resolved (17) Major depressive disorder, recurrent severe without psychotic features ICD Code: F33.2 Status: Chronic (18) Disseminated herpes zoster ICD Code: B02.7 Status: Resolved (19) Hypokalemia ICD Code: E87.6 Status: Resolved Assessment and Plan Septic shock: Acute. WBC 54.8. Temperature 96.6 degrees. Tachycardic with heart rate ~120 on exam. BP 77/54. ZIA with Cr 2.7. Lactic acid 10.3. Glucose 118. Suspected source of infection: Bowel. Patient has had vomiting. Lipase normal. -IVNS: 2L bolus ordered at 1000 mL/hr followed by 300 mL/hr. -Blood cultures x 2 pending -Coags -UA -Hamlin catheter to be placed. Monitor Intake & Output -Vancomycin and Zosyn as directed -CT abdomen/pelvis -Telemetry; vital signs q1hr for now -Transfer to O ICU -Dilaudid prn pain as directed -Alternate Zofran and Reglan for n/v; Hold po Zofran -ID consult -Hold anti-hypertensives -Levophed prn per protocol ZIA: Acute. BUN/Cr 40/2.7 with GFR of 17. Patient initially only had prerenal azotemia thought to be secondary to TPN and poor oral intake, and azotemia was improved as of yesterday with BUN of 28 prior to ZIA which developed today. -Avoid nephrotoxins -IV hydration -Recheck renal function tomorrow. Hypomagnesemia: Mg 1.3 -2 g IV Magnesium sulfate ordered. -Monitor and replete as needed. Elevated LFTs: AST 95, ALT 77, and alkaline phosphatase 204, previously within normal limits. -Monitor LFTs. 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 Olvera, did bedside debridement of preperitoneal fat that was protruding from the fistula 09/10 Dr. Olvera, reevaluated the patient because the fistula opened back up and was draining stool. He indicates that the fistula opens and closes at least 5 times since September. She is not a candidate for surgery due to malnutrition, short bowel syndrome and anatomic considerations, damage to the remainder small bowel and likely of the patient. Recommending conservative management of the fistula Surgeon gave specific wound care management to nursing staff to follow Wound care nurse consulted regarding fistula dressings. I spoke with Gabriela, slice cutting machine operator on 10/04. She states patient has 3 stomatized fistulas. She removed the large wound manager information on patient's abdomen and encrusted periwound with stoma powder and skin barrier film. Applied eakins seal between fistulas and applied stoma paste to proximal and distal ends to seal. Applied bag with adhesive backing. -Dr. Olvera has consulted Dr. Clayton for second opinion. Per Dr. Clayton, if patient desires to pursue surgical option he recommends restarting TPN and performing physical therapy to optimize patient's performance and nutritional status prior to reoperation several weeks from now. Tertiary center was recommended, but patient prefers to stay local. The other option would be continued wound care with fistula unlikely to close and lifetime TPN supplementation required. Patient expresses to me that she desires surgery. Malnutrition: Severe protein-calorie malnutrition, improving C diff negative. TPN for nutritional support Continue Nutritional supplements Continue to monitor weight. Dietitian consulted who indicated that weight loss may be due to inaccurate ins and outs, still recommending current TPN, lipids. Encourage by mouth intake , nutritional supplements. Frame Nailer following. Pre-albumin is improved I spoke with induction coordination engineer regarding TPN discontinuation as patient is eating 75- 100% of her meals. The only concern is whether she would get adequate nutrition without TPN if she has absorption issues due to short bowel syndrome. Dr. Rivers and I spoke with Dr. Olvera in regards to stopping TPN as patient is eating meals. He was agreeable to stopping TPN and seeing how patient does off of it. TPN was discontinued on 10/06, but restarted today per Dr. Clayton's recommendation as patient desires future surgery. Diarrhea-likely secondary to short gut syndrome: Chronic Continue Imodium, Lomotil prn. C. difficile testing 08/23 negative Hypertension: Patient hypotensive today. Hold medications below. Cardizem CD 240 mg daily Lisinopril 40 mg daily Pain control: Patient indicates amputated limb pain is not being controlled. Morphine causes hallucinations. Ibuprofen 400 mg every 8 hours as needed for pain 15 Tramadol 50 mg every 8 hours as needed for pain 610 Cymbalta 30 mg daily Neurontin 300 mg TID Deconditioning Continue PT/OT during the patient's stay in the hospital Emphasized the patient the need to get out of bed multiple times throughout the day Still awaiting [employer] for bed trapeze to improve strength, transferring for ambulation; awaiting prosthetic. Staph Hominis bacteremia: S/p treatment ID following, Dr. Greenfield. Continue Vancomycin for Staph hominis, give 4 weeks , finished treatment 08/13 Continue Invanz for the Morganella in UC, finished treatment 08/13 Infected left BKA stump: Resolved. 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 Dr. Sergio kuo. S/P debridement- dry. Wound cultures grew Klebsiella ESBL positive and Morganella; finished treatment with zerbaxa Wound right great toe: Resolved No signs of acute infection at this time Rash:Improved. Unusual appearance and presentation, neg for herpes, biopsy inconclusive. Possibly related to zinc deficiency. - Zinc could not be added to TPN per pharmacy; on oral zinc sulfate replacement. - Continue zinc oxide paste to buttock - Zinc level normal at 61, recheck monthly. Possible tinea R leg: Improved. -S/p Clotrimazole cream x 2 weeks. Hypercoagulable state: Chronic and stable History of ischemic bowel and severe peripheral vascular disease. Continue Xarelto Anxiety and depression: Stable Continue Seroquel and Zoloft. Continue Remeron. COPD: Stable. Patient with good O2 sats on room air Patient has not required any breathing treatments Continue IS. Pulmonary nodule. Repeat CT recommended in 6 mos. Patient previously counseled about this finding and the need to follow-up. GI protection secondary for prolonged hospitalization Protonix DVT prevention Xarelto Addendum: On initial evaluation, patient was feeling unwell with mild abdominal soreness ( which is not new) and complained of generalized weakness. She was noted to be significantly hypotensive at 77/54 with MAP of 62, but appeared stable clinically. She met SIRS criteria but there was no suspected source of infection on initial evaluation and patient is chronically tachycardic. 2L bolus of IVF was ordered along with stat CBC w/diff, BMP, and Mg level. ~1030: I was called by Tamar HAQ informing me that the patient was continuing to vomit and she also appeared in distress. Dr. Rivers and I went upstairs and evaluated the patient. The patient admits to lightheadedness and dizziness. She denies any chest pain or shortness of breath. She complains of pain around the fistula site. She appears pale and is now diaphoretic. She has generalized abdominal tenderness on exam. Vomitus is noted in basin at bedside, brown and watery likely from chocolate Ensure the patient drank, but no coffee-ground appearance. Patient appeared in significant pain, which was not apparent earlier. Cosmetic Dentist had come up to the floor around this time and was instructed to obtain labs previously ordered as well as lactic acid and blood cultures. Transfer order for PO ICU placed. Code status confirmed as Full code. 1052: Manual BP obtained 118/58. No need for pressors at this time. Patient was sent for immediate CT with IV contrast (based on yesterday's BMP which had normal Cr) to rule out new ischemic bowel or evaluate for infection. BMP resulted later on revealing ZIA. CT was called to switch study to without contrast but patient had already received scan with contrast. She is to continue on high rate IVF. Will monitor renal function. Amendments including new diagnoses made to plan above after second evaluation of patient. 1235: RN called me stating that she was informed by radiologist that patient's CT shows ischemic bowel with air. I immediately informed Dr. Rivers, attending. 1244: We spoke with Dr. Reina covering for Dr. Clayton who was likely going to be performing future surgery regarding fistula. Dr. Reina informed us to call Dr. Olvera as he has performed surgery on patient in the past. 1247: Dr. Rivers spoke with Dr. Hill informing him of ischemic bowel. [facility] Stat transfer order placed for [facility] [place] [place] ICU. We [facility]. She was informed surgery is high risk and is informed that she is at risk of bad outcome with and without surgery. Discharge Planning PT and OT recommend rehab. Patient apparently wishes to return home with spouse when discharged. She does have a neighbor who helps she and her and can be there when needed. Problem Qualifiers (1) HTN (hypertension): Qualified Code: I10 - Essential hypertension (2) Diarrhea: Qualified Code: R19.7 - Diarrhea, unspecified type Kathy Parmar Oct 08, 2016 09:49 Elen Rivers DO Oct 08, 2016 19:43
[2016-10-08] MEDS ORDERED: SODIUM CHLOR 0.9% 1000 ML INJ 1,000 ML IV SCH ×2 (10:00→12:00)
[2016-10-08] MEDS: MEGESTROL ACETATE SUSP 400 MG/10 ML CUP PO SCH (10:09)
[2016-10-08] MEDS: LACTOBACILLUS ACIDOPHILUS TAB PO SCH ×3 (10:10→18:00)
[2016-10-08] MEDS: LOPERAMIDE HCL 2 MG CAP PO PRN (10:10)
[2016-10-08] MEDS: FERROUS SULFATE 325 MG (65 MG ELEMENTAL IRON) TAB PO SCH (10:10)
[2016-10-08] MEDS: SODIUM CHLOR 0.9% 1000 ML INJ 1,000 ML IV SCH ×4 (10:10→22:09)
[2016-10-08] MEDS: MAGNESIUM OXIDE 400 MG TAB PO SCH (10:10)
[2016-10-08] MEDS: ZINC SULFATE 220 MG CAP PO SCH (10:10)
[2016-10-08] MEDS: GABAPENTIN 300 MG CAP PO SCH ×3 (10:10→18:00)
[2016-10-08] MEDS: DILTIAZEM-CD 240 MG CAP ER PO SCH (10:10)
[2016-10-08] MEDS: RIVAROXABAN 20 MG TAB PO SCH (10:11)
[2016-10-08] MEDS: CALCITRIOL 0.25 MCG CAP PO SCH (10:11)
[2016-10-08] MEDS: SERTRALINE HCL 100 MG TAB PO SCH (10:11)
[2016-10-08] MEDS: DULoxetine HCl DR 30 MG CAP PO SCH (10:11)
[2016-10-08] MEDS: CALCIUM/VITAMIN D 250 MG/125 U TAB PO SCH ×2 (10:11→21:00)
[2016-10-08] MEDS: MULTIVITAMIN TAB PO SCH (10:12)
[2016-10-08] MEDS: DIPHENOXYLATE/ATROPINE 2.5 MG/0.025 MG TAB PO PRN (10:12)
[2016-10-08] MEDS: PANTOPRAZOLE SOD 20 MG DELAYED RELEASE TAB PO SCH (10:12)
[2016-10-08] MEDS ORDERED: METOCLOPRAMIDE HCL 10 MG/2 ML VIAL IV PUSH PRN (10:45)
[2016-10-08 10:55] LABS: AUTOMATED NEUTROPHIL # 53.4 TH/MM3 (1.8-7.7); BASOPHIL # 0.1 TH/MM3 (0-0.2); BASOPHIL % 0.2 % (0.0-2.0); HEMATOCRIT 31.1 % (35.0-46.0); LYMPH % 1.9 % (9.0-44.0); MEAN CELL VOLUME 90.8 FL (80.0-100.0); MEAN CORPUSCULAR HEMOGLOBIN 30.5 PG (27.0-34.0); MEAN CORPUSCULAR HGB CONC 33.6 % (32.0-36.0); MONO % 0.5 % (0.0-8.0); NEUT % 97.4 % (16.0-70.0); PLATELET COUNT 477 TH/MM3 (150-450); RED BLOOD COUNT 3.43 MIL/MM3 (4.00-5.30); RED CELL DISTRIBUTION WIDTH 15.7 % (11.6-17.2); WHITE BLOOD COUNT 54.8 TH/MM3 (4.0-11.0)
[2016-10-08 10:58] LABS: HEMO FLAGS AUTO DIFF
[2016-10-08 11:11] LABS: POTASSIUM 4.1 MEQ/L (3.5-5.1)
[2016-10-08] MEDS ORDERED: TERBUTALINE INJ 1 MG/ML AMP SQ PRN ×2 (11:15→20:15)
[2016-10-08] MEDS ORDERED: PIPERACIL-TAZO 4.5 GM PREMIX 100 ML IV SCH (11:15)
[2016-10-08 11:20] LABS: BICARBONATE 11.2 MEQ/L (21.0-32.0); MAGNESIUM 1.3 MG/DL (1.5-2.5)
[2016-10-08 11:24] LABS: BANDS 44 % (0-6); NEUTROPHIL # MANUAL DIFF 53.2 TH/MM3 (1.8-7.7); POLYS (SEG NEUTROPHILS) 53 % (16-70); SCAN/DIFF FINAL DIFF MANUAL; WBC DIFF SAMPLE 100
[2016-10-08] MEDS ORDERED: IOHEXOL 350 MG/ML 10 ML VIAL (for RAD DIAG) IV ONE (11:28)
[2016-10-08] MEDS ORDERED: PHENYLEPH/NS 1000 MCG/10 ML SYR IV ONE (12:00)
[2016-10-08] MEDS ORDERED: PROPOFOL 200 MG/20 ML AMP IV ONE (12:00)
[2016-10-08] MEDS: MAGNESIUM SULFATE 1 GM PREMIX 100 ML IV SCH ×2 (12:00→13:00)
[2016-10-08] MEDS ORDERED: NORMOSOL R INJ 4,000 ML IV ONE (12:00)
[2016-10-08] MEDS ORDERED: MORPHINE SULFATE 4 MG/ML INJ IV PUSH ONE (12:00)
[2016-10-08] MEDS ORDERED: CEFEPIME INJ 2,000 MG in SODIUM CHLORIDE 0.9% INJ 100 ML IV SCH (12:00)
[2016-10-08] MEDS ORDERED: NOREPINEPHRINE-DEXTROSE DRIP 250 ML IV SCH ×2 (12:00→20:15)
[2016-10-08] MEDS ORDERED: HYDROmorphone HCL PF 1 MG/ML VIAL IV PUSH PRN (12:00)
[2016-10-08] MEDS: ONDANSETRON HCL 4 MG/2 ML VIAL IV PUSH PRN (12:07)
--- NOTE | 2016-10-08 12:37 | RADHPO ---
EXAM DATE/TIME: 10/08/2016 11:14 [facility] COMPARISON: CT ABDOMEN & PELVIS W CONTRAST, March 10, 2016, 21:00. INDICATIONS : Evaluate for ischemic bowel. IV CONTRAST: 85 cc Omnipaque 350 (iohexol) IV ORAL CONTRAST: No oral contrast ingested. RADIATION DOSE: 15.27 CTDIvol (mGy) MEDICAL HISTORY : Carcinoma, breast. Gastroesophageal reflux disease. SURGICAL HISTORY : Hysterectomy. ENCOUNTER: Initial ACUITY: 1 day PAIN SCALE: 7/10 LOCATION: Bilateral abdomen TECHNIQUE: Volumetric scanning of the abdomen and pelvis was performed. Using automated exposure control and ad justment of the mA and/or kV according to patient size, radiation dose was kept as low as reasonably achievable to obtain optimal diagnostic quality images. FINDINGS: LOWER LUNGS: 6 mm nodular density in the posterior left lower lobe unchanged. LIVER: Status post cholecystectomy. Liver is homogeneous and within normal limits. SPLEEN: Spleen is small but unchanged PANCREAS: Within normal limits. KIDNEYS: Kidneys are lobulated with areas of cortical scarring. No significant interval change. No hydronephro sis. ADRENAL GLANDS: Within normal limits. VASCULAR: Diffuse aortic calcification. 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 The proximal celiac and proximal FANTA are patent. BOWEL/MESENTERY: Severe distention of the stomach. This finding is new. Postsurgical findings are again noted with sonya dence of partial colectomy. Small bowel-colonic anastomosis appears to be at the point of the mid tra nsverse colon. There is extensive bowel wall pneumatosis of the transverse colon beginning at its mile gin at the mid transverse colon and extending approximately 10 cm. Adjacent small extraluminal gas bu bbles are seen that may be small amount of free air or within the portal venous system. There is evid ence of a fistula extending from the area of small bowel-colonic anastomosis to the anterior abdomina l wall. Superficial gas and fluid collection is seen midline anterior abdominal wall extending to the anterior skin surface. RETROPERITONEUM: There is no lymphadenopathy. BLADDER: 1.3 cm calculus in the posterior right aspect of the urinary bladder. REPRODUCTIVE: Within normal limits. INGUINAL: There is no lymphadenopathy or hernia. MUSCULOSKELETAL: Within normal limits for patient age. CONCLUSION: 1. Findings very suspicious for ischemic colon. Postsurgical findings with evidence of prior colecto my. There is evidence of bowel wall pneumatosis of the transverse colon in the region of anastomosis. Adjacent small bubbles of extraluminal gas but may be within the portal venous system or free also n oted. These findings are highly suspicious for ischemic colon. Fistula is also seen connecting this a ashley of bowel to the anterior skin surface. 2. Marked nonspecific distention of the stomach. Alexandru Lynch MD on October 08, 2016 at 12:17 Board Certified Radiologist. This report was verified electronically.
[2016-10-08 12:39] LABS: INDIRECT BILIRUBIN 0.1 MG/DL (0.0-0.8); TOTAL BILIRUBIN ADULT 0.4 MG/DL (0.2-1.0)
[2016-10-08] MEDS ORDERED: VANCOMYCIN INJ 1,250 MG in SODIUM CHLOR 0.9% 250 ML INJ 250 ML IV ONE (13:00)
--- NOTE | 2016-10-08 13:12 | RADHPO ---
EXAM DATE/TIME: 10/08/2016 11:59 [facility] COMPARISON: CHEST PA & LAT, July 08, 2016, 16:26. CHEST SINGLE AP, June 17, 2016, 14:12. INDICATIONS : Short of breath. MEDICAL HISTORY : None. SURGICAL HISTORY : None. ENCOUNTER: Initial ACUITY: 1 day PAIN SCORE: 5/10 LOCATION: Bilateral chest FINDINGS: Single AP view of the chest. Left-sided Qtlhyo-t-Lzhd is in place with tip at cavoatrial junction. Li near opacity of the right midlung. Cardiac silhouette is mildly prominent but unchanged. No evidence of pleural effusion or pneumothorax. CONCLUSION: Mild right midlung opacity likely representing subsegmental atelectasis. Mild cardiac wil houette enlargement unchanged. Alexandru Lynch MD on October 08, 2016 at 13:09 Board Certified Radiologist. This report was verified electronically.
[2016-10-08] MEDS ORDERED: ONDANSETRON HCL 4 MG/2 ML VIAL IV PUSH ONE (13:14)
[2016-10-08 13:58] LABS: LACTIC ACID GHOST NOT REPORTABLE
[2016-10-08 14:22] LABS: BLOOD, URINE SMALL (NEG); GLUCOSE,URINE NEG (NEG); KETONE, URINE NEG (NEG); NITRITE,URINE NEG (NEG); PH, URINE 5.5 (5.0-8.5)
[2016-10-08 14:36] LABS: METHOD OF COLLECTION CLEAN CATCH; URINE COLOR YELLOW (YELLW/STRAW)
[2016-10-08 14:37] LABS: COMMENT (UR) CULTURE INDICATED; CULTURE IF INDICATED CULTURE INDICATED; RBC, URINE 0-3 /hpf (0-3); RENAL EPITHELIAL CELLS 0-5 /hpf; SQUAMOUS EPITHELIAL CELL URINE 0-5 /hpf (0-5); TRANSITIONAL EPI CELLS, URINE 0-5 /hpf
[2016-10-08] MEDS ORDERED: NALOXONE HCL 0.4 MG/ML AMP IV PRN (14:45)
[2016-10-08] MEDS ORDERED: Post-op Orders (for Pharmacy) MISC XX ONE (14:45)
[2016-10-08] MEDS ORDERED: PROTHROMBIN COMPLEX CONC INJ 1,500 UNITS in SYRINGE/BAG 1 EA IV ONE (15:00)
[2016-10-08] MEDS ORDERED: BUPIVACAINE/EPINEPHRINE 0.5% PF 30 ML VIAL ONE (15:00)
[2016-10-08] MEDS ORDERED: ALBUMIN HUMAN 5% 12.5 GM/250 ML BOTTLE IV ONE (15:09)
[2016-10-08] MEDS ORDERED: KETAMINE HCL 500 MG/5 ML VIAL ONE (15:12)
--- NOTE | 2016-10-08 16:16 | HHI.PR ---
Subjective Remarks Ms. Wilson is a pleasant 71 year old female who was admitted to the hospital in Oct 2015 due to ischemic bowel and subsequently underwent resection of large , small bowel and cholecystectomy. 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 Patient was discharged to SNF but returned to the hospital due to post surgical complications. She underwent left foot amputation and subsequently had a lot of post surgical complications requiring wound vac. Her surgeon (Dr. Olvera) determined that patient was too high risk for further surgical intervention. Patient was on TPN and after discussing with Dr. Hill we switched patient to PO diet two days ago. Based on patient's desires, we spoke to Dr. Hill regarding a second surgical opinion. Dr. Hill was kind enough to consult Dr. Grajeda who evaluated patient on 10/07/2016. On 10/08/2016, ANGUS Hutchinson evaluated patient in the morning. Patient had some nausea, vomiting overnight and patient reported not feeling very well. I was informed that patient's blood pressure is 77/54 with a MAP of 62. Two L of IV fluid was ordered. We went to evaluate patient and patient complained of abdominal pain, nausea, vomiting. No coffee ground emesis. Patient complained of feeling lightheaded, dizzy but no chest pain or shortness of breath. Objective Vitals Vital Signs Date Time Temp Pulse Resp B/P Pulse Ox O2 Delivery O2 Flow Rate FiO2 10/08/16 13:00 114 29 129/65 93 10/08/16 12:45 114 28 95 10/08/16 12:35 15 10/08/16 12:30 112 29 120/57 93 10/08/16 12:15 110 30 120/63 94 10/08/16 12:00 97.4 106 30 114/63 97 10/08/16 11:45 106 34 119/59 98 10/08/16 11:33 119/65 98 10/08/16 08:00 96.6 107 24 77/54 94 10/07/16 20:00 98.6 103 18 119/63 96 I/O 10/07/16 10/07/16 10/07/16 10/08/16 10/08/16 10/08/16 06:59 14:59 22:59 06:59 14:59 22:59 Intake Total 480 ml 870 ml 780 ml 3560 ml Output Total 200 ml Balance 480 ml 870 ml 780 ml 3360 ml Intake Oral 480 ml 870 ml 780 ml 210 ml IV Total 3350 ml Output Urine Total 200 ml # Voids 3 4 3 2 # Bowel Movements 1 4 1 3 Result Diagram: 10/08/16 1047 10/08/16 1047 Imaging Last Impressions Abdomen/Pelvis CT 10/08/16 1057 Signed Impressions: Service Date/Time: Saturday, October 08, 2016 11:14 - CONCLUSION: 1. Findings very suspicious for ischemic colon. Postsurgical findings with evidence of prior colectomy. There is evidence of bowel wall pneumatosis of the transverse colon in the region of anastomosis. Adjacent small bubbles of extraluminal gas but may be within the portal venous system or free also noted. These findings are highly suspicious for ischemic colon. 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 2. Marked nonspecific distention of the stomach. Alexandru Lynch MD Chest X-Ray 10/08/16 1042 Signed Impressions: Service Date/Time: Saturday, October 08, 2016 11:59 - CONCLUSION: Mild right midlung opacity likely representing subsegmental atelectasis. Mild cardiac silhouette enlargement unchanged. Alexandru Lynch MD Liver Ultrasound 07/12/16 0000 Signed Impressions: Service Date/Time: Tuesday, July 12, 2016 18:07 - CONCLUSION: 1. No acute abnormality demonstrated. 2. Heterogeneous liver without measurable mass. 3. Small and heterogeneous spleen without a measurable mass. 4. Cortical thinning and scarring of the right kidney. 5. Previous cholecystectomy. Calixto Woodruff MD Chest CT 07/09/16 0000 Signed Impressions: Service Date/Time: Saturday, July 09, 2016 14:43 - CONCLUSION: 1. Small right pleural effusion and minimal right basilar consolidation. 2. 6 mm left basilar nodule. Followup CT chest 6 months recommended. Florian Pepper MD Lower Extremity Ultrasound 06/25/16 0000 Signed Impressions: Service Date/Time: Saturday, June 25, 2016 15:56 - CONCLUSION: Negative exam with no evidence of deep venous thrombosis. Soft tissue edema. Mike Leija MD Port Line Insertion 06/20/16 0000 Signed Impressions: Service Date/Time: Monday, June 20, 2016 08:53 - CONCLUSION: Uncomplicated ultrasound and fluoroscopic guided implanted central venous port catheter placement as described in detail above. An 8 Bengali Power port was placed. Kevan Salgado Jr., MD Objective Remarks GENERAL: Alert, oriented x 3, In moderate distress due to abdominal pain, airway intact. SKIN: Warm and dry. HEAD: Normocephalic. EYES: No scleral icterus. No injection or drainage. NECK: Supple, trachea midline. No JVD or lymphadenopathy. Intact airway. CARDIOVASCULAR: Regular rhythm, tachycardic without murmurs, gallops, or rubs. RESPIRATORY: Breath sounds equal bilaterally. No accessory muscle use. GASTROINTESTINAL: Diffuse abdomen exquisitely tender to palpation MUSCULOSKELETAL: No cyanosis, or edema. s/p left foot amputation. Procedures Left stump debridement by Dr. Hill on 06/15/16 Bedside debridement of preperitoneal fat that was protruding from the abdominal fistula 09/01/16 Date of Insertion: Jun 20, 2016 Side: Left A/P Problem List: (1) Septic shock ICD Code: A41.9 Status: Acute (2) Ischemic colon ICD Code: K55.9 Status: Acute (3) ZIA (acute kidney injury) ICD Code: N17.9 Status: Acute (4) Hypomagnesemia ICD Code: E83.42 Status: Acute (5) Elevated LFTs ICD Code: R94.5 Status: Acute Assessment and Plan Due to patient's hypotension and later on development of distress, nausea, vomiting, abdominal pain, we went to evaluate patient around 10:30. Manual blood pressure indicated improved BP to 118/58. Patient was in moderate distress due to abdominal pain, dizziness, lightheadedness. She expressed her wish to remain full code. Our overall management included the following. Critical care was provided due to septic shock, ischemic bowel. Patient responded initial fluid well. However, lactic acid level was 10.3. Assessment: - Septic shock ( Respiration above 20, HR above 100, WBC 54.8 with 97.4% neutrophils, suspected intraabdominal infection, ischemic bowel, Acute kidney injury, elevated liver enzymes, hypotension, lactic acid 10.3 ). - Ischemic bowel. - Acute kidney injury (Creatinine 0.81 --> 2.74). - Elevated liver enzymes - Hypotension - resolved after fluid bolus. Management: - CBC, BMP, Lactic acid, Blood cultures. - CXR, CT abd/pelvis, Urinalysis. - Patient was emergently transferred to the ICU. Based on BMP results from , we obtained CT abd/pelvis with IV contrast. This was done prior to transferring patient to the ICU bed. - Broad spectrum abx were ordered - Vancomycin and Cefepime - patient is allergic to PCN (causes hives) thus Zosyn was not used. - Labs reviewed - WBC increased significantly from normal 10.6 to 54.8 with 97.4% neutrophil count. Lactic acid 10.3. BMP shows acute kidney injury ( creatinine went from 0.81 to 2.74) likely due to infection, hypoperfusion. Mild elevation in liver enzymes noted likely due to hypovolumia. - Our clinical suspicion for Ischemic bowel was high. CT scan confirmed this suspicion. We called Surgeon covering Dr. Grajeda today. Appropriately so, we were advised to discuss with Dr. Olvera who is much more familiar with this patient's clinical conditions. Shared lab results with Dr. Olvera including wbc, lactic acid and ZIA. - Patient was monitored in the ICU and blood pressure remains within reasonable range. She was given pain medication for abdominal pain. - After 2 L of NS bolus, NS @300cc/hour were started. - Standby Levophed was ordered. Patient already had a central line. - I discussed with Dr. Olvera several times and stat order was placed for the patient to be transferred to the [facility] for surgical evaluation and possibly surgical intervention - PT/INR ordered and NG tube insertion was ordered. Patient was made NPO. - We remained with patient until patient was hemodynamically stable. We also visited patient several times to address any acute concerns. - No airway compromise issue. - Patient was subsequently transferred to the [facility] Intensive surgical care unit. - We discussed with patient about overall poor prognosis with and without surgery. Patient verbalized understanding. - I called patient's to give him an update. Unable to reach, I left my cell phone number for him to call me back. Patient remains in full code. Poor prognosis. Total critical care time spent over 60 minutes. Elen Rivers DO Oct 08, 2016 4:16 pm
[2016-10-08 16:20] LABS: INTERNATIONAL NORMALIZED RATIO 1.2 RATIO; PROTHROMBIN TIME - PATIENT 13.8 SEC (9.8-11.6)
[2016-10-08] MEDS ORDERED: MIDAZOLAM HCL 2 MG/2 ML VIAL ONE ×3 (16:36→20:15)
--- NOTE | 2016-10-08 17:09 | RADRPT ---
EXAM DATE/TIME: 10/08/2016 15:58 [facility] COMPARISON: CHEST SINGLE AP, October 08, 2016, 11:59. INDICATIONS : Evaluate central line placement MEDICAL HISTORY : None. SURGICAL HISTORY : None. ENCOUNTER: Subsequent ACUITY: 1 day PAIN SCORE: Non-responsive. LOCATION: Bilateral chest FINDINGS: A single portable frontal view of the chest shows a right internal jugular vein central venous line. Tip projects near the cavoatrial junction. No pneumothorax. Left-sided power port noted. Linear atele ctasis within the right upper lobe. No discrete infiltrate or effusion. Surgical clips overlie the ri ght lateral chest. Heart is normal in size. CONCLUSION: Right-sided central line in good position without pneumothorax. Mild right upper lobe atelectasis. Kevan Salgado Jr., MD on October 08, 2016 at 17:07 Board Certified Radiologist. This report was verified electronically.
[2016-10-08 17:19] LABS: BLOOD GAS BASE EXCESS -16.3 mmol/L (-2-2); BLOOD GAS CARBOXYHEMOGLOBIN 1.3 % (0-4); BLOOD GAS HCO3 11 mmol/L (22-26); BLOOD GAS METHEMOGLOBIN 2.4 % (0-2); BLOOD GAS O2 HGB SATURATION 95 % (90-100); BLOOD GAS OXYGEN CONTENT 16.1 Vol % (12.0-20.0); BLOOD GAS PCO2 38 mmHg (38-42); BLOOD GAS PO2 195 mmHG (61-120); BLOOD GAS TOTAL HGB 11.8 G/DL (12.0-16.0); CRITICAL VALUE YES; STAT YES; TEMP CORR TO 98.6
[2016-10-08] MEDS ORDERED: MAGNESIUM SULFATE 1 GM PREMIX 100 ML ONE (17:31)
[2016-10-08 18:38] LABS: BLOOD GAS BASE EXCESS -17.5 mmol/L (-2-2); BLOOD GAS CARBOXYHEMOGLOBIN 1.2 % (0-4); BLOOD GAS HCO3 10 mmol/L (22-26); BLOOD GAS METHEMOGLOBIN 2.4 % (0-2); BLOOD GAS O2 HGB SATURATION 94 % (90-100); BLOOD GAS OXYGEN CONTENT 18.8 Vol % (12.0-20.0); BLOOD GAS PCO2 35 mmHg (38-42); BLOOD GAS PO2 198 mmHG (61-120); BLOOD GAS TOTAL HGB 13.9 G/DL (12.0-16.0); TEMP CORR TO 98.6
[2016-10-08 18:39] LABS: CRITICAL VALUE YES; OXYGEN DEVICE OR; STAT YES
[2016-10-08] MEDS ORDERED: PROPOFOL 1000 MG/100 ML INJ 100 ML ONE (19:51)
[2016-10-08 20:15] LABS: BLOOD GAS BASE EXCESS -18.1 mmol/L (-2-2); BLOOD GAS CARBOXYHEMOGLOBIN 0.7 % (0-4); BLOOD GAS HCO3 11 mmol/L (22-26); BLOOD GAS METHEMOGLOBIN 1.5 % (0-2); BLOOD GAS O2 HGB SATURATION 97 % (90-100); BLOOD GAS OXYGEN CONTENT 8.4 Vol % (12.0-20.0); BLOOD GAS PCO2 41 mmHg (38-42); BLOOD GAS PO2 416 mmHg (61-120); BLOOD GAS TOTAL HGB 5.4 G/DL (12.0-16.0); TEMP CORR TO 98.6
[2016-10-08 20:16] LABS: CRITICAL VALUE YES; DRAW SITE LT BRACHIAL; FIO2 100 %; NUMBER OF ARTERIAL PUNCTURES 1; OXYGEN DEVICE VENTILATOR; STAT YES; VENT SETTINGS AC/14/500/5PEEP
[2016-10-08] MEDS ORDERED: fentaNYL CITRATE 250 MCG/5 ML AMP ONE (20:16)
[2016-10-08] MEDS ORDERED: Vancomycin Consult Pharmacy 1 EA OTHER SCH (20:30)
[2016-10-08] MEDS ORDERED: VANCOMYCIN INJ 1,000 MG in SODIUM CHLOR 0.9% 250 ML INJ 250 ML IV ONE (21:00)
[2016-10-08] MEDS: SODIUM CHLORIDE 0.9% FLUSH 5 ML FLUSH IVF SCH (21:00)
[2016-10-08] MEDS: MIRTAZAPINE ODT 15 MG TAB PO SCH (21:00)
[2016-10-08] MEDS ORDERED: SODIUM BICARBONATE 8.4% INJ 50 MEQ/50 ML SYR IV ONE (21:00)
--- NOTE | 2016-10-08 21:03 | PD.CONS ---
[facility] Service Critical Care Medicine Consult Requested By Dr. Olvera Reason for Consult Critical care management postoperatively. Primary Care Physician Kathy Byrnes MD History of Present Illness Patient is presently intubated postoperatively. History obtained from Dr. Olvera and from patients chart. 71-year-old female with a past medical history of asthma, prior tobacco abuse, mesenteric ischemia with prior partial small bowel resection and right cherry-colectomy with anastomosis, severe PAD s/p BKA for gangrene of L foot. 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 Fistual was managed nonoperatively due to concern for short gut syndrome as well as surgical risk/ malnutrition. She has been on TPN. Fistula has been recurrent and has prompted several admissions. Her most recent admission 06/14/[address] Olvera due to dehiscence of BKA for which she underwent debridement and has been treated with antibiotics per ID. She has remained hospitalized at [place] while awaiting placement. On the morning of 10/08 she had become hypotensive, WBC 54 k with lactic acid 10.3. CT abd/pelvis demonstrated pneumatosis of transverse colon near site of prior anastomosis. She was transferred emergently to [facility] where she underwent emergent ex lap that demonstrated ischemia with perforation and leak. She underwent resection of ~ 5-6 inches of small bowel and transverse colon with creation of ileostomy and colostomy (for mucous fistula) with fascial closure and wound vac placement by Dr Olvera. She is chronically on Xarelto for which she was given Kcentra preoperatively; 2 units FFP in OR. She received 5 L of crystalloid intraoperatively. She remains intubated postoperatively. She is normotensive , now off low-dose levophed, but pale and underperfused appearing in need of further resuscitation. Past Family Social History Allergies: Coded Allergies: Levaquin (Verified Allergy, Severe, Edema, 05/29/16) Penicillin (Unverified Allergy, Intermediate, hives, 03/10/16) Sulfa (Unverified Allergy, Intermediate, hives, 03/10/16) *MDRO Multi-Drug Resistant Organism (Verified Adverse Reaction, Unknown, ) ESBL+Klebsiella (leg-06/15/16) Past Medical History Asthma Depression severe PAD History of mesenteric ischemia status post small bowel resection and right hemicolectomy Peripheral neuropathy GERD Enterocutaneous fistula Past Surgical History Mastectomy Left BKA, subsequent debridement Hysterectomy Right hemicolectomy and small bowel resection in October 2015 Family History Unable to obtain family history secondary to patient's clinical condition. Social History She is a former smoker who reportedly quit smoking in 2014 No history of alcohol or illicit drug use Physical Exam Vital Signs Vital Signs Date Time Temp Pulse Resp B/P Pulse Ox O2 Delivery O2 Flow Rate FiO2 10/08/16 20:20 100 60 10/08/16 16:15 124 26 118/52 99 116/54 10/08/16 16:00 125 26 125/69 100 10/08/16 15:45 117 26 132/69 100 10/08/16 15:30 127 26 133/68 97 10/08/16 15:20 Non-Rebreather 15 10/08/16 15:20 118 26 135/77 97 10/08/16 13:00 114 29 129/65 93 10/08/16 12:45 114 28 95 10/08/16 12:35 15 10/08/16 12:30 112 29 120/57 93 10/08/16 12:15 110 30 120/63 94 10/08/16 12:00 97.4 106 30 114/63 97 10/08/16 11:45 106 34 119/59 98 10/08/16 11:33 119/65 98 10/08/16 08:00 96.6 107 24 77/54 94 Physical Exam Drips: LR 200 L per hour Levophed on standby GENERAL: Critically ill and pale appearing elderly female who is orotracheally intubated SKIN: Mottled right 1st toe, delayed cap refill. HEAD: Atraumatic. Normocephalic. EYES: Pupils equal and round. No scleral icterus. . ENT: No nasal bleeding or discharge. Mucous membranes pink and moist. NECK: Trachea midline. No JVD. CARDIOVASCULAR: Regular rate and rhythm. No murmurs rubs or gallops. RESPIRATORY: No accessory muscle use. Clear to auscultation. Breath sounds equal bilaterally. GASTROINTESTINAL: Abdominal binder in place Abdomen with VERNA drain with some serosanginous drainage in left lower abdomen. R ileostomy with blood clots in bag, mucosa dusky. Colostomy on Left with blood in bag, mucosa dusky. No bowel sounds. Wound vac in place midline with serosanginous output : Hamlin in place with yellow urine output. MUSCULOSKELETAL: Extremities without clubbing, cyanosis, or edema. S/p L BKA with stump incision healed. NEUROLOGICAL: Sedated postoperatively,. (initially unresponsive to deep noxious stimuli, later in evening reassessed and moving all extremities spontaneously and following commands) Laboratory Laboratory Tests Test 10/08/16 10/08/16 10/08/16 10/08/16 10:47 11:48 12:40 15:59 White Blood Count 54.8 Red Blood Count 3.43 Hemoglobin 10.4 Hematocrit 31.1 Mean Corpuscular Volume 90.8 Mean Corpuscular Hemoglobin 30.5 Mean Corpuscular Hemoglobin 33.6 Concent Red Cell Distribution Width 15.7 Platelet Count 477 Mean Platelet Volume 7.0 Neutrophils (%) (Auto) 97.4 Lymphocytes (%) (Auto) 1.9 Monocytes (%) (Auto) 0.5 Eosinophils (%) (Auto) 0.0 Basophils (%) (Auto) 0.2 Neutrophils # (Auto) 53.4 Lymphocytes # (Auto) 1.0 Monocytes # (Auto) 0.3 Eosinophils # (Auto) 0.0 Basophils # (Auto) 0.1 CBC Comment AUTO DIFF Differential Total Cells 100 Counted Neutrophils % (Manual) 53 Band Neutrophils % 44 Lymphocytes % 1 Monocytes % 2 Neutrophils # (Manual) 53.2 Differential Comment FINAL DIFF MANUAL Sodium Level 141 Potassium Level 4.1 Chloride Level 106 Carbon Dioxide Level 11.2 Anion Gap 24 Blood Urea Nitrogen 40 Creatinine 2.70 Estimat Glomerular Filtration 17 Rate Random Glucose 118 Calcium Level 9.0 Magnesium Level 1.3 Total Bilirubin 0.4 Direct Bilirubin 0.3 Indirect Bilirubin 0.1 Aspartate Amino Transf 95 (AST/SGOT) Alanine Aminotransferase 77 (ALT/SGPT) Alkaline Phosphatase 204 Total Protein 6.8 Albumin 2.5 Lipase 275 Lactic Acid Level 10.3 Urine Collection Type CLEAN CATCH Urine Color YELLOW Urine Turbidity CLEAR Urine pH 5.5 Urine Specific [place] 1.020 Urine Protein 30 Urine Glucose (UA) NEG Urine Ketones NEG Urine Occult Blood SMALL Urine Nitrite NEG Urine Bilirubin NEG Urine Leukocyte Esterase SMALL Urine RBC 0-3 Urine WBC 9-14 Urine Squamous Epithelial 0-5 Cells Urine Transitional Epithelial 0-5 Cells Urine Renal Epithelial Cells 0-5 Urine Amorphous Sediment FEW Microscopic Urinalysis Comment CULTURE INDICATED Crossmatch Leukocyte-Reduced Red Blood Cells Blood Bank Comment Test 10/08/16 10/08/16 10/08/16 10/08/16 16:00 17:08 17:10 18:25 Prothrombin Time 13.8 Prothromb Time International 1.2 Ratio Lactic Acid Level 7.5 Blood Type A POSITIVE Antibody Screen NEGATIVE Blood Gas Puncture Site DRAWN IN OR DRAWN IN OR Blood Gas Patient Temperature 98.6 98.6 Blood Gas HCO3 11 10 Blood Gas Base Excess -16.3 -17.5 Blood Gas Oxygen Saturation 95 94 Arterial Blood pH 7.11 7.10 Arterial Blood Partial 38 35 Pressure CO2 Arterial Blood Partial 195 198 Pressure O2 Arterial Blood Oxygen Content 16.1 18.8 Arterial Blood 1.3 1.2 Carboxyhemoglobin Arterial Blood Methemoglobin 2.4 2.4 Blood Gas Hemoglobin 11.8 13.9 Blood Bank Comment Oxygen Delivery Device OR Test 10/08/16 20:05 Blood Gas Puncture Site LT BRACHIAL Blood Gas Patient Temperature 98.6 Blood Gas HCO3 11 Blood Gas Base Excess -18.1 Blood Gas Oxygen Saturation 97 Arterial Blood pH 7.04 Arterial Blood Partial 41 Pressure CO2 Arterial Blood Partial 416 Pressure O2 Arterial Blood Oxygen Content 8.4 Arterial Blood 0.7 Carboxyhemoglobin Arterial Blood Methemoglobin 1.5 Blood Gas Hemoglobin 5.4 Oxygen Delivery Device VENTILATOR Blood Gas Ventilator Setting AC/14/500/5PEEP Blood Gas Inspired Oxygen 100 Date/Time Procedure Status Source Growth 10/08/16 12:40 Urine Culture Received Urine Clean Catch Pending 10/08/16 12:20 Aerobic Blood Culture Received Blood Peripheral Pending 10/08/16 12:20 Anaerobic Blood Culture Received Blood Peripheral Pending Result Diagram: 10/08/16 1047 10/08/16 1047 Septic Shock Reassessment Heart: Regular rate and rhythm Lungs: Clear Skin: Cold Peripheral Pulses: Weak Right Radial Weak Left Radial Weak Right Popliteal Weak Left Popliteal Weak Right Posterior Tibial Absent Right Dorsalis Pedis Absent Left Dorsalis Pedis Absent Left Posterior Tibial Capillary Refill: Sluggish Assessment and Plan Assessment and Plan NEURO: Depression Peripheral neuropathy Propofol for sedation Daily sedation vacation Goal RASS -2. RESP: Acute respiratory failure, respiratory acidosis COPD Ventilator bundle. Currently on ACV tidal volume 500/rate 20/P5/FiO2 60% with sats 100%. (rate was increased from 14 due to respiratory acidosis) Will We'll wean FiO2 as tolerated. Check CXR for ETT position DuoNeb every 6 hours. Hold on spontaneous breathing trials until patient is resuscitated. CV: Peripheral arterial disease, status post left BKA Shock secondary to acute blood loss and sepsis Lactic acidemia Grade 1 diastolic dysfunction Levophed currently on standby. Will use as needed to maintain map greater than 65. . Received 5 L crystalloid in OR. Transfusing 4 units PRBC now. Will monitor UOP closely as marker of perfusion (currently adequate 150/hr) and trend lactic acid. Received 4 Amps of bicarbonate per Dr. Olvera GI: Ischemic colitis with perforation of transverse colon, s/o resection 5-6 inches of transverse colon with creation of ileostomy and colostomy (mucous fistula). GERD Elevated transaminases probable secondary to sepsis and ischemic hepatopathy Trend LFTs. NPO. NG tube in right nare to low intermittent wall suction. VERNA in place, monitor output. Abdominal fascia is closed. Wound VAC is in place. Bleeding noted at ileostomy/colostomy, mucosa dusky. Dr. Olvera aware, felt to be related to underresuscitation. . Transfusing. Pre-albumin was 33 on 09/25/16. Continue TPN Protonix 40 mg IV daily for stress ulcer prophylaxis. FEN/RENAL: Acute kidney injury Acute anion gap metabolic acidemia Lactic acidemia Hypomagnesemia (resolved) Hypocalcemia Hamlin in place. Monitor intake and output. Since stat electrolytes including magnesium and phosphate and replace as indicated. Avoid nephrotoxins. She is making urine ~150/hr for first 2 hours in ICU resuscitation. Trend lactic acid. Calcium chloride 2 g IV now ID: Septic shock secondary to intrabdominal sepsis with mesenteric ischemia, bowel perforation and leak. Continue cefepime, vancomycin, fluconazole. Added metronidazole 500 mg IV every 8 hours for anaerobic coverage. Follow-up blood culture 2 sets and urine culture 10/08. HEME: Acute blood loss anemia Coagulopathy Bleeding noted at ileostomy/colostomy. Dr. Olvera aware. Previously on Xarelto. Last dose 10/08 10 am. Received K Centra 23 units/kg on 10/08/16. Received 2 units FFP in OR. Stat coags and fibrinogen now. Transfuse 4 units PRBC for Hgb 5 and f/u CBC. Calcium chloride 2 g IV now. ENDO: Euglycemic PROPH: Hold pharmacologic DVT prophylaxis secondary to bleeding. Protonix 40 mg IV daily for stress ulcer prophylaxis. ACCESS: Right IJ central venous line placed in OR 10/08 #1, left brachial art line placed in OR 10/08 #1. Discussed with Dr. Olvera. Critical care time 75 minutes exclusive of separately billable procedures Chitra Sweeney MD Oct 08, 2016 21:03
[2016-10-08 21:05] LABS: MEAN CELL VOLUME 92.3 FL (80.0-100.0); MEAN CORPUSCULAR HEMOGLOBIN 29.3 PG (27.0-34.0); MEAN CORPUSCULAR HGB CONC 31.7 % (32.0-36.0); PLATELET COUNT 264 TH/MM3 (150-450); RED CELL DISTRIBUTION WIDTH 16.7 % (11.6-17.2); WHITE BLOOD COUNT 30.7 TH/MM3 (4.0-11.0)
[2016-10-08 21:08] LABS: REVIEW FLAG FINAL
[2016-10-08 21:09] LABS: HEMATOCRIT 15.7 % (35.0-46.0)
[2016-10-08 21:42] LABS: BICARBONATE 18.9 MEQ/L (21.0-32.0); CALCIUM-PROTEIN CORRECTED 7.9 MG/DL (8.5-10.1); MAGNESIUM 2.4 MG/DL (1.5-2.5); TOTAL BILIRUBIN ADULT 0.4 MG/DL (0.2-1.0)
[2016-10-08 21:43] LABS: POTASSIUM 4.5 MEQ/L (3.5-5.1)
[2016-10-08 21:57] LABS: BLOOD GAS BASE EXCESS -8.5 mmol/L (-2-2); BLOOD GAS CARBOXYHEMOGLOBIN 0.9 % (0-4); BLOOD GAS HCO3 16 mmol/L (22-26); BLOOD GAS METHEMOGLOBIN 1.2 % (0-2); BLOOD GAS O2 HGB SATURATION 97 % (90-100); BLOOD GAS OXYGEN CONTENT 10.9 Vol % (12.0-20.0); BLOOD GAS PCO2 32 mmHg (38-42); BLOOD GAS PO2 168 mmHg (61-120); BLOOD GAS TOTAL HGB 7.7 G/DL (12.0-16.0); CRITICAL VALUE YES; DRAW SITE ALINE; FIO2 60 %; OXYGEN DEVICE VENTILATOR; TEMP CORR TO 98.6; VENT SETTINGS AC20/500/PEEP5
[2016-10-08 21:58] LABS: ULNAR PULSE PRESENT
[2016-10-08] MEDS ORDERED: VANCOMYCIN INJ 750 MG in SODIUM CHLOR 0.9% 250 ML INJ 250 ML IV ONE (22:00)
[2016-10-08 22:06] LABS: APTT (PATIENT) 33.1 SEC (24.3-30.1); INTERNATIONAL NORMALIZED RATIO 1.2 RATIO; PROTHROMBIN TIME - PATIENT 13.9 SEC (9.8-11.6)
[2016-10-08] MEDS: metroNIDAZOLE 500 MG INJ 100 ML IV SCH (22:07)
[2016-10-08] MEDS: FLUCONAZOLE 200 MG PREMIX BAG 100 ML IV SCH (22:07)
[2016-10-08] MEDS ORDERED: CALCIUM CHLORIDE INJ 2 GM in SODIUM CHLORIDE 0.9% INJ 100 ML IV ONE (23:00)
[2016-10-08] MEDS: FAT EMULSION 20% INJ 250 ML (Twice weekly over 8 hours) IV-CENTRAL SCH (23:15)
[2016-10-08] MEDS: PANTOPRAZOLE SODIUM 40 MG VIAL IV PUSH SCH (23:15)
[2016-10-08] MEDS: CLINIMIX E 5/25 2000 mL- >42 mls/hr IV-CENTRAL SCH ×3 (23:15)
--- NOTE | 2016-10-08 23:28 | RADRPT ---
EXAM DATE/TIME: 10/08/2016 23:06 [facility] COMPARISON: CHEST SINGLE AP, October 08, 2016, 15:58. INDICATIONS : Shortness of breath. MEDICAL HISTORY : None. SURGICAL HISTORY : None. ENCOUNTER: Subsequent ACUITY: 1 day PAIN SCORE: Non-responsive. LOCATION: Bilateral chest FINDINGS: Patchy mild air space opacities are again noted of both lungs. No large effusion demonstrated. No pne umothorax. Patient is now intubated. Endotracheal tube tip is about 3 cm above the skyla. Nasogastric tube cont inues to course into the stomach. Bilateral internal jugular central venous catheters are unchanged, the right one with its tip in the superior vena cava and the left one with its tip in the right atriu m. CONCLUSION: Interim intubation. Endotracheal tube tip is about 3 cm above the skyla. Patchy air space opacities not significantly changed. Calixto Woodruff MD on October 08, 2016 at 23:25 Board Certified Radiologist. This report was verified electronically.
[2016-10-09] VITALS (16 sets, daily range): BP systolic 101–140; BP diastolic 47–81; PULSE 109–122; RESP 18–22; TEMP 97.3–99.1; O2SAT 97–100
[2016-10-09] MEDS: SODIUM CHLOR 0.9% 1000 ML INJ 1,000 ML IV SCH ×6 (02:09→22:09)
[2016-10-09] MEDS ORDERED: DEXTROSE 50% IN WATER 50 ML VIAL(D50) IV PUSH PRN (03:15)
[2016-10-09] MEDS: INSULIN ASPART SUPPLEMENTAL SCALE SQ SCH ×4 (03:15→20:25)
[2016-10-09] MEDS ORDERED: GLUCAGON 1 MG/ML VIAL OTHER PRN (03:15)
[2016-10-09 03:26] LABS: BASOPHIL % 0.2 % (0.0-2.0); EOSINOPHIL # 0.1 TH/MM3 (0-0.4); EOSINOPHIL % 0.3 % (0.0-4.0); HEMATOCRIT 32.7 % (35.0-46.0); LYMPH % 4.3 % (9.0-44.0); LYMPHOCYTE # 0.8 TH/MM3 (1.0-4.8); MEAN CELL VOLUME 85.8 FL (80.0-100.0); MEAN CORPUSCULAR HEMOGLOBIN 29.8 PG (27.0-34.0); MEAN CORPUSCULAR HGB CONC 34.7 % (32.0-36.0); MONO % 1.7 % (0.0-8.0); NEUT % 93.5 % (16.0-70.0); PLATELET COUNT 210 TH/MM3 (150-450); RED BLOOD COUNT 3.82 MIL/MM3 (4.00-5.30); RED CELL DISTRIBUTION WIDTH 17.1 % (11.6-17.2); WHITE BLOOD COUNT 19.2 TH/MM3 (4.0-11.0)
[2016-10-09 03:27] LABS: HEMO FLAGS AUTO DIFF
[2016-10-09] MEDS: fentaNYL DRIP 250 ML IV SCH ×2 (03:27→20:37)
[2016-10-09] MEDS: PROPOFOL 1000 MG/100 ML INJ 100 ML IV SCH ×3 (03:27→20:36)
[2016-10-09] MEDS: ALPRAZolam 0.25 MG TAB PO SCH ×3 (03:38→22:00)
[2016-10-09 04:27] LABS: BANDS 50 % (0-6); POLYS (SEG NEUTROPHILS) 49 % (16-70); WBC DIFF SAMPLE 100
[2016-10-09 04:28] LABS: PLATELET ESTIMATE SMEAR NORMAL (NORMAL); PLATELET MORPHOLOGY NORMAL (NORMAL); SCAN/DIFF FINAL DIFF MANUAL
[2016-10-09 05:43] LABS: BLOOD GAS BASE EXCESS -4.8 mmol/L (-2-2); BLOOD GAS CARBOXYHEMOGLOBIN 1.2 % (0-4); BLOOD GAS HCO3 19 mmol/L (22-26); BLOOD GAS METHEMOGLOBIN 1.1 % (0-2); BLOOD GAS O2 HGB SATURATION 97 % (90-100); BLOOD GAS OXYGEN CONTENT 14.8 Vol % (12.0-20.0); BLOOD GAS PCO2 33 mmHg (38-42); BLOOD GAS PO2 151 mmHg (61-120); BLOOD GAS TOTAL HGB 10.7 G/DL (12.0-16.0); TEMP CORR TO 98.6
[2016-10-09 05:44] LABS: CRITICAL VALUE NO; DRAW SITE ALINE; FIO2 60 %; OXYGEN DEVICE VENTILATOR; STAT NO; ULNAR PULSE PRESENT; VENT SETTINGS 18/500/PEEP5
[2016-10-09 05:48] LABS: AUTOMATED NEUTROPHIL # 17.5 TH/MM3 (1.8-7.7); BASOPHIL % 0.1 % (0.0-2.0); EOSINOPHIL % 0.2 % (0.0-4.0); HEMATOCRIT 31.5 % (35.0-46.0); LYMPH % 3.9 % (9.0-44.0); LYMPHOCYTE # 0.7 TH/MM3 (1.0-4.8); MEAN CORPUSCULAR HEMOGLOBIN 29.9 PG (27.0-34.0); MEAN CORPUSCULAR HGB CONC 35.1 % (32.0-36.0); MONO % 2.1 % (0.0-8.0); NEUT % 93.7 % (16.0-70.0); PLATELET COUNT 200 TH/MM3 (150-450); RED CELL DISTRIBUTION WIDTH 17.1 % (11.6-17.2); WHITE BLOOD COUNT 18.7 TH/MM3 (4.0-11.0)
[2016-10-09 05:51] LABS: HEMO FLAGS AUTO DIFF
[2016-10-09] MEDS: metroNIDAZOLE 500 MG INJ 100 ML IV SCH ×3 (06:10→22:10)
[2016-10-09 06:20] LABS: ALKALINE PHOSPHATASE 88 U/L (45-117); ALT (GPT) 56 U/L (10-53); ANION GAP 13 MEQ/L (5-15); AST (GOT) 71 U/L (15-37); BICARBONATE 21.9 MEQ/L (21.0-32.0); BLOOD UREA NITROGEN 26 MG/DL (7-18); CHLORIDE 110 MEQ/L (98-107); GLOMERULAR FILTRATION RATE 36 ML/MIN (>89); MAGNESIUM 1.9 MG/DL (1.5-2.5); POTASSIUM 3.9 MEQ/L (3.5-5.1); SODIUM (NA) 145 MEQ/L (136-145); TOTAL BILIRUBIN ADULT 1.2 MG/DL (0.2-1.0)
[2016-10-09 07:55] LABS: BANDS 47 % (0-6); CORRECTED NUCLEATED RBC 1 /100 WBC (0-0); METAMYELOCYTES 2 % (0-1); NEUTROPHIL # MANUAL DIFF 17.4 TH/MM3 (1.8-7.7); PLATELET ESTIMATE SMEAR NORMAL (NORMAL); PLATELET MORPHOLOGY NORMAL (NORMAL); POLYS (SEG NEUTROPHILS) 44 % (16-70); SCAN/DIFF FINAL DIFF MANUAL; TOXIC VACUOLATION PRESENT (NONE SEEN); WBC DIFF SAMPLE 100
[2016-10-09 07:56] LABS: ACANTHOCYTES 1+ (NORMAL); OVALOCYTES 1+ (NORMAL)
[2016-10-09] MEDS: CHLORHEXIDINE 0.12% (ORAL KIT) 15 ML CUP MT SCH ×2 (08:00→20:00)
[2016-10-09] MEDS: DULoxetine HCl DR 30 MG CAP PO SCH (09:00)
[2016-10-09] MEDS: FERROUS SULFATE 325 MG (65 MG ELEMENTAL IRON) TAB PO SCH (09:00)
[2016-10-09] MEDS: SODIUM CHLORIDE 0.9% FLUSH 5 ML FLUSH IVF SCH ×2 (09:00→20:25)
[2016-10-09] MEDS: NYSTATIN 100,000 U/GM PWD 15 GM BTL TOPICAL SCH ×2 (09:00→20:37)
[2016-10-09] MEDS: MULTIVITAMIN TAB PO SCH (09:00)
--- NOTE | 2016-10-09 09:15 | MH ---
cc: JANICE JOSE MD DATE OF ADMISSION: 06/14/2016 ADMITTING DIAGNOSIS: 1. Septic shock. 2. Metabolic acidosis. 3. Hypotension. 4. Peritonitis. 5. Gangrene of the colon. HISTORY OF PRESENT ILLNESS: This unfortunate 71-year-old lady was admitted last year with gangrene of the large bowel and severe mesenteric ischemia due to occlusion of the superior mesenteric artery and branches. She underwent at that time right colectomy, resection of a large amount of small bowel; this was followed by another surgery or two in the next month or two and the patient then recovered. 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 The patient was now in a rehab setting at [facility] doing very well for a year and then this morning suddenly developed hypotension, leukocytosis, sepsis and had to be immediately transferred to the main hospital for further care. The patient became distended and complained about severe abdominal pain. PAST MEDICAL HISTORY: The past medical history is that of: 1. Previous several surgeries. 2. Hypertension. 3. Depression. 4. Malnutrition. 5. Left below-knee amputation. MEDICATIONS: Medications can be found on the chart. SOCIAL HISTORY: The patient quit smoking last year after the last surgery. Never used drugs. PHYSICAL EXAMINATION: GENERAL: The physical examination reveals a 71-year-old lady in moderate distress. HEAD, EYES, EARS, NOSE, THROAT: Normocephalic. No trauma to the head. Pupils appear to be equal and reactive. Extraocular muscles are intact. NECK: The neck has bilateral carotid pulses. Faint right-sided bruit. CHEST: Bilateral breath sounds decreased over both lung chaney consistent with some degree of pulmonary cachexia. HEART: Regular rhythm. Rate about 110. ABDOMEN: The abdomen is distended, tender with some rebound and guarding in the midline. Minimal drainage from the fistula tract. EXTREMITIES: Grossly within normal limits with good proximal and distal pulses. The patient has a left below-knee amputation. IMPRESSION: I reviewed laboratory and diagnostic procedures. This patient has massive metabolic acidosis with lactate elevation and massive leukocytosis. The most likely cause of this is a bowel perforation, but it has been seen to occur in patients with acute myeloid leukemia where the white count simply suddenly goes up and gives a similar picture. At this point, the patient's CT scan reveals pneumatosis intestinalis in the transverse colon, which appears to be ischemia. The patient will be taken for immediate surgery. CRITICAL CARE TIME: One (1) hour. Janice MÉNDEZ/JCFarheen /8:23 PM /9:15 AM
[2016-10-09] MEDS: ZINC SULFATE 220 MG CAP PO SCH (09:26)
[2016-10-09] MEDS: CALCITRIOL 0.25 MCG CAP PO SCH (09:26)
[2016-10-09] MEDS: GABAPENTIN 300 MG CAP PO SCH ×2 (09:26→13:39)
[2016-10-09] MEDS: CALCIUM/VITAMIN D 250 MG/125 U TAB PO SCH ×2 (09:27→19:53)
[2016-10-09] MEDS: RESP: ALBUTEROL 2.5 MG/IPRATROPIUM 0.5 MG NEB (SCH) NEB ×3 (09:28→20:11)
[2016-10-09] MEDS ORDERED: ASP: Documented ESBL, MDR A baumannii or P. aeruginosa XX PRN (12:45)
[2016-10-09] MEDS ORDERED: MISCELLANEOUS PHARMACY INFORMATION XX PRN (12:45)
--- NOTE | 2016-10-09 12:51 | HHI.CCPN ---
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 She underwent at that time right colectomy, resection of a large amount of small bowel; this was followed by another surgery or two in the next month or two and the patient then recovered. 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 The patient was now in a rehab setting at [facility] doing very well for a year and then this morning suddenly developed hypotension, leukocytosis, sepsis and had to be immediately transferred to the main hospital for further care. Patient underwent exploratory laparotomy with resection of the segment of the large bowel containing the anastomosis to the small bowel and the fistula, end ileostomy and mucous fistula colostomy creation and removal of segments of ventral hernia mesh placed at some point many years in the past It should be noted that patient was on Xarelto and received PCC FFP and 4 units of PRBCs The massive metabolic acidosis has since corrected and so has the hypotension 24 Hour Review/Hospital Course 10/09/16 Status post exploratory laparotomy bowel resection and ileostomy and colostomy mucous fistula creation Patient is doing much better at this time Spend the night on the ventilator with the gradually correcting metabolic acidosis the hypovolemia and septic shock Gram-negative organisms in the blood stream consistent with the previous history of ESBL Objective Vital Signs Date Time Temp Pulse Resp B/P Pulse Ox O2 Delivery O2 Flow Rate FiO2 10/09/16 11:40 98 40 10/09/16 10:00 121 10/09/16 08:00 99.1 18 105/47 10/08/16 15:20 Non-Rebreather 15 Intake and Output 10/08/16 10/08/16 10/09/16 08:00 16:00 00:00 Intake Total 3560 ml 1200 ml Output Total 900 ml 845 ml Balance 2660 ml 355 ml Result Diagram: 10/09/16 0520 10/09/16 0520 Other Results Laboratory Tests Test 10/08/16 10/08/16 10/08/16 10/08/16 17:08 18:25 20:05 21:43 Blood Gas Puncture Site DRAWN IN OR DRAWN IN OR LT BRACHIAL PIETER Blood Gas Patient Temperature 98.6 98.6 98.6 98.6 Blood Gas HCO3 11 mmol/L 10 mmol/L 11 mmol/L 16 mmol/L (22-26) (22-26) (22-26) (22-26) Blood Gas Base Excess -16.3 mmol/L -17.5 mmol/L -18.1 mmol/L -8.5 mmol/L (-2-2) (-2-2) (-2-2) (-2-2) Blood Gas Oxygen Saturation 95 % (90-100) 94 % (90-100) 97 % (90-100) 97 % (90- 100) Arterial Blood pH 7.11 7.10 7.04 7.33 (7.380-7.420) (7.380-7.420) (7.380-7.420) (7.380-7.420) Arterial Blood Partial 38 mmHg (38-42) 35 mmHg (38-42) 41 mmHg (38-42) 32 mmHg ( 38-42) Pressure CO2 Arterial Blood Partial 195 mmHG 198 mmHG 416 mmHg 168 mmHg Pressure O2 (61-120) (61-120) (61-120) (61-120) Arterial Blood Oxygen Content 16.1 Vol % 18.8 Vol % 8.4 Vol % 10.9 Vol % (12.0-20.0) (12.0-20.0) (12.0-20.0) (12.0-20.0) Arterial Blood 1.3 % (0-4) 1.2 % (0-4) 0.7 % (0-4) 0.9 % (0-4) Carboxyhemoglobin Arterial Blood Methemoglobin 2.4 % (0-2) 2.4 % (0-2) 1.5 % (0-2) 1.2 % (0-2) Blood Gas Hemoglobin 11.8 G/DL 13.9 G/DL 5.4 G/DL 7.7 G/DL (12.0-16.0) (12.0-16.0) (12.0-16.0) (12.0-16.0) Oxygen Delivery Device OR VENTILATOR VENTILATOR Blood Gas Ventilator Setting AC/14/500/5PEEP AC20/500/PEEP5 Blood Gas Inspired Oxygen 100 % 60 % Test 10/09/16 05:38 Blood Gas Puncture Site PIETER Blood Gas Patient Temperature 98.6 Blood Gas HCO3 19 mmol/L (22-26) Blood Gas Base Excess -4.8 mmol/L (-2-2) Blood Gas Oxygen Saturation 97 % (90-100) Arterial Blood pH 7.39 (7.380-7.420) Arterial Blood Partial 33 mmHg (38-42) Pressure CO2 Arterial Blood Partial 151 mmHg Pressure O2 (61-120) Arterial Blood Oxygen Content 14.8 Vol % (12.0-20.0) Arterial Blood 1.2 % (0-4) Carboxyhemoglobin Arterial Blood Methemoglobin 1.1 % (0-2) Blood Gas Hemoglobin 10.7 G/DL (12.0-16.0) Oxygen Delivery Device VENTILATOR Blood Gas Ventilator Setting 18/500/PEEP5 Blood Gas Inspired Oxygen 60 % Exam CREDIT PROFESSIONAL On sedation indication patient response to verbal stimuli and answers questions with motion while on the ventilator Neurologically appears to be intact Hemodynamic/Cardiac Hemodynamically patient was very unstable required the significant vasomotor support initially due to sepsis and profound metabolic acidosis Currently patient remained on small dose of Levophed and this was DC'd earlier this morning Patient now hemodynamically much improved Bharat reveals good cardiac output of about 8 L and the clearly decreased systemic vascular resistance consistent with sepsis and hyperdynamic state Pulmonary/Respiratory Bilateral good breath sounds and decreased level of the ventilatory support in the face of correcting metabolic acidosis Abdomen/GI Nutrition Abdomen is soft Wound VAC in place in midline Some bleeding from ileostomy and colostomy sites which is a good sign at this point considering that patient has chronic intestinal ischemia. Will restart on Lovenox today Continue NG tube will patient gets extubated VERNA serosanguineous Metabolic/Acid-Base Initially profound metabolic acidosis with septic shock and hypoperfusion and lactic acid of 10 mmol per liter This has corrected since due to preloading treating off the original condition surgery, administration of blood and blood products and some bicarbonate supplementation Hematologic Decreasing white count from 50 7K down to 18 K today with correcting left shift Vascular Central Line Catheter Date of Insertion: Jun 20, 2016 Side: Left Janice Olvera MD Oct 09, 2016 12:51
[2016-10-09] MEDS: MEROPENEM INJ 1,000 MG in SODIUM CHLORIDE 0.9% INJ 100 ML IV SCH (14:44)
[2016-10-09] MEDS ORDERED: ENOXAPARIN SODIUM 30 MG/0.3 ML SYRINGE SQ SCH (15:00)
--- NOTE | 2016-10-09 16:02 | HHI.HCPN ---
Reason for visit a. To assist with evaluation and management of symptoms including: Pain, anxiety, depression b. To assist medical decision maker(s) with: better understanding of current medical conditions; weighing benefits/burdens of medical treatment options; making medical treatment decisions. . Subjective/Interval History INTERVAL NOTE: The patient has been at the [facility] the past couple months, and yesterday she developed abdominal pain and leukocytosis and was found to be in shock. CT scan revealed pneumatosis of the bowel wall and she was emergently transferred here to this hospital facility where she underwent emergent exploratory laparotomy, with bowel resection and end ileostomy and colostomy, wound VAC placement. Now she is on propofol, and her fentanyl has been held temporarily. She remains mechanically ventilated. She is not answering questions. . As per initial consultation note on 07/24/16 by Ronald Edouard MD: This 71-year-old female has a complex medical history over the past year. The patient was admitted to the hospital and sepsis and shock in October 2015 and was found to have ischemic bowel. She underwent surgery 11/13/15 with resection of some large and small bowel (as well as the gallbladder), but developed complications including an enterocutaneous fistula and required a second resection of bowel on 11/26/15. The patient eventually was able to be sent to SNF , but returned to the hospital again on 03/11/16 with abdominal pain and had infection involving the fistula. That was treated, and she was able to go home briefly. She returned to the hospital on 04/04/16 because of left leg pain that was found to be caused by ischemia. She underwent treatment with TPA and was kept on anticoagulation, and was discharged again. She returned to the hospital on 04/28/16 with gangrene of the left foot, and was found to have multiple thrombi in major vessels. 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 On 06/14/16, while at the nursing facility, the patient was moving in the bed and there was a dehiscence of the left leg stump wound, and she was sent back to the hospital for admission. Couple on arrival at the hospital, she was found to have a temperature of 100.2 , and she was readmitted. 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 Cultures from the stump wound grew both Klebsiella ESBL and a Morganella species. She was taken to the operating room for debridement and placement of a wound VAC. The fistula seemed to finally close on 06/25/16, but it reopened and has remained open since 07/12/16. She again had fever on 07/21/16 , and additional cultures were done. Staphylococcus hominis has been grown in the blood cultures. The patient has developed a worsening rash on her face, upper back, sacral/ buttock area, and now over the past few days worsening with development of bullae on multiple fingertips. The patient thinks there were vesicles on the rash across her back and on her face a week or 2 ago, but those seem to have all collapsed and dried. The patient has had worsening anxiety over the past several months that she has undergone multiple hospitalizations and complications. She has been receiving some PRN Xanax here, and she says that does help, but it is not scheduled. She has also had pain that has worsened, particularly in her abdomen that she relates to the enterocutaneous fistula, and on her skin on the sacral and upper back area, as well as some skin related to the facial rash. She has received intermittent [place] 10 mg and Dilaudid 1 mg IV a few times per day, and says they helped temporarily. Palliative Care was consulted to assist with symptom management, and to enter in discussions regarding goals of care in the benefits and burdens of the various illnesses and treatment options. . Family/friend interactions I spoke by telephone with her friend/HCS Anuradha Christian, and she is aware that this is a "major setback." She reports that she feels it is "time to consider perhaps letting go." I have encouraged her to come see the patient and we will then speak about resuscitation status, etc. . Advance Directives Living Will: Never completed Health Care Surrogate: Copy in medical record Durable Power of Information Systems Consultant: Never completed Advance Directive Specifics Health Care Surrogate(s): Primary HCS is her close friend Anuradha Christian, and secondary is her Dwight Wilson. The HCS that is in the record here is not dated. . Objective Vital Signs Date Time Temp Pulse Resp B/P Pulse Ox O2 Delivery O2 Flow Rate FiO2 10/09/16 11:40 98 40 10/09/16 11:25 40 10/09/16 10:00 121 10/09/16 08:15 97 50 10/09/16 08:00 99.1 121 18 105/47 97 10/09/16 08:00 121 10/09/16 08:00 60 10/09/16 06:00 122 10/09/16 04:00 97.9 120 22 107/50 100 10/09/16 04:00 60 10/09/16 04:00 120 10/09/16 03:36 98 60 10/09/16 02:00 120 10/09/16 00:00 109 10/09/16 00:00 60 10/09/16 00:00 97.3 109 20 140/72 100 10/08/16 22:42 100 60 10/08/16 22:21 97.4 108 20 120/59 100 10/08/16 22:00 97.4 112 20 117/52 100 10/08/16 21:15 97.4 112 20 117/52 100 10/08/16 21:00 96.7 107 20 88/39 100 10/08/16 20:20 100 60 10/08/16 20:00 112 10/08/16 20:00 96.7 110 20 88/39 100 10/08/16 16:15 124 26 118/52 99 116/54 10/08/16 16:00 125 26 125/69 100 10/08/16 15:45 117 26 132/69 100 Physical Exam CONSTITUTIONAL/GENERAL: This is in the ISC bed, ventilator, sedated. TUBES/LINES/DRAINS: Accessed port, guevara catheter SKIN: Skin temperature appropriate. Not diaphoretic. Abdominal wounds noted ENT: Nose without bleeding or purulent drainage. Throat without visible erythema, exudates, masses, or lesions. CARDIOVASCULAR: Regular rate and rhythm without murmurs, gallops, or rubs. No JVD. RESPIRATORY/CHEST: Symmetric, unlabored respirations. Clear to auscultation. Breath sounds equal bilaterally. No wheezes, rales, or rhonchi. GASTROINTESTINAL: Soft, no bowel sounds heard. Ileostomy and colostomy noted MUSCULOSKELETAL: Extremities without clubbing, cyanosis, or edema. Stump now well healed. No mottling or clubbing. NEUROLOGICAL: Sedated PSYCHIATRIC: Unable to evaluate due to her clinical condition . Diagnostic Tests Laboratory Laboratory Tests Test 10/07/16 10/08/16 10/08/16 10/08/16 07:05 10:47 11:48 12:40 Sodium Level 141 MEQ/L 141 MEQ/L (136-145) (136-145) Potassium Level 4.3 MEQ/L 4.1 MEQ/L (3.5-5.1) (3.5-5.1) Chloride Level 109 MEQ/L 106 MEQ/L (98-107) (98-107) Carbon Dioxide Level 22.8 MEQ/L 11.2 MEQ/L (21.0-32.0) (21.0-32.0) Anion Gap 9 MEQ/L (5-15) 24 MEQ/L (5-15) Blood Urea Nitrogen 28 MG/DL (7-18) 40 MG/DL (7-18) Creatinine 0.81 MG/DL 2.70 MG/DL (0.50-1.00) (0.50-1.00) Estimat Glomerular Filtration 70 ML/MIN (>89) 17 ML/MIN (>89) Rate Random Glucose 83 MG/DL 118 MG/DL (74-106) (74-106) Calcium Level 10.0 MG/DL 9.0 MG/DL (8.5-10.1) (8.5-10.1) White Blood Count 54.8 TH/MM3 (4.0-11.0) Red Blood Count 3.43 MIL/MM3 (4.00-5.30) Hemoglobin 10.4 GM/DL (11.6-15.3) Hematocrit 31.1 % (35.0-46.0) Mean Corpuscular Volume 90.8 FL (80.0-100.0) Mean Corpuscular Hemoglobin 30.5 PG (27.0-34.0) Mean Corpuscular Hemoglobin 33.6 % Concent (32.0-36.0) Red Cell Distribution Width 15.7 % (11.6-17.2) Platelet Count 477 TH/MM3 (150-450) Mean Platelet Volume 7.0 FL (7.0-11.0) Neutrophils (%) (Auto) 97.4 % (16.0-70.0) Lymphocytes (%) (Auto) 1.9 % (9.0-44.0) Monocytes (%) (Auto) 0.5 % (0.0-8.0) Eosinophils (%) (Auto) 0.0 % (0.0-4.0) Basophils (%) (Auto) 0.2 % (0.0-2.0) Neutrophils # (Auto) 53.4 TH/MM3 (1.8-7.7) Lymphocytes # (Auto) 1.0 TH/MM3 (1.0-4.8) Monocytes # (Auto) 0.3 TH/MM3 (0-0.9) Eosinophils # (Auto) 0.0 TH/MM3 (0-0.4) Basophils # (Auto) 0.1 TH/MM3 (0-0.2) CBC Comment AUTO DIFF Differential Total Cells 100 Counted Neutrophils % (Manual) 53 % (16-70) Band Neutrophils % 44 % (0-6) Lymphocytes % 1 % (9-44) Monocytes % 2 % (0-8) Neutrophils # (Manual) 53.2 TH/MM3 (1.8-7.7) Differential Comment FINAL DIFF MANUAL Magnesium Level 1.3 MG/DL (1.5-2.5) Total Bilirubin 0.4 MG/DL (0.2-1.0) Direct Bilirubin 0.3 MG/DL (0.0-0.2) Indirect Bilirubin 0.1 MG/DL (0.0-0.8) Aspartate Amino Transf 95 U/L (15-37) (AST/SGOT) Alanine Aminotransferase 77 U/L (10-53) (ALT/SGPT) Alkaline Phosphatase 204 U/L (45-117) Total Protein 6.8 GM/DL (6.4-8.2) Albumin 2.5 GM/DL (3.4-5.0) Lipase 275 U/L (73-393) Lactic Acid Level 10.3 mmol/L (0.4-2.0) Urine Collection Type CLEAN CATCH Urine Color YELLOW (YELLW/STRAW) Urine Turbidity CLEAR (CLEAR) Urine pH 5.5 (5.0-8.5) Urine Specific [place] 1.020 (1.002-1.035) Urine Protein 30 mg/dL (NEG-TRACE) Urine Glucose (UA) NEG mg/dL (NEG) Urine Ketones NEG mg/dL (NEG) Urine Occult Blood SMALL (NEG) Urine Nitrite NEG (NEG) Urine Bilirubin NEG (NEG) Urine Leukocyte Esterase SMALL (NEG) Urine RBC 0-3 /hpf (0-3) Urine WBC 9-14 /hpf (0-5) Urine Squamous Epithelial 0-5 /hpf (0-5) Cells Urine Transitional Epithelial 0-5 /hpf (NONE) Cells Urine Renal Epithelial Cells 0-5 /hpf (NONE) Urine Amorphous Sediment FEW Microscopic Urinalysis Comment CULTURE INDICATED Test 10/08/16 10/08/16 10/08/16 10/08/16 15:59 16:00 17:08 17:10 Crossmatch Leukocyte-Reduced Red Blood Cells Blood Bank Comment Prothrombin Time 13.8 SEC (9.8-11.6) Prothromb Time International 1.2 RATIO Ratio Lactic Acid Level 7.5 mmol/L (0.4-2.0) Blood Type A POSITIVE Antibody Screen NEGATIVE Blood Gas Puncture Site DRAWN IN OR Blood Gas Patient Temperature 98.6 Blood Gas HCO3 11 mmol/L (22-26) Blood Gas Base Excess -16.3 mmol/L (-2-2) Blood Gas Oxygen Saturation 95 % (90-100) Arterial Blood pH 7.11 (7.380-7.420) Arterial Blood Partial 38 mmHg (38-42) Pressure CO2 Arterial Blood Partial 195 mmHG Pressure O2 (61-120) Arterial Blood Oxygen Content 16.1 Vol % (12.0-20.0) Arterial Blood 1.3 % (0-4) Carboxyhemoglobin Arterial Blood Methemoglobin 2.4 % (0-2) Blood Gas Hemoglobin 11.8 G/DL (12.0-16.0) Test 10/08/16 10/08/16 10/08/16 10/08/16 18:25 20:05 20:35 20:50 Blood Gas Puncture Site DRAWN IN OR LT BRACHIAL Blood Gas Patient Temperature 98.6 98.6 Blood Gas HCO3 10 mmol/L 11 mmol/L (22-26) (22-26) Blood Gas Base Excess -17.5 mmol/L -18.1 mmol/L (-2-2) (-2-2) Blood Gas Oxygen Saturation 94 % (90-100) 97 % (90-100) Arterial Blood pH 7.10 7.04 (7.380-7.420) (7.380-7.420) Arterial Blood Partial 35 mmHg (38-42) 41 mmHg (38-42) Pressure CO2 Arterial Blood Partial 198 mmHG 416 mmHg Pressure O2 (61-120) (61-120) Arterial Blood Oxygen Content 18.8 Vol % 8.4 Vol % (12.0-20.0) (12.0-20.0) Arterial Blood 1.2 % (0-4) 0.7 % (0-4) Carboxyhemoglobin Arterial Blood Methemoglobin 2.4 % (0-2) 1.5 % (0-2) Blood Gas Hemoglobin 13.9 G/DL 5.4 G/DL (12.0-16.0) (12.0-16.0) Oxygen Delivery Device OR VENTILATOR Blood Gas Ventilator Setting /14/500/5PEEP Blood Gas Inspired Oxygen 100 % White Blood Count 30.7 TH/MM3 (4.0-11.0) Red Blood Count 1.70 MIL/MM3 (4.00-5.30) Hemoglobin 5.0 GM/DL (11.6-15.3) Hematocrit 15.7 % (35.0-46.0) Mean Corpuscular Volume 92.3 FL (80.0-100.0) Mean Corpuscular Hemoglobin 29.3 PG (27.0-34.0) Mean Corpuscular Hemoglobin 31.7 % Concent (32.0-36.0) Red Cell Distribution Width 16.7 % (11.6-17.2) Platelet Count 264 TH/MM3 (150-450) Mean Platelet Volume 8.0 FL (7.0-11.0) Sodium Level 145 MEQ/L (136-145) Potassium Level 4.5 MEQ/L (3.5-5.1) Chloride Level 104 MEQ/L (98-107) Carbon Dioxide Level 18.9 MEQ/L (21.0-32.0) Anion Gap 22 MEQ/L (5-15) Blood Urea Nitrogen 29 MG/DL (7-18) Creatinine 1.90 MG/DL (0.50-1.00) Estimat Glomerular Filtration 26 ML/MIN (>89) Rate Random Glucose 254 MG/DL (74-106) Lactic Acid Level 10.9 mmol/L (0.4-2.0) Calcium Level 6.7 MG/DL (8.5-10.1) Protein Corrected Calcium 7.9 MG/DL (8.5-10.1) Phosphorus Level 6.1 MG/DL (2.5-4.9) Magnesium Level 2.4 MG/DL (1.5-2.5) Total Bilirubin 0.4 MG/DL (0.2-1.0) Aspartate Amino Transf 69 U/L (15-37) (AST/SGOT) Alanine Aminotransferase 53 U/L (10-53) (ALT/SGPT) Alkaline Phosphatase 106 U/L (45-117) Total Protein 4.8 GM/DL (6.4-8.2) Albumin 2.0 GM/DL (3.4-5.0) Test 10/08/16 10/08/16 10/09/16 10/09/16 21:39 21:43 01:05 03:15 Prothrombin Time 13.9 SEC (9.8-11.6) Prothromb Time International 1.2 RATIO Ratio Activated Partial 33.1 SEC Thromboplast Time (24.3-30.1) Blood Gas Puncture Site PIETER Blood Gas Patient Temperature 98.6 Blood Gas HCO3 16 mmol/L (22-26) Blood Gas Base Excess -8.5 mmol/L (-2-2) Blood Gas Oxygen Saturation 97 % (90-100) Arterial Blood pH 7.33 (7.380-7.420) Arterial Blood Partial 32 mmHg (38-42) Pressure CO2 Arterial Blood Partial 168 mmHg Pressure O2 (61-120) Arterial Blood Oxygen Content 10.9 Vol % (12.0-20.0) Arterial Blood 0.9 % (0-4) Carboxyhemoglobin Arterial Blood Methemoglobin 1.2 % (0-2) Blood Gas Hemoglobin 7.7 G/DL (12.0-16.0) Oxygen Delivery Device VENTILATOR Blood Gas Ventilator Setting AC20/500/PEEP5 Blood Gas Inspired Oxygen 60 % Lactic Acid Level 8.1 mmol/L (0.4-2.0) White Blood Count 19.2 TH/MM3 (4.0-11.0) Red Blood Count 3.82 MIL/MM3 (4.00-5.30) Hemoglobin 11.4 GM/DL (11.6-15.3) Hematocrit 32.7 % (35.0-46.0) Mean Corpuscular Volume 85.8 FL (80.0-100.0) Mean Corpuscular Hemoglobin 29.8 PG (27.0-34.0) Mean Corpuscular Hemoglobin 34.7 % Concent (32.0-36.0) Red Cell Distribution Width 17.1 % (11.6-17.2) Platelet Count 210 TH/MM3 (150-450) Mean Platelet Volume 7.7 FL (7.0-11.0) Neutrophils (%) (Auto) 93.5 % (16.0-70.0) Lymphocytes (%) (Auto) 4.3 % (9.0-44.0) Monocytes (%) (Auto) 1.7 % (0.0-8.0) Eosinophils (%) (Auto) 0.3 % (0.0-4.0) Basophils (%) (Auto) 0.2 % (0.0-2.0) Neutrophils # (Auto) 18.0 TH/MM3 (1.8-7.7) Lymphocytes # (Auto) 0.8 TH/MM3 (1.0-4.8) Monocytes # (Auto) 0.3 TH/MM3 (0-0.9) Eosinophils # (Auto) 0.1 TH/MM3 (0-0.4) Basophils # (Auto) 0.0 TH/MM3 (0-0.2) CBC Comment AUTO DIFF Differential Total Cells 100 Counted Neutrophils % (Manual) 49 % (16-70) Band Neutrophils % 50 % (0-6) Lymphocytes % 1 % (9-44) Neutrophils # (Manual) 19.0 TH/MM3 (1.8-7.7) Differential Comment FINAL DIFF MANUAL Platelet Estimate NORMAL (NORMAL) Platelet Morphology Comment NORMAL (NORMAL) Red Cell Morphology Comment NORMAL (NORMAL) Test 10/09/16 10/09/16 10/09/16 10/09/16 03:40 05:20 05:38 08:25 Nasal Screen MRSA (PCR) NEGATIVE (NEGATIVE) White Blood Count 18.7 TH/MM3 (4.0-11.0) Red Blood Count 3.70 MIL/MM3 (4.00-5.30) Hemoglobin 11.0 GM/DL (11.6-15.3) Hematocrit 31.5 % (35.0-46.0) Mean Corpuscular Volume 85.0 FL (80.0-100.0) Mean Corpuscular Hemoglobin 29.9 PG (27.0-34.0) Mean Corpuscular Hemoglobin 35.1 % Concent (32.0-36.0) Red Cell Distribution Width 17.1 % (11.6-17.2) Platelet Count 200 TH/MM3 (150-450) Mean Platelet Volume 8.2 FL (7.0-11.0) Neutrophils (%) (Auto) 93.7 % (16.0-70.0) Lymphocytes (%) (Auto) 3.9 % (9.0-44.0) Monocytes (%) (Auto) 2.1 % (0.0-8.0) Eosinophils (%) (Auto) 0.2 % (0.0-4.0) Basophils (%) (Auto) 0.1 % (0.0-2.0) Neutrophils # (Auto) 17.5 TH/MM3 (1.8-7.7) Lymphocytes # (Auto) 0.7 TH/MM3 (1.0-4.8) Monocytes # (Auto) 0.4 TH/MM3 (0-0.9) Eosinophils # (Auto) 0.0 TH/MM3 (0-0.4) Basophils # (Auto) 0.0 TH/MM3 (0-0.2) CBC Comment AUTO DIFF Differential Total Cells 100 Counted Neutrophils % (Manual) 44 % (16-70) Band Neutrophils % 47 % (0-6) Lymphocytes % 5 % (9-44) Monocytes % 2 % (0-8) Neutrophils # (Manual) 17.4 TH/MM3 (1.8-7.7) Metamyelocytes 2 % (0-1) Nucleated Red Blood Cells 1 /100 WBC (0-0) Differential Comment FINAL DIFF MANUAL Toxic Vacuolation PRESENT (NONE SEEN) Platelet Estimate NORMAL (NORMAL) Platelet Morphology Comment NORMAL (NORMAL) Ovalocytes 1+ (NORMAL) Acanthocytes 1+ (NORMAL) Sodium Level 145 MEQ/L (136-145) Potassium Level 3.9 MEQ/L (3.5-5.1) Chloride Level 110 MEQ/L (98-107) Carbon Dioxide Level 21.9 MEQ/L (21.0-32.0) Anion Gap 13 MEQ/L (5-15) Blood Urea Nitrogen 26 MG/DL (7-18) Creatinine 1.43 MG/DL (0.50-1.00) Estimat Glomerular Filtration 36 ML/MIN (>89) Rate Random Glucose 255 MG/DL (74-106) Lactic Acid Level 4.9 mmol/L (0.4-2.0) Calcium Level 7.9 MG/DL (8.5-10.1) Magnesium Level 1.9 MG/DL (1.5-2.5) Total Bilirubin 1.2 MG/DL (0.2-1.0) Aspartate Amino Transf 71 U/L (15-37) (AST/SGOT) Alanine Aminotransferase 56 U/L (10-53) (ALT/SGPT) Alkaline Phosphatase 88 U/L (45-117) Total Protein 4.9 GM/DL (6.4-8.2) Albumin 1.8 GM/DL (3.4-5.0) Lipase 62 U/L (73-393) Random Vancomycin Level 19.6 COMMENT Blood Gas Puncture Site PIETER Blood Gas Patient Temperature 98.6 Blood Gas HCO3 19 mmol/L (22-26) Blood Gas Base Excess -4.8 mmol/L (-2-2) Blood Gas Oxygen Saturation 97 % (90-100) Arterial Blood pH 7.39 (7.380-7.420) Arterial Blood Partial 33 mmHg (38-42) Pressure CO2 Arterial Blood Partial 151 mmHg Pressure O2 (61-120) Arterial Blood Oxygen Content 14.8 Vol % (12.0-20.0) Arterial Blood 1.2 % (0-4) Carboxyhemoglobin Arterial Blood Methemoglobin 1.1 % (0-2) Blood Gas Hemoglobin 10.7 G/DL (12.0-16.0) Oxygen Delivery Device VENTILATOR Blood Gas Ventilator Setting 18/500/PEEP5 Blood Gas Inspired Oxygen 60 % Fibrinogen 460 mg/dL (227-377) Result Diagram: 10/09/16 0520 10/09/16 0520 Microbiology Microbiology Date/Time Procedure Status Source Growth 10/08/16 11:48 Aerobic Blood Culture - Preliminary Resulted Blood Peripheral Klebsiella Pneumoniae 10/08/16 11:48 Anaerobic Blood Culture - Preliminary Resulted Gram Negative Jorge 10/08/16 12:20 Aerobic Blood Culture - Preliminary Resulted Blood Peripheral NO GROWTH IN 1 DAY 10/08/16 12:20 Anaerobic Blood Culture - Preliminary Resulted Blood Peripheral NO GROWTH IN 1 DAY 10/08/16 12:40 Urine Culture - Final Complete Urine Clean Catch 50-100,000 CFU/ML MIXED VIRGIL... Imaging Last Impressions Abdomen/Pelvis CT 10/08/16 1057 Signed Impressions: Service Date/Time: Saturday, October 08, 2016 11:14 - CONCLUSION: 1. Findings very suspicious for ischemic colon. Postsurgical findings with evidence of prior colectomy. There is evidence of bowel wall pneumatosis of the transverse colon in the region of anastomosis. Adjacent small bubbles of extraluminal gas but may be within the portal venous system or free also noted. These findings are highly suspicious for ischemic colon. 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 2. Marked nonspecific distention of the stomach. Alexandru Lynch MD Chest X-Ray 10/08/16 1042 Signed Impressions: Service Date/Time: Saturday, October 08, 2016 11:59 - CONCLUSION: Mild right midlung opacity likely representing subsegmental atelectasis. Mild cardiac silhouette enlargement unchanged. Alexandru Lynch MD Liver Ultrasound 07/12/16 0000 Signed Impressions: Service Date/Time: Tuesday, July 12, 2016 18:07 - CONCLUSION: 1. No acute abnormality demonstrated. 2. Heterogeneous liver without measurable mass. 3. Small and heterogeneous spleen without a measurable mass. 4. Cortical thinning and scarring of the right kidney. 5. Previous cholecystectomy. Calixto Woodruff MD Chest CT 07/09/16 0000 Signed Impressions: Service Date/Time: Saturday, July 09, 2016 14:43 - CONCLUSION: 1. Small right pleural effusion and minimal right basilar consolidation. 2. 6 mm left basilar nodule. Followup CT chest 6 months recommended. Florian Pepper MD Lower Extremity Ultrasound 06/25/16 0000 Signed Impressions: Service Date/Time: Saturday, June 25, 2016 15:56 - CONCLUSION: Negative exam with no evidence of deep venous thrombosis. Soft tissue edema. Mike Leija MD Port Line Insertion 06/20/16 0000 Signed Impressions: Service Date/Time: Monday, June 20, 2016 08:53 - CONCLUSION: Uncomplicated ultrasound and fluoroscopic guided implanted central venous port catheter placement as described in detail above. An 8 [place] [employer] port was placed. Kevan Salgado Jr., MD Procedures Stump debridement and wound VAC placement 06/16/16 TPN Skin biopsies, face 07/24/16 Exploratory laparotomy, ileostomy, colostomy, bowel resection 10/08/16 . 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 No other specific skin pathology noted. . (8) pulmonary nodule on CT scan, 2.6 mm at the left base (9) depression (10) COPD, not oxygen dependent (11) history of breast cancer (12) anxiety (13) anemia Symptom Scale: (1) pain 0-10 Scale: 6 (she has been receiving [place] and parenteral hydromorphone) Comment: Pain has been mostly abdominal and pain related to her multiple skin lesions. . (2) anxiety 0-10 Scale: 4 (she has had occasional doses of Xanax that she says helps, but her anxiety is worsening overall) Comment: Well controlled with scheduled alprazolam. Not needing breakthrough alprazolam at this time. . (3) depression 0-10 Scale: 4 (long-term, was on Celexa at home, now on Zoloft; remains tearful frequently) Comment: Reasonably well controlled with sertraline. . Pertinent Non-Medical Issues Psychosocial: Second marriage for about 1 year, but most of that time in the hospital or SNF. No children, but has close friend Anuradha. Spiritual: Evaluation pending Legal: The patient has capacity for decision-making, and has designated her friend Anuradha and her Dwight as primary and secondary HCS respectively Ethical issues impacting care: None. . Important Contacts Primary HCS, close friend Anuradha Christian [phone] : Dwight Wilson [phone] . Prognosis She has suffered multiple illnesses, infections, and complications during the last 10 months, and now has undergone emergency surgery for more ischemic bowel. Her overall prognosis is quite poor, and she would be an appropriate hospice candidate if her proxy decision makers elected to transition to comfort care. . Code Status: Full Code Plan ==FULL CODE ==GOALS: The patient has previously wanted to continue AGGRESSIVE CARE. She has been frustrated by all the complications and the debility caused by pain, anxiety, and depression. She has had a good understanding of hospice, as she has been the primary caregiver for 3 of her relatives who were on hospice and at end-of-life. Her friend/HCS Anuradha Christian is now reconsidering resuscitation status and continued aggressive care in light of the recent setback and surgery. ==DECISION-MAKING: The patient is now not capacitated for decision making, and has designated her close friend Anuradha Christian and her Dwight Wilson as primary and secondary HCS respectively. ==SYMPTOMS: * Pain: Now with recent surgery; fentanyl available * Anxiety: She was definitely improved on the current Xanax dosing. Now she is on propofol * Depression: I suspect most of her depression has been via a combination of some chronic depression (she had been on Celexa for quite some time at home) and some situational depression at this time. She has been on Zoloft here. == Friend/HCS Anuradha Christian will come see the patient again, and I have suggested she speak with Dr. Hill regarding the recent surgery and prognosis. She is considering requesting DNR status. ==Palliative Care will continue to follow the patient during this hospitalization to further assist with symptom management and to re-visit goals of medical treatment if there are significant changes in the course of her illness. . . Time Spent Total Floor Time (mins): 39 Face to Face Time (mins): 28 >50% Counseling/Coord of Care: Yes Attestation To help prompt me to consider important information that might be impacting today's encounter and assessment, information from prior notes written by myself or my colleagues may have been "brought forward" into today's note. My signature on this note, however, is an attestation that I personally performed the exam, history, and/or decision-making noted today, and, unless otherwise indicated, the interactions with patient, family, and staff as well as the review of records all occurred today. I also attest that the listed assessment and stated plan reflect my best clinical judgment today based on the combination of historical information, prior notes, and today's exam/ interactions. When time spent is documented, it refers only to time spent today by the signer, or if indicated, combined time spent today by collaborating physician/nurse practitioner. Dalila Edouard MD Oct 09, 2016 16:02
--- NOTE | 2016-10-09 16:20 | HHI.CCPN ---
Objective Vital Signs Date Time Temp Pulse Resp B/P Pulse Ox O2 Delivery O2 Flow Rate FiO2 10/09/16 16:03 99 40 10/09/16 10:00 121 10/09/16 08:00 99.1 18 105/47 10/08/16 15:20 Non-Rebreather 15 Intake and Output 10/08/16 10/08/16 10/09/16 08:00 16:00 00:00 Intake Total 3560 ml 1200 ml Output Total 900 ml 845 ml Balance 2660 ml 355 ml Result Diagram: 10/09/16 0520 10/09/16 0520 Other Results Microbiology Date/Time Procedure Status Source Growth 10/08/16 12:40 Urine Culture - Final Complete Urine Clean Catch 50-100,000 CFU/ML MIXED VIRGIL... Laboratory Tests Test 10/08/16 10/08/16 10/08/16 10/08/16 17:08 18:25 20:05 21:43 Blood Gas Puncture Site DRAWN IN OR DRAWN IN OR LT BRACHIAL PIETER Blood Gas Patient Temperature 98.6 98.6 98.6 98.6 Blood Gas HCO3 11 mmol/L 10 mmol/L 11 mmol/L 16 mmol/L (22-26) (22-26) (22-26) (22-26) Blood Gas Base Excess -16.3 mmol/L -17.5 mmol/L -18.1 mmol/L -8.5 mmol/L (-2-2) (-2-2) (-2-2) (-2-2) Blood Gas Oxygen Saturation 95 % (90-100) 94 % (90-100) 97 % (90-100) 97 % (90- 100) Arterial Blood pH 7.11 7.10 7.04 7.33 (7.380-7.420) (7.380-7.420) (7.380-7.420) (7.380-7.420) Arterial Blood Partial 38 mmHg (38-42) 35 mmHg (38-42) 41 mmHg (38-42) 32 mmHg ( 38-42) Pressure CO2 Arterial Blood Partial 195 mmHG 198 mmHG 416 mmHg 168 mmHg Pressure O2 (61-120) (61-120) (61-120) (61-120) Arterial Blood Oxygen Content 16.1 Vol % 18.8 Vol % 8.4 Vol % 10.9 Vol % (12.0-20.0) (12.0-20.0) (12.0-20.0) (12.0-20.0) Arterial Blood 1.3 % (0-4) 1.2 % (0-4) 0.7 % (0-4) 0.9 % (0-4) Carboxyhemoglobin Arterial Blood Methemoglobin 2.4 % (0-2) 2.4 % (0-2) 1.5 % (0-2) 1.2 % (0-2) Blood Gas Hemoglobin 11.8 G/DL 13.9 G/DL 5.4 G/DL 7.7 G/DL (12.0-16.0) (12.0-16.0) (12.0-16.0) (12.0-16.0) Oxygen Delivery Device OR VENTILATOR VENTILATOR Blood Gas Ventilator Setting AC/14/500/5PEEP AC20/500/PEEP5 Blood Gas Inspired Oxygen 100 % 60 % Test 10/09/16 05:38 Blood Gas Puncture Site PIETER Blood Gas Patient Temperature 98.6 Blood Gas HCO3 19 mmol/L (22-26) Blood Gas Base Excess -4.8 mmol/L (-2-2) Blood Gas Oxygen Saturation 97 % (90-100) Arterial Blood pH 7.39 (7.380-7.420) Arterial Blood Partial 33 mmHg (38-42) Pressure CO2 Arterial Blood Partial 151 mmHg Pressure O2 (61-120) Arterial Blood Oxygen Content 14.8 Vol % (12.0-20.0) Arterial Blood 1.2 % (0-4) Carboxyhemoglobin Arterial Blood Methemoglobin 1.1 % (0-2) Blood Gas Hemoglobin 10.7 G/DL (12.0-16.0) Oxygen Delivery Device VENTILATOR Blood Gas Ventilator Setting 18/500/PEEP5 Blood Gas Inspired Oxygen 60 % Objective Remarks Drips: LR 200 L per hour Levophed on standby GENERAL: Critically ill and pale appearing elderly female who is orotracheally intubated SKIN: Mottled right 1st toe, delayed cap refill. HEAD: Atraumatic. Normocephalic. EYES: Pupils equal and round. No scleral icterus. . ENT: No nasal bleeding or discharge. Mucous membranes pink and moist. NECK: Trachea midline. No JVD. CARDIOVASCULAR: Regular rate and rhythm. No murmurs rubs or gallops. RESPIRATORY: No accessory muscle use. Clear to auscultation. Breath sounds equal bilaterally. GASTROINTESTINAL: Abdominal binder in place Abdomen with VERNA drain with some serosanginous drainage in left lower abdomen. R ileostomy with blood clots in bag, mucosa dusky. Colostomy on Left with blood in bag, mucosa dusky. No bowel sounds. Wound vac in place midline with serosanginous output : Hamlin in place with yellow urine output. MUSCULOSKELETAL: Extremities without clubbing, cyanosis, or edema. S/p L BKA with stump incision healed. NEUROLOGICAL: Sedated postoperatively,. (initially unresponsive to deep noxious stimuli, later in evening reassessed and moving all extremities spontaneously and following commands) Procedures Left stump debridement by Dr. Hill on 06/15/16 Bedside debridement of preperitoneal fat that was protruding from the abdominal fistula 09/01/16 Date of Insertion: Jun 20, 2016 Side: Left A/P Assessment and Plan NEURO: Depression Peripheral neuropathy Propofol for sedation Daily sedation vacation Goal RASS -2. Attempt SBT A.M. RESP: Acute respiratory failure, respiratory acidosis COPD Ventilator bundle. Continue ACV tidal volume 500/rate 20/P5/FiO2 60% with sats 100%. (rate was increased from 14 due to respiratory acidosis) Will We'll wean FiO2 as tolerated. Check CXR for ETT position DuoNeb every 6 hours. Spontaneous breathing trials daily - start tomorrow CV: Peripheral arterial disease, status post left BKA Shock secondary to acute blood loss and sepsis Lactic acidemia Grade 1 diastolic dysfunction Off Levophed SVV goal 10-15 Received 5 L crystalloid in OR. Transfused 4 units PRBC now. Continue to monitor UOP closely as marker of perfusion (currently adequate 150/ hr) and trend lactic acid. Received 4 Amps of bicarbonate per Dr. Olvera GI: Ischemic colitis with perforation of transverse colon, s/o resection 5-6 inches of transverse colon with creation of ileostomy and colostomy (mucous fistula). GERD Elevated transaminases probable secondary to sepsis and ischemic hepatopathy Trend LFTs. NPO. NG tube in right nare to low intermittent wall suction. VERNA in place, monitor output. Abdominal fascia is closed. Wound VAC is in place. Bleeding noted at ileostomy/colostomy, mucosa dusky. Dr. Olvera aware, felt to be related to underresuscitation. . Transfusing. Pre-albumin low Continue TPN Protonix 40 mg IV daily for stress ulcer prophylaxis. FEN/RENAL: Acute kidney injury Acute anion gap metabolic acidemia Lactic acidemia Hypomagnesemia (resolved) Hypocalcemia Hamlin in place. Monitor intake and output. Since stat electrolytes including magnesium and phosphate and replace as indicated. Avoid nephrotoxins. Good urine output Electrolyte replacement as needed ID: Septic shock secondary to intrabdominal sepsis with mesenteric ischemia, bowel perforation and leak. Continue cefepime, vancomycin, fluconazole. Added metronidazole 500 mg IV every 8 hours for anaerobic coverage. Follow-up blood culture 2 sets and urine culture 10/08. HEME: Acute blood loss anemia Coagulopathy Bleeding noted at ileostomy/colostomy - resolved Dr. Olvera aware. Previously on Xarelto. Last dose 10/08 10 am. Received K Centra 23 units/kg on 10/08/16. Received 2 units FFP in OR. Stat coags and fibrinogen now. Transfuse 4 units PRBC for Hgb 5 and f/u CBC. Calcium chloride 2 g IV now. ENDO: Euglycemic PROPH: Hold pharmacologic DVT prophylaxis secondary to bleeding. Protonix 40 mg IV daily for stress ulcer prophylaxis. ACCESS: Right IJ central venous line placed in OR 10/08 #1, left brachial art line placed in OR 10/08 #1. Discussed with Dr. Olvera. Critical care time 35 minutes exclusive of separately billable procedures Omer Robles MD Oct 09, 2016 16:20
[2016-10-09] MEDS: ENOXAPARIN SODIUM 40 MG/0.4 ML SYRINGE SQ SCH (18:29)
[2016-10-09] MEDS: MIRTAZAPINE ODT 15 MG TAB PO SCH (19:53)
[2016-10-09] MEDS: PANTOPRAZOLE SODIUM 40 MG VIAL IV PUSH SCH (22:10)
[2016-10-09] MEDS: CLINIMIX E 5/25 2000 mL- >42 mls/hr IV-CENTRAL SCH ×3 (22:10)
[2016-10-09] MEDS: FLUCONAZOLE 200 MG PREMIX BAG 100 ML IV SCH (22:11)
[2016-10-09] MEDS: VANCOMYCIN 1,000 MG/NS 250 ML IV SCH ×2 (22:11)
--- NOTE | 2016-10-09 22:25 | HHI.IDPN ---
Subjective Subjective Remarks Delayed entry - pt was seen around 1230 pm ID reconsulted previously seen by Dr Greenfield Chart reviewed 71 y.o. 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 managed nonoperatively on TPN. Pt also has severe PAD s/p BKA for gangrene of L foot. Pt's most recent admission 06/14/[address] Olvera due to dehiscence of BKA for which she underwent debridement and has been treated with Ertapenem She was later treated with vancomycin for coag neg staph sepsis She has remained hospitalized at [place] while awaiting placement. Yesterday morning pt become hypotensive, WBC went up to 54K and lactic acid was 10.3. CT abd/pelvis demonstrated pneumatosis of transverse colon near site of prior anastomosis. She was transferred emergently to [facility] where she underwent emergent ex lap that demonstrated ischemia with perforation and leak. She underwent resection of ~ 5-6 inches of small bowel and transverse colon with creation of ileostomy and colostomy (for mucous fistula) with fascial closure and wound vac placement by Dr Olvera. She is doing better this am, off pressors by 3 am, remains on vent,m on TPN and is making urine Her blood clx growing GBR in both sets He has a h/o ESBL infction during this admission She was starated on broad spectruma abx (cefepiem, vancomycin, flagyl) and ID consultation was requested Antibiotics Vancomycin cefepime flagyl Lines Port Past Medical History 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 Vital Signs Date Time Temp Pulse Resp B/P Pulse Ox O2 Delivery O2 Flow Rate FiO2 10/09/16 20:02 99 40 10/09/16 20:00 118 10/09/16 20:00 98.1 116 20 114/81 98 10/09/16 20:00 40 10/09/16 18:00 119 10/09/16 16:03 99 40 10/09/16 16:00 60 10/09/16 16:00 97.7 112 18 126/59 100 Arterial Line 10/09/16 16:00 112 10/09/16 12:00 115 10/09/16 12:00 60 10/09/16 12:00 97.3 115 18 101/52 97 10/09/16 11:40 98 40 10/09/16 11:25 40 10/09/16 10:00 121 10/09/16 08:15 97 50 10/09/16 08:00 99.1 121 18 105/47 97 10/09/16 08:00 121 10/09/16 08:00 60 10/09/16 06:00 122 10/09/16 04:00 97.9 120 22 107/50 100 10/09/16 04:00 60 10/09/16 04:00 120 10/09/16 03:36 98 60 10/09/16 02:00 120 10/09/16 00:00 109 10/09/16 00:00 60 10/09/16 00:00 97.3 109 20 140/72 100 10/08/16 22:42 100 60 10/08/16 22:21 97.4 108 20 120/59 100 10/08/16 10/08/16 10/09/16 15:00 23:00 07:00 Intake Total 3560 ml 1200 ml 3001 ml Output Total 200 ml 1545 ml 1550 ml Balance 3360 ml -345 ml 1451 ml Intake Oral 210 ml IV Total 3350 ml 700 ml 1966 ml TPN/PPN 351 ml Lipid 184 ml Packed Cells 500 ml 500 ml Output Urine Total 200 ml 1150 ml 1400 ml Stool Total 185 ml 40 ml Gastric Drainage Total 200 ml 100 ml Drainage Total 10 ml 10 ml # Voids 2 # Bowel Movements 3 . Laboratory Tests Test 10/08/16 10/08/16 10/09/16 10/09/16 10:47 20:35 03:15 05:20 White Blood Count 54.8 TH/MM3 30.7 TH/MM3 19.2 TH/MM3 18.7 TH/MM3 Red Blood Count 3.43 MIL/MM3 1.70 MIL/MM3 3.82 MIL/MM3 3.70 MIL/MM3 Hemoglobin 10.4 GM/DL 5.0 GM/DL 11.4 GM/DL 11.0 GM/DL Hematocrit 31.1 % 15.7 % 32.7 % 31.5 % Mean Corpuscular Volume 90.8 FL 92.3 FL 85.8 FL 85.0 FL Mean Corpuscular Hemoglobin 30.5 PG 29.3 PG 29.8 PG 29.9 PG Mean Corpuscular Hemoglobin 33.6 % 31.7 % 34.7 % 35.1 % Concent Red Cell Distribution Width 15.7 % 16.7 % 17.1 % 17.1 % Platelet Count 477 TH/MM3 264 TH/MM3 210 TH/MM3 200 TH/MM3 Mean Platelet Volume 7.0 FL 8.0 FL 7.7 FL 8.2 FL Neutrophils (%) (Auto) 97.4 % 93.5 % 93.7 % Lymphocytes (%) (Auto) 1.9 % 4.3 % 3.9 % Monocytes (%) (Auto) 0.5 % 1.7 % 2.1 % Eosinophils (%) (Auto) 0.0 % 0.3 % 0.2 % Basophils (%) (Auto) 0.2 % 0.2 % 0.1 % Neutrophils # (Auto) 53.4 TH/MM3 18.0 TH/MM3 17.5 TH/MM3 Lymphocytes # (Auto) 1.0 TH/MM3 0.8 TH/MM3 0.7 TH/MM3 Monocytes # (Auto) 0.3 TH/MM3 0.3 TH/MM3 0.4 TH/MM3 Eosinophils # (Auto) 0.0 TH/MM3 0.1 TH/MM3 0.0 TH/MM3 Basophils # (Auto) 0.1 TH/MM3 0.0 TH/MM3 0.0 TH/MM3 CBC Comment AUTO DIFF AUTO DIFF AUTO DIFF Differential Total Cells 100 100 100 Counted Neutrophils % (Manual) 53 % 49 % 44 % Band Neutrophils % 44 % 50 % 47 % Lymphocytes % 1 % 1 % 5 % Monocytes % 2 % 2 % Neutrophils # (Manual) 53.2 TH/MM3 19.0 TH/MM3 17.4 TH/MM3 Differential Comment FINAL DIFF FINAL DIFF FINAL DIFF MANUAL MANUAL MANUAL Platelet Estimate NORMAL NORMAL Platelet Morphology Comment NORMAL NORMAL Red Cell Morphology Comment NORMAL Metamyelocytes 2 % Nucleated Red Blood Cells 1 /100 WBC Toxic Vacuolation PRESENT Ovalocytes 1+ Acanthocytes 1+ Laboratory Tests Test 10/08/16 10/08/16 10/08/16 10/08/16 10:47 11:48 16:00 20:50 Sodium Level 141 MEQ/L 145 MEQ/L Potassium Level 4.1 MEQ/L 4.5 MEQ/L Chloride Level 106 MEQ/L 104 MEQ/L Carbon Dioxide Level 11.2 MEQ/L 18.9 MEQ/L Anion Gap 24 MEQ/L 22 MEQ/L Blood Urea Nitrogen 40 MG/DL 29 MG/DL Creatinine 2.70 MG/DL 1.90 MG/DL Estimat Glomerular Filtration 17 ML/MIN 26 ML/MIN Rate Random Glucose 118 MG/DL 254 MG/DL Calcium Level 9.0 MG/DL 6.7 MG/DL Magnesium Level 1.3 MG/DL 2.4 MG/DL Total Bilirubin 0.4 MG/DL 0.4 MG/DL Direct Bilirubin 0.3 MG/DL Indirect Bilirubin 0.1 MG/DL Aspartate Amino Transf 95 U/L 69 U/L (AST/SGOT) Alanine Aminotransferase 77 U/L 53 U/L (ALT/SGPT) Alkaline Phosphatase 204 U/L 106 U/L Total Protein 6.8 GM/DL 4.8 GM/DL Albumin 2.5 GM/DL 2.0 GM/DL Lipase 275 U/L Lactic Acid Level 10.3 mmol/L 7.5 mmol/L 10.9 mmol/L Protein Corrected Calcium 7.9 MG/DL Phosphorus Level 6.1 MG/DL Test 10/09/16 10/09/16 01:05 05:20 Lactic Acid Level 8.1 mmol/L 4.9 mmol/L Sodium Level 145 MEQ/L Potassium Level 3.9 MEQ/L Chloride Level 110 MEQ/L Carbon Dioxide Level 21.9 MEQ/L Anion Gap 13 MEQ/L Blood Urea Nitrogen 26 MG/DL Creatinine 1.43 MG/DL Estimat Glomerular Filtration 36 ML/MIN Rate Random Glucose 255 MG/DL Calcium Level 7.9 MG/DL Magnesium Level 1.9 MG/DL Total Bilirubin 1.2 MG/DL Aspartate Amino Transf 71 U/L (AST/SGOT) Alanine Aminotransferase 56 U/L (ALT/SGPT) Alkaline Phosphatase 88 U/L Total Protein 4.9 GM/DL Albumin 1.8 GM/DL Lipase 62 U/L Microbiology Date/Time Procedure Status Source Growth 10/08/16 11:48 Aerobic Blood Culture - Preliminary Resulted Blood Peripheral Klebsiella Pneumoniae 10/08/16 11:48 Anaerobic Blood Culture - Preliminary Resulted Gram Negative Jorge 10/08/16 12:20 Aerobic Blood Culture - Preliminary Resulted Blood Peripheral NO GROWTH IN 1 DAY 10/08/16 12:20 Anaerobic Blood Culture - Preliminary Resulted Blood Peripheral NO GROWTH IN 1 DAY 10/08/16 12:40 Urine Culture - Final Complete Urine Clean Catch 50-100,000 CFU/ML MIXED VIRGIL... Imaging Liver Ultrasound 07/12/16 0000 Signed Impressions: Service Date/Time: Tuesday, July 12, 2016 18:07 - CONCLUSION: 1. No acute abnormality demonstrated. 2. Heterogeneous liver without measurable mass. 3. Small and heterogeneous spleen without a measurable mass. 4. Cortical thinning and scarring of the right kidney. 5. Previous cholecystectomy. Calixto Woodruff MD Chest CT 07/09/16 0000 Signed Impressions: Service Date/Time: Saturday, July 09, 2016 14:43 - CONCLUSION: 1. Small right pleural effusion and minimal right basilar consolidation. 2. 6 mm left basilar nodule. Followup CT chest 6 months recommended. Florian Pepper MD Chest X-Ray 07/08/16 0000 Signed Impressions: Service Date/Time: Friday, July 08, 2016 16:26 - CONCLUSION: Chronic right lung base opacity unchanged. No new pulmonary opacity. Alexandru Lynch MD Lower Extremity Ultrasound 06/25/16 0000 Signed Impressions: Service Date/Time: Saturday, June 25, 2016 15:56 - CONCLUSION: Negative exam with no evidence of deep venous thrombosis. Soft tissue edema. Mike Leija MD Port Line Insertion 06/20/16 0000 Signed Impressions: Service Date/Time: Monday, June 20, 2016 08:53 - CONCLUSION: Uncomplicated ultrasound and fluoroscopic guided implanted central venous port catheter placement as described in detail above. An 8 [employer] port was placed. Kevan Salgado Jr., MD Chest X-Ray 06/17/16 0000 Signed Impressions: Service Date/Time: Friday, June 17, 2016 14:12 - CONCLUSION: Right base infiltrate and small effusion. Calixto Woodruff MD Physical Exam CONSTITUTIONAL/GENERAL: sedated int'd on mech vent in no apparent distress. TUBES/LINES/DRAINS: PORT in place L chest , no skin changes New ly placed R IJ SKIN: No jaundice, rashes, or lesions. Skin temperature appropriate. Not diaphoretic. HEAD: Atraumatic. Normocephalic. EYES: Pupils equal and round and reactive. Extraocular motions intact. No scleral icterus. No injection or drainage. Fundi not examined. ENT:Nose without bleeding or purulent drainage. Oral mucosae without visible erythema, exudates, masses, or lesions. Orally intubated NECK: Trachea midline. Supple, nontender. . CARDIOVASCULAR: Regular rate and rhythm without murmurs, gallops, or rubs. No JVD. RESPIRATORY/CHEST: Symmetric, unlabored respirations. Clear to auscultation. Breath sounds equal bilaterally. No wheezes, rales, or rhonchi. GASTROINTESTINAL: Abdomen with VAC in place with serosang d/c distended Mucoid fistula in LLQ and ileostomy in RLQ with dark blood present GENITOURINARY: Without palpable bladder distension. Hamlin catheter in place with clear yellow urine MUSCULOSKELETAL: Extremities without clubbing, cyanosis, + mild edema. Well healed L BKA No mottling or clubbing. LYMPHATICS: No palpable cervical or supraclavicular adenopathy. NEUROLOGICAL: Sedated PSYCHIATRIC: Unav]ble to assess 2/2 mental status Assessment & Plan Remarks IMPRESSION ischemic bowel, perforation sp emergent resection 10/08 Sepsis 2/2 ischemic bowel and perforation GNR bacteremia Recent h/o Infection LBKA stump, C/S Klebsiella ESBL+ and Morganella Multiple Abx allergy - has tolerated Ertapenem and Cephalosporins in the past PVD Recent Staph hominis sepsis, has MV vegetation sp tx with vancomycvin RECOMMENDATION Dc cefepime Start meropenem Continue Vancomycin for now fu blood clx dw Dr Tri Arroyo,Roxana Cardenas MD Oct 09, 2016 22:25
[2016-10-10] VITALS (17 sets, daily range): BP systolic 95–133; BP diastolic 48–63; PULSE 114–127; RESP 14–32; TEMP 98–98.6; O2SAT 92–98
[2016-10-10] MEDS: PROPOFOL 1000 MG/100 ML INJ 100 ML IV SCH (02:08)
[2016-10-10] MEDS: MEROPENEM INJ 1,000 MG in SODIUM CHLORIDE 0.9% INJ 100 ML IV SCH ×2 (02:08→22:41)
[2016-10-10] MEDS: SODIUM CHLOR 0.9% 1000 ML INJ 1,000 ML IV SCH ×4 (02:09→14:28)
[2016-10-10] MEDS: INSULIN ASPART SUPPLEMENTAL SCALE SQ SCH ×4 (03:15→21:15)
[2016-10-10] MEDS: RESP: ALBUTEROL 2.5 MG/IPRATROPIUM 0.5 MG NEB (SCH) NEB ×4 (03:49→21:06)
[2016-10-10 05:06] LABS: AUTOMATED NEUTROPHIL # 11.3 TH/MM3 (1.8-7.7); BASOPHIL # 0.1 TH/MM3 (0-0.2); BASOPHIL % 0.6 % (0.0-2.0); EOSINOPHIL # 0.2 TH/MM3 (0-0.4); EOSINOPHIL % 1.8 % (0.0-4.0); HEMATOCRIT 26.4 % (35.0-46.0); LYMPH % 11.7 % (9.0-44.0); LYMPHOCYTE # 1.6 TH/MM3 (1.0-4.8); MEAN CELL VOLUME 86.1 FL (80.0-100.0); MEAN CORPUSCULAR HEMOGLOBIN 29.4 PG (27.0-34.0); MEAN CORPUSCULAR HGB CONC 34.1 % (32.0-36.0); MONO % 3.1 % (0.0-8.0); NEUT % 82.8 % (16.0-70.0); PLATELET COUNT 132 TH/MM3 (150-450); RED BLOOD COUNT 3.07 MIL/MM3 (4.00-5.30); WHITE BLOOD COUNT 13.6 TH/MM3 (4.0-11.0)
--- NOTE | 2016-10-10 05:17 | RADRPT ---
EXAM DATE/TIME: 10/10/2016 04:22 [place] COMPARISON: No previous studies available for comparison. INDICATIONS : Respiratory failure. MEDICAL HISTORY : None. SURGICAL HISTORY : None. ENCOUNTER: Subsequent ACUITY: 3 days PAIN SCORE: Non-responsive. LOCATION: Bilateral chest FINDINGS: Worsening basilar consolidation. Small pleural effusions, especially on the left. No pneumothorax. Heart size upper limits of normal, unchanged. Endotracheal tube tip is about 4 cm above the skyla. There is a nasogastric tube coursing into the s tomach. Bilateral internal jugular central venous catheters are present, tips in the superior vena ca va. CONCLUSION: Worsening bibasilar consolidation and small effusions, especially on the left. Calixto Woodruff MD on October 10, 2016 at 5:13 Board Certified Radiologist. This report was verified electronically.
[2016-10-10 05:18] LABS: HEMO FLAGS AUTO DIFF
[2016-10-10] MEDS: ALPRAZolam 0.25 MG TAB PO SCH ×3 (05:21→20:52)
[2016-10-10 05:23] LABS: BLOOD GAS BASE EXCESS -2.8 mmol/L (-2-2); BLOOD GAS CARBOXYHEMOGLOBIN 0.9 % (0-4); BLOOD GAS HCO3 22 mmol/L (22-26); BLOOD GAS METHEMOGLOBIN 0.9 % (0-2); BLOOD GAS O2 HGB SATURATION 94 % (90-100); BLOOD GAS OXYGEN CONTENT 13.8 Vol % (12.0-20.0); BLOOD GAS PCO2 40 mmHg (38-42); BLOOD GAS PO2 81 mmHg (61-120); BLOOD GAS TOTAL HGB 10.4 G/DL (12.0-16.0); CRITICAL VALUE NO; OXYGEN DEVICE VENTILATOR; TEMP CORR TO 98.6
[2016-10-10] MEDS: metroNIDAZOLE 500 MG INJ 100 ML IV SCH ×3 (05:23→20:50)
[2016-10-10 05:24] LABS: DRAW SITE LT RADIAL; FIO2 40 %; NUMBER OF ARTERIAL PUNCTURES 1; STAT NO; ULNAR PULSE PRESENT; VENT SETTINGS AC18/500/5PEEP
[2016-10-10] MEDS ORDERED: LACTATED RINGER'S 1000 ML INJ 1,000 ML IV ONE (05:45)
[2016-10-10 05:51] LABS: ALKALINE PHOSPHATASE 61 U/L (45-117); ALT (GPT) 44 U/L (10-53); ANION GAP 10 MEQ/L (5-15); AST (GOT) 32 U/L (15-37); BICARBONATE 22.5 MEQ/L (21.0-32.0); BLOOD UREA NITROGEN 24 MG/DL (7-18); CHLORIDE 116 MEQ/L (98-107); GLOMERULAR FILTRATION RATE 57 ML/MIN (>89); MAGNESIUM 1.7 MG/DL (1.5-2.5); SODIUM (NA) 148 MEQ/L (136-145); TOTAL BILIRUBIN ADULT 0.8 MG/DL (0.2-1.0)
[2016-10-10] MEDS ORDERED: METOPROLOL TARTRATE 5 MG/5 ML VIAL ONE ×2 (08:26→08:29)
[2016-10-10] MEDS ORDERED: ADENOSINE IV SOLN 3 MG/ML 2 ML VIAL ONE (08:29)
[2016-10-10] MEDS ORDERED: ADENOSINE IV SOLN 3 MG/ML 2 ML VIAL IV PUSH ONE ×2 (08:30→09:15)
[2016-10-10] MEDS ORDERED: METOPROLOL TARTRATE 5 MG/5 ML VIAL IV PUSH ONE ×2 (08:30→10:00)
[2016-10-10 08:41] LABS: BANDS 16 % (0-6); METAMYELOCYTES 1 % (0-1); NEUTROPHIL # MANUAL DIFF 12.1 TH/MM3 (1.8-7.7); POLYS (SEG NEUTROPHILS) 72 % (16-70); SCAN/DIFF FINAL DIFF MANUAL; WBC DIFF SAMPLE 100
[2016-10-10 08:43] LABS: ACANTHOCYTES 1+ (NORMAL); PLATELET ESTIMATE SMEAR LOW (NORMAL); PLATELET MORPHOLOGY NORMAL (NORMAL)
[2016-10-10 08:44] LABS: BURR CELLS 1+ (NORMAL)
[2016-10-10] MEDS ORDERED: ALBUMIN HUMAN 5% 12.5 GM/250 ML BOTTLE IV STA (08:57)
[2016-10-10] MEDS: FERROUS SULFATE 325 MG (65 MG ELEMENTAL IRON) TAB PO SCH (09:00)
[2016-10-10] MEDS: NYSTATIN 100,000 U/GM PWD 15 GM BTL TOPICAL SCH ×2 (09:00→21:00)
[2016-10-10] MEDS: DULoxetine HCl DR 30 MG CAP PO SCH (09:00)
[2016-10-10] MEDS ORDERED: ALBUMIN HUMAN 5% 12.5 GM/250 ML BOTTLE IV ONE (09:00)
[2016-10-10] MEDS: fentaNYL DRIP 250 ML IV SCH (09:50)
[2016-10-10] MEDS: CALCIUM/VITAMIN D 250 MG/125 U TAB PO SCH ×2 (09:50→20:52)
[2016-10-10] MEDS: CALCITRIOL 0.25 MCG CAP PO SCH (09:51)
[2016-10-10] MEDS: SODIUM CHLORIDE 0.9% FLUSH 5 ML FLUSH IVF SCH ×2 (09:51→20:53)
[2016-10-10] MEDS: ZINC SULFATE 220 MG CAP PO SCH (09:51)
[2016-10-10] MEDS: MULTIVITAMIN TAB PO SCH (09:51)
[2016-10-10] MEDS: CHLORHEXIDINE 0.12% (ORAL KIT) 15 ML CUP MT SCH ×2 (09:52→20:00)
[2016-10-10] MEDS ORDERED: SODIUM CHLOR 0.9% 1000 ML INJ 1,000 ML IV ONE (10:00)
--- NOTE | 2016-10-10 10:03 | HHI.CCPN ---
Subjective Remarks/Hospital Course 71-year-old female with an asthma, prior tobacco abuse, mesenteric ischemia with prior partial small bowel resection and right cherry-colectomy with anastomosis, severe PAD s/p BKA for gangrene of L foot. 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 Fistual was managed nonoperatively due to concern for short gut syndrome as well as surgical risk/malnutrition. She has been on TPN. Fistula has been recurrent and has prompted several admissions. Her most recent admission 06/14/[address] Olvera due to dehiscence of BKA for which she underwent debridement and has been treated with antibiotics per ID. She has remained hospitalized at [facility] while awaiting placement. On the morning of 10/08 she had become hypotensive, WBC 54 k with lactic acid 10.3. CT abd/pelvis demonstrated pneumatosis of transverse colon near site of prior anastomosis. She was transferred emergently to [facility] where she underwent emergent ex lap that demonstrated ischemia with perforation and leak. She underwent resection of ~ 5-6 inches of small bowel and transverse colon with creation of ileostomy and colostomy (for mucous fistula) with fascial closure and wound vac placement by Dr Olvera. She is chronically on Xarelto for which she was given Kcentra preoperatively; 2 units FFP in OR. She received 5 L of crystalloid intraoperatively. She remains intubated postoperatively. She is normotensive , now off low-dose levophed, but pale and underperfused appearing in need of further resuscitation. Objective Vital Signs Date Time Temp Pulse Resp B/P Pulse Ox O2 Delivery O2 Flow Rate FiO2 10/10/16 08:19 92 Nasal Cannula 4 10/10/16 07:34 40 10/10/16 06:00 120 10/10/16 04:00 98.5 18 95/52 Intake and Output 10/09/16 10/09/16 10/09/16 07:59 15:59 23:59 Intake Total 3001 ml 2625 ml 2432 ml Output Total 1550 ml 1040 ml 1250 ml Balance 1451 ml 1585 ml 1182 ml Result Diagram: 10/10/16 0445 10/10/16 0445 Other Results Microbiology Date/Time Procedure Status Source Growth 10/08/16 12:40 Urine Culture - Final Complete Urine Clean Catch 50-100,000 CFU/ML MIXED VIRGIL... Laboratory Tests Test 10/10/16 05:15 Blood Gas Puncture Site LT RADIAL Blood Gas Patient Temperature 98.6 Blood Gas HCO3 22 mmol/L (22-26) Blood Gas Base Excess -2.8 mmol/L (-2-2) Blood Gas Oxygen Saturation 94 % (90-100) Arterial Blood pH 7.36 (7.380-7.420) Arterial Blood Partial 40 mmHg (38-42) Pressure CO2 Arterial Blood Partial 81 mmHg Pressure O2 (61-120) Arterial Blood Oxygen Content 13.8 Vol % (12.0-20.0) Arterial Blood 0.9 % (0-4) Carboxyhemoglobin Arterial Blood Methemoglobin 0.9 % (0-2) Blood Gas Hemoglobin 10.4 G/DL (12.0-16.0) Oxygen Delivery Device VENTILATOR Blood Gas Ventilator Setting AC18/500/5PEEP Blood Gas Inspired Oxygen 40 % Objective Remarks Drips: LR 200 L per hour Levophed on standby GENERAL: Critically ill and pale appearing elderly female who is orotracheally intubated SKIN: Mottled right 1st toe, delayed cap refill. HEAD: Atraumatic. Normocephalic. EYES: Pupils equal and round. No scleral icterus. . ENT: No nasal bleeding or discharge. Mucous membranes pink and moist. NECK: Trachea midline. No JVD. CARDIOVASCULAR: Regular rate and rhythm. No murmurs rubs or gallops. RESPIRATORY: No accessory muscle use. Clear to auscultation. Breath sounds equal bilaterally. GASTROINTESTINAL: Abdominal binder in place Abdomen with VERNA drain with some serosanginous drainage in left lower abdomen. R ileostomy with blood clots in bag, mucosa dusky. Colostomy on Left with blood in bag, mucosa dusky. No bowel sounds. Wound vac in place midline with serosanginous output : Hamlin in place with yellow urine output. MUSCULOSKELETAL: Extremities without clubbing, cyanosis, or edema. S/p L BKA with stump incision healed. NEUROLOGICAL: Sedated postoperatively,. (initially unresponsive to deep noxious stimuli, later in evening reassessed and moving all extremities spontaneously and following commands) Procedures Left stump debridement by Dr. Hill on 06/15/16 Bedside debridement of preperitoneal fat that was protruding from the abdominal fistula 09/01/16 Date of Insertion: Jun 20, 2016 Side: Left A/P Assessment and Plan 71-year-old female with an asthma, prior tobacco abuse, mesenteric ischemia with prior partial small bowel resection and right cherry-colectomy with anastomosis, severe PAD s/p BKA for gangrene of L foot. 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 Fistula was managed nonoperatively due to concern for short gut syndrome as well as surgical risk/malnutrition. She has been on TPN. Fistula has been recurrent and has prompted several admissions. Her most recent admission 06/14/[address] Olvera due to dehiscence of BKA for which she underwent debridement and has been treated with antibiotics per ID. She has remained hospitalized at [facility] while awaiting placement. On the morning of 10/08 she had become hypotensive, WBC 54 k with lactic acid 10.3. CT abd/pelvis demonstrated pneumatosis of transverse colon near site of prior anastomosis. She was transferred emergently to [facility] where she underwent emergent ex lap that demonstrated ischemia with perforation and leak. She underwent resection of ~ 5-6 inches of small bowel and transverse colon with creation of ileostomy and colostomy (for mucous fistula) with fascial closure and wound vac placement by Dr Olvera. She is chronically on Xarelto for which she was given Kcentra preoperatively; 2 units FFP in OR. She received 5 L of crystalloid intraoperatively. She remains intubated postoperatively. She is normotensive , now off low-dose levophed, but pale and underperfused appearing in need of further resuscitation. Acute respiratory failure - with respiratory acidosis - improving - DuoNeb every 6 hours. - Spontaneous breathing trial - did well and extubated COPD - no exacerbation - no indication for steroids - continue Aerosols Depression - resume home meds when OK with surgery to p.o. Peripheral neuropathy - status post left BKA - supportive care Shock secondary to acute blood loss and sepsis - resolved - continue i.v. fluids Grade 1 diastolic dysfunction - strict BP control Ischemic colitis with perforation of transverse colon, - status post resection 5-6 inches of transverse colon with creation of ileostomy and colostomy (mucous fistula). - NPO. - NG tube in right nare to low intermittent wall suction. - VERNA in place, monitor output. - Abdominal fascia is closed. - Wound VAC is in place. - Continue TPN - further per general surgery GERD - PPI i.v. Acute kidney injury - pre-renal - Hamlin in place. - Monitor intake and output. - void nephrotoxins. - Good urine output - Electrolyte replacement per ICU protocol Septic shock - secondary to intrabdominal sepsis with mesenteric ischemia, bowel perforation and leak. - Continue cefepime, vancomycin, fluconazole. - Added metronidazole 500 mg IV every 8 hours for anaerobic coverage. - Follow-up blood culture 2 sets and urine culture 10/08 - Further ATB per ID Acute blood loss anemia - Bleeding noted at ileostomy/colostomy - resolved - Previously on Xarelto - continue to hold - Transfuse 4 units PRBC 10/08 Prophylaxis - Hold pharmacologic DVT prophylaxis secondary to bleeding. Protonix 40 mg IV daily for stress ulcer prophylaxis. ACCESS: Right IJ central venous line placed in OR 10/08 #1, left brachial art line placed in OR 10/08 #1. Level 3 Omer Robles MD Oct 10, 2016 10:03
[2016-10-10] MEDS ORDERED: ICU - SODIUM PHOSPHATE 30 MMOL/NS 250 ML IV PRN ×2 (12:00)
[2016-10-10] MEDS ORDERED: FUROSEMIDE 20 MG/2 ML VIAL IV PUSH ONE (12:00)
[2016-10-10] MEDS ORDERED: ICU - CALL ORDERING PHYSICIAN XX PRN (12:00)
[2016-10-10] MEDS ORDERED: ICU - POTASSIUM PHOSPHATE 30 MMOL/NS 250 ML IV PRN ×2 (12:00)
[2016-10-10] MEDS ORDERED: ICU - POTASSIUM PHOSPHATE MONOBASIC 500 MG TAB PO/TUBE PRN (12:00)
[2016-10-10] MEDS ORDERED: ICU - MAGNESIUM OXIDE 400 MG TAB PO PRN (12:00)
[2016-10-10] MEDS ORDERED: ICU - D/C ICU ELECTROLYTE ORDERS XX PRN (12:00)
[2016-10-10] MEDS ORDERED: ICU - MAGNESIUM SULFATE 2 GM/NS 100 ML IV PRN ×2 (12:00)
[2016-10-10] MEDS ORDERED: ICU - MAGNESIUM SULFATE 4 GM/NS 100 ML IV PRN ×2 (12:00)
[2016-10-10] MEDS: ICU - POTASSIUM CHLORIDE/AQUEOUS SOLN 40 MEQ/100 ML IVPB IV PRN ×2 (13:50→15:46)
[2016-10-10] MEDS: MAGNESIUM SULFAT 1 GM PREMIX 100 ML x2 bags IV SCH ×2 (13:50→15:46)
[2016-10-10] MEDS: METOPROLOL TARTRATE 5 MG/5 ML VIAL IV PUSH SCH ×2 (14:58→18:46)
--- NOTE | 2016-10-10 15:07 | HHI.CCPN ---
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 She underwent at that time right colectomy, resection of a large amount of small bowel; this was followed by another surgery or two in the next month or two and the patient then recovered. 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 The patient was now in a rehab setting at [facility] doing very well for a year and then this morning suddenly developed hypotension, leukocytosis, sepsis and had to be immediately transferred to the main hospital for further care. Patient underwent exploratory laparotomy with resection of the segment of the large bowel containing the anastomosis to the small bowel and the fistula, end ileostomy and mucous fistula colostomy creation and removal of segments of ventral hernia mesh placed at some point many years in the past It should be noted that patient was on Xarelto and received PCC FFP and 4 units of PRBCs The massive metabolic acidosis has since corrected and so has the hypotension 24 Hour Review/Hospital Course 10/09/16 Status post exploratory laparotomy bowel resection and ileostomy and colostomy mucous fistula creation Patient is doing much better at this time Spend the night on the ventilator with the gradually correcting metabolic acidosis the hypovolemia and septic shock Gram-negative organisms in the blood stream consistent with the previous history of ESBL 10/10/16 For last 24 hours patient has been intubated and she has been successfully extubated this morning by the medical cosmetician apprentice Patient is still volume overloaded and now mobilizing third space shows she will need diuresis to prevent intravascular overload at this point considering the last 48 hours patient has been massively third spacing Doing well at this time Spoken to her was very grateful for care Objective Vital Signs Date Time Temp Pulse Resp B/P Pulse Ox O2 Delivery O2 Flow Rate FiO2 10/10/16 12:00 119 10/10/16 12:00 98.5 14 99/48 95 10/10/16 08:30 Venturi Mask 50 10/10/16 08:19 4.00 Intake and Output 10/09/16 10/09/16 10/10/16 08:00 16:00 00:00 Intake Total 3001 ml 2625 ml 2432 ml Output Total 1550 ml 1040 ml 1250 ml Balance 1451 ml 1585 ml 1182 ml Result Diagram: 10/10/16 0445 10/10/16 0445 Other Results Microbiology Date/Time Procedure Status Source Growth 10/08/16 12:40 Urine Culture - Final Complete Urine Clean Catch 50-100,000 CFU/ML MIXED VIRGIL... Laboratory Tests Test 10/10/16 05:15 Blood Gas Puncture Site LT RADIAL Blood Gas Patient Temperature 98.6 Blood Gas HCO3 22 mmol/L (22-26) Blood Gas Base Excess -2.8 mmol/L (-2-2) Blood Gas Oxygen Saturation 94 % (90-100) Arterial Blood pH 7.36 (7.380-7.420) Arterial Blood Partial 40 mmHg (38-42) Pressure CO2 Arterial Blood Partial 81 mmHg Pressure O2 (61-120) Arterial Blood Oxygen Content 13.8 Vol % (12.0-20.0) Arterial Blood 0.9 % (0-4) Carboxyhemoglobin Arterial Blood Methemoglobin 0.9 % (0-2) Blood Gas Hemoglobin 10.4 G/DL (12.0-16.0) Oxygen Delivery Device VENTILATOR Blood Gas Ventilator Setting AC18/500/5PEEP Blood Gas Inspired Oxygen 40 % Imaging Last 24 hours Impressions Chest X-Ray 10/10/16 0600 Signed Impressions: Service Date/Time: Monday, October 10, 2016 04:22 - CONCLUSION: Worsening bibasilar consolidation and small effusions, especially on the left. Calixto Woodruff MD Exam AIRPLANE ENGINEER Patient extubated verbalizes oriented in time and space Hemodynamic/Cardiac Hemodynamically patient is stable not requiring any vasopressors however this morning she developed SVT treated with adenosine Patient converted into sinus tachycardia and has been started on beta blockers in this case Lopressor The supraventricular arrhythmia the patient developed is probably due to the third space mobilization and the volume overload with distention of the right atrium as well as escape of beta-blockade Patient doing very well Electrolytes are replaced Pulmonary/Respiratory Good bilateral breath sounds sounding little wet with some bilateral rales Will diurese the patient this point and decreased maintenance fluid Abdomen/GI Nutrition Abdomen is soft with few bowel sounds and decreased NG tube drainage I removed the ileostomy and mucous fistula bags clean the area and there appears to be well perfused small bowel and large bowel stoma Wound VAC and midline draining minimal fluid will change tomorrow or and I discussed this with wound care Renal/I&O Good urine output with normalized creatinine and BUN and at this point patient is mobilizing her third space increasing intravascular volume and increase preload and afterload and we will reduce both by gentle diuresis and minimization of the further IV fluids beyond TPN Patient remains malnourished with low pre-albumin Vascular Central Line Catheter Date of Insertion: Jun 20, 2016 Side: Left Assessment and Plan Attestation The exam, history, and the medical decision-making described in the above note were completed. I reviewed and agree with the findings presented. I attest that I had a [id number] encounter with the patient on the same day, and personally performed and documented my assessment and findings in the medical record. Janice Olvera MD Oct 10, 2016 15:07
--- NOTE | 2016-10-10 17:06 | HHI.HCPN ---
Reason for visit a. To assist with evaluation and management of symptoms including: Pain, anxiety, depression b. To assist medical decision maker(s) with: better understanding of current medical conditions; weighing benefits/burdens of medical treatment options; making medical treatment decisions. . Subjective/Interval History INTERVAL NOTE: The patient was extubated this morning, and has been eating adequately since then. Her white count is down to 13, renal function remains stable. Chest x-ray indicates some increased consolidative changes. Denies pain at this time. Lethargic . As per initial consultation note on 07/24/16 by Ronald Edouard MD: This 71-year-old female has a complex medical history over the past year. The patient was admitted to the hospital and sepsis and shock in October 2015 and was found to have ischemic bowel. She underwent surgery 11/13/15 with resection of some large and small bowel (as well as the gallbladder), but developed complications including an enterocutaneous fistula and required a second resection of bowel on 11/26/15. The patient eventually was able to be sent to SNF , but returned to the hospital again on 03/11/16 with abdominal pain and had infection involving the fistula. That was treated, and she was able to go home briefly. She returned to the hospital on 04/04/16 because of left leg pain that was found to be caused by ischemia. She underwent treatment with TPA and was kept on anticoagulation, and was discharged again. She returned to the hospital on 04/28/16 with gangrene of the left foot, and was found to have multiple thrombi in major vessels. 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 On 06/14/16, while at the nursing facility, the patient was moving in the bed and there was a dehiscence of the left leg stump wound, and she was sent back to the hospital for admission. Couple on arrival at the hospital, she was found to have a temperature of 100.2 , and she was readmitted. 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 Cultures from the stump wound grew both Klebsiella ESBL and a Morganella species. She was taken to the operating room for debridement and placement of a wound VAC. The fistula seemed to finally close on 06/25/16, but it reopened and has remained open since 07/12/16. She again had fever on 07/21/16 , and additional cultures were done. Staphylococcus hominis has been grown in the blood cultures. The patient has developed a worsening rash on her face, upper back, sacral/ buttock area, and now over the past few days worsening with development of bullae on multiple fingertips. The patient thinks there were vesicles on the rash across her back and on her face a week or 2 ago, but those seem to have all collapsed and dried. The patient has had worsening anxiety over the past several months that she has undergone multiple hospitalizations and complications. She has been receiving some PRN Xanax here, and she says that does help, but it is not scheduled. She has also had pain that has worsened, particularly in her abdomen that she relates to the enterocutaneous fistula, and on her skin on the sacral and upper back area, as well as some skin related to the facial rash. She has received intermittent [place] 10 mg and Dilaudid 1 mg IV a few times per day, and says they helped temporarily. Palliative Care was consulted to assist with symptom management, and to enter in discussions regarding goals of care in the benefits and burdens of the various illnesses and treatment options. . Advance Directives Living Will: Never completed Health Care Surrogate: Copy in medical record Durable Power of Interior Design Principal: Never completed Advance Directive Specifics Health Care Surrogate(s): Primary HCS is her close friend Anuradha Christian, and secondary is her Dwight Wilson. The HCS that is in the record here is not dated. . Objective Vital Signs Date Time Temp Pulse Resp B/P Pulse Ox O2 Delivery O2 Flow Rate FiO2 10/10/16 16:00 115 10/10/16 16:00 98.4 115 24 123/63 96 10/10/16 14:00 116 10/10/16 12:00 119 12/20/16 12:00 98.5 118 14 99/48 95 10/10/16 10:00 125 10/10/16 08:30 94 Venturi Mask 50 10/10/16 08:19 91 Nasal Cannula 4.00 10/10/16 08:19 92 Nasal Cannula 4 10/10/16 08:00 98.6 126 32 117/55 98 10/10/16 08:00 127 10/10/16 07:34 97 40 10/10/16 07:34 Nasal Cannula 40 10/10/16 06:00 120 10/10/16 04:03 96 40 10/10/16 04:00 98.5 117 18 95/52 96 10/10/16 04:00 117 10/10/16 04:00 40 10/10/16 02:00 115 10/10/16 01:05 96 40 10/10/16 00:00 40 10/10/16 00:00 98.0 118 20 98/55 95 10/10/16 00:00 121 10/09/16 22:00 114 10/09/16 20:02 99 40 10/09/16 20:00 118 10/09/16 20:00 98.1 116 20 114/81 98 10/09/16 20:00 114 10/09/16 20:00 40 10/09/16 18:00 119 Intake & Output 10/10/16 10/10/16 06:59 18:59 Intake Total 4023 ml 2742 ml Output Total 2325 ml 1770 ml Balance 1698 ml 972 ml IV Total 3132 ml 2166 ml TPN/PPN 891 ml 576 ml Output Urine Total 600 ml 800 ml Stool Total 160 ml 60 ml Gastric Drainage Total 1150 ml 400 ml Drainage Total 415 ml 510 ml Physical Exam CONSTITUTIONAL/GENERAL: She is in the [facility] bed. TUBES/LINES/DRAINS: Accessed port, guevara catheter SKIN: Skin temperature appropriate. Not diaphoretic. Abdominal wounds noted ENT: Nose without bleeding or purulent drainage. Throat without visible erythema, exudates, masses, or lesions. CARDIOVASCULAR: Regular rate and rhythm without murmurs, gallops, or rubs. No JVD. RESPIRATORY/CHEST: Symmetric, unlabored respirations. Scattered rhonchi are present. GASTROINTESTINAL: Soft, no bowel sounds heard. Ileostomy and colostomy noted MUSCULOSKELETAL: Extremities without clubbing, cyanosis, or edema. Stump now well healed. No mottling or clubbing. NEUROLOGICAL: Sedated PSYCHIATRIC: Unable to evaluate due to her clinical condition . Diagnostic Tests Laboratory Laboratory Tests Test 10/08/16 10/08/16 10/08/16 10/08/16 10:47 11:48 12:40 15:59 White Blood Count 54.8 TH/MM3 (4.0-11.0) Red Blood Count 3.43 MIL/MM3 (4.00-5.30) Hemoglobin 10.4 GM/DL (11.6-15.3) Hematocrit 31.1 % (35.0-46.0) Mean Corpuscular Volume 90.8 FL (80.0-100.0) Mean Corpuscular Hemoglobin 30.5 PG (27.0-34.0) Mean Corpuscular Hemoglobin 33.6 % Concent (32.0-36.0) Red Cell Distribution Width 15.7 % (11.6-17.2) Platelet Count 477 TH/MM3 (150-450) Mean Platelet Volume 7.0 FL (7.0-11.0) Neutrophils (%) (Auto) 97.4 % (16.0-70.0) Lymphocytes (%) (Auto) 1.9 % (9.0-44.0) Monocytes (%) (Auto) 0.5 % (0.0-8.0) Eosinophils (%) (Auto) 0.0 % (0.0-4.0) Basophils (%) (Auto) 0.2 % (0.0-2.0) Neutrophils # (Auto) 53.4 TH/MM3 (1.8-7.7) Lymphocytes # (Auto) 1.0 TH/MM3 (1.0-4.8) Monocytes # (Auto) 0.3 TH/MM3 (0-0.9) Eosinophils # (Auto) 0.0 TH/MM3 (0-0.4) Basophils # (Auto) 0.1 TH/MM3 (0-0.2) CBC Comment AUTO DIFF Differential Total Cells 100 Counted Neutrophils % (Manual) 53 % (16-70) Band Neutrophils % 44 % (0-6) Lymphocytes % 1 % (9-44) Monocytes % 2 % (0-8) Neutrophils # (Manual) 53.2 TH/MM3 (1.8-7.7) Differential Comment FINAL DIFF MANUAL Sodium Level 141 MEQ/L (136-145) Potassium Level 4.1 MEQ/L (3.5-5.1) Chloride Level 106 MEQ/L (98-107) Carbon Dioxide Level 11.2 MEQ/L (21.0-32.0) Anion Gap 24 MEQ/L (5-15) Blood Urea Nitrogen 40 MG/DL (7-18) Creatinine 2.70 MG/DL (0.50-1.00) Estimat Glomerular Filtration 17 ML/MIN (>89) Rate Random Glucose 118 MG/DL (74-106) Calcium Level 9.0 MG/DL (8.5-10.1) Magnesium Level 1.3 MG/DL (1.5-2.5) Total Bilirubin 0.4 MG/DL (0.2-1.0) Direct Bilirubin 0.3 MG/DL (0.0-0.2) Indirect Bilirubin 0.1 MG/DL (0.0-0.8) Aspartate Amino Transf 95 U/L (15-37) (AST/SGOT) Alanine Aminotransferase 77 U/L (10-53) (ALT/SGPT) Alkaline Phosphatase 204 U/L (45-117) Total Protein 6.8 GM/DL (6.4-8.2) Albumin 2.5 GM/DL (3.4-5.0) Lipase 275 U/L (73-393) Lactic Acid Level 10.3 mmol/L (0.4-2.0) Urine Collection Type CLEAN CATCH Urine Color YELLOW (YELLW/STRAW) Urine Turbidity CLEAR (CLEAR) Urine pH 5.5 (5.0-8.5) Urine Specific [place] 1.020 (1.002-1.035) Urine Protein 30 mg/dL (NEG-TRACE) Urine Glucose (UA) NEG mg/dL (NEG) Urine Ketones NEG mg/dL (NEG) Urine Occult Blood SMALL (NEG) Urine Nitrite NEG (NEG) Urine Bilirubin NEG (NEG) Urine Leukocyte Esterase SMALL (NEG) Urine RBC 0-3 /hpf (0-3) Urine WBC 9-14 /hpf (0-5) Urine Squamous Epithelial 0-5 /hpf (0-5) Cells Urine Transitional Epithelial 0-5 /hpf (NONE) Cells Urine Renal Epithelial Cells 0-5 /hpf (NONE) Urine Amorphous Sediment FEW Microscopic Urinalysis Comment CULTURE INDICATED Crossmatch Leukocyte-Reduced Red Blood Cells Blood Bank Comment Test 10/08/16 10/08/16 10/08/16 10/08/16 16:00 17:08 17:10 18:25 Prothrombin Time 13.8 SEC (9.8-11.6) Prothromb Time International 1.2 RATIO Ratio Lactic Acid Level 7.5 mmol/L (0.4-2.0) Blood Type A POSITIVE Antibody Screen NEGATIVE Blood Gas Puncture Site DRAWN IN OR DRAWN IN OR Blood Gas Patient Temperature 98.6 98.6 Blood Gas HCO3 11 mmol/L 10 mmol/L (22-26) (22-26) Blood Gas Base Excess -16.3 mmol/L -17.5 mmol/L (-2-2) (-2-2) Blood Gas Oxygen Saturation 95 % (90-100) 94 % (90-100) Arterial Blood pH 7.11 7.10 (7.380-7.420) (7.380-7.420) Arterial Blood Partial 38 mmHg (38-42) 35 mmHg (38-42) Pressure CO2 Arterial Blood Partial 195 mmHG 198 mmHG Pressure O2 (61-120) (61-120) Arterial Blood Oxygen Content 16.1 Vol % 18.8 Vol % (12.0-20.0) (12.0-20.0) Arterial Blood 1.3 % (0-4) 1.2 % (0-4) Carboxyhemoglobin Arterial Blood Methemoglobin 2.4 % (0-2) 2.4 % (0-2) Blood Gas Hemoglobin 11.8 G/DL 13.9 G/DL (12.0-16.0) (12.0-16.0) Blood Bank Comment Oxygen Delivery Device OR Test 10/08/16 10/08/16 10/08/16 10/08/16 20:05 20:35 20:50 21:39 Blood Gas Puncture Site LT BRACHIAL Blood Gas Patient Temperature 98.6 Blood Gas HCO3 11 mmol/L (22-26) Blood Gas Base Excess -18.1 mmol/L (-2-2) Blood Gas Oxygen Saturation 97 % (90-100) Arterial Blood pH 7.04 (7.380-7.420) Arterial Blood Partial 41 mmHg (38-42) Pressure CO2 Arterial Blood Partial 416 mmHg Pressure O2 (61-120) Arterial Blood Oxygen Content 8.4 Vol % (12.0-20.0) Arterial Blood 0.7 % (0-4) Carboxyhemoglobin Arterial Blood Methemoglobin 1.5 % (0-2) Blood Gas Hemoglobin 5.4 G/DL (12.0-16.0) Oxygen Delivery Device VENTILATOR Blood Gas Ventilator Setting AC/14/500/5PEEP Blood Gas Inspired Oxygen 100 % White Blood Count 30.7 TH/MM3 (4.0-11.0) Red Blood Count 1.70 MIL/MM3 (4.00-5.30) Hemoglobin 5.0 GM/DL (11.6-15.3) Hematocrit 15.7 % (35.0-46.0) Mean Corpuscular Volume 92.3 FL (80.0-100.0) Mean Corpuscular Hemoglobin 29.3 PG (27.0-34.0) Mean Corpuscular Hemoglobin 31.7 % Concent (32.0-36.0) Red Cell Distribution Width 16.7 % (11.6-17.2) Platelet Count 264 TH/MM3 (150-450) Mean Platelet Volume 8.0 FL (7.0-11.0) Sodium Level 145 MEQ/L (136-145) Potassium Level 4.5 MEQ/L (3.5-5.1) Chloride Level 104 MEQ/L (98-107) Carbon Dioxide Level 18.9 MEQ/L (21.0-32.0) Anion Gap 22 MEQ/L (5-15) Blood Urea Nitrogen 29 MG/DL (7-18) Creatinine 1.90 MG/DL (0.50-1.00) Estimat Glomerular Filtration 26 ML/MIN (>89) Rate Random Glucose 254 MG/DL (74-106) Lactic Acid Level 10.9 mmol/L (0.4-2.0) Calcium Level 6.7 MG/DL (8.5-10.1) Protein Corrected Calcium 7.9 MG/DL (8.5-10.1) Phosphorus Level 6.1 MG/DL (2.5-4.9) Magnesium Level 2.4 MG/DL (1.5-2.5) Total Bilirubin 0.4 MG/DL (0.2-1.0) Aspartate Amino Transf 69 U/L (15-37) (AST/SGOT) Alanine Aminotransferase 53 U/L (10-53) (ALT/SGPT) Alkaline Phosphatase 106 U/L (45-117) Total Protein 4.8 GM/DL (6.4-8.2) Albumin 2.0 GM/DL (3.4-5.0) Prothrombin Time 13.9 SEC (9.8-11.6) Prothromb Time International 1.2 RATIO Ratio Activated Partial 33.1 SEC Thromboplast Time (24.3-30.1) Test 10/08/16 10/09/16 10/09/16 10/09/16 21:43 01:05 03:15 03:40 Blood Gas Puncture Site PIETER Blood Gas Patient Temperature 98.6 Blood Gas HCO3 16 mmol/L (22-26) Blood Gas Base Excess -8.5 mmol/L (-2-2) Blood Gas Oxygen Saturation 97 % (90-100) Arterial Blood pH 7.33 (7.380-7.420) Arterial Blood Partial 32 mmHg (38-42) Pressure CO2 Arterial Blood Partial 168 mmHg Pressure O2 (61-120) Arterial Blood Oxygen Content 10.9 Vol % (12.0-20.0) Arterial Blood 0.9 % (0-4) Carboxyhemoglobin Arterial Blood Methemoglobin 1.2 % (0-2) Blood Gas Hemoglobin 7.7 G/DL (12.0-16.0) Oxygen Delivery Device VENTILATOR Blood Gas Ventilator Setting AC20/500/PEEP5 Blood Gas Inspired Oxygen 60 % Lactic Acid Level 8.1 mmol/L (0.4-2.0) White Blood Count 19.2 TH/MM3 (4.0-11.0) Red Blood Count 3.82 MIL/MM3 (4.00-5.30) Hemoglobin 11.4 GM/DL (11.6-15.3) Hematocrit 32.7 % (35.0-46.0) Mean Corpuscular Volume 85.8 FL (80.0-100.0) Mean Corpuscular Hemoglobin 29.8 PG (27.0-34.0) Mean Corpuscular Hemoglobin 34.7 % Concent (32.0-36.0) Red Cell Distribution Width 17.1 % (11.6-17.2) Platelet Count 210 TH/MM3 (150-450) Mean Platelet Volume 7.7 FL (7.0-11.0) Neutrophils (%) (Auto) 93.5 % (16.0-70.0) Lymphocytes (%) (Auto) 4.3 % (9.0-44.0) Monocytes (%) (Auto) 1.7 % (0.0-8.0) Eosinophils (%) (Auto) 0.3 % (0.0-4.0) Basophils (%) (Auto) 0.2 % (0.0-2.0) Neutrophils # (Auto) 18.0 TH/MM3 (1.8-7.7) Lymphocytes # (Auto) 0.8 TH/MM3 (1.0-4.8) Monocytes # (Auto) 0.3 TH/MM3 (0-0.9) Eosinophils # (Auto) 0.1 TH/MM3 (0-0.4) Basophils # (Auto) 0.0 TH/MM3 (0-0.2) CBC Comment AUTO DIFF Differential Total Cells 100 Counted Neutrophils % (Manual) 49 % (16-70) Band Neutrophils % 50 % (0-6) Lymphocytes % 1 % (9-44) Neutrophils # (Manual) 19.0 TH/MM3 (1.8-7.7) Differential Comment FINAL DIFF MANUAL Platelet Estimate NORMAL (NORMAL) Platelet Morphology Comment NORMAL (NORMAL) Red Cell Morphology Comment NORMAL (NORMAL) Nasal Screen MRSA (PCR) NEGATIVE (NEGATIVE) Test 10/09/16 10/09/16 10/09/16 10/10/16 05:20 05:38 08:25 04:45 White Blood Count 18.7 TH/MM3 13.6 TH/MM3 (4.0-11.0) (4.0-11.0) Red Blood Count 3.70 MIL/MM3 3.07 MIL/MM3 (4.00-5.30) (4.00-5.30) Hemoglobin 11.0 GM/DL 9.0 GM/DL (11.6-15.3) (11.6-15.3) Hematocrit 31.5 % 26.4 % (35.0-46.0) (35.0-46.0) Mean Corpuscular Volume 85.0 FL 86.1 FL (80.0-100.0) (80.0-100.0) Mean Corpuscular Hemoglobin 29.9 PG 29.4 PG (27.0-34.0) (27.0-34.0) Mean Corpuscular Hemoglobin 35.1 % 34.1 % Concent (32.0-36.0) (32.0-36.0) Red Cell Distribution Width 17.1 % 18.0 % (11.6-17.2) (11.6-17.2) Platelet Count 200 TH/MM3 132 TH/MM3 (150-450) (150-450) Mean Platelet Volume 8.2 FL 9.0 FL (7.0-11.0) (7.0-11.0) Neutrophils (%) (Auto) 93.7 % 82.8 % (16.0-70.0) (16.0-70.0) Lymphocytes (%) (Auto) 3.9 % 11.7 % (9.0-44.0) (9.0-44.0) Monocytes (%) (Auto) 2.1 % (0.0-8.0) 3.1 % (0.0-8.0) Eosinophils (%) (Auto) 0.2 % (0.0-4.0) 1.8 % (0.0-4.0) Basophils (%) (Auto) 0.1 % (0.0-2.0) 0.6 % (0.0-2.0) Neutrophils # (Auto) 17.5 TH/MM3 11.3 TH/MM3 (1.8-7.7) (1.8-7.7) Lymphocytes # (Auto) 0.7 TH/MM3 1.6 TH/MM3 (1.0-4.8) (1.0-4.8) Monocytes # (Auto) 0.4 TH/MM3 0.4 TH/MM3 (0-0.9) (0-0.9) Eosinophils # (Auto) 0.0 TH/MM3 0.2 TH/MM3 (0-0.4) (0-0.4) Basophils # (Auto) 0.0 TH/MM3 0.1 TH/MM3 (0-0.2) (0-0.2) CBC Comment AUTO DIFF AUTO DIFF Differential Total Cells 100 100 Counted Neutrophils % (Manual) 44 % (16-70) 72 % (16-70) Band Neutrophils % 47 % (0-6) 16 % (0-6) Lymphocytes % 5 % (9-44) 10 % (9-44) Monocytes % 2 % (0-8) 1 % (0-8) Neutrophils # (Manual) 17.4 TH/MM3 12.1 TH/MM3 (1.8-7.7) (1.8-7.7) Metamyelocytes 2 % (0-1) 1 % (0-1) Nucleated Red Blood Cells 1 /100 WBC (0-0) Differential Comment FINAL DIFF FINAL DIFF MANUAL MANUAL Toxic Vacuolation PRESENT (NONE SEEN) Platelet Estimate NORMAL LOW (NORMAL) (NORMAL) Platelet Morphology Comment NORMAL NORMAL (NORMAL) (NORMAL) Ovalocytes 1+ (NORMAL) Acanthocytes 1+ (NORMAL) 1+ (NORMAL) Sodium Level 145 MEQ/L 148 MEQ/L (136-145) (136-145) Potassium Level 3.9 MEQ/L 3.0 MEQ/L (3.5-5.1) (3.5-5.1) Chloride Level 110 MEQ/L 116 MEQ/L (98-107) (98-107) Carbon Dioxide Level 21.9 MEQ/L 22.5 MEQ/L (21.0-32.0) (21.0-32.0) Anion Gap 13 MEQ/L (5-15) 10 MEQ/L (5-15) Blood Urea Nitrogen 26 MG/DL (7-18) 24 MG/DL (7-18) Creatinine 1.43 MG/DL 0.96 MG/DL (0.50-1.00) (0.50-1.00) Estimat Glomerular Filtration 36 ML/MIN (>89) 57 ML/MIN (>89) Rate Random Glucose 255 MG/DL 165 MG/DL (74-106) (74-106) Lactic Acid Level 4.9 mmol/L (0.4-2.0) Calcium Level 7.9 MG/DL 7.9 MG/DL (8.5-10.1) (8.5-10.1) Magnesium Level 1.9 MG/DL 1.7 MG/DL (1.5-2.5) (1.5-2.5) Total Bilirubin 1.2 MG/DL 0.8 MG/DL (0.2-1.0) (0.2-1.0) Aspartate Amino Transf 71 U/L (15-37) 32 U/L (15-37) (AST/SGOT) Alanine Aminotransferase 56 U/L (10-53) 44 U/L (10-53) (ALT/SGPT) Alkaline Phosphatase 88 U/L (45-117) 61 U/L (45-117) Total Protein 4.9 GM/DL 4.3 GM/DL (6.4-8.2) (6.4-8.2) Albumin 1.8 GM/DL 1.5 GM/DL (3.4-5.0) (3.4-5.0) Lipase 62 U/L (73-393) Random Vancomycin Level 19.6 COMMENT Blood Gas Puncture Site PIETER Blood Gas Patient Temperature 98.6 Blood Gas HCO3 19 mmol/L (22-26) Blood Gas Base Excess -4.8 mmol/L (-2-2) Blood Gas Oxygen Saturation 97 % (90-100) Arterial Blood pH 7.39 (7.380-7.420) Arterial Blood Partial 33 mmHg (38-42) Pressure CO2 Arterial Blood Partial 151 mmHg Pressure O2 (61-120) Arterial Blood Oxygen Content 14.8 Vol % (12.0-20.0) Arterial Blood 1.2 % (0-4) Carboxyhemoglobin Arterial Blood Methemoglobin 1.1 % (0-2) Blood Gas Hemoglobin 10.7 G/DL (12.0-16.0) Oxygen Delivery Device VENTILATOR Blood Gas Ventilator Setting 18/500/PEEP5 Blood Gas Inspired Oxygen 60 % Fibrinogen 460 mg/dL (227-377) [place] Cells 1+ (NORMAL) Phosphorus Level 2.0 MG/DL (2.5-4.9) Test 10/10/16 05:15 Blood Gas Puncture Site LT RADIAL Blood Gas Patient Temperature 98.6 Blood Gas HCO3 22 mmol/L (22-26) Blood Gas Base Excess -2.8 mmol/L (-2-2) Blood Gas Oxygen Saturation 94 % (90-100) Arterial Blood pH 7.36 (7.380-7.420) Arterial Blood Partial 40 mmHg (38-42) Pressure CO2 Arterial Blood Partial 81 mmHg Pressure O2 (61-120) Arterial Blood Oxygen Content 13.8 Vol % (12.0-20.0) Arterial Blood 0.9 % (0-4) Carboxyhemoglobin Arterial Blood Methemoglobin 0.9 % (0-2) Blood Gas Hemoglobin 10.4 G/DL (12.0-16.0) Oxygen Delivery Device VENTILATOR Blood Gas Ventilator Setting AC18/500/5PEEP Blood Gas Inspired Oxygen 40 % Result Diagram: 10/10/16 0445 10/10/16 0445 Microbiology Microbiology Date/Time Procedure Status Source Growth 10/08/16 11:48 Aerobic Blood Culture - Preliminary Resulted Blood Peripheral Klebsiella Pneumoniae 10/08/16 11:48 Anaerobic Blood Culture - Preliminary Resulted Gram Negative Jorge 10/08/16 12:20 Aerobic Blood Culture - Preliminary Resulted Blood Peripheral Staphylococcus Epidermidis 10/08/16 12:20 Anaerobic Blood Culture - Preliminary Resulted Gram Positive Cocci 10/08/16 12:40 Urine Culture - Final Complete Urine Clean Catch 50-100,000 CFU/ML MIXED VIRGIL... Imaging Last Impressions Chest X-Ray 10/10/16 0600 Signed Impressions: Service Date/Time: Monday, October 10, 2016 04:22 - CONCLUSION: Worsening bibasilar consolidation and small effusions, especially on the left. Calixto Woodruff MD Abdomen/Pelvis CT 10/08/16 1057 Signed Impressions: Service Date/Time: Saturday, October 08, 2016 11:14 - CONCLUSION: 1. Findings very suspicious for ischemic colon. Postsurgical findings with evidence of prior colectomy. There is evidence of bowel wall pneumatosis of the transverse colon in the region of anastomosis. Adjacent small bubbles of extraluminal gas but may be within the portal venous system or free also noted. These findings are highly suspicious for ischemic colon. 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 2. Marked nonspecific distention of the stomach. Alexandru Lynch MD Liver Ultrasound 07/12/16 0000 Signed Impressions: Service Date/Time: Tuesday, July 12, 2016 18:07 - CONCLUSION: 1. No acute abnormality demonstrated. 2. Heterogeneous liver without measurable mass. 3. Small and heterogeneous spleen without a measurable mass. 4. Cortical thinning and scarring of the right kidney. 5. Previous cholecystectomy. Calixto Woodruff MD Chest CT 07/09/16 0000 Signed Impressions: Service Date/Time: Saturday, July 09, 2016 14:43 - CONCLUSION: 1. Small right pleural effusion and minimal right basilar consolidation. 2. 6 mm left basilar nodule. Followup CT chest 6 months recommended. Florian Pepper MD Lower Extremity Ultrasound 06/25/16 0000 Signed Impressions: Service Date/Time: Saturday, June 25, 2016 15:56 - CONCLUSION: Negative exam with no evidence of deep venous thrombosis. Soft tissue edema. Mike Leija MD Port Line Insertion 06/20/16 0000 Signed Impressions: Service Date/Time: Monday, June 20, 2016 08:53 - CONCLUSION: Uncomplicated ultrasound and fluoroscopic guided implanted central venous port catheter placement as described in detail above. An 8 [place] Power port was placed. Kevan Salgado Jr., MD Procedures Stump debridement and wound VAC placement 06/16/16 TPN Skin biopsies, face 07/24/16 Exploratory laparotomy, ileostomy, colostomy, bowel resection 10/08/16 . 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 No other specific skin pathology noted. . (8) pulmonary nodule on CT scan, 2.6 mm at the left base (9) depression (10) COPD, not oxygen dependent (11) history of breast cancer (12) anxiety (13) anemia Symptom Scale: (1) pain 0-10 Scale: 6 (she has been receiving [place] and parenteral hydromorphone) Comment: Pain has been mostly abdominal and pain related to her multiple skin lesions. . (2) anxiety 0-10 Scale: 4 (she has had occasional doses of Xanax that she says helps, but her anxiety is worsening overall) Comment: Well controlled with scheduled alprazolam. Not needing breakthrough alprazolam at this time. . (3) depression 0-10 Scale: 4 (long-term, was on Celexa at home, now on Zoloft; remains tearful frequently) Comment: Reasonably well controlled with sertraline. . Pertinent Non-Medical Issues Psychosocial: Second marriage for about 1 year, but most of that time in the hospital or SNF. No children, but has close friend Anuradha. Spiritual: Evaluation pending Legal: The patient has capacity for decision-making, and has designated her friend Anuradha and her Dwight as primary and secondary HCS respectively Ethical issues impacting care: None. . Important Contacts Primary HCS, close friend Anuradha Christian [phone] : Dwight Wilson [phone] . Prognosis She has suffered multiple illnesses, infections, and complications during the last 10 months, and now has undergone emergency surgery for more ischemic bowel. Her overall prognosis is quite poor, and she would be an appropriate hospice candidate if her proxy decision makers elected to transition to comfort care. . Code Status: Full Code Plan ==FULL CODE ==GOALS: The patient has previously wanted to continue AGGRESSIVE CARE. She has been frustrated by all the complications and the debility caused by pain, anxiety, and depression. She has had a good understanding of hospice, as she has been the primary caregiver for 3 of her relatives who were on hospice and at end-of-life. Her friend/HCS Anuradha Christian is now reconsidering resuscitation status and continued aggressive care in light of the recent setback and surgery. ==DECISION-MAKING: The patient is now not capacitated for decision making, and has designated her friend Anuradha Christian and her Dwight Wilson as primary and secondary HCS respectively. ==SYMPTOMS: * Pain: Now with recent surgery; fentanyl available * Anxiety: She was definitely improved on the current Xanax dosing. Now she is on propofol * Depression: I suspect most of her depression has been via a combination of some chronic depression (she had been on Celexa for quite some time at home) and some situational depression at this time. She has been on Zoloft here. == Friend/HCS Anuradha Christian will come see the patient again, and I have suggested she speak with Dr. Hill regarding the recent surgery and prognosis. She is considering requesting DNR status. ==Palliative Care will continue to follow the patient during this hospitalization to further assist with symptom management and to re-visit goals of medical treatment if there are significant changes in the course of her illness. . . Time Spent Total Floor Time (mins): 27 Face to Face Time (mins): 15 >50% Counseling/Coord of Care: Yes Attestation To help prompt me to consider important information that might be impacting today's encounter and assessment, information from prior notes written by myself or my colleagues may have been "brought forward" into today's note. My signature on this note, however, is an attestation that I personally performed the exam, history, and/or decision-making noted today, and, unless otherwise indicated, the interactions with patient, family, and staff as well as the review of records all occurred today. I also attest that the listed assessment and stated plan reflect my best clinical judgment today based on the combination of historical information, prior notes, and today's exam/ interactions. When time spent is documented, it refers only to time spent today by the signer, or if indicated, combined time spent today by collaborating physician/nurse practitioner. Dalila Edouard MD Oct 10, 2016 17:06
[2016-10-10] MEDS: ENOXAPARIN SODIUM 40 MG/0.4 ML SYRINGE SQ SCH (18:46)
[2016-10-10] MEDS: CLINIMIX E 5/25 2000 mL- >42 mls/hr IV-CENTRAL SCH ×3 (20:49)
[2016-10-10] MEDS: FLUCONAZOLE 200 MG PREMIX BAG 100 ML IV SCH (20:50)
[2016-10-10] MEDS: PANTOPRAZOLE SODIUM 40 MG VIAL IV PUSH SCH (20:51)
[2016-10-10] MEDS: MIRTAZAPINE ODT 15 MG TAB PO SCH (20:52)
[2016-10-10] MEDS: VANCOMYCIN 1,000 MG/NS 250 ML IV SCH ×2 (20:52)
[2016-10-10 22:06] LABS: MAGNESIUM 2.2 MG/DL (1.5-2.5); POTASSIUM 3.5 MEQ/L (3.5-5.1)
[2016-10-11] VITALS (16 sets, daily range): BP systolic 123–173; BP diastolic 62–97; PULSE 100–140; RESP 24–40; TEMP 98.1–99.9; O2SAT 92–97
[2016-10-11] MEDS: ICU - POTASSIUM CHLORIDE/AQUEOUS SOLN 20 MEQ/100 ML IVPB IV PRN ×2 (01:10→03:44)
[2016-10-11] MEDS: METOPROLOL TARTRATE 5 MG/5 ML VIAL IV PUSH SCH ×4 (01:10→17:40)
[2016-10-11] MEDS: INSULIN ASPART SUPPLEMENTAL SCALE SQ SCH ×4 (03:15→22:58)
[2016-10-11] MEDS: metroNIDAZOLE 500 MG INJ 100 ML IV SCH ×3 (04:59→22:04)
[2016-10-11] MEDS: ALPRAZolam 0.25 MG TAB PO SCH ×3 (05:00→22:03)
[2016-10-11] MEDS: MEROPENEM INJ 1,000 MG in SODIUM CHLORIDE 0.9% INJ 100 ML IV SCH ×2 (05:00→13:11)
[2016-10-11 06:08] LABS: BASOPHIL # 0.1 TH/MM3 (0-0.2); BASOPHIL % 0.8 % (0.0-2.0); EOSINOPHIL # 0.4 TH/MM3 (0-0.4); EOSINOPHIL % 2.9 % (0.0-4.0); HEMATOCRIT 26.6 % (35.0-46.0); LYMPH % 14.6 % (9.0-44.0); LYMPHOCYTE # 1.9 TH/MM3 (1.0-4.8); MEAN CELL VOLUME 85.8 FL (80.0-100.0); MEAN CORPUSCULAR HEMOGLOBIN 29.2 PG (27.0-34.0); MONO % 3.4 % (0.0-8.0); NEUT % 78.3 % (16.0-70.0); PLATELET COUNT 94 TH/MM3 (150-450); RED BLOOD COUNT 3.11 MIL/MM3 (4.00-5.30); RED CELL DISTRIBUTION WIDTH 17.9 % (11.6-17.2); WHITE BLOOD COUNT 12.8 TH/MM3 (4.0-11.0)
[2016-10-11 06:11] LABS: HEMO FLAGS AUTO DIFF
[2016-10-11 06:25] LABS: ANION GAP 10 MEQ/L (5-15); AST (GOT) 21 U/L (15-37); BICARBONATE 23.4 MEQ/L (21.0-32.0); BLOOD UREA NITROGEN 20 MG/DL (7-18); CHLORIDE 115 MEQ/L (98-107); GLOMERULAR FILTRATION RATE 66 ML/MIN (>89); MAGNESIUM 1.8 MG/DL (1.5-2.5); POTASSIUM 3.4 MEQ/L (3.5-5.1); SODIUM (NA) 148 MEQ/L (136-145)
[2016-10-11 06:29] LABS: ALKALINE PHOSPHATASE 70 U/L (45-117); ALT (GPT) 39 U/L (10-53); TOTAL BILIRUBIN ADULT 0.8 MG/DL (0.2-1.0)
[2016-10-11] MEDS: CHLORHEXIDINE 0.12% (ORAL KIT) 15 ML CUP MT SCH ×2 (07:45→22:59)
[2016-10-11] MEDS: RESP: ALBUTEROL 2.5 MG/IPRATROPIUM 0.5 MG NEB (SCH) NEB ×4 (07:49→20:16)
[2016-10-11 07:52] LABS: BANDS 31 % (0-6); EOSINOPHILS 4 % (0-4); POLYS (SEG NEUTROPHILS) 55 % (16-70); WBC DIFF SAMPLE 100
[2016-10-11 07:55] LABS: DOHLE BODIES PRESENT (NONE SEEN); TOXIC VACUOLATION PRESENT (NONE SEEN)
[2016-10-11 07:56] LABS: PLATELET ESTIMATE SMEAR LOW (NORMAL); PLATELET MORPHOLOGY NORMAL (NORMAL); SCAN/DIFF FINAL DIFF MANUAL
[2016-10-11] MEDS: DULoxetine HCl DR 30 MG CAP PO SCH (08:14)
[2016-10-11] MEDS: NYSTATIN 100,000 U/GM PWD 15 GM BTL TOPICAL SCH ×2 (08:14→22:58)
[2016-10-11] MEDS: SODIUM CHLORIDE 0.9% FLUSH 5 ML FLUSH IVF SCH ×2 (08:14→22:58)
[2016-10-11] MEDS: FERROUS SULFATE 325 MG (65 MG ELEMENTAL IRON) TAB PO SCH (08:14)
[2016-10-11] MEDS: ZINC SULFATE 220 MG CAP PO SCH (08:14)
[2016-10-11] MEDS: CALCITRIOL 0.25 MCG CAP PO SCH (08:14)
[2016-10-11] MEDS: CALCIUM/VITAMIN D 250 MG/125 U TAB PO SCH ×2 (08:14→22:03)
[2016-10-11] MEDS: MULTIVITAMIN TAB PO SCH (08:14)
--- NOTE | 2016-10-11 08:44 | HHI.CCPN ---
Subjective Remarks/Hospital Course 71-year-old female with an asthma, prior tobacco abuse, mesenteric ischemia with prior partial small bowel resection and right cherry-colectomy with anastomosis, severe PAD s/p BKA for gangrene of L foot. 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 Fistual was managed nonoperatively due to concern for short gut syndrome as well as surgical risk/malnutrition. She has been on TPN. Fistula has been recurrent and has prompted several admissions. Her most recent admission 06/14/[address] Olvera due to dehiscence of BKA for which she underwent debridement and has been treated with antibiotics per ID. She has remained hospitalized at [place] while awaiting placement. On the morning of 10/08 she had become hypotensive, WBC 54 k with lactic acid 10.3. CT abd/pelvis demonstrated pneumatosis of transverse colon near site of prior anastomosis. She was transferred emergently to [facility] where she underwent emergent ex lap that demonstrated ischemia with perforation and leak. She underwent resection of ~ 5-6 inches of small bowel and transverse colon with creation of ileostomy and colostomy (for mucous fistula) with fascial closure and wound vac placement by Dr Olvera. She is chronically on Xarelto for which she was given Kcentra preoperatively; 2 units FFP in OR. She received 5 L of crystalloid intraoperatively. She remains intubated postoperatively. She is normotensive , now off low-dose levophed, but pale and underperfused appearing in need of further resuscitation. Objective Vital Signs Date Time Temp Pulse Resp B/P Pulse Ox O2 Delivery O2 Flow Rate FiO2 10/11/16 08:00 98.1 115 26 135/62 92 10/11/16 07:51 Nasal Cannula 4.00 10/10/16 08:30 50 Intake and Output 10/10/16 10/10/16 10/11/16 08:00 16:00 00:00 Intake Total 1591 ml 2742 ml 1831 ml Output Total 1075 ml 1770 ml 2970 ml Balance 516 ml 972 ml -1139 ml Result Diagram: 10/11/16 0540 10/11/16 0540 Other Results Microbiology Date/Time Procedure Status Source Growth 10/08/16 12:40 Urine Culture - Final Complete Urine Clean Catch 50-100,000 CFU/ML MIXED VIRGIL... Objective Remarks Drips: LR 200 L per hour Levophed on standby GENERAL: Critically ill and pale appearing elderly female who is orotracheally intubated SKIN: Mottled right 1st toe, delayed cap refill. HEAD: Atraumatic. Normocephalic. EYES: Pupils equal and round. No scleral icterus. . ENT: No nasal bleeding or discharge. Mucous membranes pink and moist. NECK: Trachea midline. No JVD. CARDIOVASCULAR: Regular rate and rhythm. No murmurs rubs or gallops. RESPIRATORY: No accessory muscle use. Clear to auscultation. Breath sounds equal bilaterally. GASTROINTESTINAL: Abdominal binder in place Abdomen with VERNA drain with some serosanginous drainage in left lower abdomen. R ileostomy with blood clots in bag, mucosa dusky. Colostomy on Left with blood in bag, mucosa dusky. No bowel sounds. Wound vac in place midline with serosanginous output : Hamlin in place with yellow urine output. MUSCULOSKELETAL: Extremities without clubbing, cyanosis, or edema. S/p L BKA with stump incision healed. NEUROLOGICAL: Sedated postoperatively,. (initially unresponsive to deep noxious stimuli, later in evening reassessed and moving all extremities spontaneously and following commands) Procedures Left stump debridement by Dr. Hill on 06/15/16 Bedside debridement of preperitoneal fat that was protruding from the abdominal fistula 09/01/16 Date of Insertion: Jun 20, 2016 Side: Left A/P Assessment and Plan 71-year-old female with an asthma, prior tobacco abuse, mesenteric ischemia with prior partial small bowel resection and right cheryr-colectomy with anastomosis, severe PAD s/p BKA for gangrene of L foot. 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 Fistula was managed nonoperatively due to concern for short gut syndrome as well as surgical risk/malnutrition. She has been on TPN. Fistula has been recurrent and has prompted several admissions. Her most recent admission 06/14/[address] Olvera due to dehiscence of BKA for which she underwent debridement and has been treated with antibiotics per ID. She has remained hospitalized at [place] while awaiting placement. On the morning of 10/08 she had become hypotensive, WBC 54 k with lactic acid 10.3. CT abd/pelvis demonstrated pneumatosis of transverse colon near site of prior anastomosis. She was transferred emergently to [facility] where she underwent emergent ex lap that demonstrated ischemia with perforation and leak. She underwent resection of ~ 5-6 inches of small bowel and transverse colon with creation of ileostomy and colostomy (for mucous fistula) with fascial closure and wound vac placement by Dr Olvera. She is chronically on Xarelto for which she was given Kcentra preoperatively; 2 units FFP in OR. She received 5 L of crystalloid intraoperatively. She remains intubated postoperatively. She is normotensive , now off low-dose levophed, but pale and underperfused appearing in need of further resuscitation. Acute respiratory failure - extubated 10/10 doing well - DuoNeb every 6 hours. - Incentive spirometry Q1H while awake COPD - no exacerbation - no indication for steroids - continue Aerosols Depression - resume home meds when OK with surgery to p.o. Peripheral neuropathy - status post left BKA - supportive care - management per vascular surgery Shock secondary to acute blood loss and sepsis - resolved - continue gentle i.v. fluids hydration Grade 1 diastolic dysfunction - strict BP control Ischemic colitis with perforation of transverse colon, - status post resection 5-6 inches of transverse colon with creation of ileostomy and colostomy (mucous fistula). - NPO. - NG tube in right nare to low intermittent wall suction. - VERNA in place, monitor output. - Abdominal fascia is closed. - Wound VAC is in place. - Continue TPN - further per general surgery GERD - PPI i.v. Acute kidney injury - pre-renal - Hamlin in place. - Monitor intake and output. - avoid nephrotoxins. - Good urine output - Electrolyte replacement per ICU protocol Septic shock - secondary to intrabdominal sepsis with mesenteric ischemia, bowel perforation and leak. - status post Exp lap, colectomy and colostomy - Continue cefepime, vancomycin, fluconazole. - Added metronidazole 500 mg IV every 8 hours for anaerobic coverage. - Follow-up blood culture 2 sets Klebsiella Pneumoniae sensitivity still pending - Further ATB per ID Acute blood loss anemia - Bleeding noted at ileostomy/colostomy - resolved - Previously on Xarelto - continue to hold - Transfuse 4 units PRBC 18 - H&H stable today Prophylaxis - Hold pharmacologic DVT prophylaxis secondary to bleeding. Protonix 40 mg IV daily for stress ulcer prophylaxis. ACCESS: Right IJ central venous line placed in OR 10/08 #1, left brachial art line placed in OR 10/08 #1. Level 3 Omer Robles MD Oct 11, 2016 08:44
[2016-10-11] MEDS ORDERED: HYDROmorphone HCL PF 1 MG/ML VIAL IV ONE (10:00)
--- NOTE | 2016-10-11 12:56 | MP ---
cc: JANICE JOSE MD DATE OF SURGERY 10/08/2016 PREOPERATIVE DIAGNOSIS Metabolic acidosis, septic shock, gangrene of the transverse colon with obstruction. POSTOPERATIVE DIAGNOSIS Metabolic acidosis, septic shock, gangrene of the transverse colon with obstruction. OPERATIVE PROCEDURE Exploratory laparotomy, resection of the anterior abdominal wall fistula tract, resection of the transverse colon to small bowel anastomosis, lysis of adhesions of the small bowel with repair of two enterotomies, right-sided ileostomy, left-sided mucous fistula and partial removal of a ventral hernia mesh. SURGEON Janice Jose MD ANESTHESIA General ESTIMATED BLOOD LOSS 350 cc INDICATIONS FOR PROCEDURE This unfortunate lady had a surgery last year when she developed a large bowel necrosis due to the mesenteric artery embolism, required resection of the right colon, part of the transverse colon, as well as, large portion of her small bowel. The patient since then had several other surgeries and then developed a fistula to anterior abdominal wall which healed several times and then reopened. Now the patient suddenly got ill with white count of 50,000, metabolic acidosis and clearly gangrene of this bowel again. PROCEDURE The patient is prepped and draped in the usual fashion. A mid abdominal incision is made by incorporating a segment of the skin containing the fistulous tracts and this entire segment is removed very carefully. The abdomen is entered because small bowel loops of stuck right to the anterior abdominal wall. Very carefully these are lysed. Finally at the anastomosis of the small bowel to colon is found going down this fistulous tract this is like cutting through concrete. This was finally found. The colon distal to it appears to be purplish serrano with some contained leakage. This is very carefully dissected from the anterior abdominal wall and the omentum and then followed laterally. This segment of the colon that appears this way is only about 4 inches long and then the small bowel in this area at the very end is also dusky appearing. The colon is followed now to the left toward the splenic flexure and this one is freed up to allow mobilization of the colon to anterior abdominal wall for the mucous fistula later on. The colon is now folded down to the sigmoid which appears to be fine except for diverticula. No other inflammation is noted or ischemia. The small bowel was now freed up from the right upper quadrant where it is sort of twisted around and the small bowel was followed and lysed out of the pelvis. In the process, two enterotomies were made. These were repaired with interrupted 3-0 silk Lambert pop-off stitches and now finally the small bowel was completely freed up. It measures about 5 feet in length, that is all that is left. The small bowel is now run two more times to make sure there is absolutely no question about the integrity of the same and appears to be fine. The SKIP stapler was now fired across the small bowel last inch before the anastomosis to large bowel and then the 4 or 5 inches of the transverse colon are also removed and appeared to be dusky. This also contains the fistula tract. All this is now removed by dividing the mesentery and tying it off with 2-0 Vicryl ties. Specimen is now delivered and then the mucous fistula is created in the left midabdomen and permanent ileostomy in the right midabdomen. The abdomen is now irrigated with copious amounts of saline once more, explored in quadrants. No other abnormalities found. A 10 flat VERNA is placed in the pelvis and the abdomen is closed with #1 PDS loop, #1 Vicryl [id number] for fascia and skin is left open. A wound Vac is applied here. Ileostomy and colostomy were matured with some 3-0 Vicryl and then bags applied. Prior to closure of this, the remnants of the ventral hernia mesh are also sharply removed from the edges of the abdominal wall. I believe that mesh probably goes more lateral for abdominoplasty, but this of course can be reached and therefore the visible parts of mesh are removed. Janice MARTINEZ /12:24 PM /12:43 PM
[2016-10-11] MEDS: HYDROmorphone HCL PF 1 MG/ML VIAL IV PRN ×3 (13:11→20:06)
[2016-10-11] MEDS: SODIUM CHLOR 0.9% 1000 ML INJ 1,000 ML IV SCH (15:00)
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
--- NOTE | 2016-10-11 16:49 | HHI.HCPN ---
Reason for visit a. To assist with evaluation and management of symptoms including: Pain, anxiety, depression b. To assist medical decision maker(s) with: better understanding of current medical conditions; weighing benefits/burdens of medical treatment options; making medical treatment decisions. . Subjective/Interval History INTERVAL NOTE: The patient was extubated yesterday, and has been breathing adequately since then. Her white count and renal function remain stable. Chest x-ray yesterday indicates some increased consolidative changes. She seems more alert today, conversant. She notes that her abdomen hurts "a little bit all the time," and she has been receiving 0.5 mg doses of parenteral hydromorphone. I note in Dr. Hill's note today: "This lady is at high risk of fistula, bowel leak from the enterotomy sites and other problems associated with healing considering her low albumin and poor nutritional state" I spoke with the patient about the prolonged hospitalization and the significant suffering and procedures that she has been through already, and I again let her know that some people in her situation would decide to stop further aggressive care and transition to comfort measures. She wants to think about that longer. I also spoke with her healthcare surrogate, Anuradha Christian, and she feels it may be time to transition to hospice and will also be speaking with the patient this weekend. . As per initial consultation note on 07/24/16 by Ronald Edouard MD: This 71-year-old female has a complex medical history over the past year. The patient was admitted to the hospital and sepsis and shock in October 2015 and was found to have ischemic bowel. She underwent surgery 11/13/15 with resection of some large and small bowel (as well as the gallbladder), but developed complications including an enterocutaneous fistula and required a second resection of bowel on 11/26/15. The patient eventually was able to be sent to SNF , but returned to the hospital again on 03/11/16 with abdominal pain and had infection involving the fistula. That was treated, and she was able to go home briefly. She returned to the hospital on 04/04/16 because of left leg pain that was found to be caused by ischemia. She underwent treatment with TPA and was kept on anticoagulation, and was discharged again. She returned to the hospital on 04/28/16 with gangrene of the left foot, and was found to have multiple thrombi in major vessels. 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 On 06/14/16, while at the nursing facility, the patient was moving in the bed and there was a dehiscence of the left leg stump wound, and she was sent back to the hospital for admission. Couple on arrival at the hospital, she was found to have a temperature of 100.2 , and she was readmitted. 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 Cultures from the stump wound grew both Klebsiella ESBL and a Morganella species. She was taken to the operating room for debridement and placement of a wound VAC. The fistula seemed to finally close on 06/25/16, but it reopened and has remained open since 07/12/16. She again had fever on 07/21/16 , and additional cultures were done. Staphylococcus hominis has been grown in the blood cultures. The patient has developed a worsening rash on her face, upper back, sacral/ buttock area, and now over the past few days worsening with development of bullae on multiple fingertips. The patient thinks there were vesicles on the rash across her back and on her face a week or 2 ago, but those seem to have all collapsed and dried. The patient has had worsening anxiety over the past several months that she has undergone multiple hospitalizations and complications. She has been receiving some PRN Xanax here, and she says that does help, but it is not scheduled. She has also had pain that has worsened, particularly in her abdomen that she relates to the enterocutaneous fistula, and on her skin on the sacral and upper back area, as well as some skin related to the facial rash. She has received intermittent [place] 10 mg and Dilaudid 1 mg IV a few times per day, and says they helped temporarily. Palliative Care was consulted to assist with symptom management, and to enter in discussions regarding goals of care in the benefits and burdens of the various illnesses and treatment options. . Advance Directives Living Will: Never completed Health Care Surrogate: Copy in medical record Durable Power of Chemical Applicator: Never completed Advance Directive Specifics Health Care Surrogate(s): Primary HCS is her close friend Anuradha Christian, and secondary is her Dwight Wilson. The HCS that is in the record here is not dated. . Objective Vital Signs Date Time Temp Pulse Resp B/P Pulse Ox O2 Delivery O2 Flow Rate FiO2 10/11/16 16:00 99.8 122 25 170/77 95 10/11/16 16:00 122 10/11/16 14:00 111 10/11/16 12:00 98.9 123 29 123/62 95 10/11/16 12:00 123 10/11/16 10:00 124 10/11/16 08:00 98.3 115 26 135/62 92 10/11/16 08:00 120 10/11/16 07:51 94 Nasal Cannula 4.00 10/11/16 07:00 94 Nasal Cannula 4.00 10/11/16 06:00 121 10/11/16 04:00 98.1 117 28 140/63 94 10/11/16 04:00 100 10/11/16 02:00 115 10/11/16 00:00 99.8 118 24 139/97 95 10/11/16 00:00 118 10/10/16 22:00 120 10/10/16 21:06 95 Nasal Cannula 4.00 10/10/16 20:00 98.6 114 28 133/60 95 10/10/16 20:00 114 10/10/16 19:00 95 Nasal Cannula 4.00 10/10/16 18:00 119 Intake & Output 10/11/16 10/11/16 06:59 18:59 Intake Total 2439 ml 1442 ml Output Total 4250 ml 2210 ml Balance -1811 ml -768 ml IV Total 1324 ml 896 ml TPN/PPN 882 ml 546 ml Lipid 233 ml Output Urine Total 2500 ml 1150 ml Stool Total 20 ml 40 ml Gastric Drainage Total 1200 ml 900 ml Drainage Total 530 ml 120 ml Physical Exam CONSTITUTIONAL/GENERAL: She is in the [facility] bed. TUBES/LINES/DRAINS: Accessed port, guevara catheter SKIN: Skin temperature appropriate. Not diaphoretic. Abdominal wounds noted ENT: Nose without bleeding or purulent drainage. Throat without visible erythema, exudates, masses, or lesions. CARDIOVASCULAR: Regular rate and rhythm without murmurs, gallops, or rubs. No JVD. RESPIRATORY/CHEST: Symmetric, unlabored respirations. Scattered rhonchi are present. GASTROINTESTINAL: Soft, no bowel sounds heard. Ileostomy and colostomy noted MUSCULOSKELETAL: Extremities without clubbing, cyanosis, or edema. Stump now well healed. No mottling or clubbing. NEUROLOGICAL: Sedated PSYCHIATRIC: Unable to evaluate due to her clinical condition . Diagnostic Tests Laboratory Laboratory Tests Test 10/08/16 10/08/16 10/08/16 10/08/16 17:08 17:10 18:25 20:05 Blood Gas Puncture Site DRAWN IN OR DRAWN IN OR LT BRACHIAL Blood Gas Patient Temperature 98.6 98.6 98.6 Blood Gas HCO3 11 mmol/L 10 mmol/L 11 mmol/L (22-26) (22-26) (22-26) Blood Gas Base Excess -16.3 mmol/L -17.5 mmol/L -18.1 mmol/L (-2-2) (-2-2) (-2-2) Blood Gas Oxygen Saturation 95 % (90-100) 94 % (90-100) 97 % (90-100) Arterial Blood pH 7.11 7.10 7.04 (7.380-7.420) (7.380-7.420) (7.380-7.420) Arterial Blood Partial 38 mmHg (38-42) 35 mmHg (38-42) 41 mmHg (38-42) Pressure CO2 Arterial Blood Partial 195 mmHG 198 mmHG 416 mmHg Pressure O2 (61-120) (61-120) (61-120) Arterial Blood Oxygen Content 16.1 Vol % 18.8 Vol % 8.4 Vol % (12.0-20.0) (12.0-20.0) (12.0-20.0) Arterial Blood 1.3 % (0-4) 1.2 % (0-4) 0.7 % (0-4) Carboxyhemoglobin Arterial Blood Methemoglobin 2.4 % (0-2) 2.4 % (0-2) 1.5 % (0-2) Blood Gas Hemoglobin 11.8 G/DL 13.9 G/DL 5.4 G/DL (12.0-16.0) (12.0-16.0) (12.0-16.0) Blood Bank Comment Oxygen Delivery Device OR VENTILATOR Blood Gas Ventilator Setting //500/5PEEP Blood Gas Inspired Oxygen 100 % Test 10/08/16 10/08/16 10/08/16 10/08/16 20:35 20:50 21:39 21:43 White Blood Count 30.7 TH/MM3 (4.0-11.0) Red Blood Count 1.70 MIL/MM3 (4.00-5.30) Hemoglobin 5.0 GM/DL (11.6-15.3) Hematocrit 15.7 % (35.0-46.0) Mean Corpuscular Volume 92.3 FL (80.0-100.0) Mean Corpuscular Hemoglobin 29.3 PG (27.0-34.0) Mean Corpuscular Hemoglobin 31.7 % Concent (32.0-36.0) Red Cell Distribution Width 16.7 % (11.6-17.2) Platelet Count 264 TH/MM3 (150-450) Mean Platelet Volume 8.0 FL (7.0-11.0) Sodium Level 145 MEQ/L (136-145) Potassium Level 4.5 MEQ/L (3.5-5.1) Chloride Level 104 MEQ/L (98-107) Carbon Dioxide Level 18.9 MEQ/L (21.0-32.0) Anion Gap 22 MEQ/L (5-15) Blood Urea Nitrogen 29 MG/DL (7-18) Creatinine 1.90 MG/DL (0.50-1.00) Estimat Glomerular Filtration 26 ML/MIN (>89) Rate Random Glucose 254 MG/DL (74-106) Lactic Acid Level 10.9 mmol/L (0.4-2.0) Calcium Level 6.7 MG/DL (8.5-10.1) Protein Corrected Calcium 7.9 MG/DL (8.5-10.1) Phosphorus Level 6.1 MG/DL (2.5-4.9) Magnesium Level 2.4 MG/DL (1.5-2.5) Total Bilirubin 0.4 MG/DL (0.2-1.0) Aspartate Amino Transf 69 U/L (15-37) (AST/SGOT) Alanine Aminotransferase 53 U/L (10-53) (ALT/SGPT) Alkaline Phosphatase 106 U/L (45-117) Total Protein 4.8 GM/DL (6.4-8.2) Albumin 2.0 GM/DL (3.4-5.0) Prothrombin Time 13.9 SEC (9.8-11.6) Prothromb Time International 1.2 RATIO Ratio Activated Partial 33.1 SEC Thromboplast Time (24.3-30.1) Blood Gas Puncture Site PIETER Blood Gas Patient Temperature 98.6 Blood Gas HCO3 16 mmol/L (22-26) Blood Gas Base Excess -8.5 mmol/L (-2-2) Blood Gas Oxygen Saturation 97 % (90-100) Arterial Blood pH 7.33 (7.380-7.420) Arterial Blood Partial 32 mmHg (38-42) Pressure CO2 Arterial Blood Partial 168 mmHg Pressure O2 (61-120) Arterial Blood Oxygen Content 10.9 Vol % (12.0-20.0) Arterial Blood 0.9 % (0-4) Carboxyhemoglobin Arterial Blood Methemoglobin 1.2 % (0-2) Blood Gas Hemoglobin 7.7 G/DL (12.0-16.0) Oxygen Delivery Device VENTILATOR Blood Gas Ventilator Setting AC20/500/PEEP5 Blood Gas Inspired Oxygen 60 % Test 10/09/16 10/09/16 10/09/16 10/09/16 01:05 03:15 03:40 05:20 Lactic Acid Level 8.1 mmol/L 4.9 mmol/L (0.4-2.0) (0.4-2.0) White Blood Count 19.2 TH/MM3 18.7 TH/MM3 (4.0-11.0) (4.0-11.0) Red Blood Count 3.82 MIL/MM3 3.70 MIL/MM3 (4.00-5.30) (4.00-5.30) Hemoglobin 11.4 GM/DL 11.0 GM/DL (11.6-15.3) (11.6-15.3) Hematocrit 32.7 % 31.5 % (35.0-46.0) (35.0-46.0) Mean Corpuscular Volume 85.8 FL 85.0 FL (80.0-100.0) (80.0-100.0) Mean Corpuscular Hemoglobin 29.8 PG 29.9 PG (27.0-34.0) (27.0-34.0) Mean Corpuscular Hemoglobin 34.7 % 35.1 % Concent (32.0-36.0) (32.0-36.0) Red Cell Distribution Width 17.1 % 17.1 % (11.6-17.2) (11.6-17.2) Platelet Count 210 TH/MM3 200 TH/MM3 (150-450) (150-450) Mean Platelet Volume 7.7 FL 8.2 FL (7.0-11.0) (7.0-11.0) Neutrophils (%) (Auto) 93.5 % 93.7 % (16.0-70.0) (16.0-70.0) Lymphocytes (%) (Auto) 4.3 % 3.9 % (9.0-44.0) (9.0-44.0) Monocytes (%) (Auto) 1.7 % (0.0-8.0) 2.1 % (0.0-8.0) Eosinophils (%) (Auto) 0.3 % (0.0-4.0) 0.2 % (0.0-4.0) Basophils (%) (Auto) 0.2 % (0.0-2.0) 0.1 % (0.0-2.0) Neutrophils # (Auto) 18.0 TH/MM3 17.5 TH/MM3 (1.8-7.7) (1.8-7.7) Lymphocytes # (Auto) 0.8 TH/MM3 0.7 TH/MM3 (1.0-4.8) (1.0-4.8) Monocytes # (Auto) 0.3 TH/MM3 0.4 TH/MM3 (0-0.9) (0-0.9) Eosinophils # (Auto) 0.1 TH/MM3 0.0 TH/MM3 (0-0.4) (0-0.4) Basophils # (Auto) 0.0 TH/MM3 0.0 TH/MM3 (0-0.2) (0-0.2) CBC Comment AUTO DIFF AUTO DIFF Differential Total Cells 100 100 Counted Neutrophils % (Manual) 49 % (16-70) 44 % (16-70) Band Neutrophils % 50 % (0-6) 47 % (0-6) Lymphocytes % 1 % (9-44) 5 % (9-44) Neutrophils # (Manual) 19.0 TH/MM3 17.4 TH/MM3 (1.8-7.7) (1.8-7.7) Differential Comment FINAL DIFF FINAL DIFF MANUAL MANUAL Platelet Estimate NORMAL NORMAL (NORMAL) (NORMAL) Platelet Morphology Comment NORMAL NORMAL (NORMAL) (NORMAL) Red Cell Morphology Comment NORMAL (NORMAL) Nasal Screen MRSA (PCR) NEGATIVE (NEGATIVE) Monocytes % 2 % (0-8) Metamyelocytes 2 % (0-1) Nucleated Red Blood Cells 1 /100 WBC (0-0) Toxic Vacuolation PRESENT (NONE SEEN) Ovalocytes 1+ (NORMAL) Acanthocytes 1+ (NORMAL) Sodium Level 145 MEQ/L (136-145) Potassium Level 3.9 MEQ/L (3.5-5.1) Chloride Level 110 MEQ/L (98-107) Carbon Dioxide Level 21.9 MEQ/L (21.0-32.0) Anion Gap 13 MEQ/L (5-15) Blood Urea Nitrogen 26 MG/DL (7-18) Creatinine 1.43 MG/DL (0.50-1.00) Estimat Glomerular Filtration 36 ML/MIN (>89) Rate Random Glucose 255 MG/DL (74-106) Calcium Level 7.9 MG/DL (8.5-10.1) Magnesium Level 1.9 MG/DL (1.5-2.5) Total Bilirubin 1.2 MG/DL (0.2-1.0) Aspartate Amino Transf 71 U/L (15-37) (AST/SGOT) Alanine Aminotransferase 56 U/L (10-53) (ALT/SGPT) Alkaline Phosphatase 88 U/L (45-117) Total Protein 4.9 GM/DL (6.4-8.2) Albumin 1.8 GM/DL (3.4-5.0) Lipase 62 U/L (73-393) Random Vancomycin Level 19.6 COMMENT Test 10/09/16 10/09/16 10/10/16 10/10/16 05:38 08:25 04:45 05:15 Blood Gas Puncture Site PIETER LT RADIAL Blood Gas Patient Temperature 98.6 98.6 Blood Gas HCO3 19 mmol/L 22 mmol/L (22-26) (22-26) Blood Gas Base Excess -4.8 mmol/L -2.8 mmol/L (-2-2) (-2-2) Blood Gas Oxygen Saturation 97 % (90-100) 94 % (90-100) Arterial Blood pH 7.39 7.36 (7.380-7.420) (7.380-7.420) Arterial Blood Partial 33 mmHg (38-42) 40 mmHg (38-42) Pressure CO2 Arterial Blood Partial 151 mmHg 81 mmHg Pressure O2 (61-120) (61-120) Arterial Blood Oxygen Content 14.8 Vol % 13.8 Vol % (12.0-20.0) (12.0-20.0) Arterial Blood 1.2 % (0-4) 0.9 % (0-4) Carboxyhemoglobin Arterial Blood Methemoglobin 1.1 % (0-2) 0.9 % (0-2) Blood Gas Hemoglobin 10.7 G/DL 10.4 G/DL (12.0-16.0) (12.0-16.0) Oxygen Delivery Device VENTILATOR VENTILATOR Blood Gas Ventilator Setting 18/500/PEEP5 AC18/500/5PEEP Blood Gas Inspired Oxygen 60 % 40 % Fibrinogen 460 mg/dL (227-377) White Blood Count 13.6 TH/MM3 (4.0-11.0) Red Blood Count 3.07 MIL/MM3 (4.00-5.30) Hemoglobin 9.0 GM/DL (11.6-15.3) Hematocrit 26.4 % (35.0-46.0) Mean Corpuscular Volume 86.1 FL (80.0-100.0) Mean Corpuscular Hemoglobin 29.4 PG (27.0-34.0) Mean Corpuscular Hemoglobin 34.1 % Concent (32.0-36.0) Red Cell Distribution Width 18.0 % (11.6-17.2) Platelet Count 132 TH/MM3 (150-450) Mean Platelet Volume 9.0 FL (7.0-11.0) Neutrophils (%) (Auto) 82.8 % (16.0-70.0) Lymphocytes (%) (Auto) 11.7 % (9.0-44.0) Monocytes (%) (Auto) 3.1 % (0.0-8.0) Eosinophils (%) (Auto) 1.8 % (0.0-4.0) Basophils (%) (Auto) 0.6 % (0.0-2.0) Neutrophils # (Auto) 11.3 TH/MM3 (1.8-7.7) Lymphocytes # (Auto) 1.6 TH/MM3 (1.0-4.8) Monocytes # (Auto) 0.4 TH/MM3 (0-0.9) Eosinophils # (Auto) 0.2 TH/MM3 (0-0.4) Basophils # (Auto) 0.1 TH/MM3 (0-0.2) CBC Comment AUTO DIFF Differential Total Cells 100 Counted Neutrophils % (Manual) 72 % (16-70) Band Neutrophils % 16 % (0-6) Lymphocytes % 10 % (9-44) Monocytes % 1 % (0-8) Neutrophils # (Manual) 12.1 TH/MM3 (1.8-7.7) Metamyelocytes 1 % (0-1) Differential Comment FINAL DIFF MANUAL Platelet Estimate LOW (NORMAL) Platelet Morphology Comment NORMAL (NORMAL) [place] Cells 1+ (NORMAL) Acanthocytes 1+ (NORMAL) Sodium Level 148 MEQ/L (136-145) Potassium Level 3.0 MEQ/L (3.5-5.1) Chloride Level 116 MEQ/L (98-107) Carbon Dioxide Level 22.5 MEQ/L (21.0-32.0) Anion Gap 10 MEQ/L (5-15) Blood Urea Nitrogen 24 MG/DL (7-18) Creatinine 0.96 MG/DL (0.50-1.00) Estimat Glomerular Filtration 57 ML/MIN (>89) Rate Random Glucose 165 MG/DL (74-106) Calcium Level 7.9 MG/DL (8.5-10.1) Phosphorus Level 2.0 MG/DL (2.5-4.9) Magnesium Level 1.7 MG/DL (1.5-2.5) Total Bilirubin 0.8 MG/DL (0.2-1.0) Aspartate Amino Transf 32 U/L (15-37) (AST/SGOT) Alanine Aminotransferase 44 U/L (10-53) (ALT/SGPT) Alkaline Phosphatase 61 U/L (45-117) Total Protein 4.3 GM/DL (6.4-8.2) Albumin 1.5 GM/DL (3.4-5.0) Test 10/10/16 10/11/16 21:40 05:40 Potassium Level 3.5 MEQ/L 3.4 MEQ/L (3.5-5.1) (3.5-5.1) Magnesium Level 2.2 MG/DL 1.8 MG/DL (1.5-2.5) (1.5-2.5) White Blood Count 12.8 TH/MM3 (4.0-11.0) Red Blood Count 3.11 MIL/MM3 (4.00-5.30) Hemoglobin 9.1 GM/DL (11.6-15.3) Hematocrit 26.6 % (35.0-46.0) Mean Corpuscular Volume 85.8 FL (80.0-100.0) Mean Corpuscular Hemoglobin 29.2 PG (27.0-34.0) Mean Corpuscular Hemoglobin 34.0 % Concent (32.0-36.0) Red Cell Distribution Width 17.9 % (11.6-17.2) Platelet Count 94 TH/MM3 (150-450) Mean Platelet Volume 9.1 FL (7.0-11.0) Neutrophils (%) (Auto) 78.3 % (16.0-70.0) Lymphocytes (%) (Auto) 14.6 % (9.0-44.0) Monocytes (%) (Auto) 3.4 % (0.0-8.0) Eosinophils (%) (Auto) 2.9 % (0.0-4.0) Basophils (%) (Auto) 0.8 % (0.0-2.0) Neutrophils # (Auto) 10.0 TH/MM3 (1.8-7.7) Lymphocytes # (Auto) 1.9 TH/MM3 (1.0-4.8) Monocytes # (Auto) 0.4 TH/MM3 (0-0.9) Eosinophils # (Auto) 0.4 TH/MM3 (0-0.4) Basophils # (Auto) 0.1 TH/MM3 (0-0.2) CBC Comment AUTO DIFF Differential Total Cells 100 Counted Neutrophils % (Manual) 55 % (16-70) Band Neutrophils % 31 % (0-6) Lymphocytes % 8 % (9-44) Monocytes % 2 % (0-8) Eosinophils % 4 % (0-4) Neutrophils # (Manual) 11.0 TH/MM3 (1.8-7.7) Differential Comment FINAL DIFF MANUAL Toxic Vacuolation PRESENT (NONE SEEN) Dohle Bodies PRESENT (NONE SEEN) Platelet Estimate LOW (NORMAL) Platelet Morphology Comment NORMAL (NORMAL) Sodium Level 148 MEQ/L (136-145) Chloride Level 115 MEQ/L (98-107) Carbon Dioxide Level 23.4 MEQ/L (21.0-32.0) Anion Gap 10 MEQ/L (5-15) Blood Urea Nitrogen 20 MG/DL (7-18) Creatinine 0.85 MG/DL (0.50-1.00) Estimat Glomerular Filtration 66 ML/MIN (>89) Rate Random Glucose 161 MG/DL (74-106) Calcium Level 8.1 MG/DL (8.5-10.1) Phosphorus Level 1.7 MG/DL (2.5-4.9) Total Bilirubin 0.8 MG/DL (0.2-1.0) Aspartate Amino Transf 21 U/L (15-37) (AST/SGOT) Alanine Aminotransferase 39 U/L (10-53) (ALT/SGPT) Alkaline Phosphatase 70 U/L (45-117) Total Protein 4.9 GM/DL (6.4-8.2) Albumin 1.8 GM/DL (3.4-5.0) Result Diagram: 10/11/16 0540 10/11/16 0540 Procedures Stump debridement and wound VAC placement 06/16/16 TPN Skin biopsies, face 07/24/16 Exploratory laparotomy, ileostomy, colostomy, bowel resection 10/08/16 . 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 No other specific skin pathology noted. . (8) pulmonary nodule on CT scan, 2.6 mm at the left base (9) depression (10) COPD, not oxygen dependent (11) history of breast cancer (12) anxiety (13) anemia Symptom Scale: (1) pain 0-10 Scale: 6 (she has been receiving [place] and parenteral hydromorphone) Comment: Pain has been mostly abdominal and pain related to her multiple skin lesions. . (2) anxiety 0-10 Scale: 4 (she has had occasional doses of Xanax that she says helps, but her anxiety is worsening overall) Comment: Well controlled with scheduled alprazolam. Not needing breakthrough alprazolam at this time. . (3) depression 0-10 Scale: 4 (long-term, was on Celexa at home, now on Zoloft; remains tearful frequently) Comment: Reasonably well controlled with sertraline. . Pertinent Non-Medical Issues Psychosocial: Second marriage for about 1 year, but most of that time in the hospital or SNF. No children, but has close friend Anuradha. Spiritual: Evaluation pending Legal: The patient has capacity for decision-making, and has designated her friend Anuradha and her Dwight as primary and secondary HCS respectively Ethical issues impacting care: None. . Important Contacts Primary HCS, close friend Anuradha Christian [phone] : Dwight Wilson [phone] . Prognosis She has suffered multiple illnesses, infections, and complications during the last 10 months, and now has undergone emergency surgery for more ischemic bowel. Her overall prognosis is quite poor, and she would be an appropriate hospice candidate if her proxy decision makers elected to transition to comfort care. . Code Status: Full Code Plan ==FULL CODE ==GOALS: The patient has previously wanted to continue AGGRESSIVE CARE. The patient remains at considerable risk for further complications including infections, bowel leak, pneumonia, etc. 10/11/16: I spoke with the patient about the prolonged hospitalization and the significant suffering and multiple procedures that she has been through already, and I again let her know that some people in her situation would decide to stop further aggressive care and transition to comfort measures. She wants to think about that longer. I also spoke with her healthcare surrogate, Anuradha Christian RN, and she feels it may already be time to transition to hospice and will also be speaking with the patient this weekend. ==DECISION-MAKING: The patient does seem to have regained her capacity for decision making, and the HCS is her friend Anuradha Christian and her Dwight Wilson as primary and secondary HCS respectively. ==SYMPTOMS: * Pain: Now with recent surgery; receiving hydromorphone * Anxiety: She was definitely improved on the current Xanax dosing. Now she is on propofol == Friend/HCS Anuradha Christian RN will come see the patient again this weekend, and will speak with the patient again regarding prognosis and goals. ==Palliative Care will continue to follow the patient during this hospitalization to further assist with symptom management and to re-visit goals of medical treatment if there are significant changes in the course of her illness. . . Time Spent Total Floor Time (mins): 39 Face to Face Time (mins): 22 >50% Counseling/Coord of Care: Yes Attestation To help prompt me to consider important information that might be impacting today's encounter and assessment, information from prior notes written by myself or my colleagues may have been "brought forward" into today's note. My signature on this note, however, is an attestation that I personally performed the exam, history, and/or decision-making noted today, and, unless otherwise indicated, the interactions with patient, family, and staff as well as the review of records all occurred today. I also attest that the listed assessment and stated plan reflect my best clinical judgment today based on the combination of historical information, prior notes, and today's exam/ interactions. When time spent is documented, it refers only to time spent today by the signer, or if indicated, combined time spent today by collaborating physician/nurse practitioner. Dalila Edouard MD Oct 11, 2016 16:49
[2016-10-11] MEDS: ENOXAPARIN SODIUM 40 MG/0.4 ML SYRINGE SQ SCH (17:40)
[2016-10-11] MEDS: CLINIMIX E 5/25 2000 mL- >42 mls/hr IV-CENTRAL SCH ×3 (20:04)
[2016-10-11] MEDS: FAT EMULSION 20% INJ 250 ML (Twice weekly over 8 hours) IV-CENTRAL SCH (20:04)
[2016-10-11] MEDS: LORazepam 2 MG/ML VIAL IV PRN (20:05)
[2016-10-11] MEDS ORDERED: METOPROLOL TARTRATE 5 MG/5 ML VIAL IV PUSH ONE (20:45)
[2016-10-11] MEDS ORDERED: ETOMIDATE 20 MG/10 ML VIAL ONE (21:21)
[2016-10-11] MEDS ORDERED: ROCURONIUM INJ 50 MG/5 ML VIAL ONE (21:21)
[2016-10-11 21:27] LABS: BLOOD GAS BASE EXCESS -0.6 mmol/L (-2-2); BLOOD GAS CARBOXYHEMOGLOBIN 1.3 % (0-4); BLOOD GAS HCO3 23 mmol/L (22-26); BLOOD GAS METHEMOGLOBIN 0.8 % (0-2); BLOOD GAS O2 HGB SATURATION 97 % (90-100); BLOOD GAS OXYGEN CONTENT 13.8 Vol % (12.0-20.0); BLOOD GAS PCO2 37 mmHg (38-42); BLOOD GAS PO2 178 mmHg (61-120); BLOOD GAS TOTAL HGB 9.8 G/DL (12.0-16.0); CRITICAL VALUE NO; TEMP CORR TO 98.6
[2016-10-11 21:28] LABS: DRAW SITE RT RADIAL; FIO2 100 %; LITER FLOW 15 L/M; NUMBER OF ARTERIAL PUNCTURES 1; STAT NO; ULNAR PULSE PRESENT
[2016-10-11] MEDS ORDERED: FUROSEMIDE 40 MG/4 ML VIAL IV PUSH ONE (21:30)
[2016-10-11 21:41] LABS: STAT NO
[2016-10-11] MEDS ORDERED: PHARMACY ORDERED LAB XX ONE (21:45)
[2016-10-11] MEDS: ACETAMINOPHEN 325 MG TAB PO PRN (21:48)
[2016-10-11] MEDS: MIRTAZAPINE ODT 15 MG TAB PO SCH (22:03)
[2016-10-11] MEDS: PANTOPRAZOLE SODIUM 40 MG VIAL IV PUSH SCH (22:03)
[2016-10-11] MEDS: FLUCONAZOLE 200 MG PREMIX BAG 100 ML IV SCH (22:04)
--- NOTE | 2016-10-11 22:22 | EKG ---
Date Performed: 10/10/2016 Time Performed: 10:35:10 PTAGE: 71 years EKG: Sinus tachycardia. Poor R wave progression - probable normal variant Inferior T wave change s are nonspecific Low QRS voltages in precordial leads Borderline ECG Compared to the PREVIOUS TRACING , a fib no longer present DOCTOR: August Graham Interpretating Date/Time 10/11/2016 22:20:13
--- NOTE | 2016-10-11 22:23 | EKG ---
Date Performed: 10/10/2016 Time Performed: 08:27:04 PTAGE: 71 years EKG: Atrial fibrillation with RVR Possible anterior infarct - age undetermined Inferior/lateral ST-T changes Abnormal ECG Compared to the PREVIOUS TRACING , SR no longer present DOCTOR: August Graham Interpretating Date/Time 10/11/2016 22:21:43
[2016-10-11 22:32] LABS: AUTOMATED NEUTROPHIL # 10.5 TH/MM3 (1.8-7.7); BASOPHIL # 0.1 TH/MM3 (0-0.2); BASOPHIL % 0.5 % (0.0-2.0); EOSINOPHIL # 0.2 TH/MM3 (0-0.4); EOSINOPHIL % 1.5 % (0.0-4.0); HEMATOCRIT 29.6 % (35.0-46.0); LYMPH % 11.1 % (9.0-44.0); LYMPHOCYTE # 1.4 TH/MM3 (1.0-4.8); MEAN CELL VOLUME 85.2 FL (80.0-100.0); MEAN CORPUSCULAR HEMOGLOBIN 29.6 PG (27.0-34.0); MEAN CORPUSCULAR HGB CONC 34.8 % (32.0-36.0); MONO % 2.5 % (0.0-8.0); NEUT % 84.4 % (16.0-70.0); PLATELET COUNT 118 TH/MM3 (150-450); RED BLOOD COUNT 3.47 MIL/MM3 (4.00-5.30); RED CELL DISTRIBUTION WIDTH 17.5 % (11.6-17.2); WHITE BLOOD COUNT 12.4 TH/MM3 (4.0-11.0)
[2016-10-11 22:33] LABS: HEMO FLAGS AUTO DIFF
--- NOTE | 2016-10-11 22:37 | HHI.IDPN ---
Subjective Subjective Remarks Delayed entry - pt was seen around 1400 ID reconsulted pt is extubated off pressors no fever co abdominal pain no stool output from stoma Antibiotics Vancomycin cefepime flagyl Lines Port Past Medical History 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 Vital Signs Date Time Temp Pulse Resp B/P Pulse Ox O2 Delivery O2 Flow Rate FiO2 10/11/16 21:31 97 Non-Rebreather 15.00 10/11/16 20:17 94 Nasal Cannula 5.00 10/11/16 18:00 134 10/11/16 16:00 99.8 122 25 170/77 95 10/11/16 16:00 122 10/11/16 14:00 111 10/11/16 12:00 98.9 123 29 123/62 95 10/11/16 12:00 123 10/11/16 10:00 124 10/11/16 08:00 98.3 115 26 135/62 92 10/11/16 08:00 120 10/11/16 07:51 94 Nasal Cannula 4.00 10/11/16 07:00 94 Nasal Cannula 4.00 10/11/16 06:00 121 10/11/16 04:00 98.1 117 28 140/63 94 10/11/16 04:00 100 10/11/16 02:00 115 10/11/16 00:00 99.8 118 24 139/97 95 10/11/16 00:00 118 10/10/16 10/10/16 10/11/16 14:59 22:59 06:59 Intake Total 2742 ml 1831 ml 608 ml Output Total 1770 ml 2970 ml 1280 ml Balance 972 ml -1139 ml -672 ml IV Total 2166 ml 1104 ml 220 ml TPN/PPN 576 ml 627 ml 255 ml Lipid 100 ml 133 ml Output Urine Total 800 ml 1700 ml 800 ml Stool Total 60 ml 0 ml 20 ml Gastric Drainage Total 400 ml 800 ml 400 ml Drainage Total 510 ml 470 ml 60 ml . Laboratory Tests Test 10/10/16 10/11/16 04:45 05:40 White Blood Count 13.6 TH/MM3 12.8 TH/MM3 Red Blood Count 3.07 MIL/MM3 3.11 MIL/MM3 Hemoglobin 9.0 GM/DL 9.1 GM/DL Hematocrit 26.4 % 26.6 % Mean Corpuscular Volume 86.1 FL 85.8 FL Mean Corpuscular Hemoglobin 29.4 PG 29.2 PG Mean Corpuscular Hemoglobin 34.1 % 34.0 % Concent Red Cell Distribution Width 18.0 % 17.9 % Platelet Count 132 TH/MM3 94 TH/MM3 Mean Platelet Volume 9.0 FL 9.1 FL Neutrophils (%) (Auto) 82.8 % 78.3 % Lymphocytes (%) (Auto) 11.7 % 14.6 % Monocytes (%) (Auto) 3.1 % 3.4 % Eosinophils (%) (Auto) 1.8 % 2.9 % Basophils (%) (Auto) 0.6 % 0.8 % Neutrophils # (Auto) 11.3 TH/MM3 10.0 TH/MM3 Lymphocytes # (Auto) 1.6 TH/MM3 1.9 TH/MM3 Monocytes # (Auto) 0.4 TH/MM3 0.4 TH/MM3 Eosinophils # (Auto) 0.2 TH/MM3 0.4 TH/MM3 Basophils # (Auto) 0.1 TH/MM3 0.1 TH/MM3 CBC Comment AUTO DIFF AUTO DIFF Differential Total Cells 100 100 Counted Neutrophils % (Manual) 72 % 55 % Band Neutrophils % 16 % 31 % Lymphocytes % 10 % 8 % Monocytes % 1 % 2 % Neutrophils # (Manual) 12.1 TH/MM3 11.0 TH/MM3 Metamyelocytes 1 % Differential Comment FINAL DIFF FINAL DIFF MANUAL MANUAL Platelet Estimate LOW LOW Platelet Morphology Comment NORMAL NORMAL [place] Cells 1+ Acanthocytes 1+ Eosinophils % 4 % Toxic Vacuolation PRESENT Dohle Bodies PRESENT Laboratory Tests Test 10/10/16 10/10/16 10/11/16 04:45 21:40 05:40 Sodium Level 148 MEQ/L 148 MEQ/L Potassium Level 3.0 MEQ/L 3.5 MEQ/L 3.4 MEQ/L Chloride Level 116 MEQ/L 115 MEQ/L Carbon Dioxide Level 22.5 MEQ/L 23.4 MEQ/L Anion Gap 10 MEQ/L 10 MEQ/L Blood Urea Nitrogen 24 MG/DL 20 MG/DL Creatinine 0.96 MG/DL 0.85 MG/DL Estimat Glomerular Filtration 57 ML/MIN 66 ML/MIN Rate Random Glucose 165 MG/DL 161 MG/DL Calcium Level 7.9 MG/DL 8.1 MG/DL Phosphorus Level 2.0 MG/DL 1.7 MG/DL Magnesium Level 1.7 MG/DL 2.2 MG/DL 1.8 MG/DL Total Bilirubin 0.8 MG/DL 0.8 MG/DL Aspartate Amino Transf 32 U/L 21 U/L (AST/SGOT) Alanine Aminotransferase 44 U/L 39 U/L (ALT/SGPT) Alkaline Phosphatase 61 U/L 70 U/L Total Protein 4.3 GM/DL 4.9 GM/DL Albumin 1.5 GM/DL 1.8 GM/DL Imaging Last Impressions Chest X-Ray 10/10/16 0600 Signed Impressions: Service Date/Time: Monday, October 10, 2016 04:22 - CONCLUSION: Worsening bibasilar consolidation and small effusions, especially on the left. Calixto Woodruff MD Abdomen/Pelvis CT 10/08/16 1057 Signed Impressions: Service Date/Time: Saturday, October 08, 2016 11:14 - CONCLUSION: 1. Findings very suspicious for ischemic colon. Postsurgical findings with evidence of prior colectomy. There is evidence of bowel wall pneumatosis of the transverse colon in the region of anastomosis. Adjacent small bubbles of extraluminal gas but may be within the portal venous system or free also noted. These findings are highly suspicious for ischemic colon. 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 2. Marked nonspecific distention of the stomach. Alexandru Lynch MD Liver Ultrasound 07/12/16 0000 Signed Impressions: Service Date/Time: Tuesday, July 12, 2016 18:07 - CONCLUSION: 1. No acute abnormality demonstrated. 2. Heterogeneous liver without measurable mass. 3. Small and heterogeneous spleen without a measurable mass. 4. Cortical thinning and scarring of the right kidney. 5. Previous cholecystectomy. Calixto Woodruff MD Chest CT 07/09/16 0000 Signed Impressions: Service Date/Time: Saturday, July 09, 2016 14:43 - CONCLUSION: 1. Small right pleural effusion and minimal right basilar consolidation. 2. 6 mm left basilar nodule. Followup CT chest 6 months recommended. Florian Pepper MD Lower Extremity Ultrasound 06/25/16 0000 Signed Impressions: Service Date/Time: Saturday, June 25, 2016 15:56 - CONCLUSION: Negative exam with no evidence of deep venous thrombosis. Soft tissue edema. Mike Leija MD Port Line Insertion 06/20/16 0000 Signed Impressions: Service Date/Time: Monday, June 20, 2016 08:53 - CONCLUSION: Uncomplicated ultrasound and fluoroscopic guided implanted central venous port catheter placement as described in detail above. An 8 [place] [employer] port was placed. Kevan Salgado Jr., MD Physical Exam CONSTITUTIONAL/GENERAL: lethargic and very confused moaning with pain TUBES/LINES/DRAINS: PORT in place L chest , no skin changes New ly placed R IJ SKIN: No jaundice, rashes, or lesions. Skin temperature appropriate. Not diaphoretic. HEAD: Atraumatic. Normocephalic. EYES: Pupils equal and round and reactive. Extraocular motions intact. No scleral icterus. No injection or drainage. Fundi not examined. ENT: Oral mucosae without visible erythema, exudates, masses, or lesions. CARDIOVASCULAR: Regular rate and rhythm without murmurs, gallops, or rubs. No JVD. RESPIRATORY/CHEST: Symmetric, unlabored respirations. Clear to auscultation. Breath sounds equal bilaterally. No wheezes, rales, or rhonchi. 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 Hamlin catheter in place with clear yellow urine MUSCULOSKELETAL: Extremities without clubbing, cyanosis, + 1 edema. Well healed L BKA No mottling or clubbing. NEUROLOGICAL: lethargic to obtunded PSYCHIATRIC: Unav]ble to assess 2/2 mental status Assessment & Plan Remarks IMPRESSION ischemic bowel, perforation sp emergent resection 10/08 Sepsis 2/2 ischemic bowel and perforation lorenzo S Kleb pneumo bacteremia Low grade coag neg staph bacteremia, ? clin significance Recent h/o Infection LBKA stump, C/S Klebsiella ESBL+ and Morganella Multiple Abx allergy - has tolerated Ertapenem and Cephalosporins in the past PVD Recent Staph hominis sepsis, has MV vegetation sp tx with vancomycvin RECOMMENDATION dc meropenem start rocephin cont flagyl Continue Vancomycin for now repeat blood clx if repeat BC negative will dc vancomycin dc fruconazole dw Roxana Gautam MD Oct 11, 2016 22:37
[2016-10-11 22:43] LABS: POTASSIUM 3.4 MEQ/L (3.5-5.1)
[2016-10-11] MEDS: VANCOMYCIN 1,000 MG/NS 250 ML IV SCH ×2 (22:59)
[2016-10-11 23:04] LABS: BANDS 14 % (0-6); EOSINOPHILS 3 % (0-4); METAMYELOCYTES 1 % (0-1); MYELOCYTES 2 % (0-0); NEUTROPHIL # MANUAL DIFF 9.8 TH/MM3 (1.8-7.7); POLYS (SEG NEUTROPHILS) 62 % (16-70); SCAN/DIFF FINAL DIFF MANUAL; WBC DIFF SAMPLE 100
[2016-10-11 23:06] LABS: PLATELET ESTIMATE SMEAR LOW (NORMAL); PLATELET MORPHOLOGY NORMAL (NORMAL); TOXIC VACUOLATION PRESENT (NONE SEEN)
[2016-10-11] MEDS: ICU - POTASSIUM CHLORIDE 10% LIQUID 40 MEQ/30 ML CUP PO PRN (23:09)
[2016-10-12] VITALS (14 sets, daily range): BP systolic 109–137; BP diastolic 60–68; PULSE 102–128; RESP 14–34; TEMP 98.3–101; O2SAT 93–96
[2016-10-12] MEDS: cefTRIAXone INJ 2,000 MG in SODIUM CHLORIDE 0.9% INJ 100 ML IV SCH ×2 (00:36→22:06)
[2016-10-12] MEDS: POTASSIUM CHLORIDE INJ 30 MEQ in SODIUM CHLORIDE 0.9% INJ 100 ML IV-CENTRAL SCH ×2 (00:36→03:37)
[2016-10-12] MEDS: HYDROmorphone HCL PF 1 MG/ML VIAL IV PRN ×5 (00:51→22:06)
[2016-10-12] MEDS: METOPROLOL TARTRATE 5 MG/5 ML VIAL IV PUSH SCH ×4 (01:00→18:04)
[2016-10-12] MEDS: RESP: ALBUTEROL 2.5 MG/IPRATROPIUM 0.5 MG NEB (SCH) NEB ×4 (03:06→21:48)
[2016-10-12] MEDS: INSULIN ASPART SUPPLEMENTAL SCALE SQ SCH ×4 (03:55→21:15)
[2016-10-12 04:19] LABS: AUTOMATED NEUTROPHIL # 4.5 TH/MM3 (1.8-7.7); BASOPHIL # 0.1 TH/MM3 (0-0.2); BASOPHIL % 0.9 % (0.0-2.0); EOSINOPHIL # 0.2 TH/MM3 (0-0.4); EOSINOPHIL % 3.2 % (0.0-4.0); HEMATOCRIT 29.6 % (35.0-46.0); LYMPH % 31.7 % (9.0-44.0); LYMPHOCYTE # 2.5 TH/MM3 (1.0-4.8); MEAN CELL VOLUME 86.4 FL (80.0-100.0); MEAN CORPUSCULAR HGB CONC 33.5 % (32.0-36.0); NEUT % 57.2 % (16.0-70.0); PLATELET COUNT 87 TH/MM3 (150-450); RED BLOOD COUNT 3.43 MIL/MM3 (4.00-5.30); RED CELL DISTRIBUTION WIDTH 17.4 % (11.6-17.2); WHITE BLOOD COUNT 7.8 TH/MM3 (4.0-11.0)
[2016-10-12 04:30] LABS: HEMO FLAGS AUTO DIFF
[2016-10-12 04:44] LABS: ANION GAP 9 MEQ/L (5-15); AST (GOT) 15 U/L (15-37); BICARBONATE 26.8 MEQ/L (21.0-32.0); BLOOD UREA NITROGEN 18 MG/DL (7-18); CHLORIDE 111 MEQ/L (98-107); GLOMERULAR FILTRATION RATE 68 ML/MIN (>89); MAGNESIUM 1.4 MG/DL (1.5-2.5); POTASSIUM 3.6 MEQ/L (3.5-5.1); SODIUM (NA) 147 MEQ/L (136-145)
[2016-10-12 04:49] LABS: ALKALINE PHOSPHATASE 92 U/L (45-117); ALT (GPT) 31 U/L (10-53); TOTAL BILIRUBIN ADULT 0.7 MG/DL (0.2-1.0)
[2016-10-12] MEDS: ALPRAZolam 0.25 MG TAB PO SCH ×3 (06:23→20:25)
[2016-10-12] MEDS: metroNIDAZOLE 500 MG INJ 100 ML IV SCH ×3 (06:24→20:26)
--- NOTE | 2016-10-12 06:33 | RADRPT ---
EXAM DATE/TIME: 10/12/2016 05:39 [facility] COMPARISON: CHEST SINGLE AP, October 10, 2016, 4:22. INDICATIONS : Evaluate for pulmonary disease. MEDICAL HISTORY : None. SURGICAL HISTORY : None. ENCOUNTER: Subsequent ACUITY: 4 - 6 days PAIN SCORE: Non-responsive. LOCATION: Bilateral chest FINDINGS: Bibasilar consolidation again noted, not significantly changed. Probably a small left pleural effusio n. No pneumothorax. Endotracheal tube out in the interim. Nasogastric tube courses into the stomach. Bilateral IJ central venous catheters with tips in the sup erior vena cava are again noted. CONCLUSION: No significant change bibasilar consolidation. Interim extubation. Other lines and tubes unchanged, a s above. Calixto Woodruff MD on October 12, 2016 at 6:29 Board Certified Radiologist. This report was verified electronically.
[2016-10-12] MEDS: ENALAPRILAT 1.25 MG/ML VIAL IV PUSH SCH ×3 (07:07→18:04)
--- NOTE | 2016-10-12 07:40 | HHI.PR ---
Subjective Remarks ill looking- noted that had a fever of 101 last night. d/w the RN; apparently had respiratory distress last night- received lasix and now somewhat more comfortable. complaining of generalized abdominal pain. Objective Vitals Vital Signs Date Time Temp Pulse Resp B/P Pulse Ox O2 Delivery O2 Flow Rate FiO2 10/12/16 06:00 113 10/12/16 04:00 120 10/12/16 04:00 98.7 120 34 133/68 95 10/12/16 02:00 126 10/12/16 00:00 101.0 128 25 131/68 95 10/12/16 00:00 128 10/11/16 22:00 134 10/11/16 21:31 97 Non-Rebreather 15.00 10/11/16 20:45 140/74 10/11/16 20:17 94 Nasal Cannula 5.00 10/11/16 20:00 139 10/11/16 20:00 99.9 140 40 173/89 92 10/11/16 19:00 92 Simple Mask 6.00 10/11/16 18:00 134 10/11/16 16:00 99.8 122 25 170/77 95 10/11/16 16:00 122 10/11/16 14:00 111 10/11/16 12:00 98.9 123 29 123/62 95 10/11/16 12:00 123 10/11/16 10:00 124 10/11/16 08:00 98.3 115 26 135/62 92 10/11/16 08:00 120 10/11/16 07:51 94 Nasal Cannula 4.00 I/O 10/11/16 10/11/16 10/11/16 10/12/16 10/12/16 10/12/16 06:59 14:59 22:59 06:59 14:59 22:59 Intake Total 608 ml 1442 ml 799 ml 1523 ml Output Total 1280 ml 2210 ml 1988 ml 3100 ml Balance -672 ml -768 ml -1189 ml -1577 ml Intake Oral 0 ml 0 ml IV Total 220 ml 896 ml 301 ml 852 ml TPN/PPN 255 ml 546 ml 439 ml 488 ml Lipid 133 ml 59 ml 183 ml Output Urine Total 800 ml 1150 ml 1300 ml 2400 ml Stool Total 20 ml 40 ml Gastric Drainage Total 400 ml 900 ml Drainage Total 60 ml 120 ml 688 ml 700 ml Result Diagram: 10/12/16 0340 10/12/16 0340 Imaging Last Impressions Chest X-Ray 10/12/16 0600 Signed Impressions: Service Date/Time: September 05:39 - CONCLUSION: No significant change bibasilar consolidation. Interim extubation. Other lines and tubes unchanged, as above. Calixto Woodruff MD Abdomen/Pelvis CT 10/08/16 1057 Signed Impressions: Service Date/Time: Saturday, October 08, 2016 11:14 - CONCLUSION: 1. Findings very suspicious for ischemic colon. Postsurgical findings with evidence of prior colectomy. There is evidence of bowel wall pneumatosis of the transverse colon in the region of anastomosis. Adjacent small bubbles of extraluminal gas but may be within the portal venous system or free also noted. These findings are highly suspicious for ischemic colon. 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 2. Marked nonspecific distention of the stomach. Alexandru Lynch MD Liver Ultrasound 07/12/16 0000 Signed Impressions: Service Date/Time: Tuesday, July 12, 2016 18:07 - CONCLUSION: 1. No acute abnormality demonstrated. 2. Heterogeneous liver without measurable mass. 3. Small and heterogeneous spleen without a measurable mass. 4. Cortical thinning and scarring of the right kidney. 5. Previous cholecystectomy. Calixto Woodruff MD Chest CT 07/09/16 0000 Signed Impressions: Service Date/Time: Saturday, July 09, 2016 14:43 - CONCLUSION: 1. Small right pleural effusion and minimal right basilar consolidation. 2. 6 mm left basilar nodule. Followup CT chest 6 months recommended. Florian Pepper MD Lower Extremity Ultrasound 06/25/16 0000 Signed Impressions: Service Date/Time: Saturday, June 25, 2016 15:56 - CONCLUSION: Negative exam with no evidence of deep venous thrombosis. Soft tissue edema. Mike Leija MD Port Line Insertion 06/20/16 0000 Signed Impressions: Service Date/Time: Monday, June 20, 2016 08:53 - CONCLUSION: Uncomplicated ultrasound and fluoroscopic guided implanted central venous port catheter placement as described in detail above. An 8 [employer] port was placed. Kevan Salgado Jr., MD Objective Remarks GENERAL: ill looking but in no acute distress CARDIOVASCULAR: Regular rate and irregular rhythm without murmurs, gallops, or rubs. RESPIRATORY: Clear to auscultation. Breath sounds equal bilaterally. No wheezes , rales, or rhonchi. GASTROINTESTINAL: Abdomen soft, colostomy in place MUSCULOSKELETAL: s/p left BKA NEURO: Alert & Oriented x4 to person, place, time, situation. Moves all ext x4 Procedures Left stump debridement by Dr. 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 laparotomy Medications and IVs Current Medications Sodium Chloride (NS 1000 ml Inj) 1,000 ml @ 60 mls/hr [id number] IV Last administered on 06/20/16at 23:16; Start 06/14/16 at 17:00; Stop 06/21/16 at 11:39 ; Status DC IV Flush (NS Flush) 2 ml BID IV FLUSH Last administered on 10/08/16at 09:00; Start 06/14/16 at 21:00; Stop 10/08/16 at 15:03; Status DC IV Flush (NS Flush) 2 ml UNSCH PRN IV FLUSH FLUSH AFTER USING IV ACCESS Last administered on 09/17/16at 08:59; Start 06/14/16 at 17:00; Stop 10/08/16 at 15: 03; Status DC Oxycodone/ Acetaminophen (Percocet 5-325 Mg) 1 tab Q4H PRN PO PAIN SCALE 1 TO 5 Last administered on 06/22/16at 04:13; Start 06/14/16 at 17:00; Stop 07/01/16 at 17:04; Status DC Diltiazem HCl 120 mg 120 mg DAILY PO Last administered on 08/31/16at 08:43; Start 06/15/16 at 09:00; Stop 08/31/16 at 09:17; Status DC Vancomycin HCl 500 mg/Sodium Chloride 100 ml @ 200 mls/hr ONCE ONCE IV Last administered on 06/14/16at 18:51; Start 06/14/16 at 18:00; Stop 06/14/16 at 18:29 ; Status DC Pharmacy Profile Note ml @ 0 mls/hr UNSCH XX ; Start 06/14/16 at 18:00; Stop at 13:55; Status DC Aztreonam/Sodium Chloride (Azactam Inj/NS Inj) 100 ml @ 200 mls/hr Q8H IV Last administered on 06/17/16at 11:55; Start 06/14/16 at 20:00; Stop 06/17/16 at 13:55; Status DC Alprazolam (Xanax) 0.125 mg Q6H PRN PO anxiety Last administered on 07/24/16at 12:21; Start 06/14/16 at 17:45; Stop 07/26/16 at 10:50; Status DC Calcitriol (Rocaltrol) 0.25 mcg DAILY PO Last administered on 10/11/16at 08:14 ; Start 06/15/16 at 09:00 Citalopram Hydrobromide (CeleXA) 40 mg DAILY PO Last administered on 07/07/16at 09:12; Start 06/15/16 at 09:00; Stop 07/07/16 at 11:49; Status DC Diltiazem HCl (Cardizem Cd) 120 mg DAILY PO ; Start 06/15/16 at 09:00; Stop at 09:00; Status DC Ferrous Sulfate (Ferrous Sulfate) 325 mg DAILY PO Last administered on at 08:14; Start 06/15/16 at 09:00 Gabapentin (Neurontin) 100 mg HS PO Last administered on 09/23/16at 21:27; Start 06/14/16 at 21:00; Stop 09/24/16 at 11:05; Status DC Lactobacillus Acidophilus (Lactinex) 1 tab TID PO Last administered on at 10:10; Start 06/14/16 at 18:00; Stop 10/08/16 at 20:00; Status DC Loperamide HCl (Imodium) 2 mg Q6H PRN PO DIARRHEA Last administered on at 17:14; Start 06/14/16 at 17:45; Stop 09/08/16 at 14:24; Status DC Multivitamins/ Minerals Therapeutic (Theragran M Tab) 1 tab DAILY PO Last administered on 06/15/16at 08:17; Start 06/15/16 at 09:00; Stop 06/15/16 at 11:41 ; Status DC Tetracycline HCl (Sumycin) 250 mg Q6HR PO ; Start 06/14/16 at 18:00; Stop at 18:00; Status DC Calcium/Vitamin D (Oscal-D 250-125) 500 mg BID PO Last administered on at 22:03; Start 06/14/16 at 21:00 Pantoprazole Sodium (Protonix) 20 mg BID PO Last administered on 07/09/16at 09: 00; Start 06/14/16 at 21:00; Stop 07/09/16 at 16:36; Status DC Ondansetron HCl (Zofran Odt) 8 mg Q6H PRN PO NAUSEA OR VOMITING Last administered on 10/08/16at 06:55; Start 06/14/16 at 18:15; Stop 10/08/16 at 20: 00; Status DC Miscellaneous 1 ea 1 ea UNSCH PRN OTHER SEE LABEL COMMENTS; Start 06/14/16 at 18:00 Vancomycin HCl/ Sodium Chloride (Vancomycin Inj/ NS 250 ml Inj) 262 ml @ 250 mls/hr Q12H IV Last administered on 06/15/16at 08:16; Start 06/15/16 at 08:00; Stop 06/15/16 at 10:02; Status DC Miscellaneous Information SPECIFIC LAB TO BE DRAWN:VA... ONCE ONCE XX Last administered on 06/16/16at 07:45; Start 06/16/16 at 07:45; Stop 06/16/16 at 07:46 ; Status DC Vancomycin HCl/ Sodium Chloride (Vancomycin Inj/ NS 250 ml Inj) 265 ml @ 250 mls/hr Q12H IV Last administered on 06/16/16at 08:50; Start 06/15/16 at 20:00; Stop 06/16/16 at 11:16; Status DC Bupivacaine HCl (Marcaine Pf 0.5% Inj) 30 ml STK-MED ONCE .ROUTE Last administered on 06/15/16at 11:20; Start 06/15/16 at 10:23; Stop 06/15/16 at 10:24 ; Status DC Bacitracin (Baciguent Oint) 15 applic STK-MED ONCE .ROUTE ; Start 06/15/16 at 10 :23; Stop 06/15/16 at 10:24; Status DC Acetaminophen (Ofirmev Inj) 1,000 mg STK-MED ONCE IV ; Start 06/15/16 at 10:29; Stop 06/15/16 at 10:30; Status DC Gentamicin Sulfate (Gentamicin Inj) 240 mg STK-MED ONCE .ROUTE Last administered on 06/15/16at 11:20; Start 06/15/16 at 10:30; Stop 06/15/16 at 10:31 ; Status DC Multivitamins (Theragran) 1 tab DAILY PO Last administered on 10/11/16at 08:14 ; Start 06/15/16 at 12:00 Rivaroxaban (Xarelto) 20 mg DAILY PO Last administered on 06/19/16at 09:00; Start 06/15/16 at 12:00; Stop 06/20/16 at 15:39; Status DC Morphine Sulfate (*morphine INJ PERIprocedure ONLY) 8 mg STK-MED ONCE .ROUTE Last administered on 06/15/16at 11:56; Start 06/15/16 at 11:56; Stop 06/15/16 at 11:57; Status DC Morphine Sulfate (*morphine INJ PERIprocedure ONLY) 8 mg STK-MED ONCE .ROUTE Last administered on 06/15/16at 12:03; Start 06/15/16 at 12:03; Stop 06/15/16 at 12:04; Status DC Miscellaneous Information ALL NURSING DEPARTME... UNSCH PRN XX SEE LABEL COMMENTS; Start 06/15/16 at 12:45; Stop 06/16/16 at 12:44; Status DC Midazolam HCl (Versed Inj) 2 mg STK-MED ONCE .ROUTE ; Start 06/15/16 at 14:13; Stop 06/15/16 at 14:14; Status DC Fentanyl Citrate (Sublimaze Inj) 100 mcg STK-MED ONCE .ROUTE ; Start 06/15/16 at 14:14; Stop 06/15/16 at 14:15; Status DC Fentanyl Citrate (Sublimaze Inj) 100 mcg STK-MED ONCE .ROUTE ; Start 06/15/16 at 14:14; Stop 06/15/16 at 14:15; Status DC Hydromorphone HCl (Dilaudid Pf Inj) 1 mg Q4H PRN IV PUSH BREAKTHROUGH PAIN Last administered on 08/09/16at 21:35; Start 06/15/16 at 14:30; Stop 08/18/16 at 11:29; Status DC Potassium Chloride (KCl) 30 meq ONCE ONCE PO Last administered on 06/15/16at 19 :11; Start 06/15/16 at 18:45; Stop 06/15/16 at 18:50; Status DC Propofol (Diprivan 200 Mg/20 ml Inj) 200 mg STK-MED ONCE IV ; Start 06/15/16 at 12:00; Stop 06/16/16 at 09:32; Status DC Phenylephrine HCl (Neosynephrine/ NS 1000 Mcg/10ml Syr) 1,000 mcg STK-MED ONCE IV ; Start 06/15/16 at 12:00; Stop 06/16/16 at 09:32; Status DC Ondansetron HCl 4 mg 4 mg STK-MED ONCE IV PUSH ; Start 06/15/16 at 12:00; Stop 06/16/16 at 09:32; Status DC Vancomycin HCl/ Sodium Chloride (Vancomycin Inj/ NS 250 ml Inj) 265 ml @ 250 mls/hr Q18H IV Last administered on 06/17/16at 02:44; Start 06/17/16 at 03:00; Stop 06/17/16 at 13:55; Status DC Miscellaneous Information SPECIFIC LAB TO BE DRAWN:VANCOMYCIN TROUGH DATE TO... ONCE ONCE XX ; Start 06/18/16 at 14:45; Stop 06/18/16 at 14:46; Status Cancel Ceftolozane/ Tazobactam/Sodium Chloride (Zerbaxa Inj/NS Inj) 100 ml @ 100 mls/ hr Q8H IV Last administered on 06/20/16at 01:19; Start 06/17/16 at 16:00; Stop 06/20/16 at 15:19; Status DC Fluconazole (Diflucan) 150 mg ONCE ONCE PO Last administered on 06/17/16at 16: 45; Start 06/17/16 at 14:15; Stop 06/17/16 at 14:16; Status DC Potassium Chloride 40 meq 40 meq ONCE ONCE PO Last administered on 06/18/16at 15:56; Start 06/18/16 at 16:00; Stop 06/18/16 at 16:01; Status DC Magnesium Sulfate/ Dextrose (Magnesium Sulfate 1 Gm Premix) 100 ml @ 100 mls/ hr Q1H IV Last administered on 06/19/16 02:48; Start 06/19/16 at 02:00; Stop 06/19/16 at 03:59; Status DC Nystatin 1 applic 1 applic Q12HR TOPICAL Last administered on 07/11/16at 09:00; Start 06/19/16 at 15:00; Stop 07/11/16 at 10:22; Status DC Vancomycin HCl/ Sodium Chloride (Vancomycin Inj/ NS 250 ml Inj) 250 ml @ 250 mls/hr [employer] SAL[employer] ONCE IV Last administered on 06/20/16at 08:32; Start 06/20/16 at 10:00; Stop 06/20/16 at 10:59; Status DC Midazolam HCl (Versed Inj) 5 mg STK-MED ONCE .ROUTE Last administered on at 09:10; Start 06/20/16 at 08:48; Stop 06/20/16 at 08:49; Status DC Fentanyl Citrate (Sublimaze Inj) 250 mcg STK-MED ONCE .ROUTE Last administered on 06/20/16at 09:10; Start 06/20/16 at 08:49; Stop 06/20/16 at 08:50; Status DC Heparin Sodium (Porcine) (*HEPARIN CENTRAL FLUSH PERIprocedural ONLY) 500 units STK-MED ONCE .ROUTE ; Start 06/20/16 at 09:01; Stop 06/20/16 at 09:02; Status DC Lidocaine/ Epinephrine (Xylocaine-Epi 1%-1:100,000 Inj) 30 ml STK-MED ONCE .ROUTE ; Start 06/20/16 at 09:02; Stop 06/20/16 at 09:03; Status DC Heparin Sodium (Porcine) (Heparin Central Flush) 500 units UNSCH IVF Last administered on 10/06/16at 12:24; Start 06/20/16 at 11:30 IV Flush (NS Flush) 5 ml UNSCH PRN IVF SEE PROTOCOL Last administered on at 17:30; Start 06/20/16 at 11:30 Heparin Sodium (Porcine) (Heparin Central Flush) 250 units UNSCH PRN IVF SEE PROTOCOL Last administered on 07/26/16at 14:54; Start 06/20/16 at 11:30 Miscellaneous Medication (ASP Crit: Doc ESBL, MDR A baumannii or P aer) 1 UNSCH X1 PRN XX PHARMACY DOCUMENTATION; Start 06/20/16 at 15:30; Stop 06/21/16 at 15: 29; Status DC Miscellaneous Medication 1 1 UNSCH X1 PRN XX PHARMACY DOCUMENTATION; Start at 15:30; Stop 06/21/16 at 15:29; Status DC Ertapenem/Sodium Chloride (INVanz INJ/NS Inj) 100 ml @ 200 mls/hr Q24H IV Last administered on 06/22/16at 19:57; Start 06/20/16 at 17:00; Stop 06/23/16 at 12 :51; Status DC Rivaroxaban 20 mg 20 mg DAILY PO Last administered on 10/08/16at 10:11; Start 06/21/16 at 09:00; Stop 10/08/16 at 20:01; Status DC Multivitamins 10 ml/Folic Acid 1 mg/Amino Acid Electrolyte w/ Calc 1,010.2 ml @ 42 mls/hr Q24H IV-CENTRAL Last administered on 07/13/16at 18:23; Start at 20:00; Stop 07/14/16 at 18:08; Status DC Fat Emulsion Intravenous (Liposyn Iii 20% Inj) 250 ml @ 31.25 mls/ hr Q24H IV- CENTRAL Last administered on 07/14/16at 23:05; Start 06/20/16 at 20:00; Stop at 19:59; Status DC Potassium Chloride 60 meq 60 meq ONCE ONCE PO Last administered on 06/20/16at 21:59; Start 06/20/16 at 21:00; Stop 06/20/16 at 21:01; Status DC Magnesium Sulfate/ Dextrose (Magnesium Sulfate 1 Gm Premix) 100 ml @ 100 mls/ hr Q1H IV Last administered on 06/21/16at 14:32; Start 06/21/16 at 13:15; Stop 06/21/16 at 15:14; Status DC Potassium Chloride (KCl) 20 meq ONCE ONCE PO Last administered on 06/21/16at 13 :35; Start 06/21/16 at 13:15; Stop 06/21/16 at 13:16; Status DC Albuterol/ Ipratropium (Duoneb Neb) 1 ampule Q4HR NEB PRN NEB SOB/WHEEZING Last administered on 07/24/16at 16:02; Start 06/21/16 at 20:15; Stop 08/18/16 at 11:29; Status DC Oxycodone/ Acetaminophen 1 tab 1 tab Q4H PRN PO pain 6-10 Last administered on 06/22/16at 18:20; Start 06/22/16 at 13:00; Stop 06/22/16 at 19:13; Status DC Potassium Chloride (KCl 10 Meq Premix Inj) 100 ml @ 100 mls/hr Q1H IV Last administered on 06/22/16at 23:49; Start 06/22/16 at 19:00; Stop 06/22/16 at 21:59; Status DC Oxycodone/ Acetaminophen (Percocet 10-325 Mg) 1 tab Q4H PRN PO PAIN SCALE 6 TO 10 Last administered on 07/05/16at 21:03; Start 06/22/16 at 19:15; Stop 07/06/16 at 11:13; Status DC Potassium Chloride (KCl) 30 meq ONCE ONCE PO Last administered on 06/23/16at 13: 18; Start 06/23/16 at 12:00; Stop 06/23/16 at 12:01; Status DC Oxycodone/ Acetaminophen (Percocet 5-325 Mg) 1 tab Q3H PRN PO PAIN SCALE 1 TO 5; Start 07/01/16 at 20:00; Stop 07/06/16 at 11:13; Status DC Potassium Chloride (KCl) 20 meq ONCE ONCE PO Last administered on 07/02/16at 14 :10; Start 07/02/16 at 13:15; Stop 07/02/16 at 13:16; Status DC Potassium Chloride (KCl) 30 meq ONCE ONCE PO Last administered on 07/04/16at 19 :08; Start 07/04/16 at 18:15; Stop 07/04/16 at 19:00; Status DC Potassium Chloride (KCl) 30 meq ONCE ONCE PO Last administered on 07/06/16at 09 :53; Start 07/06/16 at 08:15; Stop 07/06/16 at 08:18; Status DC Clotrimazole 1 applic 1 applic Q8HR TOPICAL Last administered on 07/11/16at 06: 00; Start 07/06/16 at 10:00; Stop 07/11/16 at 10:43; Status DC Magnesium Sulfate/ Dextrose (Magnesium Sulfate 1 Gm Premix) 100 ml @ 100 mls/ hr Q1H IV Last administered on 07/06/16at 11:15; Start 07/06/16 at 10:00; Stop 07/06/16 at 11:59; Status DC Acetaminophen/ Hydrocodone Bitart (Davilla 5-325 Mg) 1 tab Q4H PRN PO PAIN SCALE 1 TO 4 Last administered on 07/14/16at 19:24; Start 07/06/16 at 11:15; Stop 07/16/16 at 11:04; Status DC Acetaminophen/ Hydrocodone Bitart (Davilla 5-325 Mg) 2 tab Q4H PRN PO PAIN SCALE 5 TO 10 Last administered on 07/16/16at 06:04; Start 07/06/16 at 11:15; Stop 07/16/16 at 11:04; Status DC Sertraline HCl (Zoloft) 100 mg DAILY PO Last administered on 07/15/16at 08:55; Start 07/08/16 at 09:00; Stop 07/16/16 at 11:03; Status DC Quetiapine Fumarate (SEROquel) 25 mg DAILY PO Last administered on 07/29/16at 09 :47; Start 07/08/16 at 21:00; Stop 07/29/16 at 13:49; Status DC Potassium Chloride 40 meq 40 meq ONCE ONCE PO Last administered on 07/08/16at 16:00; Start 07/08/16 at 15:00; Stop 07/08/16 at 15:04; Status DC Magnesium Sulfate/ Dextrose 100 ml @ 100 mls/hr Q1H IV Last administered on at 16:15; Start 07/08/16 at 15:15; Stop 07/08/16 at 17:14; Status DC Vancomycin HCl 1000 mg/Sodium Chloride 250 ml @ 250 mls/hr Q24H IV Last administered on 07/12/16at 10:34; Start 07/09/16 at 11:00; Stop 07/12/16 at 15:39 ; Status DC Aztreonam/Sodium Chloride (Azactam Inj/NS Inj) 100 ml @ 200 mls/hr Q8H IV Last administered on 07/19/16at 08:36; Start 07/09/16 at 10:00; Stop 07/19/16 at 13:35; Status DC Potassium Chloride (KCl) 30 meq ONCE ONCE PO Last administered on 07/09/16at 10 :15; Start 07/09/16 at 10:15; Stop 07/09/16 at 10:19; Status DC Pantoprazole Sodium (Protonix) 40 mg BID PO Last administered on 10/08/16at 10: 12; Start 07/09/16 at 21:00; Stop 10/08/16 at 20:01; Status DC Ondansetron HCl (Zofran Inj) 4 mg Q6HR PRN IV PUSH NAUSEA OR VOMITING Last administered on 08/14/16at 12:44; Start 07/09/16 at 16:45; Stop 08/18/16 at 11: 29; Status DC Al Hydrox/Mg Hydrox/Simethicone (Mag-Al Plus Susp Liq) 30 ml Q6H PRN PO HEARTBURN Last administered on 09/28/16at 21:39; Start 07/09/16 at 16:45 Acyclovir (Zovirax 5% Cream) 1 applic 5 TIMES A DAY TOPICAL Last administered on 07/16/16at 10:30; Start 07/10/16 at 18:00; Stop 07/16/16 at 16:50; Status DC Multi-Ingredient Mouthwash/Gargle (Magic Mouthwash Adult Liq) 10 ml QID SWISH- SWAL Last administered on 08/18/16at 09:12; Start 07/10/16 at 19:00; Stop at 11:29; Status DC Acyclovir (Zovirax) 400 mg Q8HR PO Last administered on 07/17/16at 15:29; Start 07/10/16 at 22:00; Stop 07/17/16 at 21:59; Status DC Acetaminophen (Tylenol) 650 mg Q4H PRN PO T>101, SARMIENTO Last administered on at 21:48; Start 07/11/16 at 05:45 Clotrimazole (Mycelex) 10 mg 5 TIMES A DAY BUCCAL Last administered on at 09:23; Start 07/11/16 at 14:00; Stop 07/25/16 at 13:59; Status DC Nystatin 1 applic 1 applic Q12HR TOPICAL Last administered on 10/11/16at 22:58 ; Start 07/11/16 at 12:00 Pharmacy Profile Note (Vancomycin Consult Pharmacy) 0 ml @ 0 mls/hr UNSCH OTHER ; Start 07/11/16 at 10:15; Stop 08/16/16 at 23:00; Status DC Miscellaneous Information SPECIFIC LAB TO BE DRAWN:VANCO TROUGH DATE TO BE DR... ONCE ONCE XX Last administered on 07/12/16at 10:34; Start 07/12/16 at 10: 45; Stop 07/12/16 at 10:46; Status DC Vancomycin HCl/ Sodium Chloride (Vancomycin Inj/ NS 250 ml Inj) 250 ml @ 250 mls/hr Q18H IV Last administered on 07/25/16at 04:12; Start 07/13/16 at 05:00; Stop 07/25/16 at 11:17; Status DC Miscellaneous Information SPECIFIC LAB TO BE ANDREA... ONCE ONCE XX Last administered on 07/15/16at 10:45; Start 07/15/16 at 10:45; Stop 07/15/16 at 10:46 ; Status DC Potassium Chloride (KCl) 50 meq ONCE ONCE PO Last administered on 07/13/16at 13 :45; Start 07/13/16 at 13:45; Stop 07/13/16 at 13:46; Status DC Magnesium Oxide (Mag-Ox) 400 mg Q12HR PO Last administered on 10/08/16at 10:10 ; Start 07/13/16 at 13:45; Stop 10/08/16 at 20:01; Status DC Potassium Chloride (KCl) 50 meq ONCE ONCE PO Last administered on 07/14/16at 14 :01; Start 07/14/16 at 10:45; Stop 07/14/16 at 10:46; Status DC Clotrimazole (Lotrimin 1% Cream) 1 applic Q12HR TOPICAL Last administered on at 09:00; Start 07/14/16 at 11:00; Stop 07/23/16 at 14:44; Status DC Metronidazole (Flagyl) 500 mg Q8HR PO Last administered on 07/24/16at 05:13; Start 07/14/16 at 14:00; Stop 07/24/16 at 12:22; Status DC Collagenase 1 applic 1 applic DAILY TOP Last administered on 10/06/16at 08:19; Start 07/14/16 at 13:15; Stop 10/06/16 at 13:27; Status DC Multivitamins 10 ml/Folic Acid 1 mg/Amino Acid Electrolyte w/ Calc 1,010.2 ml @ 42 mls/hr Q24H IV-CENTRAL Last administered on 07/15/16at 17:41; Start at 18:08; Stop 07/15/16 at 19:59; Status DC Multivitamins 10 ml/Folic Acid 1 mg/Amino Acid Electrolyte w/ Calc 2,010.2 ml @ 60 mls/hr Q24H IV-CENTRAL Last administered on 08/17/16at 22:01; Start at 20:00; Stop 08/18/16 at 08:48; Status DC Fat Emulsion Intravenous (Liposyn Iii 20% Inj) 250 ml @ 31.25 mls/ hr SuWe@20 IV-CENTRAL Last administered on 10/04/16at 21:28; Start 07/16/16 at 20:00; Stop 10/06/16 at 09:22; Status DC Sertraline HCl (Zoloft) 150 mg DAILY PO Last administered on 10/08/16at 10:11; Start 07/17/16 at 09:00; Stop 10/08/16 at 20:01; Status DC Acetaminophen/ Hydrocodone Bitart (Davilla 7.5-325 Mg) 1 tab Q4H PRN PO PAIN SCALE 1-5 Last administered on 08/18/16at 05:16; Start 07/16/16 at 11:00; Stop 08/18/16 at 11:29; Status DC Acetaminophen/ Hydrocodone Bitart (Davilla 10-325 Mg) 1.5 tab Q4H PRN PO PAIN SCALE 6 TO 10 Last administered on 08/18/16at 10:26; Start 07/16/16 at 11:00; Stop 08/18/16 at 11:29; Status DC Naloxone HCl (Narcan Inj) 0.4 mg UNSCH PRN IV SEE LABEL COMMENTS; Start at 11:00; Stop 09/10/16 at 10:25; Status DC Clotrimazole (Lotrimin 1% Cream) 1 applic Q8HR TOPICAL Last administered on at 05:53; Start 07/16/16 at 17:00; Stop 08/08/16 at 15:04; Status DC Diphenhydramine HCl (Benadryl Liq) 12.5 mg Q6H PRN PO pruritus Last administered on 08/14/16at 21:17; Start 07/16/16 at 17:00; Stop 08/19/16 at 08: 32; Status DC Potassium Chloride 60 meq 60 meq ONCE ONCE PO Last administered on 07/18/16at 18:59; Start 07/18/16 at 18:45; Stop 07/18/16 at 18:46; Status DC Acyclovir Sodium/ Sodium Chloride (Zovirax Inj/NS Inj) 100 ml @ 100 mls/hr Q8H IV Last administered on 07/24/16at 09:27; Start 07/19/16 at 16:00; Stop at 12:01; Status DC Miscellaneous Information SPECIFIC LAB TO BE DRAWN:VANCOMYCIN TROUGH DATE TO... ONCE ONCE XX Last administered on 07/22/16at 04:45; Start 07/22/16 at 04:45; Stop 07/22/16 at 04:46; Status DC Metoclopramide HCl 5 mg 5 mg Q8H PRN IV PUSH refractory nausea; Start 07/23/16 at 12:30; Stop 08/19/16 at 08:32; Status DC Potassium Chloride (KCl 20 Meq Premix Inj) 100 ml @ 50 mls/hr Q2H IV Last administered on 07/24/16at 12:20; Start 07/24/16 at 09:00; Stop 07/24/16 at 13:03 ; Status DC Alprazolam (Xanax) 0.125 mg Q8HR PO Last administered on 07/26/16at 05:49; Start 07/24/16 at 14:00; Stop 07/26/16 at 10:50; Status DC Methadone HCl (Dolophine) 2.5 mg Q12HR PO Last administered on 07/26/16at 08:36 ; Start 07/24/16 at 21:00; Stop 07/26/16 at 10:50; Status DC Lidocaine HCl 50 ml 50 ml STK-MED ONCE .ROUTE Last administered on 07/24/16at 16 :44; Start 07/24/16 at 16:44; Stop 07/24/16 at 16:45; Status DC Potassium Chloride (KCl 20 Meq Premix Inj) 100 ml @ 50 mls/hr Q2H IV Last administered on 07/25/16at 08:00; Start 07/25/16 at 06:00; Stop 07/25/16 at 09:59 ; Status DC Potassium Bicarb/ Potassium Chloride 50 meq 50 meq ONCE ONCE PO Last administered on 07/25/16at 06:33; Start 07/25/16 at 06:00; Stop 07/25/16 at 06:01 ; Status DC Vancomycin HCl/ Sodium Chloride (Vancomycin Inj/ NS 250 ml Inj) 275 ml @ 250 mls/hr Q18H IV Last administered on 08/16/16at 16:56; Start 07/25/16 at 23:00; Stop 08/16/16 at 23:00; Status DC Miscellaneous Information SPECIFIC LAB TO BE DRAWN:VANCOMYCIN TROUGH DATE TO... ONCE ONCE XX Last administered on 07/28/16at 04:45; Start 07/28/16 at 04:45; Stop 07/28/16 at 04:46; Status DC Erythromycin (Ilotycin 0.5% Opth Oint) 1 applic Q8HR LEFT EYE Last administered on 08/24/16at 12:51; Start 07/25/16 at 22:00; Stop 08/28/16 at 10:28 ; Status DC Prednisolone Acetate (Pred Forte 1% Opth Susp) 1 drop BID LEFT EYE Last administered on 08/24/16at 09:00; Start 07/25/16 at 21:00; Stop 08/28/16 at 10:28 ; Status DC Valacyclovir HCl (Valtrex) 1,000 mg Q8HR PO Last administered on 08/04/16at 13: 06; Start 07/25/16 at 15:00; Stop 08/04/16 at 14:59; Status DC Alprazolam (Xanax) 0.25 mg Q4H PRN PO anxiety; Start 07/26/16 at 14:00; Stop 08/12/16 at 11:19; Status DC Alprazolam (Xanax) 0.25 mg Q8HR PO Last administered on 10/12/16at 06:23; Start 07/26/16 at 14:00 Methadone HCl (Dolophine) 5 mg Q12HR PO Last administered on 08/10/16at 09:56; Start 07/26/16 at 21:00; Stop 08/10/16 at 12:43; Status DC Vancomycin HCl 500 mg 500 mg QID PO Last administered on 08/02/16at 09:14; Start 07/26/16 at 18:00; Stop 08/02/16 at 12:44; Status DC Fluconazole/ Sodium Chloride (Diflucan 400 Mg Premix Bag) 200 ml @ 100 mls/hr Q24H IV Last administered on 08/03/16at 17:59; Start 07/26/16 at 14:00; Stop 08/04/16 at 09:55; Status DC Miscellaneous Information SPECIFIC LAB TO BE ANDREA... ONCE ONCE XX Last administered on 07/30/16at 10:45; Start 07/30/16 at 10:45; Stop 07/30/16 at 10:46 ; Status DC Potassium Chloride (KCl) 20 meq ONCE ONCE PO Last administered on 07/29/16at 13 :59; Start 07/29/16 at 13:45; Stop 07/29/16 at 13:46; Status DC Mirtazapine (Remeron Soltab Odt) 15 mg HS PO Last administered on 10/11/16at 22 :03; Start 07/29/16 at 21:00 Miscellaneous Medication 1 1 UNSCH X1 PRN XX PHARMACY DOCUMENTATION; Start 08/06 at 13:00; Stop 07/31/16 at 18:00; Status DC Ertapenem/Sodium Chloride (INVanz INJ/NS Inj) 100 ml @ 200 mls/hr Q24H IV Last administered on 08/13/16at 14:12; Start 07/31/16 at 14:00; Stop 08/13/16 at 23:00; Status DC Calamine (Calamine Lotion) 1 applic Q8H PRN TOPICAL ITCHING Last administered on 08/06/16at 11:22; Start 07/31/16 at 13:30; Stop 08/19/16 at 08:32; Status DC Zinc Sulfate (Zinc Sulfate) 220 mg DAILY PO Last administered on 08/18/16at 15: 14; Start 08/04/16 at 11:00; Stop 08/19/16 at 08:32; Status DC Megestrol Acetate (Megace Liq) 800 mg DAILY PO Last administered on 10/08/16at 10:09; Start 08/04/16 at 12:00; Stop 10/08/16 at 20:01; Status DC Miscellaneous Information SPECIFIC LAB TO BE ANDREA... ONCE ONCE XX Last administered on 08/06/16at 05:27; Start 08/06/16 at 04:45; Stop 08/06/16 at 04 :46; Status DC Methadone HCl (Dolophine) 2.5 mg Q12HR PO Last administered on 08/13/16at 08:39 ; Start 08/10/16 at 21:00; Stop 08/13/16 at 14:27; Status DC Loperamide HCl (Imodium Liq) 4 mg ONCE ONCE PO Last administered on at 14:23; Start 08/13/16 at 14:00; Stop 08/13/16 at 14:01; Status DC Hydrochlorothiazide (Microzide) 12.5 mg DAILY PO ; Start 08/13/16 at 14:00; Stop 08/13/16 at 14:13; Status DC Mupirocin (Bactroban 2% Oint) 1 applic Q12HR TOPICAL Last administered on 10/06at 08:19; Start 08/13/16 at 21:00; Stop 10/06/16 at 13:27; Status DC Zinc Oxide (Desitin 40% Oint) 1 applic UNSCH PRN TOPICAL DIAPER RASH Last administered on 08/28/16at 20:59; Start 08/13/16 at 14:15 Lisinopril (Prinivil) 20 mg DAILY PO Last administered on 08/16/16at 09:53; Start 08/13/16 at 15:00; Stop 08/16/16 at 14:44; Status DC Methadone HCl (Dolophine) 2.5 mg DAILY PO Last administered on 08/19/16at 08:26 ; Start 08/14/16 at 09:00; Stop 08/20/16 at 08:17; Status DC Potassium Chloride (KCl) 30 meq ONCE ONCE PO Last administered on 08/14/16at 12:44; Start 08/14/16 at 12:45; Stop 08/14/16 at 12:46; Status DC Cholestyramine Resin 4 gm 4 gm Q12H PO ; Start 08/14/16 at 23:00; Stop at 08:32; Status DC Sodium Chloride (NS 500 ml Inj) 500 ml @ 500 mls/hr BOLUS ONCE IV Last administered on 08/15/16at 15:15; Start 08/15/16 at 15:15; Stop 08/15/16 at 16 :14; Status DC Lisinopril 40 mg 40 mg DAILY PO Last administered on 10/07/16at 10:37; Start 08/17/16 at 09:00; Stop 10/08/16 at 20:01; Status DC Multivitamins/ Folic Acid/Amino Acid Electrolyte w/ Calc (Mvi-12 Inj/ Folvite Inj/ Clinimix E 03/15) 2,010.2 ml @ 60 mls/hr Q24H IV-CENTRAL Last administered on 08/18/16at 15:19; Start 08/18/16 at 10:00; Stop 08/19/16 at 11 :49; Status DC Acetaminophen/ Hydrocodone Bitart (Davilla 5-325 Mg) 1 tab Q6H PRN PO PAIN SCALE 6 TO 10 Last administered on 08/20/16at 20:26; Start 08/18/16 at 11:30; Stop 08/21/16 at 08:14; Status DC Loperamide HCl 2 mg 2 mg UNSCH PRN PO DIARRHEA Last administered on 09/07/16at 20:24; Start 08/19/16 at 08:30; Stop 09/08/16 at 14:24; Status DC Multivitamins/ Folic Acid/Amino Acid Electrolyte w/ Calc (Mvi-12 Inj/ Folvite Inj/ Clinimix E 03/15) 2,010.2 ml @ 60 mls/hr Q24H IV-CENTRAL Last administered on 10/05/16at 20:29; Start 08/19/16 at 20:00; Stop 10/06/16 at 09 :22; Status DC Tramadol HCl (Ultram) 50 mg Q6H PRN PO PAIN SCALE 6 TO 10 Last administered on 08/30/16at 23:20; Start 08/21/16 at 08:15; Stop 08/31/16 at 08:52; Status DC Ibuprofen (Motrin) 400 mg Q8H PRN PO PAIN SCALE 1 TO 5 Last administered on at 02:22; Start 08/21/16 at 08:45; Stop 10/08/16 at 20:01; Status DC Diphenoxylate HCl/ Atropine (Lomotil Tab) 2 tab BID PRN PO diarrhea Last administered on 10/08/16at 10:12; Start 08/24/16 at 19:00 Tramadol HCl (Ultram) 50 mg Q8HR PRN PO PAIN SCALE 6 TO 10 Last administered on 10/07/16at 22:03; Start 08/31/16 at 14:00; Stop 10/08/16 at 20:01; Status DC Diltiazem HCl (Cardizem Cd) 180 mg DAILY PO Last administered on 09/15/16at 10: 30; Start 09/01/16 at 09:00; Stop 09/15/16 at 11:11; Status DC Zinc Sulfate (Zinc Sulfate) 220 mg DAILY PO Last administered on 10/11/16at 08: 14; Start 09/04/16 at 09:00 Clotrimazole 1 applic 1 applic Q12HR TOPICAL Last administered on 09/20/16at 08 :29; Start 09/06/16 at 21:00; Stop 09/20/16 at 21:00; Status DC Sodium Chloride 1,000 ml @ 500 mls/hr Q2H IV ; Start 09/07/16 at 19:00; Stop 09/07/16 at 19:19; Status DC Sodium Chloride (NS 1000 ml Inj) 1,000 ml @ 500 mls/hr BOLUS ONCE IV Last administered on 09/07/16at 19:15; Start 09/07/16 at 19:15; Stop 09/07/16 at 21 :14; Status DC Loperamide HCl (Imodium) 2 mg TID PRN PO DIARRHEA Last administered on at 10:10; Start 09/08/16 at 18:00; Stop 10/08/16 at 20:01; Status DC Morphine Sulfate (Morphine Inj) 4 mg Q4H PRN IV breakthrough pain; Start 09/10 at 10:00; Stop 09/10/16 at 12:53; Status DC Naloxone HCl 0.4 mg 0.4 mg UNSCH PRN IV SEE LABEL COMMENTS; Start 09/10/16 at 10:00; Stop 10/08/16 at 15:03; Status DC Ceftazidime/ Avibactam/Sodium Chloride (Avycaz Inj/NS Inj) 50 ml @ 25 mls/hr Q8H IV ; Start 09/10/16 at 10:15; Stop 09/10/16 at 11:04; Status DC Ertapenem 1000 mg 1,000 mg DAILY IM ; Start 09/10/16 at 11:00; Status UNV Ceftazidime/ Sodium Chloride (Fortaz Inj/NS Inj) 100 ml @ 200 mls/hr Q8H IV Last administered on 09/11/16at 04:16; Start 09/10/16 at 13:00; Stop 09/11/16 at 07:24; Status DC Hydromorphone HCl 0.5 mg 0.5 mg Q4H PRN IV BREAKTHROUGH PAIN Last administered on 09/12/16at 08:24; Start 09/10/16 at 13:00; Stop 09/12/16 at 09:05; Status DC Sodium Chloride (NS 1000 ml Inj) 1,000 ml @ 100 mls/hr Q10H IV Last administered on 09/13/16at 05:46; Start 09/11/16 at 13:00; Stop 09/13/16 at 07 :57; Status DC Duloxetine HCl (Cymbalta Dr) 30 mg DAILY PO Last administered on 10/11/16at 08: 14; Start 09/14/16 at 09:00 Diltiazem HCl (Cardizem Cd) 240 mg DAILY PO Last administered on 10/08/16at 10: 10; Start 09/16/16 at 09:00; Status Hold Gabapentin (Neurontin) 100 mg TID PO Last administered on 10/06/16at 08:17; Start 09/15/16 at 18:00; Stop 10/06/16 at 11:47; Status DC Gabapentin (Neurontin) 300 mg TID PO Last administered on 10/09/16at 13:39; Start 10/06/16 at 13:00; Status Hold Alprazolam 0.25 mg 0.25 mg ONCE ONCE PO Last administered on 10/07/16at 22:41 ; Start 10/07/16 at 22:30; Stop 10/07/16 at 22:35; Status DC Sodium Chloride 1,000 ml @ 2,000 mls/hr Q30M IV ; Start 10/08/16 at 10:00; Stop 10/08/16 at 10:06; Status DC Sodium Chloride 1,000 ml @ 1,000 mls/hr Q60M IV Last administered on at 11:55; Start 10/08/16 at 10:10; Stop 10/08/16 at 12:09; Status DC Fat Emulsion Intravenous 250 ml @ 31.25 mls/ hr SuWe@20 IV-CENTRAL Last administered on 10/11/16at 20:04; Start 10/08/16 at 20:00 Multivitamins/ Folic Acid/Amino Acids/ Electrolytes/ Dextrose (Mvi-12 Inj/ Folvite Inj/ Clinimix E 03/15) 2,010.2 ml @ 60 mls/hr Q24H IV-CENTRAL Last administered on 10/11/16at 20:04; Start 10/08/16 at 20:00 Metoclopramide HCl (Reglan Inj) 5 mg Q8H PRN IV PUSH NAUSEA/VOMITING; Start at 10:45; Stop 10/08/16 at 20:01; Status DC Ondansetron HCl (Zofran Inj) 4 mg Q6HR PRN IV PUSH NAUSEA/VOMITING Last administered on 10/08/16at 12:07; Start 10/08/16 at 12:00 Morphine Sulfate 4 mg 4 mg ONCE ONCE IV PUSH ; Start 10/08/16 at 12:00; Stop 10/08/16 at 12:00; Status DC Vancomycin HCl 1250 mg/Sodium Chloride 262.5 ml @ 262.5 mls/ hr ONCE ONCE IV Last administered on 10/08/16at 12:58; Start 10/08/16 at 13:00; Stop 10/08/16 at 13:59; Status DC Piperacillin Sod/ Tazobactam Sod 100 ml @ 200 mls/hr Q8H IV ; Start 10/08/16 at 11:15; Stop 10/08/16 at 11:33; Status DC Norepinephrine Bitartrate (Levophed-Dextrose Drip) 250 ml @ 0 mls/hr TITRATE IV ; Start 10/08/16 at 12:00; Stop 10/11/16 at 20:38; Status DC Terbutaline Sulfate 1 mg 1 mg UNSCH PRN SQ For Extravasation; Start 10/08/16 at 11:15; Stop 10/08/16 at 20:01; Status DC Sodium Chloride 1,000 ml @ 300 mls/hr Q3H20M IV Last administered on at 12:57; Start 10/08/16 at 12:00; Stop 10/08/16 at 15:00; Status DC Cefepime HCl/ Sodium Chloride (Maxipime Inj/NS Inj) 100 ml @ 200 mls/hr Q24H IV Last administered on 10/08/16at 11:55; Start 10/08/16 at 12:00; Stop 10/09 at 12:43; Status DC Iohexol (Omnipaque 350 Inj) 85 ml STK-MED ONCE IV Last administered on at 11:28; Start 10/08/16 at 11:28; Stop 10/08/16 at 20:01; Status DC Hydromorphone HCl 0.5 mg 0.5 mg Q4H PRN IV PUSH PAIN SCALE 5 TO 10 Last administered on 10/08/16at 12:07; Start 10/08/16 at 12:00; Stop 10/08/16 at 20 :01; Status DC Magnesium Sulfate/ Dextrose 100 ml @ 100 mls/hr Q1H IV ; Start 10/08/16 at 12: 00; Stop 10/08/16 at 13:59; Status DC Sodium Chloride (NS 1000 ml Inj) 1,000 ml @ 40 mls/hr Q24H IV Last administered on 10/10/16at 10:09; Start 10/08/16 at 15:00 IV Flush (NS Flush) 2 ml UNSCH PRN IVF FLUSH AFTER USING IV ACCESS; Start at 14:45 IV Flush (NS Flush) 2 ml BID IVF Last administered on 10/11/16at 22:58; Start 10/08/16 at 21:00 Miscellaneous Information (Post-op Orders (for Pharmacy)) STAT ONCE XX ; Start 10/08/16 at 14:45; Stop 10/08/16 at 20:00; Status DC Naloxone HCl (Narcan Inj) 0.4 mg UNSCH PRN IV SEE LABEL COMMENTS; Start at 14:45 Enoxaparin Sodium 40 mg 40 mg Q24H SQ Last administered on 10/11/16at 17:40; Start 10/09/16 at 18:41 Prothrombin Complex Concent (Human)/Syringe / Bag (Kcentra Inj/ Syringe/Bag) 0 ml @ 8 mls/min ONCE ONCE IV Last administered on 10/08/16at 15:00; Start at 15:00; Stop 10/08/16 at 15:01; Status DC Bupivacaine HCl/ Epinephrine Bitart (Sensorcaine-Epinephrine Pf 0.5% Inj) 30 ml STK-MED ONCE .ROUTE ; Start 10/08/16 at 15:00; Stop 10/08/16 at 15:01; Status DC Albumin Human (Albumin 5% Inj) 12.5 gm STK-MED ONCE IV ; Start 10/08/16 at 15: 09; Stop 10/08/16 at 15:10; Status DC Ketamine HCl (Ketalar Inj) 500 mg STK-MED ONCE .ROUTE ; Start 10/08/16 at 15:12 ; Stop 10/08/16 at 15:13; Status DC Midazolam HCl (Versed Inj) 2 mg STK-MED ONCE .ROUTE ; Start 10/08/16 at 16:36; Stop 10/08/16 at 20:01; Status DC Midazolam HCl 2 mg 2 mg STK-MED ONCE .ROUTE ; Start 10/08/16 at 16:37; Stop at 20:01; Status DC Magnesium Sulfate/ Dextrose 100 ml @ As Directed STK-MED ONCE .ROUTE ; Start 10/08/16 at 17:31; Stop 10/08/16 at 17:32; Status DC Propofol 100 ml @ As Directed STK-MED ONCE .ROUTE ; Start 10/08/16 at 19:51; Stop 10/08/16 at 19:52; Status DC Norepinephrine Bitartrate (Levophed-Dextrose Drip) 250 ml @ 0 mls/hr TITRATE IV ; Start 10/08/16 at 20:15; Stop 10/08/16 at 20:25; Status DC Terbutaline Sulfate 1 mg 1 mg UNSCH PRN SQ For Extravasation; Start 10/08/16 at 20:15; Stop 10/08/16 at 20:25; Status DC Propofol 100 ml @ 0 mls/hr TITRATE IV Last administered on 10/10/16at 02:08; Start 10/08/16 at 20:15; Stop 10/11/16 at 20:38; Status DC Vancomycin HCl/ Sodium Chloride (Vancomycin Inj/ NS 250 ml Inj) 250 ml @ 250 mls/hr ONCE ONCE IV Last administered on 10/08/16at 22:07; Start 10/08/16 at 21:00; Stop 10/08/16 at 21:59; Status DC Midazolam HCl (Versed Inj) 2 mg STK-MED ONCE .ROUTE ; Start 10/08/16 at 20:15; Stop 10/08/16 at 20:16; Status DC Fentanyl Citrate 250 mcg 250 mcg STK-MED ONCE .ROUTE ; Start 10/08/16 at 20:16 ; Stop 10/08/16 at 20:17; Status DC Pharmacy Profile Note ml @ 0 mls/hr UNSCH OTHER ; Start 10/08/16 at 20:30 Vancomycin HCl 750 mg/Sodium Chloride 257.5 ml @ 250 mls/hr ONCE ONCE IV ; Start 10/08/16 at 22:00; Stop 10/08/16 at 23:01; Status DC Fluconazole/ Sodium Chloride (Diflucan 200 Mg Premix Bag) 100 ml @ 100 mls/hr Q24H IV Last administered on 10/11/16at 22:04; Start 10/08/16 at 22:00; Stop 10/11/16 at 22:39; Status DC Sodium Bicarbonate 200 meq 200 meq NOW ONCE IV Last administered on at 21:00; Start 10/08/16 at 21:00; Stop 10/08/16 at 21:01; Status DC Metronidazole (Flagyl 500 Mg Inj) 100 ml @ 100 mls/hr Q8H IV Last administered on 10/12/16at 06:24; Start 10/08/16 at 22:00 Pantoprazole Sodium 40 mg 40 mg Q24H IV PUSH Last administered on 10/11/16at 22 :03; Start 10/08/16 at 22:00 Calcium Chloride 2 gm/Sodium Chloride 120 ml @ 120 mls/hr ONCE ONCE IV Last administered on 10/08/16at 23:28; Start 10/08/16 at 23:00; Stop 10/08/16 at 23 :59; Status DC Fentanyl Citrate (fentaNYL DRIP) 250 ml @ 0 mls/hr TITRATE IV Last administered on 10/10/16at 09:50; Start 10/09/16 at 03:15; Stop 10/11/16 at 10 :01; Status DC Dextrose (D50w (Vial) Inj) 25 ml UNSCH PRN IV PUSH HYPOGLYCEMIA-SEE COMMENTS; Start 10/09/16 at 03:15 Glucagon (Glucagon Inj) 1 mg UNSCH PRN OTHER HYPOGLYCEMIA-SEE COMMENTS; Start 10/09/16 at 03:15 Insulin Aspart (NovoLOG SUPPLEMENTAL SCALE) 1 Q6H SQ Last administered on 10/12at 03:55; Start 10/09/16 at 03:15 Chlorhexidine Gluconate (Peridex 0.12% Liq) 15 ml BID@08,20 MT Last administered on 10/11/16at 22:59; Start 10/09/16 at 08:00 Albuterol/ Ipratropium 1 ampule 1 ampule Q6HR NEB NEB Last administered on at 03:06; Start 10/09/16 at 10:00 Vancomycin HCl/ Sodium Chloride (Vancomycin Inj/ NS 250 ml Inj) 250 ml @ 250 mls/hr Q24H IV Last administered on 10/11/16at 22:59; Start 10/09/16 at 22:00 Miscellaneous Information SPECIFIC LAB TO BE ANDREA... ONCE ONCE XX Last administered on 10/11/16at 22:59; Start 10/11/16 at 21:45; Stop 10/11/16 at 21 :46; Status DC Miscellaneous Medication (ASP Crit: Doc ESBL, MDR A baumannii or P aer) 1 UNSCH X1 PRN XX PHARMACY DOCUMENTATION; Start 10/09/16 at 12:45; Stop 10/10/16 at 12:44; Status DC Miscellaneous Medication 1 1 UNSCH X1 PRN XX PHARMACY DOCUMENTATION; Start at 12:45; Stop 10/10/16 at 12:44; Status DC Meropenem/Sodium Chloride (Merrem Inj/NS Inj) 100 ml @ 200 mls/hr Q12H IV Last administered on 10/10/16at 02:08; Start 10/09/16 at 14:00; Stop 10/10/16 at 14:20; Status DC Enoxaparin Sodium (Lovenox Inj) 30 mg Q24H SQ Last administered on 10/09/16at 14:45; Start 10/09/16 at 15:00; Stop 10/10/16 at 12:06; Status DC Propofol (Diprivan 200 Mg/20 ml Inj) 200 mg STK-MED ONCE IV ; Start 10/08/16 at 12:00; Stop 10/09/16 at 13:21; Status DC Phenylephrine HCl 1000 mcg 1,000 mcg STK-MED ONCE IV ; Start 10/08/16 at 12:00 ; Stop 10/09/16 at 13:21; Status DC Parenteral Electrolytes 4,000 ml @ As Directed STK-MED ONCE IV ; Start at 12:00; Stop 10/09/16 at 13:21; Status DC Lactated Ringer's (Lr 1000 ml Inj) 1,000 ml @ 999 mls/hr BOLUS ONCE IV Last administered on 10/10/16at 05:48; Start 10/10/16 at 05:45; Stop 10/10/16 at 06 :45; Status DC Metoprolol Tartrate (Lopressor Inj) 5 mg STK-MED ONCE .ROUTE ; Start 10/10/16 at 08:26; Stop 10/10/16 at 08:27; Status DC Adenosine (Adenocard Inj) 6 mg STK-MED ONCE .ROUTE ; Start 10/10/16 at 08:29; Stop 10/10/16 at 08:30; Status DC Metoprolol Tartrate (Lopressor Inj) 5 mg STK-MED ONCE .ROUTE ; Start 10/10/16 at 08:29; Stop 10/10/16 at 08:30; Status DC Albumin Human (Albumin 5% Inj) 12.5 gm NOW ONCE IV ; Start 10/10/16 at 09:00; Stop 10/10/16 at 09:01; Status Cancel Albumin Human 12.5 gm 12.5 gm ONCE STAT IV Last administered on 10/10/16at 09: 39; Start 10/10/16 at 08:57; Stop 10/10/16 at 08:58; Status DC Sodium Chloride (NS 1000 ml Inj) 1,000 ml @ 999 mls/hr BOLUS ONCE IV Last administered on 10/10/16at 09:30; Start 10/10/16 at 10:00; Stop 10/10/16 at 11 :00; Status DC Adenosine (Adenocard Inj) 6 mg ONCE ONCE IV PUSH ; Start 10/10/16 at 09:15; Stop 10/10/16 at 09:16; Status UNV Metoprolol Tartrate (Lopressor Inj) 5 mg ONCE ONCE IV PUSH Last administered on 10/10/16at 10:23; Start 10/10/16 at 10:00; Stop 10/10/16 at 10:01; Status DC Metoprolol Tartrate (Lopressor Inj) 5 mg ONCE ONCE IV PUSH Last administered on 10/10/16at 10:18; Start 10/10/16 at 08:30; Stop 10/10/16 at 09:49; Status DC Adenosine (Adenocard Inj) 6 mg ONCE ONCE IV PUSH Last administered on at 10:14; Start 10/10/16 at 08:30; Stop 10/10/16 at 09:49; Status DC Furosemide 20 mg 20 mg NOW ONCE IV PUSH Last administered on 10/10/16at 13:47 ; Start 10/10/16 at 12:00; Stop 10/10/16 at 12:01; Status DC Magnesium Sulfate/ Dextrose (Magnesium Sulfate 1 Gm Premix) 100 ml @ 100 mls/ hr Q1H IV Last administered on 10/10/16at 15:46; Start 10/10/16 at 12:00; Stop 10/10/16 at 13:59; Status DC Miscellaneous Information D/C ICU ELECTROLYTE ORDERS... UNSCH PRN XX SEE DOSE INSTRUCTIONS; Start 10/10/16 at 12:00 Miscellaneous Information ICU - CALL ORDERING PHYSIC... UNSCH PRN XX SEE DOSE INSTRUCTIONS; Start 10/10/16 at 12:00 Potassium Chloride (KCl 40 Meq Premix Inj) 100 ml @ 25 mls/hr UNSCH PRN IV ELECTROLYTE REPLACEMENT Last administered on 10/10/16at 15:46; Start 10/10/16 at 12:00 Potassium Chloride 40 meq 40 meq UNSCH PRN PO ELECTROLYTE REPLACEMENT Last administered on 10/11/16at 23:09; Start 10/10/16 at 12:00 Potassium Chloride 100 ml @ 50 mls/hr UNSCH PRN IV ELECTROLYTE REPLACEMENT Last administered on 10/11/16at 03:44; Start 10/10/16 at 12:00 Magnesium Sulfate 4 gm/Sodium Chloride 108 ml @ 54 mls/hr UNSCH PRN IV ELECTROLYTE REPLACEMENT; Start 10/10/16 at 12:00 Magnesium Sulfate/ Sodium Chloride (Magnesium Sulfate Inj/NS Inj) 104 ml @ 52 mls/hr UNSCH PRN IV ELECTROLYTE REPLACEMENT; Start 10/10/16 at 12:00 Magnesium Oxide 800 mg 800 mg UNSCH PRN PO ELECTROLYTE REPLACEMENT; Start at 12:00 Sodium Phosphate/ Sodium Chloride (Sodium Phosphate Inj/NS 250 ml Inj) 260 ml @ 43.333 mls/ hr UNSCH PRN IV ELECTROLYTE REPLACEMENT; Start 10/10/16 at 12:00 Potassium Phosphate 2000 mg 2,000 mg UNSCH PRN PO/TUBE ELECTROLYTE REPLACEMENT ; Start 10/10/16 at 12:00 Potassium Phosphate/Sodium Chloride (Potassium Phosphate Inj/NS 250 ml Inj) 260 ml @ 43.333 mls/ hr UNSCH PRN IV ELECTROLYTE REPLACEMENT Last administered on 10/11/16at 08:13; Start 10/10/16 at 12:00 Metoprolol Tartrate (Lopressor Inj) 5 mg Q6H IV PUSH Last administered on 10/12at 06:25; Start 10/10/16 at 13:00 Ondansetron HCl 4 mg 4 mg STK-MED ONCE IV PUSH ; Start 10/08/16 at 13:14; Stop 10/10/16 at 13:14; Status DC Meropenem/Sodium Chloride (Merrem Inj/NS Inj) 100 ml @ 200 mls/hr Q8H IV Last administered on 10/11/16at 13:11; Start 10/10/16 at 22:00; Stop 10/11/16 at 22 :40; Status DC Hydromorphone HCl (Dilaudid Pf Inj) 0.5 mg NOW ONCE IV Last administered on at 10:11; Start 10/11/16 at 10:00; Stop 10/11/16 at 10:01; Status DC Hydromorphone HCl (Dilaudid Pf Inj) 0.5 mg Q3H PRN IV PAIN Last administered on 10/12/16at 03:55; Start 10/11/16 at 12:00 Lorazepam (Ativan Inj) 0.5 mg Q4H PRN IV ANXIETY Last administered on at 20:05; Start 10/11/16 at 19:00 Metoprolol Tartrate (Lopressor Inj) 2.5 mg ONCE ONCE IV PUSH Last administered on 10/11/16at 22:58; Start 10/11/16 at 20:45; Stop 10/11/16 at 20 :46; Status DC Etomidate (Amidate Inj) 20 mg STK-MED ONCE .ROUTE ; Start 10/11/16 at 21:21; Stop 10/11/16 at 21:22; Status DC Rocuronium Gordon (Zemuron Inj) 50 mg STK-MED ONCE .ROUTE ; Start 10/11/16 at 21:21; Stop 10/11/16 at 21:22; Status DC Furosemide 40 mg 40 mg ONCE ONCE IV PUSH Last administered on 10/11/16at 21:38 ; Start 10/11/16 at 21:30; Stop 10/11/16 at 21:35; Status DC Ceftriaxone Sodium 2000 mg/ Sodium Chloride 100 ml @ 200 mls/hr Q24H IV Last administered on 10/12/16at 00:36; Start 10/11/16 at 23:00 Potassium Chloride/Sodium Chloride (KCl Inj/NS Inj) 115 ml @ 38.333 mls/ hr Q3H IV-CENTRAL Last administered on 10/12/16at 03:37; Start 10/12/16 at 00:00 ; Stop 10/12/16 at 05:59; Status DC Enalaprilat (Vasotec Inj) 1.25 mg Q6H IV PUSH Last administered on 10/12/16at 07:07; Start 10/12/16 at 07:00 Furosemide (Lasix Inj) 20 mg BID@09,18 IV PUSH ; Start 10/12/16 at 09:00 Date of Insertion: Jun 20, 2016 Side: Left A/P Assessment and Plan Acute respiratory failure - extubated 10/10 - DuoNeb every 6 hours. - Incentive spirometry Q1H while awake -continue lasix Ischemic colitis with perforation of transverse colon, - status post resection 5-6 inches of transverse colon with creation of ileostomy and colostomy (mucous fistula). - NPO. - NG tube in right nare to low intermittent wall suction. - VERNA in place, monitor output. - Abdominal fascia is closed. - Wound VAC is in place. - Continue TPN - further per general surgery COPD - no exacerbation - no indication for steroids - continue Aerosols Depression - resumed home meds when OK with surgery to p.o. Peripheral neuropathy - status post left BKA - supportive care - management per vascular surgery Shock secondary to acute blood loss and sepsis - resolved - continue gentle i.v. fluids hydration Grade 1 diastolic dysfunction - strict BP control GERD - PPI i.v. Acute kidney injury - pre-renal - Hamlin in place. - Monitor intake and output. - avoid nephrotoxins. - Good urine output - Electrolyte replacement per ICU protocol Septic shock - secondary to intrabdominal sepsis with mesenteric ischemia, bowel perforation and leak. - status post Exp lap, colectomy and colostomy - Continue Rocephin, Flagyl and Vanco - Follow-up blood culture 2 sets - Further ATB per ID Acute blood loss anemia - Bleeding noted at ileostomy/colostomy - resolved - Previously on Xarelto - continue to hold - Transfused 4 units PRBC 18 - H&H stable today Prophylaxis - Hold pharmacologic DVT prophylaxis secondary to bleeding. Protonix 40 mg IV daily for stress ulcer prophylaxis. patient is ill-looking. will monitor closely in ICU. low threshold for critical care reevaluation. Danny Thomas MD Oct 12, 2016 07:40
[2016-10-12 08:28] LABS: BANDS 12 % (0-6); EOSINOPHILS 4 % (0-4); MYELOCYTES 1 % (0-0); NEUTROPHIL # MANUAL DIFF 4.1 TH/MM3 (1.8-7.7); POLYS (SEG NEUTROPHILS) 40 % (16-70); WBC DIFF SAMPLE 100
[2016-10-12 08:30] LABS: PLATELET ESTIMATE SMEAR LOW (NORMAL); PLATELET MORPHOLOGY NORMAL (NORMAL); SCAN/DIFF FINAL DIFF MANUAL
[2016-10-12] MEDS: NYSTATIN 100,000 U/GM PWD 15 GM BTL TOPICAL SCH ×2 (09:00→20:19)
[2016-10-12] MEDS: LORazepam 2 MG/ML VIAL IV PRN (09:13)
[2016-10-12] MEDS: FERROUS SULFATE 325 MG (65 MG ELEMENTAL IRON) TAB PO SCH (09:14)
[2016-10-12] MEDS: FUROSEMIDE 20 MG/2 ML VIAL IV PUSH SCH ×2 (09:14→18:04)
[2016-10-12] MEDS: SODIUM CHLORIDE 0.9% FLUSH 5 ML FLUSH IVF SCH ×2 (09:14→20:19)
[2016-10-12] MEDS: CALCIUM/VITAMIN D 250 MG/125 U TAB PO SCH ×2 (09:14→20:25)
[2016-10-12] MEDS: MULTIVITAMIN TAB PO SCH (09:14)
[2016-10-12] MEDS: DULoxetine HCl DR 30 MG CAP PO SCH (09:14)
[2016-10-12] MEDS: ZINC SULFATE 220 MG CAP PO SCH (09:14)
[2016-10-12] MEDS: CALCITRIOL 0.25 MCG CAP PO SCH (09:15)
--- NOTE | 2016-10-12 13:42 | HHI.CCPN ---
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 She underwent at that time right colectomy, resection of a large amount of small bowel; this was followed by another surgery or two in the next month or two and the patient then recovered. 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 The patient was now in a rehab setting at [facility] doing very well for a year and then this morning suddenly developed hypotension, leukocytosis, sepsis and had to be immediately transferred to the main hospital for further care. Patient underwent exploratory laparotomy with resection of the segment of the large bowel containing the anastomosis to the small bowel and the fistula, end ileostomy and mucous fistula colostomy creation and removal of segments of ventral hernia mesh placed at some point many years in the past It should be noted that patient was on Xarelto and received PCC FFP and 4 units of PRBCs The massive metabolic acidosis has since corrected and so has the hypotension 24 Hour Review/Hospital Course 10/09/16 Status post exploratory laparotomy bowel resection and ileostomy and colostomy mucous fistula creation Patient is doing much better at this time Spend the night on the ventilator with the gradually correcting metabolic acidosis the hypovolemia and septic shock Gram-negative organisms in the blood stream consistent with the previous history of ESBL 10/10/16 For last 24 hours patient has been intubated and she has been successfully extubated this morning by the medical nutrition technician Patient is still volume overloaded and now mobilizing third space shows she will need diuresis to prevent intravascular overload at this point considering the last 48 hours patient has been massively third spacing Doing well at this time Spoken to her was very grateful for care 10/11/16 Patient doing very well awake and alert Abdomen is soft with few bowel sounds and wound VAC in midline is draining minimally after few days of increased drainage of serosanguineous fluid Ileostomy and colostomy appear to be intact and ileostomy is working already NG suction has decreased but in the face of several enterotomies I would continue NG suction for at least another few days and allow bowel to heal This lady is at high risk of fistula, bowel leak from the enterotomy sites and other problems associated with healing considering her low albumen and poor nutritional state Will restart patient on TPN Note I discussed the situation patient's then his been nice to me on the phone this time every day, as opposed to his behavior in the past where he was threatening and abusive Apparently nurses have described discussions with him lately S threatening and abusive and the refused to talk to him at this time 10/12/16 Patient had an episode of shortness of breath and panic attack last night with decreasing O2 saturation tachypnea and shallow rapid breathing Was given some Lasix diuresis and some pain medicine to calm her down. This worked very well and patient is stable this morning Somewhat sedated with pain medication however awake and alert when woken up, oriented in time and space and person Objective Vital Signs Date Time Temp Pulse Resp B/P Pulse Ox O2 Delivery O2 Flow Rate FiO2 10/12/16 10:05 93 Nasal Cannula 5.00 10/12/16 08:00 109 10/12/16 04:00 98.7 34 133/68 10/10/16 08:30 50 Intake and Output 10/11/16 10/11/16 10/12/16 08:00 16:00 00:00 Intake Total 608 ml 1442 ml 799 ml Output Total 1280 ml 2210 ml 1988 ml Balance -672 ml -768 ml -1189 ml Result Diagram: 10/12/16 0340 10/12/16 0340 Other Results Laboratory Tests Test 10/11/16 21:21 Blood Gas Puncture Site RT RADIAL Blood Gas Patient Temperature 98.6 Blood Gas HCO3 23 mmol/L (22-26) Blood Gas Base Excess -0.6 mmol/L (-2-2) Blood Gas Oxygen Saturation 97 % (90-100) Arterial Blood pH 7.42 (7.380-7.420) Arterial Blood Partial 37 mmHg (38-42) Pressure CO2 Arterial Blood Partial 178 mmHg Pressure O2 (61-120) Arterial Blood Oxygen Content 13.8 Vol % (12.0-20.0) Arterial Blood 1.3 % (0-4) Carboxyhemoglobin Arterial Blood Methemoglobin 0.8 % (0-2) Blood Gas Hemoglobin 9.8 G/DL (12.0-16.0) Oxygen Delivery Device Non-Rebreathing Mask Blood Gas Liter Flow 15 L/M Blood Gas Inspired Oxygen 100 % Imaging Last 24 hours Impressions Chest X-Ray 10/12/16 0600 Signed Impressions: Service Date/Time: September 05:39 - CONCLUSION: No significant change bibasilar consolidation. Interim extubation. Other lines and tubes unchanged, as above. 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 Wound VAC has been changed and there is decreased drainage Will patient's abdominal exam now is benign and there are no other anastomotic lines left considering that bowel is now disconnected into functional small bowel mainly jejunum, and defunctionalized colon, small bowel is so thin that I wouldn't be surprised patient developed another fistula in the face of her malnutrition and poor healing potential Restarted on TPN which she is tolerating well We'll keep NG tube in for another for 5 days considering the repaired enterotomies that could fall apart in face of poor nutritional status and impaired healing process Renal/I&O Normal renal function and good urine output Metabolic/Acid-Base Metabolically intact Hematologic White count normal and resolving left shift Vascular Central Line Catheter Date of Insertion: Jun 20, 2016 Side: Left Assessment and Plan Code Status Continue antibiotics as per infectious disease Continue hemodynamic and nutritional support is necessary Excellent workup by ICU team ID specialists and other team members contributing to this patient's care I've discussed this at length with her every day explained to him that this lady is very ill with multiple underlying problems He understands the situation and hopes for the best but this prepared for the worst as much as he can be Apparently this is not the case with nursing where patient's and nursing do not seem to be able to find, and language and patient apparently is very abusive to the nursing staff on the phone cussing them out so that now refusing to talk to him. I've experienced the same in the past however at this point patient is very correct in discussions with me Janice Olvera MD Oct 12, 2016 13:42
[2016-10-12] MEDS: VANCOMYCIN 1,000 MG/NS 250 ML IV SCH ×2 (13:51)
--- NOTE | 2016-10-12 14:24 | HHI.HCPN ---
Reason for visit a. To assist with evaluation and management of symptoms including: Pain, anxiety, depression b. To assist medical decision maker(s) with: better understanding of current medical conditions; weighing benefits/burdens of medical treatment options; making medical treatment decisions. . Subjective/Interval History INTERVAL NOTE: The patient was extubated 2 days ago. She had some respiratory distress during the night, but it seems better after diuresis and O2. Her white count is 7.8, but she had fever 101 during the night. I spoke with the patient yesterday about the prolonged hospitalization and the significant suffering and procedures that she has been through already, and I again let her know that some people in her situation would decide to stop further aggressive care and transition to comfort measures. She wants to think about that longer. I also spoke with her healthcare surrogate, Anuradha Christian, and she feels it may be time to transition to hospice and will also be speaking with the patient this weekend. . As per initial consultation note on 07/24/16 by Ronald Edouard MD: This 71-year-old female has a complex medical history over the past year. The patient was admitted to the hospital and sepsis and shock in October 2015 and was found to have ischemic bowel. She underwent surgery 11/13/15 with resection of some large and small bowel (as well as the gallbladder), but developed complications including an enterocutaneous fistula and required a second resection of bowel on 11/26/15. The patient eventually was able to be sent to SNF , but returned to the hospital again on 03/11/16 with abdominal pain and had infection involving the fistula. That was treated, and she was able to go home briefly. She returned to the hospital on 04/04/16 because of left leg pain that was found to be caused by ischemia. She underwent treatment with TPA and was kept on anticoagulation, and was discharged again. She returned to the hospital on 04/28/16 with gangrene of the left foot, and was found to have multiple thrombi in major vessels. 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 On 06/14/16, while at the nursing facility, the patient was moving in the bed and there was a dehiscence of the left leg stump wound, and she was sent back to the hospital for admission. Couple on arrival at the hospital, she was found to have a temperature of 100.2 , and she was readmitted. 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 Cultures from the stump wound grew both Klebsiella ESBL and a Morganella species. She was taken to the operating room for debridement and placement of a wound VAC. The fistula seemed to finally close on 06/25/16, but it reopened and has remained open since 07/12/16. She again had fever on 07/21/16 , and additional cultures were done. Staphylococcus hominis has been grown in the blood cultures. The patient has developed a worsening rash on her face, upper back, sacral/ buttock area, and now over the past few days worsening with development of bullae on multiple fingertips. The patient thinks there were vesicles on the rash across her back and on her face a week or 2 ago, but those seem to have all collapsed and dried. The patient has had worsening anxiety over the past several months that she has undergone multiple hospitalizations and complications. She has been receiving some PRN Xanax here, and she says that does help, but it is not scheduled. She has also had pain that has worsened, particularly in her abdomen that she relates to the enterocutaneous fistula, and on her skin on the sacral and upper back area, as well as some skin related to the facial rash. She has received intermittent [place] 10 mg and Dilaudid 1 mg IV a few times per day, and says they helped temporarily. Palliative Care was consulted to assist with symptom management, and to enter in discussions regarding goals of care in the benefits and burdens of the various illnesses and treatment options. . Advance Directives Living Will: Never completed Health Care Surrogate: Copy in medical record Durable Power of Financial Service Professional: Never completed Advance Directive Specifics Health Care Surrogate(s): Primary HCS is her close friend Anuradha Christian, and secondary is her Dwight Wilson. The HCS that is in the record here is not dated. . Objective Vital Signs Date Time Temp Pulse Resp B/P Pulse Ox O2 Delivery O2 Flow Rate FiO2 10/12/16 10:05 93 Nasal Cannula 5.00 10/12/16 08:00 109 10/12/16 07:00 96 Nasal Cannula 2.00 10/12/16 06:00 113 10/12/16 04:00 120 10/12/16 04:00 98.7 120 34 133/68 95 10/12/16 02:00 126 10/12/16 00:00 101.0 128 25 131/68 95 10/12/16 00:00 128 10/11/16 22:00 134 10/11/16 21:31 97 Non-Rebreather 15.00 10/11/16 20:45 140/74 10/11/16 20:17 94 Nasal Cannula 5.00 10/11/16 20:00 139 10/11/16 20:00 99.9 140 40 173/89 92 10/11/16 19:00 92 Simple Mask 6.00 10/11/16 18:00 134 10/11/16 16:00 99.8 122 25 170/77 95 10/11/16 16:00 122 Intake & Output 10/12/16 10/12/16 06:59 18:59 Intake Total 2322 ml Output Total 5088 ml Balance -2766 ml Intake Oral 0 ml IV Total 1153 ml TPN/PPN 927 ml Lipid 242 ml Output Urine Total 3700 ml Drainage Total 1388 ml Physical Exam CONSTITUTIONAL/GENERAL: She is in the [facility] bed. TUBES/LINES/DRAINS: Accessed port, guevara catheter SKIN: Skin temperature appropriate. Not diaphoretic. Abdominal wounds noted ENT: Nose without bleeding or purulent drainage. Throat without visible erythema, exudates, masses, or lesions. CARDIOVASCULAR: Regular rate and rhythm without murmurs, gallops, or rubs. No JVD. RESPIRATORY/CHEST: Symmetric, unlabored respirations. Scattered rhonchi are present. GASTROINTESTINAL: Soft, no bowel sounds heard. Ileostomy and colostomy noted MUSCULOSKELETAL: Extremities without clubbing, cyanosis, or edema. Stump now well healed. No mottling or clubbing. NEUROLOGICAL: More alert, but somewhat lethargic intermittently PSYCHIATRIC: Unable to evaluate due to her clinical condition . Diagnostic Tests Laboratory Laboratory Tests Test 10/10/16 10/10/16 10/10/16 10/11/16 04:45 05:15 21:40 05:40 White Blood Count 13.6 TH/MM3 12.8 TH/MM3 (4.0-11.0) (4.0-11.0) Red Blood Count 3.07 MIL/MM3 3.11 MIL/MM3 (4.00-5.30) (4.00-5.30) Hemoglobin 9.0 GM/DL 9.1 GM/DL (11.6-15.3) (11.6-15.3) Hematocrit 26.4 % 26.6 % (35.0-46.0) (35.0-46.0) Mean Corpuscular Volume 86.1 FL 85.8 FL (80.0-100.0) (80.0-100.0) Mean Corpuscular Hemoglobin 29.4 PG 29.2 PG (27.0-34.0) (27.0-34.0) Mean Corpuscular Hemoglobin 34.1 % 34.0 % Concent (32.0-36.0) (32.0-36.0) Red Cell Distribution Width 18.0 % 17.9 % (11.6-17.2) (11.6-17.2) Platelet Count 132 TH/MM3 94 TH/MM3 (150-450) (150-450) Mean Platelet Volume 9.0 FL 9.1 FL (7.0-11.0) (7.0-11.0) Neutrophils (%) (Auto) 82.8 % 78.3 % (16.0-70.0) (16.0-70.0) Lymphocytes (%) (Auto) 11.7 % 14.6 % (9.0-44.0) (9.0-44.0) Monocytes (%) (Auto) 3.1 % (0.0-8.0) 3.4 % (0.0-8.0) Eosinophils (%) (Auto) 1.8 % (0.0-4.0) 2.9 % (0.0-4.0) Basophils (%) (Auto) 0.6 % (0.0-2.0) 0.8 % (0.0-2.0) Neutrophils # (Auto) 11.3 TH/MM3 10.0 TH/MM3 (1.8-7.7) (1.8-7.7) Lymphocytes # (Auto) 1.6 TH/MM3 1.9 TH/MM3 (1.0-4.8) (1.0-4.8) Monocytes # (Auto) 0.4 TH/MM3 0.4 TH/MM3 (0-0.9) (0-0.9) Eosinophils # (Auto) 0.2 TH/MM3 0.4 TH/MM3 (0-0.4) (0-0.4) Basophils # (Auto) 0.1 TH/MM3 0.1 TH/MM3 (0-0.2) (0-0.2) CBC Comment AUTO DIFF AUTO DIFF Differential Total Cells 100 100 Counted Neutrophils % (Manual) 72 % (16-70) 55 % (16-70) Band Neutrophils % 16 % (0-6) 31 % (0-6) Lymphocytes % 10 % (9-44) 8 % (9-44) Monocytes % 1 % (0-8) 2 % (0-8) Neutrophils # (Manual) 12.1 TH/MM3 11.0 TH/MM3 (1.8-7.7) (1.8-7.7) Metamyelocytes 1 % (0-1) Differential Comment FINAL DIFF FINAL DIFF MANUAL MANUAL Platelet Estimate LOW (NORMAL) LOW (NORMAL) Platelet Morphology Comment NORMAL NORMAL (NORMAL) (NORMAL) Ernie Cells 1+ (NORMAL) Acanthocytes 1+ (NORMAL) Sodium Level 148 MEQ/L 148 MEQ/L (136-145) (136-145) Potassium Level 3.0 MEQ/L 3.5 MEQ/L 3.4 MEQ/L (3.5-5.1) (3.5-5.1) (3.5-5.1) Chloride Level 116 MEQ/L 115 MEQ/L (98-107) (98-107) Carbon Dioxide Level 22.5 MEQ/L 23.4 MEQ/L (21.0-32.0) (21.0-32.0) Anion Gap 10 MEQ/L (5-15) 10 MEQ/L (5-15) Blood Urea Nitrogen 24 MG/DL (7-18) 20 MG/DL (7-18) Creatinine 0.96 MG/DL 0.85 MG/DL (0.50-1.00) (0.50-1.00) Estimat Glomerular Filtration 57 ML/MIN (>89) 66 ML/MIN (>89) Rate Random Glucose 165 MG/DL 161 MG/DL (74-106) (74-106) Calcium Level 7.9 MG/DL 8.1 MG/DL (8.5-10.1) (8.5-10.1) Phosphorus Level 2.0 MG/DL 1.7 MG/DL (2.5-4.9) (2.5-4.9) Magnesium Level 1.7 MG/DL 2.2 MG/DL 1.8 MG/DL (1.5-2.5) (1.5-2.5) (1.5-2.5) Total Bilirubin 0.8 MG/DL 0.8 MG/DL (0.2-1.0) (0.2-1.0) Aspartate Amino Transf 32 U/L (15-37) 21 U/L (15-37) (AST/SGOT) Alanine Aminotransferase 44 U/L (10-53) 39 U/L (10-53) (ALT/SGPT) Alkaline Phosphatase 61 U/L (45-117) 70 U/L (45-117) Total Protein 4.3 GM/DL 4.9 GM/DL (6.4-8.2) (6.4-8.2) Albumin 1.5 GM/DL 1.8 GM/DL (3.4-5.0) (3.4-5.0) Blood Gas Puncture Site LT RADIAL Blood Gas Patient Temperature 98.6 Blood Gas HCO3 22 mmol/L (22-26) Blood Gas Base Excess -2.8 mmol/L (-2-2) Blood Gas Oxygen Saturation 94 % (90-100) Arterial Blood pH 7.36 (7.380-7.420) Arterial Blood Partial 40 mmHg (38-42) Pressure CO2 Arterial Blood Partial 81 mmHg Pressure O2 (61-120) Arterial Blood Oxygen Content 13.8 Vol % (12.0-20.0) Arterial Blood 0.9 % (0-4) Carboxyhemoglobin Arterial Blood Methemoglobin 0.9 % (0-2) Blood Gas Hemoglobin 10.4 G/DL (12.0-16.0) Oxygen Delivery Device VENTILATOR Blood Gas Ventilator Setting AC18/500/5PEEP Blood Gas Inspired Oxygen 40 % Eosinophils % 4 % (0-4) Toxic Vacuolation PRESENT (NONE SEEN) Dohle Bodies PRESENT (NONE SEEN) Test 10/11/16 10/11/16 10/12/16 21:21 21:45 03:40 Blood Gas Puncture Site RT RADIAL Blood Gas Patient Temperature 98.6 Blood Gas HCO3 23 mmol/L (22-26) Blood Gas Base Excess -0.6 mmol/L (-2-2) Blood Gas Oxygen Saturation 97 % (90-100) Arterial Blood pH 7.42 (7.380-7.420) Arterial Blood Partial 37 mmHg (38-42) Pressure CO2 Arterial Blood Partial 178 mmHg Pressure O2 (61-120) Arterial Blood Oxygen Content 13.8 Vol % (12.0-20.0) Arterial Blood 1.3 % (0-4) Carboxyhemoglobin Arterial Blood Methemoglobin 0.8 % (0-2) Blood Gas Hemoglobin 9.8 G/DL (12.0-16.0) Oxygen Delivery Device Non-Rebreathing Mask Blood Gas Liter Flow 15 L/M Blood Gas Inspired Oxygen 100 % White Blood Count 12.4 TH/MM3 7.8 TH/MM3 (4.0-11.0) (4.0-11.0) Red Blood Count 3.47 MIL/MM3 3.43 MIL/MM3 (4.00-5.30) (4.00-5.30) Hemoglobin 10.3 GM/DL 9.9 GM/DL (11.6-15.3) (11.6-15.3) Hematocrit 29.6 % 29.6 % (35.0-46.0) (35.0-46.0) Mean Corpuscular Volume 85.2 FL 86.4 FL (80.0-100.0) (80.0-100.0) Mean Corpuscular Hemoglobin 29.6 PG 29.0 PG (27.0-34.0) (27.0-34.0) Mean Corpuscular Hemoglobin 34.8 % 33.5 % Concent (32.0-36.0) (32.0-36.0) Red Cell Distribution Width 17.5 % 17.4 % (11.6-17.2) (11.6-17.2) Platelet Count 118 TH/MM3 87 TH/MM3 (150-450) (150-450) Mean Platelet Volume 9.9 FL 9.8 FL (7.0-11.0) (7.0-11.0) Neutrophils (%) (Auto) 84.4 % 57.2 % (16.0-70.0) (16.0-70.0) Lymphocytes (%) (Auto) 11.1 % 31.7 % (9.0-44.0) (9.0-44.0) Monocytes (%) (Auto) 2.5 % (0.0-8.0) 7.0 % (0.0-8.0) Eosinophils (%) (Auto) 1.5 % (0.0-4.0) 3.2 % (0.0-4.0) Basophils (%) (Auto) 0.5 % (0.0-2.0) 0.9 % (0.0-2.0) Neutrophils # (Auto) 10.5 TH/MM3 4.5 TH/MM3 (1.8-7.7) (1.8-7.7) Lymphocytes # (Auto) 1.4 TH/MM3 2.5 TH/MM3 (1.0-4.8) (1.0-4.8) Monocytes # (Auto) 0.3 TH/MM3 0.5 TH/MM3 (0-0.9) (0-0.9) Eosinophils # (Auto) 0.2 TH/MM3 0.2 TH/MM3 (0-0.4) (0-0.4) Basophils # (Auto) 0.1 TH/MM3 0.1 TH/MM3 (0-0.2) (0-0.2) CBC Comment AUTO DIFF AUTO DIFF Differential Total Cells 100 100 Counted Neutrophils % (Manual) 62 % (16-70) 40 % (16-70) Band Neutrophils % 14 % (0-6) 12 % (0-6) Lymphocytes % 11 % (9-44) 35 % (9-44) Monocytes % 7 % (0-8) 8 % (0-8) Eosinophils % 3 % (0-4) 4 % (0-4) Neutrophils # (Manual) 9.8 TH/MM3 4.1 TH/MM3 (1.8-7.7) (1.8-7.7) Metamyelocytes 1 % (0-1) Myelocytes 2 % (0-0) 1 % (0-0) Differential Comment FINAL DIFF FINAL DIFF MANUAL MANUAL Toxic Vacuolation PRESENT (NONE SEEN) Platelet Estimate LOW (NORMAL) LOW (NORMAL) Platelet Morphology Comment NORMAL NORMAL (NORMAL) (NORMAL) Red Cell Morphology Comment NORMAL (NORMAL) Sodium Level 144 MEQ/L 147 MEQ/L (136-145) (136-145) Potassium Level 3.4 MEQ/L 3.6 MEQ/L (3.5-5.1) (3.5-5.1) Chloride Level 110 MEQ/L 111 MEQ/L (98-107) (98-107) Carbon Dioxide Level 26.0 MEQ/L 26.8 MEQ/L (21.0-32.0) (21.0-32.0) Anion Gap 8 MEQ/L (5-15) 9 MEQ/L (5-15) Blood Urea Nitrogen 17 MG/DL (7-18) 18 MG/DL (7-18) Creatinine 0.79 MG/DL 0.83 MG/DL (0.50-1.00) (0.50-1.00) Estimat Glomerular Filtration 72 ML/MIN (>89) 68 ML/MIN (>89) Rate Random Glucose 207 MG/DL 195 MG/DL (74-106) (74-106) Calcium Level 8.2 MG/DL 8.0 MG/DL (8.5-10.1) (8.5-10.1) Vancomycin Level Trough 10.1 MCG/ML (5.0-10.0) Phosphorus Level 2.9 MG/DL (2.5-4.9) Magnesium Level 1.4 MG/DL (1.5-2.5) Total Bilirubin 0.7 MG/DL (0.2-1.0) Aspartate Amino Transf 15 U/L (15-37) (AST/SGOT) Alanine Aminotransferase 31 U/L (10-53) (ALT/SGPT) Alkaline Phosphatase 92 U/L (45-117) Total Protein 5.3 GM/DL (6.4-8.2) Albumin 1.8 GM/DL (3.4-5.0) Result Diagram: 10/12/16 0340 10/12/16 0340 Microbiology Microbiology Date/Time Procedure Status Source Growth 10/12/16 03:42 Aerobic Blood Culture Received Blood Peripheral Pending 10/12/16 03:42 Anaerobic Blood Culture Received Blood Peripheral Pending 10/12/16 03:42 Aerobic Blood Culture Received Blood Peripheral Pending 10/12/16 03:42 Anaerobic Blood Culture Received Blood Peripheral Pending Imaging Last Impressions Chest X-Ray 10/12/16 0600 Signed Impressions: Service Date/Time: September 05:39 - CONCLUSION: No significant change bibasilar consolidation. Interim extubation. Other lines and tubes unchanged, as above. Calixto Woodruff MD Abdomen/Pelvis CT 10/08/16 1057 Signed Impressions: Service Date/Time: Saturday, October 08, 2016 11:14 - CONCLUSION: 1. Findings very suspicious for ischemic colon. Postsurgical findings with evidence of prior colectomy. There is evidence of bowel wall pneumatosis of the transverse colon in the region of anastomosis. Adjacent small bubbles of extraluminal gas but may be within the portal venous system or free also noted. These findings are highly suspicious for ischemic colon. 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 2. Marked nonspecific distention of the stomach. Alexandru Lynch MD Liver Ultrasound 07/12/16 0000 Signed Impressions: Service Date/Time: Tuesday, July 12, 2016 18:07 - CONCLUSION: 1. No acute abnormality demonstrated. 2. Heterogeneous liver without measurable mass. 3. Small and heterogeneous spleen without a measurable mass. 4. Cortical thinning and scarring of the right kidney. 5. Previous cholecystectomy. Calixto Woodruff MD Chest CT 07/09/16 0000 Signed Impressions: Service Date/Time: Saturday, July 09, 2016 14:43 - CONCLUSION: 1. Small right pleural effusion and minimal right basilar consolidation. 2. 6 mm left basilar nodule. Followup CT chest 6 months recommended. Florian Pepper MD Lower Extremity Ultrasound 06/25/16 0000 Signed Impressions: Service Date/Time: Saturday, June 25, 2016 15:56 - CONCLUSION: Negative exam with no evidence of deep venous thrombosis. Soft tissue edema. Mike Leija MD Port Line Insertion 06/20/16 0000 Signed Impressions: Service Date/Time: Monday, June 20, 2016 08:53 - CONCLUSION: Uncomplicated ultrasound and fluoroscopic guided implanted central venous port catheter placement as described in detail above. An 8 Citizen [place] Power port was placed. Kevan Salgado Jr., MD Procedures Stump debridement and wound VAC placement 06/16/16 TPN Skin biopsies, face 07/24/16 Exploratory laparotomy, ileostomy, colostomy, bowel resection 10/08/16 . 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 No other specific skin pathology noted. . (8) pulmonary nodule on CT scan, 2.6 mm at the left base (9) depression (10) COPD, not oxygen dependent (11) history of breast cancer (12) anxiety (13) anemia Symptom Scale: (1) pain 0-10 Scale: 6 (she has been receiving [place] and parenteral hydromorphone) Comment: Pain has been mostly abdominal and pain related to her multiple skin lesions. . (2) anxiety 0-10 Scale: 4 (she has had occasional doses of Xanax that she says helps, but her anxiety is worsening overall) Comment: Well controlled with scheduled alprazolam. Not needing breakthrough alprazolam at this time. . (3) depression 0-10 Scale: 4 (long-term, was on Celexa at home, now on Zoloft; remains tearful frequently) Comment: Reasonably well controlled with sertraline. . Pertinent Non-Medical Issues Psychosocial: Second marriage for about 1 year, but most of that time in the hospital or SNF. No children, but has close friend Anuradha. Spiritual: Evaluation pending Legal: The patient has capacity for decision-making, and has designated her friend Anuradha and her Dwight as primary and secondary HCS respectively Ethical issues impacting care: None. . Important Contacts Primary HCS, close friend Anuradha Christian [phone] : Dwight Wilson [phone] . Prognosis She has suffered multiple illnesses, infections, and complications during the last 10 months, and now has undergone emergency surgery for more ischemic bowel. Her overall prognosis is quite poor, and she would be an appropriate hospice candidate if her proxy decision makers elected to transition to comfort care. . Code Status: Full Code Plan ==FULL CODE ==GOALS: The patient has previously wanted to continue AGGRESSIVE CARE. The patient remains at considerable risk for further complications including infections, bowel leak, pneumonia, etc. 10/11/16: I spoke with the patient about the prolonged hospitalization and the significant suffering and multiple procedures that she has been through already, and I again let her know that some people in her situation would decide to stop further aggressive care and transition to comfort measures. She wants to think about that longer. I also spoke with her healthcare surrogate, Anuradha Christian RN, and she feels it may already be time to transition to hospice and will also be speaking with the patient this weekend. ==DECISION-MAKING: The patient does seem to have regained her capacity for decision making, and the HCS is her friend Anuradha Christian and her Dwight Wilson as primary and secondary HCS respectively. ==SYMPTOMS: * Pain: Now with recent surgery; receiving hydromorphone * Anxiety: She was definitely improved on the current Xanax dosing. Now she is on propofol == Friend/HCS Anuradha Christian RN will come see the patient again this weekend, and will speak with the patient again regarding prognosis and goals. ==Palliative Care will continue to follow the patient during this hospitalization to further assist with symptom management and to re-visit goals of medical treatment if there are significant changes in the course of her illness. . . Time Spent Total Floor Time (mins): 29 Face to Face Time (mins): 15 >50% Counseling/Coord of Care: Yes (d/w/ Dr. Hill) Attestation To help prompt me to consider important information that might be impacting today's encounter and assessment, information from prior notes written by myself or my colleagues may have been "brought forward" into today's note. My signature on this note, however, is an attestation that I personally performed the exam, history, and/or decision-making noted today, and, unless otherwise indicated, the interactions with patient, family, and staff as well as the review of records all occurred today. I also attest that the listed assessment and stated plan reflect my best clinical judgment today based on the combination of historical information, prior notes, and today's exam/ interactions. When time spent is documented, it refers only to time spent today by the signer, or if indicated, combined time spent today by collaborating physician/nurse practitioner. Dalila Edouard MD Oct 12, 2016 14:24
[2016-10-12] MEDS: SODIUM CHLOR 0.9% 1000 ML INJ 1,000 ML IV SCH (15:00)
[2016-10-12] MEDS: ENOXAPARIN SODIUM 40 MG/0.4 ML SYRINGE SQ SCH (18:04)
--- NOTE | 2016-10-12 18:55 | EKG ---
Date Performed: 10/11/2016 Time Performed: 21:52:16 PTAGE: 71 years EKG: Sinus tachycardia. Poor R wave progression - probable normal variant Nonspecific ST-T wave changes Borderline ECG PREVIOUS TRACING : 10/10/2016 10.35 Since previous tracing, no significant change noted DOCTOR: Thor Granados Interpretating Date/Time 10/12/2016 18:54:10
[2016-10-12] MEDS: CLINIMIX E 5/25 2000 mL- >42 mls/hr IV-CENTRAL SCH ×3 (20:18)
[2016-10-12] MEDS: MIRTAZAPINE ODT 15 MG TAB PO SCH (20:25)
[2016-10-12] MEDS: PANTOPRAZOLE SODIUM 40 MG VIAL IV PUSH SCH (20:26)
[2016-10-12] MEDS: CHLORHEXIDINE 0.12% (ORAL KIT) 15 ML CUP MT SCH (22:07)
[2016-10-13] VITALS (14 sets, daily range): BP systolic 114–143; BP diastolic 58–69; PULSE 103–125; RESP 21–24; TEMP 98–99.8; O2SAT 94–99
[2016-10-13] MEDS: ENALAPRILAT 1.25 MG/ML VIAL IV PUSH SCH ×4 (01:19→19:49)
[2016-10-13] MEDS: METOPROLOL TARTRATE 5 MG/5 ML VIAL IV PUSH SCH ×4 (01:19→19:49)
[2016-10-13] MEDS: CHLORHEXIDINE 0.12% (ORAL KIT) 15 ML CUP MT SCH ×3 (01:20→19:49)
[2016-10-13] MEDS: HYDROmorphone HCL PF 1 MG/ML VIAL IV PRN ×5 (01:37→21:04)
[2016-10-13] MEDS: INSULIN ASPART SUPPLEMENTAL SCALE SQ SCH ×4 (03:13→21:04)
[2016-10-13] MEDS: RESP: ALBUTEROL 2.5 MG/IPRATROPIUM 0.5 MG NEB (SCH) NEB ×2 (04:00→09:25)
[2016-10-13] MEDS: ALPRAZolam 0.25 MG TAB PO SCH ×3 (06:11→21:03)
[2016-10-13] MEDS: metroNIDAZOLE 500 MG INJ 100 ML IV SCH ×3 (06:11→21:03)
[2016-10-13 06:36] LABS: BICARBONATE 30.8 MEQ/L (21.0-32.0)
[2016-10-13 06:39] LABS: POTASSIUM 2.8 MEQ/L (3.5-5.1)
[2016-10-13] MEDS: ICU - POTASSIUM CHLORIDE/AQUEOUS SOLN 40 MEQ/100 ML IVPB IV PRN ×2 (06:53→11:17)
[2016-10-13] MEDS: VANCOMYCIN 1,000 MG/NS 250 ML IV SCH ×2 (08:12)
[2016-10-13] MEDS: FUROSEMIDE 20 MG/2 ML VIAL IV PUSH SCH ×2 (08:13→17:52)
[2016-10-13] MEDS: CALCIUM/VITAMIN D 250 MG/125 U TAB PO SCH ×2 (08:13→20:19)
[2016-10-13] MEDS: ZINC SULFATE 220 MG CAP PO SCH (08:14)
[2016-10-13] MEDS: CALCITRIOL 0.25 MCG CAP PO SCH (08:19)
[2016-10-13] MEDS: DULoxetine HCl DR 30 MG CAP PO SCH (09:00)
[2016-10-13] MEDS: SODIUM CHLORIDE 0.9% FLUSH 5 ML FLUSH IVF SCH ×2 (09:00→20:19)
[2016-10-13] MEDS: MULTIVITAMIN TAB PO SCH (09:00)
[2016-10-13] MEDS: FERROUS SULFATE 325 MG (65 MG ELEMENTAL IRON) TAB PO SCH (09:00)
[2016-10-13] MEDS: NYSTATIN 100,000 U/GM PWD 15 GM BTL TOPICAL SCH ×2 (09:00→20:20)
--- NOTE | 2016-10-13 09:09 | HHI.PR ---
Subjective Remarks f/u; ischemic colitis/ respiratory failure ill looking but in no acute distress. pain is mild to moderate. low grade fever earlier. d/w the RN and no acute issues reported over night. Objective Vitals Vital Signs Date Time Temp Pulse Resp B/P Pulse Ox O2 Delivery O2 Flow Rate FiO2 10/13/16 06:00 116 10/13/16 04:00 99.8 111 24 123/66 97 10/13/16 04:00 111 10/13/16 02:00 108 10/13/16 00:00 124 10/13/16 00:00 99.0 124 24 123/69 99 10/12/16 22:00 122 10/12/16 20:23 95 Nasal Cannula 5.00 10/12/16 20:00 116 10/12/16 20:00 100.1 114 21 127/60 93 10/12/16 19:00 96 Nasal Cannula 2.00 10/12/16 18:00 125 10/12/16 16:00 98.3 119 23 132/63 95 10/12/16 16:00 119 10/12/16 14:00 102 10/12/16 12:00 122 10/12/16 12:00 98.6 122 18 109/61 95 10/12/16 10:05 93 Nasal Cannula 5.00 10/12/16 10:00 119 I/O 10/12/16 10/12/16 10/12/16 10/13/16 10/13/16 10/13/16 07:00 15:00 23:00 07:00 15:00 23:00 Intake Total 1523 ml 848 ml 1123 ml 795 ml Output Total 3100 ml 1250 ml 2505 ml 1282 ml Balance -1577 ml -402 ml -1382 ml -487 ml Intake Oral 0 ml 0 ml 0 ml IV Total 852 ml 848 ml 635 ml 350 ml TPN/PPN 488 ml 488 ml 445 ml Lipid 183 ml Output Urine Total 2400 ml 1250 ml 2350 ml 600 ml Gastric Drainage Total 475 ml Drainage Total 700 ml 155 ml 207 ml # Bowel Movements 0 0 Result Diagram: 10/12/16 0340 10/13/16 0547 Imaging Last Impressions Chest X-Ray 10/12/16 0600 Signed Impressions: Service Date/Time: September 05:39 - CONCLUSION: No significant change bibasilar consolidation. Interim extubation. Other lines and tubes unchanged, as above. Calixto Woodruff MD Abdomen/Pelvis CT 10/08/16 1057 Signed Impressions: Service Date/Time: Saturday, October 08, 2016 11:14 - CONCLUSION: 1. Findings very suspicious for ischemic colon. Postsurgical findings with evidence of prior colectomy. There is evidence of bowel wall pneumatosis of the transverse colon in the region of anastomosis. Adjacent small bubbles of extraluminal gas but may be within the portal venous system or free also noted. These findings are highly suspicious for ischemic colon. 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 2. Marked nonspecific distention of the stomach. Alexandru Lynch MD Liver Ultrasound 07/12/16 0000 Signed Impressions: Service Date/Time: Tuesday, July 12, 2016 18:07 - CONCLUSION: 1. No acute abnormality demonstrated. 2. Heterogeneous liver without measurable mass. 3. Small and heterogeneous spleen without a measurable mass. 4. Cortical thinning and scarring of the right kidney. 5. Previous cholecystectomy. Calixto Woodruff MD Chest CT 07/09/16 0000 Signed Impressions: Service Date/Time: Saturday, July 09, 2016 14:43 - CONCLUSION: 1. Small right pleural effusion and minimal right basilar consolidation. 2. 6 mm left basilar nodule. Followup CT chest 6 months recommended. Florian Pepper MD Lower Extremity Ultrasound 06/25/16 0000 Signed Impressions: Service Date/Time: Saturday, June 25, 2016 15:56 - CONCLUSION: Negative exam with no evidence of deep venous thrombosis. Soft tissue edema. Mike Leija MD Port Line Insertion 06/20/16 0000 Signed Impressions: Service Date/Time: Monday, June 20, 2016 08:53 - CONCLUSION: Uncomplicated ultrasound and fluoroscopic guided implanted central venous port catheter placement as described in detail above. An 8 [place] Power port was placed. Kevan Salgado Jr., MD Last Impressions Chest X-Ray 10/12/16 0600 Signed Impressions: Service Date/Time: September 05:39 - CONCLUSION: No significant change bibasilar consolidation. Interim extubation. Other lines and tubes unchanged, as above. Calixto Woodruff MD Abdomen/Pelvis CT 10/08/16 1057 Signed Impressions: Service Date/Time: Saturday, October 08, 2016 11:14 - CONCLUSION: 1. Findings very suspicious for ischemic colon. Postsurgical findings with evidence of prior colectomy. There is evidence of bowel wall pneumatosis of the transverse colon in the region of anastomosis. Adjacent small bubbles of extraluminal gas but may be within the portal venous system or free also noted. These findings are highly suspicious for ischemic colon. 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 2. Marked nonspecific distention of the stomach. Alexandru Lynch MD Liver Ultrasound 07/12/16 0000 Signed Impressions: Service Date/Time: Tuesday, July 12, 2016 18:07 - CONCLUSION: 1. No acute abnormality demonstrated. 2. Heterogeneous liver without measurable mass. 3. Small and heterogeneous spleen without a measurable mass. 4. Cortical thinning and scarring of the right kidney. 5. Previous cholecystectomy. Calixto Woodruff MD Chest CT 07/09/16 0000 Signed Impressions: Service Date/Time: Saturday, July 09, 2016 14:43 - CONCLUSION: 1. Small right pleural effusion and minimal right basilar consolidation. 2. 6 mm left basilar nodule. Followup CT chest 6 months recommended. Florian Pepper MD Lower Extremity Ultrasound 06/25/16 0000 Signed Impressions: Service Date/Time: Saturday, June 25, 2016 15:56 - CONCLUSION: Negative exam with no evidence of deep venous thrombosis. Soft tissue edema. Mike Leija MD Port Line Insertion 06/20/16 0000 Signed Impressions: Service Date/Time: Monday, June 20, 2016 08:53 - CONCLUSION: Uncomplicated ultrasound and fluoroscopic guided implanted central venous port catheter placement as described in detail above. An 8 [place] Power port was placed. Kevan Salgado Jr., MD Objective Remarks GENERAL: ill looking but in no acute distress CARDIOVASCULAR: Regular rate and irregular rhythm without murmurs, gallops, or rubs. RESPIRATORY: Clear to auscultation. Breath sounds equal bilaterally. No wheezes , rales, or rhonchi. GASTROINTESTINAL: Abdomen soft, colostomy in place MUSCULOSKELETAL: s/p left BKA NEURO: awake and alert Procedures Left stump debridement by Dr. Hill on 06/15/16 Bedside debridement of preperitoneal fat that was protruding from the abdominal fistula 09/01/16 central line placement Exploratory laparotomy, resection of the anterior abdominal wall fistula tract, resection of the transverse colon to small bowel anastomosis, lysis of adhesions of the small bowel with repair of two enterotomies, right-sided ileostomy, left-sided mucous fistula and partial removal of a ventral hernia mesh. Medications and IVs Current Medications Sodium Chloride (NS 1000 ml Inj) 1,000 ml @ 60 mls/hr [id number] IV Last administered on 06/20/16at 23:16; Start 06/14/16 at 17:00; Stop 06/21/16 at 11:39 ; Status DC IV Flush (NS Flush) 2 ml BID IV FLUSH Last administered on 10/08/16at 09:00; Start 06/14/16 at 21:00; Stop 10/08/16 at 15:03; Status DC IV Flush (NS Flush) 2 ml UNSCH PRN IV FLUSH FLUSH AFTER USING IV ACCESS Last administered on 09/17/16at 08:59; Start 06/14/16 at 17:00; Stop 10/08/16 at 15: 03; Status DC Oxycodone/ Acetaminophen (Percocet 5-325 Mg) 1 tab Q4H PRN PO PAIN SCALE 1 TO 5 Last administered on 06/22/16at 04:13; Start 06/14/16 at 17:00; Stop 07/01/16 at 17:04; Status DC Diltiazem HCl 120 mg 120 mg DAILY PO Last administered on 08/31/16at 08:43; Start 06/15/16 at 09:00; Stop 08/31/16 at 09:17; Status DC Vancomycin HCl 500 mg/Sodium Chloride 100 ml @ 200 mls/hr ONCE ONCE IV Last administered on 06/14/16at 18:51; Start 06/14/16 at 18:00; Stop 06/14/16 at 18:29 ; Status DC Pharmacy Profile Note ml @ 0 mls/hr UNSCH XX ; Start 06/14/16 at 18:00; Stop at 13:55; Status DC Aztreonam/Sodium Chloride (Azactam Inj/NS Inj) 100 ml @ 200 mls/hr Q8H IV Last administered on 06/17/16at 11:55; Start 06/14/16 at 20:00; Stop 06/17/16 at 13:55; Status DC Alprazolam (Xanax) 0.125 mg Q6H PRN PO anxiety Last administered on 07/24/16at 12:21; Start 06/14/16 at 17:45; Stop 07/26/16 at 10:50; Status DC Calcitriol (Rocaltrol) 0.25 mcg DAILY PO Last administered on 10/13/16at 08:19 ; Start 06/15/16 at 09:00 Citalopram Hydrobromide (CeleXA) 40 mg DAILY PO Last administered on 07/07/16at 09:12; Start 06/15/16 at 09:00; Stop 07/07/16 at 11:49; Status DC Diltiazem HCl (Cardizem Cd) 120 mg DAILY PO ; Start 06/15/16 at 09:00; Stop at 09:00; Status DC Ferrous Sulfate (Ferrous Sulfate) 325 mg DAILY PO Last administered on at 09:14; Start 06/15/16 at 09:00 Gabapentin (Neurontin) 100 mg HS PO Last administered on 09/23/16at 21:27; Start 06/14/16 at 21:00; Stop 09/24/16 at 11:05; Status DC Lactobacillus Acidophilus (Lactinex) 1 tab TID PO Last administered on at 10:10; Start 06/14/16 at 18:00; Stop 10/08/16 at 20:00; Status DC Loperamide HCl (Imodium) 2 mg Q6H PRN PO DIARRHEA Last administered on at 17:14; Start 06/14/16 at 17:45; Stop 09/08/16 at 14:24; Status DC Multivitamins/ Minerals Therapeutic (Theragran M Tab) 1 tab DAILY PO Last administered on 06/15/16at 08:17; Start 06/15/16 at 09:00; Stop 06/15/16 at 11:41 ; Status DC Tetracycline HCl (Sumycin) 250 mg Q6HR PO ; Start 06/14/16 at 18:00; Stop at 18:00; Status DC Calcium/Vitamin D (Oscal-D 250-125) 500 mg BID PO Last administered on at 08:13; Start 06/14/16 at 21:00 Pantoprazole Sodium (Protonix) 20 mg BID PO Last administered on 07/09/16at 09: 00; Start 06/14/16 at 21:00; Stop 07/09/16 at 16:36; Status DC Ondansetron HCl (Zofran Odt) 8 mg Q6H PRN PO NAUSEA OR VOMITING Last administered on 10/08/16at 06:55; Start 06/14/16 at 18:15; Stop 10/08/16 at 20: 00; Status DC Miscellaneous 1 ea 1 ea UNSCH PRN OTHER SEE LABEL COMMENTS; Start 06/14/16 at 18:00 Vancomycin HCl/ Sodium Chloride (Vancomycin Inj/ NS 250 ml Inj) 262 ml @ 250 mls/hr Q12H IV Last administered on 06/15/16at 08:16; Start 06/15/16 at 08:00; Stop 06/15/16 at 10:02; Status DC Miscellaneous Information SPECIFIC LAB TO BE DRAWN:VA... ONCE ONCE XX Last administered on 06/16/16at 07:45; Start 06/16/16 at 07:45; Stop 06/16/16 at 07:46 ; Status DC Vancomycin HCl/ Sodium Chloride (Vancomycin Inj/ NS 250 ml Inj) 265 ml @ 250 mls/hr Q12H IV Last administered on 06/16/16at 08:50; Start 06/15/16 at 20:00; Stop 06/16/16 at 11:16; Status DC Bupivacaine HCl (Marcaine Pf 0.5% Inj) 30 ml STK-MED ONCE .ROUTE Last administered on 06/15/16at 11:20; Start 06/15/16 at 10:23; Stop 06/15/16 at 10:24 ; Status DC Bacitracin (Baciguent Oint) 15 applic STK-MED ONCE .ROUTE ; Start 06/15/16 at 10 :23; Stop 06/15/16 at 10:24; Status DC Acetaminophen (Ofirmev Inj) 1,000 mg STK-MED ONCE IV ; Start 06/15/16 at 10:29; Stop 06/15/16 at 10:30; Status DC Gentamicin Sulfate (Gentamicin Inj) 240 mg STK-MED ONCE .ROUTE Last administered on 06/15/16at 11:20; Start 06/15/16 at 10:30; Stop 06/15/16 at 10:31 ; Status DC Multivitamins (Theragran) 1 tab DAILY PO Last administered on 10/12/16at 09:14 ; Start 06/15/16 at 12:00 Rivaroxaban (Xarelto) 20 mg DAILY PO Last administered on 06/19/16at 09:00; Start 06/15/16 at 12:00; Stop 06/20/16 at 15:39; Status DC Morphine Sulfate (*morphine INJ PERIprocedure ONLY) 8 mg STK-MED ONCE .ROUTE Last administered on 06/15/16at 11:56; Start 06/15/16 at 11:56; Stop 06/15/16 at 11:57; Status DC Morphine Sulfate (*morphine INJ PERIprocedure ONLY) 8 mg STK-MED ONCE .ROUTE Last administered on 06/15/16at 12:03; Start 06/15/16 at 12:03; Stop 06/15/16 at 12:04; Status DC Miscellaneous Information ALL NURSING DEPARTME... UNSCH PRN XX SEE LABEL COMMENTS; Start 06/15/16 at 12:45; Stop 06/16/16 at 12:44; Status DC Midazolam HCl (Versed Inj) 2 mg STK-MED ONCE .ROUTE ; Start 06/15/16 at 14:13; Stop 06/15/16 at 14:14; Status DC Fentanyl Citrate (Sublimaze Inj) 100 mcg STK-MED ONCE .ROUTE ; Start 06/15/16 at 14:14; Stop 06/15/16 at 14:15; Status DC Fentanyl Citrate (Sublimaze Inj) 100 mcg STK-MED ONCE .ROUTE ; Start 06/15/16 at 14:14; Stop 06/15/16 at 14:15; Status DC Hydromorphone HCl (Dilaudid Pf Inj) 1 mg Q4H PRN IV PUSH BREAKTHROUGH PAIN Last administered on 08/09/16at 21:35; Start 06/15/16 at 14:30; Stop 08/18/16 at 11:29; Status DC Potassium Chloride (KCl) 30 meq ONCE ONCE PO Last administered on 06/15/16at 19 :11; Start 06/15/16 at 18:45; Stop 06/15/16 at 18:50; Status DC Propofol (Diprivan 200 Mg/20 ml Inj) 200 mg STK-MED ONCE IV ; Start 06/15/16 at 12:00; Stop 06/16/16 at 09:32; Status DC Phenylephrine HCl (Neosynephrine/ NS 1000 Mcg/10ml Syr) 1,000 mcg STK-MED ONCE IV ; Start 06/15/16 at 12:00; Stop 06/16/16 at 09:32; Status DC Ondansetron HCl 4 mg 4 mg STK-MED ONCE IV PUSH ; Start 06/15/16 at 12:00; Stop 06/16/16 at 09:32; Status DC Vancomycin HCl/ Sodium Chloride (Vancomycin Inj/ NS 250 ml Inj) 265 ml @ 250 mls/hr Q18H IV Last administered on 06/17/16at 02:44; Start 06/17/16 at 03:00; Stop 06/17/16 at 13:55; Status DC Miscellaneous Information SPECIFIC LAB TO BE DRAWN:VANCOMYCIN TROUGH DATE TO... ONCE ONCE XX ; Start 06/18/16 at 14:45; Stop 06/18/16 at 14:46; Status Cancel Ceftolozane/ Tazobactam/Sodium Chloride (Zerbaxa Inj/NS Inj) 100 ml @ 100 mls/ hr Q8H IV Last administered on 06/20/16at 01:19; Start 06/17/16 at 16:00; Stop 06/20/16 at 15:19; Status DC Fluconazole (Diflucan) 150 mg ONCE ONCE PO Last administered on 06/17/16at 16: 45; Start 06/17/16 at 14:15; Stop 06/17/16 at 14:16; Status DC Potassium Chloride 40 meq 40 meq ONCE ONCE PO Last administered on 06/18/16at 15:56; Start 06/18/16 at 16:00; Stop 06/18/16 at 16:01; Status DC Magnesium Sulfate/ Dextrose (Magnesium Sulfate 1 Gm Premix) 100 ml @ 100 mls/ hr Q1H IV Last administered on 06/19/16at 02:48; Start 06/19/16 at 02:00; Stop 06/19/16 at 03:59; Status DC Nystatin 1 applic 1 applic Q12HR TOPICAL Last administered on 07/11/16at 09:00; Start 06/19/16 at 15:00; Stop 07/11/16 at 10:22; Status DC Vancomycin HCl/ Sodium Chloride (Vancomycin Inj/ NS 250 ml Inj) 250 ml @ 250 mls/hr ADULT [employer] LIB[employer]IAN ONCE IV Last administered on 06/20/16at 08:32; Start 06/20/16 at 10:00; Stop 06/20/16 at 10:59; Status DC Midazolam HCl (Versed Inj) 5 mg STK-MED ONCE .ROUTE Last administered on at 09:10; Start 06/20/16 at 08:48; Stop 06/20/16 at 08:49; Status DC Fentanyl Citrate (Sublimaze Inj) 250 mcg STK-MED ONCE .ROUTE Last administered on 06/20/16at 09:10; Start 06/20/16 at 08:49; Stop 06/20/16 at 08:50; Status DC Heparin Sodium (Porcine) (*HEPARIN CENTRAL FLUSH PERIprocedural ONLY) 500 units STK-MED ONCE .ROUTE ; Start 06/20/16 at 09:01; Stop 06/20/16 at 09:02; Status DC Lidocaine/ Epinephrine (Xylocaine-Epi 1%-1:100,000 Inj) 30 ml STK-MED ONCE .ROUTE ; Start 06/20/16 at 09:02; Stop 06/20/16 at 09:03; Status DC Heparin Sodium (Porcine) (Heparin Central Flush) 500 units UNSCH IVF Last administered on 10/06/16at 12:24; Start 06/20/16 at 11:30 IV Flush (NS Flush) 5 ml UNSCH PRN IVF SEE PROTOCOL Last administered on at 17:30; Start 06/20/16 at 11:30 Heparin Sodium (Porcine) (Heparin Central Flush) 250 units UNSCH PRN IVF SEE PROTOCOL Last administered on 07/26/16at 14:54; Start 06/20/16 at 11:30 Miscellaneous Medication (ASP Crit: Doc ESBL, MDR A baumannii or P aer) 1 UNSCH X1 PRN XX PHARMACY DOCUMENTATION; Start 06/20/16 at 15:30; Stop 06/21/16 at 15: 29; Status DC Miscellaneous Medication 1 1 UNSCH X1 PRN XX PHARMACY DOCUMENTATION; Start at 15:30; Stop 06/21/16 at 15:29; Status DC Ertapenem/Sodium Chloride (INVanz INJ/NS Inj) 100 ml @ 200 mls/hr Q24H IV Last administered on 06/22/16at 19:57; Start 06/20/16 at 17:00; Stop 06/23/16 at 12 :51; Status DC Rivaroxaban 20 mg 20 mg DAILY PO Last administered on 10/08/16at 10:11; Start 06/21/16 at 09:00; Stop 10/08/16 at 20:01; Status DC Multivitamins 10 ml/Folic Acid 1 mg/Amino Acid Electrolyte w/ Calc 1,010.2 ml @ 42 mls/hr Q24H IV-CENTRAL Last administered on 07/13/16at 18:23; Start at 20:00; Stop 07/14/16 at 18:08; Status DC Fat Emulsion Intravenous (Liposyn Iii 20% Inj) 250 ml @ 31.25 mls/ hr Q24H IV- CENTRAL Last administered on 07/14/16at 23:05; Start 06/20/16 at 20:00; Stop at 19:59; Status DC Potassium Chloride 60 meq 60 meq ONCE ONCE PO Last administered on 06/20/16at 21:59; Start 06/20/16 at 21:00; Stop 06/20/16 at 21:01; Status DC Magnesium Sulfate/ Dextrose (Magnesium Sulfate 1 Gm Premix) 100 ml @ 100 mls/ hr Q1H IV Last administered on 06/21/16at 14:32; Start 06/21/16 at 13:15; Stop 06/21/16 at 15:14; Status DC Potassium Chloride (KCl) 20 meq ONCE ONCE PO Last administered on 06/21/16at 13 :35; Start 06/21/16 at 13:15; Stop 06/21/16 at 13:16; Status DC Albuterol/ Ipratropium (Duoneb Neb) 1 ampule Q4HR NEB PRN NEB SOB/WHEEZING Last administered on 07/24/16at 16:02; Start 06/21/16 at 20:15; Stop 08/18/16 at 11:29; Status DC Oxycodone/ Acetaminophen 1 tab 1 tab Q4H PRN PO pain 6-10 Last administered on 06/22/16at 18:20; Start 06/22/16 at 13:00; Stop 06/22/16 at 19:13; Status DC Potassium Chloride (KCl 10 Meq Premix Inj) 100 ml @ 100 mls/hr Q1H IV Last administered on 06/22/16at 23:49; Start 06/22/16 at 19:00; Stop 06/22/16 at 21:59; Status DC Oxycodone/ Acetaminophen (Percocet 10-325 Mg) 1 tab Q4H PRN PO PAIN SCALE 6 TO 10 Last administered on 07/05/16at 21:03; Start 06/22/16 at 19:15; Stop 07/06/16 at 11:13; Status DC Potassium Chloride (KCl) 30 meq ONCE ONCE PO Last administered on 06/23/16at 13: 18; Start 06/23/16 at 12:00; Stop 06/23/16 at 12:01; Status DC Oxycodone/ Acetaminophen (Percocet 5-325 Mg) 1 tab Q3H PRN PO PAIN SCALE 1 TO 5; Start 07/01/16 at 20:00; Stop 07/06/16 at 11:13; Status DC Potassium Chloride (KCl) 20 meq ONCE ONCE PO Last administered on 07/02/16at 14 :10; Start 07/02/16 at 13:15; Stop 07/02/16 at 13:16; Status DC Potassium Chloride (KCl) 30 meq ONCE ONCE PO Last administered on 07/04/16at 19 :08; Start 07/04/16 at 18:15; Stop 07/04/16 at 19:00; Status DC Potassium Chloride (KCl) 30 meq ONCE ONCE PO Last administered on 07/06/16at 09 :53; Start 07/06/16 at 08:15; Stop 07/06/16 at 08:18; Status DC Clotrimazole 1 applic 1 applic Q8HR TOPICAL Last administered on 07/11/16at 06: 00; Start 07/06/16 at 10:00; Stop 07/11/16 at 10:43; Status DC Magnesium Sulfate/ Dextrose (Magnesium Sulfate 1 Gm Premix) 100 ml @ 100 mls/ hr Q1H IV Last administered on 07/06/16at 11:15; Start 07/06/16 at 10:00; Stop 07/06/16 at 11:59; Status DC Acetaminophen/ Hydrocodone Bitart ([place] 5-325 Mg) 1 tab Q4H PRN PO PAIN SCALE 1 TO 4 Last administered on 07/14/16at 19:24; Start 07/06/16 at 11:15; Stop 07/16/16 at 11:04; Status DC Acetaminophen/ Hydrocodone Bitart ([place] 5-325 Mg) 2 tab Q4H PRN PO PAIN SCALE 5 TO 10 Last administered on 07/16/16at 06:04; Start 07/06/16 at 11:15; Stop 07/16/16 at 11:04; Status DC Sertraline HCl (Zoloft) 100 mg DAILY PO Last administered on 07/15/16at 08:55; Start 07/08/16 at 09:00; Stop 07/16/16 at 11:03; Status DC Quetiapine Fumarate (SEROquel) 25 mg DAILY PO Last administered on 07/29/16at 09 :47; Start 07/08/16 at 21:00; Stop 07/29/16 at 13:49; Status DC Potassium Chloride 40 meq 40 meq ONCE ONCE PO Last administered on 07/08/16at 16:00; Start 07/08/16 at 15:00; Stop 07/08/16 at 15:04; Status DC Magnesium Sulfate/ Dextrose 100 ml @ 100 mls/hr Q1H IV Last administered on at 16:15; Start 07/08/16 at 15:15; Stop 07/08/16 at 17:14; Status DC Vancomycin HCl 1000 mg/Sodium Chloride 250 ml @ 250 mls/hr Q24H IV Last administered on 07/12/16at 10:34; Start 07/09/16 at 11:00; Stop 07/12/16 at 15:39 ; Status DC Aztreonam/Sodium Chloride (Azactam Inj/NS Inj) 100 ml @ 200 mls/hr Q8H IV Last administered on 07/19/16at 08:36; Start 07/09/16 at 10:00; Stop 07/19/16 at 13:35; Status DC Potassium Chloride (KCl) 30 meq ONCE ONCE PO Last administered on 07/09/16at 10 :15; Start 07/09/16 at 10:15; Stop 07/09/16 at 10:19; Status DC Pantoprazole Sodium (Protonix) 40 mg BID PO Last administered on 10/08/16at 10: 12; Start 07/09/16 at 21:00; Stop 10/08/16 at 20:01; Status DC Ondansetron HCl (Zofran Inj) 4 mg Q6HR PRN IV PUSH NAUSEA OR VOMITING Last administered on 08/14/16at 12:44; Start 07/09/16 at 16:45; Stop 08/18/16 at 11: 29; Status DC Al Hydrox/Mg Hydrox/Simethicone (Mag-Al Plus Susp Liq) 30 ml Q6H PRN PO HEARTBURN Last administered on 09/28/16at 21:39; Start 07/09/16 at 16:45 Acyclovir (Zovirax 5% Cream) 1 applic 5 TIMES A DAY TOPICAL Last administered on 07/16/16at 10:30; Start 07/10/16 at 18:00; Stop 07/16/16 at 16:50; Status DC Multi-Ingredient Mouthwash/Gargle (Magic Mouthwash Adult Liq) 10 ml QID SWISH- SWAL Last administered on 08/18/16at 09:12; Start 07/10/16 at 19:00; Stop at 11:29; Status DC Acyclovir (Zovirax) 400 mg Q8HR PO Last administered on 07/17/16at 15:29; Start 07/10/16 at 22:00; Stop 07/17/16 at 21:59; Status DC Acetaminophen (Tylenol) 650 mg Q4H PRN PO T>101, SARMIENTO Last administered on at 21:48; Start 07/11/16 at 05:45 Clotrimazole (Mycelex) 10 mg 5 TIMES A DAY BUCCAL Last administered on at 09:23; Start 07/11/16 at 14:00; Stop 07/25/16 at 13:59; Status DC Nystatin 1 applic 1 applic Q12HR TOPICAL Last administered on 10/12/16at 20:19 ; Start 07/11/16 at 12:00 Pharmacy Profile Note (Vancomycin Consult Pharmacy) 0 ml @ 0 mls/hr UNSCH OTHER ; Start 07/11/16 at 10:15; Stop 08/16/16 at 23:00; Status DC Miscellaneous Information SPECIFIC LAB TO BE DRAWN:VANCO TROUGH DATE TO BE .. ONCE ONCE XX Last administered on 07/12/16at 10:34; Start 07/12/16 at 10: 45; Stop 07/12/16 at 10:46; Status DC Vancomycin HCl/ Sodium Chloride (Vancomycin Inj/ NS 250 ml Inj) 250 ml @ 250 mls/hr Q18H IV Last administered on 07/25/16at 04:12; Start 07/13/16 at 05:00; Stop 07/25/16 at 11:17; Status DC Miscellaneous Information SPECIFIC LAB TO BE .. ONCE ONCE XX Last administered on 07/15/16at 10:45; Start 07/15/16 at 10:45; Stop 07/15/16 at 10:46 ; Status DC Potassium Chloride (KCl) 50 meq ONCE ONCE PO Last administered on 07/13/16at 13 :45; Start 07/13/16 at 13:45; Stop 07/13/16 at 13:46; Status DC Magnesium Oxide (Mag-Ox) 400 mg Q12HR PO Last administered on 10/08/16at 10:10 ; Start 07/13/16 at 13:45; Stop 10/08/16 at 20:01; Status DC Potassium Chloride (KCl) 50 meq ONCE ONCE PO Last administered on 07/14/16at 14 :01; Start 07/14/16 at 10:45; Stop 07/14/16 at 10:46; Status DC Clotrimazole (Lotrimin 1% Cream) 1 applic Q12HR TOPICAL Last administered on at 09:00; Start 07/14/16 at 11:00; Stop 07/23/16 at 14:44; Status DC Metronidazole (Flagyl) 500 mg Q8HR PO Last administered on 07/24/16at 05:13; Start 07/14/16 at 14:00; Stop 07/24/16 at 12:22; Status DC Collagenase 1 applic 1 applic DAILY TOP Last administered on 10/06/16at 08:19; Start 07/14/16 at 13:15; Stop 10/06/16 at 13:27; Status DC Multivitamins 10 ml/Folic Acid 1 mg/Amino Acid Electrolyte w/ Calc 1,010.2 ml @ 42 mls/hr Q24H IV-CENTRAL Last administered on 07/15/16at 17:41; Start at 18:08; Stop 07/15/16 at 19:59; Status DC Multivitamins 10 ml/Folic Acid 1 mg/Amino Acid Electrolyte w/ Calc 2,010.2 ml @ 60 mls/hr Q24H IV-CENTRAL Last administered on 08/17/16at 22:01; Start at 20:00; Stop 08/18/16 at 08:48; Status DC Fat Emulsion Intravenous (Liposyn Iii 20% Inj) 250 ml @ 31.25 mls/ hr SuWe@20 IV-CENTRAL Last administered on 10/04/16at 21:28; Start 07/16/16 at 20:00; Stop 10/06/16 at 09:22; Status DC Sertraline HCl (Zoloft) 150 mg DAILY PO Last administered on 10/08/16at 10:11; Start 07/17/16 at 09:00; Stop 10/08/16 at 20:01; Status DC Acetaminophen/ Hydrocodone Bitart ([place] 7.5-325 Mg) 1 tab Q4H PRN PO PAIN SCALE 1-5 Last administered on 08/18/16at 05:16; Start 07/16/16 at 11:00; Stop 08/18/16 at 11:29; Status DC Acetaminophen/ Hydrocodone Bitart ([place] 10-325 Mg) 1.5 tab Q4H PRN PO PAIN SCALE 6 TO 10 Last administered on 08/18/16at 10:26; Start 07/16/16 at 11:00; Stop 08/18/16 at 11:29; Status DC Naloxone HCl (Narcan Inj) 0.4 mg UNSCH PRN IV SEE LABEL COMMENTS; Start at 11:00; Stop 09/10/16 at 10:25; Status DC Clotrimazole (Lotrimin 1% Cream) 1 applic Q8HR TOPICAL Last administered on at 05:53; Start 07/16/16 at 17:00; Stop 08/08/16 at 15:04; Status DC Diphenhydramine HCl (Benadryl Liq) 12.5 mg Q6H PRN PO pruritus Last administered on 08/14/16at 21:17; Start 07/16/16 at 17:00; Stop 08/19/16 at 08: 32; Status DC Potassium Chloride 60 meq 60 meq ONCE ONCE PO Last administered on 07/18/16at 18:59; Start 07/18/16 at 18:45; Stop 07/18/16 at 18:46; Status DC Acyclovir Sodium/ Sodium Chloride (Zovirax Inj/NS Inj) 100 ml @ 100 mls/hr Q8H IV Last administered on 07/24/16at 09:27; Start 07/19/16 at 16:00; Stop at 12:01; Status DC Miscellaneous Information SPECIFIC LAB TO BE DRAWN:VANCOMYCIN TROUGH DATE TO... ONCE ONCE XX Last administered on 07/22/16at 04:45; Start 07/22/16 at 04:45; Stop 07/22/16 at 04:46; Status DC Metoclopramide HCl 5 mg 5 mg Q8H PRN IV PUSH refractory nausea; Start 07/23/16 at 12:30; Stop 08/19/16 at 08:32; Status DC Potassium Chloride (KCl 20 Meq Premix Inj) 100 ml @ 50 mls/hr Q2H IV Last administered on 07/24/16at 12:20; Start 07/24/16 at 09:00; Stop 07/24/16 at 13:03 ; Status DC Alprazolam (Xanax) 0.125 mg Q8HR PO Last administered on 07/26/16at 05:49; Start 07/24/16 at 14:00; Stop 07/26/16 at 10:50; Status DC Methadone HCl (Dolophine) 2.5 mg Q12HR PO Last administered on 07/26/16at 08:36 ; Start 07/24/16 at 21:00; Stop 07/26/16 at 10:50; Status DC Lidocaine HCl 50 ml 50 ml STK-MED ONCE .ROUTE Last administered on 07/24/16at 16 :44; Start 07/24/16 at 16:44; Stop 07/24/16 at 16:45; Status DC Potassium Chloride (KCl 20 Meq Premix Inj) 100 ml @ 50 mls/hr Q2H IV Last administered on 07/25/16at 08:00; Start 07/25/16 at 06:00; Stop 07/25/16 at 09:59 ; Status DC Potassium Bicarb/ Potassium Chloride 50 meq 50 meq ONCE ONCE PO Last administered on 07/25/16at 06:33; Start 07/25/16 at 06:00; Stop 07/25/16 at 06:01 ; Status DC Vancomycin HCl/ Sodium Chloride (Vancomycin Inj/ NS 250 ml Inj) 275 ml @ 250 mls/hr Q18H IV Last administered on 08/16/16at 16:56; Start 07/25/16 at 23:00; Stop 08/16/16 at 23:00; Status DC Miscellaneous Information SPECIFIC LAB TO BE DRAWN:VANCOMYCIN TROUGH DATE TO... ONCE ONCE XX Last administered on 07/28/16at 04:45; Start 07/28/16 at 04:45; Stop 07/28/16 at 04:46; Status DC Erythromycin (Ilotycin 0.5% Opth Oint) 1 applic Q8HR LEFT EYE Last administered on 08/24/16at 12:51; Start 07/25/16 at 22:00; Stop 08/28/16 at 10:28 ; Status DC Prednisolone Acetate (Pred Forte 1% Opth Susp) 1 drop BID LEFT EYE Last administered on 08/24/16at 09:00; Start 07/25/16 at 21:00; Stop 08/28/16 at 10:28 ; Status DC Valacyclovir HCl (Valtrex) 1,000 mg Q8HR PO Last administered on 08/04/16at 13: 06; Start 07/25/16 at 15:00; Stop 08/04/16 at 14:59; Status DC Alprazolam (Xanax) 0.25 mg Q4H PRN PO anxiety; Start 07/26/16 at 14:00; Stop 08/12/16 at 11:19; Status DC Alprazolam (Xanax) 0.25 mg Q8HR PO Last administered on 10/13/16at 06:11; Start 07/26/16 at 14:00 Methadone HCl (Dolophine) 5 mg Q12HR PO Last administered on 08/10/16at 09:56; Start 07/26/16 at 21:00; Stop 08/10/16 at 12:43; Status DC Vancomycin HCl 500 mg 500 mg QID PO Last administered on 08/02/16at 09:14; Start 07/26/16 at 18:00; Stop 08/02/16 at 12:44; Status DC Fluconazole/ Sodium Chloride (Diflucan 400 Mg Premix Bag) 200 ml @ 100 mls/hr Q24H IV Last administered on 08/03/16at 17:59; Start 07/26/16 at 14:00; Stop 08/04/16 at 09:55; Status DC Miscellaneous Information SPECIFIC LAB TO BE ANDREA... ONCE ONCE XX Last administered on 07/30/16at 10:45; Start 07/30/16 at 10:45; Stop 07/30/16 at 10:46 ; Status DC Potassium Chloride (KCl) 20 meq ONCE ONCE PO Last administered on 07/29/16at 13 :59; Start 07/29/16 at 13:45; Stop 07/29/16 at 13:46; Status DC Mirtazapine (Remeron Soltab Odt) 15 mg HS PO Last administered on 10/12/16at 20 :25; Start 07/29/16 at 21:00 Miscellaneous Medication 1 1 UNSCH X1 PRN XX PHARMACY DOCUMENTATION; Start 08/06 at 13:00; Stop 07/31/16 at 18:00; Status DC Ertapenem/Sodium Chloride (INVanz INJ/NS Inj) 100 ml @ 200 mls/hr Q24H IV Last administered on 08/13/16at 14:12; Start 07/31/16 at 14:00; Stop 08/13/16 at 23:00; Status DC Calamine (Calamine Lotion) 1 applic Q8H PRN TOPICAL ITCHING Last administered on 08/06/16at 11:22; Start 07/31/16 at 13:30; Stop 08/19/16 at 08:32; Status DC Zinc Sulfate (Zinc Sulfate) 220 mg DAILY PO Last administered on 08/18/16at 15: 14; Start 08/04/16 at 11:00; Stop 08/19/16 at 08:32; Status DC Megestrol Acetate (Megace Liq) 800 mg DAILY PO Last administered on 10/08/16at 10:09; Start 08/04/16 at 12:00; Stop 10/08/16 at 20:01; Status DC Miscellaneous Information SPECIFIC LAB TO BE ANDREA... ONCE ONCE XX Last administered on 08/06/16at 05:27; Start 08/06/16 at 04:45; Stop 08/06/16 at 04 :46; Status DC Methadone HCl (Dolophine) 2.5 mg Q12HR PO Last administered on 08/13/16at 08:39 ; Start 08/10/16 at 21:00; Stop 08/13/16 at 14:27; Status DC Loperamide HCl (Imodium Liq) 4 mg ONCE ONCE PO Last administered on at 14:23; Start 08/13/16 at 14:00; Stop 08/13/16 at 14:01; Status DC Hydrochlorothiazide (Microzide) 12.5 mg DAILY PO ; Start 08/13/16 at 14:00; Stop 08/13/16 at 14:13; Status DC Mupirocin (Bactroban 2% Oint) 1 applic Q12HR TOPICAL Last administered on 10/06at 08:19; Start 08/13/16 at 21:00; Stop 10/06/16 at 13:27; Status DC Zinc Oxide (Desitin 40% Oint) 1 applic UNSCH PRN TOPICAL DIAPER RASH Last administered on 08/28/16at 20:59; Start 08/13/16 at 14:15 Lisinopril (Prinivil) 20 mg DAILY PO Last administered on 08/16/16at 09:53; Start 08/13/16 at 15:00; Stop 08/16/16 at 14:44; Status DC Methadone HCl (Dolophine) 2.5 mg DAILY PO Last administered on 08/19/16at 08:26 ; Start 08/14/16 at 09:00; Stop 08/20/16 at 08:17; Status DC Potassium Chloride (KCl) 30 meq ONCE ONCE PO Last administered on 08/14/16at 12:44; Start 08/14/16 at 12:45; Stop 08/14/16 at 12:46; Status DC Cholestyramine Resin 4 gm 4 gm Q12H PO ; Start 08/14/16 at 23:00; Stop at 08:32; Status DC Sodium Chloride (NS 500 ml Inj) 500 ml @ 500 mls/hr BOLUS ONCE IV Last administered on 08/15/16at 15:15; Start 08/15/16 at 15:15; Stop 08/15/16 at 16 :14; Status DC Lisinopril 40 mg 40 mg DAILY PO Last administered on 10/07/16at 10:37; Start 08/17/16 at 09:00; Stop 10/08/16 at 20:01; Status DC Multivitamins/ Folic Acid/Amino Acid Electrolyte w/ Calc (Mvi-12 Inj/ Folvite Inj/ Clinimix E 03/15) 2,010.2 ml @ 60 mls/hr Q24H IV-CENTRAL Last administered on 08/18/16at 15:19; Start 08/18/16 at 10:00; Stop 08/19/16 at 11 :49; Status DC Acetaminophen/ Hydrocodone Bitart ([place] 5-325 Mg) 1 tab Q6H PRN PO PAIN SCALE 6 TO 10 Last administered on 08/20/16at 20:26; Start 08/18/16 at 11:30; Stop 08/21/16 at 08:14; Status DC Loperamide HCl 2 mg 2 mg UNSCH PRN PO DIARRHEA Last administered on 09/07/16at 20:24; Start 08/19/16 at 08:30; Stop 09/08/16 at 14:24; Status DC Multivitamins/ Folic Acid/Amino Acid Electrolyte w/ Calc (Mvi-12 Inj/ Folvite Inj/ Clinimix E 03/15) 2,010.2 ml @ 60 mls/hr Q24H IV-CENTRAL Last administered on 10/05/16at 20:29; Start 08/19/16 at 20:00; Stop 10/06/16 at 09 :22; Status DC Tramadol HCl (Ultram) 50 mg Q6H PRN PO PAIN SCALE 6 TO 10 Last administered on 08/30/16at 23:20; Start 08/21/16 at 08:15; Stop 08/31/16 at 08:52; Status DC Ibuprofen (Motrin) 400 mg Q8H PRN PO PAIN SCALE 1 TO 5 Last administered on at 02:22; Start 08/21/16 at 08:45; Stop 10/08/16 at 20:01; Status DC Diphenoxylate HCl/ Atropine (Lomotil Tab) 2 tab BID PRN PO diarrhea Last administered on 10/08/16at 10:12; Start 08/24/16 at 19:00 Tramadol HCl (Ultram) 50 mg Q8HR PRN PO PAIN SCALE 6 TO 10 Last administered on 10/07/16at 22:03; Start 08/31/16 at 14:00; Stop 10/08/16 at 20:01; Status DC Diltiazem HCl (Cardizem Cd) 180 mg DAILY PO Last administered on 09/15/16at 10: 30; Start 09/01/16 at 09:00; Stop 09/15/16 at 11:11; Status DC Zinc Sulfate (Zinc Sulfate) 220 mg DAILY PO Last administered on 10/13/16at 08: 14; Start 09/04/16 at 09:00 Clotrimazole 1 applic 1 applic Q12HR TOPICAL Last administered on 09/20/16at 08 :29; Start 09/06/16 at 21:00; Stop 09/20/16 at 21:00; Status DC Sodium Chloride 1,000 ml @ 500 mls/hr Q2H IV ; Start 09/07/16 at 19:00; Stop 09/07/16 at 19:19; Status DC Sodium Chloride (NS 1000 ml Inj) 1,000 ml @ 500 mls/hr BOLUS ONCE IV Last administered on 09/07/16at 19:15; Start 09/07/16 at 19:15; Stop 09/07/16 at 21 :14; Status DC Loperamide HCl (Imodium) 2 mg TID PRN PO DIARRHEA Last administered on at 10:10; Start 09/08/16 at 18:00; Stop 10/08/16 at 20:01; Status DC Morphine Sulfate (Morphine Inj) 4 mg Q4H PRN IV breakthrough pain; Start 09/10 at 10:00; Stop 09/10/16 at 12:53; Status DC Naloxone HCl 0.4 mg 0.4 mg UNSCH PRN IV SEE LABEL COMMENTS; Start 09/10/16 at 10:00; Stop 10/08/16 at 15:03; Status DC Ceftazidime/ Avibactam/Sodium Chloride (Avycaz Inj/NS Inj) 50 ml @ 25 mls/hr Q8H IV ; Start 09/10/16 at 10:15; Stop 09/10/16 at 11:04; Status DC Ertapenem 1000 mg 1,000 mg DAILY IM ; Start 09/10/16 at 11:00; Status UNV Ceftazidime/ Sodium Chloride (Fortaz Inj/NS Inj) 100 ml @ 200 mls/hr Q8H IV Last administered on 09/11/16at 04:16; Start 09/10/16 at 13:00; Stop 09/11/16 at 07:24; Status DC Hydromorphone HCl 0.5 mg 0.5 mg Q4H PRN IV BREAKTHROUGH PAIN Last administered on 09/12/16at 08:24; Start 09/10/16 at 13:00; Stop 09/12/16 at 09:05; Status DC Sodium Chloride (NS 1000 ml Inj) 1,000 ml @ 100 mls/hr Q10H IV Last administered on 09/13/16at 05:46; Start 09/11/16 at 13:00; Stop 09/13/16 at 07 :57; Status DC Duloxetine HCl (Cymbalta Dr) 30 mg DAILY PO Last administered on 10/12/16at 09: 14; Start 09/14/16 at 09:00 Diltiazem HCl (Cardizem Cd) 240 mg DAILY PO Last administered on 10/08/16at 10: 10; Start 09/16/16 at 09:00; Status Hold Gabapentin (Neurontin) 100 mg TID PO Last administered on 10/06/16at 08:17; Start 09/15/16 at 18:00; Stop 10/06/16 at 11:47; Status DC Gabapentin (Neurontin) 300 mg TID PO Last administered on 10/09/16at 13:39; Start 10/06/16 at 13:00; Status Hold Alprazolam 0.25 mg 0.25 mg ONCE ONCE PO Last administered on 10/07/16at 22:41 ; Start 10/07/16 at 22:30; Stop 10/07/16 at 22:35; Status DC Sodium Chloride 1,000 ml @ 2,000 mls/hr Q30M IV ; Start 10/08/16 at 10:00; Stop 10/08/16 at 10:06; Status DC Sodium Chloride 1,000 ml @ 1,000 mls/hr Q60M IV Last administered on at 11:55; Start 10/08/16 at 10:10; Stop 10/08/16 at 12:09; Status DC Fat Emulsion Intravenous 250 ml @ 31.25 mls/ hr SuWe@20 IV-CENTRAL Last administered on 10/11/16at 20:04; Start 10/08/16 at 20:00 Multivitamins/ Folic Acid/Amino Acids/ Electrolytes/ Dextrose (Mvi-12 Inj/ Folvite Inj/ Clinimix E 5/25) 2,010.2 ml @ 60 mls/hr Q24H IV-CENTRAL Last administered on 10/12/16at 20:18; Start 10/08/16 at 20:00 Metoclopramide HCl (Reglan Inj) 5 mg Q8H PRN IV PUSH NAUSEA/VOMITING; Start at 10:45; Stop 10/08/16 at 20:01; Status DC Ondansetron HCl (Zofran Inj) 4 mg Q6HR PRN IV PUSH NAUSEA/VOMITING Last administered on 10/08/16at 12:07; Start 10/08/16 at 12:00 Morphine Sulfate 4 mg 4 mg ONCE ONCE IV PUSH ; Start 10/08/16 at 12:00; Stop 10/08/16 at 12:00; Status DC Vancomycin HCl 1250 mg/Sodium Chloride 262.5 ml @ 262.5 mls/ hr ONCE ONCE IV Last administered on 10/08/16at 12:58; Start 10/08/16 at 13:00; Stop 10/08/16 at 13:59; Status DC Piperacillin Sod/ Tazobactam Sod 100 ml @ 200 mls/hr Q8H IV ; Start 10/08/16 at 11:15; Stop 10/08/16 at 11:33; Status DC Norepinephrine Bitartrate (Levophed-Dextrose Drip) 250 ml @ 0 mls/hr TITRATE IV ; Start 10/08/16 at 12:00; Stop 10/11/16 at 20:38; Status DC Terbutaline Sulfate 1 mg 1 mg UNSCH PRN SQ For Extravasation; Start 10/08/16 at 11:15; Stop 10/08/16 at 20:01; Status DC Sodium Chloride 1,000 ml @ 300 mls/hr Q3H20M IV Last administered on at 12:57; Start 10/08/16 at 12:00; Stop 10/08/16 at 15:00; Status DC Cefepime HCl/ Sodium Chloride (Maxipime Inj/NS Inj) 100 ml @ 200 mls/hr Q24H IV Last administered on 10/08/16at 11:55; Start 10/08/16 at 12:00; Stop 10/09 at 12:43; Status DC Iohexol (Omnipaque 350 Inj) 85 ml STK-MED ONCE IV Last administered on at 11:28; Start 10/08/16 at 11:28; Stop 10/08/16 at 20:01; Status DC Hydromorphone HCl 0.5 mg 0.5 mg Q4H PRN IV PUSH PAIN SCALE 5 TO 10 Last administered on 10/08/16at 12:07; Start 10/08/16 at 12:00; Stop 10/08/16 at 20 :01; Status DC Magnesium Sulfate/ Dextrose 100 ml @ 100 mls/hr Q1H IV ; Start 10/08/16 at 12: 00; Stop 10/08/16 at 13:59; Status DC Sodium Chloride (NS 1000 ml Inj) 1,000 ml @ 40 mls/hr Q24H IV Last administered on 10/10/16at 10:09; Start 10/08/16 at 15:00 IV Flush (NS Flush) 2 ml UNSCH PRN IVF FLUSH AFTER USING IV ACCESS; Start at 14:45 IV Flush (NS Flush) 2 ml BID IVF Last administered on 10/12/16at 20:19; Start 10/08/16 at 21:00 Miscellaneous Information (Post-op Orders (for Pharmacy)) STAT ONCE XX ; Start 10/08/16 at 14:45; Stop 10/08/16 at 20:00; Status DC Naloxone HCl (Narcan Inj) 0.4 mg UNSCH PRN IV SEE LABEL COMMENTS; Start at 14:45 Enoxaparin Sodium 40 mg 40 mg Q24H SQ Last administered on 10/12/16at 18:04; Start 10/09/16 at 18:41 Prothrombin Complex Concent (Human)/Syringe / Bag (Kcentra Inj/ Syringe/Bag) 0 ml @ 8 mls/min ONCE ONCE IV Last administered on 10/08/16at 15:00; Start at 15:00; Stop 10/08/16 at 15:01; Status DC Bupivacaine HCl/ Epinephrine Bitart (Sensorcaine-Epinephrine Pf 0.5% Inj) 30 ml STK-MED ONCE .ROUTE ; Start 10/08/16 at 15:00; Stop 10/08/16 at 15:01; Status DC Albumin Human (Albumin 5% Inj) 12.5 gm STK-MED ONCE IV ; Start 10/08/16 at 15: 09; Stop 10/08/16 at 15:10; Status DC Ketamine HCl (Ketalar Inj) 500 mg STK-MED ONCE .ROUTE ; Start 10/08/16 at 15:12 ; Stop 10/08/16 at 15:13; Status DC Midazolam HCl (Versed Inj) 2 mg STK-MED ONCE .ROUTE ; Start 10/08/16 at 16:36; Stop 10/08/16 at 20:01; Status DC Midazolam HCl 2 mg 2 mg STK-MED ONCE .ROUTE ; Start 10/08/16 at 16:37; Stop at 20:01; Status DC Magnesium Sulfate/ Dextrose 100 ml @ As Directed STK-MED ONCE .ROUTE ; Start 10/08/16 at 17:31; Stop 10/08/16 at 17:32; Status DC Propofol 100 ml @ As Directed STK-MED ONCE .ROUTE ; Start 10/08/16 at 19:51; Stop 10/08/16 at 19:52; Status DC Norepinephrine Bitartrate (Levophed-Dextrose Drip) 250 ml @ 0 mls/hr TITRATE IV ; Start 10/08/16 at 20:15; Stop 10/08/16 at 20:25; Status DC Terbutaline Sulfate 1 mg 1 mg UNSCH PRN SQ For Extravasation; Start 10/08/16 at 20:15; Stop 10/08/16 at 20:25; Status DC Propofol 100 ml @ 0 mls/hr TITRATE IV Last administered on 10/10/16at 02:08; Start 10/08/16 at 20:15; Stop 10/11/16 at 20:38; Status DC Vancomycin HCl/ Sodium Chloride (Vancomycin Inj/ NS 250 ml Inj) 250 ml @ 250 mls/hr ONCE ONCE IV Last administered on 10/08/16at 22:07; Start 10/08/16 at 21:00; Stop 10/08/16 at 21:59; Status DC Midazolam HCl (Versed Inj) 2 mg STK-MED ONCE .ROUTE ; Start 10/08/16 at 20:15; Stop 10/08/16 at 20:16; Status DC Fentanyl Citrate 250 mcg 250 mcg STK-MED ONCE .ROUTE ; Start 10/08/16 at 20:16 ; Stop 10/08/16 at 20:17; Status DC Pharmacy Profile Note ml @ 0 mls/hr UNSCH OTHER ; Start 10/08/16 at 20:30 Vancomycin HCl 750 mg/Sodium Chloride 257.5 ml @ 250 mls/hr ONCE ONCE IV ; Start 10/08/16 at 22:00; Stop 10/08/16 at 23:01; Status DC Fluconazole/ Sodium Chloride (Diflucan 200 Mg Premix Bag) 100 ml @ 100 mls/hr Q24H IV Last administered on 10/11/16at 22:04; Start 10/08/16 at 22:00; Stop 10/11/16 at 22:39; Status DC Sodium Bicarbonate 200 meq 200 meq NOW ONCE IV Last administered on at 21:00; Start 10/08/16 at 21:00; Stop 10/08/16 at 21:01; Status DC Metronidazole (Flagyl 500 Mg Inj) 100 ml @ 100 mls/hr Q8H IV Last administered on 10/13/16at 06:11; Start 10/08/16 at 22:00 Pantoprazole Sodium 40 mg 40 mg Q24H IV PUSH Last administered on 10/12/16at 20 :26; Start 10/08/16 at 22:00 Calcium Chloride 2 gm/Sodium Chloride 120 ml @ 120 mls/hr ONCE ONCE IV Last administered on 10/08/16at 23:28; Start 10/08/16 at 23:00; Stop 10/08/16 at 23 :59; Status DC Fentanyl Citrate (fentaNYL DRIP) 250 ml @ 0 mls/hr TITRATE IV Last administered on 10/10/16at 09:50; Start 10/09/16 at 03:15; Stop 10/11/16 at 10 :01; Status DC Dextrose (D50w (Vial) Inj) 25 ml UNSCH PRN IV PUSH HYPOGLYCEMIA-SEE COMMENTS; Start 10/09/16 at 03:15 Glucagon (Glucagon Inj) 1 mg UNSCH PRN OTHER HYPOGLYCEMIA-SEE COMMENTS; Start 10/09/16 at 03:15 Insulin Aspart (NovoLOG SUPPLEMENTAL SCALE) 1 Q6H SQ Last administered on 10/13at 03:13; Start 10/09/16 at 03:15 Chlorhexidine Gluconate (Peridex 0.12% Liq) 15 ml BID@08,20 MT Last administered on 10/13/16at 08:12; Start 10/09/16 at 08:00 Albuterol/ Ipratropium 1 ampule 1 ampule Q6HR NEB NEB Last administered on at 04:00; Start 10/09/16 at 10:00 Vancomycin HCl/ Sodium Chloride (Vancomycin Inj/ NS 250 ml Inj) 250 ml @ 250 mls/hr Q24H IV Last administered on 10/11/16at 22:59; Start 10/09/16 at 22:00 ; Stop 10/12/16 at 10:28; Status DC Miscellaneous Information SPECIFIC LAB TO BE ANDREA... ONCE ONCE XX Last administered on 10/11/16at 22:59; Start 10/11/16 at 21:45; Stop 10/11/16 at 21 :46; Status DC Miscellaneous Medication (ASP Crit: Doc ESBL, MDR A baumannii or P aer) 1 UNSCH X1 PRN XX PHARMACY DOCUMENTATION; Start 10/09/16 at 12:45; Stop 10/10/16 at 12:44; Status DC Miscellaneous Medication 1 1 UNSCH X1 PRN XX PHARMACY DOCUMENTATION; Start at 12:45; Stop 10/10/16 at 12:44; Status DC Meropenem/Sodium Chloride (Merrem Inj/NS Inj) 100 ml @ 200 mls/hr Q12H IV Last administered on 10/10/16at 02:08; Start 10/09/16 at 14:00; Stop 10/10/16 at 14:20; Status DC Enoxaparin Sodium (Lovenox Inj) 30 mg Q24H SQ Last administered on 10/09/16at 14:45; Start 10/09/16 at 15:00; Stop 10/10/16 at 12:06; Status DC Propofol (Diprivan 200 Mg/20 ml Inj) 200 mg STK-MED ONCE IV ; Start 10/08/16 at 12:00; Stop 10/09/16 at 13:21; Status DC Phenylephrine HCl 1000 mcg 1,000 mcg STK-MED ONCE IV ; Start 10/08/16 at 12:00 ; Stop 10/09/16 at 13:21; Status DC Parenteral Electrolytes 4,000 ml @ As Directed STK-MED ONCE IV ; Start at 12:00; Stop 10/09/16 at 13:21; Status DC Lactated Ringer's (Lr 1000 ml Inj) 1,000 ml @ 999 mls/hr BOLUS ONCE IV Last administered on 10/10/16at 05:48; Start 10/10/16 at 05:45; Stop 10/10/16 at 06 :45; Status DC Metoprolol Tartrate (Lopressor Inj) 5 mg STK-MED ONCE .ROUTE ; Start 10/10/16 at 08:26; Stop 10/10/16 at 08:27; Status DC Adenosine (Adenocard Inj) 6 mg STK-MED ONCE .ROUTE ; Start 10/10/16 at 08:29; Stop 10/10/16 at 08:30; Status DC Metoprolol Tartrate (Lopressor Inj) 5 mg STK-MED ONCE .ROUTE ; Start 10/10/16 at 08:29; Stop 10/10/16 at 08:30; Status DC Albumin Human (Albumin 5% Inj) 12.5 gm NOW ONCE IV ; Start 10/10/16 at 09:00; Stop 10/10/16 at 09:01; Status Cancel Albumin Human 12.5 gm 12.5 gm ONCE STAT IV Last administered on 10/10/16at 09: 39; Start 10/10/16 at 08:57; Stop 10/10/16 at 08:58; Status DC Sodium Chloride (NS 1000 ml Inj) 1,000 ml @ 999 mls/hr BOLUS ONCE IV Last administered on 10/10/16at 09:30; Start 10/10/16 at 10:00; Stop 10/10/16 at 11 :00; Status DC Adenosine (Adenocard Inj) 6 mg ONCE ONCE IV PUSH ; Start 10/10/16 at 09:15; Stop 10/10/16 at 09:16; Status UNV Metoprolol Tartrate (Lopressor Inj) 5 mg ONCE ONCE IV PUSH Last administered on 10/10/16at 10:23; Start 10/10/16 at 10:00; Stop 10/10/16 at 10:01; Status DC Metoprolol Tartrate (Lopressor Inj) 5 mg ONCE ONCE IV PUSH Last administered on 10/10/16at 10:18; Start 10/10/16 at 08:30; Stop 10/10/16 at 09:49; Status DC Adenosine (Adenocard Inj) 6 mg ONCE ONCE IV PUSH Last administered on at 10:14; Start 10/10/16 at 08:30; Stop 10/10/16 at 09:49; Status DC Furosemide 20 mg 20 mg NOW ONCE IV PUSH Last administered on 10/10/16at 13:47 ; Start 10/10/16 at 12:00; Stop 10/10/16 at 12:01; Status DC Magnesium Sulfate/ Dextrose (Magnesium Sulfate 1 Gm Premix) 100 ml @ 100 mls/ hr Q1H IV Last administered on 10/10/16at 15:46; Start 10/10/16 at 12:00; Stop 10/10/16 at 13:59; Status DC Miscellaneous Information D/C ICU ELECTROLYTE ORDERS... UNSCH PRN XX SEE DOSE INSTRUCTIONS; Start 10/10/16 at 12:00 Miscellaneous Information ICU - CALL ORDERING PHYSIC... UNSCH PRN XX SEE DOSE INSTRUCTIONS; Start 10/10/16 at 12:00 Potassium Chloride (KCl 40 Meq Premix Inj) 100 ml @ 25 mls/hr UNSCH PRN IV ELECTROLYTE REPLACEMENT Last administered on 10/13/16at 06:53; Start 10/10/16 at 12:00 Potassium Chloride 40 meq 40 meq UNSCH PRN PO ELECTROLYTE REPLACEMENT Last administered on 10/11/16at 23:09; Start 10/10/16 at 12:00 Potassium Chloride 100 ml @ 50 mls/hr UNSCH PRN IV ELECTROLYTE REPLACEMENT Last administered on 10/11/16at 03:44; Start 10/10/16 at 12:00 Magnesium Sulfate 4 gm/Sodium Chloride 108 ml @ 54 mls/hr UNSCH PRN IV ELECTROLYTE REPLACEMENT; Start 10/10/16 at 12:00 Magnesium Sulfate/ Sodium Chloride (Magnesium Sulfate Inj/NS Inj) 104 ml @ 52 mls/hr UNSCH PRN IV ELECTROLYTE REPLACEMENT; Start 10/10/16 at 12:00 Magnesium Oxide 800 mg 800 mg UNSCH PRN PO ELECTROLYTE REPLACEMENT; Start at 12:00 Sodium Phosphate/ Sodium Chloride (Sodium Phosphate Inj/NS 250 ml Inj) 260 ml @ 43.333 mls/ hr UNSCH PRN IV ELECTROLYTE REPLACEMENT; Start 10/10/16 at 12:00 Potassium Phosphate 2000 mg 2,000 mg UNSCH PRN PO/TUBE ELECTROLYTE REPLACEMENT ; Start 10/10/16 at 12:00 Potassium Phosphate/Sodium Chloride (Potassium Phosphate Inj/NS 250 ml Inj) 260 ml @ 43.333 mls/ hr UNSCH PRN IV ELECTROLYTE REPLACEMENT Last administered on 10/11/16at 08:13; Start 10/10/16 at 12:00 Metoprolol Tartrate (Lopressor Inj) 5 mg Q6H IV PUSH Last administered on 10/13at 06:10; Start 10/10/16 at 13:00 Ondansetron HCl 4 mg 4 mg STK-MED ONCE IV PUSH ; Start 10/08/16 at 13:14; Stop 10/10/16 at 13:14; Status DC Meropenem/Sodium Chloride (Merrem Inj/NS Inj) 100 ml @ 200 mls/hr Q8H IV Last administered on 10/11/16at 13:11; Start 10/10/16 at 22:00; Stop 10/11/16 at 22 :40; Status DC Hydromorphone HCl (Dilaudid Pf Inj) 0.5 mg NOW ONCE IV Last administered on at 10:11; Start 10/11/16 at 10:00; Stop 10/11/16 at 10:01; Status DC Hydromorphone HCl (Dilaudid Pf Inj) 0.5 mg Q3H PRN IV PAIN Last administered on 10/13/16at 08:34; Start 10/11/16 at 12:00 Lorazepam (Ativan Inj) 0.5 mg Q4H PRN IV ANXIETY Last administered on at 09:13; Start 10/11/16 at 19:00 Metoprolol Tartrate (Lopressor Inj) 2.5 mg ONCE ONCE IV PUSH Last administered on 10/11/16at 22:58; Start 10/11/16 at 20:45; Stop 10/11/16 at 20 :46; Status DC Etomidate (Amidate Inj) 20 mg STK-MED ONCE .ROUTE ; Start 10/11/16 at 21:21; Stop 10/11/16 at 21:22; Status DC Rocuronium [place] (Zemuron Inj) 50 mg STK-MED ONCE .ROUTE ; Start 10/11/16 at 21:21; Stop 10/11/16 at 21:22; Status DC Furosemide 40 mg 40 mg ONCE ONCE IV PUSH Last administered on 10/11/16at 21:38 ; Start 10/11/16 at 21:30; Stop 10/11/16 at 21:35; Status DC Ceftriaxone Sodium 2000 mg/ Sodium Chloride 100 ml @ 200 mls/hr Q24H IV Last administered on 10/12/16at 22:06; Start 10/11/16 at 23:00 Potassium Chloride/Sodium Chloride (KCl Inj/NS Inj) 115 ml @ 38.333 mls/ hr Q3H IV-CENTRAL Last administered on 10/12/16at 03:37; Start 10/12/16 at 00:00 ; Stop 10/12/16 at 05:59; Status DC Enalaprilat (Vasotec Inj) 1.25 mg Q6H IV PUSH Last administered on 10/13/16at 06:10; Start 10/12/16 at 07:00 Furosemide 20 mg 20 mg BID@09,18 IV PUSH Last administered on 10/13/16at 08:13 ; Start 10/12/16 at 09:00 Vancomycin HCl/ Sodium Chloride (Vancomycin Inj/ NS 250 ml Inj) 250 ml @ 250 mls/hr Q18H IV Last administered on 10/13/16at 08:12; Start 10/12/16 at 14:00 Miscellaneous Information SPECIFIC LAB TO BE DRAWN:VANCOMYCIN TROUGH DATE TO... ONCE ONCE XX ; Start 10/14/16 at 19:45; Stop 10/14/16 at 19:46 Hydromorphone HCl (Dilaudid Pf Inj) 2 mg UNSCH PRN IV PRIOR TO DRESSING CHANGES ; Start 10/12/16 at 10:45 Date of Insertion: Jun 20, 2016 Side: Left A/P Assessment and Plan Acute respiratory failure - extubated 10/10 - DuoNeb every 6 hours. - Incentive spirometry Q1H while awake -continue lasix Ischemic colitis with perforation of transverse colon, - status post resection 5-6 inches of transverse colon with creation of ileostomy and colostomy (mucous fistula). - NG tube in right nare to low intermittent wall suction. - VERNA in place, monitor output. - Continue TPN - further per general surgery COPD - no exacerbation - no indication for steroids - continue Aerosols Depression - resumed home meds when OK with surgery to p.o. Peripheral neuropathy - status post left BKA - supportive care - management per vascular surgery Shock secondary to acute blood loss and sepsis - resolved - continue gentle i.v. fluids hydration Grade 1 diastolic dysfunction - strict BP control GERD - PPI i.v. Acute kidney injury - pre-renal - Hamlin in place. - Monitor intake and output. - avoid nephrotoxins. - Good urine output - Electrolyte replacement per ICU protocol hypokalemia replace as needed and will monitor. Septic shock - secondary to intrabdominal sepsis with mesenteric ischemia, bowel perforation and leak. - status post Exp lap, colectomy and colostomy - Continue Rocephin, Flagyl and Vanco - Follow-up blood culture 2 sets - Further ATB per ID Acute blood loss anemia - Bleeding noted at ileostomy/colostomy - resolved - Previously on Xarelto - continue to hold - Transfused 4 units PRBC 18 - H&H stable today Prophylaxis - lovenox/ PPI patient is ill-looking. will monitor closely in ICU. palliative care is following. low threshold for critical care reevaluation. Danny Thomas MD Oct 13, 2016 09:08
[2016-10-13] MEDS: HYDROmorphone HCL PF 2 MG/ML VIAL IV PRN ×2 (11:18→18:06)
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
[2016-10-13] MEDS: RIVAROXABAN 20 MG TAB PO SCH (14:27)
[2016-10-13] MEDS: SODIUM CHLOR 0.9% 1000 ML INJ 1,000 ML IV SCH (15:00)
[2016-10-13] MEDS: CLINIMIX E 5/25 2000 mL- >42 mls/hr IV-CENTRAL SCH ×3 (19:49)
[2016-10-13] MEDS: MIRTAZAPINE ODT 15 MG TAB PO SCH (20:18)
[2016-10-13] MEDS: PANTOPRAZOLE SODIUM 40 MG VIAL IV PUSH SCH (21:03)
[2016-10-13] MEDS: cefTRIAXone INJ 2,000 MG in SODIUM CHLORIDE 0.9% INJ 100 ML IV SCH (21:59)
--- NOTE | 2016-10-13 23:25 | HHI.IDPN ---
Subjective Subjective Remarks Delayed entry - Extubated remains on TPN off pressors cont to bleed thru mucoid fistula, less into colostomy Antibiotics Vancomycin cefepime flagyl Lines Port Past Medical History 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 Vital Signs Date Time Temp Pulse Resp B/P Pulse Ox O2 Delivery O2 Flow Rate FiO2 10/13/16 22:00 114 10/13/16 20:40 97 Nasal Cannula 4.00 10/13/16 20:00 98.2 114 21 122/58 96 10/13/16 20:00 108 10/13/16 19:00 94 Non-Rebreather 6.00 10/13/16 18:00 113 10/13/16 16:00 110 10/13/16 16:00 98.9 110 22 114/64 99 10/13/16 14:00 103 10/13/16 12:00 98.0 125 24 125/68 94 10/13/16 12:00 125 10/13/16 11:49 25 10/13/16 11:30 91 Nasal Cannula 6.00 10/13/16 10:00 123 10/13/16 09:27 95 Nasal Cannula 5.00 10/13/16 09:14 22 10/13/16 08:00 112 10/13/16 08:00 98.4 112 22 143/68 96 10/13/16 07:00 95 Nasal Cannula 2.00 10/13/16 06:00 116 10/13/16 04:00 99.8 111 24 123/66 97 10/13/16 04:00 111 10/13/16 02:00 108 10/13/16 00:00 124 10/13/16 00:00 99.0 124 24 123/69 99 10/12/16 10/12/1610/13/16 14:59 22:59 06:59 Intake Total 848 ml 1123 ml 795 ml Output Total 1250 ml 2505 ml 1282 ml Balance -402 ml -1382 ml -487 ml Intake Oral 0 ml 0 ml IV Total 848 ml 635 ml 350 ml TPN/PPN 488 ml 445 ml Output Urine Total 1250 ml 2350 ml 600 ml Gastric Drainage Total 475 ml Drainage Total 155 ml 207 ml # Bowel Movements 0 0 . Laboratory Tests Test 10/12/16 03:40 White Blood Count 7.8 TH/MM3 Red Blood Count 3.43 MIL/MM3 Hemoglobin 9.9 GM/DL Hematocrit 29.6 % Mean Corpuscular Volume 86.4 FL Mean Corpuscular Hemoglobin 29.0 PG Mean Corpuscular Hemoglobin 33.5 % Concent Red Cell Distribution Width 17.4 % Platelet Count 87 TH/MM3 Mean Platelet Volume 9.8 FL Neutrophils (%) (Auto) 57.2 % Lymphocytes (%) (Auto) 31.7 % Monocytes (%) (Auto) 7.0 % Eosinophils (%) (Auto) 3.2 % Basophils (%) (Auto) 0.9 % Neutrophils # (Auto) 4.5 TH/MM3 Lymphocytes # (Auto) 2.5 TH/MM3 Monocytes # (Auto) 0.5 TH/MM3 Eosinophils # (Auto) 0.2 TH/MM3 Basophils # (Auto) 0.1 TH/MM3 CBC Comment AUTO DIFF Differential Total Cells 100 Counted Neutrophils % (Manual) 40 % Band Neutrophils % 12 % Lymphocytes % 35 % Monocytes % 8 % Eosinophils % 4 % Neutrophils # (Manual) 4.1 TH/MM3 Myelocytes 1 % Differential Comment FINAL DIFF MANUAL Platelet Estimate LOW Platelet Morphology Comment NORMAL Laboratory Tests Test 10/12/16 10/13/16 10/13/16 03:40 05:47 20:00 Sodium Level 147 MEQ/L 144 MEQ/L Potassium Level 3.6 MEQ/L 2.8 MEQ/L 3.4 MEQ/L Chloride Level 111 MEQ/L 105 MEQ/L Carbon Dioxide Level 26.8 MEQ/L 30.8 MEQ/L Anion Gap 9 MEQ/L 8 MEQ/L Blood Urea Nitrogen 18 MG/DL 19 MG/DL Creatinine 0.83 MG/DL 0.71 MG/DL Estimat Glomerular Filtration 68 ML/MIN 81 ML/MIN Rate Random Glucose 195 MG/DL 181 MG/DL Calcium Level 8.0 MG/DL 8.2 MG/DL Phosphorus Level 2.9 MG/DL Magnesium Level 1.4 MG/DL Total Bilirubin 0.7 MG/DL Aspartate Amino Transf 15 U/L (AST/SGOT) Alanine Aminotransferase 31 U/L (ALT/SGPT) Alkaline Phosphatase 92 U/L Total Protein 5.3 GM/DL Albumin 1.8 GM/DL Microbiology Date/Time Procedure Status Source Growth 10/12/16 03:42 Aerobic Blood Culture - Preliminary Resulted Blood Peripheral NO GROWTH IN 1 DAY 10/12/16 03:42 Anaerobic Blood Culture - Preliminary Resulted Blood Peripheral NO GROWTH IN 1 DAY 10/12/16 03:42 Aerobic Blood Culture - Preliminary Resulted Blood Peripheral NO GROWTH IN 1 DAY 10/12/16 03:42 Anaerobic Blood Culture - Preliminary Resulted Blood Peripheral NO GROWTH IN 1 DAY Imaging Last Impressions Chest X-Ray 10/12/16 0600 Signed Impressions: Service Date/Time: September 05:39 - CONCLUSION: No significant change bibasilar consolidation. Interim extubation. Other lines and tubes unchanged, as above. Calixto Woodruff MD Abdomen/Pelvis CT 10/08/16 1057 Signed Impressions: Service Date/Time: Saturday, October 08, 2016 11:14 - CONCLUSION: 1. Findings very suspicious for ischemic colon. Postsurgical findings with evidence of prior colectomy. There is evidence of bowel wall pneumatosis of the transverse colon in the region of anastomosis. Adjacent small bubbles of extraluminal gas but may be within the portal venous system or free also noted. These findings are highly suspicious for ischemic colon. 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 2. Marked nonspecific distention of the stomach. Alexandru Lynch MD Liver Ultrasound 07/12/16 0000 Signed Impressions: Service Date/Time: Tuesday, July 12, 2016 18:07 - CONCLUSION: 1. No acute abnormality demonstrated. 2. Heterogeneous liver without measurable mass. 3. Small and heterogeneous spleen without a measurable mass. 4. Cortical thinning and scarring of the right kidney. 5. Previous cholecystectomy. Calixto Woodruff MD Chest CT 07/09/16 0000 Signed Impressions: Service Date/Time: Saturday, July 09, 2016 14:43 - CONCLUSION: 1. Small right pleural effusion and minimal right basilar consolidation. 2. 6 mm left basilar nodule. Followup CT chest 6 months recommended. Florian Pepper MD Lower Extremity Ultrasound 06/25/16 0000 Signed Impressions: Service Date/Time: Saturday, June 25, 2016 15:56 - CONCLUSION: Negative exam with no evidence of deep venous thrombosis. Soft tissue edema. Mike Leija MD Port Line Insertion 06/20/16 0000 Signed Impressions: Service Date/Time: Monday, June 20, 2016 08:53 - CONCLUSION: Uncomplicated ultrasound and fluoroscopic guided implanted central venous port catheter placement as described in detail above. An 8 La[employer] Power port was placed. Kevan Salgado Jr., MD Physical Exam CONSTITUTIONAL/GENERAL: lethargic and very confused TUBES/LINES/DRAINS: PORT in place L chest , no skin changes New ly placed R IJ SKIN: No jaundice, rashes, or lesions. Skin temperature appropriate. Not diaphoretic. HEAD: Atraumatic. Normocephalic. EYES: Pupils equal and round and reactive. Extraocular motions intact. No scleral icterus. No injection or drainage. Fundi not examined. ENT: Oral mucosae without visible erythema, exudates, masses, or lesions. CARDIOVASCULAR: Regular rate and rhythm without murmurs, gallops, or rubs. No JVD. RESPIRATORY/CHEST: Symmetric, unlabored respirations. Clear to auscultation. Breath sounds equal bilaterally. No wheezes, rales, or rhonchi. GASTROINTESTINAL: Abdomen with VAC in place with serosang d/c; some erythem present markedly distended + tender to palpation: grimacin very hypoactive BS Mucoid fistula in LLQ with dark blood present and ileostomy in RLQ with dark liquid stool GENITOURINARY: Without palpable bladder distension. Hamlin catheter in place with clear yellow urine MUSCULOSKELETAL: Extremities without clubbing, cyanosis, + 1 edema. Well healed L BKA No mottling or clubbing. NEUROLOGICAL: lethargic more arousable PSYCHIATRIC: Unav]ble to assess 2/2 mental status Assessment & Plan Remarks IMPRESSION ischemic bowel, perforation sp emergent resection 10/08 Sepsis 2/2 ischemic bowel and perforation lorenzo S Kleb pneumo bacteremia staph epi bacteremia, ? clin significance Recent h/o Infection LBKA stump, C/S Klebsiella ESBL+ and Morganella Multiple Abx allergy - has tolerated Ertapenem and Cephalosporins in the past PVD Recent Staph hominis sepsis, has MV vegetation sp tx with vancomycvin RECOMMENDATION cont rocephin cont flagyl Continue Vancomycin if repeat BC negative @ 3-5 days will dc vancomycin Roxana Anthony RN, MD Oct 13, 2016 23:25
[2016-10-14] VITALS (12 sets, daily range): BP systolic 112–117; BP diastolic 55–71; PULSE 99–114; RESP 18–27; TEMP 98.1–98.8; O2SAT 92–98
[2016-10-14] MEDS: ICU - POTASSIUM CHLORIDE/AQUEOUS SOLN 40 MEQ/100 ML IVPB IV PRN (00:15)
[2016-10-14] MEDS: HYDROmorphone HCL PF 1 MG/ML VIAL IV PRN ×7 (00:16→21:05)
[2016-10-14] MEDS: METOPROLOL TARTRATE 5 MG/5 ML VIAL IV PUSH SCH ×4 (01:00→19:19)
[2016-10-14] MEDS: ENALAPRILAT 1.25 MG/ML VIAL IV PUSH SCH ×4 (01:00→20:12)
[2016-10-14] MEDS ORDERED: VANCOMYCIN INJ 1,250 MG in SODIUM CHLOR 0.9% 250 ML INJ 250 ML IV SCH ×2 (02:00→20:00)
[2016-10-14] MEDS: INSULIN ASPART SUPPLEMENTAL SCALE SQ SCH ×4 (03:38→21:04)
[2016-10-14] MEDS: ALPRAZolam 0.25 MG TAB PO SCH ×3 (06:09→21:04)
[2016-10-14] MEDS: metroNIDAZOLE 500 MG INJ 100 ML IV SCH ×3 (06:09→21:06)
[2016-10-14 06:57] LABS: AUTOMATED NEUTROPHIL # 7.3 TH/MM3 (1.8-7.7); BASOPHIL # 0.1 TH/MM3 (0-0.2); BASOPHIL % 0.5 % (0.0-2.0); EOSINOPHIL # 0.4 TH/MM3 (0-0.4); EOSINOPHIL % 3.2 % (0.0-4.0); HEMATOCRIT 28.4 % (35.0-46.0); HEMO FLAGS DIFF FINAL; LYMPH % 20.4 % (9.0-44.0); LYMPHOCYTE # 2.3 TH/MM3 (1.0-4.8); MEAN CELL VOLUME 87.1 FL (80.0-100.0); MEAN CORPUSCULAR HEMOGLOBIN 28.7 PG (27.0-34.0); MEAN CORPUSCULAR HGB CONC 32.9 % (32.0-36.0); MONO % 10.9 % (0.0-8.0); PLATELET COUNT 189 TH/MM3 (150-450); RED BLOOD COUNT 3.26 MIL/MM3 (4.00-5.30); RED CELL DISTRIBUTION WIDTH 16.5 % (11.6-17.2); WHITE BLOOD COUNT 11.2 TH/MM3 (4.0-11.0)
[2016-10-14 07:17] LABS: BICARBONATE 29.9 MEQ/L (21.0-32.0); POTASSIUM 3.9 MEQ/L (3.5-5.1)
[2016-10-14] MEDS: CHLORHEXIDINE 0.12% (ORAL KIT) 15 ML CUP MT SCH ×2 (08:00→20:12)
[2016-10-14] MEDS: FUROSEMIDE 20 MG/2 ML VIAL IV PUSH SCH ×2 (08:47→17:53)
[2016-10-14] MEDS: DULoxetine HCl DR 30 MG CAP PO SCH (08:48)
[2016-10-14] MEDS: SODIUM CHLORIDE 0.9% FLUSH 5 ML FLUSH IVF SCH ×2 (08:48→20:25)
[2016-10-14] MEDS: FERROUS SULFATE 325 MG (65 MG ELEMENTAL IRON) TAB PO SCH (08:48)
[2016-10-14] MEDS: RIVAROXABAN 20 MG TAB PO SCH (08:49)
[2016-10-14] MEDS: MULTIVITAMIN TAB PO SCH (08:49)
[2016-10-14] MEDS: CALCIUM/VITAMIN D 250 MG/125 U TAB PO SCH ×2 (08:49→20:11)
[2016-10-14] MEDS: CALCITRIOL 0.25 MCG CAP PO SCH (08:57)
[2016-10-14] MEDS: ZINC SULFATE 220 MG CAP PO SCH (09:11)
[2016-10-14] MEDS: NYSTATIN 100,000 U/GM PWD 15 GM BTL TOPICAL SCH ×2 (09:12→21:06)
[2016-10-14] MEDS: ONDANSETRON HCL 4 MG/2 ML VIAL IV PUSH PRN (09:46)
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
[2016-10-14] MEDS: SODIUM CHLOR 0.9% 1000 ML INJ 1,000 ML IV SCH (15:00)
[2016-10-14] MEDS: OXYBUTYNIN CHLORIDE 5 MG TAB PO SCH ×2 (15:42→21:05)
--- NOTE | 2016-10-14 17:13 | HHI.PR ---
Subjective Remarks fu ischemic colitis/respiratory failure Patient tachycardic denies cp/sob as per RN patient awake and alert, not confused denies fevers/chills c/o difuse abdominal pain denies nausea/vomiting Objective Vitals Vital Signs Date Time Temp Pulse Resp B/P Pulse Ox O2 Delivery O2 Flow Rate FiO2 10/14/16 16:00 98.4 109 19 117/63 92 10/14/16 16:00 109 10/14/16 14:00 113 10/14/16 12:23 21 10/14/16 12:00 98.2 110 21 115/60 95 10/14/16 12:00 110 10/14/16 10:00 107 10/14/16 08:01 96 Nasal Cannula 4.00 10/14/16 08:00 98.4 103 23 112/71 98 10/14/16 08:00 103 10/14/16 07:00 97 Nasal Cannula 6.00 10/14/16 04:00 98.8 110 25 114/57 96 10/14/16 00:00 114 10/14/16 00:00 98.6 114 27 112/55 96 10/13/16 22:00 114 10/13/16 20:40 97 Nasal Cannula 4.00 10/13/16 20:00 98.2 114 21 122/58 96 10/13/16 20:00 108 10/13/16 19:00 94 Non-Rebreather 6.00 10/13/16 18:00 113 I/O 10/13/16 10/13/16 10/13/16 10/14/16 10/14/16 10/14/16 06:59 14:59 22:59 06:59 14:59 22:59 Intake Total 795 ml 1180 ml 707 ml 772 ml 656 ml Output Total 1282 ml 2740 ml 1828 ml 990 ml 1385 ml Balance -487 ml -1560 ml -1121 ml -218 ml -729 ml Intake Oral 0 ml 0 ml 0 ml 0 ml IV Total 350 ml 682 ml 233 ml 426 ml 206 ml TPN/PPN 445 ml 498 ml 474 ml 346 ml 450 ml Output Urine Total 600 ml 1650 ml 1100 ml 425 ml 925 ml Stool Total 305 ml 230 ml 200 ml Gastric Drainage Total 475 ml 550 ml 100 ml 300 ml 0 ml Drainage Total 207 ml 540 ml 323 ml 35 ml 260 ml # Bowel Movements 0 0 0 Result Diagram: 10/14/16 0615 10/14/16 0615 Imaging Last Impressions Chest X-Ray 10/12/16 0600 Signed Impressions: Service Date/Time: September 05:39 - CONCLUSION: No significant change bibasilar consolidation. Interim extubation. Other lines and tubes unchanged, as above. Calixto Woodruff MD Abdomen/Pelvis CT 10/08/16 1057 Signed Impressions: Service Date/Time: Saturday, October 08, 2016 11:14 - CONCLUSION: 1. Findings very suspicious for ischemic colon. Postsurgical findings with evidence of prior colectomy. There is evidence of bowel wall pneumatosis of the transverse colon in the region of anastomosis. Adjacent small bubbles of extraluminal gas but may be within the portal venous system or free also noted. These findings are highly suspicious for ischemic colon. 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 2. Marked nonspecific distention of the stomach. Alexandru Lynch MD Liver Ultrasound 07/12/16 0000 Signed Impressions: Service Date/Time: Tuesday, July 12, 2016 18:07 - CONCLUSION: 1. No acute abnormality demonstrated. 2. Heterogeneous liver without measurable mass. 3. Small and heterogeneous spleen without a measurable mass. 4. Cortical thinning and scarring of the right kidney. 5. Previous cholecystectomy. Calixto Woodruff MD Chest CT 07/09/16 0000 Signed Impressions: Service Date/Time: Saturday, July 09, 2016 14:43 - CONCLUSION: 1. Small right pleural effusion and minimal right basilar consolidation. 2. 6 mm left basilar nodule. Followup CT chest 6 months recommended. Florian Pepper MD Lower Extremity Ultrasound 06/25/16 0000 Signed Impressions: Service Date/Time: Saturday, June 25, 2016 15:56 - CONCLUSION: Negative exam with no evidence of deep venous thrombosis. Soft tissue edema. Mike Leija MD Port Line Insertion 06/20/16 0000 Signed Impressions: Service Date/Time: Monday, June 20, 2016 08:53 - CONCLUSION: Uncomplicated ultrasound and fluoroscopic guided implanted central venous port catheter placement as described in detail above. An 8 [place] Power port was placed. Kevan Salgado Jr., MD Objective Remarks GENERAL: ill looking but in no acute distress CARDIOVASCULAR: Regular rate and irregular rhythm without murmurs, gallops, or rubs. RESPIRATORY: Clear to auscultation. Breath sounds equal bilaterally. No wheezes , rales, or rhonchi. GASTROINTESTINAL: Abdomen soft, colostomy in place MUSCULOSKELETAL: s/p left BKA NEURO: awake and alert Procedures Left stump debridement by Dr. Hill on 06/15/16 Bedside debridement of preperitoneal fat that was protruding from the abdominal fistula 09/01/16 central line placement Exploratory laparotomy, resection of the anterior abdominal wall fistula tract, resection of the transverse colon to small bowel anastomosis, lysis of adhesions of the small bowel with repair of two enterotomies, right-sided ileostomy, left-sided mucous fistula and partial removal of a ventral hernia mesh. Medications and IVs Current Medications Medications (Trade) Dose Ordered Sig/Shira Route Start Time Stop Time Status Last Admin (Rocaltrol) 0.25 mcg DAILY PO 06/15/16 09:00 10/14/16 08:57 (Ferrous Sulfate) 325 mg DAILY PO 06/15/16 09:00 10/12/16 09:14 (Oscal-D 250-125) 500 mg BID PO 06/14/16 21:00 10/14/16 08:49 (Pill Splitter) 1 ea UNSCH PRN OTHER 06/14/16 18:00 (Theragran) 1 tab DAILY PO 06/15/16 12:00 10/12/16 09:14 (Heparin Central Flush) 500 units UNSCH IVF 06/20/16 11:30 10/06/16 12:24 (NS Flush) 5 ml UNSCH PRN IVF 06/20/16 11:30 09/18/16 17:30 (Heparin Central Flush) 250 units UNSCH PRN IVF 06/20/16 11:30 07/26/16 14:54 (Mag-Al Plus Susp Liq) 30 ml Q6H PRN PO 07/09/16 16:45 09/28/16 21:39 (Tylenol) 650 mg Q4H PRN PO 07/11/16 05:45 10/11/16 21:48 (Mycostatin Powder) 1 applic Q12HR TOPICAL 07/11/16 12:00 10/14/16 09:12 (Xanax) 0.25 mg Q8HR PO 07/26/16 14:00 10/14/16 13:30 (Remeron Soltab Odt) 15 mg HS PO 07/29/16 21:00 10/13/16 20:18 (Desitin 40% Oint) 1 applic UNSCH PRN TOPICAL 08/13/16 14:15 08/28/16 20:59 (Lomotil Tab) 2 tab BID PRN PO 08/24/16 19:00 10/08/16 10:12 (Zinc Sulfate) 220 mg DAILY PO 09/04/16 09:00 10/14/16 09:11 (Cymbalta Dr) 30 mg DAILY PO 09/14/16 09:00 10/12/16 09:14 (Cardizem Cd) 240 mg DAILY PO 09/16/16 09:00 Hold 10/08/16 10:10 Gabapentin 300 mg 300 mg TID PO 10/06/16 13:00 Hold 10/09/16 13:39 Fat Emulsion Intravenous 250 ml @ 31.25 mls/ hr SuWe@20 IV-CENTRAL 10/08/16 20:00 10/11/16 20:04 (Mvi-12 Inj/ Folvite Inj/ Clinimix E 03/15) 2,010.2 ml @ 60 mls/hr Q24H IV-CENTRAL 10/08/16 20:00 10/13/16 19:49 Ondansetron HCl 4 mg 4 mg Q6HR PRN IV PUSH 10/08/16 12:00 10/14/16 09:46 (NS 1000 ml Inj) 1,000 ml @ 40 mls/hr Q24H IV 10/08/16 15:00 10/14/16 15:00 (NS Flush) 2 ml UNSCH PRN IVF 10/08/16 14:45 (NS Flush) 2 ml BID IVF 10/08/16 21:00 10/14/16 08:48 Naloxone HCl 0.4 mg 0.4 mg UNSCH PRN IV 10/08/16 14:45 Pharmacy Profile Note ml @ 0 mls/hr UNSCH OTHER 10/08/16 20:30 (Flagyl 500 Mg Inj) 100 ml @ 100 mls/hr Q8H IV 10/08/16 22:00 10/14/16 13:30 (Protonix Inj) 40 mg Q24H IV PUSH 10/08/16 22:00 10/13/16 21:03 (D50w (Vial) Inj) 25 ml UNSCH PRN IV PUSH 10/09/16 03:15 (Glucagon Inj) 1 mg UNSCH PRN OTHER 10/09/16 03:15 (NovoLOG SUPPLEMENTAL SCALE) 1 Q6H SQ 10/09/16 03:15 10/14/16 16:09 (Peridex 0.12% Liq) 15 ml BID@08,20 MT 10/09/16 08:00 10/13/16 19:49 Miscellaneous Information D/C ICU ELECTROLYTE ORDERS... UNSCH PRN XX 10/10/16 12:00 Miscellaneous Information ICU - CALL ORDERING PHYSIC... UNSCH PRN XX 10/10/16 12:00 (KCl 40 Meq Premix Inj) 100 ml @ 25 mls/hr UNSCH PRN IV 10/10/16 12:00 10/14/16 00:15 Potassium Chloride 40 meq 40 meq UNSCH PRN PO 10/10/16 12:00 10/11/16 23:09 Potassium Chloride 100 ml @ 50 mls/hr UNSCH PRN IV 10/10/16 12:00 10/11/16 03:44 Magnesium Sulfate 4 gm/Sodium Chloride 108 ml @ 54 mls/hr UNSCH PRN IV 10/10/16 12:00 (Magnesium Sulfate Inj/NS Inj) 104 ml @ 52 mls/hr UNSCH PRN IV 10/10/16 12:00 Magnesium Oxide 800 mg 800 mg UNSCH PRN PO 10/10/16 12:00 (Sodium Phosphate Inj/NS 250 ml Inj) 260 ml @ 43.333 mls/ hr UNSCH PRN IV 10/10/16 12:00 Potassium Phosphate 2000 mg 2,000 mg UNSCH PRN PO/TUBE 10/10/16 12:00 (Potassium Phosphate Inj/NS 250 ml Inj) 260 ml @ 43.333 mls/ hr UNSCH PRN IV 10/10/16 12:00 10/11/16 08:13 (Lopressor Inj) 5 mg Q6H IV PUSH 10/10/16 13:00 10/14/16 13:28 (Dilaudid Pf Inj) 0.5 mg Q3H PRN IV 10/11/16 12:00 10/14/16 15:01 Lorazepam 0.5 mg 0.5 mg Q4H PRN IV 10/11/16 19:00 10/12/16 09:13 (Rocephin Inj/NS Inj) 100 ml @ 200 mls/hr Q24H IV 10/11/16 23:00 10/13/16 21:59 (Vasotec Inj) 1.25 mg Q6H IV PUSH 10/12/16 07:00 10/14/16 06:10 (Lasix Inj) 20 mg BID@09,18 IV PUSH 10/12/16 09:00 10/14/16 08:47 Miscellaneous Information SPECIFIC LAB TO BE DRAWN:VANCOMYCIN TROUGH DATE TO... ONCE ONCE XX 10/14/16 19:45 10/14/16 19:46 (Dilaudid Pf Inj) 2 mg UNSCH PRN IV 10/12/16 10:45 10/13/16 11:18 (Xarelto) 20 mg DAILY PO 10/13/16 11:00 10/14/16 08:49 Oxybutynin Chloride 2.5 mg 2.5 mg Q8HR PO 10/14/16 14:41 10/14/16 15:42 (Vancomycin Inj/ NS 250 ml Inj) 262.5 ml @ 250 mls/hr Q18H IV 10/14/16 20:00 Urinary Catheter: Yes Assessment to: Continue Hamlin insert reason: Prolonged Immobilization Vascular Central Line Catheter: Yes Assessment to: Continue Date of Insertion: Jun 20, 2016 Side: Left A/P Problem List: (1) Septic shock ICD Code: A41.9 Status: Acute Plan: Septic shock secondary to intra-abdominal sepsis with acid. Ischemia, bowel perforation and leak. Status post exploratory laparotomy, colectomy and colostomy. Continue antibiotics as per infectious disease recommendations. The patient currently on Rocephin, Flagyl and IV vancomycin Pansensitive Klebsiella pneumoniae bacteremia Questionable staph epi bacteremia, unknown clinical significance. Septic shock has resolved, patient of pressors. As per ID if repeat blood cultures negative in 3-5 days will DC vancomycin (2) Acute hypoxemic respiratory failure ICD Code: J96.01 Status: Acute Plan: And extubated 10/10 Continue bronchodilators. Incentive spirometry Continue diuresis. (3) Ischemic colitis ICD Code: K55.9 Status: Resolved Plan: sp ischemic bowel perforation and sepsis Patient is status post resection of 5-6 inches of transverse colon with creation of ileostomy and colostomy. (Mucoid fistula). NG tube and recommended to low intermittent wall suction VERNA in place, monitor output Continue TPN Further management as per general surgery (4) COPD (chronic obstructive pulmonary disease) ICD Code: J44.9 Status: Chronic Plan: Seems stable No indication for steroids Continue nebs (5) depression Status: Chronic Plan: resume antidepressants when able to take po. (6) Peripheral neuropathy ICD Code: G62.9 Status: Chronic Plan: Status post left BKA (7) Chronic diastolic (congestive) heart failure ICD Code: I50.32 Status: Chronic Plan: Patient has grade 1 diastolic dysfunction. Seems stable. Continue BP control (8) ZIA (acute kidney injury) ICD Code: N17.9 Status: Resolved Plan: Prerenal, now resolved. Hamlin in place. Continue to monitor intake and output. Avoid nephrotoxins. Good urine output. Likely replacement as per ICU protocol (9) emergent Ex Lap for ischemic bowel/perforation 10/08/16 Status: Acute Plan: As above. Management as per Surgery. continue TPN. (10) Acute blood loss anemia ICD Code: D62 Status: Acute Plan: Bleeding noted at ileostomy/colostomyresolved. Previously on Xareltocontinue to hold. Status post transfusion of 4 units of PRBCs on 10/08 H&H stable, continue to monitor Assessment and Plan Prophylaxis Lovenox/PPI Jeff Carey MD Oct 14, 2016 17:13
[2016-10-14] MEDS ORDERED: PHARMACY ORDERED LAB XX ONE (19:45)
[2016-10-14] MEDS: MIRTAZAPINE ODT 15 MG TAB PO SCH (20:12)
[2016-10-14] MEDS: CLINIMIX E 5/25 2000 mL- >42 mls/hr IV-CENTRAL SCH ×3 (20:21)
[2016-10-14] MEDS: PANTOPRAZOLE SODIUM 40 MG VIAL IV PUSH SCH (21:04)
[2016-10-14] MEDS: cefTRIAXone INJ 2,000 MG in SODIUM CHLORIDE 0.9% INJ 100 ML IV SCH (23:22)
[2016-10-15] VITALS (12 sets, daily range): BP systolic 93–137; BP diastolic 52–62; PULSE 98–119; RESP 13–22; TEMP 97.5–98.5; O2SAT 90–98
[2016-10-15] MEDS: HYDROmorphone HCL PF 1 MG/ML VIAL IV PRN ×8 (00:11→23:24)
[2016-10-15] MEDS: METOPROLOL TARTRATE 5 MG/5 ML VIAL IV PUSH SCH ×4 (01:00→19:31)
[2016-10-15] MEDS: ENALAPRILAT 1.25 MG/ML VIAL IV PUSH SCH ×4 (01:00→19:31)
[2016-10-15] MEDS: INSULIN ASPART SUPPLEMENTAL SCALE SQ SCH ×3 (04:08→21:26)
[2016-10-15 04:31] LABS: AUTOMATED NEUTROPHIL # 7.3 TH/MM3 (1.8-7.7); BASOPHIL % 0.3 % (0.0-2.0); EOSINOPHIL # 0.3 TH/MM3 (0-0.4); EOSINOPHIL % 2.8 % (0.0-4.0); HEMATOCRIT 29.6 % (35.0-46.0); HEMO FLAGS DIFF FINAL; LYMPH % 22.7 % (9.0-44.0); LYMPHOCYTE # 2.6 TH/MM3 (1.0-4.8); MEAN CELL VOLUME 87.1 FL (80.0-100.0); MEAN CORPUSCULAR HGB CONC 32.2 % (32.0-36.0); MONO % 11.2 % (0.0-8.0); PLATELET COUNT 275 TH/MM3 (150-450); RED CELL DISTRIBUTION WIDTH 16.6 % (11.6-17.2); WHITE BLOOD COUNT 11.6 TH/MM3 (4.0-11.0)
[2016-10-15 04:50] LABS: ALT (GPT) 15 U/L (10-53); ANION GAP 9 MEQ/L (5-15); AST (GOT) 29 U/L (15-37); BICARBONATE 29.6 MEQ/L (21.0-32.0); BLOOD UREA NITROGEN 26 MG/DL (7-18); CHLORIDE 100 MEQ/L (98-107); GLOMERULAR FILTRATION RATE 73 ML/MIN (>89); MAGNESIUM 1.6 MG/DL (1.5-2.5); POTASSIUM 3.5 MEQ/L (3.5-5.1); SODIUM (NA) 139 MEQ/L (136-145)
[2016-10-15 04:56] LABS: ALKALINE PHOSPHATASE 121 U/L (45-117); TOTAL BILIRUBIN ADULT 0.6 MG/DL (0.2-1.0)
[2016-10-15] MEDS: OXYBUTYNIN CHLORIDE 5 MG TAB PO SCH ×3 (06:10→21:27)
[2016-10-15] MEDS: ALPRAZolam 0.25 MG TAB PO SCH ×3 (06:10→21:26)
[2016-10-15] MEDS: metroNIDAZOLE 500 MG INJ 100 ML IV SCH ×3 (06:11→21:28)
[2016-10-15] MEDS: CHLORHEXIDINE 0.12% (ORAL KIT) 15 ML CUP MT SCH ×2 (07:53→21:27)
[2016-10-15] MEDS: CALCITRIOL 0.25 MCG CAP PO SCH (08:38)
[2016-10-15] MEDS: ZINC SULFATE 220 MG CAP PO SCH (08:39)
[2016-10-15] MEDS: FERROUS SULFATE 325 MG (65 MG ELEMENTAL IRON) TAB PO SCH (08:39)
[2016-10-15] MEDS: DULoxetine HCl DR 30 MG CAP PO SCH (08:39)
[2016-10-15] MEDS: CALCIUM/VITAMIN D 250 MG/125 U TAB PO SCH ×2 (08:39→21:27)
[2016-10-15] MEDS: MULTIVITAMIN TAB PO SCH (08:39)
[2016-10-15] MEDS: FUROSEMIDE 20 MG/2 ML VIAL IV PUSH SCH ×2 (08:40→17:05)
[2016-10-15] MEDS: SODIUM CHLORIDE 0.9% FLUSH 5 ML FLUSH IVF SCH ×2 (08:40→21:27)
[2016-10-15] MEDS: NYSTATIN 100,000 U/GM PWD 15 GM BTL TOPICAL SCH ×2 (08:40→21:28)
[2016-10-15] MEDS: DILTIAZEM-CD 240 MG CAP ER PO SCH (09:00)
[2016-10-15] MEDS: RIVAROXABAN 20 MG TAB PO SCH (09:00)
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
[2016-10-15] MEDS: VANCOMYCIN INJ 1,350 MG in SODIUM CHLORID 0.9% 500 ML INJ 500 ML IV SCH (13:19)
--- NOTE | 2016-10-15 14:25 | HHI.PR ---
Subjective Remarks Follow-up for ischemic colitis, respiratory failure. Ms. Wilson is currently doing well. She is tolerating PO water little bit. Still has NG tube and also on TPN. No fever, chills. She has persistent abdominal pain. Objective Vitals Vital Signs Date Time Temp Pulse Resp B/P Pulse Ox O2 Delivery O2 Flow Rate FiO2 10/15/16 12:00 98.4 107 22 110/59 98 10/15/16 12:00 107 10/15/16 10:00 100 10/15/16 08:00 98.2 98 13 137/62 96 10/15/16 08:00 101 10/15/16 07:23 90 Nasal Cannula 4.00 10/15/16 07:00 95 Nasal Cannula 4.00 10/15/16 06:42 18 10/15/16 06:00 115 10/15/16 04:00 98.5 115 17 103/53 98 10/15/16 04:00 115 10/15/16 02:00 119 10/15/16 00:00 98.3 116 17 114/57 96 10/15/16 00:00 116 10/14/16 23:12 110 10/14/16 20:36 96 Nasal Cannula 4.00 10/14/16 20:00 98.1 99 18 113/60 96 10/14/16 20:00 99 10/14/16 19:00 98 Nasal Cannula 6.00 10/14/16 18:00 111 10/14/16 16:00 98.4 109 19 117/63 92 10/14/16 16:00 109 I/O 10/14/16 10/14/16 10/14/16 10/15/16 10/15/16 10/15/16 07:00 15:00 23:00 07:00 15:00 23:00 Intake Total 772 ml 656 ml 719 ml 952 ml Output Total 990 ml 1385 ml 1695 ml 1855 ml Balance -218 ml -729 ml -976 ml -903 ml Intake Oral 0 ml IV Total 426 ml 206 ml 273 ml 440 ml TPN/PPN 346 ml 450 ml 446 ml 512 ml Output Urine Total 425 ml 925 ml 650 ml 325 ml Stool Total 230 ml 200 ml 380 ml 725 ml Gastric Drainage Total 300 ml 0 ml 250 ml 50 ml Drainage Total 35 ml 260 ml 415 ml 755 ml # Bowel Movements 0 0 0 0 Result Diagram: 10/15/16 0355 10/15/16 0355 Imaging Last Impressions Chest X-Ray 10/12/16 0600 Signed Impressions: Service Date/Time: September 05:39 - CONCLUSION: No significant change bibasilar consolidation. Interim extubation. Other lines and tubes unchanged, as above. Calixto Woodruff MD Abdomen/Pelvis CT 10/08/16 1057 Signed Impressions: Service Date/Time: Saturday, October 08, 2016 11:14 - CONCLUSION: 1. Findings very suspicious for ischemic colon. Postsurgical findings with evidence of prior colectomy. There is evidence of bowel wall pneumatosis of the transverse colon in the region of anastomosis. Adjacent small bubbles of extraluminal gas but may be within the portal venous system or free also noted. These findings are highly suspicious for ischemic colon. 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 2. Marked nonspecific distention of the stomach. Alexandru Lynch MD Liver Ultrasound 07/12/16 0000 Signed Impressions: Service Date/Time: Tuesday, July 12, 2016 18:07 - CONCLUSION: 1. No acute abnormality demonstrated. 2. Heterogeneous liver without measurable mass. 3. Small and heterogeneous spleen without a measurable mass. 4. Cortical thinning and scarring of the right kidney. 5. Previous cholecystectomy. Calixto Woodruff MD Chest CT 07/09/16 0000 Signed Impressions: Service Date/Time: Saturday, July 09, 2016 14:43 - CONCLUSION: 1. Small right pleural effusion and minimal right basilar consolidation. 2. 6 mm left basilar nodule. Followup CT chest 6 months recommended. Florian Pepper MD Lower Extremity Ultrasound 06/25/16 0000 Signed Impressions: Service Date/Time: Saturday, June 25, 2016 15:56 - CONCLUSION: Negative exam with no evidence of deep venous thrombosis. Soft tissue edema. Mike Leija MD Port Line Insertion 06/20/16 0000 Signed Impressions: Service Date/Time: Monday, June 20, 2016 08:53 - CONCLUSION: Uncomplicated ultrasound and fluoroscopic guided implanted central venous port catheter placement as described in detail above. An 8 [place] Power port was placed. Kevna Salgado Jr., MD Objective Remarks GENERAL: Alert, oriented x 3, NAD, airway intact. SKIN: Warm and dry. HEAD: Normocephalic. EYES: No scleral icterus. No injection or drainage. NECK: Supple, trachea midline. No JVD or lymphadenopathy. Intact airway. CARDIOVASCULAR: Regular rhythm, tachycardic without murmurs, gallops, or rubs. RESPIRATORY: Breath sounds equal bilaterally. No accessory muscle use. GASTROINTESTINAL: Diffuse abdomen diffusely tender to palpation MUSCULOSKELETAL: No cyanosis, or edema. s/p left foot amputation. Procedures Left stump debridement by Dr. Hill on 06/15/16 Bedside debridement of preperitoneal fat that was protruding from the abdominal fistula 09/01/16 central line placement Exploratory laparotomy, resection of the anterior abdominal wall fistula tract, resection of the transverse colon to small bowel anastomosis, lysis of adhesions of the small bowel with repair of two enterotomies, right-sided ileostomy, left-sided mucous fistula and partial removal of a ventral hernia mesh. Date of Insertion: Jun 20, 2016 Side: Left A/P Problem List: (1) Septic shock ICD Code: A41.9 Status: Acute (2) Acute hypoxemic respiratory failure ICD Code: J96.01 Status: Acute (3) Ischemic colitis ICD Code: K55.9 Status: Resolved (4) COPD (chronic obstructive pulmonary disease) ICD Code: J44.9 Status: Chronic (5) depression Status: Chronic (6) Peripheral neuropathy ICD Code: G62.9 Status: Chronic (7) Chronic diastolic (congestive) heart failure ICD Code: I50.32 Status: Chronic (8) ZIA (acute kidney injury) ICD Code: N17.9 Status: Resolved (9) emergent Ex Lap for ischemic bowel/perforation 10/08/16 Status: Acute (10) Acute blood loss anemia ICD Code: D62 Status: Acute Assessment and Plan Ms. Wilson is a pleasant 71 year old female who was admitted to the hospital in Oct 2015 due to ischemic bowel and subsequently underwent resection of large , small bowel and cholecystectomy. 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 Patient was discharged to SNF but returned to the hospital due to post surgical complications. She underwent left foot amputation and subsequently had a lot of post surgical complications requiring wound vac. Her surgeon (Dr. Olvera) determined that patient was too high risk for further surgical intervention. Patient was on TPN and after discussing with Dr. Hill we switched patient to PO diet two days ago. Based on patient's desires, we spoke to Dr. Hill regarding a second surgical opinion. Dr. Hill was kind enough to consult Dr. Grajeda who evaluated patient on 10/07/2016. On 2015, patient was transferred to the main campus after she complained of severe abdominal pain and CT scan showed ischemic bowel. Due to septic shock, patient was started on Vancomycin and Cefepime prior to transfer. - Septic shock - Ischemic colitis - s/p Ex lap, resection of anterior abdominal wall fistula tract, resection of transverse colon to small bowel anastomosis, right sided ileostomy, left sided mucous fistula and partial removal of a ventral hernia mesh. - ID is following. Currently on Ceftriaxone, Flagyl and IV vancomycin. - If blood cultures are negative in 3-5 days, we will discontinue Vancomycin. - COPD - Acute hypoxemic respiratory failure - s/p extubation on 10/10/2016. - Continue bronchodilators, Incentive spirometry. - Acute kidney injury - resolved. Creatinine 2.70 ---> 0.78. - Acute blood loss anemia - s/p 4 units of PRBCs on 10/08/2016. Full code. [place]. Protonix IV. Elen Rivers DO Oct 15, 2016 2:25 pm
[2016-10-15] MEDS: SODIUM CHLOR 0.9% 1000 ML INJ 1,000 ML IV SCH ×2 (15:00→22:06)
[2016-10-15] MEDS: ICU - POTASSIUM CHLORIDE 10% LIQUID 40 MEQ/30 ML CUP PO PRN (17:05)
[2016-10-15] MEDS: CLINIMIX E 5/25 2000 mL- >42 mls/hr IV-CENTRAL SCH ×3 (19:30)
[2016-10-15] MEDS: FAT EMULSION 20% INJ 250 ML (Twice weekly over 8 hours) IV-CENTRAL SCH (19:34)
[2016-10-15] MEDS: PANTOPRAZOLE SODIUM 40 MG VIAL IV PUSH SCH (21:26)
[2016-10-15] MEDS: MIRTAZAPINE ODT 15 MG TAB PO SCH (21:26)
[2016-10-15] MEDS: cefTRIAXone INJ 2,000 MG in SODIUM CHLORIDE 0.9% INJ 100 ML IV SCH (23:24)
[2016-10-16] VITALS (15 sets, daily range): BP systolic 102–123; BP diastolic 53–57; PULSE 104–130; RESP 16–26; TEMP 97.3–99.6; O2SAT 93–98
[2016-10-16] MEDS: METOPROLOL TARTRATE 5 MG/5 ML VIAL IV PUSH SCH ×4 (01:00→17:46)
[2016-10-16] MEDS: ENALAPRILAT 1.25 MG/ML VIAL IV PUSH SCH ×4 (01:00→17:46)
[2016-10-16] MEDS: HYDROmorphone HCL PF 1 MG/ML VIAL IV PRN ×6 (02:35→23:22)
[2016-10-16] MEDS: INSULIN ASPART SUPPLEMENTAL SCALE SQ SCH ×4 (03:47→21:15)
[2016-10-16] MEDS: OXYBUTYNIN CHLORIDE 5 MG TAB PO SCH ×3 (05:32→20:26)
[2016-10-16] MEDS: ALPRAZolam 0.25 MG TAB PO SCH ×2 (05:32→12:44)
[2016-10-16] MEDS: metroNIDAZOLE 500 MG INJ 100 ML IV SCH ×3 (05:34→20:26)
[2016-10-16] MEDS ORDERED: PHARMACY ORDERED LAB XX ONE (07:45)
[2016-10-16] MEDS: CHLORHEXIDINE 0.12% (ORAL KIT) 15 ML CUP MT SCH ×2 (07:54→20:24)
[2016-10-16] MEDS: VANCOMYCIN INJ 1,350 MG in SODIUM CHLORID 0.9% 500 ML INJ 500 ML IV SCH (07:56)
[2016-10-16] MEDS: FUROSEMIDE 20 MG/2 ML VIAL IV PUSH SCH ×2 (07:57→16:05)
[2016-10-16] MEDS: MULTIVITAMIN TAB PO SCH (07:57)
[2016-10-16] MEDS: FERROUS SULFATE 325 MG (65 MG ELEMENTAL IRON) TAB PO SCH (07:58)
[2016-10-16] MEDS: CALCITRIOL 0.25 MCG CAP PO SCH (07:58)
[2016-10-16] MEDS: DULoxetine HCl DR 30 MG CAP PO SCH (07:58)
[2016-10-16] MEDS: ZINC SULFATE 220 MG CAP PO SCH (07:58)
[2016-10-16] MEDS: DILTIAZEM-CD 240 MG CAP ER PO SCH (07:58)
[2016-10-16] MEDS: CALCIUM/VITAMIN D 250 MG/125 U TAB PO SCH ×2 (07:58→20:22)
[2016-10-16] MEDS: SODIUM CHLORIDE 0.9% FLUSH 5 ML FLUSH IVF SCH ×2 (07:59→20:23)
[2016-10-16] MEDS: NYSTATIN 100,000 U/GM PWD 15 GM BTL TOPICAL SCH ×2 (07:59→21:00)
[2016-10-16] MEDS: ONDANSETRON HCL 4 MG/2 ML VIAL IV PUSH PRN (08:19)
[2016-10-16] MEDS: RIVAROXABAN 20 MG TAB PO SCH (08:21)
--- NOTE | 2016-10-16 14:28 | HHI.PR ---
Subjective Remarks Follow-up for ischemic bowel, respiratory failure, septic shock. complains of abdominal pain no nausea or vomiting. She has been able to tolerate some by mouth food. No fever or chills. Objective Vitals Vital Signs Date Time Temp Pulse Resp B/P Pulse Ox O2 Delivery O2 Flow Rate FiO2 10/16/16 12:00 110 10/16/16 12:00 98.1 110 26 106/57 96 10/16/16 10:00 106 10/16/16 08:53 94 Nasal Cannula 4.00 10/16/16 08:00 98.2 110 23 117/53 93 10/16/16 08:00 112 10/16/16 07:00 93 Nasal Cannula 4.00 10/16/16 06:00 112 10/16/16 04:00 119 10/16/16 04:00 97.3 119 20 111/55 95 10/16/16 02:00 130 10/16/16 00:00 98.5 130 22 102/54 95 10/16/16 00:00 130 10/15/16 22:00 106 10/15/16 20:00 99 10/15/16 20:00 97.5 98 18 93/52 93 10/15/16 19:34 93 Nasal Cannula 4.00 10/15/16 19:00 93 Nasal Cannula 4.00 I/O 10/15/16 10/15/16 10/15/16 10/16/16 10/16/16 10/16/16 07:00 15:00 23:00 07:00 15:00 23:00 Intake Total 952 ml 875 ml 2311 ml 1078 ml Output Total 1855 ml 1530 ml 1602 ml 1060 ml Balance -903 ml -655 ml 709 ml 18 ml Intake Oral 50 ml 240 ml 100 ml IV Total 440 ml 293 ml 1008 ml 307 ml TPN/PPN 512 ml 532 ml 953 ml 488 ml Lipid 60 ml 183 ml Other 50 ml Output Urine Total 325 ml 700 ml 1000 ml 500 ml Stool Total 725 ml 750 ml 602 ml 550 ml Gastric Drainage Total 50 ml 40 ml Drainage Total 755 ml 40 ml 0 ml 10 ml # Bowel Movements 0 Result Diagram: 10/15/16 0355 10/15/16 0355 Imaging Last Impressions Chest X-Ray 12/22/16 0600 Signed Impressions: Service Date/Time: September 05:39 - CONCLUSION: No significant change bibasilar consolidation. Interim extubation. Other lines and tubes unchanged, as above. Calitxo Woodruff MD Abdomen/Pelvis CT 10/08/16 1057 Signed Impressions: Service Date/Time: Saturday, October 08, 2016 11:14 - CONCLUSION: 1. Findings very suspicious for ischemic colon. Postsurgical findings with evidence of prior colectomy. There is evidence of bowel wall pneumatosis of the transverse colon in the region of anastomosis. Adjacent small bubbles of extraluminal gas but may be within the portal venous system or free also noted. These findings are highly suspicious for ischemic colon. 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 2. Marked nonspecific distention of the stomach. Alexandru Lynch MD Liver Ultrasound 07/12/16 0000 Signed Impressions: Service Date/Time: Tuesday, July 12, 2016 18:07 - CONCLUSION: 1. No acute abnormality demonstrated. 2. Heterogeneous liver without measurable mass. 3. Small and heterogeneous spleen without a measurable mass. 4. Cortical thinning and scarring of the right kidney. 5. Previous cholecystectomy. Calixto Woodruff MD Chest CT 07/09/16 0000 Signed Impressions: Service Date/Time: Saturday, July 09, 2016 14:43 - CONCLUSION: 1. Small right pleural effusion and minimal right basilar consolidation. 2. 6 mm left basilar nodule. Followup CT chest 6 months recommended. Florian Pepper MD Lower Extremity Ultrasound 06/25/16 0000 Signed Impressions: Service Date/Time: Saturday, June 25, 2016 15:56 - CONCLUSION: Negative exam with no evidence of deep venous thrombosis. Soft tissue edema. Mike Leija MD Port Line Insertion 06/20/16 0000 Signed Impressions: Service Date/Time: Monday, June 20, 2016 08:53 - CONCLUSION: Uncomplicated ultrasound and fluoroscopic guided implanted central venous port catheter placement as described in detail above. An 8 [place] Power port was placed. Kevan Salgado Jr., MD Objective Remarks GENERAL: Alert, oriented x 3, NAD, airway intact. SKIN: Warm and dry. HEAD: Normocephalic. EYES: No scleral icterus. No injection or drainage. NECK: Supple, trachea midline. No JVD or lymphadenopathy. Intact airway. CARDIOVASCULAR: Regular rhythm, tachycardic without murmurs, gallops, or rubs. RESPIRATORY: Breath sounds equal bilaterally. No accessory muscle use. GASTROINTESTINAL: Diffuse abdomen diffusely tender to palpation MUSCULOSKELETAL: No cyanosis, or edema. s/p left foot amputation. Procedures Left stump debridement by Dr. Hill on 06/15/16 Bedside debridement of preperitoneal fat that was protruding from the abdominal fistula 09/01/16 central line placement Exploratory laparotomy, resection of the anterior abdominal wall fistula tract, resection of the transverse colon to small bowel anastomosis, lysis of adhesions of the small bowel with repair of two enterotomies, right-sided ileostomy, left-sided mucous fistula and partial removal of a ventral hernia mesh. Date of Insertion: Jun 20, 2016 Side: Left A/P Problem List: (1) Septic shock ICD Code: A41.9 Status: Acute (2) Acute hypoxemic respiratory failure ICD Code: J96.01 Status: Acute (3) Ischemic colitis ICD Code: K55.9 Status: Resolved (4) COPD (chronic obstructive pulmonary disease) ICD Code: J44.9 Status: Chronic (5) depression Status: Chronic (6) Peripheral neuropathy ICD Code: G62.9 Status: Chronic (7) Chronic diastolic (congestive) heart failure ICD Code: I50.32 Status: Chronic (8) ZIA (acute kidney injury) ICD Code: N17.9 Status: Resolved (9) emergent Ex Lap for ischemic bowel/perforation 10/08/16 Status: Acute (10) Acute blood loss anemia ICD Code: D62 Status: Acute Assessment and Plan Ms. Wilson is a pleasant 71 year old female who was admitted to the hospital in Oct 2015 due to ischemic bowel and subsequently underwent resection of large , small bowel and cholecystectomy. 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 Patient was discharged to SNF but returned to the hospital due to post surgical complications. She underwent left foot amputation and subsequently had a lot of post surgical complications requiring wound vac. Her surgeon (Dr. Olvera) determined that patient was too high risk for further surgical intervention. Patient was on TPN and after discussing with Dr. Hill we switched patient to PO diet two days ago. Based on patient's desires, we spoke to Dr. Hill regarding a second surgical opinion. Dr. Hill was kind enough to consult Dr. Grajeda who evaluated patient on 10/07/2016. On 2015, patient was transferred to the main campus after she complained of severe abdominal pain and CT scan showed ischemic bowel. Due to septic shock, patient was started on Vancomycin and Cefepime prior to transfer. - Septic shock - Ischemic colitis - s/p Ex lap, resection of anterior abdominal wall fistula tract, resection of transverse colon to small bowel anastomosis, right sided ileostomy, left sided mucous fistula and partial removal of a ventral hernia mesh. - ID is following. Currently on Ceftriaxone, Flagyl and IV vancomycin. - If blood cultures are negative in 3-5 days, we will discontinue Vancomycin. - Diet advanced by Dr. Crouch - Continue PT. - COPD - Acute hypoxemic respiratory failure - s/p extubation on 10/10/2016. - Continue bronchodilators, Incentive spirometry. - Acute kidney injury - resolved. Creatinine 2.70 ---> 0.78. - Acute blood loss anemia - s/p 4 units of PRBCs on 10/08/2016. Full code. [place]. Protonix IV. Elen Rivers DO Oct 16, 2016 2:27 pm
[2016-10-16] MEDS: SODIUM CHLOR 0.9% 1000 ML INJ 1,000 ML IV SCH (15:00)
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
--- NOTE | 2016-10-16 15:13 | HHI.HCPN ---
Reason for visit a. To assist with evaluation and management of symptoms including: Pain, anxiety, depression b. To assist medical decision maker(s) with: better understanding of current medical conditions; weighing benefits/burdens of medical treatment options; making medical treatment decisions. . Subjective/Interval History INTERVAL NOTE: The patient was extubated several days ago, and the NG tube and J-tube drain were removed today. [facility] Anuradha Christian met with Dr. Sergio darling over the weekend. The patient confirmed to them that she wants to continue with aggressive care and full CODE STATUS. Not much pain. Taking sips of fluid now. . As per initial consultation note on 07/24/16 by Ronald Edouard MD: This 71-year-old female has a complex medical history over the past year. The patient was admitted to the hospital and sepsis and shock in October 2015 and was found to have ischemic bowel. She underwent surgery 11/13/15 with resection of some large and small bowel (as well as the gallbladder), but developed complications including an enterocutaneous fistula and required a second resection of bowel on 11/26/15. The patient eventually was able to be sent to SNF , but returned to the hospital again on 03/11/16 with abdominal pain and had infection involving the fistula. That was treated, and she was able to go home briefly. She returned to the hospital on 04/04/16 because of left leg pain that was found to be caused by ischemia. She underwent treatment with TPA and was kept on anticoagulation, and was discharged again. She returned to the hospital on 04/28/16 with gangrene of the left foot, and was found to have multiple thrombi in major vessels. 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 On 06/14/16, while at the nursing facility, the patient was moving in the bed and there was a dehiscence of the left leg stump wound, and she was sent back to the hospital for admission. Couple on arrival at the hospital, she was found to have a temperature of 100.2 , and she was readmitted. 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 Cultures from the stump wound grew both Klebsiella ESBL and a Morganella species. She was taken to the operating room for debridement and placement of a wound VAC. The fistula seemed to finally close on 06/25/16, but it reopened and has remained open since 07/12/16. She again had fever on 07/21/16 , and additional cultures were done. Staphylococcus hominis has been grown in the blood cultures. The patient has developed a worsening rash on her face, upper back, sacral/ buttock area, and now over the past few days worsening with development of bullae on multiple fingertips. The patient thinks there were vesicles on the rash across her back and on her face a week or 2 ago, but those seem to have all collapsed and dried. The patient has had worsening anxiety over the past several months that she has undergone multiple hospitalizations and complications. She has been receiving some PRN Xanax here, and she says that does help, but it is not scheduled. She has also had pain that has worsened, particularly in her abdomen that she relates to the enterocutaneous fistula, and on her skin on the sacral and upper back area, as well as some skin related to the facial rash. She has received intermittent Baxter 10 mg and Dilaudid 1 mg IV a few times per day, and says they helped temporarily. Palliative Care was consulted to assist with symptom management, and to enter in discussions regarding goals of care in the benefits and burdens of the various illnesses and treatment options. . Family/friend interactions Discussed by telephone with [facility] Anuradha. She reports that she found the patient's old living will and will bring in a copy of that. . Advance Directives Living Will: Completed, but not made available Health Care Surrogate: Copy in medical record Durable Power of Drafter Castings: Never completed Advance Directive Specifics Health Care Surrogate(s): Primary HCS is her close friend Anuradha Christian, and secondary is her Dwight Wilson. The HCS that is in the record here is not dated. . Objective Vital Signs Date Time Temp Pulse Resp B/P Pulse Ox O2 Delivery O2 Flow Rate FiO2 10/16/16 14:00 107 10/16/16 12:00 110 10/16/16 12:00 98.1 110 26 106/57 96 10/16/16 10:00 106 10/16/16 08:53 94 Nasal Cannula 4.00 10/16/16 08:00 98.2 110 23 117/53 93 10/16/16 08:00 112 10/16/16 07:00 93 Nasal Cannula 4.00 10/16/16 06:00 112 10/16/16 04:00 119 10/16/16 04:00 97.3 119 20 111/55 95 10/16/16 02:00 130 10/16/16 00:00 98.5 130 22 102/54 95 10/16/16 00:00 130 10/15/16 22:00 106 10/15/16 20:00 99 10/15/16 20:00 97.5 98 18 93/52 93 10/15/16 19:34 93 Nasal Cannula 4.00 10/15/16 19:00 93 Nasal Cannula 4.00 Intake & Output 10/16/16 10/16/16 07:00 19:00 Intake Total 3389 ml 1350 ml Output Total 2662 ml 1000 ml Balance 727 ml 350 ml Intake Oral 340 ml 210 ml IV Total 1315 ml 700 ml TPN/PPN 1441 ml 440 ml Lipid 243 ml Other 50 ml Output Urine Total 1500 ml 700 ml Stool Total 1152 ml 300 ml Drainage Total 10 ml 0 ml Physical Exam CONSTITUTIONAL/GENERAL: She is in the [facility] bed. Alert, communicative SKIN: Skin temperature appropriate. Not diaphoretic. Abdominal wounds noted ENT: Nose without bleeding or purulent drainage. Throat without visible erythema, exudates, masses, or lesions. CARDIOVASCULAR: Regular rate and rhythm without murmurs, gallops, or rubs. No JVD. RESPIRATORY/CHEST: Symmetric, unlabored respirations. Scattered rhonchi are present. GASTROINTESTINAL: Soft, no bowel sounds heard. Ileostomy and colostomy noted MUSCULOSKELETAL: Extremities without clubbing, cyanosis, or edema. Stump now well healed. No mottling or clubbing. NEUROLOGICAL: Alert, moves extremities, follows commands. PSYCHIATRIC: Not anxious or appearing depressed at this time. . Diagnostic Tests Laboratory Laboratory Tests Test 10/13/16 10/14/16 10/14/16 10/15/16 20:00 06:15 19:55 03:55 Potassium Level 3.4 MEQ/L 3.9 MEQ/L 3.5 MEQ/L (3.5-5.1) (3.5-5.1) (3.5-5.1) White Blood Count 11.2 TH/MM3 11.6 TH/MM3 (4.0-11.0) (4.0-11.0) Red Blood Count 3.26 MIL/MM3 3.40 MIL/MM3 (4.00-5.30) (4.00-5.30) Hemoglobin 9.3 GM/DL 9.5 GM/DL (11.6-15.3) (11.6-15.3) Hematocrit 28.4 % 29.6 % (35.0-46.0) (35.0-46.0) Mean Corpuscular Volume 87.1 FL 87.1 FL (80.0-100.0) (80.0-100.0) Mean Corpuscular Hemoglobin 28.7 PG 28.0 PG (27.0-34.0) (27.0-34.0) Mean Corpuscular Hemoglobin 32.9 % 32.2 % Concent (32.0-36.0) (32.0-36.0) Red Cell Distribution Width 16.5 % 16.6 % (11.6-17.2) (11.6-17.2) Platelet Count 189 TH/MM3 275 TH/MM3 (150-450) (150-450) Mean Platelet Volume 10.4 FL 10.3 FL (7.0-11.0) (7.0-11.0) Neutrophils (%) (Auto) 65.0 % 63.0 % (16.0-70.0) (16.0-70.0) Lymphocytes (%) (Auto) 20.4 % 22.7 % (9.0-44.0) (9.0-44.0) Monocytes (%) (Auto) 10.9 % 11.2 % (0.0-8.0) (0.0-8.0) Eosinophils (%) (Auto) 3.2 % (0.0-4.0) 2.8 % (0.0-4.0) Basophils (%) (Auto) 0.5 % (0.0-2.0) 0.3 % (0.0-2.0) Neutrophils # (Auto) 7.3 TH/MM3 7.3 TH/MM3 (1.8-7.7) (1.8-7.7) Lymphocytes # (Auto) 2.3 TH/MM3 2.6 TH/MM3 (1.0-4.8) (1.0-4.8) Monocytes # (Auto) 1.2 TH/MM3 1.3 TH/MM3 (0-0.9) (0-0.9) Eosinophils # (Auto) 0.4 TH/MM3 0.3 TH/MM3 (0-0.4) (0-0.4) Basophils # (Auto) 0.1 TH/MM3 0.0 TH/MM3 (0-0.2) (0-0.2) CBC Comment DIFF FINAL DIFF FINAL Differential Comment Sodium Level 142 MEQ/L 139 MEQ/L (136-145) (136-145) Chloride Level 105 MEQ/L 100 MEQ/L (98-107) (98-107) Carbon Dioxide Level 29.9 MEQ/L 29.6 MEQ/L (21.0-32.0) (21.0-32.0) Anion Gap 7 MEQ/L (5-15) 9 MEQ/L (5-15) Blood Urea Nitrogen 21 MG/DL (7-18) 26 MG/DL (7-18) Creatinine 0.67 MG/DL 0.78 MG/DL (0.50-1.00) (0.50-1.00) Estimat Glomerular Filtration 87 ML/MIN (>89) 73 ML/MIN (>89) Rate Random Glucose 208 MG/DL 227 MG/DL (74-106) (74-106) Calcium Level 8.1 MG/DL 8.3 MG/DL (8.5-10.1) (8.5-10.1) Vancomycin Level Trough 13.6 MCG/ML (5.0-10.0) Phosphorus Level 4.4 MG/DL (2.5-4.9) Magnesium Level 1.6 MG/DL (1.5-2.5) Total Bilirubin 0.6 MG/DL (0.2-1.0) Aspartate Amino Transf 29 U/L (15-37) (AST/SGOT) Alanine Aminotransferase 15 U/L (10-53) (ALT/SGPT) Alkaline Phosphatase 121 U/L (45-117) Total Protein 5.4 GM/DL (6.4-8.2) Albumin 1.7 GM/DL (3.4-5.0) Test 10/16/16 07:45 Vancomycin Level Trough 17.3 MCG/ML (5.0-10.0) Result Diagram: 10/15/16 0355 10/15/16 0355 Imaging Last Impressions Chest X-Ray 10/12/16 0600 Signed Impressions: Service Date/Time: September 05:39 - CONCLUSION: No significant change bibasilar consolidation. Interim extubation. Other lines and tubes unchanged, as above. Calixto Woodruff MD Abdomen/Pelvis CT 10/08/16 1057 Signed Impressions: Service Date/Time: Saturday, October 08, 2016 11:14 - CONCLUSION: 1. Findings very suspicious for ischemic colon. Postsurgical findings with evidence of prior colectomy. There is evidence of bowel wall pneumatosis of the transverse colon in the region of anastomosis. Adjacent small bubbles of extraluminal gas but may be within the portal venous system or free also noted. These findings are highly suspicious for ischemic colon. 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 2. Marked nonspecific distention of the stomach. Alexandru Lynch MD Liver Ultrasound 07/12/16 0000 Signed Impressions: Service Date/Time: Tuesday, July 12, 2016 18:07 - CONCLUSION: 1. No acute abnormality demonstrated. 2. Heterogeneous liver without measurable mass. 3. Small and heterogeneous spleen without a measurable mass. 4. Cortical thinning and scarring of the right kidney. 5. Previous cholecystectomy. Calixto Woodruff MD Chest CT 07/09/16 0000 Signed Impressions: Service Date/Time: Saturday, July 09, 2016 14:43 - CONCLUSION: 1. Small right pleural effusion and minimal right basilar consolidation. 2. 6 mm left basilar nodule. Followup CT chest 6 months recommended. Florian Pepper MD Lower Extremity Ultrasound 06/25/16 0000 Signed Impressions: Service Date/Time: Saturday, June 25, 2016 15:56 - CONCLUSION: Negative exam with no evidence of deep venous thrombosis. Soft tissue edema. Mike Leija MD Port Line Insertion 06/20/16 0000 Signed Impressions: Service Date/Time: Monday, June 20, 2016 08:53 - CONCLUSION: Uncomplicated ultrasound and fluoroscopic guided implanted central venous port catheter placement as described in detail above. An 8 [place] Power port was placed. Kevan Salgado Jr., MD Procedures Stump debridement and wound VAC placement 06/16/16 TPN Skin biopsies, face 07/24/16 Exploratory laparotomy, ileostomy, colostomy, bowel resection 10/08/16 . 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 No other specific skin pathology noted. . (8) pulmonary nodule on CT scan, 2.6 mm at the left base (9) depression (10) COPD, not oxygen dependent (11) history of breast cancer (12) anxiety (13) anemia Symptom Scale: (1) pain 0-10 Scale: 6 (she has been receiving Baxter and parenteral hydromorphone) Comment: Pain has been mostly abdominal and pain related to her multiple skin lesions. . (2) anxiety 0-10 Scale: 4 (she has had occasional doses of Xanax that she says helps, but her anxiety is worsening overall) Comment: Well controlled with scheduled alprazolam. Not needing breakthrough alprazolam at this time. . (3) depression 0-10 Scale: 2 (long-term, was on Celexa at home, now on Zoloft; remains tearful frequently) Comment: Reasonably well controlled with sertraline. . Pertinent Non-Medical Issues Psychosocial: Second marriage for about 1 year, but most of that time in the hospital or SNF. No children, but has close friend Anuradha. Spiritual: Evaluation pending Legal: The patient has capacity for decision-making, and has designated her friend Anuradha and her Dwight as primary and secondary HCS respectively Ethical issues impacting care: None. . Important Contacts Primary HCS, close friend Anuradha Christian [phone] : Dwight Wilson [phone] . Prognosis She has suffered multiple illnesses, infections, and complications during the last 10 months, and now has undergone emergency surgery for more ischemic bowel. Her overall prognosis remains somewhat poor, and she would be an appropriate hospice candidate if her proxy decision makers elected to transition to comfort care. . Code Status: Full Code Plan == FULL CODE -- confirmed 10/16/16 == GOALS: The patient has continued to request AGGRESSIVE CARE. The patient remains at considerable risk for further complications including infections, bowel leak, pneumonia, etc. Her aggressive goals were re-confirmed by [facility] Anuradha and by me. == DECISION-MAKING: The patient has capacity for decision making, and the HCS is her friend Anuradha Christian and her Dwight Wilson as primary and secondary HCS respectively. == SYMPTOMS: * Pain: Now with recent surgery; not needing much hydromorphone * Anxiety: She was definitely improved on the current Xanax dosing. Seems to be more stable == Palliative Care will continue to follow the patient during this hospitalization intermittently to further assist with symptom management and to re-visit goals of medical treatment if there are significant changes in the course of her illness. . . Time Spent Total Floor Time (mins): 38 Face to Face Time (mins): 21 >50% Counseling/Coord of Care: Yes (d/w RN) Attestation To help prompt me to consider important information that might be impacting today's encounter and assessment, information from prior notes written by myself or my colleagues may have been "brought forward" into today's note. My signature on this note, however, is an attestation that I personally performed the exam, history, and/or decision-making noted today, and, unless otherwise indicated, the interactions with patient, family, and staff as well as the review of records all occurred today. I also attest that the listed assessment and stated plan reflect my best clinical judgment today based on the combination of historical information, prior notes, and today's exam/ interactions. When time spent is documented, it refers only to time spent today by the signer, or if indicated, combined time spent today by collaborating physician/nurse practitioner. Dalila Edouard MD Oct 16, 2016 15:13
[2016-10-16] MEDS: HYDROmorphone HCL PF 2 MG/ML VIAL IV PRN (16:04)
[2016-10-16] MEDS: MIRTAZAPINE ODT 15 MG TAB PO SCH (20:22)
[2016-10-16] MEDS: CLINIMIX E 5/25 2000 mL- >42 mls/hr IV-CENTRAL SCH ×3 (20:28)
[2016-10-16] MEDS: cefTRIAXone INJ 2,000 MG in SODIUM CHLORIDE 0.9% INJ 100 ML IV SCH (23:00)
[2016-10-17] VITALS (15 sets, daily range): BP systolic 110–128; BP diastolic 53–61; PULSE 86–112; RESP 12–23; TEMP 97.9–98.9; O2SAT 93–98
[2016-10-17] MEDS: HYDROmorphone HCL PF 1 MG/ML VIAL IV PRN ×7 (00:58→23:06)
[2016-10-17] MEDS: ENALAPRILAT 1.25 MG/ML VIAL IV PUSH SCH ×4 (01:00→17:57)
[2016-10-17] MEDS: METOPROLOL TARTRATE 5 MG/5 ML VIAL IV PUSH SCH ×4 (01:24→17:56)
[2016-10-17] MEDS: VANCOMYCIN INJ 1,350 MG in SODIUM CHLORID 0.9% 500 ML INJ 500 ML IV SCH (01:51)
[2016-10-17] MEDS: INSULIN ASPART SUPPLEMENTAL SCALE SQ SCH ×5 (03:15→22:44)
[2016-10-17] MEDS: metroNIDAZOLE 500 MG INJ 100 ML IV SCH ×3 (07:06→22:45)
[2016-10-17] MEDS: OXYBUTYNIN CHLORIDE 5 MG TAB PO SCH ×3 (07:06→22:44)
[2016-10-17] MEDS: CHLORHEXIDINE 0.12% (ORAL KIT) 15 ML CUP MT SCH ×2 (07:28→20:04)
[2016-10-17] MEDS: FERROUS SULFATE 325 MG (65 MG ELEMENTAL IRON) TAB PO SCH (08:58)
[2016-10-17] MEDS: CALCITRIOL 0.25 MCG CAP PO SCH (08:58)
[2016-10-17] MEDS: ZINC SULFATE 220 MG CAP PO SCH (08:59)
[2016-10-17] MEDS: DILTIAZEM-CD 240 MG CAP ER PO SCH (08:59)
[2016-10-17] MEDS: SODIUM CHLORIDE 0.9% FLUSH 5 ML FLUSH IVF SCH ×2 (08:59→20:04)
[2016-10-17] MEDS: FUROSEMIDE 20 MG/2 ML VIAL IV PUSH SCH ×2 (08:59→16:58)
[2016-10-17] MEDS: RIVAROXABAN 20 MG TAB PO SCH (08:59)
[2016-10-17] MEDS: CALCIUM/VITAMIN D 250 MG/125 U TAB PO SCH ×2 (08:59→20:03)
[2016-10-17] MEDS: MULTIVITAMIN TAB PO SCH (08:59)
[2016-10-17] MEDS: DULoxetine HCl DR 30 MG CAP PO SCH (08:59)
[2016-10-17] MEDS: NYSTATIN 100,000 U/GM PWD 15 GM BTL TOPICAL SCH ×2 (09:00→20:05)
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
[2016-10-17] MEDS: SODIUM CHLOR 0.9% 1000 ML INJ 1,000 ML IV SCH (15:00)
--- NOTE | 2016-10-17 16:19 | HHI.PR ---
Subjective Remarks Follow-up for ischemic bowel, respiratory failure, septic shock. Ms. Wilson is doing well. She has persistent abdominal pain. She is tolerating diet better. Denies any nausea vomiting or fever or chills. Objective Vitals Vital Signs Date Time Temp Pulse Resp B/P Pulse Ox O2 Delivery O2 Flow Rate FiO2 10/17/16 14:00 106 10/17/16 12:00 98.2 98 16 116/57 94 10/17/16 12:00 86 10/17/16 10:00 97 10/17/16 08:00 93 10/17/16 08:00 98.0 94 12 110/53 94 10/17/16 07:38 95 Nasal Cannula 5.00 10/17/16 07:00 94 Nasal Cannula 4.00 10/17/16 06:00 88 10/17/16 04:00 97.9 88 19 111/57 94 10/17/16 04:00 88 10/17/16 02:00 90 10/17/16 00:13 102 10/17/16 00:00 98.9 112 19 110/56 94 10/16/16 23:00 98.6 106 19 118/57 96 10/16/16 22:00 106 10/16/16 21:50 18 10/16/16 20:00 99.6 104 20 118/57 98 10/16/16 20:00 109 10/16/16 19:31 93 Nasal Cannula 5.00 10/16/16 19:15 96 Nasal Cannula 4.00 10/16/16 18:00 109 I/O 10/16/16 10/16/16 10/16/16 10/17/16 10/17/16 10/17/16 07:00 15:00 23:00 07:00 15:00 23:00 Intake Total 1078 ml 1350 ml 660 ml 1558 ml 1540 ml Output Total 1060 ml 1000 ml 1500 ml 1065 ml 1940 ml Balance 18 ml 350 ml -840 ml 493 ml -400 ml Intake Oral 100 ml 210 ml 210 ml 210 ml 420 ml IV Total 307 ml 700 ml 210 ml 559 ml 440 ml TPN/PPN 488 ml 440 ml 240 ml 789 ml 680 ml Lipid 183 ml Output Urine Total 500 ml 700 ml 500 ml 600 ml 1000 ml Stool Total 550 ml 300 ml 1000 ml 465 ml 840 ml Drainage Total 10 ml 0 ml 0 ml 100 ml Result Diagram: 10/15/16 0355 10/15/16 0355 Imaging Last Impressions Chest X-Ray 10/12/16 0600 Signed Impressions: Service Date/Time: September 05:39 - CONCLUSION: No significant change bibasilar consolidation. Interim extubation. Other lines and tubes unchanged, as above. Calixto Woodruff MD Abdomen/Pelvis CT 10/08/16 1057 Signed Impressions: Service Date/Time: Saturday, October 08, 2016 11:14 - CONCLUSION: 1. Findings very suspicious for ischemic colon. Postsurgical findings with evidence of prior colectomy. There is evidence of bowel wall pneumatosis of the transverse colon in the region of anastomosis. Adjacent small bubbles of extraluminal gas but may be within the portal venous system or free also noted. These findings are highly suspicious for ischemic colon. 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 2. Marked nonspecific distention of the stomach. Alexandru Lynch MD Liver Ultrasound 07/12/16 0000 Signed Impressions: Service Date/Time: Tuesday, July 12, 2016 18:07 - CONCLUSION: 1. No acute abnormality demonstrated. 2. Heterogeneous liver without measurable mass. 3. Small and heterogeneous spleen without a measurable mass. 4. Cortical thinning and scarring of the right kidney. 5. Previous cholecystectomy. Calixto Woodruff MD Chest CT 07/09/16 0000 Signed Impressions: Service Date/Time: Saturday, July 09, 2016 14:43 - CONCLUSION: 1. Small right pleural effusion and minimal right basilar consolidation. 2. 6 mm left basilar nodule. Followup CT chest 6 months recommended. Florian Pepper MD Lower Extremity Ultrasound 06/25/16 0000 Signed Impressions: Service Date/Time: Saturday, June 25, 2016 15:56 - CONCLUSION: Negative exam with no evidence of deep venous thrombosis. Soft tissue edema. Mike Leija MD Port Line Insertion 06/20/16 0000 Signed Impressions: Service Date/Time: Monday, June 20, 2016 08:53 - CONCLUSION: Uncomplicated ultrasound and fluoroscopic guided implanted central venous port catheter placement as described in detail above. An 8 [place] Power port was placed. Kevan Salgado Jr., MD Objective Remarks GENERAL: Alert, oriented x 3, NAD, airway intact. SKIN: Warm and dry. HEAD: Normocephalic. EYES: No scleral icterus. No injection or drainage. NECK: Supple, trachea midline. No JVD or lymphadenopathy. Intact airway. CARDIOVASCULAR: Regular rhythm, tachycardic without murmurs, gallops, or rubs. RESPIRATORY: Breath sounds equal bilaterally. No accessory muscle use. GASTROINTESTINAL: Diffuse abdomen diffusely tender to palpation MUSCULOSKELETAL: No cyanosis, or edema. s/p left foot amputation. Procedures Left stump debridement by Dr. Hill on 06/15/16 Bedside debridement of preperitoneal fat that was protruding from the abdominal fistula 09/01/16 central line placement Exploratory laparotomy, resection of the anterior abdominal wall fistula tract, resection of the transverse colon to small bowel anastomosis, lysis of adhesions of the small bowel with repair of two enterotomies, right-sided ileostomy, left-sided mucous fistula and partial removal of a ventral hernia mesh. Date of Insertion: Jun 20, 2016 Side: Left A/P Problem List: (1) Septic shock ICD Code: A41.9 Status: Acute (2) Acute hypoxemic respiratory failure ICD Code: J96.01 Status: Acute (3) Ischemic colitis ICD Code: K55.9 Status: Resolved (4) COPD (chronic obstructive pulmonary disease) ICD Code: J44.9 Status: Chronic (5) depression Status: Chronic (6) Peripheral neuropathy ICD Code: G62.9 Status: Chronic (7) Chronic diastolic (congestive) heart failure ICD Code: I50.32 Status: Chronic (8) ZIA (acute kidney injury) ICD Code: N17.9 Status: Resolved (9) emergent Ex Lap for ischemic bowel/perforation 10/08/16 Status: Acute (10) Acute blood loss anemia ICD Code: D62 Status: Acute Assessment and Plan Ms. Wilson is a pleasant 71 year old female who was admitted to the hospital in Oct 2015 due to ischemic bowel and subsequently underwent resection of large , small bowel and cholecystectomy. 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 Patient was discharged to SNF but returned to the hospital due to post surgical complications. She underwent left foot amputation and subsequently had a lot of post surgical complications requiring wound vac. Her surgeon (Dr. Olvera) determined that patient was too high risk for further surgical intervention. Patient was on TPN and after discussing with Dr. J we switched patient to PO diet two days ago. Based on patient's desires, we spoke to Dr. Hill regarding a second surgical opinion. Dr. Hill was kind enough to consult Dr. Grajeda who evaluated patient on 10/07/2016. On 2015, patient was transferred to the main campus after she complained of severe abdominal pain and CT scan showed ischemic bowel. Due to septic shock, patient was started on Vancomycin and Cefepime prior to transfer. - Septic shock - Ischemic colitis - s/p Ex lap, resection of anterior abdominal wall fistula tract, resection of transverse colon to small bowel anastomosis, right sided ileostomy, left sided mucous fistula and partial removal of a ventral hernia mesh. - ID is following. Currently on Ceftriaxone, Flagyl and IV vancomycin. - If blood cultures are negative in 3-5 days, we will discontinue Vancomycin. - Diet advanced by Dr. Hill. - Continue PT. - COPD - Acute hypoxemic respiratory failure - s/p extubation on 10/10/2016. - Continue bronchodilators, Incentive spirometry. - Acute kidney injury - resolved. Creatinine 2.70 ---> 0.78. - Acute blood loss anemia - s/p 4 units of PRBCs on 10/08/2016. Full code. Xarelto. Protonix IV. Potential transfer to the floor on 10/18/2016. Elen Rivers DO Oct 17, 2016 4:19 pm
--- NOTE | 2016-10-17 19:28 | HHI.IDPN ---
Subjective Subjective Remarks Extubated fully awake and conversant remains on TPN takes full diet off pressors having very liquid stool ointo colostomy co abdominal pain Antibiotics Vancomycin CFTX flagyl Lines Port Past Medical History 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 Vital Signs Date Time Temp Pulse Resp B/P Pulse Ox O2 Delivery O2 Flow Rate FiO2 10/17/16 19:14 93 Nasal Cannula 5.00 10/17/16 18:00 101 10/17/16 16:00 98.0 95 16 128/61 96 10/17/16 16:00 95 10/17/16 14:00 106 10/17/16 12:00 98.2 98 16 116/57 94 10/17/16 12:00 86 10/17/16 10:00 97 10/17/16 08:00 93 10/17/16 08:00 98.0 94 12 110/53 94 10/17/16 07:38 95 Nasal Cannula 5.00 10/17/16 07:00 94 Nasal Cannula 4.00 10/17/16 06:00 88 10/17/16 04:00 97.9 88 19 111/57 94 10/17/16 04:00 88 10/17/16 02:00 90 10/17/16 00:13 102 10/17/16 00:00 98.9 112 19 110/56 94 10/16/16 23:00 98.6 106 19 118/57 96 10/16/16 22:00 106 10/16/16 21:50 18 10/16/16 20:00 99.6 104 20 118/57 98 10/16/16 20:00 109 10/16/16 19:31 93 Nasal Cannula 5.00 10/16/16 10/16/16 10/17/16 15:00 23:00 07:00 Intake Total 1350 ml 660 ml 1558 ml Output Total 1000 ml 1500 ml 1065 ml Balance 350 ml -840 ml 493 ml Intake Oral 210 ml 210 ml 210 ml IV Total 700 ml 210 ml 559 ml TPN/PPN 440 ml 240 ml 789 ml Output Urine Total 700 ml 500 ml 600 ml Stool Total 300 ml 1000 ml 465 ml Drainage Total 0 ml 0 ml Imaging Last Impressions Chest X-Ray 10/12/16 0600 Signed Impressions: Service Date/Time: September 05:39 - CONCLUSION: No significant change bibasilar consolidation. Interim extubation. Other lines and tubes unchanged, as above. Calixto Woodruff MD Abdomen/Pelvis CT 10/08/16 1057 Signed Impressions: Service Date/Time: Saturday, October 08, 2016 11:14 - CONCLUSION: 1. Findings very suspicious for ischemic colon. Postsurgical findings with evidence of prior colectomy. There is evidence of bowel wall pneumatosis of the transverse colon in the region of anastomosis. Adjacent small bubbles of extraluminal gas but may be within the portal venous system or free also noted. These findings are highly suspicious for ischemic colon. 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 2. Marked nonspecific distention of the stomach. Alexandru Lynch MD Liver Ultrasound 07/12/16 0000 Signed Impressions: Service Date/Time: Tuesday, July 12, 2016 18:07 - CONCLUSION: 1. No acute abnormality demonstrated. 2. Heterogeneous liver without measurable mass. 3. Small and heterogeneous spleen without a measurable mass. 4. Cortical thinning and scarring of the right kidney. 5. Previous cholecystectomy. Calixto Woodruff MD Chest CT 07/09/16 0000 Signed Impressions: Service Date/Time: Saturday, July 09, 2016 14:43 - CONCLUSION: 1. Small right pleural effusion and minimal right basilar consolidation. 2. 6 mm left basilar nodule. Followup CT chest 6 months recommended. Florian Pepper MD Lower Extremity Ultrasound 06/25/16 0000 Signed Impressions: Service Date/Time: Saturday, June 25, 2016 15:56 - CONCLUSION: Negative exam with no evidence of deep venous thrombosis. Soft tissue edema. Mike Leija MD Port Line Insertion 06/20/16 0000 Signed Impressions: Service Date/Time: Monday, June 20, 2016 08:53 - CONCLUSION: Uncomplicated ultrasound and fluoroscopic guided implanted central venous port catheter placement as described in detail above. An 8 [place] Power port was placed. Kevan Salgado Jr., MD Physical Exam CONSTITUTIONAL/GENERAL: fully awake and alert Conversant TUBES/LINES/DRAINS: PORT in place L chest , no skin changes New ly placed R IJ SKIN: No jaundice, rashes, or lesions. Skin temperature appropriate. Not diaphoretic. HEAD: Atraumatic. Normocephalic. EYES: Pupils equal and round and reactive. Extraocular motions intact. No scleral icterus. No injection or drainage. Fundi not examined. ENT: Oral mucosae without visible erythema, exudates, masses, or lesions. CARDIOVASCULAR: Regular rate and rhythm without murmurs, gallops, or rubs. No JVD. RESPIRATORY/CHEST: Symmetric, unlabored respirations. Clear to auscultation. Breath sounds equal bilaterally. No wheezes, rales, or rhonchi. GASTROINTESTINAL: Abdomen with VAC in place with serosang d/c; much less erythem present minimally distended mildly tender to palpation + BS Mucoid fistula in LLQ with dark old appearing blood present and ileostomy in RLQ with very liquid light brown stool GENITOURINARY: Without palpable bladder distension. Hamlin catheter in place with clear yellow urine MUSCULOSKELETAL: Extremities without clubbing, cyanosis, + 1 edema. NEUROLOGICAL: awake alert conversant Assessment & Plan Remarks IMPRESSION ischemic bowel, perforation sp emergent resection 10/08 Sepsis 2/2 ischemic bowel and perforation lorenzo S Kleb pneumo bacteremia staph epi bacteremia, ? clin significance Recent h/o Infection LBKA stump, C/S Klebsiella ESBL+ and Morganella Multiple Abx allergy - has tolerated Ertapenem and Cephalosporins in the past PVD Recent Staph hominis sepsis, has MV vegetation sp tx with vancomycvin RECOMMENDATION cont rocephin cont flagyl dc Vancomycin dw RN Roxnaa Arroyo MD Oct 17, 2016 19:28
[2016-10-17] MEDS: MIRTAZAPINE ODT 15 MG TAB PO SCH (20:03)
[2016-10-17] MEDS: CLINIMIX E 5/25 2000 mL- >42 mls/hr IV-CENTRAL SCH ×3 (20:04)
[2016-10-17] MEDS: cefTRIAXone INJ 2,000 MG in SODIUM CHLORIDE 0.9% INJ 100 ML IV SCH (22:45)
[2016-10-18] VITALS (15 sets, daily range): BP systolic 103–126; BP diastolic 51–59; PULSE 85–127; RESP 17–27; TEMP 97.9–103; O2SAT 92–96
[2016-10-18] MEDS: ENALAPRILAT 1.25 MG/ML VIAL IV PUSH SCH ×2 (01:00→07:00)
[2016-10-18] MEDS: METOPROLOL TARTRATE 5 MG/5 ML VIAL IV PUSH SCH ×2 (02:04→07:33)
[2016-10-18] MEDS: HYDROmorphone HCL PF 1 MG/ML VIAL IV PRN ×7 (02:08→22:56)
[2016-10-18] MEDS: INSULIN ASPART SUPPLEMENTAL SCALE SQ SCH ×4 (03:24→20:16)
[2016-10-18] MEDS: OXYBUTYNIN CHLORIDE 5 MG TAB PO SCH ×3 (05:03→20:22)
[2016-10-18] MEDS: metroNIDAZOLE 500 MG INJ 100 ML IV SCH ×3 (05:03→20:22)
[2016-10-18] MEDS: ONDANSETRON HCL 4 MG/2 ML VIAL IV PUSH PRN (05:04)
[2016-10-18] MEDS: CHLORHEXIDINE 0.12% (ORAL KIT) 15 ML CUP MT SCH ×2 (08:00→20:00)
[2016-10-18] MEDS: MULTIVITAMIN TAB PO SCH (08:03)
[2016-10-18] MEDS: CALCIUM/VITAMIN D 250 MG/125 U TAB PO SCH ×2 (08:03→20:13)
[2016-10-18] MEDS: ZINC SULFATE 220 MG CAP PO SCH (08:04)
[2016-10-18] MEDS: FUROSEMIDE 20 MG/2 ML VIAL IV PUSH SCH (08:04)
[2016-10-18] MEDS: NYSTATIN 100,000 U/GM PWD 15 GM BTL TOPICAL SCH ×2 (08:04→20:14)
[2016-10-18] MEDS: DILTIAZEM-CD 240 MG CAP ER PO SCH (08:04)
[2016-10-18] MEDS: RIVAROXABAN 20 MG TAB PO SCH (08:04)
[2016-10-18] MEDS: FERROUS SULFATE 325 MG (65 MG ELEMENTAL IRON) TAB PO SCH (08:04)
[2016-10-18] MEDS: DULoxetine HCl DR 30 MG CAP PO SCH (08:04)
[2016-10-18] MEDS: CALCITRIOL 0.25 MCG CAP PO SCH (08:04)
[2016-10-18] MEDS: SODIUM CHLORIDE 0.9% FLUSH 5 ML FLUSH IVF SCH ×2 (08:04→20:17)
[2016-10-18] MEDS: LORazepam 2 MG/ML VIAL IV PRN (08:32)
[2016-10-18] MEDS ORDERED: METOPROLOL SUCCINATE 50 MG EXTENDED RELEASE TAB PO SCH (10:45)
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
[2016-10-18] MEDS ORDERED: PHARMACY ORDERED LAB XX ONE (13:45)
--- NOTE | 2016-10-18 13:54 | HHI.PR ---
Subjective Remarks Follow-up for ischemic bowel, respiratory failure, septic shock. Ms. Wilson has persistent abdominal pain. No fever, chills. Tolerating diet but not great. Objective Vitals Vital Signs Date Time Temp Pulse Resp B/P Pulse Ox O2 Delivery O2 Flow Rate FiO2 10/18/16 12:00 97.9 96 22 108/53 95 10/18/16 12:00 96 10/18/16 11:43 17 10/18/16 10:00 94 10/18/16 08:00 89 10/18/16 08:00 98.4 86 21 126/57 95 10/18/16 07:44 96 Nasal Cannula 5.00 10/18/16 07:00 93 Nasal Cannula 5.00 10/18/16 06:00 89 10/18/16 04:00 85 10/18/16 04:00 98.8 85 21 111/59 92 10/18/16 02:00 101 10/18/16 00:00 103 10/18/16 00:00 98.9 103 17 116/58 93 10/17/16 22:00 101 10/17/16 20:00 101 10/17/16 20:00 98.0 101 23 117/58 98 10/17/16 19:14 93 Nasal Cannula 5.00 10/17/16 19:00 94 Nasal Cannula 5.00 10/17/16 18:00 101 10/17/16 16:00 98.0 95 16 128/61 96 10/17/16 16:00 95 10/17/16 14:00 106 I/O 10/17/16 10/17/16 10/17/16 10/18/16 10/18/16 10/18/16 07:00 15:00 23:00 07:00 15:00 23:00 Intake Total 1558 ml 1540 ml 973 ml 1174 ml Output Total 1065 ml 1940 ml 2025 ml 800 ml Balance 493 ml -400 ml -1052 ml 374 ml Intake Oral 210 ml 420 ml 180 ml 240 ml IV Total 559 ml 440 ml 327 ml 475 ml TPN/PPN 789 ml 680 ml 466 ml 459 ml Output Urine Total 600 ml 1000 ml 850 ml 325 ml Stool Total 465 ml 840 ml 1150 ml 450 ml Drainage Total 0 ml 100 ml 25 ml 25 ml Result Diagram: 10/15/16 0355 10/15/16 0355 Imaging Last Impressions Chest X-Ray 10/12/16 0600 Signed Impressions: Service Date/Time: September 05:39 - CONCLUSION: No significant change bibasilar consolidation. Interim extubation. Other lines and tubes unchanged, as above. Calixto Woodruff MD Abdomen/Pelvis CT 10/08/16 1057 Signed Impressions: Service Date/Time: Saturday, October 08, 2016 11:14 - CONCLUSION: 1. Findings very suspicious for ischemic colon. Postsurgical findings with evidence of prior colectomy. There is evidence of bowel wall pneumatosis of the transverse colon in the region of anastomosis. Adjacent small bubbles of extraluminal gas but may be within the portal venous system or free also noted. These findings are highly suspicious for ischemic colon. 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 2. Marked nonspecific distention of the stomach. Alexandru Lynch MD Liver Ultrasound 07/12/16 0000 Signed Impressions: Service Date/Time: Tuesday, July 12, 2016 18:07 - CONCLUSION: 1. No acute abnormality demonstrated. 2. Heterogeneous liver without measurable mass. 3. Small and heterogeneous spleen without a measurable mass. 4. Cortical thinning and scarring of the right kidney. 5. Previous cholecystectomy. Calixto Woodruff MD Chest CT 07/09/16 0000 Signed Impressions: Service Date/Time: Saturday, July 09, 2016 14:43 - CONCLUSION: 1. Small right pleural effusion and minimal right basilar consolidation. 2. 6 mm left basilar nodule. Followup CT chest 6 months recommended. Florian Pepper MD Lower Extremity Ultrasound 06/25/16 0000 Signed Impressions: Service Date/Time: Saturday, June 25, 2016 15:56 - CONCLUSION: Negative exam with no evidence of deep venous thrombosis. Soft tissue edema. Mike Leija MD Port Line Insertion 06/20/16 0000 Signed Impressions: Service Date/Time: Monday, June 20, 2016 08:53 - CONCLUSION: Uncomplicated ultrasound and fluoroscopic guided implanted central venous port catheter placement as described in detail above. An 8 Divehi Power port was placed. Kevan Salgado Jr., MD Objective Remarks GENERAL: Alert, oriented x 3, NAD, airway intact. SKIN: Warm and dry. HEAD: Normocephalic. EYES: No scleral icterus. No injection or drainage. NECK: Supple, trachea midline. No JVD or lymphadenopathy. Intact airway. CARDIOVASCULAR: Regular rhythm, tachycardic without murmurs, gallops, or rubs. RESPIRATORY: Breath sounds equal bilaterally. No accessory muscle use. GASTROINTESTINAL: Diffuse abdomen diffusely tender to palpation MUSCULOSKELETAL: No cyanosis, or edema. s/p left foot amputation. Procedures Left stump debridement by Dr. Hill on 06/15/16 Bedside debridement of preperitoneal fat that was protruding from the abdominal fistula 09/01/16 central line placement Exploratory laparotomy, resection of the anterior abdominal wall fistula tract, resection of the transverse colon to small bowel anastomosis, lysis of adhesions of the small bowel with repair of two enterotomies, right-sided ileostomy, left-sided mucous fistula and partial removal of a ventral hernia mesh. Date of Insertion: Jun 20, 2016 Side: Left A/P Problem List: (1) Septic shock ICD Code: A41.9 Status: Acute (2) Acute hypoxemic respiratory failure ICD Code: J96.01 Status: Acute (3) Ischemic colitis ICD Code: K55.9 Status: Resolved (4) COPD (chronic obstructive pulmonary disease) ICD Code: J44.9 Status: Chronic (5) depression Status: Chronic (6) Peripheral neuropathy ICD Code: G62.9 Status: Chronic (7) Chronic diastolic (congestive) heart failure ICD Code: I50.32 Status: Chronic (8) ZIA (acute kidney injury) ICD Code: N17.9 Status: Resolved (9) emergent Ex Lap for ischemic bowel/perforation 10/08/16 Status: Acute (10) Acute blood loss anemia ICD Code: D62 Status: Acute Assessment and Plan Ms. Wilson is a pleasant 71 year old female who was admitted to the hospital in Oct 2015 due to ischemic bowel and subsequently underwent resection of large , small bowel and cholecystectomy. 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 Patient was discharged to SNF but returned to the hospital due to post surgical complications. She underwent left foot amputation and subsequently had a lot of post surgical complications requiring wound vac. Her surgeon (Dr. Olvera) determined that patient was too high risk for further surgical intervention. Patient was on TPN and after discussing with Dr. Hill we switched patient to PO diet two days ago. Based on patient's desires, we spoke to Dr. Hill regarding a second surgical opinion. Dr. Hill was kind enough to consult Dr. Grajeda who evaluated patient on 10/07/2016. On 2015, patient was transferred to the main campus after she complained of severe abdominal pain and CT scan showed ischemic bowel. Due to septic shock, patient was started on Vancomycin and Cefepime prior to transfer. - Septic shock - Ischemic colitis - s/p Ex lap, resection of anterior abdominal wall fistula tract, resection of transverse colon to small bowel anastomosis, right sided ileostomy, left sided mucous fistula and partial removal of a ventral hernia mesh. - ID is following. Currently on Ceftriaxone, Flagyl. IV vancomycin discontinued on 10/17/2016. - Continue PT. - COPD - Acute hypoxemic respiratory failure - s/p extubation on 10/10/2016. - Continue bronchodilators, Incentive spirometry. - Acute kidney injury - resolved. Creatinine 2.70 ---> 0.78. - Acute blood loss anemia - s/p 4 units of PRBCs on 10/08/2016. Full code. Xarelto. Protonix IV. If patient remains stable, patient can be transferred back to [facility]th floor on 10/19/2016. Elen Rivers DO Oct 18, 2016 1:54 pm
[2016-10-18] MEDS: SODIUM CHLOR 0.9% 1000 ML INJ 1,000 ML IV SCH (15:00)
[2016-10-18] MEDS: HYDROmorphone HCL PF 2 MG/ML VIAL IV PRN (15:00)
[2016-10-18] MEDS ORDERED: FUROSEMIDE 20 MG TAB PO SCH (18:00)
[2016-10-18] MEDS: ACETAMINOPHEN 325 MG TAB PO PRN (20:13)
[2016-10-18] MEDS: MIRTAZAPINE ODT 15 MG TAB PO SCH (20:13)
[2016-10-18] MEDS: FAT EMULSION 20% INJ 250 ML (Twice weekly over 8 hours) IV-CENTRAL SCH (20:16)
[2016-10-18] MEDS: CLINIMIX E 5/25 2000 mL- >42 mls/hr IV-CENTRAL SCH ×3 (20:16)
[2016-10-18] MEDS: RESP: ALBUTEROL 2.5 MG/IPRATROPIUM 0.5 MG NEB (PRN) NEB (21:09)
[2016-10-18] MEDS ORDERED: ACETAMINOPHEN 1000 MG/100 ML VIAL IV ONE (22:00)
[2016-10-18] MEDS: cefTRIAXone INJ 2,000 MG in SODIUM CHLORIDE 0.9% INJ 100 ML IV SCH (22:25)
--- NOTE | 2016-10-18 22:30 | RADRPT ---
EXAM DATE/TIME: 10/18/2016 22:13 [facility] COMPARISON: CHEST SINGLE AP, October 12, 2016, 5:39. INDICATIONS : Fever MEDICAL HISTORY : None. SURGICAL HISTORY : None. ENCOUNTER: Subsequent ACUITY: 2 weeks PAIN SCORE: 0/10 LOCATION: Bilateral chest FINDINGS: A single view of the chest demonstrates the lungs to be symmetrically aerated without evidence of mas s, infiltrate or effusion. The cardiomediastinal contours are unremarkable. Osseous structures are intact. Left port catheter tip overlies the SVC. Surgical clips overlie the right breast and axilla. CONCLUSION: No acute disease. Rishi Dacosta MD on October 18, 2016 at 22:28 Board Certified Radiologist. This report was verified electronically.
[2016-10-18 22:47] LABS: AUTOMATED NEUTROPHIL # 12.4 TH/MM3 (1.8-7.7); BASOPHIL % 0.3 % (0.0-2.0); EOSINOPHIL # 0.2 TH/MM3 (0-0.4); EOSINOPHIL % 1.2 % (0.0-4.0); HEMATOCRIT 30.9 % (35.0-46.0); HEMO FLAGS DIFF FINAL; LYMPH % 5.7 % (9.0-44.0); LYMPHOCYTE # 0.8 TH/MM3 (1.0-4.8); MEAN CELL VOLUME 85.2 FL (80.0-100.0); MEAN CORPUSCULAR HEMOGLOBIN 28.9 PG (27.0-34.0); MEAN CORPUSCULAR HGB CONC 33.9 % (32.0-36.0); MONO % 2.7 % (0.0-8.0); NEUT % 90.1 % (16.0-70.0); PLATELET COUNT 632 TH/MM3 (150-450); RED BLOOD COUNT 3.62 MIL/MM3 (4.00-5.30); RED CELL DISTRIBUTION WIDTH 16.6 % (11.6-17.2); WHITE BLOOD COUNT 13.8 TH/MM3 (4.0-11.0)
[2016-10-18] MEDS: METOPROLOL TARTRATE 5 MG/5 ML VIAL IV PUSH PRN (22:55)
[2016-10-18 23:03] LABS: ANION GAP 7 MEQ/L (5-15); AST (GOT) 14 U/L (15-37); BICARBONATE 30.5 MEQ/L (21.0-32.0); BLOOD UREA NITROGEN 24 MG/DL (7-18); CHLORIDE 96 MEQ/L (98-107); GLOMERULAR FILTRATION RATE 57 ML/MIN (>89); MAGNESIUM 1.8 MG/DL (1.5-2.5); POTASSIUM 3.9 MEQ/L (3.5-5.1); SODIUM (NA) 133 MEQ/L (136-145)
[2016-10-18 23:06] LABS: ALKALINE PHOSPHATASE 168 U/L (45-117); ALT (GPT) 15 U/L (10-53); TOTAL BILIRUBIN ADULT 0.7 MG/DL (0.2-1.0)
[2016-10-18] MEDS ORDERED: VANCOMYCIN INJ 1,000 MG in SODIUM CHLOR 0.9% 250 ML INJ 250 ML IV ONE (23:45)
[2016-10-18] MEDS ORDERED: SODIUM CHLOR 0.9% 1000 ML INJ 1,000 ML IV SCH (23:45)
[2016-10-18 23:46] LABS: BLOOD, URINE NEG (NEG); COMMENT (UR) CATH-CULT NOT IND; CULTURE IF INDICATED CATH CULTURE NOT IND; GLUCOSE,URINE NEG (NEG); KETONE, URINE NEG (NEG); MUCUS URINE FEW /lpf (OCC); NITRITE,URINE NEG (NEG); RENAL EPITHELIAL CELLS <1 /hpf; SQUAMOUS EPITHELIAL CELL URINE <1 /hpf (0-5); TRANSITIONAL EPI CELLS, URINE <1 /hpf; URINE COLOR YELLOW (YELLW/STRAW)
[2016-10-19] VITALS (17 sets, daily range): BP systolic 82–125; BP diastolic 50–78; PULSE 94–130; RESP 15–29; TEMP 98.3–103.3; O2SAT 94–96
[2016-10-19] MEDS: LORazepam 2 MG/ML VIAL IV PRN ×2 (00:28→12:40)
[2016-10-19] MEDS: HYDROmorphone HCL PF 1 MG/ML VIAL IV PRN ×4 (02:19→23:47)
[2016-10-19] MEDS: RESP: ALBUTEROL 2.5 MG/IPRATROPIUM 0.5 MG NEB (PRN) NEB (02:40)
[2016-10-19 03:05] LABS: LACTIC ACID GHOST NOT REPORTABLE
[2016-10-19] MEDS: INSULIN ASPART SUPPLEMENTAL SCALE SQ SCH ×4 (03:53→21:07)
[2016-10-19 03:54] LABS: AUTOMATED NEUTROPHIL # 12.8 TH/MM3 (1.8-7.7); BASOPHIL # 0.1 TH/MM3 (0-0.2); BASOPHIL % 0.8 % (0.0-2.0); EOSINOPHIL # 0.1 TH/MM3 (0-0.4); EOSINOPHIL % 0.4 % (0.0-4.0); HEMATOCRIT 29.9 % (35.0-46.0); HEMO FLAGS DIFF FINAL; LYMPH % 5.9 % (9.0-44.0); LYMPHOCYTE # 0.8 TH/MM3 (1.0-4.8); MEAN CELL VOLUME 86.1 FL (80.0-100.0); MEAN CORPUSCULAR HEMOGLOBIN 29.1 PG (27.0-34.0); MEAN CORPUSCULAR HGB CONC 33.8 % (32.0-36.0); MONO % 1.3 % (0.0-8.0); NEUT % 91.6 % (16.0-70.0); PLATELET COUNT 575 TH/MM3 (150-450); RED BLOOD COUNT 3.47 MIL/MM3 (4.00-5.30); RED CELL DISTRIBUTION WIDTH 16.3 % (11.6-17.2)
[2016-10-19] MEDS: ACETAMINOPHEN 325 MG TAB PO PRN ×2 (04:14→18:20)
[2016-10-19 04:24] LABS: ALKALINE PHOSPHATASE 148 U/L (45-117); TOTAL BILIRUBIN ADULT 0.9 MG/DL (0.2-1.0)
[2016-10-19 04:25] LABS: ACETAMINOPHEN LESS THAN 2.0 MCG/ML (10.0-30.0); ALT (GPT) 14 U/L (10-53); ANION GAP 10 MEQ/L (5-15); AST (GOT) 19 U/L (15-37); BICARBONATE 28.6 MEQ/L (21.0-32.0); BLOOD UREA NITROGEN 25 MG/DL (7-18); CHLORIDE 96 MEQ/L (98-107); GLOMERULAR FILTRATION RATE 53 ML/MIN (>89); POTASSIUM 3.9 MEQ/L (3.5-5.1); SODIUM (NA) 135 MEQ/L (136-145)
[2016-10-19] MEDS: metroNIDAZOLE 500 MG INJ 100 ML IV SCH ×3 (05:06→21:07)
[2016-10-19] MEDS: OXYBUTYNIN CHLORIDE 5 MG TAB PO SCH ×3 (05:06→21:06)
--- NOTE | 2016-10-19 05:39 | HHI.PR ---
Addendum to Inpatient Note Addendum Reason: Additional Documentation Additional Information pt was somewhat hypotensive, though MAP >60 tachycardic around 110-120 fever 103 recent stopping of vanco hx of diastolic heart failure lactate slightly going up- though had much elevated lactate initially due to ischemic bowel labs- cbc, bmp- showed hemoconcentration - thus will hydrate cautiously ns @84cc/hr till NOON - reassess lung exam by primary team and decide on further need - restarted vanco - to please discuss with ID service on antibiotic choice - blood cx, ua, urine cx, cxr - hold antihypertensives - small dose metoprolol iv prn for HR >120 - but HR is mainly high due to sepsis/dehydration Etta Bess MD Oct 19, 2016 05:39
[2016-10-19] MEDS ORDERED: SODIUM CHLOR 0.9% 1000 ML INJ 1,000 ML IV SCH (05:45)
[2016-10-19] MEDS: CHLORHEXIDINE 0.12% (ORAL KIT) 15 ML CUP MT SCH ×2 (08:00→20:00)
[2016-10-19] MEDS: NYSTATIN 100,000 U/GM PWD 15 GM BTL TOPICAL SCH ×2 (09:00→20:15)
[2016-10-19] MEDS: SODIUM CHLORIDE 0.9% FLUSH 5 ML FLUSH IVF SCH ×2 (09:00→20:15)
[2016-10-19] MEDS: ZINC SULFATE 220 MG CAP PO SCH (09:00)
[2016-10-19] MEDS: CALCITRIOL 0.25 MCG CAP PO SCH (10:18)
[2016-10-19] MEDS: MULTIVITAMIN TAB PO SCH (10:18)
[2016-10-19] MEDS: CALCIUM/VITAMIN D 250 MG/125 U TAB PO SCH ×2 (10:18→20:14)
[2016-10-19] MEDS: FERROUS SULFATE 325 MG (65 MG ELEMENTAL IRON) TAB PO SCH (10:18)
[2016-10-19] MEDS: DULoxetine HCl DR 30 MG CAP PO SCH (10:24)
[2016-10-19] MEDS: RIVAROXABAN 20 MG TAB PO SCH (10:24)
[2016-10-19] MEDS ORDERED: DIATRIZOATE MEGLUM/DIATRIZOATE SOD 9 ML CUP PO ONE (10:45)
[2016-10-19] MEDS ORDERED: IOHEXOL 350 MG/ML 10 ML VIAL (for RAD DIAG) IV ONE (15:12)
--- NOTE | 2016-10-19 15:41 | RADRPT ---
EXAM DATE/TIME: 10/19/2016 15:10 [facility] COMPARISON: CT ABDOMEN & PELVIS W CONTRAST, October 08, 2016, 11:14. INDICATIONS : Post-op colon resection and fistula correction, now with fever; possible infection. IV CONTRAST: 71 cc Omnipaque 350 (iohexol) IV ORAL CONTRAST: Prescribed oral contrast ingested. RADIATION DOSE: 8.65 CTDIvol (mGy) MEDICAL HISTORY : Cardiovascular disease. Chronic obstructive pulmonary disease. Hypertension. Skin and breast cancer; peritoneal abscess. SURGICAL HISTORY : Mastectomy, right. Hysterectomy. Colon resection. ENCOUNTER: Initial ACUITY: 2 weeks PAIN SCALE: 5/10 LOCATION: Abdomen/pelvis TECHNIQUE: Volumetric scanning of the abdomen and pelvis was performed. Using automated exposure control and ad justment of the mA and/or kV according to patient size, radiation dose was kept as low as reasonably achievable to obtain optimal diagnostic quality images. FINDINGS: LOWER LUNGS: There is consolidation versus volume loss in the right lower lobe and there is a small left pleural e ffusion with compressive atelectasis. Coronary artery calcification is present. LIVER: No focal liver lesion is identified. There is been prior cholecystectomy. There is a subcapsular flui d collection along the anterior aspect of the left lobe measuring approximately 1.7 x 0.7 cm. There is no dilation of the biliary tree. SPLEEN: Within normal limits. There is a small volume of perisplenic free fluid. PANCREAS: Within normal limits. KIDNEYS: There is abnormal lobulation and scarring with atrophy in the kidneys bilaterally. No hydronephrosis, stone, or mass is identified. ADRENAL GLANDS: Within normal limits. VASCULAR: There is no aortic aneurysm. There is moderate to severe atherosclerotic disease. BOWEL/MESENTERY: The stomach demonstrates no abnormality. The duodenum is within normal limits. The small bowel loops in the right midabdomen and right lower quadrant demonstrate abnormal wall thickening and there is ma rked mesenteric edema. There is a right abdominal wall ileostomy. Adjacent to the distal ileal loop e xtending into the ostomy there are 2 rim-enhancing fluid collections measuring approximately 2.1 x 1. 6 cm and 2.6 x 1.3 cm. There is a left intra-abdominal wall colostomy. Distal colon demonstrates no a bnormality. There is no free air. Small volume of free fluid is present in the pelvis and there is a small volume of perisplenic free fluid.ABDOMINAL WALL: There are ostomies present bilaterally that have a normal appearance. Surgical changes are present al gnozi the anterior abdominal wall musculature. There is likely a midline wound. The RETROPERITONEUM: There is no lymphadenopathy. BLADDER: Decompressed with a Hamlin catheter in place. Air is present within the lumen. REPRODUCTIVE: The uterus is absent. No adnexal abnormality is identified. INGUINAL: There is no lymphadenopathy or hernia. MUSCULOSKELETAL: No acute osseous abnormality is identified. CONCLUSION: 1. There are 2 small rim-enhancing fluid collections in the right mid abdomen adjacent to the distal ileum that extends into the ileostomy. These measure 2.6 x 1.3 cm and 2.1 x 1.6 cm. These could repre sent infected fluid collections but are too small to place a drainage catheter. There is an additiona l small subcapsular fluid collection along the anterior left lobe of the liver. 2. Additionally, there is wall thickening of the distal ileal loops along with marked mesenteric emile a. 3. There is a small volume of free fluid in the left upper quadrant around the spleen and in the pelv is. 4. There is a new small left pleural effusion with compressive atelectasis and right lower lobe volum e loss versus airspace consolidation. Calixto Uriostegui MD on October 19, 2016 at 15:28 Board Certified Radiologist. This report was verified electronically.
[2016-10-19] MEDS: METOPROLOL TARTRATE 5 MG/5 ML VIAL IV PUSH PRN (16:52)
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
[2016-10-19 18:57] LABS: AUTOMATED NEUTROPHIL # 6.9 TH/MM3 (1.8-7.7); BASOPHIL % 0.4 % (0.0-2.0); EOSINOPHIL % 0.2 % (0.0-4.0); HEMATOCRIT 28.8 % (35.0-46.0); HEMO FLAGS DIFF FINAL; LYMPH % 6.5 % (9.0-44.0); LYMPHOCYTE # 0.5 TH/MM3 (1.0-4.8); MEAN CELL VOLUME 85.2 FL (80.0-100.0); MEAN CORPUSCULAR HEMOGLOBIN 28.6 PG (27.0-34.0); MEAN CORPUSCULAR HGB CONC 33.6 % (32.0-36.0); MONO % 1.5 % (0.0-8.0); NEUT % 91.4 % (16.0-70.0); PLATELET COUNT 493 TH/MM3 (150-450); RED BLOOD COUNT 3.38 MIL/MM3 (4.00-5.30); RED CELL DISTRIBUTION WIDTH 16.2 % (11.6-17.2); WHITE BLOOD COUNT 7.6 TH/MM3 (4.0-11.0)
[2016-10-19 19:16] LABS: ANION GAP 8 MEQ/L (5-15); AST (GOT) 28 U/L (15-37); BICARBONATE 27.6 MEQ/L (21.0-32.0); BLOOD UREA NITROGEN 22 MG/DL (7-18); CHLORIDE 96 MEQ/L (98-107); GLOMERULAR FILTRATION RATE 60 ML/MIN (>89); POTASSIUM 3.8 MEQ/L (3.5-5.1); SODIUM (NA) 132 MEQ/L (136-145)
[2016-10-19 19:19] LABS: ALKALINE PHOSPHATASE 132 U/L (45-117); ALT (GPT) 15 U/L (10-53); TOTAL BILIRUBIN ADULT 0.8 MG/DL (0.2-1.0)
[2016-10-19] MEDS: MIRTAZAPINE ODT 15 MG TAB PO SCH (20:14)
[2016-10-19] MEDS: CLINIMIX E 5/25 2000 mL- >42 mls/hr IV-CENTRAL SCH ×3 (20:14)
--- NOTE | 2016-10-19 22:01 | HHI.PR ---
Subjective Remarks patient seen today around noon. Patient says she feels about the same as yesterday. Denies any chest pain or shortness of breath. Denies any increase in abdominal pain. Discussed with nursing. Fever overnight. Blood cultures ordered and pending. CT scan abdomen with small abscesses, not amenable to drainage. Appreciate vascular surgery assistance. Objective Vital Signs Date Time Temp Pulse Resp B/P Pulse Ox O2 Delivery O2 Flow Rate FiO2 10/19/16 21:07 96 Nasal Cannula 6.00 10/19/16 19:00 94 Nasal Cannula 5.00 10/19/16 18:00 126 10/19/16 16:00 128 10/19/16 16:00 99.3 129 26 108/54 96 10/19/16 14:00 113 10/19/16 12:00 98.3 130 29 125/78 96 10/19/16 12:00 128 10/19/16 10:00 113 10/19/16 08:27 96 Nasal Cannula 6.00 10/19/16 08:00 98.5 105 19 95/50 94 10/19/16 08:00 98 Nasal Cannula 5.00 10/19/16 08:00 128 10/19/16 06:59 98.7 10/19/16 06:00 113 10/19/16 05:53 18 10/19/16 05:42 102.4 10/19/16 04:00 128 10/19/16 04:00 103.3 128 26 98/55 94 10/19/16 02:40 98.4 10/19/16 02:00 94 10/19/16 00:00 100.5 98 15 95/51 94 10/19/16 00:00 98 10/18/16 22:55 21 10/18/16 22:00 127 I/O 10/18/16 10/18/16 10/18/16 10/19/16 10/19/16 10/19/16 06:59 14:59 22:59 06:59 14:59 22:59 Intake Total 1174 ml 1291 ml 956 ml 1854 ml 1384 ml Output Total 800 ml 1630 ml 650 ml 1175 ml 1030 ml Balance 374 ml -339 ml 306 ml 679 ml 354 ml Intake Oral 240 ml 480 ml 240 ml 240 ml 350 ml IV Total 475 ml 314 ml 307 ml 847 ml 480 ml TPN/PPN 459 ml 497 ml 406 ml 521 ml 554 ml Lipid 3 ml 246 ml Output Urine Total 325 ml 750 ml 325 ml 375 ml 360 ml Stool Total 450 ml 855 ml 275 ml 775 ml 660 ml Drainage Total 25 ml 25 ml 50 ml 25 ml 10 ml Result Diagram: 10/19/16185110/19/161851 Objective Remarks GENERAL: lying in bed. appears comfortable. NAD. SKIN: Warm and dry. HEAD: Normocephalic. EYES: No scleral icterus. No injection or drainage. NECK: Supple, trachea midline. No JVD or lymphadenopathy. CARDIOVASCULAR: Regular rate and rhythm without murmurs, gallops, or rubs. RESPIRATORY: Breath sounds equal bilaterally. No accessory muscle use. GASTROINTESTINAL: fistula is draining minimal fecal matter, serosanguineous fluid into colostomy bags. No rebound or guarding. MUSCULOSKELETAL: No cyanosis, or edema. BACK: Nontender without obvious deformity. No CVA tenderness. A/P Assessment and Plan Ms. Wilson is a pleasant 71 year old female who was admitted to the hospital in Oct 2015 due to ischemic bowel and subsequently underwent resection of large , small bowel and cholecystectomy. 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 Patient was discharged to SNF but returned to the hospital due to post surgical complications. She underwent left foot amputation and subsequently had a lot of post surgical complications requiring wound vac. Her surgeon (Dr. Olvera) determined that patient was too high risk for further surgical intervention. Patient was on TPN and after discussing with Dr. Hill we switched patient to PO diet two days ago. Based on patient's desires, we spoke to Dr. Hill regarding a second surgical opinion. Dr. Hill was kind enough to consult Dr. Grajeda who evaluated patient on 10/07/2016. On 2015, patient was transferred to the main campus after she complained of severe abdominal pain and CT scan showed ischemic bowel. Due to septic shock, patient was started on Vancomycin and Cefepime prior to transfer. //Septic shock //Ischemic colitis //s/p Ex lap, resection of anterior abdominal wall fistula tract, resection of transverse colon to small bowel anastomosis, right sided ileostomy, left sided mucous fistula and partial removal of a ventral hernia mesh 10/08/16 -Cont Antibiotics as per Infectious disease - 10/19. Fever of 102 overnight. Repeat blood cultures pending. CT scan with small abscesses. Lactic acid only 2.6. Heart rate elevated, blood pressure stable. Continue maintenance fluids. Continue antibiotics as per infectious disease. Metoprolol as needed for tachycardia. Appreciate pressure surgery assistance //COPD //Acute hypoxemic respiratory failure - s/p extubation on 10/10/2016. - Continue bronchodilators, Incentive spirometry. //Acute kidney injury - resolved. Creatinine 2.70 ---> 0.78. - Kidney function stable. Continue monitor. //Acute blood loss anemia - s/p 4 units of PRBCs on 10/08/2016. - Hemoglobin continue stable. Monitor as necessary. Full code. Xarelto. Protonix IV. Discharge Planning continues with close monitoring in ICU. Jaden Marshall MD Oct 19, 2016 22:00
[2016-10-19] MEDS: cefTRIAXone INJ 2,000 MG in SODIUM CHLORIDE 0.9% INJ 100 ML IV SCH (23:47)
[2016-10-20] VITALS (14 sets, daily range): BP systolic 90–149; BP diastolic 50–66; PULSE 98–135; RESP 16–28; TEMP 98.7–101.3; O2SAT 28–97
[2016-10-20] MEDS: LORazepam 2 MG/ML VIAL IV PRN (00:20)
[2016-10-20] MEDS: ACETAMINOPHEN 325 MG TAB PO PRN ×2 (01:23→07:10)
[2016-10-20] MEDS: HYDROmorphone HCL PF 1 MG/ML VIAL IV PRN ×6 (02:53→23:57)
[2016-10-20] MEDS: INSULIN ASPART SUPPLEMENTAL SCALE SQ SCH (03:39)
[2016-10-20 05:02] LABS: AUTOMATED NEUTROPHIL # 6.6 TH/MM3 (1.8-7.7); BASOPHIL # 0.1 TH/MM3 (0-0.2); BASOPHIL % 0.9 % (0.0-2.0); EOSINOPHIL % 0.4 % (0.0-4.0); HEMATOCRIT 27.8 % (35.0-46.0); HEMO FLAGS DIFF FINAL; LYMPH % 8.9 % (9.0-44.0); LYMPHOCYTE # 0.7 TH/MM3 (1.0-4.8); MEAN CELL VOLUME 85.5 FL (80.0-100.0); MEAN CORPUSCULAR HEMOGLOBIN 28.2 PG (27.0-34.0); MONO % 2.3 % (0.0-8.0); NEUT % 87.5 % (16.0-70.0); PLATELET COUNT 459 TH/MM3 (150-450); RED BLOOD COUNT 3.26 MIL/MM3 (4.00-5.30); RED CELL DISTRIBUTION WIDTH 16.8 % (11.6-17.2); WHITE BLOOD COUNT 7.6 TH/MM3 (4.0-11.0)
[2016-10-20 05:19] LABS: BICARBONATE 26.4 MEQ/L (21.0-32.0); POTASSIUM 3.4 MEQ/L (3.5-5.1)
[2016-10-20] MEDS: OXYBUTYNIN CHLORIDE 5 MG TAB PO SCH ×3 (05:55→21:09)
[2016-10-20] MEDS: metroNIDAZOLE 500 MG INJ 100 ML IV SCH ×3 (05:56→22:00)
[2016-10-20] MEDS: ICU - POTASSIUM CHLORIDE/AQUEOUS SOLN 20 MEQ/100 ML IVPB IV PRN ×2 (07:43→11:02)
[2016-10-20] MEDS: CHLORHEXIDINE 0.12% (ORAL KIT) 15 ML CUP MT SCH ×2 (08:00→20:00)
[2016-10-20] MEDS: METOPROLOL TARTRATE 5 MG/5 ML VIAL IV PUSH PRN (08:51)
[2016-10-20] MEDS: ZINC SULFATE 220 MG CAP PO SCH (09:00)
[2016-10-20] MEDS: MULTIVITAMIN TAB PO SCH (09:27)
[2016-10-20] MEDS: DULoxetine HCl DR 30 MG CAP PO SCH (09:27)
[2016-10-20] MEDS ORDERED: POTASSIUM CHLOR 10 MEQ PREMIX 100 ML IV SCH (11:00)
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
[2016-10-20] MEDS ORDERED: ACETAMINOPHEN 1000 MG/100 ML VIAL IV ONE (16:30)
[2016-10-20] MEDS: METOPROLOL TARTRATE 5 MG/5 ML VIAL IV PUSH SCH ×2 (16:41→23:56)
[2016-10-20] MEDS ORDERED: MICAFUNGIN INJ 100 MG in SODIUM CHLORIDE 0.9% INJ 100 ML IV SCH (17:00)
[2016-10-20] MEDS: ONDANSETRON HCL 4 MG/2 ML VIAL IV PUSH PRN (17:12)
[2016-10-20] MEDS: MICAFUNGIN INJ 150 MG in SODIUM CHLORIDE 0.9% INJ 100 ML IV SCH (18:00)
--- NOTE | 2016-10-20 19:49 | HHI.IDPN ---
Subjective Subjective Remarks New issue: fungemia remains on TPN RN reports pt s having shaking chills, high fever co abdominal pain, minimal po still bleeding to mucos fistula CT A/P abnormal showing 2 small rim-enhancing fluid collections in the right mid abdomen adjacent to the distal ileum that extends into the ileostomy + co floaters Antibiotics Vancomycin CFTX flagyl micafungin - started Lines Port Past Medical History 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 Vital Signs Date Time Temp Pulse Resp B/P Pulse Ox O2 Delivery O2 Flow Rate FiO2 10/20/16 17:57 121 10/20/16 16:00 125 10/20/16 16:00 100.6 123 27 149/66 93 10/20/16 14:00 110 10/20/16 12:00 98.8 101 18 103/54 91 10/20/16 12:00 105 10/20/16 10:00 107 10/20/16 08:43 93 Nasal Cannula 6.00 10/20/16 08:00 101.3 135 26 122/65 88 10/20/16 08:00 135 10/20/16 07:00 Nasal Cannula 5.00 50 10/20/16 06:00 118 10/20/16 04:00 114 10/20/16 04:00 98.7 114 26 95/52 97 10/20/16 02:00 118 10/20/16 00:00 128 10/20/16 00:00 99.4 128 28 149/66 93 10/19/16 22:00 114 10/19/16 21:07 96 Nasal Cannula 6.00 10/19/16 20:00 98.4 118 28 82/53 94 10/19/16 20:00 118 10/19/16 10/19/16 10/20/16 15:00 23:00 07:00 Intake Total 1384 ml 1392 ml 1584 ml Output Total 1030 ml 1075 ml 1000 ml Balance 354 ml 317 ml 584 ml Intake Oral 350 ml 120 ml 360 ml IV Total 480 ml 896 ml 716 ml TPN/PPN 554 ml 376 ml 508 ml Output Urine Total 360 ml 375 ml 450 ml Stool Total 660 ml 700 ml 550 ml Drainage Total 10 ml . Laboratory Tests Test 10/18/16 10/19/16 10/19/16 10/20/16 22:30 03:45 18:52 03:44 White Blood Count 13.8 TH/MM3 14.0 TH/MM3 7.6 TH/MM3 7.6 TH/MM3 Red Blood Count 3.62 MIL/MM3 3.47 MIL/MM3 3.38 MIL/MM3 3.26 MIL/MM3 Hemoglobin 10.5 GM/DL 10.1 GM/DL 9.7 GM/DL 9.2 GM/DL Hematocrit 30.9 % 29.9 % 28.8 % 27.8 % Mean Corpuscular Volume 85.2 FL 86.1 FL 85.2 FL 85.5 FL Mean Corpuscular Hemoglobin 28.9 PG 29.1 PG 28.6 PG 28.2 PG Mean Corpuscular Hemoglobin 33.9 % 33.8 % 33.6 % 33.0 % Concent Red Cell Distribution Width 16.6 % 16.3 % 16.2 % 16.8 % Platelet Count 632 TH/MM3 575 TH/MM3 493 TH/MM3 459 TH/MM3 Mean Platelet Volume 9.1 FL 9.2 FL 8.9 FL 9.2 FL Neutrophils (%) (Auto) 90.1 % 91.6 % 91.4 % 87.5 % Lymphocytes (%) (Auto) 5.7 % 5.9 % 6.5 % 8.9 % Monocytes (%) (Auto) 2.7 % 1.3 % 1.5 % 2.3 % Eosinophils (%) (Auto) 1.2 % 0.4 % 0.2 % 0.4 % Basophils (%) (Auto) 0.3 % 0.8 % 0.4 % 0.9 % Neutrophils # (Auto) 12.4 TH/MM3 12.8 TH/MM3 6.9 TH/MM3 6.6 TH/MM3 Lymphocytes # (Auto) 0.8 TH/MM3 0.8 TH/MM3 0.5 TH/MM3 0.7 TH/MM3 Monocytes # (Auto) 0.4 TH/MM3 0.2 TH/MM3 0.1 TH/MM3 0.2 TH/MM3 Eosinophils # (Auto) 0.2 TH/MM3 0.1 TH/MM3 0.0 TH/MM3 0.0 TH/MM3 Basophils # (Auto) 0.0 TH/MM3 0.1 TH/MM3 0.0 TH/MM3 0.1 TH/MM3 CBC Comment DIFF FINAL DIFF FINAL DIFF FINAL DIFF FINAL Differential Comment Laboratory Tests Test 10/18/16 10/19/16 10/19/16 10/19/16 22:30 01:00 03:45 04:05 Sodium Level 133 MEQ/L 135 MEQ/L Potassium Level 3.9 MEQ/L 3.9 MEQ/L Chloride Level 96 MEQ/L 96 MEQ/L Carbon Dioxide Level 30.5 MEQ/L 28.6 MEQ/L Anion Gap 7 MEQ/L 10 MEQ/L Blood Urea Nitrogen 24 MG/DL 25 MG/DL Creatinine 0.96 MG/DL 1.03 MG/DL Estimat Glomerular Filtration 57 ML/MIN 53 ML/MIN Rate Random Glucose 204 MG/DL 209 MG/DL Lactic Acid Level 2.3 mmol/L 2.2 mmol/L 2.6 mmol/L Calcium Level 8.9 MG/DL 8.7 MG/DL Magnesium Level 1.8 MG/DL Total Bilirubin 0.7 MG/DL 0.9 MG/DL Aspartate Amino Transf 14 U/L 19 U/L (AST/SGOT) Alanine Aminotransferase 15 U/L 14 U/L (ALT/SGPT) Alkaline Phosphatase 168 U/L 148 U/L Total Protein 6.9 GM/DL 7.5 GM/DL Albumin 2.2 GM/DL 1.9 GM/DL Test 10/19/16 10/20/16 18:52 03:44 Sodium Level 132 MEQ/L 137 MEQ/L Potassium Level 3.8 MEQ/L 3.4 MEQ/L Chloride Level 96 MEQ/L 99 MEQ/L Carbon Dioxide Level 27.6 MEQ/L 26.4 MEQ/L Anion Gap 8 MEQ/L 12 MEQ/L Blood Urea Nitrogen 22 MG/DL 23 MG/DL Creatinine 0.92 MG/DL 0.92 MG/DL Estimat Glomerular Filtration 60 ML/MIN 60 ML/MIN Rate Random Glucose 206 MG/DL 225 MG/DL Calcium Level 8.3 MG/DL 8.8 MG/DL Total Bilirubin 0.8 MG/DL Aspartate Amino Transf 28 U/L (AST/SGOT) Alanine Aminotransferase 15 U/L (ALT/SGPT) Alkaline Phosphatase 132 U/L Total Protein 6.4 GM/DL Albumin 1.9 GM/DL Microbiology Date/Time Procedure Status Source Growth 10/18/16 22:30 Aerobic Blood Culture - Preliminary Resulted Blood Peripheral Yeast-Id To Follow 10/18/16 22:30 Anaerobic Blood Culture - Preliminary Resulted Blood Peripheral NO GROWTH IN 2 DAYS 10/18/16 22:35 Aerobic Blood Culture - Preliminary Resulted Blood Peripheral Yeast-Id To Follow 10/18/16 22:35 Anaerobic Blood Culture - Preliminary Resulted Blood Peripheral NO GROWTH IN 2 DAYS Imaging Last Impressions Abdomen/Pelvis CT 10/19/16 0000 Signed Impressions: Service Date/Time: September 15:10 - CONCLUSION: 1. There are 2 small rim-enhancing fluid collections in the right mid abdomen adjacent to the distal ileum that extends into the ileostomy. These measure 2.6 x 1.3 cm and 2.1 x 1.6 cm. These could represent infected fluid collections but are too small to place a drainage catheter. There is an additional small subcapsular fluid collection along the anterior left lobe of the liver. 2. Additionally, there is wall thickening of the distal ileal loops along with marked mesenteric edema. 3. There is a small volume of free fluid in the left upper quadrant around the spleen and in the pelvis. 4. There is a new small left pleural effusion with compressive atelectasis and right lower lobe volume loss versus airspace consolidation. Calixto Uriostegui MD Chest X-Ray 10/18/16 0000 Signed Impressions: Service Date/Time: Tuesday, October 18, 2016 22:13 - CONCLUSION: No acute disease. Rishi Dacosta MD Liver Ultrasound 07/12/16 0000 Signed Impressions: Service Date/Time: Tuesday, July 12, 2016 18:07 - CONCLUSION: 1. No acute abnormality demonstrated. 2. Heterogeneous liver without measurable mass. 3. Small and heterogeneous spleen without a measurable mass. 4. Cortical thinning and scarring of the right kidney. 5. Previous cholecystectomy. Calixto Woodruff MD Chest CT 07/09/16 0000 Signed Impressions: Service Date/Time: Saturday, July 09, 2016 14:43 - CONCLUSION: 1. Small right pleural effusion and minimal right basilar consolidation. 2. 6 mm left basilar nodule. Followup CT chest 6 months recommended. Florian Pepper MD Lower Extremity Ultrasound 06/25/16 0000 Signed Impressions: Service Date/Time: Saturday, June 25, 2016 15:56 - CONCLUSION: Negative exam with no evidence of deep venous thrombosis. Soft tissue edema. Mike Leija MD Port Line Insertion 06/20/16 0000 Signed Impressions: Service Date/Time: Monday, June 20, 2016 08:53 - CONCLUSION: Uncomplicated ultrasound and fluoroscopic guided implanted central venous port catheter placement as described in detail above. An 8 [employer] port was placed. Kevan Salgado Jr., MD Physical Exam CONSTITUTIONAL/GENERAL: fully awake and alert Conversant TUBES/LINES/DRAINS: PORT in place L chest , no skin changes New ly placed R IJ SKIN: No jaundice, rashes, or lesions. Skin temperature appropriate. Not diaphoretic. HEAD: Atraumatic. Normocephalic. EYES: Pupils equal and round and reactive. Extraocular motions intact. No scleral icterus. No injection or drainage. Fundi not examined. ENT: Oral mucosae without visible erythema, exudates, masses, or lesions. CARDIOVASCULAR: Regular rate and rhythm without murmurs, gallops, or rubs. No JVD. RESPIRATORY/CHEST: Symmetric, unlabored respirations. Clear to auscultation. Breath sounds equal bilaterally. No wheezes, rales, or rhonchi. GASTROINTESTINAL: Abdomen with VAC in place with serosang d/c; much less erythem present minimally distended mildly tender to palpation + BS Mucoid fistula in LLQ with dark old appearing blood present and ileostomy in RLQ with very liquid light brown stool GENITOURINARY: Without palpable bladder distension. Hamlin catheter in place with clear yellow urine MUSCULOSKELETAL: Extremities without clubbing, cyanosis, + 1 edema. NEUROLOGICAL: awake alert conversant Assessment & Plan Remarks IMPRESSION ischemic bowel, perforation sp emergent resection 10/08 Sepsis 2/2 ischemic bowel and perforation lorenzo S Kleb pneumo bacteremia staph epi bacteremia, ? clin significance Recent h/o Infection LBKA stump, C/S Klebsiella ESBL+ and Morganella Multiple Abx allergy - has tolerated Ertapenem and Cephalosporins in the past PVD Recent Staph hominis sepsis, has MV vegetation sp tx with vancomycvin FUngemia - new FLoaters - ro fungal endophthalmitis Intraabd abscesses, small RECOMMENDATION cont rocephin cont flagyl cont micafungin If no responding and/or resistance yeast will add ABM remove PORT opthalmology consult next week dw Roxana Gautam MD Oct 20, 2016 19:49
[2016-10-20] MEDS: CLINIMIX E 5/25 2000 mL- >42 mls/hr IV-CENTRAL SCH ×3 (20:25)
[2016-10-20] MEDS: NYSTATIN 100,000 U/GM PWD 15 GM BTL TOPICAL SCH (21:00)
[2016-10-20] MEDS: SODIUM CHLORIDE 0.9% FLUSH 5 ML FLUSH IVF SCH (21:07)
[2016-10-20] MEDS: CALCIUM/VITAMIN D 250 MG/125 U TAB PO SCH (21:08)
[2016-10-20] MEDS: MIRTAZAPINE ODT 15 MG TAB PO SCH (21:09)
--- NOTE | 2016-10-20 22:28 | HHI.PR ---
Subjective Remarks patient seen today around 4 PM. Patient says she feels generally unwell. Denies any chest pain. Denies any shortness of breath. Reports abdominal pain continues unchanged. Denies any nausea or vomiting. Objective Vital Signs Date Time Temp Pulse Resp B/P Pulse Ox O2 Delivery O2 Flow Rate FiO2 10/20/16 22:00 103 10/20/16 20:00 98.8 98 16 90/50 94 10/20/16 20:00 98 10/20/16 19:44 93 10/20/16 19:00 94 Nasal Cannula 5.00 50 10/20/16 17:57 121 10/20/16 16:00 125 10/20/16 16:00 100.6 123 27 149/66 93 10/20/16 14:00 110 10/20/16 12:00 98.8 101 18 103/54 91 10/20/16 12:00 105 10/20/16 10:00 107 10/20/16 08:43 93 Nasal Cannula 6.00 10/20/16 08:00 101.3 135 26 122/65 88 10/20/16 08:00 135 10/20/16 07:00 Nasal Cannula 5.00 50 10/20/16 06:00 118 10/20/16 04:00 114 10/20/16 04:00 98.7 114 26 95/52 97 10/20/16 02:00 118 10/20/16 00:00 128 10/20/16 00:00 99.4 128 28 149/66 93 I/O 10/19/16 10/19/16 10/19/16 10/20/16 10/20/16 10/20/16 06:59 14:59 22:59 06:59 14:59 22:59 Intake Total 1854 ml 1384 ml 1392 ml 1584 ml 1675 ml Output Total 1175 ml 1030 ml 1075 ml 1000 ml 700 ml Balance 679 ml 354 ml 317 ml 584 ml 975 ml Intake Oral 240 ml 350 ml 120 ml 360 ml 350 ml IV Total 847 ml 480 ml 896 ml 716 ml 845 ml TPN/PPN 521 ml 554 ml 376 ml 508 ml 480 ml Lipid 246 ml Output Urine Total 375 ml 360 ml 375 ml 450 ml 250 ml Stool Total 775 ml 660 ml 700 ml 550 ml 450 ml Drainage Total 25 ml 10 ml Result Diagram: 10/20/16 0344 10/20/16 0344 Objective Remarks GENERAL: lying in bed. appears comfortable. patient does appear to be febrile, slightly diaphoretic. Is on blood pressure 150s. Heart rate 120. SKIN: Warm and dry. HEAD: Normocephalic. EYES: No scleral icterus. No injection or drainage. NECK: Supple, trachea midline. No JVD. CARDIOVASCULAR: Regular rate and rhythm without murmurs, gallops, or rubs. RESPIRATORY: Breath sounds equal bilaterally. No accessory muscle use. GASTROINTESTINAL: fistula is draining minimal fecal matter, serosanguineous fluid into colostomy bags. No rebound or guarding. MUSCULOSKELETAL: No cyanosis, or edema. BACK: Nontender without obvious deformity. No CVA tenderness. A/P Assessment and Plan Ms. Wilson is a pleasant 71 year old female who was admitted to the hospital in Oct 2015 due to ischemic bowel and subsequently underwent resection of large , small bowel and cholecystectomy. 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 Patient was discharged to SNF but returned to the hospital due to post surgical complications. She underwent left foot amputation and subsequently had a lot of post surgical complications requiring wound vac. Her surgeon (Dr. Olvera) determined that patient was too high risk for further surgical intervention. Patient was on TPN and after discussing with Dr. Hill we switched patient to PO diet two days ago. Based on patient's desires, we spoke to Dr. Hill regarding a second surgical opinion. Dr. Hill was kind enough to consult Dr. Grajeda who evaluated patient on 10/07/2016. On 2015, patient was transferred to the [facility] after she complained of severe abdominal pain and CT scan showed ischemic bowel. Due to septic shock, patient was started on Vancomycin and Cefepime prior to transfer. //Septic shock //Ischemic colitis //s/p Ex lap, resection of anterior abdominal wall fistula tract, resection of transverse colon to small bowel anastomosis, right sided ileostomy, left sided mucous fistula and partial removal of a ventral hernia mesh 10/08/16 -Cont Antibiotics as per Infectious disease - 10/19. Fever of 102 overnight. Repeat blood cultures pending. CT scan with small abscesses. Lactic acid only 2.6. Heart rate elevated, blood pressure stable. Continue maintenance fluids. Continue antibiotics as per infectious disease. Metoprolol as needed for tachycardia. Appreciate pressure surgery assistance 10/20. Fungemia. Continued fevers. Micafungin started. Infectious disease following. Appreciate assistance. Port removal ordered by infectious disease. Followup cultures. //COPD //Acute hypoxemic respiratory failure - s/p extubation on 10/10/2016. - Continue bronchodilators, Incentive spirometry. //Acute kidney injury - resolved. Creatinine 2.70 ---> 0.78. - Kidney function stable. Continue monitor. //Acute blood loss anemia - s/p 4 units of PRBCs on 10/08/2016. - Hemoglobin continue stable. Monitor as necessary. Full code. Xarelto. Protonix IV. Discharge Planning continues with close monitoring in ICU. Jaden Marshall MD Oct 20, 2016 22:28
[2016-10-20] MEDS: cefTRIAXone INJ 2,000 MG in SODIUM CHLORIDE 0.9% INJ 100 ML IV SCH (23:56)
[2016-10-21] VITALS (15 sets, daily range): BP systolic 97–136; BP diastolic 52–63; PULSE 104–124; RESP 0–26; TEMP 97.7–99.2; O2SAT 87–100
[2016-10-21] MEDS: HYDROmorphone HCL PF 1 MG/ML VIAL IV PRN ×6 (03:32→22:45)
[2016-10-21] MEDS: INSULIN ASPART SUPPLEMENTAL SCALE SQ SCH ×4 (03:46→22:44)
[2016-10-21] MEDS: METOPROLOL TARTRATE 5 MG/5 ML VIAL IV PUSH SCH ×4 (04:26→23:00)
[2016-10-21] MEDS: OXYBUTYNIN CHLORIDE 5 MG TAB PO SCH ×3 (05:37→21:04)
[2016-10-21] MEDS: metroNIDAZOLE 500 MG INJ 100 ML IV SCH ×2 (05:37→13:35)
[2016-10-21 06:24] LABS: AUTOMATED NEUTROPHIL # 4.4 TH/MM3 (1.8-7.7); BASOPHIL # 0.2 TH/MM3 (0-0.2); BASOPHIL % 3.3 % (0.0-2.0); EOSINOPHIL # 0.1 TH/MM3 (0-0.4); HEMATOCRIT 26.7 % (35.0-46.0); HEMO FLAGS DIFF FINAL; LYMPH % 13.5 % (9.0-44.0); LYMPHOCYTE # 0.7 TH/MM3 (1.0-4.8); MEAN CELL VOLUME 85.4 FL (80.0-100.0); MEAN CORPUSCULAR HGB CONC 33.9 % (32.0-36.0); MONO % 2.4 % (0.0-8.0); NEUT % 79.8 % (16.0-70.0); PLATELET COUNT 380 TH/MM3 (150-450); RED BLOOD COUNT 3.12 MIL/MM3 (4.00-5.30); RED CELL DISTRIBUTION WIDTH 16.4 % (11.6-17.2); WHITE BLOOD COUNT 5.5 TH/MM3 (4.0-11.0)
[2016-10-21 07:00] LABS: POTASSIUM 3.7 MEQ/L (3.5-5.1)
[2016-10-21] MEDS: CHLORHEXIDINE 0.12% (ORAL KIT) 15 ML CUP MT SCH ×2 (08:00→20:00)
[2016-10-21] MEDS: FERROUS SULFATE 325 MG (65 MG ELEMENTAL IRON) TAB PO SCH ×2 (09:00→09:03)
[2016-10-21] MEDS: SODIUM CHLORIDE 0.9% FLUSH 5 ML FLUSH IVF SCH ×2 (09:00→21:00)
[2016-10-21] MEDS: ZINC SULFATE 220 MG CAP PO SCH (09:00)
[2016-10-21] MEDS: NYSTATIN 100,000 U/GM PWD 15 GM BTL TOPICAL SCH ×2 (09:00→21:03)
[2016-10-21] MEDS: CALCIUM/VITAMIN D 250 MG/125 U TAB PO SCH ×2 (09:02→21:03)
[2016-10-21] MEDS: DULoxetine HCl DR 30 MG CAP PO SCH (09:03)
[2016-10-21] MEDS: MULTIVITAMIN TAB PO SCH (09:03)
[2016-10-21] MEDS: CALCITRIOL 0.25 MCG CAP PO SCH (09:04)
[2016-10-21] MEDS: RIVAROXABAN 20 MG TAB PO SCH (09:12)
[2016-10-21] MEDS ORDERED: LIDOCAINE 1%/EPINEPHrine 1:100,000 SOLN 50 ML VIAL ONE (12:07)
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
[2016-10-21] MEDS: MICAFUNGIN INJ 150 MG in SODIUM CHLORIDE 0.9% INJ 100 ML IV SCH (16:57)
--- NOTE | 2016-10-21 17:36 | HHI.IDPN ---
Subjective Subjective Remarks Better, fever resolved remains on TPN co abdominal pain, minimal po no bleeding to mucos fistula CT A/P abnormal showing 2 small rim-enhancing fluid collections in the right mid abdomen adjacent to the distal ileum that extends into the ileostomy + co floaters Antibiotics Vancomycin CFTX flagyl micafungin - started Lines Port Past Medical History 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 Vital Signs Date Time Temp Pulse Resp B/P Pulse Ox O2 Delivery O2 Flow Rate FiO2 10/21/16 16:00 121 10/21/16 16:00 97.7 117 17 122/59 90 10/21/16 14:00 114 10/21/16 12:00 108 10/21/16 12:00 99.2 110 0 120/57 90 10/21/16 10:00 124 10/21/16 08:02 87 Nasal Cannula 5.00 10/21/16 08:00 109 10/21/16 08:00 99.0 105 26 103/55 100 10/21/16 07:44 100 Partial Rebreather 15.00 10/21/16 07:00 100 Partial Non-Rebreather 10/21/16 06:00 116 10/21/16 04:00 97.8 120 21 97/52 99 10/21/16 04:00 119 10/21/16 02:00 120 10/21/16 00:00 108 10/21/16 00:00 99.0 108 22 136/61 94 10/20/16 22:00 103 10/20/16 20:00 98.8 98 16 90/50 94 10/20/16 20:00 98 10/20/16 19:44 93 10/20/16 19:00 94 Nasal Cannula 5.00 50 10/20/16 17:57 121 10/20/16 10/20/16 10/21/16 15:00 23:00 07:00 Intake Total 1675 ml 1576 ml 1193 ml Output Total 700 ml 600 ml 625 ml Balance 975 ml 976 ml 568 ml Intake Oral 350 ml 240 ml 120 ml IV Total 845 ml 809 ml 583 ml TPN/PPN 480 ml 527 ml 490 ml Output Urine Total 250 ml 400 ml 275 ml Stool Total 450 ml 200 ml 350 ml . Laboratory Tests Test 10/19/16 10/20/16 10/21/16 18:52 03:44 04:50 White Blood Count 7.6 TH/MM3 7.6 TH/MM3 5.5 TH/MM3 Red Blood Count 3.38 MIL/MM3 3.26 MIL/MM3 3.12 MIL/MM3 Hemoglobin 9.7 GM/DL 9.2 GM/DL 9.1 GM/DL Hematocrit 28.8 % 27.8 % 26.7 % Mean Corpuscular Volume 85.2 FL 85.5 FL 85.4 FL Mean Corpuscular Hemoglobin 28.6 PG 28.2 PG 29.0 PG Mean Corpuscular Hemoglobin 33.6 % 33.0 % 33.9 % Concent Red Cell Distribution Width 16.2 % 16.8 % 16.4 % Platelet Count 493 TH/MM3 459 TH/MM3 380 TH/MM3 Mean Platelet Volume 8.9 FL 9.2 FL 9.5 FL Neutrophils (%) (Auto) 91.4 % 87.5 % 79.8 % Lymphocytes (%) (Auto) 6.5 % 8.9 % 13.5 % Monocytes (%) (Auto) 1.5 % 2.3 % 2.4 % Eosinophils (%) (Auto) 0.2 % 0.4 % 1.0 % Basophils (%) (Auto) 0.4 % 0.9 % 3.3 % Neutrophils # (Auto) 6.9 TH/MM3 6.6 TH/MM3 4.4 TH/MM3 Lymphocytes # (Auto) 0.5 TH/MM3 0.7 TH/MM3 0.7 TH/MM3 Monocytes # (Auto) 0.1 TH/MM3 0.2 TH/MM3 0.1 TH/MM3 Eosinophils # (Auto) 0.0 TH/MM3 0.0 TH/MM3 0.1 TH/MM3 Basophils # (Auto) 0.0 TH/MM3 0.1 TH/MM3 0.2 TH/MM3 CBC Comment DIFF FINAL DIFF FINAL DIFF FINAL Differential Comment Laboratory Tests Test 10/19/16 10/20/16 10/21/16 18:52 03:44 04:50 Sodium Level 132 MEQ/L 137 MEQ/L 138 MEQ/L Potassium Level 3.8 MEQ/L 3.4 MEQ/L 3.7 MEQ/L Chloride Level 96 MEQ/L 99 MEQ/L 104 MEQ/L Carbon Dioxide Level 27.6 MEQ/L 26.4 MEQ/L 24.0 MEQ/L Anion Gap 8 MEQ/L 12 MEQ/L 10 MEQ/L Blood Urea Nitrogen 22 MG/DL 23 MG/DL 23 MG/DL Creatinine 0.92 MG/DL 0.92 MG/DL 0.88 MG/DL Estimat Glomerular Filtration 60 ML/MIN 60 ML/MIN 64 ML/MIN Rate Random Glucose 206 MG/DL 225 MG/DL 201 MG/DL Calcium Level 8.3 MG/DL 8.8 MG/DL 8.1 MG/DL Total Bilirubin 0.8 MG/DL Aspartate Amino Transf 28 U/L (AST/SGOT) Alanine Aminotransferase 15 U/L (ALT/SGPT) Alkaline Phosphatase 132 U/L Total Protein 6.4 GM/DL Albumin 1.9 GM/DL Microbiology Date/Time Procedure Status Source Growth 10/18/16 22:30 Aerobic Blood Culture - Final Resulted Blood Peripheral Danni Parapsilosis 10/18/16 22:30 Anaerobic Blood Culture - Preliminary Resulted Blood Peripheral NO GROWTH IN 3 DAYS 10/18/16 22:35 Aerobic Blood Culture - Final Resulted Blood Peripheral Danni Parapsilosis 10/18/16 22:35 Anaerobic Blood Culture - Preliminary Resulted Blood Peripheral NO GROWTH IN 3 DAYS Imaging Last Impressions Abdomen/Pelvis CT 10/19/16 0000 Signed Impressions: Service Date/Time: September 15:10 - CONCLUSION: 1. There are 2 small rim-enhancing fluid collections in the right mid abdomen adjacent to the distal ileum that extends into the ileostomy. These measure 2.6 x 1.3 cm and 2.1 x 1.6 cm. These could represent infected fluid collections but are too small to place a drainage catheter. There is an additional small subcapsular fluid collection along the anterior left lobe of the liver. 2. Additionally, there is wall thickening of the distal ileal loops along with marked mesenteric edema. 3. There is a small volume of free fluid in the left upper quadrant around the spleen and in the pelvis. 4. There is a new small left pleural effusion with compressive atelectasis and right lower lobe volume loss versus airspace consolidation. Calixto Uriostegui MD Chest X-Ray 10/18/16 0000 Signed Impressions: Service Date/Time: Tuesday, October 18, 2016 22:13 - CONCLUSION: No acute disease. Rishi Dacosta MD Liver Ultrasound 07/12/16 0000 Signed Impressions: Service Date/Time: Tuesday, July 12, 2016 18:07 - CONCLUSION: 1. No acute abnormality demonstrated. 2. Heterogeneous liver without measurable mass. 3. Small and heterogeneous spleen without a measurable mass. 4. Cortical thinning and scarring of the right kidney. 5. Previous cholecystectomy. Calixto Woodruff MD Chest CT 07/09/16 0000 Signed Impressions: Service Date/Time: Saturday, July 09, 2016 14:43 - CONCLUSION: 1. Small right pleural effusion and minimal right basilar consolidation. 2. 6 mm left basilar nodule. Followup CT chest 6 months recommended. Florian Pepper MD Lower Extremity Ultrasound 06/25/16 0000 Signed Impressions: Service Date/Time: Saturday, June 25, 2016 15:56 - CONCLUSION: Negative exam with no evidence of deep venous thrombosis. Soft tissue edema. Mike Leija MD Port Line Insertion 06/20/16 0000 Signed Impressions: Service Date/Time: Monday, June 20, 2016 08:53 - CONCLUSION: Uncomplicated ultrasound and fluoroscopic guided implanted central venous port catheter placement as described in detail above. An 8 Pashto Power port was placed. Kevan Salgado Jr., MD Physical Exam CONSTITUTIONAL/GENERAL: fully awake and alert Conversant TUBES/LINES/DRAINS: PORT in place L chest , no skin changes SKIN: No jaundice, rashes, or lesions. Skin temperature appropriate. Not diaphoretic. HEAD: Atraumatic. Normocephalic. EYES: Pupils equal and round and reactive. Extraocular motions intact. No scleral icterus. No injection or drainage. Fundi not examined. ENT: Oral mucosae without visible erythema, exudates, masses, or lesions. CARDIOVASCULAR: Regular rate and rhythm without murmurs, gallops, or rubs. No JVD. RESPIRATORY/CHEST: Symmetric, unlabored respirations. Clear to auscultation. Breath sounds equal bilaterally. No wheezes, rales, or rhonchi. GASTROINTESTINAL: Abdomen with dressing in place minimally distended mildly tender to palpation + BS Mucoid fistula in LLQ with black dry clot, no bleeding GENITOURINARY: Without palpable bladder distension. Hamlin catheter in place with clear yellow urine MUSCULOSKELETAL: Extremities without clubbing, cyanosis, trace edema. NEUROLOGICAL: awake alert conversant Assessment & Plan Remarks IMPRESSION ischemic bowel, perforation sp emergent resection 10/08 Sepsis 2/2 ischemic bowel and perforation lorenzo S Kleb pneumo bacteremia staph epi bacteremia, ? clin significance Recent h/o Infection LBKA stump, C/S Klebsiella ESBL+ and Morganella Multiple Abx allergy - has tolerated Ertapenem and Cephalosporins in the past PVD Recent Staph hominis sepsis, has MV vegetation sp tx with vancomycvin FUngemia - new FLoaters - ro fungal endophthalmitis Intraabd abscesses, small : poly Hill: no clin significance RECOMMENDATION cont rocephin x 14 days total dc flagyl dc micafungin start fluconazole 400 repeat BC 2 D echo remove PORT opthalmology consult next week poly RN Roxana Cortes Dr, MD Oct 21, 2016 17:36
[2016-10-21] MEDS: FLUCONAZOLE 400 MG PREMIX BAG 200 ML IV SCH (18:21)
--- NOTE | 2016-10-21 18:24 | HHI.PR ---
Subjective Remarks patient seen today around 1 PM. She reports abdominal pain is controlled. Denies any nausea or vomiting. Denies any chest pain or shortness of breath Objective Vital Signs Date Time Temp Pulse Resp B/P Pulse Ox O2 Delivery O2 Flow Rate FiO2 10/21/16 16:00 121 10/21/16 16:00 97.7 117 17 122/59 90 10/21/16 14:00 114 10/21/16 12:00 108 10/21/16 12:00 99.2 110 0 120/57 90 10/21/16 10:00 124 10/21/16 08:02 87 Nasal Cannula 5.00 10/21/16 08:00 109 10/21/16 08:00 99.0 105 26 103/55 100 10/21/16 07:44 100 Partial Rebreather 15.00 10/21/16 07:00 100 Partial Non-Rebreather 10/21/16 06:00 116 10/21/16 04:00 97.8 120 21 97/52 99 10/21/16 04:00 119 10/21/16 02:00 120 10/21/16 00:00 108 10/21/16 00:00 99.0 108 22 136/61 94 10/20/16 22:00 103 10/20/16 20:00 98.8 98 16 90/50 94 10/20/16 20:00 98 10/20/16 19:44 93 10/20/16 19:00 94 Nasal Cannula 5.00 50 I/O 10/20/16 10/20/16 10/20/16 10/21/16 10/21/16 10/21/16 07:00 15:00 23:00 07:00 15:00 23:00 Intake Total 1584 ml 1675 ml 1576 ml 1193 ml 1903 ml Output Total 1000 ml 700 ml 600 ml 625 ml 1310 ml Balance 584 ml 975 ml 976 ml 568 ml 593 ml Intake Oral 360 ml 350 ml 240 ml 120 ml 800 ml IV Total 716 ml 845 ml 809 ml 583 ml 661 ml TPN/PPN 508 ml 480 ml 527 ml 490 ml 442 ml Output Urine Total 450 ml 250 ml 400 ml 275 ml 400 ml Stool Total 550 ml 450 ml 200 ml 350 ml 910 ml Result Diagram: 10/21/16 0450 10/21/16 0450 Objective Remarks GENERAL: lying in bed. appears comfortable. patient appears comfortable. heart rate in the 90s. SKIN: Warm and dry. HEAD: Normocephalic. EYES: No scleral icterus. No injection or drainage. NECK: Supple, trachea midline. No JVD. CARDIOVASCULAR: Regular rate and rhythm without murmurs, gallops, or rubs. RESPIRATORY: Breath sounds equal bilaterally. No accessory muscle use. GASTROINTESTINAL: fistula is draining minimal fecal matter, serosanguineous fluid into colostomy bags as before.. No rebound or guarding. MUSCULOSKELETAL: No cyanosis, or edema. BACK: Nontender without obvious deformity. No CVA tenderness. A/P Assessment and Plan 10/21 patient improved with antifungal treatment.Discussed with Dr. Arroyo. Plan removal of port. Ophthalmology evaluation this coming week for floaters in the setting of candidemia. Switch to fluconazole as per infectious disease Ms. Wilson is a pleasant 71 year old female who was admitted to the hospital in Oct 2015 due to ischemic bowel and subsequently underwent resection of large , small bowel and cholecystectomy. 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 Patient was discharged to SNF but returned to the hospital due to post surgical complications. She underwent left foot amputation and subsequently had a lot of post surgical complications requiring wound vac. Her surgeon (Dr. Olvera) determined that patient was too high risk for further surgical intervention. Patient was on TPN and after discussing with Dr. Hill we switched patient to PO diet two days ago. Based on patient's desires, we spoke to Dr. Hill regarding a second surgical opinion. Dr. Hill was kind enough to consult Dr. Grajeda who evaluated patient on 10/07/2016. On 2015, patient was transferred to the main campus after she complained of severe abdominal pain and CT scan showed ischemic bowel. Due to septic shock, patient was started on Vancomycin and Cefepime prior to transfer. //Septic shock //Ischemic colitis //s/p Ex lap, resection of anterior abdominal wall fistula tract, resection of transverse colon to small bowel anastomosis, right sided ileostomy, left sided mucous fistula and partial removal of a ventral hernia mesh 10/08/16 -Cont Antibiotics as per Infectious disease - 10/19. Fever of 102 overnight. Repeat blood cultures pending. CT scan with small abscesses. Lactic acid only 2.6. Heart rate elevated, blood pressure stable. Continue maintenance fluids. Continue antibiotics as per infectious disease. Metoprolol as needed for tachycardia. Appreciate pressure surgery assistance 10/20. Fungemia. Continued fevers. Micafungin started. Infectious disease following. Appreciate assistance. Port removal ordered by infectious disease. Followup cultures. 10/21. Improvement on antifungal. Switch to Diflucan.as per infectious disease. //COPD //Acute hypoxemic respiratory failure - s/p extubation on 10/10/2016. - Continue bronchodilators, Incentive spirometry. //Acute kidney injury - resolved. Creatinine 2.70 ---> 0.78. - Kidney function stable. Continue monitor. //Acute blood loss anemia - s/p 4 units of PRBCs on 10/08/2016. - Hemoglobin continue stable. Monitor as necessary. Full code. Xarelto. Protonix IV. Discharge Planning continues with close monitoring in ICU. Jaden Marshall MD Oct 21, 2016 18:24
[2016-10-21] MEDS: MIRTAZAPINE ODT 15 MG TAB PO SCH (21:03)
[2016-10-21] MEDS: CLINIMIX E 5/25 2000 mL- >42 mls/hr IV-CENTRAL SCH ×3 (21:24)
[2016-10-21] MEDS: cefTRIAXone INJ 2,000 MG in SODIUM CHLORIDE 0.9% INJ 100 ML IV SCH (23:00)
[2016-10-22] VITALS (15 sets, daily range): BP systolic 98–140; BP diastolic 52–63; PULSE 102–127; RESP 18–28; TEMP 97.4–100.8; O2SAT 9–100
[2016-10-22] MEDS: INSULIN ASPART SUPPLEMENTAL SCALE SQ SCH ×4 (03:15→21:00)
[2016-10-22] MEDS: RESP: ALBUTEROL 2.5 MG/IPRATROPIUM 0.5 MG NEB (PRN) NEB ×2 (03:24→17:36)
[2016-10-22] MEDS: HYDROmorphone HCL PF 1 MG/ML VIAL IV PRN ×5 (04:42→21:47)
[2016-10-22] MEDS: METOPROLOL TARTRATE 5 MG/5 ML VIAL IV PUSH SCH ×4 (04:43→22:42)
[2016-10-22 05:10] LABS: AUTOMATED NEUTROPHIL # 6.5 TH/MM3 (1.8-7.7); BASOPHIL # 0.1 TH/MM3 (0-0.2); BASOPHIL % 0.9 % (0.0-2.0); EOSINOPHIL # 0.1 TH/MM3 (0-0.4); EOSINOPHIL % 0.7 % (0.0-4.0); HEMATOCRIT 27.4 % (35.0-46.0); HEMO FLAGS DIFF FINAL; LYMPH % 18.2 % (9.0-44.0); LYMPHOCYTE # 1.6 TH/MM3 (1.0-4.8); MEAN CELL VOLUME 85.6 FL (80.0-100.0); MEAN CORPUSCULAR HEMOGLOBIN 28.4 PG (27.0-34.0); MEAN CORPUSCULAR HGB CONC 33.1 % (32.0-36.0); MONO % 4.9 % (0.0-8.0); NEUT % 75.3 % (16.0-70.0); PLATELET COUNT 355 TH/MM3 (150-450); RED CELL DISTRIBUTION WIDTH 16.9 % (11.6-17.2); WHITE BLOOD COUNT 8.6 TH/MM3 (4.0-11.0)
[2016-10-22 05:40] LABS: BICARBONATE 22.9 MEQ/L (21.0-32.0); POTASSIUM 3.6 MEQ/L (3.5-5.1)
[2016-10-22] MEDS: OXYBUTYNIN CHLORIDE 5 MG TAB PO SCH ×3 (06:00→22:42)
[2016-10-22] MEDS: CHLORHEXIDINE 0.12% (ORAL KIT) 15 ML CUP MT SCH ×2 (08:00→20:00)
[2016-10-22] MEDS: SODIUM CHLORIDE 0.9% FLUSH 5 ML FLUSH IVF SCH ×2 (08:47→20:52)
[2016-10-22] MEDS: DULoxetine HCl DR 30 MG CAP PO SCH (08:47)
[2016-10-22] MEDS: CALCIUM/VITAMIN D 250 MG/125 U TAB PO SCH ×2 (09:00→20:50)
[2016-10-22] MEDS: NYSTATIN 100,000 U/GM PWD 15 GM BTL TOPICAL SCH ×2 (09:00→20:50)
[2016-10-22] MEDS: FERROUS SULFATE 325 MG (65 MG ELEMENTAL IRON) TAB PO SCH (09:00)
[2016-10-22] MEDS: MULTIVITAMIN TAB PO SCH (09:00)
[2016-10-22] MEDS: ZINC SULFATE 220 MG CAP PO SCH (09:00)
[2016-10-22] MEDS: CALCITRIOL 0.25 MCG CAP PO SCH (09:00)
[2016-10-22] MEDS: ACETAMINOPHEN 325 MG TAB PO PRN (10:39)
[2016-10-22] MEDS: ONDANSETRON HCL 4 MG/2 ML VIAL IV PUSH PRN (10:49)
[2016-10-22] MEDS ORDERED: HEPARIN SODIUM - IV 10,000 UNITS/10 ML VIAL ONE (11:05)
[2016-10-22] MEDS ORDERED: LIDOCAINE 1%/EPINEPHrine 1:100,000 SOLN 20 ML VIAL ONE (11:06)
[2016-10-22] MEDS ORDERED: LIDOCAINE HCL 1% 50 ML VIAL ONE (11:08)
[2016-10-22] MEDS ORDERED: KETAMINE HCL 500 MG/5 ML VIAL ONE (11:39)
[2016-10-22] MEDS ORDERED: fentaNYL CITRATE 250 MCG/5 ML AMP ONE (11:40)
[2016-10-22] MEDS ORDERED: MIDAZOLAM HCL 2 MG/2 ML VIAL ONE (11:40)
[2016-10-22] MEDS ORDERED: PROPOFOL 200 MG/20 ML AMP IV ONE (12:00)
--- NOTE | 2016-10-22 13:50 | RADRPT ---
EXAM DATE/TIME: 10/22/2016 13:27 [facility] COMPARISON: CHEST SINGLE AP, October 18, 2016, 22:13. INDICATIONS : Central line placement. MEDICAL HISTORY : None. SURGICAL HISTORY : None. ENCOUNTER: Initial ACUITY: 1 day PAIN SCORE: 0/10 LOCATION: Bilateral chest FINDINGS: There is focal atelectasis and consolidation right lung base. Right subclavian line is noted and the tip overlies the SVC. There is no obvious pneumothorax. Clips overlie the right axilla. CONCLUSION: Right subclavian line as above. Rishi Dacosta MD on October 22, 2016 at 13:48 Board Certified Radiologist. This report was verified electronically.
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
[2016-10-22] MEDS: FLUCONAZOLE 400 MG PREMIX BAG 200 ML IV SCH (16:24)
[2016-10-22] MEDS: FAT EMULSION 20% INJ 250 ML (Twice weekly over 8 hours) IV-CENTRAL SCH (20:41)
[2016-10-22] MEDS: CLINIMIX E 5/25 2000 mL- >42 mls/hr IV-CENTRAL SCH ×3 (20:41)
[2016-10-22] MEDS: MIRTAZAPINE ODT 15 MG TAB PO SCH (20:50)
--- NOTE | 2016-10-22 22:14 | HHI.PR ---
Subjective Remarks Patient seen today around 4 PM. Status post removal of port. Patient reports that pain is under control. Denies any nausea or vomiting. Discussed with nursing. TPN running by central line. Objective Vital Signs Date Time Temp Pulse Resp B/P Pulse Ox O2 Delivery O2 Flow Rate FiO2 10/22/16 20:36 99 Partial Rebreather 15.00 10/22/16 19:00 98 Partial Non-Rebreather 10/22/16 18:00 115 10/22/16 16:00 127 10/22/16 16:00 98.0 127 25 125/60 9 10/22/16 14:00 116 10/22/16 10:00 110 10/22/16 08:01 100 Partial Rebreather 15.00 10/22/16 08:00 100 Partial Non-Rebreather 10/22/16 08:00 100.8 112 23 140/63 100 10/22/16 08:00 112 10/22/16 06:00 112 10/22/16 05:12 22 10/22/16 04:00 118 10/22/16 04:00 97.4 115 24 123/61 97 10/22/16 03:27 93 Partial Rebreather 12.00 10/22/16 03:24 85 Nasal Cannula 6.00 10/22/16 02:00 117 10/22/16 00:00 98.8 103 28 113/53 90 10/22/16 00:00 102 I/O 10/21/16 10/21/16 10/21/16 10/22/16 10/22/16 10/22/16 07:00 15:00 23:00 07:00 15:00 23:00 Intake Total 1193 ml 1903 ml 1535 ml 1125 ml 891 ml Output Total 625 ml 1310 ml 1000 ml 800 ml 650 ml Balance 568 ml 593 ml 535 ml 325 ml 241 ml Intake Oral 120 ml 800 ml 240 ml 0 ml 120 ml IV Total 583 ml 661 ml 475 ml 675 ml 280 ml TPN/PPN 490 ml 442 ml 820 ml 450 ml 491 ml Output Urine Total 275 ml 400 ml 350 ml 250 ml 250 ml Stool Total 350 ml 910 ml 650 ml 250 ml 400 ml Drainage Total 300 ml 0 ml Result Diagram: 10/22/168 10/22/168 Objective Remarks GENERAL: lying in bed. appears comfortable. patient is alert and oriented x3. SKIN: Warm and dry. HEAD: Normocephalic. EYES: No scleral icterus. No injection or drainage. NECK: Supple, trachea midline. No JVD. CARDIOVASCULAR: Regular rate and rhythm without murmurs, gallops, or rubs. RESPIRATORY: Breath sounds equal bilaterally. No accessory muscle use. GASTROINTESTINAL: fistula is draining minimal fecal matter, serosanguineous fluid into colostomy bags as before.. No rebound or guarding.wound VAC in midline incision as before. MUSCULOSKELETAL: No cyanosis, or edema. BACK: Nontender without obvious deformity. No CVA tenderness. A/P Assessment and Plan 10/22. Status post removal of left-sided Port-A-Cath.Central line in place. TPN running via central line. Vitals continue overall stable. Continue antifungal as per infectious disease. Ms. Wilson is a pleasant 71 year old female who was admitted to the hospital in Oct 2015 due to ischemic bowel and subsequently underwent resection of large , small bowel and cholecystectomy. 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 Patient was discharged to SNF but returned to the hospital due to post surgical complications. She underwent left foot amputation and subsequently had a lot of post surgical complications requiring wound vac. Her surgeon (Dr. Olvera) determined that patient was too high risk for further surgical intervention. Patient was on TPN and after discussing with Dr. Hill we switched patient to PO diet two days ago. Based on patient's desires, we spoke to Dr. Hill regarding a second surgical opinion. Dr. Hill was kind enough to consult Dr. Grajeda who evaluated patient on 10/07/2016. On 2015, patient was transferred to the main campus after she complained of severe abdominal pain and CT scan showed ischemic bowel. Due to septic shock, patient was started on Vancomycin and Cefepime prior to transfer. //Septic shock //Ischemic colitis //s/p Ex lap, resection of anterior abdominal wall fistula tract, resection of transverse colon to small bowel anastomosis, right sided ileostomy, left sided mucous fistula and partial removal of a ventral hernia mesh 10/08/16 -Cont Antibiotics as per Infectious disease - 10/19. Fever of 102 overnight. Repeat blood cultures pending. CT scan with small abscesses. Lactic acid only 2.6. Heart rate elevated, blood pressure stable. Continue maintenance fluids. Continue antibiotics as per infectious disease. Metoprolol as needed for tachycardia. Appreciate pressure surgery assistance 10/20. Fungemia. Continued fevers. Micafungin started. Infectious disease following. Appreciate assistance. Port removal ordered by infectious disease. Followup cultures. 10/21. Improvement on antifungal. Switch to Diflucan.as per infectious disease. 10/22. Port-A-Cath removed. Continue antifungals as per infectious disease. //COPD //Acute hypoxemic respiratory failure - s/p extubation on 10/10/2016. - Continue bronchodilators, Incentive spirometry. //Acute kidney injury - resolved. Creatinine 2.70 ---> 0.78. - Kidney function stable. Continue monitor. //Acute blood loss anemia - s/p 4 units of PRBCs on 10/08/2016. - Hemoglobin continue stable. Monitor as necessary. Full code. Xarelto. Protonix IV. Discharge Planning continues with close monitoring in ICU. Jaden Marshall MD Oct 22, 2016 22:14
[2016-10-22] MEDS: cefTRIAXone INJ 2,000 MG in SODIUM CHLORIDE 0.9% INJ 100 ML IV SCH (22:42)
[2016-10-23] VITALS (15 sets, daily range): BP systolic 101–147; BP diastolic 54–65; PULSE 87–116; RESP 15–22; TEMP 97.9–99.5; O2SAT 93–100
[2016-10-23] MEDS: INSULIN ASPART SUPPLEMENTAL SCALE SQ SCH (04:12)
[2016-10-23] MEDS: HYDROmorphone HCL PF 1 MG/ML VIAL IV PRN ×3 (04:13→12:15)
[2016-10-23 04:26] LABS: HEMATOCRIT 23.9 % (35.0-46.0); MEAN CELL VOLUME 85.5 FL (80.0-100.0); MEAN CORPUSCULAR HEMOGLOBIN 28.9 PG (27.0-34.0); MEAN CORPUSCULAR HGB CONC 33.8 % (32.0-36.0); PLATELET COUNT 214 TH/MM3 (150-450); RED BLOOD COUNT 2.79 MIL/MM3 (4.00-5.30); RED CELL DISTRIBUTION WIDTH 16.5 % (11.6-17.2); WHITE BLOOD COUNT 7.8 TH/MM3 (4.0-11.0)
[2016-10-23 04:30] LABS: HEMO FLAGS AUTO DIFF
[2016-10-23 04:53] LABS: BICARBONATE 27.8 MEQ/L (21.0-32.0); POTASSIUM 3.4 MEQ/L (3.5-5.1)
[2016-10-23 05:11] LABS: BANDS 28 % (0-6); BASOPHILS 1 % (0-2); EOSINOPHILS 3 % (0-4); NEUTROPHIL # MANUAL DIFF 5.1 TH/MM3 (1.8-7.7); PLATELET ESTIMATE SMEAR NORMAL (NORMAL); PLATELET MORPHOLOGY NORMAL (NORMAL); POLYS (SEG NEUTROPHILS) 37 % (16-70); SCAN/DIFF FINAL DIFF MANUAL; WBC DIFF SAMPLE 100
[2016-10-23] MEDS: METOPROLOL TARTRATE 5 MG/5 ML VIAL IV PUSH SCH ×4 (05:46→23:00)
[2016-10-23] MEDS: OXYBUTYNIN CHLORIDE 5 MG TAB PO SCH ×3 (05:46→21:16)
[2016-10-23] MEDS: ICU - POTASSIUM CHLORIDE/AQUEOUS SOLN 40 MEQ/100 ML IVPB IV PRN (08:08)
[2016-10-23] MEDS: MULTIVITAMIN TAB PO SCH (08:50)
[2016-10-23] MEDS: FERROUS SULFATE 325 MG (65 MG ELEMENTAL IRON) TAB PO SCH (08:50)
[2016-10-23] MEDS: DULoxetine HCl DR 30 MG CAP PO SCH (08:50)
[2016-10-23] MEDS: CALCIUM/VITAMIN D 250 MG/125 U TAB PO SCH ×2 (08:50→21:16)
[2016-10-23] MEDS: ZINC SULFATE 220 MG CAP PO SCH (08:50)
[2016-10-23] MEDS: MEDIUM DOSE INSULIN NOVOLOG SUPPLEMENTAL SCALE SQ SCH ×2 (11:00→21:15)
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
--- NOTE | 2016-10-23 14:10 | MP ---
cc: JANICE JOSE MD DATE OF SURGERY: 10/22/2016 PREOPERATIVE DIAGNOSIS Fungemia sepsis. POSTOPERATIVE DIAGNOSIS Fungemia sepsis. OPERATIVE PROCEDURE Removal of left subclavian Nxyeov-V-Wfqy and placement of a right triple-lumen subclavian catheter. SURGEON May ANESTHESIA 1% Xylocaine. ESTIMATED BLOOD LOSS Minimal. DETAILS OF PROCEDURE The patient was prepped and draped in the usual fashion. An incision was made over the most prominent portion of the port with a 15 blade deepened down to the level of the port. The port is then dissected from the fibrous capsule that it sits in and removed together with a Port-A-Cath. This one is sent for cultures. The area is irrigated with saline. All the debris is removed. The incision is then closed with 3-0 Vicryl and 4-0 subcuticular Monocryl. The second part of the procedure is done. The patient is prepped and draped. The area is infiltrated with 1% Xylocaine. The needle is inserted in the left subclavian vein. Through the needle a J-wire is guided. Over the J-wire the dilator and triple-lumen are placed. The triple-lumen is sutured in place with 2-0 silk. A chest x-ray is obtained. Janice MÉNDEZ/STEVO /3:02 PM /2:02 PM
--- NOTE | 2016-10-23 15:28 | ECHLIM ---
Study Study Date:10/23/2016 STUDY CONCLUSIONS SUMMARY - Procedure narrative: Transthoracic echocardiography. Image quality was poor. Scanning was performed from the parasternal, apical, and subcostal acoustic windows. - Left ventricle: The cavity size was mildly dilated. Wall thickness was increased in a pattern of mild LVH. Systolic function was at the lower limits of normal. The estimated ejection fraction was in the range of 50% to 55%. Wall motion was normal; there were no regional wall motion abnormalities. Doppler parameters are consistent with abnormal left ventricular relaxation (grade 1 diastolic dysfunction). - Aortic valve: Valve area: 2.34cm^2(VTI). Valve area: 2.28cm^2 (Vmax). - Mitral valve: Cannot exclude vegetation. Mild regurgitation. Recommendations: Transesophageal echocardiography could be considered to rule out vegetation, if clinically indicated. If LV function is below 40, please consider prescribing an ACEI or ARB or document rationale for non-use. PROCEDURE DATA STUDY STATUS: Elective. Procedure: Transthoracic echocardiography. Image quality was poor. Scanning was performed from the parasternal, apical, and subcostal acoustic windows. Study completion: The patient tolerated the procedure well. Transthoracic echocardiography. M-mode, complete 2D, complete spectral Doppler, and color Doppler. Height: Height: 60in. Weight: Weight: 140.7lb. Body mass index: BMI: 27.5kg/m^2. Body surface area: BSA: 1.61m^2. Patient status: Inpatient. CARDIAC ANATOMY LEFT VENTRICLE: The cavity size was mildly dilated. Wall thickness was increased in a pattern of mild LVH. Systolic function was at the lower limits of normal. The estimated ejection fraction was in the range of 50% to 55%. Wall motion was normal; there were no regional wall motion abnormalities. Doppler parameters are consistent with abnormal left ventricular relaxation (grade 1 diastolic dysfunction). AORTIC VALVE: Trileaflet; normal thickness leaflets. Doppler: Transvalvular velocity was within the normal range. There was no stenosis. No regurgitation. Valve area: 2.34cm^2(VTI). Indexed valve area: 1.45cm^2/m^2 (VTI). Valve area: 2.28cm^2 (Vmax). Indexed valve area: 1.42cm^2/m^2 (Vmax). Mean gradient: 5mm Hg (S). Peak gradient: 10mm Hg (S). AORTA: Aortic root: The aortic root was normal in size. MITRAL VALVE: Mildly thickened, mildly calcified leaflets, . Cannot exclude vegetation. Doppler: Transvalvular velocity was within the normal range. There was no evidence for stenosis. Mild regurgitation. Peak gradient: 2mm Hg (D). LEFT ATRIUM: The atrium was normal in size. RIGHT VENTRICLE: The cavity size was normal. Wall thickness was normal. PULMONIC VALVE: Doppler: Transvalvular velocity was within the normal range. There was no evidence for stenosis. No regurgitation. TRICUSPID VALVE: Structurally normal valve. Doppler: Transvalvular velocity was within the normal range. No regurgitation. PULMONARY ARTERY: The main pulmonary artery was normal-sized. Systolic pressure was within the normal range. RIGHT ATRIUM: The atrium was normal in size. PERICARDIUM: There was no pericardial effusion. SYSTEMIC VEINS: Inferior vena cava: The vessel was normal in size. Patient weight: 140.7lb _Ejection fraction:_ 65-75% _Fractional shortening:_ 32% up to 5Kg 5-11.5Kg 11.6-22.9Kg 23-45Kg 45-57Kg Aortic Root 7-13 <17 13-22 17-27 17-27 LA diam 6-13 <23 24-38 33-47 37-40 RVID 10-17 7-15 7-15 7-18 8-17 LVIDd 12-22 <32 24-38 33-47 37-40 LVPW 2-4 3-6 5-7 6-8 7-8 IVS 2-4 3-6 5-7 6-8 7-8 BASIC MEASUREMENTS ADULT NORMAL Left ventricle LV internal dimension, ED, chordal *53.3 mm 43-52 level, PLAX LV internal dimension, ES, chordal *41.1 mm 23-38 level, PLAX Fractional shortening, chordal level, *23 % >29 PLAX LV posterior wall thickness, ED 8.4 mm IVS/LVPW ratio, ED 1 <1.3 Ventricular septum Septal thickness, ED 8.4 mm Aortic valve Leaflet separation 21 mm 15-26 Aorta Root diameter, ED 29 mm Left atrium Anterior-posterior dimension 34 mm Anterior-posterior dimension index 2.11 cm/m^2 <2.2 Right ventricle RV internal dimension, ED, PLAX 30.1 mm 19-38 BASIC MEASUREMENTS ADULT NORMAL Aortic valve Leaflet separation 21 mm 15-26 DOPPLER MEASUREMENTS ADULT NORMAL Aortic valve Peak velocity, S 159 cm/s Mean velocity, S 106 cm/s VTI, S 23.5 cm Mean gradient, S 5 mm Hg Peak gradient, S 10 mm Hg Valve area, VTI 2.34 cm^2 Valve area index, VTI 1.45 cm^2/m^2 Valve area, Vmax 2.28 cm^2 Valve area index, Vmax 1.42 cm^2/m^2 Mitral valve Peak E-wave velocity 78 cm/s Peak A-wave velocity 111 cm/s Deceleration time *127 ms 150-230 Peak gradient, D 2 mm Hg Peak E/A ratio 0.7 Pulmonic valve Peak velocity, S 74.5 cm/s LEGEND: Mean values are shown as u=mean value. Asterisk (*) perez values outside specified normal range. Prepared and signed by Jarrett Eldridge [id number]
[2016-10-23] MEDS: FLUCONAZOLE 400 MG PREMIX BAG 200 ML IV SCH (16:54)
--- NOTE | 2016-10-23 16:56 | HHI.PR ---
Subjective Remarks Patient seen today around 2 PM. She says that pain is controlled. She denies any nausea or vomiting. Discussed with nursing. No fevers in the past 24 hours. Objective Vital Signs Date Time Temp Pulse Resp B/P Pulse Ox O2 Delivery O2 Flow Rate FiO2 10/23/16 14:00 95 10/23/16 12:00 100 10/23/16 12:00 98.0 98 15 103/54 95 10/23/16 10:03 93 Nasal Cannula 5.00 10/23/16 10:00 96 10/23/16 08:00 97 10/23/16 08:00 98.0 97 21 119/59 96 10/23/16 07:00 99 Partial Non-Rebreather 60 10/23/16 06:00 100 10/23/16 04:43 18 10/23/16 04:00 116 10/23/16 04:00 99.5 116 20 118/54 98 10/23/16 03:55 98 Partial Rebreather 14.00 10/23/16 02:00 108 10/23/16 00:00 99.1 105 22 147/65 100 10/23/16 00:00 105 10/22/16 22:00 112 10/22/16 20:36 99 Partial Rebreather 15.00 10/22/16 20:00 99.3 114 18 98/52 98 10/22/16 20:00 114 10/22/16 19:00 98 Partial Non-Rebreather 10/22/16 18:00 115 I/O 10/22/16 10/22/16 10/22/16 10/23/16 10/23/16 10/23/16 06:59 14:59 22:59 06:59 14:59 22:59 Intake Total 1125 ml 891 ml 1191 ml 865 ml 806 ml Output Total 800 ml 650 ml 1025 ml 725 ml 900 ml Balance 325 ml 241 ml 166 ml 140 ml -94 ml Intake Oral 0 ml 120 ml 240 ml 120 ml 250 ml IV Total 675 ml 280 ml 331 ml 117 ml 164 ml TPN/PPN 450 ml 491 ml 565 ml 441 ml 392 ml Lipid 55 ml 187 ml Output Urine Total 250 ml 250 ml 275 ml 375 ml 200 ml Stool Total 250 ml 400 ml 750 ml 350 ml 700 ml Drainage Total 300 ml 0 ml 0 ml Result Diagram: 10/23/1639910/23/16399 Objective Remarks GENERAL: lying in bed. appears comfortable. Sleeping, wakes up for exam. SKIN: Warm and dry. HEAD: Normocephalic. EYES: No scleral icterus. No injection or drainage. NECK: Supple, trachea midline. No JVD. CARDIOVASCULAR: Regular rate and rhythm without murmurs, gallops, or rubs. RESPIRATORY: Breath sounds equal bilaterally. No accessory muscle use. GASTROINTESTINAL: fistula is draining dark fluid on the right fistula, no fluid from the left abdomen fistula.. No rebound or guarding.wound VAC in midline incision, recently replaced. MUSCULOSKELETAL: No cyanosis, or edema. BACK: Nontender without obvious deformity. No CVA tenderness. A/P Assessment and Plan ===== 10/23/16 No fevers since port removal. Repeat blood Cultures from 10/22 still positive for yeast. Chest abscess cultures positive as well. Follow-up cultures. Echocardiogram cannot rule out vegetation. May need transesophageal echo, will defer to infectious disease.. Continue antifungals as per infectious disease. Acute anemia. Replacement ordered by surgical service Diabetes. Blood sugars elevated in the 200s. Apparently no insulin in TPN. Increased sliding scale per surgical service Hypokalemia replaced. Ms. Wilson is a pleasant 71 year old female who was admitted to the hospital in Oct 2015 due to ischemic bowel and subsequently underwent resection of large , small bowel and cholecystectomy. 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 Patient was discharged to SNF but returned to the hospital due to post surgical complications. She underwent left foot amputation and subsequently had a lot of post surgical complications requiring wound vac. Her surgeon (Dr. Olvera) determined that patient was too high risk for further surgical intervention. Patient was on TPN and after discussing with Dr. Hill we switched patient to PO diet two days ago. Based on patient's desires, we spoke to Dr. Hill regarding a second surgical opinion. Dr. Hill was kind enough to consult Dr. Grajeda who evaluated patient on 10/07/2016. On 2015, patient was transferred to the main campus after she complained of severe abdominal pain and CT scan showed ischemic bowel. Due to septic shock, patient was started on Vancomycin and Cefepime prior to transfer. //Septic shock //Ischemic colitis //s/p Ex lap, resection of anterior abdominal wall fistula tract, resection of transverse colon to small bowel anastomosis, right sided ileostomy, left sided mucous fistula and partial removal of a ventral hernia mesh 10/08/16 -Cont Antibiotics as per Infectious disease - 10/19. Fever of 102 overnight. Repeat blood cultures pending. CT scan with small abscesses. Lactic acid only 2.6. Heart rate elevated, blood pressure stable. Continue maintenance fluids. Continue antibiotics as per infectious disease. Metoprolol as needed for tachycardia. Appreciate pressure surgery assistance 10/20. Fungemia. Continued fevers. Micafungin started. Infectious disease following. Appreciate assistance. Port removal ordered by infectious disease. Followup cultures. 10/21. Improvement on antifungal. Switch to Diflucan.as per infectious disease. 10/22. Port-A-Cath removed. Continue antifungals as per infectious disease. 10/23-No fevers since port removal. Repeat blood Cultures from 10/22 still positive for yeast. Chest abscess cultures positive as well. Follow-up cultures. Echocardiogram cannot rule out vegetation. May need transesophageal echo, will defer to infectious disease.. Continue antifungals as per infectious disease. //COPD //Acute hypoxemic respiratory failure - s/p extubation on 10/10/2016. - Continue bronchodilators, Incentive spirometry. -On O2 5 L. Respiratory status stable. Monitor. //Acute kidney injury - resolved. Creatinine 2.70 ---> 0.78. - Kidney function stable. Continue monitor. //Acute blood loss anemia - s/p 4 units of PRBCs on 10/08/2016. - Hemoglobin continue stable. Monitor as necessary. 12-Acute anemia drop in hemoglobin 8.1.. Replacement ordered by surgical service. No signs of active bleeding. Monitor. //Diabetes mellitus. -On TPN. Continue sliding scale. Full code. Xarelto. Protonix IV. Discharge Planning continues with close monitoring in ICU. Jaden Marshall MD Oct 23, 2016 16:56
[2016-10-23] MEDS: CHLORHEXIDINE 0.12% (ORAL KIT) 15 ML CUP MT SCH (20:00)
[2016-10-23] MEDS: CLINIMIX E 5/25 2000 mL- >42 mls/hr IV-CENTRAL SCH ×3 (21:14)
[2016-10-23] MEDS: SODIUM CHLORIDE 0.9% FLUSH 5 ML FLUSH IVF SCH (21:15)
[2016-10-23] MEDS: NYSTATIN 100,000 U/GM PWD 15 GM BTL TOPICAL SCH (21:15)
[2016-10-23] MEDS: MIRTAZAPINE ODT 15 MG TAB PO SCH (21:16)
[2016-10-23] MEDS: ACETAMINOPHEN 325 MG TAB PO PRN (21:17)
[2016-10-23] MEDS: HYDROmorphone HCL PF 2 MG/ML VIAL IV PRN (21:17)
[2016-10-23] MEDS: cefTRIAXone INJ 2,000 MG in SODIUM CHLORIDE 0.9% INJ 100 ML IV SCH (23:21)
[2016-10-24] VITALS (12 sets, daily range): BP systolic 95–153; BP diastolic 50–72; PULSE 75–90; RESP 15–23; TEMP 97.8–98.5; O2SAT 93–97
[2016-10-24 03:34] LABS: HEMATOCRIT 31.7 % (35.0-46.0); MEAN CELL VOLUME 83.6 FL (80.0-100.0); MEAN CORPUSCULAR HEMOGLOBIN 28.2 PG (27.0-34.0); MEAN CORPUSCULAR HGB CONC 33.7 % (32.0-36.0); PLATELET COUNT 185 TH/MM3 (150-450); RED CELL DISTRIBUTION WIDTH 16.6 % (11.6-17.2); WHITE BLOOD COUNT 10.7 TH/MM3 (4.0-11.0)
[2016-10-24 03:36] LABS: HEMO FLAGS AUTO DIFF
[2016-10-24 04:06] LABS: BICARBONATE 29.7 MEQ/L (21.0-32.0); POTASSIUM 3.8 MEQ/L (3.5-5.1)
[2016-10-24] MEDS: METOPROLOL TARTRATE 5 MG/5 ML VIAL IV PUSH SCH ×2 (05:00→11:00)
[2016-10-24] MEDS: OXYBUTYNIN CHLORIDE 5 MG TAB PO SCH ×3 (06:15→20:42)
[2016-10-24] MEDS: MEDIUM DOSE INSULIN NOVOLOG SUPPLEMENTAL SCALE SQ SCH ×2 (06:33→11:00)
[2016-10-24 06:55] LABS: BANDS 5 % (0-6); EOSINOPHILS 3 % (0-4); NEUTROPHIL # MANUAL DIFF 7.6 TH/MM3 (1.8-7.7); PLATELET ESTIMATE SMEAR NORMAL (NORMAL); POLYS (SEG NEUTROPHILS) 66 % (16-70); SCAN/DIFF FINAL DIFF MANUAL; WBC DIFF SAMPLE 100
[2016-10-24 06:58] LABS: ACANTHOCYTES OCC (NORMAL); PLATELET MORPHOLOGY NORMAL (NORMAL)
[2016-10-24] MEDS: CHLORHEXIDINE 0.12% (ORAL KIT) 15 ML CUP MT SCH ×2 (08:00→20:00)
[2016-10-24] MEDS: NYSTATIN 100,000 U/GM PWD 15 GM BTL TOPICAL SCH ×2 (09:00→20:30)
[2016-10-24] MEDS: RIVAROXABAN 20 MG TAB PO SCH ×2 (09:00→09:56)
[2016-10-24] MEDS: SODIUM CHLORIDE 0.9% FLUSH 5 ML FLUSH IVF SCH ×2 (09:00→20:43)
[2016-10-24] MEDS: CALCITRIOL 0.25 MCG CAP PO SCH ×2 (09:00→09:57)
[2016-10-24] MEDS: ZINC SULFATE 220 MG CAP PO SCH (09:57)
[2016-10-24] MEDS: FERROUS SULFATE 325 MG (65 MG ELEMENTAL IRON) TAB PO SCH (09:57)
[2016-10-24] MEDS: CALCIUM/VITAMIN D 250 MG/125 U TAB PO SCH ×2 (09:57→20:42)
[2016-10-24] MEDS: DULoxetine HCl DR 30 MG CAP PO SCH (09:57)
[2016-10-24] MEDS: HYDROmorphone HCL PF 2 MG/ML VIAL IV PRN (10:40)
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
[2016-10-24] MEDS ORDERED: GLUCAGON 1 MG/ML VIAL OTHER PRN (16:15)
[2016-10-24] MEDS ORDERED: DEXTROSE 50% IN WATER 50 ML VIAL(D50) IV PUSH PRN (16:15)
[2016-10-24] MEDS: ONDANSETRON HCL 4 MG/2 ML VIAL IV PUSH PRN (16:35)
[2016-10-24] MEDS: FLUCONAZOLE 400 MG PREMIX BAG 200 ML IV SCH (17:06)
[2016-10-24] MEDS: HYDROmorphone HCL PF 1 MG/ML VIAL IV PRN ×2 (17:16→20:42)
--- NOTE | 2016-10-24 18:57 | HHI.PR ---
Subjective Remarks patient seen today around 1 PM. Says she feels better than yesterday. Abdominal pain unchanged. She is eating lunch. Objective Vital Signs Date Time Temp Pulse Resp B/P Pulse Ox O2 Delivery O2 Flow Rate FiO2 10/24/16 16:00 97.8 90 15 135/65 96 10/24/16 12:00 98.5 78 23 116/53 93 10/24/16 10:00 76 10/24/16 08:00 86 10/24/16 08:00 98.1 84 21 115/57 96 10/24/16 07:00 93 Nasal Cannula 5.00 10/24/16 06:00 78 10/24/16 04:00 98.0 80 16 117/69 97 10/24/16 04:00 80 10/24/16 02:00 77 10/24/16 00:00 97.9 75 16 95/50 95 10/24/16 00:00 75 10/23/16 22:00 101 10/23/16 20:00 97.9 88 20 131/63 93 10/23/16 20:00 88 10/23/16 19:49 95 Nasal Cannula 2.00 10/23/16 19:00 94 Nasal Cannula 2.00 I/O 10/23/16 10/23/16 10/23/16 10/24/16 10/24/16 10/24/16 07:00 15:00 23:00 07:00 15:00 23:00 Intake Total 865 ml 806 ml 1170 ml 1050 ml 1509 ml Output Total 725 ml 900 ml 925 ml 750 ml 950 ml Balance 140 ml -94 ml 245 ml 300 ml 559 ml Intake Oral 120 ml 250 ml 120 ml 120 ml 250 ml IV Total 117 ml 164 ml 350 ml 150 ml 180 ml TPN/PPN 441 ml 392 ml 400 ml 480 ml 1079 ml Lipid 187 ml Packed Cells 300 ml 300 ml Output Urine Total 375 ml 200 ml 275 ml 300 ml 350 ml Stool Total 350 ml 700 ml 650 ml 450 ml 600 ml Drainage Total 0 ml 0 ml Result Diagram: 10/24/1631410/24/16314 Objective Remarks GENERAL: lying in bed. appears comfortable. awake, eating lunch. Alert and oriented x3. SKIN: Warm and dry. HEAD: Normocephalic. EYES: No scleral icterus. No injection or drainage. NECK: Supple, trachea midline. No JVD. CARDIOVASCULAR: Regular rate and rhythm without murmurs, gallops, or rubs. RESPIRATORY: Breath sounds equal bilaterally. No accessory muscle use. GASTROINTESTINAL: right-sided also showed with green content. Left-sided normal fistula with no significant output. No rebound or guarding.wound VAC in midline incision, recently replaced. MUSCULOSKELETAL: No cyanosis, or edema. BACK: Nontender without obvious deformity. No CVA tenderness. A/P Assessment and Plan ===== 10/24/16 Still no fevers since port removal Elevated glucose. Slightly increased sliding scale. Continue antifungal as per infectious disease. Stable for transfer to floor as per surgical service. Ms. Wilson is a pleasant 71 year old female who was admitted to the hospital in Oct 2015 due to ischemic bowel and subsequently underwent resection of large , small bowel and cholecystectomy. 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 Patient was discharged to SNF but returned to the hospital due to post surgical complications. She underwent left foot amputation and subsequently had a lot of post surgical complications requiring wound vac. Her surgeon (Dr. Olvera) determined that patient was too high risk for further surgical intervention. Patient was on TPN and after discussing with Dr. Hill we switched patient to PO diet two days ago. Based on patient's desires, we spoke to Dr. Hill regarding a second surgical opinion. Dr. Hill was kind enough to consult Dr. Grajeda who evaluated patient on 10/07/2016. On 2015, patient was transferred to the main campus after she complained of severe abdominal pain and CT scan showed ischemic bowel. Due to septic shock, patient was started on Vancomycin and Cefepime prior to transfer. //Septic shock //Ischemic colitis //s/p Ex lap, resection of anterior abdominal wall fistula tract, resection of transverse colon to small bowel anastomosis, right sided ileostomy, left sided mucous fistula and partial removal of a ventral hernia mesh 10/08/16 -Cont Antibiotics as per Infectious disease - 10/19. Fever of 102 overnight. Repeat blood cultures pending. CT scan with small abscesses. Lactic acid only 2.6. Heart rate elevated, blood pressure stable. Continue maintenance fluids. Continue antibiotics as per infectious disease. Metoprolol as needed for tachycardia. Appreciate pressure surgery assistance 10/20. Fungemia. Continued fevers. Micafungin started. Infectious disease following. Appreciate assistance. Port removal ordered by infectious disease. Followup cultures. 10/21. Improvement on antifungal. Switch to Diflucan.as per infectious disease. 10/22. Port-A-Cath removed. Continue antifungals as per infectious disease. 10/23-No fevers since port removal. Repeat blood Cultures from 10/22 still positive for yeast. Chest abscess cultures positive as well. Follow-up cultures. Echocardiogram cannot rule out vegetation. May need transesophageal echo, will defer to infectious disease.. Continue antifungals as per infectious disease. //COPD //Acute hypoxemic respiratory failure - s/p extubation on 10/10/2016. - Continue bronchodilators, Incentive spirometry. -On O2 5 L. Respiratory status stable. Monitor. //Acute kidney injury - resolved. Creatinine 2.70 ---> 0.78. - Kidney function stable. Continue monitor. //Acute blood loss anemia - s/p 4 units of PRBCs on 10/08/2016. - Hemoglobin continue stable. Monitor as necessary. 10/23-Acute anemia drop in hemoglobin 8.1.. - transfused 2 units 11/20. Hemoglobin 10. Monitor //Diabetes mellitus. -On TPN. Continue sliding scale. Full code. Xarelto. Protonix IV. Discharge Planning stable for transfer to floor. Jaden Marshall MD Oct 24, 2016 18:57
[2016-10-24] MEDS: CLINIMIX E 5/25 2000 mL- >42 mls/hr IV-CENTRAL SCH ×3 (20:40)
[2016-10-24] MEDS: MIRTAZAPINE ODT 15 MG TAB PO SCH (20:42)
[2016-10-24] MEDS: INSULIN ASPART SUPPLEMENTAL SCALE SQ SCH (21:00)
[2016-10-24] MEDS: cefTRIAXone INJ 2,000 MG in SODIUM CHLORIDE 0.9% INJ 100 ML IV SCH ×2 (23:05→23:12)
[2016-10-25] VITALS (8 sets, daily range): BP systolic 120–167; BP diastolic 56–72; PULSE 89–113; RESP 16–22; TEMP 97.9–99.5; O2SAT 91–96
[2016-10-25] MEDS: HYDROmorphone HCL PF 1 MG/ML VIAL IV PRN ×5 (00:30→21:41)
[2016-10-25] MEDS: OXYBUTYNIN CHLORIDE 5 MG TAB PO SCH ×3 (06:33→21:40)
[2016-10-25] MEDS: INSULIN ASPART SUPPLEMENTAL SCALE SQ SCH ×4 (06:48→21:00)
[2016-10-25] MEDS: CALCITRIOL 0.25 MCG CAP PO SCH (08:41)
[2016-10-25] MEDS: RIVAROXABAN 20 MG TAB PO SCH (08:41)
[2016-10-25] MEDS: DULoxetine HCl DR 30 MG CAP PO SCH (08:41)
[2016-10-25] MEDS: FERROUS SULFATE 325 MG (65 MG ELEMENTAL IRON) TAB PO SCH (08:41)
[2016-10-25] MEDS: ZINC SULFATE 220 MG CAP PO SCH (08:41)
[2016-10-25] MEDS: CHLORHEXIDINE 0.12% (ORAL KIT) 15 ML CUP MT SCH ×2 (08:42→20:00)
[2016-10-25] MEDS: SODIUM CHLORIDE 0.9% FLUSH 5 ML FLUSH IVF SCH ×2 (08:42→21:00)
[2016-10-25] MEDS: CALCIUM/VITAMIN D 250 MG/125 U TAB PO SCH ×2 (08:42→21:40)
[2016-10-25] MEDS: NYSTATIN 100,000 U/GM PWD 15 GM BTL TOPICAL SCH ×2 (08:42→21:00)
--- NOTE | 2016-10-25 11:30 | HHI.HCPN ---
Reason for visit a. To assist with evaluation and management of symptoms including: Pain, anxiety, depression b. To assist medical decision maker(s) with: better understanding of current medical conditions; weighing benefits/burdens of medical treatment options; making medical treatment decisions. . (Xi Marinelli) Subjective/Interval History Patient has remained in ICU [status post emergency exploratory laparoscopy for ischemia/perforation-now with ileostomy, colostomy.] Transfer to regular medical floor pending. Surgical wounds healing reasonably well, wound VAC therapy continued. Ileostomy, colostomy functioning. Has been on TPN, also tolerating small amounts oral intake. Port has been removed, triple lumen central line has been placed.. Patient continues to have anemia, transfusions as needed--- received 2 units RBC on 10/23/15 for H&H 8.11/13.9. Tolerating nasal cannula O2 4-5L. Repeat blood cultures 10/21 again positive Danni, abscess ulcer also positive yeast. Repeat cultures obtained again today, pending. Patient seen in room no visitors present. She is awake, just receiving 0.5 mg hydromorphone iv prn pain in the abdomen, #8. She is mostly oriented nose the new year has just passed. Seems to have reasonable insight to hospitalization and course thus far. Update her on current diagnostics, labs, her recovery thus far. She indicates that she has been through a lot and that she is feeling okay all things considered. She shares she is supposed to transfer to regular floor though she has no idea when this will occur. Endorses reasonable pain relief from use of prn, still with significant abdominal pain. Denies dyspnea for the most part, but says she does feel mildly short of breath with activity she relates this to generalized weakness-- indicates that any level of physical activity tires/ winds her. Goals remain aggressive, though upon her asking about long-term trajectory, I did gently explore with her that at any point should additional complications/setbacks arise she or her surrogate have a right to hold treatments and requests no additional treatments and possible administration of comfort measures. She acknowledges risk for additional complications though seems frustrated by that. She understands that at any point she can elect to discontinue ongoing aggressive interventions, wishes to continue aggressive treatments for now. She has not seen her friend and healthcare surrogate Anuradha recently requests I provide her an update. . Family/friend interactions *Called to healthcare surrogate Anuradha per patient request, voicemail left. . (Xi Marinelli) Advance Directives Living Will: Completed, but not made available Health Care Surrogate: Copy in medical record Durable Power of Service Station Attendant: Never completed (Xi Marinelli) Advance Directive Specifics Health Care Surrogate(s): Primary HCS is her close friend Anuradha Christian, and secondary is her Dwight Wilson. The HCS that is in the record here is not dated. . (Xi Marinelli) Objective Vital Signs Date Time Temp Pulse Resp B/P Pulse Ox O2 Delivery O2 Flow Rate FiO2 10/25/16 10:14 92 Nasal Cannula 4.00 10/25/16 08:00 94 10/25/16 08:00 98.2 89 16 124/56 91 10/25/16 07:00 95 Nasal Cannula 5.00 10/25/16 04:00 89 10/25/16 04:00 97.9 89 17 132/66 91 10/25/16 00:00 93 10/25/16 00:00 98.0 93 16 150/69 93 10/24/16 20:00 97.9 83 16 153/72 95 10/24/16 20:00 82 10/24/16 19:58 96 Nasal Cannula 4.00 10/24/16 19:00 97 Nasal Cannula 5.00 10/24/16 19:00 97 Nasal Cannula 5.00 10/24/16 18:00 84 10/24/16 16:00 97.8 90 15 135/65 96 10/24/16 12:00 98.5 78 23 116/53 93 Intake & Output 10/25/16 10/25/16 06:59 18:59 Intake Total 1521 ml Output Total 1875 ml Balance -354 ml Intake Oral 400 ml IV Total 241 ml TPN/PPN 880 ml Output Urine Total 550 ml Stool Total 1225 ml Drainage Total 100 ml Physical Exam CONSTITUTIONAL/GENERAL: Alert, chronically ill appearing pleasant female. Upright in ICU bed. SKIN: Skin temperature appropriate. Not diaphoretic. Abdominal wounds noted-- midline incision with wound VAC dressing intact. Ileostomy, colostomy is noted patent. CARDIOVASCULAR: Regular rate and rhythm, no murmur. No JVD. RESPIRATORY/CHEST: Symmetric, unlabored respirations on 5 L nasal cannula. Clear upper, faint scattered rhonchi. GASTROINTESTINAL: Soft, tender, bowel sounds active. Ileostomy and colostomy noted-stoma pink, healthy, patent. MUSCULOSKELETAL: Extremities without clubbing, cyanosis, or edema. Left Stump now well healed. No mottling or clubbing. NEUROLOGICAL: Alert, oriented times 23. Appropriate. Seems to have reasonable insight regarding hospital course. Moves all 4 extremities generalized weakness, follows commands. PSYCHIATRIC: Not anxious or appearing depressed at this time. . (Xi Marinelli) Diagnostic Tests Laboratory Laboratory Tests Test 10/23/16 10/23/16 10/24/16 04:00 14:00 03:15 White Blood Count 7.8 TH/MM3 10.7 TH/MM3 (4.0-11.0) (4.0-11.0) Red Blood Count 2.79 MIL/MM3 3.80 MIL/MM3 (4.00-5.30) (4.00-5.30) Hemoglobin 8.1 GM/DL 10.7 GM/DL (11.6-15.3) (11.6-15.3) Hematocrit 23.9 % 31.7 % (35.0-46.0) (35.0-46.0) Mean Corpuscular Volume 85.5 FL 83.6 FL (80.0-100.0) (80.0-100.0) Mean Corpuscular Hemoglobin 28.9 PG 28.2 PG (27.0-34.0) (27.0-34.0) Mean Corpuscular Hemoglobin 33.8 % 33.7 % Concent (32.0-36.0) (32.0-36.0) Red Cell Distribution Width 16.5 % 16.6 % (11.6-17.2) (11.6-17.2) Platelet Count 214 TH/MM3 185 TH/MM3 (150-450) (150-450) Mean Platelet Volume 10.3 FL 10.6 FL (7.0-11.0) (7.0-11.0) Neutrophils (%) (Auto) % (16.0-70.0) % (16.0-70.0) Lymphocytes (%) (Auto) % (9.0-44.0) % (9.0-44.0) Monocytes (%) (Auto) % (0.0-8.0) % (0.0-8.0) Eosinophils (%) (Auto) % (0.0-4.0) % (0.0-4.0) Basophils (%) (Auto) % (0.0-2.0) % (0.0-2.0) Neutrophils # (Auto) TH/MM3 TH/MM3 (1.8-7.7) (1.8-7.7) Lymphocytes # (Auto) TH/MM3 TH/MM3 (1.0-4.8) (1.0-4.8) Monocytes # (Auto) TH/MM3 (0-0.9) TH/MM3 (0-0.9) Eosinophils # (Auto) TH/MM3 (0-0.4) TH/MM3 (0-0.4) Basophils # (Auto) TH/MM3 (0-0.2) TH/MM3 (0-0.2) CBC Comment AUTO DIFF AUTO DIFF Differential Total Cells 100 100 Counted Neutrophils % (Manual) 37 % (16-70) 66 % (16-70) Band Neutrophils % 28 % (0-6) 5 % (0-6) Lymphocytes % 20 % (9-44) 12 % (9-44) Monocytes % 11 % (0-8) 14 % (0-8) Eosinophils % 3 % (0-4) 3 % (0-4) Basophils % 1 % (0-2) Neutrophils # (Manual) 5.1 TH/MM3 7.6 TH/MM3 (1.8-7.7) (1.8-7.7) Differential Comment FINAL DIFF FINAL DIFF MANUAL MANUAL Platelet Estimate NORMAL NORMAL (NORMAL) (NORMAL) Platelet Morphology Comment NORMAL NORMAL (NORMAL) (NORMAL) Sodium Level 136 MEQ/L 141 MEQ/L (136-145) (136-145) Potassium Level 3.4 MEQ/L 3.8 MEQ/L (3.5-5.1) (3.5-5.1) Chloride Level 100 MEQ/L 104 MEQ/L (98-107) (98-107) Carbon Dioxide Level 27.8 MEQ/L 29.7 MEQ/L (21.0-32.0) (21.0-32.0) Anion Gap 8 MEQ/L (5-15) 7 MEQ/L (5-15) Blood Urea Nitrogen 17 MG/DL (7-18) 21 MG/DL (7-18) Creatinine 0.73 MG/DL 0.68 MG/DL (0.50-1.00) (0.50-1.00) Estimat Glomerular Filtration 79 ML/MIN (>89) 86 ML/MIN (>89) Rate Random Glucose 244 MG/DL 204 MG/DL (74-106) (74-106) Calcium Level 7.8 MG/DL 8.9 MG/DL (8.5-10.1) (8.5-10.1) Blood Type A POSITIVE Antibody Screen NEGATIVE Crossmatch Leukocyte-Reduced Red Blood Cells Blood Bank Comment Acanthocytes OCC (NORMAL) (Xi Marinelli) Result Diagram: 10/24/1631410/24/16314 Microbiology Microbiology Date/Time Procedure Status Source Growth 10/22/16 12:48 Gram Stain - Final Complete Abscess Chest 10/22/16 12:48 Wound Culture - Final Complete Danni Parapsilosis 10/22/16 12:48 Acid Fast Stain - Final Resulted Abscess Chest NO ACID FAST BACILLI SEEN 10/22/16 12:48 Mycobacterial Culture Resulted Abscess Chest Pending 10/22/16 12:48 Fungal Smear - Final Resulted Abscess Chest RARE BUDDING YEAST CELLS 10/22/16 12:48 Fungal Culture Resulted Abscess Chest Pending 10/24/16 04:13 Aerobic Blood Culture Received Blood Peripheral Pending 10/24/16 04:13 Anaerobic Blood Culture Received Blood Peripheral Pending 10/24/16 04:47 Aerobic Blood Culture Received Blood Peripheral Pending 10/24/16 04:47 Anaerobic Blood Culture Received Blood Peripheral Pending Imaging Last Impressions Chest X-Ray 10/22/16 0000 Signed Impressions: Service Date/Time: Saturday, October 22, 2016 13:27 - CONCLUSION: Right subclavian line as above. Rishi Dacosta MD Abdomen/Pelvis CT 10/19/16 0000 Signed Impressions: Service Date/Time: September 15:10 - CONCLUSION: 1. There are 2 small rim-enhancing fluid collections in the right mid abdomen adjacent to the distal ileum that extends into the ileostomy. These measure 2.6 x 1.3 cm and 2.1 x 1.6 cm. These could represent infected fluid collections but are too small to place a drainage catheter. There is an additional small subcapsular fluid collection along the anterior left lobe of the liver. 2. Additionally, there is wall thickening of the distal ileal loops along with marked mesenteric edema. 3. There is a small volume of free fluid in the left upper quadrant around the spleen and in the pelvis. 4. There is a new small left pleural effusion with compressive atelectasis and right lower lobe volume loss versus airspace consolidation. Calixto Uriostegui MD Liver Ultrasound 07/12/16 0000 Signed Impressions: Service Date/Time: Tuesday, July 12, 2016 18:07 - CONCLUSION: 1. No acute abnormality demonstrated. 2. Heterogeneous liver without measurable mass. 3. Small and heterogeneous spleen without a measurable mass. 4. Cortical thinning and scarring of the right kidney. 5. Previous cholecystectomy. Calixto Woodruff MD Chest CT 07/09/16 0000 Signed Impressions: Service Date/Time: Saturday, July 09, 2016 14:43 - CONCLUSION: 1. Small right pleural effusion and minimal right basilar consolidation. 2. 6 mm left basilar nodule. Followup CT chest 6 months recommended. Florian Pepper MD Lower Extremity Ultrasound 06/25/16 0000 Signed Impressions: Service Date/Time: Saturday, June 25, 2016 15:56 - CONCLUSION: Negative exam with no evidence of deep venous thrombosis. Soft tissue edema. Mike Leija MD Port Line Insertion 06/20/16 0000 Signed Impressions: Service Date/Time: Monday, June 20, 2016 08:53 - CONCLUSION: Uncomplicated ultrasound and fluoroscopic guided implanted central venous port catheter placement as described in detail above. An 8 [place] Power port was placed. Kevan Salgado Jr., MD Procedures Stump debridement and wound VAC placement 06/16/16 TPN Skin biopsies, face 07/24/16 Exploratory laparotomy, ileostomy, colostomy, bowel resection 10/08/16 . 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 No other specific skin pathology noted. . (8) pulmonary nodule on CT scan, 2.6 mm at the left base (9) depression (10) COPD, not oxygen dependent (11) history of breast cancer (12) anxiety (13) anemia Symptom Scale: (1) pain 0-10 Scale: 8 (she has been receiving Gerlach and parenteral hydromorphone) Comment: Pain has been mostly abdominal pain,+ r/t dressing changes . (2) anxiety 0-10 Scale: Unable to quantify Comment: Well controlled with scheduled Cymbalta, Remeron (3) depression 0-10 Scale: Unable to quantify Comment: Reasonably well controlled with Cymbalta, Remeron Pertinent Non-Medical Issues Psychosocial: Second marriage for about 1 year, but most of that time in the hospital or SNF. No children, but has close friend Anuradha. Spiritual: Evaluation pending Legal: The patient has capacity for decision-making, and has designated her friend Anuradha and her Dwight as primary and secondary HCS respectively Ethical issues impacting care: None. . Important Contacts Primary HCS, close friend Anuradha Christian [phone] : Dwight Wilson [phone] . Prognosis She has suffered multiple illnesses, infections, and complications during the last 10 months, and now has undergone emergency surgery for more ischemic bowel. Her overall prognosis remains somewhat poor, and she would be an appropriate hospice candidate if her proxy decision makers elected to transition to comfort care. . Code Status: Full Code Plan == FULL CODE == GOALS: The patient has continued to request AGGRESSIVE CARE. The patient remains at considerable risk for further complications/setbacks. Patient is aware of these risks and that at any point she has a right to elect for no further aggressive interventions and comfort measures. Called today to her healthcare surrogate per her request, voicemail left. == DECISION-MAKING: patient appears able to make her own decisions currently. HCS is her friend Anuradha Christian (primary )and her Dwight Wilson ( secondary) == SYMPTOMS: * Pain: s/p recent ex-lap surgery; still with some sharp, intermittent pain to mid abdomen--- 6-8-10, adequately relieved by prn hydromorphone use; requiring 2 3 doses a day most days. Requires additional higher dosing for dressing changes only. Will continue to evaluate. * Anxiety/depression: She is appears stable/improved cymbalta, remeron ( previosly on xanax this had been d/c). No obvious or reported anxiety, depression during interaction today. == Palliative Care will continue to follow the patient during this hospitalization intermittently to further assist with symptom management and to re-visit goals of medical treatment if there are significant changes in the course of her illness. . . (Xi Marinelli) Time Spent Total Floor Time (mins): 20 >50% Counseling/Coord of Care: Yes (discuss with primary nurse) (Xi Marinelli) Attestation To help prompt me to consider important information that might be impacting today's encounter and assessment, information from prior notes written by myself or my colleagues may have been "brought forward" into today's note. My signature on this note, however, is an attestation that I personally performed the exam, history, and/or decision-making noted today, and, unless otherwise indicated, the interactions with patient, family, and staff as well as the review of records all occurred today. I also attest that the listed assessment and stated plan reflect my best clinical judgment today based on the combination of historical information, prior notes, and today's exam/ interactions. When time spent is documented, it refers only to time spent today by the signer, or if indicated, combined time spent today by collaborating physician/nurse practitioner. (Xi Marinelli) Collaborating MD Comments Chart reviewed. Case discussed with palliative care LEAD SQL DEVELOPER. Above LOBO note reviewed and I concur. . (Rush Kaur MD) Xi Marinelli Oct 25, 2016 11:29 Rush Kaur MD Dec 09, 2016 13:56
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
[2016-10-25] MEDS: FLUCONAZOLE 400 MG PREMIX BAG 200 ML IV SCH (17:38)
[2016-10-25] MEDS: CLINIMIX E 5/25 2000 mL- >42 mls/hr IV-CENTRAL SCH ×3 (21:35)
[2016-10-25] MEDS: FAT EMULSION 20% INJ 250 ML (Twice weekly over 8 hours) IV-CENTRAL SCH (21:37)
[2016-10-25] MEDS: MIRTAZAPINE ODT 15 MG TAB PO SCH (21:41)
[2016-10-25] MEDS: cefTRIAXone INJ 2,000 MG in SODIUM CHLORIDE 0.9% INJ 100 ML IV SCH (23:00)
--- NOTE | 2016-10-25 23:21 | HHI.PR ---
Subjective Remarks pt seen around 2pm. no cp or sob. says pain controlled. minimal appetite. dw nursing. encourage enlive. Objective Vital Signs Date Time Temp Pulse Resp B/P Pulse Ox O2 Delivery O2 Flow Rate FiO2 10/25/16 19:07 93 Nasal Cannula 4.00 10/25/16 17:00 98.9 113 22 132/72 94 10/25/16 12:00 98.2 94 19 120/58 96 10/25/16 10:14 92 Nasal Cannula 4.00 10/25/16 08:00 94 10/25/16 08:00 98.2 89 16 124/56 91 10/25/16 07:00 95 Nasal Cannula 5.00 10/25/16 04:00 89 10/25/16 04:00 97.9 89 17 132/66 91 10/25/16 00:00 93 10/25/16 00:00 98.0 93 16 150/69 93 I/O 10/24/16 10/24/16 10/24/16 10/25/16 10/25/16 10/25/16 07:00 15:00 23:00 07:00 15:00 23:00 Intake Total 1050 ml 1509 ml 724 ml 797 ml 1157 ml Output Total 750 ml 950 ml 625 ml 1250 ml 1425 ml Balance 300 ml 559 ml 99 ml -453 ml -268 ml Intake Oral 120 ml 250 ml 300 ml 100 ml 650 ml IV Total 150 ml 180 ml 104 ml 137 ml 39 ml TPN/PPN 480 ml 1079 ml 320 ml 560 ml 468 ml Packed Cells 300 ml Output Urine Total 300 ml 350 ml 250 ml 300 ml 375 ml Stool Total 450 ml 600 ml 300 ml 925 ml 1000 ml Drainage Total 0 ml 75 ml 25 ml 50 ml Result Diagram: 10/24/1631410/24/16314 Objective Remarks GENERAL: lying in bed. appears comfortable. awake, drinking ice water. Alert and oriented x3. SKIN: Warm and dry. HEAD: Normocephalic. EYES: No scleral icterus. No injection or drainage. NECK: Supple, trachea midline. No JVD. CARDIOVASCULAR: Regular rate and rhythm without murmurs, gallops, or rubs. RESPIRATORY: Breath sounds equal bilaterally. No accessory muscle use. GASTROINTESTINAL: right-sided Fistula with green/brown liquid stool. Left- sided normal fistula with no significant output. No rebound or guarding.wound VAC in midline incision, recently replaced. MUSCULOSKELETAL: No cyanosis, or edema. BACK: Nontender without obvious deformity. No CVA tenderness. A/P Assessment and Plan ===== 10/25/16 -Still no fevers since port removal glucose better controlled on increase ss Continue antifungal as per infectious disease. Stable for transfer to floor as per surgical service - still no bed. Ms. Wilson is a pleasant 71 year old female who was admitted to the hospital in Oct 2015 due to ischemic bowel and subsequently underwent resection of large , small bowel and cholecystectomy. 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 Patient was discharged to SNF but returned to the hospital due to post surgical complications. She underwent left foot amputation and subsequently had a lot of post surgical complications requiring wound vac. Her surgeon (Dr. Olvera) determined that patient was too high risk for further surgical intervention. Patient was on TPN and after discussing with Dr. Hill we switched patient to PO diet two days ago. Based on patient's desires, we spoke to Dr. Hill regarding a second surgical opinion. Dr. Hill was kind enough to consult Dr. Grajeda who evaluated patient on 10/07/2016. On 2015, patient was transferred to the main campus after she complained of severe abdominal pain and CT scan showed ischemic bowel. Due to septic shock, patient was started on Vancomycin and Cefepime prior to transfer. //Septic shock //Ischemic colitis //s/p Ex lap, resection of anterior abdominal wall fistula tract, resection of transverse colon to small bowel anastomosis, right sided ileostomy, left sided mucous fistula and partial removal of a ventral hernia mesh 10/08/16 -Cont Antibiotics as per Infectious disease - 10/19. Fever of 102 overnight. Repeat blood cultures pending. CT scan with small abscesses. Lactic acid only 2.6. Heart rate elevated, blood pressure stable. Continue maintenance fluids. Continue antibiotics as per infectious disease. Metoprolol as needed for tachycardia. Appreciate pressure surgery assistance 10/20. Fungemia. Continued fevers. Micafungin started. Infectious disease following. Appreciate assistance. Port removal ordered by infectious disease. Followup cultures. 10/21. Improvement on antifungal. Switch to Diflucan.as per infectious disease. 10/22. Port-A-Cath removed. Continue antifungals as per infectious disease. 10/23-No fevers since port removal. Repeat blood Cultures from 10/22 still positive for yeast. Chest abscess cultures positive as well. Follow-up cultures. Echocardiogram cannot rule out vegetation. May need transesophageal echo, will defer to infectious disease.. Continue antifungals as per infectious disease. //COPD //Acute hypoxemic respiratory failure - s/p extubation on 10/10/2016. - Continue bronchodilators, Incentive spirometry. -On O2 5 L. Respiratory status stable. Monitor. //Acute kidney injury - resolved. Creatinine 2.70 ---> 0.78. - Kidney function stable. Continue monitor. //Acute blood loss anemia - s/p 4 units of PRBCs on 10/08/2016. - Hemoglobin continue stable. Monitor as necessary. 10/23-Acute anemia drop in hemoglobin 8.1.. - transfused 2 units 11/20. Hemoglobin 10. Monitor //Diabetes mellitus. -On TPN. Continue sliding scale. Full code. Xarelto. Protonix IV. Discharge Planning stable for transfer to floor. Jaden Marshall MD Oct 25, 2016 23:21
[2016-10-26] VITALS (7 sets, daily range): BP systolic 112–177; BP diastolic 56–77; PULSE 105–121; RESP 16–24; TEMP 98–99.2; O2SAT 87–94
[2016-10-26] MEDS ORDERED: METOPROLOL TARTRATE 5 MG/5 ML VIAL IV PUSH ONE (02:45)
[2016-10-26] MEDS: HYDROmorphone HCL PF 1 MG/ML VIAL IV PRN ×6 (03:05→23:46)
[2016-10-26] MEDS ORDERED: METOPROLOL TARTRATE 5 MG/5 ML VIAL IV PUSH SCH (04:25)
[2016-10-26] MEDS: OXYBUTYNIN CHLORIDE 5 MG TAB PO SCH ×3 (05:11→21:39)
[2016-10-26 05:32] LABS: AUTOMATED NEUTROPHIL # 11.6 TH/MM3 (1.8-7.7); BASOPHIL # 0.2 TH/MM3 (0-0.2); EOSINOPHIL # 0.2 TH/MM3 (0-0.4); EOSINOPHIL % 1.1 % (0.0-4.0); HEMATOCRIT 34.9 % (35.0-46.0); HEMO FLAGS DIFF FINAL; LYMPH % 17.5 % (9.0-44.0); LYMPHOCYTE # 2.8 TH/MM3 (1.0-4.8); MEAN CELL VOLUME 83.8 FL (80.0-100.0); MEAN CORPUSCULAR HEMOGLOBIN 29.5 PG (27.0-34.0); MEAN CORPUSCULAR HGB CONC 35.2 % (32.0-36.0); MONO % 7.2 % (0.0-8.0); NEUT % 73.2 % (16.0-70.0); PLATELET COUNT 418 TH/MM3 (150-450); RED BLOOD COUNT 4.16 MIL/MM3 (4.00-5.30); RED CELL DISTRIBUTION WIDTH 16.5 % (11.6-17.2); WHITE BLOOD COUNT 15.8 TH/MM3 (4.0-11.0)
[2016-10-26 05:54] LABS: BICARBONATE 30.7 MEQ/L (21.0-32.0); POTASSIUM 4.3 MEQ/L (3.5-5.1)
[2016-10-26] MEDS: INSULIN ASPART SUPPLEMENTAL SCALE SQ SCH ×4 (06:27→21:39)
[2016-10-26] MEDS: CHLORHEXIDINE 0.12% (ORAL KIT) 15 ML CUP MT SCH ×2 (07:37→20:00)
[2016-10-26] MEDS: CALCITRIOL 0.25 MCG CAP PO SCH (07:47)
[2016-10-26] MEDS: DULoxetine HCl DR 30 MG CAP PO SCH (07:47)
[2016-10-26] MEDS: FERROUS SULFATE 325 MG (65 MG ELEMENTAL IRON) TAB PO SCH (07:47)
[2016-10-26] MEDS: ZINC SULFATE 220 MG CAP PO SCH (07:47)
[2016-10-26] MEDS: RIVAROXABAN 20 MG TAB PO SCH (07:47)
[2016-10-26] MEDS: CALCIUM/VITAMIN D 250 MG/125 U TAB PO SCH ×2 (07:47→21:39)
[2016-10-26] MEDS: NYSTATIN 100,000 U/GM PWD 15 GM BTL TOPICAL SCH ×2 (07:48→21:00)
[2016-10-26] MEDS: SODIUM CHLORIDE 0.9% FLUSH 5 ML FLUSH IVF SCH ×2 (07:48→21:40)
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
[2016-10-26] MEDS: ONDANSETRON HCL 4 MG/2 ML VIAL IV PUSH PRN (10:25)
--- NOTE | 2016-10-26 13:32 | HHI.PR ---
Subjective Remarks Patient has no new complaints. She is comfortable. Pain is controlled. Still not eating much. Tolerating some ensure. Objective Vitals Vital Signs Date Time Temp Pulse Resp B/P Pulse Ox O2 Delivery O2 Flow Rate FiO2 10/26/16 12:00 109 10/26/16 12:00 98.5 109 24 138/65 87 10/26/16 08:00 105 10/26/16 08:00 98.4 105 22 117/56 91 10/26/16 07:00 91 Nasal Cannula 5.00 10/26/16 04:00 98.9 117 19 129/58 92 10/26/16 04:00 117 10/26/16 00:00 99.2 121 16 177/77 91 10/26/16 00:00 121 10/25/16 20:00 106 10/25/16 20:00 99.5 106 18 167/72 93 10/25/16 19:07 93 Nasal Cannula 4.00 10/25/16 19:00 93 Nasal Cannula 5.00 10/25/16 17:00 98.9 113 22 132/72 94 I/O 10/25/16 10/25/16 10/25/16 10/26/16 10/26/16 10/26/16 07:00 15:00 23:00 07:00 15:00 23:00 Intake Total 797 ml 1157 ml 1049 ml 1068 ml Output Total 1250 ml 1425 ml 1550 ml 1025 ml Balance -453 ml -268 ml -501 ml 43 ml Intake Oral 100 ml 650 ml 350 ml 175 ml IV Total 137 ml 39 ml 239 ml 138 ml TPN/PPN 560 ml 468 ml 460 ml 505 ml Lipid 250 ml Output Urine Total 300 ml 375 ml 500 ml 400 ml Stool Total 925 ml 1000 ml 1050 ml 625 ml Drainage Total 25 ml 50 ml 0 ml 0 ml Result Diagram: 10/26/1615 10/26/1615 Objective Remarks GENERAL: Chronically ill-appearing patient. CARDIOVASCULAR: Regular rate and rhythm without murmurs, gallops, or rubs. RESPIRATORY: Clear to auscultation. Breath sounds equal bilaterally. No wheezes , rales, or rhonchi. GASTROINTESTINAL: Abdomen soft, right-sided ostomy with green/brown liquid stool. Left-sided ostomy with no significant output. No rebound or guarding. 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 NEUROLOGICAL: Normal speech. Procedures Left stump debridement by Dr. Hill on 06/15/16 Bedside debridement of preperitoneal fat that was protruding from the abdominal fistula 09/01/16 central line placement Exploratory laparotomy, resection of the anterior abdominal wall fistula tract, resection of the transverse colon to small bowel anastomosis, lysis of adhesions of the small bowel with repair of two enterotomies, right-sided ileostomy, left-sided mucous fistula and partial removal of a ventral hernia mesh. Date of Insertion: Jun 20, 2016 Side: Left A/P Problem List: (1) Septic shock ICD Code: A41.9 Status: Acute (2) Acute hypoxemic respiratory failure ICD Code: J96.01 Status: Acute (3) Ischemic colitis ICD Code: K55.9 Status: Resolved (4) COPD (chronic obstructive pulmonary disease) ICD Code: J44.9 Status: Chronic (5) depression Status: Chronic (6) Peripheral neuropathy ICD Code: G62.9 Status: Chronic (7) Chronic diastolic (congestive) heart failure ICD Code: I50.32 Status: Chronic (8) ZIA (acute kidney injury) ICD Code: N17.9 Status: Resolved (9) emergent Ex Lap for ischemic bowel/perforation 10/08/16 Status: Acute (10) Acute blood loss anemia ICD Code: D62 Status: Acute Assessment and Plan 71 year old female who was admitted to the hospital in Oct 2015 due to ischemic bowel and subsequently underwent resection of large, small bowel and cholecystectomy. 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 Patient was discharged to SNF but returned to the hospital due to post surgical complications. She underwent left foot amputation and subsequently had a lot of post surgical complications requiring wound vac. Her surgeon (Dr. Olvera) determined that patient was too high risk for further surgical intervention. Patient was on TPN. SHe went into septic shock. Eventually she underwent exploratory laparotomy with resection of the segment of the large bowel containing the anastomosis to the small bowel and the fistula , end ileostomy and mucous fistula colostomy creation and removal of segments of ventral hernia mesh placed at some point many years in the past. Septic shock Ischemic colitis s/p Ex lap, resection of anterior abdominal wall fistula tract, resection of transverse colon to small bowel anastomosis, right sided ileostomy, left sided mucous fistula and partial removal of a ventral hernia mesh 10/08/16 -Cont Antibiotics as per Infectious disease Fungemia. Improvement on antifungal. Continue antifungals as per infectious disease. No fevers since port removal. Repeat blood Cultures from 10/22 still positive for yeast. Chest abscess cultures positive as well. Follow-up cultures. Echocardiogram cannot rule out vegetation. May need transesophageal echo, will defer to infectious disease.. Continue antifungals as per infectious disease. COPD Acute hypoxemic respiratory failure - s/p extubation on 10/10/2016. - Continue bronchodilators, Incentive spirometry. -On O2 5 L. Respiratory status stable. Monitor. Acute blood loss anemia - s/p 4 units of PRBCs on 10/08/2016. - Hemoglobin continue stable. Monitor as necessary. 10/23-Acute anemia drop in hemoglobin 8.1.. - transfused 2 units 11/20. Hemoglobin 10. Monitor Diabetes mellitus. -On TPN. Continue sliding scale. Full code. Xarelto. Protonix IV. Discharge Planning Stable for transfer to floor. Manolo Holm MD Oct 26, 2016 13:32 palliative care for support, pain control, -COPD: Breathing treatments as needed. Stable. -Severe protein-calorie malnutrition- Patient currently on TPN and being followed by dietitian. Ensure 1 can by mouth 3 times a day. -Skin care. She has excoriated skin over the buttock, abdomen and perineum. Continue anti-fungal cream. Has Hamlin. Discussed with RN to replace rectal tube if/when diarrhea start again. -GERD: Continue PPI Hypokalemia -improved. continue to monitor -Pulmonary nodule. Rpt CT in 6 mos. Patient previously counseled about this finding and the need to follow-up. GI prophylaxis: PPI. DVT PPx: Xarelto Discharge Planning DC pending clinical improvement. See case management note for detail. Multiple barriers to discharge to [facility] facility. Per vascular surgery , patient needs to remain on TPN. Manolo Holm MD Oct 26, 2016 13:32
[2016-10-26] MEDS: CARVEDILOL 3.125 MG TAB PO SCH ×2 (16:12→21:40)
[2016-10-26] MEDS: FLUCONAZOLE 400 MG PREMIX BAG 200 ML IV SCH (17:44)
[2016-10-26] MEDS: MIRTAZAPINE ODT 15 MG TAB PO SCH (21:00)
[2016-10-26] MEDS: CLINIMIX E 5/25 2000 mL- >42 mls/hr IV-CENTRAL SCH ×3 (21:40)
[2016-10-26] MEDS: cefTRIAXone INJ 2,000 MG in SODIUM CHLORIDE 0.9% INJ 100 ML IV SCH (23:19)
[2016-10-27] VITALS (7 sets, daily range): BP systolic 101–131; BP diastolic 57–77; PULSE 106–128; RESP 19–28; TEMP 98.1–100.9; O2SAT 90–94
[2016-10-27] MEDS: ONDANSETRON HCL 4 MG/2 ML VIAL IV PUSH PRN ×3 (00:23→21:25)
[2016-10-27] MEDS: HYDROmorphone HCL PF 1 MG/ML VIAL IV PRN ×6 (02:40→21:18)
[2016-10-27 04:09] LABS: HEMATOCRIT 34.4 % (35.0-46.0); MEAN CELL VOLUME 84.5 FL (80.0-100.0); MEAN CORPUSCULAR HEMOGLOBIN 28.2 PG (27.0-34.0); MEAN CORPUSCULAR HGB CONC 33.4 % (32.0-36.0); PLATELET COUNT 351 TH/MM3 (150-450); RED BLOOD COUNT 4.07 MIL/MM3 (4.00-5.30); RED CELL DISTRIBUTION WIDTH 15.9 % (11.6-17.2); REVIEW FLAG FINAL; WHITE BLOOD COUNT 14.8 TH/MM3 (4.0-11.0)
[2016-10-27 04:26] LABS: BICARBONATE 34.1 MEQ/L (21.0-32.0); POTASSIUM 3.7 MEQ/L (3.5-5.1)
[2016-10-27] MEDS: OXYBUTYNIN CHLORIDE 5 MG TAB PO SCH ×3 (05:41→21:16)
[2016-10-27] MEDS: INSULIN ASPART SUPPLEMENTAL SCALE SQ SCH ×4 (06:50→21:00)
[2016-10-27] MEDS: CALCITRIOL 0.25 MCG CAP PO SCH (09:01)
[2016-10-27] MEDS: CALCIUM/VITAMIN D 250 MG/125 U TAB PO SCH ×2 (09:01→21:16)
[2016-10-27] MEDS: RIVAROXABAN 20 MG TAB PO SCH (09:01)
[2016-10-27] MEDS: ZINC SULFATE 220 MG CAP PO SCH (09:02)
[2016-10-27] MEDS: DULoxetine HCl DR 30 MG CAP PO SCH (09:02)
[2016-10-27] MEDS: FERROUS SULFATE 325 MG (65 MG ELEMENTAL IRON) TAB PO SCH (09:02)
[2016-10-27] MEDS: SODIUM CHLORIDE 0.9% FLUSH 5 ML FLUSH IVF SCH ×2 (09:02→21:16)
[2016-10-27] MEDS: CHLORHEXIDINE 0.12% (ORAL KIT) 15 ML CUP MT SCH ×2 (09:03→20:00)
[2016-10-27] MEDS: CARVEDILOL 3.125 MG TAB PO SCH ×2 (09:05→21:16)
[2016-10-27] MEDS: NYSTATIN 100,000 U/GM PWD 15 GM BTL TOPICAL SCH ×2 (09:05→21:00)
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
--- NOTE | 2016-10-27 14:25 | HHI.IDPN ---
Subjective Subjective Remarks Pt has low grade fever poor po intake remains on TPN denies visual complaints (no blind spots, no floaters) still some small bleeding to mucos fistula PORT was removed on 10/22 and was grossly infected, clx was positive for C.parapsilosa SHe has not grew out nilson in the most recent BC Antibiotics Vancomycin CFTX flagyl micafungin - started Lines Port Past Medical History 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 Vital Signs Date Time Temp Pulse Resp B/P Pulse Ox O2 Delivery O2 Flow Rate FiO2 10/27/16 12:00 118 10/27/16 12:00 100.1 118 26 128/65 90 10/27/16 09:00 108 10/27/16 09:00 100.9 108 28 115/65 92 10/27/16 07:00 90 Venturi Mask 10/27/16 06:57 90 Venturi Mask 6.00 50 10/27/16 04:00 124 10/27/16 04:00 98.7 124 27 101/59 94 10/27/16 00:00 128 10/27/16 00:00 98.1 128 25 123/77 91 10/26/16 20:53 94 Nasal Cannula 6.00 10/26/16 19:00 108 10/26/16 19:00 92 Nasal Cannula 5.00 10/26/16 19:00 98.4 108 24 130/59 92 10/26/16 16:00 118 10/26/16 16:00 98.0 118 24 112/62 91 10/26/16 10/26/16 10/27/16 15:00 23:00 07:00 Intake Total 859 ml 954 ml 1060 ml Output Total 1225 ml 1200 ml 1050 ml Balance -366 ml -246 ml 10 ml Intake Oral 300 ml 360 ml 360 ml IV Total 44 ml 594 ml 700 ml TPN/PPN 515 ml Output Urine Total 325 ml 300 ml 300 ml Stool Total 900 ml 900 ml 750 ml Drainage Total 0 ml 0 ml . Laboratory Tests Test 10/26/16 10/27/16 05:15 03:40 White Blood Count 15.8 TH/MM3 14.8 TH/MM3 Red Blood Count 4.16 MIL/MM3 4.07 MIL/MM3 Hemoglobin 12.3 GM/DL 11.5 GM/DL Hematocrit 34.9 % 34.4 % Mean Corpuscular Volume 83.8 FL 84.5 FL Mean Corpuscular Hemoglobin 29.5 PG 28.2 PG Mean Corpuscular Hemoglobin 35.2 % 33.4 % Concent Red Cell Distribution Width 16.5 % 15.9 % Platelet Count 418 TH/MM3 351 TH/MM3 Mean Platelet Volume 9.9 FL 10.0 FL Neutrophils (%) (Auto) 73.2 % Lymphocytes (%) (Auto) 17.5 % Monocytes (%) (Auto) 7.2 % Eosinophils (%) (Auto) 1.1 % Basophils (%) (Auto) 1.0 % Neutrophils # (Auto) 11.6 TH/MM3 Lymphocytes # (Auto) 2.8 TH/MM3 Monocytes # (Auto) 1.1 TH/MM3 Eosinophils # (Auto) 0.2 TH/MM3 Basophils # (Auto) 0.2 TH/MM3 CBC Comment DIFF FINAL Differential Comment Laboratory Tests Test 10/26/16 10/27/16 05:15 03:40 Sodium Level 137 MEQ/L 134 MEQ/L Potassium Level 4.3 MEQ/L 3.7 MEQ/L Chloride Level 97 MEQ/L 93 MEQ/L Carbon Dioxide Level 30.7 MEQ/L 34.1 MEQ/L Anion Gap 9 MEQ/L 7 MEQ/L Blood Urea Nitrogen 18 MG/DL 24 MG/DL Creatinine 0.88 MG/DL 1.07 MG/DL Estimat Glomerular Filtration 64 ML/MIN 51 ML/MIN Rate Random Glucose 227 MG/DL 249 MG/DL Calcium Level 8.8 MG/DL 9.4 MG/DL Imaging Last Impressions Abdomen/Pelvis CT 10/19/16 0000 Signed Impressions: Service Date/Time: September 15:10 - CONCLUSION: 1. There are 2 small rim-enhancing fluid collections in the right mid abdomen adjacent to the distal ileum that extends into the ileostomy. These measure 2.6 x 1.3 cm and 2.1 x 1.6 cm. These could represent infected fluid collections but are too small to place a drainage catheter. There is an additional small subcapsular fluid collection along the anterior left lobe of the liver. 2. Additionally, there is wall thickening of the distal ileal loops along with marked mesenteric edema. 3. There is a small volume of free fluid in the left upper quadrant around the spleen and in the pelvis. 4. There is a new small left pleural effusion with compressive atelectasis and right lower lobe volume loss versus airspace consolidation. Calixto Uriostegui MD Chest X-Ray 10/18/16 0000 Signed Impressions: Service Date/Time: Tuesday, October 18, 2016 22:13 - CONCLUSION: No acute disease. Rishi Dacosta MD Liver Ultrasound 07/12/16 0000 Signed Impressions: Service Date/Time: Tuesday, July 12, 2016 18:07 - CONCLUSION: 1. No acute abnormality demonstrated. 2. Heterogeneous liver without measurable mass. 3. Small and heterogeneous spleen without a measurable mass. 4. Cortical thinning and scarring of the right kidney. 5. Previous cholecystectomy. Calixto Woodruff MD Chest CT 07/09/16 0000 Signed Impressions: Service Date/Time: Saturday, July 09, 2016 14:43 - CONCLUSION: 1. Small right pleural effusion and minimal right basilar consolidation. 2. 6 mm left basilar nodule. Followup CT chest 6 months recommended. Florian Pepper MD Lower Extremity Ultrasound 06/25/16 0000 Signed Impressions: Service Date/Time: Saturday, June 25, 2016 15:56 - CONCLUSION: Negative exam with no evidence of deep venous thrombosis. Soft tissue edema. Mike Leija MD Port Line Insertion 06/20/16 0000 Signed Impressions: Service Date/Time: Monday, June 20, 2016 08:53 - CONCLUSION: Uncomplicated ultrasound and fluoroscopic guided implanted central venous port catheter placement as described in detail above. An 8 [place] Power port was placed. Kevan Salgado Jr., MD Physical Exam CONSTITUTIONAL/GENERAL: fully awake and alert Conversant TUBES/LINES/DRAINS: PORT incision is dry and clean at previous PORT site, no skin changes SKIN: No jaundice, rashes, or lesions. Skin temperature appropriate. Not diaphoretic. HEAD: Atraumatic. Normocephalic. EYES: Pupils equal and round and reactive. Extraocular motions intact. No scleral icterus. No injection or drainage. Fundi not examined. ENT: Oral mucosae without visible erythema, exudates, masses, or lesions. CARDIOVASCULAR: Regular rate and rhythm without murmurs, gallops, or rubs. No JVD. RESPIRATORY/CHEST: Symmetric, unlabored respirations. Clear to auscultation. Breath sounds equal bilaterally. No wheezes, rales, or rhonchi. GASTROINTESTINAL: Abdomen with dressing in place minimally distended mildly tender to palpation + BS Mucoid fistula in LLQ with small amount of dark blood GENITOURINARY: Without palpable bladder distension. Hamlin catheter in place with clear yellow urine MUSCULOSKELETAL: Extremities without clubbing, cyanosis, trace edema. NEUROLOGICAL: awake alert conversant Assessment & Plan Remarks IMPRESSION Ischemic bowel, perforation sp emergent resection 10/08 Sepsis 2/2 ischemic bowel and perforation lorenzo S Kleb pneumo bacteremia staph epi bacteremia, ? clin significance Recent h/o Infection LBKA stump, C/S Klebsiella ESBL+ and Morganella Multiple Abx allergy - has tolerated Ertapenem and Cephalosporins in the past PVD Recent Staph hominis sepsis, has MV vegetation sp tx with vancomycvin FUngemia - C.parapsilosa; source: PORT (removed) - fungemia resolved after PORT removed - 2 D echo with ? vegetation, but that was present back in Jun 2016 FLoaters - ro fungal endophthalmitis Intraabd abscesses, small : poly Hill: no clin significance New fever RECOMMENDATION dc CFTX (completed 2 weeks of abx for Kleb sepsis) COnt high dose fluconazole x 4 wks from PORT removal and 1st neg ophthalmology consult rechk blood clx consider repeat CT A/P if cont to have unexplained fevers Roxana Champion Dr, RN, MD Oct 27, 2016 14:25
--- NOTE | 2016-10-27 15:32 | HHI.PR ---
Subjective Remarks Patient is having low grade fever. Still poor oral intake. She reports that she is not feeling well overall but has no specific complaint. Objective Vitals Vital Signs Date Time Temp Pulse Resp B/P Pulse Ox O2 Delivery O2 Flow Rate FiO2 10/27/16 12:00 118 10/27/16 12:00 100.1 118 26 128/65 90 10/27/16 09:00 108 10/27/16 09:00 100.9 108 28 115/65 92 10/27/16 07:00 90 Venturi Mask 10/27/16 06:57 90 Venturi Mask 6.00 50 10/27/16 04:00 124 10/27/16 04:00 98.7 124 27 101/59 94 10/27/16 00:00 128 10/27/16 00:00 98.1 128 25 123/77 91 10/26/16 20:53 94 Nasal Cannula 6.00 10/26/16 19:00 108 10/26/16 19:00 92 Nasal Cannula 5.00 10/26/16 19:00 98.4 108 24 130/59 92 10/26/16 16:00 118 10/26/16 16:00 98.0 118 24 112/62 91 I/O 10/26/16 10/26/16 10/26/16 10/27/16 10/27/16 10/27/16 07:00 15:00 23:00 07:00 15:00 23:00 Intake Total 1068 ml 859 ml 954 ml 1060 ml 885 ml Output Total 1025 ml 1225 ml 1200 ml 1050 ml 825 ml Balance 43 ml -366 ml -246 ml 10 ml 60 ml Intake Oral 175 ml 300 ml 360 ml 360 ml 250 ml IV Total 138 ml 44 ml 594 ml 700 ml 120 ml TPN/PPN 505 ml 515 ml 515 ml Lipid 250 ml Output Urine Total 400 ml 325 ml 300 ml 300 ml 350 ml Stool Total 625 ml 900 ml 900 ml 750 ml 450 ml Drainage Total 0 ml 0 ml 0 ml 25 ml Result Diagram: 10/27/16 0340 10/27/16 0340 Objective Remarks GENERAL: Chronically ill-appearing patient. CARDIOVASCULAR: Regular rate and rhythm without murmurs, gallops, or rubs. RESPIRATORY: Clear to auscultation. Breath sounds equal bilaterally. No wheezes , rales, or rhonchi. GASTROINTESTINAL: Abdomen soft, right-sided ostomy with green/brown liquid stool. Left-sided ostomy with no significant output. No rebound or guarding. 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 NEUROLOGICAL: Normal speech. Procedures Left stump debridement by Dr. Hill on 06/15/16 Bedside debridement of preperitoneal fat that was protruding from the abdominal fistula 09/01/16 central line placement Exploratory laparotomy, resection of the anterior abdominal wall fistula tract, resection of the transverse colon to small bowel anastomosis, lysis of adhesions of the small bowel with repair of two enterotomies, right-sided ileostomy, left-sided mucous fistula and partial removal of a ventral hernia mesh. Date of Insertion: Jun 20, 2016 Side: Left A/P Problem List: (1) Septic shock ICD Code: A41.9 Status: Acute (2) Acute hypoxemic respiratory failure ICD Code: J96.01 Status: Acute (3) Ischemic colitis ICD Code: K55.9 Status: Resolved (4) COPD (chronic obstructive pulmonary disease) ICD Code: J44.9 Status: Chronic (5) depression Status: Chronic (6) Peripheral neuropathy ICD Code: G62.9 Status: Chronic (7) Chronic diastolic (congestive) heart failure ICD Code: I50.32 Status: Chronic (8) ZIA (acute kidney injury) ICD Code: N17.9 Status: Resolved (9) emergent Ex Lap for ischemic bowel/perforation 10/08/16 Status: Acute (10) Acute blood loss anemia ICD Code: D62 Status: Acute Assessment and Plan 71 year old female who was admitted to the hospital in Oct 2015 due to ischemic bowel and subsequently underwent resection of large, small bowel and cholecystectomy. 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 Patient was discharged to SNF but returned to the hospital due to post surgical complications. She underwent left foot amputation and subsequently had a lot of post surgical complications requiring wound vac. Her surgeon (Dr. Olvera) determined that patient was too high risk for further surgical intervention. Patient was on TPN. SHe went into septic shock. Eventually she underwent exploratory laparotomy with resection of the segment of the large bowel containing the anastomosis to the small bowel and the fistula , end ileostomy and mucous fistula colostomy creation and removal of segments of ventral hernia mesh placed at some point many years in the past. Septic shock Ischemic colitis s/p Ex lap, resection of anterior abdominal wall fistula tract, resection of transverse colon to small bowel anastomosis, right sided ileostomy, left sided mucous fistula and partial removal of a ventral hernia mesh 10/08/16 -Antibiotics DC per Infectious disease Fungemia. Improvement on antifungal. Continue antifungals as per infectious disease. Continue high dose fluconazole x 4 wks from PORT removal and 1st neg BC Chest abscess cultures positive for nilson. Follow-up cultures. Echocardiogram cannot rule out vegetation. May need transesophageal echo, will defer to infectious disease. Continue antifungals as per infectious disease. Recurrent fever. Agree with ID, consider repating A/P CT if fever persist as she previously had a known fluid collection on CT. Ophthalmology consulted per ID. Repeat blood cultures. COPD Acute hypoxemic respiratory failure - s/p extubation on 10/10/2016. - Continue bronchodilators, Incentive spirometry. -On O2 5 L. Respiratory status fluctuates. Monitor closely. Acute blood loss anemia - s/p 4 units of PRBCs on 10/08/2016. - Hemoglobin continue stable. Monitor as necessary. 1/2-Acute anemia drop in hemoglobin 8.1.. - transfused 2 units 11/20. Hemoglobin 10. Monitor Diabetes mellitus. -On TPN. Continue sliding scale. Full code. Xarelto. Protonix IV. Discharge Planning Keep in ICU. At risk for sudden decompensation. Manolo Holm MD Oct 27, 2016 15:32
[2016-10-27] MEDS: FLUCONAZOLE 400 MG PREMIX BAG 200 ML IV SCH (16:05)
[2016-10-27] MEDS: CLINIMIX E 5/25 2000 mL- >42 mls/hr IV-CENTRAL SCH ×3 (20:00)
[2016-10-27] MEDS: MIRTAZAPINE ODT 15 MG TAB PO SCH (21:00)
[2016-10-28] VITALS (12 sets, daily range): BP systolic 91–133; BP diastolic 52–88; PULSE 86–125; RESP 18–28; TEMP 98.5–102.7; O2SAT 89–95
[2016-10-28] MEDS: ACETAMINOPHEN 325 MG TAB PO PRN (00:15)
[2016-10-28] MEDS: HYDROmorphone HCL PF 1 MG/ML VIAL IV PRN ×2 (01:40→21:57)
[2016-10-28] MEDS: CLINIMIX E 5/25 2000 mL- >42 mls/hr IV-CENTRAL SCH ×3 (03:28)
[2016-10-28 05:16] LABS: HEMATOCRIT 32.9 % (35.0-46.0); MEAN CORPUSCULAR HEMOGLOBIN 28.1 PG (27.0-34.0); MEAN CORPUSCULAR HGB CONC 33.1 % (32.0-36.0); PLATELET COUNT 318 TH/MM3 (150-450); RED BLOOD COUNT 3.87 MIL/MM3 (4.00-5.30); RED CELL DISTRIBUTION WIDTH 16.1 % (11.6-17.2); REVIEW FLAG FINAL; WHITE BLOOD COUNT 14.1 TH/MM3 (4.0-11.0)
[2016-10-28 05:58] LABS: BICARBONATE 34.6 MEQ/L (21.0-32.0); POTASSIUM 3.6 MEQ/L (3.5-5.1)
[2016-10-28] MEDS: INSULIN ASPART SUPPLEMENTAL SCALE SQ SCH ×4 (06:09→21:34)
[2016-10-28] MEDS: OXYBUTYNIN CHLORIDE 5 MG TAB PO SCH ×3 (06:09→21:05)
[2016-10-28] MEDS: CHLORHEXIDINE 0.12% (ORAL KIT) 15 ML CUP MT SCH (08:00)
--- NOTE | 2016-10-28 08:37 | RADRPT ---
EXAM DATE/TIME: 10/28/2016 08:07 [facility] COMPARISON: CHEST SINGLE AP, October 22, 2016, 13:27. INDICATIONS : Fever. MEDICAL HISTORY : None. SURGICAL HISTORY : None. ENCOUNTER: Initial ACUITY: 1 day PAIN SCORE: Non-responsive. LOCATION: Bilateral chest FINDINGS: Central venous catheter is in good position. Surgical clips are seen on the right chest wall. There are new minimal parenchymal changes present in the right base. Left lung is clear. Heart and pulmo nary vascularity are normal. CONCLUSION: Interval development of minimal parenchymal changes right base, new from the comparison study. Schuyler Gamboa MD FACR on October 28, 2016 at 8:28 Board Certified Radiologist. This report was verified electronically.
[2016-10-28] MEDS: ZINC SULFATE 220 MG CAP PO SCH (09:00)
[2016-10-28] MEDS: NYSTATIN 100,000 U/GM PWD 15 GM BTL TOPICAL SCH ×2 (09:00→21:00)
[2016-10-28] MEDS: HYDROmorphone HCL PF 2 MG/ML VIAL IV PRN ×2 (09:23→13:22)
[2016-10-28] MEDS: CALCITRIOL 0.25 MCG CAP PO SCH (10:12)
[2016-10-28] MEDS: FERROUS SULFATE 325 MG (65 MG ELEMENTAL IRON) TAB PO SCH (10:13)
[2016-10-28] MEDS: CARVEDILOL 3.125 MG TAB PO SCH ×2 (10:13→21:05)
[2016-10-28] MEDS: CALCIUM/VITAMIN D 250 MG/125 U TAB PO SCH ×2 (10:13→21:05)
[2016-10-28] MEDS: RIVAROXABAN 15 MG TAB PO SCH (10:13)
[2016-10-28] MEDS: SODIUM CHLORIDE 0.9% FLUSH 5 ML FLUSH IVF SCH ×2 (10:14→21:08)
[2016-10-28] MEDS: DULoxetine HCl DR 30 MG CAP PO SCH (10:16)
--- NOTE | 2016-10-28 12:19 | HHI.PR ---
Subjective Remarks Patient has no new complaints. Still requiring a Ventimask. Discussed with RN. Wound VAC dressing change to, concern for fistula tract with possible stool. Surgery will be made aware when they round. Objective Vitals Vital Signs Date Time Temp Pulse Resp B/P Pulse Ox O2 Delivery O2 Flow Rate FiO2 10/28/16 08:24 89 Venturi Mask 50 10/28/16 07:15 90 Venturi Mask 50 10/28/16 04:00 99.2 104 18 91/52 89 10/28/16 04:00 102 10/28/16 01:27 95 Venturi Mask 6.00 50 10/28/16 01:00 101.3 10/28/16 00:00 119 10/28/16 00:00 102.7 125 28 117/59 90 10/27/16 20:00 Venturi Mask 50 10/27/16 20:00 98.6 106 25 131/67 91 10/27/16 20:00 109 10/27/16 16:00 100.1 113 19 106/57 90 10/27/16 16:00 113 I/O 10/27/16 10/27/16 10/27/16 10/28/16 10/28/16 10/28/16 07:00 15:00 23:00 07:00 15:00 23:00 Intake Total 1060 ml 885 ml 779 ml 718 ml Output Total 1050 ml 825 ml 800 ml 1050 ml Balance 10 ml 60 ml -21 ml -332 ml Intake Oral 360 ml 250 ml 240 ml 120 ml IV Total 700 ml 120 ml 137 ml 126 ml TPN/PPN 515 ml 402 ml 472 ml Output Urine Total 300 ml 350 ml 300 ml 250 ml Stool Total 750 ml 450 ml 500 ml 800 ml Drainage Total 0 ml 25 ml 0 ml 0 ml Result Diagram: 10/28/1642910/28/16429 Objective Remarks GENERAL: Chronically ill-appearing patient. CARDIOVASCULAR: Regular rate and rhythm without murmurs, gallops, or rubs. RESPIRATORY: Clear to auscultation. Breath sounds equal bilaterally. No wheezes , rales, or rhonchi. GASTROINTESTINAL: Abdomen soft, right-sided ostomy with green/brown liquid stool. Left-sided ostomy with some blood. No rebound or guarding. wound VAC in midline MUSCULOSKELETAL: Left BKA healed. NEUROLOGICAL: Normal speech. Procedures Left stump debridement by Dr. Hill on 06/15/16 Bedside debridement of preperitoneal fat that was protruding from the abdominal fistula 09/01/16 central line placement Exploratory laparotomy, resection of the anterior abdominal wall fistula tract, resection of the transverse colon to small bowel anastomosis, lysis of adhesions of the small bowel with repair of two enterotomies, right-sided ileostomy, left-sided mucous fistula and partial removal of a ventral hernia mesh. Date of Insertion: Jun 20, 2016 Side: Left A/P Problem List: (1) Septic shock ICD Code: A41.9 Status: Acute (2) Acute hypoxemic respiratory failure ICD Code: J96.01 Status: Acute (3) Ischemic colitis ICD Code: K55.9 Status: Resolved (4) COPD (chronic obstructive pulmonary disease) ICD Code: J44.9 Status: Chronic (5) depression Status: Chronic (6) Peripheral neuropathy ICD Code: G62.9 Status: Chronic (7) Chronic diastolic (congestive) heart failure ICD Code: I50.32 Status: Chronic (8) ZIA (acute kidney injury) ICD Code: N17.9 Status: Resolved (9) emergent Ex Lap for ischemic bowel/perforation 10/08/16 Status: Acute (10) Acute blood loss anemia ICD Code: D62 Status: Acute Assessment and Plan 71 year old female who was admitted to the hospital in Oct 2015 due to ischemic bowel and subsequently underwent resection of large, small bowel and cholecystectomy. 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 Patient was discharged to SNF but returned to the hospital due to post surgical complications. She underwent left foot amputation and subsequently had a lot of post surgical complications requiring wound vac. Patient was on TPN. She went into septic shock. Eventually she underwent exploratory laparotomy with resection of the segment of the large bowel containing the anastomosis to the small bowel and the fistula, end ileostomy and mucous fistula colostomy creation and removal of segments of ventral hernia mesh placed at some point many years in the past. Septic shock Ischemic colitis s/p Ex lap, resection of anterior abdominal wall fistula tract, resection of transverse colon to small bowel anastomosis, right sided ileostomy, left sided mucous fistula and partial removal of a ventral hernia mesh 10/08/16 -Antibiotics DC per Infectious disease Fungemia. Improvement on antifungal. Continue antifungals as per infectious disease. Continue high dose fluconazole x 4 wks from PORT removal and 1st neg BC Chest abscess cultures positive for nilson. Follow-up cultures. Echocardiogram cannot rule out vegetation. May need transesophageal echo, will defer to infectious disease. Continue antifungals as per infectious disease. Recurrent fever. Agree with ID, consider repeating A/P CT if fever persist as she previously had a known fluid collection on CT. Ophthalmology consulted per ID. Repeat blood cultures. COPD Acute hypoxemic respiratory failure - s/p extubation on 10/10/2016. - Continue bronchodilators, Incentive spirometry. -On O2 5 L. Respiratory status fluctuates. Monitor closely. - Chest x-ray today with minimal parenchymal changes on the right base. Repeat chest x-ray in a.m. Acute blood loss anemia - s/p 4 units of PRBCs on 10/08/2016. - Hemoglobin continue stable. Monitor as necessary. 1/2-Acute anemia drop in hemoglobin 8.1.. - transfused 2 units 11/20. Hemoglobin 10. Monitor Acute renal insufficiency: Likely secondary to above processes and dehydration. - Start IV fluid. Repeat labs in a.m. Diabetes mellitus. -On TPN. Continue sliding scale. Full code. Xarelto. Protonix IV. Discharge Planning Keep in ICU. At risk for sudden decompensation. Manolo Holm MD Oct 28, 2016 12:19
[2016-10-28] MEDS ORDERED: SODIUM CHLOR 0.9% 1000 ML INJ 1,000 ML IV SCH (12:30)
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
--- NOTE | 2016-10-28 14:38 | PD.CONS ---
History of Present Illness Service Ophthalmology Consult Requested By Dr. Arroyo Reason for Consult rule out fungal endophthalmitis Primary Care Physician Kathy Byrnes MD Diagnoses: History of Present Illness Ms70 y/o [place] with PMHX significant for ischemic bowel s/p resection and development of chronic enterocutaneous fistula, asthma, depression, COPD, severe peripheral vascular disease status post left BKA. Patient has been receiving TPN due to her Enterocutaneous fistula and poor nutritional status. I evaluated her 2 months regarding a rash near her eyes. She was recently diagnosed with Danni growing from her port site, and was called to rule out fungal endophthalmitis. She states her vision has not changed recently, and she does see floaters but these are not new. Past Family Social History Allergies: Coded Allergies: Levaquin (Verified Allergy, Severe, Edema, 05/29/16) Penicillin (Unverified Allergy, Intermediate, hives, 03/10/16) Sulfa (Unverified Allergy, Intermediate, hives, 03/10/16) *MDRO Multi-Drug Resistant Organism (Verified Adverse Reaction, Unknown, ) ESBL+Klebsiella (leg-06/15/16) Physical Exam Vital Signs Vital Signs Date Time Temp Pulse Resp B/P Pulse Ox O2 Delivery O2 Flow Rate FiO2 10/28/16 08:24 89 Venturi Mask 50 10/28/16 07:15 90 Venturi Mask 50 10/28/16 04:00 99.2 104 18 91/52 89 10/28/16 04:00 102 10/28/16 01:27 95 Venturi Mask 6.00 50 10/28/16 01:00 101.3 10/28/16 00:00 119 10/28/16 00:00 102.7 125 28 117/59 90 10/27/16 20:00 Venturi Mask 50 10/27/16 20:00 98.6 106 25 131/67 91 10/27/16 20:00 109 10/27/16 16:00 100.1 113 19 106/57 90 10/27/16 16:00 113 Physical Exam Va cc at near OD 20/100, OS 20/100 EOM full OU, no diplopia CVF full OU Pupils 2-1 no APD OU IOP normal to palpation OU Anterior exam OD - normal eyelid, C/S W&Q, K clear, AC deep, pupil round, lens clear OS - normal eyelid, C/S W&Q, K clear, AC deep, pupil round, lens clear Dilated exam OD - ON s/p/f, ves normal, vit clear, retina flat OS - ON s/p/f, ves normal, vit clear, retina flat Laboratory Laboratory Tests Test 10/28/16 04:30 White Blood Count 14.1 Red Blood Count 3.87 Hemoglobin 10.9 Hematocrit 32.9 Mean Corpuscular Volume 85.0 Mean Corpuscular Hemoglobin 28.1 Mean Corpuscular Hemoglobin 33.1 Concent Red Cell Distribution Width 16.1 Platelet Count 318 Mean Platelet Volume 9.9 Sodium Level 133 Potassium Level 3.6 Chloride Level 90 Carbon Dioxide Level 34.6 Anion Gap 8 Blood Urea Nitrogen 41 Creatinine 1.47 Estimat Glomerular Filtration 35 Rate Random Glucose 270 Calcium Level 9.2 Date/Time Procedure Status Source Growth 10/27/16 22:34 Aerobic Blood Culture - Preliminary Resulted Blood Peripheral NO GROWTH IN 1 DAY 10/27/16 22:34 Anaerobic Blood Culture - Preliminary Resulted Blood Peripheral NO GROWTH IN 1 DAY Result Diagram: 10/28/16 0430 10/28/16 0430 Assessment and Plan Problem List: (1) Danni sepsis Status: Acute Plan: No eye involvement. Abbey Greene MD Oct 28, 2016 14:38
[2016-10-28] MEDS: SODIUM CHLOR 0.9% 1000 ML INJ 1,000 ML IV SCH (15:59)
[2016-10-28] MEDS: FLUCONAZOLE 400 MG PREMIX BAG 200 ML IV SCH (18:50)
[2016-10-28] MEDS: MIRTAZAPINE ODT 15 MG TAB PO SCH (21:00)
[2016-10-29] VITALS (14 sets, daily range): BP systolic 106–157; BP diastolic 55–69; PULSE 85–118; RESP 18–24; TEMP 98–98.9; O2SAT 86–98
[2016-10-29] MEDS: HYDROmorphone HCL PF 1 MG/ML VIAL IV PRN (04:30)
[2016-10-29] MEDS: ONDANSETRON HCL 4 MG/2 ML VIAL IV PUSH PRN ×2 (05:06→10:01)
[2016-10-29 05:19] LABS: HEMATOCRIT 30.1 % (35.0-46.0); MEAN CELL VOLUME 84.1 FL (80.0-100.0); MEAN CORPUSCULAR HEMOGLOBIN 27.7 PG (27.0-34.0); MEAN CORPUSCULAR HGB CONC 32.9 % (32.0-36.0); PLATELET COUNT 300 TH/MM3 (150-450); RED BLOOD COUNT 3.58 MIL/MM3 (4.00-5.30); RED CELL DISTRIBUTION WIDTH 16.3 % (11.6-17.2); REVIEW FLAG FINAL; WHITE BLOOD COUNT 13.1 TH/MM3 (4.0-11.0)
[2016-10-29 05:51] LABS: BICARBONATE 35.5 MEQ/L (21.0-32.0); POTASSIUM 3.6 MEQ/L (3.5-5.1)
--- NOTE | 2016-10-29 06:57 | RADRPT ---
EXAM DATE/TIME: 10/29/2016 04:52 [facility] COMPARISON: CHEST SINGLE AP, October 28, 2016, 8:07. INDICATIONS : Short of breath. MEDICAL HISTORY : None. SURGICAL HISTORY : None. ENCOUNTER: Initial ACUITY: 3 days PAIN SCORE: Non-responsive. LOCATION: Bilateral chest FINDINGS: The patient is rotated towards the right. There is an asymmetry to the appearance of the lungs with diffuse increased density on the left side when compared to the right. This could be artifactual, be cause the soft tissues also demonstrate a similar gradient. There is persistent partially consolidat arlin infiltrate in the right infrahilar region. Multiple hemoclips the right axilla. Right central l ine catheter tip projects at the cavoatrial junction. CONCLUSION: Persistent patchy infiltrates in the right infrahilar region. Kevan Davis MD on October 29, 2016 at 6:54 Board Certified Radiologist. This report was verified electronically.
[2016-10-29] MEDS: CHLORHEXIDINE 0.12% (ORAL KIT) 15 ML CUP MT SCH ×2 (08:00→20:00)
[2016-10-29] MEDS: OXYBUTYNIN CHLORIDE 5 MG TAB PO SCH ×3 (08:07→21:47)
[2016-10-29] MEDS: INSULIN ASPART SUPPLEMENTAL SCALE SQ SCH ×4 (08:10→22:44)
[2016-10-29] MEDS: ZINC SULFATE 220 MG CAP PO SCH (09:00)
[2016-10-29] MEDS: CALCITRIOL 0.25 MCG CAP PO SCH (09:29)
[2016-10-29] MEDS: DULoxetine HCl DR 30 MG CAP PO SCH (09:29)
[2016-10-29] MEDS: FERROUS SULFATE 325 MG (65 MG ELEMENTAL IRON) TAB PO SCH (09:30)
[2016-10-29] MEDS: CARVEDILOL 3.125 MG TAB PO SCH ×2 (09:30→21:45)
[2016-10-29] MEDS: CALCIUM/VITAMIN D 250 MG/125 U TAB PO SCH ×2 (09:30→21:45)
[2016-10-29] MEDS: SODIUM CHLORIDE 0.9% FLUSH 5 ML FLUSH IVF SCH ×2 (09:33→21:00)
[2016-10-29] MEDS: HYDROmorphone HCL PF 2 MG/ML VIAL IV PRN ×2 (09:35→22:46)
[2016-10-29] MEDS: RIVAROXABAN 15 MG TAB PO SCH (10:00)
[2016-10-29] MEDS: NYSTATIN 100,000 U/GM PWD 15 GM BTL TOPICAL SCH ×2 (10:01→21:00)
[2016-10-29] MEDS: MICAFUNGIN INJ 150 MG in SODIUM CHLORIDE 0.9% INJ 100 ML IV SCH (10:03)
[2016-10-29] MEDS: SODIUM CHLOR 0.9% 1000 ML INJ 1,000 ML IV SCH ×2 (10:03→20:00)
[2016-10-29] MEDS: ZINC OXIDE 40% OINT 60 GM TUBE TOPICAL PRN (10:26)
[2016-10-29] MEDS: RESP: ALBUTEROL 2.5 MG/IPRATROPIUM 0.5 MG NEB (PRN) NEB (10:35)
[2016-10-29] MEDS: CLINIMIX E 5/25 2000 mL- >42 mls/hr IV-CENTRAL SCH ×3 (13:33)
--- NOTE | 2016-10-29 14:49 | HHI.PR ---
Subjective Remarks Patient has no new complaints. BOY RN. No events overnight. Patient still not eating. Objective Vitals Vital Signs Date Time Temp Pulse Resp B/P Pulse Ox O2 Delivery O2 Flow Rate FiO2 10/29/16 14:00 85 10/29/16 12:00 93 10/29/16 12:00 98.0 93 18 124/59 88 10/29/16 11:18 90 Nasal Cannula 5.00 10/29/16 10:00 94 10/29/16 08:00 99 10/29/16 08:00 98.0 99 24 106/57 89 10/29/16 07:00 89 Nasal Cannula 4.00 10/29/16 06:00 102 10/29/16 04:00 98.2 104 20 108/55 89 10/29/16 04:00 104 10/29/16 02:00 102 10/29/16 00:00 94 10/29/16 00:00 98.4 94 21 118/56 92 10/28/16 22:50 92 Nasal Cannula 5.00 10/28/16 22:00 100 10/28/16 20:00 102 10/28/16 20:00 91 Venturi Mask 50 10/28/16 20:00 98.6 102 20 105/56 90 10/28/16 19:55 90 Venturi Mask 50 10/28/16 18:00 98.5 86 20 133/88 10/28/16 15:54 14 I/O 10/28/16 10/28/16 10/28/16 10/29/16 10/29/16 10/29/16 07:00 15:00 23:00 07:00 15:00 23:00 Intake Total 718 ml 550 ml 2106 ml 1539 ml 1546 ml Output Total 1050 ml 650 ml 725 ml 1250 ml 1575 ml Balance -332 ml -100 ml 1381 ml 289 ml -29 ml Intake Oral 120 ml 200 ml 440 ml 280 ml 240 ml IV Total 126 ml 350 ml 740 ml 793 ml 848 ml TPN/PPN 472 ml 926 ml 466 ml 458 ml Output Urine Total 250 ml 250 ml 200 ml 425 ml 375 ml Stool Total 800 ml 400 ml 475 ml 825 ml 1175 ml Drainage Total 0 ml 50 ml 0 ml 25 ml Result Diagram: 10/29/16 0445 10/29/16 0445 Objective Remarks GENERAL: Chronically ill-appearing patient. CARDIOVASCULAR: Regular rate and rhythm without murmurs, gallops, or rubs. RESPIRATORY: Clear to auscultation. Breath sounds equal bilaterally. No wheezes , rales, or rhonchi. GASTROINTESTINAL: Abdomen soft, right-sided ostomy with green/brown liquid stool. Left-sided ostomy blood tinged. No rebound or guarding. wound VAC in midline MUSCULOSKELETAL: Left BKA healed. NEUROLOGICAL: Normal speech. Procedures Left stump debridement by Dr. Hill on 06/15/16 Bedside debridement of preperitoneal fat that was protruding from the abdominal fistula 09/01/16 central line placement Exploratory laparotomy, resection of the anterior abdominal wall fistula tract, resection of the transverse colon to small bowel anastomosis, lysis of adhesions of the small bowel with repair of two enterotomies, right-sided ileostomy, left-sided mucous fistula and partial removal of a ventral hernia mesh. Date of Insertion: Jun 20, 2016 Side: Left A/P Problem List: (1) Septic shock ICD Code: A41.9 Status: Acute (2) Acute hypoxemic respiratory failure ICD Code: J96.01 Status: Acute (3) Ischemic colitis ICD Code: K55.9 Status: Resolved (4) COPD (chronic obstructive pulmonary disease) ICD Code: J44.9 Status: Chronic (5) depression Status: Chronic (6) Peripheral neuropathy ICD Code: G62.9 Status: Chronic (7) Chronic diastolic (congestive) heart failure ICD Code: I50.32 Status: Chronic (8) ZIA (acute kidney injury) ICD Code: N17.9 Status: Resolved (9) emergent Ex Lap for ischemic bowel/perforation 10/08/16 Status: Acute (10) Acute blood loss anemia ICD Code: D62 Status: Acute Assessment and Plan 71 year old female who was admitted to the hospital in Oct 2015 due to ischemic bowel and subsequently underwent resection of large, small bowel and cholecystectomy. 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 Patient was discharged to SNF but returned to the hospital due to post surgical complications. She underwent left foot amputation and subsequently had a lot of post surgical complications requiring wound vac. Patient was on TPN. She went into septic shock. Eventually she underwent exploratory laparotomy with resection of the segment of the large bowel containing the anastomosis to the small bowel and the fistula, end ileostomy and mucous fistula colostomy creation and removal of segments of ventral hernia mesh that was placed at some point in the past. Septic shock Ischemic colitis s/p Ex lap, resection of anterior abdominal wall fistula tract, resection of transverse colon to small bowel anastomosis, right sided ileostomy, left sided mucous fistula and partial removal of a ventral hernia mesh 10/08/16 -Antibiotics DC per Infectious disease Fungemia. Persistent despite Fluconazole. Micafungin was added. Continue antifungals as per infectious disease. Continue high dose fluconazole x 4 wks from PORT removal and 1st neg BC Chest abscess cultures positive for nilson. Follow-up cultures. Echocardiogram cannot rule out vegetation. May need transesophageal echo, will defer to infectious disease. Continue antifungals as per infectious disease and Surgery. Repeat blood cultures still Positive for yeast. COPD Acute hypoxemic respiratory failure - s/p extubation on 10/10/2016. - Continue bronchodilators, Incentive spirometry. -On O2 5 L. Respiratory status fluctuates. Monitor closely. Still on Ventimask - Chest x-ray today with minimal parenchymal changes on the right base. Repeat chest x-ray with persistent infiltrate. Will discuss with ID. Patient has been on prolonged course of antibiotics that were dc a few days ago. Acute blood loss anemia - s/p 4 units of PRBCs on 10/08/2016. - Hemoglobin continue stable. Monitor Acute renal insufficiency: Likely secondary to above processes and dehydration. - Continue IV fluid. Repeat labs in a.m. Diabetes mellitus. -On TPN. Continue sliding scale. Full code. Xarelto. Protonix IV. Discharge Planning ICU. Patient still require Ventimask. At risk for sudden decompensation. Manolo Holm MD Oct 29, 2016 14:49
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
[2016-10-29] MEDS: MIRTAZAPINE ODT 15 MG TAB PO SCH (21:00)
[2016-10-29] MEDS: FAT EMULSION 20% INJ 250 ML (Twice weekly over 8 hours) IV-CENTRAL SCH (21:45)
[2016-10-30] VITALS (14 sets, daily range): BP systolic 95–146; BP diastolic 51–70; PULSE 88–111; RESP 15–24; TEMP 97.6–102.1; O2SAT 86–98
[2016-10-30] MEDS: HYDROmorphone HCL PF 1 MG/ML VIAL IV PRN ×5 (03:30→20:40)
[2016-10-30 06:12] LABS: HEMATOCRIT 30.5 % (35.0-46.0); MEAN CORPUSCULAR HGB CONC 32.9 % (32.0-36.0); PLATELET COUNT 268 TH/MM3 (150-450); RED BLOOD COUNT 3.59 MIL/MM3 (4.00-5.30); RED CELL DISTRIBUTION WIDTH 16.3 % (11.6-17.2); REVIEW FLAG FINAL; WHITE BLOOD COUNT 16.3 TH/MM3 (4.0-11.0)
[2016-10-30 06:40] LABS: BICARBONATE 33.2 MEQ/L (21.0-32.0); POTASSIUM 3.5 MEQ/L (3.5-5.1)
[2016-10-30] MEDS: INSULIN ASPART SUPPLEMENTAL SCALE SQ SCH ×4 (06:46→22:35)
[2016-10-30] MEDS: OXYBUTYNIN CHLORIDE 5 MG TAB PO SCH ×3 (06:46→20:25)
[2016-10-30] MEDS: CHLORHEXIDINE 0.12% (ORAL KIT) 15 ML CUP MT SCH ×2 (08:00→20:00)
[2016-10-30] MEDS: CALCITRIOL 0.25 MCG CAP PO SCH (09:52)
[2016-10-30] MEDS: CARVEDILOL 3.125 MG TAB PO SCH ×2 (09:52→20:24)
[2016-10-30] MEDS: RIVAROXABAN 15 MG TAB PO SCH (09:52)
[2016-10-30] MEDS: DULoxetine HCl DR 30 MG CAP PO SCH (09:52)
[2016-10-30] MEDS: FERROUS SULFATE 325 MG (65 MG ELEMENTAL IRON) TAB PO SCH (09:53)
[2016-10-30] MEDS: NYSTATIN 100,000 U/GM PWD 15 GM BTL TOPICAL SCH ×2 (09:53→21:00)
[2016-10-30] MEDS: CALCIUM/VITAMIN D 250 MG/125 U TAB PO SCH ×2 (09:53→20:24)
[2016-10-30] MEDS: ZINC SULFATE 220 MG CAP PO SCH (09:53)
[2016-10-30] MEDS: SODIUM CHLORIDE 0.9% FLUSH 5 ML FLUSH IVF SCH ×2 (09:55→21:00)
[2016-10-30] MEDS: MICAFUNGIN INJ 150 MG in SODIUM CHLORIDE 0.9% INJ 100 ML IV SCH (11:21)
[2016-10-30] MEDS: ACETAMINOPHEN 325 MG TAB PO PRN ×2 (11:21→20:24)
[2016-10-30] MEDS: HYDROmorphone HCL PF 2 MG/ML VIAL IV PRN (14:18)
[2016-10-30] MEDS: SODIUM CHLOR 0.9% 1000 ML INJ 1,000 ML IV SCH (15:31)
--- NOTE | 2016-10-30 15:58 | PD.CAR.PN ---
CVT Progress Note Subjective/Hospital Course: 70-year-old female with a complex medical and surgical history of peripheral vascular disease and multiple related problems presents now status post BK amputation about a month half ago. Patient went to alf and apparently braced herself on the stump several times in bed in hit it against either floor or the chair not quite clear. Part of the stump opened up and at this point patient is dehiscence of skin deeper tissue seemed to be still intact. 06/16/16 Patient underwent yesterday debridement of the stump with wound VAC placement. The dehiscence is fortunately superficial involving skin and muscle in this as been debrided successfully while the rest of the tissues of bleeding and are viable. Wound VAC has been placed Cultures have been reviewed and antibiotics can be adjusted by medicine as appropriate We'll continue current care and patient should be able to go to alf with a wound VAC by Sunday Patient's nutritional status is very poor with a low albumen and prealbumin level and therefore nutritional evaluation and recommendations are requested I believe the patient is not taking sufficient by mouth in the alf and may need supplemental enteral or parenteral feedings at this point 06/17/16 I reviewed the nutritional parameters and patient's prealbumin and transferrin levels a critically low indicating severe malnutrition. Patient's healing is impaired and so is the rehabilitative potential. After reviewing to nutritional recommendations once these are made, we will decide whether patient needs an [id number]-Blgt placed for additional parenteral nutrition for short bowel syndrome Stump is nice and clean with minimal drainage from the wound VAC 06/19/16 Still awaiting nutritional consult and evaluation for patient has short gut syndrome and will probably need additional parenteral feedings. If so patient will need [id number] placement for additional feedings Patient is taking excellent by mouth but despite that her nutritional status is poor and hence the healing issues Left BKA stump incision is clean and wound VAC is in place with minimal drainage and will need to be changed today Awaiting wound care to change the wound VAC. Infectious disease help is much appreciated 06/20/2016 Patient doing well at this time. Stump is clean and the wound VAC will be changed today Patient had [id number] placed by radiology for supplemental parenteral feedings. Grateful for the nutritional evaluation. Patient will be placed on TPN at about the 1500 non-protein calories a day split about 60-70% in glucose and about 30% in form of lipids Patient will likely have to be discharged on supplemental TPN in face of her short bowel syndrome 06/21/16 Patient is doing really well at this time She's taking good by mouth diet. 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 There is some granulation tissue which may eventually need to be debrided but at this point I would leave it alone. Stump wound VAC has been changed and this is clean and granulating nicely. Patient is currently on TPN which tolerating well. In face of her short bowel syndrome patient will need TPN after discharge from the hospital. Grateful to case management for making arrangements for the same 06/22/16 Vital signs stable patient is doing well. Her appetite has improved and patient is taking good by mouth diet and having regular bowel movements. The abdominal incision is completely healed and fistula has completely resolved. The BKA wound VAC has been changed and wound is clean and granulating nicely. [id number]-[id number] is being used for additional parenteral feedings necessary and short bowel syndrome and patient will be discharged on TPN. 06/23/16 Patient underwent today change of the wound VAC and the wound is clean. Next with will be the last wound VAC change and after that I plan to take the patient to the OR for irrigation and closure of the wound by the middle of the next week. 06/24/16 Patient doing very well at this time she is in a good mood and taking by mouth diet well Unfortunately due to the short bowel syndrome she need supplemental TPN feedings at this time Stump is healed nicely there is a small scab anterior to it and this should allow to fall off on its own Once the arrangements are made for outpatient TPN patient will be able to be discharged Awaiting case management to make the arrangements for outpatient TPN 06/25/16 Vital signs stable Patient is awake and alert and oriented, taking by mouth diet very well Abdomen is soft and the colocutaneous fistula is completely closed The BKA stump has an eschar and a scab but I would leave this alone because underneath its healing nicely. Patient remains on TPN considering the short gut syndrome and will go home on the same Mild anemia is dilutional due to TPN administration and intravenous fluids and does not require therapy at this time 06/26/16 Vital signs stable Patient is awake and alert and oriented, taking by mouth diet very well Abdomen is soft and the colocutaneous fistula is completely closed The BKA stump has an eschar and a scab but I would leave this alone because underneath its healing nicely. Patient remains on TPN considering the short gut syndrome and will go home on the same Mild anemia is dilutional due to TPN administration and intravenous fluids and does not require therapy at this time 06/27/16 Wound VAC has been removed by me and the the entire stump is healed very nicely except a small area but an inch length at the very lateral portion of the incision were we going to put a very small wound VAC on for another week or so. Patient can transfer to rehabilitation at any time as long as she can get intravenous TPN in the process 06/28/16 Wound VAC has been removed by me and the the entire stump is healed very nicely except a small area but an inch length at the very lateral portion of the incision were we going to put a very small wound VAC on for another week or so. Patient can transfer to rehabilitation at any time as long as she can get intravenous TPN Patient will need terminal carman TPN considering short gut syndrome and this can be done either in a alf or at home I suspect this will be about a six-month process and after that patient may not need additional feedings if we can get her in a reasonable nutritional status in the meantime. I understand the difficulty this creates for case management to find her such an arrangement 06/29/16 Patient doing really well at this time taking good by mouth but due to the short bowel syndrome will require long-term TPN Stump is healing really nicely and the probably after this week we will remove the wound VAC and simply place wet-to-dry dressing and allow this to heal 06/30/16 Patient is doing well tolerates diet. Abdomen is soft with active bowel sounds Incisions are clean and dry Wound VAC last change will be next week and after that we going to remove the wound VAC and continue wet-to-dry dressing Stump is healing really nicely Due to TPN and other issues placement remains a problem 07/01/16 Abdomen soft and active bowel sounds Tolerates diet well Stump is clean and dry and I'll remove the wound VAC on Sunday after that patient will just be on wet-to-dry dressings until the stump heels Arrangements for discharge to difficult due to long-term TPN needs 07/03/16 Vital signs stable Stump is clean and wound VAC after next removal won't need to be applied again Patient will remain long-term on TPN and I'm waiting for case management to make discharge arrangements Will [facility] medicine kindly if patient can be transferred to medicine service at this time 07/14/16 Patient is a placement issue apparently is still in the hospital The left BKA stump is healed nicely except for very small air about 1 cm which is granulating in on the lateral aspect of the stump Apparently the enterocutaneous fistula was close for about month and a half and opened up 2 days ago draining some stool It should be noted that the bowel is quite close to the skin and patient is very thin and malnourished so it is not surprising that fistula opens and closes sporadically. With enteral and parenteral nutrition that should close but clearly patient is very frail and it could open up any time Nothing to add to care at this time 07/26/16 Discussed the patient with medical attending. She has systemic cutaneous herpes zoster and is on appropriate medications The drainage from anterior abdominal wall is very minimal however irritating to the skin of the abdominal wall in face of herpes and the nature of intestinal fluid. Just putting dressings will only worsen the situation so patient should be treated with the stoma and coverage of the skin. Unfortunately the colostomy material will not stick to the skin and the contents will leak underneath it. At point is best solution was due to apply Silvadene ointment daily and then dressing Patient's appetite is very poor sure refuses food and she remains on TPN although her GI tract is completely patent Her prognosis in general is for due to malnutrition short bowel syndrome and immune failure. 09/01/16 Patient seen at [facility]. Patient has tremendously improved in the last month or so. The rash she had has since disappeared I am not sure this was a herpetic rash or perhaps caused by zinc or selenium deficiency At this point patient is eating well and she is again about 15 pounds. Her short bowel syndrome as being managed adequately with improvement of by mouth intake and modification of the diet Abdomen is soft with active bowel sounds and the fistula has closed There is small amount of preperitoneal fat extruding from the abdomen incision. I debrided this at the bedside In the worse case scenario patient would have to go to the operating room to have this cauterized away and reclosed but I would certainly like to avoid this in this lady was finally recovering nicely 11/20/16 Last night patient was straining when going to bathroom and enterocutaneous fistula opened up again Patient is now draining stool over the last 24 hours. 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 She underwent several surgeries and it is a miracle that patient has survived all this. The fistulous tract has now opened and closed about 5 times since September last year when patient's first came and this is now another instance of the same. As far as the fistulous tract is concerned this patient is not a candidate for an open surgery due to malnutrition, short bowel syndrome in the anatomic considerations. Going into this abdomen with resultant multiple fistulas, damage to the remaining small bowel and likely of the patient Therefore the appropriate way to manage this as conservatively filled the fistula tracts closes again Physical examination reveals skin inferior to the fistula to be starting to get red again and irritated although it was nicely healed as stated in above note It should be noted that this is distal small bowel content and therefore fairly caustic so meticulous care has to be taken not to allow this to be in contact with the skin On my arrival one part of the fistula in the midline is covered with a colostomy bag while the stool is freely draining all over the patient's abdomen between the legs and on the bed I went into the room ostomy nurse to come with me and removed personally everything cleaned patient up with nursing assistance I said down with the supervisor bottle house cleaners and the nurse and explained in detail how this should be covered and how the stoma should be structured in order to protect the skin Apparently large pieces of stoma skin adhesive material are not available here and let to be brought from [facility]. The same large pieces were used when patient first came to [facility] and care was described in orders At this point meticulous care has to be taken in order to prevent skin damage and free leakage It is also imperative that the wound care gets involved in management of this patient 10/30/16 Patient had the spike a fever today to 101.8 White count 16,000 Abdomen is soft with active bowel sounds and ileostomy is working very well Bilateral breath sounds and no rhonchi or rales Wound VAC has been changed today and I'll look to the wound leg really looks nice and healing very nicely with good granulation tissue No signs of dehiscence I believe the fever spikes are part of the fungemia and unfortunately 30-50% of patients will develop systemic fungemia in this setting will succumb to the same despite maximum therapy Patient remains on micafungin Continue care Objective: Vital Signs Date Time Temp Pulse Resp B/P Pulse Ox O2 Delivery O2 Flow Rate FiO2 10/30/16 14:00 94 10/30/16 13:50 88 Nasal Cannula 6.00 10/30/16 12:00 93 10/30/16 12:00 99.7 93 20 114/59 97 10/30/16 10:00 109 10/30/16 08:00 102.1 111 24 146/70 90 10/30/16 08:00 110 10/30/16 07:11 92 Partial Rebreather 15.00 10/30/16 07:00 92 Partial Non-Rebreather 15.00 10/30/16 06:00 105 10/30/16 04:00 98 10/30/16 04:00 98.7 111 22 110/58 98 10/30/16 02:00 95 10/30/16 00:00 98.7 111 22 110/58 98 10/30/16 00:00 100 10/29/16 22:00 100 10/29/16 20:22 86 Venturi Mask 6.00 50 10/29/16 20:22 94 Partial Rebreather 11.00 10/29/16 20:00 98.7 111 22 119/58 98 10/29/16 20:00 111 10/29/16 20:00 94 Partial Non-Rebreather 11.00 10/29/16 18:00 118 10/29/16 17:45 84 Venturi Mask 50 10/29/16 16:00 95 10/29/16 16:00 98.9 107 24 157/69 89 Labs: Laboratory Tests Test 10/30/16 06:00 White Blood Count 16.3 TH/MM3 (4.0-11.0) Red Blood Count 3.59 MIL/MM3 (4.00-5.30) Hemoglobin 10.0 GM/DL (11.6-15.3) Hematocrit 30.5 % (35.0-46.0) Mean Corpuscular Volume 85.0 FL (80.0-100.0) Mean Corpuscular Hemoglobin 28.0 PG (27.0-34.0) Mean Corpuscular Hemoglobin 32.9 % Concent (32.0-36.0) Red Cell Distribution Width 16.3 % (11.6-17.2) Platelet Count 268 TH/MM3 (150-450) Mean Platelet Volume 9.6 FL (7.0-11.0) Sodium Level 135 MEQ/L (136-145) Potassium Level 3.5 MEQ/L (3.5-5.1) Chloride Level 97 MEQ/L (98-107) Carbon Dioxide Level 33.2 MEQ/L (21.0-32.0) Anion Gap 5 MEQ/L (5-15) Blood Urea Nitrogen 30 MG/DL (7-18) Creatinine 0.96 MG/DL (0.50-1.00) Estimat Glomerular Filtration 57 ML/MIN (>89) Rate Random Glucose 271 MG/DL (74-106) Calcium Level 9.2 MG/DL (8.5-10.1) Result Diagram: 10/30/16 0600 10/30/16 0600 Janice Olvera MD Oct 30, 2016 15:58
[2016-10-30] MEDS: FLUCONAZOLE 400 MG PREMIX BAG 200 ML IV SCH (16:23)
--- NOTE | 2016-10-30 16:55 | HHI.PR ---
Subjective Remarks Patient reports that she is feeling okay. She is now on a 6 L nasal cannula. Her oxygen saturation comes up easily when she takes deep breaths. Discuss with RN and Dr. Hill Objective Vitals Vital Signs Date Time Temp Pulse Resp B/P Pulse Ox O2 Delivery O2 Flow Rate FiO2 10/30/16 16:00 88 10/30/16 16:00 97.6 88 15 95/51 88 10/30/16 14:00 94 10/30/16 13:50 88 Nasal Cannula 6.00 10/30/16 12:00 93 10/30/16 12:00 99.7 93 20 114/59 97 10/30/16 10:00 109 10/30/16 08:00 102.1 111 24 146/70 90 10/30/16 08:00 110 10/30/16 07:11 92 Partial Rebreather 15.00 10/30/16 07:00 92 Partial Non-Rebreather 15.00 10/30/16 06:00 105 10/30/16 04:00 98 10/30/16 04:00 98.7 111 22 110/58 98 10/30/16 02:00 95 10/30/16 00:00 98.7 111 22 110/58 98 10/30/16 00:00 100 10/29/16 22:00 100 10/29/16 20:22 86 Venturi Mask 6.00 50 10/29/16 20:22 94 Partial Rebreather 11.00 10/29/16 20:00 98.7 111 22 119/58 98 10/29/16 20:00 111 10/29/16 20:00 94 Partial Non-Rebreather 11.00 10/29/16 18:00 118 10/29/16 17:45 84 Venturi Mask 50 I/O 10/29/16 10/29/16 10/29/16 10/30/16 10/30/16 10/30/16 07:00 15:00 23:00 07:00 15:00 23:00 Intake Total 1539 ml 1546 ml 1568 ml 1666 ml 1716 ml Output Total 1250 ml 1575 ml 1700 ml 2150 ml 2075 ml Balance 289 ml -29 ml -132 ml -484 ml -359 ml Intake Oral 280 ml 240 ml 200 ml 150 ml 360 ml IV Total 793 ml 848 ml 799 ml 741 ml 848 ml TPN/PPN 466 ml 458 ml 569 ml 544 ml 508 ml Lipid 231 ml Output Urine Total 425 ml 375 ml 400 ml 900 ml 400 ml Stool Total 825 ml 1175 ml 1300 ml 1200 ml 1675 ml Drainage Total 0 ml 25 ml 0 ml 50 ml 0 ml Result Diagram: 10/30/16 0600 10/30/16 0600 Objective Remarks GENERAL: Chronically ill-appearing patient. CARDIOVASCULAR: Regular rate and rhythm without murmurs, gallops, or rubs. RESPIRATORY: Clear to auscultation. Breath sounds equal bilaterally. No wheezes , rales, or rhonchi. GASTROINTESTINAL: Abdomen soft, right-sided ostomy with green/brown liquid stool. Left-sided ostomy blood tinged. No rebound or guarding. wound VAC in midline MUSCULOSKELETAL: Left BKA healed. NEUROLOGICAL: Normal speech. Procedures Left stump debridement by Dr. Hill on 06/15/16 Bedside debridement of preperitoneal fat that was protruding from the abdominal fistula 09/01/16 central line placement Exploratory laparotomy, resection of the anterior abdominal wall fistula tract, resection of the transverse colon to small bowel anastomosis, lysis of adhesions of the small bowel with repair of two enterotomies, right-sided ileostomy, left-sided mucous fistula and partial removal of a ventral hernia mesh. Date of Insertion: Jun 20, 2016 Side: Left A/P Problem List: (1) Septic shock ICD Code: A41.9 Status: Acute (2) Acute hypoxemic respiratory failure ICD Code: J96.01 Status: Acute (3) Ischemic colitis ICD Code: K55.9 Status: Resolved (4) COPD (chronic obstructive pulmonary disease) ICD Code: J44.9 Status: Chronic (5) depression Status: Chronic (6) Peripheral neuropathy ICD Code: G62.9 Status: Chronic (7) Chronic diastolic (congestive) heart failure ICD Code: I50.32 Status: Chronic (8) ZIA (acute kidney injury) ICD Code: N17.9 Status: Resolved (9) emergent Ex Lap for ischemic bowel/perforation 10/08/16 Status: Acute (10) Acute blood loss anemia ICD Code: D62 Status: Acute Assessment and Plan 71 year old female who was admitted to the hospital in Oct 2015 due to ischemic bowel and subsequently underwent resection of large, small bowel and cholecystectomy. 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 Patient was discharged to SNF but returned to the hospital due to post surgical complications. She underwent left foot amputation and subsequently had a lot of post surgical complications requiring wound vac. Patient was on TPN. She went into septic shock. Eventually she underwent exploratory laparotomy with resection of the segment of the large bowel containing the anastomosis to the small bowel and the fistula, end ileostomy and mucous fistula colostomy creation and removal of segments of ventral hernia mesh that was placed at some point in the past. Septic shock Ischemic colitis s/p Ex lap, resection of anterior abdominal wall fistula tract, resection of transverse colon to small bowel anastomosis, right sided ileostomy, left sided mucous fistula and partial removal of a ventral hernia mesh 10/08/16 -Antibiotics DC per Infectious disease Fungemia. Persistent despite Fluconazole. Micafungin was added. Continue antifungals as per infectious disease and Dr. Hill. Continue high dose fluconazole x 4 wks from PORT removal and 1st neg BC Chest abscess cultures positive for nilson. Follow-up cultures. Echocardiogram cannot rule out vegetation. May need transesophageal echo, will defer to infectious disease. Continue antifungals as per infectious disease and Surgery. Repeat blood cultures still Positive for yeast. COPD Acute hypoxemic respiratory failure - s/p extubation on 10/10/2016. - Continue bronchodilators, Incentive spirometry. - On O2 5 L. Respiratory status fluctuates. Monitor closely. Appear to be improving today. - Chest x-ray today with minimal parenchymal changes on the right base. Repeat chest x-ray with persistent infiltrate. Will discuss with ID. Patient has been on prolonged course of antibiotics that were dc a few days ago. Acute blood loss anemia - s/p 4 units of PRBCs on 10/08/2016. - Hemoglobin continue stable. Monitor Acute renal insufficiency: Likely secondary to above processes and dehydration. - Improving. Continue IV fluid. Repeat labs in a.m. Diabetes mellitus. -On TPN. Continue sliding scale. Full code. Xarelto. Protonix IV. Discharge Planning Stable to transfer to floor. Manolo Holm MD Oct 30, 2016 16:55
[2016-10-30] MEDS: CLINIMIX E 5/25 2000 mL- >42 mls/hr IV-CENTRAL SCH ×3 (20:23)
[2016-10-30] MEDS: MIRTAZAPINE ODT 15 MG TAB PO SCH (20:25)
--- NOTE | 2016-10-30 23:33 | HHI.IDPN ---
Subjective Subjective Remarks Pt seen earlier today this is delayed entry New fever and more + blood clx with C.parapsilosa co abdominal pain poor po intake Antibiotics fluconazol micafungin - started Lines Port: removed Past Medical History 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 Vital Signs Date Time Temp Pulse Resp B/P Pulse Ox O2 Delivery O2 Flow Rate FiO2 10/30/16 20:00 97 10/30/16 20:00 98.1 97 24 142/65 86 10/30/16 19:00 84 Nasal Cannula 6.00 10/30/16 18:00 90 10/30/16 16:00 88 10/30/16 16:00 97.6 88 15 95/51 88 10/30/16 14:00 94 10/30/16 13:50 88 Nasal Cannula 6.00 10/30/16 12:00 93 10/30/16 12:00 99.7 93 20 114/59 97 10/30/16 10:00 109 10/30/16 08:00 102.1 111 24 146/70 90 10/30/16 08:00 110 10/30/16 07:11 92 Partial Rebreather 15.00 10/30/16 07:00 92 Partial Non-Rebreather 15.00 10/30/16 06:00 105 10/30/16 04:00 98 10/30/16 04:00 98.7 111 22 110/58 98 10/30/16 02:00 95 10/30/16 00:00 98.7 111 22 110/58 98 10/30/16 00:00 100 10/29/16 10/29/16 10/30/16 15:00 23:00 07:00 Intake Total 1546 ml 1568 ml 1666 ml Output Total 1575 ml 1700 ml 2150 ml Balance -29 ml -132 ml -484 ml Intake Oral 240 ml 200 ml 150 ml IV Total 848 ml 799 ml 741 ml TPN/PPN 458 ml 569 ml 544 ml Lipid 231 ml Output Urine Total 375 ml 400 ml 900 ml Stool Total 1175 ml 1300 ml 1200 ml Drainage Total 25 ml 0 ml 50 ml . Laboratory Tests Test 10/29/16 10/30/16 04:45 06:00 White Blood Count 13.1 TH/MM3 16.3 TH/MM3 Red Blood Count 3.58 MIL/MM3 3.59 MIL/MM3 Hemoglobin 9.9 GM/DL 10.0 GM/DL Hematocrit 30.1 % 30.5 % Mean Corpuscular Volume 84.1 FL 85.0 FL Mean Corpuscular Hemoglobin 27.7 PG 28.0 PG Mean Corpuscular Hemoglobin 32.9 % 32.9 % Concent Red Cell Distribution Width 16.3 % 16.3 % Platelet Count 300 TH/MM3 268 TH/MM3 Mean Platelet Volume 10.1 FL 9.6 FL Laboratory Tests Test 10/29/16 10/30/16 04:45 06:00 Sodium Level 133 MEQ/L 135 MEQ/L Potassium Level 3.6 MEQ/L 3.5 MEQ/L Chloride Level 93 MEQ/L 97 MEQ/L Carbon Dioxide Level 35.5 MEQ/L 33.2 MEQ/L Anion Gap 5 MEQ/L 5 MEQ/L Blood Urea Nitrogen 43 MG/DL 30 MG/DL Creatinine 1.15 MG/DL 0.96 MG/DL Estimat Glomerular Filtration 47 ML/MIN 57 ML/MIN Rate Random Glucose 223 MG/DL 271 MG/DL Calcium Level 9.4 MG/DL 9.2 MG/DL Imaging Last Impressions Chest X-Ray 10/29/16 0600 Signed Impressions: Service Date/Time: Saturday, October 29, 2016 04:52 - CONCLUSION: Persistent patchy infiltrates in the right infrahilar region. Kevan Davis MD Abdomen/Pelvis CT 10/19/16 0000 Signed Impressions: Service Date/Time: September 15:10 - CONCLUSION: 1. There are 2 small rim-enhancing fluid collections in the right mid abdomen adjacent to the distal ileum that extends into the ileostomy. These measure 2.6 x 1.3 cm and 2.1 x 1.6 cm. These could represent infected fluid collections but are too small to place a drainage catheter. There is an additional small subcapsular fluid collection along the anterior left lobe of the liver. 2. Additionally, there is wall thickening of the distal ileal loops along with marked mesenteric edema. 3. There is a small volume of free fluid in the left upper quadrant around the spleen and in the pelvis. 4. There is a new small left pleural effusion with compressive atelectasis and right lower lobe volume loss versus airspace consolidation. Calixto Uriostegui MD Liver Ultrasound 07/12/16 0000 Signed Impressions: Service Date/Time: Tuesday, July 12, 2016 18:07 - CONCLUSION: 1. No acute abnormality demonstrated. 2. Heterogeneous liver without measurable mass. 3. Small and heterogeneous spleen without a measurable mass. 4. Cortical thinning and scarring of the right kidney. 5. Previous cholecystectomy. Calixto Woodruff MD Chest CT 07/09/16 0000 Signed Impressions: Service Date/Time: Saturday, July 09, 2016 14:43 - CONCLUSION: 1. Small right pleural effusion and minimal right basilar consolidation. 2. 6 mm left basilar nodule. Followup CT chest 6 months recommended. Florian Pepper MD Lower Extremity Ultrasound 06/25/16 0000 Signed Impressions: Service Date/Time: Saturday, June 25, 2016 15:56 - CONCLUSION: Negative exam with no evidence of deep venous thrombosis. Soft tissue edema. Mike Leija MD Port Line Insertion 06/20/16 0000 Signed Impressions: Service Date/Time: Monday, June 20, 2016 08:53 - CONCLUSION: Uncomplicated ultrasound and fluoroscopic guided implanted central venous port catheter placement as described in detail above. An 8 [employer] port was placed. Kevan Salgado Jr., MD Physical Exam CONSTITUTIONAL/GENERAL: fully awake and alert Conversant TUBES/LINES/DRAINS: PORT incision is dry and clean at previous PORT site, no skin changes SKIN: No jaundice, rashes, or lesions. Skin temperature appropriate. Not diaphoretic. HEAD: Atraumatic. Normocephalic. EYES: Pupils equal and round and reactive. Extraocular motions intact. No scleral icterus. No injection or drainage. Fundi not examined. ENT: Oral mucosae without visible erythema, exudates, masses, or lesions. CARDIOVASCULAR: Regular rate and rhythm without murmurs, gallops, or rubs. No JVD. RESPIRATORY/CHEST: Symmetric, unlabored respirations. Clear to auscultation. Breath sounds equal bilaterally. No wheezes, rales, or rhonchi. GASTROINTESTINAL: Abdomen with dressing in place minimally distended quite tender to palpation + BS Mucoid fistula in LLQ with small amount of dark blood GENITOURINARY: Without palpable bladder distension. Hamlin catheter in place with clear yellow urine MUSCULOSKELETAL: Extremities without clubbing, cyanosis, trace edema. NEUROLOGICAL: awake alert conversant Assessment & Plan Remarks IMPRESSION Ischemic bowel, perforation sp emergent resection 10/08 Sepsis 11/23 ischemic bowel and perforation lorenzo S Kleb pneumo bacteremia staph epi bacteremia, ? clin significance Recent h/o Infection LBKA stump, C/S Klebsiella ESBL+ and Morganella Multiple Abx allergy - has tolerated Ertapenem and Cephalosporins in the past PVD Recent Staph hominis sepsis, has MV vegetation sp tx with vancomycvin Persistent FUngemia - C.parapsilosa; source: PORT (removed) - fungemia recurred after PORT removed - ? fungal endocarditis FLoaters - ro fungal endophthalmitis Intraabd abscesses, small : poly Hill: no clin significance New fever RECOMMENDATION cont fluconazol and micafungin repeat blood clx consider MELVA though given into fact that pt is not a candidate for cardiac surgery will defer the procedure for now WIll switch to AMB if cont to have fever and/or fungemia poly pang RN Roxana Arroyo MD Oct 30, 2016 23:33
[2016-10-31] VITALS (14 sets, daily range): BP systolic 96–144; BP diastolic 52–71; PULSE 87–116; RESP 21–25; TEMP 97.6–100.9; O2SAT 87–100
[2016-10-31] MEDS: HYDROmorphone HCL PF 1 MG/ML VIAL IV PRN ×3 (01:34→20:02)
[2016-10-31] MEDS: SODIUM CHLOR 0.9% 1000 ML INJ 1,000 ML IV SCH ×3 (02:00→22:00)
[2016-10-31] MEDS: OXYBUTYNIN CHLORIDE 5 MG TAB PO SCH ×3 (06:16→22:51)
[2016-10-31] MEDS: ACETAMINOPHEN 325 MG TAB PO PRN (06:16)
[2016-10-31 06:18] LABS: HEMATOCRIT 29.7 % (35.0-46.0); MEAN CELL VOLUME 85.1 FL (80.0-100.0); MEAN CORPUSCULAR HEMOGLOBIN 27.6 PG (27.0-34.0); MEAN CORPUSCULAR HGB CONC 32.4 % (32.0-36.0); PLATELET COUNT 273 TH/MM3 (150-450); RED BLOOD COUNT 3.49 MIL/MM3 (4.00-5.30); RED CELL DISTRIBUTION WIDTH 16.4 % (11.6-17.2); REVIEW FLAG FINAL; WHITE BLOOD COUNT 14.7 TH/MM3 (4.0-11.0)
[2016-10-31 06:40] LABS: BICARBONATE 31.5 MEQ/L (21.0-32.0); POTASSIUM 3.6 MEQ/L (3.5-5.1)
[2016-10-31] MEDS: INSULIN ASPART SUPPLEMENTAL SCALE SQ SCH ×4 (06:56→21:23)
[2016-10-31] MEDS: CHLORHEXIDINE 0.12% (ORAL KIT) 15 ML CUP MT SCH ×2 (08:00→20:00)
[2016-10-31] MEDS: SODIUM CHLORIDE 0.9% FLUSH 5 ML FLUSH IVF SCH ×2 (10:52→21:00)
[2016-10-31] MEDS: CALCIUM/VITAMIN D 250 MG/125 U TAB PO SCH ×2 (10:53→20:01)
[2016-10-31] MEDS: DULoxetine HCl DR 30 MG CAP PO SCH (10:53)
[2016-10-31] MEDS: CARVEDILOL 3.125 MG TAB PO SCH ×2 (10:53→20:01)
[2016-10-31] MEDS: CALCITRIOL 0.25 MCG CAP PO SCH (10:53)
[2016-10-31] MEDS: NYSTATIN 100,000 U/GM PWD 15 GM BTL TOPICAL SCH ×2 (10:53→21:00)
[2016-10-31] MEDS: FERROUS SULFATE 325 MG (65 MG ELEMENTAL IRON) TAB PO SCH (10:53)
[2016-10-31] MEDS: RIVAROXABAN 15 MG TAB PO SCH (10:53)
[2016-10-31] MEDS: ZINC SULFATE 220 MG CAP PO SCH (10:53)
[2016-10-31] MEDS: MICAFUNGIN INJ 150 MG in SODIUM CHLORIDE 0.9% INJ 100 ML IV SCH (10:56)
--- NOTE | 2016-10-31 12:25 | HHI.PR ---
Subjective Remarks Patient still having fevers. Still not eating or drinking much. Back on the non rebreather. She has no complaints. BOY RN. Objective Vitals Vital Signs Date Time Temp Pulse Resp B/P Pulse Ox O2 Delivery O2 Flow Rate FiO2 10/31/16 08:25 93 Partial Rebreather 15.00 10/31/16 07:45 91 Partial Non-Rebreather 15.00 10/31/16 07:00 91 Nasal Cannula 6.00 10/31/16 06:00 112 10/31/16 04:00 98.3 116 22 144/68 87 10/31/16 04:00 116 10/31/16 02:04 23 10/31/16 02:00 101 10/31/16 00:00 98.6 93 21 96/52 91 10/31/16 00:00 95 10/30/16 22:40 87 Nasal Cannula 6.00 10/30/16 22:00 94 10/30/16 21:10 16 10/30/16 20:00 97 10/30/16 20:00 98.1 97 24 142/65 86 10/30/16 19:00 84 Nasal Cannula 6.00 10/30/16 18:00 90 10/30/16 16:00 88 10/30/16 16:00 97.6 88 15 95/51 88 10/30/16 14:00 94 10/30/16 13:50 88 Nasal Cannula 6.00 I/O 10/30/16 10/30/16 10/30/16 10/31/16 10/31/16 10/31/16 07:00 15:00 23:00 07:00 15:00 23:00 Intake Total 1666 ml 1716 ml 1712 ml 1591 ml Output Total 2150 ml 2075 ml 750 ml 1550 ml Balance -484 ml -359 ml 962 ml 41 ml Intake Oral 150 ml 360 ml 250 ml 50 ml IV Total 741 ml 848 ml 952 ml 851 ml TPN/PPN 544 ml 508 ml 510 ml 690 ml Lipid 231 ml Output Urine Total 900 ml 400 ml 400 ml 500 ml Stool Total 1200 ml 1675 ml 300 ml 1000 ml Drainage Total 50 ml 0 ml 50 ml 50 ml Result Diagram: 10/31/16 0600 10/31/16 0600 Objective Remarks GENERAL: Chronically ill-appearing patient. CARDIOVASCULAR: Regular rate and rhythm without murmurs, gallops, or rubs. RESPIRATORY: Clear to auscultation. Breath sounds equal bilaterally. No wheezes , rales, or rhonchi. GASTROINTESTINAL: Abdomen soft, right-sided ostomy with green/brown liquid stool. Left-sided ostomy blood tinged. No rebound or guarding. wound VAC in midline MUSCULOSKELETAL: Left BKA healed. NEUROLOGICAL: Normal speech. Procedures Left stump debridement by Dr. Hill on 06/15/16 Bedside debridement of preperitoneal fat that was protruding from the abdominal fistula 09/01/16 central line placement Exploratory laparotomy, resection of the anterior abdominal wall fistula tract, resection of the transverse colon to small bowel anastomosis, lysis of adhesions of the small bowel with repair of two enterotomies, right-sided ileostomy, left-sided mucous fistula and partial removal of a ventral hernia mesh. Date of Insertion: Jun 20, 2016 Side: Left A/P Problem List: (1) Septic shock ICD Code: A41.9 Status: Acute (2) Acute hypoxemic respiratory failure ICD Code: J96.01 Status: Acute (3) Ischemic colitis ICD Code: K55.9 Status: Resolved (4) COPD (chronic obstructive pulmonary disease) ICD Code: J44.9 Status: Chronic (5) depression Status: Chronic (6) Peripheral neuropathy ICD Code: G62.9 Status: Chronic (7) Chronic diastolic (congestive) heart failure ICD Code: I50.32 Status: Chronic (8) ZIA (acute kidney injury) ICD Code: N17.9 Status: Resolved (9) emergent Ex Lap for ischemic bowel/perforation 10/08/16 Status: Acute (10) Acute blood loss anemia ICD Code: D62 Status: Acute Assessment and Plan 71 year old female who was admitted to the hospital in Oct 2015 due to ischemic bowel and subsequently underwent resection of large, small bowel and cholecystectomy. 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 Patient was discharged to SNF but returned to the hospital due to post surgical complications. She underwent left foot amputation and subsequently had a lot of post surgical complications requiring wound vac. Patient was on TPN. She went into septic shock. Eventually she underwent exploratory laparotomy with resection of the segment of the large bowel containing the anastomosis to the small bowel and the fistula, end ileostomy and mucous fistula colostomy creation and removal of segments of ventral hernia mesh that was placed at some point in the past. Septic shock Ischemic colitis s/p Ex lap, resection of anterior abdominal wall fistula tract, resection of transverse colon to small bowel anastomosis, right sided ileostomy, left sided mucous fistula and partial removal of a ventral hernia mesh 10/08/16 -Antibiotics DC per Infectious disease Fungemia. Persistent despite Fluconazole. Micafungin was added. Continue antifungals as per infectious disease and Dr. Hill. Continue high dose fluconazole x 4 wks from PORT removal and 1st neg BC Chest abscess cultures positive for nilson. Follow-up cultures. Echocardiogram cannot rule out vegetation. May need transesophageal echo, will defer to infectious disease. Continue antifungals as per infectious disease and Surgery. Repeat blood cultures still Positive for yeast. Repeat Blood cultures. COPD Acute hypoxemic respiratory failure - s/p extubation on 10/10/2016. - Continue bronchodilators, Incentive spirometry. - On O2 5 L. Respiratory status fluctuates. Monitor closely. Appear to be improving today. - Chest x-ray today with minimal parenchymal changes on the right base. Repeat chest x-ray in AM Acute blood loss anemia - s/p 4 units of PRBCs on 10/08/2016. - Hemoglobin continue stable. Monitor Acute renal insufficiency: Likely secondary to above processes and dehydration. - Improving. Continue IV fluid. Repeat labs in a.m. Diabetes mellitus. -On TPN. Continue sliding scale. Full code. Xarelto. Protonix IV. Discharge Planning Stable to transfer to floor where she can use non rebreather as needed. ?Manolo Pablo MD Oct 31, 2016 12:25
[2016-10-31] MEDS: FLUCONAZOLE 400 MG PREMIX BAG 200 ML IV SCH (16:18)
--- NOTE | 2016-10-31 18:06 | PD.CAR.PN ---
CVT Progress Note Subjective/Hospital Course: 70-year-old female with a complex medical and surgical history of peripheral vascular disease and multiple related problems presents now status post BK amputation about a month half ago. Patient went to long term and apparently braced herself on the stump several times in bed in hit it against either floor or the chair not quite clear. Part of the stump opened up and at this point patient is dehiscence of skin deeper tissue seemed to be still intact. 06/16/16 Patient underwent yesterday debridement of the stump with wound VAC placement. The dehiscence is fortunately superficial involving skin and muscle in this as been debrided successfully while the rest of the tissues of bleeding and are viable. Wound VAC has been placed Cultures have been reviewed and antibiotics can be adjusted by medicine as appropriate We'll continue current care and patient should be able to go to long term with a wound VAC by Sunday Patient's nutritional status is very poor with a low albumen and prealbumin level and therefore nutritional evaluation and recommendations are requested I believe the patient is not taking sufficient by mouth in the long term and may need supplemental enteral or parenteral feedings at this point 06/17/16 I reviewed the nutritional parameters and patient's prealbumin and transferrin levels a critically low indicating severe malnutrition. Patient's healing is impaired and so is the rehabilitative potential. After reviewing to nutritional recommendations once these are made, we will decide whether patient needs an Kpccjo-y-Dlrj placed for additional parenteral nutrition for short bowel syndrome Stump is nice and clean with minimal drainage from the wound VAC 06/19/16 Still awaiting nutritional consult and evaluation for patient has short gut syndrome and will probably need additional parenteral feedings. If so patient will need [id number]-[id number] placement for additional feedings Patient is taking excellent by mouth but despite that her nutritional status is poor and hence the healing issues Left BKA stump incision is clean and wound VAC is in place with minimal drainage and will need to be changed today Awaiting wound care to change the wound VAC. Infectious disease help is much appreciated 06/20/2016 Patient doing well at this time. Stump is clean and the wound VAC will be changed today Patient had [id number] placed by radiology for supplemental parenteral feedings. Grateful for the nutritional evaluation. Patient will be placed on TPN at about the 1500 non-protein calories a day split about 60-70% in glucose and about 30% in form of lipids Patient will likely have to be discharged on supplemental TPN in face of her short bowel syndrome 06/21/16 Patient is doing really well at this time She's taking good by mouth diet. 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 There is some granulation tissue which may eventually need to be debrided but at this point I would leave it alone. Stump wound VAC has been changed and this is clean and granulating nicely. Patient is currently on TPN which tolerating well. In face of her short bowel syndrome patient will need TPN after discharge from the hospital. Grateful to case management for making arrangements for the same 06/22/16 Vital signs stable patient is doing well. Her appetite has improved and patient is taking good by mouth diet and having regular bowel movements. The abdominal incision is completely healed and fistula has completely resolved. The BKA wound VAC has been changed and wound is clean and granulating nicely. Agihyf-t-Ovys is being used for additional parenteral feedings necessary and short bowel syndrome and patient will be discharged on TPN. 06/23/16 Patient underwent today change of the wound VAC and the wound is clean. Next with will be the last wound VAC change and after that I plan to take the patient to the OR for irrigation and closure of the wound by the middle of the next week. 06/24/16 Patient doing very well at this time she is in a good mood and taking by mouth diet well Unfortunately due to the short bowel syndrome she need supplemental TPN feedings at this time Stump is healed nicely there is a small scab anterior to it and this should allow to fall off on its own Once the arrangements are made for outpatient TPN patient will be able to be discharged Awaiting case management to make the arrangements for outpatient TPN 06/25/16 Vital signs stable Patient is awake and alert and oriented, taking by mouth diet very well Abdomen is soft and the colocutaneous fistula is completely closed The BKA stump has an eschar and a scab but I would leave this alone because underneath its healing nicely. Patient remains on TPN considering the short gut syndrome and will go home on the same Mild anemia is dilutional due to TPN administration and intravenous fluids and does not require therapy at this time 06/26/16 Vital signs stable Patient is awake and alert and oriented, taking by mouth diet very well Abdomen is soft and the colocutaneous fistula is completely closed The BKA stump has an eschar and a scab but I would leave this alone because underneath its healing nicely. Patient remains on TPN considering the short gut syndrome and will go home on the same Mild anemia is dilutional due to TPN administration and intravenous fluids and does not require therapy at this time 06/27/16 Wound VAC has been removed by me and the the entire stump is healed very nicely except a small area but an inch length at the very lateral portion of the incision were we going to put a very small wound VAC on for another week or so. Patient can transfer to rehabilitation at any time as long as she can get intravenous TPN in the process 06/28/16 Wound VAC has been removed by me and the the entire stump is healed very nicely except a small area but an inch length at the very lateral portion of the incision were we going to put a very small wound VAC on for another week or so. 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 I understand the difficulty this creates for case management to find her such an arrangement 06/29/16 Patient doing really well at this time taking good by mouth but due to the short bowel syndrome will require long-term TPN Stump is healing really nicely and the probably after this week we will remove the wound VAC and simply place wet-to-dry dressing and allow this to heal 06/30/16 Patient is doing well tolerates diet. Abdomen is soft with active bowel sounds Incisions are clean and dry Wound VAC last change will be next week and after that we going to remove the wound VAC and continue wet-to-dry dressing Stump is healing really nicely Due to TPN and other issues placement remains a problem 07/01/16 Abdomen soft and active bowel sounds Tolerates diet well Stump is clean and dry and I'll remove the wound VAC on Sunday after that patient will just be on wet-to-dry dressings until the stump heels Arrangements for discharge to difficult due to long-term TPN needs 07/03/16 Vital signs stable Stump is clean and wound VAC after next removal won't need to be applied again Patient will remain long-term on TPN and I'm waiting for case management to make discharge arrangements Will [facility] medicine kindly if patient can be transferred to medicine service at this time 07/14/16 Patient is a placement issue apparently is still in the hospital The left BKA stump is healed nicely except for very small air about 1 cm which is granulating in on the lateral aspect of the stump Apparently the enterocutaneous fistula was close for about month and a half and opened up 2 days ago draining some stool It should be noted that the bowel is quite close to the skin and patient is very thin and malnourished so it is not surprising that fistula opens and closes sporadically. With enteral and parenteral nutrition that should close but clearly patient is very frail and it could open up any time Nothing to add to care at this time 07/26/16 Discussed the patient with medical attending. She has systemic cutaneous herpes zoster and is on appropriate medications The drainage from anterior abdominal wall is very minimal however irritating to the skin of the abdominal wall in face of herpes and the nature of intestinal fluid. Just putting dressings will only worsen the situation so patient should be treated with the stoma and coverage of the skin. Unfortunately the colostomy material will not stick to the skin and the contents will leak underneath it. At point is best solution was due to apply Silvadene ointment daily and then dressing Patient's appetite is very poor sure refuses food and she remains on TPN although her GI tract is completely patent Her prognosis in general is for due to malnutrition short bowel syndrome and immune failure. 09/01/16 Patient seen at [facility]. Patient has tremendously improved in the last month or so. The rash she had has since disappeared I am not sure this was a herpetic rash or perhaps caused by zinc or selenium deficiency At this point patient is eating well and she is again about 15 pounds. Her short bowel syndrome as being managed adequately with improvement of by mouth intake and modification of the diet Abdomen is soft with active bowel sounds and the fistula has closed There is small amount of preperitoneal fat extruding from the abdomen incision. I debrided this at the bedside In the worse case scenario patient would have to go to the operating room to have this cauterized away and reclosed but I would certainly like to avoid this in this lady was finally recovering nicely 11/20/16 Last night patient was straining when going to bathroom and enterocutaneous fistula opened up again Patient is now draining stool over the last 24 hours. 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 She underwent several surgeries and it is a miracle that patient has survived all this. The fistulous tract has now opened and closed about 5 times since September last year when patient's first came and this is now another instance of the same. As far as the fistulous tract is concerned this patient is not a candidate for an open surgery due to malnutrition, short bowel syndrome in the anatomic considerations. Going into this abdomen with resultant multiple fistulas, damage to the remaining small bowel and likely of the patient Therefore the appropriate way to manage this as conservatively filled the fistula tracts closes again Physical examination reveals skin inferior to the fistula to be starting to get red again and irritated although it was nicely healed as stated in above note It should be noted that this is distal small bowel content and therefore fairly caustic so meticulous care has to be taken not to allow this to be in contact with the skin On my arrival one part of the fistula in the midline is covered with a colostomy bag while the stool is freely draining all over the patient's abdomen between the legs and on the bed I went into the room ostomy nurse to come with me and removed personally everything cleaned patient up with nursing assistance I said down with the gatehouse attendant and the nurse and explained in detail how this should be covered and how the stoma should be structured in order to protect the skin Apparently large pieces of stoma skin adhesive material are not available here and let to be brought from [facility]. The same large pieces were used when patient first came to [place] and care was described in orders At this point meticulous care has to be taken in order to prevent skin damage and free leakage It is also imperative that the wound care gets involved in management of this patient 10/30/16 Patient had the spike a fever today to 101.8 White count 16,000 Abdomen is soft with active bowel sounds and ileostomy is working very well Bilateral breath sounds and no rhonchi or rales Wound VAC has been changed today and I'll look to the wound leg really looks nice and healing very nicely with good granulation tissue No signs of dehiscence I believe the fever spikes are part of the fungemia and unfortunately 30-50% of patients will develop systemic fungemia in this setting will succumb to the same despite maximum therapy Patient remains on micafungin Continue care 10/31/16 Abdomen is soft and active bowel sounds and incision is nice and granulating underneath the wound VAC Ileostomy working fine White count is coming down and patient hasn't had any fever spikes since placed on Diflucan and micafungin Unfortunately patient refuses to eat and also refuses to get out of bed Physical therapy and occupational therapy of trying to mobilize the patient but she will not cooperate She also refuses to take by mouth diet but drinks high caloric supplements at least Respiratory-gillette patient is doing well throughout the day and then 2 in the evening her sats started dropping to again improve later on Will order ABGs and perhaps do a CAT scan of the chest to assess for any effusions or any other possible causes for this Again patient is very ill with fungemia which carries high mortality and ICU patient's especially with immunosuppression accompanying the clinical picture Objective: Vital Signs Date Time Temp Pulse Resp B/P Pulse Ox O2 Delivery O2 Flow Rate FiO2 10/31/16 16:00 98.6 89 24 128/71 100 10/31/16 16:00 89 10/31/16 14:00 88 10/31/16 12:00 97.6 98 25 108/55 95 10/31/16 12:00 98 10/31/16 10:00 101 10/31/16 08:25 93 Partial Rebreather 15.00 10/31/16 08:00 112 10/31/16 08:00 100.9 111 22 119/64 94 10/31/16 07:45 91 Partial Non-Rebreather 15.00 10/31/16 07:00 91 Nasal Cannula 6.00 10/31/16 06:00 112 10/31/16 04:00 98.3 116 22 144/68 87 10/31/16 04:00 116 10/31/16 02:04 23 10/31/16 02:00 101 10/31/16 00:00 98.6 93 21 96/52 91 10/31/16 00:00 95 10/30/16 22:40 87 Nasal Cannula 6.00 10/30/16 22:00 94 10/30/16 21:10 16 10/30/16 20:00 97 10/30/16 20:00 98.1 97 24 142/65 86 10/30/16 19:00 84 Nasal Cannula 6.00 Result Diagram: 10/31/1659910/31/16 06 Janice Olvera MD Oct 31, 2016 18:06
[2016-10-31 18:30] LABS: BLOOD GAS BASE EXCESS 7.1 mmol/L (-2-2); BLOOD GAS CARBOXYHEMOGLOBIN 1.2 % (0-4); BLOOD GAS HCO3 31 mmol/L (22-26); BLOOD GAS O2 HGB SATURATION 93 % (90-100); BLOOD GAS OXYGEN CONTENT 12.7 Vol % (12.0-20.0); BLOOD GAS PCO2 43 mmHg (38-42); BLOOD GAS PO2 80 mmHg (61-120); BLOOD GAS TOTAL HGB 9.6 G/DL (12.0-16.0); CRITICAL VALUE NO; DRAW SITE RT RADIAL; LITER FLOW 15 L/M; NUMBER OF ARTERIAL PUNCTURES 1; STAT NO; TEMP CORR TO 98.6; ULNAR PULSE Y
[2016-10-31] MEDS: CLINIMIX E 5/25 2000 mL- >42 mls/hr IV-CENTRAL SCH ×3 (20:00)
[2016-10-31] MEDS: MIRTAZAPINE ODT 15 MG TAB PO SCH (21:07)
--- NOTE | 2016-10-31 22:36 | HHI.IDPN ---
Subjective Subjective Remarks Pt seen earlier today delayed entry low grade fever and more + blood clx with C.parapsilosa cont to co abdominal pain poor po intake on NRB Antibiotics fluconazol micafungin - started Lines Port: removed Past Medical History 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 Vital Signs Date Time Temp Pulse Resp B/P Pulse Ox O2 Delivery O2 Flow Rate FiO2 10/31/16 20:26 97 Partial Rebreather 12.00 10/31/16 18:00 90 10/31/16 16:00 98.6 89 24 128/71 100 10/31/16 16:00 89 10/31/16 14:00 88 10/31/16 12:00 97.6 98 25 108/55 95 10/31/16 12:00 98 10/31/16 10:00 101 10/31/16 08:25 93 Partial Rebreather 15.00 10/31/16 08:00 112 10/31/16 08:00 100.9 111 22 119/64 94 10/31/16 07:45 91 Partial Non-Rebreather 15.00 10/31/16 07:00 91 Nasal Cannula 6.00 10/31/16 06:00 112 10/31/16 04:00 98.3 116 22 144/68 87 10/31/16 04:00 116 10/31/16 02:04 23 10/31/16 02:00 101 10/31/16 00:00 98.6 93 21 96/52 91 10/31/16 00:00 95 10/30/16 22:40 87 Nasal Cannula 6.00 10/30/16 10/30/16 10/31/16 15:00 23:00 07:00 Intake Total 1716 ml 1712 ml 1591 ml Output Total 2075 ml 750 ml 1550 ml Balance -359 ml 962 ml 41 ml Intake Oral 360 ml 250 ml 50 ml IV Total 848 ml 952 ml 851 ml TPN/PPN 508 ml 510 ml 690 ml Output Urine Total 400 ml 400 ml 500 ml Stool Total 1675 ml 300 ml 1000 ml Drainage Total 0 ml 50 ml 50 ml . Laboratory Tests Test 10/30/16 10/31/16 06:00 06:00 White Blood Count 16.3 TH/MM3 14.7 TH/MM3 Red Blood Count 3.59 MIL/MM3 3.49 MIL/MM3 Hemoglobin 10.0 GM/DL 9.6 GM/DL Hematocrit 30.5 % 29.7 % Mean Corpuscular Volume 85.0 FL 85.1 FL Mean Corpuscular Hemoglobin 28.0 PG 27.6 PG Mean Corpuscular Hemoglobin 32.9 % 32.4 % Concent Red Cell Distribution Width 16.3 % 16.4 % Platelet Count 268 TH/MM3 273 TH/MM3 Mean Platelet Volume 9.6 FL 9.6 FL Laboratory Tests Test 10/30/16 10/31/16 06:00 06:00 Sodium Level 135 MEQ/L 137 MEQ/L Potassium Level 3.5 MEQ/L 3.6 MEQ/L Chloride Level 97 MEQ/L 100 MEQ/L Carbon Dioxide Level 33.2 MEQ/L 31.5 MEQ/L Anion Gap 5 MEQ/L 6 MEQ/L Blood Urea Nitrogen 30 MG/DL 26 MG/DL Creatinine 0.96 MG/DL 0.88 MG/DL Estimat Glomerular Filtration 57 ML/MIN 64 ML/MIN Rate Random Glucose 271 MG/DL 240 MG/DL Calcium Level 9.2 MG/DL 9.3 MG/DL Microbiology Date/Time Procedure Status Source Growth 10/31/16 03:35 Aerobic Blood Culture Received Blood Peripheral Pending 10/31/16 03:35 Anaerobic Blood Culture Received Blood Peripheral Pending 10/31/16 03:44 Aerobic Blood Culture Received Blood Peripheral Pending 10/31/16 03:44 Anaerobic Blood Culture Received Blood Peripheral Pending Imaging Last Impressions Chest X-Ray 10/29/16 0600 Signed Impressions: Service Date/Time: Saturday, October 29, 2016 04:52 - CONCLUSION: Persistent patchy infiltrates in the right infrahilar region. Kevan Davis MD Abdomen/Pelvis CT 10/19/16 0000 Signed Impressions: Service Date/Time: September 15:10 - CONCLUSION: 1. There are 2 small rim-enhancing fluid collections in the right mid abdomen adjacent to the distal ileum that extends into the ileostomy. These measure 2.6 x 1.3 cm and 2.1 x 1.6 cm. These could represent infected fluid collections but are too small to place a drainage catheter. There is an additional small subcapsular fluid collection along the anterior left lobe of the liver. 2. Additionally, there is wall thickening of the distal ileal loops along with marked mesenteric edema. 3. There is a small volume of free fluid in the left upper quadrant around the spleen and in the pelvis. 4. There is a new small left pleural effusion with compressive atelectasis and right lower lobe volume loss versus airspace consolidation. Calixto Uriostegui MD Liver Ultrasound 07/12/16 0000 Signed Impressions: Service Date/Time: Tuesday, July 12, 2016 18:07 - CONCLUSION: 1. No acute abnormality demonstrated. 2. Heterogeneous liver without measurable mass. 3. Small and heterogeneous spleen without a measurable mass. 4. Cortical thinning and scarring of the right kidney. 5. Previous cholecystectomy. Calixto Woodruff MD Chest CT 07/09/16 0000 Signed Impressions: Service Date/Time: Saturday, July 09, 2016 14:43 - CONCLUSION: 1. Small right pleural effusion and minimal right basilar consolidation. 2. 6 mm left basilar nodule. Followup CT chest 6 months recommended. Florian Pepper MD Lower Extremity Ultrasound 06/25/16 0000 Signed Impressions: Service Date/Time: Saturday, June 25, 2016 15:56 - CONCLUSION: Negative exam with no evidence of deep venous thrombosis. Soft tissue edema. Mike Leija MD Port Line Insertion 06/20/16 0000 Signed Impressions: Service Date/Time: Monday, June 20, 2016 08:53 - CONCLUSION: Uncomplicated ultrasound and fluoroscopic guided implanted central venous port catheter placement as described in detail above. An 8 [employer] port was placed. Kevan Salgado Jr., MD Physical Exam CONSTITUTIONAL/GENERAL: fully awake and alert Conversant TUBES/LINES/DRAINS: PORT incision is dry and clean at previous PORT site, no skin changes SKIN: No jaundice, rashes, or lesions. Skin temperature appropriate. Not diaphoretic. HEAD: Atraumatic. Normocephalic. EYES: Pupils equal and round and reactive. Extraocular motions intact. No scleral icterus. No injection or drainage. Fundi not examined. ENT: Oral mucosae without visible erythema, exudates, masses, or lesions. CARDIOVASCULAR: Regular rate and rhythm without murmurs, gallops, or rubs. No JVD. RESPIRATORY/CHEST: Symmetric, unlabored respirations. Clear to auscultation. Breath sounds equal bilaterally. No wheezes, rales, or rhonchi. GASTROINTESTINAL: Abdomen with VAC dressing in place serosang dc minimally distended quite tender to palpation + BS Mucoid fistula in LLQ with small amount of dark blood, appears old GENITOURINARY: Without palpable bladder distension. Hamlin catheter in place with clear yellow urine MUSCULOSKELETAL: Extremities without clubbing, cyanosis, trace edema. NEUROLOGICAL: awake alert conversant Assessment & Plan Remarks IMPRESSION Ischemic bowel, perforation sp emergent resection 10/08 Sepsis 2/2 ischemic bowel and perforation lorenzo S Kleb pneumo bacteremia staph epi bacteremia, ? clin significance Recent h/o Infection LBKA stump, C/S Klebsiella ESBL+ and Morganella Multiple Abx allergy - has tolerated Ertapenem and Cephalosporins in the past PVD Recent Staph hominis sepsis, has MV vegetation sp tx with vancomycvin Persistent FUngemia - C.parapsilosa; source: PORT (removed) - fungemia recurred after PORT removed - ? fungal endocarditis FLoaters - ro fungal endophthalmitis Intraabd abscesses, small : poly Hill: no clin significance New fever ? persistent fungemia ? endocarditis - seeded line? RECOMMENDATION cont fluconazol and micafungin repeat blood clx consider MELVA though given into fact that pt is not a candidate for cardiac surgery will defer the procedure for now WIll switch to AMB if cont to have fever and/or fungemia Remove R SCV central line Roxana Anthony RN, MD Oct 31, 2016 22:36
[2016-11-01] VITALS (15 sets, daily range): BP systolic 124–155; BP diastolic 60–73; PULSE 97–113; RESP 20–25; TEMP 98.1–100.3; O2SAT 92–98
[2016-11-01] MEDS: HYDROmorphone HCL PF 1 MG/ML VIAL IV PRN ×4 (05:23→19:44)
[2016-11-01] MEDS: OXYBUTYNIN CHLORIDE 5 MG TAB PO SCH ×3 (05:24→23:32)
[2016-11-01 05:25] LABS: HEMATOCRIT 28.8 % (35.0-46.0); MEAN CELL VOLUME 85.6 FL (80.0-100.0); MEAN CORPUSCULAR HEMOGLOBIN 27.7 PG (27.0-34.0); MEAN CORPUSCULAR HGB CONC 32.4 % (32.0-36.0); PLATELET COUNT 267 TH/MM3 (150-450); RED BLOOD COUNT 3.37 MIL/MM3 (4.00-5.30); RED CELL DISTRIBUTION WIDTH 16.7 % (11.6-17.2); REVIEW FLAG FINAL; WHITE BLOOD COUNT 12.7 TH/MM3 (4.0-11.0)
--- NOTE | 2016-11-01 05:34 | RADRPT ---
EXAM DATE/TIME: 11/01/2016 03:50 [place] COMPARISON: CHEST SINGLE AP, October 29, 2016, 4:52. INDICATIONS : Sepsis, fever, cough MEDICAL HISTORY : Unknown SURGICAL HISTORY : Unknown ENCOUNTER: Initial ACUITY: 3 days PAIN SCORE: Non-responsive. LOCATION: Bilateral chest FINDINGS: A single view of the chest demonstrates cardiomegaly with bibasilar consolidation greater left lower lobe. Minimal patchy density left upper lobe. Right subclavian central line in stable position. The c ardiomediastinal contours are unremarkable. Osseous structures are intact. Surgical clips in right a xilla. CONCLUSION: 1. Interval development of bibasilar consolidation and minimal patchy density left upper lobe, likely pneumonia. 2. Cardiomegaly. Florian Pepper MD on November 01, 2016 at 5:31 Board Certified Radiologist. This report was verified electronically.
[2016-11-01 05:47] LABS: BICARBONATE 31.6 MEQ/L (21.0-32.0); POTASSIUM 3.2 MEQ/L (3.5-5.1)
[2016-11-01] MEDS: INSULIN ASPART SUPPLEMENTAL SCALE SQ SCH ×4 (06:49→21:00)
[2016-11-01] MEDS: CHLORHEXIDINE 0.12% (ORAL KIT) 15 ML CUP MT SCH ×2 (07:47→20:00)
[2016-11-01] MEDS: CARVEDILOL 3.125 MG TAB PO SCH ×2 (08:14→21:02)
[2016-11-01] MEDS: ZINC SULFATE 220 MG CAP PO SCH (08:14)
[2016-11-01] MEDS: DULoxetine HCl DR 30 MG CAP PO SCH (08:14)
[2016-11-01] MEDS: NYSTATIN 100,000 U/GM PWD 15 GM BTL TOPICAL SCH ×2 (08:14→21:00)
[2016-11-01] MEDS: CALCIUM/VITAMIN D 250 MG/125 U TAB PO SCH ×2 (08:14→21:02)
[2016-11-01] MEDS: CALCITRIOL 0.25 MCG CAP PO SCH (08:14)
[2016-11-01] MEDS: RIVAROXABAN 15 MG TAB PO SCH (08:14)
[2016-11-01] MEDS: SODIUM CHLOR 0.9% 1000 ML INJ 1,000 ML IV SCH ×2 (08:14→18:33)
[2016-11-01] MEDS: SODIUM CHLORIDE 0.9% FLUSH 5 ML FLUSH IVF SCH ×2 (08:15→21:00)
[2016-11-01] MEDS: FERROUS SULFATE 325 MG (65 MG ELEMENTAL IRON) TAB PO SCH (08:15)
[2016-11-01] MEDS: MICAFUNGIN INJ 150 MG in SODIUM CHLORIDE 0.9% INJ 100 ML IV SCH (10:53)
[2016-11-01] MEDS ORDERED: Vancomycin Consult Pharmacy 1 EA OTHER SCH (11:45)
--- NOTE | 2016-11-01 12:08 | HHI.PR ---
Subjective Remarks Patient complained of chills. Chest X-ray is worse with evidence of pneumonia. Occasional cough. Objective Vitals Vital Signs Date Time Temp Pulse Resp B/P Pulse Ox O2 Delivery O2 Flow Rate FiO2 11/01/16 10:00 101 11/01/16 08:13 94 Partial Rebreather 12.00 11/01/16 08:00 99.1 101 20 124/60 98 11/01/16 08:00 101 11/01/16 07:00 94 Partial Non-Rebreather 15.00 11/01/16 06:00 101 11/01/16 05:53 20 11/01/16 04:00 98.4 99 20 133/61 95 11/01/16 04:00 98 11/01/16 02:00 98 11/01/16 00:00 98.6 98 21 150/70 95 11/01/16 00:00 98 10/31/16 22:00 87 10/31/16 20:26 97 Partial Rebreather 12.00 10/31/16 20:00 89 10/31/16 20:00 98.4 89 22 141/66 95 10/31/16 20:00 96 Partial Non-Rebreather 15.00 10/31/16 18:00 90 10/31/16 16:00 98.6 89 24 128/71 100 10/31/16 16:00 89 10/31/16 14:00 88 I/O 10/31/16 10/31/16 10/31/16 11/01/16 11/01/16 11/01/16 06:59 14:59 22:59 06:59 14:59 22:59 Intake Total 1591 ml 1917 ml 1163 ml 2724 ml Output Total 1550 ml 2100 ml 1650 ml 4075 ml Balance 41 ml -183 ml -487 ml -1351 ml Intake Oral 50 ml 240 ml IV Total 851 ml 1063 ml 758 ml 1820 ml TPN/PPN 690 ml 614 ml 405 ml 904 ml Output Urine Total 500 ml 425 ml 400 ml 1050 ml Stool Total 1000 ml 1650 ml 1200 ml 3000 ml Drainage Total 50 ml 25 ml 50 ml 25 ml Result Diagram: 11/01/16 0500 11/01/16 0500 Objective Remarks GENERAL: Chronically ill-appearing patient. CARDIOVASCULAR: Regular rate and rhythm without murmurs, gallops, or rubs. RESPIRATORY: Diminished breath sounds at the bases. Faint rhonchi diffusely. GASTROINTESTINAL: Abdomen soft, right-sided ostomy with green/brown liquid stool. Left-sided ostomy with blood. No rebound or guarding. wound VAC in midline MUSCULOSKELETAL: Left BKA healed. NEUROLOGICAL: Normal speech. Procedures Left stump debridement by Dr. Hill on 06/15/16 Bedside debridement of preperitoneal fat that was protruding from the abdominal fistula 09/01/16 central line placement Exploratory laparotomy, resection of the anterior abdominal wall fistula tract, resection of the transverse colon to small bowel anastomosis, lysis of adhesions of the small bowel with repair of two enterotomies, right-sided ileostomy, left-sided mucous fistula and partial removal of a ventral hernia mesh. Date of Insertion: Jun 20, 2016 Side: Left A/P Problem List: (1) Septic shock ICD Code: A41.9 Status: Acute (2) Acute hypoxemic respiratory failure ICD Code: J96.01 Status: Acute (3) Ischemic colitis ICD Code: K55.9 Status: Resolved (4) COPD (chronic obstructive pulmonary disease) ICD Code: J44.9 Status: Chronic (5) depression Status: Chronic (6) Peripheral neuropathy ICD Code: G62.9 Status: Chronic (7) Chronic diastolic (congestive) heart failure ICD Code: I50.32 Status: Chronic (8) ZIA (acute kidney injury) ICD Code: N17.9 Status: Resolved (9) emergent Ex Lap for ischemic bowel/perforation 10/08/16 Status: Acute (10) Acute blood loss anemia ICD Code: D62 Status: Acute Assessment and Plan 71 year old female who was admitted to the hospital in Oct 2015 due to ischemic bowel and subsequently underwent resection of large, small bowel and cholecystectomy. 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 Patient was discharged to SNF but returned to the hospital due to post surgical complications. She underwent left foot amputation and subsequently had a lot of post surgical complications requiring wound vac. Patient was on TPN. She went into septic shock. Eventually she underwent exploratory laparotomy with resection of the segment of the large bowel containing the anastomosis to the small bowel and the fistula, end ileostomy and mucous fistula colostomy creation and removal of segments of ventral hernia mesh that was placed at some point in the past. Septic shock Ischemic colitis s/p Ex lap, resection of anterior abdominal wall fistula tract, resection of transverse colon to small bowel anastomosis, right sided ileostomy, left sided mucous fistula and partial removal of a ventral hernia mesh 10/08/16 -Antibiotics DC per Infectious disease Fungemia. Persistent despite Fluconazole. Micafungin was added. Continue antifungals as per infectious disease and Dr. Hill. Continue high dose fluconazole Chest abscess cultures positive for nilson. Follow-up cultures. Echocardiogram cannot rule out vegetation. Continue antifungals as per infectious disease and Surgery. Persistent fungemia. Repeat Blood cultures pending. 11/01/16: Pneumonia. Chest x-ray is worse with evidence of pneumonia. DW ID Dr. Arroyo, unclear if fungemia is the cause vs other organism. Start on Vancomycin and Azactam. Obtain sputum culture. Repeat Echo to evaluate for vegetations. COPD Acute hypoxemic respiratory failure - s/p extubation on 10/10/2016. - Continue bronchodilators, Incentive spirometry. - On O2 5 L. Respiratory status fluctuates. Monitor closely. Appear to be improving today. - Chest x-ray today worse with evidence of pneumonia. Treat with Vancomycin and Azactam per ID as above. Acute blood loss anemia - s/p 4 units of PRBCs on 10/08/2016. - Hemoglobin continue stable. Monitor Diabetes mellitus. -On TPN. Continue sliding scale. Full code. Xarelto. Protonix IV. Discharge Planning Patient still require a non rebreather mask with worsening pneumonia. Still at risk for further respiratory decline. Keep in the ICU for now. Manolo Holm MD Nov 01, 2016 12:08
[2016-11-01 12:46] LABS: INDIRECT BILIRUBIN 0.5 MG/DL (0.0-0.8); TOTAL BILIRUBIN ADULT 1.8 MG/DL (0.2-1.0)
[2016-11-01] MEDS: AZTREONAM INJ 1,000 MG in SODIUM CHLORIDE 0.9% INJ 100 ML IV SCH ×2 (12:49→19:43)
[2016-11-01] MEDS ORDERED: VANCOMYCIN INJ 1,000 MG in SODIUM CHLOR 0.9% 250 ML INJ 250 ML IV ONE (13:00)
[2016-11-01] MEDS ORDERED: DIATRIZOATE MEGLUM/DIATRIZOATE SOD 9 ML CUP PO ONE (14:15)
--- NOTE | 2016-11-01 14:26 | PD.CAR.PN ---
CVT Progress Note Subjective/Hospital Course: 70-year-old female with a complex medical and surgical history of peripheral vascular disease and multiple related problems presents now status post BK amputation about a month half ago. [facility] and apparently braced herself on the stump several times in bed in hit it against either floor or the chair not quite clear. Part of the stump opened up and at this point patient is dehiscence of skin deeper tissue seemed to be still intact. 06/16/16 Patient underwent yesterday debridement of the stump with wound VAC placement. The dehiscence is fortunately superficial involving skin and muscle in this as been debrided successfully while the rest of the tissues of bleeding and are viable. Wound VAC has been placed Cultures have been reviewed and antibiotics can be adjusted by medicine as appropriate We'll continue current care and patient should be able to go to penitentiary with a wound VAC by Sunday Patient's nutritional status is very poor with a low albumen and prealbumin level and therefore nutritional evaluation and recommendations are requested I believe the patient is not taking sufficient by mouth in the penitentiary and may need supplemental enteral or parenteral feedings at this point 06/17/16 I reviewed the nutritional parameters and patient's prealbumin and transferrin levels a critically low indicating severe malnutrition. Patient's healing is impaired and so is the rehabilitative potential. After reviewing to nutritional recommendations once these are made, we will decide whether patient needs an [id number] placed for additional parenteral nutrition for short bowel syndrome Stump is nice and clean with minimal drainage from the wound VAC 06/19/16 Still awaiting nutritional consult and evaluation for patient has short gut syndrome and will probably need additional parenteral feedings. If so patient will need [id number] placement for additional feedings Patient is taking excellent by mouth but despite that her nutritional status is poor and hence the healing issues Left BKA stump incision is clean and wound VAC is in place with minimal drainage and will need to be changed today Awaiting wound care to change the wound VAC. Infectious disease help is much appreciated 06/20/2016 Patient doing well at this time. Stump is clean and the wound VAC will be changed today Patient had [id number] placed by radiology for supplemental parenteral feedings. Grateful for the nutritional evaluation. Patient will be placed on TPN at about the 1500 non-protein calories a day split about 60-70% in glucose and about 30% in form of lipids Patient will likely have to be discharged on supplemental TPN in face of her short bowel syndrome 06/21/16 Patient is doing really well at this time She's taking good by mouth diet. 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 There is some granulation tissue which may eventually need to be debrided but at this point I would leave it alone. Stump wound VAC has been changed and this is clean and granulating nicely. Patient is currently on TPN which tolerating well. In face of her short bowel syndrome patient will need TPN after discharge from the hospital. Grateful to case management for making arrangements for the same 06/22/16 Vital signs stable patient is doing well. Her appetite has improved and patient is taking good by mouth diet and having regular bowel movements. The abdominal incision is completely healed and fistula has completely resolved. The BKA wound VAC has been changed and wound is clean and granulating nicely. Jkkqjk-[id number] is being used for additional parenteral feedings necessary and short bowel syndrome and patient will be discharged on TPN. 06/23/16 Patient underwent today change of the wound VAC and the wound is clean. Next with will be the last wound VAC change and after that I plan to take the patient to the OR for irrigation and closure of the wound by the middle of the next week. 06/24/16 Patient doing very well at this time she is in a good mood and taking by mouth diet well Unfortunately due to the short bowel syndrome she need supplemental TPN feedings at this time Stump is healed nicely there is a small scab anterior to it and this should allow to fall off on its own Once the arrangements are made for outpatient TPN patient will be able to be discharged Awaiting case management to make the arrangements for outpatient TPN 06/25/16 Vital signs stable Patient is awake and alert and oriented, taking by mouth diet very well Abdomen is soft and the colocutaneous fistula is completely closed The BKA stump has an eschar and a scab but I would leave this alone because underneath its healing nicely. Patient remains on TPN considering the short gut syndrome and will go home on the same Mild anemia is dilutional due to TPN administration and intravenous fluids and does not require therapy at this time 06/26/16 Vital signs stable Patient is awake and alert and oriented, taking by mouth diet very well Abdomen is soft and the colocutaneous fistula is completely closed The BKA stump has an eschar and a scab but I would leave this alone because underneath its healing nicely. Patient remains on TPN considering the short gut syndrome and will go home on the same Mild anemia is dilutional due to TPN administration and intravenous fluids and does not require therapy at this time 06/27/16 Wound VAC has been removed by me and the the entire stump is healed very nicely except a small area but an inch length at the very lateral portion of the incision were we going to put a very small wound VAC on for another week or so. Patient can transfer to rehabilitation at any time as long as she can get intravenous TPN in the process 06/28/16 Wound VAC has been removed by me and the the entire stump is healed very nicely except a small area but an inch length at the very lateral portion of the incision were we going to put a very small wound VAC on for another week or so. Patient can transfer to rehabilitation at any time as long as she can get intravenous TPN Patient will need exterminator helper TPN considering short gut syndrome and this can be done either in a penitentiary or at home I suspect this will be about a six-month process and after that patient may not need additional feedings if we can get her in a reasonable nutritional status in the meantime. I understand the difficulty this creates for case management to find her such an arrangement 06/29/16 Patient doing really well at this time taking good by mouth but due to the short bowel syndrome will require long-term TPN Stump is healing really nicely and the probably after this week we will remove the wound VAC and simply place wet-to-dry dressing and allow this to heal 06/30/16 Patient is doing well tolerates diet. Abdomen is soft with active bowel sounds Incisions are clean and dry Wound VAC last change will be next week and after that we going to remove the wound VAC and continue wet-to-dry dressing Stump is healing really nicely Due to TPN and other issues placement remains a problem 07/01/16 Abdomen soft and active bowel sounds Tolerates diet well Stump is clean and dry and I'll remove the wound VAC on Sunday after that patient will just be on wet-to-dry dressings until the stump heels Arrangements for discharge to difficult due to long-term TPN needs 07/03/16 Vital signs stable Stump is clean and wound VAC after next removal won't need to be applied again Patient will remain long-term on TPN and I'm waiting for case management to make discharge arrangements Will [facility] medicine kindly if patient can be transferred to medicine service at this time 07/14/16 Patient is a placement issue apparently is still in the hospital The left BKA stump is healed nicely except for very small air about 1 cm which is granulating in on the lateral aspect of the stump Apparently the enterocutaneous fistula was close for about month and a half and opened up 2 days ago draining some stool It should be noted that the bowel is quite close to the skin and patient is very thin and malnourished so it is not surprising that fistula opens and closes sporadically. With enteral and parenteral nutrition that should close but clearly patient is very frail and it could open up any time Nothing to add to care at this time 07/26/16 Discussed the patient with medical attending. She has systemic cutaneous herpes zoster and is on appropriate medications The drainage from anterior abdominal wall is very minimal however irritating to the skin of the abdominal wall in face of herpes and the nature of intestinal fluid. Just putting dressings will only worsen the situation so patient should be treated with the stoma and coverage of the skin. Unfortunately the colostomy material will not stick to the skin and the contents will leak underneath it. At point is best solution was due to apply Silvadene ointment daily and then dressing Patient's appetite is very poor sure refuses food and she remains on TPN although her GI tract is completely patent Her prognosis in general is for due to malnutrition short bowel syndrome and immune failure. 09/01/16 Patient seen at [facility]. Patient has tremendously improved in the last month or so. The rash she had has since disappeared I am not sure this was a herpetic rash or perhaps caused by zinc or selenium deficiency At this point patient is eating well and she is again about 15 pounds. Her short bowel syndrome as being managed adequately with improvement of by mouth intake and modification of the diet Abdomen is soft with active bowel sounds and the fistula has closed There is small amount of preperitoneal fat extruding from the abdomen incision. I debrided this at the bedside In the worse case scenario patient would have to go to the operating room to have this cauterized away and reclosed but I would certainly like to avoid this in this lady was finally recovering nicely 11/20/16 Last night patient was straining when going to bathroom and enterocutaneous fistula opened up again Patient is now draining stool over the last 24 hours. 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 She underwent several surgeries and it is a miracle that patient has survived all this. The fistulous tract has now opened and closed about 5 times since September last year when patient's first came and this is now another instance of the same. As far as the fistulous tract is concerned this patient is not a candidate for an open surgery due to malnutrition, short bowel syndrome in the anatomic considerations. Going into this abdomen with resultant multiple fistulas, damage to the remaining small bowel and likely of the patient Therefore the appropriate way to manage this as conservatively filled the fistula tracts closes again Physical examination reveals skin inferior to the fistula to be starting to get red again and irritated although it was nicely healed as stated in above note It should be noted that this is distal small bowel content and therefore fairly caustic so meticulous care has to be taken not to allow this to be in contact with the skin On my arrival one part of the fistula in the midline is covered with a colostomy bag while the stool is freely draining all over the patient's abdomen between the legs and on the bed I went into the room ostomy nurse to come with me and removed personally everything cleaned patient up with nursing assistance I said down with the assisted living housekeeper and the nurse and explained in detail how this should be covered and how the stoma should be structured in order to protect the skin Apparently large pieces of stoma skin adhesive material are not available here and let to be brought from [facility]. The same large pieces were used when patient first came to [facility] and care was described in orders At this point meticulous care has to be taken in order to prevent skin damage and free leakage It is also imperative that the wound care gets involved in management of this patient 10/30/16 Patient had the spike a fever today to 101.8 White count 16,000 Abdomen is soft with active bowel sounds and ileostomy is working very well Bilateral breath sounds and no rhonchi or rales Wound VAC has been changed today and I'll look to the wound leg really looks nice and healing very nicely with good granulation tissue No signs of dehiscence I believe the fever spikes are part of the fungemia and unfortunately 30-50% of patients will develop systemic fungemia in this setting will succumb to the same despite maximum therapy Patient remains on micafungin Continue care 10/31/16 Abdomen is soft and active bowel sounds and incision is nice and granulating underneath the wound VAC Ileostomy working fine White count is coming down and patient hasn't had any fever spikes since placed on Diflucan and micafungin Unfortunately patient refuses to eat and also refuses to get out of bed Physical therapy and occupational therapy of trying to mobilize the patient but she will not cooperate She also refuses to take by mouth diet but drinks high caloric supplements at least Respiratory-gillette patient is doing well throughout the day and then 2 in the evening her sats started dropping to again improve later on Will order ABGs and perhaps do a CAT scan of the chest to assess for any effusions or any other possible causes for this Again patient is very ill with fungemia which carries high mortality and ICU patient's especially with immunosuppression accompanying the clinical picture On 1117 I today patient is doing okay She doesn't want to take any by mouth diet except high caloric supplements Abdomen is soft active bowel sounds ileostomy and colostomy clean and midline wound is healing nicely with a the wound VAC Bilateral breath sounds decreased over the both lung chaney consistent with bilateral pulmonary consolidation unlikely mu onset lower lobe pneumonia Patient is unwilling to get out of bed and does not participate in physical occupational therapy rather chased some out of the room Discussed the care with her supervisor pipe joints Mrs. Ling and express reservations about patient's recovery in face off from the anemia compromised immune resistance and multiple other issues plating this situation Infectious disease and palliative care consult several appreciated I'm afraid the patient may and up on the ventilator again and she is thinking about possibly not wanting to be intubated Objective: Vital Signs Date Time Temp Pulse Resp B/P Pulse Ox O2 Delivery O2 Flow Rate FiO2 11/01/16 12:14 92 Venturi Mask 6.00 50 11/01/16 12:00 99.7 98 21 142/67 94 11/01/16 12:00 98 11/01/16 10:00 101 11/01/16 08:13 94 Partial Rebreather 12.00 11/01/16 08:00 99.1 101 20 124/60 98 11/01/16 08:00 101 11/01/16 07:00 94 Partial Non-Rebreather 15.00 11/01/16 06:00 101 11/01/16 05:53 20 11/01/16 04:00 98.4 99 20 133/61 95 11/01/16 04:00 98 11/01/16 02:00 98 11/01/16 00:00 98.6 98 21 150/70 95 11/01/16 00:00 98 10/31/16 22:00 87 10/31/16 20:26 97 Partial Rebreather 12.00 10/31/16 20:00 89 10/31/16 20:00 98.4 89 22 141/66 95 10/31/16 20:00 96 Partial Non-Rebreather 15.00 10/31/16 18:00 90 10/31/16 16:00 98.6 89 24 128/71 100 10/31/16 16:00 89 Labs: Laboratory Tests Test 11/01/16 05:00 White Blood Count 12.7 TH/MM3 (4.0-11.0) Red Blood Count 3.37 MIL/MM3 (4.00-5.30) Hemoglobin 9.3 GM/DL (11.6-15.3) Hematocrit 28.8 % (35.0-46.0) Mean Corpuscular Volume 85.6 FL (80.0-100.0) Mean Corpuscular Hemoglobin 27.7 PG (27.0-34.0) Mean Corpuscular Hemoglobin 32.4 % Concent (32.0-36.0) Red Cell Distribution Width 16.7 % (11.6-17.2) Platelet Count 267 TH/MM3 (150-450) Mean Platelet Volume 9.8 FL (7.0-11.0) Sodium Level 140 MEQ/L (136-145) Potassium Level 3.2 MEQ/L (3.5-5.1) Chloride Level 101 MEQ/L (98-107) Carbon Dioxide Level 31.6 MEQ/L (21.0-32.0) Anion Gap 7 MEQ/L (5-15) Blood Urea Nitrogen 23 MG/DL (7-18) Creatinine 0.74 MG/DL (0.50-1.00) Estimat Glomerular Filtration 78 ML/MIN (>89) Rate Random Glucose 254 MG/DL (74-106) Calcium Level 8.9 MG/DL (8.5-10.1) Total Bilirubin 1.8 MG/DL (0.2-1.0) Direct Bilirubin 1.3 MG/DL (0.0-0.2) Indirect Bilirubin 0.5 MG/DL (0.0-0.8) Aspartate Amino Transf 21 U/L (15-37) (AST/SGOT) Alanine Aminotransferase 19 U/L (10-53) (ALT/SGPT) Alkaline Phosphatase 177 U/L (45-117) Total Protein 7.2 GM/DL (6.4-8.2) Albumin 1.6 GM/DL (3.4-5.0) Result Diagram: 11/01/16 0500 11/01/16 0500 Janice Olvera MD Nov 01, 2016 14:26
--- NOTE | 2016-11-01 14:35 | HHI.HCPN ---
Reason for visit a. To assist with evaluation and management of symptoms including: Pain, anxiety, depression b. To assist medical decision maker(s) with: better understanding of current medical conditions; weighing benefits/burdens of medical treatment options; making medical treatment decisions. . Subjective/Interval History Patient has remained in ICU [status post emergency exploratory laparoscopy for ischemia/perforation-now with ileostomy, colostomy.] Transfer to regular medical floor had been pending, now w increased FIO2 requirements on /off 100% NRB. Surgical wounds healing reasonably well, wound VAC therapy continued. Ileostomy, colostomy functioning. Has been on TPN, taking very little PO, only drinking Ensure supplements. Albumin 1.9. ID following, low grade fevers (100.9) remains on micafungin, fluconazole, vanco, amphotericin, aztreonam. Recent repeated blood cultures have remained positive Danni. AP blood cultures 10/31 pending. ID notes consider MELVA however patient not likely be a candidate for invasive surgical treatment for any findings, hold off for now. Patient seen in room, she is initially sleeping. A friend is visiting at the bedside. Patient arouses some for interaction. Denies much of a cough. Denies sputum. Endorses some shortness of breath. No n/v. Some limited exploration hospital course, recent changes in respiratory status. She seems to have fairly reasonable understanding of recent changes. She indicates she continues to have abdomen pain no better or no worse than it has been previously. She understands that her wounds are reported to be healing on her abdomen though she has not seen them herself. She has been awaiting transfer to another floor , review with her that given her recent changes in respiratory status that she would likely be transferred to a stepdown floor like [facility] where she could still be monitored if her needs were requiring nonrebreather mask. So review with her given recent respiratory findings she remains high risk for further respiratory compromise ask if she is considered whether or not she would want to go back on ventilation if needed. She has not thought much about it but indicates that she "doesn't think she would want to go back on machines ", but would like to think about it more before I change CODE STATUS. Review that she remains high risk for further respiratory compromise due to multiple medical issues, bedbound status, poor nutritional status. She agrees for me to call her friend Anuradha ( healthcare surrogate) to provide update. Following exam call to friend Anuradha, she called me back immediately able to speak with Anuradha at length. Provided update on current conditions, recent diagnostics, current medications and treatments in place, current O2 requirements, current CXR findings. Anuradha understands patient make remains very high risk for further complications/setbacks, . Anuradha is going to try to come visit the patient one evening this week to revisit her goals with her. She indicates in the past that the patient has wanted to continue to try everything but also realizes that the patient's condition continues to worsen and at some point she may not survive, medications. All questions answered, she has palliative contact information. . Advance Directives Living Will: Completed, but not made available Health Care Surrogate: Copy in medical record Durable Power of Dermatology Specialist: Never completed Advance Directive Specifics Health Care Surrogate(s): Primary HCS is her close friend Anuradha Christian, and secondary is her Dwight Wilson. The HCS that is in the record here is not dated. . Objective Vital Signs Date Time Temp Pulse Resp B/P Pulse Ox O2 Delivery O2 Flow Rate FiO2 11/01/16 12:14 92 Venturi Mask 6.00 50 11/01/16 12:00 99.7 98 21 142/67 94 11/01/16 12:00 98 11/01/16 10:00 101 11/01/16 08:13 94 Partial Rebreather 12.00 11/01/16 08:00 99.1 101 20 124/60 98 11/01/16 08:00 101 11/01/16 07:00 94 Partial Non-Rebreather 15.00 11/01/16 06:00 101 11/01/16 05:53 20 11/01/16 04:00 98.4 99 20 133/61 95 11/01/16 04:00 98 11/01/16 02:00 98 11/01/16 00:00 98.6 98 21 150/70 95 11/01/16 00:00 98 10/31/16 22:00 87 10/31/16 20:26 97 Partial Rebreather 12.00 10/31/16 20:00 89 10/31/16 20:00 98.4 89 22 141/66 95 10/31/16 20:00 96 Partial Non-Rebreather 15.00 10/31/16 18:00 90 10/31/16 16:00 98.6 89 24 128/71 100 10/31/16 16:00 89 10/31/16 14:00 88 Intake & Output 11/01/16 11/01/16 07:00 19:00 Intake Total 3887 ml Output Total 5725 ml Balance -1838 ml IV Total 2578 ml TPN/PPN 1309 ml Output Urine Total 1450 ml Stool Total 4200 ml Drainage Total 75 ml Physical Exam CONSTITUTIONAL/GENERAL: lethargic chronically ill appearing pleasant female. Upright in ICU bed. SKIN: Skin temperature appropriate. Not diaphoretic. Abdominal wounds noted-- midline incision with wound VAC dressing intact. Ileostomy, colostomy is noted patent. CARDIOVASCULAR: Regular rate and rhythm, no murmur. No JVD. RESPIRATORY/CHEST: Symmetric, unlabored respirations on 50% venturi mask. Decreased air movement throughout, with scattered rhonchi. GASTROINTESTINAL: Soft, tender, bowel sounds active. Ileostomy and colostomy noted-stoma pink, healthy, patent- draining brown liq. MUSCULOSKELETAL: Extremities without clubbing, cyanosis, or edema. Left Stump now well healed. No mottling or clubbing. NEUROLOGICAL: lethargic, oriented times 23. Appropriate. Seems to have reasonable insight regarding hospital course. Moves all 4 extremities generalized weakness, follows commands. PSYCHIATRIC: lethargic,Not anxious or appearing depressed at this time. . Diagnostic Tests Laboratory Laboratory Tests Test 10/30/16 10/31/16 10/31/16 11/01/16 06:00 06:00 18:15 05:00 White Blood Count 16.3 TH/MM3 14.7 TH/MM3 12.7 TH/MM3 (4.0-11.0) (4.0-11.0) (4.0-11.0) Red Blood Count 3.59 MIL/MM3 3.49 MIL/MM3 3.37 MIL/MM3 (4.00-5.30) (4.00-5.30) (4.00-5.30) Hemoglobin 10.0 GM/DL 9.6 GM/DL 9.3 GM/DL (11.6-15.3) (11.6-15.3) (11.6-15.3) Hematocrit 30.5 % 29.7 % 28.8 % (35.0-46.0) (35.0-46.0) (35.0-46.0) Mean Corpuscular Volume 85.0 FL 85.1 FL 85.6 FL (80.0-100.0) (80.0-100.0) (80.0-100.0) Mean Corpuscular Hemoglobin 28.0 PG 27.6 PG 27.7 PG (27.0-34.0) (27.0-34.0) (27.0-34.0) Mean Corpuscular Hemoglobin 32.9 % 32.4 % 32.4 % Concent (32.0-36.0) (32.0-36.0) (32.0-36.0) Red Cell Distribution Width 16.3 % 16.4 % 16.7 % (11.6-17.2) (11.6-17.2) (11.6-17.2) Platelet Count 268 TH/MM3 273 TH/MM3 267 TH/MM3 (150-450) (150-450) (150-450) Mean Platelet Volume 9.6 FL 9.6 FL 9.8 FL (7.0-11.0) (7.0-11.0) (7.0-11.0) Sodium Level 135 MEQ/L 137 MEQ/L 140 MEQ/L (136-145) (136-145) (136-145) Potassium Level 3.5 MEQ/L 3.6 MEQ/L 3.2 MEQ/L (3.5-5.1) (3.5-5.1) (3.5-5.1) Chloride Level 97 MEQ/L 100 MEQ/L 101 MEQ/L (98-107) (98-107) (98-107) Carbon Dioxide Level 33.2 MEQ/L 31.5 MEQ/L 31.6 MEQ/L (21.0-32.0) (21.0-32.0) (21.0-32.0) Anion Gap 5 MEQ/L (5-15) 6 MEQ/L (5-15) 7 MEQ/L (5-15) Blood Urea Nitrogen 30 MG/DL (7-18) 26 MG/DL (7-18) 23 MG/DL (7-18) Creatinine 0.96 MG/DL 0.88 MG/DL 0.74 MG/DL (0.50-1.00) (0.50-1.00) (0.50-1.00) Estimat Glomerular Filtration 57 ML/MIN (>89) 64 ML/MIN (>89) 78 ML/MIN (>89) Rate Random Glucose 271 MG/DL 240 MG/DL 254 MG/DL (74-106) (74-106) (74-106) Calcium Level 9.2 MG/DL 9.3 MG/DL 8.9 MG/DL (8.5-10.1) (8.5-10.1) (8.5-10.1) Blood Gas Puncture Site RT RADIAL Blood Gas Patient Temperature 98.6 Blood Gas HCO3 31 mmol/L (22-26) Blood Gas Base Excess 7.1 mmol/L (-2-2) Blood Gas Oxygen Saturation 93 % (90-100) Arterial Blood pH 7.47 (7.380-7.420) Arterial Blood Partial 43 mmHg (38-42) Pressure CO2 Arterial Blood Partial 80 mmHg Pressure O2 (61-120) Arterial Blood Oxygen Content 12.7 Vol % (12.0-20.0) Arterial Blood 1.2 % (0-4) Carboxyhemoglobin Arterial Blood Methemoglobin 1.0 % (0-2) Blood Gas Hemoglobin 9.6 G/DL (12.0-16.0) Oxygen Delivery Device Partial Rebreather Blood Gas Liter Flow 15 L/M Total Bilirubin 1.8 MG/DL (0.2-1.0) Direct Bilirubin 1.3 MG/DL (0.0-0.2) Indirect Bilirubin 0.5 MG/DL (0.0-0.8) Aspartate Amino Transf 21 U/L (15-37) (AST/SGOT) Alanine Aminotransferase 19 U/L (10-53) (ALT/SGPT) Alkaline Phosphatase 177 U/L (45-117) Total Protein 7.2 GM/DL (6.4-8.2) Albumin 1.6 GM/DL (3.4-5.0) Result Diagram: 11/01/16 0500 11/01/16 0500 Microbiology Microbiology Date/Time Procedure Status Source Growth 10/31/16 03:35 Aerobic Blood Culture - Preliminary Resulted Blood Peripheral Yeast-Id To Follow 10/31/16 03:35 Anaerobic Blood Culture - Preliminary Resulted Blood Peripheral NO GROWTH IN 1 DAY 10/31/16 03:44 Aerobic Blood Culture - Preliminary Resulted Blood Peripheral Yeast Species 10/31/16 03:44 Anaerobic Blood Culture - Preliminary Resulted Blood Peripheral NO GROWTH IN 1 DAY Imaging Last Impressions Chest X-Ray 11/01/16 0600 Signed Impressions: Service Date/Time: Tuesday, November 01, 2016 03:50 - CONCLUSION: 1. Interval development of bibasilar consolidation and minimal patchy density left upper lobe, likely pneumonia. 2. Cardiomegaly. Florian Pepper MD Abdomen/Pelvis CT 10/19/16 0000 Signed Impressions: Service Date/Time: September 15:10 - CONCLUSION: 1. There are 2 small rim-enhancing fluid collections in the right mid abdomen adjacent to the distal ileum that extends into the ileostomy. These measure 2.6 x 1.3 cm and 2.1 x 1.6 cm. These could represent infected fluid collections but are too small to place a drainage catheter. There is an additional small subcapsular fluid collection along the anterior left lobe of the liver. 2. Additionally, there is wall thickening of the distal ileal loops along with marked mesenteric edema. 3. There is a small volume of free fluid in the left upper quadrant around the spleen and in the pelvis. 4. There is a new small left pleural effusion with compressive atelectasis and right lower lobe volume loss versus airspace consolidation. Calixto Uriostegui MD Liver Ultrasound 07/12/16 0000 Signed Impressions: Service Date/Time: Tuesday, July 12, 2016 18:07 - CONCLUSION: 1. No acute abnormality demonstrated. 2. Heterogeneous liver without measurable mass. 3. Small and heterogeneous spleen without a measurable mass. 4. Cortical thinning and scarring of the right kidney. 5. Previous cholecystectomy. Calixto Woodruff MD Chest CT 07/09/16 0000 Signed Impressions: Service Date/Time: Saturday, July 09, 2016 14:43 - CONCLUSION: 1. Small right pleural effusion and minimal right basilar consolidation. 2. 6 mm left basilar nodule. Followup CT chest 6 months recommended. Florian Pepper MD Lower Extremity Ultrasound 06/25/16 0000 Signed Impressions: Service Date/Time: Saturday, June 25, 2016 15:56 - CONCLUSION: Negative exam with no evidence of deep venous thrombosis. Soft tissue edema. Mike Leija MD Port Line Insertion 8/30/16 0000 Signed Impressions: Service Date/Time: Monday, June 20, 2016 08:53 - CONCLUSION: Uncomplicated ultrasound and fluoroscopic guided implanted central venous port catheter placement as described in detail above. An 8 [employer] port was placed. Kevan Salgado Jr., MD Procedures Stump debridement and wound VAC placement 06/16/16 TPN Skin biopsies, face 07/24/16 Exploratory laparotomy, ileostomy, colostomy, bowel resection 10/08/16 . 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 No other specific skin pathology noted. . (8) pulmonary nodule on CT scan, 2.6 mm at the left base (9) depression (10) COPD, not oxygen dependent (11) history of breast cancer (12) anxiety (13) anemia Symptom Scale: (1) pain 0-10 Scale: 8 (she has been receiving [place] and parenteral hydromorphone) Comment: Pain has been mostly abdominal pain,+ r/t dressing changes . (2) anxiety 0-10 Scale: Unable to quantify Comment: Well controlled with scheduled Cymbalta, Remeron (3) depression 0-10 Scale: Unable to quantify Comment: Reasonably well controlled with Cymbalta, Remeron (4) Malnutrition 0-10 Scale: Unable to quantify Comment: albumin 1.9, on TPN. poor oral intake (5) Dyspnea 0-10 Scale: Unable to quantify Comment: CXR +new pneumonia, + on/off NRB mask Pertinent Non-Medical Issues Psychosocial: Second marriage for about 1 year, but most of that time in the hospital or SNF. No children, but has close friend Anuradha. Spiritual: Evaluation pending Legal: The patient has capacity for decision-making, and has designated her friend Anuradha and her Dwight as primary and secondary HCS respectively Ethical issues impacting care: None. . Important Contacts Primary HCS, close friend Anuradha Christian [phone] : Dwight Wilson [phone] . Prognosis She has suffered multiple illnesses, infections, and complications during the last 10 months, and now has undergone emergency surgery for more ischemic bowel. Her overall prognosis remains somewhat poor, and she would be an appropriate hospice candidate if her proxy decision makers elected to transition to comfort care. . Code Status: Full Code Plan == FULL CODE == GOALS: The patient has continued to request AGGRESSIVE CARE--though she is thinking about NO CODE /no intubation status. The patient remains at considerable risk for further complications/setbacks. Patient is aware of these risks and that at any point she has a right to elect for no further aggressive interventions and comfort measures. Called today to her healthcare surrogate Anuradha- review with her at length current conditions, diagnostic, treatments. Anuradha is going to try to meet with the patient in the next couple of days [requests nursing to allow her to visit around 1am as it would be when her nursing shift ends that she can visit-- notified nursing to notify charge RE] to further discuss patient goals with her. Anuradha has a good understanding of conditions and high risk for further complications, . == DECISION-MAKING: patient appears able to make her own decisions currently. HCS is her friend Anuradha Christian (primary )and her Dwight Wilson ( secondary) == SYMPTOMS: * Pain: s/p recent ex-lap surgery; still with some sharp, intermittent pain to mid abdomen--- 6-8-10, adequately relieved by prn 0.5mg hydromorphone use; requiring 23 doses a day most days. Requires additional higher dosing (2mg) for dressing changes only. Will continue to evaluate. * Anxiety/depression: She is appears stable/improved cymbalta, remeron ( previosly on xanax this had been d/c). No obvious or reported anxiety, depression during interaction today. * malnutrition- on TNP, very poor oral intake. Taking ENsure only. Albumin 1.9 * dyspnea- bibasilar consolidation, LINDA pneumonia. Increased resp effort, req. NRB alternating w venturi mask. On mult abx, nebulizers. Ongoing discussions RE intubation/code status/treatment wishes w pt. == Palliative Care will continue to follow the patient during this hospitalization intermittently to further assist with symptom management and to re-visit goals of medical treatment if there are significant changes in the course of her illness. . . Time Spent Total Floor Time (mins): 30 >50% Counseling/Coord of Care: Yes (d/w RN, surgery Dr Olvera) Attestation To help prompt me to consider important information that might be impacting today's encounter and assessment, information from prior notes written by myself or my colleagues may have been "brought forward" into today's note. My signature on this note, however, is an attestation that I personally performed the exam, history, and/or decision-making noted today, and, unless otherwise indicated, the interactions with patient, family, and staff as well as the review of records all occurred today. I also attest that the listed assessment and stated plan reflect my best clinical judgment today based on the combination of historical information, prior notes, and today's exam/ interactions. When time spent is documented, it refers only to time spent today by the signer, or if indicated, combined time spent today by collaborating physician/nurse practitioner. Xi Marinelli Nov 01, 2016 14:35
[2016-11-01] MEDS: DEXTROSE 5% IV SCH ×2 (16:33)
[2016-11-01] MEDS: WATE IV SCH ×2 (16:33)
[2016-11-01] MEDS: AMPHOTERICIN B LIPOSOME IV SCH ×2 (16:33)
[2016-11-01] MEDS: FLUCONAZOLE 400 MG PREMIX BAG 200 ML IV SCH (16:57)
--- NOTE | 2016-11-01 17:34 | HHI.IDPN ---
Subjective Subjective Remarks not doing well On NRB now on ventimask No cough, no expectoration cont to have fever minimal po intake co abdominal pain off pressors diarrhea slowed down remains on TPN Antibiotics fluconazol lip AMB vanco azctam Lines Port: removed Past Medical History 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 Vital Signs Date Time Temp Pulse Resp B/P Pulse Ox O2 Delivery O2 Flow Rate FiO2 11/01/16 12:14 92 Venturi Mask 6.00 50 11/01/16 12:00 99.7 98 21 142/67 94 11/01/16 12:00 98 11/01/16 10:00 101 11/01/16 08:13 94 Partial Rebreather 12.00 11/01/16 08:00 99.1 101 20 124/60 98 11/01/16 08:00 101 11/01/16 07:00 94 Partial Non-Rebreather 15.00 11/01/16 06:00 101 11/01/16 05:53 20 11/01/16 04:00 98.4 99 20 133/61 95 11/01/16 04:00 98 11/01/16 02:00 98 11/01/16 00:00 98.6 98 21 150/70 95 11/01/16 00:00 98 10/31/16 22:00 87 10/31/16 20:26 97 Partial Rebreather 12.00 10/31/16 20:00 89 10/31/16 20:00 98.4 89 22 141/66 95 10/31/16 20:00 96 Partial Non-Rebreather 15.00 10/31/16 18:00 90 10/31/16 10/31/16 11/01/16 15:00 23:00 07:00 Intake Total 1917 ml 1163 ml 2724 ml Output Total 2100 ml 1650 ml 4075 ml Balance -183 ml -487 ml -1351 ml Intake Oral 240 ml IV Total 1063 ml 758 ml 1820 ml TPN/PPN 614 ml 405 ml 904 ml Output Urine Total 425 ml 400 ml 1050 ml Stool Total 1650 ml 1200 ml 3000 ml Drainage Total 25 ml 50 ml 25 ml . Laboratory Tests Test 10/31/16 11/01/16 06:00 05:00 White Blood Count 14.7 TH/MM3 12.7 TH/MM3 Red Blood Count 3.49 MIL/MM3 3.37 MIL/MM3 Hemoglobin 9.6 GM/DL 9.3 GM/DL Hematocrit 29.7 % 28.8 % Mean Corpuscular Volume 85.1 FL 85.6 FL Mean Corpuscular Hemoglobin 27.6 PG 27.7 PG Mean Corpuscular Hemoglobin 32.4 % 32.4 % Concent Red Cell Distribution Width 16.4 % 16.7 % Platelet Count 273 TH/MM3 267 TH/MM3 Mean Platelet Volume 9.6 FL 9.8 FL Laboratory Tests Test 10/31/16 11/01/16 06:00 05:00 Sodium Level 137 MEQ/L 140 MEQ/L Potassium Level 3.6 MEQ/L 3.2 MEQ/L Chloride Level 100 MEQ/L 101 MEQ/L Carbon Dioxide Level 31.5 MEQ/L 31.6 MEQ/L Anion Gap 6 MEQ/L 7 MEQ/L Blood Urea Nitrogen 26 MG/DL 23 MG/DL Creatinine 0.88 MG/DL 0.74 MG/DL Estimat Glomerular Filtration 64 ML/MIN 78 ML/MIN Rate Random Glucose 240 MG/DL 254 MG/DL Calcium Level 9.3 MG/DL 8.9 MG/DL Total Bilirubin 1.8 MG/DL Direct Bilirubin 1.3 MG/DL Indirect Bilirubin 0.5 MG/DL Aspartate Amino Transf 21 U/L (AST/SGOT) Alanine Aminotransferase 19 U/L (ALT/SGPT) Alkaline Phosphatase 177 U/L Total Protein 7.2 GM/DL Albumin 1.6 GM/DL Microbiology Date/Time Procedure Status Source Growth 10/31/16 03:35 Aerobic Blood Culture - Preliminary Resulted Blood Peripheral Yeast-Id To Follow 10/31/16 03:35 Anaerobic Blood Culture - Preliminary Resulted Blood Peripheral NO GROWTH IN 1 DAY 10/31/16 03:44 Aerobic Blood Culture - Preliminary Resulted Blood Peripheral Yeast Species 10/31/16 03:44 Anaerobic Blood Culture - Preliminary Resulted Blood Peripheral NO GROWTH IN 1 DAY Imaging L Last Impressions Chest X-Ray 11/01/16 0600 Signed Impressions: Service Date/Time: Tuesday, November 01, 2016 03:50 - CONCLUSION: 1. Interval development of bibasilar consolidation and minimal patchy density left upper lobe, likely pneumonia. 2. Cardiomegaly. Florian Pepper MD Abdomen/Pelvis CT 10/19/16 0000 Signed Impressions: Service Date/Time: September 15:10 - CONCLUSION: 1. There are 2 small rim-enhancing fluid collections in the right mid abdomen adjacent to the distal ileum that extends into the ileostomy. These measure 2.6 x 1.3 cm and 2.1 x 1.6 cm. These could represent infected fluid collections but are too small to place a drainage catheter. There is an additional small subcapsular fluid collection along the anterior left lobe of the liver. 2. Additionally, there is wall thickening of the distal ileal loops along with marked mesenteric edema. 3. There is a small volume of free fluid in the left upper quadrant around the spleen and in the pelvis. 4. There is a new small left pleural effusion with compressive atelectasis and right lower lobe volume loss versus airspace consolidation. Calixto Uriostegui MD Liver Ultrasound 07/12/16 0000 Signed Impressions: Service Date/Time: Tuesday, July 12, 2016 18:07 - CONCLUSION: 1. No acute abnormality demonstrated. 2. Heterogeneous liver without measurable mass. 3. Small and heterogeneous spleen without a measurable mass. 4. Cortical thinning and scarring of the right kidney. 5. Previous cholecystectomy. Calixto Woodruff MD Chest CT 07/09/16 0000 Signed Impressions: Service Date/Time: Saturday, July 09, 2016 14:43 - CONCLUSION: 1. Small right pleural effusion and minimal right basilar consolidation. 2. 6 mm left basilar nodule. Followup CT chest 6 months recommended. Florian Pepper MD Lower Extremity Ultrasound 06/25/16 0000 Signed Impressions: Service Date/Time: Saturday, June 25, 2016 15:56 - CONCLUSION: Negative exam with no evidence of deep venous thrombosis. Soft tissue edema. Mike Leija MD Port Line Insertion 06/20/16 0000 Signed Impressions: Service Date/Time: Monday, June 20, 2016 08:53 - CONCLUSION: Uncomplicated ultrasound and fluoroscopic guided implanted central venous port catheter placement as described in detail above. An 8 Vietnamese Power port was placed. Kevan Salgado Jr., MD Physical Exam CONSTITUTIONAL/GENERAL: fully awake and alert Conversant TUBES/LINES/DRAINS: R SCV cath in palce, site OK PORT incision is dry and clean at previous PORT site, no skin changes SKIN: No jaundice, rashes, or lesions. Skin temperature appropriate. Not diaphoretic. HEAD: Atraumatic. Normocephalic. EYES: Pupils equal and round and reactive. Extraocular motions intact. No scleral icterus. No injection or drainage. Fundi not examined. ENT: Oral mucosae without visible erythema, exudates, masses, or lesions. CARDIOVASCULAR: Regular rate and rhythm without murmurs, gallops, or rubs. No JVD. RESPIRATORY/CHEST: Symmetric, unlabored respirations. Clear to auscultation. Breath sounds equal bilaterally. No wheezes, rales, or rhonchi. GASTROINTESTINAL: Abdomen with VAC dressing in place serosang dc minimally distended quite tender to palpation + BS large amount of liquid brown stool from colostomy GENITOURINARY: Without palpable bladder distension. Hamlin catheter in place with clear yellow urine MUSCULOSKELETAL: Extremities without clubbing, cyanosis, 1+ edema. 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 fungal endocarditis FLoaters - no fungal endophthalmitis per ophthal eval Intraabd abscesses, small : poly Hill: no clin significance ? PNA vs fluid overload Prognosis is not good in the view of persistent infection poor overall performance status and TPN dependence RECOMMENDATION cont fluconazol dc micafungin sttart AMB, lipo repeat blood clx consider MELVA though given into fact that pt is not a candidate for cardiac surgery will defer the procedure for now Remove R SCV central line; needs central line - no PICC untill clears fungemia add azactam/vanco repeat [address] A/P to eval for hepatosplenic candidiasis sputum clx dw RN dw May Hidalgo Alexandra A. MD Nov 01, 2016 17:34
[2016-11-01] MEDS: ONDANSETRON HCL 4 MG/2 ML VIAL IV PUSH PRN (18:45)
[2016-11-01] MEDS: FAT EMULSION 20% INJ 250 ML (Twice weekly over 8 hours) IV-CENTRAL SCH (19:43)
[2016-11-01] MEDS: CLINIMIX E 5/25 2000 mL- >42 mls/hr IV-CENTRAL SCH ×3 (19:43)
[2016-11-01] MEDS: MIRTAZAPINE ODT 15 MG TAB PO SCH (21:03)
[2016-11-02] VITALS (14 sets, daily range): BP systolic 120–165; BP diastolic 60–82; PULSE 93–117; RESP 19–26; TEMP 98.5–100.1; O2SAT 94–97
[2016-11-02] MEDS: SODIUM CHLOR 0.9% 1000 ML INJ 1,000 ML IV SCH ×2 (04:00→14:00)
[2016-11-02] MEDS: ONDANSETRON HCL 4 MG/2 ML VIAL IV PUSH PRN (04:07)
[2016-11-02] MEDS: HYDROmorphone HCL PF 1 MG/ML VIAL IV PRN ×4 (04:07→23:40)
[2016-11-02] MEDS: AZTREONAM INJ 1,000 MG in SODIUM CHLORIDE 0.9% INJ 100 ML IV SCH ×2 (04:07→11:17)
[2016-11-02] MEDS: OXYBUTYNIN CHLORIDE 5 MG TAB PO SCH ×3 (06:12→21:42)
[2016-11-02 06:21] LABS: HEMATOCRIT 28.2 % (35.0-46.0); MEAN CELL VOLUME 86.3 FL (80.0-100.0); MEAN CORPUSCULAR HEMOGLOBIN 27.7 PG (27.0-34.0); MEAN CORPUSCULAR HGB CONC 32.1 % (32.0-36.0); PLATELET COUNT 242 TH/MM3 (150-450); RED BLOOD COUNT 3.27 MIL/MM3 (4.00-5.30); RED CELL DISTRIBUTION WIDTH 16.9 % (11.6-17.2); REVIEW FLAG FINAL
[2016-11-02 07:01] LABS: BICARBONATE 27.3 MEQ/L (21.0-32.0); INDIRECT BILIRUBIN 0.5 MG/DL (0.0-0.8); POTASSIUM 4.1 MEQ/L (3.5-5.1); TOTAL BILIRUBIN ADULT 2.4 MG/DL (0.2-1.0)
[2016-11-02] MEDS: CHLORHEXIDINE 0.12% (ORAL KIT) 15 ML CUP MT SCH ×2 (08:00→19:40)
[2016-11-02] MEDS: CALCITRIOL 0.25 MCG CAP PO SCH (08:42)
[2016-11-02] MEDS: FERROUS SULFATE 325 MG (65 MG ELEMENTAL IRON) TAB PO SCH (08:42)
[2016-11-02] MEDS: ZINC SULFATE 220 MG CAP PO SCH (08:42)
[2016-11-02] MEDS: CALCIUM/VITAMIN D 250 MG/125 U TAB PO SCH ×2 (08:43→19:39)
[2016-11-02] MEDS: DULoxetine HCl DR 30 MG CAP PO SCH (08:43)
[2016-11-02] MEDS: RIVAROXABAN 15 MG TAB PO SCH (08:43)
[2016-11-02] MEDS: SODIUM CHLORIDE 0.9% FLUSH 5 ML FLUSH IVF SCH ×2 (08:43→19:40)
[2016-11-02] MEDS: INSULIN ASPART SUPPLEMENTAL SCALE SQ SCH ×4 (08:43→21:40)
[2016-11-02] MEDS: CARVEDILOL 3.125 MG TAB PO SCH ×2 (08:43→19:39)
[2016-11-02] MEDS: NYSTATIN 100,000 U/GM PWD 15 GM BTL TOPICAL SCH ×2 (08:44→19:39)
[2016-11-02] MEDS ORDERED: ASP: Documented ESBL, MDR A baumannii or P. aeruginosa XX PRN (12:15)
[2016-11-02] MEDS ORDERED: MISCELLANEOUS PHARMACY INFORMATION XX PRN (12:15)
--- NOTE | 2016-11-02 12:27 | HHI.PR ---
Addendum to Inpatient Note Additional Information gram negative rods in sputum clx h/o ESBL+ org previously - start meropenem - dc Roxana Beard MD Nov 02, 2016 12:27
[2016-11-02] MEDS ORDERED: VANCOMYCIN 1,000 MG/NS 250 ML IV SCH ×2 (13:00)
[2016-11-02] MEDS: MEROPENEM INJ 1,000 MG in SODIUM CHLORIDE 0.9% INJ 100 ML IV SCH ×2 (14:00→21:42)
[2016-11-02] MEDS: WATE IV SCH ×2 (14:30)
[2016-11-02] MEDS: AMPHOTERICIN B LIPOSOME IV SCH ×2 (14:30)
[2016-11-02] MEDS: DEXTROSE 5% IV SCH ×2 (14:30)
--- NOTE | 2016-11-02 14:44 | HHI.HCPN ---
Reason for visit a. To assist with evaluation and management of symptoms including: Pain, anxiety, depression b. To assist medical decision maker(s) with: better understanding of current medical conditions; weighing benefits/burdens of medical treatment options; making medical treatment decisions. . Subjective/Interval History Patient has remained in ICU [status post emergency exploratory laparoscopy for ischemia/perforation-now with ileostomy, colostomy.] Transfer to regular medical floor had been pending, now w increased FIO2 requirements on /off 100% NRB for past several days. Surgical wounds healing reasonably well, wound VAC therapy continued. Ileostomy, colostomy functioning. Has been on TPN,taking very little PO, only drinking Ensure supplements. ID following, low grade fevers (100.3) remains on micafungin, fluconazole, vanco, amphotericin, aztreonam. Micafungin DC'd. Repeated blood cultures systole positive Danni. blood cultures 10/31 pending positive Danni. Sputum culture 11/01 pending. ID has ordered abdomen CT eval for hepatosplenic candidiasis. Patient seen in room, she is initially sleeping, up in stretcher chair at bedside. She arouses to my exam lethargic, mostly oriented. Indicates she feels okay just tired. She tells me she is just received hydromorphone for pain , feeling a little bit better and wants to sleep. Attempt to engage her in discussion regarding resuscitation status, she tells me she is still thinking about it but she is too tired to talk right now. She asks me for assistance during her couple water bedside I assisted her by lifting O2 massive she could drink note O2 sats decreased to 90% during about 1015 seconds off of mask. Her friend and healthcare surrogate Anuradha has not been yet. Advise her of my discussion with Anuradha yesterday and that Anuradha is hoping to come in sometime by the weekend to see her. . Advance Directives Living Will: Completed, but not made available Health Care Surrogate: Copy in medical record Durable Power of Junior Java Developer: Never completed Advance Directive Specifics Health Care Surrogate(s): Primary HCS is her close friend Anuradha Christian, and secondary is her Dwight Wilson. The HCS that is in the record here is not dated. . Objective Vital Signs Date Time Temp Pulse Resp B/P Pulse Ox O2 Delivery O2 Flow Rate FiO2 11/02/16 10:00 103 1/12/17 08:00 99.3 106 26 121/60 95 11/02/16 08:00 106 11/02/16 07:36 94 Partial Rebreather 11/02/16 07:00 94 Partial Non-Rebreather 15.00 11/02/16 06:00 111 11/02/16 04:37 22 11/02/16 04:00 105 11/02/16 04:00 100.1 117 22 165/75 95 11/02/16 02:00 105 11/02/16 00:00 105 11/02/16 00:00 98.9 107 22 149/82 97 11/01/16 22:00 105 11/01/16 20:52 98 Partial Rebreather 15.00 11/01/16 20:00 105 11/01/16 20:00 98.1 105 25 124/68 93 11/01/16 19:00 93 Partial Non-Rebreather 15.00 11/01/16 18:00 113 11/01/16 16:00 100.3 107 24 155/73 92 11/01/16 16:00 107 Intake & Output 11/02/16 11/02/16 07:00 19:00 Intake Total 2713 ml Output Total 3550 ml Balance -837 ml Intake Oral 200 ml IV Total 1630 ml TPN/PPN 883 ml Output Urine Total 1000 ml Stool Total 2500 ml Drainage Total 50 ml Physical Exam CONSTITUTIONAL/GENERAL: lethargic chronically ill appearing female. Lethargic , Up in stretcher chair. SKIN: Skin temperature appropriate. Not diaphoretic. Abdominal wounds noted-- midline incision with wound VAC dressing intact. Ileostomy, colostomy is noted patent. CARDIOVASCULAR: Regular rate and rhythm, no murmur. No JVD. RESPIRATORY/CHEST: Symmetric, unlabored respirations on 100% nonrebreather, desaturates to 90% when O2 mask off about 10 seconds for her to drink. Decreased air movement throughout, with scattered rhonchi. GASTROINTESTINAL: Soft, tender, bowel sounds active. Ileostomy and colostomy noted-stoma pink, healthy, patent- draining brown liq. MUSCULOSKELETAL: Extremities without clubbing, cyanosis, or edema. Left Stump now well healed. No mottling or clubbing. NEUROLOGICAL: lethargic, oriented times 23. Appropriate. Difficult to assess insight due to lethargy she does not wish to engage today. Moves all 4 extremities generalized weakness, follows commands. PSYCHIATRIC: lethargic,Not anxious or appearing depressed at this time. . Diagnostic Tests Laboratory Laboratory Tests Test 10/31/16 10/31/16 11/01/16 11/02/16 06:00 18:15 05:00 06:00 White Blood Count 14.7 TH/MM3 12.7 TH/MM3 13.0 TH/MM3 (4.0-11.0) (4.0-11.0) (4.0-11.0) Red Blood Count 3.49 MIL/MM3 3.37 MIL/MM3 3.27 MIL/MM3 (4.00-5.30) (4.00-5.30) (4.00-5.30) Hemoglobin 9.6 GM/DL 9.3 GM/DL 9.1 GM/DL (11.6-15.3) (11.6-15.3) (11.6-15.3) Hematocrit 29.7 % 28.8 % 28.2 % (35.0-46.0) (35.0-46.0) (35.0-46.0) Mean Corpuscular Volume 85.1 FL 85.6 FL 86.3 FL (80.0-100.0) (80.0-100.0) (80.0-100.0) Mean Corpuscular Hemoglobin 27.6 PG 27.7 PG 27.7 PG (27.0-34.0) (27.0-34.0) (27.0-34.0) Mean Corpuscular Hemoglobin 32.4 % 32.4 % 32.1 % Concent (32.0-36.0) (32.0-36.0) (32.0-36.0) Red Cell Distribution Width 16.4 % 16.7 % 16.9 % (11.6-17.2) (11.6-17.2) (11.6-17.2) Platelet Count 273 TH/MM3 267 TH/MM3 242 TH/MM3 (150-450) (150-450) (150-450) Mean Platelet Volume 9.6 FL 9.8 FL 10.0 FL (7.0-11.0) (7.0-11.0) (7.0-11.0) Sodium Level 137 MEQ/L 140 MEQ/L 140 MEQ/L (136-145) (136-145) (136-145) Potassium Level 3.6 MEQ/L 3.2 MEQ/L 4.1 MEQ/L (3.5-5.1) (3.5-5.1) (3.5-5.1) Chloride Level 100 MEQ/L 101 MEQ/L 106 MEQ/L (98-107) (98-107) (98-107) Carbon Dioxide Level 31.5 MEQ/L 31.6 MEQ/L 27.3 MEQ/L (21.0-32.0) (21.0-32.0) (21.0-32.0) Anion Gap 6 MEQ/L (5-15) 7 MEQ/L (5-15) 7 MEQ/L (5-15) Blood Urea Nitrogen 26 MG/DL (7-18) 23 MG/DL (7-18) 22 MG/DL (7-18) Creatinine 0.88 MG/DL 0.74 MG/DL 0.82 MG/DL (0.50-1.00) (0.50-1.00) (0.50-1.00) Estimat Glomerular Filtration 64 ML/MIN (>89) 78 ML/MIN (>89) 69 ML/MIN (>89) Rate Random Glucose 240 MG/DL 254 MG/DL 266 MG/DL (74-106) (74-106) (74-106) Calcium Level 9.3 MG/DL 8.9 MG/DL 9.0 MG/DL (8.5-10.1) (8.5-10.1) (8.5-10.1) Blood Gas Puncture Site RT RADIAL Blood Gas Patient Temperature 98.6 Blood Gas HCO3 31 mmol/L (22-26) Blood Gas Base Excess 7.1 mmol/L (-2-2) Blood Gas Oxygen Saturation 93 % (90-100) Arterial Blood pH 7.47 (7.380-7.420) Arterial Blood Partial 43 mmHg (38-42) Pressure CO2 Arterial Blood Partial 80 mmHg Pressure O2 (61-120) Arterial Blood Oxygen Content 12.7 Vol % (12.0-20.0) Arterial Blood 1.2 % (0-4) Carboxyhemoglobin Arterial Blood Methemoglobin 1.0 % (0-2) Blood Gas Hemoglobin 9.6 G/DL (12.0-16.0) Oxygen Delivery Device Partial Rebreather Blood Gas Liter Flow 15 L/M Total Bilirubin 1.8 MG/DL 2.4 MG/DL (0.2-1.0) (0.2-1.0) Direct Bilirubin 1.3 MG/DL 1.9 MG/DL (0.0-0.2) (0.0-0.2) Indirect Bilirubin 0.5 MG/DL 0.5 MG/DL (0.0-0.8) (0.0-0.8) Aspartate Amino Transf 21 U/L (15-37) 22 U/L (15-37) (AST/SGOT) Alanine Aminotransferase 19 U/L (10-53) 17 U/L (10-53) (ALT/SGPT) Alkaline Phosphatase 177 U/L 196 U/L (45-117) (45-117) Total Protein 7.2 GM/DL 7.0 GM/DL (6.4-8.2) (6.4-8.2) Albumin 1.6 GM/DL 1.5 GM/DL (3.4-5.0) (3.4-5.0) Result Diagram: 11/02/16 0600 11/02/16 0600 Microbiology Microbiology Date/Time Procedure Status Source Growth 10/31/16 03:35 Aerobic Blood Culture - Preliminary Resulted Blood Peripheral Danni Parapsilosis 10/31/16 03:35 Anaerobic Blood Culture - Preliminary Resulted Blood Peripheral NO GROWTH IN 2 DAYS 10/31/16 03:35 Received Other Pending 10/31/16 03:44 Aerobic Blood Culture - Final Resulted Blood Peripheral Danni Parapsilosis 10/31/16 03:44 Anaerobic Blood Culture - Preliminary Resulted Blood Peripheral NO GROWTH IN 2 DAYS 11/01/16 20:30 Gram Stain - Final Resulted Sputum Expectorated Sputum 11/01/16 20:30 Sputum Culture Resulted Sputum Expectorated Sputum Pending 11/01/16 20:30 Fungal Smear Received Sputum Expectorated Sputum Pending 11/01/16 20:30 Fungal Culture Received Sputum Expectorated Sputum Pending Imaging Last Impressions Chest X-Ray 11/01/16 0600 Signed Impressions: Service Date/Time: Tuesday, November 01, 2016 03:50 - CONCLUSION: 1. Interval development of bibasilar consolidation and minimal patchy density left upper lobe, likely pneumonia. 2. Cardiomegaly. Florian Pepper MD Abdomen/Pelvis CT 10/19/16 0000 Signed Impressions: Service Date/Time: September 15:10 - CONCLUSION: 1. There are 2 small rim-enhancing fluid collections in the right mid abdomen adjacent to the distal ileum that extends into the ileostomy. These measure 2.6 x 1.3 cm and 2.1 x 1.6 cm. These could represent infected fluid collections but are too small to place a drainage catheter. There is an additional small subcapsular fluid collection along the anterior left lobe of the liver. 2. Additionally, there is wall thickening of the distal ileal loops along with marked mesenteric edema. 3. There is a small volume of free fluid in the left upper quadrant around the spleen and in the pelvis. 4. There is a new small left pleural effusion with compressive atelectasis and right lower lobe volume loss versus airspace consolidation. Calixto Uriostegui MD Liver Ultrasound 07/12/16 0000 Signed Impressions: Service Date/Time: Tuesday, July 12, 2016 18:07 - CONCLUSION: 1. No acute abnormality demonstrated. 2. Heterogeneous liver without measurable mass. 3. Small and heterogeneous spleen without a measurable mass. 4. Cortical thinning and scarring of the right kidney. 5. Previous cholecystectomy. Calixto Woodruff MD Chest CT 07/09/16 0000 Signed Impressions: Service Date/Time: Saturday, July 09, 2016 14:43 - CONCLUSION: 1. Small right pleural effusion and minimal right basilar consolidation. 2. 6 mm left basilar nodule. Followup CT chest 6 months recommended. Florian Pepper MD Lower Extremity Ultrasound 06/25/16 0000 Signed Impressions: Service Date/Time: Saturday, June 25, 2016 15:56 - CONCLUSION: Negative exam with no evidence of deep venous thrombosis. Soft tissue edema. Mike Leija MD Port Line Insertion 06/20/16 0000 Signed Impressions: Service Date/Time: Monday, June 20, 2016 08:53 - CONCLUSION: Uncomplicated ultrasound and fluoroscopic guided implanted central venous port catheter placement as described in detail above. An 8 Slovenian Power port was placed. Kevan Salgado Jr., MD Procedures Stump debridement and wound VAC placement 8/26/16 TPN Skin biopsies, face 07/24/16 Exploratory laparotomy, ileostomy, colostomy, bowel resection 10/08/16 . 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 No other specific skin pathology noted. . (8) pulmonary nodule on CT scan, 2.6 mm at the left base (9) depression (10) COPD, not oxygen dependent (11) history of breast cancer (12) anxiety (13) anemia Symptom Scale: (1) pain 0-10 Scale: 8 (she has been receiving [place] and parenteral hydromorphone) Comment: Pain has been mostly abdominal pain,+ r/t dressing changes . (2) anxiety 0-10 Scale: Unable to quantify Comment: Well controlled with scheduled Cymbalta, Remeron (3) depression 0-10 Scale: Unable to quantify Comment: Reasonably well controlled with Cymbalta, Remeron (4) Malnutrition 0-10 Scale: Unable to quantify Comment: albumin 1.9, on TPN. poor oral intake (5) Dyspnea 0-10 Scale: Unable to quantify Comment: CXR +new pneumonia, + on/off NRB mask Pertinent Non-Medical Issues Psychosocial: Second marriage for about 1 year, but most of that time in the hospital or SNF. No children, but has close friend Anuradha. Spiritual: Evaluation pending Legal: The patient has capacity for decision-making, and has designated her friend Anuradha and her Dwight as primary and secondary HCS respectively Ethical issues impacting care: None. . Important Contacts Primary HCS, close friend Anuradha Christian [phone] : wDight Wilson [phone] . Prognosis She has suffered multiple illnesses, infections, and complications during the last 10 months, and now has undergone emergency surgery for more ischemic bowel. Her overall prognosis remains somewhat poor, and she would be an appropriate hospice candidate if her proxy decision makers elected to transition to comfort care. . Code Status: Full Code Plan == FULL CODE == GOALS: The patient has continued to request AGGRESSIVE CARE--though she is thinking about NO CODE /no intubation status. The patient remains at considerable risk for further complications/setbacks. Patient is aware of these risks and that at any point she has a right to elect for no further aggressive interventions and comfort measures. On atient did not wish to further engage regarding discussion of goals/CODE STATUS. She was too tired and wished to sleep. Called 11/01/16 to her healthcare surrogate Anuradha- review with her at length current conditions, diagnostic, treatments. Anuradha is going to try to meet with the patient in the next couple of days [requests nursing to allow her to visit around 1am as it would be when her nursing shift ends that she can visit-- notified nursing to notify charge RE] to further discuss patient goals with her. Anuradha has a good understanding of conditions and high risk for further complications, . == DECISION-MAKING: patient appears able to make her own decisions currently. HCS is her friend Anuradha Christian (primary )and her Dwight Wilson ( secondary) == SYMPTOMS: * Pain: s/p recent ex-lap surgery; still with some sharp, intermittent pain to mid abdomen--- 6-8-10, adequately relieved by prn 0.5mg hydromorphone use; requiring 23 doses a day most days. Requires additional higher dosing (2mg) for dressing changes only. Will continue to evaluate. * Anxiety/depression: She is appears stable/improved cymbalta, remeron ( previosly on xanax this had been d/c). No obvious or reported anxiety, depression during interaction today. * malnutrition- on TNP, very poor oral intake. Taking ENsure only. Albumin 1.9 * dyspnea- bibasilar consolidation, LINDA pneumonia. Increased resp effort, req. NRB alternating w venturi mask. On mult abx, nebulizers. Ongoing discussions RE intubation/code status/treatment wishes w pt. == Palliative Care will continue to follow the patient during this hospitalization intermittently to further assist with symptom management and to re-visit goals of medical treatment if there are significant changes in the course of her illness. . . Time Spent Total Floor Time (mins): 20 >50% Counseling/Coord of Care: Yes (discussed with primary nurse, critical care.) Attestation To help prompt me to consider important information that might be impacting today's encounter and assessment, information from prior notes written by myself or my colleagues may have been "brought forward" into today's note. My signature on this note, however, is an attestation that I personally performed the exam, history, and/or decision-making noted today, and, unless otherwise indicated, the interactions with patient, family, and staff as well as the review of records all occurred today. I also attest that the listed assessment and stated plan reflect my best clinical judgment today based on the combination of historical information, prior notes, and today's exam/ interactions. When time spent is documented, it refers only to time spent today by the signer, or if indicated, combined time spent today by collaborating physician/nurse practitioner. Xi Marinelli Nov 02, 2016 14:44
[2016-11-02] MEDS ORDERED: EPINEPHrine HCL (1:10,000) 1 MG/10 ML SYRINGE ONE (15:05)
[2016-11-02] MEDS ORDERED: LIDOCAINE HCL 2% 100 MG/5 ML SYRINGE ONE (15:05)
[2016-11-02] MEDS ORDERED: ATROPINE SULFATE 1 MG/10 ML SYRINGE ONE (15:05)
[2016-11-02] MEDS ORDERED: IOHEXOL 350 MG/ML 10 ML VIAL (for RAD DIAG) IV ONE (15:28)
[2016-11-02] MEDS: HYDROmorphone HCL PF 2 MG/ML VIAL IV PRN (15:56)
--- NOTE | 2016-11-02 16:01 | PD.CAR.PN ---
CVT Progress Note Subjective/Hospital Course: 70-year-old female with a complex medical and surgical history of peripheral vascular disease and multiple related problems presents now status post BK amputation about a month half ago. Patient went to correction and apparently braced herself on the stump several times in bed in hit it against either floor or the chair not quite clear. Part of the stump opened up and at this point patient is dehiscence of skin deeper tissue seemed to be still intact. 06/16/16 Patient underwent yesterday debridement of the stump with wound VAC placement. The dehiscence is fortunately superficial involving skin and muscle in this as been debrided successfully while the rest of the tissues of bleeding and are viable. Wound VAC has been placed Cultures have been reviewed and antibiotics can be adjusted by medicine as appropriate We'll continue current care and patient should be able to go to correction with a wound VAC by Sunday Patient's nutritional status is very poor with a low albumen and prealbumin level and therefore nutritional evaluation and recommendations are requested I believe the patient is not taking sufficient by mouth in the correction and may need supplemental enteral or parenteral feedings at this point 06/17/16 I reviewed the nutritional parameters and patient's prealbumin and transferrin levels a critically low indicating severe malnutrition. Patient's healing is impaired and so is the rehabilitative potential. After reviewing to nutritional recommendations once these are made, we will decide whether patient needs an [id number]-[id number]-Aimf placed for additional parenteral nutrition for short bowel syndrome Stump is nice and clean with minimal drainage from the wound VAC 06/19/16 Still awaiting nutritional consult and evaluation for patient has short gut syndrome and will probably need additional parenteral feedings. If so patient will need [id number] placement for additional feedings Patient is taking excellent by mouth but despite that her nutritional status is poor and hence the healing issues Left BKA stump incision is clean and wound VAC is in place with minimal drainage and will need to be changed today Awaiting wound care to change the wound VAC. Infectious disease help is much appreciated 06/20/2016 Patient doing well at this time. Stump is clean and the wound VAC will be changed today Patient had [id number]-[id number] placed by radiology for supplemental parenteral feedings. Grateful for the nutritional evaluation. Patient will be placed on TPN at about the 1500 non-protein calories a day split about 60-70% in glucose and about 30% in form of lipids Patient will likely have to be discharged on supplemental TPN in face of her short bowel syndrome 06/21/16 Patient is doing really well at this time She's taking good by mouth diet. 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 There is some granulation tissue which may eventually need to be debrided but at this point I would leave it alone. Stump wound VAC has been changed and this is clean and granulating nicely. Patient is currently on TPN which tolerating well. In face of her short bowel syndrome patient will need TPN after discharge from the hospital. Grateful to case management for making arrangements for the same 06/22/16 Vital signs stable patient is doing well. Her appetite has improved and patient is taking good by mouth diet and having regular bowel movements. The abdominal incision is completely healed and fistula has completely resolved. The BKA wound VAC has been changed and wound is clean and granulating nicely. Qpitxv-y-Mgae is being used for additional parenteral feedings necessary and short bowel syndrome and patient will be discharged on TPN. 06/23/16 Patient underwent today change of the wound VAC and the wound is clean. Next with will be the last wound VAC change and after that I plan to take the patient to the OR for irrigation and closure of the wound by the middle of the next week. 06/24/16 Patient doing very well at this time she is in a good mood and taking by mouth diet well Unfortunately due to the short bowel syndrome she need supplemental TPN feedings at this time Stump is healed nicely there is a small scab anterior to it and this should allow to fall off on its own Once the arrangements are made for outpatient TPN patient will be able to be discharged Awaiting case management to make the arrangements for outpatient TPN 06/25/16 Vital signs stable Patient is awake and alert and oriented, taking by mouth diet very well Abdomen is soft and the colocutaneous fistula is completely closed The BKA stump has an eschar and a scab but I would leave this alone because underneath its healing nicely. Patient remains on TPN considering the short gut syndrome and will go home on the same Mild anemia is dilutional due to TPN administration and intravenous fluids and does not require therapy at this time 06/26/16 Vital signs stable Patient is awake and alert and oriented, taking by mouth diet very well Abdomen is soft and the colocutaneous fistula is completely closed The BKA stump has an eschar and a scab but I would leave this alone because underneath its healing nicely. Patient remains on TPN considering the short gut syndrome and will go home on the same Mild anemia is dilutional due to TPN administration and intravenous fluids and does not require therapy at this time 06/27/16 Wound VAC has been removed by me and the the entire stump is healed very nicely except a small area but an inch length at the very lateral portion of the incision were we going to put a very small wound VAC on for another week or so. Patient can transfer to rehabilitation at any time as long as she can get intravenous TPN in the process 06/28/16 Wound VAC has been removed by me and the the entire stump is healed very nicely except a small area but an inch length at the very lateral portion of the incision were we going to put a very small wound VAC on for another week or so. Patient can transfer to rehabilitation at any time as long as she can get intravenous TPN Patient will need continuous churn buttermaker TPN considering short gut syndrome and this can be done either in a correction or at home I suspect this will be about a six-month process and after that patient may not need additional feedings if we can get her in a reasonable nutritional status in the meantime. I understand the difficulty this creates for case management to find her such an arrangement 06/29/16 Patient doing really well at this time taking good by mouth but due to the short bowel syndrome will require long-term TPN Stump is healing really nicely and the probably after this week we will remove the wound VAC and simply place wet-to-dry dressing and allow this to heal 06/30/16 Patient is doing well tolerates diet. Abdomen is soft with active bowel sounds Incisions are clean and dry Wound VAC last change will be next week and after that we going to remove the wound VAC and continue wet-to-dry dressing Stump is healing really nicely Due to TPN and other issues placement remains a problem 07/01/16 Abdomen soft and active bowel sounds Tolerates diet well Stump is clean and dry and I'll remove the wound VAC on Sunday after that patient will just be on wet-to-dry dressings until the stump heels Arrangements for discharge to difficult due to long-term TPN needs 07/03/16 Vital signs stable Stump is clean and wound VAC after next removal won't need to be applied again Patient will remain long-term on TPN and I'm waiting for case management to make discharge arrangements Will [facility] medicine kindly if patient can be transferred to medicine service at this time 07/14/16 Patient is a placement issue apparently is still in the hospital The left BKA stump is healed nicely except for very small air about 1 cm which is granulating in on the lateral aspect of the stump Apparently the enterocutaneous fistula was close for about month and a half and opened up 2 days ago draining some stool It should be noted that the bowel is quite close to the skin and patient is very thin and malnourished so it is not surprising that fistula opens and closes sporadically. With enteral and parenteral nutrition that should close but clearly patient is very frail and it could open up any time Nothing to add to care at this time 07/26/16 Discussed the patient with medical attending. She has systemic cutaneous herpes zoster and is on appropriate medications The drainage from anterior abdominal wall is very minimal however irritating to the skin of the abdominal wall in face of herpes and the nature of intestinal fluid. Just putting dressings will only worsen the situation so patient should be treated with the stoma and coverage of the skin. Unfortunately the colostomy material will not stick to the skin and the contents will leak underneath it. At point is best solution was due to apply Silvadene ointment daily and then dressing Patient's appetite is very poor sure refuses food and she remains on TPN although her GI tract is completely patent Her prognosis in general is for due to malnutrition short bowel syndrome and immune failure. 09/01/16 Patient seen at [facility]. Patient has tremendously improved in the last month or so. The rash she had has since disappeared I am not sure this was a herpetic rash or perhaps caused by zinc or selenium deficiency At this point patient is eating well and she is again about 15 pounds. Her short bowel syndrome as being managed adequately with improvement of by mouth intake and modification of the diet Abdomen is soft with active bowel sounds and the fistula has closed There is small amount of preperitoneal fat extruding from the abdomen incision. I debrided this at the bedside In the worse case scenario patient would have to go to the operating room to have this cauterized away and reclosed but I would certainly like to avoid this in this lady was finally recovering nicely 11/20/16 Last night patient was straining when going to bathroom and enterocutaneous fistula opened up again Patient is now draining stool over the last 24 hours. 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 She underwent several surgeries and it is a miracle that patient has survived all this. The fistulous tract has now opened and closed about 5 times since September last year when patient's first came and this is now another instance of the same. As far as the fistulous tract is concerned this patient is not a candidate for an open surgery due to malnutrition, short bowel syndrome in the anatomic considerations. Going into this abdomen with resultant multiple fistulas, damage to the remaining small bowel and likely of the patient Therefore the appropriate way to manage this as conservatively filled the fistula tracts closes again Physical examination reveals skin inferior to the fistula to be starting to get red again and irritated although it was nicely healed as stated in above note It should be noted that this is distal small bowel content and therefore fairly caustic so meticulous care has to be taken not to allow this to be in contact with the skin On my arrival one part of the fistula in the midline is covered with a colostomy bag while the stool is freely draining all over the patient's abdomen between the legs and on the bed I went into the room ostomy nurse to come with me and removed personally everything cleaned patient up with nursing assistance I said down with the hospitality house supervisor and the nurse and explained in detail how this should be covered and how the stoma should be structured in order to protect the skin Apparently large pieces of stoma skin adhesive material are not available here and let to be brought from [facility]. The same large pieces were used when patient first came to [place] and care was described in orders At this point meticulous care has to be taken in order to prevent skin damage and free leakage It is also imperative that the wound care gets involved in management of this patient 10/30/16 Patient had the spike a fever today to 101.8 White count 16,000 Abdomen is soft with active bowel sounds and ileostomy is working very well Bilateral breath sounds and no rhonchi or rales Wound VAC has been changed today and I'll look to the wound leg really looks nice and healing very nicely with good granulation tissue No signs of dehiscence I believe the fever spikes are part of the fungemia and unfortunately 30-50% of patients will develop systemic fungemia in this setting will succumb to the same despite maximum therapy Patient remains on micafungin Continue care 10/31/16 Abdomen is soft and active bowel sounds and incision is nice and granulating underneath the wound VAC Ileostomy working fine White count is coming down and patient hasn't had any fever spikes since placed on Diflucan and micafungin Unfortunately patient refuses to eat and also refuses to get out of bed Physical therapy and occupational therapy of trying to mobilize the patient but she will not cooperate She also refuses to take by mouth diet but drinks high caloric supplements at least Respiratory-gillette patient is doing well throughout the day and then 2 in the evening her sats started dropping to again improve later on Will order ABGs and perhaps do a CAT scan of the chest to assess for any effusions or any other possible causes for this Again patient is very ill with fungemia which carries high mortality and ICU patient's especially with immunosuppression accompanying the clinical picture 08/22/17 I today patient is doing okay She doesn't want to take any by mouth diet except high caloric supplements Abdomen is soft active bowel sounds ileostomy and colostomy clean and midline wound is healing nicely with a the wound VAC Bilateral breath sounds decreased over the both lung chaney consistent with bilateral pulmonary consolidation unlikely mu onset lower lobe pneumonia Patient is unwilling to get out of bed and does not participate in physical occupational therapy rather chased some out of the room Discussed the care with her day light relief operator Mrs. 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 Currently on amphotericin B and antibiotics Patient is refusing any by mouth diet and is refusing to get out of bed She will developed pneumonia and and up on the respirator again if she continues to refuse activity Midline incision wound VAC has been changed and appears to be clean and granulating nicely Objective: Vital Signs Date Time Temp Pulse Resp B/P Pulse Ox O2 Delivery O2 Flow Rate FiO2 11/02/16 10:00 103 11/02/16 08:00 99.3 106 26 121/60 95 11/02/16 08:00 106 11/02/16 07:36 94 Partial Rebreather 11/02/16 07:00 94 Partial Non-Rebreather 15.00 11/02/16 06:00 111 11/02/16 04:37 22 11/02/16 04:00 105 11/02/16 04:00 100.1 117 22 165/75 95 11/02/16 02:00 105 11/02/16 00:00 105 11/02/16 00:00 98.9 107 22 149/82 97 11/01/16 22:00 105 11/01/16 20:52 98 Partial Rebreather 15.00 11/01/16 20:00 105 11/01/16 20:00 98.1 105 25 124/68 93 11/01/16 19:00 93 Partial Non-Rebreather 15.00 11/01/16 18:00 113 11/01/16 16:00 100.3 107 24 155/73 92 11/01/16 16:00 107 Labs: Laboratory Tests Test 11/02/16 06:00 White Blood Count 13.0 TH/MM3 (4.0-11.0) Red Blood Count 3.27 MIL/MM3 (4.00-5.30) Hemoglobin 9.1 GM/DL (11.6-15.3) Hematocrit 28.2 % (35.0-46.0) Mean Corpuscular Volume 86.3 FL (80.0-100.0) Mean Corpuscular Hemoglobin 27.7 PG (27.0-34.0) Mean Corpuscular Hemoglobin 32.1 % Concent (32.0-36.0) Red Cell Distribution Width 16.9 % (11.6-17.2) Platelet Count 242 TH/MM3 (150-450) Mean Platelet Volume 10.0 FL (7.0-11.0) Sodium Level 140 MEQ/L (136-145) Potassium Level 4.1 MEQ/L (3.5-5.1) Chloride Level 106 MEQ/L (98-107) Carbon Dioxide Level 27.3 MEQ/L (21.0-32.0) Anion Gap 7 MEQ/L (5-15) Blood Urea Nitrogen 22 MG/DL (7-18) Creatinine 0.82 MG/DL (0.50-1.00) Estimat Glomerular Filtration 69 ML/MIN (>89) Rate Random Glucose 266 MG/DL (74-106) Calcium Level 9.0 MG/DL (8.5-10.1) Total Bilirubin 2.4 MG/DL (0.2-1.0) Direct Bilirubin 1.9 MG/DL (0.0-0.2) Indirect Bilirubin 0.5 MG/DL (0.0-0.8) Aspartate Amino Transf 22 U/L (15-37) (AST/SGOT) Alanine Aminotransferase 17 U/L (10-53) (ALT/SGPT) Alkaline Phosphatase 196 U/L (45-117) Total Protein 7.0 GM/DL (6.4-8.2) Albumin 1.5 GM/DL (3.4-5.0) Result Diagram: 11/02/16 0600 11/02/16 0600 Janice Olvera MD Nov 02, 2016 16:01
--- NOTE | 2016-11-02 16:19 | RADRPT ---
EXAM DATE/TIME: 11/02/2016 15:20 [place] COMPARISON: CT ABDOMEN & PELVIS W CONTRAST, October 19, 2016, 15:10. INDICATIONS : Hepatosplenic candidiasis. IV CONTRAST: 60 cc Omnipaque 350 (iohexol) IV ORAL CONTRAST: No oral contrast ingested. RADIATION DOSE: 14.41 CTDIvol (mGy) MEDICAL HISTORY : Cardiovascular disease. Hypertension. SURGICAL HISTORY : None. ENCOUNTER: Initial ACUITY: 2 days PAIN SCALE: 7/10 LOCATION: Bilateral upper quadrant TECHNIQUE: Volumetric scanning of the abdomen was performed. Using automated exposure control and adjustment of the mA and/or kV according to patient size, radiation dose was kept as low as reasonably achievable to obtain optimal diagnostic quality images. FINDINGS: LOWER LUNGS: The imaged lung bases demonstrate bilateral small oral effusions with adjacent compressive atelectasi s. Not significantly changed as compared to the prior exam. The heart size is normal. No evidence of pericardial effusion. LIVER: Homogeneous density without lesion. There is no dilation of the biliary tree. Status post prior madai cystectomy. SPLEEN: Normal size without lesion. PANCREAS: Within normal limits. KIDNEYS: No evidence of hydronephrosis. Bilateral areas of cortical parenchymal thinning and scarring. No evid ence of stones. ADRENAL GLANDS: Within normal limits. AORTA/RETROPERITONEAL: There is no aneurysm or lymphadenopathy. BOWEL/MESENTERY: Stable appearance of right abdominal wall ileostomy. The previously noted 2 rim enhancing fluid colle ctions adjacent to the distal ileal loop are no longer visualized. There is a stable appearance of a left abdominal wall colostomy. Stable appearance of mesenteric fluid and mild asymmetric wall thicken ing identified within the small bowel loops which are closely adherent to the anterior abdominal wall mesh. This appearance is unchanged from prior exam and likely represent areas of adhesion. No eviden ce of bowel obstruction. ABDOMINAL WALL: Within normal limits. MUSCULOSKELETAL: Within normal limits for patient age. POST CONTRAST: No abnormal areas of enhancement are seen. CONCLUSION: No abnormalities are seen with respect to the liver or spleen. Previously noted small fluid collectio ns adjacent to the small bowel loops within the right lower quadrant are no longer present. The confi guration of the small bowel loops adjacent to the intra-abdominal wall at the site of mesh repair are consistent with areas of adhesion. No evidence of bowel obstruction.. Hoda Ash MD on November 02, 2016 at 16:10 Board Certified Radiologist. This report was verified electronically.
[2016-11-02] MEDS: FLUCONAZOLE 400 MG PREMIX BAG 200 ML IV SCH (18:14)
[2016-11-02] MEDS: CLINIMIX E 5/25 2000 mL- >42 mls/hr IV-CENTRAL SCH ×3 (19:38)
[2016-11-02] MEDS: MIRTAZAPINE ODT 15 MG TAB PO SCH (19:38)
--- NOTE | 2016-11-02 22:53 | HHI.IDPN ---
Subjective Subjective Remarks Delayed entry - pt was seen today around 4 pm cont to do poorly Remains febrile with persistent fungemia poor po was unable to drink contras 2/2 emesis Mny GNBs on sputum G stain CT A/P w/o e/o hepatosplenc candidiasis Previous fluid collections resolved Antibiotics fluconazol lip AMB vanco azctam Lines Port: removed Past Medical History 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 Vital Signs Date Time Temp Pulse Resp B/P Pulse Ox O2 Delivery O2 Flow Rate FiO2 11/02/16 21:03 95 Non-Rebreather 15.00 11/02/16 20:00 98.7 99 19 122/63 96 11/02/16 20:00 93 Partial Non-Rebreather 15.00 11/02/16 20:00 97 11/02/16 18:00 99 11/02/16 16:00 99.3 106 26 121/60 95 11/02/16 16:00 104 11/02/16 14:00 93 11/02/16 12:00 100 11/02/16 12:00 98.5 100 21 120/69 95 11/02/16 10:00 103 11/02/16 08:00 99.3 106 26 121/60 95 11/02/16 08:00 106 11/02/16 07:36 94 Partial Rebreather 11/02/16 07:00 94 Partial Non-Rebreather 15.00 11/02/16 06:00 111 11/02/16 04:37 22 11/02/16 04:00 105 11/02/16 04:00 100.1 117 22 165/75 95 11/02/16 02:00 105 11/02/16 00:00 105 11/02/16 00:00 98.9 107 22 149/82 97 11/01/16 11/01/16 11/02/16 15:00 23:00 07:00 Intake Total 1752 ml 1475 ml 1238 ml Output Total 1460 ml 1975 ml 1575 ml Balance 292 ml -500 ml -337 ml Intake Oral 90 ml 150 ml 50 ml IV Total 1116 ml 895 ml 735 ml TPN/PPN 546 ml 430 ml 453 ml Output Urine Total 400 ml 450 ml 550 ml Stool Total 1050 ml 1500 ml 1000 ml Drainage Total 10 ml 25 ml 25 ml . Laboratory Tests Test 11/01/16 11/02/16 05:00 06:00 White Blood Count 12.7 TH/MM3 13.0 TH/MM3 Red Blood Count 3.37 MIL/MM3 3.27 MIL/MM3 Hemoglobin 9.3 GM/DL 9.1 GM/DL Hematocrit 28.8 % 28.2 % Mean Corpuscular Volume 85.6 FL 86.3 FL Mean Corpuscular Hemoglobin 27.7 PG 27.7 PG Mean Corpuscular Hemoglobin 32.4 % 32.1 % Concent Red Cell Distribution Width 16.7 % 16.9 % Platelet Count 267 TH/MM3 242 TH/MM3 Mean Platelet Volume 9.8 FL 10.0 FL Laboratory Tests Test 11/01/16 11/02/16 05:00 06:00 Sodium Level 140 MEQ/L 140 MEQ/L Potassium Level 3.2 MEQ/L 4.1 MEQ/L Chloride Level 101 MEQ/L 106 MEQ/L Carbon Dioxide Level 31.6 MEQ/L 27.3 MEQ/L Anion Gap 7 MEQ/L 7 MEQ/L Blood Urea Nitrogen 23 MG/DL 22 MG/DL Creatinine 0.74 MG/DL 0.82 MG/DL Estimat Glomerular Filtration 78 ML/MIN 69 ML/MIN Rate Random Glucose 254 MG/DL 266 MG/DL Calcium Level 8.9 MG/DL 9.0 MG/DL Total Bilirubin 1.8 MG/DL 2.4 MG/DL Direct Bilirubin 1.3 MG/DL 1.9 MG/DL Indirect Bilirubin 0.5 MG/DL 0.5 MG/DL Aspartate Amino Transf 21 U/L 22 U/L (AST/SGOT) Alanine Aminotransferase 19 U/L 17 U/L (ALT/SGPT) Alkaline Phosphatase 177 U/L 196 U/L Total Protein 7.2 GM/DL 7.0 GM/DL Albumin 1.6 GM/DL 1.5 GM/DL Microbiology Date/Time Procedure Status Source Growth 10/31/16 03:35 Aerobic Blood Culture - Preliminary Resulted Blood Peripheral Nilson Parapsilosis 10/31/16 03:35 Anaerobic Blood Culture - Preliminary Resulted Blood Peripheral NO GROWTH IN 2 DAYS 10/31/16 03:35 Received Other Pending 10/31/16 03:44 Aerobic Blood Culture - Final Resulted Blood Peripheral Nilson Parapsilosis 10/31/16 03:44 Anaerobic Blood Culture - Preliminary Resulted Blood Peripheral NO GROWTH IN 2 DAYS 11/01/16 20:30 Gram Stain - Final Resulted Sputum Expectorated Sputum 11/01/16 20:30 Sputum Culture - Preliminary Resulted Gram Negative Jorge 11/01/16 20:30 Fungal Smear - Final Resulted Sputum Expectorated Sputum NO FUNGAL ELEMENTS SEEN. 11/01/16 20:30 Fungal Culture Resulted Sputum Expectorated Sputum Pending Imaging Last Impressions Chest X-Ray 11/01/16 0600 Signed Impressions: Service Date/Time: Tuesday, November 01, 2016 03:50 - CONCLUSION: 1. Interval development of bibasilar consolidation and minimal patchy density left upper lobe, likely pneumonia. 2. Cardiomegaly. Florian Pepper MD Abdomen CT 11/01/16 0000 Signed Impressions: Service Date/Time: October 15:20 - CONCLUSION: No abnormalities are seen with respect to the liver or spleen. Previously noted small fluid collections adjacent to the small bowel loops within the right lower quadrant are no longer present. The configuration of the small bowel loops adjacent to the intra-abdominal wall at the site of mesh repair are consistent with areas of adhesion. No evidence of bowel obstruction.. Hoda Ash MD Abdomen/Pelvis CT 10/19/16 0000 Signed Impressions: Service Date/Time: September 15:10 - CONCLUSION: 1. There are 2 small rim-enhancing fluid collections in the right mid abdomen adjacent to the distal ileum that extends into the ileostomy. These measure 2.6 x 1.3 cm and 2.1 x 1.6 cm. These could represent infected fluid collections but are too small to place a drainage catheter. There is an additional small subcapsular fluid collection along the anterior left lobe of the liver. 2. Additionally, there is wall thickening of the distal ileal loops along with marked mesenteric edema. 3. There is a small volume of free fluid in the left upper quadrant around the spleen and in the pelvis. 4. There is a new small left pleural effusion with compressive atelectasis and right lower lobe volume loss versus airspace consolidation. Calixto Uriostegui MD Liver Ultrasound 07/12/16 0000 Signed Impressions: Service Date/Time: Tuesday, July 12, 2016 18:07 - CONCLUSION: 1. No acute abnormality demonstrated. 2. Heterogeneous liver without measurable mass. 3. Small and heterogeneous spleen without a measurable mass. 4. Cortical thinning and scarring of the right kidney. 5. Previous cholecystectomy. Calixto Woodruff MD Chest CT 07/09/16 0000 Signed Impressions: Service Date/Time: Saturday, July 09, 2016 14:43 - CONCLUSION: 1. Small right pleural effusion and minimal right basilar consolidation. 2. 6 mm left basilar nodule. Followup CT chest 6 months recommended. Florian Pepper MD Lower Extremity Ultrasound 06/25/16 0000 Signed Impressions: Service Date/Time: Saturday, June 25, 2016 15:56 - CONCLUSION: Negative exam with no evidence of deep venous thrombosis. Soft tissue edema. Mike Leija MD Port Line Insertion 06/20/16 0000 Signed Impressions: Service Date/Time: Monday, June 20, 2016 08:53 - CONCLUSION: Uncomplicated ultrasound and fluoroscopic guided implanted central venous port catheter placement as described in detail above. An 8 [place] Power port was placed. Kevan Salgado Jr., MD Physical Exam CONSTITUTIONAL/GENERAL: fully awake and alert Conversant TUBES/LINES/DRAINS: [facility] [place] PORT incision is dry and clean at previous PORT site, no skin changes SKIN: No jaundice, rashes, or lesions. Skin temperature appropriate. Not diaphoretic. HEAD: Atraumatic. Normocephalic. EYES: Pupils equal and round and reactive. Extraocular motions intact. No scleral icterus. No injection or drainage. Fundi not examined. ENT: Oral mucosae without visible erythema, exudates, masses, or lesions. CARDIOVASCULAR: Regular rate and rhythm without murmurs, gallops, or rubs. No JVD. RESPIRATORY/CHEST: Symmetric, unlabored respirations. Clear to auscultation. Breath sounds equal bilaterally. No wheezes, rales, or rhonchi. GASTROINTESTINAL: Abdomen with VAC dressing in place serosang dc minimally distended quite tender to palpation + BS large amount of liquid brown stool from colostomy GENITOURINARY: Without palpable bladder distension. Hamlin catheter in place with clear yellow urine MUSCULOSKELETAL: Extremities without clubbing, cyanosis, 1+ edema. 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 fungal endocarditis - no e/o intraabdominal source of fungemia on CT FLoaters - no fungal endophthalmitis per ophthal eval Intraabd abscesses, small : poly Craig J: no clin significance Gram negative PNA , nosocomial - ho of ESBL organism earlier on this admission Prognosis is not good in the view of persistent infection poor overall performance status and TPN dependence RECOMMENDATION cont fluconazol cont AMB, liposomal - fu sensitivities on nilson rurepeat blood clx consider MELVA though given into fact that pt is not a candidate for cardiac surgery will defer the procedure for now Remove R SCV central line; needs central line - no PICC untill clears fungemia dc azactam/vanco start meropenem for GNB PNA (ASP : suspected ESBL, recent < 6 mos h/o ESBL org ) repeat [address] A/P to eval for hepatosplenic candidiasis sputum clx poly RN poly Craig, Roxana Oliveros MD Nov 02, 2016 22:53
--- NOTE | 2016-11-02 23:57 | HHI.PR ---
Subjective Remarks Patient seen today around 1 PM. Reports pain is controlled. Denies any chest pain or shortness of breath. She is alert and oriented 3. Objective Vital Signs Date Time Temp Pulse Resp B/P Pulse Ox O2 Delivery O2 Flow Rate FiO2 11/02/16 21:03 95 Non-Rebreather 15.00 11/02/16 20:00 98.7 99 19 122/63 96 11/02/16 20:00 93 Partial Non-Rebreather 15.00 11/02/16 20:00 97 11/02/16 18:00 99 11/02/16 16:00 99.3 106 26 121/60 95 11/02/16 16:00 104 11/02/16 14:00 93 11/02/16 12:00 100 11/02/16 12:00 98.5 100 21 120/69 95 11/02/16 10:00 103 11/02/16 08:00 99.3 106 26 121/60 95 11/02/16 08:00 106 11/02/16 07:36 94 Partial Rebreather 11/02/16 07:00 94 Partial Non-Rebreather 15.00 11/02/16 06:00 111 11/02/16 04:37 22 11/02/16 04:00 105 11/02/16 04:00 100.1 117 22 165/75 95 11/02/16 02:00 105 11/02/16 00:00 105 11/02/16 00:00 98.9 107 22 149/82 97 I/O 11/01/16 11/01/16 11/01/16 11/02/16 11/02/16 11/02/16 07:00 15:00 23:00 07:00 15:00 23:00 Intake Total 2724 ml 1752 ml 1475 ml 1238 ml 1614 ml Output Total 4075 ml 1460 ml 1975 ml 1575 ml 2150 ml Balance -1351 ml 292 ml -500 ml -337 ml -536 ml Intake Oral 90 ml 150 ml 50 ml 120 ml IV Total 1820 ml 1116 ml 895 ml 735 ml 1001 ml TPN/PPN 904 ml 546 ml 430 ml 453 ml 493 ml Output Urine Total 1050 ml 400 ml 450 ml 550 ml 400 ml Stool Total 3000 ml 1050 ml 1500 ml 1000 ml 1700 ml Drainage Total 25 ml 10 ml 25 ml 25 ml 50 ml Result Diagram: 11/02/16 0611/02/16 06 Objective Remarks GENERAL: lying in bed. appears comfortable. alert and oriented 3. SKIN: Warm and dry. HEAD: Normocephalic. EYES: No scleral icterus. No injection or drainage. NECK: Supple, trachea midline. No JVD. CARDIOVASCULAR: Regular rate and rhythm without murmurs, gallops, or rubs. RESPIRATORY: Breath sounds equal bilaterally. No accessory muscle use. GASTROINTESTINAL: right-sided Fistula with green/brown liquid stool, as before. Left-sided fistula with no significant output. No rebound or guarding.wound VAC in midline incision, recently replaced. MUSCULOSKELETAL: No cyanosis, or edema. BACK: Nontender without obvious deformity. No CVA tenderness. A/P Assessment and Plan ===== 11/02/16 -gram-negative sage on sputum culture. History ESBL.. start meropenem as per infectious disease. CT abdomen negative for acute findings. Ms. Wilson is a pleasant 71 year old female who was admitted to the hospital in Oct 2015 due to ischemic bowel and subsequently underwent resection of large , small bowel and cholecystectomy. 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 Patient was discharged to SNF but returned to the hospital due to post surgical complications. She underwent left foot amputation and subsequently had a lot of post surgical complications requiring wound vac. Her surgeon (Dr. Olvera) determined that patient was too high risk for further surgical intervention. Patient was on TPN and after discussing with Dr. Hill we switched patient to PO diet two days ago. Based on patient's desires, we spoke to Dr. Hill regarding a second surgical opinion. Dr. Hill was kind enough to consult Dr. Grajeda who evaluated patient on 10/07/2016. On 2015, patient was transferred to the main campus after she complained of severe abdominal pain and CT scan showed ischemic bowel. Due to septic shock, patient was started on Vancomycin and Cefepime prior to transfer. //Septic shock //Ischemic colitis //s/p Ex lap, resection of anterior abdominal wall fistula tract, resection of transverse colon to small bowel anastomosis, right sided ileostomy, left sided mucous fistula and partial removal of a ventral hernia mesh 10/08/16 -Cont Antibiotics as per Infectious disease - Echocardiogram cannot rule out vegetation. May need transesophageal echo, will defer to infectious disease.. -11/02. Sputum cultures ESBL positive. - Continue antimicrobials as per infectious disease. //COPD //Acute hypoxemic respiratory failure - s/p extubation on 10/10/2016. - Continue bronchodilators, Incentive spirometry. -On O2 5 L. Respiratory status stable. Monitor. //Acute kidney injury - resolved. Creatinine 2.70 ---> 0.78. - Kidney function stable. Continue monitor. //Acute blood loss anemia - s/p 4 units of PRBCs on 10/08/2016. - Hemoglobin continue stable. Monitor as necessary. -Hemoglobin stable. Continue to monitor. //Diabetes mellitus. -On TPN. Continue sliding scale. Full code. Xarelto. Protonix IV. Discharge Planning management in ICU. Jaden Marshall MD Nov 02, 2016 23:57 //Acute blood loss anemia - s/p 4 units of PRBCs on 10/08/2016. - Hemoglobin continue stable. Monitor as necessary. /-Acute anemia drop in hemoglobin 8.1.. - transfused 2 units 11/20. Hemoglobin 10. Monitor //Diabetes mellitus. -On TPN. Continue sliding scale. Full code. Xarelto. Protonix IV. Discharge Planning management in ICU. Jaden Marshall MD Nov 02, 2016 23:57 Jaden Marshall MD Nov 02, 2016 23:57
[2016-11-03] VITALS (14 sets, daily range): BP systolic 93–129; BP diastolic 55–62; PULSE 84–100; RESP 19–27; TEMP 97.1–98.9; O2SAT 97–99
[2016-11-03] MEDS: MEROPENEM INJ 1,000 MG in SODIUM CHLORIDE 0.9% INJ 100 ML IV SCH ×3 (04:56→20:37)
[2016-11-03] MEDS: OXYBUTYNIN CHLORIDE 5 MG TAB PO SCH ×3 (05:09→20:38)
[2016-11-03] MEDS: HYDROmorphone HCL PF 1 MG/ML VIAL IV PRN ×3 (06:39→18:18)
[2016-11-03] MEDS: INSULIN ASPART SUPPLEMENTAL SCALE SQ SCH ×4 (06:42→21:00)
[2016-11-03] MEDS: CHLORHEXIDINE 0.12% (ORAL KIT) 15 ML CUP MT SCH ×2 (08:00→20:00)
[2016-11-03] MEDS: FERROUS SULFATE 325 MG (65 MG ELEMENTAL IRON) TAB PO SCH (08:41)
[2016-11-03] MEDS: ZINC SULFATE 220 MG CAP PO SCH (08:41)
[2016-11-03] MEDS: CALCITRIOL 0.25 MCG CAP PO SCH (08:41)
[2016-11-03] MEDS: DULoxetine HCl DR 30 MG CAP PO SCH (08:41)
[2016-11-03] MEDS: NYSTATIN 100,000 U/GM PWD 15 GM BTL TOPICAL SCH ×2 (08:42→21:00)
[2016-11-03] MEDS: SODIUM CHLORIDE 0.9% FLUSH 5 ML FLUSH IVF SCH ×2 (08:42→21:19)
[2016-11-03] MEDS: RIVAROXABAN 15 MG TAB PO SCH (08:42)
[2016-11-03] MEDS: CALCIUM/VITAMIN D 250 MG/125 U TAB PO SCH ×2 (08:42→20:37)
[2016-11-03] MEDS: SODIUM CHLOR 0.9% 1000 ML INJ 1,000 ML IV SCH ×3 (08:42→20:00)
[2016-11-03] MEDS: CARVEDILOL 3.125 MG TAB PO SCH ×2 (08:53→20:37)
[2016-11-03] MEDS: HYDROmorphone HCL PF 2 MG/ML VIAL IV PRN (15:03)
[2016-11-03] MEDS: AMPHOTERICIN B LIPOSOME IV SCH ×2 (15:04)
[2016-11-03] MEDS: WATE IV SCH ×2 (15:04)
[2016-11-03] MEDS: DEXTROSE 5% IV SCH ×2 (15:04)
--- NOTE | 2016-11-03 15:48 | RADRPT ---
EXAM DATE/TIME: 11/03/2016 15:03 [facility] COMPARISON: CHEST SINGLE AP, November 01, 2016, 3:50. INDICATIONS : Central Line Placement. MEDICAL HISTORY : Cardiovascular disease. Hypertension. SURGICAL HISTORY : None. ENCOUNTER: Initial ACUITY: 1 day PAIN SCORE: 0/10 LOCATION: Bilateral chest FINDINGS: Right and left central venous catheters are noted. The left subclavian central venous catheter has be en placed since the prior study. There is no pneumothorax. There is overall improvement in lung aeration with clearing airspace disease in the bases. Patchy air space disease and interstitial prominence throughout remains evident. Heart and mediastinal structures are stable. CONCLUSION: Subclavian central venous catheter which is in good position. No evidence of pneumothorax. Improving lung aeration with decreasing congestion and bibasilar airspace disease. Kendall Lara MD on November 03, 2016 at 15:45 Board Certified Radiologist. This report was verified electronically.
[2016-11-03] MEDS: FLUCONAZOLE 400 MG PREMIX BAG 200 ML IV SCH (16:21)
--- NOTE | 2016-11-03 16:23 | HHI.HCPN ---
Reason for visit a. To assist with evaluation and management of symptoms including: Pain, anxiety, depression b. To assist medical decision maker(s) with: better understanding of current medical conditions; weighing benefits/burdens of medical treatment options; making medical treatment decisions. . Subjective/Interval History Patient has remained in ICU [status post emergency exploratory laparoscopy for ischemia/perforation-now with ileostomy, colostomy.] INTERVAL NOTE: The patient is on her Ventimask 50% today. When she takes it off, her oxygen saturation dropped to 88% in about 2 minutes, and then she put it back on. She feels weaker as time passes, she is taking essentially nothing orally now. Her white count remains 13.0. She has a low-grade fever every 24-36 hours. 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 Also has ESBL in sputum now. We had a long conversation about her continued decline, but continued fungemia, and the continued hypoxic respiratory failure. As she continues to get weaker, it is not clear that she is not going to improve and it is very unlikely that she will survive this. With that in mind, she told me that she has continued to consider her resuscitation status, and today she tells me there is no" fucking way" that I want to on a ventilator. She wants to now be changed to DNR status. . Advance Directives Living Will: Completed, but not made available Health Care Surrogate: Copy in medical record Durable Power of Tar Kettle Runner: Never completed Advance Directive Specifics Health Care Surrogate(s): Primary HCS is her close friend Anuradha Christian, and secondary is her Dwight Wilosn. The HCS that is in the record here is not dated. . Objective Vital Signs Date Time Temp Pulse Resp B/P Pulse Ox O2 Delivery O2 Flow Rate FiO2 11/03/16 14:00 86 11/03/16 12:00 98.4 90 27 120/62 97 11/03/16 12:00 90 11/03/16 10:00 87 11/03/16 08:00 98.2 91 26 110/55 98 11/03/16 08:00 91 11/03/16 07:00 98 Non-Rebreather 15.00 11/03/16 06:00 90 11/03/16 04:00 94 11/03/16 04:00 98.7 96 23 101/58 98 11/03/16 04:00 94 11/03/16 02:00 94 11/03/16 02:00 94 11/03/16 00:10 20 11/03/16 00:00 94 11/03/16 00:00 98.9 90 19 129/59 97 11/03/16 00:00 94 11/02/16 22:00 94 11/02/16 21:03 95 Non-Rebreather 15.00 11/02/16 20:00 98.7 99 19 122/63 96 11/02/16 20:00 93 Partial Non-Rebreather 15.00 11/02/16 20:00 97 11/02/16 18:00 99 Intake & Output 11/03/16 11/03/16 07:00 19:00 Intake Total 2160 ml 1175 ml Output Total 4150 ml 1875 ml Balance -1990 ml -700 ml Intake Oral 100 ml 120 ml IV Total 1060 ml 624 ml TPN/PPN 1000 ml 431 ml Output Urine Total 1800 ml 400 ml Stool Total 2300 ml 1450 ml Drainage Total 50 ml 25 ml Physical Exam CONSTITUTIONAL/GENERAL: chronically ill appearing very weak female. Lying in her bed. SKIN: Skin temperature appropriate. Not diaphoretic. Ileostomy, colostomy is noted patent. CARDIOVASCULAR: Regular rate and rhythm, no murmur. No JVD. RESPIRATORY/CHEST: Symmetric, unlabored respirations on ventimask. Decreased air movement throughout, with scattered rhonchi / diminished sounds. GASTROINTESTINAL: Soft, non-tender, bowel sounds active. Ileostomy and colostomy present. MUSCULOSKELETAL: Extremities without clubbing, cyanosis, or edema. Left Stump now well healed. No mottling or clubbing. NEUROLOGICAL: alert, conversant, oriented X 3. Appropriate. Has good insight into her decline and poor prognosis. Moves all 4 extremities generalized weakness, follows commands. PSYCHIATRIC: Not anxious or appearing depressed at this time. Appropriately tearful when discussing . . Diagnostic Tests Laboratory Laboratory Tests Test 10/31/16 11/01/16 11/02/16 18:15 05:00 06:00 Blood Gas Puncture Site RT RADIAL Blood Gas Patient Temperature 98.6 Blood Gas HCO3 31 mmol/L (22-26) Blood Gas Base Excess 7.1 mmol/L (-2-2) Blood Gas Oxygen Saturation 93 % (90-100) Arterial Blood pH 7.47 (7.380-7.420) Arterial Blood Partial 43 mmHg (38-42) Pressure CO2 Arterial Blood Partial 80 mmHg Pressure O2 (61-120) Arterial Blood Oxygen Content 12.7 Vol % (12.0-20.0) Arterial Blood 1.2 % (0-4) Carboxyhemoglobin Arterial Blood Methemoglobin 1.0 % (0-2) Blood Gas Hemoglobin 9.6 G/DL (12.0-16.0) Oxygen Delivery Device Partial Rebreather Blood Gas Liter Flow 15 L/M White Blood Count 12.7 TH/MM3 13.0 TH/MM3 (4.0-11.0) (4.0-11.0) Red Blood Count 3.37 MIL/MM3 3.27 MIL/MM3 (4.00-5.30) (4.00-5.30) Hemoglobin 9.3 GM/DL 9.1 GM/DL (11.6-15.3) (11.6-15.3) Hematocrit 28.8 % 28.2 % (35.0-46.0) (35.0-46.0) Mean Corpuscular Volume 85.6 FL 86.3 FL (80.0-100.0) (80.0-100.0) Mean Corpuscular Hemoglobin 27.7 PG 27.7 PG (27.0-34.0) (27.0-34.0) Mean Corpuscular Hemoglobin 32.4 % 32.1 % Concent (32.0-36.0) (32.0-36.0) Red Cell Distribution Width 16.7 % 16.9 % (11.6-17.2) (11.6-17.2) Platelet Count 267 TH/MM3 242 TH/MM3 (150-450) (150-450) Mean Platelet Volume 9.8 FL 10.0 FL (7.0-11.0) (7.0-11.0) Sodium Level 140 MEQ/L 140 MEQ/L (136-145) (136-145) Potassium Level 3.2 MEQ/L 4.1 MEQ/L (3.5-5.1) (3.5-5.1) Chloride Level 101 MEQ/L 106 MEQ/L (98-107) (98-107) Carbon Dioxide Level 31.6 MEQ/L 27.3 MEQ/L (21.0-32.0) (21.0-32.0) Anion Gap 7 MEQ/L (5-15) 7 MEQ/L (5-15) Blood Urea Nitrogen 23 MG/DL (7-18) 22 MG/DL (7-18) Creatinine 0.74 MG/DL 0.82 MG/DL (0.50-1.00) (0.50-1.00) Estimat Glomerular Filtration 78 ML/MIN (>89) 69 ML/MIN (>89) Rate Random Glucose 254 MG/DL 266 MG/DL (74-106) (74-106) Calcium Level 8.9 MG/DL 9.0 MG/DL (8.5-10.1) (8.5-10.1) Total Bilirubin 1.8 MG/DL 2.4 MG/DL (0.2-1.0) (0.2-1.0) Direct Bilirubin 1.3 MG/DL 1.9 MG/DL (0.0-0.2) (0.0-0.2) Indirect Bilirubin 0.5 MG/DL 0.5 MG/DL (0.0-0.8) (0.0-0.8) Aspartate Amino Transf 21 U/L (15-37) 22 U/L (15-37) (AST/SGOT) Alanine Aminotransferase 19 U/L (10-53) 17 U/L (10-53) (ALT/SGPT) Alkaline Phosphatase 177 U/L 196 U/L (45-117) (45-117) Total Protein 7.2 GM/DL 7.0 GM/DL (6.4-8.2) (6.4-8.2) Albumin 1.6 GM/DL 1.5 GM/DL (3.4-5.0) (3.4-5.0) Result Diagram: 11/02/16 0600 11/02/16 0600 Microbiology Microbiology Date/Time Procedure Status Source Growth 11/01/16 20:30 Gram Stain - Final Complete Sputum Expectorated Sputum 11/01/16 20:30 Sputum Culture - Final Complete Klebsiella Pneumoniae Esbl Pos 11/01/16 20:30 Fungal Smear - Final Resulted Sputum Expectorated Sputum NO FUNGAL ELEMENTS SEEN. 11/01/16 20:30 Fungal Culture Resulted Sputum Expectorated Sputum Pending Procedures Stump debridement and wound VAC placement 06/16/16 TPN Skin biopsies, face 07/24/16 Exploratory laparotomy, ileostomy, colostomy, bowel resection 10/08/16 . 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 No other specific skin pathology noted. . (9) pulmonary nodule on CT scan, 2.6 mm at the left base (10) depression (11) COPD, not oxygen dependent (12) history of breast cancer (13) anxiety (14) anemia Symptom Scale: (1) pain 0-10 Scale: 4 (she has been receiving Dilaudid ) Comment: Pain has been mostly abdominal pain,+ r/t dressing changes . (2) anxiety 0-10 Scale: 3 Comment: Well controlled with scheduled Cymbalta, Remeron (3) depression 0-10 Scale: 2 Comment: Reasonably well controlled with Cymbalta, Remeron (4) Malnutrition 0-10 Scale: Unable to quantify Comment: albumin 1.5, on TPN. Very poor oral intake (5) Dyspnea 0-10 Scale: Unable to quantify Comment: CXR +new pneumonia, + on/off NRB mask Pertinent Non-Medical Issues Psychosocial: Second marriage for about 1 year, but most of that time in the hospital or SNF. No children, but has close friend Anuradha. Spiritual: Evaluation pending Legal: The patient has capacity for decision-making, and has designated her friend Anuradha and her Dwight as primary and secondary HCS respectively Ethical issues impacting care: None. . Important Contacts Primary HCS, close friend Anuradha Christian [phone] : Dwight Wilson [phone] . Prognosis She has suffered multiple illnesses, infections, and complications during the last 10 months, and now has undergone emergency surgery for more ischemic bowel. Her overall prognosis remains somewhat poor, and she would be an appropriate hospice candidate if her proxy decision makers elected to transition to comfort care. . Code Status: No Code Plan == DO NOT RESUSCITATE, per patient request 11/03/16 == GOALS: The patient now requests AGGRESSIVE CARE short of resuscitation/code . The patient is very likely to continue to decline in spite of this ongoing aggressive care. == DECISION-MAKING: patient appears able to make her own decisions currently. HCS is her friend Anuradha Christian (primary) and her Dwight Wilson ( secondary) == SYMPTOMS: * Pain: s/p recent ex-lap surgery; still with some sharp, intermittent pain to mid abdomen--- receiving prn 0.5mg hydromorphone; requiring 3-4 doses a day most days; will add option for 1 mg dose.. * Anxiety/depression: She is appears stable/improved cymbalta, remeron. No obvious or reported anxiety, depression during interaction today. * malnutrition- on TNP, very poor oral intake. Taking ENsure only. Albumin 1.9 * dyspnea- bibasilar consolidation, LINDA pneumonia. Increased resp effort, req. NRB alternating w venturi mask. On mult abx, nebulizers. Ongoing discussions RE intubation/code status/treatment wishes w pt. == Palliative Care will continue to follow the patient during this hospitalization to further assist... . . Time Spent Total Floor Time (mins): 42 Face to Face Time (mins): 30 >50% Counseling/Coord of Care: Yes (d/w RN) Attestation To help prompt me to consider important information that might be impacting today's encounter and assessment, information from prior notes written by myself or my colleagues may have been "brought forward" into today's note. My signature on this note, however, is an attestation that I personally performed the exam, history, and/or decision-making noted today, and, unless otherwise indicated, the interactions with patient, family, and staff as well as the review of records all occurred today. I also attest that the listed assessment and stated plan reflect my best clinical judgment today based on the combination of historical information, prior notes, and today's exam/ interactions. When time spent is documented, it refers only to time spent today by the signer, or if indicated, combined time spent today by collaborating physician/nurse practitioner. Dalila Edouard MD Nov 03, 2016 16:23
--- NOTE | 2016-11-03 16:48 | HHI.IDPN ---
Subjective Subjective Remarks remains on NRB c/o chills minimal po stool up to 4000 /day UOP is adequate Antibiotics fluconazol lip AMB vanco azctam Lines Port: removed Past Medical History 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 Vital Signs Date Time Temp Pulse Resp B/P Pulse Ox O2 Delivery O2 Flow Rate FiO2 11/03/16 14:00 86 11/03/16 12:00 98.4 90 27 120/62 97 11/03/16 12:00 90 11/03/16 10:00 87 11/03/16 08:00 98.2 91 26 110/55 98 11/03/16 08:00 91 11/03/16 07:00 98 Non-Rebreather 15.00 11/03/16 06:00 90 11/03/16 04:00 94 11/03/16 04:00 98.7 96 23 101/58 98 11/03/16 04:00 94 11/03/16 02:00 94 11/03/16 02:00 94 11/03/16 00:10 20 11/03/16 00:00 94 11/03/16 00:00 98.9 90 19 129/59 97 11/03/16 00:00 94 11/02/16 22:00 94 11/02/16 21:03 95 Non-Rebreather 15.00 11/02/16 20:00 98.7 99 19 122/63 96 11/02/16 20:00 93 Partial Non-Rebreather 15.00 11/02/16 20:00 97 11/02/16 18:00 99 11/02/16 11/02/16 11/03/16 15:00 23:00 07:00 Intake Total 1614 ml 1177 ml 983 ml Output Total 2150 ml 2025 ml 2125 ml Balance -536 ml -848 ml -1142 ml Intake Oral 120 ml 50 ml 50 ml IV Total 1001 ml 650 ml 410 ml TPN/PPN 493 ml 477 ml 523 ml Output Urine Total 400 ml 1000 ml 800 ml Stool Total 1700 ml 1000 ml 1300 ml Drainage Total 50 ml 25 ml 25 ml . Laboratory Tests Test 11/02/16 06:00 White Blood Count 13.0 TH/MM3 Red Blood Count 3.27 MIL/MM3 Hemoglobin 9.1 GM/DL Hematocrit 28.2 % Mean Corpuscular Volume 86.3 FL Mean Corpuscular Hemoglobin 27.7 PG Mean Corpuscular Hemoglobin 32.1 % Concent Red Cell Distribution Width 16.9 % Platelet Count 242 TH/MM3 Mean Platelet Volume 10.0 FL Laboratory Tests Test 11/02/16 06:00 Sodium Level 140 MEQ/L Potassium Level 4.1 MEQ/L Chloride Level 106 MEQ/L Carbon Dioxide Level 27.3 MEQ/L Anion Gap 7 MEQ/L Blood Urea Nitrogen 22 MG/DL Creatinine 0.82 MG/DL Estimat Glomerular Filtration 69 ML/MIN Rate Random Glucose 266 MG/DL Calcium Level 9.0 MG/DL Total Bilirubin 2.4 MG/DL Direct Bilirubin 1.9 MG/DL Indirect Bilirubin 0.5 MG/DL Aspartate Amino Transf 22 U/L (AST/SGOT) Alanine Aminotransferase 17 U/L (ALT/SGPT) Alkaline Phosphatase 196 U/L Total Protein 7.0 GM/DL Albumin 1.5 GM/DL Microbiology Date/Time Procedure Status Source Growth 11/01/16 20:30 Gram Stain - Final Complete Sputum Expectorated Sputum 11/01/16 20:30 Sputum Culture - Final Complete Klebsiella Pneumoniae Esbl Pos 11/01/16 20:30 Fungal Smear - Final Resulted Sputum Expectorated Sputum NO FUNGAL ELEMENTS SEEN. 11/01/16 20:30 Fungal Culture Resulted Sputum Expectorated Sputum Pending Imaging Last Impressions Chest X-Ray 11/03/16 0000 Signed Impressions: Service Date/Time: Thursday, November 03, 2016 15:03 - CONCLUSION: Subclavian central venous catheter which is in good position. No evidence of pneumothorax. Improving lung aeration with decreasing congestion and bibasilar airspace disease. Kendall Lara MD Abdomen CT 11/01/16 0000 Signed Impressions: Service Date/Time: October 15:20 - CONCLUSION: No abnormalities are seen with respect to the liver or spleen. Previously noted small fluid collections adjacent to the small bowel loops within the right lower quadrant are no longer present. The configuration of the small bowel loops adjacent to the intra-abdominal wall at the site of mesh repair are consistent with areas of adhesion. No evidence of bowel obstruction.. Hoda Ash MD Abdomen/Pelvis CT 10/19/16 0000 Signed Impressions: Service Date/Time: September 15:10 - CONCLUSION: 1. There are 2 small rim-enhancing fluid collections in the right mid abdomen adjacent to the distal ileum that extends into the ileostomy. These measure 2.6 x 1.3 cm and 2.1 x 1.6 cm. These could represent infected fluid collections but are too small to place a drainage catheter. There is an additional small subcapsular fluid collection along the anterior left lobe of the liver. 2. Additionally, there is wall thickening of the distal ileal loops along with marked mesenteric edema. 3. There is a small volume of free fluid in the left upper quadrant around the spleen and in the pelvis. 4. There is a new small left pleural effusion with compressive atelectasis and right lower lobe volume loss versus airspace consolidation. Calixto Uriostegui MD Liver Ultrasound 07/12/16 0000 Signed Impressions: Service Date/Time: Tuesday, July 12, 2016 18:07 - CONCLUSION: 1. No acute abnormality demonstrated. 2. Heterogeneous liver without measurable mass. 3. Small and heterogeneous spleen without a measurable mass. 4. Cortical thinning and scarring of the right kidney. 5. Previous cholecystectomy. Calixto Woodruff MD Chest CT 07/09/16 0000 Signed Impressions: Service Date/Time: Saturday, July 09, 2016 14:43 - CONCLUSION: 1. Small right pleural effusion and minimal right basilar consolidation. 2. 6 mm left basilar nodule. Followup CT chest 6 months recommended. Florian Pepper MD Lower Extremity Ultrasound 06/25/16 0000 Signed Impressions: Service Date/Time: Saturday, June 25, 2016 15:56 - CONCLUSION: Negative exam with no evidence of deep venous thrombosis. Soft tissue edema. Mike Leija MD Port Line Insertion 06/20/16 0000 Signed Impressions: Service Date/Time: Monday, June 20, 2016 08:53 - CONCLUSION: Uncomplicated ultrasound and fluoroscopic guided implanted central venous port catheter placement as described in detail above. An 8 [place] Power port was placed. Kevan Salgado Jr., MD Physical Exam CONSTITUTIONAL/GENERAL: fully awake and alert ill appearing Conversant TUBES/LINES/DRAINS: R SCV cath in palce, site OK PORT incision is dry and clean at previous PORT site, no skin changes SKIN: No jaundice, rashes, or lesions. Skin temperature appropriate. Not diaphoretic. HEAD: Atraumatic. Normocephalic. EYES: Pupils equal and round and reactive. Extraocular motions intact. No scleral icterus. No injection or drainage. Fundi not examined. ENT: Oral mucosae without visible erythema, exudates, masses, or lesions. CARDIOVASCULAR: Regular rate and rhythm without murmurs, gallops, or rubs. No JVD. RESPIRATORY/CHEST: Symmetric, unlabored respirations. Clear to auscultation. Breath sounds equal bilaterally. No wheezes, rales, or rhonchi. GASTROINTESTINAL: Abdomen with VAC dressing in place serosang dc minimally distended quite tender to palpation + BS large amount of liquid brown stool from colostomy; old blood from mucoid fistula GENITOURINARY: Without palpable bladder distension. Hamlin catheter in place with clear yellow urine MUSCULOSKELETAL: Extremities without clubbing, cyanosis, No edema. 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 fungal endocarditis - no e/o intraabdominal source of fungemia on CT FLoaters - no fungal endophthalmitis per ophthal eval Intraabd abscesses, small : poly Hill: no clin significance nosocomial PNA , KLEBSIELLA PNEUMONIAE ESBL POS Prognosis is not good in the view of persistent infection poor overall performance status and TPN dependence RECOMMENDATION cont fluconazol cont AMB, liposomal - fu sensitivities on nilson fu repeat blood clx consider MELVA though given into fact that pt is not a candidate for cardiac surgery will defer the procedure for now R SCV central line; to be removed today - no PICC untill clears fungemia cont meropenem Kleb pneumo PNA (ASP : suspected ESBL, recent < 6 mos h/o ESBL org) fu 2 D echo results (completed 11/01) poly RN poly Craig, Roxana Oliveros MD Nov 03, 2016 16:48
[2016-11-03] MEDS: MIRTAZAPINE ODT 15 MG TAB PO SCH (20:39)
[2016-11-03] MEDS: CLINIMIX E 5/25 2000 mL- >42 mls/hr IV-CENTRAL SCH ×3 (20:39)
[2016-11-03] MEDS: HYDROmorphone HCL PF 1 MG/ML VIAL IV PUSH PRN (21:19)
--- NOTE | 2016-11-03 22:01 | ECHLIM ---
Study Study Date:11/03/2016 STUDY CONCLUSIONS SUMMARY - Procedure narrative: Transthoracic echocardiography. Image quality was fair. Scanning was performed from the parasternal, apical, and subcostal acoustic windows. - Left ventricle: The cavity size was normal. Wall thickness was normal. Systolic function was normal. The estimated ejection fraction was in the range of 55% to 60%. Although no diagnostic regional wall motion abnormality was identified, this possibility cannot be completely excluded on the basis of this study. - Mitral valve: Trace to mild regurgitation. - Tricuspid valve: Trace regurgitation. If LV function is below 40, please consider prescribing an ACEI or ARB or document rationale for non-use. PROCEDURE DATA STUDY STATUS: Elective. Procedure: Transthoracic echocardiography. Image quality was fair. Scanning was performed from the parasternal, apical, and subcostal acoustic windows. Study completion: The patient tolerated the procedure well. Transthoracic echocardiography. M-mode, complete 2D, complete spectral Doppler, and color Doppler. Patient status: Inpatient. CARDIAC ANATOMY LEFT VENTRICLE: The cavity size was normal. Wall thickness was normal. Systolic function was normal. The estimated ejection fraction was in the range of 55% to 60%. Although no diagnostic regional wall motion abnormality was identified, this possibility cannot be completely excluded on the basis of this study. AORTIC VALVE: Trileaflet; normal thickness leaflets. Doppler: Transvalvular velocity was within the normal range. There was no stenosis. No regurgitation. AORTA: Aortic root: The aortic root was normal in size. MITRAL VALVE: Structurally normal valve. Doppler: Transvalvular velocity was within the normal range. There was no evidence for stenosis. Trace to mild regurgitation. LEFT ATRIUM: The atrium was normal in size. RIGHT VENTRICLE: The cavity size was normal. Wall thickness was normal. PULMONIC VALVE: Doppler: Transvalvular velocity was within the normal range. There was no evidence for stenosis. No regurgitation. TRICUSPID VALVE: Structurally normal valve. Doppler: Transvalvular velocity was within the normal range. Trace regurgitation. PULMONARY ARTERY: The main pulmonary artery was normal-sized. Systolic pressure was within the normal range. RIGHT ATRIUM: The atrium was normal in size. PERICARDIUM: There was no pericardial effusion. SYSTEMIC VEINS: Inferior vena cava: The vessel was normal in size. Prepared and signed by Angel Luis Jennings [id number]
--- NOTE | 2016-11-03 23:39 | HHI.PR ---
Subjective Remarks Patient seen this afternoon around 3 PM. Patient reports that pain is under control. She denies any chest pain or shortness of breath. Denies any nausea or vomiting. Objective Vital Signs Date Time Temp Pulse Resp B/P Pulse Ox O2 Delivery O2 Flow Rate FiO2 11/03/16 22:00 91 11/03/16 21:27 98 Non-Rebreather 15.00 11/03/16 20:00 97.1 93 26 111/59 98 11/03/16 20:00 98 Non-Rebreather 15.00 11/03/16 20:00 90 11/03/16 18:00 100 11/03/16 16:00 97.6 84 22 93/55 97 11/03/16 16:00 84 11/03/16 14:00 86 11/03/16 12:48 99 Non-Rebreather 15.00 11/03/16 12:00 98.4 90 27 120/62 97 11/03/16 12:00 90 11/03/16 10:00 87 11/03/16 08:00 98.2 91 26 110/55 98 11/03/16 08:00 91 11/03/16 07:00 98 Non-Rebreather 15.00 11/03/16 06:00 90 11/03/16 04:00 94 11/03/16 04:00 98.7 96 23 101/58 98 11/03/16 04:00 94 11/03/16 02:00 94 11/03/16 02:00 94 11/03/16 00:10 20 11/03/16 00:00 94 11/03/16 00:00 98.9 90 19 129/59 97 11/03/16 00:00 94 I/O 11/02/16 11/02/16 11/02/16 11/03/16 11/03/16 11/03/16 07:00 15:00 23:00 07:00 15:00 23:00 Intake Total 1238 ml 1614 ml 1177 ml 983 ml 1175 ml 1254 ml Output Total 1575 ml 2150 ml 2025 ml 2125 ml 1875 ml 1450 ml Balance -337 ml -536 ml -848 ml -1142 ml -700 ml -196 ml Intake Oral 50 ml 120 ml 50 ml 50 ml 120 ml IV Total 735 ml 1001 ml 650 ml 410 ml 624 ml 769 ml TPN/PPN 453 ml 493 ml 477 ml 523 ml 431 ml 485 ml Output Urine Total 550 ml 400 ml 1000 ml 800 ml 400 ml 300 ml Stool Total 1000 ml 1700 ml 1000 ml 1300 ml 1450 ml 1150 ml Drainage Total 25 ml 50 ml 25 ml 25 ml 25 ml 0 ml Result Diagram: 11/02/16 0600 11/02/16 0600 Imaging Last Impressions Chest X-Ray 11/03/16 0000 Signed Impressions: Service Date/Time: Thursday, November 03, 2016 15:03 - CONCLUSION: Subclavian central venous catheter which is in good position. No evidence of pneumothorax. Improving lung aeration with decreasing congestion and bibasilar airspace disease. Kendall Lara MD Abdomen CT 11/01/16 0000 Signed Impressions: Service Date/Time: October 15:20 - CONCLUSION: No abnormalities are seen with respect to the liver or spleen. Previously noted small fluid collections adjacent to the small bowel loops within the right lower quadrant are no longer present. The configuration of the small bowel loops adjacent to the intra-abdominal wall at the site of mesh repair are consistent with areas of adhesion. No evidence of bowel obstruction.. Hoda Ash MD Abdomen/Pelvis CT 10/19/16 0000 Signed Impressions: Service Date/Time: September 15:10 - CONCLUSION: 1. There are 2 small rim-enhancing fluid collections in the right mid abdomen adjacent to the distal ileum that extends into the ileostomy. These measure 2.6 x 1.3 cm and 2.1 x 1.6 cm. These could represent infected fluid collections but are too small to place a drainage catheter. There is an additional small subcapsular fluid collection along the anterior left lobe of the liver. 2. Additionally, there is wall thickening of the distal ileal loops along with marked mesenteric edema. 3. There is a small volume of free fluid in the left upper quadrant around the spleen and in the pelvis. 4. There is a new small left pleural effusion with compressive atelectasis and right lower lobe volume loss versus airspace consolidation. Calixto Uriostegui MD Liver Ultrasound 07/12/16 0000 Signed Impressions: Service Date/Time: Tuesday, July 12, 2016 18:07 - CONCLUSION: 1. No acute abnormality demonstrated. 2. Heterogeneous liver without measurable mass. 3. Small and heterogeneous spleen without a measurable mass. 4. Cortical thinning and scarring of the right kidney. 5. Previous cholecystectomy. Calixto Woodruff MD Chest CT 07/09/16 0000 Signed Impressions: Service Date/Time: Saturday, July 09, 2016 14:43 - CONCLUSION: 1. Small right pleural effusion and minimal right basilar consolidation. 2. 6 mm left basilar nodule. Followup CT chest 6 months recommended. Florian Pepper MD Lower Extremity Ultrasound 06/25/16 0000 Signed Impressions: Service Date/Time: Saturday, June 25, 2016 15:56 - CONCLUSION: Negative exam with no evidence of deep venous thrombosis. Soft tissue edema. Mike Leija MD Port Line Insertion 06/20/16 0000 Signed Impressions: Service Date/Time: Monday, June 20, 2016 08:53 - CONCLUSION: Uncomplicated ultrasound and fluoroscopic guided implanted central venous port catheter placement as described in detail above. An 8 [employer] port was placed. Kevan Salgado Jr., MD Objective Remarks GENERAL: lying in bed. sleeping, wakes up for exam. appears comfortable. alert and oriented 3. SKIN: Warm and dry. HEAD: Normocephalic. EYES: No scleral icterus. No injection or drainage. NECK: Supple, trachea midline. No JVD. CARDIOVASCULAR: Regular rate and rhythm without murmurs, gallops, or rubs. RESPIRATORY: Breath sounds equal bilaterally. No accessory muscle use. GASTROINTESTINAL: right-sided Fistula with green/brown liquid stool, as before. Left-sided fistula with no significant output. No rebound or guarding.wound VAC in midline incision, no appreciable change. MUSCULOSKELETAL: No cyanosis, or edema. BACK: Nontender without obvious deformity. No CVA tenderness. A/P Assessment and Plan 11/03/16 -Vitals stable. -Blood culture continues positive for Danni parapsilosis. Repeat blood culture ordered. Central venous catheter removed. Tip culture pending. -Continue antibiotics as per infectious disease. Ms. Wilson is a pleasant 71 year old female who was admitted to the hospital in Oct 2015 due to ischemic bowel and subsequently underwent resection of large , small bowel and cholecystectomy. 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 Patient was discharged to SNF but returned to the hospital due to post surgical complications. She underwent left foot amputation and subsequently had a lot of post surgical complications requiring wound vac. Her surgeon (Dr. Olvera) determined that patient was too high risk for further surgical intervention. Patient was on TPN and after discussing with Dr. Hill we switched patient to PO diet two days ago. Based on patient's desires, we spoke to Dr. Hill regarding a second surgical opinion. Dr. Hill was kind enough to consult Dr. Grajeda who evaluated patient on 10/07/2016. On 2015, patient was transferred to the main campus after she complained of severe abdominal pain and CT scan showed ischemic bowel. Due to septic shock, patient was started on Vancomycin and Cefepime prior to transfer. //Septic shock //Ischemic colitis //s/p Ex lap, resection of anterior abdominal wall fistula tract, resection of transverse colon to small bowel anastomosis, right sided ileostomy, left sided mucous fistula and partial removal of a ventral hernia mesh 10/08/16 -Cont Antibiotics as per Infectious disease - Echocardiogram cannot rule out vegetation. May need transesophageal echo, will defer to infectious disease.. -11/02. Sputum cultures ESBL positive. - Continue antimicrobials as per infectious disease. //COPD //Acute hypoxemic respiratory failure - s/p extubation on 10/10/2016. - Continue bronchodilators, Incentive spirometry. -On O2 5 L. Respiratory status stable. Monitor. //Acute kidney injury - resolved. Creatinine 2.70 ---> 0.78. - Kidney function stable. Continue monitor. //Acute blood loss anemia - s/p 4 units of PRBCs on 10/08/2016. - Hemoglobin continue stable. Monitor as necessary. -Hemoglobin stable. Continue to monitor. //Diabetes mellitus. -On TPN. Continue sliding scale. Full code. //Prophylaxis. Xarelto. Protonix IV. Discharge Planning management in ICU. Jaden Marshall MD Nov 03, 2016 23:38 //Acute blood loss anemia - s/p 4 units of PRBCs on 10/08/2016. - Hemoglobin continue stable. Monitor as necessary. 10/23-Acute anemia drop in hemoglobin 8.1.. - transfused 2 units 11/20. Hemoglobin 10. Monitor //Diabetes mellitus. -On TPN. Continue sliding scale. Full code. Xarelto. Protonix IV. Discharge Planning management in ICU. Jaden Marshall MD Nov 03, 2016 23:38
[2016-11-04] VITALS (14 sets, daily range): BP systolic 97–131; BP diastolic 50–67; PULSE 86–109; RESP 13–26; TEMP 97.8–98.5; O2SAT 95–99
[2016-11-04] MEDS: HYDROmorphone HCL PF 1 MG/ML VIAL IV PUSH PRN ×4 (02:00→20:22)
[2016-11-04] MEDS: OXYBUTYNIN CHLORIDE 5 MG TAB PO SCH ×2 (04:59→20:21)
[2016-11-04] MEDS: MEROPENEM INJ 1,000 MG in SODIUM CHLORIDE 0.9% INJ 100 ML IV SCH (04:59)
[2016-11-04 05:52] LABS: BASOPHIL # 0.1 TH/MM3 (0-0.2); BASOPHIL % 1.3 % (0.0-2.0); EOSINOPHIL # 0.4 TH/MM3 (0-0.4); HEMATOCRIT 26.9 % (35.0-46.0); LYMPH % 30.7 % (9.0-44.0); LYMPHOCYTE # 2.9 TH/MM3 (1.0-4.8); MEAN CELL VOLUME 86.3 FL (80.0-100.0); MEAN CORPUSCULAR HEMOGLOBIN 27.8 PG (27.0-34.0); MEAN CORPUSCULAR HGB CONC 32.2 % (32.0-36.0); MONO % 11.6 % (0.0-8.0); NEUT % 52.4 % (16.0-70.0); PLATELET COUNT 246 TH/MM3 (150-450); RED BLOOD COUNT 3.12 MIL/MM3 (4.00-5.30); RED CELL DISTRIBUTION WIDTH 17.4 % (11.6-17.2); WHITE BLOOD COUNT 9.5 TH/MM3 (4.0-11.0)
[2016-11-04 06:06] LABS: BICARBONATE 32.2 MEQ/L (21.0-32.0); POTASSIUM 3.6 MEQ/L (3.5-5.1)
[2016-11-04] MEDS: INSULIN ASPART SUPPLEMENTAL SCALE SQ SCH ×2 (06:19→22:07)
[2016-11-04 06:22] LABS: HEMO FLAGS AUTO DIFF
[2016-11-04] MEDS ORDERED: SODIUM CHLORID 0.9% 500 ML INJ 500 ML IV ONE (09:00)
[2016-11-04] MEDS: CARVEDILOL 3.125 MG TAB PO SCH ×2 (09:00→20:21)
[2016-11-04 09:48] LABS: BANDS 15 % (0-6); EOSINOPHILS 1 % (0-4); NEUTROPHIL # MANUAL DIFF 6.2 TH/MM3 (1.8-7.7); PLATELET ESTIMATE SMEAR NORMAL (NORMAL); PLATELET MORPHOLOGY NORMAL (NORMAL); POLYS (SEG NEUTROPHILS) 50 % (16-70); SCAN/DIFF FINAL DIFF MANUAL; WBC DIFF SAMPLE 100
[2016-11-04] MEDS ORDERED: ASP: Documented ESBL, MDR A baumannii or P. aeruginosa XX PRN (11:30)
[2016-11-04] MEDS ORDERED: MISCELLANEOUS PHARMACY INFORMATION XX PRN (11:30)
[2016-11-04] MEDS ORDERED: PHARMACY ORDERED LAB XX ONE (12:45)
[2016-11-04] MEDS: ERTAPENEM INJ 1,000 MG in SODIUM CHLORIDE 0.9% INJ 100 ML IV SCH (13:19)
[2016-11-04] MEDS: WATE IV SCH ×2 (14:19)
[2016-11-04] MEDS: AMPHOTERICIN B LIPOSOME IV SCH ×2 (14:19)
[2016-11-04] MEDS: DEXTROSE 5% IV SCH ×2 (14:19)
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
[2016-11-04] MEDS: CHLORHEXIDINE 0.12% (ORAL KIT) 15 ML CUP MT SCH (20:00)
[2016-11-04] MEDS: CALCIUM/VITAMIN D 250 MG/125 U TAB PO SCH (20:22)
[2016-11-04] MEDS: NYSTATIN 100,000 U/GM PWD 15 GM BTL TOPICAL SCH (21:00)
[2016-11-04] MEDS: SODIUM CHLORIDE 0.9% FLUSH 5 ML FLUSH IVF SCH (21:00)
[2016-11-04] MEDS: MIRTAZAPINE ODT 15 MG TAB PO SCH (21:00)
[2016-11-04] MEDS: CLINIMIX E 5/25 2000 mL- >42 mls/hr IV-CENTRAL SCH ×3 (22:08)
--- NOTE | 2016-11-04 23:59 | HHI.PR ---
Subjective Remarks patient seen this afternoon around 5 PM. Patient says she is feeling much better. She denies any chest pain or shortness of breath. She reports abdominal pain is under control. Discussed with nursing. Poor appetite. No fevers. Objective Vital Signs Date Time Temp Pulse Resp B/P Pulse Ox O2 Delivery O2 Flow Rate FiO2 11/04/16 23:14 96 Nasal Cannula 6.00 11/04/16 22:00 89 11/04/16 20:00 98.0 94 19 111/56 95 11/04/16 20:00 95 Nasal Cannula 6.00 11/04/16 20:00 99 11/04/16 18:00 109 11/04/16 16:00 91 11/04/16 16:00 98.5 97 26 97/52 97 11/04/16 14:00 95 11/04/16 12:00 96 11/04/16 12:00 98.0 94 17 98/50 98 11/04/16 10:00 86 11/04/16 09:31 99 Non-Rebreather 15.00 100 11/04/16 08:00 94 11/04/16 08:00 98.0 90 13 131/67 96 11/04/16 07:00 98 Non-Rebreather 15.00 11/04/16 06:00 91 11/04/16 04:00 97.8 87 24 103/51 98 11/04/16 04:00 89 11/04/16 02:00 100 11/04/16 00:00 98 11/04/16 00:00 98.0 98 22 128/63 99 I/O 11/03/16 11/03/16 11/03/16 11/04/16 11/04/16 11/04/16 07:00 15:00 23:00 07:00 15:00 23:00 Intake Total 983 ml 1175 ml 1254 ml 1415 ml 1320 ml 985 ml Output Total 2125 ml 1875 ml 1450 ml 1050 ml 1350 ml 1450 ml Balance -1142 ml -700 ml -196 ml 365 ml -30 ml -465 ml Intake Oral 50 ml 120 ml 240 ml 200 ml 12 ml IV Total 410 ml 624 ml 769 ml 732 ml 750 ml 619 ml TPN/PPN 523 ml 431 ml 485 ml 443 ml 370 ml 354 ml Output Urine Total 800 ml 400 ml 300 ml 250 ml 425 ml 450 ml Stool Total 1300 ml 1450 ml 1150 ml 800 ml 900 ml 1000 ml Drainage Total 25 ml 25 ml 0 ml 0 ml 25 ml 0 ml Result Diagram: 11/04/16 0500 11/04/16 0500 Objective Remarks GENERAL: lying in bed. awake. appears comfortable. alert and oriented 3. SKIN: Warm and dry. HEAD: Normocephalic. EYES: No scleral icterus. No injection or drainage. NECK: Supple, trachea midline. No JVD. CARDIOVASCULAR: Regular rate and rhythm without murmurs, gallops, or rubs. RESPIRATORY: Breath sounds equal bilaterally. No accessory muscle use. GASTROINTESTINAL: right-sided Fistula with green/brown liquid stool, as before. Left-sided fistula with no significant output. No rebound or guarding.wound VAC in midline incision,no change today. MUSCULOSKELETAL: No cyanosis, or edema. BACK: Nontender without obvious deformity. No CVA tenderness. A/P Assessment and Plan 11/04/16 -Vitals stable. -continue antibiotics as per infectious disease. Ms. Wilson is a pleasant 71 year old female who was admitted to the hospital in Oct 2015 due to ischemic bowel and subsequently underwent resection of large , small bowel and cholecystectomy. 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 Patient was discharged to SNF but returned to the hospital due to post surgical complications. She underwent left foot amputation and subsequently had a lot of post surgical complications requiring wound vac. Her surgeon (Dr. Olvera) determined that patient was too high risk for further surgical intervention. Patient was on TPN and after discussing with Dr. Hill we switched patient to PO diet two days ago. Based on patient's desires, we spoke to Dr. Hill regarding a second surgical opinion. Dr. Hill was kind enough to consult Dr. Grajeda who evaluated patient on 10/07/2016. On 2015, patient was transferred to the main campus after she complained of severe abdominal pain and CT scan showed ischemic bowel. Due to septic shock, patient was started on Vancomycin and Cefepime prior to transfer. //Septic shock //Ischemic colitis //s/p Ex lap, resection of anterior abdominal wall fistula tract, resection of transverse colon to small bowel anastomosis, right sided ileostomy, left sided mucous fistula and partial removal of a ventral hernia mesh 10/08/16 -Cont Antibiotics as per Infectious disease - Echocardiogram cannot rule out vegetation. May need transesophageal echo, will defer to infectious disease.. -11/02. Sputum cultures ESBL positive. - Continue antimicrobials as per infectious disease. //COPD //Acute hypoxemic respiratory failure - s/p extubation on 10/10/2016. - Continue bronchodilators, Incentive spirometry. -On O2 5 L. Respiratory status stable. Monitor. //Acute kidney injury - resolved. Creatinine 2.70 ---> 0.78. - Kidney function stable. Continue monitor. //Acute blood loss anemia - s/p 4 units of PRBCs on 10/08/2016. - Hemoglobin continue stable. Monitor as necessary. -Hemoglobin stable. Continue to monitor. //Diabetes mellitus. -On TPN. Continue sliding scale. Full code. //Prophylaxis. Xarelto. Protonix IV. Discharge Planning management in ICU. Jaden Marshall MD Nov 04, 2016 23:59 - Kidney function stable. Continue monitor. //Acute blood loss anemia - s/p 4 units of PRBCs on 10/08/2016. - Hemoglobin continue stable. Monitor as necessary. 1/2-Acute anemia drop in hemoglobin 8.1.. - transfused 2 units 11/20. Hemoglobin 10. Monitor //Diabetes mellitus. -On TPN. Continue sliding scale. Full code. Xarelto. Protonix IV. Discharge Planning management in ICU. Jaden Marshall MD Nov 04, 2016 23:59
[2016-11-05] VITALS (13 sets, daily range): BP systolic 97–133; BP diastolic 52–66; PULSE 84–104; RESP 17–25; TEMP 97.9–98.5; O2SAT 93–99
[2016-11-05] MEDS: SODIUM CHLOR 0.9% 1000 ML INJ 1,000 ML IV SCH ×3 (02:30→20:41)
[2016-11-05] MEDS: HYDROmorphone HCL PF 1 MG/ML VIAL IV PUSH PRN ×5 (04:22→23:58)
[2016-11-05] MEDS: OXYBUTYNIN CHLORIDE 5 MG TAB PO SCH ×3 (04:22→21:36)
--- NOTE | 2016-11-05 05:02 | MP ---
cc: JANICE JOSE MD DATE OF SURGERY: 11/03/2016 PREOPERATIVE DIAGNOSIS Sepsis fungemia. POSTOPERATIVE DIAGNOSIS: Sepsis fungemia. PROCEDURE Triple and placement of left subclavian. SURGEON Dr. Jose ANESTHESIA 1% Xylocaine. ESTIMATED BLOOD LOSS: Minimal DESCRIPTION OF PROCEDURE: The patient was prepped and draped in the usual fashion. The area was infiltrated with 1% Xylocaine. The needle was inserted in the left subclavian vein. Through the needle a J-wire was passed. Over the J-wire dilator and triple-lumen placed. Triple lumen sutured with 2-0 silk. Chest x-ray obtained. Janice MÉNDEZ/ROSHAN /3:13 PM /4:22 AM
[2016-11-05 05:21] LABS: AUTOMATED NEUTROPHIL # 3.6 TH/MM3 (1.8-7.7); BASOPHIL # 0.1 TH/MM3 (0-0.2); BASOPHIL % 1.3 % (0.0-2.0); EOSINOPHIL # 0.4 TH/MM3 (0-0.4); EOSINOPHIL % 4.9 % (0.0-4.0); HEMATOCRIT 25.8 % (35.0-46.0); HEMO FLAGS DIFF FINAL; LYMPHOCYTE # 3.4 TH/MM3 (1.0-4.8); MEAN CELL VOLUME 86.1 FL (80.0-100.0); MEAN CORPUSCULAR HEMOGLOBIN 28.1 PG (27.0-34.0); MEAN CORPUSCULAR HGB CONC 32.6 % (32.0-36.0); MONO % 9.6 % (0.0-8.0); NEUT % 43.2 % (16.0-70.0); PLATELET COUNT 259 TH/MM3 (150-450); RED CELL DISTRIBUTION WIDTH 17.5 % (11.6-17.2); WHITE BLOOD COUNT 8.4 TH/MM3 (4.0-11.0)
[2016-11-05 05:37] LABS: BICARBONATE 32.3 MEQ/L (21.0-32.0); POTASSIUM 3.4 MEQ/L (3.5-5.1)
[2016-11-05] MEDS: INSULIN ASPART SUPPLEMENTAL SCALE SQ SCH ×4 (06:19→21:35)
[2016-11-05] MEDS: CHLORHEXIDINE 0.12% (ORAL KIT) 15 ML CUP MT SCH ×2 (08:00→20:00)
[2016-11-05] MEDS: SODIUM CHLORIDE 0.9% FLUSH 5 ML FLUSH IVF SCH ×2 (09:00→20:20)
[2016-11-05] MEDS: NYSTATIN 100,000 U/GM PWD 15 GM BTL TOPICAL SCH ×2 (09:00→20:21)
[2016-11-05] MEDS: ZINC SULFATE 220 MG CAP PO SCH (09:02)
[2016-11-05] MEDS: DULoxetine HCl DR 30 MG CAP PO SCH (09:03)
[2016-11-05] MEDS: RIVAROXABAN 15 MG TAB PO SCH (09:03)
[2016-11-05] MEDS: CALCITRIOL 0.25 MCG CAP PO SCH (09:03)
[2016-11-05] MEDS: CARVEDILOL 3.125 MG TAB PO SCH ×2 (09:03→20:20)
[2016-11-05] MEDS: CALCIUM/VITAMIN D 250 MG/125 U TAB PO SCH ×2 (09:03→20:20)
[2016-11-05] MEDS: FERROUS SULFATE 325 MG (65 MG ELEMENTAL IRON) TAB PO SCH (09:03)
[2016-11-05] MEDS: ICU - POTASSIUM CHLORIDE/AQUEOUS SOLN 40 MEQ/100 ML IVPB IV PRN (09:04)
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
[2016-11-05] MEDS: ERTAPENEM INJ 1,000 MG in SODIUM CHLORIDE 0.9% INJ 100 ML IV SCH (12:28)
[2016-11-05] MEDS: AMPHOTERICIN B LIPOSOME IV SCH ×2 (14:59)
[2016-11-05] MEDS: DEXTROSE 5% IV SCH ×2 (14:59)
[2016-11-05] MEDS: WATE IV SCH ×2 (14:59)
[2016-11-05] MEDS: FLUCONAZOLE 400 MG PREMIX BAG 200 ML IV SCH ×2 (16:04→16:07)
[2016-11-05] MEDS: FAT EMULSION 20% INJ 250 ML (Twice weekly over 8 hours) IV-CENTRAL SCH (20:19)
[2016-11-05] MEDS: MIRTAZAPINE ODT 15 MG TAB PO SCH (20:20)
[2016-11-05] MEDS: CLINIMIX E 5/25 2000 mL- >42 mls/hr IV-CENTRAL SCH ×3 (20:40)
--- NOTE | 2016-11-05 23:03 | HHI.PR ---
Subjective Remarks patient seen and examined around 4 PM. She says she is feeling well today. Reports pain is under control. no fevers. Continuing antibiotics as per infectious disease. Hyperkalemia. 3.4. Mild. Monitor. Objective Vital Signs Date Time Temp Pulse Resp B/P Pulse Ox O2 Delivery O2 Flow Rate FiO2 11/05/16 20:43 93 Nasal Cannula 5.00 11/05/16 19:00 94 Nasal Cannula 5.00 11/05/16 18:00 88 11/05/16 16:00 94 11/05/16 16:00 98.5 94 18 128/59 99 11/05/16 14:00 90 11/05/16 12:00 96 11/05/16 12:00 98.3 95 25 97/53 95 11/05/16 10:00 95 11/05/16 08:09 96 Nasal Cannula 6.00 11/05/16 08:00 93 11/05/16 08:00 98.1 92 19 127/58 96 11/05/16 07:00 96 Nasal Cannula 4.00 11/05/16 06:00 95 11/05/16 05:00 96 Nasal Cannula 5.00 11/05/16 04:00 97.9 104 17 106/52 94 11/05/16 04:00 104 11/05/16 00:00 92 11/05/16 00:00 92 20 115/56 94 11/04/16 23:14 96 Nasal Cannula 6.00 I/O 11/04/16 11/04/16 11/04/16 11/05/16 11/05/16 11/05/16 07:00 15:00 23:00 07:00 15:00 23:00 Intake Total 1415 ml 1320 ml 985 ml 1156 ml 1320 ml Output Total 1050 ml 1350 ml 1450 ml 1450 ml 2100 ml Balance 365 ml -30 ml -465 ml -294 ml -780 ml Intake Oral 240 ml 200 ml 12 ml 60 ml 120 ml IV Total 732 ml 750 ml 619 ml 685 ml 700 ml TPN/PPN 443 ml 370 ml 354 ml 411 ml 500 ml Output Urine Total 250 ml 425 ml 450 ml 450 ml 600 ml Stool Total 800 ml 900 ml 1000 ml 1000 ml 1500 ml Drainage Total 0 ml 25 ml 0 ml 0 ml 0 ml Result Diagram: 11/05/16 0430 11/05/16 0430 Objective Remarks GENERAL: lying in bed. sleeping, wakes up for exam. appears comfortable. alert and oriented 3. SKIN: Warm and dry. HEAD: Normocephalic. EYES: No scleral icterus. No injection or drainage. NECK: Supple, trachea midline. No JVD. CARDIOVASCULAR: Regular rate and rhythm without murmurs, gallops, or rubs. RESPIRATORY: Breath sounds equal bilaterally. No accessory muscle use. GASTROINTESTINAL: right-sided Fistula with green/brown liquid stool, as before. Left-sided fistula with no significant output. No rebound or guarding.wound VAC in midline incision,no change. MUSCULOSKELETAL: No cyanosis, or edema. BACK: Nontender without obvious deformity. No CVA tenderness. A/P Assessment and Plan 11/05/16 mild hyperkalemia. Monitor. continue antibiotics as per infectious disease.Appreciate assistance. Ms. Wilson is a pleasant 71 year old female who was admitted to the hospital in Oct 2015 due to ischemic bowel and subsequently underwent resection of large , small bowel and cholecystectomy. 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 Patient was discharged to SNF but returned to the hospital due to post surgical complications. She underwent left foot amputation and subsequently had a lot of post surgical complications requiring wound vac. Her surgeon (Dr. Olvera) determined that patient was too high risk for further surgical intervention. Patient was on TPN and after discussing with Dr. Hill we switched patient to PO diet two days ago. Based on patient's desires, we spoke to Dr. Hill regarding a second surgical opinion. Dr. Hill was kind enough to consult Dr. Grajeda who evaluated patient on 10/07/2016. On 2015, patient was transferred to the main campus after she complained of severe abdominal pain and CT scan showed ischemic bowel. Due to septic shock, patient was started on Vancomycin and Cefepime prior to transfer. //Septic shock //Ischemic colitis //s/p Ex lap, resection of anterior abdominal wall fistula tract, resection of transverse colon to small bowel anastomosis, right sided ileostomy, left sided mucous fistula and partial removal of a ventral hernia mesh 10/08/16 -Cont Antibiotics as per Infectious disease - Echocardiogram cannot rule out vegetation. May need transesophageal echo, will defer to infectious disease.. -11/02. Sputum cultures ESBL positive. - Continue antimicrobials as per infectious disease. //COPD //Acute hypoxemic respiratory failure - s/p extubation on 10/10/2016. - Continue bronchodilators, Incentive spirometry. -On O2 5 L. Respiratory status stable. Monitor. //Acute kidney injury - resolved. Creatinine 2.70 ---> 0.78. - Kidney function stable. Continue monitor. //Acute blood loss anemia - s/p 4 units of PRBCs on 10/08/2016. - Hemoglobin continue stable. Monitor as necessary. -Hemoglobin stable. Continue to monitor. //Diabetes mellitus. -On TPN. Continue sliding scale. Full code. //Prophylaxis. Xarelto. Protonix IV. Discharge Planning management in ICU. Jaden Marshall MD Nov 05, 2016 23:03 //Acute blood loss anemia - s/p 4 units of PRBCs on 10/08/2016. - Hemoglobin continue stable. Monitor as necessary. 1/2-Acute anemia drop in hemoglobin 8.1.. - transfused 2 units 11/20. Hemoglobin 10. Monitor //Diabetes mellitus. -On TPN. Continue sliding scale. Full code. Xarelto. Protonix IV. Discharge Planning management in ICU. Jaden Marshall MD Nov 05, 2016 23:03
[2016-11-06] VITALS (16 sets, daily range): BP systolic 106–141; BP diastolic 56–75; PULSE 81–96; RESP 12–25; TEMP 97.8–98.8; O2SAT 88–94
[2016-11-06] MEDS: HYDROmorphone HCL PF 1 MG/ML VIAL IV PUSH PRN ×2 (02:53→05:59)
[2016-11-06] MEDS: OXYBUTYNIN CHLORIDE 5 MG TAB PO SCH ×3 (05:59→22:00)
[2016-11-06] MEDS: INSULIN ASPART SUPPLEMENTAL SCALE SQ SCH ×4 (07:00→21:00)
[2016-11-06] MEDS: CHLORHEXIDINE 0.12% (ORAL KIT) 15 ML CUP MT SCH ×2 (08:00→20:00)
[2016-11-06 08:11] LABS: HEMATOCRIT 25.9 % (35.0-46.0); MEAN CELL VOLUME 86.5 FL (80.0-100.0); MEAN CORPUSCULAR HEMOGLOBIN 28.3 PG (27.0-34.0); MEAN CORPUSCULAR HGB CONC 32.7 % (32.0-36.0); PLATELET COUNT 304 TH/MM3 (150-450); RED CELL DISTRIBUTION WIDTH 17.5 % (11.6-17.2); REVIEW FLAG FINAL; WHITE BLOOD COUNT 8.9 TH/MM3 (4.0-11.0)
[2016-11-06 08:26] LABS: BICARBONATE 33.3 MEQ/L (21.0-32.0); POTASSIUM 3.5 MEQ/L (3.5-5.1)
[2016-11-06] MEDS: SODIUM CHLOR 0.9% 1000 ML INJ 1,000 ML IV SCH ×2 (08:32→16:26)
[2016-11-06] MEDS: HYDROmorphone HCL PF 1 MG/ML VIAL IV PRN ×5 (09:11→22:30)
[2016-11-06] MEDS: CALCITRIOL 0.25 MCG CAP PO SCH (09:12)
[2016-11-06] MEDS: ZINC SULFATE 220 MG CAP PO SCH (09:12)
[2016-11-06] MEDS: CARVEDILOL 3.125 MG TAB PO SCH ×2 (09:12→21:00)
[2016-11-06] MEDS: DULoxetine HCl DR 30 MG CAP PO SCH (09:12)
[2016-11-06] MEDS: RIVAROXABAN 20 MG TAB PO SCH (09:12)
[2016-11-06] MEDS: NYSTATIN 100,000 U/GM PWD 15 GM BTL TOPICAL SCH ×2 (09:12→21:00)
[2016-11-06] MEDS: SODIUM CHLORIDE 0.9% FLUSH 5 ML FLUSH IVF SCH ×2 (09:12→21:00)
[2016-11-06] MEDS: FERROUS SULFATE 325 MG (65 MG ELEMENTAL IRON) TAB PO SCH (09:12)
[2016-11-06] MEDS: CALCIUM/VITAMIN D 250 MG/125 U TAB PO SCH ×2 (09:12→21:00)
[2016-11-06] MEDS: ERTAPENEM INJ 1,000 MG in SODIUM CHLORIDE 0.9% INJ 100 ML IV SCH (11:16)
[2016-11-06] MEDS: ONDANSETRON HCL 4 MG/2 ML VIAL IV PUSH PRN (13:16)
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
[2016-11-06] MEDS: DEXTROSE 5% IV SCH ×2 (15:44)
[2016-11-06] MEDS: WATE IV SCH ×2 (15:44)
[2016-11-06] MEDS: AMPHOTERICIN B LIPOSOME IV SCH ×2 (15:44)
[2016-11-06] MEDS: FLUCONAZOLE 400 MG PREMIX BAG 200 ML IV SCH (16:26)
[2016-11-06] MEDS: CLINIMIX E 5/25 2000 mL- >42 mls/hr IV-CENTRAL SCH ×3 (20:00)
[2016-11-06] MEDS: MIRTAZAPINE ODT 15 MG TAB PO SCH (21:00)
--- NOTE | 2016-11-06 21:18 | HHI.PR ---
Subjective Remarks patient seen today around 5 PM. She says that pain is controlled. She denies any chest pain or shortness of breath. No fevers. hyperkalemia resolved. Objective Vital Signs Date Time Temp Pulse Resp B/P Pulse Ox O2 Delivery O2 Flow Rate FiO2 11/06/16 20:41 93 Nasal Cannula 5.00 11/06/16 18:00 89 11/06/16 16:00 89 11/06/16 16:00 97.8 86 12 141/65 94 11/06/16 14:00 81 11/06/16 12:29 94 Nasal Cannula 5.00 11/06/16 12:00 88 11/06/16 12:00 98.0 88 14 118/56 93 11/06/16 10:00 86 11/06/16 08:00 84 11/06/16 08:00 98.0 84 25 116/56 90 11/06/16 07:46 88 Nasal Cannula 5.00 11/06/16 07:00 91 Nasal Cannula 5.00 11/06/16 06:00 86 11/06/16 04:00 98.0 86 16 106/75 92 11/06/16 04:00 90 11/06/16 02:33 94 Nasal Cannula 5.00 11/06/16 02:00 90 11/06/16 00:00 97.8 96 24 137/66 93 11/06/16 00:00 96 11/05/16 22:00 84 I/O 11/05/16 11/05/16 11/05/16 11/06/16 11/06/16 11/06/16 07:00 15:00 23:00 07:00 15:00 23:00 Intake Total 1156 ml 1320 ml 1637 ml 1862 ml 1696 ml Output Total 1450 ml 2100 ml 1890 ml 1808 ml 1350 ml Balance -294 ml -780 ml -253 ml 54 ml 346 ml Intake Oral 60 ml 120 ml 400 ml 250 ml 300 ml IV Total 685 ml 700 ml 678 ml 850 ml 862 ml TPN/PPN 411 ml 500 ml 402 ml 512 ml 534 ml Lipid 157 ml 250 ml 0 ml Output Urine Total 450 ml 600 ml 575 ml 500 ml 350 ml Stool Total 1000 ml 1500 ml 1305 ml 1303 ml 1000 ml Drainage Total 0 ml 0 ml 10 ml 5 ml 0 ml Result Diagram: 11/06/16 0747 11/06/16 0747 Objective Remarks GENERAL: lying in bed. awake, alert.. appears comfortable. alert and oriented 3. SKIN: Warm and dry. HEAD: Normocephalic. EYES: No scleral icterus. No injection or drainage. NECK: Supple, trachea midline. No JVD. CARDIOVASCULAR: Regular rate and rhythm without murmurs, gallops, or rubs. RESPIRATORY: Breath sounds equal bilaterally. No accessory muscle use. GASTROINTESTINAL: right-sided Fistula with green/brown liquid stool, as before. Left-sided fistula with no significant output. No rebound or guarding.wound VAC in midline incision. Again, no change. MUSCULOSKELETAL: No cyanosis, or edema. BACK: Nontender without obvious deformity. No CVA tenderness. A/P Assessment and Plan 11/06/16 hypokalemia resolved Continue antibiotics as per infectious disease. Ms. Wilson is a pleasant 71 year old female who was admitted to the hospital in Oct 2015 due to ischemic bowel and subsequently underwent resection of large , small bowel and cholecystectomy. 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 Patient was discharged to SNF but returned to the hospital due to post surgical complications. She underwent left foot amputation and subsequently had a lot of post surgical complications requiring wound vac. Her surgeon (Dr. Olvera) determined that patient was too high risk for further surgical intervention. Patient was on TPN and after discussing with Dr. Hill we switched patient to PO diet two days ago. Based on patient's desires, we spoke to Dr. Hill regarding a second surgical opinion. Dr. Hill was kind enough to consult Dr. Grajeda who evaluated patient on 10/07/2016. On 2015, patient was transferred to the main campus after she complained of severe abdominal pain and CT scan showed ischemic bowel. Due to septic shock, patient was started on Vancomycin and Cefepime prior to transfer. //Septic shock //Ischemic colitis //s/p Ex lap, resection of anterior abdominal wall fistula tract, resection of transverse colon to small bowel anastomosis, right sided ileostomy, left sided mucous fistula and partial removal of a ventral hernia mesh 10/08/16 -Cont Antibiotics as per Infectious disease - Echocardiogram cannot rule out vegetation. May need transesophageal echo, will defer to infectious disease.. -11/02. Sputum cultures ESBL positive. - Continue antimicrobials as per infectious disease. //COPD //Acute hypoxemic respiratory failure - s/p extubation on 10/10/2016. - Continue bronchodilators, Incentive spirometry. -On O2 5 L. Respiratory status stable. Monitor. //Acute kidney injury - resolved. Creatinine 2.70 ---> 0.78. - Kidney function stable. Continue monitor. //Acute blood loss anemia - s/p 4 units of PRBCs on 10/08/2016. - Hemoglobin continue stable. Monitor as necessary. -Hemoglobin stable. Continue to monitor. //Diabetes mellitus. -On TPN. Continue sliding scale. Full code. //Prophylaxis. Xarelto. Protonix IV. Discharge Planning management in ICU. Jaden Marshall MD Nov 06, 2016 21:18 //Acute blood loss anemia - s/p 4 units of PRBCs on 10/08/2016. - Hemoglobin continue stable. Monitor as necessary. 1/2-Acute anemia drop in hemoglobin 8.1.. - transfused 2 units 11/20. Hemoglobin 10. Monitor //Diabetes mellitus. -On TPN. Continue sliding scale. Full code. Xarelto. Protonix IV. Discharge Planning management in ICU. Jaden Marshall MD Nov 06, 2016 21:18
[2016-11-07] VITALS: BP 103/57; PULSE 88; RESP 18; TEMP 98.7; O2SAT 94
[2016-11-07 04:00] VITALS: BP 110/54; PULSE 95; RESP 18; TEMP 97.7; O2SAT 95
[2016-11-07] MEDS: SODIUM CHLOR 0.9% 1000 ML INJ 1,000 ML IV SCH ×2 (04:54→12:15)
[2016-11-07] MEDS: HYDROmorphone HCL PF 1 MG/ML VIAL IV PUSH PRN ×5 (04:55→21:47)
[2016-11-07] MEDS: OXYBUTYNIN CHLORIDE 5 MG TAB PO SCH ×3 (04:55→21:43)
[2016-11-07] MEDS: INSULIN ASPART SUPPLEMENTAL SCALE SQ SCH ×4 (04:55→21:47)
[2016-11-07 08:00] VITALS: BP 105/53; PULSE 96; RESP 17; TEMP 99.6; O2SAT 95
[2016-11-07] MEDS: CHLORHEXIDINE 0.12% (ORAL KIT) 15 ML CUP MT SCH ×2 (08:00→20:00)
[2016-11-07] MEDS: DULoxetine HCl DR 30 MG CAP PO SCH (08:17)
[2016-11-07] MEDS: ZINC SULFATE 220 MG CAP PO SCH (08:17)
[2016-11-07] MEDS: SODIUM CHLORIDE 0.9% FLUSH 5 ML FLUSH IVF SCH (08:17)
[2016-11-07] MEDS: FERROUS SULFATE 325 MG (65 MG ELEMENTAL IRON) TAB PO SCH (08:17)
[2016-11-07] MEDS: RIVAROXABAN 20 MG TAB PO SCH (08:18)
[2016-11-07] MEDS: CALCIUM/VITAMIN D 250 MG/125 U TAB PO SCH ×2 (08:18→21:43)
[2016-11-07] MEDS: CARVEDILOL 3.125 MG TAB PO SCH ×2 (08:18→21:43)
[2016-11-07] MEDS: CALCITRIOL 0.25 MCG CAP PO SCH (08:21)
[2016-11-07] MEDS: NYSTATIN 100,000 U/GM PWD 15 GM BTL TOPICAL SCH ×2 (08:21→21:45)
[2016-11-07 12:00] VITALS: BP 109/63; PULSE 93; RESP 17; TEMP 98.9; O2SAT 95
[2016-11-07] MEDS: ERTAPENEM INJ 1,000 MG in SODIUM CHLORIDE 0.9% INJ 100 ML IV SCH (12:15)
--- NOTE | 2016-11-07 13:55 | PD.CAR.PN ---
CVT Progress Note Subjective/Hospital Course: 70-year-old female with a complex medical and surgical history of peripheral vascular disease and multiple related problems presents now status post BK amputation about a month half ago. Patient went to fdc and apparently braced herself on the stump several times in bed in hit it against either floor or the chair not quite clear. Part of the stump opened up and at this point patient is dehiscence of skin deeper tissue seemed to be still intact. 06/16/16 Patient underwent yesterday debridement of the stump with wound VAC placement. The dehiscence is fortunately superficial involving skin and muscle in this as been debrided successfully while the rest of the tissues of bleeding and are viable. Wound VAC has been placed Cultures have been reviewed and antibiotics can be adjusted by medicine as appropriate We'll continue current care and patient should be able to go to fdc with a wound VAC by Sunday Patient's nutritional status is very poor with a low albumen and prealbumin level and therefore nutritional evaluation and recommendations are requested I believe the patient is not taking sufficient by mouth in the fdc and may need supplemental enteral or parenteral feedings at this point 06/17/16 I reviewed the nutritional parameters and patient's prealbumin and transferrin levels a critically low indicating severe malnutrition. Patient's healing is impaired and so is the rehabilitative potential. After reviewing to nutritional recommendations once these are made, we will decide whether patient needs an Gjehrn-y-Jlft placed for additional parenteral nutrition for short bowel syndrome Stump is nice and clean with minimal drainage from the wound VAC 06/19/16 Still awaiting nutritional consult and evaluation for patient has short gut syndrome and will probably need additional parenteral feedings. If so patient will need [id number]-o-[id number] placement for additional feedings Patient is taking excellent by mouth but despite that her nutritional status is poor and hence the healing issues Left BKA stump incision is clean and wound VAC is in place with minimal drainage and will need to be changed today Awaiting wound care to change the wound VAC. Infectious disease help is much appreciated 06/20/2016 Patient doing well at this time. Stump is clean and the wound VAC will be changed today Patient had Buckgf-[id number] placed by radiology for supplemental parenteral feedings. Grateful for the nutritional evaluation. Patient will be placed on TPN at about the 1500 non-protein calories a day split about 60-70% in glucose and about 30% in form of lipids Patient will likely have to be discharged on supplemental TPN in face of her short bowel syndrome 06/21/16 Patient is doing really well at this time She's taking good by mouth diet. 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 There is some granulation tissue which may eventually need to be debrided but at this point I would leave it alone. Stump wound VAC has been changed and this is clean and granulating nicely. Patient is currently on TPN which tolerating well. In face of her short bowel syndrome patient will need TPN after discharge from the hospital. Grateful to case management for making arrangements for the same 06/22/16 Vital signs stable patient is doing well. Her appetite has improved and patient is taking good by mouth diet and having regular bowel movements. The abdominal incision is completely healed and fistula has completely resolved. The BKA wound VAC has been changed and wound is clean and granulating nicely. Nbehcf-s-Lycm is being used for additional parenteral feedings necessary and short bowel syndrome and patient will be discharged on TPN. 06/23/16 Patient underwent today change of the wound VAC and the wound is clean. Next with will be the last wound VAC change and after that I plan to take the patient to the OR for irrigation and closure of the wound by the middle of the next week. 06/24/16 Patient doing very well at this time she is in a good mood and taking by mouth diet well Unfortunately due to the short bowel syndrome she need supplemental TPN feedings at this time Stump is healed nicely there is a small scab anterior to it and this should allow to fall off on its own Once the arrangements are made for outpatient TPN patient will be able to be discharged Awaiting case management to make the arrangements for outpatient TPN 06/25/16 Vital signs stable Patient is awake and alert and oriented, taking by mouth diet very well Abdomen is soft and the colocutaneous fistula is completely closed The BKA stump has an eschar and a scab but I would leave this alone because underneath its healing nicely. Patient remains on TPN considering the short gut syndrome and will go home on the same Mild anemia is dilutional due to TPN administration and intravenous fluids and does not require therapy at this time 06/26/16 Vital signs stable Patient is awake and alert and oriented, taking by mouth diet very well Abdomen is soft and the colocutaneous fistula is completely closed The BKA stump has an eschar and a scab but I would leave this alone because underneath its healing nicely. Patient remains on TPN considering the short gut syndrome and will go home on the same Mild anemia is dilutional due to TPN administration and intravenous fluids and does not require therapy at this time 06/27/16 Wound VAC has been removed by me and the the entire stump is healed very nicely except a small area but an inch length at the very lateral portion of the incision were we going to put a very small wound VAC on for another week or so. Patient can transfer to rehabilitation at any time as long as she can get intravenous TPN in the process 06/28/16 Wound VAC has been removed by me and the the entire stump is healed very nicely except a small area but an inch length at the very lateral portion of the incision were we going to put a very small wound VAC on for another week or so. Patient can transfer to rehabilitation at any time as long as she can get intravenous TPN Patient will need continuous churn buttermaker TPN considering short gut syndrome and this can be done either in a fdc or at home I suspect this will be about a six-month process and after that patient may not need additional feedings if we can get her in a reasonable nutritional status in the meantime. I understand the difficulty this creates for case management to find her such an arrangement 06/29/16 Patient doing really well at this time taking good by mouth but due to the short bowel syndrome will require long-term TPN Stump is healing really nicely and the probably after this week we will remove the wound VAC and simply place wet-to-dry dressing and allow this to heal 06/30/16 Patient is doing well tolerates diet. Abdomen is soft with active bowel sounds Incisions are clean and dry Wound VAC last change will be next week and after that we going to remove the wound VAC and continue wet-to-dry dressing Stump is healing really nicely Due to TPN and other issues placement remains a problem 07/01/16 Abdomen soft and active bowel sounds Tolerates diet well Stump is clean and dry and I'll remove the wound VAC on Sunday after that patient will just be on wet-to-dry dressings until the stump heels Arrangements for discharge to difficult due to long-term TPN needs 07/03/16 Vital signs stable Stump is clean and wound VAC after next removal won't need to be applied again Patient will remain long-term on TPN and I'm waiting for case management to make discharge arrangements Will [facility] medicine kindly if patient can be transferred to medicine service at this time 07/14/16 Patient is a placement issue apparently is still in the hospital The left BKA stump is healed nicely except for very small air about 1 cm which is granulating in on the lateral aspect of the stump Apparently the enterocutaneous fistula was close for about month and a half and opened up 2 days ago draining some stool It should be noted that the bowel is quite close to the skin and patient is very thin and malnourished so it is not surprising that fistula opens and closes sporadically. With enteral and parenteral nutrition that should close but clearly patient is very frail and it could open up any time Nothing to add to care at this time 07/26/16 Discussed the patient with medical attending. She has systemic cutaneous herpes zoster and is on appropriate medications The drainage from anterior abdominal wall is very minimal however irritating to the skin of the abdominal wall in face of herpes and the nature of intestinal fluid. Just putting dressings will only worsen the situation so patient should be treated with the stoma and coverage of the skin. Unfortunately the colostomy material will not stick to the skin and the contents will leak underneath it. At point is best solution was due to apply Silvadene ointment daily and then dressing Patient's appetite is very poor sure refuses food and she remains on TPN although her GI tract is completely patent Her prognosis in general is for due to malnutrition short bowel syndrome and immune failure. 09/01/16 Patient seen at [facility]. Patient has tremendously improved in the last month or so. The rash she had has since disappeared I am not sure this was a herpetic rash or perhaps caused by zinc or selenium deficiency At this point patient is eating well and she is again about 15 pounds. Her short bowel syndrome as being managed adequately with improvement of by mouth intake and modification of the diet Abdomen is soft with active bowel sounds and the fistula has closed There is small amount of preperitoneal fat extruding from the abdomen incision. I debrided this at the bedside In the worse case scenario patient would have to go to the operating room to have this cauterized away and reclosed but I would certainly like to avoid this in this lady was finally recovering nicely 11/20/16 Last night patient was straining when going to bathroom and enterocutaneous fistula opened up again Patient is now draining stool over the last 24 hours. 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 She underwent several surgeries and it is a miracle that patient has survived all this. The fistulous tract has now opened and closed about 5 times since September last year when patient's first came and this is now another instance of the same. As far as the fistulous tract is concerned this patient is not a candidate for an open surgery due to malnutrition, short bowel syndrome in the anatomic considerations. Going into this abdomen with resultant multiple fistulas, damage to the remaining small bowel and likely of the patient Therefore the appropriate way to manage this as conservatively filled the fistula tracts closes again Physical examination reveals skin inferior to the fistula to be starting to get red again and irritated although it was nicely healed as stated in above note It should be noted that this is distal small bowel content and therefore fairly caustic so meticulous care has to be taken not to allow this to be in contact with the skin On my arrival one part of the fistula in the midline is covered with a colostomy bag while the stool is freely draining all over the patient's abdomen between the legs and on the bed I went into the room ostomy nurse to come with me and removed personally everything cleaned patient up with nursing assistance I said down with the supervisor steffen house and the nurse and explained in detail how this should be covered and how the stoma should be structured in order to protect the skin Apparently large pieces of stoma skin adhesive material are not available here and let to be brought from [facility]. The same large pieces were used when patient first came to [place] and care was described in orders At this point meticulous care has to be taken in order to prevent skin damage and free leakage It is also imperative that the wound care gets involved in management of this patient 10/30/16 Patient had the spike a fever today to 101.8 White count 16,000 Abdomen is soft with active bowel sounds and ileostomy is working very well Bilateral breath sounds and no rhonchi or rales Wound VAC has been changed today and I'll look to the wound leg really looks nice and healing very nicely with good granulation tissue No signs of dehiscence I believe the fever spikes are part of the fungemia and unfortunately 30-50% of patients will develop systemic fungemia in this setting will succumb to the same despite maximum therapy Patient remains on micafungin Continue care 10/31/16 Abdomen is soft and active bowel sounds and incision is nice and granulating underneath the wound VAC Ileostomy working fine White count is coming down and patient hasn't had any fever spikes since placed on Diflucan and micafungin Unfortunately patient refuses to eat and also refuses to get out of bed Physical therapy and occupational therapy of trying to mobilize the patient but she will not cooperate She also refuses to take by mouth diet but drinks high caloric supplements at least Respiratory-gillette patient is doing well throughout the day and then 2 in the evening her sats started dropping to again improve later on Will order ABGs and perhaps do a CAT scan of the chest to assess for any effusions or any other possible causes for this Again patient is very ill with fungemia which carries high mortality and ICU patient's especially with immunosuppression accompanying the clinical picture 08/22/17 I today patient is doing okay She doesn't want to take any by mouth diet except high caloric supplements Abdomen is soft active bowel sounds ileostomy and colostomy clean and midline wound is healing nicely with a the wound VAC Bilateral breath sounds decreased over the both lung chaney consistent with bilateral pulmonary consolidation unlikely mu onset lower lobe pneumonia Patient is unwilling to get out of bed and does not participate in physical occupational therapy rather chased some out of the room Discussed the care with her document control assistant Mrs. 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 Currently on amphotericin B and antibiotics Patient is refusing any by mouth diet and is refusing to get out of bed She will developed pneumonia and and up on the respirator again if she continues to refuse activity Midline incision wound VAC has been changed and appears to be clean and granulating nicely 11/07/16 Patient somewhat improved awake alert and oriented White count has normalized Abdomen is soft with active bowel sounds ileostomy working fine Midline incision is healing very well Patient refuses take by mouth diet except for occasional bites of something and ensure Nothing to add to care Objective: Vital Signs Date Time Temp Pulse Resp B/P Pulse Ox O2 Delivery O2 Flow Rate FiO2 11/07/16 12:00 98.9 93 17 109/63 95 11/07/16 08:00 99.6 96 17 105/53 95 11/07/16 04:00 97.7 95 18 110/54 95 11/07/16 01:59 Nasal Cannula 5.00 11/07/16 00:00 98.7 88 18 103/57 94 11/06/16 22:00 88 11/06/16 20:41 93 Nasal Cannula 5.00 11/06/16 20:00 Nasal Cannula 5.00 100 11/06/16 20:00 82 11/06/16 20:00 98.8 82 16 119/61 94 11/06/16 18:00 89 11/06/16 16:00 89 11/06/16 16:00 97.8 86 12 141/65 94 11/06/16 14:00 81 Result Diagram: 11/06/16 0747 11/06/16 0747 Janice Olvera MD Nov 07, 2016 13:55
[2016-11-07] MEDS: AMPHOTERICIN B LIPOSOME IV SCH ×2 (14:57)
[2016-11-07] MEDS: WATE IV SCH ×2 (14:57)
[2016-11-07] MEDS: DEXTROSE 5% IV SCH ×2 (14:57)
[2016-11-07] MEDS: FLUCONAZOLE 400 MG PREMIX BAG 200 ML IV SCH (17:56)
[2016-11-07 18:15] VITALS: O2SAT 94
[2016-11-07] MEDS: ONDANSETRON HCL 4 MG/2 ML VIAL IV PUSH PRN (18:29)
[2016-11-07 20:00] VITALS: BP 112/59; PULSE 104; RESP 20; TEMP 97.7; O2SAT 93
[2016-11-07] MEDS: CLINIMIX E 5/25 2000 mL- >42 mls/hr IV-CENTRAL SCH ×3 (21:42)
[2016-11-07] MEDS: MIRTAZAPINE ODT 15 MG TAB PO SCH (21:44)
[2016-11-08] VITALS (7 sets, daily range): BP systolic 132–136; BP diastolic 64–88; PULSE 82–96; RESP 18–20; TEMP 97.8–98.5; O2SAT 94–96
[2016-11-08] MEDS: HYDROmorphone HCL PF 1 MG/ML VIAL IV PUSH PRN ×4 (00:51→14:23)
[2016-11-08] MEDS: SODIUM CHLOR 0.9% 1000 ML INJ 1,000 ML IV SCH ×3 (00:51→16:03)
[2016-11-08] MEDS: SODIUM CHLORIDE 0.9% FLUSH 5 ML FLUSH IVF SCH ×3 (00:52→20:35)
[2016-11-08] MEDS: OXYBUTYNIN CHLORIDE 5 MG TAB PO SCH ×3 (05:24→20:34)
[2016-11-08 06:06] LABS: AUTOMATED NEUTROPHIL # 3.4 TH/MM3 (1.8-7.7); BASOPHIL # 0.1 TH/MM3 (0-0.2); BASOPHIL % 1.2 % (0.0-2.0); EOSINOPHIL # 0.3 TH/MM3 (0-0.4); EOSINOPHIL % 4.1 % (0.0-4.0); HEMATOCRIT 27.5 % (35.0-46.0); HEMO FLAGS DIFF FINAL; LYMPH % 43.9 % (9.0-44.0); LYMPHOCYTE # 3.7 TH/MM3 (1.0-4.8); MEAN CELL VOLUME 88.5 FL (80.0-100.0); MEAN CORPUSCULAR HEMOGLOBIN 28.4 PG (27.0-34.0); MONO % 10.6 % (0.0-8.0); NEUT % 40.2 % (16.0-70.0); PLATELET COUNT 306 TH/MM3 (150-450); RED BLOOD COUNT 3.11 MIL/MM3 (4.00-5.30); RED CELL DISTRIBUTION WIDTH 18.2 % (11.6-17.2); WHITE BLOOD COUNT 8.5 TH/MM3 (4.0-11.0)
[2016-11-08] MEDS: INSULIN ASPART SUPPLEMENTAL SCALE SQ SCH ×4 (06:17→20:40)
[2016-11-08] MEDS: ACETAMINOPHEN 325 MG TAB PO PRN (06:20)
[2016-11-08 06:36] LABS: BICARBONATE 30.8 MEQ/L (21.0-32.0); INDIRECT BILIRUBIN 0.4 MG/DL (0.0-0.8); POTASSIUM 3.4 MEQ/L (3.5-5.1); TOTAL BILIRUBIN ADULT 1.1 MG/DL (0.2-1.0)
[2016-11-08] MEDS: CHLORHEXIDINE 0.12% (ORAL KIT) 15 ML CUP MT SCH ×2 (08:00→20:00)
[2016-11-08] MEDS: ZINC SULFATE 220 MG CAP PO SCH (09:09)
[2016-11-08] MEDS: FERROUS SULFATE 325 MG (65 MG ELEMENTAL IRON) TAB PO SCH (09:09)
[2016-11-08] MEDS: CARVEDILOL 3.125 MG TAB PO SCH ×2 (09:09→20:35)
[2016-11-08] MEDS: CALCIUM/VITAMIN D 250 MG/125 U TAB PO SCH ×2 (09:10→20:33)
[2016-11-08] MEDS: CALCITRIOL 0.25 MCG CAP PO SCH (09:10)
[2016-11-08] MEDS: DULoxetine HCl DR 30 MG CAP PO SCH (09:10)
[2016-11-08] MEDS: NYSTATIN 100,000 U/GM PWD 15 GM BTL TOPICAL SCH ×2 (09:23→20:36)
--- NOTE | 2016-11-08 10:10 | PD.CAR.PN ---
CVT Progress Note Subjective/Hospital Course: 70-year-old female with a complex medical and surgical history of peripheral vascular disease and multiple related problems presents now status post BK amputation about a month half ago. Patient went to senior care and apparently braced herself on the stump several times in bed in hit it against either floor or the chair not quite clear. Part of the stump opened up and at this point patient is dehiscence of skin deeper tissue seemed to be still intact. 06/16/16 Patient underwent yesterday debridement of the stump with wound VAC placement. The dehiscence is fortunately superficial involving skin and muscle in this as been debrided successfully while the rest of the tissues of bleeding and are viable. Wound VAC has been placed Cultures have been reviewed and antibiotics can be adjusted by medicine as appropriate We'll continue current care and patient should be able to go to senior care with a wound VAC by Sunday Patient's nutritional status is very poor with a low albumen and prealbumin level and therefore nutritional evaluation and recommendations are requested I believe the patient is not taking sufficient by mouth in the senior care and may need supplemental enteral or parenteral feedings at this point 06/17/16 I reviewed the nutritional parameters and patient's prealbumin and transferrin levels a critically low indicating severe malnutrition. Patient's healing is impaired and so is the rehabilitative potential. After reviewing to nutritional recommendations once these are made, we will decide whether patient needs an [id number] placed for additional parenteral nutrition for short bowel syndrome Stump is nice and clean with minimal drainage from the wound VAC 06/19/16 Still awaiting nutritional consult and evaluation for patient has short gut syndrome and will probably need additional parenteral feedings. If so patient will need Yfeulu-f-Ocld placement for additional feedings Patient is taking excellent by mouth but despite that her nutritional status is poor and hence the healing issues Left BKA stump incision is clean and wound VAC is in place with minimal drainage and will need to be changed today Awaiting wound care to change the wound VAC. Infectious disease help is much appreciated 06/20/2016 Patient doing well at this time. Stump is clean and the wound VAC will be changed today Patient had Juxhet-u-Lpts placed by radiology for supplemental parenteral feedings. Grateful for the nutritional evaluation. Patient will be placed on TPN at about the 1500 non-protein calories a day split about 60-70% in glucose and about 30% in form of lipids Patient will likely have to be discharged on supplemental TPN in face of her short bowel syndrome 06/21/16 Patient is doing really well at this time She's taking good by mouth diet. 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 There is some granulation tissue which may eventually need to be debrided but at this point I would leave it alone. Stump wound VAC has been changed and this is clean and granulating nicely. Patient is currently on TPN which tolerating well. In face of her short bowel syndrome patient will need TPN after discharge from the hospital. Grateful to case management for making arrangements for the same 06/22/16 Vital signs stable patient is doing well. Her appetite has improved and patient is taking good by mouth diet and having regular bowel movements. The abdominal incision is completely healed and fistula has completely resolved. The BKA wound VAC has been changed and wound is clean and granulating nicely. Kxyfbf-d-[id number] is being used for additional parenteral feedings necessary and short bowel syndrome and patient will be discharged on TPN. 06/23/16 Patient underwent today change of the wound VAC and the wound is clean. Next with will be the last wound VAC change and after that I plan to take the patient to the OR for irrigation and closure of the wound by the middle of the next week. 06/24/16 Patient doing very well at this time she is in a good mood and taking by mouth diet well Unfortunately due to the short bowel syndrome she need supplemental TPN feedings at this time Stump is healed nicely there is a small scab anterior to it and this should allow to fall off on its own Once the arrangements are made for outpatient TPN patient will be able to be discharged Awaiting case management to make the arrangements for outpatient TPN 06/25/16 Vital signs stable Patient is awake and alert and oriented, taking by mouth diet very well Abdomen is soft and the colocutaneous fistula is completely closed The BKA stump has an eschar and a scab but I would leave this alone because underneath its healing nicely. Patient remains on TPN considering the short gut syndrome and will go home on the same Mild anemia is dilutional due to TPN administration and intravenous fluids and does not require therapy at this time 06/26/16 Vital signs stable Patient is awake and alert and oriented, taking by mouth diet very well Abdomen is soft and the colocutaneous fistula is completely closed The BKA stump has an eschar and a scab but I would leave this alone because underneath its healing nicely. Patient remains on TPN considering the short gut syndrome and will go home on the same Mild anemia is dilutional due to TPN administration and intravenous fluids and does not require therapy at this time 06/27/16 Wound VAC has been removed by me and the the entire stump is healed very nicely except a small area but an inch length at the very lateral portion of the incision were we going to put a very small wound VAC on for another week or so. Patient can transfer to rehabilitation at any time as long as she can get intravenous TPN in the process 06/28/16 Wound VAC has been removed by me and the the entire stump is healed very nicely except a small area but an inch length at the very lateral portion of the incision were we going to put a very small wound VAC on for another week or so. Patient can transfer to rehabilitation at any time as long as she can get intravenous TPN Patient will need moth exterminator TPN considering short gut syndrome and this can be done either in a senior care or at home I suspect this will be about a six-month process and after that patient may not need additional feedings if we can get her in a reasonable nutritional status in the meantime. I understand the difficulty this creates for case management to find her such an arrangement 06/29/16 Patient doing really well at this time taking good by mouth but due to the short bowel syndrome will require long-term TPN Stump is healing really nicely and the probably after this week we will remove the wound VAC and simply place wet-to-dry dressing and allow this to heal 06/30/16 Patient is doing well tolerates diet. Abdomen is soft with active bowel sounds Incisions are clean and dry Wound VAC last change will be next week and after that we going to remove the wound VAC and continue wet-to-dry dressing Stump is healing really nicely Due to TPN and other issues placement remains a problem 07/01/16 Abdomen soft and active bowel sounds Tolerates diet well Stump is clean and dry and I'll remove the wound VAC on Sunday after that patient will just be on wet-to-dry dressings until the stump heels Arrangements for discharge to difficult due to long-term TPN needs 07/03/16 Vital signs stable Stump is clean and wound VAC after next removal won't need to be applied again Patient will remain long-term on TPN and I'm waiting for case management to make discharge arrangements Will [facility] medicine kindly if patient can be transferred to medicine service at this time 07/14/16 Patient is a placement issue apparently is still in the hospital The left BKA stump is healed nicely except for very small air about 1 cm which is granulating in on the lateral aspect of the stump Apparently the enterocutaneous fistula was close for about month and a half and opened up 2 days ago draining some stool It should be noted that the bowel is quite close to the skin and patient is very thin and malnourished so it is not surprising that fistula opens and closes sporadically. With enteral and parenteral nutrition that should close but clearly patient is very frail and it could open up any time Nothing to add to care at this time 07/26/16 Discussed the patient with medical attending. She has systemic cutaneous herpes zoster and is on appropriate medications The drainage from anterior abdominal wall is very minimal however irritating to the skin of the abdominal wall in face of herpes and the nature of intestinal fluid. Just putting dressings will only worsen the situation so patient should be treated with the stoma and coverage of the skin. Unfortunately the colostomy material will not stick to the skin and the contents will leak underneath it. At point is best solution was due to apply Silvadene ointment daily and then dressing Patient's appetite is very poor sure refuses food and she remains on TPN although her GI tract is completely patent Her prognosis in general is for due to malnutrition short bowel syndrome and immune failure. 09/01/16 Patient seen at [facility]. Patient has tremendously improved in the last month or so. The rash she had has since disappeared I am not sure this was a herpetic rash or perhaps caused by zinc or selenium deficiency At this point patient is eating well and she is again about 15 pounds. Her short bowel syndrome as being managed adequately with improvement of by mouth intake and modification of the diet Abdomen is soft with active bowel sounds and the fistula has closed There is small amount of preperitoneal fat extruding from the abdomen incision. I debrided this at the bedside In the worse case scenario patient would have to go to the operating room to have this cauterized away and reclosed but I would certainly like to avoid this in this lady was finally recovering nicely 11/20/16 Last night patient was straining when going to bathroom and enterocutaneous fistula opened up again Patient is now draining stool over the last 24 hours. 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 She underwent several surgeries and it is a miracle that patient has survived all this. The fistulous tract has now opened and closed about 5 times since September last year when patient's first came and this is now another instance of the same. As far as the fistulous tract is concerned this patient is not a candidate for an open surgery due to malnutrition, short bowel syndrome in the anatomic considerations. Going into this abdomen with resultant multiple fistulas, damage to the remaining small bowel and likely of the patient Therefore the appropriate way to manage this as conservatively filled the fistula tracts closes again Physical examination reveals skin inferior to the fistula to be starting to get red again and irritated although it was nicely healed as stated in above note It should be noted that this is distal small bowel content and therefore fairly caustic so meticulous care has to be taken not to allow this to be in contact with the skin On my arrival one part of the fistula in the midline is covered with a colostomy bag while the stool is freely draining all over the patient's abdomen between the legs and on the bed I went into the room ostomy nurse to come with me and removed personally everything cleaned patient up with nursing assistance I said down with the clubhouse attendant and the nurse and explained in detail how this should be covered and how the stoma should be structured in order to protect the skin Apparently large pieces of stoma skin adhesive material are not available here and let to be brought from [facility]. The same large pieces were used when patient first came to [place] and care was described in orders At this point meticulous care has to be taken in order to prevent skin damage and free leakage It is also imperative that the wound care gets involved in management of this patient 10/30/16 Patient had the spike a fever today to 101.8 White count 16,000 Abdomen is soft with active bowel sounds and ileostomy is working very well Bilateral breath sounds and no rhonchi or rales Wound VAC has been changed today and I'll look to the wound leg really looks nice and healing very nicely with good granulation tissue No signs of dehiscence I believe the fever spikes are part of the fungemia and unfortunately 30-50% of patients will develop systemic fungemia in this setting will succumb to the same despite maximum therapy Patient remains on micafungin Continue care 10/31/16 Abdomen is soft and active bowel sounds and incision is nice and granulating underneath the wound VAC Ileostomy working fine White count is coming down and patient hasn't had any fever spikes since placed on Diflucan and micafungin Unfortunately patient refuses to eat and also refuses to get out of bed Physical therapy and occupational therapy of trying to mobilize the patient but she will not cooperate She also refuses to take by mouth diet but drinks high caloric supplements at least Respiratory-gillette patient is doing well throughout the day and then 2 in the evening her sats started dropping to again improve later on Will order ABGs and perhaps do a CAT scan of the chest to assess for any effusions or any other possible causes for this Again patient is very ill with fungemia which carries high mortality and ICU patient's especially with immunosuppression accompanying the clinical picture 08/22/17 I today patient is doing okay She doesn't want to take any by mouth diet except high caloric supplements Abdomen is soft active bowel sounds ileostomy and colostomy clean and midline wound is healing nicely with a the wound VAC Bilateral breath sounds decreased over the both lung chaney consistent with bilateral pulmonary consolidation unlikely mu onset lower lobe pneumonia Patient is unwilling to get out of bed and does not participate in physical occupational therapy rather chased some out of the room Discussed the care with her coloring room man Mrs. 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 Currently on amphotericin B and antibiotics Patient is refusing any by mouth diet and is refusing to get out of bed She will developed pneumonia and and up on the respirator again if she continues to refuse activity Midline incision wound VAC has been changed and appears to be clean and granulating nicely 11/07/16 Patient somewhat improved awake alert and oriented White count has normalized Abdomen is soft with active bowel sounds ileostomy working fine Midline incision is healing very well Patient refuses take by mouth diet except for occasional bites of something and ensure Nothing to add to care 11/08/16 Abdominal incision is clean and wound VAC is in place be changed tomorrow Ileostomy working fine Patient taking by mouth however refuses regular diet and only drinks fluids Remains afebrile at this time and infection seem to be under control Very hard to manage as far as physical therapy is concerned because patient refuses to get out of bed or participate in any therapy Have tried to explain to her the importance of physical therapy in order to get her back on her feet regain strength and mobilize as well as as a means to prevent pneumonia but patient will not get out of bed Objective: Vital Signs Date Time Temp Pulse Resp B/P Pulse Ox O2 Delivery O2 Flow Rate FiO2 11/08/16 08:00 98.5 89 19 136/88 95 11/08/16 00:00 98.4 95 20 132/65 96 11/07/16 20:00 97.7 104 20 112/59 93 11/07/16 18:15 94 21 11/07/16 15:36 94 Room Air 11/07/16 12:00 98.9 93 17 109/63 95 Labs: Laboratory Tests Test 11/08/16 05:29 White Blood Count 8.5 TH/MM3 (4.0-11.0) Red Blood Count 3.11 MIL/MM3 (4.00-5.30) Hemoglobin 8.8 GM/DL (11.6-15.3) Hematocrit 27.5 % (35.0-46.0) Mean Corpuscular Volume 88.5 FL (80.0-100.0) Mean Corpuscular Hemoglobin 28.4 PG (27.0-34.0) Mean Corpuscular Hemoglobin 32.0 % Concent (32.0-36.0) Red Cell Distribution Width 18.2 % (11.6-17.2) Platelet Count 306 TH/MM3 (150-450) Mean Platelet Volume 8.7 FL (7.0-11.0) Neutrophils (%) (Auto) 40.2 % (16.0-70.0) Lymphocytes (%) (Auto) 43.9 % (9.0-44.0) Monocytes (%) (Auto) 10.6 % (0.0-8.0) Eosinophils (%) (Auto) 4.1 % (0.0-4.0) Basophils (%) (Auto) 1.2 % (0.0-2.0) Neutrophils # (Auto) 3.4 TH/MM3 (1.8-7.7) Lymphocytes # (Auto) 3.7 TH/MM3 (1.0-4.8) Monocytes # (Auto) 0.9 TH/MM3 (0-0.9) Eosinophils # (Auto) 0.3 TH/MM3 (0-0.4) Basophils # (Auto) 0.1 TH/MM3 (0-0.2) CBC Comment DIFF FINAL Differential Comment Sodium Level 141 MEQ/L (136-145) Potassium Level 3.4 MEQ/L (3.5-5.1) Chloride Level 103 MEQ/L (98-107) Carbon Dioxide Level 30.8 MEQ/L (21.0-32.0) Anion Gap 7 MEQ/L (5-15) Blood Urea Nitrogen 31 MG/DL (7-18) Creatinine 0.98 MG/DL (0.50-1.00) Estimat Glomerular Filtration 56 ML/MIN (>89) Rate Random Glucose 127 MG/DL (74-106) Calcium Level 9.7 MG/DL (8.5-10.1) Total Bilirubin 1.1 MG/DL (0.2-1.0) Direct Bilirubin 0.7 MG/DL (0.0-0.2) Indirect Bilirubin 0.4 MG/DL (0.0-0.8) Aspartate Amino Transf 33 U/L (15-37) (AST/SGOT) Alanine Aminotransferase 17 U/L (10-53) (ALT/SGPT) Alkaline Phosphatase 231 U/L (45-117) Total Protein 7.4 GM/DL (6.4-8.2) Albumin 1.6 GM/DL (3.4-5.0) Result Diagram: 11/08/1629 11/08/1629 Janice Olvera MD Nov 08, 2016 10:10
[2016-11-08] MEDS: RIVAROXABAN 15 MG TAB PO SCH ×2 (10:40→14:08)
--- NOTE | 2016-11-08 10:46 | HHI.PR ---
Addendum to Inpatient Note Additional Information AEROBIC BLOOD CULTURE Final 11/06/16-1414 CULTURE GROWING KATYA PARAPSILOSIS ANIDULAFUNGIN 1 mcg/mL Susceptible AMPOTERICIN B 0.5 mcg/mL CASPOFUNGIN 0.25 mcg/mL Susceptible FLUCONAZOLE 0.5 mcg/mL Susceptible 5-FLUCYTOSINE 0.12 mcg/mL ITRACONAZOLE 0.12 mcg/mL MICAFUNGIN 1 mcg/mL Susceptible POSACONAZOLE 0.06 mcg/mL VORICONAZOLE 0.015 mcg/mL susceptible Roxana Arroyo MD Nov 08, 2016 10:46
[2016-11-08] MEDS: POTASSIUM CHLOR 10 MEQ PREMIX 100 ML IV SCH ×3 (11:00→13:00)
[2016-11-08] MEDS: ERTAPENEM INJ 1,000 MG in SODIUM CHLORIDE 0.9% INJ 100 ML IV SCH (14:06)
[2016-11-08] MEDS: POTASSIUM CHLOR 20 MEQ PREMIX 100 ML IV SCH ×2 (14:07→16:53)
[2016-11-08] MEDS: WATE IV SCH ×2 (16:05)
[2016-11-08] MEDS: AMPHOTERICIN B LIPOSOME IV SCH ×2 (16:05)
[2016-11-08] MEDS: DEXTROSE 5% IV SCH ×2 (16:05)
[2016-11-08] MEDS: FLUCONAZOLE 400 MG PREMIX BAG 200 ML IV SCH (19:15)
[2016-11-08] MEDS: MIRTAZAPINE ODT 15 MG TAB PO SCH (20:35)
--- NOTE | 2016-11-08 20:51 | HHI.IDPN ---
Subjective Subjective Remarks remains on NC O2 c/o chills minimal po stool up to 3 L /day UOP is adequate Last blood clx negaive - final Antibiotics fluconazol lip AMB vanco azctam Lines Port: removed Past Medical History Ischemic Bowel w/ Resection and development of Enterocutaneous Fistula Short gut syndrome Asthma Depression and COPD Past Surgical History Bowel Resection 11/13/15 and 11/26/15 Left BKA Right Mastectomy Hysterectomy, Allergies: Coded Allergies: Levaquin (Verified Allergy, Severe, Edema, 05/29/16) Penicillin (Unverified Allergy, Intermediate, hives, 03/10/16) Sulfa (Unverified Allergy, Intermediate, hives, 03/10/16) *MDRO Multi-Drug Resistant Organism (Verified Adverse Reaction, Unknown, ) ESBL+Klebsiella (leg) - 06/15/16; (sputum) - 11/01/16 Objective . Vital Signs Date Time Temp Pulse Resp B/P Pulse Ox O2 Delivery O2 Flow Rate FiO2 11/08/16 18:24 94 Nasal Cannula 4.00 11/08/16 16:00 97.8 82 18 133/79 96 11/08/16 12:00 97.8 85 18 133/81 95 11/08/16 09:30 95 Room Air 11/08/16 09:25 94 Nasal Cannula 4.00 11/08/16 08:00 98.5 89 19 136/88 95 11/08/16 00:00 98.4 95 20 132/65 96 11/07/16 11/07/16 11/08/16 15:00 23:00 07:00 Intake Total 1104 ml 1620 ml 1770 ml Output Total 2075 ml 1150 ml 1600 ml Balance -971 ml 470 ml 170 ml Intake Oral 60 ml 320 ml 320 ml IV Total 652 ml 800 ml 800 ml TPN/PPN 392 ml 500 ml 650 ml Output Urine Total 650 ml 850 ml 450 ml Stool Total 1425 ml 300 ml 1150 ml Drainage Total 0 ml . Laboratory Tests Test 11/08/16 05:29 White Blood Count 8.5 TH/MM3 Red Blood Count 3.11 MIL/MM3 Hemoglobin 8.8 GM/DL Hematocrit 27.5 % Mean Corpuscular Volume 88.5 FL Mean Corpuscular Hemoglobin 28.4 PG Mean Corpuscular Hemoglobin 32.0 % Concent Red Cell Distribution Width 18.2 % Platelet Count 306 TH/MM3 Mean Platelet Volume 8.7 FL Neutrophils (%) (Auto) 40.2 % Lymphocytes (%) (Auto) 43.9 % Monocytes (%) (Auto) 10.6 % Eosinophils (%) (Auto) 4.1 % Basophils (%) (Auto) 1.2 % Neutrophils # (Auto) 3.4 TH/MM3 Lymphocytes # (Auto) 3.7 TH/MM3 Monocytes # (Auto) 0.9 TH/MM3 Eosinophils # (Auto) 0.3 TH/MM3 Basophils # (Auto) 0.1 TH/MM3 CBC Comment DIFF FINAL Differential Comment Laboratory Tests Test 11/08/16 05:29 Sodium Level 141 MEQ/L Potassium Level 3.4 MEQ/L Chloride Level 103 MEQ/L Carbon Dioxide Level 30.8 MEQ/L Anion Gap 7 MEQ/L Blood Urea Nitrogen 31 MG/DL Creatinine 0.98 MG/DL Estimat Glomerular Filtration 56 ML/MIN Rate Random Glucose 127 MG/DL Calcium Level 9.7 MG/DL Total Bilirubin 1.1 MG/DL Direct Bilirubin 0.7 MG/DL Indirect Bilirubin 0.4 MG/DL Aspartate Amino Transf 33 U/L (AST/SGOT) Alanine Aminotransferase 17 U/L (ALT/SGPT) Alkaline Phosphatase 231 U/L Total Protein 7.4 GM/DL Albumin 1.6 GM/DL Imaging Last Impressions Chest X-Ray 11/03/16 0000 Signed Impressions: Service Date/Time: Thursday, November 03, 2016 15:03 - CONCLUSION: Subclavian central venous catheter which is in good position. No evidence of pneumothorax. Improving lung aeration with decreasing congestion and bibasilar airspace disease. Kendall Lara MD Abdomen CT 11/01/16 0000 Signed Impressions: Service Date/Time: October 15:20 - CONCLUSION: No abnormalities are seen with respect to the liver or spleen. Previously noted small fluid collections adjacent to the small bowel loops within the right lower quadrant are no longer present. The configuration of the small bowel loops adjacent to the intra-abdominal wall at the site of mesh repair are consistent with areas of adhesion. No evidence of bowel obstruction.. Hoda Ash MD Abdomen/Pelvis CT 10/19/16 0000 Signed Impressions: Service Date/Time: September 15:10 - CONCLUSION: 1. There are 2 small rim-enhancing fluid collections in the right mid abdomen adjacent to the distal ileum that extends into the ileostomy. These measure 2.6 x 1.3 cm and 2.1 x 1.6 cm. These could represent infected fluid collections but are too small to place a drainage catheter. There is an additional small subcapsular fluid collection along the anterior left lobe of the liver. 2. Additionally, there is wall thickening of the distal ileal loops along with marked mesenteric edema. 3. There is a small volume of free fluid in the left upper quadrant around the spleen and in the pelvis. 4. There is a new small left pleural effusion with compressive atelectasis and right lower lobe volume loss versus airspace consolidation. Calixto Uriostegui MD Liver Ultrasound 07/12/16 0000 Signed Impressions: Service Date/Time: Tuesday, July 12, 2016 18:07 - CONCLUSION: 1. No acute abnormality demonstrated. 2. Heterogeneous liver without measurable mass. 3. Small and heterogeneous spleen without a measurable mass. 4. Cortical thinning and scarring of the right kidney. 5. Previous cholecystectomy. Calixto Woodruff MD Chest CT 07/09/16 0000 Signed Impressions: Service Date/Time: Saturday, July 09, 2016 14:43 - CONCLUSION: 1. Small right pleural effusion and minimal right basilar consolidation. 2. 6 mm left basilar nodule. Followup CT chest 6 months recommended. Florian Pepper MD Lower Extremity Ultrasound 06/25/16 0000 Signed Impressions: Service Date/Time: Saturday, June 25, 2016 15:56 - CONCLUSION: Negative exam with no evidence of deep venous thrombosis. Soft tissue edema. Mike Leija MD Port Line Insertion 06/20/16 0000 Signed Impressions: Service Date/Time: Monday, June 20, 2016 08:53 - CONCLUSION: Uncomplicated ultrasound and fluoroscopic guided implanted central venous port catheter placement as described in detail above. An 8 [employer] port was placed. Kevan Salgado Jr., MD Physical Exam CONSTITUTIONAL/GENERAL: fully awake and alert ill appearing Conversant TUBES/LINES/DRAINS: R SCV cath removed PORT incision is dry and clean at previous PORT site, no skin changes SKIN: No jaundice, rashes, or lesions. Skin temperature appropriate. Not diaphoretic. HEAD: Atraumatic. Normocephalic. EYES: Pupils equal and round and reactive. Extraocular motions intact. No scleral icterus. No injection or drainage. Fundi not examined. ENT: Oral mucosae without visible erythema, exudates, masses, or lesions. CARDIOVASCULAR: Regular rate and rhythm without murmurs, gallops, or rubs. No JVD. RESPIRATORY/CHEST: Symmetric, unlabored respirations. Rhonchi to auscultation. Breath sounds equal bilaterally. + occ wet cough GASTROINTESTINAL: Abdomen with VAC dressing in place serosang dc minimally distended quite tender to palpation + BS large amount of liquid brown stool from colostomy; more dark blood from mucoid fistula GENITOURINARY: Without palpable bladder distension. Hamlin catheter in place with clear yellow urine MUSCULOSKELETAL: Extremities without clubbing, cyanosis, No edema. 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 fungal endocarditis: repat 2 D echo negative for vegetatopins - no e/o intraabdominal source of fungemia on CT FLoaters - no fungal endophthalmitis per ophthal eval Intraabd abscesses, small : dw Dr Hill: no clin significance nosocomial PNA , KLEBSIELLA PNEUMONIAE ESBL POS Prognosis is not good in the view of persistent infection poor overall performance status and TPN dependence RECOMMENDATION cont fluconazol cont AMB, liposomal Probably will need endocarditis Rx since she is not a candidate for MELVA -consider MELVA though given into fact that pt is not a candidate for cardiac surgery will defer the procedure for now R SCV central line; to be removed today OK to get PICC now cont meropenem for ESBL + Kleb pneumo thru 11/16 poly RN I will be OOT thru 11/30Dr Lorena will cover for me Roxana Arroyo MD Nov 08, 2016 20:51 Roxana Arroyo MD Nov 08, 2016 20:51
[2016-11-08] MEDS: FAT EMULSION 20% INJ 250 ML (Twice weekly over 8 hours) IV-CENTRAL SCH (22:18)
[2016-11-08] MEDS: CLINIMIX E 5/25 2000 mL- >42 mls/hr IV-CENTRAL SCH ×3 (22:19)
--- NOTE | 2016-11-08 23:02 | HHI.PR ---
Subjective Remarks date of service 11/07/16. Patient seen the afternoon of 11/07/16. Says she is feeling all right. Denies any chest pain or shortness of breath. Still with no appetite. Objective Vital Signs Date Time Temp Pulse Resp B/P Pulse Ox O2 Delivery O2 Flow Rate FiO2 11/08/16 20:00 98.4 96 19 136/64 94 11/08/16 18:24 94 Nasal Cannula 4.00 11/08/16 16:00 97.8 82 18 133/79 96 11/08/16 12:00 97.8 85 18 133/81 95 11/08/16 09:30 95 Room Air 11/08/16 09:25 94 Nasal Cannula 4.00 11/08/16 08:00 98.5 89 19 136/88 95 11/08/16 00:00 98.4 95 20 132/65 96 I/O 11/07/16 11/07/16 11/07/16 11/08/16 11/08/16 11/08/16 07:00 15:00 23:00 07:00 15:00 23:00 Intake Total 1400 ml 1104 ml 1620 ml 1770 ml 2069 ml 540 ml Output Total 750 ml 2075 ml 1150 ml 1600 ml 1000 ml 30 ml Balance 650 ml -971 ml 470 ml 170 ml 1069 ml 510 ml Intake Oral 240 ml 60 ml 320 ml 320 ml 60 ml IV Total 745 ml 652 ml 800 ml 800 ml 1775 ml 540 ml TPN/PPN 415 ml 392 ml 500 ml 650 ml 234 ml Output Urine Total 300 ml 650 ml 850 ml 450 ml 200 ml Stool Total 450 ml 1425 ml 300 ml 1150 ml 800 ml Drainage Total 0 ml 0 ml 30 ml Result Diagram: 11/08/1652811/08/16528 Objective Remarks GENERAL: lying in bed. awake, alert.. appears comfortable. alert and oriented 3. SKIN: Warm and dry. HEAD: Normocephalic. EYES: No scleral icterus. No injection or drainage. NECK: Supple, trachea midline. No JVD. CARDIOVASCULAR: Regular rate and rhythm without murmurs, gallops, or rubs. RESPIRATORY: Breath sounds equal bilaterally. No accessory muscle use. GASTROINTESTINAL: right-sided Fistula with green/brown liquid stool, as before. Left-sided fistula with no significant output. No rebound or guarding.wound VAC in midline incisionas before. . MUSCULOSKELETAL: No cyanosis, or edema. BACK: Nontender without obvious deformity. No CVA tenderness. A/P Assessment and Plan 11/07/16 vitals stable. Continue antibiotics as per infectious disease Ms. Wilson is a pleasant 71 year old female who was admitted to the hospital in Oct 2015 due to ischemic bowel and subsequently underwent resection of large , small bowel and cholecystectomy. 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 Patient was discharged to SNF but returned to the hospital due to post surgical complications. She underwent left foot amputation and subsequently had a lot of post surgical complications requiring wound vac. Her surgeon (Dr. Olvera) determined that patient was too high risk for further surgical intervention. Patient was on TPN and after discussing with Dr. Hill we switched patient to PO diet two days ago. Based on patient's desires, we spoke to Dr. Hill regarding a second surgical opinion. Dr. Hill was kind enough to consult Dr. Grajeda who evaluated patient on 10/07/2016. On 2015, patient was transferred to the main campus after she complained of severe abdominal pain and CT scan showed ischemic bowel. Due to septic shock, patient was started on Vancomycin and Cefepime prior to transfer. //Septic shock //Ischemic colitis //s/p Ex lap, resection of anterior abdominal wall fistula tract, resection of transverse colon to small bowel anastomosis, right sided ileostomy, left sided mucous fistula and partial removal of a ventral hernia mesh 10/08/16 -Cont Antibiotics as per Infectious disease - Echocardiogram cannot rule out vegetation. May need transesophageal echo, will defer to infectious disease.. -11/02. Sputum cultures ESBL positive. - Continue antimicrobials as per infectious disease. //COPD //Acute hypoxemic respiratory failure - s/p extubation on 10/10/2016. - Continue bronchodilators, Incentive spirometry. -On O2 5 L. Respiratory status stable. Monitor. //Acute kidney injury - resolved. Creatinine 2.70 ---> 0.78. - Kidney function stable. Continue monitor. //Acute blood loss anemia - s/p 4 units of PRBCs on 10/08/2016. - Hemoglobin continue stable. Monitor as necessary. -Hemoglobin stable. Continue to monitor. //Diabetes mellitus. -On TPN. Continue sliding scale. Full code. //Prophylaxis. Xarelto. Protonix IV. Discharge Planning management in ICU. Jaden Marshall MD Nov 08, 2016 23:02 - Hemoglobin continue stable. Monitor as necessary. =stable. //Diabetes mellitus. -On TPN. Continue sliding scale. Full code. Xarelto. Protonix IV. Discharge Planning management in ICU. Jaden Marshall MD Nov 08, 2016 23:02
--- NOTE | 2016-11-08 23:03 | HHI.PR ---
Subjective Remarks patient seen today around noon. She says she is feeling well. He reports pain is controlled. poor appetite still. No nausea or vomiting. Objective Vital Signs Date Time Temp Pulse Resp B/P Pulse Ox O2 Delivery O2 Flow Rate FiO2 11/08/16 20:00 98.4 96 19 136/64 94 11/08/16 18:24 94 Nasal Cannula 4.00 11/08/16 16:00 97.8 82 18 133/79 96 11/08/16 12:00 97.8 85 18 133/81 95 11/08/16 09:30 95 Room Air 11/08/16 09:25 94 Nasal Cannula 4.00 11/08/16 08:00 98.5 89 19 136/88 95 11/08/16 00:00 98.4 95 20 132/65 96 I/O 11/07/16 11/07/16 11/07/16 11/08/16 11/08/16 11/08/16 07:00 15:00 23:00 07:00 15:00 23:00 Intake Total 1400 ml 1104 ml 1620 ml 1770 ml 2069 ml 540 ml Output Total 750 ml 2075 ml 1150 ml 1600 ml 1000 ml 30 ml Balance 650 ml -971 ml 470 ml 170 ml 1069 ml 510 ml Intake Oral 240 ml 60 ml 320 ml 320 ml 60 ml IV Total 745 ml 652 ml 800 ml 800 ml 1775 ml 540 ml TPN/PPN 415 ml 392 ml 500 ml 650 ml 234 ml Output Urine Total 300 ml 650 ml 850 ml 450 ml 200 ml Stool Total 450 ml 1425 ml 300 ml 1150 ml 800 ml Drainage Total 0 ml 0 ml 30 ml Result Diagram: 11/08/1629 11/08/16528 Objective Remarks GENERAL: lying in bed. awake, alert.. appears comfortable. alert and oriented 3.unchanged SKIN: Warm and dry. HEAD: Normocephalic. EYES: No scleral icterus. No injection or drainage. NECK: Supple, trachea midline. No JVD. CARDIOVASCULAR: Regular rate and rhythm without murmurs, gallops, or rubs. RESPIRATORY: Breath sounds equal bilaterally. No accessory muscle use. GASTROINTESTINAL: right-sided Fistula with green/brown liquid stool, as before. Left-sided fistula with no significant output. No rebound or guarding.wound VAC in midline incision. no change . MUSCULOSKELETAL: No cyanosis, or edema. BACK: Nontender without obvious deformity. No CVA tenderness. A/P Assessment and Plan 11/08/16 hypokalemia. Replaced. Consult gastroenterology for shortcut syndrome. Ms. Wilson is a pleasant 71 year old female who was admitted to the hospital in Oct 2015 due to ischemic bowel and subsequently underwent resection of large , small bowel and cholecystectomy. 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 Patient was discharged to SNF but returned to the hospital due to post surgical complications. She underwent left foot amputation and subsequently had a lot of post surgical complications requiring wound vac. Her surgeon (Dr. Olvera) determined that patient was too high risk for further surgical intervention. Patient was on TPN and after discussing with Dr. Hill we switched patient to PO diet two days ago. Based on patient's desires, we spoke to Dr. Hill regarding a second surgical opinion. Dr. Hill was kind enough to consult Dr. Grajeda who evaluated patient on 10/07/2016. On 2015, patient was transferred to the main campus after she complained of severe abdominal pain and CT scan showed ischemic bowel. Due to septic shock, patient was started on Vancomycin and Cefepime prior to transfer. //Septic shock //Ischemic colitis //s/p Ex lap, resection of anterior abdominal wall fistula tract, resection of transverse colon to small bowel anastomosis, right sided ileostomy, left sided mucous fistula and partial removal of a ventral hernia mesh 10/08/16 -Cont Antibiotics as per Infectious disease - Echocardiogram cannot rule out vegetation. May need transesophageal echo, will defer to infectious disease.. -11/02. Sputum cultures ESBL positive. - Continue antimicrobials as per infectious disease. //COPD //Acute hypoxemic respiratory failure - s/p extubation on 10/10/2016. - Continue bronchodilators, Incentive spirometry. -On O2 5 L. Respiratory status stable. Monitor. //Acute kidney injury - resolved. Creatinine 2.70 ---> 0.78. - Kidney function stable. Continue monitor. //Acute blood loss anemia - s/p 4 units of PRBCs on 10/08/2016. - Hemoglobin continue stable. Monitor as necessary. -Hemoglobin stable. Continue to monitor. //Diabetes mellitus. -On TPN. Continue sliding scale. //Hypokalemia. Replaced. //Shortcut syndrome. Consult gastroenterology for possible gattex Full code. //Prophylaxis. Xarelto. Protonix IV. Discharge Planning management in ICU. Jaden Marshall MD Nov 08, 2016 23:03 Full code. Xarelto. Protonix IV. Discharge Planning management in ICU. Jaden Marshall MD Nov 08, 2016 23:03
[2016-11-09] VITALS (7 sets, daily range): BP systolic 122–161; BP diastolic 57–87; PULSE 86–99; RESP 16–19; TEMP 96.8–97.8; O2SAT 94–98
[2016-11-09] MEDS: INSULIN ASPART SUPPLEMENTAL SCALE SQ SCH ×6 (01:23→22:08)
[2016-11-09] MEDS: SODIUM CHLORIDE 0.9% FLUSH 5 ML FLUSH IVF PRN (03:30)
[2016-11-09] MEDS: HYDROmorphone HCL PF 1 MG/ML VIAL IV PUSH PRN ×4 (03:31→21:34)
[2016-11-09] MEDS: SODIUM CHLOR 0.9% 1000 ML INJ 1,000 ML IV SCH (03:34)
[2016-11-09] MEDS: OXYBUTYNIN CHLORIDE 5 MG TAB PO SCH ×3 (06:09→21:30)
[2016-11-09 06:43] LABS: BASOPHIL # 0.1 TH/MM3 (0-0.2); BASOPHIL % 1.4 % (0.0-2.0); EOSINOPHIL # 0.4 TH/MM3 (0-0.4); EOSINOPHIL % 3.6 % (0.0-4.0); HEMATOCRIT 28.3 % (35.0-46.0); HEMO FLAGS DIFF FINAL; LYMPH % 36.1 % (9.0-44.0); LYMPHOCYTE # 3.6 TH/MM3 (1.0-4.8); MEAN CELL VOLUME 88.2 FL (80.0-100.0); MEAN CORPUSCULAR HEMOGLOBIN 29.9 PG (27.0-34.0); MEAN CORPUSCULAR HGB CONC 33.9 % (32.0-36.0); MONO % 8.6 % (0.0-8.0); NEUT % 50.3 % (16.0-70.0); PLATELET COUNT 386 TH/MM3 (150-450); RED BLOOD COUNT 3.21 MIL/MM3 (4.00-5.30); RED CELL DISTRIBUTION WIDTH 17.9 % (11.6-17.2); WHITE BLOOD COUNT 9.9 TH/MM3 (4.0-11.0)
[2016-11-09 07:19] LABS: BICARBONATE 28.1 MEQ/L (21.0-32.0); POTASSIUM 3.6 MEQ/L (3.5-5.1)
[2016-11-09] MEDS: CHLORHEXIDINE 0.12% (ORAL KIT) 15 ML CUP MT SCH ×2 (08:00→20:00)
[2016-11-09] MEDS: CALCITRIOL 0.25 MCG CAP PO SCH (08:32)
[2016-11-09] MEDS: CARVEDILOL 3.125 MG TAB PO SCH ×2 (08:32→21:31)
[2016-11-09] MEDS: ZINC SULFATE 220 MG CAP PO SCH (08:32)
[2016-11-09] MEDS: FERROUS SULFATE 325 MG (65 MG ELEMENTAL IRON) TAB PO SCH (08:32)
[2016-11-09] MEDS: CALCIUM/VITAMIN D 250 MG/125 U TAB PO SCH ×2 (08:32→21:30)
[2016-11-09] MEDS: DULoxetine HCl DR 30 MG CAP PO SCH (08:32)
[2016-11-09] MEDS: SODIUM CHLORIDE 0.9% FLUSH 5 ML FLUSH IVF SCH ×2 (08:33→21:34)
[2016-11-09] MEDS: NYSTATIN 100,000 U/GM PWD 15 GM BTL TOPICAL SCH ×2 (08:33→22:09)
[2016-11-09] MEDS: ONDANSETRON HCL 4 MG/2 ML VIAL IV PUSH PRN ×2 (08:46→17:27)
--- NOTE | 2016-11-09 10:18 | PD.CONS ---
HPI History of Present Illness This is unfortunate 71 year old female with lots of surgical complications with history of complicated PAD, left BKA, cholecystectomy, Short-bowel syndrome, TPN dependent, who had gangrene of the large bowel and severe mesenteric ischemia due to occlusion of the superior mesenteric artery and branches last year who is followed by (Dr. Olvera), Dr. Amaral. She subsequently underwent right colectomy, resection of a large amount of small bowel; this was followed by another surgery or two in the next month or two and the patient then recovered. 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 Subsequently patient underwent exploratory laparotomy with resection of the segment of the large bowel containing the anastomosis to the small bowel and the fistula, end ileostomy and mucous fistula colostomy creation and removal of segments of ventral hernia mesh placed at some point many years in the past. Currently patient is on TPN, very weak, reports some nausea and vomiting. ID on the case, vascular surgeon on the case. She is on O2, very poor PO intake. She has wound vac in place to mid abd. Ileostomy and colostomy working well, green out put form ileostomy and brown stools from colostomy. CT No on (11/01/16) No abnormalities are seen with respect to the liver or spleen. Previously noted small fluid collections adjacent to the small bowel loops within the right lower quadrant are no longer present. The configuration of the small bowel loops adjacent to the intra- abdominal wall at the site of mesh repair are consistent with areas of adhesion. No evidence of bowel obstruction. Patient is very bad historian, most of HPI was obtained from medical chart. Gi services have been consulted for evaluation of placing the patient on Gattex. 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 Past Surgical History according to EMR, patient is very bad historian * Right mastectomy and reconstruction * Hysterectomy * Ischemic bowel, bowel resection 11/13/15 * Cholecystectomy 11/13/15 * Additional bowel resection and fistula closure 11/26/15 * Port * Left BKA 05/02/16 * Left BKA stump debridement and wound VAC placement 06/16/16 . (Gabriella Rousseau) Coded Allergies: Levaquin (Verified Allergy, Severe, Edema, 05/29/16) Penicillin (Unverified Allergy, Intermediate, hives, 03/10/16) Sulfa (Unverified Allergy, Intermediate, hives, 03/10/16) *MDRO Multi-Drug Resistant Organism (Verified Adverse Reaction, Unknown, ) ESBL+Klebsiella (leg) - 06/15/16; (sputum) - 11/01/16 Medications Current Medications Medications (Trade) Dose Ordered Sig/Shira Route Start Time Stop Time Status Last Admin (Rocaltrol) 0.25 mcg DAILY PO 06/15/16 09:00 11/09/16 08:32 (Ferrous Sulfate) 325 mg DAILY PO 06/15/16 09:00 11/09/16 08:32 (Pill Splitter) 1 ea UNSCH PRN OTHER 06/14/16 18:00 (Heparin Central Flush) 500 units UNSCH IVF 06/20/16 11:30 10/06/16 12:24 (NS Flush) 5 ml UNSCH PRN IVF 06/20/16 11:30 11/09/16 03:30 (Heparin Central Flush) 250 units UNSCH PRN IVF 06/20/16 11:30 07/26/16 14:54 (Mag-Al Plus Susp Liq) 30 ml Q6H PRN PO 07/09/16 16:45 09/28/16 21:39 (Tylenol) 650 mg Q4H PRN PO 07/11/16 05:45 11/08/16 06:20 (Mycostatin Powder) 1 applic Q12HR TOPICAL 07/11/16 12:00 11/09/16 08:33 (Remeron Soltab Odt) 15 mg HS PO 07/29/16 21:00 11/08/16 20:35 (Desitin 40% Oint) 1 applic UNSCH PRN TOPICAL 08/13/16 14:15 10/29/16 10:26 (Zinc Sulfate) 220 mg DAILY PO 09/04/16 09:00 11/09/16 08:32 (Cymbalta Dr) 30 mg DAILY PO 09/14/16 09:00 11/09/16 08:32 (Cardizem Cd) 240 mg DAILY PO 09/16/16 09:00 Hold 10/18/16 08:04 Gabapentin 300 mg 300 mg TID PO 10/06/16 13:00 Hold 10/09/16 13:39 Fat Emulsion Intravenous 250 ml @ 31.25 mls/ hr SuWe@20 IV-CENTRAL 10/08/16 20:00 11/08/16 22:18 (Mvi-12 Inj/ Folvite Inj/ Clinimix E 03/15) 2,010.2 ml @ 60 mls/hr Q24H IV-CENTRAL 10/08/16 20:00 11/08/16 22:19 (Zofran Inj) 4 mg Q6HR PRN IV PUSH 10/08/16 12:00 11/09/16 08:46 (NS Flush) 2 ml UNSCH PRN IVF 10/08/16 14:45 (NS Flush) 2 ml BID IVF 10/08/16 21:00 11/08/16 20:35 (Narcan Inj) 0.4 mg UNSCH PRN IV 10/08/16 14:45 (Peridex 0.12% Liq) 15 ml BID@08,20 MT 10/09/16 08:00 11/08/16 08:00 (Dilaudid Pf Inj) 0.5 mg Q3H PRN IV 10/11/16 12:00 11/06/16 22:30 (Dilaudid Pf Inj) 2 mg UNSCH PRN IV 10/12/16 10:45 11/03/16 15:03 (Ditropan) 2.5 mg Q8HR PO 10/14/16 14:41 11/09/16 06:09 (Lasix) 20 mg BID@09,18 PO 10/18/16 18:00 Hold 10/18/16 17:13 (Tylenol) 650 mg Q4H PRN PO 10/18/16 20:15 10/30/16 20:24 (Oscal-D 250-125) 500 mg BID PO 10/23/16 21:00 11/09/16 08:32 (D50w (Vial) Inj) 25 ml UNSCH PRN IV PUSH 10/24/16 16:15 (Glucagon Inj) 1 mg UNSCH PRN OTHER 10/24/16 16:15 Carvedilol 3.125 mg 3.125 mg Q12HR PO 10/26/16 15:21 11/09/16 08:32 Fluconazole/ Sodium Chloride 200 ml @ 100 mls/hr Q24H IV 10/30/16 17:00 11/08/16 19:15 (Ambisome Inj/ D5W 150 ml Inj) 150 ml @ 75 mls/hr Q24H IV 11/01/16 15:00 11/08/16 16:05 Hydromorphone HCl 1 mg 1 mg Q3H PRN IV PUSH 11/03/16 16:00 11/09/16 08:47 (INVanz INJ/NS Inj) 100 ml @ 200 mls/hr Q24H IV 11/04/16 12:00 11/08/16 14:06 (Xarelto) 15 mg DAILY PO 11/08/16 09:00 11/08/16 14:08 Family History The patient's mother of breast cancer, and her father of "a massive heart attack." There is a positive family history for diabetes. . Social History no smoking no alcohol (Gabriella Rousseau) Review of Systems Constitutional: COMPLAINS OF: Fatigue, Chills Eyes: DENIES: Photosensitivity Ears, nose, mouth, throat: DENIES: Hoarseness Respiratory: DENIES: Shortness of breath Cardiovascular: DENIES: Lower Extremity Edema Gastrointestinal: COMPLAINS OF: Abdominal pain, Diarrhea, Nausea, Vomiting, Anorexia, DENIES: Black stools, Bloody stools, Constipation, Difficulty Swallowing, Odynophagia, Swelling of Abdomen, Heartburn, Hematemesis Genitourinary: DENIES: Hematuria Musculoskeletal: DENIES: Neck pain Integumentary: DENIES: Jaundice Hematologic/lymphatic: DENIES: Bruising Immunologic/allergic: DENIES: Eczema Neurologic: DENIES: Abnormal gait Psychiatric: DENIES: Anxiety (Gabriella Rousseau) GI Exam Vitals I&O Vital Signs Date Time Temp Pulse Resp B/P Pulse Ox O2 Delivery O2 Flow Rate FiO2 11/09/16 00:00 96.8 86 19 143/77 98 11/08/16 20:33 94 Nasal Cannula 2.00 Humidified 11/08/16 20:00 98.4 96 19 136/64 94 11/08/16 18:24 94 Nasal Cannula 4.00 11/08/16 16:00 97.8 82 18 133/79 96 11/08/16 12:00 97.8 85 18 133/81 95 I/O 11/08/16 11/08/16 11/08/16 11/09/16 11/09/16 11/09/16 07:00 15:00 23:00 07:00 15:00 23:00 Intake Total 1770 ml 2069 ml 1435 ml 1830 ml Output Total 1600 ml 1000 ml 330 ml 2250 ml Balance 170 ml 1069 ml 1105 ml -420 ml Intake Oral 320 ml 60 ml 60 ml 120 ml IV Total 800 ml 1775 ml 1000 ml 923 ml TPN/PPN 650 ml 234 ml 375 ml 549 ml Lipid 238 ml Output Urine Total 450 ml 200 ml 300 ml 1200 ml Stool Total 1150 ml 800 ml 0 ml 1050 ml Drainage Total 30 ml 0 ml Imaging Last Impressions Chest X-Ray 11/03/16 0000 Signed Impressions: Service Date/Time: Thursday, November 03, 2016 15:03 - CONCLUSION: Subclavian central venous catheter which is in good position. No evidence of pneumothorax. Improving lung aeration with decreasing congestion and bibasilar airspace disease. Kendall Lara MD Abdomen CT 11/01/16 0000 Signed Impressions: Service Date/Time: October 15:20 - CONCLUSION: No abnormalities are seen with respect to the liver or spleen. Previously noted small fluid collections adjacent to the small bowel loops within the right lower quadrant are no longer present. The configuration of the small bowel loops adjacent to the intra-abdominal wall at the site of mesh repair are consistent with areas of adhesion. No evidence of bowel obstruction.. Hoda Ash MD Abdomen/Pelvis CT 10/19/16 0000 Signed Impressions: Service Date/Time: September 15:10 - CONCLUSION: 1. There are 2 small rim-enhancing fluid collections in the right mid abdomen adjacent to the distal ileum that extends into the ileostomy. These measure 2.6 x 1.3 cm and 2.1 x 1.6 cm. These could represent infected fluid collections but are too small to place a drainage catheter. There is an additional small subcapsular fluid collection along the anterior left lobe of the liver. 2. Additionally, there is wall thickening of the distal ileal loops along with marked mesenteric edema. 3. There is a small volume of free fluid in the left upper quadrant around the spleen and in the pelvis. 4. There is a new small left pleural effusion with compressive atelectasis and right lower lobe volume loss versus airspace consolidation. Calixto Uriostegui MD Liver Ultrasound 07/12/16 0000 Signed Impressions: Service Date/Time: Tuesday, July 12, 2016 18:07 - CONCLUSION: 1. No acute abnormality demonstrated. 2. Heterogeneous liver without measurable mass. 3. Small and heterogeneous spleen without a measurable mass. 4. Cortical thinning and scarring of the right kidney. 5. Previous cholecystectomy. Calixto Woodruff MD Chest CT 07/09/16 0000 Signed Impressions: Service Date/Time: Saturday, July 09, 2016 14:43 - CONCLUSION: 1. Small right pleural effusion and minimal right basilar consolidation. 2. 6 mm left basilar nodule. Followup CT chest 6 months recommended. Florian Pepper MD Lower Extremity Ultrasound 06/25/16 0000 Signed Impressions: Service Date/Time: Saturday, June 25, 2016 15:56 - CONCLUSION: Negative exam with no evidence of deep venous thrombosis. Soft tissue edema. Mike Leija MD Port Line Insertion 06/20/16 0000 Signed Impressions: Service Date/Time: Monday, June 20, 2016 08:53 - CONCLUSION: Uncomplicated ultrasound and fluoroscopic guided implanted central venous port catheter placement as described in detail above. An 8 [place] Power port was placed. Kevan Salgado Jr., MD Laboratory Test 11/09/16 06:10 White Blood Count 9.9 TH/MM3 Red Blood Count 3.21 MIL/MM3 Hemoglobin 9.6 GM/DL Hematocrit 28.3 % Mean Corpuscular Volume 88.2 FL Mean Corpuscular Hemoglobin 29.9 PG Mean Corpuscular Hemoglobin 33.9 % Concent Red Cell Distribution Width 17.9 % Platelet Count 386 TH/MM3 Mean Platelet Volume 8.9 FL Neutrophils (%) (Auto) 50.3 % Lymphocytes (%) (Auto) 36.1 % Monocytes (%) (Auto) 8.6 % Eosinophils (%) (Auto) 3.6 % Basophils (%) (Auto) 1.4 % Neutrophils # (Auto) 5.0 TH/MM3 Lymphocytes # (Auto) 3.6 TH/MM3 Monocytes # (Auto) 0.9 TH/MM3 Eosinophils # (Auto) 0.4 TH/MM3 Basophils # (Auto) 0.1 TH/MM3 CBC Comment DIFF FINAL Differential Comment Sodium Level 142 MEQ/L Potassium Level 3.6 MEQ/L Chloride Level 108 MEQ/L Carbon Dioxide Level 28.1 MEQ/L Anion Gap 6 MEQ/L Blood Urea Nitrogen 28 MG/DL Creatinine 0.95 MG/DL Estimat Glomerular Filtration 58 ML/MIN Rate Random Glucose 147 MG/DL Calcium Level 9.5 MG/DL Physical Examination HEENT: paler, normocephalic; atraumatic; no jaundice. NECK: Neck is supple, no JVD, no lymphadenopathy. CHEST: Chest is clear to auscultation and percussion. CARDIAC: Regular rate and rhythm with no murmur gallop or rubs. ABDOMEN: Right-sided ileostomy with green/brown liquid stool. Left-sided colostomy with brown output. No rebound or guarding.wound VAC in midline incisions. bowel sounds are present in all four quadrants. EXTREMITIES:BKA on the left SKIN: surgical wound in mid abd with wound vac, BKA on the left CAREER COACH: ; alert and oriented times three. (Gabriella Rousseau) Assessment and Plan Plan This is unfortunate 71 year old female with lots of surgical complications with history of complicated PAD, left BKA, cholecystectomy, who had gangrene of the large bowel and severe mesenteric ischemia due to occlusion of the superior mesenteric artery and branches last year who is followed by (Dr. Olvera), and Dr. Amaral. She subsequently underwent right colectomy, resection of a large amount of small bowel; this was followed by another surgery or two in the next month or two and the patient then recovered. 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 Subsequently patient underwent exploratory laparotomy with resection of the segment of the large bowel containing the anastomosis to the small bowel and the fistula, end ileostomy and mucous fistula colostomy creation and removal of segments of ventral hernia mesh placed at some point many years in the past. Currently patient is on TPN, very weak, reports some nausea and vomiting. ID on the case, vascular surgeon on the case. She is on O2, very poor PO intake. She has wound vac in place to mid abd. Ileostomy and colostomy working well, green out put form ileostomy and brown stools from colostomy. CT on (11/01/16) No abnormalities are seen with respect to the liver or spleen. Previously noted small fluid collections adjacent to the small bowel loops within the right lower quadrant are no longer present. The configuration of the small bowel loops adjacent to the intra-abdominal wall at the site of mesh repair are consistent with areas of adhesion. No evidence of bowel obstruction. Patient is very bad historian, most of HPI was obtained from medical chart. - Short gut syndrome- history as above, currently on TPN, poor po intake, significant out put from right ileostomy, she does have remote history of breast cancer Gi services have been consulted for evaluation of placing the patient on Gattex. Stools studies negative for C-diff or other pathogens - Anemia- no active bleeding, most likely secondary to above Plan: - Cont. TPN and JULES - It is okay to try Gattex, will discuss with Dr. Olguin - Trial of cholestyramine, Lomotil - Supportive care - Patient seen and examined by dr. Bustamante and myself and this note is written on his behalf. (Gabriella Rousseau) Physician Comments Seen and examined with LOBO, history reviewed. Gattex good option but is an expensive medicine and is needed terminal gauger to be of benefit. Daily cost of injection $1500, for a monthly cost of $76917. Needs to be able to continue medicine as outpt. For now try cholestyramine 4gm po bid and lomotil to slow down intestinal motility. Discused with nurse. Thank you. (Jean Bustamante MD) Gabriella Rousseau Nov 09, 2016 10:18 Jean Bustamante MD Nov 09, 2016 18:00
[2016-11-09] MEDS: ERTAPENEM INJ 1,000 MG in SODIUM CHLORIDE 0.9% INJ 100 ML IV SCH (12:16)
--- NOTE | 2016-11-09 12:24 | HHI.PR ---
Subjective Remarks The patient was resting comfortably. She said she had pain in her right foot. She said that pain is chronic. She said she wants to start working with physical therapy more. She says she has been able to drink her Ensures. Discussed with nursing. Objective Vitals Vital Signs Date Time Temp Pulse Resp B/P Pulse Ox O2 Delivery O2 Flow Rate FiO2 11/09/16 08:17 94 Nasal Cannula 4.00 11/09/16 08:00 96.8 94 16 154/67 95 11/09/16 00:00 96.8 86 19 143/77 98 11/08/16 20:33 94 Nasal Cannula 2.00 Humidified 11/08/16 20:00 98.4 96 19 136/64 94 11/08/16 18:24 94 Nasal Cannula 4.00 11/08/16 16:00 97.8 82 18 133/79 96 I/O 11/08/16 11/08/16 11/08/16 11/09/16 11/09/16 11/09/16 07:00 15:00 23:00 07:00 15:00 23:00 Intake Total 1770 ml 2069 ml 1435 ml 1830 ml Output Total 1600 ml 1000 ml 330 ml 2250 ml Balance 170 ml 1069 ml 1105 ml -420 ml Intake Oral 320 ml 60 ml 60 ml 120 ml IV Total 800 ml 1775 ml 1000 ml 923 ml TPN/PPN 650 ml 234 ml 375 ml 549 ml Lipid 238 ml Output Urine Total 450 ml 200 ml 300 ml 1200 ml Stool Total 1150 ml 800 ml 0 ml 1050 ml Drainage Total 30 ml 0 ml Result Diagram: 11/09/16 0610 11/09/16 0610 Imaging Last Impressions Chest X-Ray 11/03/16 0000 Signed Impressions: Service Date/Time: Thursday, November 03, 2016 15:03 - CONCLUSION: Subclavian central venous catheter which is in good position. No evidence of pneumothorax. Improving lung aeration with decreasing congestion and bibasilar airspace disease. Kendall Lara MD Abdomen CT 11/01/16 0000 Signed Impressions: Service Date/Time: October 15:20 - CONCLUSION: No abnormalities are seen with respect to the liver or spleen. Previously noted small fluid collections adjacent to the small bowel loops within the right lower quadrant are no longer present. The configuration of the small bowel loops adjacent to the intra-abdominal wall at the site of mesh repair are consistent with areas of adhesion. No evidence of bowel obstruction.. Hoda Ash MD Abdomen/Pelvis CT 10/19/16 0000 Signed Impressions: Service Date/Time: September 15:10 - CONCLUSION: 1. There are 2 small rim-enhancing fluid collections in the right mid abdomen adjacent to the distal ileum that extends into the ileostomy. These measure 2.6 x 1.3 cm and 2.1 x 1.6 cm. These could represent infected fluid collections but are too small to place a drainage catheter. There is an additional small subcapsular fluid collection along the anterior left lobe of the liver. 2. Additionally, there is wall thickening of the distal ileal loops along with marked mesenteric edema. 3. There is a small volume of free fluid in the left upper quadrant around the spleen and in the pelvis. 4. There is a new small left pleural effusion with compressive atelectasis and right lower lobe volume loss versus airspace consolidation. Calixto Uriostegui MD Liver Ultrasound 07/12/16 0000 Signed Impressions: Service Date/Time: Tuesday, July 12, 2016 18:07 - CONCLUSION: 1. No acute abnormality demonstrated. 2. Heterogeneous liver without measurable mass. 3. Small and heterogeneous spleen without a measurable mass. 4. Cortical thinning and scarring of the right kidney. 5. Previous cholecystectomy. Calixto Woodruff MD Chest CT 07/09/16 0000 Signed Impressions: Service Date/Time: Saturday, July 09, 2016 14:43 - CONCLUSION: 1. Small right pleural effusion and minimal right basilar consolidation. 2. 6 mm left basilar nodule. Followup CT chest 6 months recommended. Florian Pepper MD Lower Extremity Ultrasound 06/25/16 0000 Signed Impressions: Service Date/Time: Saturday, June 25, 2016 15:56 - CONCLUSION: Negative exam with no evidence of deep venous thrombosis. Soft tissue edema. Mike Leija MD Port Line Insertion 06/20/16 0000 Signed Impressions: Service Date/Time: Monday, June 20, 2016 08:53 - CONCLUSION: Uncomplicated ultrasound and fluoroscopic guided implanted central venous port catheter placement as described in detail above. An 8 [place] Power port was placed. Kevan Salgado Jr., MD Objective Remarks GENERAL: lying in bed. Awake, alert. Appears comfortable. SKIN: Warm and dry. HEAD: Normocephalic. EYES: No scleral icterus. No injection or drainage. NECK: Supple, trachea midline. No JVD. CARDIOVASCULAR: Regular rate and rhythm without murmurs, gallops, or rubs. RESPIRATORY: Breath sounds equal bilaterally. No accessory muscle use. GASTROINTESTINAL: right-sided Fistula with green/brown liquid stool, as before. Left-sided fistula with no significant output. No rebound or guarding. Wound VAC in midline incision. MUSCULOSKELETAL: No cyanosis, or edema. Right subclavian in place. BACK: Nontender without obvious deformity. No CVA tenderness. PSYCH: Slightly flattened affect. Procedures Left stump debridement by Dr. Hill on 06/15/16 Bedside debridement of preperitoneal fat that was protruding from the abdominal fistula 09/01/16 central line placement Exploratory laparotomy, resection of the anterior abdominal wall fistula tract, resection of the transverse colon to small bowel anastomosis, lysis of adhesions of the small bowel with repair of two enterotomies, right-sided ileostomy, left-sided mucous fistula and partial removal of a ventral hernia mesh. Medications and IVs Current Medications Medications (Trade) Dose Ordered Sig/Shira Route Start Time Stop Time Status Last Admin (Rocaltrol) 0.25 mcg DAILY PO 06/15/16 09:00 11/09/16 08:32 (Ferrous Sulfate) 325 mg DAILY PO 06/15/16 09:00 11/09/16 08:32 (Pill Splitter) 1 ea UNSCH PRN OTHER 06/14/16 18:00 (Heparin Central Flush) 500 units UNSCH IVF 06/20/16 11:30 10/06/16 12:24 (NS Flush) 5 ml UNSCH PRN IVF 06/20/16 11:30 11/09/16 03:30 (Heparin Central Flush) 250 units UNSCH PRN IVF 06/20/16 11:30 07/26/16 14:54 (Mag-Al Plus Susp Liq) 30 ml Q6H PRN PO 07/09/16 16:45 09/28/16 21:39 (Tylenol) 650 mg Q4H PRN PO 07/11/16 05:45 11/08/16 06:20 (Mycostatin Powder) 1 applic Q12HR TOPICAL 07/11/16 12:00 11/09/16 08:33 (Remeron Soltab Odt) 15 mg HS PO 07/29/16 21:00 11/08/16 20:35 (Desitin 40% Oint) 1 applic UNSCH PRN TOPICAL 08/13/16 14:15 10/29/16 10:26 (Zinc Sulfate) 220 mg DAILY PO 09/04/16 09:00 11/09/16 08:32 (Cymbalta Dr) 30 mg DAILY PO 09/14/16 09:00 11/09/16 08:32 (Cardizem Cd) 240 mg DAILY PO 09/16/16 09:00 Hold 10/18/16 08:04 Gabapentin 300 mg 300 mg TID PO 10/06/16 13:00 Hold 10/09/16 13:39 Fat Emulsion Intravenous 250 ml @ 31.25 mls/ hr SuWe@20 IV-CENTRAL 10/08/16 20:00 11/08/16 22:18 (Mvi-12 Inj/ Folvite Inj/ Clinimix E 03/15) 2,010.2 ml @ 60 mls/hr Q24H IV-CENTRAL 10/08/16 20:00 11/08/16 22:19 (Zofran Inj) 4 mg Q6HR PRN IV PUSH 10/08/16 12:00 11/09/16 08:46 (NS Flush) 2 ml UNSCH PRN IVF 10/08/16 14:45 (NS Flush) 2 ml BID IVF 10/08/16 21:00 11/08/16 20:35 (Narcan Inj) 0.4 mg UNSCH PRN IV 10/08/16 14:45 (Peridex 0.12% Liq) 15 ml BID@08,20 MT 10/09/16 08:00 11/08/16 08:00 (Dilaudid Pf Inj) 0.5 mg Q3H PRN IV 10/11/16 12:00 11/06/16 22:30 (Dilaudid Pf Inj) 2 mg UNSCH PRN IV 10/12/16 10:45 11/03/16 15:03 (Ditropan) 2.5 mg Q8HR PO 10/14/16 14:41 11/09/16 06:09 (Lasix) 20 mg BID@,18 PO 10/18/16 18:00 Hold 10/18/16 17:13 (Tylenol) 650 mg Q4H PRN PO 10/18/16 20:15 10/30/16 20:24 (Oscal-D 250-125) 500 mg BID PO 10/23/16 21:00 11/09/16 08:32 (D50w (Vial) Inj) 25 ml UNSCH PRN IV PUSH 10/24/16 16:15 (Glucagon Inj) 1 mg UNSCH PRN OTHER 10/24/16 16:15 Carvedilol 3.125 mg 3.125 mg Q12HR PO 10/26/16 15:21 11/09/16 08:32 Fluconazole/ Sodium Chloride 200 ml @ 100 mls/hr Q24H IV 10/30/16 17:00 11/08/16 19:15 (Ambisome Inj/ D5W 150 ml Inj) 150 ml @ 75 mls/hr Q24H IV 11/01/16 15:00 11/08/16 16:05 Hydromorphone HCl 1 mg 1 mg Q3H PRN IV PUSH 11/03/16 16:00 11/09/16 08:47 (INVanz INJ/NS Inj) 100 ml @ 200 mls/hr Q24H IV 11/04/16 12:00 11/09/16 12:16 (Xarelto) 15 mg DAILY PO 11/08/16 09:00 11/08/16 14:08 Date of Insertion: Jun 20, 2016 Side: Left A/P Problem List: (1) Septic shock ICD Code: A41.9 Status: Acute (2) Acute hypoxemic respiratory failure ICD Code: J96.01 Status: Acute (3) Ischemic colitis ICD Code: K55.9 Status: Resolved (4) COPD (chronic obstructive pulmonary disease) ICD Code: J44.9 Status: Chronic (5) depression Status: Chronic (6) Peripheral neuropathy ICD Code: G62.9 Status: Chronic (7) Chronic diastolic (congestive) heart failure ICD Code: I50.32 Status: Chronic (8) ZIA (acute kidney injury) ICD Code: N17.9 Status: Resolved (9) emergent Ex Lap for ischemic bowel/perforation 10/08/16 Status: Acute (10) Acute blood loss anemia ICD Code: D62 Status: Acute Assessment and Plan Ms. Wilson is a pleasant 71 year old female who was admitted to the hospital in Oct 2015 due to ischemic bowel and subsequently underwent resection of large , small bowel and cholecystectomy. 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 Patient was discharged to SNF but returned to the hospital due to post surgical complications. She underwent left foot amputation and subsequently had a lot of post surgical complications requiring wound vac. Her surgeon (Dr. Olvera) determined that patient was too high risk for further surgical intervention. Patient was on TPN and after discussing with Dr. Hill we switched patient to PO diet. Based on patient's desires, we spoke to Dr. Hill regarding a second surgical opinion. Dr. Hill was kind enough to consult Dr. Grajeda who evaluated patient on 10/07/2016. On 10/08/2016, patient was transferred to the main campus after she complained of severe abdominal pain and CT scan showed ischemic bowel. Due to septic shock, patient was started on vancomycin and Cefepime prior to transfer. Septic shock/ Ischemic colitis S/p Ex lap, resection of anterior abdominal wall fistula tract, resection of transverse colon to small bowel anastomosis, right sided ileostomy, left sided mucous fistula and partial removal of a ventral hernia mesh 10/08/16. Has fungemia. Port and central line were removed. Chest abscess cultures positive for yeast. - follow up with surgery. - Echocardiogram cannot rule out vegetation. May need transesophageal echo, will defer to infectious disease. - cont ertapenem for ESBL + Kleb pneumo thru 11/16. - continue fluconazole and amphotericin B. - PT/OT. Malnutrition S/t bowel surgery. - encourage PO intake. - follow up with dietary. - continue TPN. - consider trial of Gattex. GI consult appreciated. COPD/ Acute hypoxemic respiratory failure S/p extubation on 10/10/2016. - Continue bronchodilators, incentive spirometry. - On O2 4 L 11/09. Acute blood loss anemia S/p 4 units of PRBCs on 10/08/2016. Hemoglobin continues to be stable. - Monitor as necessary. Diabetes mellitus On TPN. Glucose well controlled 11/09. - Continue sliding scale. PPx: Xarelto; Protonix. Discharge Planning Awaiting clinical improvement. Mike Ayala DO Nov 09, 2016 12:24
[2016-11-09] MEDS ORDERED: POTASSIUM CHLOR 20 MEQ PREMIX 100 ML IV ONE (12:45)
--- NOTE | 2016-11-09 15:01 | HHI.IDPN ---
Subjective Subjective Remarks Patient known to ID service. Chart reviewed. remains on NC O2 On TPN minimal po stool up to 3 L /day UOP is adequate Last blood clx negaive - final Complains of sores around the mouth much like prior ones when she was diagnosed with zinc deficiency. Antibiotics fluconazol lip AMB vanco azctam Lines Port: removed Past Medical History Ischemic Bowel w/ Resection and development of Enterocutaneous Fistula Short gut syndrome Asthma Depression and COPD Past Surgical History Bowel Resection 11/13/15 and 11/26/15 Left BKA Right Mastectomy Hysterectomy, Allergies: Coded Allergies: Levaquin (Verified Allergy, Severe, Edema, 05/29/16) Penicillin (Unverified Allergy, Intermediate, hives, 03/10/16) Sulfa (Unverified Allergy, Intermediate, hives, 03/10/16) *MDRO Multi-Drug Resistant Organism (Verified Adverse Reaction, Unknown, ) ESBL+Klebsiella (leg) - 06/15/16; (sputum) - 11/01/16 Objective . Vital Signs Date Time Temp Pulse Resp B/P Pulse Ox O2 Delivery O2 Flow Rate FiO2 11/09/16 12:00 97.8 89 16 132/57 96 11/09/16 08:17 94 Nasal Cannula 4.00 11/09/16 08:00 96.8 94 16 154/67 95 11/09/16 00:00 96.8 86 19 143/77 98 11/08/16 20:33 94 Nasal Cannula 2.00 Humidified 11/08/16 20:00 98.4 96 19 136/64 94 11/08/16 18:24 94 Nasal Cannula 4.00 11/08/16 16:00 97.8 82 18 133/79 96 11/08/16 11/08/16 11/09/16 15:00 23:00 07:00 Intake Total 2069 ml 1435 ml 1830 ml Output Total 1000 ml 330 ml 2250 ml Balance 1069 ml 1105 ml -420 ml Intake Oral 60 ml 60 ml 120 ml IV Total 1775 ml 1000 ml 923 ml TPN/PPN 234 ml 375 ml 549 ml Lipid 238 ml Output Urine Total 200 ml 300 ml 1200 ml Stool Total 800 ml 0 ml 1050 ml Drainage Total 30 ml 0 ml . Laboratory Tests Test 11/08/16 11/09/16 05:29 06:10 White Blood Count 8.5 TH/MM3 9.9 TH/MM3 Red Blood Count 3.11 MIL/MM3 3.21 MIL/MM3 Hemoglobin 8.8 GM/DL 9.6 GM/DL Hematocrit 27.5 % 28.3 % Mean Corpuscular Volume 88.5 FL 88.2 FL Mean Corpuscular Hemoglobin 28.4 PG 29.9 PG Mean Corpuscular Hemoglobin 32.0 % 33.9 % Concent Red Cell Distribution Width 18.2 % 17.9 % Platelet Count 306 TH/MM3 386 TH/MM3 Mean Platelet Volume 8.7 FL 8.9 FL Neutrophils (%) (Auto) 40.2 % 50.3 % Lymphocytes (%) (Auto) 43.9 % 36.1 % Monocytes (%) (Auto) 10.6 % 8.6 % Eosinophils (%) (Auto) 4.1 % 3.6 % Basophils (%) (Auto) 1.2 % 1.4 % Neutrophils # (Auto) 3.4 TH/MM3 5.0 TH/MM3 Lymphocytes # (Auto) 3.7 TH/MM3 3.6 TH/MM3 Monocytes # (Auto) 0.9 TH/MM3 0.9 TH/MM3 Eosinophils # (Auto) 0.3 TH/MM3 0.4 TH/MM3 Basophils # (Auto) 0.1 TH/MM3 0.1 TH/MM3 CBC Comment DIFF FINAL DIFF FINAL Differential Comment Laboratory Tests Test 11/08/16 11/09/16 05:29 06:10 Sodium Level 141 MEQ/L 142 MEQ/L Potassium Level 3.4 MEQ/L 3.6 MEQ/L Chloride Level 103 MEQ/L 108 MEQ/L Carbon Dioxide Level 30.8 MEQ/L 28.1 MEQ/L Anion Gap 7 MEQ/L 6 MEQ/L Blood Urea Nitrogen 31 MG/DL 28 MG/DL Creatinine 0.98 MG/DL 0.95 MG/DL Estimat Glomerular Filtration 56 ML/MIN 58 ML/MIN Rate Random Glucose 127 MG/DL 147 MG/DL Calcium Level 9.7 MG/DL 9.5 MG/DL Total Bilirubin 1.1 MG/DL Direct Bilirubin 0.7 MG/DL Indirect Bilirubin 0.4 MG/DL Aspartate Amino Transf 33 U/L (AST/SGOT) Alanine Aminotransferase 17 U/L (ALT/SGPT) Alkaline Phosphatase 231 U/L Total Protein 7.4 GM/DL Albumin 1.6 GM/DL Imaging Last Impressions Chest X-Ray 11/03/16 0000 Signed Impressions: Service Date/Time: Thursday, November 03, 2016 15:03 - CONCLUSION: Subclavian central venous catheter which is in good position. No evidence of pneumothorax. Improving lung aeration with decreasing congestion and bibasilar airspace disease. Kendall Lara MD Abdomen CT 11/01/16 0000 Signed Impressions: Service Date/Time: October 15:20 - CONCLUSION: No abnormalities are seen with respect to the liver or spleen. Previously noted small fluid collections adjacent to the small bowel loops within the right lower quadrant are no longer present. The configuration of the small bowel loops adjacent to the intra-abdominal wall at the site of mesh repair are consistent with areas of adhesion. No evidence of bowel obstruction.. Hoda Ash MD Abdomen/Pelvis CT 10/19/16 0000 Signed Impressions: Service Date/Time: September 15:10 - CONCLUSION: 1. There are 2 small rim-enhancing fluid collections in the right mid abdomen adjacent to the distal ileum that extends into the ileostomy. These measure 2.6 x 1.3 cm and 2.1 x 1.6 cm. These could represent infected fluid collections but are too small to place a drainage catheter. There is an additional small subcapsular fluid collection along the anterior left lobe of the liver. 2. Additionally, there is wall thickening of the distal ileal loops along with marked mesenteric edema. 3. There is a small volume of free fluid in the left upper quadrant around the spleen and in the pelvis. 4. There is a new small left pleural effusion with compressive atelectasis and right lower lobe volume loss versus airspace consolidation. Calixto Uriostegui MD Liver Ultrasound 07/12/16 0000 Signed Impressions: Service Date/Time: Tuesday, July 12, 2016 18:07 - CONCLUSION: 1. No acute abnormality demonstrated. 2. Heterogeneous liver without measurable mass. 3. Small and heterogeneous spleen without a measurable mass. 4. Cortical thinning and scarring of the right kidney. 5. Previous cholecystectomy. Calixto Woodruff MD Chest CT 07/09/16 0000 Signed Impressions: Service Date/Time: Saturday, July 09, 2016 14:43 - CONCLUSION: 1. Small right pleural effusion and minimal right basilar consolidation. 2. 6 mm left basilar nodule. Followup CT chest 6 months recommended. Florian Pepper MD Lower Extremity Ultrasound 06/25/16 0000 Signed Impressions: Service Date/Time: Saturday, June 25, 2016 15:56 - CONCLUSION: Negative exam with no evidence of deep venous thrombosis. Soft tissue edema. Mike Leija MD Port Line Insertion 06/20/16 0000 Signed Impressions: Service Date/Time: Monday, June 20, 2016 08:53 - CONCLUSION: Uncomplicated ultrasound and fluoroscopic guided implanted central venous port catheter placement as described in detail above. An 8 [place] Power port was placed. Kevan Salgado Jr., MD Physical Exam CONSTITUTIONAL/GENERAL: fully awake and alert ill appearing Conversant TUBES/LINES/DRAINS: R SCV cath removed PORT incision is dry and clean at previous PORT site, no skin changes SKIN: No jaundice, rashes, or lesions. Skin temperature appropriate. Not diaphoretic. HEAD: Atraumatic. Normocephalic. EYES: Pupils equal and round and reactive. Extraocular motions intact. No scleral icterus. No injection or drainage. Fundi not examined. ENT: Oral mucosae without visible erythema, exudates, masses, or lesions. CARDIOVASCULAR: Regular rate and rhythm without murmurs, gallops, or rubs. No JVD. RESPIRATORY/CHEST: Symmetric, unlabored respirations. Rhonchi to auscultation. Breath sounds equal bilaterally. + occ wet cough GASTROINTESTINAL: Abdomen with VAC dressing in place serosang dc minimally distended quite tender to palpation + BS large amount of liquid brown stool from colostomy; more dark blood from mucoid fistula GENITOURINARY: Without palpable bladder distension. Hamlin catheter in place with clear yellow urine MUSCULOSKELETAL: Extremities without clubbing, cyanosis, No edema. 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 fungal endocarditis: repat 2 D echo negative for vegetatopins - no e/o intraabdominal source of fungemia on CT FLoaters - no fungal endophthalmitis per ophthal eval Intraabd abscesses, small : poly Hill: no clin significance nosocomial PNA , KLEBSIELLA PNEUMONIAE ESBL POS Prognosis is not good in the view of persistent infection poor overall performance status and TPN dependence RECOMMENDATION cont fluconazole cont AMB, liposomal Probably will need endocarditis Rx since she is not a candidate for MELVA -consider MELVA though given into fact that pt is not a candidate for cardiac surgery will defer the procedure for now R SCV central line; to be removed today OK to get PICC now. Vascular consult. cont meropenem for ESBL + Kleb pneumo thru 11/16/16. Follow cultures Follow clinically. Follow BMP, Mg,Phos while on Ampho B. poly RN I will be OOT thru 11/30Dr Lorena will cover for me Dorcas Carrillo MD Nov 09, 2016 15:01
[2016-11-09] MEDS: FLUCONAZOLE 400 MG PREMIX BAG 200 ML IV SCH (15:59)
[2016-11-09] MEDS: AMPHOTERICIN B LIPOSOME IV SCH ×2 (16:17)
[2016-11-09] MEDS: WATE IV SCH ×2 (16:17)
[2016-11-09] MEDS: DEXTROSE 5% IV SCH ×2 (16:17)
[2016-11-09] MEDS: MIRTAZAPINE ODT 15 MG TAB PO SCH (21:30)
[2016-11-09] MEDS: CLINIMIX E 5/25 2000 mL- >42 mls/hr IV-CENTRAL SCH ×3 (22:09)
[2016-11-10] VITALS: BP 136/73; PULSE 88; RESP 20; TEMP 96.8; O2SAT 95
[2016-11-10] MEDS: OXYBUTYNIN CHLORIDE 5 MG TAB PO SCH ×3 (05:38→20:13)
[2016-11-10] MEDS: SODIUM CHLORIDE 0.9% FLUSH 5 ML FLUSH IVF PRN (05:40)
[2016-11-10] MEDS: INSULIN ASPART SUPPLEMENTAL SCALE SQ SCH ×4 (05:49→20:14)
[2016-11-10] MEDS: HYDROmorphone HCL PF 1 MG/ML VIAL IV PUSH PRN ×4 (06:10→18:09)
[2016-11-10 06:57] LABS: HEMATOCRIT 28.4 % (35.0-46.0); MEAN CELL VOLUME 88.1 FL (80.0-100.0); MEAN CORPUSCULAR HEMOGLOBIN 28.4 PG (27.0-34.0); MEAN CORPUSCULAR HGB CONC 32.2 % (32.0-36.0); PLATELET COUNT 364 TH/MM3 (150-450); RED BLOOD COUNT 3.23 MIL/MM3 (4.00-5.30); RED CELL DISTRIBUTION WIDTH 18.6 % (11.6-17.2); REVIEW FLAG FINAL; WHITE BLOOD COUNT 9.4 TH/MM3 (4.0-11.0)
[2016-11-10 07:19] LABS: BICARBONATE 29.4 MEQ/L (21.0-32.0); POTASSIUM 3.4 MEQ/L (3.5-5.1)
[2016-11-10 08:00] VITALS: BP 138/77; PULSE 102; RESP 20; TEMP 96.2; O2SAT 92
[2016-11-10] MEDS: CHLORHEXIDINE 0.12% (ORAL KIT) 15 ML CUP MT SCH ×2 (08:00→20:00)
[2016-11-10 08:34] VITALS: O2SAT 94
[2016-11-10] MEDS: RESP: ALBUTEROL 2.5 MG/IPRATROPIUM 0.5 MG NEB (PRN) NEB (08:34)
[2016-11-10] MEDS: SODIUM CHLORIDE 0.9% FLUSH 5 ML FLUSH IVF SCH ×2 (09:00→20:15)
[2016-11-10] MEDS: FERROUS SULFATE 325 MG (65 MG ELEMENTAL IRON) TAB PO SCH (09:06)
[2016-11-10] MEDS: CARVEDILOL 3.125 MG TAB PO SCH (09:06)
[2016-11-10] MEDS: RIVAROXABAN 15 MG TAB PO SCH (09:06)
[2016-11-10] MEDS: CALCIUM/VITAMIN D 250 MG/125 U TAB PO SCH ×2 (09:06→20:15)
[2016-11-10] MEDS: ZINC SULFATE 220 MG CAP PO SCH (09:06)
[2016-11-10] MEDS: DULoxetine HCl DR 30 MG CAP PO SCH (09:06)
[2016-11-10] MEDS: CALCITRIOL 0.25 MCG CAP PO SCH (09:07)
[2016-11-10] MEDS: ONDANSETRON HCL 4 MG/2 ML VIAL IV PUSH PRN (09:19)
[2016-11-10] MEDS: NYSTATIN 100,000 U/GM PWD 15 GM BTL TOPICAL SCH ×2 (09:20→20:23)
--- NOTE | 2016-11-10 11:33 | HHI.GIFU ---
Subjective Remarks Pt resting in bed. Weak, states she has tremors at times. Mild abdominal discomfort. (Rama Kauffman) Objective Vitals I&O Vital Signs Date Time Temp Pulse Resp B/P Pulse Ox O2 Delivery O2 Flow Rate FiO2 11/10/16 08:34 94 Nasal Cannula 4.00 11/10/16 08:00 96.2 102 20 138/77 92 11/10/16 00:00 96.8 88 20 136/73 95 11/09/16 21:28 97 Nasal Cannula 2.00 Humidified 11/09/16 20:00 96.8 90 19 122/68 97 11/09/16 18:11 96 Nasal Cannula 4.00 11/09/16 16:00 97.0 99 16 161/87 97 11/09/16 12:00 97.8 89 16 132/57 96 I/O 11/09/16 11/09/16 11/09/16 11/10/16 11/10/16 11/10/16 07:00 15:00 23:00 07:00 15:00 23:00 Intake Total 1830 ml 1691 ml 1269 ml 1493 ml Output Total 2250 ml 1750 ml 1350 ml 650 ml Balance -420 ml -59 ml -81 ml 843 ml Intake Oral 120 ml 480 ml 240 ml 240 ml IV Total 923 ml 734 ml 593 ml 753 ml TPN/PPN 549 ml 477 ml 436 ml 500 ml Lipid 238 ml Output Urine Total 1200 ml 800 ml 450 ml 600 ml Stool Total 1050 ml 950 ml 900 ml 0 ml Drainage Total 0 ml 0 ml 0 ml 50 ml Laboratory Laboratory Tests Test 11/10/16 06:20 White Blood Count 9.4 Red Blood Count 3.23 Hemoglobin 9.2 Hematocrit 28.4 Mean Corpuscular Volume 88.1 Mean Corpuscular Hemoglobin 28.4 Mean Corpuscular Hemoglobin 32.2 Concent Red Cell Distribution Width 18.6 Platelet Count 364 Mean Platelet Volume 9.0 Sodium Level 143 Potassium Level 3.4 Chloride Level 107 Carbon Dioxide Level 29.4 Anion Gap 7 Blood Urea Nitrogen 30 Creatinine 0.92 Estimat Glomerular Filtration 60 Rate Random Glucose 150 Calcium Level 10.1 Phosphorus Level 4.1 Magnesium Level 2.0 Imaging Last Impressions Chest X-Ray 11/03/16 0000 Signed Impressions: Service Date/Time: Thursday, November 03, 2016 15:03 - CONCLUSION: Subclavian central venous catheter which is in good position. No evidence of pneumothorax. Improving lung aeration with decreasing congestion and bibasilar airspace disease. Kendall Lara MD Abdomen CT 11/01/16 0000 Signed Impressions: Service Date/Time: October 15:20 - CONCLUSION: No abnormalities are seen with respect to the liver or spleen. Previously noted small fluid collections adjacent to the small bowel loops within the right lower quadrant are no longer present. The configuration of the small bowel loops adjacent to the intra-abdominal wall at the site of mesh repair are consistent with areas of adhesion. No evidence of bowel obstruction.. Hoda Ash MD Abdomen/Pelvis CT 10/19/16 0000 Signed Impressions: Service Date/Time: September 15:10 - CONCLUSION: 1. There are 2 small rim-enhancing fluid collections in the right mid abdomen adjacent to the distal ileum that extends into the ileostomy. These measure 2.6 x 1.3 cm and 2.1 x 1.6 cm. These could represent infected fluid collections but are too small to place a drainage catheter. There is an additional small subcapsular fluid collection along the anterior left lobe of the liver. 2. Additionally, there is wall thickening of the distal ileal loops along with marked mesenteric edema. 3. There is a small volume of free fluid in the left upper quadrant around the spleen and in the pelvis. 4. There is a new small left pleural effusion with compressive atelectasis and right lower lobe volume loss versus airspace consolidation. Calixto Uriostegui MD Liver Ultrasound 07/12/16 0000 Signed Impressions: Service Date/Time: Tuesday, July 12, 2016 18:07 - CONCLUSION: 1. No acute abnormality demonstrated. 2. Heterogeneous liver without measurable mass. 3. Small and heterogeneous spleen without a measurable mass. 4. Cortical thinning and scarring of the right kidney. 5. Previous cholecystectomy. Calixto Woodruff MD Chest CT 07/09/16 0000 Signed Impressions: Service Date/Time: Saturday, July 09, 2016 14:43 - CONCLUSION: 1. Small right pleural effusion and minimal right basilar consolidation. 2. 6 mm left basilar nodule. Followup CT chest 6 months recommended. Florian Pepper MD Lower Extremity Ultrasound 06/25/16 0000 Signed Impressions: Service Date/Time: Saturday, June 25, 2016 15:56 - CONCLUSION: Negative exam with no evidence of deep venous thrombosis. Soft tissue edema. Mike Leija MD Port Line Insertion 06/20/16 0000 Signed Impressions: Service Date/Time: Monday, June 20, 2016 08:53 - CONCLUSION: Uncomplicated ultrasound and fluoroscopic guided implanted central venous port catheter placement as described in detail above. An 8 English Power port was placed. Kevan Salgado Jr., MD Physical Exam HEENT: Normocephalic; atraumatic; no jaundice. CHEST: Resp. even/unlabored. CARDIAC: RRR ABDOMEN: Soft, nondistended, tender; Ileostomy with large amount of greenish liquid stool. Left sided colostomy with small amount of brown stool. Midline abdominal wound with wound vac. EXTREMITIES: Left BKA. Tender right foot SKIN: Generalized pallor CRIMINAL ANALYST: Very lethargic. (Rama KauffmanP) Assessment and Plan Plan ASSESSMENT: - Short gut syndrome with high stool output. 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 This was then complicated by development of enterocutaneous fistula, which she then underwent exploratory laparotomy with resection of the segment of the large bowel containing the anastomosis to the small bowel and the fistula, end ileostomy and mucous fistula colostomy creation and removal of segments of ventral hernia mesh placed at some point many years in the past. She has a wound vac to her midline abdominal wound. She has high stool output from the ileostomy, with 1850cc-5850cc of stool output daily. Stool studies negative. She is on TPN. GI was consulted for evaluation for possible Gattex. This would be a good option, but is very expensive, Each injection is $1,500 and the monthly cost would be $45,000 a month. It is not available at this facility and should not be initiated unless this is something that could be continued at discharge. Call placed to Anuradha perla to ask her to contact her insurance and see if this would be approved at discharge. Will give trial of cholestyramine and scheduled lomotil to try to slow it down at this time. If this would be approved by her insurance, then we will speak to pharmacy to see if they could obtain this. Plan: - Cont. TPN and JULES - Trial of cholestyramine - Trial of scheduled Lomotil - Consult CM to contact patient's insurance to see if they will approve Gattex at discharge. (Call placed to Anuradha Pickering, no answer, left message) - If patient's insurance would approve this, then will ask pharmacy to try to obtain. - Monitor electrolytes - Monitor stool output - Supportive care - Further recommendations to follow based on results of above - Pt seen and examined by Dr. Bustamante and myself and this note is written on his behalf ADDENDUM: Spoke to Felicity in CM. She is still waiting to hear back from insurance defense paralegal regarding Gattex, but was able to speak to [facility]. Pt is a difficult placement and the plan is for her to return to [facility] and they are currently holding her bed. However, they state that they will not be able to accept her back if she requires the Gattex. (Rama Kauffman) Physician Comments Seen and examined with Ms. Jamari DIAMOND, start cholestyramine and lomotil. Garcia in progress to see if Gattex is an option due to high cost. (Jean Bustamante MD) Rama Kauffman Nov 10, 2016 11:33 Jean Bustamante MD Nov 10, 2016 16:24
[2016-11-10 12:00] VITALS: BP 127/69; PULSE 97; RESP 18; TEMP 97.4; O2SAT 94
[2016-11-10] MEDS: ERTAPENEM INJ 1,000 MG in SODIUM CHLORIDE 0.9% INJ 100 ML IV SCH (12:36)
[2016-11-10] MEDS: CHOLESTYRAMINE LIGHT 4 GM PACKAGE PO SCH ×2 (12:36→20:13)
[2016-11-10] MEDS: WATE IV SCH ×2 (14:30)
[2016-11-10] MEDS: DEXTROSE 5% IV SCH ×2 (14:30)
[2016-11-10] MEDS: DIPHENOXYLATE/ATROPINE 2.5 MG/0.025 MG TAB PO SCH ×2 (14:30→16:46)
[2016-11-10] MEDS: AMPHOTERICIN B LIPOSOME IV SCH ×2 (14:30)
--- NOTE | 2016-11-10 14:34 | HHI.PR ---
Subjective Remarks The pt was in bed, talking with palliative care. She complained of tremors in her upper and lower extremities and face that have been going on for a year. She says she worked with physical therapy. Objective Vitals Vital Signs Date Time Temp Pulse Resp B/P Pulse Ox O2 Delivery O2 Flow Rate FiO2 11/10/16 11:22 22 11/10/16 08:34 94 Nasal Cannula 4.00 11/10/16 08:00 96.2 102 20 138/77 92 11/10/16 00:00 96.8 88 20 136/73 95 11/09/16 21:28 97 Nasal Cannula 2.00 Humidified 11/09/16 20:00 96.8 90 19 122/68 97 11/09/16 18:11 96 Nasal Cannula 4.00 11/09/16 16:00 97.0 99 16 161/87 97 I/O 11/09/16 11/09/16 11/09/16 11/10/16 11/10/16 11/10/16 07:00 15:00 23:00 07:00 15:00 23:00 Intake Total 1830 ml 1691 ml 1269 ml 1493 ml Output Total 2250 ml 1750 ml 1350 ml 650 ml Balance -420 ml -59 ml -81 ml 843 ml Intake Oral 120 ml 480 ml 240 ml 240 ml IV Total 923 ml 734 ml 593 ml 753 ml TPN/PPN 549 ml 477 ml 436 ml 500 ml Lipid 238 ml Output Urine Total 1200 ml 800 ml 450 ml 600 ml Stool Total 1050 ml 950 ml 900 ml 0 ml Drainage Total 0 ml 0 ml 0 ml 50 ml Result Diagram: 11/10/16 0620 11/10/16 0620 Imaging Last Impressions Chest X-Ray 11/03/16 0000 Signed Impressions: Service Date/Time: Thursday, November 03, 2016 15:03 - CONCLUSION: Subclavian central venous catheter which is in good position. No evidence of pneumothorax. Improving lung aeration with decreasing congestion and bibasilar airspace disease. Kendall Lara MD Abdomen CT 11/01/16 0000 Signed Impressions: Service Date/Time: October 15:20 - CONCLUSION: No abnormalities are seen with respect to the liver or spleen. Previously noted small fluid collections adjacent to the small bowel loops within the right lower quadrant are no longer present. The configuration of the small bowel loops adjacent to the intra-abdominal wall at the site of mesh repair are consistent with areas of adhesion. No evidence of bowel obstruction.. Hoda Ash MD Abdomen/Pelvis CT 10/19/16 0000 Signed Impressions: Service Date/Time: September 15:10 - CONCLUSION: 1. There are 2 small rim-enhancing fluid collections in the right mid abdomen adjacent to the distal ileum that extends into the ileostomy. These measure 2.6 x 1.3 cm and 2.1 x 1.6 cm. These could represent infected fluid collections but are too small to place a drainage catheter. There is an additional small subcapsular fluid collection along the anterior left lobe of the liver. 2. Additionally, there is wall thickening of the distal ileal loops along with marked mesenteric edema. 3. There is a small volume of free fluid in the left upper quadrant around the spleen and in the pelvis. 4. There is a new small left pleural effusion with compressive atelectasis and right lower lobe volume loss versus airspace consolidation. Calixto Uriostegui MD Liver Ultrasound 07/12/16 0000 Signed Impressions: Service Date/Time: Tuesday, July 12, 2016 18:07 - CONCLUSION: 1. No acute abnormality demonstrated. 2. Heterogeneous liver without measurable mass. 3. Small and heterogeneous spleen without a measurable mass. 4. Cortical thinning and scarring of the right kidney. 5. Previous cholecystectomy. Calixto Woodruff MD Chest CT 07/09/16 0000 Signed Impressions: Service Date/Time: Saturday, July 09, 2016 14:43 - CONCLUSION: 1. Small right pleural effusion and minimal right basilar consolidation. 2. 6 mm left basilar nodule. Followup CT chest 6 months recommended. Florian Pepper MD Lower Extremity Ultrasound 06/25/16 0000 Signed Impressions: Service Date/Time: Saturday, June 25, 2016 15:56 - CONCLUSION: Negative exam with no evidence of deep venous thrombosis. Soft tissue edema. Mike Leija MD Port Line Insertion 06/20/16 0000 Signed Impressions: Service Date/Time: Monday, June 20, 2016 08:53 - CONCLUSION: Uncomplicated ultrasound and fluoroscopic guided implanted central venous port catheter placement as described in detail above. An 8 [place] Power port was placed. Kevan Salgado Jr., MD Objective Remarks GENERAL: Lying in bed. Awake, alert. Appears comfortable. SKIN: Warm and dry. HEAD: Normocephalic. EYES: No scleral icterus. No injection or drainage. NECK: Supple, trachea midline. No JVD. CARDIOVASCULAR: Regular rate and rhythm without murmurs, gallops, or rubs. RESPIRATORY: Breath sounds equal bilaterally. No accessory muscle use. GASTROINTESTINAL: right-sided Fistula with green/brown liquid stool, as before. Left-sided fistula with no significant output. No rebound or guarding. Wound VAC in midline incision. MUSCULOSKELETAL: No cyanosis, or edema. Right subclavian in place. BACK: Nontender without obvious deformity. No CVA tenderness. PSYCH: Flattened affect. Procedures Left stump debridement by Dr. Hill on 06/15/16 Bedside debridement of preperitoneal fat that was protruding from the abdominal fistula 09/01/16 central line placement Exploratory laparotomy, resection of the anterior abdominal wall fistula tract, resection of the transverse colon to small bowel anastomosis, lysis of adhesions of the small bowel with repair of two enterotomies, right-sided ileostomy, left-sided mucous fistula and partial removal of a ventral hernia mesh. Medications and IVs Current Medications Medications (Trade) Dose Ordered Sig/Shira Route Start Time Stop Time Status Last Admin (Rocaltrol) 0.25 mcg DAILY PO 06/15/16 09:00 11/10/16 09:07 (Ferrous Sulfate) 325 mg DAILY PO 06/15/16 09:00 11/10/16 09:06 (Pill Splitter) 1 ea UNSCH PRN OTHER 06/14/16 18:00 (Heparin Central Flush) 500 units UNSCH IVF 06/20/16 11:30 10/06/16 12:24 (NS Flush) 5 ml UNSCH PRN IVF 06/20/16 11:30 11/10/16 05:40 (Heparin Central Flush) 250 units UNSCH PRN IVF 06/20/16 11:30 07/26/16 14:54 (Mag-Al Plus Susp Liq) 30 ml Q6H PRN PO 07/09/16 16:45 09/28/16 21:39 (Tylenol) 650 mg Q4H PRN PO 07/11/16 05:45 11/08/16 06:20 (Mycostatin Powder) 1 applic Q12HR TOPICAL 07/11/16 12:00 11/10/16 09:20 (Remeron Soltab Odt) 15 mg HS PO 07/29/16 21:00 11/09/16 21:30 (Desitin 40% Oint) 1 applic UNSCH PRN TOPICAL 08/13/16 14:15 10/29/16 10:26 (Zinc Sulfate) 220 mg DAILY PO 09/04/16 09:00 11/10/16 09:06 (Cymbalta Dr) 30 mg DAILY PO 09/14/16 09:00 11/10/16 09:06 (Cardizem Cd) 240 mg DAILY PO 09/16/16 09:00 Hold 10/18/16 08:04 Gabapentin 300 mg 300 mg TID PO 10/06/16 13:00 Hold 10/09/16 13:39 Fat Emulsion Intravenous 250 ml @ 31.25 mls/ hr SuWe@20 IV-CENTRAL 10/08/16 20:00 11/08/16 22:18 (Mvi-12 Inj/ Folvite Inj/ Clinimix E 03/15) 2,010.2 ml @ 60 mls/hr Q24H IV-CENTRAL 10/08/16 20:00 11/09/16 22:09 (Zofran Inj) 4 mg Q6HR PRN IV PUSH 10/08/16 12:00 11/10/16 09:19 (NS Flush) 2 ml UNSCH PRN IVF 10/08/16 14:45 (NS Flush) 2 ml BID IVF 10/08/16 21:00 11/09/16 21:34 (Narcan Inj) 0.4 mg UNSCH PRN IV 10/08/16 14:45 (Peridex 0.12% Liq) 15 ml BID@08,20 MT 10/09/16 08:00 11/08/16 08:00 (Dilaudid Pf Inj) 0.5 mg Q3H PRN IV 10/11/16 12:00 11/06/16 22:30 (Dilaudid Pf Inj) 2 mg UNSCH PRN IV 10/12/16 10:45 11/03/16 15:03 (Ditropan) 2.5 mg Q8HR PO 10/14/16 14:41 11/10/16 05:38 (Lasix) 20 mg BID@09,18 PO 10/18/16 18:00 Hold 10/18/16 17:13 (Tylenol) 650 mg Q4H PRN PO 10/18/16 20:15 10/30/16 20:24 (Oscal-D 250-125) 500 mg BID PO 10/23/16 21:00 11/10/16 09:06 (D50w (Vial) Inj) 25 ml UNSCH PRN IV PUSH 10/24/16 16:15 (Glucagon Inj) 1 mg UNSCH PRN OTHER 10/24/16 16:15 Carvedilol 3.125 mg 3.125 mg Q12HR PO 10/26/16 15:21 11/10/16 09:06 Fluconazole/ Sodium Chloride 200 ml @ 100 mls/hr Q24H IV 10/30/16 17:00 11/09/16 15:59 (Ambisome Inj/ D5W 150 ml Inj) 150 ml @ 75 mls/hr Q24H IV 11/01/16 15:00 11/09/16 16:17 Hydromorphone HCl 1 mg 1 mg Q3H PRN IV PUSH 11/03/16 16:00 11/10/16 10:29 (INVanz INJ/NS Inj) 100 ml @ 200 mls/hr Q24H IV 11/04/16 12:00 11/10/16 12:36 (Xarelto) 15 mg DAILY PO 11/08/16 09:00 11/10/16 09:06 (Questran Light Pkt) 4 gm Q12HR PO 11/10/16 11:45 11/10/16 12:36 (Lomotil Tab) 2 tab Q6HR PO 11/10/16 13:00 Date of Insertion: Jun 20, 2016 Side: Left A/P Problem List: (1) Septic shock ICD Code: A41.9 Status: Acute (2) Acute hypoxemic respiratory failure ICD Code: J96.01 Status: Acute (3) Ischemic colitis ICD Code: K55.9 Status: Resolved (4) COPD (chronic obstructive pulmonary disease) ICD Code: J44.9 Status: Chronic (5) depression Status: Chronic (6) Peripheral neuropathy ICD Code: G62.9 Status: Chronic (7) Chronic diastolic (congestive) heart failure ICD Code: I50.32 Status: Chronic (8) ZIA (acute kidney injury) ICD Code: N17.9 Status: Resolved (9) emergent Ex Lap for ischemic bowel/perforation 10/08/16 Status: Acute (10) Acute blood loss anemia ICD Code: D62 Status: Acute Assessment and Plan Ms. Wilson is a pleasant 71 year old female who was admitted to the hospital in Oct 2015 due to ischemic bowel and subsequently underwent resection of large , small bowel and cholecystectomy. 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 Patient was discharged to SNF but returned to the hospital due to post surgical complications. She underwent left foot amputation and subsequently had a lot of post surgical complications requiring wound vac. Her surgeon (Dr. Olvera) determined that patient was too high risk for further surgical intervention. Patient was on TPN and after discussing with Dr. Hill we switched patient to PO diet. Based on patient's desires, we spoke to Dr. Hill regarding a second surgical opinion. Dr. Hill was kind enough to consult Dr. Grajeda who evaluated patient on 10/07/2016. On 10/08/2016, patient was transferred to the [facility] after she complained of severe abdominal pain and CT scan showed ischemic bowel. Due to septic shock, patient was started on vancomycin and Cefepime prior to transfer. Septic shock/ Ischemic colitis S/p Ex lap, resection of anterior abdominal wall fistula tract, resection of transverse colon to small bowel anastomosis, right sided ileostomy, left sided mucous fistula and partial removal of a ventral hernia mesh 10/08/16. Has fungemia. Port and central line were removed. Chest abscess cultures positive for yeast. - follow up with surgery. - Echocardiogram cannot rule out vegetation. May need transesophageal echo, will defer to infectious disease. - cont ertapenem for ESBL + Kleb pneumo thru 11/16. - continue fluconazole and amphotericin B. - PT/OT. Malnutrition S/t bowel surgery. On TPN. Has a lot of stool output. - encourage PO intake. - follow up with dietary. - continue TPN. - GI consult appreciated. Trial of Lomotil. COPD/ Acute hypoxemic respiratory failure S/p extubation on 10/10/2016. - Continue bronchodilators, incentive spirometry. - On O2 4 L 11/10. Acute blood loss anemia S/p 4 units of PRBCs on 10/08/2016. Hemoglobin continues to be stable. - Monitor as necessary. Diabetes mellitus On TPN. Glucose well controlled 11/10. - Continue sliding scale. Tremors Ongoing for the past year. - trial of propranolol. - will need neuro work-up as an outpt. PPx: Xarelto; Protonix. Discharge Planning Awaiting clinical improvement. Mike Ayala DO Nov 10, 2016 14:34
--- NOTE | 2016-11-10 14:36 | HHI.HCPN ---
Reason for visit a. To assist with evaluation and management of symptoms including: Pain, anxiety, depression b. To assist medical decision maker(s) with: better understanding of current medical conditions; weighing benefits/burdens of medical treatment options; making medical treatment decisions. . (Xi Marinelli) Subjective/Interval History Has been transferred out of ICU. Stable on medical floor, no new blood cultures since 11/03-- those negative. Remains on ertapenem, amphotericin, fluconazole. CBC unremarkable, wbc 9.4. Chemistry unremarkable. Afebrile. Cont to have large amt stool output from ostomy-- ID, GI following. On trial of scheduled Lomotil + cholestyramine per GI for short bowel syndrome. Considering Gattex pending availability, coverage for out pt. PT following, pt attempts sitting/mobility exercises however for the most part refusing active PT. Very little oral intake. Still on TPN. Has required 2 doses hydromorphone so far today, 4 doses yesterday. Still with intermittent episodes of nausea required 1 dose of Zofran today. Pt seen in room, no visitors present. She is initially sleeping, arouses to touch and verbal. Groggy, partially oriented, sleepiness limits conversation. Flat affect. Indicates she is feeling tired today. She asked me if I'm here to change her dressing on her abdomen--advise I am palliative SHIP PURSER not her floor nurse. She feels pain fairly well controlled with hydromorphone use. She wants to know if she is due for her next dose; advise I will check with nursing. Attempt exploration of her prolonged hospital course she has limited engagement seems tired. Explore that currently looking at discharge options to rehabilitation, and that new regimen has been added for loose stool. Medical attending in during my visit. Limited discussion due to patient's lethargy. . (Xi Marinelli) Advance Directives Living Will: Completed, but not made available Health Care Surrogate: Copy in medical record Durable Power of Sand Car Worker: Never completed (Xi Marinelli) Advance Directive Specifics Health Care Surrogate(s): Primary HCS is her close friend Anuradha Christian, and secondary is her Dwight Wilson. The HCS that is in the record here is not dated. . (Xi Marinelli) Objective Vital Signs Date Time Temp Pulse Resp B/P Pulse Ox O2 Delivery O2 Flow Rate FiO2 11/10/16 11:22 22 11/10/16 08:34 94 Nasal Cannula 4.00 11/10/16 08:00 96.2 102 20 138/77 92 11/10/16 00:00 96.8 88 20 136/73 95 11/09/16 21:28 97 Nasal Cannula 2.00 Humidified 11/09/16 20:00 96.8 90 19 122/68 97 11/09/16 18:11 96 Nasal Cannula 4.00 11/09/16 16:00 97.0 99 16 161/87 97 Intake & Output 11/10/16 11/10/16 07:00 19:00 Intake Total 2762 ml Output Total 2000 ml Balance 762 ml Intake Oral 480 ml IV Total 1346 ml TPN/PPN 936 ml Output Urine Total 1050 ml Stool Total 900 ml Drainage Total 50 ml Physical Exam CONSTITUTIONAL/GENERAL: chronically ill appearing very weak female. Lying in her bed. SKIN: Pale. Skin temperature appropriate. Not diaphoretic. Ileostomy, colostomy is noted patent. Midline abdominal incision with wound VAC dressing. CARDIOVASCULAR: Regular rate and rhythm, no murmur. No JVD. RESPIRATORY/CHEST: Symmetric, unlabored respirations on ventimask. Decreased air movement throughout, with scattered rhonchi / diminished sounds. GASTROINTESTINAL: Soft,+tender, bowel sounds active. Ileostomy and colostomy present. + Liquid brown stool present. Midline incision with wound VAC dressing intact. MUSCULOSKELETAL: Extremities without clubbing, cyanosis, or edema. Left Stump now well healed. No mottling or clubbing. NEUROLOGICAL: Lethargic, somewhat arousable oriented 2-3. Remains lethargic, limited insight. Limited engagement. Moves all 4 extremities generalized weakness, follows commands. PSYCHIATRIC: Lethargic, flat affect. . (Xi Marinelli) Diagnostic Tests Laboratory Laboratory Tests Test 11/08/16 11/09/16 11/10/16 05:29 06:10 06:20 White Blood Count 8.5 TH/MM3 9.9 TH/MM3 9.4 TH/MM3 (4.0-11.0) (4.0-11.0) (4.0-11.0) Red Blood Count 3.11 MIL/MM3 3.21 MIL/MM3 3.23 MIL/MM3 (4.00-5.30) (4.00-5.30) (4.00-5.30) Hemoglobin 8.8 GM/DL 9.6 GM/DL 9.2 GM/DL (11.6-15.3) (11.6-15.3) (11.6-15.3) Hematocrit 27.5 % 28.3 % 28.4 % (35.0-46.0) (35.0-46.0) (35.0-46.0) Mean Corpuscular Volume 88.5 FL 88.2 FL 88.1 FL (80.0-100.0) (80.0-100.0) (80.0-100.0) Mean Corpuscular Hemoglobin 28.4 PG 29.9 PG 28.4 PG (27.0-34.0) (27.0-34.0) (27.0-34.0) Mean Corpuscular Hemoglobin 32.0 % 33.9 % 32.2 % Concent (32.0-36.0) (32.0-36.0) (32.0-36.0) Red Cell Distribution Width 18.2 % 17.9 % 18.6 % (11.6-17.2) (11.6-17.2) (11.6-17.2) Platelet Count 306 TH/MM3 386 TH/MM3 364 TH/MM3 (150-450) (150-450) (150-450) Mean Platelet Volume 8.7 FL 8.9 FL 9.0 FL (7.0-11.0) (7.0-11.0) (7.0-11.0) Neutrophils (%) (Auto) 40.2 % 50.3 % (16.0-70.0) (16.0-70.0) Lymphocytes (%) (Auto) 43.9 % 36.1 % (9.0-44.0) (9.0-44.0) Monocytes (%) (Auto) 10.6 % 8.6 % (0.0-8.0) (0.0-8.0) Eosinophils (%) (Auto) 4.1 % (0.0-4.0) 3.6 % (0.0-4.0) Basophils (%) (Auto) 1.2 % (0.0-2.0) 1.4 % (0.0-2.0) Neutrophils # (Auto) 3.4 TH/MM3 5.0 TH/MM3 (1.8-7.7) (1.8-7.7) Lymphocytes # (Auto) 3.7 TH/MM3 3.6 TH/MM3 (1.0-4.8) (1.0-4.8) Monocytes # (Auto) 0.9 TH/MM3 0.9 TH/MM3 (0-0.9) (0-0.9) Eosinophils # (Auto) 0.3 TH/MM3 0.4 TH/MM3 (0-0.4) (0-0.4) Basophils # (Auto) 0.1 TH/MM3 0.1 TH/MM3 (0-0.2) (0-0.2) CBC Comment DIFF FINAL DIFF FINAL Differential Comment Sodium Level 141 MEQ/L 142 MEQ/L 143 MEQ/L (136-145) (136-145) (136-145) Potassium Level 3.4 MEQ/L 3.6 MEQ/L 3.4 MEQ/L (3.5-5.1) (3.5-5.1) (3.5-5.1) Chloride Level 103 MEQ/L 108 MEQ/L 107 MEQ/L (98-107) (98-107) (98-107) Carbon Dioxide Level 30.8 MEQ/L 28.1 MEQ/L 29.4 MEQ/L (21.0-32.0) (21.0-32.0) (21.0-32.0) Anion Gap 7 MEQ/L (5-15) 6 MEQ/L (5-15) 7 MEQ/L (5-15) Blood Urea Nitrogen 31 MG/DL (7-18) 28 MG/DL (7-18) 30 MG/DL (7-18) Creatinine 0.98 MG/DL 0.95 MG/DL 0.92 MG/DL (0.50-1.00) (0.50-1.00) (0.50-1.00) Estimat Glomerular Filtration 56 ML/MIN (>89) 58 ML/MIN (>89) 60 ML/MIN (>89) Rate Random Glucose 127 MG/DL 147 MG/DL 150 MG/DL (74-106) (74-106) (74-106) Calcium Level 9.7 MG/DL 9.5 MG/DL 10.1 MG/DL (8.5-10.1) (8.5-10.1) (8.5-10.1) Total Bilirubin 1.1 MG/DL (0.2-1.0) Direct Bilirubin 0.7 MG/DL (0.0-0.2) Indirect Bilirubin 0.4 MG/DL (0.0-0.8) Aspartate Amino Transf 33 U/L (15-37) (AST/SGOT) Alanine Aminotransferase 17 U/L (10-53) (ALT/SGPT) Alkaline Phosphatase 231 U/L (45-117) Total Protein 7.4 GM/DL (6.4-8.2) Albumin 1.6 GM/DL (3.4-5.0) Phosphorus Level 4.1 MG/DL (2.5-4.9) Magnesium Level 2.0 MG/DL (1.5-2.5) (Xi Marinelli) Result Diagram: 11/10/16 0620 11/10/16 0620 Imaging Last Impressions Chest X-Ray 11/03/16 0000 Signed Impressions: Service Date/Time: Thursday, November 03, 2016 15:03 - CONCLUSION: Subclavian central venous catheter which is in good position. No evidence of pneumothorax. Improving lung aeration with decreasing congestion and bibasilar airspace disease. Kendall Lara MD Abdomen CT 11/01/16 0000 Signed Impressions: Service Date/Time: October 15:20 - CONCLUSION: No abnormalities are seen with respect to the liver or spleen. Previously noted small fluid collections adjacent to the small bowel loops within the right lower quadrant are no longer present. The configuration of the small bowel loops adjacent to the intra-abdominal wall at the site of mesh repair are consistent with areas of adhesion. No evidence of bowel obstruction.. Hoda Ash MD Abdomen/Pelvis CT 10/19/16 0000 Signed Impressions: Service Date/Time: September 15:10 - CONCLUSION: 1. There are 2 small rim-enhancing fluid collections in the right mid abdomen adjacent to the distal ileum that extends into the ileostomy. These measure 2.6 x 1.3 cm and 2.1 x 1.6 cm. These could represent infected fluid collections but are too small to place a drainage catheter. There is an additional small subcapsular fluid collection along the anterior left lobe of the liver. 2. Additionally, there is wall thickening of the distal ileal loops along with marked mesenteric edema. 3. There is a small volume of free fluid in the left upper quadrant around the spleen and in the pelvis. 4. There is a new small left pleural effusion with compressive atelectasis and right lower lobe volume loss versus airspace consolidation. Calixto Uriostegui MD Liver Ultrasound 07/12/16 0000 Signed Impressions: Service Date/Time: Tuesday, July 12, 2016 18:07 - CONCLUSION: 1. No acute abnormality demonstrated. 2. Heterogeneous liver without measurable mass. 3. Small and heterogeneous spleen without a measurable mass. 4. Cortical thinning and scarring of the right kidney. 5. Previous cholecystectomy. Calixto Woodruff MD Chest CT 07/09/16 0000 Signed Impressions: Service Date/Time: Saturday, July 09, 2016 14:43 - CONCLUSION: 1. Small right pleural effusion and minimal right basilar consolidation. 2. 6 mm left basilar nodule. Followup CT chest 6 months recommended. Florian Pepper MD Lower Extremity Ultrasound 06/25/16 0000 Signed Impressions: Service Date/Time: Saturday, June 25, 2016 15:56 - CONCLUSION: Negative exam with no evidence of deep venous thrombosis. Soft tissue edema. Mike Leija MD Port Line Insertion 06/20/16 0000 Signed Impressions: Service Date/Time: Monday, June 20, 2016 08:53 - CONCLUSION: Uncomplicated ultrasound and fluoroscopic guided implanted central venous port catheter placement as described in detail above. An 8 [employer] port was placed. Kevan Salgado Jr., MD Procedures Stump debridement and wound VAC placement 06/16/16 TPN Skin biopsies, face 07/24/16 Exploratory laparotomy, ileostomy, colostomy, bowel resection 10/08/16 . 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 No other specific skin pathology noted. . (9) pulmonary nodule on CT scan, 2.6 mm at the left base (10) depression (11) COPD, not oxygen dependent (12) history of breast cancer (13) anxiety (14) anemia Symptom Scale: (1) pain 0-10 Scale: 4 (she has been receiving Dilaudid ) Comment: Pain has been mostly abdominal pain,+ r/t dressing changes . (2) anxiety 0-10 Scale: 3 Comment: Well controlled with scheduled Cymbalta, Remeron (3) depression 0-10 Scale: 2 Comment: Reasonably well controlled with Cymbalta, Remeron (4) Malnutrition 0-10 Scale: Unable to quantify Comment: albumin 1.5, on TPN. Very poor oral intake (5) Dyspnea 0-10 Scale: Unable to quantify Comment: CXR +new pneumonia, + on/off NRB mask Pertinent Non-Medical Issues Psychosocial: Second marriage for about 1 year, but most of that time in the hospital or SNF. No children, but has close friend Anuradha. Spiritual: Evaluation pending Legal: The patient has capacity for decision-making, and has designated her friend Anuradha and her Dwight as primary and secondary HCS respectively Ethical issues impacting care: None. . Important Contacts Primary HCS, close friend Anuradha Christian [phone] : Dwight Wilson [phone] . Prognosis She has suffered multiple illnesses, infections, and complications during the last 10 months, and now has undergone emergency surgery for more ischemic bowel. Her overall prognosis remains somewhat poor, and she would be an appropriate hospice candidate if her proxy decision makers elected to transition to comfort care. . Code Status: No Code Plan == DO NOT RESUSCITATE, per patient request 11/03/16 == GOALS: The patient continues to want AGGRESSIVE CARE short of resuscitation/ code. The patient is very likely to continue to decline in spite of this ongoing aggressive care. == DECISION-MAKING: patient appears able to make her own decisions currently. HCS is her friend Anuradha Christian (primary) and her Dwight Wilson ( secondary) == SYMPTOMS: * Pain: s/p recent ex-lap surgery; still with some sharp, intermittent pain to mid abdomen--- prn 0.5mg - 1mg hydromorphone; requiring 3-4 doses a day most days * Anxiety/depression: She is appears stable/improved cymbalta, remeron. No obvious or reported anxiety, FLAT affect today (+lethargic) * malnutrition- on TNP, very poor oral intake. Taking ENsure only. Albumin 1.9 * dyspnea- bibasilar consolidation, LINDA pneumonia. Now tolerating NC O2. Last imaging 11/03 improved. On mult abx, nebulizers. Ongoing discussions RE intubation/code status/treatment wishes w pt. -- prev elected DNR ==Palliative care will continue to follow during hospital course as condition evolves, to assist patient/decision-maker with understanding of medical conditions, weighing benefits/burdens of treatment options, for clarification of goals of treatment. Additionally will assist with any symptoms of palliative concern . . (Xi Marinelli) Time Spent Total Floor Time (mins): 20 >50% Counseling/Coord of Care: Yes (d/w RN, attending ) (Xi Marinelli) Attestation To help prompt me to consider important information that might be impacting today's encounter and assessment, information from prior notes written by myself or my colleagues may have been "brought forward" into today's note. My signature on this note, however, is an attestation that I personally performed the exam, history, and/or decision-making noted today, and, unless otherwise indicated, the interactions with patient, family, and staff as well as the review of records all occurred today. I also attest that the listed assessment and stated plan reflect my best clinical judgment today based on the combination of historical information, prior notes, and today's exam/ interactions. When time spent is documented, it refers only to time spent today by the signer, or if indicated, combined time spent today by collaborating physician/nurse practitioner. (Xi Marinelli) Collaborating MD Comments Chart reviewed. Case discussed with palliative care SHIP PURSER. Above SHIP PURSER note reviewed and I concur. . (Rush Kaur MD) Xi Marinelli Nov 10, 2016 14:36 Rush Kaur MD Dec 10, 2016 08:08
[2016-11-10] MEDS: PROPRANOLOL HCL 40 MG TAB PO SCH ×2 (14:42→20:13)
[2016-11-10] MEDS: POTASSIUM CL 40 MEQ/30 ML LIQ UDC PO SCH (14:42)
[2016-11-10] MEDS: FLUCONAZOLE 400 MG PREMIX BAG 200 ML IV SCH (16:45)
--- NOTE | 2016-11-10 18:09 | PD.RAD ---
Radiology Post PICC Prog Note Pre Procedure Diagnosis: (1) Wound infection Post Procedure Diagnosis: (1) Wound infection Procedure: Left PICC line placement Procedure Date: Nov 10, 2016 Supervising Radiologist Garrison Pascual Proceduralist/Assist: Viktoria Araujo, RT(R)(), Patti Ellison RT(R)() Device Side: Left Polish: 5 dual lumen Catheter: Power PICC Plan of Activity Patient to Unit: Nursing Unit Patient Condition: Fair PICC line can be used immediately Garrison Pascual MD Nov 10, 2016 18:09
[2016-11-10 19:56] VITALS: O2SAT 93
[2016-11-10 20:00] VITALS: BP 144/68; PULSE 81; RESP 20; TEMP 96.7; O2SAT 96
[2016-11-10] MEDS: MIRTAZAPINE ODT 15 MG TAB PO SCH (20:14)
[2016-11-10] MEDS: CLINIMIX E 5/25 2000 mL- >42 mls/hr IV-CENTRAL SCH ×3 (20:14)
[2016-11-10] MEDS: DIPHENOXYLATE/ATROPINE 2.5 MG/0.025 MG/5 ML CUP PO SCH (20:15)
[2016-11-11] VITALS: BP 134/64; PULSE 83; RESP 20; TEMP 98.9; O2SAT 93
[2016-11-11] MEDS: DIPHENOXYLATE/ATROPINE 2.5 MG/0.025 MG TAB PO SCH ×3 (00:15→12:00)
[2016-11-11] MEDS: HYDROmorphone HCL PF 1 MG/ML VIAL IV PUSH PRN ×5 (00:16→21:02)
[2016-11-11] MEDS: INSULIN ASPART SUPPLEMENTAL SCALE SQ SCH ×4 (05:28→20:53)
[2016-11-11] MEDS: OXYBUTYNIN CHLORIDE 5 MG TAB PO SCH ×3 (05:28→20:48)
[2016-11-11 08:00] VITALS: BP 113/62; PULSE 88; RESP 20; TEMP 97.9; O2SAT 96
[2016-11-11] MEDS: CHLORHEXIDINE 0.12% (ORAL KIT) 15 ML CUP MT SCH ×2 (08:00→20:00)
[2016-11-11] MEDS: DIPHENOXYLATE/ATROPINE 2.5 MG/0.025 MG/5 ML CUP PO SCH ×3 (09:00→20:48)
[2016-11-11] MEDS: DULoxetine HCl DR 30 MG CAP PO SCH (09:21)
[2016-11-11] MEDS: PROPRANOLOL HCL 40 MG TAB PO SCH ×2 (09:21→20:48)
[2016-11-11] MEDS: ZINC SULFATE 220 MG CAP PO SCH (09:21)
[2016-11-11] MEDS: SODIUM CHLORIDE 0.9% FLUSH 5 ML FLUSH IVF SCH ×2 (09:21→20:49)
[2016-11-11] MEDS: FERROUS SULFATE 325 MG (65 MG ELEMENTAL IRON) TAB PO SCH (09:21)
[2016-11-11] MEDS: POTASSIUM CL 40 MEQ/30 ML LIQ UDC PO SCH (09:22)
[2016-11-11] MEDS: CALCIUM/VITAMIN D 250 MG/125 U TAB PO SCH ×2 (09:22→20:48)
[2016-11-11] MEDS: CHOLESTYRAMINE LIGHT 4 GM PACKAGE PO SCH ×2 (09:22→20:49)
[2016-11-11] MEDS: CALCITRIOL 0.25 MCG CAP PO SCH (09:23)
[2016-11-11] MEDS: RIVAROXABAN 15 MG TAB PO SCH (09:23)
[2016-11-11] MEDS: NYSTATIN 100,000 U/GM PWD 15 GM BTL TOPICAL SCH ×2 (09:26→20:54)
[2016-11-11 12:00] VITALS: BP 121/62; PULSE 76; RESP 18; TEMP 97.7; O2SAT 94
[2016-11-11] MEDS: ERTAPENEM INJ 1,000 MG in SODIUM CHLORIDE 0.9% INJ 100 ML IV SCH (12:14)
--- NOTE | 2016-11-11 13:49 | HHI.PR ---
Subjective Remarks The patient endorses confusion every once in a while. She believes her tremors are improved. Discussed with nursing. Objective Vitals Vital Signs Date Time Temp Pulse Resp B/P Pulse Ox O2 Delivery O2 Flow Rate FiO2 11/11/16 12:00 97.7 76 18 121/62 94 11/11/16 09:30 96 Nasal Cannula 4.00 Humidified 11/11/16 08:00 97.9 88 20 113/62 96 11/11/16 00:00 98.9 83 20 134/64 93 11/10/16 20:00 96.7 81 20 144/68 96 11/10/16 20:00 Nasal Cannula 4.00 Humidified 11/10/16 19:56 93 Nasal Cannula 4.00 11/10/16 15:00 20 I/O 11/10/16 11/10/16 11/10/16 11/11/16 11/11/16 11/11/16 07:00 15:00 23:00 07:00 15:00 23:00 Intake Total 1493 ml 1879 ml 945 ml 775 ml Output Total 650 ml 1600 ml 1200 ml 1050 ml Balance 843 ml 279 ml -255 ml -275 ml Intake Oral 240 ml 480 ml 120 ml 240 ml IV Total 753 ml 880 ml 475 ml TPN/PPN 500 ml 519 ml 350 ml 535 ml Output Urine Total 600 ml 1250 ml 450 ml 500 ml Stool Total 0 ml 350 ml 750 ml 550 ml Drainage Total 50 ml 0 ml Result Diagram: 11/10/16 0620 11/10/16 0620 Imaging Last Impressions Chest X-Ray 11/03/16 0000 Signed Impressions: Service Date/Time: Thursday, November 03, 2016 15:03 - CONCLUSION: Subclavian central venous catheter which is in good position. No evidence of pneumothorax. Improving lung aeration with decreasing congestion and bibasilar airspace disease. Kendall Lara MD Abdomen CT 11/01/16 0000 Signed Impressions: Service Date/Time: October 15:20 - CONCLUSION: No abnormalities are seen with respect to the liver or spleen. Previously noted small fluid collections adjacent to the small bowel loops within the right lower quadrant are no longer present. The configuration of the small bowel loops adjacent to the intra-abdominal wall at the site of mesh repair are consistent with areas of adhesion. No evidence of bowel obstruction.. Hoda Ash MD Abdomen/Pelvis CT 10/19/16 0000 Signed Impressions: Service Date/Time: September 15:10 - CONCLUSION: 1. There are 2 small rim-enhancing fluid collections in the right mid abdomen adjacent to the distal ileum that extends into the ileostomy. These measure 2.6 x 1.3 cm and 2.1 x 1.6 cm. These could represent infected fluid collections but are too small to place a drainage catheter. There is an additional small subcapsular fluid collection along the anterior left lobe of the liver. 2. Additionally, there is wall thickening of the distal ileal loops along with marked mesenteric edema. 3. There is a small volume of free fluid in the left upper quadrant around the spleen and in the pelvis. 4. There is a new small left pleural effusion with compressive atelectasis and right lower lobe volume loss versus airspace consolidation. Calixto Uriostegui MD Liver Ultrasound 07/12/16 0000 Signed Impressions: Service Date/Time: Tuesday, July 12, 2016 18:07 - CONCLUSION: 1. No acute abnormality demonstrated. 2. Heterogeneous liver without measurable mass. 3. Small and heterogeneous spleen without a measurable mass. 4. Cortical thinning and scarring of the right kidney. 5. Previous cholecystectomy. Calixto Woodruff MD Chest CT 07/09/16 0000 Signed Impressions: Service Date/Time: Saturday, July 09, 2016 14:43 - CONCLUSION: 1. Small right pleural effusion and minimal right basilar consolidation. 2. 6 mm left basilar nodule. Followup CT chest 6 months recommended. Florian Pepper MD Lower Extremity Ultrasound 06/25/16 0000 Signed Impressions: Service Date/Time: Saturday, June 25, 2016 15:56 - CONCLUSION: Negative exam with no evidence of deep venous thrombosis. Soft tissue edema. Mike Leija MD Port Line Insertion 06/20/16 0000 Signed Impressions: Service Date/Time: Monday, June 20, 2016 08:53 - CONCLUSION: Uncomplicated ultrasound and fluoroscopic guided implanted central venous port catheter placement as described in detail above. An 8 Somali Power port was placed. Kevan Salgado Jr., MD Objective Remarks GENERAL: Lying in bed. Awake, alert. Appears comfortable. SKIN: Warm and dry. HEAD: Normocephalic. EYES: No scleral icterus. No injection or drainage. NECK: Supple, trachea midline. No JVD. CARDIOVASCULAR: Regular rate and rhythm without murmurs, gallops or rubs. RESPIRATORY: Breath sounds equal bilaterally. No accessory muscle use. GASTROINTESTINAL: right-sided fistula with green/brown liquid stool, as before. Left-sided fistula with no significant output. No rebound or guarding. Wound VAC in midline incision. MUSCULOSKELETAL: No cyanosis, or edema. Right subclavian in place. BACK: Nontender without obvious deformity. No CVA tenderness. NEURO: Tremors are improved. PSYCH: Flattened affect. Procedures Left stump debridement by Dr. Hill on 06/15/16 Bedside debridement of preperitoneal fat that was protruding from the abdominal fistula 09/01/16 central line placement Exploratory laparotomy, resection of the anterior abdominal wall fistula tract, resection of the transverse colon to small bowel anastomosis, lysis of adhesions of the small bowel with repair of two enterotomies, right-sided ileostomy, left-sided mucous fistula and partial removal of a ventral hernia mesh. Medications and IVs Current Medications Medications (Trade) Dose Ordered Sig/Shira Route Start Time Stop Time Status Last Admin (Rocaltrol) 0.25 mcg DAILY PO 06/15/16 09:00 11/11/16 09:23 (Ferrous Sulfate) 325 mg DAILY PO 06/15/16 09:00 11/11/16 09:21 (Pill Splitter) 1 ea UNSCH PRN OTHER 06/14/16 18:00 (Heparin Central Flush) 500 units UNSCH IVF 06/20/16 11:30 10/06/16 12:24 (NS Flush) 5 ml UNSCH PRN IVF 06/20/16 11:30 11/10/16 05:40 (Heparin Central Flush) 250 units UNSCH PRN IVF 06/20/16 11:30 07/26/16 14:54 (Mag-Al Plus Susp Liq) 30 ml Q6H PRN PO 07/09/16 16:45 09/28/16 21:39 (Tylenol) 650 mg Q4H PRN PO 07/11/16 05:45 11/08/16 06:20 (Mycostatin Powder) 1 applic Q12HR TOPICAL 07/11/16 12:00 11/11/16 09:26 (Remeron Soltab Odt) 15 mg HS PO 07/29/16 21:00 11/10/16 20:14 (Desitin 40% Oint) 1 applic UNSCH PRN TOPICAL 08/13/16 14:15 10/29/16 10:26 (Zinc Sulfate) 220 mg DAILY PO 09/04/16 09:00 11/11/16 09:21 (Cymbalta Dr) 30 mg DAILY PO 09/14/16 09:00 11/11/16 09:21 (Cardizem Cd) 240 mg DAILY PO 09/16/16 09:00 Hold 10/18/16 08:04 Gabapentin 300 mg 300 mg TID PO 10/06/16 13:00 Hold 10/09/16 13:39 Fat Emulsion Intravenous 250 ml @ 31.25 mls/ hr SuWe@20 IV-CENTRAL 10/08/16 20:00 11/08/16 22:18 (Mvi-12 Inj/ Folvite Inj/ Clinimix E 03/15) 2,010.2 ml @ 60 mls/hr Q24H IV-CENTRAL 10/08/16 20:00 11/10/16 20:14 (Zofran Inj) 4 mg Q6HR PRN IV PUSH 10/08/16 12:00 11/10/16 09:19 (NS Flush) 2 ml UNSCH PRN IVF 10/08/16 14:45 (NS Flush) 2 ml BID IVF 10/08/16 21:00 11/11/16 09:21 (Narcan Inj) 0.4 mg UNSCH PRN IV 10/08/16 14:45 (Peridex 0.12% Liq) 15 ml BID@08,20 MT 10/09/16 08:00 11/08/16 08:00 (Dilaudid Pf Inj) 0.5 mg Q3H PRN IV 10/11/16 12:00 11/06/16 22:30 (Dilaudid Pf Inj) 2 mg UNSCH PRN IV 10/12/16 10:45 11/03/16 15:03 (Ditropan) 2.5 mg Q8HR PO 10/14/16 14:41 11/11/16 12:15 (Lasix) 20 mg BID@,18 PO 10/18/16 18:00 Hold 12/28/16 17:13 (Tylenol) 650 mg Q4H PRN PO 10/18/16 20:15 10/30/16 20:24 (Oscal-D 250-125) 500 mg BID PO 10/23/16 21:00 11/11/16 09:22 (D50w (Vial) Inj) 25 ml UNSCH PRN IV PUSH 10/24/16 16:15 Glucagon 1 mg 1 mg UNSCH PRN OTHER 10/24/16 16:15 Fluconazole/ Sodium Chloride 200 ml @ 100 mls/hr Q24H IV 10/30/16 17:00 11/10/16 16:45 (Ambisome Inj/ D5W 150 ml Inj) 150 ml @ 75 mls/hr Q24H IV 11/01/16 15:00 11/10/16 14:30 Hydromorphone HCl 1 mg 1 mg Q3H PRN IV PUSH 11/03/16 16:00 11/11/16 12:26 (INVanz INJ/NS Inj) 100 ml @ 200 mls/hr Q24H IV 11/04/16 12:00 11/11/16 12:14 (Xarelto) 15 mg DAILY PO 11/08/16 09:00 11/11/16 09:23 (Questran Light Pkt) 4 gm Q12HR PO 11/10/16 11:45 11/11/16 09:22 (Inderal) 40 mg Q12HR PO 11/10/16 14:30 11/11/16 09:21 (KCl 40 Meq/30 ml Liq) 40 meq DAILY PO 11/10/16 14:30 11/11/16 09:22 (Lomotil 2.5-0.025 Mg Liq) 5 ml BID PO 11/10/16 21:00 11/11/16 13:37 Date of Insertion: Jun 20, 2016 Side: Left A/P Problem List: (1) Septic shock ICD Code: A41.9 Status: Acute (2) Acute hypoxemic respiratory failure ICD Code: J96.01 Status: Acute (3) Ischemic colitis ICD Code: K55.9 Status: Resolved (4) COPD (chronic obstructive pulmonary disease) ICD Code: J44.9 Status: Chronic (5) depression Status: Chronic (6) Peripheral neuropathy ICD Code: G62.9 Status: Chronic (7) Chronic diastolic (congestive) heart failure ICD Code: I50.32 Status: Chronic (8) ZIA (acute kidney injury) ICD Code: N17.9 Status: Resolved (9) emergent Ex Lap for ischemic bowel/perforation 10/08/16 Status: Acute (10) Acute blood loss anemia ICD Code: D62 Status: Acute Assessment and Plan Ms. Wilson is a pleasant 71 year old female who was admitted to the hospital in Oct 2015 due to ischemic bowel and subsequently underwent resection of large , small bowel and cholecystectomy. 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 Patient was discharged to SNF but returned to the hospital due to post surgical complications. She underwent left foot amputation and subsequently had a lot of post surgical complications requiring wound vac. Her surgeon (Dr. Olvera) determined that patient was too high risk for further surgical intervention. Patient was on TPN and after discussing with Dr. Hill we switched patient to PO diet. Based on patient's desires, we spoke to Dr. Hill regarding a second surgical opinion. Dr. Hill was kind enough to consult Dr. Grajeda who evaluated patient on 10/07/2016. On 10/08/2016, patient was transferred to the [facility] after she complained of severe abdominal pain and CT scan showed ischemic bowel. Due to septic shock, patient was started on vancomycin and Cefepime prior to transfer. Septic shock/ Ischemic colitis S/p Ex lap, resection of anterior abdominal wall fistula tract, resection of transverse colon to small bowel anastomosis, right sided ileostomy, left sided mucous fistula and partial removal of a ventral hernia mesh 10/08/16. Has fungemia. Port and central line were removed. Chest abscess cultures positive for yeast. - follow up with surgery. - Echocardiogram cannot rule out vegetation. May need transesophageal echo, will defer to infectious disease. - cont ertapenem for ESBL + Kleb pneumo thru 11/16. - continue fluconazole and amphotericin B. - PT/OT. Malnutrition S/t bowel surgery. On TPN. Has a lot of stool output. - encourage PO intake. - follow up with dietary. - continue TPN. - GI consult appreciated. Trial of Lomotil. COPD/ Acute hypoxemic respiratory failure S/p extubation on 10/10/2016. - Continue bronchodilators, incentive spirometry. - On O2 4 L 11/11. Acute blood loss anemia S/p 4 units of PRBCs on 10/08/2016. Hemoglobin continues to be stable. - Monitor as necessary. Diabetes mellitus On TPN. Glucose well controlled 11/11. - Continue sliding scale. Tremors Ongoing for the past year. - trial of propranolol. Improved. - will need neuro work-up as an outpt. Delirium The pt endorses intermittent confusion. - frequent reorientation. - treat infection as above. - ST cognitive eval requested. PPx: Xarelto; Protonix. Discharge Planning Awaiting clinical improvement. Mike Ayala DO Nov 11, 2016 13:49
[2016-11-11] MEDS: FLUCONAZOLE 400 MG PREMIX BAG 200 ML IV SCH (15:32)
[2016-11-11 16:00] VITALS: BP 104/57; PULSE 74; RESP 18; O2SAT 92
[2016-11-11] MEDS: WATE IV SCH ×2 (17:33)
[2016-11-11] MEDS: AMPHOTERICIN B LIPOSOME IV SCH ×2 (17:33)
[2016-11-11] MEDS: DEXTROSE 5% IV SCH ×2 (17:33)
--- NOTE | 2016-11-11 18:04 | RADRPT ---
EXAM DATE/TIME: 11/10/2016 17:07 [place] COMPARISON: No previous studies available for comparison. INDICATIONS : Patient with leg infection in need of vascular access. MEDICAL HISTORY : 1.GERD 2.PVD 3.DVT 4.Asthma 5.Left leg infection/amputation SURGICAL HISTORY : 1.Right mastectomy 2.Bowel resection 3.Left leg amputation ENCOUNTER: Initial ACUITY: 4-6 months PAIN SCORE: 10/10 Body. FLUORO TIME: 0.3 minutes ACCESS: Left basilic vein MEDICATION(S): 1.) 500 units Heparin IV DEVICE(S): 1.) 5 Divehi dual lumen 45 cm Xcela Power PICC PROCEDURE : 1. Ultrasound guidance for venous catheterization. 2. Fluoroscopic guidance. 3. Ultrasound & fluoroscopic guided central venous Power PICC line placement. The risks, benefits and alternatives to the procedure were explained and verbal and written consent w as obtained. The site was prepped in sterile fashion. Full sterile technique was used, including ca p, mask, sterile gloves and gown and a large sterile sheet. Hand hygiene and 2% chlorhexidine prep w as utilized per protocol for cutaneous antisepsis with appropriate dry time for site. The skin and s ubcutaneous tissues were infiltrated with local anesthetic solution. Under direct ultrasound guidance, a suitable vein was accessed and a measuring guidewire was introduc ed and positioned in the central venous system. The ultrasound images depicting access guidance were saved and stored to PACS for permanent record. A Power Injectable PICC line was cut to prescribed length and introduced, positioned with tip at the cavoatrial junction level. The line was flushed and secured per protocol. CONCLUSION: 1. Uncomplicated central venous Power PICC line placement. 2. The PICC line can be used immediately. Garrison Pascual MD on November 11, 2016 at 18:03 Board Certified Radiologist. This report was verified electronically.
[2016-11-11 20:00] VITALS: BP 106/56; PULSE 78; RESP 20; TEMP 97.2; O2SAT 93
[2016-11-11] MEDS: CLINIMIX E 5/25 2000 mL- >42 mls/hr IV-CENTRAL SCH ×3 (20:49)
[2016-11-11] MEDS: MIRTAZAPINE ODT 15 MG TAB PO SCH (20:49)
[2016-11-12] VITALS: BP 110/54; PULSE 80; RESP 20; TEMP 97.4; O2SAT 94
[2016-11-12] MEDS: OXYBUTYNIN CHLORIDE 5 MG TAB PO SCH ×3 (04:41→21:10)
[2016-11-12] MEDS: INSULIN ASPART SUPPLEMENTAL SCALE SQ SCH ×4 (04:48→21:16)
[2016-11-12] MEDS: HYDROmorphone HCL PF 1 MG/ML VIAL IV PUSH PRN ×4 (04:49→21:16)
[2016-11-12 05:45] LABS: BICARBONATE 31.1 MEQ/L (21.0-32.0); MAGNESIUM 2.2 MG/DL (1.5-2.5); POTASSIUM 3.7 MEQ/L (3.5-5.1)
[2016-11-12] MEDS: CHLORHEXIDINE 0.12% (ORAL KIT) 15 ML CUP MT SCH ×2 (07:37→20:00)
[2016-11-12 08:00] VITALS: BP 113/64; PULSE 84; RESP 18; TEMP 97.9; O2SAT 94
[2016-11-12] MEDS: CALCITRIOL 0.25 MCG CAP PO SCH (10:00)
[2016-11-12] MEDS: CHOLESTYRAMINE LIGHT 4 GM PACKAGE PO SCH ×2 (10:01→21:10)
[2016-11-12] MEDS: RIVAROXABAN 15 MG TAB PO SCH (10:01)
[2016-11-12] MEDS: POTASSIUM CL 40 MEQ/30 ML LIQ UDC PO SCH (10:01)
[2016-11-12] MEDS: CALCIUM/VITAMIN D 250 MG/125 U TAB PO SCH ×2 (10:02→21:10)
[2016-11-12] MEDS: DULoxetine HCl DR 30 MG CAP PO SCH (10:02)
[2016-11-12] MEDS: DIPHENOXYLATE/ATROPINE 2.5 MG/0.025 MG/5 ML CUP PO SCH ×2 (10:02→21:10)
[2016-11-12] MEDS: PROPRANOLOL HCL 40 MG TAB PO SCH ×2 (10:02→21:10)
[2016-11-12] MEDS: FERROUS SULFATE 325 MG (65 MG ELEMENTAL IRON) TAB PO SCH (10:02)
[2016-11-12] MEDS: SODIUM CHLORIDE 0.9% FLUSH 5 ML FLUSH IVF SCH ×2 (10:02→21:09)
[2016-11-12] MEDS: ZINC SULFATE 220 MG CAP PO SCH (10:02)
[2016-11-12] MEDS: NYSTATIN 100,000 U/GM PWD 15 GM BTL TOPICAL SCH ×2 (10:03→21:11)
[2016-11-12] MEDS: ONDANSETRON HCL 4 MG/2 ML VIAL IV PUSH PRN (10:24)
[2016-11-12 10:25] VITALS: O2SAT 94
--- NOTE | 2016-11-12 11:06 | HHI.PR ---
Subjective Remarks The patient was feeling improved this morning. She said that she had some nausea earlier but that has resolved. She says her mood is a little bit better. She would be interested in increasing her antidepressant if possible. Discussed with nursing. Her ostomy output has decreased. Objective Vitals Vital Signs Date Time Temp Pulse Resp B/P Pulse Ox O2 Delivery O2 Flow Rate FiO2 11/12/16 10:00 94 Nasal Cannula 4.00 21 Humidified 11/12/16 08:00 97.9 84 18 113/64 94 11/12/16 00:00 97.4 80 20 110/54 94 11/11/16 22:03 Nasal Cannula 4.00 Humidified 11/11/16 20:00 97.2 78 20 106/56 93 11/11/16 16:00 74 18 104/57 92 11/11/16 12:00 97.7 76 18 121/62 94 I/O 11/11/16 11/11/16 11/11/16 11/12/16 11/12/16 11/12/16 07:00 15:00 23:00 07:00 15:00 23:00 Intake Total 775 ml 906 ml 1083 ml 595 ml Output Total 1050 ml 950 ml 450 ml 950 ml Balance -275 ml -44 ml 633 ml -355 ml Intake Oral 240 ml 360 ml 220 ml 120 ml IV Total 108 ml 425 ml 475 ml TPN/PPN 535 ml 438 ml 438 ml Output Urine Total 500 ml 400 ml 450 ml 600 ml Stool Total 550 ml 550 ml 0 ml 350 ml Drainage Total 0 ml 0 ml # Bowel Movements 0 Result Diagram: 11/10/16 0620 11/12/16 0500 Imaging Last Impressions PICC Line Insertion 11/10/16 0000 Signed Impressions: Service Date/Time: Thursday, November 10, 2016 17:07 - CONCLUSION: 1. Uncomplicated central venous Power PICC line placement. 2. The PICC line can be used immediately. Garrison Pascual MD Chest X-Ray 11/03/16 0000 Signed Impressions: Service Date/Time: Thursday, November 03, 2016 15:03 - CONCLUSION: Subclavian central venous catheter which is in good position. No evidence of pneumothorax. Improving lung aeration with decreasing congestion and bibasilar airspace disease. Kendall Lara MD Abdomen CT 1/11/17 0000 Signed Impressions: Service Date/Time: October 15:20 - CONCLUSION: No abnormalities are seen with respect to the liver or spleen. Previously noted small fluid collections adjacent to the small bowel loops within the right lower quadrant are no longer present. The configuration of the small bowel loops adjacent to the intra-abdominal wall at the site of mesh repair are consistent with areas of adhesion. No evidence of bowel obstruction.. Hoda Ash MD Abdomen/Pelvis CT 10/19/16 0000 Signed Impressions: Service Date/Time: September 15:10 - CONCLUSION: 1. There are 2 small rim-enhancing fluid collections in the right mid abdomen adjacent to the distal ileum that extends into the ileostomy. These measure 2.6 x 1.3 cm and 2.1 x 1.6 cm. These could represent infected fluid collections but are too small to place a drainage catheter. There is an additional small subcapsular fluid collection along the anterior left lobe of the liver. 2. Additionally, there is wall thickening of the distal ileal loops along with marked mesenteric edema. 3. There is a small volume of free fluid in the left upper quadrant around the spleen and in the pelvis. 4. There is a new small left pleural effusion with compressive atelectasis and right lower lobe volume loss versus airspace consolidation. Calixto Uriostegui MD Liver Ultrasound 07/12/16 0000 Signed Impressions: Service Date/Time: Tuesday, July 12, 2016 18:07 - CONCLUSION: 1. No acute abnormality demonstrated. 2. Heterogeneous liver without measurable mass. 3. Small and heterogeneous spleen without a measurable mass. 4. Cortical thinning and scarring of the right kidney. 5. Previous cholecystectomy. Calixto Woodruff MD Chest CT 07/09/16 0000 Signed Impressions: Service Date/Time: Saturday, July 09, 2016 14:43 - CONCLUSION: 1. Small right pleural effusion and minimal right basilar consolidation. 2. 6 mm left basilar nodule. Followup CT chest 6 months recommended. Florian Pepper MD Lower Extremity Ultrasound 06/25/16 0000 Signed Impressions: Service Date/Time: Saturday, June 25, 2016 15:56 - CONCLUSION: Negative exam with no evidence of deep venous thrombosis. Soft tissue edema. Mike Leija MD Port Line Insertion 06/20/16 0000 Signed Impressions: Service Date/Time: Monday, June 20, 2016 08:53 - CONCLUSION: Uncomplicated ultrasound and fluoroscopic guided implanted central venous port catheter placement as described in detail above. An 8 [place] Power port was placed. Kevan Salgado Jr., MD Objective Remarks GENERAL: Lying in bed. Awake, alert. Appears comfortable. SKIN: Warm and dry. HEAD: Normocephalic. EYES: No scleral icterus. No injection or drainage. NECK: Supple, trachea midline. No JVD. CARDIOVASCULAR: Regular rate and rhythm without murmurs, gallops or rubs. RESPIRATORY: Breath sounds equal bilaterally. No accessory muscle use. GASTROINTESTINAL: right-sided fistula with green/brown liquid stool, as before. Left-sided fistula with no significant output. No rebound or guarding. Wound VAC in midline incision. MUSCULOSKELETAL: No cyanosis, or edema. BACK: Nontender without obvious deformity. No CVA tenderness. NEURO: Tremors noted. PSYCH: Slightly flattened affect. Procedures Left stump debridement by Dr. Hill on 06/15/16 Bedside debridement of preperitoneal fat that was protruding from the abdominal fistula 09/01/16 central line placement Exploratory laparotomy, resection of the anterior abdominal wall fistula tract, resection of the transverse colon to small bowel anastomosis, lysis of adhesions of the small bowel with repair of two enterotomies, right-sided ileostomy, left-sided mucous fistula and partial removal of a ventral hernia mesh. Medications and IVs Current Medications Medications (Trade) Dose Ordered Sig/Shira Route Start Time Stop Time Status Last Admin (Rocaltrol) 0.25 mcg DAILY PO 06/15/16 09:00 11/12/16 10:00 (Ferrous Sulfate) 325 mg DAILY PO 06/15/16 09:00 11/12/16 10:02 (Pill Splitter) 1 ea UNSCH PRN OTHER 06/14/16 18:00 (Heparin Central Flush) 500 units UNSCH IVF 06/20/16 11:30 10/06/16 12:24 (NS Flush) 5 ml UNSCH PRN IVF 06/20/16 11:30 11/10/16 05:40 (Heparin Central Flush) 250 units UNSCH PRN IVF 06/20/16 11:30 07/26/16 14:54 (Mag-Al Plus Susp Liq) 30 ml Q6H PRN PO 07/09/16 16:45 12/8/16 21:39 (Tylenol) 650 mg Q4H PRN PO 07/11/16 05:45 11/08/16 06:20 (Mycostatin Powder) 1 applic Q12HR TOPICAL 07/11/16 12:00 11/12/16 10:03 (Remeron Soltab Odt) 15 mg HS PO 07/29/16 21:00 11/11/16 20:49 (Desitin 40% Oint) 1 applic UNSCH PRN TOPICAL 08/13/16 14:15 10/29/16 10:26 (Zinc Sulfate) 220 mg DAILY PO 09/04/16 09:00 11/12/16 10:02 (Cymbalta Dr) 30 mg DAILY PO 09/14/16 09:00 11/12/16 10:02 (Cardizem Cd) 240 mg DAILY PO 09/16/16 09:00 Hold 10/18/16 08:04 Gabapentin 300 mg 300 mg TID PO 10/06/16 13:00 Hold 10/09/16 13:39 Fat Emulsion Intravenous 250 ml @ 31.25 mls/ hr SuWe@20 IV-CENTRAL 10/08/16 20:00 11/08/16 22:18 (Mvi-12 Inj/ Folvite Inj/ Clinimix E 03/15) 2,010.2 ml @ 60 mls/hr Q24H IV-CENTRAL 10/08/16 20:00 11/11/16 20:49 (Zofran Inj) 4 mg Q6HR PRN IV PUSH 10/08/16 12:00 11/12/16 10:24 (NS Flush) 2 ml UNSCH PRN IVF 10/08/16 14:45 (NS Flush) 2 ml BID IVF 10/08/16 21:00 11/12/16 10:02 (Narcan Inj) 0.4 mg UNSCH PRN IV 10/08/16 14:45 (Peridex 0.12% Liq) 15 ml BID@08,20 MT 10/09/16 08:00 11/08/16 08:00 (Dilaudid Pf Inj) 0.5 mg Q3H PRN IV 10/11/16 12:00 11/06/16 22:30 (Dilaudid Pf Inj) 2 mg UNSCH PRN IV 10/12/16 10:45 11/03/16 15:03 (Ditropan) 2.5 mg Q8HR PO 10/14/16 14:41 11/12/16 04:41 (Lasix) 20 mg BID@09,18 PO 10/18/16 18:00 Hold 10/18/16 17:13 (Tylenol) 650 mg Q4H PRN PO 10/18/16 20:15 10/30/16 20:24 (Oscal-D 250-125) 500 mg BID PO 10/23/16 21:00 11/12/16 10:02 (D50w (Vial) Inj) 25 ml UNSCH PRN IV PUSH 10/24/16 16:15 Glucagon 1 mg 1 mg UNSCH PRN OTHER 10/24/16 16:15 Fluconazole/ Sodium Chloride 200 ml @ 100 mls/hr Q24H IV 10/30/16 17:00 11/11/16 15:32 (Ambisome Inj/ D5W 150 ml Inj) 150 ml @ 75 mls/hr Q24H IV 11/01/16 15:00 11/11/16 17:33 Hydromorphone HCl 1 mg 1 mg Q3H PRN IV PUSH 11/03/16 16:00 11/12/16 10:10 (INVanz INJ/NS Inj) 100 ml @ 200 mls/hr Q24H IV 11/04/16 12:00 11/11/16 12:14 (Xarelto) 15 mg DAILY PO 11/08/16 09:00 11/12/16 10:01 (Questran Light Pkt) 4 gm Q12HR PO 11/10/16 11:45 11/12/16 10:01 (Inderal) 40 mg Q12HR PO 11/10/16 14:30 11/12/16 10:02 (KCl 40 Meq/30 ml Liq) 40 meq DAILY PO 11/10/16 14:30 11/12/16 10:01 (Lomotil 2.5-0.025 Mg Liq) 5 ml BID PO 11/10/16 21:00 11/12/16 10:02 Date of Insertion: Jun 20, 2016 Side: Left A/P Problem List: (1) Septic shock ICD Code: A41.9 Status: Acute (2) Acute hypoxemic respiratory failure ICD Code: J96.01 Status: Acute (3) Ischemic colitis ICD Code: K55.9 Status: Resolved (4) COPD (chronic obstructive pulmonary disease) ICD Code: J44.9 Status: Chronic (5) depression Status: Chronic (6) Peripheral neuropathy ICD Code: G62.9 Status: Chronic (7) Chronic diastolic (congestive) heart failure ICD Code: I50.32 Status: Chronic (8) ZIA (acute kidney injury) ICD Code: N17.9 Status: Resolved (9) emergent Ex Lap for ischemic bowel/perforation 10/08/16 Status: Acute (10) Acute blood loss anemia ICD Code: D62 Status: Acute Assessment and Plan Ms. Wilson is a pleasant 71 year old female who was admitted to the hospital in Oct 2015 due to ischemic bowel and subsequently underwent resection of large , small bowel and cholecystectomy. 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 Patient was discharged to SNF but returned to the hospital due to post surgical complications. She underwent left foot amputation and subsequently had a lot of post surgical complications requiring wound vac. Her surgeon (Dr. Olvera) determined that patient was too high risk for further surgical intervention. Patient was on TPN and after discussing with Dr. Hill we switched patient to PO diet. Based on patient's desires, we spoke to Dr. Hill regarding a second surgical opinion. Dr. Hill was kind enough to consult Dr. Grajeda who evaluated patient on 10/07/2016. On 10/08/2016, patient was transferred to the main strabane after she complained of severe abdominal pain and CT scan showed ischemic bowel. Due to septic shock, patient was started on vancomycin and Cefepime prior to transfer. Septic shock/ Ischemic colitis S/p Ex lap, resection of anterior abdominal wall fistula tract, resection of transverse colon to small bowel anastomosis, right sided ileostomy, left sided mucous fistula and partial removal of a ventral hernia mesh 10/08/16. Has fungemia. Port and central line were removed. Chest abscess cultures positive for yeast. - follow up with surgery. - Echocardiogram cannot rule out vegetation. May need transesophageal echo, will defer to infectious disease. - cont ertapenem for ESBL + Kleb pneumo thru 11/16. - continue fluconazole and amphotericin B. - PT/OT. Malnutrition S/t bowel surgery. On TPN. Has a lot of stool output. Improved on Lomotil. - encourage PO intake. - follow up with dietary. - continue TPN. - GI consult appreciated. Trial of Lomotil. COPD/ Acute hypoxemic respiratory failure S/p extubation on 10/10/2016. - Continue bronchodilators, incentive spirometry. - On O2 4 L 11/12. Acute blood loss anemia S/p 4 units of PRBCs on 10/08/2016. Hemoglobin continues to be stable. - Monitor as necessary. Diabetes mellitus On TPN. Glucose well controlled 11/12. - Continue sliding scale. Tremors Ongoing for the past year. - trial of propranolol. Improved. - will need neuro work-up as an outpt. Delirium The pt endorses intermittent confusion. - frequent reorientation. - treat infection as above. - ST cognitive eval requested. Depression On Remeron and Celexa. - increase Remeron 11/12. - continue Celexa. PPx: Xarelto; Protonix. Discharge Planning Awaiting clinical improvement. Mike Ayala DO Nov 12, 2016 11:06
[2016-11-12 12:00] VITALS: BP 109/68; PULSE 83; RESP 19; TEMP 97.7; O2SAT 95
[2016-11-12] MEDS: ERTAPENEM INJ 1,000 MG in SODIUM CHLORIDE 0.9% INJ 100 ML IV SCH (12:52)
[2016-11-12] MEDS: WATE IV SCH ×2 (15:22)
[2016-11-12] MEDS: DEXTROSE 5% IV SCH ×2 (15:22)
[2016-11-12] MEDS: AMPHOTERICIN B LIPOSOME IV SCH ×2 (15:22)
[2016-11-12 16:00] VITALS: BP 111/77; PULSE 78; RESP 18; TEMP 97.9; O2SAT 97
[2016-11-12] MEDS: FLUCONAZOLE 400 MG PREMIX BAG 200 ML IV SCH (17:50)
[2016-11-12 20:00] VITALS: BP 124/61; PULSE 80; RESP 20; TEMP 97.4; O2SAT 95
[2016-11-12] MEDS: CLINIMIX E 5/25 2000 mL- >42 mls/hr IV-CENTRAL SCH ×3 (21:09)
[2016-11-12] MEDS: FAT EMULSION 20% INJ 250 ML (Twice weekly over 8 hours) IV-CENTRAL SCH (21:09)
[2016-11-12] MEDS: MIRTAZAPINE ODT 30 MG TAB PO SCH (21:10)
[2016-11-13] VITALS: BP 126/66; PULSE 76; RESP 20; TEMP 98; O2SAT 94
[2016-11-13] MEDS: OXYBUTYNIN CHLORIDE 5 MG TAB PO SCH ×3 (04:38→21:46)
[2016-11-13] MEDS: INSULIN ASPART SUPPLEMENTAL SCALE SQ SCH ×4 (04:38→21:00)
[2016-11-13] MEDS: HYDROmorphone HCL PF 1 MG/ML VIAL IV PUSH PRN ×4 (04:39→21:53)
[2016-11-13 08:00] VITALS: BP 121/60; PULSE 77; RESP 16; TEMP 96.7; O2SAT 92
[2016-11-13] MEDS: CHLORHEXIDINE 0.12% (ORAL KIT) 15 ML CUP MT SCH ×2 (08:00→20:00)
[2016-11-13 08:31] VITALS: O2SAT 95
[2016-11-13] MEDS: POTASSIUM CL 40 MEQ/30 ML LIQ UDC PO SCH ×2 (09:00→09:19)
[2016-11-13] MEDS: NYSTATIN 100,000 U/GM PWD 15 GM BTL TOPICAL SCH ×2 (09:00→21:00)
[2016-11-13] MEDS: SODIUM CHLORIDE 0.9% FLUSH 5 ML FLUSH IVF SCH ×2 (09:00→21:41)
[2016-11-13] MEDS: CHOLESTYRAMINE LIGHT 4 GM PACKAGE PO SCH ×3 (09:00→21:43)
[2016-11-13] MEDS: DULoxetine HCl DR 30 MG CAP PO SCH (09:19)
[2016-11-13] MEDS: DIPHENOXYLATE/ATROPINE 2.5 MG/0.025 MG/5 ML CUP PO SCH ×2 (09:19→22:06)
[2016-11-13] MEDS: ZINC SULFATE 220 MG CAP PO SCH (09:19)
[2016-11-13] MEDS: CALCIUM/VITAMIN D 250 MG/125 U TAB PO SCH ×2 (09:19→21:42)
[2016-11-13] MEDS: PROPRANOLOL HCL 40 MG TAB PO SCH ×2 (09:19→21:42)
[2016-11-13] MEDS: RIVAROXABAN 15 MG TAB PO SCH (09:19)
[2016-11-13] MEDS: CALCITRIOL 0.25 MCG CAP PO SCH (09:19)
[2016-11-13] MEDS: FERROUS SULFATE 325 MG (65 MG ELEMENTAL IRON) TAB PO SCH (09:19)
[2016-11-13] MEDS: ERTAPENEM INJ 1,000 MG in SODIUM CHLORIDE 0.9% INJ 100 ML IV SCH (11:29)
[2016-11-13 12:00] VITALS: BP 121/62; PULSE 75; RESP 18; TEMP 97.1; O2SAT 95
--- NOTE | 2016-11-13 12:23 | HHI.GIFU ---
Subjective Remarks Resting in bed. No complaints. Nurse reports that her ileostomy was leaking under wafer into wound vac drsg and that they do not have any orders to change wound vac. Instructed nurse to notify Dr. Hill for further orders and to call wound nurse if she needs help changing the wafer. Objective Vitals I&O Vital Signs Date Time Temp Pulse Resp B/P Pulse Ox O2 Delivery O2 Flow Rate FiO2 11/13/16 08:31 95 Nasal Cannula 3.00 11/13/16 08:00 96.7 77 16 121/60 92 11/13/16 00:00 98.0 76 20 126/66 94 11/12/16 21:15 Nasal Cannula 3.00 11/12/16 21:00 Nasal Cannula 4.00 Humidified 11/12/16 20:00 97.4 80 20 124/61 95 11/12/16 16:00 97.9 78 18 111/77 97 I/O 11/12/16 11/12/16 11/12/16 11/13/16 11/13/16 11/13/16 07:00 15:00 23:00 07:00 15:00 23:00 Intake Total 595 ml 817 ml 1068 ml 926 ml Output Total 950 ml 775 ml 800 ml 1050 ml Balance -355 ml 42 ml 268 ml -124 ml Intake Oral 120 ml 60 ml 120 ml 440 ml IV Total 475 ml 120 ml 360 ml TPN/PPN 637 ml 338 ml 486 ml Lipid 250 ml Output Urine Total 600 ml 500 ml 450 ml 650 ml Stool Total 350 ml 275 ml 350 ml 400 ml Drainage Total 0 ml 0 ml 0 ml # Bowel Movements 0 0 Imaging Last Impressions PICC Line Insertion 11/10/16 0000 Signed Impressions: Service Date/Time: Thursday, November 10, 2016 17:07 - CONCLUSION: 1. Uncomplicated central venous Power PICC line placement. 2. The PICC line can be used immediately. Garrison Pascual MD Chest X-Ray 11/03/16 0000 Signed Impressions: Service Date/Time: Thursday, November 03, 2016 15:03 - CONCLUSION: Subclavian central venous catheter which is in good position. No evidence of pneumothorax. Improving lung aeration with decreasing congestion and bibasilar airspace disease. Kendall Lara MD Abdomen CT 11/01/16 0000 Signed Impressions: Service Date/Time: October 15:20 - CONCLUSION: No abnormalities are seen with respect to the liver or spleen. Previously noted small fluid collections adjacent to the small bowel loops within the right lower quadrant are no longer present. The configuration of the small bowel loops adjacent to the intra-abdominal wall at the site of mesh repair are consistent with areas of adhesion. No evidence of bowel obstruction.. Hoda Ash MD Abdomen/Pelvis CT 10/19/16 0000 Signed Impressions: Service Date/Time: September 15:10 - CONCLUSION: 1. There are 2 small rim-enhancing fluid collections in the right mid abdomen adjacent to the distal ileum that extends into the ileostomy. These measure 2.6 x 1.3 cm and 2.1 x 1.6 cm. These could represent infected fluid collections but are too small to place a drainage catheter. There is an additional small subcapsular fluid collection along the anterior left lobe of the liver. 2. Additionally, there is wall thickening of the distal ileal loops along with marked mesenteric edema. 3. There is a small volume of free fluid in the left upper quadrant around the spleen and in the pelvis. 4. There is a new small left pleural effusion with compressive atelectasis and right lower lobe volume loss versus airspace consolidation. Calixto Uriostegui MD Liver Ultrasound 07/12/16 0000 Signed Impressions: Service Date/Time: Tuesday, July 12, 2016 18:07 - CONCLUSION: 1. No acute abnormality demonstrated. 2. Heterogeneous liver without measurable mass. 3. Small and heterogeneous spleen without a measurable mass. 4. Cortical thinning and scarring of the right kidney. 5. Previous cholecystectomy. Calixto Woodruff MD Chest CT 07/09/16 0000 Signed Impressions: Service Date/Time: Saturday, July 09, 2016 14:43 - CONCLUSION: 1. Small right pleural effusion and minimal right basilar consolidation. 2. 6 mm left basilar nodule. Followup CT chest 6 months recommended. Florian Pepper MD Lower Extremity Ultrasound 06/25/16 0000 Signed Impressions: Service Date/Time: Saturday, June 25, 2016 15:56 - CONCLUSION: Negative exam with no evidence of deep venous thrombosis. Soft tissue edema. Mike Leija MD Port Line Insertion 06/20/16 0000 Signed Impressions: Service Date/Time: Monday, June 20, 2016 08:53 - CONCLUSION: Uncomplicated ultrasound and fluoroscopic guided implanted central venous port catheter placement as described in detail above. An 8 [place] Power port was placed. Kevan Salgado Jr., MD Physical Exam HEENT: Normocephalic; atraumatic; no jaundice. CHEST: Resp. even/unlabored. CARDIAC: RRR ABDOMEN: Soft, nondistended, tender; Ileostomy with small amount of greenish semi formed stool. Left sided colostomy with small amount of brown stool. Midline abdominal wound with wound vac. Green stool has leaked from under wafer for ileostomy into wound vac drsg and patient has redness around her midline incision. EXTREMITIES: Left BKA. Tender right foot SKIN: Generalized pallor [employer]: Very lethargic. Assessment and Plan Plan ASSESSMENT: - Short gut syndrome with high stool output. 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 This was then complicated by development of enterocutaneous fistula, which she then underwent exploratory laparotomy with resection of the segment of the large bowel containing the anastomosis to the small bowel and the fistula, end ileostomy and mucous fistula colostomy creation and removal of segments of ventral hernia mesh placed at some point many years in the past. She has a wound vac to her midline abdominal wound. She has high stool output from the ileostomy, with 1850cc-5850cc of stool output daily. Stool studies negative. She is on TPN. GI was consulted for evaluation for possible Gattex. This would be a good option, but is very expensive, Each injection is $1,500 and the monthly cost would be $45,000 a month. It is not available at this facility and should not be initiated unless this is something that could be continued at discharge. Spoke to Felicity in [place]. She is still waiting to hear back from insurance auditor regarding Gattex , but was able to speak to [facility]. Pt is a difficult placement and the plan is for her to return to [facility] and they are currently holding her bed. However, they state that they will not be able to accept her back if she requires the Gattex. She was started on trial of cholestyramine and scheduled lomotil. Her diarrhea has slowed down from 5850cc a day to 900-1850cc and appears to be improving daily. Will continue this treatment for now. Plan: - Cont. TPN and JULES - Cont. Cholestyramine - Cont. Lomotil - Monitor electrolytes - Monitor stool output - Supportive care - Further recommendations to follow based on results of above - Pt seen and examined by Dr. Castañeda and myself and this note is written on her behalf Rama Kauffman Nov 13, 2016 12:23
[2016-11-13] MEDS: DEXTROSE 5% IV SCH ×2 (15:56)
[2016-11-13] MEDS: AMPHOTERICIN B LIPOSOME IV SCH ×2 (15:56)
[2016-11-13] MEDS: WATE IV SCH ×2 (15:56)
[2016-11-13 16:00] VITALS: BP 115/64; PULSE 73; RESP 17; TEMP 95.1; O2SAT 98
--- NOTE | 2016-11-13 17:34 | PD.CAR.PN ---
CVT Progress Note Subjective/Hospital Course: 70-year-old female with a complex medical and surgical history of peripheral vascular disease and multiple related problems presents now status post BK amputation about a month half ago. Patient went to alf and apparently braced herself on the stump several times in bed in hit it against either floor or the chair not quite clear. Part of the stump opened up and at this point patient is dehiscence of skin deeper tissue seemed to be still intact. 06/16/16 Patient underwent yesterday debridement of the stump with wound VAC placement. The dehiscence is fortunately superficial involving skin and muscle in this as been debrided successfully while the rest of the tissues of bleeding and are viable. Wound VAC has been placed Cultures have been reviewed and antibiotics can be adjusted by medicine as appropriate We'll continue current care and patient should be able to go to alf with a wound VAC by Sunday Patient's nutritional status is very poor with a low albumen and prealbumin level and therefore nutritional evaluation and recommendations are requested I believe the patient is not taking sufficient by mouth in the alf and may need supplemental enteral or parenteral feedings at this point 06/17/16 I reviewed the nutritional parameters and patient's prealbumin and transferrin levels a critically low indicating severe malnutrition. Patient's healing is impaired and so is the rehabilitative potential. After reviewing to nutritional recommendations once these are made, we will decide whether patient needs an [id number] placed for additional parenteral nutrition for short bowel syndrome Stump is nice and clean with minimal drainage from the wound VAC 06/19/16 Still awaiting nutritional consult and evaluation for patient has short gut syndrome and will probably need additional parenteral feedings. If so patient will need [id number] placement for additional feedings Patient is taking excellent by mouth but despite that her nutritional status is poor and hence the healing issues Left BKA stump incision is clean and wound VAC is in place with minimal drainage and will need to be changed today Awaiting wound care to change the wound VAC. Infectious disease help is much appreciated 06/20/2016 Patient doing well at this time. Stump is clean and the wound VAC will be changed today Patient had [id number] placed by radiology for supplemental parenteral feedings. Grateful for the nutritional evaluation. Patient will be placed on TPN at about the 1500 non-protein calories a day split about 60-70% in glucose and about 30% in form of lipids Patient will likely have to be discharged on supplemental TPN in face of her short bowel syndrome 06/21/16 Patient is doing really well at this time She's taking good by mouth diet. 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 There is some granulation tissue which may eventually need to be debrided but at this point I would leave it alone. Stump wound VAC has been changed and this is clean and granulating nicely. Patient is currently on TPN which tolerating well. In face of her short bowel syndrome patient will need TPN after discharge from the hospital. Grateful to case management for making arrangements for the same 06/22/16 Vital signs stable patient is doing well. Her appetite has improved and patient is taking good by mouth diet and having regular bowel movements. The abdominal incision is completely healed and fistula has completely resolved. The BKA wound VAC has been changed and wound is clean and granulating nicely. [id number] is being used for additional parenteral feedings necessary and short bowel syndrome and patient will be discharged on TPN. 06/23/16 Patient underwent today change of the wound VAC and the wound is clean. Next with will be the last wound VAC change and after that I plan to take the patient to the OR for irrigation and closure of the wound by the middle of the next week. 06/24/16 Patient doing very well at this time she is in a good mood and taking by mouth diet well Unfortunately due to the short bowel syndrome she need supplemental TPN feedings at this time Stump is healed nicely there is a small scab anterior to it and this should allow to fall off on its own Once the arrangements are made for outpatient TPN patient will be able to be discharged Awaiting case management to make the arrangements for outpatient TPN 06/25/16 Vital signs stable Patient is awake and alert and oriented, taking by mouth diet very well Abdomen is soft and the colocutaneous fistula is completely closed The BKA stump has an eschar and a scab but I would leave this alone because underneath its healing nicely. Patient remains on TPN considering the short gut syndrome and will go home on the same Mild anemia is dilutional due to TPN administration and intravenous fluids and does not require therapy at this time 06/26/16 Vital signs stable Patient is awake and alert and oriented, taking by mouth diet very well Abdomen is soft and the colocutaneous fistula is completely closed The BKA stump has an eschar and a scab but I would leave this alone because underneath its healing nicely. Patient remains on TPN considering the short gut syndrome and will go home on the same Mild anemia is dilutional due to TPN administration and intravenous fluids and does not require therapy at this time 06/27/16 Wound VAC has been removed by me and the the entire stump is healed very nicely except a small area but an inch length at the very lateral portion of the incision were we going to put a very small wound VAC on for another week or so. Patient can transfer to rehabilitation at any time as long as she can get intravenous TPN in the process 06/28/16 Wound VAC has been removed by me and the the entire stump is healed very nicely except a small area but an inch length at the very lateral portion of the incision were we going to put a very small wound VAC on for another week or so. Patient can transfer to rehabilitation at any time as long as she can get intravenous TPN Patient will need exterminator helper TPN considering short gut syndrome and this can be done either in a alf or at home I suspect this will be about a six-month process and after that patient may not need additional feedings if we can get her in a reasonable nutritional status in the meantime. I understand the difficulty this creates for case management to find her such an arrangement 06/29/16 Patient doing really well at this time taking good by mouth but due to the short bowel syndrome will require long-term TPN Stump is healing really nicely and the probably after this week we will remove the wound VAC and simply place wet-to-dry dressing and allow this to heal 06/30/16 Patient is doing well tolerates diet. Abdomen is soft with active bowel sounds Incisions are clean and dry Wound VAC last change will be next week and after that we going to remove the wound VAC and continue wet-to-dry dressing Stump is healing really nicely Due to TPN and other issues placement remains a problem 07/01/16 Abdomen soft and active bowel sounds Tolerates diet well Stump is clean and dry and I'll remove the wound VAC on Sunday after that patient will just be on wet-to-dry dressings until the stump heels Arrangements for discharge to difficult due to long-term TPN needs 07/03/16 Vital signs stable Stump is clean and wound VAC after next removal won't need to be applied again Patient will remain long-term on TPN and I'm waiting for case management to make discharge arrangements Will [facility] medicine kindly if patient can be transferred to medicine service at this time 07/14/16 Patient is a placement issue apparently is still in the hospital The left BKA stump is healed nicely except for very small air about 1 cm which is granulating in on the lateral aspect of the stump Apparently the enterocutaneous fistula was close for about month and a half and opened up 2 days ago draining some stool It should be noted that the bowel is quite close to the skin and patient is very thin and malnourished so it is not surprising that fistula opens and closes sporadically. With enteral and parenteral nutrition that should close but clearly patient is very frail and it could open up any time Nothing to add to care at this time 07/26/16 Discussed the patient with medical attending. She has systemic cutaneous herpes zoster and is on appropriate medications The drainage from anterior abdominal wall is very minimal however irritating to the skin of the abdominal wall in face of herpes and the nature of intestinal fluid. Just putting dressings will only worsen the situation so patient should be treated with the stoma and coverage of the skin. Unfortunately the colostomy material will not stick to the skin and the contents will leak underneath it. At point is best solution was due to apply Silvadene ointment daily and then dressing Patient's appetite is very poor sure refuses food and she remains on TPN although her GI tract is completely patent Her prognosis in general is for due to malnutrition short bowel syndrome and immune failure. 09/01/16 Patient seen at [facility]. Patient has tremendously improved in the last month or so. The rash she had has since disappeared I am not sure this was a herpetic rash or perhaps caused by zinc or selenium deficiency At this point patient is eating well and she is again about 15 pounds. Her short bowel syndrome as being managed adequately with improvement of by mouth intake and modification of the diet Abdomen is soft with active bowel sounds and the fistula has closed There is small amount of preperitoneal fat extruding from the abdomen incision. I debrided this at the bedside In the worse case scenario patient would have to go to the operating room to have this cauterized away and reclosed but I would certainly like to avoid this in this lady was finally recovering nicely 11/20/16 Last night patient was straining when going to bathroom and enterocutaneous fistula opened up again Patient is now draining stool over the last 24 hours. 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 She underwent several surgeries and it is a miracle that patient has survived all this. The fistulous tract has now opened and closed about 5 times since September last year when patient's first came and this is now another instance of the same. As far as the fistulous tract is concerned this patient is not a candidate for an open surgery due to malnutrition, short bowel syndrome in the anatomic considerations. Going into this abdomen with resultant multiple fistulas, damage to the remaining small bowel and likely of the patient Therefore the appropriate way to manage this as conservatively filled the fistula tracts closes again Physical examination reveals skin inferior to the fistula to be starting to get red again and irritated although it was nicely healed as stated in above note It should be noted that this is distal small bowel content and therefore fairly caustic so meticulous care has to be taken not to allow this to be in contact with the skin On my arrival one part of the fistula in the midline is covered with a colostomy bag while the stool is freely draining all over the patient's abdomen between the legs and on the bed I went into the room ostomy nurse to come with me and removed personally everything cleaned patient up with nursing assistance I said down with the data warehouse analyst and the nurse and explained in detail how this should be covered and how the stoma should be structured in order to protect the skin Apparently large pieces of stoma skin adhesive material are not available here and let to be brought from [facility]. The same large pieces were used when patient first came to [place] and care was described in orders At this point meticulous care has to be taken in order to prevent skin damage and free leakage It is also imperative that the wound care gets involved in management of this patient 10/30/16 Patient had the spike a fever today to 101.8 White count 16,000 Abdomen is soft with active bowel sounds and ileostomy is working very well Bilateral breath sounds and no rhonchi or rales Wound VAC has been changed today and I'll look to the wound leg really looks nice and healing very nicely with good granulation tissue No signs of dehiscence I believe the fever spikes are part of the fungemia and unfortunately 30-50% of patients will develop systemic fungemia in this setting will succumb to the same despite maximum therapy Patient remains on micafungin Continue care 10/31/16 Abdomen is soft and active bowel sounds and incision is nice and granulating underneath the wound VAC Ileostomy working fine White count is coming down and patient hasn't had any fever spikes since placed on Diflucan and micafungin Unfortunately patient refuses to eat and also refuses to get out of bed Physical therapy and occupational therapy of trying to mobilize the patient but she will not cooperate She also refuses to take by mouth diet but drinks high caloric supplements at least Respiratory-gillette patient is doing well throughout the day and then 2 in the evening her sats started dropping to again improve later on Will order ABGs and perhaps do a CAT scan of the chest to assess for any effusions or any other possible causes for this Again patient is very ill with fungemia which carries high mortality and ICU patient's especially with immunosuppression accompanying the clinical picture 08/22/17 I today patient is doing okay She doesn't want to take any by mouth diet except high caloric supplements Abdomen is soft active bowel sounds ileostomy and colostomy clean and midline wound is healing nicely with a the wound VAC Bilateral breath sounds decreased over the both lung chaney consistent with bilateral pulmonary consolidation unlikely mu onset lower lobe pneumonia Patient is unwilling to get out of bed and does not participate in physical occupational therapy rather chased some out of the room Discussed the care with her clutch mechanic Mrs. 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 Currently on amphotericin B and antibiotics Patient is refusing any by mouth diet and is refusing to get out of bed She will developed pneumonia and and up on the respirator again if she continues to refuse activity Midline incision wound VAC has been changed and appears to be clean and granulating nicely 11/07/16 Patient somewhat improved awake alert and oriented White count has normalized Abdomen is soft with active bowel sounds ileostomy working fine Midline incision is healing very well Patient refuses take by mouth diet except for occasional bites of something and ensure Nothing to add to care 11/08/16 Abdominal incision is clean and wound VAC is in place be changed tomorrow Ileostomy working fine Patient taking by mouth however refuses regular diet and only drinks fluids Remains afebrile at this time and infection seem to be under control Very hard to manage as far as physical therapy is concerned because patient refuses to get out of bed or participate in any therapy Have tried to explain to her the importance of physical therapy in order to get her back on her feet regain strength and mobilize as well as as a means to prevent pneumonia but patient will not get out of bed 11/13/16 Ileostomy is nice and clean working fine Unfortunately ileostomy bag got disconnected and the fluid leaked into the midline incision secondary closure site Therefore the wound VAC have to be removed wound washed and replaced It's quite difficult to protect the wounds in this situation where patient's abdomen so tiny that all the structures a sort of in close proximity I've discussed this with the wound care nurse and she was kind to change her wound VAC today Patient finally at half of her breakfast and half of her lunch today which is actually an improvement and I am happy that patient is eating more Objective: Vital Signs Date Time Temp Pulse Resp B/P Pulse Ox O2 Delivery O2 Flow Rate FiO2 11/13/16 12:00 97.1 75 18 121/62 95 11/13/16 08:31 95 Nasal Cannula 3.00 11/13/16 08:00 96.7 77 16 121/60 92 11/13/16 00:00 98.0 76 20 126/66 94 11/12/16 21:15 Nasal Cannula 3.00 11/12/16 21:00 Nasal Cannula 4.00 Humidified 11/12/16 20:00 97.4 80 20 124/61 95 Result Diagram: 11/10/16 0620 11/12/16 0500 Janice Olvera MD Nov 13, 2016 17:34
[2016-11-13] MEDS: FLUCONAZOLE 400 MG PREMIX BAG 200 ML IV SCH (17:58)
[2016-11-13 20:00] VITALS: BP 136/63; PULSE 77; RESP 18; TEMP 97.1; O2SAT 95
[2016-11-13] MEDS: CLINIMIX E 5/25 2000 mL- >42 mls/hr IV-CENTRAL SCH ×3 (20:00)
[2016-11-13] MEDS: MIRTAZAPINE ODT 30 MG TAB PO SCH (22:07)
[2016-11-14] VITALS: BP 124/60; PULSE 72; RESP 18; TEMP 96.8; O2SAT 95
[2016-11-14] MEDS: HYDROmorphone HCL PF 1 MG/ML VIAL IV PUSH PRN ×4 (04:17→20:18)
[2016-11-14] MEDS: SODIUM CHLORIDE 0.9% FLUSH 5 ML FLUSH IVF PRN ×2 (04:17→17:25)
[2016-11-14] MEDS: OXYBUTYNIN CHLORIDE 5 MG TAB PO SCH ×3 (06:00→22:00)
[2016-11-14] MEDS: INSULIN ASPART SUPPLEMENTAL SCALE SQ SCH ×4 (06:32→22:52)
[2016-11-14 08:00] VITALS: BP 113/69; PULSE 81; RESP 16; TEMP 97.6; O2SAT 94
[2016-11-14] MEDS: CHLORHEXIDINE 0.12% (ORAL KIT) 15 ML CUP MT SCH ×2 (08:00→20:00)
[2016-11-14] MEDS: NYSTATIN 100,000 U/GM PWD 15 GM BTL TOPICAL SCH ×2 (09:00→20:06)
[2016-11-14] MEDS: SODIUM CHLORIDE 0.9% FLUSH 5 ML FLUSH IVF SCH ×2 (09:00→20:03)
[2016-11-14] MEDS: POTASSIUM CL 40 MEQ/30 ML LIQ UDC PO SCH (09:41)
[2016-11-14] MEDS: CHOLESTYRAMINE LIGHT 4 GM PACKAGE PO SCH ×2 (09:42→20:05)
[2016-11-14] MEDS: CALCIUM/VITAMIN D 250 MG/125 U TAB PO SCH ×2 (09:42→20:04)
[2016-11-14] MEDS: CALCITRIOL 0.25 MCG CAP PO SCH (09:42)
[2016-11-14] MEDS: DULoxetine HCl DR 30 MG CAP PO SCH (09:42)
[2016-11-14] MEDS: RIVAROXABAN 15 MG TAB PO SCH (09:42)
[2016-11-14] MEDS: FERROUS SULFATE 325 MG (65 MG ELEMENTAL IRON) TAB PO SCH (09:42)
[2016-11-14] MEDS: PROPRANOLOL HCL 40 MG TAB PO SCH ×2 (09:43→20:03)
[2016-11-14] MEDS: ZINC SULFATE 220 MG CAP PO SCH (09:43)
[2016-11-14] MEDS: DIPHENOXYLATE/ATROPINE 2.5 MG/0.025 MG/5 ML CUP PO SCH ×2 (09:43→20:04)
[2016-11-14] MEDS: ONDANSETRON HCL 4 MG/2 ML VIAL IV PUSH PRN (09:55)
--- NOTE | 2016-11-14 10:28 | HHI.PR ---
Subjective Remarks deferred entry. Patient seen on 11/13 around 5:30 pm denies cp/sob denies fevers/chills stable vital signs Patient eating more Objective Vitals Vital Signs Date Time Temp Pulse Resp B/P Pulse Ox O2 Delivery O2 Flow Rate FiO2 11/14/16 08:00 97.6 81 16 113/69 94 11/14/16 00:00 96.8 72 18 124/60 95 11/13/16 20:00 97.1 77 18 136/63 95 11/13/16 16:00 95.1 73 17 115/64 98 11/13/16 12:00 97.1 75 18 121/62 95 I/O 11/13/16 11/13/16 11/13/16 11/14/16 11/14/16 11/14/16 07:00 15:00 23:00 07:00 15:00 23:00 Intake Total 926 ml 400 ml 1020 ml 736 ml Output Total 1050 ml 970 ml 300 ml 1200 ml Balance -124 ml -570 ml 720 ml -464 ml Intake Oral 440 ml 400 ml 120 ml 240 ml IV Total 450 ml 496 ml TPN/PPN 486 ml 450 ml Output Urine Total 650 ml 400 ml 300 ml 700 ml Stool Total 400 ml 570 ml 500 ml Drainage Total 0 ml 0 ml 0 ml 0 ml # Bowel Movements 0 Result Diagram: 11/10/16 0620 11/12/16 0500 Imaging Last Impressions PICC Line Insertion 11/10/16 0000 Signed Impressions: Service Date/Time: Thursday, November 10, 2016 17:07 - CONCLUSION: 1. Uncomplicated central venous Power PICC line placement. 2. The PICC line can be used immediately. Garrison Pascual MD Chest X-Ray 11/03/16 0000 Signed Impressions: Service Date/Time: Thursday, November 03, 2016 15:03 - CONCLUSION: Subclavian central venous catheter which is in good position. No evidence of pneumothorax. Improving lung aeration with decreasing congestion and bibasilar airspace disease. Kendall Lara MD Abdomen CT 11/01/16 0000 Signed Impressions: Service Date/Time: October 15:20 - CONCLUSION: No abnormalities are seen with respect to the liver or spleen. Previously noted small fluid collections adjacent to the small bowel loops within the right lower quadrant are no longer present. The configuration of the small bowel loops adjacent to the intra-abdominal wall at the site of mesh repair are consistent with areas of adhesion. No evidence of bowel obstruction.. Hoda Ash MD Abdomen/Pelvis CT 10/19/16 0000 Signed Impressions: Service Date/Time: September 15:10 - CONCLUSION: 1. There are 2 small rim-enhancing fluid collections in the right mid abdomen adjacent to the distal ileum that extends into the ileostomy. These measure 2.6 x 1.3 cm and 2.1 x 1.6 cm. These could represent infected fluid collections but are too small to place a drainage catheter. There is an additional small subcapsular fluid collection along the anterior left lobe of the liver. 2. Additionally, there is wall thickening of the distal ileal loops along with marked mesenteric edema. 3. There is a small volume of free fluid in the left upper quadrant around the spleen and in the pelvis. 4. There is a new small left pleural effusion with compressive atelectasis and right lower lobe volume loss versus airspace consolidation. Calixto Uriostegui MD Liver Ultrasound 07/12/16 0000 Signed Impressions: Service Date/Time: Tuesday, July 12, 2016 18:07 - CONCLUSION: 1. No acute abnormality demonstrated. 2. Heterogeneous liver without measurable mass. 3. Small and heterogeneous spleen without a measurable mass. 4. Cortical thinning and scarring of the right kidney. 5. Previous cholecystectomy. Calixto Woodruff MD Chest CT 07/09/16 0000 Signed Impressions: Service Date/Time: Saturday, July 09, 2016 14:43 - CONCLUSION: 1. Small right pleural effusion and minimal right basilar consolidation. 2. 6 mm left basilar nodule. Followup CT chest 6 months recommended. Florian Pepper MD Lower Extremity Ultrasound 06/25/16 0000 Signed Impressions: Service Date/Time: Saturday, June 25, 2016 15:56 - CONCLUSION: Negative exam with no evidence of deep venous thrombosis. Soft tissue edema. Mike Leija MD Port Line Insertion 06/20/16 0000 Signed Impressions: Service Date/Time: Monday, June 20, 2016 08:53 - CONCLUSION: Uncomplicated ultrasound and fluoroscopic guided implanted central venous port catheter placement as described in detail above. An 8 [employer] Power port was placed. Kevan Salgado Jr., MD Objective Remarks GENERAL: Lying in bed. Awake, alert. Appears comfortable. SKIN: Warm and dry. HEAD: Normocephalic. EYES: No scleral icterus. No injection or drainage. NECK: Supple, trachea midline. No JVD. CARDIOVASCULAR: Regular rate and rhythm without murmurs, gallops or rubs. RESPIRATORY: Breath sounds equal bilaterally. No accessory muscle use. GASTROINTESTINAL: right-sided fistula with green/brown liquid stool, as before. Left-sided fistula with no significant output. No rebound or guarding. Wound VAC in midline incision. MUSCULOSKELETAL: No cyanosis, or edema. BACK: Nontender without obvious deformity. No CVA tenderness. NEURO: Tremors noted. PSYCH: Slightly flattened affect. Procedures Left stump debridement by Dr. Hill on 06/15/16 Bedside debridement of preperitoneal fat that was protruding from the abdominal fistula 09/01/16 central line placement Exploratory laparotomy, resection of the anterior abdominal wall fistula tract, resection of the transverse colon to small bowel anastomosis, lysis of adhesions of the small bowel with repair of two enterotomies, right-sided ileostomy, left-sided mucous fistula and partial removal of a ventral hernia mesh. Medications and IVs Current Medications Medications (Trade) Dose Ordered Sig/Shira Route Start Time Stop Time Status Last Admin (Rocaltrol) 0.25 mcg DAILY PO 06/15/16 09:00 11/14/16 09:42 (Ferrous Sulfate) 325 mg DAILY PO 06/15/16 09:00 11/14/16 09:42 (Pill Splitter) 1 ea UNSCH PRN OTHER 06/14/16 18:00 (Heparin Central Flush) 500 units UNSCH IVF 06/20/16 11:30 10/06/16 12:24 (NS Flush) 5 ml UNSCH PRN IVF 06/20/16 11:30 11/10/16 05:40 (Heparin Central Flush) 250 units UNSCH PRN IVF 06/20/16 11:30 07/26/16 14:54 (Mag-Al Plus Susp Liq) 30 ml Q6H PRN PO 07/09/16 16:45 09/28/16 21:39 (Tylenol) 650 mg Q4H PRN PO 07/11/16 05:45 11/08/16 06:20 (Mycostatin Powder) 1 applic Q12HR TOPICAL 07/11/16 12:00 11/14/16 09:00 (Desitin 40% Oint) 1 applic UNSCH PRN TOPICAL 08/13/16 14:15 10/29/16 10:26 (Zinc Sulfate) 220 mg DAILY PO 09/04/16 09:00 11/14/16 09:43 (Cymbalta Dr) 30 mg DAILY PO 09/14/16 09:00 11/14/16 09:42 (Cardizem Cd) 240 mg DAILY PO 09/16/16 09:00 Hold 10/18/16 08:04 Gabapentin 300 mg 300 mg TID PO 10/06/16 13:00 Hold 10/09/16 13:39 Fat Emulsion Intravenous 250 ml @ 31.25 mls/ hr SuWe@20 IV-CENTRAL 10/08/16 20:00 11/12/16 21:09 (Mvi-12 Inj/ Folvite Inj/ Clinimix E 03/15) 2,010.2 ml @ 60 mls/hr Q24H IV-CENTRAL 10/08/16 20:00 11/13/16 20:00 (Zofran Inj) 4 mg Q6HR PRN IV PUSH 10/08/16 12:00 11/14/16 09:55 (NS Flush) 2 ml UNSCH PRN IVF 10/08/16 14:45 11/14/16 04:17 (NS Flush) 2 ml BID IVF 10/08/16 21:00 11/14/16 09:00 (Narcan Inj) 0.4 mg UNSCH PRN IV 10/08/16 14:45 (Peridex 0.12% Liq) 15 ml BID@08,20 MT 10/09/16 08:00 11/14/16 08:00 (Dilaudid Pf Inj) 0.5 mg Q3H PRN IV 10/11/16 12:00 11/06/16 22:30 (Dilaudid Pf Inj) 2 mg UNSCH PRN IV 10/12/16 10:45 11/03/16 15:03 (Ditropan) 2.5 mg Q8HR PO 10/14/16 14:41 11/13/16 21:46 (Lasix) 20 mg BID@,18 PO 10/18/16 18:00 Hold 10/18/16 17:13 (Tylenol) 650 mg Q4H PRN PO 10/18/16 20:15 10/30/16 20:24 (Oscal-D 250-125) 500 mg BID PO 10/23/16 21:00 11/14/16 09:42 (D50w (Vial) Inj) 25 ml UNSCH PRN IV PUSH 10/24/16 16:15 Glucagon 1 mg 1 mg UNSCH PRN OTHER 10/24/16 16:15 Fluconazole/ Sodium Chloride 200 ml @ 100 mls/hr Q24H IV 10/30/16 17:00 11/13/16 17:58 (Ambisome Inj/ D5W 150 ml Inj) 150 ml @ 75 mls/hr Q24H IV 11/01/16 15:00 11/13/16 15:56 Hydromorphone HCl 1 mg 1 mg Q3H PRN IV PUSH 11/03/16 16:00 11/14/16 09:56 (INVanz INJ/NS Inj) 100 ml @ 200 mls/hr Q24H IV 11/04/16 12:00 11/13/16 11:29 (Xarelto) 15 mg DAILY PO 11/08/16 09:00 11/14/16 09:42 (Questran Light Pkt) 4 gm Q12HR PO 11/10/16 11:45 11/14/16 09:42 (Inderal) 40 mg Q12HR PO 11/10/16 14:30 11/14/16 09:43 (KCl 40 Meq/30 ml Liq) 40 meq DAILY PO 11/10/16 14:30 11/14/16 09:41 (Lomotil 2.5-0.025 Mg Liq) 5 ml BID PO 11/10/16 21:00 11/14/16 09:43 (Remeron Soltab Odt) 30 mg HS PO 11/12/16 21:00 11/13/16 22:07 Date of Insertion: Jun 20, 2016 Side: Left A/P Problem List: (1) Septic shock ICD Code: A41.9 Status: Resolved (2) Acute hypoxemic respiratory failure ICD Code: J96.01 Status: Resolved (3) Ischemic colitis ICD Code: K55.9 Status: Resolved (4) COPD (chronic obstructive pulmonary disease) ICD Code: J44.9 Status: Chronic (5) depression Status: Chronic (6) Peripheral neuropathy ICD Code: G62.9 Status: Chronic (7) Chronic diastolic (congestive) heart failure ICD Code: I50.32 Status: Chronic (8) ZIA (acute kidney injury) ICD Code: N17.9 Status: Resolved (9) emergent Ex Lap for ischemic bowel/perforation 10/08/16 Status: Acute (10) Acute blood loss anemia ICD Code: D62 Status: Acute Assessment and Plan Ms. Wilson is a pleasant 71 year old female who was admitted to the hospital in Oct 2015 due to ischemic bowel and subsequently underwent resection of large , small bowel and cholecystectomy. 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 Patient was discharged to SNF but returned to the hospital due to post surgical complications. She underwent left foot amputation and subsequently had a lot of post surgical complications requiring wound vac. Her surgeon (Dr. Olvera) determined that patient was too high risk for further surgical intervention. Patient was on TPN and after discussing with Dr. Hill we switched patient to PO diet. Based on patient's desires, we spoke to Dr. Hill regarding a second surgical opinion. Dr. Hill was kind enough to consult Dr. Grajeda who evaluated patient on 10/07/2016. On 10/08/2016, patient was transferred to the main campus after she complained of severe abdominal pain and CT scan showed ischemic bowel. Due to septic shock, patient was started on vancomycin and Cefepime prior to transfer. Septic shock/ Ischemic colitis S/p Ex lap, resection of anterior abdominal wall fistula tract, resection of transverse colon to small bowel anastomosis, right sided ileostomy, left sided mucous fistula and partial removal of a ventral hernia mesh 10/08/16. Has fungemia. Port and central line were removed. Chest abscess cultures positive for yeast. - follow up with surgery. - Echocardiogram cannot rule out vegetation. May need transesophageal echo, will defer to infectious disease. - cont ertapenem for ESBL + Kleb pneumo thru 11/16. - continue fluconazole and amphotericin B. Monitor BMP, MG and phos while on AMB - PT/OT. Malnutrition S/t bowel surgery. On TPN. Has a lot of stool output. Improved on Lomotil. - encourage PO intake. - follow up with dietary. - continue TPN. - GI consult appreciated. Trial of Lomotil. - continue Cholestiramine, Patient should not be started on gattex unless she can continue with it after discharge. - COPD/ Acute hypoxemic respiratory failure S/p extubation on 10/10/2016. - Continue bronchodilators, incentive spirometry. - On O2 3liters nasal canula on 11/13 Acute blood loss anemia S/p 4 units of PRBCs on 10/08/2016. Hemoglobin continues to be stable. - Monitor as necessary. Diabetes mellitus On TPN. Glucose well controlled 11/13 - Continue sliding scale. Tremors Ongoing for the past year. - trial of propranolol. Improved. - will need neuro work-up as an outpt. Delirium The pt endorses intermittent confusion. - frequent reorientation. - treat infection as above. - ST cognitive eval requested. Depression On Remeron and Celexa. - Continue Remeron - continue Celexa. PPx: Xarelto; Protonix. Prophylaxis Lovenox/PPI Jeff Carey MD Nov 14, 2016 10:28
--- NOTE | 2016-11-14 10:43 | PD.CAR.PN ---
CVT Progress Note Subjective/Hospital Course: 70-year-old female with a complex medical and surgical history of peripheral vascular disease and multiple related problems presents now status post BK amputation about a month half ago. Patient went to [facility] and apparently braced herself on the stump several times in bed in hit it against either floor or the chair not quite clear. Part of the stump opened up and at this point patient is dehiscence of skin deeper tissue seemed to be still intact. 06/16/16 Patient underwent yesterday debridement of the stump with wound VAC placement. The dehiscence is fortunately superficial involving skin and muscle in this as been debrided successfully while the rest of the tissues of bleeding and are viable. Wound VAC has been placed Cultures have been reviewed and antibiotics can be adjusted by medicine as appropriate We'll continue current care and patient should be able to go to penitentiary with a wound VAC by Sunday Patient's nutritional status is very poor with a low albumen and prealbumin level and therefore nutritional evaluation and recommendations are requested I believe the patient is not taking sufficient by mouth in the penitentiary and may need supplemental enteral or parenteral feedings at this point 06/17/16 I reviewed the nutritional parameters and patient's prealbumin and transferrin levels a critically low indicating severe malnutrition. Patient's healing is impaired and so is the rehabilitative potential. After reviewing to nutritional recommendations once these are made, we will decide whether patient needs an [id number]-[id number] placed for additional parenteral nutrition for short bowel syndrome Stump is nice and clean with minimal drainage from the wound VAC 06/19/16 Still awaiting nutritional consult and evaluation for patient has short gut syndrome and will probably need additional parenteral feedings. If so patient will need [id number] placement for additional feedings Patient is taking excellent by mouth but despite that her nutritional status is poor and hence the healing issues Left BKA stump incision is clean and wound VAC is in place with minimal drainage and will need to be changed today Awaiting wound care to change the wound VAC. Infectious disease help is much appreciated 06/20/2016 Patient doing well at this time. Stump is clean and the wound VAC will be changed today Patient had [id number] placed by radiology for supplemental parenteral feedings. Grateful for the nutritional evaluation. Patient will be placed on TPN at about the 1500 non-protein calories a day split about 60-70% in glucose and about 30% in form of lipids Patient will likely have to be discharged on supplemental TPN in face of her short bowel syndrome 06/21/16 Patient is doing really well at this time She's taking good by mouth diet. 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 There is some granulation tissue which may eventually need to be debrided but at this point I would leave it alone. Stump wound VAC has been changed and this is clean and granulating nicely. Patient is currently on TPN which tolerating well. In face of her short bowel syndrome patient will need TPN after discharge from the hospital. Grateful to case management for making arrangements for the same 06/22/16 Vital signs stable patient is doing well. Her appetite has improved and patient is taking good by mouth diet and having regular bowel movements. The abdominal incision is completely healed and fistula has completely resolved. The BKA wound VAC has been changed and wound is clean and granulating nicely. Vbhlgl-u-[id number] is being used for additional parenteral feedings necessary and short bowel syndrome and patient will be discharged on TPN. 06/23/16 Patient underwent today change of the wound VAC and the wound is clean. Next with will be the last wound VAC change and after that I plan to take the patient to the OR for irrigation and closure of the wound by the middle of the next week. 06/24/16 Patient doing very well at this time she is in a good mood and taking by mouth diet well Unfortunately due to the short bowel syndrome she need supplemental TPN feedings at this time Stump is healed nicely there is a small scab anterior to it and this should allow to fall off on its own Once the arrangements are made for outpatient TPN patient will be able to be discharged Awaiting case management to make the arrangements for outpatient TPN 06/25/16 Vital signs stable Patient is awake and alert and oriented, taking by mouth diet very well Abdomen is soft and the colocutaneous fistula is completely closed The BKA stump has an eschar and a scab but I would leave this alone because underneath its healing nicely. Patient remains on TPN considering the short gut syndrome and will go home on the same Mild anemia is dilutional due to TPN administration and intravenous fluids and does not require therapy at this time 06/26/16 Vital signs stable Patient is awake and alert and oriented, taking by mouth diet very well Abdomen is soft and the colocutaneous fistula is completely closed The BKA stump has an eschar and a scab but I would leave this alone because underneath its healing nicely. Patient remains on TPN considering the short gut syndrome and will go home on the same Mild anemia is dilutional due to TPN administration and intravenous fluids and does not require therapy at this time 06/27/16 Wound VAC has been removed by me and the the entire stump is healed very nicely except a small area but an inch length at the very lateral portion of the incision were we going to put a very small wound VAC on for another week or so. Patient can transfer to rehabilitation at any time as long as she can get intravenous TPN in the process 06/28/16 Wound VAC has been removed by me and the the entire stump is healed very nicely except a small area but an inch length at the very lateral portion of the incision were we going to put a very small wound VAC on for another week or so. Patient can transfer to rehabilitation at any time as long as she can get intravenous TPN Patient will need terminal carman TPN considering short gut syndrome and this can be done either in a penitentiary or at home I suspect this will be about a six-month process and after that patient may not need additional feedings if we can get her in a reasonable nutritional status in the meantime. I understand the difficulty this creates for case management to find her such an arrangement 06/29/16 Patient doing really well at this time taking good by mouth but due to the short bowel syndrome will require long-term TPN Stump is healing really nicely and the probably after this week we will remove the wound VAC and simply place wet-to-dry dressing and allow this to heal 06/30/16 Patient is doing well tolerates diet. Abdomen is soft with active bowel sounds Incisions are clean and dry Wound VAC last change will be next week and after that we going to remove the wound VAC and continue wet-to-dry dressing Stump is healing really nicely Due to TPN and other issues placement remains a problem 07/01/16 Abdomen soft and active bowel sounds Tolerates diet well Stump is clean and dry and I'll remove the wound VAC on Sunday after that patient will just be on wet-to-dry dressings until the stump heels Arrangements for discharge to difficult due to long-term TPN needs 07/03/16 Vital signs stable Stump is clean and wound VAC after next removal won't need to be applied again Patient will remain long-term on TPN and I'm waiting for case management to make discharge arrangements Will [facility] medicine kindly if patient can be transferred to medicine service at this time 07/14/16 Patient is a placement issue apparently is still in the hospital The left BKA stump is healed nicely except for very small air about 1 cm which is granulating in on the lateral aspect of the stump Apparently the enterocutaneous fistula was close for about month and a half and opened up 2 days ago draining some stool It should be noted that the bowel is quite close to the skin and patient is very thin and malnourished so it is not surprising that fistula opens and closes sporadically. With enteral and parenteral nutrition that should close but clearly patient is very frail and it could open up any time Nothing to add to care at this time 07/26/16 Discussed the patient with medical attending. She has systemic cutaneous herpes zoster and is on appropriate medications The drainage from anterior abdominal wall is very minimal however irritating to the skin of the abdominal wall in face of herpes and the nature of intestinal fluid. Just putting dressings will only worsen the situation so patient should be treated with the stoma and coverage of the skin. Unfortunately the colostomy material will not stick to the skin and the contents will leak underneath it. At point is best solution was due to apply Silvadene ointment daily and then dressing Patient's appetite is very poor sure refuses food and she remains on TPN although her GI tract is completely patent Her prognosis in general is for due to malnutrition short bowel syndrome and immune failure. 09/01/16 Patient seen at [facility]. Patient has tremendously improved in the last month or so. The rash she had has since disappeared I am not sure this was a herpetic rash or perhaps caused by zinc or selenium deficiency At this point patient is eating well and she is again about 15 pounds. Her short bowel syndrome as being managed adequately with improvement of by mouth intake and modification of the diet Abdomen is soft with active bowel sounds and the fistula has closed There is small amount of preperitoneal fat extruding from the abdomen incision. I debrided this at the bedside In the worse case scenario patient would have to go to the operating room to have this cauterized away and reclosed but I would certainly like to avoid this in this lady was finally recovering nicely 11/20/16 Last night patient was straining when going to bathroom and enterocutaneous fistula opened up again Patient is now draining stool over the last 24 hours. 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 She underwent several surgeries and it is a miracle that patient has survived all this. The fistulous tract has now opened and closed about 5 times since September last year when patient's first came and this is now another instance of the same. As far as the fistulous tract is concerned this patient is not a candidate for an open surgery due to malnutrition, short bowel syndrome in the anatomic considerations. Going into this abdomen with resultant multiple fistulas, damage to the remaining small bowel and likely of the patient Therefore the appropriate way to manage this as conservatively filled the fistula tracts closes again Physical examination reveals skin inferior to the fistula to be starting to get red again and irritated although it was nicely healed as stated in above note It should be noted that this is distal small bowel content and therefore fairly caustic so meticulous care has to be taken not to allow this to be in contact with the skin On my arrival one part of the fistula in the midline is covered with a colostomy bag while the stool is freely draining all over the patient's abdomen between the legs and on the bed I went into the room ostomy nurse to come with me and removed personally everything cleaned patient up with nursing assistance I said down with the distribution warehouse manager and the nurse and explained in detail how this should be covered and how the stoma should be structured in order to protect the skin Apparently large pieces of stoma skin adhesive material are not available here and let to be brought from [facility]. The same large pieces were used when patient first came to [place] and care was described in orders At this point meticulous care has to be taken in order to prevent skin damage and free leakage It is also imperative that the wound care gets involved in management of this patient 10/30/16 Patient had the spike a fever today to 101.8 White count 16,000 Abdomen is soft with active bowel sounds and ileostomy is working very well Bilateral breath sounds and no rhonchi or rales Wound VAC has been changed today and I'll look to the wound leg really looks nice and healing very nicely with good granulation tissue No signs of dehiscence I believe the fever spikes are part of the fungemia and unfortunately 30-50% of patients will develop systemic fungemia in this setting will succumb to the same despite maximum therapy Patient remains on micafungin Continue care 10/31/16 Abdomen is soft and active bowel sounds and incision is nice and granulating underneath the wound VAC Ileostomy working fine White count is coming down and patient hasn't had any fever spikes since placed on Diflucan and micafungin Unfortunately patient refuses to eat and also refuses to get out of bed Physical therapy and occupational therapy of trying to mobilize the patient but she will not cooperate She also refuses to take by mouth diet but drinks high caloric supplements at least Respiratory-gillette patient is doing well throughout the day and then 2 in the evening her sats started dropping to again improve later on Will order ABGs and perhaps do a CAT scan of the chest to assess for any effusions or any other possible causes for this Again patient is very ill with fungemia which carries high mortality and ICU patient's especially with immunosuppression accompanying the clinical picture 08/22/17 I today patient is doing okay She doesn't want to take any by mouth diet except high caloric supplements Abdomen is soft active bowel sounds ileostomy and colostomy clean and midline wound is healing nicely with a the wound VAC Bilateral breath sounds decreased over the both lung chaney consistent with bilateral pulmonary consolidation unlikely mu onset lower lobe pneumonia Patient is unwilling to get out of bed and does not participate in physical occupational therapy rather chased some out of the room Discussed the care with her forensic audit expert Mrs. 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 Currently on amphotericin B and antibiotics Patient is refusing any by mouth diet and is refusing to get out of bed She will developed pneumonia and and up on the respirator again if she continues to refuse activity Midline incision wound VAC has been changed and appears to be clean and granulating nicely 11/07/16 Patient somewhat improved awake alert and oriented White count has normalized Abdomen is soft with active bowel sounds ileostomy working fine Midline incision is healing very well Patient refuses take by mouth diet except for occasional bites of something and ensure Nothing to add to care 11/08/16 Abdominal incision is clean and wound VAC is in place be changed tomorrow Ileostomy working fine Patient taking by mouth however refuses regular diet and only drinks fluids Remains afebrile at this time and infection seem to be under control Very hard to manage as far as physical therapy is concerned because patient refuses to get out of bed or participate in any therapy Have tried to explain to her the importance of physical therapy in order to get her back on her feet regain strength and mobilize as well as as a means to prevent pneumonia but patient will not get out of bed 11/13/16 Ileostomy is nice and clean working fine Unfortunately ileostomy bag got disconnected and the fluid leaked into the midline incision secondary closure site Therefore the wound VAC have to be removed wound washed and replaced It's quite difficult to protect the wounds in this situation where patient's abdomen so tiny that all the structures a sort of in close proximity I've discussed this with the wound care nurse and she was kind to change her wound VAC today Patient finally at half of her breakfast and half of her lunch today which is actually an improvement and I am happy that patient is eating more 11/14/16 All studies have normalized and cultures remain negative Patient started to take little more by mouth Abdomen is soft and ileostomy is working well The colostomy bag broke open yesterday and everything contents spilled over the midline incision according to the nurse At this point patient clearly does not need a wound VAC other than for the purposes of protecting the incision for the ileostomy and colostomy bag are leaking each time these are attached to the patient for some reason, so the only way to protect the wound at this time is with wound VAC Other than that wound is healing nicely Mac I would prefer patient not to have the wound VAC and the colostomy back to be properly applied rather than leaking every time Objective: Vital Signs Date Time Temp Pulse Resp B/P Pulse Ox O2 Delivery O2 Flow Rate FiO2 11/14/16 08:00 97.6 81 16 113/69 94 11/14/16 00:00 96.8 72 18 124/60 95 11/13/16 20:00 97.1 77 18 136/63 95 11/13/16 16:00 95.1 73 17 115/64 98 11/13/16 12:00 97.1 75 18 121/62 95 Result Diagram: 11/10/16 0620 11/12/16 0500 Janice Olvera MD Nov 14, 2016 10:43
[2016-11-14 12:00] VITALS: BP 119/57; PULSE 78; RESP 16; TEMP 96.5; O2SAT 98
[2016-11-14] MEDS: ERTAPENEM INJ 1,000 MG in SODIUM CHLORIDE 0.9% INJ 100 ML IV SCH (13:00)
[2016-11-14 13:22] LABS: AUTOMATED NEUTROPHIL # 3.1 TH/MM3 (1.8-7.7); BASOPHIL # 0.1 TH/MM3 (0-0.2); BASOPHIL % 0.9 % (0.0-2.0); EOSINOPHIL # 0.8 TH/MM3 (0-0.4); EOSINOPHIL % 9.8 % (0.0-4.0); HEMATOCRIT 29.1 % (35.0-46.0); HEMO FLAGS DIFF FINAL; LYMPH % 42.8 % (9.0-44.0); LYMPHOCYTE # 3.5 TH/MM3 (1.0-4.8); MEAN CELL VOLUME 88.3 FL (80.0-100.0); MEAN CORPUSCULAR HEMOGLOBIN 29.2 PG (27.0-34.0); MEAN CORPUSCULAR HGB CONC 33.1 % (32.0-36.0); MONO % 9.4 % (0.0-8.0); NEUT % 37.1 % (16.0-70.0); PLATELET COUNT 402 TH/MM3 (150-450); RED CELL DISTRIBUTION WIDTH 18.7 % (11.6-17.2); WHITE BLOOD COUNT 8.3 TH/MM3 (4.0-11.0)
[2016-11-14 14:09] LABS: BICARBONATE 37.1 MEQ/L (21.0-32.0); CALCIUM-PROTEIN CORRECTED 11.1 MG/DL (8.5-10.1); MAGNESIUM 2.4 MG/DL (1.5-2.5); POTASSIUM 3.3 MEQ/L (3.5-5.1); TOTAL BILIRUBIN ADULT 0.5 MG/DL (0.2-1.0)
--- NOTE | 2016-11-14 14:11 | HHI.PR ---
Subjective Remarks Patient states that she does not feel good, c/o nausea but denies vomiting her o2sat dropped to 94% earlier today - patient on # liters nasal canula denies cp/sob denies abdominal pain denies fevers/chills denies cough Objective Vitals Vital Signs Date Time Temp Pulse Resp B/P Pulse Ox O2 Delivery O2 Flow Rate FiO2 11/14/16 10:52 Nasal Cannula 3.00 11/14/16 08:00 97.6 81 16 113/69 94 11/14/16 00:00 96.8 72 18 124/60 95 11/13/16 20:00 97.1 77 18 136/63 95 11/13/16 16:00 95.1 73 17 115/64 98 I/O 11/13/16 11/13/16 11/13/16 11/14/16 11/14/16 11/14/16 07:00 15:00 23:00 07:00 15:00 23:00 Intake Total 926 ml 400 ml 1020 ml 736 ml Output Total 1050 ml 970 ml 300 ml 1200 ml Balance -124 ml -570 ml 720 ml -464 ml Intake Oral 440 ml 400 ml 120 ml 240 ml IV Total 450 ml 496 ml TPN/PPN 486 ml 450 ml Output Urine Total 650 ml 400 ml 300 ml 700 ml Stool Total 400 ml 570 ml 500 ml Drainage Total 0 ml 0 ml 0 ml 0 ml # Bowel Movements 0 Result Diagram: 11/14/16 1300 11/12/16 0500 Imaging Last Impressions PICC Line Insertion 11/10/16 0000 Signed Impressions: Service Date/Time: Thursday, November 10, 2016 17:07 - CONCLUSION: 1. Uncomplicated central venous Power PICC line placement. 2. The PICC line can be used immediately. Garrison Pascual MD Chest X-Ray 11/03/16 0000 Signed Impressions: Service Date/Time: Thursday, November 03, 2016 15:03 - CONCLUSION: Subclavian central venous catheter which is in good position. No evidence of pneumothorax. Improving lung aeration with decreasing congestion and bibasilar airspace disease. Kendall Lara MD Abdomen CT 11/01/16 0000 Signed Impressions: Service Date/Time: October 15:20 - CONCLUSION: No abnormalities are seen with respect to the liver or spleen. Previously noted small fluid collections adjacent to the small bowel loops within the right lower quadrant are no longer present. The configuration of the small bowel loops adjacent to the intra-abdominal wall at the site of mesh repair are consistent with areas of adhesion. No evidence of bowel obstruction.. Hoda Ash MD Abdomen/Pelvis CT 10/19/16 0000 Signed Impressions: Service Date/Time: September 15:10 - CONCLUSION: 1. There are 2 small rim-enhancing fluid collections in the right mid abdomen adjacent to the distal ileum that extends into the ileostomy. These measure 2.6 x 1.3 cm and 2.1 x 1.6 cm. These could represent infected fluid collections but are too small to place a drainage catheter. There is an additional small subcapsular fluid collection along the anterior left lobe of the liver. 2. Additionally, there is wall thickening of the distal ileal loops along with marked mesenteric edema. 3. There is a small volume of free fluid in the left upper quadrant around the spleen and in the pelvis. 4. There is a new small left pleural effusion with compressive atelectasis and right lower lobe volume loss versus airspace consolidation. Calixto Uriostegui MD Liver Ultrasound 07/12/16 0000 Signed Impressions: Service Date/Time: Tuesday, July 12, 2016 18:07 - CONCLUSION: 1. No acute abnormality demonstrated. 2. Heterogeneous liver without measurable mass. 3. Small and heterogeneous spleen without a measurable mass. 4. Cortical thinning and scarring of the right kidney. 5. Previous cholecystectomy. Calixto Woodruff MD Chest CT 07/09/16 0000 Signed Impressions: Service Date/Time: Saturday, July 09, 2016 14:43 - CONCLUSION: 1. Small right pleural effusion and minimal right basilar consolidation. 2. 6 mm left basilar nodule. Followup CT chest 6 months recommended. Florian Pepper MD Lower Extremity Ultrasound 06/25/16 0000 Signed Impressions: Service Date/Time: Saturday, June 25, 2016 15:56 - CONCLUSION: Negative exam with no evidence of deep venous thrombosis. Soft tissue edema. Mike Leija MD Port Line Insertion 06/20/16 0000 Signed Impressions: Service Date/Time: Monday, June 20, 2016 08:53 - CONCLUSION: Uncomplicated ultrasound and fluoroscopic guided implanted central venous port catheter placement as described in detail above. An 8 Greek Power port was placed. Kevan Salgado Jr., MD Objective Remarks GENERAL: Lying in bed. Awake, alert. Appears comfortable. SKIN: Warm and dry. HEAD: Normocephalic. EYES: No scleral icterus. No injection or drainage. NECK: Supple, trachea midline. No JVD. CARDIOVASCULAR: Regular rate and rhythm without murmurs, gallops or rubs. RESPIRATORY: Breath sounds equal bilaterally. No accessory muscle use. GASTROINTESTINAL: right-sided fistula with green/brown liquid stool, as before. Left-sided fistula with no significant output. No rebound or guarding. Wound VAC in midline incision. MUSCULOSKELETAL: No cyanosis, or edema. BACK: Nontender without obvious deformity. No CVA tenderness. NEURO: Tremors noted. PSYCH: Slightly flattened affect. Procedures Left stump debridement by Dr. Hill on 06/15/16 Bedside debridement of preperitoneal fat that was protruding from the abdominal fistula 09/01/16 central line placement Exploratory laparotomy, resection of the anterior abdominal wall fistula tract, resection of the transverse colon to small bowel anastomosis, lysis of adhesions of the small bowel with repair of two enterotomies, right-sided ileostomy, left-sided mucous fistula and partial removal of a ventral hernia mesh. Medications and IVs Current Medications Medications (Trade) Dose Ordered Sig/Shira Route Start Time Stop Time Status Last Admin (Rocaltrol) 0.25 mcg DAILY PO 06/15/16 09:00 11/14/16 09:42 (Ferrous Sulfate) 325 mg DAILY PO 06/15/16 09:00 11/14/16 09:42 (Pill Splitter) 1 ea UNSCH PRN OTHER 06/14/16 18:00 (Heparin Central Flush) 500 units UNSCH IVF 06/20/16 11:30 10/06/16 12:24 (NS Flush) 5 ml UNSCH PRN IVF 06/20/16 11:30 11/10/16 05:40 (Heparin Central Flush) 250 units UNSCH PRN IVF 06/20/16 11:30 07/26/16 14:54 (Mag-Al Plus Susp Liq) 30 ml Q6H PRN PO 07/09/16 16:45 09/28/16 21:39 (Tylenol) 650 mg Q4H PRN PO 07/11/16 05:45 11/08/16 06:20 (Mycostatin Powder) 1 applic Q12HR TOPICAL 07/11/16 12:00 11/14/16 09:00 (Desitin 40% Oint) 1 applic UNSCH PRN TOPICAL 08/13/16 14:15 10/29/16 10:26 (Zinc Sulfate) 220 mg DAILY PO 09/04/16 09:00 11/14/16 09:43 (Cymbalta Dr) 30 mg DAILY PO 09/14/16 09:00 11/14/16 09:42 (Cardizem Cd) 240 mg DAILY PO 09/16/16 09:00 Hold 10/18/16 08:04 Gabapentin 300 mg 300 mg TID PO 10/06/16 13:00 Hold 10/09/16 13:39 Fat Emulsion Intravenous 250 ml @ 31.25 mls/ hr SuWe@20 IV-CENTRAL 10/08/16 20:00 11/12/16 21:09 (Mvi-12 Inj/ Folvite Inj/ Clinimix E 03/15) 2,010.2 ml @ 60 mls/hr Q24H IV-CENTRAL 10/08/16 20:00 11/13/16 20:00 (Zofran Inj) 4 mg Q6HR PRN IV PUSH 10/08/16 12:00 11/14/16 09:55 (NS Flush) 2 ml UNSCH PRN IVF 10/08/16 14:45 11/14/16 04:17 (NS Flush) 2 ml BID IVF 10/08/16 21:00 11/14/16 09:00 (Narcan Inj) 0.4 mg UNSCH PRN IV 10/08/16 14:45 (Peridex 0.12% Liq) 15 ml BID@08,20 MT 10/09/16 08:00 11/14/16 08:00 (Dilaudid Pf Inj) 0.5 mg Q3H PRN IV 10/11/16 12:00 11/06/16 22:30 (Dilaudid Pf Inj) 2 mg UNSCH PRN IV 10/12/16 10:45 11/03/16 15:03 (Ditropan) 2.5 mg Q8HR PO 10/14/16 14:41 11/13/16 21:46 (Lasix) 20 mg BID@09,18 PO 10/18/16 18:00 Hold 10/18/16 17:13 (Tylenol) 650 mg Q4H PRN PO 10/18/16 20:15 10/30/16 20:24 (Oscal-D 250-125) 500 mg BID PO 10/23/16 21:00 11/14/16 09:42 (D50w (Vial) Inj) 25 ml UNSCH PRN IV PUSH 10/24/16 16:15 Glucagon 1 mg 1 mg UNSCH PRN OTHER 10/24/16 16:15 Fluconazole/ Sodium Chloride 200 ml @ 100 mls/hr Q24H IV 10/30/16 17:00 11/13/16 17:58 (Ambisome Inj/ D5W 150 ml Inj) 150 ml @ 75 mls/hr Q24H IV 11/01/16 15:00 11/13/16 15:56 Hydromorphone HCl 1 mg 1 mg Q3H PRN IV PUSH 11/03/16 16:00 11/14/16 09:56 (INVanz INJ/NS Inj) 100 ml @ 200 mls/hr Q24H IV 11/04/16 12:00 11/14/16 13:00 (Xarelto) 15 mg DAILY PO 11/08/16 09:00 11/14/16 09:42 (Questran Light Pkt) 4 gm Q12HR PO 11/10/16 11:45 11/14/16 09:42 (Inderal) 40 mg Q12HR PO 11/10/16 14:30 11/14/16 09:43 (KCl 40 Meq/30 ml Liq) 40 meq DAILY PO 11/10/16 14:30 11/14/16 09:41 (Lomotil 2.5-0.025 Mg Liq) 5 ml BID PO 11/10/16 21:00 11/14/16 09:43 (Remeron Soltab Odt) 30 mg HS PO 11/12/16 21:00 11/13/16 22:07 Urinary Catheter: No Vascular Central Line Catheter: No Date of Insertion: Jun 20, 2016 Side: Left A/P Problem List: (1) Septic shock ICD Code: A41.9 Status: Resolved (2) Acute hypoxemic respiratory failure ICD Code: J96.01 Status: Resolved (3) Ischemic colitis ICD Code: K55.9 Status: Resolved (4) COPD (chronic obstructive pulmonary disease) ICD Code: J44.9 Status: Chronic (5) depression Status: Chronic (6) Peripheral neuropathy ICD Code: G62.9 Status: Chronic (7) Chronic diastolic (congestive) heart failure ICD Code: I50.32 Status: Chronic (8) ZIA (acute kidney injury) ICD Code: N17.9 Status: Resolved (9) emergent Ex Lap for ischemic bowel/perforation 10/08/16 Status: Resolved (10) Acute blood loss anemia ICD Code: D62 Status: Resolved Assessment and Plan Ms. Wilson is a pleasant 71 year old female who was admitted to the hospital in Oct 2015 due to ischemic bowel and subsequently underwent resection of large , small bowel and cholecystectomy. 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 Patient was discharged to SNF but returned to the hospital due to post surgical complications. She underwent left foot amputation and subsequently had a lot of post surgical complications requiring wound vac. Her surgeon (Dr. Olvera) determined that patient was too high risk for further surgical intervention. Patient was on TPN and after discussing with Dr. Hill we switched patient to PO diet. Based on patient's desires, we spoke to Dr. Hill regarding a second surgical opinion. Dr. Hill was kind enough to consult Dr. Grajeda who evaluated patient on 10/07/2016. On 10/08/2016, patient was transferred to the [facility] after she complained of severe abdominal pain and CT scan showed ischemic bowel. Due to septic shock, patient was started on vancomycin and Cefepime prior to transfer. Septic shock/ Ischemic colitis S/p Ex lap, resection of anterior abdominal wall fistula tract, resection of transverse colon to small bowel anastomosis, right sided ileostomy, left sided mucous fistula and partial removal of a ventral hernia mesh 10/08/16. Has fungemia. Port and central line were removed. Chest abscess cultures positive for yeast. - follow up with surgery. - Echocardiogram cannot rule out vegetation. May need transesophageal echo, will defer to infectious disease. - cont ertapenem for ESBL + Kleb pneumo thru 11/16. - continue fluconazole and amphotericin B. Monitor BMP, MG and phos while on AMB - PT/OT. - The colostomy bag broke open yesterday and everything contents spilled over the midline incision according to the nurse. as per surgery the patient does not need a wound VAC other than for the purposes of protecting the incision for the ileostomy and colostomy bag are leaking each time these are attached to the patient for some reason, so the only way to protect the wound at this time is with wound VAC, Other than that wound is healing nicely Malnutrition S/t bowel surgery. On TPN. Has a lot of stool output. Improved on Lomotil. - encourage PO intake. - follow up with dietary. - continue TPN. - GI consult appreciated. Trial of Lomotil. - continue Cholestiramine, Patient should not be started on gattex unless she can continue with it after discharge. - COPD/ Acute hypoxemic respiratory failure S/p extubation on 10/10/2016. - now resolved - Continue bronchodilators, incentive spirometry. - On O2 3liters nasal canula on 11/13 Acute blood loss anemia S/p 4 units of PRBCs on 10/08/2016. Hemoglobin continues to be stable. - Monitor as necessary. Diabetes mellitus On TPN. Glucose well controlled 11/13 - Continue sliding scale. Tremors Ongoing for the past year. - trial of propranolol. Improved. - will need neuro work-up as an outpt. Delirium The pt endorses intermittent confusion. - frequent reorientation. - treat infection as above. - ST cognitive eval ---> Severe cognitive deficit as per evaluation. Depression On Remeron and Celexa. - Continue Remeron - continue Celexa. PPx: Xarelto; Protonix. Prophylaxis Lovenox/PPI Jeff Carey MD Nov 14, 2016 14:11
[2016-11-14] MEDS: DEXTROSE 5% IV SCH ×2 (15:21)
[2016-11-14] MEDS: WATE IV SCH ×2 (15:21)
[2016-11-14] MEDS: AMPHOTERICIN B LIPOSOME IV SCH ×2 (15:21)
[2016-11-14 16:00] VITALS: BP 135/69; PULSE 79; RESP 16; TEMP 97.9; O2SAT 95
[2016-11-14] MEDS: FLUCONAZOLE 400 MG PREMIX BAG 200 ML IV SCH (17:13)
[2016-11-14 18:49] VITALS: O2SAT 95
[2016-11-14 20:00] VITALS: BP 123/62; PULSE 90; RESP 17; TEMP 95.8; O2SAT 94
[2016-11-14] MEDS: CLINIMIX E 5/25 2000 mL- >42 mls/hr IV-CENTRAL SCH ×3 (20:03)
[2016-11-14] MEDS: MIRTAZAPINE ODT 30 MG TAB PO SCH (20:05)
[2016-11-15] VITALS (7 sets, daily range): BP systolic 115–131; BP diastolic 59–64; PULSE 80–89; RESP 17; TEMP 95.6–96.4; O2SAT 95–98
[2016-11-15] MEDS: OXYBUTYNIN CHLORIDE 5 MG TAB PO SCH ×3 (05:51→21:12)
[2016-11-15] MEDS: HYDROmorphone HCL PF 1 MG/ML VIAL IV PUSH PRN ×3 (06:01→21:23)
[2016-11-15] MEDS: INSULIN ASPART SUPPLEMENTAL SCALE SQ SCH ×4 (06:19→21:23)
[2016-11-15] MEDS: POTASSIUM CL 40 MEQ/30 ML LIQ UDC PO SCH (08:17)
[2016-11-15] MEDS: DIPHENOXYLATE/ATROPINE 2.5 MG/0.025 MG/5 ML CUP PO SCH ×2 (08:17→21:13)
[2016-11-15] MEDS: CALCITRIOL 0.25 MCG CAP PO SCH (08:17)
[2016-11-15] MEDS: CALCIUM/VITAMIN D 250 MG/125 U TAB PO SCH ×2 (08:17→21:12)
[2016-11-15] MEDS: DULoxetine HCl DR 30 MG CAP PO SCH (08:17)
[2016-11-15] MEDS: PROPRANOLOL HCL 40 MG TAB PO SCH ×2 (08:17→21:12)
[2016-11-15] MEDS: CHOLESTYRAMINE LIGHT 4 GM PACKAGE PO SCH ×3 (08:17→21:12)
[2016-11-15] MEDS: FERROUS SULFATE 325 MG (65 MG ELEMENTAL IRON) TAB PO SCH (08:18)
[2016-11-15] MEDS: ZINC SULFATE 220 MG CAP PO SCH (08:18)
[2016-11-15] MEDS: RIVAROXABAN 15 MG TAB PO SCH (08:18)
[2016-11-15] MEDS: SODIUM CHLORIDE 0.9% FLUSH 5 ML FLUSH IVF SCH ×2 (08:19→21:00)
[2016-11-15 10:51] LABS: AUTOMATED NEUTROPHIL # 4.4 TH/MM3 (1.8-7.7); BASOPHIL % 0.5 % (0.0-2.0); EOSINOPHIL # 0.8 TH/MM3 (0-0.4); EOSINOPHIL % 7.6 % (0.0-4.0); HEMATOCRIT 30.8 % (35.0-46.0); HEMO FLAGS DIFF FINAL; LYMPH % 37.9 % (9.0-44.0); LYMPHOCYTE # 3.9 TH/MM3 (1.0-4.8); MEAN CELL VOLUME 87.5 FL (80.0-100.0); MEAN CORPUSCULAR HEMOGLOBIN 28.6 PG (27.0-34.0); MEAN CORPUSCULAR HGB CONC 32.8 % (32.0-36.0); MONO % 11.3 % (0.0-8.0); NEUT % 42.7 % (16.0-70.0); PLATELET COUNT 435 TH/MM3 (150-450); RED BLOOD COUNT 3.52 MIL/MM3 (4.00-5.30); RED CELL DISTRIBUTION WIDTH 18.2 % (11.6-17.2); WHITE BLOOD COUNT 10.4 TH/MM3 (4.0-11.0)
[2016-11-15 10:52] LABS: BICARBONATE 39.3 MEQ/L (21.0-32.0); CALCIUM-PROTEIN CORRECTED 11.4 MG/DL (8.5-10.1); MAGNESIUM 2.5 MG/DL (1.5-2.5); POTASSIUM 3.6 MEQ/L (3.5-5.1); TOTAL BILIRUBIN ADULT 0.6 MG/DL (0.2-1.0)
[2016-11-15] MEDS: ERTAPENEM INJ 1,000 MG in SODIUM CHLORIDE 0.9% INJ 100 ML IV SCH (11:34)
--- NOTE | 2016-11-15 13:17 | HHI.GIFU ---
Subjective Remarks Resting in bed. Not much appetite, states she is thirsty, but not hungry and not eating much. Stool output slowing down. Objective Vitals I&O Vital Signs Date Time Temp Pulse Resp B/P Pulse Ox O2 Delivery O2 Flow Rate FiO2 11/15/16 12:00 96.3 82 17 119/60 96 11/15/16 08:15 Nasal Cannula 2.00 11/15/16 08:00 96.4 89 17 131/60 95 11/15/16 00:00 96.0 87 17 119/61 95 11/14/16 20:00 95.8 90 17 123/62 94 11/14/16 20:00 Nasal Cannula 2.00 11/14/16 18:49 95 Nasal Cannula 3.00 11/14/16 16:00 97.9 79 16 135/69 95 I/O 11/14/16 11/14/16 11/14/16 11/15/16 11/15/16 11/15/16 07:00 15:00 23:00 07:00 15:00 23:00 Intake Total 736 ml 360 ml 480 ml 893 ml Output Total 1200 ml 400 ml 300 ml 650 ml Balance -464 ml -40 ml 180 ml 243 ml Intake Oral 240 ml 360 ml 480 ml 240 ml IV Total 496 ml 653 ml Output Urine Total 700 ml 300 ml 300 ml 650 ml Stool Total 500 ml 100 ml Drainage Total 0 ml 0 ml Laboratory Laboratory Tests Test 11/15/16 11/15/16 05:55 10:10 White Blood Count 10.4 Red Blood Count 3.52 Hemoglobin 10.1 Hematocrit 30.8 Mean Corpuscular Volume 87.5 Mean Corpuscular Hemoglobin 28.6 Mean Corpuscular Hemoglobin 32.8 Concent Red Cell Distribution Width 18.2 Platelet Count 435 Mean Platelet Volume 8.5 Neutrophils (%) (Auto) 42.7 Lymphocytes (%) (Auto) 37.9 Monocytes (%) (Auto) 11.3 Eosinophils (%) (Auto) 7.6 Basophils (%) (Auto) 0.5 Neutrophils # (Auto) 4.4 Lymphocytes # (Auto) 3.9 Monocytes # (Auto) 1.2 Eosinophils # (Auto) 0.8 Basophils # (Auto) 0.0 CBC Comment DIFF FINAL Differential Comment Hematology Comments Sodium Level 141 Potassium Level 3.6 Chloride Level 98 Carbon Dioxide Level 39.3 Anion Gap 4 Blood Urea Nitrogen 50 Creatinine 1.55 Estimat Glomerular Filtration 33 Rate Random Glucose 83 Calcium Level 12.3 Protein Corrected Calcium 11.4 Phosphorus Level 5.2 Magnesium Level 2.5 Total Bilirubin 0.6 Aspartate Amino Transf 38 (AST/SGOT) Alanine Aminotransferase 27 (ALT/SGPT) Alkaline Phosphatase 294 Total Protein 8.4 Albumin 2.1 Imaging Last Impressions PICC Line Insertion 11/10/16 0000 Signed Impressions: Service Date/Time: Thursday, November 10, 2016 17:07 - CONCLUSION: 1. Uncomplicated central venous Power PICC line placement. 2. The PICC line can be used immediately. Garrison Pascual MD Chest X-Ray 11/03/16 0000 Signed Impressions: Service Date/Time: Thursday, November 03, 2016 15:03 - CONCLUSION: Subclavian central venous catheter which is in good position. No evidence of pneumothorax. Improving lung aeration with decreasing congestion and bibasilar airspace disease. Kendall Lara MD Abdomen CT 11/01/16 0000 Signed Impressions: Service Date/Time: October 15:20 - CONCLUSION: No abnormalities are seen with respect to the liver or spleen. Previously noted small fluid collections adjacent to the small bowel loops within the right lower quadrant are no longer present. The configuration of the small bowel loops adjacent to the intra-abdominal wall at the site of mesh repair are consistent with areas of adhesion. No evidence of bowel obstruction.. Hoda Ash MD Abdomen/Pelvis CT 10/19/16 0000 Signed Impressions: Service Date/Time: September 15:10 - CONCLUSION: 1. There are 2 small rim-enhancing fluid collections in the right mid abdomen adjacent to the distal ileum that extends into the ileostomy. These measure 2.6 x 1.3 cm and 2.1 x 1.6 cm. These could represent infected fluid collections but are too small to place a drainage catheter. There is an additional small subcapsular fluid collection along the anterior left lobe of the liver. 2. Additionally, there is wall thickening of the distal ileal loops along with marked mesenteric edema. 3. There is a small volume of free fluid in the left upper quadrant around the spleen and in the pelvis. 4. There is a new small left pleural effusion with compressive atelectasis and right lower lobe volume loss versus airspace consolidation. Calixto Uriostegui MD Liver Ultrasound 07/12/16 0000 Signed Impressions: Service Date/Time: Tuesday, July 12, 2016 18:07 - CONCLUSION: 1. No acute abnormality demonstrated. 2. Heterogeneous liver without measurable mass. 3. Small and heterogeneous spleen without a measurable mass. 4. Cortical thinning and scarring of the right kidney. 5. Previous cholecystectomy. Calixto Woodruff MD Chest CT 07/09/16 Signed Impressions: Service Date/Time: Saturday, July 09, 2016 14:43 - CONCLUSION: 1. Small right pleural effusion and minimal right basilar consolidation. 2. 6 mm left basilar nodule. Followup CT chest 6 months recommended. Florian Pepper MD Lower Extremity Ultrasound 06/25/16 Signed Impressions: Service Date/Time: Saturday, June 25, 2016 15:56 - CONCLUSION: Negative exam with no evidence of deep venous thrombosis. Soft tissue edema. Mike Leija MD Port Line Insertion 06/20/16 Signed Impressions: Service Date/Time: Monday, June 20, 2016 08:53 - CONCLUSION: Uncomplicated ultrasound and fluoroscopic guided implanted central venous port catheter placement as described in detail above. An 8 Irish Power port was placed. Kevan Salgado Jr., MD Physical Exam HEENT: Normocephalic; atraumatic; no jaundice. CHEST: Resp. even/unlabored. CARDIAC: RRR ABDOMEN: Soft, nondistended, tender; Ileostomy with small amount of greenish semi formed stool. Left sided colostomy with small amount of brown stool. Midline abdominal wound with wound vac. Small amount of redness surrounding midline incision. EXTREMITIES: Left BKA. Tender right foot SKIN: Generalized pallor DETECTIVE [employer]ENA[employer]: Very lethargic. Assessment and Plan Plan ASSESSMENT: - Short gut syndrome with high stool output. 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 This was then complicated by development of enterocutaneous fistula, which she then underwent exploratory laparotomy with resection of the segment of the large bowel containing the anastomosis to the small bowel and the fistula, end ileostomy and mucous fistula colostomy creation and removal of segments of ventral hernia mesh placed at some point many years in the past. She has a wound vac to her midline abdominal wound. She has high stool output from the ileostomy, with 1850cc-5850cc of stool output daily. Stool studies negative. She is on TPN. GI was consulted for evaluation for possible Gattex. This would be a good option, but is very expensive, Each injection is $1,500 and the monthly cost would be $45,000 a month. It is not available at this facility and should not be initiated unless thisis something that could be continued at discharge. Spoke to Felicity in , who spoke to [facility]. Pt is a difficult placement and the plan is for her to return to [facility] and they are currently holding her bed. However, they state that they will not be able to accept her back if she requires the Gattex. She was started on trial of cholestyramine and scheduled lomotil and her output is decreasing with this. Would continue lomotil and cholestyramine for now. Monitor stool output. Plan: - Cont. TPN and JULES - Cont. Cholestyramine - Cont. Lomotil - Monitor electrolytes - Monitor stool output - Supportive care - Further recommendations to follow based on results of above - Pt seen and examined by Dr. Castañeda and myself and this note is written on her behalf Rama Kauffman Nov 15, 2016 13:17
[2016-11-15] MEDS: NYSTATIN 100,000 U/GM PWD 15 GM BTL TOPICAL SCH ×2 (13:25→21:14)
[2016-11-15] MEDS: AMPHOTERICIN B LIPOSOME IV SCH ×2 (15:06)
[2016-11-15] MEDS: DEXTROSE 5% IV SCH ×2 (15:06)
[2016-11-15] MEDS: WATE IV SCH ×2 (15:06)
--- NOTE | 2016-11-15 15:59 | HHI.HCPN ---
Reason for visit a. To assist with evaluation and management of symptoms including: Pain, anxiety, depression b. To assist medical decision maker(s) with: better understanding of current medical conditions; weighing benefits/burdens of medical treatment options; making medical treatment decisions. . Subjective/Interval History Has been transferred out of ICU. Stable on medical floor. Afebrile. No new cultures. CBC stable, unremarkable. Chemistry notable for slightly elevated BUN 50, creatinine 1.55. GFR 33. Urine output remains adequate. On scheduled Lomotil + cholestyramine per GI for short bowel syndrome ; had been considering Gattex however due to unavailable and high cost to continue outpatient this has not been added. PT still continues to follow, patient very weak with limited ability to participate. Still with poor appetite 025 percent of meals recorded. On TPN. Remains on ertapenem, fluconazole, amphotericin. Has required 2 doses prn hydromorphone today, 4 doses yesterday, generally 34 doses a day. Pt seen in room, no visitors present. MEDICAL VIDEOGRAPHER at bedside assisting with linen change and wilbert care. She is alert, mostly oriented. Some limited insight into her hospitalization. Her that she has had a prolonged hospitalization with multiple acute episodes. Ask her if she feels her conditions are better overall, she tells me that she "nearly " and that yes she does think she is better now than when she came in the hospital. Review with her discharge planning in process, she understands she will probably be placed back in long- term facility and she cannot return home, though she thinks there may be some financial limitations on her acceptance currently. I did review with her that one of those factors may have been the medication GI was considering. Explore with her her long-term hopes, goals. She becomes tearful she tells me she knows that the end will come eventually. She tells me that she is not afraid of dying. She complains of ongoing weakness, tremor to her upper extremities and feeling as if her mind is out of sorts during her acute illness. Explore with her current status, she affirms that she would never want to go on the ventilator again. Gently explore with her her weakness, overall very frail condition or secondary to her prolonged acute illnesses. Gently explore with her that she is not likely to experience significant physical improvement due to her severely debilitated state and continued poor nutritional status. She understands she will probably continue to decline until she dies from this. It explore with her that if she reaches a point where she no longer desires aggressive interventions and invasive measures then she would certainly be appropriate for hospice and comfort measures only. I briefly review with her hospice role / philosophy. She is appropriately tearful--no changes in goals are decisions today. . Advance Directives Living Will: Completed, but not made available Health Care Surrogate: Copy in medical record Durable Power of Charge Attendant: Never completed Advance Directive Specifics Health Care Surrogate(s): Primary HCS is her close friend Anuradha Christian, and secondary is her Dwight Wilson. The HCS that is in the record here is not dated. . Objective Vital Signs Date Time Temp Pulse Resp B/P Pulse Ox O2 Delivery O2 Flow Rate FiO2 11/15/16 12:00 96.3 82 17 119/60 96 11/15/16 10:36 95 Nasal Cannula 3.00 11/15/16 08:15 Nasal Cannula 2.00 11/15/16 08:00 96.4 89 17 131/60 95 11/15/16 00:00 96.0 87 17 119/61 95 11/14/16 20:00 95.8 90 17 123/62 94 11/14/16 20:00 Nasal Cannula 2.00 11/14/16 18:49 95 Nasal Cannula 3.00 11/14/16 16:00 97.9 79 16 135/69 95 Intake & Output 11/15/16 11/15/16 07:00 19:00 Intake Total 1373 ml Output Total 950 ml Balance 423 ml Intake Oral 720 ml IV Total 653 ml Output Urine Total 950 ml Drainage Total 0 ml Physical Exam CONSTITUTIONAL/GENERAL: chronically ill appearing very weak female. Lying in her bed. SKIN: Pale. Skin temperature appropriate. Not diaphoretic. Ileostomy, colostomy is noted patent. + sloughing of some skin to fingertips. Midline abdominal incision with wound VAC dressing. CARDIOVASCULAR: Regular rate and rhythm, no murmur. No JVD. RESPIRATORY/CHEST: Symmetric, unlabored respirations on NC. Decreased air movement throughout. GASTROINTESTINAL: Soft,+tender, bowel sounds active. Ileostomy and colostomy present. + Liquid brown stool present. Midline incision with wound VAC dressing intact. MUSCULOSKELETAL: Extremities without clubbing, cyanosis, or edema. Left Stump now well healed. No mottling or clubbing. NEUROLOGICAL:awake, alert, oriented 2-3. Some limited insight to hospital course. Limited engagement. Moves all 4 extremities generalized weakness, follows commands. PSYCHIATRIC: tearful at times, otherwise no anxiety noted. . Diagnostic Tests Laboratory Laboratory Tests Test 11/14/16 11/15/16 11/15/16 13:00 05:55 10:10 White Blood Count 8.3 TH/MM3 TH/MM3 10.4 TH/MM3 (4.0-11.0) (4.0-11.0) (4.0-11.0) Red Blood Count 3.30 MIL/MM3 MIL/MM3 3.52 MIL/MM3 (4.00-5.30) (4.00-5.30) (4.00-5.30) Hemoglobin 9.6 GM/DL GM/DL 10.1 GM/DL (11.6-15.3) (11.6-15.3) (11.6-15.3) Hematocrit 29.1 % % (35.0-46.0) 30.8 % (35.0-46.0) (35.0-46.0) Mean Corpuscular Volume 88.3 FL FL 87.5 FL (80.0-100.0) (80.0-100.0) (80.0-100.0) Mean Corpuscular Hemoglobin 29.2 PG PG (27.0-34.0) 28.6 PG (27.0-34.0) (27.0-34.0) Mean Corpuscular Hemoglobin 33.1 % % (32.0-36.0) 32.8 % Concent (32.0-36.0) (32.0-36.0) Red Cell Distribution Width 18.7 % % (11.6-17.2) 18.2 % (11.6-17.2) (11.6-17.2) Platelet Count 402 TH/MM3 TH/MM3 435 TH/MM3 (150-450) (150-450) (150-450) Mean Platelet Volume 8.7 FL FL (7.0-11.0) 8.5 FL (7.0-11.0) (7.0-11.0) Neutrophils (%) (Auto) 37.1 % % (16.0-70.0) 42.7 % (16.0-70.0) (16.0-70.0) Lymphocytes (%) (Auto) 42.8 % % (9.0-44.0) 37.9 % (9.0-44.0) (9.0-44.0) Monocytes (%) (Auto) 9.4 % (0.0-8.0) % (0.0-8.0) 11.3 % (0.0-8.0) Eosinophils (%) (Auto) 9.8 % (0.0-4.0) % (0.0-4.0) 7.6 % (0.0-4.0) Basophils (%) (Auto) 0.9 % (0.0-2.0) % (0.0-2.0) 0.5 % (0.0-2.0) Neutrophils # (Auto) 3.1 TH/MM3 TH/MM3 4.4 TH/MM3 (1.8-7.7) (1.8-7.7) (1.8-7.7) Lymphocytes # (Auto) 3.5 TH/MM3 TH/MM3 3.9 TH/MM3 (1.0-4.8) (1.0-4.8) (1.0-4.8) Monocytes # (Auto) 0.8 TH/MM3 TH/MM3 (0-0.9) 1.2 TH/MM3 (0-0.9) (0-0.9) Eosinophils # (Auto) 0.8 TH/MM3 TH/MM3 (0-0.4) 0.8 TH/MM3 (0-0.4) (0-0.4) Basophils # (Auto) 0.1 TH/MM3 TH/MM3 (0-0.2) 0.0 TH/MM3 (0-0.2) (0-0.2) CBC Comment DIFF FINAL DIFF FINAL Differential Comment Sodium Level 141 MEQ/L 141 MEQ/L (136-145) (136-145) Potassium Level 3.3 MEQ/L 3.6 MEQ/L (3.5-5.1) (3.5-5.1) Chloride Level 98 MEQ/L 98 MEQ/L (98-107) (98-107) Carbon Dioxide Level 37.1 MEQ/L 39.3 MEQ/L (21.0-32.0) (21.0-32.0) Anion Gap 6 MEQ/L (5-15) 4 MEQ/L (5-15) Blood Urea Nitrogen 48 MG/DL (7-18) 50 MG/DL (7-18) Creatinine 1.51 MG/DL 1.55 MG/DL (0.50-1.00) (0.50-1.00) Estimat Glomerular Filtration 34 ML/MIN (>89) 33 ML/MIN (>89) Rate Random Glucose 187 MG/DL 83 MG/DL (74-106) (74-106) Calcium Level 11.9 MG/DL 12.3 MG/DL (8.5-10.1) (8.5-10.1) Protein Corrected Calcium 11.1 MG/DL 11.4 MG/DL (8.5-10.1) (8.5-10.1) Phosphorus Level 5.3 MG/DL 5.2 MG/DL (2.5-4.9) (2.5-4.9) Magnesium Level 2.4 MG/DL 2.5 MG/DL (1.5-2.5) (1.5-2.5) Total Bilirubin 0.5 MG/DL 0.6 MG/DL (0.2-1.0) (0.2-1.0) Aspartate Amino Transf 33 U/L (15-37) 38 U/L (15-37) (AST/SGOT) Alanine Aminotransferase 21 U/L (10-53) 27 U/L (10-53) (ALT/SGPT) Alkaline Phosphatase 273 U/L 294 U/L (45-117) (45-117) Total Protein 8.4 GM/DL 8.4 GM/DL (6.4-8.2) (6.4-8.2) Albumin 1.9 GM/DL 2.1 GM/DL (3.4-5.0) (3.4-5.0) Hematology Comments Result Diagram: 11/15/16 1010 11/15/16 1010 Imaging Last Impressions PICC Line Insertion 11/10/16 0000 Signed Impressions: Service Date/Time: Thursday, November 10, 2016 17:07 - CONCLUSION: 1. Uncomplicated central venous Power PICC line placement. 2. The PICC line can be used immediately. Garrison Pascual MD Chest X-Ray 11/03/16 0000 Signed Impressions: Service Date/Time: Thursday, November 03, 2016 15:03 - CONCLUSION: Subclavian central venous catheter which is in good position. No evidence of pneumothorax. Improving lung aeration with decreasing congestion and bibasilar airspace disease. Kendall Lara MD Abdomen CT 11/01/16 0000 Signed Impressions: Service Date/Time: October 15:20 - CONCLUSION: No abnormalities are seen with respect to the liver or spleen. Previously noted small fluid collections adjacent to the small bowel loops within the right lower quadrant are no longer present. The configuration of the small bowel loops adjacent to the intra-abdominal wall at the site of mesh repair are consistent with areas of adhesion. No evidence of bowel obstruction.. Hoda Ash MD Abdomen/Pelvis CT 10/19/16 0000 Signed Impressions: Service Date/Time: September 15:10 - CONCLUSION: 1. There are 2 small rim-enhancing fluid collections in the right mid abdomen adjacent to the distal ileum that extends into the ileostomy. These measure 2.6 x 1.3 cm and 2.1 x 1.6 cm. These could represent infected fluid collections but are too small to place a drainage catheter. There is an additional small subcapsular fluid collection along the anterior left lobe of the liver. 2. Additionally, there is wall thickening of the distal ileal loops along with marked mesenteric edema. 3. There is a small volume of free fluid in the left upper quadrant around the spleen and in the pelvis. 4. There is a new small left pleural effusion with compressive atelectasis and right lower lobe volume loss versus airspace consolidation. Calixto Uriostegui MD Liver Ultrasound 07/12/16 0000 Signed Impressions: Service Date/Time: Tuesday, July 12, 2016 18:07 - CONCLUSION: 1. No acute abnormality demonstrated. 2. Heterogeneous liver without measurable mass. 3. Small and heterogeneous spleen without a measurable mass. 4. Cortical thinning and scarring of the right kidney. 5. Previous cholecystectomy. Calixto Woodruff MD Chest CT 07/09/16 0000 Signed Impressions: Service Date/Time: Saturday, July 09, 2016 14:43 - CONCLUSION: 1. Small right pleural effusion and minimal right basilar consolidation. 2. 6 mm left basilar nodule. Followup CT chest 6 months recommended. Florian Pepper MD Lower Extremity Ultrasound 06/25/16 0000 Signed Impressions: Service Date/Time: Saturday, June 25, 2016 15:56 - CONCLUSION: Negative exam with no evidence of deep venous thrombosis. Soft tissue edema. Mike Leija MD Port Line Insertion 06/20/16 0000 Signed Impressions: Service Date/Time: Monday, June 20, 2016 08:53 - CONCLUSION: Uncomplicated ultrasound and fluoroscopic guided implanted central venous port catheter placement as described in detail above. An 8 Welsh Power port was placed. Kevan Salgado Jr., MD Procedures Stump debridement and wound VAC placement 06/16/16 TPN Skin biopsies, face 07/24/16 Exploratory laparotomy, ileostomy, colostomy, bowel resection 10/08/16 . 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 No other specific skin pathology noted. . (9) pulmonary nodule on CT scan, 2.6 mm at the left base (10) depression (11) COPD, not oxygen dependent (12) history of breast cancer (13) anxiety (14) anemia Symptom Scale: (1) pain 0-10 Scale: 4 (she has been receiving Dilaudid ) Comment: Pain has been mostly abdominal pain,+ r/t dressing changes . (2) anxiety 0-10 Scale: 3 Comment: Well controlled with scheduled Cymbalta, Remeron (3) depression 0-10 Scale: 2 Comment: Reasonably well controlled with Cymbalta, Remeron (4) Malnutrition 0-10 Scale: Unable to quantify Comment: albumin 1.5, on TPN. Very poor oral intake (5) Dyspnea 0-10 Scale: Unable to quantify Comment: CXR +new pneumonia, + on/off NRB mask Pertinent Non-Medical Issues Psychosocial: Second marriage for about 1 year, but most of that time in the hospital or SNF. No children, but has close friend Anuradha. Spiritual: Evaluation pending Legal: The patient has capacity for decision-making, and has designated her friend Anuradha and her Dwight as primary and secondary HCS respectively Ethical issues impacting care: None. . Important Contacts Primary HCS, close friend Anuradha Christian [phone] : Dwight Wilson [phone] . Prognosis She has suffered multiple illnesses, infections, and complications during the last 10 months, and now has undergone emergency surgery for more ischemic bowel. Her overall prognosis remains somewhat poor, and she would be an appropriate hospice candidate if her proxy decision makers elected to transition to comfort care. . Code Status: No Code Plan == DO NOT RESUSCITATE, per patient request 11/03/16 == GOALS: The patient continues to want AGGRESSIVE CARE short of resuscitation/ code. The patient is very likely to continue to decline in spite of this ongoing aggressive care. We have briefly discussed options of transition to comfort focus in hospice. She is tearful, understands she is likely to continue to decline, no changes elected at this time. == DECISION-MAKING: patient appears able to make her own decisions currently. HCS is her friend Anuradha Christian (primary) and her Dwight Wilson ( secondary) == SYMPTOMS: * Pain: s/p recent ex-lap surgery; still with some sharp, intermittent pain to mid abdomen--- prn 0.5mg - 1mg hydromorphone; requiring 3-4 doses a day most days * Anxiety/depression: She had been stable/improved cymbalta, remeron. Today tearful though this may be situational. Will continue to evaluate. * malnutrition- on TNP, very poor oral intake. Taking Ensure only. Albumin 1.9 . * dyspnea- bibasilar consolidation, LINDA pneumonia. Now tolerating NC O2. Last imaging 11/03 improved. On mult abx, nebulizers. Ongoing discussions RE intubation/code status/treatment wishes w pt. -- prev elected DNR . Affirms wishes to remain DNR. ==Palliative care will continue to follow during hospital course as condition evolves, to assist patient/decision-maker with understanding of medical conditions, weighing benefits/burdens of treatment options, for clarification of goals of treatment. Additionally will assist with any symptoms of palliative concern . . Time Spent Total Floor Time (mins): 25 Face to Face Time (mins): 20 Attestation To help prompt me to consider important information that might be impacting today's encounter and assessment, information from prior notes written by myself or my colleagues may have been "brought forward" into today's note. My signature on this note, however, is an attestation that I personally performed the exam, history, and/or decision-making noted today, and, unless otherwise indicated, the interactions with patient, family, and staff as well as the review of records all occurred today. I also attest that the listed assessment and stated plan reflect my best clinical judgment today based on the combination of historical information, prior notes, and today's exam/ interactions. When time spent is documented, it refers only to time spent today by the signer, or if indicated, combined time spent today by collaborating physician/nurse practitioner. Xi Marinelli Nov 15, 2016 15:59
[2016-11-15] MEDS: FLUCONAZOLE 400 MG PREMIX BAG 200 ML IV SCH (16:48)
--- NOTE | 2016-11-15 17:13 | PD.CAR.PN ---
CVT Progress Note Subjective/Hospital Course: 70-year-old female with a complex medical and surgical history of peripheral vascular disease and multiple related problems presents now status post BK amputation about a month half ago. Patient went to care home and apparently braced herself on the stump several times in bed in hit it against either floor or the chair not quite clear. Part of the stump opened up and at this point patient is dehiscence of skin deeper tissue seemed to be still intact. 06/16/16 Patient underwent yesterday debridement of the stump with wound VAC placement. The dehiscence is fortunately superficial involving skin and muscle in this as been debrided successfully while the rest of the tissues of bleeding and are viable. Wound VAC has been placed Cultures have been reviewed and antibiotics can be adjusted by medicine as appropriate We'll continue current care and patient should be able to go to care home with a wound VAC by Sunday Patient's nutritional status is very poor with a low albumen and prealbumin level and therefore nutritional evaluation and recommendations are requested I believe the patient is not taking sufficient by mouth in the care home and may need supplemental enteral or parenteral feedings at this point 06/17/16 I reviewed the nutritional parameters and patient's prealbumin and transferrin levels a critically low indicating severe malnutrition. Patient's healing is impaired and so is the rehabilitative potential. After reviewing to nutritional recommendations once these are made, we will decide whether patient needs an Budmut-d-Pmxw placed for additional parenteral nutrition for short bowel syndrome Stump is nice and clean with minimal drainage from the wound VAC 06/19/16 Still awaiting nutritional consult and evaluation for patient has short gut syndrome and will probably need additional parenteral feedings. If so patient will need Osjavt-o-Ftey placement for additional feedings Patient is taking excellent by mouth but despite that her nutritional status is poor and hence the healing issues Left BKA stump incision is clean and wound VAC is in place with minimal drainage and will need to be changed today Awaiting wound care to change the wound VAC. Infectious disease help is much appreciated 06/20/2016 Patient doing well at this time. Stump is clean and the wound VAC will be changed today Patient had Grmxin-o-Asat placed by radiology for supplemental parenteral feedings. Grateful for the nutritional evaluation. Patient will be placed on TPN at about the 1500 non-protein calories a day split about 60-70% in glucose and about 30% in form of lipids Patient will likely have to be discharged on supplemental TPN in face of her short bowel syndrome 06/21/16 Patient is doing really well at this time She's taking good by mouth diet. 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 There is some granulation tissue which may eventually need to be debrided but at this point I would leave it alone. Stump wound VAC has been changed and this is clean and granulating nicely. Patient is currently on TPN which tolerating well. In face of her short bowel syndrome patient will need TPN after discharge from the hospital. Grateful to case management for making arrangements for the same 06/22/16 Vital signs stable patient is doing well. Her appetite has improved and patient is taking good by mouth diet and having regular bowel movements. The abdominal incision is completely healed and fistula has completely resolved. The BKA wound VAC has been changed and wound is clean and granulating nicely. Fvankq-r-Vxzi is being used for additional parenteral feedings necessary and short bowel syndrome and patient will be discharged on TPN. 06/23/16 Patient underwent today change of the wound VAC and the wound is clean. Next with will be the last wound VAC change and after that I plan to take the patient to the OR for irrigation and closure of the wound by the middle of the next week. 06/24/16 Patient doing very well at this time she is in a good mood and taking by mouth diet well Unfortunately due to the short bowel syndrome she need supplemental TPN feedings at this time Stump is healed nicely there is a small scab anterior to it and this should allow to fall off on its own Once the arrangements are made for outpatient TPN patient will be able to be discharged Awaiting case management to make the arrangements for outpatient TPN 06/25/16 Vital signs stable Patient is awake and alert and oriented, taking by mouth diet very well Abdomen is soft and the colocutaneous fistula is completely closed The BKA stump has an eschar and a scab but I would leave this alone because underneath its healing nicely. Patient remains on TPN considering the short gut syndrome and will go home on the same Mild anemia is dilutional due to TPN administration and intravenous fluids and does not require therapy at this time 06/26/16 Vital signs stable Patient is awake and alert and oriented, taking by mouth diet very well Abdomen is soft and the colocutaneous fistula is completely closed The BKA stump has an eschar and a scab but I would leave this alone because underneath its healing nicely. Patient remains on TPN considering the short gut syndrome and will go home on the same Mild anemia is dilutional due to TPN administration and intravenous fluids and does not require therapy at this time 06/27/16 Wound VAC has been removed by me and the the entire stump is healed very nicely except a small area but an inch length at the very lateral portion of the incision were we going to put a very small wound VAC on for another week or so. Patient can transfer to rehabilitation at any time as long as she can get intravenous TPN in the process 06/28/16 Wound VAC has been removed by me and the the entire stump is healed very nicely except a small area but an inch length at the very lateral portion of the incision were we going to put a very small wound VAC on for another week or so. 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 I understand the difficulty this creates for case management to find her such an arrangement 06/29/16 Patient doing really well at this time taking good by mouth but due to the short bowel syndrome will require long-term TPN Stump is healing really nicely and the probably after this week we will remove the wound VAC and simply place wet-to-dry dressing and allow this to heal 06/30/16 Patient is doing well tolerates diet. Abdomen is soft with active bowel sounds Incisions are clean and dry Wound VAC last change will be next week and after that we going to remove the wound VAC and continue wet-to-dry dressing Stump is healing really nicely Due to TPN and other issues placement remains a problem 07/01/16 Abdomen soft and active bowel sounds Tolerates diet well Stump is clean and dry and I'll remove the wound VAC on Sunday after that patient will just be on wet-to-dry dressings until the stump heels Arrangements for discharge to difficult due to long-term TPN needs 07/03/16 Vital signs stable Stump is clean and wound VAC after next removal won't need to be applied again Patient will remain long-term on TPN and I'm waiting for case management to make discharge arrangements Will [facility] medicine kindly if patient can be transferred to medicine service at this time 07/14/16 Patient is a placement issue apparently is still in the hospital The left BKA stump is healed nicely except for very small air about 1 cm which is granulating in on the lateral aspect of the stump Apparently the enterocutaneous fistula was close for about month and a half and opened up 2 days ago draining some stool It should be noted that the bowel is quite close to the skin and patient is very thin and malnourished so it is not surprising that fistula opens and closes sporadically. With enteral and parenteral nutrition that should close but clearly patient is very frail and it could open up any time Nothing to add to care at this time 07/26/16 Discussed the patient with medical attending. She has systemic cutaneous herpes zoster and is on appropriate medications The drainage from anterior abdominal wall is very minimal however irritating to the skin of the abdominal wall in face of herpes and the nature of intestinal fluid. Just putting dressings will only worsen the situation so patient should be treated with the stoma and coverage of the skin. Unfortunately the colostomy material will not stick to the skin and the contents will leak underneath it. At point is best solution was due to apply Silvadene ointment daily and then dressing Patient's appetite is very poor sure refuses food and she remains on TPN although her GI tract is completely patent Her prognosis in general is for due to malnutrition short bowel syndrome and immune failure. 09/01/16 Patient seen at [facility]. Patient has tremendously improved in the last month or so. The rash she had has since disappeared I am not sure this was a herpetic rash or perhaps caused by zinc or selenium deficiency At this point patient is eating well and she is again about 15 pounds. Her short bowel syndrome as being managed adequately with improvement of by mouth intake and modification of the diet Abdomen is soft with active bowel sounds and the fistula has closed There is small amount of preperitoneal fat extruding from the abdomen incision. I debrided this at the bedside In the worse case scenario patient would have to go to the operating room to have this cauterized away and reclosed but I would certainly like to avoid this in this lady was finally recovering nicely 11/20/16 Last night patient was straining when going to bathroom and enterocutaneous fistula opened up again Patient is now draining stool over the last 24 hours. 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 She underwent several surgeries and it is a miracle that patient has survived all this. The fistulous tract has now opened and closed about 5 times since September last year when patient's first came and this is now another instance of the same. As far as the fistulous tract is concerned this patient is not a candidate for an open surgery due to malnutrition, short bowel syndrome in the anatomic considerations. Going into this abdomen with resultant multiple fistulas, damage to the remaining small bowel and likely of the patient Therefore the appropriate way to manage this as conservatively filled the fistula tracts closes again Physical examination reveals skin inferior to the fistula to be starting to get red again and irritated although it was nicely healed as stated in above note It should be noted that this is distal small bowel content and therefore fairly caustic so meticulous care has to be taken not to allow this to be in contact with the skin On my arrival one part of the fistula in the midline is covered with a colostomy bag while the stool is freely draining all over the patient's abdomen between the legs and on the bed I went into the room ostomy nurse to come with me and removed personally everything cleaned patient up with nursing assistance I said down with the warehouse and receiving supervisor and the nurse and explained in detail how this should be covered and how the stoma should be structured in order to protect the skin Apparently large pieces of stoma skin adhesive material are not available here and let to be brought from [facility]. The same large pieces were used when patient first came to [place] and care was described in orders At this point meticulous care has to be taken in order to prevent skin damage and free leakage It is also imperative that the wound care gets involved in management of this patient 10/30/16 Patient had the spike a fever today to 101.8 White count 16,000 Abdomen is soft with active bowel sounds and ileostomy is working very well Bilateral breath sounds and no rhonchi or rales Wound VAC has been changed today and I'll look to the wound leg really looks nice and healing very nicely with good granulation tissue No signs of dehiscence I believe the fever spikes are part of the fungemia and unfortunately 30-50% of patients will develop systemic fungemia in this setting will succumb to the same despite maximum therapy Patient remains on micafungin Continue care 10/31/16 Abdomen is soft and active bowel sounds and incision is nice and granulating underneath the wound VAC Ileostomy working fine White count is coming down and patient hasn't had any fever spikes since placed on Diflucan and micafungin Unfortunately patient refuses to eat and also refuses to get out of bed Physical therapy and occupational therapy of trying to mobilize the patient but she will not cooperate She also refuses to take by mouth diet but drinks high caloric supplements at least Respiratory-gillette patient is doing well throughout the day and then 2 in the evening her sats started dropping to again improve later on Will order ABGs and perhaps do a CAT scan of the chest to assess for any effusions or any other possible causes for this Again patient is very ill with fungemia which carries high mortality and ICU patient's especially with immunosuppression accompanying the clinical picture 08/22/17 I today patient is doing okay She doesn't want to take any by mouth diet except high caloric supplements Abdomen is soft active bowel sounds ileostomy and colostomy clean and midline wound is healing nicely with a the wound VAC Bilateral breath sounds decreased over the both lung chaney consistent with bilateral pulmonary consolidation unlikely mu onset lower lobe pneumonia Patient is unwilling to get out of bed and does not participate in physical occupational therapy rather chased some out of the room Discussed the care with her wire coiler machine operator Mrs. 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 Currently on amphotericin B and antibiotics Patient is refusing any by mouth diet and is refusing to get out of bed She will developed pneumonia and and up on the respirator again if she continues to refuse activity Midline incision wound VAC has been changed and appears to be clean and granulating nicely 11/07/16 Patient somewhat improved awake alert and oriented White count has normalized Abdomen is soft with active bowel sounds ileostomy working fine Midline incision is healing very well Patient refuses take by mouth diet except for occasional bites of something and ensure Nothing to add to care 11/08/16 Abdominal incision is clean and wound VAC is in place be changed tomorrow Ileostomy working fine Patient taking by mouth however refuses regular diet and only drinks fluids Remains afebrile at this time and infection seem to be under control Very hard to manage as far as physical therapy is concerned because patient refuses to get out of bed or participate in any therapy Have tried to explain to her the importance of physical therapy in order to get her back on her feet regain strength and mobilize as well as as a means to prevent pneumonia but patient will not get out of bed 11/13/16 Ileostomy is nice and clean working fine Unfortunately ileostomy bag got disconnected and the fluid leaked into the midline incision secondary closure site Therefore the wound VAC have to be removed wound washed and replaced It's quite difficult to protect the wounds in this situation where patient's abdomen so tiny that all the structures a sort of in close proximity I've discussed this with the wound care nurse and she was kind to change her wound VAC today Patient finally at half of her breakfast and half of her lunch today which is actually an improvement and I am happy that patient is eating more 11/14/16 All studies have normalized and cultures remain negative Patient started to take little more by mouth Abdomen is soft and ileostomy is working well The colostomy bag broke open yesterday and everything contents spilled over the midline incision according to the nurse At this point patient clearly does not need a wound VAC other than for the purposes of protecting the incision for the ileostomy and colostomy bag are leaking each time these are attached to the patient for some reason, so the only way to protect the wound at this time is with wound VAC Other than that wound is healing nicely Mac I would prefer patient not to have the wound VAC and the colostomy back to be properly applied rather than leaking every time 11/15/16 Vital signs stable Patient is awake alert and oriented Had little food today but generally refuses to eat more than a few bites Tolerates supplement feeds but will not take much of those either Abdomen is soft The midline incision is almost healed and the wound VAC has been placed mainly to protect the wound from spillage from the ileostomy while its healing It should be noted that patient's the creatinine has gone up a little bit and this is not quite clear as far as the cause for patient's well hydrated The antibiotic therapy and amphotericin would clearly be the first culprits to take on as far as the creatinine increase In addition patient has increased calcium level and even corrected calcium is high sodium order PTH level to assess for hyperparathyroidism which would not be very unusual in this situation Objective: Vital Signs Date Time Temp Pulse Resp B/P Pulse Ox O2 Delivery O2 Flow Rate FiO2 11/15/16 16:00 96.0 83 17 115/59 98 11/15/16 12:00 96.3 82 17 119/60 96 11/15/16 10:36 95 Nasal Cannula 3.00 11/15/16 08:15 Nasal Cannula 2.00 11/15/16 08:00 96.4 89 17 131/60 95 11/15/16 00:00 96.0 87 17 119/61 95 11/14/16 20:00 95.8 90 17 123/62 94 11/14/16 20:00 Nasal Cannula 2.00 11/14/16 18:49 95 Nasal Cannula 3.00 Labs: Laboratory Tests Test 11/15/16 11/15/16 05:55 10:10 White Blood Count TH/MM3 10.4 TH/MM3 (4.0-11.0) (4.0-11.0) Red Blood Count MIL/MM3 3.52 MIL/MM3 (4.00-5.30) (4.00-5.30) Hemoglobin GM/DL 10.1 GM/DL (11.6-15.3) (11.6-15.3) Hematocrit % (35.0-46.0) 30.8 % (35.0-46.0) Mean Corpuscular Volume FL 87.5 FL (80.0-100.0) (80.0-100.0) Mean Corpuscular Hemoglobin PG (27.0-34.0) 28.6 PG (27.0-34.0) Mean Corpuscular Hemoglobin % (32.0-36.0) 32.8 % Concent (32.0-36.0) Red Cell Distribution Width % (11.6-17.2) 18.2 % (11.6-17.2) Platelet Count TH/MM3 435 TH/MM3 (150-450) (150-450) Mean Platelet Volume FL (7.0-11.0) 8.5 FL (7.0-11.0) Neutrophils (%) (Auto) % (16.0-70.0) 42.7 % (16.0-70.0) Lymphocytes (%) (Auto) % (9.0-44.0) 37.9 % (9.0-44.0) Monocytes (%) (Auto) % (0.0-8.0) 11.3 % (0.0-8.0) Eosinophils (%) (Auto) % (0.0-4.0) 7.6 % (0.0-4.0) Basophils (%) (Auto) % (0.0-2.0) 0.5 % (0.0-2.0) Neutrophils # (Auto) TH/MM3 4.4 TH/MM3 (1.8-7.7) (1.8-7.7) Lymphocytes # (Auto) TH/MM3 3.9 TH/MM3 (1.0-4.8) (1.0-4.8) Monocytes # (Auto) TH/MM3 (0-0.9) 1.2 TH/MM3 (0-0.9) Eosinophils # (Auto) TH/MM3 (0-0.4) 0.8 TH/MM3 (0-0.4) Basophils # (Auto) TH/MM3 (0-0.2) 0.0 TH/MM3 (0-0.2) CBC Comment DIFF FINAL Differential Comment Hematology Comments Sodium Level 141 MEQ/L (136-145) Potassium Level 3.6 MEQ/L (3.5-5.1) Chloride Level 98 MEQ/L (98-107) Carbon Dioxide Level 39.3 MEQ/L (21.0-32.0) Anion Gap 4 MEQ/L (5-15) Blood Urea Nitrogen 50 MG/DL (7-18) Creatinine 1.55 MG/DL (0.50-1.00) Estimat Glomerular Filtration 33 ML/MIN (>89) Rate Random Glucose 83 MG/DL (74-106) Calcium Level 12.3 MG/DL (8.5-10.1) Protein Corrected Calcium 11.4 MG/DL (8.5-10.1) Phosphorus Level 5.2 MG/DL (2.5-4.9) Magnesium Level 2.5 MG/DL (1.5-2.5) Total Bilirubin 0.6 MG/DL (0.2-1.0) Aspartate Amino Transf 38 U/L (15-37) (AST/SGOT) Alanine Aminotransferase 27 U/L (10-53) (ALT/SGPT) Alkaline Phosphatase 294 U/L (45-117) Total Protein 8.4 GM/DL (6.4-8.2) Albumin 2.1 GM/DL (3.4-5.0) Result Diagram: 11/15/16 1010 11/15/16 1010 Janice Olvera MD Nov 15, 2016 17:13
--- NOTE | 2016-11-15 17:26 | HHI.PR ---
Subjective Remarks NO fevers/chills stable vital signs good oxygen saturation on 3 liters nasal canula elevated calcium level patient c/o mild abdominal pain Patient not eating much and has poor appetite still has diarrhea Objective Vitals Vital Signs Date Time Temp Pulse Resp B/P Pulse Ox O2 Delivery O2 Flow Rate FiO2 11/15/16 16:00 96.0 83 17 115/59 98 11/15/16 12:00 96.3 82 17 119/60 96 11/15/16 10:36 95 Nasal Cannula 3.00 11/15/16 08:15 Nasal Cannula 2.00 11/15/16 08:00 96.4 89 17 131/60 95 11/15/16 00:00 96.0 87 17 119/61 95 11/14/16 20:00 95.8 90 17 123/62 94 11/14/16 20:00 Nasal Cannula 2.00 11/14/16 18:49 95 Nasal Cannula 3.00 I/O 11/14/16 11/14/16 11/14/16 11/15/16 11/15/16 11/15/16 07:00 15:00 23:00 07:00 15:00 23:00 Intake Total 736 ml 360 ml 480 ml 893 ml 200 ml Output Total 1200 ml 400 ml 300 ml 650 ml 1300 ml Balance -464 ml -40 ml 180 ml 243 ml -1100 ml Intake Oral 240 ml 360 ml 480 ml 240 ml 200 ml IV Total 496 ml 653 ml Output Urine Total 700 ml 300 ml 300 ml 650 ml 600 ml Stool Total 500 ml 100 ml 700 ml Drainage Total 0 ml 0 ml Result Diagram: 11/15/16 1010 11/15/16 1010 Imaging Last Impressions PICC Line Insertion 11/10/16 0000 Signed Impressions: Service Date/Time: Thursday, November 10, 2016 17:07 - CONCLUSION: 1. Uncomplicated central venous Power PICC line placement. 2. The PICC line can be used immediately. Garrison Pascual MD Chest X-Ray 11/03/16 0000 Signed Impressions: Service Date/Time: Thursday, November 03, 2016 15:03 - CONCLUSION: Subclavian central venous catheter which is in good position. No evidence of pneumothorax. Improving lung aeration with decreasing congestion and bibasilar airspace disease. Kendall Lara MD Abdomen CT 11/01/16 0000 Signed Impressions: Service Date/Time: October 15:20 - CONCLUSION: No abnormalities are seen with respect to the liver or spleen. Previously noted small fluid collections adjacent to the small bowel loops within the right lower quadrant are no longer present. The configuration of the small bowel loops adjacent to the intra-abdominal wall at the site of mesh repair are consistent with areas of adhesion. No evidence of bowel obstruction.. Hoda Ash MD Abdomen/Pelvis CT 10/19/16 0000 Signed Impressions: Service Date/Time: September 15:10 - CONCLUSION: 1. There are 2 small rim-enhancing fluid collections in the right mid abdomen adjacent to the distal ileum that extends into the ileostomy. These measure 2.6 x 1.3 cm and 2.1 x 1.6 cm. These could represent infected fluid collections but are too small to place a drainage catheter. There is an additional small subcapsular fluid collection along the anterior left lobe of the liver. 2. Additionally, there is wall thickening of the distal ileal loops along with marked mesenteric edema. 3. There is a small volume of free fluid in the left upper quadrant around the spleen and in the pelvis. 4. There is a new small left pleural effusion with compressive atelectasis and right lower lobe volume loss versus airspace consolidation. Calixto Uroistegui MD Liver Ultrasound 07/12/16 0000 Signed Impressions: Service Date/Time: Tuesday, July 12, 2016 18:07 - CONCLUSION: 1. No acute abnormality demonstrated. 2. Heterogeneous liver without measurable mass. 3. Small and heterogeneous spleen without a measurable mass. 4. Cortical thinning and scarring of the right kidney. 5. Previous cholecystectomy. Calixto Woodruff MD Chest CT 07/09/16 0000 Signed Impressions: Service Date/Time: Saturday, July 09, 2016 14:43 - CONCLUSION: 1. Small right pleural effusion and minimal right basilar consolidation. 2. 6 mm left basilar nodule. Followup CT chest 6 months recommended. Florian Pepper MD Lower Extremity Ultrasound 06/25/16 0000 Signed Impressions: Service Date/Time: Saturday, June 25, 2016 15:56 - CONCLUSION: Negative exam with no evidence of deep venous thrombosis. Soft tissue edema. Mike Leija MD Port Line Insertion 06/20/16 0000 Signed Impressions: Service Date/Time: Monday, June 20, 2016 08:53 - CONCLUSION: Uncomplicated ultrasound and fluoroscopic guided implanted central venous port catheter placement as described in detail above. An 8 Telugu Power port was placed. Kevan Salgado Jr., MD Objective Remarks GENERAL: Lying in bed. Awake, alert. Appears comfortable. SKIN: Warm and dry. HEAD: Normocephalic. EYES: No scleral icterus. No injection or drainage. NECK: Supple, trachea midline. No JVD. MOUTH: Dry mucus membranes. CARDIOVASCULAR: Regular rate and rhythm without murmurs, gallops or rubs. RESPIRATORY: Breath sounds equal bilaterally. No accessory muscle use. GASTROINTESTINAL: right-sided fistula with green/brown liquid stool, as before. Left-sided fistula with no significant output. No rebound or guarding. Wound VAC in midline incision. MUSCULOSKELETAL: No cyanosis, or edema. BACK: Nontender without obvious deformity. No CVA tenderness. NEURO: Tremors noted. PSYCH: Slightly flattened affect. Procedures Left stump debridement by Dr. Hill on 06/15/16 Bedside debridement of preperitoneal fat that was protruding from the abdominal fistula 09/01/16 central line placement Exploratory laparotomy, resection of the anterior abdominal wall fistula tract, resection of the transverse colon to small bowel anastomosis, lysis of adhesions of the small bowel with repair of two enterotomies, right-sided ileostomy, left-sided mucous fistula and partial removal of a ventral hernia mesh. Medications and IVs Current Medications Medications (Trade) Dose Ordered Sig/Shira Route Start Time Stop Time Status Last Admin (Rocaltrol) 0.25 mcg DAILY PO 06/15/16 09:00 Hold 11/15/16 08:17 (Ferrous Sulfate) 325 mg DAILY PO 06/15/16 09:00 11/15/16 08:18 (Pill Splitter) 1 ea UNSCH PRN OTHER 06/14/16 18:00 (Heparin Central Flush) 500 units UNSCH IVF 06/20/16 11:30 10/06/16 12:24 (NS Flush) 5 ml UNSCH PRN IVF 06/20/16 11:30 11/10/16 05:40 (Heparin Central Flush) 250 units UNSCH PRN IVF 06/20/16 11:30 07/26/16 14:54 (Mag-Al Plus Susp Liq) 30 ml Q6H PRN PO 07/09/16 16:45 09/28/16 21:39 (Tylenol) 650 mg Q4H PRN PO 07/11/16 05:45 11/08/16 06:20 (Mycostatin Powder) 1 applic Q12HR TOPICAL 07/11/16 12:00 11/15/16 13:25 (Desitin 40% Oint) 1 applic UNSCH PRN TOPICAL 08/13/16 14:15 10/29/16 10:26 (Zinc Sulfate) 220 mg DAILY PO 09/04/16 09:00 11/15/16 08:18 (C[address]) 30 mg DAILY PO 09/14/16 09:00 11/15/16 08:17 (Cardizem Cd) 240 mg DAILY PO 09/16/16 09:00 Hold 10/18/16 08:04 Gabapentin 300 mg 300 mg TID PO 10/06/16 13:00 Hold 10/09/16 13:39 Fat Emulsion Intravenous 250 ml @ 31.25 mls/ hr SuWe@20 IV-CENTRAL 10/08/16 20:00 11/12/16 21:09 (Mvi-12 Inj/ Folvite Inj/ Clinimix E 03/15) 2,010.2 ml @ 60 mls/hr Q24H IV-CENTRAL 10/08/16 20:00 11/14/16 20:03 (Zofran Inj) 4 mg Q6HR PRN IV PUSH 10/08/16 12:00 11/14/16 09:55 (NS Flush) 2 ml UNSCH PRN IVF 10/08/16 14:45 11/14/16 17:25 (NS Flush) 2 ml BID IVF 10/08/16 21:00 11/15/16 08:19 (Narcan Inj) 0.4 mg UNSCH PRN IV 10/08/16 14:45 (Peridex 0.12% Liq) 15 ml BID@08,20 MT 10/09/16 08:00 11/14/16 08:00 (Dilaudid Pf Inj) 0.5 mg Q3H PRN IV 10/11/16 12:00 11/06/16 22:30 (Dilaudid Pf Inj) 2 mg UNSCH PRN IV 10/12/16 10:45 11/03/16 15:03 (Ditropan) 2.5 mg Q8HR PO 10/14/16 14:41 11/15/16 13:23 (Lasix) 20 mg BID@09,18 PO 10/18/16 18:00 Hold 10/18/16 17:13 (Tylenol) 650 mg Q4H PRN PO 10/18/16 20:15 10/30/16 20:24 (Oscal-D 250-125) 500 mg BID PO 10/23/16 21:00 11/15/16 08:17 (D50w (Vial) Inj) 25 ml UNSCH PRN IV PUSH 10/24/16 16:15 Glucagon 1 mg 1 mg UNSCH PRN OTHER 10/24/16 16:15 Fluconazole/ Sodium Chloride 200 ml @ 100 mls/hr Q24H IV 10/30/16 17:00 11/15/16 16:48 (Ambisome Inj/ D5W 150 ml Inj) 150 ml @ 75 mls/hr Q24H IV 11/01/16 15:00 11/15/16 15:06 Hydromorphone HCl 1 mg 1 mg Q3H PRN IV PUSH 11/03/16 16:00 11/15/16 13:24 (INVanz INJ/NS Inj) 100 ml @ 200 mls/hr Q24H IV 11/04/16 12:00 11/17/16 11:59 11/15/16 11:34 (Xarelto) 15 mg DAILY PO 11/08/16 09:00 11/15/16 08:18 (Questran Light Pkt) 4 gm Q12HR PO 11/10/16 11:45 11/15/16 08:17 (Inderal) 40 mg Q12HR PO 11/10/16 14:30 11/15/16 08:17 (KCl 40 Meq/30 ml Liq) 40 meq DAILY PO 11/10/16 14:30 11/15/16 08:17 (Lomotil 2.5-0.025 Mg Liq) 5 ml BID PO 11/10/16 21:00 11/15/16 08:17 Mirtazapine 30 mg 30 mg HS PO 11/12/16 21:00 11/14/16 20:05 Sodium Chloride 1,000 ml @ 100 mls/hr Q10H IV 11/15/16 17:30 ([facility]) 0 ml @ 0 mls/hr UNSCH OTHER 11/15/16 18:00 UNV Urinary Catheter: Yes Assessment to: Continue Hamlin insert reason: Prolonged Immobilization Vascular Central Line Catheter: No Date of Insertion: Jun 20, 2016 Side: Left A/P Problem List: (1) Septic shock ICD Code: A41.9 Status: Resolved (2) Acute hypoxemic respiratory failure ICD Code: J96.01 Status: Resolved (3) Ischemic colitis ICD Code: K55.9 Status: Resolved (4) COPD (chronic obstructive pulmonary disease) ICD Code: J44.9 Status: Chronic (5) depression Status: Chronic (6) Peripheral neuropathy ICD Code: G62.9 Status: Chronic (7) Chronic diastolic (congestive) heart failure ICD Code: I50.32 Status: Chronic (8) ZIA (acute kidney injury) ICD Code: N17.9 Status: Resolved (9) emergent Ex Lap for ischemic bowel/perforation 10/08/16 Status: Resolved (10) Acute blood loss anemia ICD Code: D62 Status: Resolved Assessment and Plan Ms. Wilson is a pleasant 71 year old female who was admitted to the hospital in Oct 2015 due to ischemic bowel and subsequently underwent resection of large , small bowel and cholecystectomy. 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 Patient was discharged to SNF but returned to the hospital due to post surgical complications. She underwent left foot amputation and subsequently had a lot of post surgical complications requiring wound vac. Her surgeon (Dr. Olvera) determined that patient was too high risk for further surgical intervention. Patient was on TPN and after discussing with Dr. Hill we switched patient to PO diet. Based on patient's desires, we spoke to Dr. Hill regarding a second surgical opinion. Dr. Hill was kind enough to consult Dr. Grajeda who evaluated patient on 10/07/2016. On 10/08/2016, patient was transferred to the main campus after she complained of severe abdominal pain and CT scan showed ischemic bowel. Due to septic shock, patient was started on vancomycin and Cefepime prior to transfer. Septic shock/ Ischemic colitis S/p Ex lap, resection of anterior abdominal wall fistula tract, resection of transverse colon to small bowel anastomosis, right sided ileostomy, left sided mucous fistula and partial removal of a ventral hernia mesh 10/08/16. Has fungemia. Port and central line were removed. Chest abscess cultures positive for yeast. - follow up with surgery. - Echocardiogram cannot rule out vegetation. May need transesophageal echo, will defer to infectious disease. - cont ertapenem for ESBL + Kleb pneumo thru 11/16. - continue fluconazole and amphotericin B. Monitor BMP, MG and phos while on AMB - PT/OT. - The colostomy bag broke open yesterday and everything contents spilled over the midline incision according to the nurse. as per surgery the patient does not need a wound VAC other than for the purposes of protecting the incision for the ileostomy and colostomy bag are leaking each time these are attached to the patient for some reason, so the only way to protect the wound at this time is with wound VAC, Other than that wound is healing nicely Malnutrition S/t bowel surgery. On TPN. Has a lot of stool output. Improved on Lomotil. - encourage PO intake. - follow up with dietary. - continue TPN. - GI consult appreciated. Trial of Lomotil. - continue Cholestiramine, Patient should not be started on gattex unless she can continue with it after discharge. - COPD/ Acute hypoxemic respiratory failure S/p extubation on 10/10/2016. - now resolved - Continue bronchodilators, incentive spirometry. - On O2 3liters nasal canula on 11/13 Acute blood loss anemia S/p 4 units of PRBCs on 10/08/2016. Hemoglobin continues to be stable. - Monitor as necessary. Diabetes mellitus On TPN. blood sugars are acceptable. - Continue sliding scale with insulin novolog. Tremors Ongoing for the past year. - trial of propranolol. Improved. - will need neuro work-up as an outpt. Delirium The pt endorses intermittent confusion. - frequent reorientation. - treat infection as above. - ST cognitive eval ---> Severe cognitive deficit as per evaluation. Depression On Remeron and Celexa. - Continue Remeron - continue Celexa. ZIA Creatinine trending up 1.5 today likely prerenal azotemia due to poor oral intake, will start patient on IV normal saline Amphotericin B could also be causing ZIA. If no improvement after IV fluids then will consult nephrology and another antibiotic therapy might be needed Case discussed with Dr Carrillo from ID. Contraction alkalosis Due to dehydration. IV fluids as above. Monitor BMP Hypercalcemia Calcium trending up 12.3 today Likely due to dehydration. Hold Vitamin D. IV fluids, monitor BMP. If Calcium still high in am then will give calcitonin. Hyperphosphatemia possibly due to Vitamin D toxicity/ decrease excretion of phosphorus due to ZIA. Treat with IV fluids, hold Vitamin D. PPx: Xarelto; Protonix. Prophylaxis Lovenox/PPI Discharge Planning Continue to monitor in the medical floor Jeff Carey MD Nov 15, 2016 17:26
[2016-11-15] MEDS ORDERED: Custom Consult Pharmacy 1 EA OTHER SCH (18:00)
--- NOTE | 2016-11-15 18:02 | HHI.IDPN ---
Subjective Subjective Remarks Patient known to ID service. Overnight events reviewed with RN. Chart reviewed. remains on NC O2 On TPN minimal po UOP is adequate Last blood clx negaive - final Antibiotics fluconazol lip AMB vanco azctam Lines Port: removed Past Medical History Ischemic Bowel w/ Resection and development of Enterocutaneous Fistula Short gut syndrome Asthma Depression and COPD Past Surgical History Bowel Resection 11/13/15 and 11/26/15 Left BKA Right Mastectomy Hysterectomy, Allergies: Coded Allergies: Levaquin (Verified Allergy, Severe, Edema, 05/29/16) Penicillin (Unverified Allergy, Intermediate, hives, 03/10/16) Sulfa (Unverified Allergy, Intermediate, hives, 03/10/16) *MDRO Multi-Drug Resistant Organism (Verified Adverse Reaction, Unknown, ) ESBL+Klebsiella (leg) - 06/15/16; (sputum) - 11/01/16 Objective . Vital Signs Date Time Temp Pulse Resp B/P Pulse Ox O2 Delivery O2 Flow Rate FiO2 11/15/16 16:00 96.0 83 17 115/59 98 11/15/16 12:00 96.3 82 17 119/60 96 11/15/16 10:36 95 Nasal Cannula 3.00 11/15/16 08:15 Nasal Cannula 2.00 11/15/16 08:00 96.4 89 17 131/60 95 11/15/16 00:00 96.0 87 17 119/61 95 11/14/16 20:00 95.8 90 17 123/62 94 11/14/16 20:00 Nasal Cannula 2.00 11/14/16 18:49 95 Nasal Cannula 3.00 11/14/16 11/14/16 11/15/16 15:00 23:00 07:00 Intake Total 360 ml 480 ml 893 ml Output Total 400 ml 300 ml 650 ml Balance -40 ml 180 ml 243 ml Intake Oral 360 ml 480 ml 240 ml IV Total 653 ml Output Urine Total 300 ml 300 ml 650 ml Stool Total 100 ml Drainage Total 0 ml . Laboratory Tests Test 11/14/16 11/15/16 11/15/16 13:00 05:55 10:10 White Blood Count 8.3 TH/MM3 TH/MM3 10.4 TH/MM3 Red Blood Count 3.30 MIL/MM3 MIL/MM3 3.52 MIL/MM3 Hemoglobin 9.6 GM/DL GM/DL 10.1 GM/DL Hematocrit 29.1 % % 30.8 % Mean Corpuscular Volume 88.3 FL FL 87.5 FL Mean Corpuscular Hemoglobin 29.2 PG PG 28.6 PG Mean Corpuscular Hemoglobin 33.1 % % 32.8 % Concent Red Cell Distribution Width 18.7 % % 18.2 % Platelet Count 402 TH/MM3 TH/MM3 435 TH/MM3 Mean Platelet Volume 8.7 FL FL 8.5 FL Neutrophils (%) (Auto) 37.1 % % 42.7 % Lymphocytes (%) (Auto) 42.8 % % 37.9 % Monocytes (%) (Auto) 9.4 % % 11.3 % Eosinophils (%) (Auto) 9.8 % % 7.6 % Basophils (%) (Auto) 0.9 % % 0.5 % Neutrophils # (Auto) 3.1 TH/MM3 TH/MM3 4.4 TH/MM3 Lymphocytes # (Auto) 3.5 TH/MM3 TH/MM3 3.9 TH/MM3 Monocytes # (Auto) 0.8 TH/MM3 TH/MM3 1.2 TH/MM3 Eosinophils # (Auto) 0.8 TH/MM3 TH/MM3 0.8 TH/MM3 Basophils # (Auto) 0.1 TH/MM3 TH/MM3 0.0 TH/MM3 CBC Comment DIFF FINAL DIFF FINAL Differential Comment Hematology Comments Laboratory Tests Test 11/14/16 11/15/16 13:00 10:10 Sodium Level 141 MEQ/L 141 MEQ/L Potassium Level 3.3 MEQ/L 3.6 MEQ/L Chloride Level 98 MEQ/L 98 MEQ/L Carbon Dioxide Level 37.1 MEQ/L 39.3 MEQ/L Anion Gap 6 MEQ/L 4 MEQ/L Blood Urea Nitrogen 48 MG/DL 50 MG/DL Creatinine 1.51 MG/DL 1.55 MG/DL Estimat Glomerular Filtration 34 ML/MIN 33 ML/MIN Rate Random Glucose 187 MG/DL 83 MG/DL Calcium Level 11.9 MG/DL 12.3 MG/DL Protein Corrected Calcium 11.1 MG/DL 11.4 MG/DL Phosphorus Level 5.3 MG/DL 5.2 MG/DL Magnesium Level 2.4 MG/DL 2.5 MG/DL Total Bilirubin 0.5 MG/DL 0.6 MG/DL Aspartate Amino Transf 33 U/L 38 U/L (AST/SGOT) Alanine Aminotransferase 21 U/L 27 U/L (ALT/SGPT) Alkaline Phosphatase 273 U/L 294 U/L Total Protein 8.4 GM/DL 8.4 GM/DL Albumin 1.9 GM/DL 2.1 GM/DL Imaging Last Impressions Chest X-Ray 11/03/16 0000 Signed Impressions: Service Date/Time: Thursday, November 03, 2016 15:03 - CONCLUSION: Subclavian central venous catheter which is in good position. No evidence of pneumothorax. Improving lung aeration with decreasing congestion and bibasilar airspace disease. Kendall Lara MD Abdomen CT 11/01/16 0000 Signed Impressions: Service Date/Time: October 15:20 - CONCLUSION: No abnormalities are seen with respect to the liver or spleen. Previously noted small fluid collections adjacent to the small bowel loops within the right lower quadrant are no longer present. The configuration of the small bowel loops adjacent to the intra-abdominal wall at the site of mesh repair are consistent with areas of adhesion. No evidence of bowel obstruction.. Hoda Ash MD Abdomen/Pelvis CT 10/19/16 0000 Signed Impressions: Service Date/Time: September 15:10 - CONCLUSION: 1. There are 2 small rim-enhancing fluid collections in the right mid abdomen adjacent to the distal ileum that extends into the ileostomy. These measure 2.6 x 1.3 cm and 2.1 x 1.6 cm. These could represent infected fluid collections but are too small to place a drainage catheter. There is an additional small subcapsular fluid collection along the anterior left lobe of the liver. 2. Additionally, there is wall thickening of the distal ileal loops along with marked mesenteric edema. 3. There is a small volume of free fluid in the left upper quadrant around the spleen and in the pelvis. 4. There is a new small left pleural effusion with compressive atelectasis and right lower lobe volume loss versus airspace consolidation. Calixto Uriostegui MD Liver Ultrasound 07/12/16 0000 Signed Impressions: Service Date/Time: Tuesday, July 12, 2016 18:07 - CONCLUSION: 1. No acute abnormality demonstrated. 2. Heterogeneous liver without measurable mass. 3. Small and heterogeneous spleen without a measurable mass. 4. Cortical thinning and scarring of the right kidney. 5. Previous cholecystectomy. Calixto Woodruff MD Chest CT 07/09/16 0000 Signed Impressions: Service Date/Time: Saturday, July 09, 2016 14:43 - CONCLUSION: 1. Small right pleural effusion and minimal right basilar consolidation. 2. 6 mm left basilar nodule. Followup CT chest 6 months recommended. Florian Pepper MD Lower Extremity Ultrasound 06/25/16 0000 Signed Impressions: Service Date/Time: Saturday, June 25, 2016 15:56 - CONCLUSION: Negative exam with no evidence of deep venous thrombosis. Soft tissue edema. Mike Leija MD Port Line Insertion 06/20/16 0000 Signed Impressions: Service Date/Time: Monday, June 20, 2016 08:53 - CONCLUSION: Uncomplicated ultrasound and fluoroscopic guided implanted central venous port catheter placement as described in detail above. An 8 [place] Power port was placed. Kevan Salgado Jr., MD Physical Exam CONSTITUTIONAL/GENERAL: fully awake and alert ill appearing Conversant TUBES/LINES/DRAINS: R SCV cath removed PORT incision is dry and clean at previous PORT site, no skin changes SKIN: No jaundice, rashes, or lesions. Skin temperature appropriate. Not diaphoretic. HEAD: Atraumatic. Normocephalic. EYES: Pupils equal and round and reactive. Extraocular motions intact. No scleral icterus. No injection or drainage. Fundi not examined. ENT: Oral mucosae without visible erythema, exudates, masses, or lesions. CARDIOVASCULAR: Regular rate and rhythm without murmurs, gallops, or rubs. No JVD. RESPIRATORY/CHEST: Symmetric, unlabored respirations. Rhonchi to auscultation. Breath sounds equal bilaterally. + occ wet cough GASTROINTESTINAL: Abdomen with VAC dressing in place serosang dc minimally distended quite tender to palpation + BS large amount of liquid brown stool from colostomy; more dark blood from mucoid fistula GENITOURINARY: Without palpable bladder distension. Hamlin catheter in place with clear yellow urine MUSCULOSKELETAL: Extremities without clubbing, cyanosis, No edema. 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 fungal endocarditis: repat 2 D echo negative for vegetations - no e/o intraabdominal source of fungemia on CT Floaters - no fungal endophthalmitis per ophthal eval Intraabd abscesses, small : poly Hill: no clin significance nosocomial PNA , KLEBSIELLA PNEUMONIAE ESBL POS Prognosis is not good in the view of persistent infection poor overall performance status and TPN dependence RECOMMENDATION cont fluconazole cont AMB, liposomal IV - Probably will need endocarditis Rx since she is not a candidate for MELVA -consider MELVA though given into fact that pt is not a candidate for cardiac surgery will defer the procedure for now cont ertapenem for ESBL + Kleb pneumo thru 11/16/16 (stop date entered) Follow cultures Follow clinically. Follow BMP, Mg,Phos while on Ampho B. d.w Micro: to send C.parapsilosis for susceptibility testing. If Cr continues to rise may need adjustment of treatment. If Cr continues to rise please consult Nephrology. Dorcas Carrillo MD Nov 15, 2016 18:02
[2016-11-15] MEDS: SODIUM CHLOR 0.9% 1000 ML INJ 1,000 ML IV SCH ×2 (18:33→21:13)
[2016-11-15] MEDS: CHLORHEXIDINE 0.12% (ORAL KIT) 15 ML CUP MT SCH (20:00)
[2016-11-15] MEDS: FAT EMULSION 20% INJ 250 ML (Twice weekly over 8 hours) IV-CENTRAL SCH (21:06)
[2016-11-15] MEDS: CLINIMIX E 5/25 2000 mL- >42 mls/hr IV-CENTRAL SCH ×3 (21:06)
[2016-11-15] MEDS: MIRTAZAPINE ODT 30 MG TAB PO SCH (21:13)
[2016-11-16] VITALS: BP 120/64; PULSE 72; RESP 17; TEMP 96.8; O2SAT 97
[2016-11-16] MEDS: HYDROmorphone HCL PF 1 MG/ML VIAL IV PUSH PRN ×4 (03:49→23:32)
[2016-11-16] MEDS: OXYBUTYNIN CHLORIDE 5 MG TAB PO SCH ×3 (06:29→23:32)
[2016-11-16] MEDS: SODIUM CHLOR 0.9% 1000 ML INJ 1,000 ML IV SCH ×3 (06:31→20:15)
[2016-11-16] MEDS: INSULIN ASPART SUPPLEMENTAL SCALE SQ SCH ×4 (06:32→20:15)
[2016-11-16 07:07] LABS: AUTOMATED NEUTROPHIL # 5.1 TH/MM3 (1.8-7.7); BASOPHIL # 0.1 TH/MM3 (0-0.2); BASOPHIL % 1.4 % (0.0-2.0); EOSINOPHIL # 0.6 TH/MM3 (0-0.4); EOSINOPHIL % 5.4 % (0.0-4.0); HEMATOCRIT 28.6 % (35.0-46.0); HEMO FLAGS DIFF FINAL; LYMPH % 35.8 % (9.0-44.0); LYMPHOCYTE # 3.7 TH/MM3 (1.0-4.8); MEAN CORPUSCULAR HEMOGLOBIN 29.5 PG (27.0-34.0); MEAN CORPUSCULAR HGB CONC 33.5 % (32.0-36.0); MONO % 7.9 % (0.0-8.0); NEUT % 49.5 % (16.0-70.0); PLATELET COUNT 402 TH/MM3 (150-450); RED BLOOD COUNT 3.25 MIL/MM3 (4.00-5.30); RED CELL DISTRIBUTION WIDTH 18.3 % (11.6-17.2); WHITE BLOOD COUNT 10.3 TH/MM3 (4.0-11.0)
[2016-11-16 07:15] LABS: ANION GAP 6 MEQ/L (5-15); AST (GOT) 38 U/L (15-37); BICARBONATE 35.4 MEQ/L (21.0-32.0); BLOOD UREA NITROGEN 47 MG/DL (7-18); CHLORIDE 99 MEQ/L (98-107); GLOMERULAR FILTRATION RATE 35 ML/MIN (>89); MAGNESIUM 2.2 MG/DL (1.5-2.5); POTASSIUM 3.2 MEQ/L (3.5-5.1); SODIUM (NA) 140 MEQ/L (136-145)
[2016-11-16 07:22] LABS: ALKALINE PHOSPHATASE 274 U/L (45-117); ALT (GPT) 25 U/L (10-53); TOTAL BILIRUBIN ADULT 0.4 MG/DL (0.2-1.0)
[2016-11-16 08:00] VITALS: BP 136/62; PULSE 91; RESP 17; TEMP 95.4; O2SAT 97
[2016-11-16] MEDS: CHLORHEXIDINE 0.12% (ORAL KIT) 15 ML CUP MT SCH ×2 (08:00→20:00)
[2016-11-16] MEDS: ZINC SULFATE 220 MG CAP PO SCH (08:22)
[2016-11-16] MEDS: DIPHENOXYLATE/ATROPINE 2.5 MG/0.025 MG/5 ML CUP PO SCH ×2 (08:22→20:13)
[2016-11-16] MEDS: RIVAROXABAN 15 MG TAB PO SCH (08:23)
[2016-11-16] MEDS: DULoxetine HCl DR 30 MG CAP PO SCH (08:23)
[2016-11-16] MEDS: FERROUS SULFATE 325 MG (65 MG ELEMENTAL IRON) TAB PO SCH (08:23)
[2016-11-16] MEDS: CHOLESTYRAMINE LIGHT 4 GM PACKAGE PO SCH ×2 (08:23→20:15)
[2016-11-16] MEDS: CALCIUM/VITAMIN D 250 MG/125 U TAB PO SCH ×2 (08:23→20:13)
[2016-11-16] MEDS: PROPRANOLOL HCL 40 MG TAB PO SCH ×2 (08:23→20:14)
[2016-11-16] MEDS: NYSTATIN 100,000 U/GM PWD 15 GM BTL TOPICAL SCH ×2 (08:24→20:11)
[2016-11-16] MEDS: POTASSIUM CL 40 MEQ/30 ML LIQ UDC PO SCH (08:24)
[2016-11-16] MEDS: SODIUM CHLORIDE 0.9% FLUSH 5 ML FLUSH IVF SCH ×2 (08:24→20:14)
--- NOTE | 2016-11-16 11:39 | PD.CAR.PN ---
CVT Progress Note Subjective/Hospital Course: 70-year-old female with a complex medical and surgical history of peripheral vascular disease and multiple related problems presents now status post BK amputation about a month half ago. Patient went to [facility] and apparently braced herself on the stump several times in bed in hit it against either floor or the chair not quite clear. Part of the stump opened up and at this point patient is dehiscence of skin deeper tissue seemed to be still intact. 06/16/16 Patient underwent yesterday debridement of the stump with wound VAC placement. The dehiscence is fortunately superficial involving skin and muscle in this as been debrided successfully while the rest of the tissues of bleeding and are viable. Wound VAC has been placed Cultures have been reviewed and antibiotics can be adjusted by medicine as appropriate We'll continue current care and patient should be able to go to [facility] with a wound VAC by Sunday Patient's nutritional status is very poor with a low albumen and prealbumin level and therefore nutritional evaluation and recommendations are requested I believe the patient is not taking sufficient by mouth in the [facility] and may need supplemental enteral or parenteral feedings at this point 06/17/16 I reviewed the nutritional parameters and patient's prealbumin and transferrin levels a critically low indicating severe malnutrition. Patient's healing is impaired and so is the rehabilitative potential. After reviewing to nutritional recommendations once these are made, we will decide whether patient needs an [id number] placed for additional parenteral nutrition for short bowel syndrome Stump is nice and clean with minimal drainage from the wound VAC 06/19/16 Still awaiting nutritional consult and evaluation for patient has short gut syndrome and will probably need additional parenteral feedings. If so patient will need [id number] placement for additional feedings Patient is taking excellent by mouth but despite that her nutritional status is poor and hence the healing issues Left BKA stump incision is clean and wound VAC is in place with minimal drainage and will need to be changed today Awaiting wound care to change the wound VAC. Infectious disease help is much appreciated 06/20/2016 Patient doing well at this time. Stump is clean and the wound VAC will be changed today Patient had [id number] placed by radiology for supplemental parenteral feedings. Grateful for the nutritional evaluation. Patient will be placed on TPN at about the 1500 non-protein calories a day split about 60-70% in glucose and about 30% in form of lipids Patient will likely have to be discharged on supplemental TPN in face of her short bowel syndrome 06/21/16 Patient is doing really well at this time She's taking good by mouth diet. 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 There is some granulation tissue which may eventually need to be debrided but at this point I would leave it alone. Stump wound VAC has been changed and this is clean and granulating nicely. Patient is currently on TPN which tolerating well. In face of her short bowel syndrome patient will need TPN after discharge from the hospital. Grateful to case management for making arrangements for the same 06/22/16 Vital signs stable patient is doing well. Her appetite has improved and patient is taking good by mouth diet and having regular bowel movements. The abdominal incision is completely healed and fistula has completely resolved. The BKA wound VAC has been changed and wound is clean and granulating nicely. [id number] is being used for additional parenteral feedings necessary and short bowel syndrome and patient will be discharged on TPN. 06/23/16 Patient underwent today change of the wound VAC and the wound is clean. Next with will be the last wound VAC change and after that I plan to take the patient to the OR for irrigation and closure of the wound by the middle of the next week. 06/24/16 Patient doing very well at this time she is in a good mood and taking by mouth diet well Unfortunately due to the short bowel syndrome she need supplemental TPN feedings at this time Stump is healed nicely there is a small scab anterior to it and this should allow to fall off on its own Once the arrangements are made for outpatient TPN patient will be able to be discharged Awaiting case management to make the arrangements for outpatient TPN 06/25/16 Vital signs stable Patient is awake and alert and oriented, taking by mouth diet very well Abdomen is soft and the colocutaneous fistula is completely closed The BKA stump has an eschar and a scab but I would leave this alone because underneath its healing nicely. Patient remains on TPN considering the short gut syndrome and will go home on the same Mild anemia is dilutional due to TPN administration and intravenous fluids and does not require therapy at this time 06/26/16 Vital signs stable Patient is awake and alert and oriented, taking by mouth diet very well Abdomen is soft and the colocutaneous fistula is completely closed The BKA stump has an eschar and a scab but I would leave this alone because underneath its healing nicely. Patient remains on TPN considering the short gut syndrome and will go home on the same Mild anemia is dilutional due to TPN administration and intravenous fluids and does not require therapy at this time 06/27/16 Wound VAC has been removed by me and the the entire stump is healed very nicely except a small area but an inch length at the very lateral portion of the incision were we going to put a very small wound VAC on for another week or so. Patient can transfer to rehabilitation at any time as long as she can get intravenous TPN in the process 06/28/16 Wound VAC has been removed by me and the the entire stump is healed very nicely except a small area but an inch length at the very lateral portion of the incision were we going to put a very small wound VAC on for another week or so. 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 I understand the difficulty this creates for case management to find her such an arrangement 06/29/16 Patient doing really well at this time taking good by mouth but due to the short bowel syndrome will require long-term TPN Stump is healing really nicely and the probably after this week we will remove the wound VAC and simply place wet-to-dry dressing and allow this to heal 06/30/16 Patient is doing well tolerates diet. Abdomen is soft with active bowel sounds Incisions are clean and dry Wound VAC last change will be next week and after that we going to remove the wound VAC and continue wet-to-dry dressing Stump is healing really nicely Due to TPN and other issues placement remains a problem 07/01/16 Abdomen soft and active bowel sounds Tolerates diet well Stump is clean and dry and I'll remove the wound VAC on Sunday after that patient will just be on wet-to-dry dressings until the stump heels Arrangements for discharge to difficult due to long-term TPN needs 07/03/16 Vital signs stable Stump is clean and wound VAC after next removal won't need to be applied again Patient will remain long-term on TPN and I'm waiting for case management to make discharge arrangements Will [facility] medicine kindly if patient can be transferred to medicine service at this time 07/14/16 Patient is a placement issue apparently is still in the hospital The left BKA stump is healed nicely except for very small air about 1 cm which is granulating in on the lateral aspect of the stump Apparently the enterocutaneous fistula was close for about month and a half and opened up 2 days ago draining some stool It should be noted that the bowel is quite close to the skin and patient is very thin and malnourished so it is not surprising that fistula opens and closes sporadically. With enteral and parenteral nutrition that should close but clearly patient is very frail and it could open up any time Nothing to add to care at this time 07/26/16 Discussed the patient with medical attending. She has systemic cutaneous herpes zoster and is on appropriate medications The drainage from anterior abdominal wall is very minimal however irritating to the skin of the abdominal wall in face of herpes and the nature of intestinal fluid. Just putting dressings will only worsen the situation so patient should be treated with the stoma and coverage of the skin. Unfortunately the colostomy material will not stick to the skin and the contents will leak underneath it. At point is best solution was due to apply Silvadene ointment daily and then dressing Patient's appetite is very poor sure refuses food and she remains on TPN although her GI tract is completely patent Her prognosis in general is for due to malnutrition short bowel syndrome and immune failure. 09/01/16 Patient seen at [facility]. Patient has tremendously improved in the last month or so. The rash she had has since disappeared I am not sure this was a herpetic rash or perhaps caused by zinc or selenium deficiency At this point patient is eating well and she is again about 15 pounds. Her short bowel syndrome as being managed adequately with improvement of by mouth intake and modification of the diet Abdomen is soft with active bowel sounds and the fistula has closed There is small amount of preperitoneal fat extruding from the abdomen incision. I debrided this at the bedside In the worse case scenario patient would have to go to the operating room to have this cauterized away and reclosed but I would certainly like to avoid this in this lady was finally recovering nicely 11/20/16 Last night patient was straining when going to bathroom and enterocutaneous fistula opened up again Patient is now draining stool over the last 24 hours. 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 She underwent several surgeries and it is a miracle that patient has survived all this. The fistulous tract has now opened and closed about 5 times since September last year when patient's first came and this is now another instance of the same. As far as the fistulous tract is concerned this patient is not a candidate for an open surgery due to malnutrition, short bowel syndrome in the anatomic considerations. Going into this abdomen with resultant multiple fistulas, damage to the remaining small bowel and likely of the patient Therefore the appropriate way to manage this as conservatively filled the fistula tracts closes again Physical examination reveals skin inferior to the fistula to be starting to get red again and irritated although it was nicely healed as stated in above note It should be noted that this is distal small bowel content and therefore fairly caustic so meticulous care has to be taken not to allow this to be in contact with the skin On my arrival one part of the fistula in the midline is covered with a colostomy bag while the stool is freely draining all over the patient's abdomen between the legs and on the bed I went into the room ostomy nurse to come with me and removed personally everything cleaned patient up with nursing assistance I said down with the house builder and the nurse and explained in detail how this should be covered and how the stoma should be structured in order to protect the skin Apparently large pieces of stoma skin adhesive material are not available here and let to be brought from [facility]. The same large pieces were used when patient first came to [place] and care was described in orders At this point meticulous care has to be taken in order to prevent skin damage and free leakage It is also imperative that the wound care gets involved in management of this patient 10/30/16 Patient had the spike a fever today to 101.8 White count 16,000 Abdomen is soft with active bowel sounds and ileostomy is working very well Bilateral breath sounds and no rhonchi or rales Wound VAC has been changed today and I'll look to the wound leg really looks nice and healing very nicely with good granulation tissue No signs of dehiscence I believe the fever spikes are part of the fungemia and unfortunately 30-50% of patients will develop systemic fungemia in this setting will succumb to the same despite maximum therapy Patient remains on micafungin Continue care 10/31/16 Abdomen is soft and active bowel sounds and incision is nice and granulating underneath the wound VAC Ileostomy working fine White count is coming down and patient hasn't had any fever spikes since placed on Diflucan and micafungin Unfortunately patient refuses to eat and also refuses to get out of bed Physical therapy and occupational therapy of trying to mobilize the patient but she will not cooperate She also refuses to take by mouth diet but drinks high caloric supplements at least Respiratory-gillette patient is doing well throughout the day and then 2 in the evening her sats started dropping to again improve later on Will order ABGs and perhaps do a CAT scan of the chest to assess for any effusions or any other possible causes for this Again patient is very ill with fungemia which carries high mortality and ICU patient's especially with immunosuppression accompanying the clinical picture 08/22/17 I today patient is doing okay She doesn't want to take any by mouth diet except high caloric supplements Abdomen is soft active bowel sounds ileostomy and colostomy clean and midline wound is healing nicely with a the wound VAC Bilateral breath sounds decreased over the both lung chaney consistent with bilateral pulmonary consolidation unlikely mu onset lower lobe pneumonia Patient is unwilling to get out of bed and does not participate in physical occupational therapy rather chased some out of the room Discussed the care with her quality assurance nurse Mrs. 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 Currently on amphotericin B and antibiotics Patient is refusing any by mouth diet and is refusing to get out of bed She will developed pneumonia and and up on the respirator again if she continues to refuse activity Midline incision wound VAC has been changed and appears to be clean and granulating nicely 11/07/16 Patient somewhat improved awake alert and oriented White count has normalized Abdomen is soft with active bowel sounds ileostomy working fine Midline incision is healing very well Patient refuses take by mouth diet except for occasional bites of something and ensure Nothing to add to care 11/08/16 Abdominal incision is clean and wound VAC is in place be changed tomorrow Ileostomy working fine Patient taking by mouth however refuses regular diet and only drinks fluids Remains afebrile at this time and infection seem to be under control Very hard to manage as far as physical therapy is concerned because patient refuses to get out of bed or participate in any therapy Have tried to explain to her the importance of physical therapy in order to get her back on her feet regain strength and mobilize as well as as a means to prevent pneumonia but patient will not get out of bed 11/13/16 Ileostomy is nice and clean working fine Unfortunately ileostomy bag got disconnected and the fluid leaked into the midline incision secondary closure site Therefore the wound VAC have to be removed wound washed and replaced It's quite difficult to protect the wounds in this situation where patient's abdomen so tiny that all the structures a sort of in close proximity I've discussed this with the wound care nurse and she was kind to change her wound VAC today Patient finally at half of her breakfast and half of her lunch today which is actually an improvement and I am happy that patient is eating more 11/14/16 All studies have normalized and cultures remain negative Patient started to take little more by mouth Abdomen is soft and ileostomy is working well The colostomy bag broke open yesterday and everything contents spilled over the midline incision according to the nurse At this point patient clearly does not need a wound VAC other than for the purposes of protecting the incision for the ileostomy and colostomy bag are leaking each time these are attached to the patient for some reason, so the only way to protect the wound at this time is with wound VAC Other than that wound is healing nicely Mac I would prefer patient not to have the wound VAC and the colostomy back to be properly applied rather than leaking every time 11/15/16 Vital signs stable Patient is awake alert and oriented Had little food today but generally refuses to eat more than a few bites Tolerates supplement feeds but will not take much of those either Abdomen is soft The midline incision is almost healed and the wound VAC has been placed mainly to protect the wound from spillage from the ileostomy while its healing It should be noted that patient's the creatinine has gone up a little bit and this is not quite clear as far as the cause for patient's well hydrated The antibiotic therapy and amphotericin would clearly be the first culprits to take on as far as the creatinine increase In addition patient has increased calcium level and even corrected calcium is high sodium order PTH level to assess for hyperparathyroidism which would not be very unusual in this situation 11/16/16 Patient doing very well at this time considering the complexity of her care Midline incision is clean and granulating nicely with a tiny wound VAC over it Well-functioning ileostomy and colostomy All the cultures are coming back negative and expert ID help and input from Dr. Carlos is greatly appreciated Patient had several days of elevated calcium level and PTH has been checked which is normal This may be due to excessive administration of calcium-containing products and calcium is coming back to normal now Patients who are sedated sure and bedridden will tend to have higher levels of calcium considering that sedation state will lead to osteoclastic activity and will certainly not promote osteoblastic activity Patient should probably transfer to [place] at this time for long-term care Objective: Vital Signs Date Time Temp Pulse Resp B/P Pulse Ox O2 Delivery O2 Flow Rate FiO2 11/16/16 08:00 95.4 91 17 136/62 97 11/16/16 00:00 96.8 72 17 120/64 97 11/15/16 21:00 Nasal Cannula 2.00 11/15/16 20:00 95.6 80 17 126/64 96 11/15/16 17:58 98 Nasal Cannula 3.00 11/15/16 16:00 96.0 83 17 115/59 98 11/15/16 12:00 96.3 82 17 119/60 96 Labs: Laboratory Tests Test 11/16/16 06:30 White Blood Count 10.3 TH/MM3 (4.0-11.0) Red Blood Count 3.25 MIL/MM3 (4.00-5.30) Hemoglobin 9.6 GM/DL (11.6-15.3) Hematocrit 28.6 % (35.0-46.0) Mean Corpuscular Volume 88.0 FL (80.0-100.0) Mean Corpuscular Hemoglobin 29.5 PG (27.0-34.0) Mean Corpuscular Hemoglobin 33.5 % Concent (32.0-36.0) Red Cell Distribution Width 18.3 % (11.6-17.2) Platelet Count 402 TH/MM3 (150-450) Mean Platelet Volume 8.6 FL (7.0-11.0) Neutrophils (%) (Auto) 49.5 % (16.0-70.0) Lymphocytes (%) (Auto) 35.8 % (9.0-44.0) Monocytes (%) (Auto) 7.9 % (0.0-8.0) Eosinophils (%) (Auto) 5.4 % (0.0-4.0) Basophils (%) (Auto) 1.4 % (0.0-2.0) Neutrophils # (Auto) 5.1 TH/MM3 (1.8-7.7) Lymphocytes # (Auto) 3.7 TH/MM3 (1.0-4.8) Monocytes # (Auto) 0.8 TH/MM3 (0-0.9) Eosinophils # (Auto) 0.6 TH/MM3 (0-0.4) Basophils # (Auto) 0.1 TH/MM3 (0-0.2) CBC Comment DIFF FINAL Differential Comment Sodium Level 140 MEQ/L (136-145) Potassium Level 3.2 MEQ/L (3.5-5.1) Chloride Level 99 MEQ/L (98-107) Carbon Dioxide Level 35.4 MEQ/L (21.0-32.0) Anion Gap 6 MEQ/L (5-15) Blood Urea Nitrogen 47 MG/DL (7-18) Creatinine 1.46 MG/DL (0.50-1.00) Estimat Glomerular Filtration 35 ML/MIN (>89) Rate Random Glucose 156 MG/DL (74-106) Calcium Level 11.4 MG/DL (8.5-10.1) Phosphorus Level 4.0 MG/DL (2.5-4.9) Magnesium Level 2.2 MG/DL (1.5-2.5) Total Bilirubin 0.4 MG/DL (0.2-1.0) Aspartate Amino Transf 38 U/L (15-37) (AST/SGOT) Alanine Aminotransferase 25 U/L (10-53) (ALT/SGPT) Alkaline Phosphatase 274 U/L (45-117) Total Protein 8.0 GM/DL (6.4-8.2) Albumin 1.9 GM/DL (3.4-5.0) Parathyroid Hormone (Intact) 68.0 PG/ML (12.4-76.8) Result Diagram: 11/16/1662911/[id number]/16629 Janice Olvera MD Nov 16, 2016 11:39
[2016-11-16] MEDS: ERTAPENEM INJ 1,000 MG in SODIUM CHLORIDE 0.9% INJ 100 ML IV SCH (11:54)
[2016-11-16 12:00] VITALS: BP 135/63; PULSE 83; RESP 17; TEMP 95.4; O2SAT 99
--- NOTE | 2016-11-16 12:56 | HHI.PR ---
Subjective Remarks Patient states she feels slightly better that yesterday but still no appetite denies cp/sob states that it is more her mind that is bothering her denies fevers/chills denies chest pain/cough creatinine trending down calcium trending down Objective Vitals Vital Signs Date Time Temp Pulse Resp B/P Pulse Ox O2 Delivery O2 Flow Rate FiO2 11/16/16 08:00 95.4 91 17 136/62 97 11/16/16 00:00 96.8 72 17 120/64 97 11/15/16 21:00 Nasal Cannula 2.00 11/15/16 20:00 95.6 80 17 126/64 96 11/15/16 17:58 98 Nasal Cannula 3.00 11/15/16 16:00 96.0 83 17 115/59 98 I/O 11/15/16 11/15/16 11/15/16 11/16/16 11/16/16 11/16/16 07:00 15:00 23:00 07:00 15:00 23:00 Intake Total 893 ml 200 ml 2112 ml 480 ml Output Total 650 ml 1300 ml 500 ml 1700 ml Balance 243 ml -1100 ml 1612 ml -1220 ml Intake Oral 240 ml 200 ml 240 ml 480 ml IV Total 653 ml 227 ml TPN/PPN 1645 ml Output Urine Total 650 ml 600 ml 500 ml 1100 ml Stool Total 700 ml 600 ml Drainage Total 0 ml Result Diagram: 11/16/16 0630 11/16/16 0630 Imaging Last Impressions PICC Line Insertion 11/10/16 0000 Signed Impressions: Service Date/Time: Thursday, November 10, 2016 17:07 - CONCLUSION: 1. Uncomplicated central venous Power PICC line placement. 2. The PICC line can be used immediately. Garrison Pascual MD Chest X-Ray 11/03/16 0000 Signed Impressions: Service Date/Time: Thursday, November 03, 2016 15:03 - CONCLUSION: Subclavian central venous catheter which is in good position. No evidence of pneumothorax. Improving lung aeration with decreasing congestion and bibasilar airspace disease. Kendall Lara MD Abdomen CT 11/01/16 0000 Signed Impressions: Service Date/Time: October 15:20 - CONCLUSION: No abnormalities are seen with respect to the liver or spleen. Previously noted small fluid collections adjacent to the small bowel loops within the right lower quadrant are no longer present. The configuration of the small bowel loops adjacent to the intra-abdominal wall at the site of mesh repair are consistent with areas of adhesion. No evidence of bowel obstruction.. Hoda Ash MD Abdomen/Pelvis CT 10/19/16 0000 Signed Impressions: Service Date/Time: September 15:10 - CONCLUSION: 1. There are 2 small rim-enhancing fluid collections in the right mid abdomen adjacent to the distal ileum that extends into the ileostomy. These measure 2.6 x 1.3 cm and 2.1 x 1.6 cm. These could represent infected fluid collections but are too small to place a drainage catheter. There is an additional small subcapsular fluid collection along the anterior left lobe of the liver. 2. Additionally, there is wall thickening of the distal ileal loops along with marked mesenteric edema. 3. There is a small volume of free fluid in the left upper quadrant around the spleen and in the pelvis. 4. There is a new small left pleural effusion with compressive atelectasis and right lower lobe volume loss versus airspace consolidation. Calixto Uriostegui MD Liver Ultrasound 07/12/16 0000 Signed Impressions: Service Date/Time: Tuesday, July 12, 2016 18:07 - CONCLUSION: 1. No acute abnormality demonstrated. 2. Heterogeneous liver without measurable mass. 3. Small and heterogeneous spleen without a measurable mass. 4. Cortical thinning and scarring of the right kidney. 5. Previous cholecystectomy. Calixto Woodruff MD Chest CT 07/09/16 0000 Signed Impressions: Service Date/Time: Saturday, July 09, 2016 14:43 - CONCLUSION: 1. Small right pleural effusion and minimal right basilar consolidation. 2. 6 mm left basilar nodule. Followup CT chest 6 months recommended. Florian Pepper MD Lower Extremity Ultrasound 06/25/16 0000 Signed Impressions: Service Date/Time: Saturday, June 25, 2016 15:56 - CONCLUSION: Negative exam with no evidence of deep venous thrombosis. Soft tissue edema. Mike Leija MD Port Line Insertion 06/20/16 0000 Signed Impressions: Service Date/Time: Monday, June 20, 2016 08:53 - CONCLUSION: Uncomplicated ultrasound and fluoroscopic guided implanted central venous port catheter placement as described in detail above. An 8 Wolof Power port was placed. Kevan Salgado Jr., MD Objective Remarks GENERAL: Lying in bed. Awake, alert. Appears comfortable. SKIN: Warm and dry. HEAD: Normocephalic. EYES: No scleral icterus. No injection or drainage. NECK: Supple, trachea midline. No JVD. MOUTH: Dry mucus membranes. CARDIOVASCULAR: Regular rate and rhythm without murmurs, gallops or rubs. RESPIRATORY: Breath sounds equal bilaterally. No accessory muscle use. GASTROINTESTINAL: right-sided fistula with green/brown liquid stool, as before. Left-sided fistula with no significant output. No rebound or guarding. Wound VAC in midline incision. MUSCULOSKELETAL: No cyanosis, or edema. BACK: Nontender without obvious deformity. No CVA tenderness. NEURO: No tremors. moves all extremities. Cranial nerves II through XII grossly intact. PSYCH: Slightly flattened affect. Procedures Left stump debridement by Dr. Hill on 06/15/16 Bedside debridement of preperitoneal fat that was protruding from the abdominal fistula 09/01/16 central line placement Exploratory laparotomy, resection of the anterior abdominal wall fistula tract, resection of the transverse colon to small bowel anastomosis, lysis of adhesions of the small bowel with repair of two enterotomies, right-sided ileostomy, left-sided mucous fistula and partial removal of a ventral hernia mesh. Medications and IVs Current Medications Medications (Trade) Dose Ordered Sig/Shira Route Start Time Stop Time Status Last Admin (Rocaltrol) 0.25 mcg DAILY PO 06/15/16 09:00 Hold 11/15/16 08:17 (Ferrous Sulfate) 325 mg DAILY PO 06/15/16 09:00 11/16/16 08:23 (Pill Splitter) 1 ea UNSCH PRN OTHER 06/14/16 18:00 (Heparin Central Flush) 500 units UNSCH IVF 06/20/16 11:30 10/06/16 12:24 (NS Flush) 5 ml UNSCH PRN IVF 06/20/16 11:30 11/10/16 05:40 (Heparin Central Flush) 250 units UNSCH PRN IVF 06/20/16 11:30 07/26/16 14:54 (Mag-Al Plus Susp Liq) 30 ml Q6H PRN PO 07/09/16 16:45 09/28/16 21:39 (Tylenol) 650 mg Q4H PRN PO 07/11/16 05:45 11/08/16 06:20 (Mycostatin Powder) 1 applic Q12HR TOPICAL 07/11/16 12:00 11/16/16 08:24 (Desitin 40% Oint) 1 applic UNSCH PRN TOPICAL 08/13/16 14:15 10/29/16 10:26 (Zinc Sulfate) 220 mg DAILY PO 09/04/16 09:00 11/16/16 08:22 (Cymbalta Dr) 30 mg DAILY PO 09/14/16 09:00 11/16/16 08:23 (Cardizem Cd) 240 mg DAILY PO 09/16/16 09:00 Hold 10/18/16 08:04 Gabapentin 300 mg 300 mg TID PO 10/06/16 13:00 Hold 10/09/16 13:39 Fat Emulsion Intravenous 250 ml @ 31.25 mls/ hr SuWe@20 IV-CENTRAL 10/08/16 20:00 11/15/16 21:06 (Mvi-12 Inj/ Folvite Inj/ Clinimix E 03/15) 2,010.2 ml @ 60 mls/hr Q24H IV-CENTRAL 10/08/16 20:00 11/15/16 21:06 (Zofran Inj) 4 mg Q6HR PRN IV PUSH 10/08/16 12:00 11/14/16 09:55 (NS Flush) 2 ml UNSCH PRN IVF 10/08/16 14:45 11/14/16 17:25 (NS Flush) 2 ml BID IVF 10/08/16 21:00 11/15/16 08:19 (Narcan Inj) 0.4 mg UNSCH PRN IV 10/08/16 14:45 (Peridex 0.12% Liq) 15 ml BID@08,20 MT 10/09/16 08:00 11/16/16 08:00 (Dilaudid Pf Inj) 0.5 mg Q3H PRN IV 10/11/16 12:00 11/06/16 22:30 (Dilaudid Pf Inj) 2 mg UNSCH PRN IV 10/12/16 10:45 11/03/16 15:03 (Ditropan) 2.5 mg Q8HR PO 10/14/16 14:41 11/16/16 06:29 (Lasix) 20 mg BID@09,18 PO 10/18/16 18:00 Hold 10/18/16 17:13 (Tylenol) 650 mg Q4H PRN PO 10/18/16 20:15 10/30/16 20:24 (Oscal-D 250-125) 500 mg BID PO 10/23/16 21:00 11/16/16 08:23 (D50w (Vial) Inj) 25 ml UNSCH PRN IV PUSH 10/24/16 16:15 (Glucagon Inj) 1 mg UNSCH PRN OTHER 10/24/16 16:15 Hydromorphone HCl 1 mg 1 mg Q3H PRN IV PUSH 11/03/16 16:00 11/16/16 09:04 (INVanz INJ/NS Inj) 100 ml @ 200 mls/hr Q24H IV 11/04/16 12:00 11/17/16 11:59 11/16/16 11:54 (Xarelto) 15 mg DAILY PO 11/08/16 09:00 11/16/16 08:23 (Questran Light Pkt) 4 gm Q12HR PO 11/10/16 11:45 11/16/16 08:23 (Inderal) 40 mg Q12HR PO 11/10/16 14:30 11/16/16 08:23 (KCl 40 Meq/30 ml Liq) 40 meq DAILY PO 11/10/16 14:30 11/16/16 08:24 (Lomotil 2.5-0.025 Mg Liq) 5 ml BID PO 11/10/16 21:00 11/16/16 08:22 Mirtazapine 30 mg 30 mg HS PO 11/12/16 21:00 11/15/16 21:13 Sodium Chloride 1,000 ml @ 150 mls/hr Q6H40M IV 11/15/16 17:30 11/16/16 11:54 Pharmacy Profile Note 0 ml @ 0 mls/hr UNSCH OTHER 11/15/16 18:00 (Diflucan 400 Mg Premix Bag) 200 ml @ 100 mls/hr Q24H IV 11/16/16 17:00 Urinary Catheter: Yes Assessment to: Continue Hamlin insert reason: Prolonged Immobilization Date of Insertion: Jun 20, 2016 Side: Left A/P Problem List: (1) Septic shock ICD Code: A41.9 Status: Resolved (2) Acute hypoxemic respiratory failure ICD Code: J96.01 Status: Resolved (3) Ischemic colitis ICD Code: K55.9 Status: Resolved (4) COPD (chronic obstructive pulmonary disease) ICD Code: J44.9 Status: Chronic (5) depression Status: Chronic (6) Peripheral neuropathy ICD Code: G62.9 Status: Chronic (7) Chronic diastolic (congestive) heart failure ICD Code: I50.32 Status: Chronic (8) ZIA (acute kidney injury) ICD Code: N17.9 Status: Resolved (9) emergent Ex Lap for ischemic bowel/perforation 10/08/16 Status: Resolved (10) Acute blood loss anemia ICD Code: D62 Status: Resolved Assessment and Plan Ms. Wilson is a pleasant 71 year old female who was admitted to the hospital in Oct 2015 due to ischemic bowel and subsequently underwent resection of large , small bowel and cholecystectomy. 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 Patient was discharged to SNF but returned to the hospital due to post surgical complications. She underwent left foot amputation and subsequently had a lot of post surgical complications requiring wound vac. Her surgeon (Dr. Olvera) determined that patient was too high risk for further surgical intervention. Patient was on TPN and after discussing with Dr. Hill we switched patient to PO diet. Based on patient's desires, we spoke to Dr. Hill regarding a second surgical opinion. Dr. Hill was kind enough to consult Dr. Grajeda who evaluated patient on 10/07/2016. On 10/08/2016, patient was transferred to the main campus after she complained of severe abdominal pain and CT scan showed ischemic bowel. Due to septic shock, patient was started on vancomycin and Cefepime prior to transfer. Septic shock/ Ischemic colitis S/p Ex lap, resection of anterior abdominal wall fistula tract, resection of transverse colon to small bowel anastomosis, right sided ileostomy, left sided mucous fistula and partial removal of a ventral hernia mesh 10/08/16. Has fungemia. Port and central line were removed. Chest abscess cultures positive for yeast. - follow up with surgery. - Echocardiogram cannot rule out vegetation. May need transesophageal echo, will defer to infectious disease. - cont ertapenem for ESBL + Kleb pneumo thru 11/16. - continue fluconazole and amphotericin B. Monitor BMP, MG and phos while on AMB - PT/OT. - DC amphotericin B, continue fluconazole as per infectious disease. Case discussed with Dr. Carrillo from ID. Malnutrition S/t bowel surgery. On TPN. Has a lot of stool output. Improved on Lomotil. - encourage PO intake. - follow up with dietary. - continue TPN. - GI consult appreciated. Trial of Lomotil. - continue Cholestiramine, Patient should not be started on gattex unless she can continue with it after discharge. - COPD/ Acute hypoxemic respiratory failure S/p extubation on 10/10/2016. - now resolved - Continue bronchodilators, incentive spirometry. - On O2 3liters nasal canula on 11/13 Acute blood loss anemia S/p 4 units of PRBCs on 10/08/2016. Hemoglobin continues to be stable. - Monitor as necessary. Diabetes mellitus On TPN. - Continue sliding scale with insulin novolog. - Blood sugars stable. Tremors Ongoing for the past year. - trial of propranolol. Improved. - will need neuro work-up as an outpt. - No evidence of tremors. Delirium The pt endorses intermittent confusion. - frequent reorientation. - treat infection as above. - Patient seems more alert today. Depression On Remeron and Celexa. - Continue Remeron - continue Celexa. ZIA Likely due to prerenal azotemia. Creatinine trending down after IV fluid administration. Creatinine down to 1.46 -1.55. Continue IV fluid administration in the form of normal saline. Continue to monitor BUN/creatinine, avoid nephrotoxins, strict I's and O's. Renally adjust her antibiotics and medications. Contraction alkalosis Due to dehydration. Continue IV fluids. CO2 is trending down from 39.3-35.4. Hypercalcemia Hyperglycemia due to dehydration and possible vitamin D intoxication. Continue to hold vitamin D. Calcium level is trending down from 12.3-11.4, continue to monitor BMP. Continue IV fluids in the form of normal saline. PTH intact 68. Hyperphosphatemia possibly due to Vitamin D toxicity/ decrease excretion of phosphorus due to ZIA. Improving with IV fluids and holding vitamin D. PPx: Xarelto; Protonix. Prophylaxis Lovenox/PPI Discharge Planning Continue to monitor in the medical floor Jeff Carey MD Nov 16, 2016 12:56
[2016-11-16] MEDS: FLUCONAZOLE 400 MG PREMIX BAG 200 ML IV SCH (16:08)
[2016-11-16] MEDS ORDERED: FLUCONAZOLE 200 MG PREMIX BAG 100 ML IV SCH (17:00)
[2016-11-16] MEDS: ONDANSETRON HCL 4 MG/2 ML VIAL IV PUSH PRN (18:22)
--- NOTE | 2016-11-16 19:55 | HHI.IDPN ---
Subjective Subjective Remarks Patient known to ID service. Overnight events reviewed with RN. Chart reviewed. remains on NC O2 On TPN minimal po Last blood clx negaive - final Antibiotics fluconazol lip AMB Lines Port: removed Past Medical History Ischemic Bowel w/ Resection and development of Enterocutaneous Fistula Short gut syndrome Asthma Depression and COPD Past Surgical History Bowel Resection 11/13/15 and 11/26/15 Left BKA Right Mastectomy Hysterectomy, Allergies: Coded Allergies: Levaquin (Verified Allergy, Severe, Edema, 05/29/16) Penicillin (Unverified Allergy, Intermediate, hives, 03/10/16) Sulfa (Unverified Allergy, Intermediate, hives, 03/10/16) *MDRO Multi-Drug Resistant Organism (Verified Adverse Reaction, Unknown, ) ESBL+Klebsiella (leg) - 06/15/16; (sputum) - 11/01/16 Objective . Vital Signs Date Time Temp Pulse Resp B/P Pulse Ox O2 Delivery O2 Flow Rate FiO2 11/16/16 12:00 95.4 83 17 135/63 99 11/16/16 10:36 Nasal Cannula 3.00 11/16/16 08:00 95.4 91 17 136/62 97 11/16/16 00:00 96.8 72 17 120/64 97 11/15/16 21:00 Nasal Cannula 2.00 11/15/16 20:00 95.6 80 17 126/64 96 11/15/16 11/15/16 11/16/16 15:00 23:00 07:00 Intake Total 200 ml 2112 ml 480 ml Output Total 1300 ml 500 ml 1700 ml Balance -1100 ml 1612 ml -1220 ml Intake Oral 200 ml 240 ml 480 ml IV Total 227 ml TPN/PPN 1645 ml Output Urine Total 600 ml 500 ml 1100 ml Stool Total 700 ml 600 ml . Laboratory Tests Test 11/15/16 11/15/16 11/16/16 05:55 10:10 06:30 White Blood Count TH/MM3 10.4 TH/MM3 10.3 TH/MM3 Red Blood Count MIL/MM3 3.52 MIL/MM3 3.25 MIL/MM3 Hemoglobin GM/DL 10.1 GM/DL 9.6 GM/DL Hematocrit % 30.8 % 28.6 % Mean Corpuscular Volume FL 87.5 FL 88.0 FL Mean Corpuscular Hemoglobin PG 28.6 PG 29.5 PG Mean Corpuscular Hemoglobin % 32.8 % 33.5 % Concent Red Cell Distribution Width % 18.2 % 18.3 % Platelet Count TH/MM3 435 TH/MM3 402 TH/MM3 Mean Platelet Volume FL 8.5 FL 8.6 FL Neutrophils (%) (Auto) % 42.7 % 49.5 % Lymphocytes (%) (Auto) % 37.9 % 35.8 % Monocytes (%) (Auto) % 11.3 % 7.9 % Eosinophils (%) (Auto) % 7.6 % 5.4 % Basophils (%) (Auto) % 0.5 % 1.4 % Neutrophils # (Auto) TH/MM3 4.4 TH/MM3 5.1 TH/MM3 Lymphocytes # (Auto) TH/MM3 3.9 TH/MM3 3.7 TH/MM3 Monocytes # (Auto) TH/MM3 1.2 TH/MM3 0.8 TH/MM3 Eosinophils # (Auto) TH/MM3 0.8 TH/MM3 0.6 TH/MM3 Basophils # (Auto) TH/MM3 0.0 TH/MM3 0.1 TH/MM3 CBC Comment DIFF FINAL DIFF FINAL Differential Comment Hematology Comments Laboratory Tests Test 11/15/16 11/16/16 10:10 06:30 Sodium Level 141 MEQ/L 140 MEQ/L Potassium Level 3.6 MEQ/L 3.2 MEQ/L Chloride Level 98 MEQ/L 99 MEQ/L Carbon Dioxide Level 39.3 MEQ/L 35.4 MEQ/L Anion Gap 4 MEQ/L 6 MEQ/L Blood Urea Nitrogen 50 MG/DL 47 MG/DL Creatinine 1.55 MG/DL 1.46 MG/DL Estimat Glomerular Filtration 33 ML/MIN 35 ML/MIN Rate Random Glucose 83 MG/DL 156 MG/DL Calcium Level 12.3 MG/DL 11.4 MG/DL Protein Corrected Calcium 11.4 MG/DL Phosphorus Level 5.2 MG/DL 4.0 MG/DL Magnesium Level 2.5 MG/DL 2.2 MG/DL Total Bilirubin 0.6 MG/DL 0.4 MG/DL Aspartate Amino Transf 38 U/L 38 U/L (AST/SGOT) Alanine Aminotransferase 27 U/L 25 U/L (ALT/SGPT) Alkaline Phosphatase 294 U/L 274 U/L Total Protein 8.4 GM/DL 8.0 GM/DL Albumin 2.1 GM/DL 1.9 GM/DL Parathyroid Hormone (Intact) 68.0 PG/ML Imaging Last Impressions Chest X-Ray 11/03/16 0000 Signed Impressions: Service Date/Time: Thursday, November 03, 2016 15:03 - CONCLUSION: Subclavian central venous catheter which is in good position. No evidence of pneumothorax. Improving lung aeration with decreasing congestion and bibasilar airspace disease. Kendall Lara MD Abdomen CT 11/01/16 0000 Signed Impressions: Service Date/Time: October 15:20 - CONCLUSION: No abnormalities are seen with respect to the liver or spleen. Previously noted small fluid collections adjacent to the small bowel loops within the right lower quadrant are no longer present. The configuration of the small bowel loops adjacent to the intra-abdominal wall at the site of mesh repair are consistent with areas of adhesion. No evidence of bowel obstruction.. Hoda Ash MD Abdomen/Pelvis CT 10/19/16 0000 Signed Impressions: Service Date/Time: September 15:10 - CONCLUSION: 1. There are 2 small rim-enhancing fluid collections in the right mid abdomen adjacent to the distal ileum that extends into the ileostomy. These measure 2.6 x 1.3 cm and 2.1 x 1.6 cm. These could represent infected fluid collections but are too small to place a drainage catheter. There is an additional small subcapsular fluid collection along the anterior left lobe of the liver. 2. Additionally, there is wall thickening of the distal ileal loops along with marked mesenteric edema. 3. There is a small volume of free fluid in the left upper quadrant around the spleen and in the pelvis. 4. There is a new small left pleural effusion with compressive atelectasis and right lower lobe volume loss versus airspace consolidation. Calixto Uriostegui MD Liver Ultrasound 07/12/16 0000 Signed Impressions: Service Date/Time: Tuesday, July 12, 2016 18:07 - CONCLUSION: 1. No acute abnormality demonstrated. 2. Heterogeneous liver without measurable mass. 3. Small and heterogeneous spleen without a measurable mass. 4. Cortical thinning and scarring of the right kidney. 5. Previous cholecystectomy. Calixto Woodruff MD Chest CT 07/09/16 0000 Signed Impressions: Service Date/Time: Saturday, July 09, 2016 14:43 - CONCLUSION: 1. Small right pleural effusion and minimal right basilar consolidation. 2. 6 mm left basilar nodule. Followup CT chest 6 months recommended. Florian Pepepr MD Lower Extremity Ultrasound 06/25/16 0000 Signed Impressions: Service Date/Time: Saturday, June 25, 2016 15:56 - CONCLUSION: Negative exam with no evidence of deep venous thrombosis. Soft tissue edema. Mike Leija MD Port Line Insertion 06/20/16 0000 Signed Impressions: Service Date/Time: Monday, June 20, 2016 08:53 - CONCLUSION: Uncomplicated ultrasound and fluoroscopic guided implanted central venous port catheter placement as described in detail above. An 8 German Power port was placed. Kevan Salgado Jr., MD Physical Exam CONSTITUTIONAL/GENERAL: fully awake and alert ill appearing Conversant TUBES/LINES/DRAINS: R SCV cath removed PORT incision is dry and clean at previous PORT site, no skin changes SKIN: No jaundice, rashes, or lesions. Skin temperature appropriate. Not diaphoretic. HEAD: Atraumatic. Normocephalic. EYES: Pupils equal and round and reactive. Extraocular motions intact. No scleral icterus. No injection or drainage. Fundi not examined. ENT: Oral mucosae without visible erythema, exudates, masses, or lesions. CARDIOVASCULAR: Regular rate and rhythm without murmurs, gallops, or rubs. No JVD. RESPIRATORY/CHEST: Symmetric, unlabored respirations. Rhonchi to auscultation. Breath sounds equal bilaterally. + occ wet cough GASTROINTESTINAL: Abdomen with VAC dressing in place serosang dc minimally distended quite tender to palpation + BS large amount of liquid brown stool from colostomy; more dark blood from mucoid fistula GENITOURINARY: Without palpable bladder distension. Hamlin catheter in place with clear yellow urine MUSCULOSKELETAL: Extremities without clubbing, cyanosis, No edema. 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 fungal endocarditis: repat 2 D echo negative for vegetations - no e/o intraabdominal source of fungemia on CT Floaters - no fungal endophthalmitis per ophthal eval Intraabd abscesses, small : poly Hill: no clin significance nosocomial PNA , KLEBSIELLA PNEUMONIAE ESBL POS Prognosis is not good in the view of persistent infection poor overall performance status and TPN dependence RECOMMENDATION cont fluconazole (follow CMP once a week to check on LFTs) per plan for total of 6 weeks (tentative stop date Nov) DC AMB, liposomal IV - Probably will need endocarditis Rx since she is not a candidate for MELVA -consider MELVA though given into fact that pt is not a candidate for cardiac surgery will defer the procedure for now Follow cultures Follow clinically. Will sign off please call back if any change in clinical condition or questions. Dorcas Carrillo MD Nov 16, 2016 19:55
[2016-11-16 20:00] VITALS: BP 138/71; PULSE 79; RESP 20; TEMP 97.8; O2SAT 99
[2016-11-16] MEDS: CLINIMIX E 5/25 2000 mL- >42 mls/hr IV-CENTRAL SCH ×3 (20:08)
[2016-11-16] MEDS: MIRTAZAPINE ODT 30 MG TAB PO SCH (20:14)
[2016-11-17] VITALS (7 sets, daily range): BP systolic 110–139; BP diastolic 51–67; PULSE 76–96; RESP 14–20; TEMP 97.3–98.5; O2SAT 91–100
[2016-11-17] MEDS: SODIUM CHLOR 0.9% 1000 ML INJ 1,000 ML IV SCH ×3 (03:03→18:42)
[2016-11-17] MEDS: HYDROmorphone HCL PF 1 MG/ML VIAL IV PUSH PRN (05:38)
[2016-11-17] MEDS: OXYBUTYNIN CHLORIDE 5 MG TAB PO SCH ×3 (05:38→21:18)
[2016-11-17] MEDS: INSULIN ASPART SUPPLEMENTAL SCALE SQ SCH ×3 (05:38→21:00)
[2016-11-17] MEDS: CHLORHEXIDINE 0.12% (ORAL KIT) 15 ML CUP MT SCH ×2 (08:00→20:00)
[2016-11-17] MEDS: POTASSIUM CL 40 MEQ/30 ML LIQ UDC PO SCH (09:51)
[2016-11-17] MEDS: DIPHENOXYLATE/ATROPINE 2.5 MG/0.025 MG/5 ML CUP PO SCH ×2 (09:51→21:21)
[2016-11-17] MEDS: CALCIUM/VITAMIN D 250 MG/125 U TAB PO SCH ×2 (09:51→21:18)
[2016-11-17] MEDS: RIVAROXABAN 15 MG TAB PO SCH (09:51)
[2016-11-17] MEDS: PROPRANOLOL HCL 40 MG TAB PO SCH ×2 (09:52→21:18)
[2016-11-17] MEDS: FERROUS SULFATE 325 MG (65 MG ELEMENTAL IRON) TAB PO SCH (09:53)
[2016-11-17] MEDS: ZINC SULFATE 220 MG CAP PO SCH (09:53)
[2016-11-17] MEDS: DULoxetine HCl DR 30 MG CAP PO SCH (09:53)
[2016-11-17] MEDS: CHOLESTYRAMINE LIGHT 4 GM PACKAGE PO SCH ×2 (09:54→21:20)
[2016-11-17] MEDS: NYSTATIN 100,000 U/GM PWD 15 GM BTL TOPICAL SCH ×2 (09:55→21:19)
[2016-11-17] MEDS: SODIUM CHLORIDE 0.9% FLUSH 5 ML FLUSH IVF SCH ×2 (09:56→21:00)
[2016-11-17] MEDS: FLUCONAZOLE 400 MG PREMIX BAG 200 ML IV SCH (18:42)
[2016-11-17 20:15] LABS: AUTOMATED NEUTROPHIL # 3.9 TH/MM3 (1.8-7.7); BASOPHIL # 0.1 TH/MM3 (0-0.2); BASOPHIL % 0.9 % (0.0-2.0); EOSINOPHIL # 0.6 TH/MM3 (0-0.4); EOSINOPHIL % 7.5 % (0.0-4.0); HEMATOCRIT 28.7 % (35.0-46.0); HEMO FLAGS DIFF FINAL; LYMPH % 33.6 % (9.0-44.0); LYMPHOCYTE # 2.8 TH/MM3 (1.0-4.8); MEAN CELL VOLUME 88.9 FL (80.0-100.0); MEAN CORPUSCULAR HEMOGLOBIN 29.5 PG (27.0-34.0); MEAN CORPUSCULAR HGB CONC 33.2 % (32.0-36.0); MONO % 10.5 % (0.0-8.0); NEUT % 47.5 % (16.0-70.0); PLATELET COUNT 362 TH/MM3 (150-450); RED BLOOD COUNT 3.23 MIL/MM3 (4.00-5.30); RED CELL DISTRIBUTION WIDTH 17.9 % (11.6-17.2); WHITE BLOOD COUNT 8.3 TH/MM3 (4.0-11.0)
[2016-11-17 20:30] LABS: ANION GAP 5 MEQ/L (5-15); AST (GOT) 44 U/L (15-37); BICARBONATE 32.2 MEQ/L (21.0-32.0); BLOOD UREA NITROGEN 37 MG/DL (7-18); CHLORIDE 110 MEQ/L (98-107); GLOMERULAR FILTRATION RATE 40 ML/MIN (>89); MAGNESIUM 2.1 MG/DL (1.5-2.5); POTASSIUM 3.1 MEQ/L (3.5-5.1); SODIUM (NA) 147 MEQ/L (136-145)
[2016-11-17 20:35] LABS: ALKALINE PHOSPHATASE 254 U/L (45-117); ALT (GPT) 28 U/L (10-53); TOTAL BILIRUBIN ADULT 0.5 MG/DL (0.2-1.0)
[2016-11-17] MEDS: CLINIMIX E 5/25 2000 mL- >42 mls/hr IV-CENTRAL SCH ×3 (21:16)
[2016-11-17] MEDS: MIRTAZAPINE ODT 30 MG TAB PO SCH (21:17)
[2016-11-17] MEDS: HYDROmorphone HCL PF 1 MG/ML VIAL IV PRN (22:03)
[2016-11-18] VITALS (8 sets, daily range): BP systolic 100–144; BP diastolic 46–76; PULSE 82–104; RESP 16–26; TEMP 97.6–99; O2SAT 91–100
[2016-11-18] MEDS: SODIUM CHLOR 0.9% 1000 ML INJ 1,000 ML IV SCH ×2 (00:20→06:09)
[2016-11-18] MEDS: HYDROmorphone HCL PF 1 MG/ML VIAL IV PUSH PRN ×3 (05:52→15:24)
[2016-11-18] MEDS: ONDANSETRON HCL 4 MG/2 ML VIAL IV PUSH PRN ×3 (05:53→21:37)
[2016-11-18] MEDS: OXYBUTYNIN CHLORIDE 5 MG TAB PO SCH ×3 (05:53→21:54)
[2016-11-18] MEDS: INSULIN ASPART SUPPLEMENTAL SCALE SQ SCH ×3 (06:54→16:14)
[2016-11-18] MEDS: CHLORHEXIDINE 0.12% (ORAL KIT) 15 ML CUP MT SCH ×2 (07:13→20:00)
[2016-11-18 07:25] LABS: AUTOMATED NEUTROPHIL # 3.4 TH/MM3 (1.8-7.7); BASOPHIL # 0.1 TH/MM3 (0-0.2); BASOPHIL % 1.5 % (0.0-2.0); EOSINOPHIL # 0.5 TH/MM3 (0-0.4); EOSINOPHIL % 6.7 % (0.0-4.0); HEMATOCRIT 28.6 % (35.0-46.0); HEMO FLAGS DIFF FINAL; LYMPH % 40.6 % (9.0-44.0); LYMPHOCYTE # 3.3 TH/MM3 (1.0-4.8); MEAN CELL VOLUME 88.7 FL (80.0-100.0); MEAN CORPUSCULAR HEMOGLOBIN 28.9 PG (27.0-34.0); MEAN CORPUSCULAR HGB CONC 32.5 % (32.0-36.0); MONO % 9.4 % (0.0-8.0); NEUT % 41.8 % (16.0-70.0); PLATELET COUNT 374 TH/MM3 (150-450); RED BLOOD COUNT 3.22 MIL/MM3 (4.00-5.30); RED CELL DISTRIBUTION WIDTH 18.6 % (11.6-17.2)
[2016-11-18 07:38] LABS: ALKALINE PHOSPHATASE 253 U/L (45-117); ALT (GPT) 25 U/L (10-53); ANION GAP 7 MEQ/L (5-15); AST (GOT) 47 U/L (15-37); BICARBONATE 30.2 MEQ/L (21.0-32.0); BLOOD UREA NITROGEN 34 MG/DL (7-18); CHLORIDE 110 MEQ/L (98-107); GLOMERULAR FILTRATION RATE 39 ML/MIN (>89); MAGNESIUM 2.1 MG/DL (1.5-2.5); SODIUM (NA) 147 MEQ/L (136-145); TOTAL BILIRUBIN ADULT 0.5 MG/DL (0.2-1.0)
[2016-11-18 07:57] LABS: POTASSIUM 2.9 MEQ/L (3.5-5.1)
[2016-11-18] MEDS: POTASSIUM CL 40 MEQ/30 ML LIQ UDC PO SCH (08:37)
[2016-11-18] MEDS: CHOLESTYRAMINE LIGHT 4 GM PACKAGE PO SCH ×2 (08:38→21:00)
[2016-11-18] MEDS: FERROUS SULFATE 325 MG (65 MG ELEMENTAL IRON) TAB PO SCH (08:38)
[2016-11-18] MEDS: PROPRANOLOL HCL 40 MG TAB PO SCH ×2 (08:38→21:00)
[2016-11-18] MEDS: DULoxetine HCl DR 30 MG CAP PO SCH (08:38)
[2016-11-18] MEDS: RIVAROXABAN 15 MG TAB PO SCH (08:38)
[2016-11-18] MEDS: DIPHENOXYLATE/ATROPINE 2.5 MG/0.025 MG/5 ML CUP PO SCH ×2 (08:38→21:00)
[2016-11-18] MEDS: CALCIUM/VITAMIN D 250 MG/125 U TAB PO SCH ×2 (08:38→21:00)
[2016-11-18] MEDS: ZINC SULFATE 220 MG CAP PO SCH (08:38)
[2016-11-18] MEDS: NYSTATIN 100,000 U/GM PWD 15 GM BTL TOPICAL SCH ×2 (08:39→21:47)
[2016-11-18] MEDS: SODIUM CHLORIDE 0.9% FLUSH 5 ML FLUSH IVF SCH ×2 (08:39→21:38)
[2016-11-18] MEDS ORDERED: POTASSIUM CHLORIDE 20 MEQ CONTROLLED RELEASE TAB PO ONE (08:45)
[2016-11-18] MEDS: POTASSIUM CHLOR 20 MEQ PREMIX 100 ML IV SCH (08:49)
--- NOTE | 2016-11-18 10:59 | PD.CAR.PN ---
CVT Progress Note Subjective/Hospital Course: 70-year-old female with a complex medical and surgical history of peripheral vascular disease and multiple related problems presents now status post BK amputation about a month half ago. Patient went to assisted and apparently braced herself on the stump several times in bed in hit it against either floor or the chair not quite clear. Part of the stump opened up and at this point patient is dehiscence of skin deeper tissue seemed to be still intact. 06/16/16 Patient underwent yesterday debridement of the stump with wound VAC placement. The dehiscence is fortunately superficial involving skin and muscle in this as been debrided successfully while the rest of the tissues of bleeding and are viable. Wound VAC has been placed Cultures have been reviewed and antibiotics can be adjusted by medicine as appropriate We'll continue current care and patient should be able to go to assisted with a wound VAC by Sunday Patient's nutritional status is very poor with a low albumen and prealbumin level and therefore nutritional evaluation and recommendations are requested I believe the patient is not taking sufficient by mouth in the assisted and may need supplemental enteral or parenteral feedings at this point 06/17/16 I reviewed the nutritional parameters and patient's prealbumin and transferrin levels a critically low indicating severe malnutrition. Patient's healing is impaired and so is the rehabilitative potential. After reviewing to nutritional recommendations once these are made, we will decide whether patient needs an [id number] placed for additional parenteral nutrition for short bowel syndrome Stump is nice and clean with minimal drainage from the wound VAC 06/19/16 Still awaiting nutritional consult and evaluation for patient has short gut syndrome and will probably need additional parenteral feedings. If so patient will need [id number] placement for additional feedings Patient is taking excellent by mouth but despite that her nutritional status is poor and hence the healing issues Left BKA stump incision is clean and wound VAC is in place with minimal drainage and will need to be changed today Awaiting wound care to change the wound VAC. Infectious disease help is much appreciated 06/20/2016 Patient doing well at this time. Stump is clean and the wound VAC will be changed today Patient had [id number] placed by radiology for supplemental parenteral feedings. Grateful for the nutritional evaluation. Patient will be placed on TPN at about the 1500 non-protein calories a day split about 60-70% in glucose and about 30% in form of lipids Patient will likely have to be discharged on supplemental TPN in face of her short bowel syndrome 06/21/16 Patient is doing really well at this time She's taking good by mouth diet. 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 There is some granulation tissue which may eventually need to be debrided but at this point I would leave it alone. Stump wound VAC has been changed and this is clean and granulating nicely. Patient is currently on TPN which tolerating well. In face of her short bowel syndrome patient will need TPN after discharge from the hospital. Grateful to case management for making arrangements for the same 06/22/16 Vital signs stable patient is doing well. Her appetite has improved and patient is taking good by mouth diet and having regular bowel movements. The abdominal incision is completely healed and fistula has completely resolved. The BKA wound VAC has been changed and wound is clean and granulating nicely. Kllzpt-[id number] is being used for additional parenteral feedings necessary and short bowel syndrome and patient will be discharged on TPN. 06/23/16 Patient underwent today change of the wound VAC and the wound is clean. Next with will be the last wound VAC change and after that I plan to take the patient to the OR for irrigation and closure of the wound by the middle of the next week. 06/24/16 Patient doing very well at this time she is in a good mood and taking by mouth diet well Unfortunately due to the short bowel syndrome she need supplemental TPN feedings at this time Stump is healed nicely there is a small scab anterior to it and this should allow to fall off on its own Once the arrangements are made for outpatient TPN patient will be able to be discharged Awaiting case management to make the arrangements for outpatient TPN 06/25/16 Vital signs stable Patient is awake and alert and oriented, taking by mouth diet very well Abdomen is soft and the colocutaneous fistula is completely closed The BKA stump has an eschar and a scab but I would leave this alone because underneath its healing nicely. Patient remains on TPN considering the short gut syndrome and will go home on the same Mild anemia is dilutional due to TPN administration and intravenous fluids and does not require therapy at this time 06/26/16 Vital signs stable Patient is awake and alert and oriented, taking by mouth diet very well Abdomen is soft and the colocutaneous fistula is completely closed The BKA stump has an eschar and a scab but I would leave this alone because underneath its healing nicely. Patient remains on TPN considering the short gut syndrome and will go home on the same Mild anemia is dilutional due to TPN administration and intravenous fluids and does not require therapy at this time 06/27/16 Wound VAC has been removed by me and the the entire stump is healed very nicely except a small area but an inch length at the very lateral portion of the incision were we going to put a very small wound VAC on for another week or so. Patient can transfer to rehabilitation at any time as long as she can get intravenous TPN in the process 06/28/16 Wound VAC has been removed by me and the the entire stump is healed very nicely except a small area but an inch length at the very lateral portion of the incision were we going to put a very small wound VAC on for another week or so. 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 I understand the difficulty this creates for case management to find her such an arrangement 06/29/16 Patient doing really well at this time taking good by mouth but due to the short bowel syndrome will require long-term TPN Stump is healing really nicely and the probably after this week we will remove the wound VAC and simply place wet-to-dry dressing and allow this to heal 06/30/16 Patient is doing well tolerates diet. Abdomen is soft with active bowel sounds Incisions are clean and dry Wound VAC last change will be next week and after that we going to remove the wound VAC and continue wet-to-dry dressing Stump is healing really nicely Due to TPN and other issues placement remains a problem 07/01/16 Abdomen soft and active bowel sounds Tolerates diet well Stump is clean and dry and I'll remove the wound VAC on Sunday after that patient will just be on wet-to-dry dressings until the stump heels Arrangements for discharge to difficult due to long-term TPN needs 07/03/16 Vital signs stable Stump is clean and wound VAC after next removal won't need to be applied again Patient will remain long-term on TPN and I'm waiting for case management to make discharge arrangements Will [facility] medicine kindly if patient can be transferred to medicine service at this time 07/14/16 Patient is a placement issue apparently is still in the hospital The left BKA stump is healed nicely except for very small air about 1 cm which is granulating in on the lateral aspect of the stump Apparently the enterocutaneous fistula was close for about month and a half and opened up 2 days ago draining some stool It should be noted that the bowel is quite close to the skin and patient is very thin and malnourished so it is not surprising that fistula opens and closes sporadically. With enteral and parenteral nutrition that should close but clearly patient is very frail and it could open up any time Nothing to add to care at this time 07/26/16 Discussed the patient with medical attending. She has systemic cutaneous herpes zoster and is on appropriate medications The drainage from anterior abdominal wall is very minimal however irritating to the skin of the abdominal wall in face of herpes and the nature of intestinal fluid. Just putting dressings will only worsen the situation so patient should be treated with the stoma and coverage of the skin. Unfortunately the colostomy material will not stick to the skin and the contents will leak underneath it. At point is best solution was due to apply Silvadene ointment daily and then dressing Patient's appetite is very poor sure refuses food and she remains on TPN although her GI tract is completely patent Her prognosis in general is for due to malnutrition short bowel syndrome and immune failure. 09/01/16 Patient seen at [facility]. Patient has tremendously improved in the last month or so. The rash she had has since disappeared I am not sure this was a herpetic rash or perhaps caused by zinc or selenium deficiency At this point patient is eating well and she is again about 15 pounds. Her short bowel syndrome as being managed adequately with improvement of by mouth intake and modification of the diet Abdomen is soft with active bowel sounds and the fistula has closed There is small amount of preperitoneal fat extruding from the abdomen incision. I debrided this at the bedside In the worse case scenario patient would have to go to the operating room to have this cauterized away and reclosed but I would certainly like to avoid this in this lady was finally recovering nicely 11/20/16 Last night patient was straining when going to bathroom and enterocutaneous fistula opened up again Patient is now draining stool over the last 24 hours. 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 She underwent several surgeries and it is a miracle that patient has survived all this. The fistulous tract has now opened and closed about 5 times since September last year when patient's first came and this is now another instance of the same. As far as the fistulous tract is concerned this patient is not a candidate for an open surgery due to malnutrition, short bowel syndrome in the anatomic considerations. Going into this abdomen with resultant multiple fistulas, damage to the remaining small bowel and likely of the patient Therefore the appropriate way to manage this as conservatively filled the fistula tracts closes again Physical examination reveals skin inferior to the fistula to be starting to get red again and irritated although it was nicely healed as stated in above note It should be noted that this is distal small bowel content and therefore fairly caustic so meticulous care has to be taken not to allow this to be in contact with the skin On my arrival one part of the fistula in the midline is covered with a colostomy bag while the stool is freely draining all over the patient's abdomen between the legs and on the bed I went into the room ostomy nurse to come with me and removed personally everything cleaned patient up with nursing assistance I said down with the hospitality housekeeper and the nurse and explained in detail how this should be covered and how the stoma should be structured in order to protect the skin Apparently large pieces of stoma skin adhesive material are not available here and let to be brought from [facility]. The same large pieces were used when patient first came to [place] and care was described in orders At this point meticulous care has to be taken in order to prevent skin damage and free leakage It is also imperative that the wound care gets involved in management of this patient 10/30/16 Patient had the spike a fever today to 101.8 White count 16,000 Abdomen is soft with active bowel sounds and ileostomy is working very well Bilateral breath sounds and no rhonchi or rales Wound VAC has been changed today and I'll look to the wound leg really looks nice and healing very nicely with good granulation tissue No signs of dehiscence I believe the fever spikes are part of the fungemia and unfortunately 30-50% of patients will develop systemic fungemia in this setting will succumb to the same despite maximum therapy Patient remains on micafungin Continue care 10/31/16 Abdomen is soft and active bowel sounds and incision is nice and granulating underneath the wound VAC Ileostomy working fine White count is coming down and patient hasn't had any fever spikes since placed on Diflucan and micafungin Unfortunately patient refuses to eat and also refuses to get out of bed Physical therapy and occupational therapy of trying to mobilize the patient but she will not cooperate She also refuses to take by mouth diet but drinks high caloric supplements at least Respiratory-gillette patient is doing well throughout the day and then 2 in the evening her sats started dropping to again improve later on Will order ABGs and perhaps do a CAT scan of the chest to assess for any effusions or any other possible causes for this Again patient is very ill with fungemia which carries high mortality and ICU patient's especially with immunosuppression accompanying the clinical picture 08/22/17 I today patient is doing okay She doesn't want to take any by mouth diet except high caloric supplements Abdomen is soft active bowel sounds ileostomy and colostomy clean and midline wound is healing nicely with a the wound VAC Bilateral breath sounds decreased over the both lung chaney consistent with bilateral pulmonary consolidation unlikely mu onset lower lobe pneumonia Patient is unwilling to get out of bed and does not participate in physical occupational therapy rather chased some out of the room Discussed the care with her furnace caretaker Mrs. 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 Currently on amphotericin B and antibiotics Patient is refusing any by mouth diet and is refusing to get out of bed She will developed pneumonia and and up on the respirator again if she continues to refuse activity Midline incision wound VAC has been changed and appears to be clean and granulating nicely 11/07/16 Patient somewhat improved awake alert and oriented White count has normalized Abdomen is soft with active bowel sounds ileostomy working fine Midline incision is healing very well Patient refuses take by mouth diet except for occasional bites of something and ensure Nothing to add to care 11/08/16 Abdominal incision is clean and wound VAC is in place be changed tomorrow Ileostomy working fine Patient taking by mouth however refuses regular diet and only drinks fluids Remains afebrile at this time and infection seem to be under control Very hard to manage as far as physical therapy is concerned because patient refuses to get out of bed or participate in any therapy Have tried to explain to her the importance of physical therapy in order to get her back on her feet regain strength and mobilize as well as as a means to prevent pneumonia but patient will not get out of bed 11/13/16 Ileostomy is nice and clean working fine Unfortunately ileostomy bag got disconnected and the fluid leaked into the midline incision secondary closure site Therefore the wound VAC have to be removed wound washed and replaced It's quite difficult to protect the wounds in this situation where patient's abdomen so tiny that all the structures a sort of in close proximity I've discussed this with the wound care nurse and she was kind to change her wound VAC today Patient finally at half of her breakfast and half of her lunch today which is actually an improvement and I am happy that patient is eating more 11/14/16 All studies have normalized and cultures remain negative Patient started to take little more by mouth Abdomen is soft and ileostomy is working well The colostomy bag broke open yesterday and everything contents spilled over the midline incision according to the nurse At this point patient clearly does not need a wound VAC other than for the purposes of protecting the incision for the ileostomy and colostomy bag are leaking each time these are attached to the patient for some reason, so the only way to protect the wound at this time is with wound VAC Other than that wound is healing nicely Mac I would prefer patient not to have the wound VAC and the colostomy back to be properly applied rather than leaking every time 11/15/16 Vital signs stable Patient is awake alert and oriented Had little food today but generally refuses to eat more than a few bites Tolerates supplement feeds but will not take much of those either Abdomen is soft The midline incision is almost healed and the wound VAC has been placed mainly to protect the wound from spillage from the ileostomy while its healing It should be noted that patient's the creatinine has gone up a little bit and this is not quite clear as far as the cause for patient's well hydrated The antibiotic therapy and amphotericin would clearly be the first culprits to take on as far as the creatinine increase In addition patient has increased calcium level and even corrected calcium is high sodium order PTH level to assess for hyperparathyroidism which would not be very unusual in this situation 11/16/16 Patient doing very well at this time considering the complexity of her care Midline incision is clean and granulating nicely with a tiny wound VAC over it Well-functioning ileostomy and colostomy All the cultures are coming back negative and expert ID help and input from Dr. Carlos is greatly appreciated Patient had several days of elevated calcium level and PTH has been checked which is normal This may be due to excessive administration of calcium-containing products and calcium is coming back to normal now Patients who are sedated sure and bedridden will tend to have higher levels of calcium considering that sedation state will lead to osteoclastic activity and will certainly not promote osteoblastic activity Patient should probably transfer to [place] at this time for long-term care 11/18/16 Patient is doing much better Finally taking some by mouth diet however small amounts Incision is clean and wound VAC changes are carried out on Sunday and I believe after the next removal on Sunday patient will not need wound VAC anymore as long as we can make the ileostomy adhere so he doesn't leak into the wound All cultures are negative Nothing to add to care but patient will need extensive rehabilitation She refuses physical therapy for most part and refuses to get out of bed Objective: Vital Signs Date Time Temp Pulse Resp B/P Pulse Ox O2 Delivery O2 Flow Rate FiO2 11/18/16 09:17 18 11/18/16 08:36 Nasal Cannula 2.00 21 11/18/16 08:00 98.3 86 16 125/58 91 11/18/16 00:00 99.0 82 20 144/76 100 11/17/16 21:00 Nasal Cannula 2.00 21 11/17/16 20:00 98.5 85 20 136/67 100 11/17/16 18:07 98 Nasal Cannula 3.00 11/17/16 16:00 98.2 76 14 110/64 98 11/17/16 13:21 98 Nasal Cannula 3.00 11/17/16 12:00 98.4 88 20 130/51 96 Labs: Laboratory Tests Test 11/18/16 06:35 White Blood Count 8.0 TH/MM3 (4.0-11.0) Red Blood Count 3.22 MIL/MM3 (4.00-5.30) Hemoglobin 9.3 GM/DL (11.6-15.3) Hematocrit 28.6 % (35.0-46.0) Mean Corpuscular Volume 88.7 FL (80.0-100.0) Mean Corpuscular Hemoglobin 28.9 PG (27.0-34.0) Mean Corpuscular Hemoglobin 32.5 % Concent (32.0-36.0) Red Cell Distribution Width 18.6 % (11.6-17.2) Platelet Count 374 TH/MM3 (150-450) Mean Platelet Volume 8.8 FL (7.0-11.0) Neutrophils (%) (Auto) 41.8 % (16.0-70.0) Lymphocytes (%) (Auto) 40.6 % (9.0-44.0) Monocytes (%) (Auto) 9.4 % (0.0-8.0) Eosinophils (%) (Auto) 6.7 % (0.0-4.0) Basophils (%) (Auto) 1.5 % (0.0-2.0) Neutrophils # (Auto) 3.4 TH/MM3 (1.8-7.7) Lymphocytes # (Auto) 3.3 TH/MM3 (1.0-4.8) Monocytes # (Auto) 0.8 TH/MM3 (0-0.9) Eosinophils # (Auto) 0.5 TH/MM3 (0-0.4) Basophils # (Auto) 0.1 TH/MM3 (0-0.2) CBC Comment DIFF FINAL Differential Comment Sodium Level 147 MEQ/L (136-145) Potassium Level 2.9 MEQ/L (3.5-5.1) Chloride Level 110 MEQ/L (98-107) Carbon Dioxide Level 30.2 MEQ/L (21.0-32.0) Anion Gap 7 MEQ/L (5-15) Blood Urea Nitrogen 34 MG/DL (7-18) Creatinine 1.34 MG/DL (0.50-1.00) Estimat Glomerular Filtration 39 ML/MIN (>89) Rate Random Glucose 148 MG/DL (74-106) Calcium Level 10.6 MG/DL (8.5-10.1) Phosphorus Level 3.5 MG/DL (2.5-4.9) Magnesium Level 2.1 MG/DL (1.5-2.5) Total Bilirubin 0.5 MG/DL (0.2-1.0) Aspartate Amino Transf 47 U/L (15-37) (AST/SGOT) Alanine Aminotransferase 25 U/L (10-53) (ALT/SGPT) Alkaline Phosphatase 253 U/L (45-117) Total Protein 7.7 GM/DL (6.4-8.2) Albumin 1.8 GM/DL (3.4-5.0) Result Diagram: 11/18/16 0635 11/18/16 0635 Janice Olvera MD Nov 18, 2016 10:59
[2016-11-18 11:31] LABS: BLOOD GAS BASE EXCESS 2.6 mmol/L (-2-2); BLOOD GAS CARBOXYHEMOGLOBIN 1.3 % (0-4); BLOOD GAS HCO3 28 mmol/L (22-26); BLOOD GAS METHEMOGLOBIN 0.7 % (0-2); BLOOD GAS O2 HGB SATURATION 97 % (90-100); BLOOD GAS OXYGEN CONTENT 14.5 Vol % (12.0-20.0); BLOOD GAS PCO2 50 mmHg (38-42); BLOOD GAS PO2 178 mmHg (61-120); BLOOD GAS TOTAL HGB 10.3 G/DL (12.0-16.0); CRITICAL VALUE NO; OXYGEN DEVICE PRB; TEMP CORR TO 98.6
[2016-11-18 11:32] LABS: DRAW SITE LT RADIAL; LITER FLOW 15 L/M; NUMBER OF ARTERIAL PUNCTURES 1; STAT YES; ULNAR PULSE PRESENT
--- NOTE | 2016-11-18 11:44 | RADRPT ---
EXAM DATE/TIME: 11/18/2016 11:30 [facility] COMPARISON: CHEST SINGLE AP, November 03, 2016, 15:03. INDICATIONS : Patient complains of shortness of breath. MEDICAL HISTORY : Cardiovascular disease. Hypertension. SURGICAL HISTORY : None. ENCOUNTER: Subsequent ACUITY: 1 month PAIN SCORE: 0/10 LOCATION: chest FINDINGS: A single view of the chest demonstrates scattered infiltrates in both lung chaney suggestive of atele ctasis. This is seen in the right lower lung and left mid lung. There is stable interstitial changes bilaterally. There is some pulmonary venous congestion. No significant pleural effusions. There is a left PICC line in place. The heart size is stable. The bony structures are stable.. CONCLUSION: There are scattered areas of atelectasis in both lung chaney which appear to be new compared to the p rior exam. This involves the right lower lung and left midlung. Dakota Phillips MD on November 18, 2016 at 11:42 Board Certified Radiologist. This report was verified electronically.
--- NOTE | 2016-11-18 11:56 | HHI.PR ---
Subjective Remarks called by rn patient with respiratry distress, tachypneic and desating into the 70's patient c/o sob denies cp Objective Vitals Vital Signs Date Time Temp Pulse Resp B/P Pulse Ox O2 Delivery O2 Flow Rate FiO2 11/18/16 09:17 18 11/18/16 08:36 Nasal Cannula 2.00 21 11/18/16 08:00 98.3 86 16 125/58 91 11/18/16 00:00 99.0 82 20 144/76 100 11/17/16 21:00 Nasal Cannula 2.00 21 11/17/16 20:00 98.5 85 20 136/67 100 11/17/16 18:07 98 Nasal Cannula 3.00 11/17/16 16:00 98.2 76 14 110/64 98 11/17/16 13:21 98 Nasal Cannula 3.00 11/17/16 12:00 98.4 88 20 130/51 96 I/O 11/17/16 11/17/16 11/17/16 11/18/16 11/18/16 11/18/16 07:00 15:00 23:00 07:00 15:00 23:00 Intake Total 2078 ml 600 ml 1124 ml 1477 ml Output Total 1950 ml 1100 ml 920 ml 1900 ml Balance 128 ml -500 ml 204 ml -423 ml Intake Oral 120 ml 600 ml 240 ml 0 ml IV Total 1393 ml 484 ml 949 ml TPN/PPN 565 ml 400 ml 528 ml Output Urine Total 900 ml 700 ml 650 ml 850 ml Stool Total 1050 ml 400 ml 250 ml 1050 ml Drainage Total 20 ml Result Diagram: 11/18/16 0635 11/18/16 0635 Imaging Last Impressions Chest X-Ray 11/18/16 0000 Signed Impressions: Service Date/Time: Friday, November 18, 2016 11:30 - CONCLUSION: There are scattered areas of atelectasis in both lung chaney which appear to be new compared to the prior exam. This involves the right lower lung and left midlung. Dakota Phillips MD PICC Line Insertion 11/10/16 0000 Signed Impressions: Service Date/Time: Thursday, November 10, 2016 17:07 - CONCLUSION: 1. Uncomplicated central venous Power PICC line placement. 2. The PICC line can be used immediately. Garrison Pascual MD Abdomen CT 11/01/16 0000 Signed Impressions: Service Date/Time: October 15:20 - CONCLUSION: No abnormalities are seen with respect to the liver or spleen. Previously noted small fluid collections adjacent to the small bowel loops within the right lower quadrant are no longer present. The configuration of the small bowel loops adjacent to the intra-abdominal wall at the site of mesh repair are consistent with areas of adhesion. No evidence of bowel obstruction.. Hoda Ash MD Abdomen/Pelvis CT 10/19/16 0000 Signed Impressions: Service Date/Time: September 15:10 - CONCLUSION: 1. There are 2 small rim-enhancing fluid collections in the right mid abdomen adjacent to the distal ileum that extends into the ileostomy. These measure 2.6 x 1.3 cm and 2.1 x 1.6 cm. These could represent infected fluid collections but are too small to place a drainage catheter. There is an additional small subcapsular fluid collection along the anterior left lobe of the liver. 2. Additionally, there is wall thickening of the distal ileal loops along with marked mesenteric edema. 3. There is a small volume of free fluid in the left upper quadrant around the spleen and in the pelvis. 4. There is a new small left pleural effusion with compressive atelectasis and right lower lobe volume loss versus airspace consolidation. Calixto Uriostegui MD Liver Ultrasound 07/12/16 0000 Signed Impressions: Service Date/Time: Tuesday, July 12, 2016 18:07 - CONCLUSION: 1. No acute abnormality demonstrated. 2. Heterogeneous liver without measurable mass. 3. Small and heterogeneous spleen without a measurable mass. 4. Cortical thinning and scarring of the right kidney. 5. Previous cholecystectomy. Calixto Woodruff MD Chest CT 07/09/16 0000 Signed Impressions: Service Date/Time: Saturday, July 09, 2016 14:43 - CONCLUSION: 1. Small right pleural effusion and minimal right basilar consolidation. 2. 6 mm left basilar nodule. Followup CT chest 6 months recommended. Florian Pepper MD Lower Extremity Ultrasound 06/25/16 0000 Signed Impressions: Service Date/Time: Saturday, June 25, 2016 15:56 - CONCLUSION: Negative exam with no evidence of deep venous thrombosis. Soft tissue edema. Mike Leija MD Port Line Insertion 06/20/16 0000 Signed Impressions: Service Date/Time: Monday, June 20, 2016 08:53 - CONCLUSION: Uncomplicated ultrasound and fluoroscopic guided implanted central venous port catheter placement as described in detail above. An 8 Belgian Power port was placed. Kevan Salgado Jr., MD Objective Remarks GENERAL: Lying in bed. Awake, alert. In severe respiratory distress, tachypneic SKIN: Warm and dry. HEAD: Normocephalic. EYES: No scleral icterus. No injection or drainage. NECK: Supple, trachea midline. No JVD. MOUTH: Dry mucus membranes. CARDIOVASCULAR: Regular rate and rhythm without murmurs, gallops or rubs. RESPIRATORY: Breath sounds equal bilaterally. No accessory muscle use. GASTROINTESTINAL: right-sided fistula with green/brown liquid stool, as before. Left-sided fistula with no significant output. No rebound or guarding. Wound VAC in midline incision. MUSCULOSKELETAL: No cyanosis, or edema. BACK: Nontender without obvious deformity. No CVA tenderness. NEURO: No tremors. moves all extremities. Cranial nerves II through XII grossly intact. PSYCH: Slightly flattened affect. Procedures Left stump debridement by Dr. Hill on 06/15/16 Bedside debridement of preperitoneal fat that was protruding from the abdominal fistula 09/01/16 central line placement Exploratory laparotomy, resection of the anterior abdominal wall fistula tract, resection of the transverse colon to small bowel anastomosis, lysis of adhesions of the small bowel with repair of two enterotomies, right-sided ileostomy, left-sided mucous fistula and partial removal of a ventral hernia mesh. Medications and IVs Current Medications Medications (Trade) Dose Ordered Sig/Shira Route Start Time Stop Time Status Last Admin (Rocaltrol) 0.25 mcg DAILY PO 06/15/16 09:00 Hold 11/15/16 08:17 (Ferrous Sulfate) 325 mg DAILY PO 06/15/16 09:00 11/18/16 08:38 (Pill Splitter) 1 ea UNSCH PRN OTHER 06/14/16 18:00 (Heparin Central Flush) 500 units UNSCH IVF 06/20/16 11:30 10/06/16 12:24 (NS Flush) 5 ml UNSCH PRN IVF 06/20/16 11:30 11/10/16 05:40 (Heparin Central Flush) 250 units UNSCH PRN IVF 06/20/16 11:30 07/26/16 14:54 (Mag-Al Plus Susp Liq) 30 ml Q6H PRN PO 07/09/16 16:45 09/28/16 21:39 (Tylenol) 650 mg Q4H PRN PO 07/11/16 05:45 11/08/16 06:20 (Mycostatin Powder) 1 applic Q12HR TOPICAL 07/11/16 12:00 11/18/16 08:39 (Desitin 40% Oint) 1 applic UNSCH PRN TOPICAL 08/13/16 14:15 10/29/16 10:26 (Zinc Sulfate) 220 mg DAILY PO 09/04/16 09:00 11/18/16 08:38 (Cymbalta [address]) 30 mg DAILY PO 09/14/16 09:00 11/18/16 08:38 (Cardizem Cd) 240 mg DAILY PO 09/16/16 09:00 Hold 10/18/16 08:04 Gabapentin 300 mg 300 mg TID PO 10/06/16 13:00 Hold 10/09/16 13:39 Fat Emulsion Intravenous 250 ml @ 31.25 mls/ hr SuWe@20 IV-CENTRAL 10/08/16 20:00 11/15/16 21:06 (Mvi-12 Inj/ Folvite Inj/ Clinimix E 03/15) 2,010.2 ml @ 60 mls/hr Q24H IV-CENTRAL 10/08/16 20:00 11/17/16 21:16 (Zofran Inj) 4 mg Q6HR PRN IV PUSH 10/08/16 12:00 11/18/16 15:23 (NS Flush) 2 ml UNSCH PRN IVF 10/08/16 14:45 11/14/16 17:25 (NS Flush) 2 ml BID IVF 10/08/16 21:00 11/17/16 09:56 (Narcan Inj) 0.4 mg UNSCH PRN IV 10/08/16 14:45 (Peridex 0.12% Liq) 15 ml BID@08,20 MT 10/09/16 08:00 11/16/16 08:00 (Dilaudid Pf Inj) 0.5 mg Q3H PRN IV 10/11/16 12:00 11/17/16 22:03 (Dilaudid Pf Inj) 2 mg UNSCH PRN IV 10/12/16 10:45 11/03/16 15:03 (Ditropan) 2.5 mg Q8HR PO 10/14/16 14:41 11/18/16 13:51 (Lasix) 20 mg BID@09,18 PO 10/18/16 18:00 Hold 10/18/16 17:13 (Tylenol) 650 mg Q4H PRN PO 10/18/16 20:15 10/30/16 20:24 (Oscal-D 250-125) 500 mg BID PO 10/23/16 21:00 11/18/16 08:38 (D50w (Vial) Inj) 25 ml UNSCH PRN IV PUSH 10/24/16 16:15 (Glucagon Inj) 1 mg UNSCH PRN OTHER 10/24/16 16:15 (Dilaudid Pf Inj) 1 mg Q3H PRN IV PUSH 11/03/16 16:00 11/18/16 15:24 (Xarelto) 15 mg DAILY PO 11/08/16 09:00 11/18/16 08:38 (Questran Light Pkt) 4 gm Q12HR PO 11/10/16 11:45 11/18/16 08:38 (Inderal) 40 mg Q12HR PO 11/10/16 14:30 11/18/16 08:38 (KCl 40 Meq/30 ml Liq) 40 meq DAILY PO 11/10/16 14:30 11/18/16 08:37 (Lomotil 2.5-0.025 Mg Liq) 5 ml BID PO 11/10/16 21:00 11/18/16 08:38 Mirtazapine 30 mg 30 mg HS PO 11/12/16 21:00 11/17/16 21:17 Pharmacy Profile Note 0 ml @ 0 mls/hr UNSCH OTHER 11/15/16 18:00 (Diflucan 400 Mg Premix Bag) 200 ml @ 100 mls/hr Q24H IV 11/16/16 17:00 11/18/16 16:13 Urinary Catheter: Yes Assessment to: Continue Hamlin insert reason: Prolonged Immobilization Date of Insertion: Jun 20, 2016 Side: Left A/P Problem List: (1) Septic shock ICD Code: A41.9 Status: Resolved (2) Acute hypoxemic respiratory failure ICD Code: J96.01 Status: Acute (3) Ischemic colitis ICD Code: K55.9 Status: Resolved (4) COPD (chronic obstructive pulmonary disease) ICD Code: J44.9 Status: Chronic (5) depression Status: Chronic (6) Peripheral neuropathy ICD Code: G62.9 Status: Chronic (7) Chronic diastolic (congestive) heart failure ICD Code: I50.32 Status: Chronic (8) ZIA (acute kidney injury) ICD Code: N17.9 Status: Resolved (9) emergent Ex Lap for ischemic bowel/perforation 10/08/16 Status: Resolved (10) Acute blood loss anemia ICD Code: D62 Status: Resolved Assessment and Plan Ms. Wilson is a pleasant 71 year old female who was admitted to the hospital in Oct 2015 due to ischemic bowel and subsequently underwent resection of large , small bowel and cholecystectomy. 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 Patient was discharged to SNF but returned to the hospital due to post surgical complications. She underwent left foot amputation and subsequently had a lot of post surgical complications requiring wound vac. Her surgeon (Dr. Olvera) determined that patient was too high risk for further surgical intervention. Patient was on TPN and after discussing with Dr. Hill we switched patient to PO diet. Based on patient's desires, we spoke to Dr. Hill regarding a second surgical opinion. Dr. Hill was kind enough to consult Dr. Grajeda who evaluated patient on 10/07/2016. On 10/08/2016, patient was transferred to the main campus after she complained of severe abdominal pain and CT scan showed ischemic bowel. Due to septic shock, patient was started on vancomycin and Cefepime prior to transfer. Septic shock/ Ischemic colitis S/p Ex lap, resection of anterior abdominal wall fistula tract, resection of transverse colon to small bowel anastomosis, right sided ileostomy, left sided mucous fistula and partial removal of a ventral hernia mesh 10/08/16. Has fungemia. Port and central line were removed. Chest abscess cultures positive for yeast. - follow up with surgery. - Echocardiogram cannot rule out vegetation. May need transesophageal echo, will defer to infectious disease. - cont ertapenem for ESBL + Kleb pneumo thru 11/16. - continue fluconazole and amphotericin B. Monitor BMP, MG and phos while on AMB - PT/OT. - DC amphotericin B, continue fluconazole as per infectious disease. Case discussed with Dr. Carrillo from ID. Malnutrition S/t bowel surgery. On TPN. Has a lot of stool output. Improved on Lomotil. - encourage PO intake. - follow up with dietary. - continue TPN. - GI consult appreciated. Trial of Lomotil. - continue Cholestiramine, Patient should not be started on gattex unless she can continue with it after discharge. - COPD/ Acute hypoxemic respiratory failure S/p extubation on 10/10/2016. - now resolved - Continue bronchodilators, incentive spirometry. - On O2 3liters nasal canula on 11/13 11/18 patient again with repiratory distress - check stat CXR, Check ABG, give IV lasix, Patient on 100 % NRB mask, hold IV fluids. Acute blood loss anemia S/p 4 units of PRBCs on 10/08/2016. Hemoglobin continues to be stable. - Monitor as necessary. Diabetes mellitus On TPN. - Continue sliding scale with insulin novolog. - Blood sugars stable. Tremors Ongoing for the past year. - trial of propranolol. Improved. - will need neuro work-up as an outpt. - No evidence of tremors. Delirium The pt endorses intermittent confusion. - frequent reorientation. - treat infection as above. - Patient seems more alert today. Depression On Remeron and Celexa. - Continue Remeron - continue Celexa. ZIA Likely due to prerenal azotemia. Creatinine trending down after IV fluid administration. Creatinine down to 1.46 -1.55. Continue IV fluid administration in the form of normal saline. Continue to monitor BUN/creatinine, avoid nephrotoxins, strict I's and O's. Renally adjust her antibiotics and medications. Creatinine continues to trend up - consult nephrology Contraction alkalosis Due to dehydration. Continue IV fluids. CO2 is trending down from 39.3-35.4. 11/18 Resolved, continue to monito volume status. Hypercalcemia Hyperglycemia due to dehydration and possible vitamin D intoxication. Continue to hold vitamin D. Calcium level is trending down from 12.3-11.4, continue to monitor BMP. PTH intact 68. 11/18 Calcium stable at 11, hold fluids for now due to respiratory distress. Hyperphosphatemia possibly due to Vitamin D toxicity/ decrease excretion of phosphorus due to ZIA. Improving with IV fluids and holding vitamin D. 11/18 phosphorus within normal range. PPx: Xarelto; Protonix. Prophylaxis Lovenox/PPI 35 minutes of critical care time spent with patient Discharge Planning Continue to monitor in the medical floor Jeff Carey MD Nov 18, 2016 11:56
[2016-11-18] MEDS ORDERED: FUROSEMIDE 40 MG/4 ML VIAL IV PUSH ONE (12:00)
[2016-11-18] MEDS: FLUCONAZOLE 400 MG PREMIX BAG 200 ML IV SCH (16:13)
[2016-11-18] MEDS: MIRTAZAPINE ODT 30 MG TAB PO SCH (21:00)
[2016-11-18] MEDS: CLINIMIX E 5/25 2000 mL- >42 mls/hr IV-CENTRAL SCH ×3 (21:45)
[2016-11-18 23:04] LABS: BICARBONATE 30.1 MEQ/L (21.0-32.0); POTASSIUM 3.9 MEQ/L (3.5-5.1)
[2016-11-19] VITALS (7 sets, daily range): BP systolic 100–121; BP diastolic 51–60; PULSE 86–109; RESP 18–22; TEMP 97.6–100; O2SAT 94–97
[2016-11-19] MEDS: INSULIN ASPART SUPPLEMENTAL SCALE SQ SCH ×5 (00:16→23:24)
[2016-11-19] MEDS: HYDROmorphone HCL PF 1 MG/ML VIAL IV PUSH PRN ×2 (02:05→16:52)
[2016-11-19] MEDS: SODIUM CHLORIDE 0.9% FLUSH 5 ML FLUSH IVF PRN ×2 (02:05→05:16)
[2016-11-19] MEDS: OXYBUTYNIN CHLORIDE 5 MG TAB PO SCH ×3 (05:14→22:00)
[2016-11-19 06:33] LABS: BASOPHIL # 0.1 TH/MM3 (0-0.2); EOSINOPHIL # 0.1 TH/MM3 (0-0.4); EOSINOPHIL % 0.6 % (0.0-4.0); HEMATOCRIT 30.2 % (35.0-46.0); HEMO FLAGS DIFF FINAL; LYMPH % 22.8 % (9.0-44.0); LYMPHOCYTE # 2.6 TH/MM3 (1.0-4.8); MEAN CORPUSCULAR HEMOGLOBIN 28.6 PG (27.0-34.0); MEAN CORPUSCULAR HGB CONC 32.1 % (32.0-36.0); MONO % 6.9 % (0.0-8.0); NEUT % 68.7 % (16.0-70.0); PLATELET COUNT 400 TH/MM3 (150-450); RED CELL DISTRIBUTION WIDTH 18.2 % (11.6-17.2); WHITE BLOOD COUNT 11.6 TH/MM3 (4.0-11.0)
[2016-11-19 06:37] LABS: ALKALINE PHOSPHATASE 256 U/L (45-117); ALT (GPT) 50 U/L (10-53); ANION GAP 5 MEQ/L (5-15); AST (GOT) 274 U/L (15-37); BICARBONATE 31.3 MEQ/L (21.0-32.0); BLOOD UREA NITROGEN 39 MG/DL (7-18); CHLORIDE 110 MEQ/L (98-107); GLOMERULAR FILTRATION RATE 37 ML/MIN (>89); POTASSIUM 3.6 MEQ/L (3.5-5.1); SODIUM (NA) 146 MEQ/L (136-145); TOTAL BILIRUBIN ADULT 0.6 MG/DL (0.2-1.0)
[2016-11-19] MEDS: CHLORHEXIDINE 0.12% (ORAL KIT) 15 ML CUP MT SCH ×2 (07:04→20:00)
[2016-11-19] MEDS: ONDANSETRON HCL 4 MG/2 ML VIAL IV PUSH PRN ×3 (08:19→23:23)
[2016-11-19] MEDS: CALCIUM/VITAMIN D 250 MG/125 U TAB PO SCH ×2 (08:20→21:00)
[2016-11-19] MEDS: RIVAROXABAN 15 MG TAB PO SCH (08:20)
[2016-11-19] MEDS: SODIUM CHLORIDE 0.9% FLUSH 5 ML FLUSH IVF SCH ×2 (08:20→22:48)
[2016-11-19] MEDS: DIPHENOXYLATE/ATROPINE 2.5 MG/0.025 MG/5 ML CUP PO SCH ×2 (08:20→21:00)
[2016-11-19] MEDS: POTASSIUM CL 40 MEQ/30 ML LIQ UDC PO SCH (08:20)
[2016-11-19] MEDS: CHOLESTYRAMINE LIGHT 4 GM PACKAGE PO SCH ×2 (08:20→22:50)
[2016-11-19] MEDS: PROPRANOLOL HCL 40 MG TAB PO SCH ×2 (08:20→21:00)
[2016-11-19] MEDS: DULoxetine HCl DR 30 MG CAP PO SCH (08:20)
[2016-11-19] MEDS: ZINC SULFATE 220 MG CAP PO SCH (08:20)
[2016-11-19] MEDS: FERROUS SULFATE 325 MG (65 MG ELEMENTAL IRON) TAB PO SCH (08:20)
[2016-11-19] MEDS: NYSTATIN 100,000 U/GM PWD 15 GM BTL TOPICAL SCH ×2 (08:21→23:03)
--- NOTE | 2016-11-19 09:44 | HHI.PR ---
Subjective Remarks Follow up nausea, infection. Patient does not feel well today. Increased nausea. Pain is controlled. Objective Vitals Vital Signs Date Time Temp Pulse Resp B/P Pulse Ox O2 Delivery O2 Flow Rate FiO2 11/19/16 08:00 99.6 109 20 121/60 95 11/19/16 04:00 97.6 106 19 113/59 96 11/19/16 00:00 97.9 94 20 105/57 95 11/18/16 21:56 95 Nasal Cannula 6.00 11/18/16 21:37 95 Nasal Cannula 6.00 11/18/16 20:00 97.6 104 20 110/55 95 11/18/16 16:00 82 20 100/46 100 11/18/16 15:54 17 11/18/16 12:00 91 26 115/56 99 11/18/16 10:40 93 Partial Rebreather 15.00 I/O 11/18/16 11/18/16 11/18/16 11/19/16 11/19/16 11/19/16 07:00 15:00 23:00 07:00 15:00 23:00 Intake Total 1477 ml 2167 ml 700 ml 706 ml Output Total 1900 ml 2025 ml 900 ml 725 ml Balance -423 ml 142 ml -200 ml -19 ml Intake Oral 0 ml 800 ml 240 ml 240 ml IV Total 949 ml 936 ml 466 ml TPN/PPN 528 ml 431 ml 460 ml Output Urine Total 850 ml 1650 ml 600 ml 725 ml Stool Total 1050 ml 325 ml 300 ml Drainage Total 50 ml 0 ml 0 ml # Bowel Movements 0 Result Diagram: 11/19/16 0600 11/19/16 0600 Imaging Last Impressions Chest X-Ray 11/18/16 0000 Signed Impressions: Service Date/Time: Friday, November 18, 2016 11:30 - CONCLUSION: There are scattered areas of atelectasis in both lung chaney which appear to be new compared to the prior exam. This involves the right lower lung and left midlung. Dakota Phillips MD PICC Line Insertion 11/10/16 0000 Signed Impressions: Service Date/Time: Thursday, November 10, 2016 17:07 - CONCLUSION: 1. Uncomplicated central venous Power PICC line placement. 2. The PICC line can be used immediately. Garrison Pascual MD Abdomen CT 11/01/16 0000 Signed Impressions: Service Date/Time: October 15:20 - CONCLUSION: No abnormalities are seen with respect to the liver or spleen. Previously noted small fluid collections adjacent to the small bowel loops within the right lower quadrant are no longer present. The configuration of the small bowel loops adjacent to the intra-abdominal wall at the site of mesh repair are consistent with areas of adhesion. No evidence of bowel obstruction.. Hoda Ash MD Abdomen/Pelvis CT 10/19/16 0000 Signed Impressions: Service Date/Time: September 15:10 - CONCLUSION: 1. There are 2 small rim-enhancing fluid collections in the right mid abdomen adjacent to the distal ileum that extends into the ileostomy. These measure 2.6 x 1.3 cm and 2.1 x 1.6 cm. These could represent infected fluid collections but are too small to place a drainage catheter. There is an additional small subcapsular fluid collection along the anterior left lobe of the liver. 2. Additionally, there is wall thickening of the distal ileal loops along with marked mesenteric edema. 3. There is a small volume of free fluid in the left upper quadrant around the spleen and in the pelvis. 4. There is a new small left pleural effusion with compressive atelectasis and right lower lobe volume loss versus airspace consolidation. Calixto Uriostegui MD Liver Ultrasound 07/12/16 0000 Signed Impressions: Service Date/Time: Tuesday, July 12, 2016 18:07 - CONCLUSION: 1. No acute abnormality demonstrated. 2. Heterogeneous liver without measurable mass. 3. Small and heterogeneous spleen without a measurable mass. 4. Cortical thinning and scarring of the right kidney. 5. Previous cholecystectomy. Calixto Woodruff MD Chest CT 07/09/16 0000 Signed Impressions: Service Date/Time: Saturday, July 09, 2016 14:43 - CONCLUSION: 1. Small right pleural effusion and minimal right basilar consolidation. 2. 6 mm left basilar nodule. Followup CT chest 6 months recommended. Florian Pepper MD Lower Extremity Ultrasound 06/25/16 0000 Signed Impressions: Service Date/Time: Saturday, June 25, 2016 15:56 - CONCLUSION: Negative exam with no evidence of deep venous thrombosis. Soft tissue edema. Mike Leija MD Port Line Insertion 06/20/16 0000 Signed Impressions: Service Date/Time: Monday, June 20, 2016 08:53 - CONCLUSION: Uncomplicated ultrasound and fluoroscopic guided implanted central venous port catheter placement as described in detail above. An 8 [place] Power port was placed. Kevan Salgado Jr., MD Objective Remarks General: Chronically ill appearing female in no acute distress. Heart: Regular rate and rhythm. No murmur. Lungs: Clear to auscultation bilaterally. No wheezes, rales, or rhonchi. Breathing is nonlabored. Abdomen: Ileostomy. Wound vac in place. Extremities: No right lower extremity edema. Left BKA. Psych: Somewhat lethargic. Procedures Left stump debridement by Dr. Hill on 06/15/16 Bedside debridement of preperitoneal fat that was protruding from the abdominal fistula 09/01/16 central line placement Exploratory laparotomy, resection of the anterior abdominal wall fistula tract, resection of the transverse colon to small bowel anastomosis, lysis of adhesions of the small bowel with repair of two enterotomies, right-sided ileostomy, left-sided mucous fistula and partial removal of a ventral hernia mesh. Urinary Catheter: Yes Assessment to: Continue Hamlin insert reason: Surgical/Invasive Proced A/P Problem List: (1) Septic shock ICD Code: A41.9 Status: Resolved (2) Acute hypoxemic respiratory failure ICD Code: J96.01 Status: Acute (3) Ischemic colitis ICD Code: K55.9 Status: Resolved (4) COPD (chronic obstructive pulmonary disease) ICD Code: J44.9 Status: Chronic (5) depression Status: Chronic (6) Peripheral neuropathy ICD Code: G62.9 Status: Chronic (7) Chronic diastolic (congestive) heart failure ICD Code: I50.32 Status: Chronic (8) ZIA (acute kidney injury) ICD Code: N17.9 Status: Resolved (9) emergent Ex Lap for ischemic bowel/perforation 10/08/16 Status: Resolved (10) Acute blood loss anemia ICD Code: D62 Status: Resolved Assessment and Plan Brought forward from previous M.D. documentation: "Ms. Wilson is a pleasant 71 year old female who was admitted to the hospital in Oct 2015 due to ischemic bowel and subsequently underwent resection of large, small bowel and cholecystectomy. 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 Patient was discharged to SNF but returned to the hospital due to post surgical complications. She underwent left foot amputation and subsequently had a lot of post surgical complications requiring wound vac. Her surgeon (Dr. Olvera) determined that patient was too high risk for further surgical intervention. Patient was on TPN and after discussing with Dr. Hill we switched patient to PO diet. Based on patient's desires, we spoke to Dr. Hill regarding a second surgical opinion. Dr. Hill was kind enough to consult Dr. Grajeda who evaluated patient on 10/07/2016. On 10/08/2016, patient was transferred to the [facility] after she complained of severe abdominal pain and CT scan showed ischemic bowel. Due to septic shock, patient was started on vancomycin and Cefepime prior to transfer." 1. Septic shock: Secondary to colitis/perforation. Resolved. 2. Ischemic colitis with perforation: Status post exploratory laparotomy with resection of anterior abdominal wall fistula tract and resection of transverse colon to the small bowel anastomosis. Right-sided ileostomy. Appreciate surgery recommendations. Wound vac in place. 3. Chest abscess, persistent fungemia: Blood and wound cultures positive for Danni. Appreciate infectious disease recommendations. Amphotericin B discontinued. Continue fluconazole for a total of 6 weeks (tentative stop date ). 4. Malnutrition: Secondary to bowel surgery. Continue TPN. Encourage oral intake. Appreciate dietary recommendations. Appreciate GI recommendations. Continue cholestyramine. 5. Acute hypoxemic respiratory failure: Patient has history of COPD. Was intubated. Extubated on 10/10/16. Continue bronchodilators, incentive spirometry. Supplemental oxygen as needed. 6. Anemia secondary to acute blood loss: Status post transfusion of 4 units PRBCs on 10/08/16. Hemoglobin remained stable. 7. Diabetes mellitus: Monitor Accu-Cheks and cover with sliding scale insulin. 8. Acute kidney injury: Creatinine stable. Monitor labs. Likely chronic kidney disease as well. 9. Hypercalcemia: Calcium level stable. Continue IV fluids. 10. Hyperphosphatemia: Possibly secondary to vitamin D toxicity. Resolved. Hold vitamin D supplementation. 11. Tremors: These have been present for the past year. Improved with trial of propranolol. Neurology workup as outpatient. 12. Delirium: Patient has intermittent confusion. Requires frequent reorientation. Possibly secondary to infection. 13. Depression: Continue Remeron, Celexa. 14. DVT prophylaxis: Xarelto. 15. GI prophylaxis: Protonix. 16. Pansensitive Klebsiella bacteremia: Resolved. 17: Left BKA stump infection: Cultures grew Klebsiella ESBL+ and Morganella. Appreciate ID recommendations. 18. Mitral valve vegetation: Patient is not a candidate for MELVA. 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 19. HCAP: Sputum culture grew Klebsiella ESBL+. Antibiotics per ID. Chase Mcduffie MD Nov 19, 2016 09:44
[2016-11-19] MEDS ORDERED: PROMETHAZINE INJ 25 MG/ML VIAL IM PRN (10:15)
--- NOTE | 2016-11-19 12:46 | HHI.GIFU ---
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 Throat is clear. NECK: Neck is supple, no JVD, no lymphadenopathy. CHEST: Chest is clear to auscultation and percussion. CARDIAC: Regular rate and rhythm with no murmur gallop or rubs. ABDOMEN: Soft, nondistended, nontender; no hepatosplenomegaly; bowel sounds are present in all four quadrants,multiple surgical scars with two ostomy bags EXTREMITIES: No clubbing, cyanosis, or edema, left leg amputation SKIN: Normal; no rash; no jaundice. TRAINING FACILITATOR: No focal deficits; alert, confused Available Data (labs, X- Rays, Procedues) : Vital Signs Date Time Temp Pulse Resp B/P Pulse Ox O2 Delivery O2 Flow Rate FiO2 11/19/16 10:26 97 Nasal Cannula 6.00 11/19/16 08:16 Nasal Cannula 6.00 21 Humidified 11/19/16 08:00 99.6 109 20 121/60 95 ASSESSMENT/PLAN: nausea -multifactorial-Phenergan started, correct hypercalcemia high output through ostomy due to short bowel syndrome - cholestyramine/Lomotil/ tpn, gattex not an option due to cost multiple medical issues trial of octreotide ppi supportive measures overall prognosis poor It was a pleasure seeing Toshia Wilson. Thank you for this consult. Entered by: Selene Sanchez MD Nov 19, 2016 12:46
[2016-11-19] MEDS: PANTOPRAZOLE SODIUM 40 MG VIAL IV PUSH SCH (13:13)
--- NOTE | 2016-11-19 14:09 | PD.CAR.PN ---
CVT Progress Note Subjective/Hospital Course: 70-year-old female with a complex medical and surgical history of peripheral vascular disease and multiple related problems presents now status post BK amputation about a month half ago. Patient went to [facility] and apparently braced herself on the stump several times in bed in hit it against either floor or the chair not quite clear. Part of the stump opened up and at this point patient is dehiscence of skin deeper tissue seemed to be still intact. 06/16/16 Patient underwent yesterday debridement of the stump with wound VAC placement. The dehiscence is fortunately superficial involving skin and muscle in this as been debrided successfully while the rest of the tissues of bleeding and are viable. Wound VAC has been placed Cultures have been reviewed and antibiotics can be adjusted by medicine as appropriate We'll continue current care and patient should be able to go to [facility] with a wound VAC by Sunday Patient's nutritional status is very poor with a low albumen and prealbumin level and therefore nutritional evaluation and recommendations are requested I believe the patient is not taking sufficient by mouth in the [facility] and may need supplemental enteral or parenteral feedings at this point 06/17/16 I reviewed the nutritional parameters and patient's prealbumin and transferrin levels a critically low indicating severe malnutrition. Patient's healing is impaired and so is the rehabilitative potential. After reviewing to nutritional recommendations once these are made, we will decide whether patient needs an [id number]-[id number] placed for additional parenteral nutrition for short bowel syndrome Stump is nice and clean with minimal drainage from the wound VAC 06/19/16 Still awaiting nutritional consult and evaluation for patient has short gut syndrome and will probably need additional parenteral feedings. If so patient will need [id number] placement for additional feedings Patient is taking excellent by mouth but despite that her nutritional status is poor and hence the healing issues Left BKA stump incision is clean and wound VAC is in place with minimal drainage and will need to be changed today Awaiting wound care to change the wound VAC. Infectious disease help is much appreciated 06/20/2016 Patient doing well at this time. Stump is clean and the wound VAC will be changed today Patient had Tereua-c-Hith placed by radiology for supplemental parenteral feedings. Grateful for the nutritional evaluation. Patient will be placed on TPN at about the 1500 non-protein calories a day split about 60-70% in glucose and about 30% in form of lipids Patient will likely have to be discharged on supplemental TPN in face of her short bowel syndrome 06/21/16 Patient is doing really well at this time She's taking good by mouth diet. 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 There is some granulation tissue which may eventually need to be debrided but at this point I would leave it alone. Stump wound VAC has been changed and this is clean and granulating nicely. Patient is currently on TPN which tolerating well. In face of her short bowel syndrome patient will need TPN after discharge from the hospital. Grateful to case management for making arrangements for the same 06/22/16 Vital signs stable patient is doing well. Her appetite has improved and patient is taking good by mouth diet and having regular bowel movements. The abdominal incision is completely healed and fistula has completely resolved. The BKA wound VAC has been changed and wound is clean and granulating nicely. [id number] is being used for additional parenteral feedings necessary and short bowel syndrome and patient will be discharged on TPN. 06/23/16 Patient underwent today change of the wound VAC and the wound is clean. Next with will be the last wound VAC change and after that I plan to take the patient to the OR for irrigation and closure of the wound by the middle of the next week. 06/24/16 Patient doing very well at this time she is in a good mood and taking by mouth diet well Unfortunately due to the short bowel syndrome she need supplemental TPN feedings at this time Stump is healed nicely there is a small scab anterior to it and this should allow to fall off on its own Once the arrangements are made for outpatient TPN patient will be able to be discharged Awaiting case management to make the arrangements for outpatient TPN 06/25/16 Vital signs stable Patient is awake and alert and oriented, taking by mouth diet very well Abdomen is soft and the colocutaneous fistula is completely closed The BKA stump has an eschar and a scab but I would leave this alone because underneath its healing nicely. Patient remains on TPN considering the short gut syndrome and will go home on the same Mild anemia is dilutional due to TPN administration and intravenous fluids and does not require therapy at this time 06/26/16 Vital signs stable Patient is awake and alert and oriented, taking by mouth diet very well Abdomen is soft and the colocutaneous fistula is completely closed The BKA stump has an eschar and a scab but I would leave this alone because underneath its healing nicely. Patient remains on TPN considering the short gut syndrome and will go home on the same Mild anemia is dilutional due to TPN administration and intravenous fluids and does not require therapy at this time 06/27/16 Wound VAC has been removed by me and the the entire stump is healed very nicely except a small area but an inch length at the very lateral portion of the incision were we going to put a very small wound VAC on for another week or so. Patient can transfer to rehabilitation at any time as long as she can get intravenous TPN in the process 06/28/16 Wound VAC has been removed by me and the the entire stump is healed very nicely except a small area but an inch length at the very lateral portion of the incision were we going to put a very small wound VAC on for another week or so. Patient can transfer to rehabilitation at any time as long as she can get intravenous TPN Patient will need termite helper TPN considering short gut syndrome and this can be done either in a [facility] or at home I suspect this will be about a six-month process and after that patient may not need additional feedings if we can get her in a reasonable nutritional status in the meantime. I understand the difficulty this creates for case management to find her such an arrangement 06/29/16 Patient doing really well at this time taking good by mouth but due to the short bowel syndrome will require long-term TPN Stump is healing really nicely and the probably after this week we will remove the wound VAC and simply place wet-to-dry dressing and allow this to heal 06/30/16 Patient is doing well tolerates diet. Abdomen is soft with active bowel sounds Incisions are clean and dry Wound VAC last change will be next week and after that we going to remove the wound VAC and continue wet-to-dry dressing Stump is healing really nicely Due to TPN and other issues placement remains a problem 07/01/16 Abdomen soft and active bowel sounds Tolerates diet well Stump is clean and dry and I'll remove the wound VAC on Sunday after that patient will just be on wet-to-dry dressings until the stump heels Arrangements for discharge to difficult due to long-term TPN needs 07/03/16 Vital signs stable Stump is clean and wound VAC after next removal won't need to be applied again Patient will remain long-term on TPN and I'm waiting for case management to make discharge arrangements Will [facility] medicine kindly if patient can be transferred to medicine service at this time 07/14/16 Patient is a placement issue apparently is still in the hospital The left BKA stump is healed nicely except for very small air about 1 cm which is granulating in on the lateral aspect of the stump Apparently the enterocutaneous fistula was close for about month and a half and opened up 2 days ago draining some stool It should be noted that the bowel is quite close to the skin and patient is very thin and malnourished so it is not surprising that fistula opens and closes sporadically. With enteral and parenteral nutrition that should close but clearly patient is very frail and it could open up any time Nothing to add to care at this time 07/26/16 Discussed the patient with medical attending. She has systemic cutaneous herpes zoster and is on appropriate medications The drainage from anterior abdominal wall is very minimal however irritating to the skin of the abdominal wall in face of herpes and the nature of intestinal fluid. Just putting dressings will only worsen the situation so patient should be treated with the stoma and coverage of the skin. Unfortunately the colostomy material will not stick to the skin and the contents will leak underneath it. At point is best solution was due to apply Silvadene ointment daily and then dressing Patient's appetite is very poor sure refuses food and she remains on TPN although her GI tract is completely patent Her prognosis in general is for due to malnutrition short bowel syndrome and immune failure. 09/01/16 Patient seen at [facility]. Patient has tremendously improved in the last month or so. The rash she had has since disappeared I am not sure this was a herpetic rash or perhaps caused by zinc or selenium deficiency At this point patient is eating well and she is again about 15 pounds. Her short bowel syndrome as being managed adequately with improvement of by mouth intake and modification of the diet Abdomen is soft with active bowel sounds and the fistula has closed There is small amount of preperitoneal fat extruding from the abdomen incision. I debrided this at the bedside In the worse case scenario patient would have to go to the operating room to have this cauterized away and reclosed but I would certainly like to avoid this in this lady was finally recovering nicely 11/20/16 Last night patient was straining when going to bathroom and enterocutaneous fistula opened up again Patient is now draining stool over the last 24 hours. 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 She underwent several surgeries and it is a miracle that patient has survived all this. The fistulous tract has now opened and closed about 5 times since September last year when patient's first came and this is now another instance of the same. As far as the fistulous tract is concerned this patient is not a candidate for an open surgery due to malnutrition, short bowel syndrome in the anatomic considerations. Going into this abdomen with resultant multiple fistulas, damage to the remaining small bowel and likely of the patient Therefore the appropriate way to manage this as conservatively filled the fistula tracts closes again Physical examination reveals skin inferior to the fistula to be starting to get red again and irritated although it was nicely healed as stated in above note It should be noted that this is distal small bowel content and therefore fairly caustic so meticulous care has to be taken not to allow this to be in contact with the skin On my arrival one part of the fistula in the midline is covered with a colostomy bag while the stool is freely draining all over the patient's abdomen between the legs and on the bed I went into the room ostomy nurse to come with me and removed personally everything cleaned patient up with nursing assistance I said down with the customs house broker and the nurse and explained in detail how this should be covered and how the stoma should be structured in order to protect the skin Apparently large pieces of stoma skin adhesive material are not available here and let to be brought from [facility]. The same large pieces were used when patient first came to [facility] and care was described in orders At this point meticulous care has to be taken in order to prevent skin damage and free leakage It is also imperative that the wound care gets involved in management of this patient 10/30/16 Patient had the spike a fever today to 101.8 White count 16,000 Abdomen is soft with active bowel sounds and ileostomy is working very well Bilateral breath sounds and no rhonchi or rales Wound VAC has been changed today and I'll look to the wound leg really looks nice and healing very nicely with good granulation tissue No signs of dehiscence I believe the fever spikes are part of the fungemia and unfortunately 30-50% of patients will develop systemic fungemia in this setting will succumb to the same despite maximum therapy Patient remains on micafungin Continue care 10/31/16 Abdomen is soft and active bowel sounds and incision is nice and granulating underneath the wound VAC Ileostomy working fine White count is coming down and patient hasn't had any fever spikes since placed on Diflucan and micafungin Unfortunately patient refuses to eat and also refuses to get out of bed Physical therapy and occupational therapy of trying to mobilize the patient but she will not cooperate She also refuses to take by mouth diet but drinks high caloric supplements at least Respiratory-gillette patient is doing well throughout the day and then 2 in the evening her sats started dropping to again improve later on Will order ABGs and perhaps do a CAT scan of the chest to assess for any effusions or any other possible causes for this Again patient is very ill with fungemia which carries high mortality and ICU patient's especially with immunosuppression accompanying the clinical picture 08/22/17 I today patient is doing okay She doesn't want to take any by mouth diet except high caloric supplements Abdomen is soft active bowel sounds ileostomy and colostomy clean and midline wound is healing nicely with a the wound VAC Bilateral breath sounds decreased over the both lung chaney consistent with bilateral pulmonary consolidation unlikely mu onset lower lobe pneumonia Patient is unwilling to get out of bed and does not participate in physical occupational therapy rather chased some out of the room Discussed the care with her mold bunch trimmer Mrs. 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 Currently on amphotericin B and antibiotics Patient is refusing any by mouth diet and is refusing to get out of bed She will developed pneumonia and and up on the respirator again if she continues to refuse activity Midline incision wound VAC has been changed and appears to be clean and granulating nicely 11/07/16 Patient somewhat improved awake alert and oriented White count has normalized Abdomen is soft with active bowel sounds ileostomy working fine Midline incision is healing very well Patient refuses take by mouth diet except for occasional bites of something and ensure Nothing to add to care 11/08/16 Abdominal incision is clean and wound VAC is in place be changed tomorrow Ileostomy working fine Patient taking by mouth however refuses regular diet and only drinks fluids Remains afebrile at this time and infection seem to be under control Very hard to manage as far as physical therapy is concerned because patient refuses to get out of bed or participate in any therapy Have tried to explain to her the importance of physical therapy in order to get her back on her feet regain strength and mobilize as well as as a means to prevent pneumonia but patient will not get out of bed 11/13/16 Ileostomy is nice and clean working fine Unfortunately ileostomy bag got disconnected and the fluid leaked into the midline incision secondary closure site Therefore the wound VAC have to be removed wound washed and replaced It's quite difficult to protect the wounds in this situation where patient's abdomen so tiny that all the structures a sort of in close proximity I've discussed this with the wound care nurse and she was kind to change her wound VAC today Patient finally at half of her breakfast and half of her lunch today which is actually an improvement and I am happy that patient is eating more 11/14/16 All studies have normalized and cultures remain negative Patient started to take little more by mouth Abdomen is soft and ileostomy is working well The colostomy bag broke open yesterday and everything contents spilled over the midline incision according to the nurse At this point patient clearly does not need a wound VAC other than for the purposes of protecting the incision for the ileostomy and colostomy bag are leaking each time these are attached to the patient for some reason, so the only way to protect the wound at this time is with wound VAC Other than that wound is healing nicely Mac I would prefer patient not to have the wound VAC and the colostomy back to be properly applied rather than leaking every time 11/15/16 Vital signs stable Patient is awake alert and oriented Had little food today but generally refuses to eat more than a few bites Tolerates supplement feeds but will not take much of those either Abdomen is soft The midline incision is almost healed and the wound VAC has been placed mainly to protect the wound from spillage from the ileostomy while its healing It should be noted that patient's the creatinine has gone up a little bit and this is not quite clear as far as the cause for patient's well hydrated The antibiotic therapy and amphotericin would clearly be the first culprits to take on as far as the creatinine increase In addition patient has increased calcium level and even corrected calcium is high sodium order PTH level to assess for hyperparathyroidism which would not be very unusual in this situation 11/16/16 Patient doing very well at this time considering the complexity of her care Midline incision is clean and granulating nicely with a tiny wound VAC over it Well-functioning ileostomy and colostomy All the cultures are coming back negative and expert ID help and input from Dr. Carlos is greatly appreciated Patient had several days of elevated calcium level and PTH has been checked which is normal This may be due to excessive administration of calcium-containing products and calcium is coming back to normal now Patients who are sedated sure and bedridden will tend to have higher levels of calcium considering that sedation state will lead to osteoclastic activity and will certainly not promote osteoblastic activity Patient should probably transfer to [facility] at this time for long-term care 11/18/16 Patient is doing much better Finally taking some by mouth diet however small amounts Incision is clean and wound VAC changes are carried out on Sunday and I believe after the next removal on Sunday patient will not need wound VAC anymore as long as we can make the ileostomy adhere so he doesn't leak into the wound All cultures are negative Nothing to add to care but patient will need extensive rehabilitation She refuses physical therapy for most part and refuses to get out of bed 11/19/16 Incision is clean and dry and wound VAC strip is not draining anything Colostomy and ileostomy working well Patient feels nauseous today and week doesn't want to take anything by mouth except shakes Us to get out of bed but doesn't want to get out of bed or the chair All cultures lately negative thanks to great work of the infectious disease specialists Again patient is very weak and refuses solid foods and physical therapy but otherwise with no sources of infection Abdomen is completely benign at this point and there are no more abdominal issues to be addressed Objective: Vital Signs Date Time Temp Pulse Resp B/P Pulse Ox O2 Delivery O2 Flow Rate FiO2 11/19/16 12:00 99.8 99 22 109/55 94 11/19/16 10:26 97 Nasal Cannula 6.00 11/19/16 08:16 Nasal Cannula 6.00 21 Humidified 11/19/16 08:00 99.6 109 20 121/60 95 11/19/16 04:00 97.6 106 19 113/59 96 11/19/16 00:00 97.9 94 20 105/57 95 11/18/16 21:56 95 Nasal Cannula 6.00 11/18/16 21:37 95 Nasal Cannula 6.00 11/18/16 20:00 97.6 104 20 110/55 95 11/18/16 16:00 82 20 100/46 100 11/18/16 15:54 17 Labs: Laboratory Tests Test 11/19/16 06:00 White Blood Count 11.6 TH/MM3 (4.0-11.0) Red Blood Count 3.40 MIL/MM3 (4.00-5.30) Hemoglobin 9.7 GM/DL (11.6-15.3) Hematocrit 30.2 % (35.0-46.0) Mean Corpuscular Volume 89.0 FL (80.0-100.0) Mean Corpuscular Hemoglobin 28.6 PG (27.0-34.0) Mean Corpuscular Hemoglobin 32.1 % Concent (32.0-36.0) Red Cell Distribution Width 18.2 % (11.6-17.2) Platelet Count 400 TH/MM3 (150-450) Mean Platelet Volume 9.1 FL (7.0-11.0) Neutrophils (%) (Auto) 68.7 % (16.0-70.0) Lymphocytes (%) (Auto) 22.8 % (9.0-44.0) Monocytes (%) (Auto) 6.9 % (0.0-8.0) Eosinophils (%) (Auto) 0.6 % (0.0-4.0) Basophils (%) (Auto) 1.0 % (0.0-2.0) Neutrophils # (Auto) 8.0 TH/MM3 (1.8-7.7) Lymphocytes # (Auto) 2.6 TH/MM3 (1.0-4.8) Monocytes # (Auto) 0.8 TH/MM3 (0-0.9) Eosinophils # (Auto) 0.1 TH/MM3 (0-0.4) Basophils # (Auto) 0.1 TH/MM3 (0-0.2) CBC Comment DIFF FINAL Differential Comment Sodium Level 146 MEQ/L (136-145) Potassium Level 3.6 MEQ/L (3.5-5.1) Chloride Level 110 MEQ/L (98-107) Carbon Dioxide Level 31.3 MEQ/L (21.0-32.0) Anion Gap 5 MEQ/L (5-15) Blood Urea Nitrogen 39 MG/DL (7-18) Creatinine 1.41 MG/DL (0.50-1.00) Estimat Glomerular Filtration 37 ML/MIN (>89) Rate Random Glucose 168 MG/DL (74-106) Calcium Level 11.0 MG/DL (8.5-10.1) Phosphorus Level 3.3 MG/DL (2.5-4.9) Magnesium Level 2.0 MG/DL (1.5-2.5) Total Bilirubin 0.6 MG/DL (0.2-1.0) Aspartate Amino Transf 274 U/L (15-37) (AST/SGOT) Alanine Aminotransferase 50 U/L (10-53) (ALT/SGPT) Alkaline Phosphatase 256 U/L (45-117) Total Protein 8.0 GM/DL (6.4-8.2) Albumin 1.9 GM/DL (3.4-5.0) Result Diagram: 11/19/16 0600 11/19/16 0600 Janice Olvera MD Nov 19, 2016 14:09
[2016-11-19] MEDS: FLUCONAZOLE 400 MG PREMIX BAG 200 ML IV SCH (15:54)
[2016-11-19] MEDS: MIRTAZAPINE ODT 30 MG TAB PO SCH (21:00)
[2016-11-19] MEDS: CLINIMIX E 5/25 2000 mL- >42 mls/hr IV-CENTRAL SCH ×3 (22:47)
[2016-11-19] MEDS: FAT EMULSION 20% INJ 250 ML (Twice weekly over 8 hours) IV-CENTRAL SCH (22:48)
[2016-11-19] MEDS: OCTREOTIDE INJ 100 MCG/ML VIAL SQ SCH (22:50)
[2016-11-20] VITALS (10 sets, daily range): BP systolic 100–108; BP diastolic 47–62; PULSE 72–116; RESP 20–24; TEMP 97.3–100.1; O2SAT 90–96
[2016-11-20] MEDS: PANTOPRAZOLE SODIUM 40 MG VIAL IV PUSH SCH ×2 (00:45→12:04)
[2016-11-20] MEDS: OXYBUTYNIN CHLORIDE 5 MG TAB PO SCH ×3 (04:35→21:29)
[2016-11-20] MEDS: INSULIN ASPART SUPPLEMENTAL SCALE SQ SCH ×4 (04:42→21:30)
[2016-11-20] MEDS: ONDANSETRON HCL 4 MG/2 ML VIAL IV PUSH PRN ×2 (04:42→11:18)
[2016-11-20] MEDS: SODIUM CHLORIDE 0.9% FLUSH 5 ML FLUSH IVF PRN (04:43)
[2016-11-20 06:45] LABS: AUTOMATED NEUTROPHIL # 14.3 TH/MM3 (1.8-7.7); BASOPHIL # 0.1 TH/MM3 (0-0.2); BASOPHIL % 0.7 % (0.0-2.0); EOSINOPHIL % 0.1 % (0.0-4.0); HEMATOCRIT 30.1 % (35.0-46.0); HEMO FLAGS DIFF FINAL; LYMPH % 15.4 % (9.0-44.0); LYMPHOCYTE # 2.8 TH/MM3 (1.0-4.8); MEAN CELL VOLUME 90.1 FL (80.0-100.0); MEAN CORPUSCULAR HGB CONC 32.2 % (32.0-36.0); NEUT % 78.8 % (16.0-70.0); PLATELET COUNT 341 TH/MM3 (150-450); RED BLOOD COUNT 3.34 MIL/MM3 (4.00-5.30); RED CELL DISTRIBUTION WIDTH 18.3 % (11.6-17.2); WHITE BLOOD COUNT 18.1 TH/MM3 (4.0-11.0)
[2016-11-20 07:21] LABS: BICARBONATE 29.2 MEQ/L (21.0-32.0); POTASSIUM 3.2 MEQ/L (3.5-5.1)
[2016-11-20] MEDS: CHLORHEXIDINE 0.12% (ORAL KIT) 15 ML CUP MT SCH ×2 (08:00→21:49)
--- NOTE | 2016-11-20 09:21 | HHI.GIFU ---
Subjective Remarks Resting in bed. C/O feeling weak. Denies n/v, abdominal pain. (Rama Kauffman) Objective Vitals I&O Vital Signs Date Time Temp Pulse Resp B/P Pulse Ox O2 Delivery O2 Flow Rate FiO2 11/20/16 09:10 100.1 103 20 105/49 96 11/20/16 04:19 99.2 102 20 100/62 94 11/20/16 00:00 99.6 100 20 100/52 95 11/19/16 22:50 95 Nasal Cannula 4.00 11/19/16 20:00 100.0 100 18 106/51 95 11/19/16 17:22 17 11/19/16 16:00 99.0 86 18 110/54 94 11/19/16 12:00 99.8 99 22 109/55 94 11/19/16 10:26 97 Nasal Cannula 6.00 I/O 11/19/16 11/19/16 11/19/16 11/20/16 11/20/16 11/20/16 07:00 15:00 23:00 07:00 15:00 23:00 Intake Total 706 ml 829 ml 120 ml 1198 ml Output Total 725 ml 1060 ml 400 ml 250 ml Balance -19 ml -231 ml -280 ml 948 ml Intake Oral 240 ml 360 ml 120 ml 120 ml IV Total 466 ml 0 ml TPN/PPN 469 ml 906 ml Lipid 172 ml Output Urine Total 725 ml 850 ml 400 ml 250 ml Stool Total 210 ml Drainage Total 0 ml 0 ml 0 ml # Bowel Movements 0 0 0 Laboratory Laboratory Tests Test 11/20/16 06:00 White Blood Count 18.1 Red Blood Count 3.34 Hemoglobin 9.7 Hematocrit 30.1 Mean Corpuscular Volume 90.1 Mean Corpuscular Hemoglobin 29.0 Mean Corpuscular Hemoglobin 32.2 Concent Red Cell Distribution Width 18.3 Platelet Count 341 Mean Platelet Volume 9.8 Neutrophils (%) (Auto) 78.8 Lymphocytes (%) (Auto) 15.4 Monocytes (%) (Auto) 5.0 Eosinophils (%) (Auto) 0.1 Basophils (%) (Auto) 0.7 Neutrophils # (Auto) 14.3 Lymphocytes # (Auto) 2.8 Monocytes # (Auto) 0.9 Eosinophils # (Auto) 0.0 Basophils # (Auto) 0.1 CBC Comment DIFF FINAL Differential Comment Sodium Level 147 Potassium Level 3.2 Chloride Level 110 Carbon Dioxide Level 29.2 Anion Gap 8 Blood Urea Nitrogen 41 Creatinine 1.54 Estimat Glomerular Filtration 33 Rate Random Glucose 217 Calcium Level 11.2 Imaging Last Impressions Chest X-Ray 11/18/16 0000 Signed Impressions: Service Date/Time: Friday, November 18, 2016 11:30 - CONCLUSION: There are scattered areas of atelectasis in both lung chaney which appear to be new compared to the prior exam. This involves the right lower lung and left midlung. Dakota Phillips MD PICC Line Insertion 11/10/16 0000 Signed Impressions: Service Date/Time: Thursday, November 10, 2016 17:07 - CONCLUSION: 1. Uncomplicated central venous Power PICC line placement. 2. The PICC line can be used immediately. Garrison Pascual MD Abdomen CT 11/01/16 0000 Signed Impressions: Service Date/Time: October 15:20 - CONCLUSION: No abnormalities are seen with respect to the liver or spleen. Previously noted small fluid collections adjacent to the small bowel loops within the right lower quadrant are no longer present. The configuration of the small bowel loops adjacent to the intra-abdominal wall at the site of mesh repair are consistent with areas of adhesion. No evidence of bowel obstruction.. Hoda Ash MD Abdomen/Pelvis CT 10/19/16 0000 Signed Impressions: Service Date/Time: September 15:10 - CONCLUSION: 1. There are 2 small rim-enhancing fluid collections in the right mid abdomen adjacent to the distal ileum that extends into the ileostomy. These measure 2.6 x 1.3 cm and 2.1 x 1.6 cm. These could represent infected fluid collections but are too small to place a drainage catheter. There is an additional small subcapsular fluid collection along the anterior left lobe of the liver. 2. Additionally, there is wall thickening of the distal ileal loops along with marked mesenteric edema. 3. There is a small volume of free fluid in the left upper quadrant around the spleen and in the pelvis. 4. There is a new small left pleural effusion with compressive atelectasis and right lower lobe volume loss versus airspace consolidation. Calixto Uriostegui MD Liver Ultrasound 07/12/16 0000 Signed Impressions: Service Date/Time: Tuesday, July 12, 2016 18:07 - CONCLUSION: 1. No acute abnormality demonstrated. 2. Heterogeneous liver without measurable mass. 3. Small and heterogeneous spleen without a measurable mass. 4. Cortical thinning and scarring of the right kidney. 5. Previous cholecystectomy. Calixto Woodruff MD Chest CT 07/09/16 0000 Signed Impressions: Service Date/Time: Saturday, July 09, 2016 14:43 - CONCLUSION: 1. Small right pleural effusion and minimal right basilar consolidation. 2. 6 mm left basilar nodule. Followup CT chest 6 months recommended. Florian Pepper MD Lower Extremity Ultrasound 06/25/16 0000 Signed Impressions: Service Date/Time: Saturday, June 25, 2016 15:56 - CONCLUSION: Negative exam with no evidence of deep venous thrombosis. Soft tissue edema. Mike Leija MD Port Line Insertion 06/20/16 0000 Signed Impressions: Service Date/Time: Monday, June 20, 2016 08:53 - CONCLUSION: Uncomplicated ultrasound and fluoroscopic guided implanted central venous port catheter placement as described in detail above. An 8 Nepalese Power port was placed. Kevan Salgado Jr., MD Physical Exam HEENT: Normocephalic; atraumatic; no jaundice. CHEST: Resp. even/unlabored. CARDIAC: RRR ABDOMEN: Soft, nondistended, tender; Ileostomy with small amount of greenish semi formed stool. Left sided colostomy with small amount of brown stool. Midline abdominal wound with wound vac. EXTREMITIES: Left BKA. 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 (Rama Kauffman) Assessment and Plan Plan ASSESSMENT: - Short gut syndrome with high stool output. 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 This was then complicated by development of enterocutaneous fistula, which she then underwent exploratory laparotomy with resection of the segment of the large bowel containing the anastomosis to the small bowel and the fistula, end ileostomy and mucous fistula colostomy creation and removal of segments of ventral hernia mesh placed at some point many years in the past. She has a wound vac to her midline abdominal wound. She has high stool output from the ileostomy, with 1850cc-5850cc of stool output daily. Stool studies negative. She is on TPN. GI was consulted for evaluation for possible Gattex. This would be a good option, but is very expensive, Each injection is $1,500 and the monthly cost would be $45,000 a month. It is not available at this facility and should not be initiated unless thisis something that could be continued at discharge. Spoke to Felicity in , who spoke to [facility]. Pt is a difficult placement and the plan is for her to [facility] and they are currently holding her bed. However, they state that they will not be able to accept her back if she requires the Gattex. Cholestyramine, Lomotil, Octreotide. Stool output is improving. Monitor stool output. Plan: - Cont. TPN and JULES - Cont. Cholestyramine - Cont. Lomotil - Cont. Octreotide - Monitor electrolytes - Monitor stool output - Supportive care - Gattex is not an option secondary to cost - Further recommendations to follow based on results of above - Pt seen and examined by Dr. Cosme and myself and this note is written on his behalf (Rama Kauffman) Physician Comments Patient seen and examined Agree with above Continue with current supportive care Monitor labs (James Cosme MD) Rama Kauffman Nov 20, 2016 09:21 James Cosme MD Nov 20, 2016 23:20
--- NOTE | 2016-11-20 11:05 | HHI.PR ---
Subjective Remarks Follow up nausea, hypokalemia, leukocytosis. Patient had low-grade fever overnight. Nausea is slightly better today. She still does not feel well. Objective Vitals Vital Signs Date Time Temp Pulse Resp B/P Pulse Ox O2 Delivery O2 Flow Rate FiO2 11/20/16 09:10 100.1 103 20 105/49 96 11/20/16 04:19 99.2 102 20 100/62 94 11/20/16 00:00 99.6 100 20 100/52 95 11/19/16 22:50 95 Nasal Cannula 4.00 11/19/16 20:00 100.0 100 18 106/51 95 11/19/16 17:22 17 11/19/16 16:00 99.0 86 18 110/54 94 11/19/16 12:00 99.8 99 22 109/55 94 I/O 11/19/16 11/19/16 11/19/16 11/20/16 11/20/16 11/20/16 07:00 15:00 23:00 07:00 15:00 23:00 Intake Total 706 ml 829 ml 120 ml 1198 ml Output Total 725 ml 1060 ml 400 ml 250 ml Balance -19 ml -231 ml -280 ml 948 ml Intake Oral 240 ml 360 ml 120 ml 120 ml IV Total 466 ml 0 ml TPN/PPN 469 ml 906 ml Lipid 172 ml Output Urine Total 725 ml 850 ml 400 ml 250 ml Stool Total 210 ml Drainage Total 0 ml 0 ml 0 ml # Bowel Movements 0 0 0 Result Diagram: 11/20/16 0600 11/20/16 0600 Imaging Last Impressions Chest X-Ray 11/18/16 0000 Signed Impressions: Service Date/Time: Friday, November 18, 2016 11:30 - CONCLUSION: There are scattered areas of atelectasis in both lung chaney which appear to be new compared to the prior exam. This involves the right lower lung and left midlung. Dakota Phillips MD PICC Line Insertion 11/10/16 0000 Signed Impressions: Service Date/Time: Thursday, November 10, 2016 17:07 - CONCLUSION: 1. Uncomplicated central venous Power PICC line placement. 2. The PICC line can be used immediately. Garrison Pascual MD Abdomen CT 11/01/16 0000 Signed Impressions: Service Date/Time: October 15:20 - CONCLUSION: No abnormalities are seen with respect to the liver or spleen. Previously noted small fluid collections adjacent to the small bowel loops within the right lower quadrant are no longer present. The configuration of the small bowel loops adjacent to the intra-abdominal wall at the site of mesh repair are consistent with areas of adhesion. No evidence of bowel obstruction.. Hoda Ash MD Abdomen/Pelvis CT 10/19/16 0000 Signed Impressions: Service Date/Time: September 15:10 - CONCLUSION: 1. There are 2 small rim-enhancing fluid collections in the right mid abdomen adjacent to the distal ileum that extends into the ileostomy. These measure 2.6 x 1.3 cm and 2.1 x 1.6 cm. These could represent infected fluid collections but are too small to place a drainage catheter. There is an additional small subcapsular fluid collection along the anterior left lobe of the liver. 2. Additionally, there is wall thickening of the distal ileal loops along with marked mesenteric edema. 3. There is a small volume of free fluid in the left upper quadrant around the spleen and in the pelvis. 4. There is a new small left pleural effusion with compressive atelectasis and right lower lobe volume loss versus airspace consolidation. Calixto Uriostegui MD Liver Ultrasound 07/12/16 0000 Signed Impressions: Service Date/Time: Tuesday, July 12, 2016 18:07 - CONCLUSION: 1. No acute abnormality demonstrated. 2. Heterogeneous liver without measurable mass. 3. Small and heterogeneous spleen without a measurable mass. 4. Cortical thinning and scarring of the right kidney. 5. Previous cholecystectomy. Calixto Woodruff MD Chest CT 07/09/16 0000 Signed Impressions: Service Date/Time: Saturday, July 09, 2016 14:43 - CONCLUSION: 1. Small right pleural effusion and minimal right basilar consolidation. 2. 6 mm left basilar nodule. Followup CT chest 6 months recommended. Florian Pepper MD Lower Extremity Ultrasound 06/25/16 0000 Signed Impressions: Service Date/Time: Saturday, June 25, 2016 15:56 - CONCLUSION: Negative exam with no evidence of deep venous thrombosis. Soft tissue edema. Mike Leija MD Port Line Insertion 06/20/16 0000 Signed Impressions: Service Date/Time: Monday, June 20, 2016 08:53 - CONCLUSION: Uncomplicated ultrasound and fluoroscopic guided implanted central venous port catheter placement as described in detail above. An 8 Mongolian Power port was placed. Kevan Salgado Jr., MD Objective Remarks General: Chronically ill appearing female in no acute distress. Heart: Regular rate and rhythm. No murmur. Lungs: Clear to auscultation bilaterally. No wheezes, rales, or rhonchi. Breathing is nonlabored. Abdomen: Ileostomy. Wound vac in place. Extremities: No right lower extremity edema. Left BKA. Psych: Somewhat lethargic. Procedures Left stump debridement by Dr. Hill on 06/15/16 Bedside debridement of preperitoneal fat that was protruding from the abdominal fistula 09/01/16 central line placement Exploratory laparotomy, resection of the anterior abdominal wall fistula tract, resection of the transverse colon to small bowel anastomosis, lysis of adhesions of the small bowel with repair of two enterotomies, right-sided ileostomy, left-sided mucous fistula and partial removal of a ventral hernia mesh. Urinary Catheter: Yes Assessment to: Continue Hamlin insert reason: Surgical/Invasive Proced Vascular Central Line Catheter: No A/P Problem List: (1) Septic shock ICD Code: A41.9 Status: Resolved (2) Acute hypoxemic respiratory failure ICD Code: J96.01 Status: Acute (3) Ischemic colitis ICD Code: K55.9 Status: Resolved (4) COPD (chronic obstructive pulmonary disease) ICD Code: J44.9 Status: Chronic (5) depression Status: Chronic (6) Peripheral neuropathy ICD Code: G62.9 Status: Chronic (7) Chronic diastolic (congestive) heart failure ICD Code: I50.32 Status: Chronic (8) ZIA (acute kidney injury) ICD Code: N17.9 Status: Resolved (9) emergent Ex Lap for ischemic bowel/perforation 10/08/16 Status: Resolved (10) Acute blood loss anemia ICD Code: D62 Status: Resolved (11) Leukocytosis ICD Code: D72.829 Status: Acute (12) Hypokalemia ICD Code: E87.6 Status: Resolved Assessment and Plan Brought forward from previous M.D. documentation: "Ms. Wilson is a pleasant 71 year old female who was admitted to the hospital in Oct 2015 due to ischemic bowel and subsequently underwent resection of large, small bowel and cholecystectomy. 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 Patient was discharged to SNF but returned to the hospital due to post surgical complications. She underwent left foot amputation and subsequently had a lot of post surgical complications requiring wound vac. Her surgeon (Dr. Olvera) determined that patient was too high risk for further surgical intervention. Patient was on TPN and after discussing with Dr. Hill we switched patient to PO diet. Based on patient's desires, we spoke to Dr. Hill regarding a second surgical opinion. Dr. Hill was kind enough to consult Dr. Grajeda who evaluated patient on 10/07/2016. On 10/08/2016, patient was transferred to the main campus after she complained of severe abdominal pain and CT scan showed ischemic bowel. Due to septic shock, patient was started on vancomycin and Cefepime prior to transfer." 1. Septic shock: Secondary to colitis/perforation. Resolved. 2. Ischemic colitis with perforation: Status post exploratory laparotomy with resection of anterior abdominal wall fistula tract and resection of transverse colon to the small bowel anastomosis. Right-sided ileostomy. Appreciate surgery recommendations. Wound vac in place. 3. Chest abscess, persistent fungemia: Blood and wound cultures positive for Danni. Appreciate infectious disease recommendations. Amphotericin B discontinued. Continue fluconazole for a total of 6 weeks (tentative stop date ). 4. Malnutrition: Secondary to bowel surgery. Continue TPN. Encourage oral intake. Appreciate dietary recommendations. Appreciate GI recommendations. Continue cholestyramine. 5. Acute hypoxemic respiratory failure: Patient has history of COPD. Was intubated. Extubated on 10/10/16. Continue bronchodilators, incentive spirometry. Supplemental oxygen as needed. 6. Anemia secondary to acute blood loss: Status post transfusion of 4 units PRBCs on 10/08/16. Hemoglobin remained stable. 7. Diabetes mellitus: Monitor Accu-Cheks and cover with sliding scale insulin. 8. Acute kidney injury: Creatinine stable. Monitor labs. Likely chronic kidney disease as well. 9. Hypercalcemia: Calcium level stable. Continue IV fluids. 10. Hyperphosphatemia: Possibly secondary to vitamin D toxicity. Resolved. Hold vitamin D supplementation. 11. Tremors: These have been present for the past year. Improved with trial of propranolol. Neurology workup as outpatient. 12. Delirium: Patient has intermittent confusion. Requires frequent reorientation. Possibly secondary to infection. 13. Depression: Continue Remeron, Celexa. 14. DVT prophylaxis: Xarelto. 15. GI prophylaxis: Protonix. 16. Pansensitive Klebsiella bacteremia: Resolved. 17: Left BKA stump infection: Cultures grew Klebsiella ESBL+ and Morganella. Appreciate ID recommendations. 18. Mitral valve vegetation: Patient is not a candidate for MELVA. 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 19. HCAP: Sputum culture grew Klebsiella ESBL+. Antibiotics per ID. 20. Hypokalemia: Supplement potassium. 21. Leukocytosis: WBCs increasing. Check UA, CXR, blood cultures. Chase Mcduffie MD Nov 20, 2016 11:04
[2016-11-20] MEDS: SODIUM CHLORIDE 0.9% FLUSH 5 ML FLUSH IVF SCH ×2 (11:18→21:30)
[2016-11-20] MEDS: PROPRANOLOL HCL 40 MG TAB PO SCH ×2 (11:19→21:30)
[2016-11-20] MEDS: RIVAROXABAN 15 MG TAB PO SCH (11:19)
[2016-11-20] MEDS: CALCIUM/VITAMIN D 250 MG/125 U TAB PO SCH ×2 (11:19→21:29)
[2016-11-20] MEDS: FERROUS SULFATE 325 MG (65 MG ELEMENTAL IRON) TAB PO SCH (11:20)
[2016-11-20] MEDS: ZINC SULFATE 220 MG CAP PO SCH (11:20)
[2016-11-20] MEDS: DIPHENOXYLATE/ATROPINE 2.5 MG/0.025 MG/5 ML CUP PO SCH ×2 (11:20→21:30)
[2016-11-20] MEDS: POTASSIUM CL 40 MEQ/30 ML LIQ UDC PO SCH (11:20)
[2016-11-20] MEDS: DULoxetine HCl DR 30 MG CAP PO SCH (11:20)
[2016-11-20] MEDS: OCTREOTIDE INJ 100 MCG/ML VIAL SQ SCH ×2 (11:20→21:29)
[2016-11-20] MEDS: CHOLESTYRAMINE LIGHT 4 GM PACKAGE PO SCH ×2 (11:21→21:30)
[2016-11-20] MEDS: NYSTATIN 100,000 U/GM PWD 15 GM BTL TOPICAL SCH ×2 (11:35→21:33)
--- NOTE | 2016-11-20 13:48 | RADRPT ---
EXAM DATE/TIME: 11/20/2016 13:09 [facility] COMPARISON: CHEST SINGLE AP, November 18, 2016, 11:30. INDICATIONS : Patient has had left side chest pain since yesterday. MEDICAL HISTORY : None. SURGICAL HISTORY : None. ENCOUNTER: Subsequent ACUITY: 1 month PAIN SCORE: 6/10 LOCATION: Left chest FINDINGS: PICC line is in good position. Surgical clips are seen in the right axilla. Persistent consolidativ e changes are seen in the left base. The heart remains enlarged. Pulmonary vascularity is normal. CONCLUSION: 1. Interval improvement, better aeration on the right. 2. Persistent consolidative changes left base. Schuyler Gamboa MD FACR on November 20, 2016 at 13:40 Board Certified Radiologist. This report was verified electronically.
[2016-11-20] MEDS ORDERED: POTASSIUM CHLOR 20 MEQ PREMIX 100 ML IV ONE (14:00)
[2016-11-20] MEDS ORDERED: SODIUM CHLORID 0.9% 500 ML INJ 500 ML IV ONE (14:30)
[2016-11-20] MEDS ORDERED: ASP: Path resistant to other antimicrobials, culture proven XX PRN (14:30)
[2016-11-20] MEDS ORDERED: MISCELLANEOUS PHARMACY INFORMATION XX PRN (14:30)
--- NOTE | 2016-11-20 14:42 | HHI.IDPN ---
Subjective Subjective Remarks Patient known to ID service. Overnight events reviewed with RN. Chart reviewed. d/w Dr. Mcduffie: patient had change in clinical status yesterday. On TPN Has a PICC line left UE. minimal po. Antibiotics fluconazol Lines PICC LUE. Past Medical History Ischemic Bowel w/ Resection and development of Enterocutaneous Fistula Short gut syndrome Asthma Depression and COPD Past Surgical History Bowel Resection 11/13/15 and 11/26/15 Left BKA Right Mastectomy Hysterectomy, Allergies: Coded Allergies: Levaquin (Verified Allergy, Severe, Edema, 05/29/16) Penicillin (Unverified Allergy, Intermediate, hives, 03/10/16) Sulfa (Unverified Allergy, Intermediate, hives, 03/10/16) *MDRO Multi-Drug Resistant Organism (Verified Adverse Reaction, Unknown, ) ESBL+Klebsiella (leg) - 06/15/16; (sputum) - 11/01/16 Objective . Vital Signs Date Time Temp Pulse Resp B/P Pulse Ox O2 Delivery O2 Flow Rate FiO2 11/20/16 13:00 96 Nasal Cannula 4.00 11/20/16 12:20 100.0 112 20 107/47 93 11/20/16 09:10 100.1 103 20 105/49 96 11/20/16 04:19 99.2 102 20 100/62 94 11/20/16 00:00 99.6 100 20 100/52 95 11/19/16 22:50 95 Nasal Cannula 4.00 11/19/16 20:00 100.0 100 18 106/51 95 11/19/16 17:22 17 11/19/16 16:00 99.0 86 18 110/54 94 11/19/16 11/19/16 11/20/16 15:00 23:00 07:00 Intake Total 829 ml 120 ml 1198 ml Output Total 1060 ml 400 ml 250 ml Balance -231 ml -280 ml 948 ml Intake Oral 360 ml 120 ml 120 ml IV Total 0 ml TPN/PPN 469 ml 906 ml Lipid 172 ml Output Urine Total 850 ml 400 ml 250 ml Stool Total 210 ml Drainage Total 0 ml 0 ml # Bowel Movements 0 0 . Laboratory Tests Test 11/19/16 11/20/16 06:00 06:00 White Blood Count 11.6 TH/MM3 18.1 TH/MM3 Red Blood Count 3.40 MIL/MM3 3.34 MIL/MM3 Hemoglobin 9.7 GM/DL 9.7 GM/DL Hematocrit 30.2 % 30.1 % Mean Corpuscular Volume 89.0 FL 90.1 FL Mean Corpuscular Hemoglobin 28.6 PG 29.0 PG Mean Corpuscular Hemoglobin 32.1 % 32.2 % Concent Red Cell Distribution Width 18.2 % 18.3 % Platelet Count 400 TH/MM3 341 TH/MM3 Mean Platelet Volume 9.1 FL 9.8 FL Neutrophils (%) (Auto) 68.7 % 78.8 % Lymphocytes (%) (Auto) 22.8 % 15.4 % Monocytes (%) (Auto) 6.9 % 5.0 % Eosinophils (%) (Auto) 0.6 % 0.1 % Basophils (%) (Auto) 1.0 % 0.7 % Neutrophils # (Auto) 8.0 TH/MM3 14.3 TH/MM3 Lymphocytes # (Auto) 2.6 TH/MM3 2.8 TH/MM3 Monocytes # (Auto) 0.8 TH/MM3 0.9 TH/MM3 Eosinophils # (Auto) 0.1 TH/MM3 0.0 TH/MM3 Basophils # (Auto) 0.1 TH/MM3 0.1 TH/MM3 CBC Comment DIFF FINAL DIFF FINAL Differential Comment Laboratory Tests Test 11/18/16 11/19/16 11/20/16 21:40 06:00 06:00 Sodium Level 146 MEQ/L 146 MEQ/L 147 MEQ/L Potassium Level 3.9 MEQ/L 3.6 MEQ/L 3.2 MEQ/L Chloride Level 110 MEQ/L 110 MEQ/L 110 MEQ/L Carbon Dioxide Level 30.1 MEQ/L 31.3 MEQ/L 29.2 MEQ/L Anion Gap 6 MEQ/L 5 MEQ/L 8 MEQ/L Blood Urea Nitrogen 39 MG/DL 39 MG/DL 41 MG/DL Creatinine 1.40 MG/DL 1.41 MG/DL 1.54 MG/DL Estimat Glomerular Filtration 37 ML/MIN 37 ML/MIN 33 ML/MIN Rate Random Glucose 208 MG/DL 168 MG/DL 217 MG/DL Calcium Level 11.0 MG/DL 11.0 MG/DL 11.2 MG/DL Phosphorus Level 3.3 MG/DL Magnesium Level 2.0 MG/DL Total Bilirubin 0.6 MG/DL Aspartate Amino Transf 274 U/L (AST/SGOT) Alanine Aminotransferase 50 U/L (ALT/SGPT) Alkaline Phosphatase 256 U/L Total Protein 8.0 GM/DL Albumin 1.9 GM/DL Microbiology Date/Time Procedure Status Source Growth 11/20/16 14:10 Aerobic Blood Culture Received Blood Peripheral Pending 11/20/16 14:10 Anaerobic Blood Culture Received Blood Peripheral Pending 11/20/16 14:15 Aerobic Blood Culture Received Blood Peripheral Pending 11/20/16 14:15 Anaerobic Blood Culture Received Blood Peripheral Pending Imaging Last Impressions Chest X-Ray 11/03/16 0000 Signed Impressions: Service Date/Time: Thursday, November 03, 2016 15:03 - CONCLUSION: Subclavian central venous catheter which is in good position. No evidence of pneumothorax. Improving lung aeration with decreasing congestion and bibasilar airspace disease. Kendall Lara MD Abdomen CT 11/01/16 0000 Signed Impressions: Service Date/Time: October 15:20 - CONCLUSION: No abnormalities are seen with respect to the liver or spleen. Previously noted small fluid collections adjacent to the small bowel loops within the right lower quadrant are no longer present. The configuration of the small bowel loops adjacent to the intra-abdominal wall at the site of mesh repair are consistent with areas of adhesion. No evidence of bowel obstruction.. Hoda Ash MD Abdomen/Pelvis CT 10/19/16 0000 Signed Impressions: Service Date/Time: September 15:10 - CONCLUSION: 1. There are 2 small rim-enhancing fluid collections in the right mid abdomen adjacent to the distal ileum that extends into the ileostomy. These measure 2.6 x 1.3 cm and 2.1 x 1.6 cm. These could represent infected fluid collections but are too small to place a drainage catheter. There is an additional small subcapsular fluid collection along the anterior left lobe of the liver. 2. Additionally, there is wall thickening of the distal ileal loops along with marked mesenteric edema. 3. There is a small volume of free fluid in the left upper quadrant around the spleen and in the pelvis. 4. There is a new small left pleural effusion with compressive atelectasis and right lower lobe volume loss versus airspace consolidation. Calixto Uriostegui MD Liver Ultrasound 07/12/16 0000 Signed Impressions: Service Date/Time: Tuesday, July 12, 2016 18:07 - CONCLUSION: 1. No acute abnormality demonstrated. 2. Heterogeneous liver without measurable mass. 3. Small and heterogeneous spleen without a measurable mass. 4. Cortical thinning and scarring of the right kidney. 5. Previous cholecystectomy. Calixto Woodruff MD Chest CT 07/09/16 0000 Signed Impressions: Service Date/Time: Saturday, July 09, 2016 14:43 - CONCLUSION: 1. Small right pleural effusion and minimal right basilar consolidation. 2. 6 mm left basilar nodule. Followup CT chest 6 months recommended. Florian Pepper MD Lower Extremity Ultrasound 06/25/16 0000 Signed Impressions: Service Date/Time: Saturday, June 25, 2016 15:56 - CONCLUSION: Negative exam with no evidence of deep venous thrombosis. Soft tissue edema. Mike Leija MD Port Line Insertion 06/20/16 0000 Signed Impressions: Service Date/Time: Monday, June 20, 2016 08:53 - CONCLUSION: Uncomplicated ultrasound and fluoroscopic guided implanted central venous port catheter placement as described in detail above. An 8 [employer] port was placed. Kevan Salgado Jr., MD Physical Exam CONSTITUTIONAL/GENERAL: fully awake and alert ill appearing Conversant PICC LUE. PORT incision is dry and clean at previous PORT site, no skin changes SKIN: No jaundice, rashes, or lesions. Skin temperature appropriate. Not diaphoretic. HEAD: Atraumatic. Normocephalic. EYES: Pupils equal and round and reactive. Extraocular motions intact. No scleral icterus. No injection or drainage. Fundi not examined. ENT: Oral mucosae without visible erythema, exudates, masses, or lesions. CARDIOVASCULAR: Regular rate and rhythm without murmurs, gallops, or rubs. No JVD. RESPIRATORY/CHEST: Symmetric, unlabored respirations. Rhonchi to auscultation. Breath sounds equal bilaterally. + occ wet cough GASTROINTESTINAL: minimally distended, minimal tenderness, Stool in bags. GENITOURINARY: Without palpable bladder distension. Hamlin catheter in place with clear yellow urine MUSCULOSKELETAL: Extremities without clubbing, cyanosis, No edema. 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 fungal endocarditis: repat 2 D echo negative for vegetations - no e/o intraabdominal source of fungemia on CT Floaters - no fungal endophthalmitis per ophthal eval Intraabd abscesses, small : dw Dr Hill: no clin significance nosocomial PNA , KLEBSIELLA PNEUMONIAE ESBL POS Prognosis is not good in the view of persistent infection poor overall performance status and TPN dependence RECOMMENDATION cont fluconazole (follow CMP once a week to check on LFTs) per plan for total of 6 weeks (tentative stop date Nov) Lorenzo cultures Start Meropenem IV (prior MRDO/ESBL concern for line infection vs other HAIs) Start Zyvox IV( [facility]). Blood culture from PICC line. Concern for dehydration in setting of infection as patients oral intake is poor. Raghavendra Hines to get stat lactic acid, fluid bolus, start telemetry. Follow clinically after fluid bolus and consider transfer to ICU based on further clinical assessment. also discussed to get palliative care reconsulted to address goals of therapy. Concern for new infection versus persistent fungemia secondary to fungal endocarditis. Follow cultures Patient appear very ill today. Time spent in excess of 40 mins, critical thinking and decision making. Dorcas Carrillo MD Nov 20, 2016 14:42
[2016-11-20 15:18] LABS: BACTERIA, URINE FEW /hpf; BLOOD, URINE MOD (NEG); CALCIUM OXALATE CRYSTALS,URINE RARE /hpf; COMMENT (UR) CATH-CULTURE IND; CULTURE IF INDICATED CATH CULTURE IND; GLUCOSE,URINE NEG (NEG); KETONE, URINE NEG (NEG); MUCUS URINE FEW /lpf (OCC); NITRITE,URINE NEG (NEG); PH, URINE 5.5 (5.0-8.5); SQUAMOUS EPITHELIAL CELL URINE 1 /hpf (0-5); URINE COLOR YELLOW (YELLW/STRAW)
[2016-11-20] MEDS ORDERED: MICAFUNGIN INJ 150 MG in SODIUM CHLORIDE 0.9% INJ 100 ML IV SCH ×2 (16:00→17:00)
[2016-11-20] MEDS: LINEZOLID 600 MG PREMIX 300 ML IV SCH (16:32)
[2016-11-20] MEDS: FLUCONAZOLE 400 MG PREMIX BAG 200 ML IV SCH (16:32)
[2016-11-20] MEDS: RESP: ALBUTEROL 2.5 MG/IPRATROPIUM 0.5 MG NEB (PRN) NEB (18:03)
--- NOTE | 2016-11-20 18:06 | PD.CAR.PN ---
CVT Progress Note Subjective/Hospital Course: 70-year-old female with a complex medical and surgical history of peripheral vascular disease and multiple related problems presents now status post BK amputation about a month half ago. Patient went to skilled nursing and apparently braced herself on the stump several times in bed in hit it against either floor or the chair not quite clear. Part of the stump opened up and at this point patient is dehiscence of skin deeper tissue seemed to be still intact. 06/16/16 Patient underwent yesterday debridement of the stump with wound VAC placement. The dehiscence is fortunately superficial involving skin and muscle in this as been debrided successfully while the rest of the tissues of bleeding and are viable. Wound VAC has been placed Cultures have been reviewed and antibiotics can be adjusted by medicine as appropriate We'll continue current care and patient should be able to go to skilled nursing with a wound VAC by Sunday Patient's nutritional status is very poor with a low albumen and prealbumin level and therefore nutritional evaluation and recommendations are requested I believe the patient is not taking sufficient by mouth in the skilled nursing and may need supplemental enteral or parenteral feedings at this point 06/17/16 I reviewed the nutritional parameters and patient's prealbumin and transferrin levels a critically low indicating severe malnutrition. Patient's healing is impaired and so is the rehabilitative potential. After reviewing to nutritional recommendations once these are made, we will decide whether patient needs an Defilm-b-Cgsw placed for additional parenteral nutrition for short bowel syndrome Stump is nice and clean with minimal drainage from the wound VAC 06/19/16 Still awaiting nutritional consult and evaluation for patient has short gut syndrome and will probably need additional parenteral feedings. If so patient will need Flghvy-d-Aehw placement for additional feedings Patient is taking excellent by mouth but despite that her nutritional status is poor and hence the healing issues Left BKA stump incision is clean and wound VAC is in place with minimal drainage and will need to be changed today Awaiting wound care to change the wound VAC. Infectious disease help is much appreciated 06/20/2016 Patient doing well at this time. Stump is clean and the wound VAC will be changed today Patient had Idqope-v-Oarp placed by radiology for supplemental parenteral feedings. Grateful for the nutritional evaluation. Patient will be placed on TPN at about the 1500 non-protein calories a day split about 60-70% in glucose and about 30% in form of lipids Patient will likely have to be discharged on supplemental TPN in face of her short bowel syndrome 06/21/16 Patient is doing really well at this time She's taking good by mouth diet. 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 There is some granulation tissue which may eventually need to be debrided but at this point I would leave it alone. Stump wound VAC has been changed and this is clean and granulating nicely. Patient is currently on TPN which tolerating well. In face of her short bowel syndrome patient will need TPN after discharge from the hospital. Grateful to case management for making arrangements for the same 06/22/16 Vital signs stable patient is doing well. Her appetite has improved and patient is taking good by mouth diet and having regular bowel movements. The abdominal incision is completely healed and fistula has completely resolved. The BKA wound VAC has been changed and wound is clean and granulating nicely. Dmikds-d-Bbro is being used for additional parenteral feedings necessary and short bowel syndrome and patient will be discharged on TPN. 06/23/16 Patient underwent today change of the wound VAC and the wound is clean. Next with will be the last wound VAC change and after that I plan to take the patient to the OR for irrigation and closure of the wound by the middle of the next week. 06/24/16 Patient doing very well at this time she is in a good mood and taking by mouth diet well Unfortunately due to the short bowel syndrome she need supplemental TPN feedings at this time Stump is healed nicely there is a small scab anterior to it and this should allow to fall off on its own Once the arrangements are made for outpatient TPN patient will be able to be discharged Awaiting case management to make the arrangements for outpatient TPN 06/25/16 Vital signs stable Patient is awake and alert and oriented, taking by mouth diet very well Abdomen is soft and the colocutaneous fistula is completely closed The BKA stump has an eschar and a scab but I would leave this alone because underneath its healing nicely. Patient remains on TPN considering the short gut syndrome and will go home on the same Mild anemia is dilutional due to TPN administration and intravenous fluids and does not require therapy at this time 06/26/16 Vital signs stable Patient is awake and alert and oriented, taking by mouth diet very well Abdomen is soft and the colocutaneous fistula is completely closed The BKA stump has an eschar and a scab but I would leave this alone because underneath its healing nicely. Patient remains on TPN considering the short gut syndrome and will go home on the same Mild anemia is dilutional due to TPN administration and intravenous fluids and does not require therapy at this time 06/27/16 Wound VAC has been removed by me and the the entire stump is healed very nicely except a small area but an inch length at the very lateral portion of the incision were we going to put a very small wound VAC on for another week or so. Patient can transfer to rehabilitation at any time as long as she can get intravenous TPN in the process 06/28/16 Wound VAC has been removed by me and the the entire stump is healed very nicely except a small area but an inch length at the very lateral portion of the incision were we going to put a very small wound VAC on for another week or so. Patient can transfer to rehabilitation at any time as long as she can get intravenous TPN Patient will need adjunct faculty for medical terminology TPN considering short gut syndrome and this can be done either in a skilled nursing or at home I suspect this will be about a six-month process and after that patient may not need additional feedings if we can get her in a reasonable nutritional status in the meantime. I understand the difficulty this creates for case management to find her such an arrangement 06/29/16 Patient doing really well at this time taking good by mouth but due to the short bowel syndrome will require long-term TPN Stump is healing really nicely and the probably after this week we will remove the wound VAC and simply place wet-to-dry dressing and allow this to heal 06/30/16 Patient is doing well tolerates diet. Abdomen is soft with active bowel sounds Incisions are clean and dry Wound VAC last change will be next week and after that we going to remove the wound VAC and continue wet-to-dry dressing Stump is healing really nicely Due to TPN and other issues placement remains a problem 07/01/16 Abdomen soft and active bowel sounds Tolerates diet well Stump is clean and dry and I'll remove the wound VAC on Sunday after that patient will just be on wet-to-dry dressings until the stump heels Arrangements for discharge to difficult due to long-term TPN needs 07/03/16 Vital signs stable Stump is clean and wound VAC after next removal won't need to be applied again Patient will remain long-term on TPN and I'm waiting for case management to make discharge arrangements Will [facility] medicine kindly if patient can be transferred to medicine service at this time 07/14/16 Patient is a placement issue apparently is still in the hospital The left BKA stump is healed nicely except for very small air about 1 cm which is granulating in on the lateral aspect of the stump Apparently the enterocutaneous fistula was close for about month and a half and opened up 2 days ago draining some stool It should be noted that the bowel is quite close to the skin and patient is very thin and malnourished so it is not surprising that fistula opens and closes sporadically. With enteral and parenteral nutrition that should close but clearly patient is very frail and it could open up any time Nothing to add to care at this time 07/26/16 Discussed the patient with medical attending. She has systemic cutaneous herpes zoster and is on appropriate medications The drainage from anterior abdominal wall is very minimal however irritating to the skin of the abdominal wall in face of herpes and the nature of intestinal fluid. Just putting dressings will only worsen the situation so patient should be treated with the stoma and coverage of the skin. Unfortunately the colostomy material will not stick to the skin and the contents will leak underneath it. At point is best solution was due to apply Silvadene ointment daily and then dressing Patient's appetite is very poor sure refuses food and she remains on TPN although her GI tract is completely patent Her prognosis in general is for due to malnutrition short bowel syndrome and immune failure. 09/01/[address] [facility]. Patient has tremendously improved in the last month or so. The rash she had has since disappeared I am not sure this was a herpetic rash or perhaps caused by zinc or selenium deficiency At this point patient is eating well and she is again about 15 pounds. Her short bowel syndrome as being managed adequately with improvement of by mouth intake and modification of the diet Abdomen is soft with active bowel sounds and the fistula has closed There is small amount of preperitoneal fat extruding from the abdomen incision. I debrided this at the bedside In the worse case scenario patient would have to go to the operating room to have this cauterized away and reclosed but I would certainly like to avoid this in this lady was finally recovering nicely 11/20/16 Last night patient was straining when going to bathroom and enterocutaneous fistula opened up again Patient is now draining stool over the last 24 hours. 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 She underwent several surgeries and it is a miracle that patient has survived all this. The fistulous tract has now opened and closed about 5 times since September last year when patient's first came and this is now another instance of the same. As far as the fistulous tract is concerned this patient is not a candidate for an open surgery due to malnutrition, short bowel syndrome in the anatomic considerations. Going into this abdomen with resultant multiple fistulas, damage to the remaining small bowel and likely of the patient Therefore the appropriate way to manage this as conservatively filled the fistula tracts closes again Physical examination reveals skin inferior to the fistula to be starting to get red again and irritated although it was nicely healed as stated in above note It should be noted that this is distal small bowel content and therefore fairly caustic so meticulous care has to be taken not to allow this to be in contact with the skin On my arrival one part of the fistula in the midline is covered with a colostomy bag while the stool is freely draining all over the patient's abdomen between the legs and on the bed I went into the room ostomy nurse to come with me and removed personally everything cleaned patient up with nursing assistance I said down with the change house attendant and the nurse and explained in detail how this should be covered and how the stoma should be structured in order to protect the skin Apparently large pieces of stoma skin adhesive material are not available here and let to be brought from [facility]. The same large pieces were used when patient first came to [place] and care was described in orders At this point meticulous care has to be taken in order to prevent skin damage and free leakage It is also imperative that the wound care gets involved in management of this patient 10/30/16 Patient had the spike a fever today to 101.8 White count 16,000 Abdomen is soft with active bowel sounds and ileostomy is working very well Bilateral breath sounds and no rhonchi or rales Wound VAC has been changed today and I'll look to the wound leg really looks nice and healing very nicely with good granulation tissue No signs of dehiscence I believe the fever spikes are part of the fungemia and unfortunately 30-50% of patients will develop systemic fungemia in this setting will succumb to the same despite maximum therapy Patient remains on micafungin Continue care 10/31/16 Abdomen is soft and active bowel sounds and incision is nice and granulating underneath the wound VAC Ileostomy working fine White count is coming down and patient hasn't had any fever spikes since placed on Diflucan and micafungin Unfortunately patient refuses to eat and also refuses to get out of bed Physical therapy and occupational therapy of trying to mobilize the patient but she will not cooperate She also refuses to take by mouth diet but drinks high caloric supplements at least Respiratory-gillette patient is doing well throughout the day and then 2 in the evening her sats started dropping to again improve later on Will order ABGs and perhaps do a CAT scan of the chest to assess for any effusions or any other possible causes for this Again patient is very ill with fungemia which carries high mortality and ICU patient's especially with immunosuppression accompanying the clinical picture 08/22/17 I today patient is doing okay She doesn't want to take any by mouth diet except high caloric supplements Abdomen is soft active bowel sounds ileostomy and colostomy clean and midline wound is healing nicely with a the wound VAC Bilateral breath sounds decreased over the both lung chaney consistent with bilateral pulmonary consolidation unlikely mu onset lower lobe pneumonia Patient is unwilling to get out of bed and does not participate in physical occupational therapy rather chased some out of the room Discussed the care with her lawn caretaker Mrs. 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 Currently on amphotericin B and antibiotics Patient is refusing any by mouth diet and is refusing to get out of bed She will developed pneumonia and and up on the respirator again if she continues to refuse activity Midline incision wound VAC has been changed and appears to be clean and granulating nicely 11/07/16 Patient somewhat improved awake alert and oriented White count has normalized Abdomen is soft with active bowel sounds ileostomy working fine Midline incision is healing very well Patient refuses take by mouth diet except for occasional bites of something and ensure Nothing to add to care 11/08/16 Abdominal incision is clean and wound VAC is in place be changed tomorrow Ileostomy working fine Patient taking by mouth however refuses regular diet and only drinks fluids Remains afebrile at this time and infection seem to be under control Very hard to manage as far as physical therapy is concerned because patient refuses to get out of bed or participate in any therapy Have tried to explain to her the importance of physical therapy in order to get her back on her feet regain strength and mobilize as well as as a means to prevent pneumonia but patient will not get out of bed 11/13/16 Ileostomy is nice and clean working fine Unfortunately ileostomy bag got disconnected and the fluid leaked into the midline incision secondary closure site Therefore the wound VAC have to be removed wound washed and replaced It's quite difficult to protect the wounds in this situation where patient's abdomen so tiny that all the structures a sort of in close proximity I've discussed this with the wound care nurse and she was kind to change her wound VAC today Patient finally at half of her breakfast and half of her lunch today which is actually an improvement and I am happy that patient is eating more 11/14/16 All studies have normalized and cultures remain negative Patient started to take little more by mouth Abdomen is soft and ileostomy is working well The colostomy bag broke open yesterday and everything contents spilled over the midline incision according to the nurse At this point patient clearly does not need a wound VAC other than for the purposes of protecting the incision for the ileostomy and colostomy bag are leaking each time these are attached to the patient for some reason, so the only way to protect the wound at this time is with wound VAC Other than that wound is healing nicely Mac I would prefer patient not to have the wound VAC and the colostomy back to be properly applied rather than leaking every time 11/15/16 Vital signs stable Patient is awake alert and oriented Had little food today but generally refuses to eat more than a few bites Tolerates supplement feeds but will not take much of those either Abdomen is soft The midline incision is almost healed and the wound VAC has been placed mainly to protect the wound from spillage from the ileostomy while its healing It should be noted that patient's the creatinine has gone up a little bit and this is not quite clear as far as the cause for patient's well hydrated The antibiotic therapy and amphotericin would clearly be the first culprits to take on as far as the creatinine increase In addition patient has increased calcium level and even corrected calcium is high sodium order PTH level to assess for hyperparathyroidism which would not be very unusual in this situation 11/16/16 Patient doing very well at this time considering the complexity of her care Midline incision is clean and granulating nicely with a tiny wound VAC over it Well-functioning ileostomy and colostomy All the cultures are coming back negative and expert ID help and input from Dr. Carlos is greatly appreciated Patient had several days of elevated calcium level and PTH has been checked which is normal This may be due to excessive administration of calcium-containing products and calcium is coming back to normal now Patients who are sedated sure and bedridden will tend to have higher levels of calcium considering that sedation state will lead to osteoclastic activity and will certainly not promote osteoblastic activity Patient should probably transfer to [place] at this time for long-term care 11/18/16 Patient is doing much better Finally taking some by mouth diet however small amounts Incision is clean and wound VAC changes are carried out on Sunday and I believe after the next removal on Sunday patient will not need wound VAC anymore as long as we can make the ileostomy adhere so he doesn't leak into the wound All cultures are negative Nothing to add to care but patient will need extensive rehabilitation She refuses physical therapy for most part and refuses to get out of bed 11/19/16 Incision is clean and dry and wound VAC strip is not draining anything Colostomy and ileostomy working well Patient feels nauseous today and week doesn't want to take anything by mouth except shakes Us to get out of bed but doesn't want to get out of bed or the chair All cultures lately negative thanks to great work of the infectious disease specialists Again patient is very weak and refuses solid foods and physical therapy but otherwise with no sources of infection Abdomen is completely benign at this point and there are no more abdominal issues to be addressed 11/20/16 Patient appears to be very weak today Refuses by mouth intake and appears very depressed All cultures are negative but patient still could have underlying endocarditis or fungemia Antibiotics were started by ID Patient just appears to be giving up and appears to be very weak Refuses to work with physical therapy and simply is despondent Agree with medical approach restarting on antibiotics and I ordered an 2-D echo to evaluate for any possible cardiac problems including cardiac failure Low Maria De Jesus studies appeared to be okay but patient is simply declining and appears ill Objective: Vital Signs Date Time Temp Pulse Resp B/P Pulse Ox O2 Delivery O2 Flow Rate FiO2 11/20/16 17:31 103/49 11/20/16 15:53 97.3 72 20 103/57 95 11/20/16 15:49 95 Nasal Cannula 4.00 11/20/16 13:00 96 Nasal Cannula 4.00 11/20/16 12:20 100.0 112 20 107/47 93 11/20/16 09:10 100.1 103 20 105/49 96 11/20/16 04:19 99.2 102 20 100/62 94 11/20/16 00:00 99.6 100 20 100/52 95 11/19/16 22:50 95 Nasal Cannula 4.00 11/19/16 20:00 100.0 100 18 106/51 95 Labs: Laboratory Tests Test 11/20/16 14:44 Urine Color YELLOW (YELLW/STRAW) Urine Turbidity HAZY (CLEAR) Urine pH 5.5 (5.0-8.5) Urine Specific [place] 1.015 (1.002-1.035) Urine Protein 30 mg/dL (NEG-TRACE) Urine Glucose (UA) NEG mg/dL (NEG) Urine Ketones NEG mg/dL (NEG) Urine Occult Blood MOD (NEG) Urine Nitrite NEG (NEG) Urine Bilirubin NEG (NEG) Urine Urobilinogen LESS THAN 2.0 MG/DL (LESS THAN 2.0) Urine Leukocyte Esterase MOD (NEG) Urine RBC 4 /hpf (0-3) Urine WBC 21 /hpf (0-5) Urine Squamous Epithelial 1 /hpf (0-5) Cells Urine Calcium Oxalate Crystals RARE /hpf (NONE) Urine Bacteria FEW /hpf (NONE) Urine Mucus FEW /lpf (OCC) Microscopic Urinalysis Comment CATH-CULTURE IND Lactic Acid Level 1.2 mmol/L (0.4-2.0) Result Diagram: 11/20/16 0600 11/20/16 0600 Janice Olvera MD Nov 20, 2016 18:06
[2016-11-20] MEDS: HYDROmorphone HCL PF 1 MG/ML VIAL IV PUSH PRN ×2 (19:51→23:01)
[2016-11-20] MEDS: MEROPENEM INJ 500 MG in SODIUM CHLORIDE 0.9% INJ 100 ML IV SCH (19:51)
[2016-11-20] MEDS: MIRTAZAPINE ODT 30 MG TAB PO SCH (21:32)
[2016-11-20] MEDS: CLINIMIX E 5/25 2000 mL- >42 mls/hr IV-CENTRAL SCH ×3 (21:50)
[2016-11-21] VITALS (10 sets, daily range): BP systolic 86–102; BP diastolic 48–64; PULSE 90–113; RESP 22–30; TEMP 97.6–100.1; O2SAT 89–96
[2016-11-21] MEDS: MEROPENEM INJ 500 MG in SODIUM CHLORIDE 0.9% INJ 100 ML IV SCH ×2 (01:36→08:56)
[2016-11-21] MEDS: PANTOPRAZOLE SODIUM 40 MG VIAL IV PUSH SCH (01:37)
[2016-11-21] MEDS ORDERED: SODIUM CHLOR 0.9% 250 ML INJ 250 ML IV ONE ×2 (02:30→09:15)
[2016-11-21] MEDS: OXYBUTYNIN CHLORIDE 5 MG TAB PO SCH (04:17)
[2016-11-21] MEDS: LINEZOLID 600 MG PREMIX 300 ML IV SCH (04:18)
[2016-11-21] MEDS: RESP: ALBUTEROL 2.5 MG/IPRATROPIUM 0.5 MG NEB (PRN) NEB ×2 (04:42→15:13)
[2016-11-21] MEDS: INSULIN ASPART SUPPLEMENTAL SCALE SQ SCH (05:29)
[2016-11-21 06:08] LABS: AUTOMATED NEUTROPHIL # 11.7 TH/MM3 (1.8-7.7); BASOPHIL # 0.1 TH/MM3 (0-0.2); EOSINOPHIL # 0.2 TH/MM3 (0-0.4); EOSINOPHIL % 1.4 % (0.0-4.0); HEMATOCRIT 27.3 % (35.0-46.0); HEMO FLAGS DIFF FINAL; LYMPH % 15.3 % (9.0-44.0); LYMPHOCYTE # 2.3 TH/MM3 (1.0-4.8); MEAN CELL VOLUME 90.3 FL (80.0-100.0); MEAN CORPUSCULAR HEMOGLOBIN 28.7 PG (27.0-34.0); MEAN CORPUSCULAR HGB CONC 31.7 % (32.0-36.0); MONO % 5.1 % (0.0-8.0); NEUT % 77.2 % (16.0-70.0); PLATELET COUNT 272 TH/MM3 (150-450); RED BLOOD COUNT 3.02 MIL/MM3 (4.00-5.30); RED CELL DISTRIBUTION WIDTH 18.1 % (11.6-17.2); WHITE BLOOD COUNT 15.1 TH/MM3 (4.0-11.0)
--- NOTE | 2016-11-21 06:13 | RADRPT ---
EXAM DATE/TIME: 11/21/2016 05:58 [facility] COMPARISON: CHEST SINGLE AP, November 20, 2016, 13:09. INDICATIONS : Shortness of breath. MEDICAL HISTORY : Hypertension. Cardiovascular disease. Carcinoma, breast. GERD SURGICAL HISTORY : Hysterectomy. ENCOUNTER: Initial ACUITY: 1 month PAIN SCORE: 0/10 LOCATION: Bilateral chest FINDINGS: There worsening perihilar infiltrates. Also worsening patchy consolidation in the left mid and lower lung. A small left pleural effusion is again noted, fairly similar to yesterday. No pneumothorax demo nstrated. Mild cardiomegaly is stable. Left arm PICC again noted, tip at the atriocaval junction. CONCLUSION: Worsening left mid and basilar consolidation. Developing bilateral perihilar infiltrates. Calixto Woodruff MD on November 21, 2016 at 6:10 Board Certified Radiologist. This report was verified electronically.
[2016-11-21 06:17] LABS: BLOOD GAS BASE EXCESS -0.5 mmol/L (-2-2); BLOOD GAS CARBOXYHEMOGLOBIN 1.8 % (0-4); BLOOD GAS HCO3 24 mmol/L (22-26); BLOOD GAS METHEMOGLOBIN 0.9 % (0-2); BLOOD GAS O2 HGB SATURATION 82 % (90-100); BLOOD GAS OXYGEN CONTENT 12.6 Vol % (12.0-20.0); BLOOD GAS PCO2 43 mmHg (38-42); BLOOD GAS PO2 53 mmHg (61-120); BLOOD GAS TOTAL HGB 10.9 G/DL (12.0-16.0); TEMP CORR TO 98.6
[2016-11-21 06:20] LABS: CRITICAL VALUE YES; DRAW SITE RT RADIAL; FIO2 50 %; NUMBER OF ARTERIAL PUNCTURES 1; OXYGEN DEVICE Venti Mask; STAT YES; ULNAR PULSE PRESENT
[2016-11-21 06:30] LABS: BICARBONATE 27.5 MEQ/L (21.0-32.0); POTASSIUM 4.1 MEQ/L (3.5-5.1)
[2016-11-21] MEDS: CHLORHEXIDINE 0.12% (ORAL KIT) 15 ML CUP MT SCH (08:00)
--- NOTE | 2016-11-21 08:52 | HHI.PR ---
Subjective Remarks Follow-up for possible fungemia I was called by RN for decompensation, patient remains hypotensive, tachycardic , and tachypneic. Stat chest x-ray and ABG done. Patient says that she feels about the same as yesterday, appears very weak, can barely answer questions, tachypneic in the 30s, denies any pain, short of breath, coughing, low-grade fever present. Objective Vitals Vital Signs Date Time Temp Pulse Resp B/P Pulse Ox O2 Delivery O2 Flow Rate FiO2 11/21/16 04:51 90 Venturi Mask 50 11/21/16 04:22 100.1 100 25 91/50 89 11/21/16 02:30 100 100/52 11/21/16 01:30 90 86/60 11/21/16 00:00 99.0 100 22 86/48 90 11/20/16 22:00 Nasal Cannula 4.00 21 Humidified 11/20/16 20:00 116 11/20/16 20:00 98.6 115 24 106/56 90 11/20/16 17:31 103/49 11/20/16 15:53 97.3 72 20 103/57 95 11/20/16 15:49 95 Nasal Cannula 4.00 11/20/16 13:00 96 Nasal Cannula 4.00 11/20/16 12:20 100.0 112 20 107/47 93 11/20/16 11:30 96 Nasal Cannula 4.00 21 Humidified 11/20/16 09:10 100.1 103 20 105/49 96 I/O 11/20/16 11/20/16 11/20/16 11/21/16 11/21/16 11/21/16 07:00 15:00 23:00 07:00 15:00 23:00 Intake Total 1198 ml 720 ml 1714 ml 1350 ml Output Total 250 ml 750 ml 750 ml 775 ml Balance 948 ml -30 ml 964 ml 575 ml Intake Oral 120 ml 720 ml 120 ml 120 ml IV Total 500 ml 750 ml TPN/PPN 906 ml 1094 ml 480 ml Lipid 172 ml Output Urine Total 250 ml 750 ml 550 ml 450 ml Stool Total 200 ml 325 ml Drainage Total 0 ml 0 ml 0 ml # Bowel Movements 0 Result Diagram: 1/31/17 0530 1/31/17 0530 Objective Remarks General: Chronically ill appearing female, appears very weak, in mild-to- moderate respiratory distress PERRL, pale conjunctivae, with spurring Heart: Tachycardic, no murmurs appreciated. Lungs: Tachypneic, decreased symmetrically, no crackles or wheezing. Abdomen: Ileostomy in place, dressings in place, wound VAC in place Extremities: No right lower extremity edema. Left BKA. Awake, alert, oriented to self,, not sure if oriented to time, whispering, moves extremities, positive for generalized weakness. Procedures Left stump debridement by Dr. Hill on 06/15/16 Bedside debridement of preperitoneal fat that was protruding from the abdominal fistula 09/01/16 central line placement Exploratory laparotomy, resection of the anterior abdominal wall fistula tract, resection of the transverse colon to small bowel anastomosis, lysis of adhesions of the small bowel with repair of two enterotomies, right-sided ileostomy, left-sided mucous fistula and partial removal of a ventral hernia mesh. A/P Problem List: (1) Septic shock ICD Code: A41.9 Status: Resolved (2) Acute hypoxemic respiratory failure ICD Code: J96.01 Status: Acute (3) Ischemic colitis ICD Code: K55.9 Status: Resolved (4) COPD (chronic obstructive pulmonary disease) ICD Code: J44.9 Status: Chronic (5) depression Status: Chronic (6) Peripheral neuropathy ICD Code: G62.9 Status: Chronic (7) Chronic diastolic (congestive) heart failure ICD Code: I50.32 Status: Chronic (8) ZIA (acute kidney injury) ICD Code: N17.9 Status: Resolved (9) emergent Ex Lap for ischemic bowel/perforation 10/08/16 Status: Resolved (10) Acute blood loss anemia ICD Code: D62 Status: Resolved (11) Leukocytosis ICD Code: D72.829 Status: Acute (12) Hypokalemia ICD Code: E87.6 Status: Resolved Assessment and Plan Brought forward from previous M.D. documentation: "Ms. Wilson is a pleasant 71 year old female who was admitted to the hospital in Oct 2015 due to ischemic bowel and subsequently underwent resection of large, small bowel and cholecystectomy. 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 Patient was discharged to SNF but returned to the hospital due to post surgical complications. She underwent left foot amputation and subsequently had a lot of post surgical complications requiring wound vac. Patient was on TPN and after discussing with Dr. Hill we switched patient to PO diet. Based on patient's desires, we spoke to Dr. Hill regarding a second surgical opinion. Dr. Hill was kind enough to consult Dr. Grajeda who evaluated patient on 10/07/2016. On 10/08/2016, patient was transferred to the main campus after she complained of severe abdominal pain and CT scan showed ischemic bowel." Septic shock: Secondary to colitis/perforation. Resolved. Possible endocarditis, rule out fungemia with recurrence of sepsis, possibly secondary to age Versus UTI-infectious disease following, patient critically ill , hypotensive, possibly septic again, cultures negative so far. Continue meropenem, Zyvox, Diflucan to December 15 and micafungin. Restart IVF today, will give bolus, continue IVF at 100 cc per hour. Will discuss with infectious disease. Echocardiogram done previously, ejection fraction is 55-60%, follow- up repeat echocardiogram to check for vegetation. Possible pneumonia as well, leukocytosis improving. Chest x-ray today reviewed, worsening left mid and basilar consolidation with perihilar infiltrates. Acute respiratory failure-likely secondary to hospital-acquired pneumonia-chest x-ray as above, ABG showed hypoxemia and hypercapnia, continue nonrebreather, patient DNR/DNI. Previously intubated, extubated 10/10/16, continue bronchodilators, incentive spirometry.Sputum culture from 11/01/16 grew Klebsiella ESBL+. Antibiotics per ID as above. Ischemic colitis with perforation: Status post exploratory laparotomy with resection of anterior abdominal wall fistula tract and resection of transverse colon to the small bowel anastomosis. Right-sided ileostomy. Appreciate surgery recommendations. Wound vac in place. Acute renal failure-worsening again, possibly on top of chronic kidney disease, IVF as above, could be secondary to dehydration. Chest abscess, persistent fungemia: Blood and wound cultures positive for Danni. Appreciate infectious disease recommendations. Amphotericin B discontinued. Continue fluconazole for a total of 6 weeks (tentative stop date ). Malnutrition: Secondary to bowel surgery. Continue TPN. Encourage oral intake. Appreciate dietary recommendations. Appreciate GI recommendations. Continue cholestyramine. Anemia secondary to acute blood loss: Status post transfusion of 4 units PRBCs on 10/08/16. Hemoglobin remained stable. Diabetes mellitus: Monitor Accu-Cheks and cover with sliding scale insulin. Hypercalcemia-continue IVF as above Hyperphosphatemia-resolved, thought to be secondary to vitamin D toxicity Tremors-improved with propranolol, neurology workup as outpatient, hold propranolol. Left BKA stump infection: Infectious disease following, antibiotics as above, vascular surgery following. Delirium-has intermittent confusion, could be secondary to sepsis. Depression: Continue Remeron, Celexa. Xarelto for DVT prophylaxis. Discussed with RN Transferred to our [facility] or [facility]. Consult palliative care. DNR/DNI. Aggregate critical care time was 35 minutes spent at bedside or in the hospital centeno. Time to perform other separately billable procedures was not included in the critical care time. My time did not include minutes spent treating any other patients simultaneously or on activities that did not directly contribute to the patient's treatment. The services I provided to this patient were to treat and/or prevent clinically significant deterioration that could result in: organ failure, , disability or imminent clinical deterioration in the patient's condition. I provided critical care services requiring my management, as noted below: chart data review, documentation time, medication orders and management, vital sign assessments/reviewing monitor data, ordering and reviewing lab tests, ordering and interpreting/reviewing x-rays and diagnostic studies, care of the patient and discussion with other physicians and caregivers as needed. Chao Moore MD Nov 21, 2016 08:52
[2016-11-21] MEDS: SODIUM CHLORIDE 0.9% FLUSH 5 ML FLUSH IVF SCH (08:59)
[2016-11-21] MEDS: RIVAROXABAN 15 MG TAB PO SCH (09:00)
[2016-11-21] MEDS: POTASSIUM CL 40 MEQ/30 ML LIQ UDC PO SCH (09:00)
[2016-11-21] MEDS: ZINC SULFATE 220 MG CAP PO SCH (09:00)
[2016-11-21] MEDS: FERROUS SULFATE 325 MG (65 MG ELEMENTAL IRON) TAB PO SCH (09:00)
[2016-11-21] MEDS: CALCIUM/VITAMIN D 250 MG/125 U TAB PO SCH (09:00)
[2016-11-21] MEDS: OCTREOTIDE INJ 100 MCG/ML VIAL SQ SCH (09:00)
[2016-11-21] MEDS: PROPRANOLOL HCL 40 MG TAB PO SCH (09:00)
[2016-11-21] MEDS: NYSTATIN 100,000 U/GM PWD 15 GM BTL TOPICAL SCH (09:01)
[2016-11-21] MEDS: DULoxetine HCl DR 30 MG CAP PO SCH (09:01)
[2016-11-21] MEDS: DIPHENOXYLATE/ATROPINE 2.5 MG/0.025 MG/5 ML CUP PO SCH (09:01)
[2016-11-21] MEDS: CHOLESTYRAMINE LIGHT 4 GM PACKAGE PO SCH (09:01)
[2016-11-21] MEDS: ONDANSETRON HCL 4 MG/2 ML VIAL IV PUSH PRN (09:02)
[2016-11-21] MEDS ORDERED: SODIUM CHLOR 0.9% 1000 ML INJ 1,000 ML IV SCH (09:15)
--- NOTE | 2016-11-21 10:41 | HHI.HCPN ---
Reason for visit a. To assist with evaluation and management of symptoms including: Pain, anxiety, depression b. To assist medical decision maker(s) with: better understanding of current medical conditions; weighing benefits/burdens of medical treatment options; making medical treatment decisions. . Subjective/Interval History INTERVAL NOTE: Toshia has continued to decline steadily, and now is lethargic, diaphoretic, tachypneic. She is even more profoundly weak, and clearly is dying. She is able to only mumble a couple words. She has been febrile intermittently again the past couple days, but continues to decline in spite of antibiotics again. The chest x-ray this morning shows worsening pneumonia, bilateral. I reminded her of our discussion couple months ago and again over the past couple weeks about the likelihood that she would continue to decline and become even more appropriate for hospice services, and she acknowledged that. She is no longer declining hospice services, and she understands that is likely to come soon. . Family/friend interactions I telephoned HCS Anuradha Christian RN. I also tried to call the patient's but got no answer. Advance Directives Living Will: Completed, but not made available Health Care Surrogate: Copy in medical record Durable Power of Internal Audit Consultant: Never completed Advance Directive Specifics Health Care Surrogate(s): Primary HCS is her close friend Anuradha Christian, and secondary is her Dwight Wilson. The HCS that is in the record here is not dated. . Objective Vital Signs Date Time Temp Pulse Resp B/P Pulse Ox O2 Delivery O2 Flow Rate FiO2 11/21/16 08:51 94 Partial Rebreather 12.00 11/21/16 08:00 99.3 113 29 100/57 95 11/21/16 04:51 90 Venturi Mask 50 11/21/16 04:22 100.1 100 25 91/50 89 11/21/16 02:30 100 100/52 11/21/16 01:30 90 86/60 11/21/16 00:00 99.0 100 22 86/48 90 11/20/16 22:00 Nasal Cannula 4.00 21 Humidified 11/20/16 20:00 116 11/20/16 20:00 98.6 115 24 106/56 90 11/20/16 17:31 103/49 11/20/16 15:53 97.3 72 20 103/57 95 11/20/16 15:49 95 Nasal Cannula 4.00 11/20/16 13:00 96 Nasal Cannula 4.00 11/20/16 12:20 100.0 112 20 107/47 93 11/20/16 11:30 96 Nasal Cannula 4.00 21 Humidified Intake & Output 11/21/16 11/21/16 07:00 19:00 Intake Total 2450 ml Output Total 1325 ml Balance 1125 ml Intake Oral 240 ml IV Total 1250 ml TPN/PPN 960 ml Output Urine Total 1000 ml Stool Total 325 ml Drainage Total 0 ml Physical Exam CONSTITUTIONAL/GENERAL: chronically ill appearing very weak female, O2 mask in place, tachypnea at a rate more than 30, some diaphoresis SKIN: Pale. Skin temperature appropriate. Ileostomy, colostomy is noted patent. + sloughing of some skin to fingertips. Midline abdominal incision with wound VAC dressing. CARDIOVASCULAR: Regular rate and rhythm, no murmur. No JVD. RESPIRATORY/CHEST: Symmetric, moderately labeled respirations on O2 by mask. Decreased air movement throughout. GASTROINTESTINAL: Soft,+tender, bowel sounds active. Ileostomy and colostomy present. + Liquid brown stool present. Midline incision with wound VAC dressing intact. MUSCULOSKELETAL: Extremities without clubbing, cyanosis, or edema. Left Stump now well healed. No mottling or clubbing. NEUROLOGICAL: Lethargic, mumbles a couple words. Limited engagement. Follows simple commands. PSYCHIATRIC: tearful at times, otherwise no anxiety noted. . Diagnostic Tests Laboratory Laboratory Tests Test 11/18/16 11/18/16 11/19/16 11/20/16 11:20 21:40 06:00 06:00 Blood Gas Puncture Site LT RADIAL Blood Gas Patient Temperature 98.6 Blood Gas HCO3 28 mmol/L (22-26) Blood Gas Base Excess 2.6 mmol/L (-2-2) Blood Gas Oxygen Saturation 97 % (90-100) Arterial Blood pH 7.36 (7.380-7.420) Arterial Blood Partial 50 mmHg (38-42) Pressure CO2 Arterial Blood Partial 178 mmHg Pressure O2 (61-120) Arterial Blood Oxygen Content 14.5 Vol % (12.0-20.0) Arterial Blood 1.3 % (0-4) Carboxyhemoglobin Arterial Blood Methemoglobin 0.7 % (0-2) Blood Gas Hemoglobin 10.3 G/DL (12.0-16.0) Oxygen Delivery Device PRB Blood Gas Liter Flow 15 L/M Sodium Level 146 MEQ/L 146 MEQ/L 147 MEQ/L (136-145) (136-145) (136-145) Potassium Level 3.9 MEQ/L 3.6 MEQ/L 3.2 MEQ/L (3.5-5.1) (3.5-5.1) (3.5-5.1) Chloride Level 110 MEQ/L 110 MEQ/L 110 MEQ/L (98-107) (98-107) (98-107) Carbon Dioxide Level 30.1 MEQ/L 31.3 MEQ/L 29.2 MEQ/L (21.0-32.0) (21.0-32.0) (21.0-32.0) Anion Gap 6 MEQ/L (5-15) 5 MEQ/L (5-15) 8 MEQ/L (5-15) Blood Urea Nitrogen 39 MG/DL (7-18) 39 MG/DL (7-18) 41 MG/DL (7-18) Creatinine 1.40 MG/DL 1.41 MG/DL 1.54 MG/DL (0.50-1.00) (0.50-1.00) (0.50-1.00) Estimat Glomerular Filtration 37 ML/MIN (>89) 37 ML/MIN (>89) 33 ML/MIN (>89) Rate Random Glucose 208 MG/DL 168 MG/DL 217 MG/DL (74-106) (74-106) (74-106) Calcium Level 11.0 MG/DL 11.0 MG/DL 11.2 MG/DL (8.5-10.1) (8.5-10.1) (8.5-10.1) White Blood Count 11.6 TH/MM3 18.1 TH/MM3 (4.0-11.0) (4.0-11.0) Red Blood Count 3.40 MIL/MM3 3.34 MIL/MM3 (4.00-5.30) (4.00-5.30) Hemoglobin 9.7 GM/DL 9.7 GM/DL (11.6-15.3) (11.6-15.3) Hematocrit 30.2 % 30.1 % (35.0-46.0) (35.0-46.0) Mean Corpuscular Volume 89.0 FL 90.1 FL (80.0-100.0) (80.0-100.0) Mean Corpuscular Hemoglobin 28.6 PG 29.0 PG (27.0-34.0) (27.0-34.0) Mean Corpuscular Hemoglobin 32.1 % 32.2 % Concent (32.0-36.0) (32.0-36.0) Red Cell Distribution Width 18.2 % 18.3 % (11.6-17.2) (11.6-17.2) Platelet Count 400 TH/MM3 341 TH/MM3 (150-450) (150-450) Mean Platelet Volume 9.1 FL 9.8 FL (7.0-11.0) (7.0-11.0) Neutrophils (%) (Auto) 68.7 % 78.8 % (16.0-70.0) (16.0-70.0) Lymphocytes (%) (Auto) 22.8 % 15.4 % (9.0-44.0) (9.0-44.0) Monocytes (%) (Auto) 6.9 % (0.0-8.0) 5.0 % (0.0-8.0) Eosinophils (%) (Auto) 0.6 % (0.0-4.0) 0.1 % (0.0-4.0) Basophils (%) (Auto) 1.0 % (0.0-2.0) 0.7 % (0.0-2.0) Neutrophils # (Auto) 8.0 TH/MM3 14.3 TH/MM3 (1.8-7.7) (1.8-7.7) Lymphocytes # (Auto) 2.6 TH/MM3 2.8 TH/MM3 (1.0-4.8) (1.0-4.8) Monocytes # (Auto) 0.8 TH/MM3 0.9 TH/MM3 (0-0.9) (0-0.9) Eosinophils # (Auto) 0.1 TH/MM3 0.0 TH/MM3 (0-0.4) (0-0.4) Basophils # (Auto) 0.1 TH/MM3 0.1 TH/MM3 (0-0.2) (0-0.2) CBC Comment DIFF FINAL DIFF FINAL Differential Comment Phosphorus Level 3.3 MG/DL (2.5-4.9) Magnesium Level 2.0 MG/DL (1.5-2.5) Total Bilirubin 0.6 MG/DL (0.2-1.0) Aspartate Amino Transf 274 U/L (15-37) (AST/SGOT) Alanine Aminotransferase 50 U/L (10-53) (ALT/SGPT) Alkaline Phosphatase 256 U/L (45-117) Total Protein 8.0 GM/DL (6.4-8.2) Albumin 1.9 GM/DL (3.4-5.0) Test 11/20/16 11/21/16 11/21/16 14:44 05:30 06:03 Urine Color YELLOW (YELLW/STRAW) Urine Turbidity HAZY (CLEAR) Urine pH 5.5 (5.0-8.5) Urine Specific [place] 1.015 (1.002-1.035) Urine Protein 30 mg/dL (NEG-TRACE) Urine Glucose (UA) NEG mg/dL (NEG) Urine Ketones NEG mg/dL (NEG) Urine Occult Blood MOD (NEG) Urine Nitrite NEG (NEG) Urine Bilirubin NEG (NEG) Urine Urobilinogen LESS THAN 2.0 MG/DL (LESS THAN 2.0) Urine Leukocyte Esterase MOD (NEG) Urine RBC 4 /hpf (0-3) Urine WBC 21 /hpf (0-5) Urine Squamous Epithelial 1 /hpf (0-5) Cells Urine Calcium Oxalate Crystals RARE /hpf (NONE) Urine Bacteria FEW /hpf (NONE) Urine Mucus FEW /lpf (OCC) Microscopic Urinalysis Comment CATH-CULTURE IND Lactic Acid Level 1.2 mmol/L (0.4-2.0) White Blood Count 15.1 TH/MM3 (4.0-11.0) Red Blood Count 3.02 MIL/MM3 (4.00-5.30) Hemoglobin 8.7 GM/DL (11.6-15.3) Hematocrit 27.3 % (35.0-46.0) Mean Corpuscular Volume 90.3 FL (80.0-100.0) Mean Corpuscular Hemoglobin 28.7 PG (27.0-34.0) Mean Corpuscular Hemoglobin 31.7 % Concent (32.0-36.0) Red Cell Distribution Width 18.1 % (11.6-17.2) Platelet Count 272 TH/MM3 (150-450) Mean Platelet Volume 9.8 FL (7.0-11.0) Neutrophils (%) (Auto) 77.2 % (16.0-70.0) Lymphocytes (%) (Auto) 15.3 % (9.0-44.0) Monocytes (%) (Auto) 5.1 % (0.0-8.0) Eosinophils (%) (Auto) 1.4 % (0.0-4.0) Basophils (%) (Auto) 1.0 % (0.0-2.0) Neutrophils # (Auto) 11.7 TH/MM3 (1.8-7.7) Lymphocytes # (Auto) 2.3 TH/MM3 (1.0-4.8) Monocytes # (Auto) 0.8 TH/MM3 (0-0.9) Eosinophils # (Auto) 0.2 TH/MM3 (0-0.4) Basophils # (Auto) 0.1 TH/MM3 (0-0.2) CBC Comment DIFF FINAL Differential Comment Sodium Level 147 MEQ/L (136-145) Potassium Level 4.1 MEQ/L (3.5-5.1) Chloride Level 112 MEQ/L (98-107) Carbon Dioxide Level 27.5 MEQ/L (21.0-32.0) Anion Gap 8 MEQ/L (5-15) Blood Urea Nitrogen 48 MG/DL (7-18) Creatinine 1.78 MG/DL (0.50-1.00) Estimat Glomerular Filtration 28 ML/MIN (>89) Rate Random Glucose 245 MG/DL (74-106) Calcium Level 10.8 MG/DL (8.5-10.1) Blood Gas Puncture Site RT RADIAL Blood Gas Patient Temperature 98.6 Blood Gas HCO3 24 mmol/L (22-26) Blood Gas Base Excess -0.5 mmol/L (-2-2) Blood Gas Oxygen Saturation 82 % (90-100) Arterial Blood pH 7.37 (7.380-7.420) Arterial Blood Partial 43 mmHg (38-42) Pressure CO2 Arterial Blood Partial 53 mmHg Pressure O2 (61-120) Arterial Blood Oxygen Content 12.6 Vol % (12.0-20.0) Arterial Blood 1.8 % (0-4) Carboxyhemoglobin Arterial Blood Methemoglobin 0.9 % (0-2) Blood Gas Hemoglobin 10.9 G/DL (12.0-16.0) Oxygen Delivery Device Venti Mask Blood Gas Inspired Oxygen 50 % Result Diagram: 11/21/16 0530 11/21/16 0530 Microbiology Microbiology Date/Time Procedure Status Source Growth 11/20/16 14:10 Aerobic Blood Culture Received Blood Peripheral Pending 11/20/16 14:10 Anaerobic Blood Culture Received Blood Peripheral Pending 11/20/16 14:15 Aerobic Blood Culture Received Blood Peripheral Pending 11/20/16 14:15 Anaerobic Blood Culture Received Blood Peripheral Pending 11/20/16 14:44 Urine Culture Received Urine Catheterized Urine Pending 11/20/16 15:02 Aerobic Blood Culture Received Blood Other Pending 11/20/16 15:02 Anaerobic Blood Culture Received Blood Other Pending 11/20/16 15:02 Aerobic Blood Culture Received Blood Other Pending 11/20/16 15:02 Anaerobic Blood Culture Received Blood Other Pending Imaging Last Impressions Chest X-Ray 11/21/16 0000 Signed Impressions: Service Date/Time: Monday, November 21, 2016 05:58 - CONCLUSION: Worsening left mid and basilar consolidation. Developing bilateral perihilar infiltrates. Calixto Woodruff MD PICC Line Insertion 11/10/16 0000 Signed Impressions: Service Date/Time: Thursday, November 10, 2016 17:07 - CONCLUSION: 1. Uncomplicated central venous Power PICC line placement. 2. The PICC line can be used immediately. Garrison Pascual MD Abdomen CT 11/01/16 0000 Signed Impressions: Service Date/Time: October 15:20 - CONCLUSION: No abnormalities are seen with respect to the liver or spleen. Previously noted small fluid collections adjacent to the small bowel loops within the right lower quadrant are no longer present. The configuration of the small bowel loops adjacent to the intra-abdominal wall at the site of mesh repair are consistent with areas of adhesion. No evidence of bowel obstruction.. Hoda Ash MD Abdomen/Pelvis CT 10/19/16 0000 Signed Impressions: Service Date/Time: September 15:10 - CONCLUSION: 1. There are 2 small rim-enhancing fluid collections in the right mid abdomen adjacent to the distal ileum that extends into the ileostomy. These measure 2.6 x 1.3 cm and 2.1 x 1.6 cm. These could represent infected fluid collections but are too small to place a drainage catheter. There is an additional small subcapsular fluid collection along the anterior left lobe of the liver. 2. Additionally, there is wall thickening of the distal ileal loops along with marked mesenteric edema. 3. There is a small volume of free fluid in the left upper quadrant around the spleen and in the pelvis. 4. There is a new small left pleural effusion with compressive atelectasis and right lower lobe volume loss versus airspace consolidation. Calixto Uriostegui MD Liver Ultrasound 07/12/16 0000 Signed Impressions: Service Date/Time: Tuesday, July 12, 2016 18:07 - CONCLUSION: 1. No acute abnormality demonstrated. 2. Heterogeneous liver without measurable mass. 3. Small and heterogeneous spleen without a measurable mass. 4. Cortical thinning and scarring of the right kidney. 5. Previous cholecystectomy. Calixto Woodruff MD Chest CT 07/09/16 0000 Signed Impressions: Service Date/Time: Saturday, July 09, 2016 14:43 - CONCLUSION: 1. Small right pleural effusion and minimal right basilar consolidation. 2. 6 mm left basilar nodule. Followup CT chest 6 months recommended. Florian Pepper MD Lower Extremity Ultrasound 06/25/16 0000 Signed Impressions: Service Date/Time: Saturday, June 25, 2016 15:56 - CONCLUSION: Negative exam with no evidence of deep venous thrombosis. Soft tissue edema. Mike Leija MD Port Line Insertion 06/20/16 0000 Signed Impressions: Service Date/Time: Monday, June 20, 2016 08:53 - CONCLUSION: Uncomplicated ultrasound and fluoroscopic guided implanted central venous port catheter placement as described in detail above. An 8 [place] Power port was placed. Kevan Salgado Jr., MD Procedures Stump debridement and wound VAC placement 06/16/16 TPN Skin biopsies, face 07/24/16 Exploratory laparotomy, ileostomy, colostomy, bowel resection 10/08/16 . 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 No other specific skin pathology noted. . (9) pulmonary nodule on CT scan, 2.6 mm at the left base (10) depression (11) COPD, not oxygen dependent (12) history of breast cancer (13) anxiety (14) anemia Symptom Scale: (1) pain 0-10 Scale: 4 (she has been receiving Dilaudid ) Comment: Pain has been mostly abdominal pain,+ r/t dressing changes . (2) anxiety 0-10 Scale: 3 Comment: Well controlled with scheduled Cymbalta, Remeron (3) depression 0-10 Scale: 2 Comment: Reasonably well controlled with Cymbalta, Remeron (4) Malnutrition 0-10 Scale: Unable to quantify Comment: albumin 1.5, on TPN. Very poor oral intake (5) Dyspnea 0-10 Scale: Unable to quantify Comment: CXR +new pneumonia, + on/off NRB mask Pertinent Non-Medical Issues Psychosocial: Second marriage for about 1 year, but most of that time in the hospital or SNF. No children, but has close friend Anuradha. Spiritual: Evaluation pending Legal: The patient has capacity for decision-making, and has designated her friend Anuradha and her Dwight as primary and secondary HCS respectively Ethical issues impacting care: None. . Important Contacts Primary HCS, close friend Anuradha Christian [phone] : Dwight Wilson [phone] . Prognosis She has suffered multiple illnesses, infections, and complications during the last 10 months, and now has undergone emergency surgery for more ischemic bowel. Her overall prognosis remains somewhat poor, and she would be an appropriate hospice candidate if her proxy decision makers elected to transition to comfort care. . Code Status: No Code Plan == DO NOT RESUSCITATE, per patient request 11/03/16 == GOALS: The patient is lethargic now, mumbling, but does acknowledge the benefit of hospice services. [facility] Anuradha has certainly felt that hospice would be appropriate. Have also spoken with the patient's today, and he has requested the [facility] for end-of-life care if it is available. HOSPICE CONSULTED. == DECISION-MAKING: The patient now appears to be too lethargic, is mumbling at times, and I feel is probably not capacitated for making her own decisions anymore.. HCS is her friend Anuradha Christian (primary) and her Dwight Wilson (secondary) == SYMPTOMS: * Pain: s/p recent ex-lap surgery; still with some sharp, intermittent pain to mid abdomen--- prn 0.5mg - 1mg hydromorphone is available * Anxiety/depression: Will add scheduled lorazepam * dyspnea- worsening bilateral pneumonia, respiratory failure now == Palliative care will continue to follow during hospital course, hospice consulted . . Time Spent Total Floor Time (mins): 42 Face to Face Time (mins): 25 >50% Counseling/Coord of Care: Yes (d/w , and [facility] Anuradha) Attestation To help prompt me to consider important information that might be impacting today's encounter and assessment, information from prior notes written by myself or my colleagues may have been "brought forward" into today's note. My signature on this note, however, is an attestation that I personally performed the exam, history, and/or decision-making noted today, and, unless otherwise indicated, the interactions with patient, family, and staff as well as the review of records all occurred today. I also attest that the listed assessment and stated plan reflect my best clinical judgment today based on the combination of historical information, prior notes, and today's exam/ interactions. When time spent is documented, it refers only to time spent today by the signer, or if indicated, combined time spent today by collaborating physician/nurse practitioner. Dalila Edouard MD Nov 21, 2016 10:41
[2016-11-21] MEDS ORDERED: LORazepam 2 MG/ML VIAL IV PUSH PRN (10:45)
[2016-11-21] MEDS ORDERED: HYDROmorphone HCL PF 1 MG/ML VIAL IV PRN (11:00)
[2016-11-21] MEDS ORDERED: HYDROmorphone HCL PF 1 MG/ML VIAL IV PUSH PRN (12:00)
--- NOTE | 2016-11-21 14:22 | HHI.GIFU ---
Subjective Remarks Pt with shallow breathing, tachypnea, on partial rebreather mask. More lethargic than usual. D/W nurse, states she is a DNR and has been placed on Hospice care. (Rama Kauffman) Objective Vitals I&O Vital Signs Date Time Temp Pulse Resp B/P Pulse Ox O2 Delivery O2 Flow Rate FiO2 11/21/16 12:00 97.6 107 30 102/58 96 11/21/16 08:51 94 Partial Rebreather 12.00 11/21/16 08:00 99.3 113 29 100/57 95 11/21/16 04:51 90 Venturi Mask 50 11/21/16 04:22 100.1 100 25 91/50 89 11/21/16 02:30 100 100/52 11/21/16 01:30 90 86/60 11/21/16 00:00 99.0 100 22 86/48 90 11/20/16 22:00 Nasal Cannula 4.00 21 Humidified 11/20/16 20:00 116 11/20/16 20:00 98.6 115 24 106/56 90 11/20/16 17:31 103/49 11/20/16 15:53 97.3 72 20 103/57 95 11/20/16 15:49 95 Nasal Cannula 4.00 I/O 11/20/16 11/20/16 11/20/16 11/21/16 11/21/16 11/21/16 07:00 15:00 23:00 07:00 15:00 23:00 Intake Total 1198 ml 720 ml 1714 ml 1350 ml Output Total 250 ml 750 ml 750 ml 775 ml Balance 948 ml -30 ml 964 ml 575 ml Intake Oral 120 ml 720 ml 120 ml 120 ml IV Total 500 ml 750 ml TPN/PPN 906 ml 1094 ml 480 ml Lipid 172 ml Output Urine Total 250 ml 750 ml 550 ml 450 ml Stool Total 200 ml 325 ml Drainage Total 0 ml 0 ml 0 ml # Bowel Movements 0 Laboratory Laboratory Tests Test 11/20/16 11/21/16 11/21/16 14:44 05:30 06:03 Urine Color YELLOW Urine Turbidity HAZY Urine pH 5.5 Urine Specific [place] 1.015 Urine Protein 30 Urine Glucose (UA) NEG Urine Ketones NEG Urine Occult Blood MOD Urine Nitrite NEG Urine Bilirubin NEG Urine Urobilinogen LESS THAN 2.0 Urine Leukocyte Esterase MOD Urine RBC 4 Urine WBC 21 Urine Squamous Epithelial 1 Cells Urine Calcium Oxalate Crystals RARE Urine Bacteria FEW Urine Mucus FEW Microscopic Urinalysis Comment CATH-CULTURE IND Lactic Acid Level 1.2 White Blood Count 15.1 Red Blood Count 3.02 Hemoglobin 8.7 Hematocrit 27.3 Mean Corpuscular Volume 90.3 Mean Corpuscular Hemoglobin 28.7 Mean Corpuscular Hemoglobin 31.7 Concent Red Cell Distribution Width 18.1 Platelet Count 272 Mean Platelet Volume 9.8 Neutrophils (%) (Auto) 77.2 Lymphocytes (%) (Auto) 15.3 Monocytes (%) (Auto) 5.1 Eosinophils (%) (Auto) 1.4 Basophils (%) (Auto) 1.0 Neutrophils # (Auto) 11.7 Lymphocytes # (Auto) 2.3 Monocytes # (Auto) 0.8 Eosinophils # (Auto) 0.2 Basophils # (Auto) 0.1 CBC Comment DIFF FINAL Differential Comment Sodium Level 147 Potassium Level 4.1 Chloride Level 112 Carbon Dioxide Level 27.5 Anion Gap 8 Blood Urea Nitrogen 48 Creatinine 1.78 Estimat Glomerular Filtration 28 Rate Random Glucose 245 Calcium Level 10.8 Blood Gas Puncture Site RT RADIAL Blood Gas Patient Temperature 98.6 Blood Gas HCO3 24 Blood Gas Base Excess -0.5 Blood Gas Oxygen Saturation 82 Arterial Blood pH 7.37 Arterial Blood Partial 43 Pressure CO2 Arterial Blood Partial 53 Pressure O2 Arterial Blood Oxygen Content 12.6 Arterial Blood 1.8 Carboxyhemoglobin Arterial Blood Methemoglobin 0.9 Blood Gas Hemoglobin 10.9 Oxygen Delivery Device Venti Mask Blood Gas Inspired Oxygen 50 Date/Time Procedure Status Source Growth 11/20/16 15:02 Aerobic Blood Culture - Preliminary Resulted Blood Other NO GROWTH IN 1 DAY 11/20/16 15:02 Anaerobic Blood Culture - Preliminary Resulted Blood Other NO GROWTH IN 1 DAY 11/20/16 14:44 Urine Culture Received Urine Catheterized Urine Pending Imaging Last Impressions Chest X-Ray 11/21/16 0000 Signed Impressions: Service Date/Time: Monday, November 21, 2016 05:58 - CONCLUSION: Worsening left mid and basilar consolidation. Developing bilateral perihilar infiltrates. Calixto Woodruff MD PICC Line Insertion 11/10/16 0000 Signed Impressions: Service Date/Time: Thursday, November 10, 2016 17:07 - CONCLUSION: 1. Uncomplicated central venous Power PICC line placement. 2. The PICC line can be used immediately. Garrison Pascual MD Abdomen CT 11/01/16 0000 Signed Impressions: Service Date/Time: October 15:20 - CONCLUSION: No abnormalities are seen with respect to the liver or spleen. Previously noted small fluid collections adjacent to the small bowel loops within the right lower quadrant are no longer present. The configuration of the small bowel loops adjacent to the intra-abdominal wall at the site of mesh repair are consistent with areas of adhesion. No evidence of bowel obstruction.. Hoda Ash MD Abdomen/Pelvis CT 10/19/16 0000 Signed Impressions: Service Date/Time: September 15:10 - CONCLUSION: 1. There are 2 small rim-enhancing fluid collections in the right mid abdomen adjacent to the distal ileum that extends into the ileostomy. These measure 2.6 x 1.3 cm and 2.1 x 1.6 cm. These could represent infected fluid collections but are too small to place a drainage catheter. There is an additional small subcapsular fluid collection along the anterior left lobe of the liver. 2. Additionally, there is wall thickening of the distal ileal loops along with marked mesenteric edema. 3. There is a small volume of free fluid in the left upper quadrant around the spleen and in the pelvis. 4. There is a new small left pleural effusion with compressive atelectasis and right lower lobe volume loss versus airspace consolidation. Calixto Uriostegui MD Liver Ultrasound 07/12/16 0000 Signed Impressions: Service Date/Time: Tuesday, July 12, 2016 18:07 - CONCLUSION: 1. No acute abnormality demonstrated. 2. Heterogeneous liver without measurable mass. 3. Small and heterogeneous spleen without a measurable mass. 4. Cortical thinning and scarring of the right kidney. 5. Previous cholecystectomy. Calixto Woodruff MD Chest CT 07/09/16 0000 Signed Impressions: Service Date/Time: Saturday, July 09, 2016 14:43 - CONCLUSION: 1. Small right pleural effusion and minimal right basilar consolidation. 2. 6 mm left basilar nodule. Followup CT chest 6 months recommended. Florian Pepper MD Lower Extremity Ultrasound 06/25/16 0000 Signed Impressions: Service Date/Time: Saturday, June 25, 2016 15:56 - CONCLUSION: Negative exam with no evidence of deep venous thrombosis. Soft tissue edema. Mike Leija MD Port Line Insertion 06/20/16 0000 Signed Impressions: Service Date/Time: Monday, June 20, 2016 08:53 - CONCLUSION: Uncomplicated ultrasound and fluoroscopic guided implanted central venous port catheter placement as described in detail above. An 8 Yoruba Power port was placed. Kevan Salgado Jr., MD Physical Exam HEENT: Normocephalic; atraumatic; no jaundice. CHEST: Resp. shallow, mildly labored, tachypneic, diminished. Partial rebreather CARDIAC: RRR ABDOMEN: Soft, nondistended, tender; Ileostomy with small amount of greenish semi formed stool. Left sided colostomy with small amount of brown stool. Midline abdominal wound with wound vac. EXTREMITIES: Left BKA. Tender right foot SKIN: Generalized pallor MANAGER CARGO: Very lethargic. (Rama Kauffman) Assessment and Plan Plan ASSESSMENT: - Short gut syndrome with high stool output. 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 This was then complicated by development of enterocutaneous fistula, which she then underwent exploratory laparotomy with resection of the segment of the large bowel containing the anastomosis to the small bowel and the fistula, end ileostomy and mucous fistula colostomy creation and removal of segments of ventral hernia mesh placed at some point many years in the past. She has a wound vac to her midline abdominal wound. She has high stool output from the ileostomy, with 1850cc-5850cc of stool output daily. Stool studies negative. She is on TPN. GI was consulted for evaluation for possible Gattex. This would be a good option, but is very expensive, Each injection is $1,500 and the monthly cost would be $45,000 a month. It is not available at this facility and should not be initiated unless thisis something that could be continued at discharge. Spoke to Felicity perla , who spoke to [facility]. Pt is a difficult placement and the plan is for her to return to [facility] and they are currently holding her bed. However, they state that they will not be able to accept her back if she requires the Gattex. Cholestyramine, Lomotil, Octreotide. Stool output is improving. Monitor stool output. - Resp. Distress- On partial rebreather, tachypneic, shallow breathing, hypoxic. D/W nurse, DNR and has been placed on comfort measures Plan: - Pt has been placed on comfort care - GI will sign off, please reconsult as needed - Pt seen and examined by Dr. Cosme and myself and this note is written on his behalf (Rama Kauffman) Physician Comments Patient seen and examined Agree with above Continue with current supportive care Monitor labs We will sign off (James Cosme MD) Rama Kauffman Nov 21, 2016 14:22 James Cosme MD Nov 21, 2016 22:18
--- NOTE | 2016-11-21 15:38 | HHI.DS ---
Discharge Summary Admission Date Jun 14, 2016 at 14:10 Discharge Date: Nov 21, 2016 Admitting Diagnosis sepsis (1) Septic shock ICD Code: A41.9 Diagnosis: Principal (2) Acute hypoxemic respiratory failure ICD Code: J96.01 Diagnosis: Secondary (3) Ischemic colitis ICD Code: K55.9 Diagnosis: Secondary (4) COPD (chronic obstructive pulmonary disease) ICD Code: J44.9 Diagnosis: Secondary (5) depression Diagnosis: Secondary (6) Peripheral neuropathy ICD Code: G62.9 Diagnosis: Secondary (7) Chronic diastolic (congestive) heart failure ICD Code: I50.32 Diagnosis: Secondary (8) ZIA (acute kidney injury) ICD Code: N17.9 Diagnosis: Secondary (9) emergent Ex Lap for ischemic bowel/perforation 10/08/16 Diagnosis: Secondary (10) Acute blood loss anemia ICD Code: D62 Diagnosis: Secondary (11) Leukocytosis ICD Code: D72.829 Diagnosis: Secondary (12) Hypokalemia ICD Code: E87.6 Diagnosis: Secondary Procedures Left stump debridement by Dr. Hill on 06/15/16 Bedside debridement of preperitoneal fat that was protruding from the abdominal fistula 09/01/16 central line placement Exploratory laparotomy, resection of the anterior abdominal wall fistula tract, resection of the transverse colon to small bowel anastomosis, lysis of adhesions of the small bowel with repair of two enterotomies, right-sided ileostomy, left-sided mucous fistula and partial removal of a ventral hernia mesh. Brief History - From Admission The patient is a 70-year-old female with a medical history significant for ischemic bowel with resection and development of chronic enterocutaneous fistula , asthma, depression, COPD, severe peripheral vascular disease status post left BKA. The patient was discharged from the hospital on 06/06/16 to a longterm facility for rehabilitation. The stitches on the left stump were taken out 2 weeks ago. She reports that the wound has been opening up when she participated with physical therapy. She returned today due to wound dehiscence and infection. She was admitted by the vascular surgery service, Dr. Hill. Hospitalist service consulted for management of her complex medical issues noted above. The patient is seen in her room. She reports feeling anxious and requesting Xanax. She denies abdominal pain. She reports that the chronic enterocutaneous fistula is a lot smaller. Not draining as much. She denies any fevers. No shortness of breath or chest pain. CBC/BMP: 11/21/16 0530 11/21/16 0530 Significant Findings Laboratory Tests Test 11/18/16 11/19/16 11/20/16 11/20/16 21:40 06:00 06:00 14:44 Sodium Level 146 MEQ/L 146 MEQ/L 147 MEQ/L (136-145) (136-145) (136-145) Chloride Level 110 MEQ/L 110 MEQ/L 110 MEQ/L (98-107) (98-107) (98-107) Blood Urea Nitrogen 39 MG/DL (7-18) 39 MG/DL (7-18) 41 MG/DL (7-18) Creatinine 1.40 MG/DL 1.41 MG/DL 1.54 MG/DL (0.50-1.00) (0.50-1.00) (0.50-1.00) Estimat Glomerular Filtration 37 ML/MIN (>89) 37 ML/MIN (>89) 33 ML/MIN (>89) Rate Random Glucose 208 MG/DL 168 MG/DL 217 MG/DL (74-106) (74-106) (74-106) Calcium Level 11.0 MG/DL 11.0 MG/DL 11.2 MG/DL (8.5-10.1) (8.5-10.1) (8.5-10.1) White Blood Count 11.6 TH/MM3 18.1 TH/MM3 (4.0-11.0) (4.0-11.0) Red Blood Count 3.40 MIL/MM3 3.34 MIL/MM3 (4.00-5.30) (4.00-5.30) Hemoglobin 9.7 GM/DL 9.7 GM/DL (11.6-15.3) (11.6-15.3) Hematocrit 30.2 % 30.1 % (35.0-46.0) (35.0-46.0) Red Cell Distribution Width 18.2 % 18.3 % (11.6-17.2) (11.6-17.2) Neutrophils # (Auto) 8.0 TH/MM3 14.3 TH/MM3 (1.8-7.7) (1.8-7.7) Aspartate Amino Transf 274 U/L (15-37) (AST/SGOT) Alkaline Phosphatase 256 U/L (45-117) Albumin 1.9 GM/DL (3.4-5.0) Neutrophils (%) (Auto) 78.8 % (16.0-70.0) Potassium Level 3.2 MEQ/L (3.5-5.1) Urine Turbidity HAZY (CLEAR) Urine Protein 30 mg/dL (NEG-TRACE) Urine Occult Blood MOD (NEG) Urine Leukocyte Esterase MOD (NEG) Urine RBC 4 /hpf (0-3) Urine WBC 21 /hpf (0-5) Urine Calcium Oxalate Crystals RARE /hpf (NONE) Urine Bacteria FEW /hpf (NONE) Urine Mucus FEW /lpf (OCC) Test 11/21/16 11/21/16 05:30 06:03 White Blood Count 15.1 TH/MM3 (4.0-11.0) Red Blood Count 3.02 MIL/MM3 (4.00-5.30) Hemoglobin 8.7 GM/DL (11.6-15.3) Hematocrit 27.3 % (35.0-46.0) Mean Corpuscular Hemoglobin 31.7 % Concent (32.0-36.0) Red Cell Distribution Width 18.1 % (11.6-17.2) Neutrophils (%) (Auto) 77.2 % (16.0-70.0) Neutrophils # (Auto) 11.7 TH/MM3 (1.8-7.7) Sodium Level 147 MEQ/L (136-145) Chloride Level 112 MEQ/L (98-107) Blood Urea Nitrogen 48 MG/DL (7-18) Creatinine 1.78 MG/DL (0.50-1.00) Estimat Glomerular Filtration 28 ML/MIN (>89) Rate Random Glucose 245 MG/DL (74-106) Calcium Level 10.8 MG/DL (8.5-10.1) Blood Gas Oxygen Saturation 82 % (90-100) Arterial Blood pH 7.37 (7.380-7.420) Arterial Blood Partial 43 mmHg (38-42) Pressure CO2 Arterial Blood Partial 53 mmHg Pressure O2 (61-120) Blood Gas Hemoglobin 10.9 G/DL (12.0-16.0) PE at Discharge General: Chronically ill appearing female, appears very weak, in mild-to- moderate respiratory distress PERRL, pale conjunctivae, with spurring Heart: Tachycardic, no murmurs appreciated. Lungs: Tachypneic, decreased symmetrically, no crackles or wheezing. Abdomen: Ileostomy in place, dressings in place, wound VAC in place Extremities: No right lower extremity edema. Left BKA. Awake, alert, oriented to self,, not sure if oriented to time, whispering, moves extremities, positive for generalized weakness. Hospital Course Ms. iWlson is a pleasant 71 year old female who was admitted to the hospital in Oct 2015 due to ischemic bowel and subsequently underwent resection of large , small bowel and cholecystectomy. 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 Patient was discharged to SNF but returned to the hospital due to post surgical complications. She underwent left foot amputation and subsequently had a lot of post surgical complications requiring wound vac. Patient's hospital course was complicated with septic shock, ischemic bowel, endocarditis with sepsis, and possible fungemia. Patient was present antibiotics under the direction of infectious disease including an antifungal. Patient also acute respiratory failure secondary to hospital- acquired pneumonia and was intubated and eventually extubated in September. After extubation however patient continued to decline with worsening acute renal failure and malnutrition. continue to be critically ill and did not improve significantly hence the patient decided to go to hospice. Patient was discharged on hospice. Pt Condition on Discharge: Guarded Discharge Disposition: Hospice/ Home Discharge Time: > 30 minutes Discharge Instructions DIET: Follow Instructions for: As Tolerated, No Restrictions Activities you can perform: Continue Bedrest Chao Moore MD Nov 21, 2016 15:38
--- NOTE | 2016-11-21 16:32 | PD.CAR.PN ---
CVT Progress Note Subjective/Hospital Course: 70-year-old female with a complex medical and surgical history of peripheral vascular disease and multiple related problems presents now status post BK amputation about a month half ago. Patient went to fdc and apparently braced herself on the stump several times in bed in hit it against either floor or the chair not quite clear. Part of the stump opened up and at this point patient is dehiscence of skin deeper tissue seemed to be still intact. 06/16/16 Patient underwent yesterday debridement of the stump with wound VAC placement. The dehiscence is fortunately superficial involving skin and muscle in this as been debrided successfully while the rest of the tissues of bleeding and are viable. Wound VAC has been placed Cultures have been reviewed and antibiotics can be adjusted by medicine as appropriate We'll continue current care and patient should be able to go to fdc with a wound VAC by Sunday Patient's nutritional status is very poor with a low albumen and prealbumin level and therefore nutritional evaluation and recommendations are requested I believe the patient is not taking sufficient by mouth in the fdc and may need supplemental enteral or parenteral feedings at this point 06/17/16 I reviewed the nutritional parameters and patient's prealbumin and transferrin levels a critically low indicating severe malnutrition. Patient's healing is impaired and so is the rehabilitative potential. After reviewing to nutritional recommendations once these are made, we will decide whether patient needs an Ijabnb-z-Rdln placed for additional parenteral nutrition for short bowel syndrome Stump is nice and clean with minimal drainage from the wound VAC 06/19/16 Still awaiting nutritional consult and evaluation for patient has short gut syndrome and will probably need additional parenteral feedings. If so patient will need Nmawpy-w-Dtar placement for additional feedings Patient is taking excellent by mouth but despite that her nutritional status is poor and hence the healing issues Left BKA stump incision is clean and wound VAC is in place with minimal drainage and will need to be changed today Awaiting wound care to change the wound VAC. Infectious disease help is much appreciated 06/20/2016 Patient doing well at this time. Stump is clean and the wound VAC will be changed today Patient had Bvbuvx-l-Gmke placed by radiology for supplemental parenteral feedings. Grateful for the nutritional evaluation. Patient will be placed on TPN at about the 1500 non-protein calories a day split about 60-70% in glucose and about 30% in form of lipids Patient will likely have to be discharged on supplemental TPN in face of her short bowel syndrome 06/21/16 Patient is doing really well at this time She's taking good by mouth diet. 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 There is some granulation tissue which may eventually need to be debrided but at this point I would leave it alone. Stump wound VAC has been changed and this is clean and granulating nicely. Patient is currently on TPN which tolerating well. In face of her short bowel syndrome patient will need TPN after discharge from the hospital. Grateful to case management for making arrangements for the same 06/22/16 Vital signs stable patient is doing well. Her appetite has improved and patient is taking good by mouth diet and having regular bowel movements. The abdominal incision is completely healed and fistula has completely resolved. The BKA wound VAC has been changed and wound is clean and granulating nicely. Ldabqf-m-Eyol is being used for additional parenteral feedings necessary and short bowel syndrome and patient will be discharged on TPN. 06/23/16 Patient underwent today change of the wound VAC and the wound is clean. Next with will be the last wound VAC change and after that I plan to take the patient to the OR for irrigation and closure of the wound by the middle of the next week. 06/24/16 Patient doing very well at this time she is in a good mood and taking by mouth diet well Unfortunately due to the short bowel syndrome she need supplemental TPN feedings at this time Stump is healed nicely there is a small scab anterior to it and this should allow to fall off on its own Once the arrangements are made for outpatient TPN patient will be able to be discharged Awaiting case management to make the arrangements for outpatient TPN 06/25/16 Vital signs stable Patient is awake and alert and oriented, taking by mouth diet very well Abdomen is soft and the colocutaneous fistula is completely closed The BKA stump has an eschar and a scab but I would leave this alone because underneath its healing nicely. Patient remains on TPN considering the short gut syndrome and will go home on the same Mild anemia is dilutional due to TPN administration and intravenous fluids and does not require therapy at this time 06/26/16 Vital signs stable Patient is awake and alert and oriented, taking by mouth diet very well Abdomen is soft and the colocutaneous fistula is completely closed The BKA stump has an eschar and a scab but I would leave this alone because underneath its healing nicely. Patient remains on TPN considering the short gut syndrome and will go home on the same Mild anemia is dilutional due to TPN administration and intravenous fluids and does not require therapy at this time 06/27/16 Wound VAC has been removed by me and the the entire stump is healed very nicely except a small area but an inch length at the very lateral portion of the incision were we going to put a very small wound VAC on for another week or so. Patient can transfer to rehabilitation at any time as long as she can get intravenous TPN in the process 06/28/16 Wound VAC has been removed by me and the the entire stump is healed very nicely except a small area but an inch length at the very lateral portion of the incision were we going to put a very small wound VAC on for another week or so. 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 I understand the difficulty this creates for case management to find her such an arrangement 06/29/16 Patient doing really well at this time taking good by mouth but due to the short bowel syndrome will require long-term TPN Stump is healing really nicely and the probably after this week we will remove the wound VAC and simply place wet-to-dry dressing and allow this to heal 06/30/16 Patient is doing well tolerates diet. Abdomen is soft with active bowel sounds Incisions are clean and dry Wound VAC last change will be next week and after that we going to remove the wound VAC and continue wet-to-dry dressing Stump is healing really nicely Due to TPN and other issues placement remains a problem 07/01/16 Abdomen soft and active bowel sounds Tolerates diet well Stump is clean and dry and I'll remove the wound VAC on Sunday after that patient will just be on wet-to-dry dressings until the stump heels Arrangements for discharge to difficult due to long-term TPN needs 07/03/16 Vital signs stable Stump is clean and wound VAC after next removal won't need to be applied again Patient will remain long-term on TPN and I'm waiting for case management to make discharge arrangements Will [facility] medicine kindly if patient can be transferred to medicine service at this time 07/14/16 Patient is a placement issue apparently is still in the hospital The left BKA stump is healed nicely except for very small air about 1 cm which is granulating in on the lateral aspect of the stump Apparently the enterocutaneous fistula was close for about month and a half and opened up 2 days ago draining some stool It should be noted that the bowel is quite close to the skin and patient is very thin and malnourished so it is not surprising that fistula opens and closes sporadically. With enteral and parenteral nutrition that should close but clearly patient is very frail and it could open up any time Nothing to add to care at this time 07/26/16 Discussed the patient with medical attending. She has systemic cutaneous herpes zoster and is on appropriate medications The drainage from anterior abdominal wall is very minimal however irritating to the skin of the abdominal wall in face of herpes and the nature of intestinal fluid. Just putting dressings will only worsen the situation so patient should be treated with the stoma and coverage of the skin. Unfortunately the colostomy material will not stick to the skin and the contents will leak underneath it. At point is best solution was due to apply Silvadene ointment daily and then dressing Patient's appetite is very poor sure refuses food and she remains on TPN although her GI tract is completely patent Her prognosis in general is for due to malnutrition short bowel syndrome and immune failure. 09/01/16 Patient seen at [facility]. Patient has tremendously improved in the last month or so. The rash she had has since disappeared I am not sure this was a herpetic rash or perhaps caused by zinc or selenium deficiency At this point patient is eating well and she is again about 15 pounds. Her short bowel syndrome as being managed adequately with improvement of by mouth intake and modification of the diet Abdomen is soft with active bowel sounds and the fistula has closed There is small amount of preperitoneal fat extruding from the abdomen incision. I debrided this at the bedside In the worse case scenario patient would have to go to the operating room to have this cauterized away and reclosed but I would certainly like to avoid this in this lady was finally recovering nicely 11/20/16 Last night patient was straining when going to bathroom and enterocutaneous fistula opened up again Patient is now draining stool over the last 24 hours. 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 She underwent several surgeries and it is a miracle that patient has survived all this. The fistulous tract has now opened and closed about 5 times since September last year when patient's first came and this is now another instance of the same. As far as the fistulous tract is concerned this patient is not a candidate for an open surgery due to malnutrition, short bowel syndrome in the anatomic considerations. Going into this abdomen with resultant multiple fistulas, damage to the remaining small bowel and likely of the patient Therefore the appropriate way to manage this as conservatively filled the fistula tracts closes again Physical examination reveals skin inferior to the fistula to be starting to get red again and irritated although it was nicely healed as stated in above note It should be noted that this is distal small bowel content and therefore fairly caustic so meticulous care has to be taken not to allow this to be in contact with the skin On my arrival one part of the fistula in the midline is covered with a colostomy bag while the stool is freely draining all over the patient's abdomen between the legs and on the bed I went into the room ostomy nurse to come with me and removed personally everything cleaned patient up with nursing assistance I said down with the overnight houseperson and the nurse and explained in detail how this should be covered and how the stoma should be structured in order to protect the skin Apparently large pieces of stoma skin adhesive material are not available here and let to be brought from [facility]. The same large pieces were used when patient first came to [facility] and care was described in orders At this point meticulous care has to be taken in order to prevent skin damage and free leakage It is also imperative that the wound care gets involved in management of this patient 10/30/16 Patient had the spike a fever today to 101.8 White count 16,000 Abdomen is soft with active bowel sounds and ileostomy is working very well Bilateral breath sounds and no rhonchi or rales Wound VAC has been changed today and I'll look to the wound leg really looks nice and healing very nicely with good granulation tissue No signs of dehiscence I believe the fever spikes are part of the fungemia and unfortunately 30-50% of patients will develop systemic fungemia in this setting will succumb to the same despite maximum therapy Patient remains on micafungin Continue care 10/31/16 Abdomen is soft and active bowel sounds and incision is nice and granulating underneath the wound VAC Ileostomy working fine White count is coming down and patient hasn't had any fever spikes since placed on Diflucan and micafungin Unfortunately patient refuses to eat and also refuses to get out of bed Physical therapy and occupational therapy of trying to mobilize the patient but she will not cooperate She also refuses to take by mouth diet but drinks high caloric supplements at least Respiratory-gillette patient is doing well throughout the day and then 2 in the evening her sats started dropping to again improve later on Will order ABGs and perhaps do a CAT scan of the chest to assess for any effusions or any other possible causes for this Again patient is very ill with fungemia which carries high mortality and ICU patient's especially with immunosuppression accompanying the clinical picture 08/22/17 I today patient is doing okay She doesn't want to take any by mouth diet except high caloric supplements Abdomen is soft active bowel sounds ileostomy and colostomy clean and midline wound is healing nicely with a the wound VAC Bilateral breath sounds decreased over the both lung chaney consistent with bilateral pulmonary consolidation unlikely mu onset lower lobe pneumonia Patient is unwilling to get out of bed and does not participate in physical occupational therapy rather chased some out of the room Discussed the care with her staff air tactical officer Mrs. 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 Currently on amphotericin B and antibiotics Patient is refusing any by mouth diet and is refusing to get out of bed She will developed pneumonia and and up on the respirator again if she continues to refuse activity Midline incision wound VAC has been changed and appears to be clean and granulating nicely 11/07/16 Patient somewhat improved awake alert and oriented White count has normalized Abdomen is soft with active bowel sounds ileostomy working fine Midline incision is healing very well Patient refuses take by mouth diet except for occasional bites of something and ensure Nothing to add to care 11/08/16 Abdominal incision is clean and wound VAC is in place be changed tomorrow Ileostomy working fine Patient taking by mouth however refuses regular diet and only drinks fluids Remains afebrile at this time and infection seem to be under control Very hard to manage as far as physical therapy is concerned because patient refuses to get out of bed or participate in any therapy Have tried to explain to her the importance of physical therapy in order to get her back on her feet regain strength and mobilize as well as as a means to prevent pneumonia but patient will not get out of bed 11/13/16 Ileostomy is nice and clean working fine Unfortunately ileostomy bag got disconnected and the fluid leaked into the midline incision secondary closure site Therefore the wound VAC have to be removed wound washed and replaced It's quite difficult to protect the wounds in this situation where patient's abdomen so tiny that all the structures a sort of in close proximity I've discussed this with the wound care nurse and she was kind to change her wound VAC today Patient finally at half of her breakfast and half of her lunch today which is actually an improvement and I am happy that patient is eating more 11/14/16 All studies have normalized and cultures remain negative Patient started to take little more by mouth Abdomen is soft and ileostomy is working well The colostomy bag broke open yesterday and everything contents spilled over the midline incision according to the nurse At this point patient clearly does not need a wound VAC other than for the purposes of protecting the incision for the ileostomy and colostomy bag are leaking each time these are attached to the patient for some reason, so the only way to protect the wound at this time is with wound VAC Other than that wound is healing nicely Mac I would prefer patient not to have the wound VAC and the colostomy back to be properly applied rather than leaking every time 11/15/16 Vital signs stable Patient is awake alert and oriented Had little food today but generally refuses to eat more than a few bites Tolerates supplement feeds but will not take much of those either Abdomen is soft The midline incision is almost healed and the wound VAC has been placed mainly to protect the wound from spillage from the ileostomy while its healing It should be noted that patient's the creatinine has gone up a little bit and this is not quite clear as far as the cause for patient's well hydrated The antibiotic therapy and amphotericin would clearly be the first culprits to take on as far as the creatinine increase In addition patient has increased calcium level and even corrected calcium is high sodium order PTH level to assess for hyperparathyroidism which would not be very unusual in this situation 11/16/16 Patient doing very well at this time considering the complexity of her care Midline incision is clean and granulating nicely with a tiny wound VAC over it Well-functioning ileostomy and colostomy All the cultures are coming back negative and expert ID help and input from Dr. Carlos is greatly appreciated Patient had several days of elevated calcium level and PTH has been checked which is normal This may be due to excessive administration of calcium-containing products and calcium is coming back to normal now Patients who are sedated sure and bedridden will tend to have higher levels of calcium considering that sedation state will lead to osteoclastic activity and will certainly not promote osteoblastic activity Patient should probably transfer to [facility] at this time for long-term care 11/18/16 Patient is doing much better Finally taking some by mouth diet however small amounts Incision is clean and wound VAC changes are carried out on Sunday and I believe after the next removal on Sunday patient will not need wound VAC anymore as long as we can make the ileostomy adhere so he doesn't leak into the wound All cultures are negative Nothing to add to care but patient will need extensive rehabilitation She refuses physical therapy for most part and refuses to get out of bed 11/19/16 Incision is clean and dry and wound VAC strip is not draining anything Colostomy and ileostomy working well Patient feels nauseous today and week doesn't want to take anything by mouth except shakes Us to get out of bed but doesn't want to get out of bed or the chair All cultures lately negative thanks to great work of the infectious disease specialists Again patient is very weak and refuses solid foods and physical therapy but otherwise with no sources of infection Abdomen is completely benign at this point and there are no more abdominal issues to be addressed 11/20/16 Patient appears to be very weak today Refuses by mouth intake and appears very depressed All cultures are negative but patient still could have underlying endocarditis or fungemia Antibiotics were started by ID Patient just appears to be giving up and appears to be very weak Refuses to work with physical therapy and simply is despondent Agree with medical approach restarting on antibiotics and I ordered an 2-D echo to evaluate for any possible cardiac problems including cardiac failure Lab studies appeared to be okay but patient is simply declining and appears ill 11/21/16 Patient currently in functional decline Bilateral pulmonary infiltrates with bilateral pneumonia Patient is on face mask and currently DNR so she will not be intubated Discussed with hospice and palliative care were discussed the situation with Anuradha her staff air tactical officer as well as her I've discussed it also with Anuradha and her and the at this point unfortunately there is not much more we can do Patient received maximum therapy for a long time and she is immunocompromised and with bilateral pneumonia of the chances of recovery are minimal to nonexistent Patient will be transferred to hospice today Objective: Vital Signs Date Time Temp Pulse Resp B/P Pulse Ox O2 Delivery O2 Flow Rate FiO2 11/21/16 16:00 99.0 102 27 98/64 94 11/21/16 15:13 94 Partial Rebreather 15.00 11/21/16 12:00 97.6 107 30 102/58 96 11/21/16 08:51 94 Partial Rebreather 12.00 11/21/16 08:00 99.3 113 29 100/57 95 11/21/16 04:51 90 Venturi Mask 50 11/21/16 04:22 100.1 100 25 91/50 89 11/21/16 02:30 100 100/52 11/21/16 01:30 90 86/60 11/21/16 00:00 99.0 100 22 86/48 90 11/20/16 22:00 Nasal Cannula 4.00 21 Humidified 11/20/16 20:00 116 11/20/16 20:00 98.6 115 24 106/56 90 11/20/16 17:31 103/49 Labs: Laboratory Tests Test 11/21/16 11/21/16 05:30 06:03 White Blood Count 15.1 TH/MM3 (4.0-11.0) Red Blood Count 3.02 MIL/MM3 (4.00-5.30) Hemoglobin 8.7 GM/DL (11.6-15.3) Hematocrit 27.3 % (35.0-46.0) Mean Corpuscular Volume 90.3 FL (80.0-100.0) Mean Corpuscular Hemoglobin 28.7 PG (27.0-34.0) Mean Corpuscular Hemoglobin 31.7 % Concent (32.0-36.0) Red Cell Distribution Width 18.1 % (11.6-17.2) Platelet Count 272 TH/MM3 (150-450) Mean Platelet Volume 9.8 FL (7.0-11.0) Neutrophils (%) (Auto) 77.2 % (16.0-70.0) Lymphocytes (%) (Auto) 15.3 % (9.0-44.0) Monocytes (%) (Auto) 5.1 % (0.0-8.0) Eosinophils (%) (Auto) 1.4 % (0.0-4.0) Basophils (%) (Auto) 1.0 % (0.0-2.0) Neutrophils # (Auto) 11.7 TH/MM3 (1.8-7.7) Lymphocytes # (Auto) 2.3 TH/MM3 (1.0-4.8) Monocytes # (Auto) 0.8 TH/MM3 (0-0.9) Eosinophils # (Auto) 0.2 TH/MM3 (0-0.4) Basophils # (Auto) 0.1 TH/MM3 (0-0.2) CBC Comment DIFF FINAL Differential Comment Sodium Level 147 MEQ/L (136-145) Potassium Level 4.1 MEQ/L (3.5-5.1) Chloride Level 112 MEQ/L (98-107) Carbon Dioxide Level 27.5 MEQ/L (21.0-32.0) Anion Gap 8 MEQ/L (5-15) Blood Urea Nitrogen 48 MG/DL (7-18) Creatinine 1.78 MG/DL (0.50-1.00) Estimat Glomerular Filtration 28 ML/MIN (>89) Rate Random Glucose 245 MG/DL (74-106) Calcium Level 10.8 MG/DL (8.5-10.1) Blood Gas Puncture Site RT RADIAL Blood Gas Patient Temperature 98.6 Blood Gas HCO3 24 mmol/L (22-26) Blood Gas Base Excess -0.5 mmol/L (-2-2) Blood Gas Oxygen Saturation 82 % (90-100) Arterial Blood pH 7.37 (7.380-7.420) Arterial Blood Partial 43 mmHg (38-42) Pressure CO2 Arterial Blood Partial 53 mmHg Pressure O2 (61-120) Arterial Blood Oxygen Content 12.6 Vol % (12.0-20.0) Arterial Blood 1.8 % (0-4) Carboxyhemoglobin Arterial Blood Methemoglobin 0.9 % (0-2) Blood Gas Hemoglobin 10.9 G/DL (12.0-16.0) Oxygen Delivery Device Venti Mask Blood Gas Inspired Oxygen 50 % Result Diagram: 11/21/16 0530 11/21/16 0530 Janice Olvera MD Nov 21, 2016 16:32
--- NOTE | 2017-01-22 15:06 | MP ---
cc: JANICE JOSE MD DATE OF SURGERY: 06/15/2016 PREOPERATIVE DIAGNOSIS Fall on a BKA stump, dehiscence of the BKA stump status post fall. POSTOPERATIVE DIAGNOSIS Fall on a BKA stump, dehiscence of the BKA stump status post fall. OPERATIVE PROCEDURE Debridement of stump and a wound vac placement. HISTORY OF PRESENT DISEASE This pleasant 70-year-old lady with multiple medical problems underwent BKA amputation for gangrenous foot about a month and a half ago. The patient went to the correction and then hit stump against the floor and a chair several times and braced on it, so the whole thing fell open. The stump dehisced from skin into deeper tissues. The patient is therefore taken to the operating room. SURGEON Dr. Jose. ANESTHESIA General. ESTIMATED BLOOD LOSS About 40 ccs. PROCEDURE The patient was prepped and draped in usual fashion and the stump observed. There is lateral portion of the stump which is completely dehisced, there are soft tissues visible. The skin is debrided sharply with a 10 blade and then underlying tissues are visualized. Some of the muscle appears to be sort of grungy and devitalized, this is debrided as well, together with subcutaneous fat which is very little of it because the patient is fairly thin. Bone is protected with muscle layer coverage so this is not exposed. The area is now irrigated with copious amounts of saline and meticulous hemostasis obtained. All the tissue is now clean and viable. Wound vac is applied. The patient tolerated the procedure well. Janice MÉNDEZ/TLL /11:22 AM /2:57 PM
== END 2016-11-21 19:15 | disposition hospice, inpatient (51) | DRG 500 ==
LOC: UNDOADMIN 14:10 → N04B 14:10 → N04A 07-19 18:10 → PH5A 08-17 14:41 → PHICU 10-08 12:01 → N03B 10-08 14:35 → N07B 11-07 01:43
PROVIDERS: ADMIT Hospitalist; ATTEND Hospitalist
PROC: 0D1B0Z4 Bypass Ileum to Cutaneous, Open Approach (ICD-10-PCS; 2016-06-15)
PROC: 0WJP0ZZ Inspection of Gastrointestinal Tract, Open Approach (ICD-10-PCS; 2016-06-15)
PROC: 0WBF0ZZ Excision of Abdominal Wall, Open Approach (ICD-10-PCS; 2016-06-15)
PROC: 0DQ80ZZ Repair Small Intestine, Open Approach (ICD-10-PCS; 2016-06-15)
PROC: 0DBB0ZZ Excision of Ileum, Open Approach (ICD-10-PCS; 2016-06-15)
PROC: 0DBL0ZZ Excision of Transverse Colon, Open Approach (ICD-10-PCS; 2016-06-15)
PROC: 0JDM0ZZ Extraction of Left Upper Leg Subcutaneous Tissue and Fascia, Open Approach (ICD-10-PCS; principal; 2016-06-15 10:37)
PROC: 05HN33Z Insertion of Infusion Device into Left Internal Jugular Vein, Percutaneous Approach (ICD-10-PCS; 2016-06-20)
PROC: 0HB1XZX Excision of Face Skin, External Approach, Diagnostic (ICD-10-PCS; 2016-07-24)
PROC: 5A1935Z Respiratory Ventilation, Less than 24 Consecutive Hours (ICD-10-PCS; 2016-10-08)
PROC: 0D1L0Z4 Bypass Transverse Colon to Cutaneous, Open Approach (ICD-10-PCS; 2016-10-08)
PROC: 30233K1 Transfusion of Nonautologous Frozen Plasma into Peripheral Vein, Percutaneous Approach (ICD-10-PCS; 2016-10-08)
PROC: 30233N1 Transfusion of Nonautologous Red Blood Cells into Peripheral Vein, Percutaneous Approach (ICD-10-PCS; 2016-10-08)
PROC: 0HC7XZZ Extirpation of Matter from Abdomen Skin, External Approach (ICD-10-PCS; 2016-10-08)
PROC: 05PYX3Z Removal of Infusion Device from Upper Vein, External Approach (ICD-10-PCS; 2016-10-22)
PROC: 05H533Z Insertion of Infusion Device into Right Subclavian Vein, Percutaneous Approach (ICD-10-PCS; 2016-10-22)
PROC: 05H633Z Insertion of Infusion Device into Left Subclavian Vein, Percutaneous Approach (ICD-10-PCS; 2016-11-03)
DX: T87.44 Infection of amputation stump, left lower extremity (principal); K63.1 Perforation of intestine (nontraumatic); R65.21 Severe sepsis with septic shock; K55.021 Focal (segmental) acute infarction of small intestine; I33.0 Acute and subacute infective endocarditis; A41.9 Sepsis, unspecified organism; J96.01 Acute respiratory failure with hypoxia; J96.02 Acute respiratory failure with hypercapnia; K63.2 Fistula of intestine; I13.0 Hypertensive heart and chronic kidney disease with heart failure and stage 1 through stage 4 chronic kidney disease, or unspecified chronic kidney disease; E43 Unspecified severe protein-calorie malnutrition; J18.9 Pneumonia, unspecified organism; N17.9 Acute kidney failure, unspecified; K91.2 Postsurgical malabsorption, not elsewhere classified; F33.2 Major depressive disorder, recurrent severe without psychotic features; D62 Acute posthemorrhagic anemia; E87.4 Mixed disorder of acid-base balance; I50.32 Chronic diastolic (congestive) heart failure; N39.0 Urinary tract infection, site not specified; B36.9 Superficial mycosis, unspecified; J44.9 Chronic obstructive pulmonary disease, unspecified; Y83.5 Amputation of limb(s) as the cause of abnormal reaction of the patient, or of later complication, without mention of misadventure at the time of the procedure; J45.909 Unspecified asthma, uncomplicated; R32 Unspecified urinary incontinence; F41.9 Anxiety disorder, unspecified; T87.81 Dehiscence of amputation stump; I73.9 Peripheral vascular disease, unspecified; K21.9 Gastro-esophageal reflux disease without esophagitis; K43.9 Ventral hernia without obstruction or gangrene; B96.1 Klebsiella pneumoniae [K. pneumoniae] as the cause of diseases classified elsewhere; B37.3 Candidiasis of vulva and vagina; E87.6 Hypokalemia; Y95 Nosocomial condition; N18.9 Chronic kidney disease, unspecified; E83.42 Hypomagnesemia; B95.7 Other staphylococcus as the cause of diseases classified elsewhere; R91.1 Solitary pulmonary nodule; Z80.3 Family history of malignant neoplasm of breast; Z85.3 Personal history of malignant neoplasm of breast; Z51.5 Encounter for palliative care; E11.65 Type 2 diabetes mellitus with hyperglycemia; R19.7 Diarrhea, unspecified; B37.9 Candidiasis, unspecified; K14.0 Glossitis; Z87.891 Personal history of nicotine dependence; Z86.718 Personal history of other venous thrombosis and embolism; R25.1 Tremor, unspecified; H01.006 Unspecified blepharitis left eye, unspecified eyelid; I05.9 Rheumatic mitral valve disease, unspecified; G62.9 Polyneuropathy, unspecified; E83.51 Hypocalcemia; K57.30 Diverticulosis of large intestine without perforation or abscess without bleeding; Z66 Do not resuscitate; D89.9 Disorder involving the immune mechanism, unspecified; E83.52 Hypercalcemia; E11.22 Type 2 diabetes mellitus with diabetic chronic kidney disease; E86.0 Dehydration; B96.4 Proteus (mirabilis) (morganii) as the cause of diseases classified elsewhere; E83.39 Other disorders of phosphorus metabolism; E87.5 Hyperkalemia; I25.10 Atherosclerotic heart disease of native coronary artery without angina pectoris; L98.8 Other specified disorders of the skin and subcutaneous tissue; Z88.0 Allergy status to penicillin; Z90.11 Acquired absence of right breast and nipple; Z79.2 Long term (current) use of antibiotics; R13.10 Dysphagia, unspecified; E87.70 Fluid overload, unspecified
CPT/HCPCS: 36430; 36556; 36561; 36569; 36600; 71010; 71020; 71250; 74160; 74177; 76705; 76937; 77001; 80048; 80053; 80076; 80202; 80329; 81001; 82565; 82607; 82652; 82805; 82948; 83036; 83605; 83690; 83735; 83970; 84100; 84132; 84134; 84155; 84207; 84252; 84425; 84443; 84466; 84478; 84590; 84630; 85007; 85025; 85027; 85384; 85610; 85730; 86403; 86850; 86900; 86901; 86920; 86927; 87015; 87040; 87045; 87046; 87070; 87071; 87077; 87086; 87102; 87103; 87106; 87116; 87176; 87184; 87186; 87205; 87206; 87427; 87493; 87529; 87641; 87899; 88305; 88307; 88312; 93005; 93306; 93308; 93971; 94002; 94003; 94150; 94640; 94664; C1751; C1788; C9113; C9132; G0479; J0131; J0133; J0153; J0171; J0289; J0461; J0692; J0695; J0696; J0713; J1170; J1335; J1450; J1580; J1642; J1644; J1650; J1815; J1940; J2020; J2060; J2185; J2248; J2250; J2270; J2354; J2370; J2405; J2550; J3010; J3370; J3475; J3480; J7030; J7040; J7050; J7120; P9016; P9017; P9045; Q9963; Q9967